=== PATIENT | male | born 1960 | race Caucasian/White ===

== ENCOUNTER 2022-02-12 12:23 | Outpatient (CLI) | payer MEDICAID, SELFPAY ==
--- OUTSIDE RECORDS SUMMARY | 2022-03-26 21:32 | XMS_ITS | Clinical Summary ---
:1960 Author Organization [facility] Address [address] [place] [id number] Care Team Providers Name Role Phone Marydebra Denise Watson PA-C Unavailable [phone] Juan Farias MD Primary Care Provider Dana Barry PA-C Unavailable [phone] Allergies Active Allergy Reactions Severity Noted [...] 1 tablet by 0 Active mouth daily [id number] Take 1 tablet by 0 Active it [...] ype Group Dates [place] [id number] 2021-Pres [phone] [address] [address] Medicaid ent 00 [place] [id number] ([address]) [place] [id number] Advance Directives For more information, please contact: [phone] Latest Code Status on File Code Status Date Activated Date Inactivated Comments Full Code 12/04/2021 3:46 PM 2021 1:02 PM All basic an d advanced life-sustaining interventions are performed as alexandru ropriate Question Answer Comments Code status determined by: Discussion with patient/ legal de cision maker Care Teams Tank 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
--- OUTSIDE RECORDS SUMMARY | 2022-03-26 21:32 | XMS_ITS | Encounter Summary ---
:1960 Author Organization [facility] Address [address] [place] [address] Care Team Providers Name Role Phone Denise Connell PA-C Unavailable [phone] Denise Connell PA-C Unavailable Juan Farias MD Primary Care Provider Reason for Visit Reason Comments Chest Pain Auth/Cert Specialty Diagnoses / Procedures Referred By Contact Refer red To Contact Med Surg Diagnoses Alcoholic ketoacidosis Alcoholic ketoacidosis 5 Medical Surgical [address] [place], [place] [address] Phone: Fax: Referral ID Status Reason Start Date Expiration Date Visits Requ ested Visits Authorized [id number] 1 1 Encounter Details Date Type Department Care Team Description 12/04/2021 - [facility] Jason Orozco MD [facility] [address] [place] [address] Alcoholic gastritis without bleeding, un specified chronicity (Primary Dx); 2021 Encounter [facility] Rodger Mantilla MD [address] [place] [address] Alcoholic ketoacidosis; Surgical Sprain of left ankle, unspec ified ligament, initial encounter [address] [place] [phone] Social History Tobacco Use Types Packs/Day Years [...] Ceballos MD - 2021 9:19 AM CDT [facility] Discharge Summary Name: Juan Pablo Brown Date of : 1960 Age: [age] year old Date of Discharge: 2021 Date of Admission: 12/04/2021 Primary Care Provider: Juan Farias Discharge Physician: Ronnie Ceballos MD Discharging Service: Hospitalist Hospital Course/Discharge Diagnoses: Juan Pablo Brown is a 60 year old male with past medical history including alcohol abuse, hypertension, hypercholesteremia who presented to [facility] on 12/04/2021 with abdominal pain associated with [...] your medicines These medications were sent to [facility] [address] [address] ?? omeprazole [address] capsule Some [...] EXAM: CT ABDOMEN PELVIS W CONTRAST LOCATION: [facility] DATE/TIME: 12/04/2021 9:52 AM INDICATION: abdominal [...] Take 81 mg by mouth 0 daily Iqlhgowjj-Typkjabrdsa-Pcs Take 1 tablet by 0 D (OSTEO [...] with mobility and cares and works making [email or web address] General Information Onset of Illness/Injury or Date of Surgery 12/04/21 Referring Physician Rodger Mantilla MD Patient/Family Therapy Goals Statement (PT) return home with parents Pertinent History of Current Problem (include personal factors and/or comorbidities that impact the POC) per chart: 60 year old male with past medical history including alcohol abuse, hypertension, hypercholesteremia who presented to [facility] on 12/04/2021 with abdominal pain associatedwith nausea [...] 11:09 AM CDT Hospitalist Medicine Progress Note [facility] Kelvin Ceballos MD 12/07/2021 Juan Pablo Brown is a 60 year old male with past medical history including alcohol abuse, hypertension, hypercholesteremia who presented to [facility] on 12/04/2021 with abdominal pain associated with [...] Patient . Kelvin Ceballos MD Hospitalist Service [facility] Interval History I assumed care today, still [...] Left ankle tender laterally with inward rotation FREIGHT CONDUCTOR: Alert, Oriented x 3, Moving all the [...] - pt will take a taxi to [place] [address] in [place] where his car is. Private pay costs [...] available as needed until discharge. ELVA Conklin, [facility] Inpatient Care Coordination [facility] [phone], LD - 12/06/2021 9:30 [...] home: regular diet - Typical food/fluid intake [employer]: pt reports being unable to consume much for the past 1 week, endorses nausea and vomiting and inability to consume even water for the past 2-3 days [employer]. - Supplements: none - Chewing/swallowing difficulty: none [...] Dosing Weight 83.2 kg Estimated Energy Needs: 7217-9465 kcals (25-30 Kcal/Kg) Justification: maintenance Estimated Protein [...] [address] RD, ELLIOTT Clinical Dietitian 3rd floor/ICU: [phone] All other floors: [phone] Weekend/holiday: [phone] Office: [phone] Rodger Mantilla MD - 12/05/2021 12:23 PM CDT Hospitalist Medicine Progress Note [facility] Juan Pablo Brown is a 60 year old gentleman with alcohol abuse, hypertension, hypercholesteremia whocame in with abdominal pain associated with nausea and vomiting and was diagnosed with acute pancreatitis with elevated lipase of 411 CT scan showing thickness of the visualized distal esophagus, stranding around the pancreatic head public health representative of acute pancreatitis. There was diffuse [...] discomfort ECG shows changes nonspecific for acute IN nevertheless there is progressive loss of R [...] Patient . Rodger Mantilla MD Hospitalist Service [facility] Interval History Symptoms Patient's abdominal pain is [...] decreased LOWER LIMBS: no Pedal Edema Bilaterally FREIGHT CONDUCTOR: Alert, Oriented x 3, Moving all the [...] Mantilla MD - 12/04/2021 10:[address] [facility] History and Physical - Hospitalist Service Date [...] discomfort ECG shows changes nonspecific for acute IN nevertheless there is progressive loss of R [...] the Patient. Rodger Mantilla MD Hospitalist Service [facility] Securely message with the [employer] Console (learn more here) Text page via [employer] Paging/Directory Chief Complaint Chest and abdominal pain [...] Prescriptions Last Dose Informant Patient Reported? Taking? Tjcrbwpwo-Aenmyymfoqz-Zip D (OSTEO BI-FLEX ONE PER DAY PO) [...] Positive LOWER LIMBS: no Pedal Edema Bilaterally FREIGHT CONDUCTOR: Alert, Oriented x 3, Moving all the [...] EXAM: CT ABDOMEN PELVIS W CONTRAST LOCATION: [facility] DATE/TIME: 12/04/2021 9:52 AM INDICATION: abdominal [...] Communication Assessment Patient's communication style: spoken language (Malay or Bilingual) Hearing Difficulty or Deaf: no [...] Status: Current Concern Values/Beliefs: Spiritual, Cultural Beliefs, Anabaptism Practices, Values that affect care: Additional Information: Met with pt to introduce self/role. Pt reports he has BCBS through his previous employer [employer]? He did not have any insurance cards with him for me to verify. But then he also mentioned he would need to contact [facility] to pay for this hospital stay, even though he is reporting he does not receive any services through the [facility]. I LVM for financial counselors to look [...] SW if other needs/cocnerns arise. Miriam STEVENSON, [facility] Inpatient Care Coordination [facility] [phone] documented in this encounter ED Notes Saira Tapia RN - 12/04/2021 10:36 AM CDT [facility] ED Nurse Handoff Report Juan Pablo Brown is a 60 year old male ED Chief complaint: Chest Pain . ED Diagnosis: Final diagnoses: Alcoholic ketoacidosis Allergies: Allergies Allergen Reactions ??? Lisinopril Kidney dysfunction and hyperkalemia Code Status: Full Code Activity level - Baseline/Home: Independent. Activity Level - Current: Stand by Assist. Lift room needed: No. Bariatric: No Director [place] [employer] Needed: No Isolation: No. Infection: Not Applicable. [...] his baseline. Emesis x2 days. Stay at [facility] 6. EKG SR. 4 mg ODT zofran [...] shortness of breath. He stays at a [facility] 6. EMS gave him Jackie. Review of Systems Respiratory: Negative for shortness of breath. Cardiovascular: Positive for chest pain. Gastrointestinal: Positive for abdominal distention and vomiting. All other systems reviewed and are negative. Allergies: Lisinopril Medications: amLODIPine (NORVASC) 10 MG tablet aspirin 81 MG tablet atorvastatin (LIPITOR) 40 MG tablet Vdffrjyti-Wfyqadctuhi-Npd D (OSTEO BI-FLEX ONE PER DAY PO) [...] Pressure Ventricular Rate 119 Atrial Rate 117 UT Interval 122 QRS Duration 94 QT 328 QTc 461 P Isle 35 R AXIS -19 T Isle 77 Interpretation ECG Sinus tachycardia with frequent [...] Outcome Evaluation: Assumed care of pt from 1723-9656. AVSS. A&Ox4. Apical pulse regular. Lungs CTA. [...] Pertinent assessments: Assumed care of pt from 7205-5395. AVSS. A&Ox4. Apical pulse regular. Lungs CTA. [...] goal(s). See goals on Care Plan in [facility] electronic health record for goal details. Goals [...] Pertinent assessments: Assumed care of pt from 6147-8881. VSS. A&O but forgettful. Apical pulse regular. [...] even water for the past 2-3 days [employer]. Plan to follow peripherally for diet advancement. Kenzie Real. CORRINE [place], [place] Clinical Dietitian 3rd floor/ICU: [phone] All other floors: [phone] Weekend/holiday: [phone] Office: [phone] Plan of Care - Kassandra Gillette RN [...] distal esophagus, stranding around the pancreatic head public health representative of acute pancreatitis. Patient requires inpatient [...] section 70.4. Sincerely, NOA CHAPARRO MD System Solar Installation ManagerBiochemistry Teacher [facility]. Plan of Care - Kassandra Gillette [...] withdrawal. Pharmacy-Admission Medication History - Debbie Alicea [facility] - 12/04/2021 5:27 PM CDT Admission medication history interview status for this patient is complete. See [facility] admission navigator for allergy information, prior to admission medications and immunization status. Medication history interview done, indicate source(s): Patient Medication history resources (including written lists, pill bottles, clinic record):None Pharmacy: [facility] pharmacy Changes made to [employer] medication list: Added: none Changed: omeprazole Reported as Not Taking: none Removed: magnesium Actions taken by pharmacist (provider contacted, etc):None Additional medication history information:None Medication reconciliation/reorder completed by provider prior to medication history? Y (Y/N) Prior to Admission medications Medication Sig Last Dose Taking? Auth Provider Fdc End Date amLODIPine (NORVASC) 10 MG tablet [...] Unknown time Yes Denise Connell PA-C Yes Cqgvczybp-Eqruxyeqhyz-Tha D (OSTEO BI-FLEX ONE PER DAY PO) [...] Address City/[facility]/[place] [phone] Care Lab [address] Lab (1st floor, no room number) [...] Organization Address City/State/[place] [address] Care Lab [address] Lab (1st floor, no room number) [...] Address City/State/ZIP Code [place] [address] Care Lab [address] Lab (1st floor, no room number) [...] Address City/[facility]/ZIP Code [place] [address] Care Lab [address] Lab (1st floor, no room number) [...] Address City/State/ZIP Code [place] [phone] Care Lab [address] Lab (1st floor, no room number) (ABNORMAL) CBC with platelets (12/07/2021 5:37 AM CDT) [facility] gist Method Time Signature WBC [...] Address City/State/ZIP Code [place] [phone] Care Lab [address] Lab (1st floor, no room number) (ABNORMAL) Comprehensive metabolic panel (12/07/2021 5:37 AM CDT) [facility] Method Time Signature Sodium 135 (L) [...] and gender (Yuli et al., NEJM, DOI: 10.1056/[id number]) Specimen Anatomical Collection Method / Collection Time Recei rehana Time (Source) Location / Volume Laterality Blood STRUCTURE OF LEFT Venipuncture / 12/07/2021 5:37 12/07 5:43 UPPER LIMB / Unknown AM CDT AM CDT Unknown Rodger Mantilla MD LAB - BLOOD ORDERABLES Performing Organization Address City/[facility]/Z[place] [address] Care Lab [address] Lab (1st floor, no room number) [...] Address City/[facility]/[place] [address] Care Lab [address] Lab (1st floor, no room number) [...] Address City/[facility]/[place] [address] Care Lab [address] Lab (1st floor, no room number) [...] Address City/State/ZIP Code [place] [address] Care Lab [address] Lab (1st floor, no room number) [...] Address City/State/ZIP Code [place] [address] [facility] [address] [facility], no room number) (ABNORMAL) [...] and gender (Yuli et al., NE, DOI: 10.1056/[id number]) Specimen Anatomical Collection Method / Collection Time Recei rehana Time (Source) Location / Volume Laterality Blood STRUCTURE OF RIGHT Venipuncture / 12/06/2021 6:26 11/22 7:05 HAND / Unknown Unknown AM CDT AM CDT Rodger Mantilla MD LAB - BLOOD ORDERABLES Performing Organization Address City/State/[place] [address] Care Lab [address] Lab (1st floor, no room number) [...] Organization Address City/State/ZIP Code Phon e Number [facility] [place] [address] Care Lab [address] Lab (1st floor, no room number) [...] Address City/[facility]/ZIP Code [place] [address] Care Lab [address] Lab (1st floor, no room number) [...] Address City/State/ZIP Code [place] [address] Care Lab [address] Lab (1st floor, no room number) [...] Address City/[facility]/[place] [address] Care Lab [address] Lab (1st floor, no room number) [...] Address City/[facility]/[place] [address] Care Lab [address] Lab (1st floor, no room number) [...] Address City/[facility]/[place] [address] Care Lab [address] Lab (1st floor, no room number) [...] BLOOD ORDERABLES Performing Organization Address City/[facility]/ZIP [facility] [place] [address] Care Lab [address] Lab (1st floor, no room number) [...] - BLOOD ORDERABLES Performing Organization Address [facility] [place] [address] Care Lab [address] Lab (1st floor, no room number) [...] Address City/[facility]/ZIP Code [place] [address] Care Lab [address] Lab (1st floor, no room number) (ABNORMAL) CBC with platelets (12/05/2021 6:51 AM CDT) [facility] Method Time Signature WBC Count 7.0 [...] Address City/State/ZIP Code [place] [address] Care Lab [address] Lab (1st floor, no room number) (ABNORMAL) Comprehensive metabolic panel (12/05/2021 6:51 AM CDT) [facility] Method Time Signature Sodium 136 136 [...] and gender (Yuli et al., NEJM, DOI: 10.1056/[id number]) Specimen Anatomical Collection Method / Collection Time Recei rehana Time (Source) Location / Volume Laterality Blood STRUCTURE OF RIGHT Venipuncture / 12/05/2021 6:51 11/22 6:55 HAND / Unknown Unknown AM CDT AM CDT Rodger Mantilla MD LAB - BLOOD ORDERABLES Performing Organization Address City/[facility]/[place] [address] Care Lab [address] Lab (1st floor, no room number) [...] Address City/[facility]/[place] [address] Care Lab [address] Lab (1st floor, no room number) [...] Address City/[facility]/[place] [address] Care Lab [address] Lab (1st floor, no room number) [...] City/State/ZIP Code [place] [address] Care Lab [address] Lab (1st floor, no room number) [...] 12/04/2021 LABORATORY mg/dL 11:34 PM CDT Specific [place] 1.023 1.003 - 12/04/2021 RH LABORATOR Y [...] Organization Address City/State/[place] [address] Care Lab [address] Lab (1st floor, no room number) [...] LAB - URINE ORDERABLES Performing Organization Address City/[facility]/[place] [address] Care Lab [address] Lab (1st floor, no room number) [...] Address City/[facility]/[place] [address] Care Lab [address] Lab (1st floor, no room number) [...] Address City/[facility]/[place] [address] Care Lab [address] Lab (1st floor, no room number) [...] es age and gender (Yuli et al., [facility], DOI: 10.[facility]6/[id number]) Calcium 8.5 (L) 8.6 - 10.0 mg/dL 12/04/2021 8:12 PM CDT [facility] LABORATORY Specimen Anatomical Collection Method / Collection Time Recei rehana Time (Source) Location / Volume Laterality Blood STRUCTURE OF RIGHT Venipuncture / 12/04/2021 7:44 08/06/2021 7:47 UPPER LIMB / Unknown PM CDT PM CDT Unknown Rodger Mantilla MD LAB - BLOOD ORDERABLES Performing Organization Address City/State/ZIP Code [place] [address] Care Lab [address] Lab (1st floor, no room number) [...] Address City/State/ZIP Code [place] [address] Care Lab [address] Lab (1st floor, no room number) [...] City/State/ZIP Code Phon e Number [place] [address] Lab [address] [facility] [address] Building, Room 3-580 (ABNORMAL) Creatinine (12/04/2021 4:13 PM CDT) athologist Signature Creatinine 1.22 (H) 0.67 - 12/04/2021 LABORATORY 1.17 mg/dL 4:48 PM CDT GFR Estimate 69 >60 12/04/2021 LABORATORY mL/min/1.7 4:48 PM CDT 3m2 Comment: Effective April 13, 2021 eGF Rcr in adults is calculated using the 2020 CKD-EPI creatinine equation which includ es age and gender (Yuli et al., [facility], DOI: 10.1056/[id number]) Specimen Anatomical Collection Method / Collection Time Recei rehana Time (Source) Location / Volume Laterality Blood STRUCTURE OF RIGHT Venipuncture / 12/04/2021 4:13 11/22 4:24 UPPER LIMB / Unknown PM CDT PM CDT Unknown Rodger Mantilla MD LAB - BLOOD ORDERABLES Performing Organization Address City/State/ZIP Code [place] [address] Care Lab [address] Lab (1st floor, no room number) [...] EXAM: CT ABDOMEN PELVIS W CONTRAST LOCATION: [facility] DATE/TIME: 12/04/2021 9:52 AM INDICATION: [...] EXAM: CT ABDOMEN PELVIS W CONTRAST LOCATION: [facility] DATE/TIME: 12/04/2021 9:52 AM INDICATION: [...] the Xpert Xpress SARS-CoV-2 Assay on the [employer]. A dditional information about this [...] COVID-19. This test was validated by the [facility]. This laboratory is certified under the Clinical Laboratory Improvement Amendments of 1988 (CLIA-88) as qualified to perform high complexity laboratory testing. Jason Orozco MD LAB - MICRO GENERAL ORDERABL ES Performing Organization Address City/State/ZIP Code [place] [address] Care Lab [address] Lab (1st floor, no room number) [...] - BLOOD ORDERABLES Performing Organization Address [facility]/Z[place] [address] Care Lab [address] Lab (1st floor, no room number) [...] Address City/State/ZIP Code [place] [address] Care Lab [address] Lab (1st floor, no room number) [...] Address City/[facility]/ZIP Code [place] [address] Care Lab [address] Lab (1st floor, no room number) [...] City/State/ZIP Code [place] [address] Care Lab [address] Lab (1st floor, no room number) [...] 8:23 Unknown Unknown AM CDT AM CDT Jaosn Orozco MD LAB - BLOOD ORDERABLES Performing Organization Address City/State/ZIP Code [place] [address] Care Lab [address] Lab (1st floor, no room number) [...] Address City/[facility]/ZIP Code [place] [address] Care Lab [address] Lab (1st floor, no room number) [...] Address City/[facility]/Z[place] [address] Care Lab [address] Lab (1st floor, no room number) [...] - BLOOD ORDERABLES Performing Organization Address [facility]/Z[place] [address] Care Lab [address] Lab (1st floor, no room number) [...] Address City/[facility]/Z[place] [address] Care Lab [address] Lab (1st floor, no room number) [...] and gender (Yuli et al., NEJM, DOI: 10.1056/[id number]) Specimen Anatomical Collection Method / Collection Time Recei rehana Time (Source) Location / Volume Laterality Blood VENOUS LINE / Venipuncture / 12/04/2021 8:14 2 8:22 Unknown Unknown AM CDT AM CDT Jason Orozco MD LAB - BLOOD ORDERABLES Performing Organization Address City/State/ZIP Code [place] [address] Care Lab [address] Lab (1st floor, no room number) EKG 12-lead, tracing only (12/04/2021 8:01 AM CDT) Component Value Ref Range Test Analysis Performed Pathologis t Method Time At Signature Systolic Blood mmHg RADIOLOGY Pressure RESULTS Diastolic Blood mmHg RADIOLOGY Pressure RESULTS Ventricular Rate 119 BPM RADIOLOGY RESULTS Atrial Rate 117 BPM RADIOLOGY RESULTS UT Interval 122 ms RADIOLOGY RESULTS QRS Duration 94 ms RADIOLOGY RESULTS QT 328 ms RADIOLOGY RESULTS QTc 461 ms RADIOLOGY RESULTS P Isle 35 degrees RADIOLOGY RESULTS R AXIS -19 degrees RADIOLOGY RESULTS T Isle 77 degrees RADIOLOGY RESULTS Interpretation Undetermined rhythm [...] by - EMERGENCY TARUN Mora, PHYSICIAN ([id number]), purchase request editor TATA ROMERO ([id number]) on 12/05/2021 9:26:19 AM Specimen Anatomical Collection [...] ER (KLOR-CON M) CR tablet 40 mEq ([facility] ED) 0828 (Given - Provider: Mable [...] after each naloxone dose. Consider transfer to [facility] if patient respiratory parameters hav e not [...] documented as of this encounter Care Teams Bicycle Racer Relationship Specialty Start Date End Date Juan Farias, PCP - General Cardiovascular Disease 12/04/21 [address] [place] [id number] Denise Connell Physician D[place] Cardiovascular Disease 08/12/21 MARIETTA Watson [address] [place] [id number] Denise Connell Assigned Heart and 08/22/21 01/14/22 MARIETTA Watson Vascular Provider [address] [place] [id number] documented as of this encounter
--- OUTSIDE RECORDS SUMMARY | 2022-03-26 21:32 | XMS_ITS | Encounter Summary ---
:1960 Author Organization [place] Address [address] [place] [address] Care Team Providers Name Role Phone Denise Connell PA-C Unavailable [phone] Denise Connell PA-C Unavailable [phone] Juan Farias MD Primary Care Provider Reason for Referral Consultation (Routine: Next available opening) - Pending Review Specialty Diagnoses / Procedures Referred By Contact Refer red To Contact Cardiovascular Disease Diagnoses Essential hypertension Dana Barry PA-C [address] [place] [address] Referral ID Status Reason Start Date Expiration Date Visits V isits Requested Authorized [id number] Pending 01/05/2022 01/05/2023 1 1 Review Consultation (Routine: Next available opening) - Pending Review Specialty Diagnoses / Procedures Referred By Contact Refer red To Contact Cardiovascular Disease Diagnoses Essential hypertension Dana Barry PA-C [address] [place] [address] Referral ID Status Reason Start Date Expiration Date Visits V isits Requested Authorized [id number] Pending 01/05/2022 01/05/2023 1 1 Review Reason for Visit Reason Comments Follow Up Follow up with EAN Huynh for work release form per scheduling noteRecent hospital [facility] for alcohol gastritis (Routine) - Closed Specialty Diagnoses / Procedures Referred By Contact Refer red To Contact Diagnoses Mixed hyperlipidemia Juan Farias MD [address] [place] [address] Referral ID Status Reason Start Date Expiration Date Visits Requ ested Visits Authorized [id number] Closed 01/30/2020 01/29/2021 1 1 Encounter Details Date Type Department Care Team Description 01/05/2022 Office Visit [facility] Juan Farias MD [address] [place] [id number] Mixed hyperlipidemia; Heart Clinic Dana Barry PA-C [address] [place] [address] Essential hypertension [address] [address] Social History Tobacco Use Types [...] 3:15 PM CDT .Thanks for coming into [facility] Heart clinic today. We discussed: our goal [...] Connell PA-C in about a month in [place] for a blood pressure check. We'll have you see Dr. Farias in 6 months. Please call my nurse Mai at Reminder: Please bring in all current medications, over the counter supplements and vitamin bottles to your next appointment. documented in this encounter Progress Notes Dana Barry PA-C - 01/05/2022 3:15 PM CDT [id number] HPI and Plan: See dictation Orders this [...] by mouth daily 90 tablet 2 ??? Gmmxnipqi-Mmhqnowsdlf-Noy D (OSTEO BI-FLEX ONE PER DAY PO) [...] Other Topics Concern ??? Parent/sibling w/ CABG, [place] or angioplasty before 65F 55M? No ??? [...] (H) 03/14/2009 CC Juan Farias MD [address] [facility] [address] [place] [address] Dana Barry PA-C - 01/05/2022 2:52 PM CDT Service Date: 01/05/2022 PRIMARY BRANCH CREDIT COUNSELOR: Juan Farias MD REASON FOR VISIT: Hypertension. [...] with last LDL 86, HDL 50, total [id number]. 3. Recent acute pancreatitis, resolved per primary care provider. Thank you for allowing me to participate in this patient's care. I completed the paperwork for his employer and I would be happy to work with him to get his blood pressure to goal. To make sure that happens, we will have him follow up in 1 month with Ms. Connell in [place] where he typically sees her and will work on getting him back in with his primary doctor, Dr. Farias, in the spring. Dana Barry PA-C MT: JOELLE Name: ELIJAH BROWN Account: [id number] : 1960 Service Date: 01/05/2022 Document: [id number] documented in this encounter Plan of Treatment [...] documented as of this encounter Care Teams Crop Or Grain Farmer Relationship Specialty Start Date End Date Juan Farias, PCP - General Cardiovascular Disease 12/04/21 [address] [place] 672[address] Denise Connell Physician Fast Brim Pouncer Cardiovascular Disease 08/12/21 MARIETTA Watson [address] [place] [address] Denise Connell Assigned Heart and 08/22/21 01/14/22 MARIETTA Watson Vascular Provider [address] [place] [address] documented as of this encounter
--- OUTSIDE RECORDS SUMMARY | 2022-03-26 21:32 | XMS_ITS | Encounter Summary ---
:1960 Author Organization [facility] Address [address] [place] [address] Care Team Providers Name Role Phone Denise Connell PA-C Unavailable [phone] Denise Connell PA-C Unavailable [phone] Juan Farias MD Primary Care Provider Reason for Visit Reason Onset Date Comments Refill Request 12/17/2021 lipitor Encounter Details Date Type Department Care Team Description 12/17/2021 Refill [facility] Denise Connell Re fill Request (lipitor) Clinic Annika Watson PA-C [address] [facility] [address] [place] [address] [address] [place] [address] [place] [address] (Wo rk) Social History [...] Weiner RN - 12/17/2021 9:10 AM CDT [facility] Cardiology Refill Guideline reviewed. Refill meets criteria. documented in this encounter Plan of Treatment Not on filedocumented as of this encounter Visit Diagnoses Diagnosis Mixed hyperlipidemia documented in this encounter Additional Health Concerns Infection Onset Date Last Indicated Resolved Time MRSA 05/13/2021 05/13/2021 documented as of this encounter Care Teams Right Of Way Agent Relationship Specialty Start Date End Date Juan Farias, PCP - General Cardiovascular Disease 12/04/21 [address] [place] 632[address] Denise Connell Physician Browning Processor Cardiovascular Disease 08/12/21 MARIETTA Watson [address] [place] [address] Denise Connell Assigned Heart and 08/22/21 01/14/22 MARIETTA Watson Vascular Provider [address] [place] [id number] documented as of this encounter
--- OUTSIDE RECORDS SUMMARY | 2022-03-26 21:32 | XMS_ITS | Encounter Summary ---
:1960 Author Organization [place] Address [address] [place] [address] Care Team Providers Name Role Phone Denise Connell PA-C Unavailable [phone] Denise Connell PA-C Unavailable [phone] Juan Farias MD Primary Care Provider Encounter [...] documented as of this encounter Care Teams Program Director/Morning Show Host Relationship Specialty Start Date End Date Juan Farias, PCP - General Cardiovascular Disease 12/04/21 [address] [place] 7195[address] Denise Connell Physician Cottage Attendant Cardiovascular Disease 08/12/21 MARIETTA Watson [address] [place] 419[address] [place], Denise Assigned Heart and 08/22/21 01/14/22 MARIETTA Watson Vascular Provider [address] [place] 824255 documented as of this encounter
--- OUTSIDE RECORDS SUMMARY | 2022-03-26 21:32 | XMS_ITS | Encounter Summary ---
:1960 Author Organization [facility] Address [address] [place] [address] Care Team Providers Name Role Phone Denise Connell PA-C Unavailable [phone] Denise Connell PA-C Unavailable [phone] Juan Farias MD Primary Care Provider Encounter [...] documented as of this encounter Care Teams Odd Bundle Worker Relationship Specialty Start Date End Date Juan Farias, PCP - General Cardiovascular Disease 12/04/21 [address] [place] [address] Denise Connell Physician Supervisor Fish Processing Cardiovascular Disease 08/12/21 MARIETTA Watson [address] [place] 7498[address] [place], Denise Assigned Heart and 08/22/21 01/14/22 MARIETTA Watson Vascular Provider [address] [place] [id number] documented as of this encounter
--- OUTSIDE RECORDS SUMMARY | 2022-03-26 21:33 | XMS_ITS | Encounter Summary ---
:1960 Author Organization [place] Address [address] [place] [address] Care Team Providers Name Role Phone No Ref-Primary, Physician Primary Care Provider [phone] Encounter Details Date Type Department Care [...] MRSA-Contact IsolationComment: 0 04/26/2021 11:03 AM ASSEMBLER FISHING FLOATS Infection erroneous documented as of this encounter Care Teams Webbing Weaver Relationship Specialty Start Date End Date No Ref-Primary, Physician PCP - General 07/03/14 12/03/21 documented as of this encounter
--- OUTSIDE RECORDS SUMMARY | 2022-03-26 21:33 | XMS_ITS | Encounter Summary ---
:1960 Author Organization [place] Address [address] [place] [address] Care Team Providers Name Role Phone No Ref-Primary, Physician Primary Care Provider [phone] Reason for Visit Reason Onset Date Comments Refill Request 04/23/2019 Amlodipine 10mg Encounter Details Date Type Department Care Team Description 04/23/2019 Refill [facility] Heart Jarrett, Juan Alegre, Refill Request Clinic Annika HERBERT (Amlodipine 10mg) 6[address] [facility] [address] [facility] [address] [place] [address] [place] 844165 ([facility]) Social History Tobacco Use Types Packs/Day Years [...] Time MRSA-Contact IsolationComment: 0 04/26/2021 11:03 AM BI MANAGER Infection erroneous documented as of this encounter Care Teams Sales Development Associate Relationship Specialty Start Date End Date No Ref-Primary, Physician PCP - General 07/03/14 12/03/21 documented as of this encounter
--- OUTSIDE RECORDS SUMMARY | 2022-03-26 21:33 | XMS_ITS | Encounter Summary ---
:1960 Author Organization [place] Address [address] [place] [address] Care Team Providers Name Role Phone No Ref-Primary, Physician Primary Care Provider [phone] Denise Connell-C Unavailable [phone] Denise Connell-C Unavailable [phone] Juan Farias MD Primary Care Provider Dana Barry PA-C Unavailable [phone] Reason for Visit Reason Onset Date Comments Patient/info Update 08/12/2021 Pt asked to come in sooner Encounter Details Date Type Department Care Team Description 08/12/2021 Telephone [facility] Juan Farias, Patient/info Update (Pt Clinic Annika HERBERT asked to come in [address] [facility] [address] [facility] soon er) [facility] [address] [place] [address] [place] [address] Social History Tobacco Use [...] is schedule for his labs Monday at [facility] and a FUw/ RAN per patient request. He stated he needs to be seen BUNNY & Dr Farias is out until Dec at [facility]; his BP is 3 points too high [...] documented as of this encounter Care Teams Display Maker Relationship Specialty Start Date End Date No Ref-Primary, PCP - General 07/03/14 12/03/21 Physician Juan Farias, PCP - General Cardiovascular Disease 12/04/21 [address] [place] 1878[address] Denise Connell Physician Dry Cell Tester Cardiovascular Disease 08/12/21 MARIETTA Watson [address] [place] [address] Denise Connell Assigned Heart and 08/22/21 01/14/22 MARIETTA Watson Vascular Provider [address] [place] [address] Dana Barry Assigned Heart and 01/15/22 MARIETTA Teague Vascular Provider [address] [place] 2599[address] documented as of this encounter
--- OUTSIDE RECORDS SUMMARY | 2022-03-26 21:33 | XMS_ITS | Encounter Summary ---
:1960 Author Organization [place] Address [address] [place] [address]. [place] [address] Care Team Providers Name Role Phone No Ref-Primary, Physician Primary Care Provider [phone] Feliz Roy MD Unavailable Reason for Visit Reason Comments Follow Up 1 month FU Cardiac testing US 02/05/2020 Results lab 02/05/2020 Encounter Details Date Type Department Care Team Description 02/24/2020 Virtual Visit [facility] Feliz Roy Essential hypertension (Primary Dx); Heart Clinic Annika Alegre MD Mixed hyperlipidemia 6[address] [facility] 6[address] [facility] [address] [place] [address] [place] [id number] Social History Tobacco Use Types Packs/Day Years [...] with No / Unsure 02/24/2020 3:19 PM GROUP DYNAMICS INSTRUCTOR someone who was confirmed or suspected to have Coronavirus / COVID-19? documented as of this encounter Last Filed Vital Signs Vital Sign Reading Time Taken Comments Blood Pressure 133/89 02/24/2020 3:21 PM patient repor jacques GROUP DYNAMICS INSTRUCTOR Pulse 79 02/24/2020 3:21 PM patient repor jacques GROUP DYNAMICS INSTRUCTOR Temperature - - Respiratory Rate - - Oxygen Saturation - - Inhaled Oxygen Concentration - - Weight 88.5 kg (195 lb) 02/24/2020 3:21 PM patient repo rted GROUP DYNAMICS INSTRUCTOR Height 172.7 cm (5' 7.99) 02/24/2020 3:21 PM GROUP DYNAMICS INSTRUCTOR Body Mass Index 29.66 02/24/2020 3:21 PM GROUP DYNAMICS INSTRUCTOR documented in this encounter Progress Notes Feliz Roy MD - 02/24/2020 4:42 PM CST Service Date: 02/24/2020 VIDEO VISIT HISTORY OF PRESENT ILLNESS: I had the opportunity to see Mr. Elijah Brown in Cardiology Clinic today at [facility] Cardiology in [place] for reevaluation of hypertension and dyslipidemia. I [...] a day if needed. FELIZ ROY MD, [facility] MT: JOELLE Name: ELIJAH BROWN Account: [id number] : 1960 Service Date: 02/24/2020 Document: [id number] P DYNAMICS INSTRUCTOR Feliz Roy MD - 02/24/2020 4:00 PM [...] be resent to: Text to cell phone: [phone] Will anyone else be joining your video [...] usual. DORA Goldsmith Telephone number of patient: [phone] Video-Visit Details Type of service: Video Visit DOX Video Start Time: 4:22 PM Video End Time: 4:43 PM Originating Location (pt. Location): Home Distant Location (provider location): [facility] Platform used for Video Visit: FELIZ [...] by mouth daily 90 tablet 0 ??? Nmfdbkgro-Xkdajgzonzt-Jrx D (OSTEO BI-FLEX ONE PER DAY PO) [...] on phone: None Gets together: None Attends shinto service: None Active member of club or [...] No referring provider defined for this encounter. P DYNAMICS INSTRUCTOR documented in this encounter Plan of Treatment Not on filedocumented as of this encounter Visit Diagnoses Diagnosis Essential hypertension - Primary Unspecified essential hypertension Mixed hyperlipidemia documented in this encounter Additional Health Concerns Infection Onset Date Last Indicated Resolved Time MRSA-Contact IsolationComment: 0 04/26/2021 11:03 AM GROUP DYNAMICS INSTRUCTOR Infection erroneous documented as of this encounter Care Teams Toggle Press Operator Relationship Specialty Start Date End Date No Ref-Primary, Physician PCP - General 07/03/14 12/03/21 Feliz Roy MD Assigned Heart and Vascular 02/14/2010/03 [address] Provider [place] [address] documented as of this encounter
--- OUTSIDE RECORDS SUMMARY | 2022-03-26 21:33 | XMS_ITS | Encounter Summary ---
:1960 Author Organization [place] Address [address] [place] [address] Care Team Providers Name Role Phone No Ref-Primary, Physician Primary Care Provider [phone] Encounter Details Date Type Department Care [...] Time MRSA-Contact IsolationComment: 0 04/26/2021 11:03 AM TRANSIT VEHICLE INSPECTOR Infection erroneous documented as of this encounter Care Teams Chief Medical Technologist Relationship Specialty Start Date End Date No Ref-Primary, Physician PCP - General 07/03/14 12/03/21 documented as of this encounter
--- OUTSIDE RECORDS SUMMARY | 2022-03-26 21:33 | XMS_ITS | Encounter Summary ---
:1960 Author Organization [place] Address [address] [place] [address] Care Team Providers Name Role Phone No Ref-Primary, Physician Primary Care Provider Encounter Details Date Type Department Care Team Description 01/27/2020 Orders Only [facility] Heart Elev ated fasting glucose; [facility] Hyperlipidemia LDL goal <100 ; [address] [facility] hypertension [address] [place] [address] Social History Tobacco Use Types [...] Signature Sodium 133 133 - 144 01/27/2020 [place] mmol/L 3:46 PM [facility] Potassium 3.7 3.4 - 5.3 01/27/2020 [place] mmol/L 3:46 PM [facility] Chloride 101 94 - 109 01/27/2020 [place] mmol/L 3:46 PM [facility] Carbon Dioxide 24 20 - 32 01/27/2020 [place] mmol/L 3:54 PM [facility] Anion Gap 8 3 - 14 01/27/2020 [place] mmol/L 3:54 PM [facility] Glucose 85 70 - 99 01/27/2020 [place] mg/dL 3:54 PM [facility] Comment: Fasting specimen Urea Nitrogen 13 7 - 30 mg/dL 01/27/2020 3:54 PM [facility] Creatinine 1.10 0.66 - 1.25 mg/dL 01/27/2020 3:54 PM [facility] GFR Estimate 74 >60 01/27/2020 3:54 PM [facility] mL/min/{1.73_m2} [facility] Comment: Non GFR Calc Starting 04/10/2018, serum creatinine ba sed estimated GFR (eGFR) will be calculated using the Chronic Kidney Dise [facility] Epidemiology Collaboration (CKD-EPI) equation. GFR Estimate If 86 >60 mL/min/{1.73_m2} 01/27/2020 3: 54 PM [facility] Comment: GFR Calc Starting 04/10/2018, serum creatinine ba sed estimated GFR (eGFR) will be calculated using the Chronic Kidney Dise [facility] Epidemiology Collaboration (CKD-EPI) equation. Calcium 8.8 8.5 - 10.1 mg/dL 01/27/2020 3:54 PM [facility] Specimen Anatomical Collection Method Collection Time Receive d Time (Source) Location / / Volume Laterality Blood specimen 01/27/2020 2:58 PM 020 3:03 (specimen) CDT PM CDT Juan Farias MD LAB - BLOOD ORDERABLES Performing Organization Address City/State/ZIP Code Phon e Number [place] [address] [place], [place] [address] [facility] [address] [place], [place] [address], [facility] [phone] (ABNORMAL) Lipid Profile (01/27/2020 2:58 PM CDT) athologist Signature Cholesterol 222 (H) <200 mg/dL 01/27/2020 [place] 3:54 PM [facility] Comment: Desirable: <200 mg/dl Triglycerides 99 <150 mg/dL 01/27/2020 3:54 PM CDT [facility] Comment: Fasting specimen HDL Cholesterol 87 >39 mg/dL 01/27/2020 3:54 PM [facility] LDL Cholesterol 115 (H) <100 mg/dL 01/27/2020 3:54 PM [facility] Comment: Above desirable: ??100-129 mg/dl Borderline High: ??130-159 mg/dL High: ? 160-189 mg/dL Very high: ? >189 mg/dl Non HDL Cholesterol 135 (H) <130 mg/dL 01/27/2020 3:54 PM CDT [facility] Comment: Above Desirable: ??130-159 mg/dl Borderline high: ??160-189 mg/dl High: ? 190-219 mg/dl Very high: ? >219 mg/dl Specimen Anatomical Collection Method Collection Time Receive d Time (Source) Location / / Volume Laterality Blood specimen 01/27/2020 2:58 PM 020 3:03 (specimen) CDT PM CDT Juan Farias MD LAB - BLOOD ORDERABLES Performing Organization Address City/State/ZIP Code Phon e Number [facility] [address] [place], [place] [address] [facility] [address] [place], [place] [address], [facility] [phone] ALT (01/27/2020 2:58 PM CDT) athologist Signature ALT 46 0 - 70 U/L 01/27/[address] [facility] 3:54 PM CDT HOSPITAL Specimen Anatomical Collection Method Collection Time Receive d Time (Source) Location / / Volume Laterality Blood specimen 01/27/2020 2:58 PM 020 3:03 (specimen) CDT PM CDT Juan Farias MD LAB - BLOOD ORDERABLES Performing Organization Address City/State/ZIP Code Phon e Number M [facility] [address] [place], [place] [address] [facility] [address] [place], [place] [address] [facility] [phone] (ABNORMAL) Hemoglobin A1c (01/27/2020 2:58 PM CDT) P athologist Signature Hemoglobin A1C 5.7 (H) 0 - 5.6 % 01/27/2020 [place] 4:00 PM CDT [facility] Comment: Normal <5.7% Prediabetes 5.7-6.4% ??Diab etes 6.5% or higher - adopted from ADA consensus guidelines. Specimen Anatomical Collection Method Collection Time Receive d Time (Source) Location / / Volume Laterality Blood specimen 01/27/2020 2:58 PM 020 3:03 (specimen) CDT PM CDT Juan Farias MD LAB - BLOOD ORDERABLES Performing Organization Address City/[facility]/ZIP Code Phon e Number M [facility] [address] [place] [address] [phone] [facility] [address] [place] [address], [facility] [phone] documented in this encounter Visit Diagnoses Diagnosis Elevated fasting glucose Impaired fasting glucose Hyperlipidemia LDL goal <100 Other and unspecified hyperlipidemia Essential hypertension Unspecified essential hypertension documented in this encounter Additional Health Concerns Infection Onset Date Last Indicated Resolved Time MRSA-Contact IsolationComment: 0 04/26/2021 11:03 AM VP DIGITAL MARKETING Infection erroneous documented as of this encounter Care Teams Tube Maker Relationship Specialty Start Date End Date No Ref-Primary, Physician PCP - General 07/03/14 12/03/21 documented as of this encounter
--- OUTSIDE RECORDS SUMMARY | 2022-03-26 21:33 | XMS_ITS | Encounter Summary ---
:1960 Author Organization [place] Address [address] [place] [address] Care Team Providers Name Role Phone No Ref-Primary, Physician Primary Care Provider [phone] Juan Farias MD Unavailable Reason for Visit Reason Onset Date Comments Refill Request 06/30/2021 Atorvastatin Encounter Details Date Type Department Care Team Description 06/30/2021 Refill [facility] Heart Juan Farias, Refill Request Clinic Annika HERBERT (Atorvastatin) [address] [place] [address] [place] [phone] (Wo rk) Social History Tobacco Use Types Packs/Day Years Used Date Smoking Tobacco: Never Smokeless Tobacco: Never Alcohol Use Standard Drinks/Week Comments No 0 (1 standard drink = 0.6 oz pure alcoho l) quit 5 years ago Sex Assigned at Date Recorded Not on file documented as of this encounter Miscellaneous Notes Telephone Encounter - Sloane Berumen LPN - 06/30/2021 9:18 AM CST [facility] Cardiology Refill Guideline reviewed. Medication does not meet criteria for refill due to JOEL 02/05/20, Last refill on 05/05/21 letter was sent. no appt is made. . Messaged to providers team for further review. L ACTIVITY ADJUDICATOR documented in this encounter Plan of Treatment Not on filedocumented as of this encounter Visit Diagnoses Diagnosis Mixed hyperlipidemia documented in this encounter Additional Health Concerns Infection Onset Date Last Indicated Resolved Time MRSA 05/13/2021 05/13/2021 documented as of this encounter Care Teams Paper Sorter And Counter Relationship Specialty Start Date End Date No Ref-Primary, Physician PCP - General 07/03/14 12/03/21 Juan Farias MD Assigned Heart and Vascular 04/04/21 [address] Provider [place] [id number] documented as of this encounter
--- OUTSIDE RECORDS SUMMARY | 2022-03-26 21:33 | XMS_ITS | Encounter Summary ---
:1960 Author Organization [facility] Address [address] [place] [address] Care Team Providers Name Role Phone No Ref-Primary, Physician Primary Care Provider [phone] Reason for Visit Reason Onset Date Comments Refill Request 07/18/2019 atorvastatin Encounter Details Date Type Department Care Team Description 07/18/2019 Refill [facility] Jarrett, Juan Alegre, Refill Request Clinic Annika HERBERT (atorvastatin) 6[address] [facility] 6[address] [facility] [address] [place] [address] [place] [id number] ( rk) Social History Tobacco Use Types [...] Time MRSA-Contact IsolationComment: 0 04/26/2021 11:03 AM SPACE BUYER Infection erroneous documented as of this encounter Care Teams Detasseler Relationship Specialty Start Date End Date No Ref-Primary, Physician PCP - General 07/03/14 12/03/21 documented as of this encounter
--- OUTSIDE RECORDS SUMMARY | 2022-03-26 21:33 | XMS_ITS | Encounter Summary ---
:1960 Author Organization [place] Address [address] [place] [address] Care Team Providers Name Role Phone No Ref-Primary, Physician Primary Care Provider [phone] Reason for Referral Diagnostic Imaging Ultrasound (Routine) - Closed Specialty Diagnoses / Procedures Referred By Contact Refer red To Contact Radiology. Diagnoses Essential hypertension Radha Trejo Rh Ultrasound [facility] Procedures US Renal Complete w Doppler Complete ROOSEVELT Chapman MOBILE HOME PARK MANAGER [address] [facility] NO INFO AVAILABLE [address] 02/10/2022 [place] [address] Phone: Fax: Referral ID Status Reason Start Date Expiration Date Visits Requ ested Visits Authorized [id number] Closed 02/05/2020 02/04/2021 1 1 Reason for Visit Reason Comments Follow Up Hypertension Encounter Details Date Type Department Care Team Description 02/05/2020 Virtual Visit [facility] Ghada Trejo [facility] Annika Chapman APRN hypertension (Primary 00[address] [facility] MOBILE HOME PARK MANAGER Dx) [address] NO INFO [place] [address] AVAILABLE [phone] 02/10/2022 Social History Tobacco Use Types Packs/Day [...] be resent to: Text to cell phone: [phone] Will anyone else be joining your video [...] used for Video Visit: Clotilde Trejo APRN MOBILE HOME PARK MANAGER documented in this encounter Plan of [...] hydronephrosis. GILMA BANG MD Radha Trejo APRN [facility] US ORDERABLES documented in this encounter Visit Diagnoses Diagnosis Essential hypertension - Primary Unspecified essential hypertension Essential hypertension Unspecified essential hypertension documented in this encounter Additional Health Concerns Infection Onset Date Last Indicated Resolved Time MRSA-Contact IsolationComment: 0 04/26/2021 11:03 AM WEAVER TIRE CORD Infection erroneous documented as of this encounter Care Teams Supervisor [employer] Relationship Specialty Start Date End Date No Ref-Primary, Physician PCP - General 07/03/14 12/03/21 documented as of this encounter
--- OUTSIDE RECORDS SUMMARY | 2022-03-26 21:33 | XMS_ITS | Encounter Summary ---
:1960 Author Organization [place] Address [facility] [place] [address] Care Team Providers Name Role Phone No Ref-Primary, Physician Primary Care Provider Reason for Referral (Routine) - Closed Specialty Diagnoses / Procedures Referred By Contact Refer red To Contact Diagnoses Mixed hyperlipidemia Feliz Roy MD [address] [place] [address] Referral ID Status Reason Start Date Expiration Date Visits Requ ested Visits Authorized [id number] Closed 01/30/2020 01/29/2021 1 1 Reason for Visit Reason Comments Annual Visit Results lab Encounter Details Date Type Department Care Team Description 01/30/2020 Office Visit [facility] Feliz Roy Essen tial hypertension (Primary Dx); Heart Clinic Idris HERBERT Mixed hyperlipidemia; [address] [facility] [address] Type 2 diabetes mellitus without complication, without long-term current use of insulin (H) [facility] [address] [place] [address] [place] [address] [phone] Social History Tobacco Use Types Packs/Day Years [...] Elijah Brown in Cardiology Clinic today at [facility] Cardiology in [place] for reevaluation of hypertension and dyslipidemia. He [...] office in a year. FELIZ ROY MD, [facility] [place]: Name: ELIJAH BROWN Account: [id number] : 1960 Service Date: 01/30/2020 Document: [id number] Feliz Roy MD - 01/30/2020 2:15 PM CDT HPI and Plan: See dictation Orders Placed This Encounter Procedures ??? Lipid Profile ??? ALT ??? Lipid Profile ??? ALT ??? Basic metabolic panel ??? Hemoglobin A1c ??? Follow-Up with Panel Flow Machine Operator Orders Placed This Encounter Medications ??? VITAMIN [...] on phone: None Gets together: None Attends denominational service: None Active member of club or organization: None Attends meetings of clubs or organizations: None Relationship status: None ??? Intimate partner violence Fear of current or ex partner: None Emotionally abused: None Physically abused: None Forced sexual activity: None Other Topics Concern ??? Parent/sibling w/ CABG, [place] or angioplasty before 65F 55M? No ??? [...] Referral Routine Mixed hyperlipidemia Expec jacques: 11/30/2021 Panel Flow Machine Operator (Approximate), Expires: 2022 documented as of this [...] Address City/State/ZIP Code Phon [place] [address] Care Lab [address] Lab (1st floor, no room number) [...] and gender (Yuli et al., NEJM, DOI: 10.1056/[id number]) Specimen Anatomical Collection Method / Collection Time Recei rehana Time (Source) Location / Volume Laterality Blood STRUCTURE OF RIGHT Venipuncture / 08/13/2021 7:57 04/05/2021 7:58 HAND / Unknown Unknown AM CDT AM CDT Feliz Roy MD LAB - BLOOD ORDERABLES Performing Organization Address City/State/ZIP Code Phon [place] [phone] Care Lab [address] Lab (1st floor, no room number) [...] City/State/ZIP Code Phon [place] [phone] Care Lab [address] Lab (1st floor, no room number) [...] Address City/State/[place] [address] Care Lab [address] [facility] Lab (1st floor, no room number) ALT (03/11/2020 2:45 PM SQE) athologist Signature ALT 41 0 - 70 U/L 03/11/2020 [facility] 3:45 PM [facility] Specimen Anatomical Collection Method Collection Time Receive d Time (Source) Location / / Volume Laterality Blood specimen 03/11/2020 2:45 PM 020 2:48 (specimen) SQE PM SQE Feliz Roy MD LAB - BLOOD ORDERABLES Performing Organization Address City/[facility]/ZIP [facility] Phon [place] Number M [facility] [address] [place], [place] [address] [facility] [address] [address] [address] [phone] (ABNORMAL) Lipid Profile (03/11/2020 2:45 PM SQE) athologist Signature Cholesterol 213 (H) <200 mg/dL 03/11/2020 [place] 3:46 PM [facility] Comment: Desirable: <200 mg/dl Triglycerides 134 <150 mg/dL 03/11/2020 3:46 PM SQE [facility] Comment: Fasting specimen HDL Cholesterol 70 >39 mg/dL 03/11/2020 3:49 PM [facility] LDL Cholesterol 116 (H) <100 mg/dL 03/11/2020 3:49 PM [facility] S[facility]E HOSPITAL Comment: Above desirable: ??100-129 mg/dl Borderline High: ??130-159 mg/dL High: ? 160-189 mg/dL Very high: ? >189 mg/dl Non HDL Cholesterol 143 (H) <130 mg/dL 03/11/2020 3:[address] [facility] Comment: Above Desirable: ??130-159 mg/dl Borderline high: ??160-189 mg/dl High: ? 190-219 mg/dl Very high: ? >219 mg/dl Specimen Anatomical Collection Method Collection Time Receive d Time (Source) Location / / Volume Laterality Blood specimen 03/11/2020 2:45 PM 020 2:48 (specimen) SQE PM SQE Feliz Roy MD LAB - BLOOD ORDERABLES Performing Organization Address City/State/ZIP Code Phon e Number M [facility] [address] [place] [address] [facility] [address] [phone] documented in this encounter Visit Diagnoses Diagnosis Essential hypertension - Primary Unspecified essential hypertension Mixed hyperlipidemia Type 2 diabetes mellitus without complic ation, without long-term current use of insulin (H) documented in this encounter Additional Health Concerns Infection Onset Date Last Indicated Resolved Time MRSA-Contact IsolationComment: 0 04/26/2021 11:03 AM SQE Infection erroneous documented as of this encounter Care Teams Market Risk Manager Relationship Specialty Start Date End Date No Ref-Primary, Physician PCP - General 07/03/14 12/03/21 documented as of this encounter
--- OUTSIDE RECORDS SUMMARY | 2022-03-26 21:33 | XMS_ITS | Encounter Summary ---
:1960 Author Organization [place] Address [address] [place] [address] Care Team Providers Name Role Phone No Ref-Primary, Physician Primary Care Provider [phone] Denise Connell PA-C Unavailable [phone] Encounter Details Date Type Department Care Team [...] documented as of this encounter Care Teams Nurse'S Companion Relationship Specialty Start Date End Date No Ref-Primary, PCP - General 07/03/14 12/03/21 Physician Denise Connell Physician Sueding And Buffing Machine Operator Cardiovascular Disease 08/12/21 MARIETTA Watson [address] [facility] [address] [place] [address] documented as of this encounter
--- OUTSIDE RECORDS SUMMARY | 2022-03-26 21:33 | XMS_ITS | Encounter Summary ---
:1960 Author Organization [place] Address [facility] [place] [address] Care Team Providers Name Role Phone No Ref-Primary, Physician Primary Care Provider [phone] Denise Connell PA-C Unavailable [phone] Reason for Referral Consultation (Routine: Next available opening) - Pending Review Specialty Diagnoses / Procedures Referred By Contact Refer red To Contact Cardiovascular Disease Diagnoses Essential hypertension Mixed hyperlipidemia Denise Connell Eric Ryan, Catherine, PA-C MD [address] [place] [address] [place] [address] Phone: Fax: Referral ID Status Reason Start Date Expiration Date Visits V isits Requested Authorized [id number] Pending 08/16/2021 08/16/2022 1 1 Review Reason for Visit Reason Comments Follow Up Follow up for HLD, and Htn r eview labs Encounter Details Date Type Department Care Team Description 08/16/2021 Office Visit [facility] Denise Connell hypertension (Primary Dx); Heart Clinic Annika Watson PA-C Mixed hyperlipidemia [address] [place] [address] [place] [address] [phone] Social History Tobacco Use Types Packs/Day Years [...] bottles to your next appointment. Important [facility] telephone numbers for your reference: Cardiology Scheduling - [phone] Cardiology Clinic RN- [phone] [facility] HEART CARE Component Latest Ref Rng & [...] in follow up of: hypertension, dyslipidemia Primary home school coordinator: Dr. Farias HPI: Juan Pablo Brown is [...] for further refills 90 tablet 3 ??? Ecqqlkjup-Nsgqlqbwrxd-Zyw D (OSTEO BI-FLEX ONE PER DAY PO) [...] Other Topics Concern ??? Parent/sibling w/ CABG, [place] or angioplasty before 65F 55M? No ??? [...] as of this encounter Care Teams Senior Windows Administrator Relationship Specialty Start Date End Date No Ref-Primary, PCP - General 07/03/14 12/03/21 Physician Denise Connell Physician Rubber Boots And Shoes Repairer Cardiovascular Disease 08/12/21 MARIETTA Watson [address] [facility] [address] [place] [address] documented as of this encounter
--- OUTSIDE RECORDS SUMMARY | 2022-03-26 21:33 | XMS_ITS | Encounter Summary ---
:1960 Author Organization [place] Address [address] [place] [address] Care Team Providers Name Role Phone No Ref-Primary, Physician Primary Care Provider [phone] Juan Farias MD Unavailable Encounter Details [...] MRSA-Contact IsolationComment: 0 04/26/2021 11:03 AM LAW ENFORCEMENT DIRECTOR Infection erroneous documented as of this encounter Care Teams Telephone Surveyor Relationship Specialty Start Date End Date No Ref-Primary, Physician PCP - General 07/03/14 12/03/21 Juan Farias MD Assigned Heart and Vascular 02/14/2010/03 [address] Provider [place] [id number] documented as of this encounter
--- OUTSIDE RECORDS SUMMARY | 2022-03-26 21:33 | XMS_ITS | Encounter Summary ---
:1960 Author Organization [place] Address [address] [place] [address] Care Team Providers Name Role Phone No Ref-Primary, Physician Primary Care Provider Juan Farias MD Unavailable Reason for Visit Reason Onset Date Comments Refill Request 03/23/2020 amlodipine Encounter Details Date Type Department Care Team Description 03/23/2020 Refill [facility] Heart Juan Farias, Refill Request Clinic Idris HERBERT (amlodipine) [address] [place] [address] [address] [place] [address] [place] [id number] (Wo rk) Social History Tobacco Use Types [...] with No / Unsure 03/11/2020 2:39 PM GIFT MANAGER someone who was confirmed or suspected to have Coronavirus / COVID-19? documented as of this encounter Plan of Treatment Not on filedocumented as of this encounter Visit Diagnoses Diagnosis Essential hypertension Unspecified essential hypertension documented in this encounter Additional Health Concerns Infection Onset Date Last Indicated Resolved Time MRSA-Contact IsolationComment: 0 04/26/2021 11:03 AM GIFT MANAGER Infection erroneous documented as of this encounter Care Teams Flexographic Printing Press Operator Relationship Specialty Start Date End Date No Ref-Primary, Physician PCP - General 07/03/14 12/03/21 Juan Farias MD Assigned Heart and Vascular 10/23/20 6/12 /21 [address] Provider [place] [phone] documented as of this encounter
--- OUTSIDE RECORDS SUMMARY | 2022-03-26 21:33 | XMS_ITS | Encounter Summary ---
:1960 Author Organization [place] Address [address] [place] [address] Care Team Providers Name Role Phone No [...] Time MRSA-Contact IsolationComment: 0 04/26/2021 11:03 AM POISON INFORMATION SPECIALIST Infection erroneous documented as of this encounter Care Teams Certified Nursing Assistant Instructor Relationship Specialty Start Date End Date No Ref-Primary, Physician PCP - General 07/03/14 12/03/21 documented as of this encounter
--- OUTSIDE RECORDS SUMMARY | 2022-03-26 21:33 | XMS_ITS | Encounter Summary ---
:1960 Author Organization [place] Address [address] [place] [address] Care Team Providers Name Role Phone No Ref-Primary, Physician Primary Care Provider [phone] Juan Farias MD Unavailable Reason for Visit Reason Comments Results 02/14/20 renal US Encounter Details Date Type Department Care Team Description 02/17/2020 Care Coordination [facility] Kenzie Kenney (02/14/20 Heart Clinic Annika Hernández RN renal US) [address] [facility] [address] [place] [address] Social History Tobacco Use Types [...] with No / Unsure 02/24/2020 3:19 PM ENVIRONMENTAL SERVICES ATTENDANT someone who was confirmed or suspected to [...] to GUILHERME Morales RN 5:18 PM 02/17/2020 RONMENTAL SERVICES ATTENDANT Edilia Trejo - 02/17/2020 5:10 PM CDT Sounds good RONMENTAL SERVICES ATTENDANT Kenzie Kenney RN - 02/17/2020 5:10 PM [...] understands instructions. OZZIE Cook 9:56 AM 02/18/2020 RONMENTAL SERVICES ATTENDANT documented in this encounter Plan of Treatment Not on filedocumented as of this encounter Results Basic metabolic panel (02/21/2020 2:52 PM CDT) P athologist Signature Sodium 134 133 - 144 02/21/2020 [facility] mmol/L 3:51 PM CDT [facility] Potassium 3.4 3.4 - 5.3 02/21/2020 [facility] mmol/L 3:51 PM [facility] Chloride 100 94 - 109 02/21/2020 [facility] mmol/L 3:51 PM [facility] Carbon Dioxide 26 20 - 32 02/21/2020 [facility] [place] mmol/L 3:57 PM [facility] Anion Gap 8 3 - 14 02/21/2020 [place] mmol/L 3:57 PM [facility] Glucose 95 70 - 99 02/21/2020 [place] mg/dL 3:57 PM [facility] Urea Nitrogen 13 7 - 30 02/21/2020 [place] mg/dL 3:57 PM [facility] Creatinine 1.04 0.66 - 02/21/2020 [facility] 1.25 mg/dL 3:57 PM [facility] GFR Estimate 79 >60 02/21/2020 [place] mL/min/{1. 3:57 PM [facility] 73_m2} HOSPITAL Comment: Non GFR Calc Starting 04/10/2018, serum creatinine ba sed estimated GFR (eGFR) will be calculated using the Chronic Kidney Dise [facility] Epidemiology Collaboration (CKD-EPI) equation. GFR Estimate If >90 >60 mL/min/{1.73_m2} 02/21/2020 3: 57 PM [facility] Comment: GFR Calc Starting 04/10/2018, serum creatinine ba sed estimated GFR (eGFR) will be calculated using the Chronic Kidney Dise [facility] Epidemiology Collaboration (CKD-EPI) equation. Calcium 8.8 8.5 - 10.1 mg/dL 02/21/2020 3:57 PM [facility] Specimen Anatomical Collection Method Collection Time Receive d Time (Source) Location / / Volume Laterality Blood specimen 02/21/2020 2:52 PM 020 2:57 (specimen) CDT PM CDT Edilia Trejo APRN LABORER AMMUNITION ASSEMBLY LAB - BLOOD ORDERA BLES Performing Organization Address City/State/ZIP Code Phon e Number M [facility] [address] [place], [place] [address] [facility] [address] [place], [place] [address] [phone] documented in this encounter Visit Diagnoses Diagnosis Essential hypertension - Primary Unspecified essential hypertension documented in this encounter Additional Health Concerns Infection Onset Date Last Indicated Resolved Time MRSA-Contact IsolationComment: 0 04/26/2021 11:03 AM ENVIRONMENTAL SERVICES ATTENDANT Infection erroneous documented as of this encounter Care Teams Activities Therapist Relationship Specialty Start Date End Date No Ref-Primary, Physician PCP - General 07/03/14 12/03/21 Juan Farias MD Assigned Heart and Vascular 02/14/2010/03 [address] Provider [place] [id number] documented as of this encounter
--- OUTSIDE RECORDS SUMMARY | 2022-03-26 21:33 | XMS_ITS | Encounter Summary ---
:1960 Author Organization [place] Address [address] [place] [address] Care Team Providers Name Role Phone No Ref-Primary, Physician Primary Care Provider [phone] Juan Farias MD Unavailable Reason for Visit Reason Onset Date Comments Refill Request 03/12/2020 Atorvastatin Encounter Details Date Type Department Care Team Description 03/12/2020 Refill M [facility] Heart Juan Farias, Refill Request Clinic Idris HERBERT (Atorvastatin) [address] [place] [address] [place] [id number] (Wo rk) Social History Tobacco Use Types [...] with No / Unsure 03/11/2020 2:39 [address] PARKING LOT ATTENDANT someone who was confirmed or suspected to have Coronavirus / COVID-19? documented as of this encounter Plan of Treatment Not on filedocumented as of this encounter Visit Diagnoses Diagnosis Mixed hyperlipidemia documented in this encounter Additional Health Concerns Infection Onset Date Last Indicated Resolved Time MRSA-Contact IsolationComment: 0 04/26/2021 11:03 [address] PARKING LOT ATTENDANT Infection erroneous documented as of this encounter Care Teams Wood Gouger Relationship Specialty Start Date End Date No Ref-Primary, Physician PCP - General 07/03/14 12/03/21 Juan Farias MD Assigned Heart and Vascular 02/14/2010/03 [address] Provider [place] [id number] documented as of this encounter
--- OUTSIDE RECORDS SUMMARY | 2022-03-26 21:33 | XMS_ITS | Encounter Summary ---
:1960 Author Organization [place] Address [address] [place] [address] Care Team Providers Name Role Phone No Ref-Primary, Physician Primary Care Provider [phone] Juan Farias MD Unavailable Encounter Details Date Type Department Care Team Description 03/11/2020 Orders Only [facility] Heart Clinic Mixed hyperlipidemia [address] [place] [address] Social History Tobacco Use [...] with No / Unsure 03/11/2020 2:39 PM RECEPTIONIST/TELEPHONE OPERATOR someone who was confirmed or suspected to have Coronavirus / COVID-19? documented as of this encounter Plan of Treatment Not on filedocumented as of this encounter Procedures Procedure Name Priority Date/Time Associated Diagnosis Comme nts LIPID PROFILE Routine 03/11/2020 2:45 PM Mixed hyperlipidemia Results for this RECEPTIONIST/TELEPHONE OPERATOR procedure are i n the results section . ALT Routine 03/11/2020 2:45 PM Mixed hyperlipidemia R esults for this RECEPTIONIST/TELEPHONE OPERATOR procedure are i n the results section . documented in this encounter Results (ABNORMAL) Lipid Profile (03/11/2020 2:45 PM RECEPTIONIST/TELEPHONE OPERATOR) P athologist Signature Cholesterol 213 (H) <200 mg/dL 03/11/2020 [place] 3:46 PM [facility] Comment: Desirable: <200 mg/dl Triglycerides 134 <150 mg/dL 03/11/2020 3:46 PM RECEPTIONIST/TELEPHONE OPERATOR [facility] Comment: Fasting specimen HDL Cholesterol 70 >39 mg/dL 03/11/2020 3:[address] [facility] LDL Cholesterol 116 (H) <100 mg/dL 03/11/2020 3:49 PM [facility] Comment: Above desirable: ??100-129 mg/dl Borderline High: ??130-159 mg/dL High: ? 160-189 mg/dL Very high: ? >189 mg/dl Non HDL Cholesterol 143 (H) <130 mg/dL 03/11/2020 3:[address] [facility] Comment: Above Desirable: ??130-159 mg/dl Borderline high: ??160-189 mg/dl High: ? 190-219 mg/dl Very high: ? >219 mg/dl Specimen Anatomical Collection Method Collection Time Receive d Time (Source) Location / / Volume Laterality Blood specimen 03/11/2020 2:45 PM 020 2:48 (specimen) RECEPTIONIST/TELEPHONE OPERATOR PM RECEPTIONIST/TELEPHONE OPERATOR Juan Farias MD LAB - BLOOD ORDERABLES Performing Organization Address City/[facility]/ZIP Code Phon e Number M [facility] [address] [address] [facility] [address] [address], [facility] [phone] ALT (03/11/2020 2:45 PM RECEPTIONIST/TELEPHONE OPERATOR) P athologist Signature ALT 41 0 - 70 U/L 03/11/2020 [facility] 3:45 PM [facility] Specimen Anatomical Collection Method Collection Time Receive d Time (Source) Location / / Volume Laterality Blood specimen 03/11/2020 2:45 PM 020 2:48 (specimen) RECEPTIONIST/TELEPHONE OPERATOR PM RECEPTIONIST/TELEPHONE OPERATOR Juan Farias MD LAB - BLOOD ORDERABLES Performing Organization Address City/[facility]/ZIP Code Phon e Number M [facility] [address] [place], [place] [address] [facility] [address] [address] [address], [facility] [phone] documented in this encounter Visit Diagnoses Diagnosis Mixed hyperlipidemia documented in this encounter Additional Health Concerns Infection Onset Date Last Indicated Resolved Time MRSA-Contact IsolationComment: 0 04/26/2021 11:03 AM RECEPTIONIST/TELEPHONE OPERATOR Infection erroneous documented as of this encounter Care Teams Oracle Fusion Middleware Architect Relationship Specialty Start Date End Date No Ref-Primary, Physician PCP - General 07/03/14 12/03/21 Juan Farias MD Assigned Heart and Vascular 02/14/2010/03 [address] Provider [place] [id number] documented as of this encounter
--- OUTSIDE RECORDS SUMMARY | 2022-03-26 21:33 | XMS_ITS | Encounter Summary ---
:1960 Author Organization [place] Address [address] [place] [address] Care Team Providers Name Role Phone No Ref-Primary, Physician Primary Care Provider [phone] Denise Connell PA-C Unavailable [phone] Encounter Details Date Type Department Care Team Description 08/13/2021 Lab [facility] Heart Mixe d hyperlipidemia; Clinic [place] Essential hypertension; [address] 2 diabetes mellitus without complication, without long-term current use of insulin (H) [address] [place] [address] Social History Tobacco Use [...] Address City/State/ZIP Code Ph[place] [address] Care Lab [address] Lab (1st floor, no room number) [...] and gender (Yuli et al., [place], DOI: [id number]) Specimen Anatomical Collection Method / Collection Time Recei rehana Time (Source) Location / Volume Laterality Blood STRUCTURE OF RIGHT Venipuncture / 08/13/2021 7:57 07/24 7:58 HAND / Unknown Unknown AM CDT AM CDT Juan Farias MD LAB - BLOOD ORDERABLES Performing Organization Address City/[facility]/[place] [address] Care Lab [address] Lab (1st floor, no room number) [...] LAB - BLOOD ORDERABLES Performing Organization Address City/[facility]/[place] [address] Care Lab [address] Lab (1st floor, no room number) [...] Address City/State/ZIP Code [place] [phone] Care Lab [address] Lab (1st floor, no room number) documented in this encounter Visit Diagnoses Diagnosis Mixed hyperlipidemia Essential hypertension Unspecified essential hypertension Type 2 diabetes mellitus without complic ation, without long-term current use of insulin (H) documented in this encounter Additional Health Concerns Infection Onset Date Last Indicated Resolved Time MRSA 05/13/2021 05/13/2021 documented as of this encounter Care Teams Maintenance Superintendent Relationship Specialty Start Date End Date No Ref-Primary, PCP - General 07/03/14 12/03/21 Physician Denise Connell Physician Geospatial Applications Developer Cardiovascular Disease 08/12/21 MARIETTA Watson [address] [place] [address] documented as of this encounter
--- OUTSIDE RECORDS SUMMARY | 2022-03-26 21:33 | XMS_ITS | Encounter Summary ---
:1960 Author Organization [place] Address [address] [place] [address] Care Team Providers Name Role Phone No Ref-Primary, Physician Primary Care Provider [phone] Reason for Visit Reason Onset Date Comments Refill Request 09/23/2019 atorvastatin Encounter Details Date Type Department Care Team Description 09/23/2019 Refill [facility] Jarrett, Juan Alegre, Refill Request Clinic Annika HERBERT (atorvastatin) [address] [facility] [address] [facility] [address] [place] [address] [place] [id number] ( rk) Social History Tobacco Use Types [...] Time MRSA-Contact IsolationComment: 0 04/26/2021 11:03 AM PUBLIC RELATIONS WRITER Infection erroneous documented as of this encounter Care Teams Chef De Cuisine Relationship Specialty Start Date End Date No Ref-Primary, Physician PCP - General 07/03/14 12/03/21 documented as of this encounter
--- OUTSIDE RECORDS SUMMARY | 2022-03-26 21:33 | XMS_ITS | Encounter Summary ---
:1960 Author Organization [place] Address [address] [place] [address] Care Team Providers Name Role Phone No Ref-Primary, Physician Primary Care Provider [phone] Denise Connell PA-C Unavailable [phone] Encounter Details Date Type Department Care Team [...] documented as of this encounter Care Teams Documentation Analyst Relationship Specialty Start Date End Date No Ref-Primary, PCP - General 07/03/14 12/03/21 Physician Denise Connell Physician Mutuel Clerk Cardiovascular Disease 08/12/21 MARIETTA Watson [address] [facility] [address] [place] [address] documented as of this encounter
--- OUTSIDE RECORDS SUMMARY | 2022-03-26 21:33 | XMS_ITS | Encounter Summary ---
:1960 Author Organization [place] Address [address] [place] [address] Care Team Providers Name Role Phone No Ref-Primary, Physician Primary Care Provider [phone] Juan Farias MD Unavailable Reason for Referral Diagnostic Imaging Ultrasound (Routine) - Closed Specialty Diagnoses / Procedures Referred By Contact Refer red To Contact Radiology. Diagnoses Essential hypertension Edilia Trejo Ultrasound Rscc Procedures US Renal Complete w Doppler Complete ROOSEVELT Chapman CNP [address] [address] NO INFO AVAIL[address] 02/10/2022 [place] [address] Phone: Fax: Referral ID Status Reason Start Date Expiration Date Visits Requ ested Visits Authorized [id number] Closed 02/05/2020 02/04/2021 1 1 Reason for Visit Diagnostic Imaging Ultrasound (Routine) - Closed Specialty Diagnoses / Procedures Referred By Contact Refer red To Contact Radiology. Diagnoses Essential hypertension Edilia Trejo Ultrasound Rscc Procedures US Renal Complete w Doppler Complete ROOSEVELT Chapman SPORTS MEDICINE SPECIALIST [address] [address] INFO AVAIL[address] 02/10/2022 [place] [address] Phone: Fax: Referral ID Status Reason Start Date Expiration Date Visits Requ ested Visits Authorized [id number] Closed 02/05/2020 02/04/2021 1 1 Encounter Details Date Type Department Care Team Description [facility]/14/2020 [facility] [facility] Specialty Edilia Chapman APRN [facility] Imaging SPORTS MEDICINE SPECIALIST [address] [place] [address] AVAILABLE [place], [place] 02/10/2022 [address] Social History Tobacco Use [...] Take 81 mg by 0 mouth daily Aztiwlyif-Cokexxhyxck-Arb D Take 1 tablet by 0 (OSTEO [...] hydronephrosis. JASON BANG MD Edilia Trejo APRN SPORTS MEDICINE SPECIALIST IMG ORDERABLES documented in this encounter Visit Diagnoses Diagnosis Essential hypertension Unspecified essential hypertension documented in this encounter Additional Health Concerns Infection Onset Date Last Indicated Resolved Time MRSA-Contact IsolationComment: 0 04/26/2021 11:03 AM AUTO INSPECTOR Infection erroneous documented as of this encounter Care Teams Facility Examiner Relationship Specialty Start Date End Date No Ref-Primary, Physician PCP - General 07/03/14 12/03/21 Juan Farias MD Assigned Heart and Vascular 02/14/2010/03 [address] Provider [place] [address] documented as of this encounter
--- OUTSIDE RECORDS SUMMARY | 2022-03-26 21:33 | XMS_ITS | Encounter Summary ---
:1960 Author Organization [place] Address [address] [place] [address] Care Team Providers Name Role Phone No Ref-Primary, Physician Primary Care Provider [phone] Juan Farias MD Unavailable Encounter Details Date Type Department Care Team Description 02/21/2020 [facility] [place] [id number] [place] [address] [address] [place] [address] Social History Tobacco Use [...] Signature Sodium 134 133 - 144 02/21/2020 [place] mmol/L 3:51 PM [facility] Potassium 3.4 3.4 - 5.3 02/21/2020 [place] mmol/L 3:51 PM [facility] Chloride 100 94 - 109 02/21/2020 [place] mmol/L 3:51 PM [facility] Carbon Dioxide 26 20 - 32 02/21/2020 [place] mmol/L 3:57 PM [facility] Anion Gap 8 3 - 14 02/21/2020 [place] mmol/L 3:57 PM [facility] Glucose 95 70 - 99 02/21/2020 [place] mg/dL 3:57 PM [facility] Urea Nitrogen 13 7 - 30 02/21/2020 [place] mg/dL 3:57 PM [facility] Creatinine 1.04 0.66 - 02/21/2020 [place] 1.25 mg/dL 3:57 PM [facility] GFR Estimate 79 >60 02/21/2020 [place] mL/min/{1. 3:57 PM [facility] 73_m2} [facility] Comment: Non GFR Calc Starting 04/10/2018, serum creatinine ba sed estimated GFR (eGFR) will be calculated using the Chronic Kidney Dise [facility] Epidemiology Collaboration (CKD-EPI) equation. GFR Estimate If >90 >60 mL/min/{1.73_m2} 02/21/2020 3: 57 PM [facility] Comment: GFR Calc Starting 04/10/2018, serum creatinine ba sed estimated GFR (eGFR) will be calculated using the Chronic Kidney Dise [facility] Epidemiology Collaboration (CKD-EPI) equation. Calcium 8.8 8.5 - 10.1 mg/dL 02/21/2020 3:57 PM [facility] Specimen Anatomical Collection Method Collection Time Receive d Time (Source) Location / / Volume Laterality Blood specimen 02/21/2020 2:52 PM 020 2:57 (specimen) CDT PM CDT Edilia Trejo APRN WINDER TENDER LAB - BLOOD ORDERA BLES Performing Organization Address City/State/ZIP Code Phon e Number M [facility] [address] [place], [place] [address] [facility] [address] [address] [phone] documented in this encounter Visit Diagnoses Diagnosis Essential hypertension Unspecified essential hypertension documented in this encounter Additional Health Concerns Infection Onset Date Last Indicated Resolved Time MRSA-Contact IsolationComment: 0 04/26/2021 11:03 AM MOTEL FRONT DESK ATTENDANT Infection erroneous documented as of this encounter Care Teams Customer Relations Specialist Relationship Specialty Start Date End Date No Ref-Primary, Physician PCP - General 07/03/14 12/03/21 Jaun Farias MD Assigned Heart and Vascular 02/14/2010/03 [address] Provider [place] [address] documented as of this encounter
--- OUTSIDE RECORDS SUMMARY | 2022-03-26 21:33 | XMS_ITS | Encounter Summary ---
:1960 Author Organization [place] Address [address] [place] [address] Care Team Providers Name Role Phone Denise Connell PA-C Unavailable [phone] Denise Connell PA-C Unavailable [phone] Juan Farias MD Primary Care Provider Encounter [...] documented as of this encounter Care Teams Diagrammer And Seamer Relationship Specialty Start Date End Date Juan Farias, PCP - General Cardiovascular Disease 12/04/21 [address] [place] [id number] Denise Connell Physician Carpet Journeyman Cardiovascular Disease 08/12/21 MARIETTA Watson [address] [place] [id number] [place], Denise Assigned Heart and 08/22/21 01/14/22 MARIETTA Watson Vascular Provider [address] [place] [id number] documented as of this encounter
--- OUTSIDE RECORDS SUMMARY | 2022-03-26 21:33 | XMS_ITS | Encounter Summary ---
:1960 Author Organization [place] Address [address] [place] [address] Care Team Providers Name Role Phone No Ref-Primary, Physician Primary Care Provider [phone] Juan Farias MD Unavailable Reason for Visit Reason Onset Date Comments Refill Request 05/12/2021 amlodipine Encounter Details Date Type Department Care Team Description 05/12/2021 Refill M [facility] Juan Farias, Refill Request Clinic Annika HERBERT (amlodipine) [address] [place] [address] [place] [id number] (Wo rk) Social History Tobacco Use Types [...] hypertension documented in this encounter Care Teams Bread Dumper Relationship Specialty Start Date End Date No Ref-Primary, Physician PCP - General 07/03/14 12/03/21 Juan Farias MD Assigned Heart and Vascular 04/04/21 [address] Provider [place] [id number] documented as of this encounter
--- OUTSIDE RECORDS SUMMARY | 2022-03-26 21:33 | XMS_ITS | Encounter Summary ---
:1960 Author Organization [place] Address [address] [place] [address] Care Team Providers Name Role Phone No Ref-Primary, Physician Primary Care Provider [phone] Juan Farias MD Unavailable Encounter Details [...] with No / Unsure 03/11/2020 2:39 PM TONNAGE COMPILATION CLERK someone who was confirmed or suspected to have Coronavirus / COVID-19? documented as of this encounter Plan of Treatment Not on filedocumented as of this encounter Visit Diagnoses Not on filedocumented in this encounter Additional Health Concerns Infection Onset Date Last Indicated Resolved Time MRSA-Contact IsolationComment: 0 04/26/2021 11:03 AM TONNAGE COMPILATION CLERK Infection erroneous documented as of this encounter Care Teams Spray Drier Operator Relationship Specialty Start Date End Date No Ref-Primary, Physician PCP - General 07/03/14 12/03/21 Juan Farias MD Assigned Heart and Vascular 02/14/2010/03 [address] Provider [place] [id number] documented as of this encounter
--- OUTSIDE RECORDS SUMMARY | 2022-03-26 21:33 | XMS_ITS | Encounter Summary ---
:1960 Author Organization [facility] Address [address] [place] [address] Care Team Providers Name Role Phone No Ref-Primary, Physician Primary Care Provider Reason for Visit Reason Onset Date Comments Refill Request 01/01/2020 Amlodipine Encounter Details Date Type Department Care Team Description 01/01/[address] [facility] Heart Jarrett, Juan Alegre, Refill Request Clinic Annika HERBERT (Amlodipine) 6[address] [facility] 6[address] [facility] [address] [place] [address] [place] [id number] ( rk) Social History Tobacco Use Types [...] Time MRSA-Contact IsolationComment: 0 04/26/2021 11:03 AM TRACTOR OPERATOR Infection erroneous documented as of this encounter Care Teams Food Technologist Relationship Specialty Start Date End Date No Ref-Primary, Physician PCP - General 07/03/14 12/03/21 documented as of this encounter
--- OUTSIDE RECORDS SUMMARY | 2022-03-26 21:33 | XMS_ITS | Encounter Summary ---
:1960 Author Organization [place] Address [address] [place] [address] Care Team Providers Name Role Phone No Ref-Primary, Physician Primary Care Provider [phone] Juan Farias MD Unavailable Encounter Details [...] Time MRSA-Contact IsolationComment: 0 04/26/2021 11:03 AM RV BODY MECHANIC Infection erroneous documented as of this encounter Care Teams Detective Chief Relationship Specialty Start Date End Date No Ref-Primary, Physician PCP - General 07/03/14 12/03/21 Juan Farias MD Assigned Heart and Vascular 02/14/2010/03 [address] Provider [place] [id number] documented as of this encounter
--- OUTSIDE RECORDS SUMMARY | 2022-03-26 21:33 | XMS_ITS | Encounter Summary ---
:1960 Author Organization [place] Address [address] [place] [address] Care Team Providers Name Role Phone No Ref-Primary, Physician Primary Care Provider [phone] Reason for Visit Reason Onset Date Comments Refill Request 12/23/2019 Atorvastatin Encounter Details Date Type Department Care Team Description 12/23/2019 Refill [facility] Jarrett, Juan Alegre, Refill Request Clinic Annika HERBERT (Atorvastatin) 6405 [facility] 6[address] [facility] [address] [place] [address] [place] [id number] ( rk) Social History Tobacco Use Types [...] Time MRSA-Contact IsolationComment: 0 04/26/2021 11:03 AM STRAIGHTENER Infection erroneous documented as of this encounter Care Teams Helper/Driver Relationship Specialty Start Date End Date No Ref-Primary, Physician PCP - General 07/03/14 12/03/21 documented as of this encounter
--- OUTSIDE RECORDS SUMMARY | 2022-03-26 21:33 | XMS_ITS | Encounter Summary ---
:1960 Author Organization [place] Address [facility] [place] [address] Care Team Providers Name Role Phone No Ref-Primary, Physician Primary Care Provider Edilia Trejo APRN PRODUCT BLENDING SUPERVISOR Unavailable Glendy vailable Reason for Visit Reason Onset Date Comments Refill Request 08/05/2021 [facility] Encounter Details Date Type Department Care Team Description 08/05/[address] [facility] Heart Jarrett, Juan Alegre, Refill Request ([facility]) Clinic Annika HERBERT 6[address] [facility] [address] [facility] [address] [place] [address] [place], [place] [phone] (Wo rk) Social History Tobacco Use Types Packs/Day Years Used Date Smoking Tobacco: Never Smokeless Tobacco: Never Alcohol Use Standard Drinks/Week Comments No 0 (1 standard drink = 0.6 oz pure alcoho l) quit 5 years ago Sex Assigned at Date Recorded Not on file documented as of this encounter Miscellaneous Notes Telephone Encounter - Kaelyn Inman RN - 08/05/2021 12:00 PM CDT [facility] Cardiology Refill Guideline reviewed. Medication meets criteria for refill. documented in this encounter Plan of Treatment Not on filedocumented as of this encounter Visit Diagnoses Diagnosis Essential hypertension Unspecified essential hypertension documented in this encounter Additional Health Concerns Infection Onset Date Last Indicated Resolved Time MRSA 05/13/2021 05/13/2021 documented as of this encounter Care Teams Harbormaster Relationship Specialty Start Date End Date No Ref-Primary, Physician PCP - General 07/03/14 12/03/21 Edilia Trejo Assigned Heart and Vascular 08/0108/07/21 ROOSEVELT Chapman PRODUCT BLENDING SUPERVISOR Provider NO INFO AVAILABLE 02/10/2022 documented as of this encounter
--- OUTSIDE RECORDS SUMMARY | 2022-03-26 21:33 | XMS_ITS | Encounter Summary ---
:1960 Author Organization [place] Address [address] [place] [address] Care Team Providers Name Role Phone No Ref-Primary, Physician Primary Care Provider [phone] Juan Farias MD Unavailable Reason for Visit Reason Comments Results Encounter Details Date Type Department Care Team Description 03/12/2020 Care Coordination [facility] Heart Sabrina Montes, Results Clinic Lillian RN [address] [facility] [address] [place] [address] Social History Tobacco Use Types [...] with No / Unsure 03/11/2020 2:39 PM K 12 SCHOOL PROFESSIONAL someone who was confirmed or suspected to [...] BP update. Ashish HORNE February, 4:26 PM K 12 SCHOOL PROFESSIONAL Larisa Montes RN - 03/12/2020 11:50 AM [...] Ashish HORNE March 17, 2020, 2:03 PM K 12 SCHOOL PROFESSIONAL documented in this encounter Miscellaneous Notes Telephone Encounter - Juan Farias MD - 03/17/2020 10:51 AM CST Hi Larisa, as usual, I agree with you. I would recommend that he increase atorvastatin to 80 mg daily and Metoprolol Succinate to 50 mg daily. Recheck FLP in 3 months. Juan Farias K 12 SCHOOL PROFESSIONAL Addendum Note - Larisa Montes RN - 03/12/2020 11:50 AM K 12 SCHOOL PROFESSIONAL Addended by: LARISA MONTES on: 03/17/2020 02:06 PM Modules accepted: Orders, SmartSet K 12 SCHOOL PROFESSIONAL documented in this encounter Plan of Treatment Not on filedocumented as of this encounter Visit Diagnoses Diagnosis Essential hypertension - Primary Unspecified essential hypertension Mixed hyperlipidemia documented in this encounter Additional Health Concerns Infection Onset Date Last Indicated Resolved Time MRSA-Contact IsolationComment: 0 04/26/2021 11:03 AM K 12 SCHOOL PROFESSIONAL Infection erroneous documented as of this encounter Care Teams Cytogenetic Technician Relationship Specialty Start Date End Date No Ref-Primary, Physician PCP - General 07/03/14 12/03/21 Juan Farias MD Assigned Heart and Vascular 02/14/2010/03 [address] Provider [place] [address] documented as of this encounter
--- OUTSIDE RECORDS SUMMARY | 2022-03-26 21:33 | XMS_ITS | Encounter Summary ---
:1960 Author Organization [place] Address [address] [place] [address]. [place] [address] Care Team Providers Name Role Phone No Ref-Primary, Physician Primary Care Provider [phone] Reason for Visit Reason Comments Hypertension Encounter Details Date Type Department Care Team Description 02/04/2020 Care Coordination [facility] Brian Madrid, Hypertension Clinic Annika HORNE [address] [facility] [address] [place] [address] Social History Tobacco Use Types [...] 12:25 PM BP Received: Today Message Contents Deysi Milton RN P [facility] Heart Team 7 ?? Dr. Max spoke [...] Time MRSA-Contact IsolationComment: 0 04/26/2021 11:03 AM FRONT END WEB DESIGNER Infection erroneous documented as of this encounter Care Teams Taker Off Relationship Specialty Start Date End Date No Ref-Primary, Physician PCP - General 07/03/14 documented as of this encounter
--- OUTSIDE RECORDS SUMMARY | 2022-03-26 21:33 | XMS_ITS | Encounter Summary ---
:1960 Author Organization [place] Address [address] [place] [address] Care Team Providers Name Role Phone No Ref-Primary, Physician Primary Care Provider [phone] Juan Farias MD Unavailable Encounter Details [...] with No / Unsure 02/24/2020 3:19 PM FILM PROCESSING UTILITY WORKER someone who was confirmed or suspected to have Coronavirus / COVID-19? documented as of this encounter Plan of Treatment Not on filedocumented as of this encounter Visit Diagnoses Not on filedocumented in this encounter Additional Health Concerns Infection Onset Date Last Indicated Resolved Time MRSA-Contact IsolationComment: 0 04/26/2021 11:03 AM FILM PROCESSING UTILITY WORKER Infection erroneous documented as of this encounter Care Teams Biomedical Engineering Technician Relationship Specialty Start Date End Date No Ref-Primary, Physician PCP - General 07/03/14 12/03/21 Juan Farias MD Assigned Heart and Vascular 02/14/2010/03 [address] Provider [place] [id number] documented as of this encounter
--- OUTSIDE RECORDS SUMMARY | 2022-03-26 21:34 | XMS_ITS | Encounter Summary ---
:1960 Author Organization [address] [address] Care Team Providers Name Role Phone Unavailable Primary Care Provider Unavailable Encounter Details Date Type Department Care Team Description 07/15/2011 Historic Results [facility] Heart Unknown, Doct or, Clinic [place] [address] [place] [address] Social History Tobacco Use Types Packs/Day Years [...] GEMMS Historical Results (07/15/2011 12:00 AM CDT) [facility] gist Method Time Signature Triglycerides 149 0 [...] MRSA-Contact IsolationComment: 0 04/26/2021 11:03 AM FIELD NURSE CASE MANAGER Infection erroneous documented as of this encounter
--- OUTSIDE RECORDS SUMMARY | 2022-03-26 21:34 | XMS_ITS | Encounter Summary ---
:1960 Author Organization [place] Address [address] [place] [address] Care Team Providers Name Role Phone No Ref-Primary, Physician Primary Care Provider Encounter Details Date Type Department Care Team Description 11/29/2018 Orders Only [facility] Heart Hype rlipidemia LDL goal <100; Clinic [facility] Elevated fasting glucose 6[address] [facility] [address] [place] [address] Social History Tobacco Use Types Packs/Day Years [...] 6.1 (H) 0 - 5.6 % 11/29/2018 AMHERST 11:22 AM CDT [facility] Comment: Normal <5.7% Prediabetes 5.7-6.4% ??Diab etes 6.5% or higher - adopted from ADA consensus guidelines. Specimen Anatomical Collection Method Collection Time Receive d Time (Source) Location / / Volume Laterality Blood specimen 11/29/2018 10:00 9 (specimen) AM CDT 10:01 AM CDT Juan Farias MD LAB - BLOOD ORDERABLES Performing Organization Address City/State/ZIP Code Phon e Number M [facility] [address] [place] [address] [facility] [address] [place] [place] [address], U SA [phone] (ABNORMAL) Basic metabolic panel (11/29/2018 9:59 AM CDT) P athologist Signature Sodium 137 136 - 145 11/29/2018 [facility] mmol/L 10:49 AM T [facility] Potassium 4.0 3.5 - 5.1 11/29/2018 [facility] mmol/L 10:49 AM T [facility] Chloride 102 98 - 107 11/29/2018 [facility] mmol/L 10:49 AM [facility] Carbon Dioxide 27 23 - 29 11/29/2018 [facility] mmol/L 10:49 AM [facility] Anion Gap 12 6 - 17 11/29/2018 [facility] mmol/L 10:49 AM [facility] Glucose 120 (H) 70 - 105 11/29/2018 [facility] mg/dL 10:49 AM [facility] Comment: Fasting specimen Urea Nitrogen 15 7 - 30 mg/dL 11/29/2018 10:49 AM [facility] T [facility] Creatinine 1.11 0.70 - 1.30 11/29/2018 10:49 AM [facility] AT mg/dL T [facility] GFR Estimate 69 >60 11/29/2018 10:49 AM [facility] AT mL/min/{1.73_m [facility] 2} GFR Estimate If 83 >60 11/29/2018 10:49 AM [facility] Black mL/min/{1.73_m [facility] 2} Calcium 9.7 8.5 - 10.5 11/29/2018 10:49 AM [facility] AT mg/dL [facility] Specimen Anatomical Collection Method Collection Time Receive d Time (Source) Location / / Volume Laterality Blood specimen 11/29/2018 9:59 AM 019 (specimen) CDT 10:00 AM CDT Juan Farias MD LAB - BLOOD ORDERABLES Performing Organization Address City/State/ZIP Code Phon e Number [facility] [address] [place] [address] [address] (ABNORMAL) Lipid Profile (11/29/2018 9:59 AM CDT) P athologist Signature Cholesterol 145 <200 mg/dL 11/29/2018 P [facility]ART AT 10:49 AM [facility] Triglycerides 152 (H) <150 mg/dL 11/29/2018 [facility] 10:49 AM [facility] Comment: Fasting specimen Borderline high: ??150-199 mg/dl High: ? 200-499 mg/dl Very high: ? >499 mg/dl HDL Cholesterol 43 >39 mg/dL 11/29/2018 10:49 AM [facility] LDL Cholesterol 72 <100 mg/dL 11/29/2018 10:49 AM [facility] Calculated [facility] Comment: Desirable: <100 mg/dl Non HDL Cholesterol 102 <130 mg/dL 11/29/2018 10:49 AM [facility] Specimen Anatomical Collection Method Collection Time Receive d Time (Source) Location / / Volume Laterality Blood specimen 11/29/2018 9:59 AM 019 (specimen) CDT 10:00 AM CDT Juan Farias MD LAB - BLOOD ORDERABLES Performing Organization Address City/[facility]/ZIP Code Phon e Number [facility] [address] [place] [address] [address] ALT (11/29/2018 9:59 AM CDT) P athologist Signature ALT 13 5 - 30 U/L 11/29/2018 [facility] AT 10:49 AM CDT [facility] Specimen Anatomical Collection Method Collection Time Receive d Time (Source) Location / / Volume Laterality Blood specimen 11/29/2018 9:59 AM 019 (specimen) CDT 10:00 AM CDT Juan Farias MD LAB - BLOOD ORDERABLES Performing Organization Address City/State/ZIP Code Phon e Number [facility] AT [facility] [address] [address] [address] documented in this encounter Visit Diagnoses Diagnosis Hyperlipidemia LDL goal <100 Other and unspecified hyperlipidemia Elevated fasting glucose Impaired fasting glucose documented in this encounter Additional Health Concerns Infection Onset Date Last Indicated Resolved Time MRSA-Contact IsolationComment: 0 04/26/2021 11:03 AM CLEANING ASSOCIATE Infection erroneous documented as of this encounter Care Teams System Programmer Relationship Specialty Start Date End Date No Ref-Primary, Physician PCP - General 07/03/14 12/03/21 documented as of this encounter
--- OUTSIDE RECORDS SUMMARY | 2022-03-26 21:34 | XMS_ITS | Encounter Summary ---
:1960 Author Organization [place] Address [address] [place] [address] Care Team Providers Name Role Phone No Ref-Primary, Physician Primary Care Provider Reason for Visit Reason Onset Date Comments Refill Request 12/06/2017 amlodipine Encounter Details Date Type Department Care Team Description 12/06/2017 Refill [facility] Jarrett, Juan Alegre, Refill Request Clinic Annika HERBERT (amlodipine) 6[address] [facility] [address] [facility] [address] [place] [address] [place] [id number] ( rk) Social History Tobacco Use Types [...] Time MRSA-Contact IsolationComment: 0 04/26/2021 11:03 AM TOMATO PASTE MAKER Infection erroneous documented as of this encounter Care Teams Liquor Grinding Mill Operator Relationship Specialty Start Date End Date No Ref-Primary, Physician PCP - General 07/03/14 12/03/21 documented as of this encounter
--- OUTSIDE RECORDS SUMMARY | 2022-03-26 21:34 | XMS_ITS | Encounter Summary ---
:1960 Author Organization [place] Address [address] [place] [address]. [place] [address] Care Team Providers Name Role Phone No Ref-Primary, Physician Primary Care Provider [phone] Reason for Visit Reason Onset Date Comments Refill Request 06/01/2015 Lipitor, Lisinopril OV 08/05/2015 Encounter Details Date Type Department Care Team Description 06/01/2015 Refill [facility] Heart JarrettJuan ceron, Refill Request (Lipitor, Clinic Annika HERBERT Lisinopril OV 08/05/2015) [address] [place] [address] [place], [place] [address] (Wo rk) Social History Tobacco Use Types [...] Time MRSA-Contact IsolationComment: 0 04/26/2021 11:03 AM JUNIOR COPYWRITER Infection erroneous documented as of this encounter Care Teams Kitchen Porter Relationship Specialty Start Date End Date No Ref-Primary, Physician PCP - General 07/03/14 12/03/21 documented as of this encounter
--- OUTSIDE RECORDS SUMMARY | 2022-03-26 21:34 | XMS_ITS | Encounter Summary ---
:1960 Author Organization [place] Address [address] [place] [address] Care Team Providers Name Role Phone No Ref-Primary, Physician Primary Care Provider [phone] Reason for Visit Reason Onset Date Comments Refill Request 11/30/2017 continues on atorvas tatin 40mg Encounter Details Date Type Department Care Team Description 11/30/2017 [facility]ill [facility] Jarrett, Juan Alegre, Refill Request (continues Clinic Annika HERBERT on atorvastatin 40mg) 6405 [facility] 6405 [facility] [address] [place] [address] [place] [address]32[address] (Wo rk) Social History Tobacco Use Types [...] Time MRSA-Contact IsolationComment: 0 04/26/2021 11:03 AM SCREEN PRINTING 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 Care Teams Machine Fancy Stitcher Relationship Specialty Start Date End Date No Ref-Primary, Physician PCP - General 07/03/14 12/03/21 documented as of this encounter
--- OUTSIDE RECORDS SUMMARY | 2022-03-26 21:34 | XMS_ITS | Encounter Summary ---
:1960 Author Organization [place] Address [address] [place] [address] Care Team Providers Name Role Phone Unavailable Primary Care Provider Unavailable Encounter Details Date Type Department Care Team Description 08/20/2010 Historic Results [facility] Heart Unknown, Doct or, Clinic [address] [place] [address] Social History Tobacco Use Types Packs/Day Years [...] GEMMS Historical Results (08/20/2010 12:00 AM CDT) [facility] gist Method Time Signature Triglycerides 146 [...] MRSA-Contact IsolationComment: 0 04/26/2021 11:03 AM TEAM FOREMAN Infection erroneous documented as of this encounter
--- OUTSIDE RECORDS SUMMARY | 2022-03-26 21:34 | XMS_ITS | Encounter Summary ---
:1960 Author Organization [place] Address [facility] [place] [address] Care Team Providers Name Role Phone No Ref-Primary, Physician Primary Care Provider [phone] Juan Farias MD Unavailable Edilia Trejo APRN CHEMICAL LIBRARIAN Unavailable Glendy vailable Juan Farias MD Unavailable Denise Connell-C Unavailable [phone] Edilia Trejo APRN CHEMICAL LIBRARIAN Unavailable Glendy vailable Denise Connell-C Unavailable [phone] Juan Farias MD Primary Care Provider Dana Barry PA-C Unavailable [phone] Encounter Details Date Type Department Care Team Description 08/20/2010 Office Visit-[facility] Heart Juan Farias MD [address] [place] [address] [place] [address] [phone] Social History Tobacco Use Types Packs/Day Years [...] Referring Physician: JEROME MORENO Referring Clinic: [facility] CURRENT DIAGNOSES 1. - Hypercholesterolemia, 272.0 2. [...] in June,, when he was hospitalized at [facility] for alcohol withdrawal issues. On examination today [...] of - [place]; Job Description - makes [employer]; Hours Worked - 60 hours per week; [...] IsolationComment: 0 04/26/2021 11:03 AM REAL ESTATE REP Infection erroneous MRSA 05/13/2021 05/13/2021 Rule Out C-difficile 12/06/2021 12/06/202112/0712/07/2021 8:46 AM CDT documented as of this encounter Care Teams Tooth Cutter Clutch Relationship Specialty Start Date End Date No Ref-Primary, PCP - General 07/03/14 12/03/21 Physician Juan Farias MD PCP - General Cardiovascular Disease 12/04/[address] [place] [address] Juan Farias MD Assigned Heart and 02/14/20 10/03/[address] Vascular Provider [address] [place] [address] Maya, Assigned Heart and 10/04/20 Edilia Chapman APRN Vascular Provider CHEMICAL LIBRARIAN NO INFO AVAILABLE 02/10/2022 Juan Farias MD Assigned Heart and 04/04/21 07/31/[address] Vascular Provider [address] [place] [address] Denise Connell Physician Braiding Machine Operator Cardiovascular Disease 08/12/21 MARIETTA Watson [address] [place] [address] Maya, Assigned Heart and 08/01/21 2 Edilia Chapman APRN Vascular Provider CHEMICAL LIBRARIAN NO INFO AVAILABLE 02/10/2022 Denise Connell Assigned Heart and 08/22/21 01/14/22 MARIETTA Watson Vascular Provider [address] [place], [place] [address] Dana Barry Assigned Heart and 01/15/22 MARIETTA Teague Vascular Provider [address] [place], [place] [address] documented as of this encounter
--- OUTSIDE RECORDS SUMMARY | 2022-03-26 21:34 | XMS_ITS | Encounter Summary ---
:1960 Author Organization [place] Address [address] [place] [address]. [place] [address] Care Team Providers Name Role Phone No Ref-Primary, Physician Primary Care Provider [phone] Reason for Visit Reason Comments Annual Visit FU Cardiac testing lab Encounter Details Date Type Department Care Team Description 11/29/2018 Office Visit [facility] Feliz Roy Hyperlipid emia LDL goal <100 (Primary Dx); Heart Clinic Annika Alegre MD Essential hypertension; [address] [facility] [address] [facility] Elev ed fasting glucose [address] [place] [address] [place] 1198[address] Social History Tobacco Use Types Packs/Day Years [...] Brown in Cardiology Clinic today at the [facility] Heart [facility] in [place] for reevaluation of hypertension and dyslipidemia. In [...] of coronary artery disease. FELIZ ROY MD, [facility] [place]: JOELLE Name: ELIJAH BROWN MRN: [id number] Account: [id number] : 1960 Service Date: 11/29/2018 Document: [id number] Feliz Roy MD - 11/29/2018 11:15 AM CDT HPI and Plan: See dictation Orders Placed This Encounter Procedures ??? Basic metabolic panel ??? Lipid Profile ??? ALT ??? Hemoglobin A1c ??? Follow-Up with Geospatial Technologist No orders of the defined types were [...] on phone: None Gets together: None Attends anglican service: None Active member of club or organization: None Attends meetings of clubs or organizations: None Relationship status: None ??? Intimate partner violence: Fear of current or ex partner: None Emotionally abused: None Physically abused: None Forced sexual activity: None Other Topics Concern ??? Parent/sibling w/ CABG, [place] or angioplasty before 65F 55M? No ??? [...] 5.7 (H) 0 - 5.6 % 01/27/2020 [facility] 4:00 PM CDT [facility] Comment: Normal <5.7% Prediabetes 5.7-6.4% ??Diab etes 6.5% or higher - adopted from ADA consensus guidelines. Specimen Anatomical Collection Method Collection Time Receive d Time (Source) Location / / Volume Laterality Blood specimen 01/27/2020 2:58 PM 020 3:03 (specimen) CDT PM CDT Feliz Roy MD LAB - BLOOD ORDERABLES Performing Organization Address City/State/ZIP Code Phon e Number M [facility] [address] [place] [address] [facility] [address] [place] [address], U [phone] ALT (01/27/2020 2:58 PM CDT) athologist Signature ALT 46 0 - 70 U/L 01/27/2020 [facility] 3:54 PM CDT HOSPITAL Specimen Anatomical Collection Method Collection Time Receive d Time (Source) Location / / Volume Laterality Blood specimen 01/27/2020 2:58 PM 020 3:03 (specimen) CDT PM CDT Feliz Roy MD LAB - BLOOD ORDERABLES Performing Organization Address City/State/ZIP Code Phon e Number M [facility] [address] [place], [place] [address] [facility] [address] [place], [place] [address], [facility] [phone] (ABNORMAL) Lipid Profile (01/27/2020 2:58 PM CDT) athologist Signature Cholesterol 222 (H) <200 mg/dL 01/27/2020 [facility] 3:54 PM [facility] Comment: Desirable: <200 mg/dl Triglycerides 99 <150 mg/dL 01/27/2020 3:54 PM CDT [facility] Comment: Fasting specimen HDL Cholesterol 87 >39 mg/dL 01/27/2020 3:54 PM [facility] LDL Cholesterol 115 (H) <100 mg/dL 01/27/2020 3:54 PM [facility] Comment: Above desirable: ??100-129 mg/dl Borderline High: ??130-159 mg/dL High: ? 160-189 mg/dL Very high: ? >189 mg/dl Non HDL Cholesterol 135 (H) <130 mg/dL 01/27/2020 3:54 PM CDT [facility] Comment: Above Desirable: ??130-159 mg/dl Borderline high: ??160-189 mg/dl High: ? 190-219 mg/dl Very high: ? >219 mg/dl Specimen Anatomical Collection Method Collection Time Receive d Time (Source) Location / / Volume Laterality Blood specimen 01/27/2020 2:58 PM 020 3:03 (specimen) CDT PM CDT Feliz Roy MD LAB - BLOOD ORDERABLES Performing Organization Address City/State/ZIP Code Phon e Number M [facility] [address] [place] [address] [facility] [address] [place] [address], [facility] [phone] Basic metabolic panel (01/27/2020 2:58 PM CDT) athologist Signature Sodium 133 133 - 144 01/27/2020 [facility] mmol/L 3:46 PM [facility] Potassium 3.7 3.4 - 5.3 01/27/2020 [facility] mmol/L 3:46 PM [facility] Chloride 101 94 - 109 01/27/2020 [facility] mmol/L 3:46 PM [facility] Carbon Dioxide 24 20 - 32 01/27/2020 [facility] mmol/L 3:54 PM [facility] Anion Gap 8 3 - 14 01/27/2020 [facility] mmol/L 3:54 PM [facility] Glucose 85 70 - 99 01/27/2020 [facility] mg/dL 3:54 PM [facility] Comment: Fasting specimen Urea Nitrogen 13 7 - 30 mg/dL 01/27/2020 3:54 PM [facility] Creatinine 1.10 0.66 - 1.25 mg/dL 01/27/2020 3:54 PM [facility] GFR Estimate 74 >60 01/27/2020 3:54 PM [facility] mL/min/{1.73_m2} HOSPITAL Comment: Non GFR Calc Starting [...] 8.5 - 10.1 mg/dL 01/27/2020 3:54 PM [facility] Specimen Anatomical Collection Method Collection Time Receive d Time (Source) Location / / Volume Laterality Blood specimen 01/27/2020 2:58 PM 020 3:03 (specimen) CDT PM CDT Feliz Roy MD LAB - BLOOD ORDERABLES Performing Organization Address City/State/ZIP Code Phon e Number M [facility] [address] [place], [place] [address] [facility] [address] [phone] documented in this encounter Visit Diagnoses Diagnosis Hyperlipidemia LDL goal <100 - Primary Other and unspecified hyperlipidemia Essential hypertension Unspecified essential hypertension Elevated fasting glucose Impaired fasting glucose documented in this encounter Additional Health Concerns Infection Onset Date Last Indicated Resolved Time MRSA-Contact IsolationComment: 0 04/26/2021 11:03 AM MUSICAL PERFORMER Infection erroneous documented as of this encounter Care Teams Technical Account Executive Relationship Specialty Start Date End Date No Ref-Primary, Physician PCP - General 07/03/14 12/03/21 documented as of this encounter
--- OUTSIDE RECORDS SUMMARY | 2022-03-26 21:34 | XMS_ITS | Encounter Summary ---
:1960 Author Organization [place] Address [facility] [place] [address] Care Team Providers Name Role Phone No Ref-Primary, Physician Primary Care Provider [phone] Juan Farias MD Unavailable Edilia Trejo APRN MIRROR INSTALLER Unavailable Glendy vailable Juan Farias MD Unavailable Denise Connell-C Unavailable [phone] Edilia Trejo APRN MIRROR INSTALLER Unavailable Glendy vailable Denise Connell-C Unavailable [phone] Juan Farias MD Primary Care Provider Dana Barry PA-C Unavailable [phone] Encounter Details Date Type Department Care Team Description 06/05/2013 Office Visit-[facility] Heart Juan Farias MD [address] [place] [address] [place] [address] [phone] Social History Tobacco Use Types Packs/Day Years [...] old Referring Physician: JEROME MORENO Referring Clinic: [facility] CURRENT DIAGNOSES 1. - Hypertension, benign, 401.1 [...] with female partner; Place of - [place]; Job Description - makes [employer]; Hours Worked - 50 hours per week; [...] Time MRSA-Contact IsolationComment: 0 04/26/2021 11:03 AM MICROBIOLOGY PROFESSOR Infection erroneous MRSA 05/13/2021 05/13/2021 Rule Out C-difficile 12/06/2021 12/06/2021 12/07/2021 8:46 AM CDT documented as of this encounter Care Teams Ground Water Technician Relationship Specialty Start Date End Date No Ref-Primary, PCP - General 07/03/14 12/03/21 Physician Juan Farias MD PCP - General Cardiovascular Disease 12/04/21 [address] [place] [address] Juan Farias MD Assigned Heart and 02/14/20 10/03/20 [address] Vascular Provider [address] [place] [address] Maya, Assigned Heart and 10/04/20 Edilia Chapman APRN Vascular Provider MIRROR INSTALLER NO INFO AVAILABLE 02/10/2022 Juan Farias MD Assigned Heart and 04/04/21 07/31/21 [address] Vascular Provider [address] [place], [place] [address] Denise Connell Physician Parts Manager Cardiovascular Disease 08/12/21 MARIETTA Watson [address] [place], [place] [address] Maya, Assigned Heart and 08/01/21 2 Edilia Chapman APRN Vascular Provider GUILHERME NO INFO AVAILABLE 02/10/2022 Denise Connell Assigned Heart and 08/22/21 01/14/22 MARIETTA Watson Vascular Provider [address] [place], [place] [address] Dana Barry Assigned Heart and 01/15/22 MARIETTA Teague Vascular Provider [address] [place], [place] [address] documented as of this encounter
--- OUTSIDE RECORDS SUMMARY | 2022-03-26 21:34 | XMS_ITS | Encounter Summary ---
:1960 Author Organization [place] Address [address] [place] [address] Care Team Providers Name Role Phone Unavailable Primary Care Provider Unavailable Encounter Details Date Type Department Care Team Description 04/25/2012 Historic Results [facility] Heart Unknown, Doct or, Clinic [place] [id number] [place] [address] Social History Tobacco Use Types Packs/Day Years [...] 12:00 AM Resu lts for this RESULTS PHOTOENGRAVING HELPER procedure are i n the results section. documented in this encounter Results (ABNORMAL) GEMMS Historical Results (04/25/2012 12:00 AM PHOTOENGRAVING HELPER) [facility] gist Method Time Signature Triglycerides 167 [...] Time MRSA-Contact IsolationComment: 0 04/26/2021 11:03 AM PHOTOENGRAVING HELPER Infection erroneous documented as of this encounter
--- OUTSIDE RECORDS SUMMARY | 2022-03-26 21:34 | XMS_ITS | Encounter Summary ---
:1960 Author Organization [place] Address [address] [place] [address] Care Team Providers Name Role Phone No Ref-Primary, Physician Primary Care Provider [phone] Encounter Details Date Type Department Care Team Description 08/29/2016 Telephone [facility] Heart Clinic Daryl Medina RN [place] [address] [facility] [address] [place] [address] Social History Tobacco Use Types [...] Time MRSA-Contact IsolationComment: 0 04/26/2021 11:03 AM DOBIE WORKER Infection erroneous documented as of this encounter Care Teams Manager Reading Relationship Specialty Start Date End Date No Ref-Primary, Physician PCP - General 07/03/14 12/03/21 documented as of this encounter
--- OUTSIDE RECORDS SUMMARY | 2022-03-26 21:34 | XMS_ITS | Encounter Summary ---
:1960 Author Organization [place] Address [facility] [place] [address] Care Team Providers Name Role Phone No Ref-Primary, Physician Primary Care Provider [phone] Juan Farias MD Unavailable Edilia Trejo APRN OIL WELL DIRECTIONAL SURVEYOR Unavailable Glendy vailable Juan Farias MD Unavailable Denise Connell-C Unavailable [phone] Edilia Trejo APRN OIL WELL DIRECTIONAL SURVEYOR Unavailable Glendy vailable Denise Connell-C Unavailable [phone] Juan Farias MD Primary Care Provider Dana Barry PA-C Unavailable [phone] Encounter Details Date Type Department Care Team Description 04/25/2012 Office Visit-[facility] Heart Juan Farias MD [address] [place] [address] [place] [address] [phone] Social History Tobacco Use Types Packs/Day Years [...] old Referring Physician: JEROME MORENO Referring Clinic: [facility] CURRENT DIAGNOSES 1. - Hypertension, benign, 401.1 [...] had the opportunity to see Mr. Marcelino Borwn in cardiology clinic today for reevaluation of [...] female partner; Place of - [place]; Job Description - makes [employer]; Hours Worked - 60 hours per week; [...] Time MRSA-Contact IsolationComment: 0 04/26/2021 11:03 AM VISUAL EDUCATOR Infection erroneous MRSA 05/13/2021 05/13/2021 Rule Out C-difficile 12/06/2021 12/06/2021 12/07/2021 8:46 AM CDT documented as of this encounter Care Teams Litigation Claim Representative Relationship Specialty Start Date End Date No Ref-Primary, PCP - General 07/03/14 12/03/21 Physician Juan Farias MD PCP - General Cardiovascular Disease 12/04/21 [address] [place] [address] Juan Farias MD Assigned Heart and 02/14/20 10/03/20 [address] Vascular Provider [address] [place], [place] [id number] Maya, Assigned Heart and 10/04/20 Edilia Chapman APRN Vascular Provider GUILHERME NO INFO AVAILABLE 02/10/2022 Juan Farias MD Assigned Heart and 04/04/21 07/31/[address] Vascular Provider [address] [place] [address] Denise Connell Physician Professor Of Religious Studies Cardiovascular Disease 08/12/21 MARIETTA Watson [address] [place], [place] [phone] Maya, Assigned Heart and 08/01/21 2 Edilia Chapman APRN Vascular Provider OIL WELL DIRECTIONAL SURVEYOR NO INFO AVAILABLE 02/10/2022 Denise Connell Assigned Heart and 08/22/21 01/14/22 MARIETTA Watson Vascular Provider [address] [place], [place] [address] Dana Baryr Assigned Heart and 01/15/22 MARIETTA Teague Vascular Provider [address] [place], [place] [id number] documented as of this encounter
--- OUTSIDE RECORDS SUMMARY | 2022-03-26 21:34 | XMS_ITS | Encounter Summary ---
:1960 Author Organization [place] Address [address] [place] [address] Care Team Providers Name Role Phone Unavailable [...] as of this encounter Progress Notes Interface, Roof Mechanic - 07/10/2010 8:22 AM CDT Discharge Summary - Reason for Discharge Discharge from facility, To home - Progress toward Goals met, see daily notes for details. pt not achieving short term seen by documenting therapist. Info per chart. goals/mcfp goals Signatures Kimberly Braden (PT)[Signed 07:36] Authored: Discharge Summary Co Signer: Discharge Summary Joan Blackburn (PT Regulatory Product Manager)[Signed 15:41] Authored: Discharge Summary documented in this encounter Plan of Treatment Not on filedocumented as of this encounter Visit Diagnoses Not on filedocumented in this encounter Additional Health Concerns Infection Onset Date Last Indicated Resolved Time MRSA-Contact IsolationComment: 0 04/26/2021 11:03 AM AUTOMATION AND CONTROLS SUPERVISOR Infection erroneous documented as of this encounter
--- OUTSIDE RECORDS SUMMARY | 2022-03-26 21:34 | XMS_ITS | Encounter Summary ---
:1960 Author Organization [place] Address [address] [place] [address] Care Team Providers Name Role Phone No Ref-Primary, Physician Primary Care Provider [phone] Encounter Details Date Type Department Care Team Description 09/15/2017 Orders Only [facility] Heart Mixe d hyperlipidemia; Clinic [place] Anna mcmullen Benign essential hypertensio n [address] [facility] [address] [place] [address] Social History Tobacco Use Types Packs/Day Years [...] AT mmol/L 9:16 AM CDT [facility] Potassium 4.1 3.5 - 5.1 09/15/2017 [facility] mmol/L 9:16 AM CDT [facility] Chloride 103 98 - 107 09/15/2017 [facility] mmol/L 9:16 AM CDT [facility] Carbon Dioxide 25 23 - 29 09/15/2017 [facility] mmol/L 9:16 AM T [facility] Anion Gap 14.1 6 - 17 09/15/2017 [facility] mmol/L 9:16 AM T [facility] Glucose 126 (H) 70 - 105 09/15/2017 [facility] mg/dL 9:16 AM T [facility] Comment: Fasting specimen Urea Nitrogen 14 7 - 30 mg/dL 09/15/2017 9:16 AM [facility] Creatinine 1.22 0.70 - 1.30 09/15/2017 9:16 AM [facility] T AT mg/dL T [facility] GFR Estimate 62 >60 09/15/2017 9:16 AM [facility] T AT mL/min/1.7m2 T [facility] GFR Estimate If 75 >60 09/15/2017 9:16 AM [facility] AT Black mL/min/1.7m2 T [facility] Calcium 9.7 8.5 - 10.5 09/15/2017 9:16 AM [facility] mg/dL T [facility] Specimen Anatomical Collection Method Collection Time Receive d Time (Source) Location / / Volume Laterality Blood specimen 09/15/2017 8:20 AM 018 8:21 (specimen) CDT AM CDT Juan Farias MD LAB - BLOOD ORDERABLES Performing Organization Address City/State/ZIP Code Phon e Number [facility] [address] [place] [address] [address] ALT (09/15/2017 8:20 AM CDT) P athologist Signature ALT 8 5 - 30 U/L 09/15/2017 [facility] AT 9:16 AM T [facility] Specimen Anatomical Collection Method Collection Time Receive d Time (Source) Location / / Volume Laterality Blood specimen 09/15/2017 8:20 AM 018 8:21 (specimen) CDT AM CDT Juan Farias MD LAB - BLOOD ORDERABLES Performing Organization Address City/State/ZIP Code Phon e Number [facility] [address] [place] [address] [address] [address] Lipid Profile (09/15/2017 8:20 AM CDT) P athologist Signature Cholesterol 163 <200 mg/dL 09/15/2017 [facility] AT 9:16 AM CDT [facility] Triglycerides 119 <150 mg/dL 09/15/2017 [facility] AT 9:16 AM T [facility] Comment: Fasting specimen HDL Cholesterol 46 >39 mg/dL 09/15/2017 9:16 AM [facility] AT [facility] LDL Cholesterol 93 <100 mg/dL 09/15/2017 9:16 AM [facility] AT Calculated [facility] Comment: Desirable: <100 mg/dl Non HDL Cholesterol 117 <130 mg/dL 09/15/2017 9:16 AM [facility] AT [facility] Specimen Anatomical Collection Method Collection Time Receive d Time (Source) Location / / Volume Laterality Blood specimen 09/15/2017 8:20 AM 018 8:21 (specimen) CDT AM CDT Juan Farias MD LAB - BLOOD ORDERABLES Performing Organization Address City/State/ZIP Code Phon e Number [facility] [address] [place] [address] [address] [address] documented in this encounter Visit Diagnoses Diagnosis Mixed hyperlipidemia Benign essential hypertension Essential hypertension, benign documented in this encounter Additional Health Concerns Infection Onset Date Last Indicated Resolved Time MRSA-Contact IsolationComment: 0 04/26/2021 11:03 AM EPITAXIAL REACTOR OPERATOR Infection erroneous documented as of this encounter Care Teams Hardwood Flooring Specialist Relationship Specialty Start Date End Date No Ref-Primary, Physician PCP - General 07/03/14 12/03/21 documented as of this encounter
--- OUTSIDE RECORDS SUMMARY | 2022-03-26 21:34 | XMS_ITS | Encounter Summary ---
:1960 Author Organization [place] Address [address] [place] [address] Care Team Providers Name Role Phone No Ref-Primary, Physician Primary Care Provider Encounter Details Date Type Department Care Team Description 08/04/2016 Orders Only [facility] Juan Farias, Mixed hyperlipidemia; Heart Clinic [place] Essential hypertension Laboratory [address] [facility] [address] [place] [phone] [facility] [address] [place] [address] [place] [address] [phone] Social History Tobacco Use Types Packs/Day Years [...] 136 - 145 [facility] mmol/L [facility] A Potassium 5.2 (H) 3.5 - 5.1 [facility] mmol/L [facility] Chloride 105 98 - 107 [facility] mmol/L [facility] A Carbon Dioxide 26 23 - 29 [facility] mmol/L [facility] Anion Gap 12.2 6 - 17 [facility] mmol/L [facility] A Glucose 118 (H) 70 - 105 [facility] mg/dL [facility] A Urea Nitrogen 22 7 - 30 [facility] mg/dL [facility] A Creatinine 1.57 (H) 0.70 - [facility] 1.30 mg/dL [facility] A GFR Estimate 46 (L) >60 [facility] mL/min/1.7 [facility] m2 A GFR Estimate If 56 (L) >60 [facility] AT Black mL/min/1.7 [facility] m2 A Calcium 9.4 8.5 - 10.5 [facility] mg/dL [facility] A Specimen Anatomical Collection Method Collection Time Receive d Time (Source) Location / / Volume Laterality Blood specimen 08/04/2016 7:15 AM 017 8:38 (specimen) CDT AM CDT Juan Farias MD LAB - BLOOD ORDERABLES Performing Organization Address City/[facility]/ZIP Code Phon e Number [facility] [address] [place] [address] [address] ALT (08/04/2016 7:15 AM CDT) P athologist Signature ALT 9 5 - 30 U/L [facility] Specimen Anatomical Collection Method Collection Time Receive d Time (Source) Location / / Volume Laterality Blood specimen 08/04/2016 7:15 AM 017 7:16 (specimen) CDT AM CDT Juan Farias MD LAB - BLOOD ORDERABLES Performing Organization Address City/[facility]/ZIP Code Phon e Number [facility] [address] [address] [address] Lipid Profile (08/04/2016 7:15 AM CDT) athologist Signature Cholesterol 146 <200 mg/dL [facility] Triglycerides 64 <150 mg/dL [facility] Comment: Fasting specimen HDL Cholesterol 43 >39 mg/dL [facility] LDL Cholesterol Calculated 90 <100 mg/dL [facility] Comment: Desirable: <100 mg/dl Non HDL Cholesterol 103 <130 mg/dL [facility] Specimen Anatomical Collection Method Collection Time Receive d Time (Source) Location / / Volume Laterality Blood specimen 08/04/2016 7:15 AM 017 7:16 (specimen) CDT AM CDT Juan Farias MD LAB - BLOOD ORDERABLES Performing Organization Address City/State/ZIP Code Phon e Number [facility] [address] [address] [address] documented in this encounter Visit Diagnoses Diagnosis Mixed hyperlipidemia Essential hypertension Unspecified essential hypertension documented in this encounter Additional Health Concerns Infection Onset Date Last Indicated Resolved Time MRSA-Contact IsolationComment: 0 04/26/2021 11:03 AM BRANCH SERVICES MANAGER Infection erroneous documented as of this encounter Care Teams Executive Talent Acquisition Consultant Relationship Specialty Start Date End Date No Ref-Primary, Physician PCP - General 07/03/14 12/03/21 documented as of this encounter
--- OUTSIDE RECORDS SUMMARY | 2022-03-26 21:34 | XMS_ITS | Encounter Summary ---
:1960 Author Organization [place] Address [address] [place] [address] Care Team Providers Name Role Phone No Ref-Primary, Physician Primary Care Provider Reason for Visit Reason Onset Date Comments Results 08/04/2016 BMP Encounter Details Date Type Department Care Team Description 08/04/2016 Telephone [facility] Heart Rahgu Pandey, Results (BMP) Clinic Annika HORNE [address] [facility] [address] [place] [phone] Social History Tobacco Use Types Packs/Day Years [...] showed a K+ of 5.2 and a Twitchell Operator of 1.57. Per Dr. Farias , he [...] Time Signature Sodium 137 133 - 144 [place] mmol/L [facility] Potassium 4.0 3.4 - 5.3 [place] mmol/L [facility] Chloride 104 94 - 109 [place] mmol/L [facility] Carbon Dioxide 26 20 - 32 [place] mmol/L [facility] Anion Gap 7 3 - 14 [place] mmol/L [facility] Glucose 88 70 - 99 [place] mg/dL [facility] Urea Nitrogen 19 7 - 30 [place] mg/dL [facility] Creatinine 1.31 (H) 0.66 - [place] 1.25 mg/dL [facility] GFR Estimate 57 (L) >60 [place] mL/min/1.[address] Comment: Non GFR Calc GFR Estimate If Black 69 >60 mL/min/1.7m2 F [facility] Comment: GFR Calc Calcium 9.0 8.5 - 10.1 mg/dL [facility] Specimen Anatomical Collection Method Collection Time Receive d Time (Source) Location / / Volume Laterality Blood specimen 08/12/2016 3:03 PM 017 3:04 (specimen) CDT PM CDT Juan Farias MD LAB - BLOOD ORDERABLES Performing Organization Address City/State/ZIP Code Phon e Number M [facility] [address] [place] [place] [address] [facility] [address] [place] [address] [phone] documented in this encounter Visit Diagnoses Diagnosis Benign essential hypertension - Primary Essential hypertension, benign documented in this encounter Additional Health Concerns Infection Onset Date Last Indicated Resolved Time MRSA-Contact IsolationComment: 0 04/26/2021 11:03 AM NURSE DISCHARGE PLANNER Infection erroneous documented as of this encounter Care Teams Bread Baker Relationship Specialty Start Date End Date No Ref-Primary, Physician PCP - General 07/03/14 12/03/21 documented as of this encounter
--- OUTSIDE RECORDS SUMMARY | 2022-03-26 21:34 | XMS_ITS | Encounter Summary ---
:1960 Author Organization [place] Address [address] [place] [address] Care Team Providers Name Role Phone No Ref-Primary, Physician Primary Care Provider Encounter Details Date Type Department Care Team Description 08/05/2015 Orders Only [facility] Heart [facility] Mixed hyperlipidemia [place] [facility] [address] [facility] [address] [place] [address] Social History Tobacco Use Types Packs/Day Years [...] 5 - 30 U/L [facility] Specimen Anatomical Collection Method Collection Time Receive d Time (Source) Location / / Volume Laterality Blood specimen 08/05/2015 3:11 PM 016 3:12 (specimen) CDT PM CDT Juan Farias MD LAB - BLOOD ORDERABLES Performing Organization Address City/State/ZIP Code Phon e Number [facility] [address] [facility] [place] [address] [address] (ABNORMAL) Lipid Profile (08/05/2015 3:11 PM CDT) P athologist Signature Cholesterol 163 <200 mg/dL [facility]ART AT [facility] Triglycerides 145 <150 mg/dL [facility] HEART AT [facility] Comment: Fasting specimen HDL Cholesterol 39 (L) >39 mg/dL [facility] LDL Cholesterol Calculated 95 <100 mg/dL [facility] Comment: Desirable: <100 mg/dl Non HDL Cholesterol 124 <130 mg/dL [facility]ART AT [facility] Specimen Anatomical Collection Method Collection Time Receive d Time (Source) Location / / Volume Laterality Blood specimen 08/05/2015 3:11 PM 016 3:12 (specimen) CDT PM CDT Juan Farias MD LAB - BLOOD ORDERABLES Performing Organization Address City/State/ZIP Code Phon e Number [facility] HEART AT [facility] [address] [address] [address] documented in this encounter Visit Diagnoses Diagnosis Mixed hyperlipidemia documented in this encounter Additional Health Concerns Infection Onset Date Last Indicated Resolved Time MRSA-Contact IsolationComment: 0 04/26/2021 11:03 AM SHAMPOOER Infection erroneous documented as of this encounter Care Teams Director Metabolism Relationship Specialty Start Date End Date No Ref-Primary, Physician PCP - General 07/03/14 12/03/21 documented as of this encounter
--- OUTSIDE RECORDS SUMMARY | 2022-03-26 21:34 | XMS_ITS | Encounter Summary ---
:1960 Author Organization [place] Address [address] [place] [address] Care Team Providers Name Role Phone Unavailable Primary Care Provider Unavailable Reason for Visit Reason Onset Date Comments Previsit 06/26/2014 07/03/[address] Farias Encounter Details Date Type Department Care Team Description 06/26/2014 PRE VISIT [facility] Heart Juan Farias, Previsit (07/03/14 OV Clinic [place] HER[place] with Dr. Farias) 6[address] [facility] 6[address] [facility] [address] [place] [phone] [place] [id number] Social History Tobacco Use Types Packs/Day Years [...] MRSA-Contact IsolationComment: 0 04/26/2021 11:03 AM SAP PORTAL CONSULTANT Infection erroneous documented as of this encounter
--- OUTSIDE RECORDS SUMMARY | 2022-03-26 21:34 | XMS_ITS | Encounter Summary ---
:1960 Author Organization [place] Address [address] [place] [address] Care Team Providers Name Role Phone Unavailable Primary Care Provider Unavailable Reason for Visit Reason Onset Date Comments Refill Request 05/16/2014 Lipitor, Lisinopril/ Refill letter Encounter Details Date Type Department Care Team Description 05/16/2014 Refill [facility] Heart Juan Farias, Refill Request (Lipitor, Clinic [place] Lisinopril/Refill [address] [facility] [address] [facility] [address] letter) [address] [place] [address] [place] [phone] (Wo rk) Social History Tobacco Use Types [...] Time MRSA-Contact IsolationComment: 0 04/26/2021 11:03 AM DRESS DESIGNER Infection erroneous documented as of this encounter
--- OUTSIDE RECORDS SUMMARY | 2022-03-26 21:34 | XMS_ITS | Encounter Summary ---
:1960 Author Organization [place] Address [address] [place] [address] Care Team Providers Name Role Phone No Ref-Primary, Physician Primary Care Provider Reason for Referral - Closed Specialty Diagnoses / Procedures Referred By Contact Refer red To Contact Diagnoses Mixed hyperlipidemia Feliz Roy MD [address] [place] [address] Referral ID Status Reason Start Date Expiration Date Visits Requ ested Visits Authorized [id number] Closed 08/04/2016 08/04/2017 1 1 Reason for Visit Reason Comments Hypertension Annual FU Hyperlipidemia - Closed Specialty Diagnoses / Procedures Referred By Contact Refer red To Contact Diagnoses Mixed hyperlipidemia Feliz Roy MD [address] [place] [address] Referral ID Status Reason Start Date Expiration Date Visits Requ ested Visits Authorized [id number] Closed 07/03/2015 12/30/2015 1 1 Encounter Details Date Type Department Care Team Description 08/05/2015 Office Visit [facility] Feliz Roy, Mixed hyperlipidemia Heart Clinic Ann[place] HERBERT [address] [place] [address] [facility] [address] [place] [address] [place] [address] [phone] Social History Tobacco Use Types Packs/Day Years [...] Lipid Profile ??? ALT ??? Follow-Up with Computing Systems Mechanic No orders of the defined types were [...] [facility] [address] [place] [address] Feliz Roy MD - 08/05/2015 4:44 PM CDT I had the opportunity to see Mr. Kayden Brown in Cardiology Clinic today at the [facility] in [place] for reevaluation of hypertension and dyslipidemia. Fortunately, [...] will contact me sooner. FELIZ ROY MD, [facility] [place]: [id number] Name: ELIJAH BROWN MRN: [id number] Account: [id number] : 1960 Service Date: 08/05/2015 Document: [id number] documented in this encounter Plan of Treatment Scheduled Referrals Name Type Priority Associated Diagnoses Order S chedule Follow-Up with Referral Routine Mixed hyperlipidemia Expec jacques: 08/04/2016 Computing Systems Mechanic (Approximate), Expires: 2016 documented as of this encounter Results ALT (08/04/2016 7:15 AM CDT) athologist Signature ALT 9 5 - 30 U/L [facility] AT [facility] Specimen Anatomical Collection Method Collection Time Receive d Time (Source) Location / / Volume Laterality Blood specimen 08/04/2016 7:15 AM 017 7:16 (specimen) CDT AM CDT Feliz Roy MD LAB - BLOOD ORDERABLES Performing Organization Address City/[facility]/ZIP Code Phon e Number [facility]ART AT [facility] [address] [address] [address] Lipid Profile (08/04/2016 7:15 AM CDT) athologist Signature Cholesterol 146 <200 mg/dL [facility] AT [facility] Triglycerides 64 <150 mg/dL [facility] AT [facility] Comment: Fasting specimen HDL Cholesterol 43 >39 mg/dL [facility]ART AT [facility] LDL Cholesterol Calculated 90 <100 mg/dL [facility] Comment: Desirable: <100 mg/dl Non HDL Cholesterol 103 <130 mg/dL [facility]ART AT [facility] Specimen Anatomical Collection Method Collection Time Receive d Time (Source) Location / / Volume Laterality Blood specimen 08/04/2016 7:15 AM 017 7:16 (specimen) CDT AM CDT Feliz Roy MD LAB - BLOOD ORDERABLES Performing Organization Address City/[facility]/ZIP Code Phon e Number [facility]ART AT [facility] [address] [place] [address] [address] documented in this encounter Visit Diagnoses Diagnosis Mixed hyperlipidemia documented in this encounter Additional Health Concerns Infection Onset Date Last Indicated Resolved Time MRSA-Contact IsolationComment: 0 04/26/2021 11:03 AM SUBASSEMBLY SUPERVISOR Infection erroneous documented as of this encounter Care Teams Head Resident Relationship Specialty Start Date End Date No Ref-Primary, Physician PCP - General 07/03/14 12/03/21 documented as of this encounter
--- OUTSIDE RECORDS SUMMARY | 2022-03-26 21:34 | XMS_ITS | Encounter Summary ---
:1960 Author Organization [place] Address [address] [place] [address] Care Team Providers Name Role Phone No Ref-Primary, Physician Primary Care Provider Reason for Visit Reason Onset Date Comments Results 08/12/2016 BMP Encounter Details Date Type Department Care Team Description 08/12/2016 Telephone [facility] Heart Raghu Shultz, Results (BMP) Clinic Annika HORNE [address] [facility] [address] [place] [address] Social History Tobacco Use Types Packs/Day [...] Time MRSA-Contact IsolationComment: 0 04/26/2021 11:03 AM SALES DEMONSTRATOR Infection erroneous documented as of this encounter Care Teams Umbrella Finisher Relationship Specialty Start Date End Date No Ref-Primary, Physician PCP - General 07/03/14 12/03/21 documented as of this encounter
--- OUTSIDE RECORDS SUMMARY | 2022-03-26 21:34 | XMS_ITS | Encounter Summary ---
:1960 Author Organization [place] Address [address] [place] [address]. [place] [address] Care Team Providers Name Role Phone No Ref-Primary, Physician Primary Care Provider Reason for Visit Reason Onset Date Comments Refill Request 09/02/2015 Lipitor, Lisinopril OV 07/2015 Encounter Details Date Type Department Care Team Description 09/02/2015 Refill [facility] Heart Juan Farias, Refill Request (Lipitor, Clinic [place] HER[place] Lisinopril OV 07/2015) [address] [place] [address] [place] [address] (Wo rk) Social History Tobacco Use Types [...] Time MRSA-Contact IsolationComment: 0 04/26/2021 11:03 AM WILDLAND FIRE OPERATIONS SPECIALIST Infection erroneous documented as of this encounter Care Teams Outsole Tacker Relationship Specialty Start Date End Date No Ref-Primary, Physician PCP - General 07/03/14 12/03/21 documented as of this encounter
--- OUTSIDE RECORDS SUMMARY | 2022-03-26 21:34 | XMS_ITS | Encounter Summary ---
:1960 Author Organization [place] Address [address] [place] [address] Care Team Providers Name Role Phone No Ref-Primary, Physician Primary Care Provider [phone] Reason for Visit Reason Onset Date Comments Refill Request 09/05/2017 amlodipine Encounter Details Date Type Department Care Team Description 09/05/2017 Refill [facility] Heart DucomLisseth yoo, Refill Request Clinic Annika HORNE (amlodipine) [address] [facility] [address] [place] [address] Social History [...] Time MRSA-Contact IsolationComment: 0 04/26/2021 11:03 AM SHIP'S ENGINEER Infection erroneous documented as of this encounter Care Teams Medical Pathology Teacher Relationship Specialty Start Date End Date No Ref-Primary, Physician PCP - General 07/03/14 12/03/21 documented as of this encounter
--- OUTSIDE RECORDS SUMMARY | 2022-03-26 21:34 | XMS_ITS | Encounter Summary ---
:1960 Author Organization [place] Address [facility] [place] [address] Care Team Providers Name Role Phone No Ref-Primary, Physician Primary Care Provider [phone] Reason for Visit Reason Comments Annual Visit hypertension and dyslipidem ia FU Cardiac testing lab - Closed Specialty Diagnoses / Procedures Referred By Contact Refer red To Contact Diagnoses Mixed hyperlipidemia Feliz Roy MD [address] [place] [address] Referral ID Status Reason Start Date Expiration Date Visits Requ ested Visits Authorized [id number] Closed 08/04/2017 08/04/2018 1 1 Encounter Details Date Type Department Care Team Description 09/15/2017 Office Visit [facility] Feliz Roy Mixed hype rlipidemia (Primary Dx); Heart Clinic Idris Alegre MD Benign essential hypertension; [address] [facility] [address] Elevat ed fasting glucose [facility] [address] [place] [address] [place] [id number] Social History Tobacco Use Types Packs/Day Years [...] Brown in Cardiology Clinic today at the [facility] in [place] for re-evaluation of hypertension and dyslipidemia. In [...] A1c level in 1 month in the [facility] and get back to him about [...] again in 1 year. FELIZ ROY MD, [facility] MT: NARESH Name: ELIJAH BROWN Account: [id number] : 1960 Service Date: 09/15/2017 Document: [id number] Feliz Roy MD - 09/15/2017 9:45 AM CDT HPI and Plan: See dictation Orders Placed This Encounter Procedures ??? Basic metabolic panel ??? Lipid Profile ??? ALT ??? Hemoglobin A1c ??? Hemoglobin A1c ??? Follow-Up with Metal Drilling Machine Operator No orders of the defined [...] Roy MD [address] [place] [address] documented in this encounter Plan of Treatment Not on filedocumented as of this encounter Results (ABNORMAL) Hemoglobin A1c (11/29/2018 10:00 AM CDT) athologist Signature Hemoglobin A1C 6.1 (H) 0 - 5.6 % 11/29/2018 BRONX 11:22 AM CDT [facility] Comment: Normal <5.7% Prediabetes 5.7-6.4% ??Diab etes 6.5% or higher - adopted from ADA consensus guidelines. Specimen Anatomical Collection Method Collection Time Receive d Time (Source) Location / / Volume Laterality Blood specimen 11/29/2018 10:00 9 (specimen) AM CDT 10:01 AM CDT Feliz Roy MD LAB - BLOOD ORDERABLES Performing Organization Address City/State/ZIP Code Phon e Number M [facility] [address] [place] [address] [phone] [facility] [address] [place] [address], [facility] [phone] (ABNORMAL) Hemoglobin A1c (09/27/2017 3:21 PM CDT) athologist Signature Hemoglobin A1C 6.1 (H) 0 - 5.6 % 09/27/2017 BRONX 3:55 PM CDT [facility] Comment: Normal <5.7% Prediabetes 5.7-6.4% ??Diab etes 6.5% or higher - adopted from ADA consensus guidelines. Specimen Anatomical Collection Method Collection Time Receive d Time (Source) Location / / Volume Laterality Blood specimen 09/27/2017 3:21 PM 018 3:26 (specimen) CDT PM CDT Feliz Roy MD LAB - BLOOD ORDERABLES Performing Organization Address City/State/ZIP Code Phon e Number M [facility] [address] [place], [place] [address] [facility] [address] [place], [place] [address] [phone] documented in this encounter Visit Diagnoses Diagnosis Mixed hyperlipidemia - Primary Benign essential hypertension Essential hypertension, benign Elevated fasting glucose Impaired fasting glucose documented in this encounter Additional Health Concerns Infection Onset Date Last Indicated Resolved Time MRSA-Contact IsolationComment: 0 04/26/2021 11:03 AM RETORT CONDENSER ATTENDANT Infection erroneous documented as of this encounter Care Teams Graphics Software Engineer Relationship Specialty Start Date End Date No Ref-Primary, Physician PCP - General 07/03/14 12/03/21 documented as of this encounter
--- OUTSIDE RECORDS SUMMARY | 2022-03-26 21:34 | XMS_ITS | Encounter Summary ---
:1960 Author Organization [place] Address [address] [place] [address] Care Team Providers Name Role Phone No Ref-Primary, Physician Primary Care Provider Encounter Details Date Type Department Care Team Description 09/27/2017 Orders Only [facility] Heart Elev ated fasting glucose Clinic [address] [place] [address] Social History Tobacco Use [...] 6.1 (H) 0 - 5.6 % 09/27/2017 [place] 3:55 PM T [facility] Comment: Normal <5.7% Prediabetes 5.7-6.4% ??Diab etes 6.5% or higher - adopted from ADA consensus guidelines. Specimen Anatomical Collection Method Collection Time Receive d Time (Source) Location / / Volume Laterality Blood specimen 09/27/2017 3:21 PM 018 3:26 (specimen) CDT PM CDT Juan Farias MD LAB - BLOOD ORDERABLES Performing Organization Address City/State/ZIP Code Phon e Number [facility] [address] [place], [place] [address] [facility] [address] [phone] documented in this encounter Visit Diagnoses Diagnosis Elevated fasting glucose Impaired fasting glucose documented in this encounter Additional Health Concerns Infection Onset Date Last Indicated Resolved Time MRSA-Contact IsolationComment: 0 04/26/2021 11:03 AM CELL TESTER Infection erroneous documented as of this encounter Care Teams Machine Guide Base Winder Relationship Specialty Start Date End Date No Ref-Primary, Physician PCP - General 07/03/14 12/03/21 documented as of this encounter
--- OUTSIDE RECORDS SUMMARY | 2022-03-26 21:34 | XMS_ITS | Encounter Summary ---
:1960 Author Organization [place] Address [address] [place] [address] Care Team Providers Name Role Phone No Ref-Primary, Physician Primary Care Provider Encounter Details Date Type Department Care Team Description 08/12/2016 Orders Only [facility] Heart Dereck gn essential [facility] [place] hypertension [address] [facility] [address] [place] [address] Social History Tobacco Use [...] Time Signature Sodium 137 133 - 144 [place] mmol/L [facility] Potassium 4.0 3.4 - 5.3 [place] mmol/L [facility] Chloride 104 94 - 109 [place] mmol/L [facility] Carbon Dioxide 26 20 - 32 [place] mmol/L [facility] Anion Gap 7 3 - 14 [place] mmol/L [facility] Glucose 88 70 - 99 [place] mg/dL [facility] Urea Nitrogen 19 7 - 30 [place] mg/dL [facility] Creatinine 1.31 (H) 0.66 - [place] 1.25 mg/dL [facility] GFR Estimate 57 (L) >60 [place] mL/min/1.7 [facility] m2 [facility] Comment: Non GFR Calc GFR Estimate If Black 69 >60 mL/min/1.7m2 F [facility] Comment: GFR Calc Calcium 9.0 8.5 - 10.1 mg/dL [facility] Specimen Anatomical Collection Method Collection Time Receive d Time (Source) Location / / Volume Laterality Blood specimen 08/12/2016 3:03 PM 017 3:04 (specimen) CDT PM CDT Juan Farias MD LAB - BLOOD ORDERABLES Performing Organization Address City/State/ZIP Code Phon e Number M [place] [address] [place] [address] [facility] [address] [phone] documented in this encounter Visit Diagnoses Diagnosis Benign essential hypertension Essential hypertension, benign documented in this encounter Additional Health Concerns Infection Onset Date Last Indicated Resolved Time MRSA-Contact IsolationComment: 0 04/26/2021 11:03 AM CASTER HELPER Infection erroneous documented as of this encounter Care Teams Senior Compensation Analyst Relationship Specialty Start Date End Date No Ref-Primary, Physician PCP - General 07/03/14 12/03/21 documented as of this encounter
--- OUTSIDE RECORDS SUMMARY | 2022-03-26 21:34 | XMS_ITS | Encounter Summary ---
:1960 Author Organization [place] Address [address] [place] [address] Care Team Providers Name Role Phone No Ref-Primary, Physician Primary Care Provider [phone] Encounter Details Date Type Department Care Team Description 07/03/2014 Orders Only [facility] Heart [facility] Mixed hyperlipidemia [facility] [address] [facility] [address] [place] [address] Social History Tobacco Use Types Packs/Day Years [...] 5 - 30 U/L [facility] Specimen Anatomical Collection Method Collection Time Receive d Time (Source) Location / / Volume Laterality Blood specimen 07/03/2014 8:59 AM 015 9:00 (specimen) CDT AM CDT Juan Farias MD LAB - BLOOD ORDERABLES Performing Organization Address City/State/ZIP Code Phon e Number [facility] [address] [facility] [place] [address] [address] (ABNORMAL) Lipid Profile (07/03/2014 8:59 AM CDT) P athologist Signature Cholesterol 157 0 - 200 [facility] mg/dL [facility] Comment: LDL Cholesterol is the primary guide to therapy. The NCEP recommends further evaluation of: patients with cholesterol greater than 200 mg/dL if additional risk facto rs are present, cholesterol greater than 240 mg/dL, triglycerides greater than 1 50 mg/dL, or HDL less than 40 mg/dL. Triglycerides 129 0 - 150 mg/dL [facility] Comment: Fasting specimen HDL Cholesterol 39 (L) 40 - 118 mg/dL [facility] LDL Cholesterol Calculated 92 70 - 160 mg/dL [facility] Comment: LDL Cholesterol is the primary guide to therapy: LDL-cholesterol goal in high risk patients is <100 mg/dL and in very high risk patients is <70 mg/dL. VLDL-Cholesterol 26 <40 mg/dL [facility] Cholesterol/HDL Ratio 4.0 <4.4 [facility] Specimen Anatomical Collection Method Collection Time Receive d Time (Source) Location / / Volume Laterality Blood specimen 07/03/2014 8:59 AM 015 9:00 (specimen) CDT AM CDT Juan Farias MD LAB - BLOOD ORDERABLES Performing Organization Address City/State/ZIP Code Phon e Number [facility] [address] [place] [address] [address] documented in this encounter Visit Diagnoses Diagnosis Mixed hyperlipidemia documented in this encounter Additional Health Concerns Infection Onset Date Last Indicated Resolved Time MRSA-Contact IsolationComment: 0 04/26/2021 11:03 AM ENVIRONMENTAL SERVICES PROJECT MANAGER Infection erroneous documented as of this encounter Care Teams Sales Assoc Relationship Specialty Start Date End Date No Ref-Primary, Physician PCP - General 07/03/14 12/03/21 documented as of this encounter
--- OUTSIDE RECORDS SUMMARY | 2022-03-26 21:34 | XMS_ITS | Encounter Summary ---
:1960 Author Organization [place] Address [facility] [place] [address] Care Team Providers Name Role Phone No Ref-Primary, Physician Primary Care Provider Reason for Referral - Closed Specialty Diagnoses / Procedures Referred By Contact Refer red To Contact Diagnoses Mixed hyperlipidemia Feliz Roy MD [address] [place] [address] Referral ID Status Reason Start Date Expiration Date Visits Requ ested Visits Authorized [id number] Closed 07/03/2015 12/30/2015 1 1 Reason for Visit Reason Comments Heart Problem annual f/u with Dr. Roy. H X of HTN, hypercholesterolemia Results labs today Encounter Details Date Type Department Care Team Description 07/03/2014 Office Visit [facility] Feliz Roy Mixed hype rlipidemia (Primary Dx); Heart Clinic Annika Alegre MD Hyperlipidemia LDL goal <100; [address] ANEMIA NOS; [address] Unspecified essential hypertension [place] [address] [place] [address] [phone] Social History Tobacco Use Types Packs/Day Years [...] Lipid Profile ??? ALT ??? Follow-Up with Pruner Orders Placed This Encounter Medications ??? aspirin [...] FACC MT: GF Name: ELIJAH BROWN Account: [id number] : 1960 Service Date: 07/03/2014 Document: [id number] documented in this encounter Plan of Treatment Scheduled Referrals Name Type Priority Associated Diagnoses Order S chedule Follow-Up with Referral Routine Mixed Hyperlipidemia Expec jacques: 08/05/2015 Pruner (Approximate), Expires: 2015 documented as of this encounter Results ALT (08/05/2015 3:11 PM CDT) athologist Signature ALT 6 5 - 30 U/L [facility] Specimen Anatomical Collection Method Collection Time Receive d Time (Source) Location / / Volume Laterality Blood specimen 08/05/2015 3:11 PM 016 3:12 (specimen) CDT PM CDT Feliz Roy MD LAB - BLOOD ORDERABLES Performing Organization Address City/[facility]/ZIP Code Phon e Number [facility] [address] [place] [address] [address] (ABNORMAL) Lipid Profile (08/05/2015 3:11 PM CDT) athologist Signature Cholesterol 163 <200 mg/dL [facility] Triglycerides 145 <150 mg/dL [facility] Comment: Fasting specimen HDL Cholesterol 39 (L) >39 mg/dL [facility] LDL Cholesterol Calculated 95 <100 mg/dL [facility] Comment: Desirable: <100 mg/dl Non HDL Cholesterol 124 <130 mg/dL [facility] Specimen Anatomical Collection Method Collection Time Receive d Time (Source) Location / / Volume Laterality Blood specimen 08/05/2015 3:11 PM 016 3:12 (specimen) CDT PM CDT Feliz Roy MD LAB - BLOOD ORDERABLES Performing Organization Address City/State/ZIP Code Phon e Number [facility] [address] [place] [address] [address] documented in this encounter Visit Diagnoses Diagnosis Mixed hyperlipidemia - Primary Hyperlipidemia LDL goal <100 Other and unspecified hyperlipidemia [place]EM[place] NOS Anemia, unspecified Unspecified essential hypertension documented in this encounter Additional Health Concerns Infection Onset Date Last Indicated Resolved Time MRSA-Contact IsolationComment: 0 04/26/2021 11:03 AM 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
--- OUTSIDE RECORDS SUMMARY | 2022-03-26 21:35 | XMS_ITS | Encounter Summary ---
:1960 Author Organization [place] Address [address] [place] [address] Care Team Providers Name Role Phone Unavailable Primary Care Provider Unavailable Encounter Details Date Type Department Care Team Description 03/21/2009 Historic Results [facility] Paulien [facility][note 2]-Gianni Church MD Hospitalists [address] [place], [place] [address] (Wo rk) Social History Tobacco Use Types [...] 03/21/2009 11:52 AM Resu lts for this CARPENTER SHIP procedure are i n the results section. PHOSPHORUS Routine 03/21/2009 6:22 AM Results f or this [employer]ENTER SHIP procedure are i n the results section. MAGNESIUM Routine 03/21/2009 6:22 AM Results f or this [employer]PENTER SHIP procedure are i n the results section. BASIC METABOLIC Routine 03/21/2009 6:22 AM Result s for this PANEL [employer]PENTER SHIP procedure are i n the results section. documented in this encounter Results (ABNORMAL) Glucose by meter (03/21/2009 11:52 AM CARPENTER SHIP) P athologist Signature Glucose 128 (H) 60 - 99 [place] mg/dL Specimen Anatomical Collection Method Collection Time Receive d Time (Source) Location / / Volume Laterality 03/21/2009 11:52 03/21/2009 AM CARPENTER SHIP 12:10 PM CARPENTER SHIP Kaiden REHMAN - BEAKER POCT Performing Organization Address City/State/[facility] Phon e Number [place] (ABNORMAL) Basic metabolic panel (03/21/2009 6:22 AM CARPENTER SHIP) P athologist Signature Sodium 139 133 - [...] / Volume Laterality 03/21/2009 6:22 AM 9 [employer]PENTER SHIP Liam Traylor MD LAB - BLOOD ORDERABLES Performing Organization Address [facility] Phon e Number [place] Phosphorus (03/21/2009 6:22 AM CARPENTER SHIP) athologist Signature Phosphorus 2.7 2.5 - 4.5 [place] mg/dL Specimen Anatomical Collection Method Collection Time Receive d Time (Source) Location / / Volume Laterality 03/21/2009 6:22 AM 9 6:30 CARPENTER SHIP AM [employer]ENTER SHIP Liam Traylor MD LAB - BLOOD ORDERABLES Performing Organization Address City/[facility] Phon e Number [place] (ABNORMAL) Magnesium (03/21/2009 6:22 AM CARPENTER SHIP) athologist Signature Magnesium 1.5 (L) 1.6 - 2.3 [place] mg/dL Comment: Reviewed, acceptable Specimen Anatomical Collection Method Collection Time Receive d Time (Source) Location / / Volume Laterality 03/21/2009 6:22 AM 9 6:42 CARPENTER SHIP AM [employer] SHIP Liam Traylor MD LAB - BLOOD ORDERABLES Performing Organization Address City/[facility]/ZIP Code Phon e Number [place] documented in this encounter Visit Diagnoses Not on filedocumented in this encounter Additional Health Concerns Infection Onset Date Last Indicated Resolved Time MRSA-Contact IsolationComment: 0 04/26/2021 11:03 AM CARPENTER SHIP Infection erroneous documented as of this encounter
--- OUTSIDE RECORDS SUMMARY | 2022-03-26 21:35 | XMS_ITS | Encounter Summary ---
:1960 Author Organization [place] Address [address] [place] [address] Care Team Providers Name Role Phone Unavailable [...] MRSA-Contact IsolationComment: 0 04/26/2021 11:03 AM COOK VEGETABLE Infection erroneous documented as of this encounter
--- OUTSIDE RECORDS SUMMARY | 2022-03-26 21:35 | XMS_ITS | Encounter Summary ---
:1960 Author Organization [place] Address [address] [place] [address] Care Team Providers Name Role Phone Unavailable [...] as of this encounter Progress Notes Interface, Assembler Chassis - 07/10/2010 8:49 AM CDT General Information - How to be Addressed navarro - Patient Belongings clothing - special effects person #1: Shalonda - Relationship to girlfriend patient #1: - Contact Location: Home Local - Phone 1: [phone] - special effects person #2: Chantal Woods - Relationship to sister patient #2: - Contact Location: Home Local - Phone 1: [phone] - Cell - special effects person #3: Perlita & elida - Relationship to mom & dad patient #3: - Phone 1: [phone] - Patient's spoken language; Moldovan or Bilingual communication style Advance Directive - [...] abuse, self neglect, lack of adequate food, mcfp, medical care, or financial exploitation)? Values/Beliefs/Spiritual Care [...] none Considerations - Developmental none Considerations - Islam none Considerations Mutuality/Individual Preferences - What information [...] Time MRSA-Contact IsolationComment: 0 04/26/2021 11:03 AM CHEFS Infection erroneous documented as of this encounter
--- OUTSIDE RECORDS SUMMARY | 2022-03-26 21:35 | XMS_ITS | Encounter Summary ---
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
--- OUTSIDE RECORDS SUMMARY | 2022-03-26 21:35 | XMS_ITS | Encounter Summary ---
:1960 Author Organization [place] Address [address] [place] [address] Care Team Providers Name Role Phone Unavailable Primary Care Provider Unavailable Encounter Details Date Type Department Care Team Description 06/30/2009 Emergency room [facility] Rina Shin MD Hospital Results EMERGENCY [facility] [address] [place], [place] [address] (Wo rk) Social History Tobacco Use Types Packs/Day Years Used Date Smoking Tobacco: Never Alcohol Use Standard Drinks/Week Comments Yes 0 (1 standard drink = 0.6 oz pure alcoho l) socially approx 5 drinks/wk Sex Assigned at Date Recorded Not on file documented as of this encounter Progress Notes Rina Shin - 07/04/2009 2:40 AM PHOTOGRAPHER PORTRAIT FINAL CHIEF COMPLAINT: Fall. HISTORY OF PRESENT [...] MD MT: [id number] Name: ELIJAH BROWN Account: [id number] : 1960 Visit Date: 06/30/2009 Document: [id number] OGRAPHER PORTRAIT documented in this encounter Plan of Treatment Not on filedocumented as of this encounter Visit Diagnoses Not on filedocumented in this encounter Additional Health Concerns Infection Onset Date Last Indicated Resolved Time MRSA-Contact IsolationComment: 0 04/26/2021 11:03 AM PHOTOGRAPHER PORTRAIT Infection erroneous documented as of this encounter
--- OUTSIDE RECORDS SUMMARY | 2022-03-26 21:35 | XMS_ITS | Encounter Summary ---
:1960 Author Organization [facility] Address [address] [place] [address] Care Team Providers Name Role Phone Unavailable Primary Care Provider Unavailable Encounter Details Date Type Department Care Team Description 03/20/2009 Historic Results [facility]-Gianni Church MD Hospitalists [address] [place], [place] [address] (Wo rk) Social History Tobacco Use Types [...] 03/20/2009 8:39 PM Resul ts for this PUBLIC TRANSIT SPECIALIST procedure are i n the results section. GLUCOSE BY METER Routine 03/20/2009 4:06 PM Resul ts for this PUBLIC TRANSIT SPECIALIST procedure are i n the results section. MAGNESIUM Timed 03/20/2009 3:33 PM Results f or this PUBLIC TRANSIT SPECIALIST procedure are i n the results section. GLUCOSE BY METER Routine 03/20/2009 11:45 AM Resu lts for this PUBLIC TRANSIT SPECIALIST procedure are i n the results section. GLUCOSE BY METER Routine 03/20/2009 7:25 AM Resul ts for this PUBLIC TRANSIT SPECIALIST procedure are i n the results section. MAGNESIUM Routine 03/20/2009 5:04 AM Results f or this PUBLIC TRANSIT SPECIALIST procedure are i n the results section. BASIC METABOLIC Routine 03/20/2009 5:04 AM Result s for this PANEL PUBLIC TRANSIT SPECIALIST procedure are i n the results section. GLUCOSE BY METER Routine 03/20/2009 4:25 AM Resul ts for this PUBLIC TRANSIT SPECIALIST procedure are i n the results section. GLUCOSE BY METER Routine 03/20/2009 12:04 AM Resu lts for this PUBLIC TRANSIT SPECIALIST procedure are i n the results section. documented in this encounter Results Glucose by meter (03/20/2009 8:39 PM PUBLIC TRANSIT SPECIALIST) athologist Signature Glucose 94 60 - 99 MISYS mg/dL Specimen Anatomical Collection Method Collection Time Receive d Time (Source) Location / / Volume Laterality 03/20/2009 8:39 PM 9 7:30 PUBLIC TRANSIT SPECIALIST AM PUBLIC TRANSIT SPECIALIST Kaiden Carpenter MD LAB - BEAKER POCT Performing Organization Address City/[facility] Phon e Number MISYS (ABNORMAL) Glucose by meter (03/20/2009 4:06 PM PUBLIC TRANSIT SPECIALIST) athologist Signature Glucose 142 (H) 60 - 99 MISYS mg/dL Specimen Anatomical Collection Method Collection Time Receive d Time (Source) Location / / Volume Laterality 03/20/2009 4:06 PM 7:30 PUBLIC TRANSIT SPECIALIST AM PUBLIC TRANSIT SPECIALIST Kaiden REHMAN - JESICA POCT Performing Organization Address [facility] Phon e Number MISYS (ABNORMAL) Magnesium (03/20/2009 3:33 PM PUBLIC TRANSIT SPECIALIST) athologist Signature Magnesium 2.7 (H) 1.6 - 2.3 MISYS mg/dL Comment: Results confirmed by repeat patricia t Specimen Anatomical Collection Method Collection Time Receive d Time (Source) Location / / Volume Laterality 03/20/2009 3:33 PM 9 4:00 PUBLIC TRANSIT SPECIALIST PM PUBLIC TRANSIT SPECIALIST Kaiden Carpenter MD LAB - BLOOD ORDERABLES Performing Organization Address City/[facility]/ZIP Code Phon e Number MISYS (ABNORMAL) Glucose by meter (03/20/2009 11:45 AM PUBLIC TRANSIT SPECIALIST) athologist Signature Glucose 154 (H) 60 - 99 MISYS mg/dL Specimen Anatomical Collection Method Collection Time Receive d Time (Source) Location / / Volume Laterality 03/20/2009 11:45 03/21/2009 7:30 AM PUBLIC TRANSIT SPECIALIST AM PUBLIC TRANSIT SPECIALIST Kaiden Carpenter MD LAB - BEJAZ POCT Performing Organization Address City/State/ZIP Code Phon e Number MISYS (ABNORMAL) Glucose by meter (03/20/2009 7:25 AM PUBLIC TRANSIT SPECIALIST) P athologist Signature Glucose 145 (H) 60 - 99 MISYS mg/dL Specimen Anatomical Collection Method Collection Time Receive d Time (Source) Location / / Volume Laterality 03/20/2009 7:25 AM 9 7:30 PUBLIC TRANSIT SPECIALIST AM PUBLIC TRANSIT SPECIALIST Kaiden Carpenter MD LAB - BEAKER POCT Performing Organization Address [facility] Code Phon e Number MISYS (ABNORMAL) Magnesium (03/20/2009 5:04 AM PUBLIC TRANSIT SPECIALIST) athologist Signature Magnesium 1.2 (L) 1.6 - 2.3 MISYS mg/dL Specimen (Source) Anatomical Collection Method Collection Time Re ceived Time Location / / Volume Laterality 03/20/2009 5:04 AM 9 PUBLIC TRANSIT SPECIALIST Brian Turner MD LAB - BLOOD ORDERABLES Performing Organization Address [facility] Phon e Number MISYS (ABNORMAL) Basic metabolic panel (03/20/2009 5:04 AM PUBLIC TRANSIT SPECIALIST) athologist Signature Sodium 142 133 - 144 [...] / Volume Laterality 03/20/2009 5:04 AM 9 PUBLIC TRANSIT SPECIALIST Liam Traylor MD LAB - BLOOD ORDERABLES Performing Organization Address City/[facility]/ZIP Code Phon e Number MISYS (ABNORMAL) Glucose by meter (03/20/2009 4:25 AM PUBLIC TRANSIT SPECIALIST) P athologist Signature Glucose 149 (H) 60 - 99 MISYS mg/dL Specimen Anatomical Collection Method Collection Time Receive d Time (Source) Location / / Volume Laterality 03/20/2009 4:25 AM 9 4:35 PUBLIC TRANSIT SPECIALIST AM PUBLIC TRANSIT SPECIALIST Kaiden REHMAN - JESICA POCT Performing Organization Address City/State/ZIP Code Phon e Number MISYS (ABNORMAL) Glucose by meter (03/20/2009 12:04 AM PUBLIC TRANSIT SPECIALIST) P athologist Signature Glucose 155 (H) 60 - 99 MISYS mg/dL Specimen Anatomical Collection Method Collection Time Receive d Time (Source) Location / / Volume Laterality 03/20/2009 12:04 03/20/2009 AM PUBLIC TRANSIT SPECIALIST 12:10 AM PUBLIC TRANSIT SPECIALIST Kaiden REHMAN - JESICA POCT Performing Organization Address City/State/ZIP Code Phon e Number MISYS documented in this encounter Visit Diagnoses Not on filedocumented in this encounter Additional Health Concerns Infection Onset Date Last Indicated Resolved Time MRSA-Contact IsolationComment: 0 04/26/2021 11:03 AM PUBLIC TRANSIT SPECIALIST Infection erroneous documented as of this encounter
--- OUTSIDE RECORDS SUMMARY | 2022-03-26 21:35 | XMS_ITS | Encounter Summary ---
:1960 Author Organization [facility] Address [address] [place] [address] Care Team Providers Name Role Phone Unavailable [...] 07/01/2009 9:22 AM Results f or this CHIP UNLOADER procedure are i n the results section . documented in this encounter Results EKG 12 LEAD (07/01/2009 9:22 AM CHIP UNLOADER) Component Value Ref Range Test Analysis Performed Pathologis t Method Time At Signature Ventricular Rate 130 BPM RADIOLOGY RESULTS Atrial Rate 130 BPM RADIOLOGY RESULTS OH Interval 124 ms RADIOLOGY RESULTS QRS Duration 86 ms RADIOLOGY RESULTS QT 296 ms RADIOLOGY RESULTS QTc 435 ms RADIOLOGY RESULTS P [place] 20 degrees RADIOLOGY RESULTS R AXIS -2 degrees RADIOLOGY RESULTS T [place] 25 degrees RADIOLOGY RESULTS Interpretation Sinus tachycardia [...] Volume Laterality 07/01/2009 9:22 AM 0 7:31 CHIP UNLOADER AM CHIP UNLOADER Transcripton Interface ECG ORDERABLES Performing Organization Address City/State/ZIP Code Phon e Number RADIOLOGY RESULTS documented in this encounter Visit Diagnoses Not on filedocumented in this encounter Additional Health Concerns Infection Onset Date Last Indicated Resolved Time MRSA-Contact IsolationComment: 0 04/26/2021 11:03 AM CHIP UNLOADER Infection erroneous documented as of this encounter
--- OUTSIDE RECORDS SUMMARY | 2022-03-26 21:35 | XMS_ITS | Encounter Summary ---
:1960 Author Organization [facility] Address [address] [place] [address] Care Team Providers Name Role Phone Unavailable Primary Care Provider Unavailable Encounter Details Date Type Department Care Team Description 07/01/2009 Historic Results [facility]-Gianni Helton MD Hospitalists [address] [facility] [place], [place] [address] (Wo rk) Social History [...] 07/01/2009 7:01 PM Resul ts for this CHORUS DANCER procedure are i n the results section. INR AND PTT PANEL Timed 07/01/2009 11:10 Result s for this AM CHORUS DANCER procedure are i n the results section. ROUTINE UA WITH Routine 07/01/2009 10:40 Results for this MICROSCOPIC AM CHORUS DANCER procedure are i n the results section. URINE CULTURE Routine 07/01/2009 10:40 Results fo r this AM CHORUS DANCER procedure are i n the results section. CBC WITH PLATELETS Timed 07/01/2009 10:40 Resul ts for this AM CHORUS DANCER procedure are i n the results section. BLOOD CULTURE STAT 07/01/2009 8:20 AM Results for this CHORUS DANCER procedure are i n the results section. BLOOD CULTURE STAT 07/01/2009 8:05 AM Results for this CHORUS DANCER procedure are i n the results section. HEPATIC FUNCTION Routine 07/01/2009 6:20 AM Resul ts for this PANEL CHORUS DANCER procedure are i n the results section. BASIC METABOLIC PANEL Routine 07/01/2009 6:20 AM Results for this CHORUS DANCER procedure are i n the results section. documented in this encounter Results (ABNORMAL) Glucose by meter (07/01/2009 7:01 PM CHORUS DANCER) athologist Signature Glucose 217 (H) 60 - 99 MISYS mg/dL Specimen Anatomical Collection Method Collection Time Receive d Time (Source) Location / / Volume Laterality 07/01/2009 7:01 PM 0 7:05 CHORUS DANCER PM CHORUS DANCER Josue Crain DO LAB - BEAKER POCT Performing Organization Address City/State/ZIP Code Phon e Number MISYS INR AND PTT PANEL (07/01/2009 11:10 AM CHORUS DANCER) athologist Signature INR 0.95 0.86 - 1.14 MISYS PTT 26 22 - 37 sec MISYS Specimen Anatomical Collection Method Collection Time Receive d Time (Source) Location / / Volume Laterality 07/01/2009 11:10 07/01/2009 AM CHORUS DANCER 10:50 AM CHORUS DANCER Harvey Dang MD LAB - BLOOD ORDERABLES Performing Organization Address City/State/ZIP Code Phon e Number MISYS (ABNORMAL) Routine UA with microscopic (07/01/2009 10:40 AM CHORUS DANCER) Component Value Ref Test Analysis Performed At [facility] gist Range Method Time Signature Source Catheterized MISYS Urine Color Urine Yellow MISYS Appearance Urine Clear MISYS Glucose Urine Negative NEG MISYS mg/dL Bilirubin Urine Negative NEG MISYS Ketones Urine 10 (A) NEG MISYS mg/dL Specific [place] 1.010 1.003 - MISYS Urine 1.035 Blood [...] Volume Laterality 07/01/2009 10:40 07/01/2009 8:01 AM CHORUS DANCER AM CHORUS DANCER Harvey Dang MD LAB - URINE ORDERABLES Performing Organization Address City/[facility]/ZIP Code Phon e Number MISYS (ABNORMAL) CBC with platelets (07/01/2009 10:40 AM CHORUS DANCER) Analysis Performed At Patho logist Time Signature [...] / Volume Laterality 07/01/2009 10:40 07/01/2009 AM CHORUS DANCER 10:30 AM CHORUS DANCER Harvey Dang MD LAB - BLOOD ORDERABLES Performing Organization Address City/[facility] Phon e Number MISYS Urine culture (07/01/2009 10:40 AM CHORUS DANCER) Component Value Ref Test Analysis Performed At [facility] [employer] Range Method Time Signature Specimen Catheterized MISYS Description Urine Culture Micro No growth MISYS Micro Report FINAL 07/02/2009 MISYS Status Specimen Anatomical Collection Method Collection Time Receive d Time (Source) Location / / Volume Laterality 07/01/2009 10:40 07/01/2009 8:01 AM CHORUS DANCER AM CHORUS DANCER Harvey Dang MD LAB - MICRO GENERAL ORDERABL ES Performing Organization Address City/[facility] Phon e Number MISYS Blood culture (07/01/2009 8:20 AM CHORUS DANCER) [facility] [employer] Method Time Signature Specimen Blood Left MISYS Description Hand Culture Micro No growth MISYS after 6 days Micro Report FINAL MISYS Status [id number] Specimen Anatomical Collection Method Collection Time Receive d Time (Source) Location / / Volume Laterality 07/01/2009 8:20 AM 0 8:02 CHORUS DANCER AM CHORUS DANCER Harvey Dang MD LAB - MICRO GENERAL ORDERABL ES Performing Organization Address City/[facility] Phon e Number MISYS Blood culture (07/01/2009 8:05 AM CHORUS DANCER) Patholo gist Method Time Signature Specimen Blood Right MISYS Description Arm Culture Micro No growth MISYS after 6 days Micro Report FINAL MISYS Status [id number] Specimen Anatomical Collection Method Collection Time Receive d Time (Source) Location / / Volume Laterality 07/01/2009 8:05 AM 0 8:02 CHORUS DANCER AM CHORUS DANCER Harvey Dang MD LAB - MICRO GENERAL ORDERABL ES Performing Organization Address City/State/ZIP Code Phon e Number MISYS (ABNORMAL) Basic metabolic panel (07/01/2009 6:20 AM CHORUS DANCER) P athologist Signature Sodium 135 133 - [...] Volume Laterality 07/01/2009 6:20 AM 0 2:28 CHORUS DANCER PM CHORUS DANCER Harvey Dang MD LAB - BLOOD ORDERABLES Performing Organization Address City/State/ZIP Code Phon e Number MISYS (ABNORMAL) Hepatic panel (07/01/2009 6:20 AM CHORUS DANCER) Analysis Performed At Patho logist Time Signature [...] / Volume Laterality 07/01/2009 6:20 AM 0 CHORUS DANCER 10:21 AM CHORUS DANCER Harvey Dang MD LAB - BLOOD ORDERABLES Performing Organization Address City/State/ZIP Code Phon e Number MISYS documented in this encounter Visit Diagnoses Not on filedocumented in this encounter Additional Health Concerns Infection Onset Date Last Indicated Resolved Time MRSA-Contact IsolationComment: 0 04/26/2021 11:03 AM CHORUS DANCER Infection erroneous documented as of this encounter
--- OUTSIDE RECORDS SUMMARY | 2022-03-26 21:35 | XMS_ITS | Encounter Summary ---
:1960 Author Organization [facility] Address [address] [place] [address] Care Team Providers Name Role Phone Unavailable Primary Care Provider Unavailable Encounter Details Date Type Department Care Team Description 07/02/2009 Historic Notes INTERFACED REPORT Cali Dang MD [address] [place], [place] [address] (Wo rk) Social History [...] Time MRSA-Contact IsolationComment: 0 04/26/2021 11:03 AM RAYON TESTER Infection erroneous documented as of this encounter
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
--- OUTSIDE RECORDS SUMMARY | 2022-03-26 21:35 | XMS_ITS | Encounter Summary ---
:1960 Author Organization [facility] Address [address] [place] [address] Care Team Providers Name Role Phone Unavailable Primary Care Provider Unavailable Encounter Details Date Type Department Care Team Description 03/19/2009 Historic Notes INTERFACED REPORT Deep Alston MD [address] [place], [place] [address] (Wo rk) Social History [...] Time MRSA-Contact IsolationComment: 0 04/26/2021 11:03 AM MOSHGIACH Infection erroneous documented as of this encounter
--- OUTSIDE RECORDS SUMMARY | 2022-03-26 21:35 | XMS_ITS | Encounter Summary ---
:1960 Author Organization [facility] Address [address] [place] [address] Care Team Providers Name Role Phone Unavailable [...] of this encounter Progress Notes Interface, Technical Training Manager - 07/10/2010 8:27 AM CDT Patient Status - Diagnosis/Procedure Alcohol Withdrawl - Physical status Stable (s/s of potential complications absent or manageable) - Psychosocial status Stable Discharge Planning - Discharge From: [facility] - Patient Care Unit: Med Surg [...] Other Education, Rule 25 for CD evaluation: [facility], and [facility] in [facility] Instructions: [phone] 1. You must apply in person at [facility] in [facility] / 3rd floor 2. First come first served - be there by 9:00am 3. THEY ARE CLOSED ON WED.'S Follow Up Care - Physician/clinician [facility] CD Evaluation name: - When to see [facility] physician/clinician: Deib Mcdonald (RN)[Signed 12:54] Authored: Patient Status, Discharge Planning, Discharge Information, Medications and Prescriptions, Support Services, Special Care Needs and Instructions, Follow Up Care Ester Berumen (EDITOR SOUND)[Signed 12:20] Authored: Other Discharge Education, Materials, and Instructions Interface, Technical Training Manager - 07/10/2010 8:27 AM CDT SARAH ESCOBAR [...] and gave pt the phone number of [facility] in [facility] ([phone]) and directions to the facility. He was informed that the [facility] does not take applications on Mon'. [...] other needs identified [Signature] Author: Ester Berumen (EDITOR SOUND) [Signed 12:32] Interface, Technical Training Manager - 07/10/2010 8:27 AM CDT Discharge Summary - Reason for Discharge Discharge from facility, home with CD resources - Progress toward Goals not met achieving short term goals/termite treater goals - Barriers to achieving Early discharge [...] Time MRSA-Contact IsolationComment: 0 04/26/2021 11:03 AM LEGAL BILLING SPECIALIST Infection erroneous documented as of this encounter
--- OUTSIDE RECORDS SUMMARY | 2022-03-26 21:35 | XMS_ITS | Encounter Summary ---
:1960 Author Organization [facility] Address [address] [place] [address] Care Team Providers Name Role Phone Unavailable Primary Care Provider Unavailable Encounter Details Date Type Department Care Team Description 07/02/2009 Historic Results [facility], Hospitalists DO [address] [place], [place] [id number] [phone] Social History Tobacco Use Types Packs/Day Years [...] AM Results f or this METHICILLIN RESISTANT QUALITATIVE RESEARCHER proced ure are in PCR (RW) the results section. REFERRAL SENSITIVITY Routine 07/02/2009 8:45 AM R esults for this QUALITATIVE RESEARCHER procedure are i n the results section. COMPREHENSIVE Routine 07/02/2009 7:05 AM Results for this METABOLIC PANEL QUALITATIVE RESEARCHER procedure ar e in the results section. CBC WITH PLATELETS Routine 07/02/2009 7:05 AM Res ults for this QUALITATIVE RESEARCHER procedure are i n the results section. documented in this encounter Results Staph aureus methicillin resistant PCR (07/02/2009 8:45 AM QUALITATIVE RESEARCHER) [facility] Method Time Signature Specimen Nares MISYS Description Methicillin Positive: MISYS Resist/Sens S. 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 Comment: FDA approved assay performed using [employer] GeneXpert(R) real-time PCR with amplification of a sequence in a casset te inserted in the S.aureus chromosome. Specimen Anatomical Collection Method Collection Time Receive d Time (Source) Location / / Volume Laterality 07/02/2009 8:45 AM 0 3:04 QUALITATIVE RESEARCHER PM QUALITATIVE RESEARCHER Harvey Dang MD LAB - MICRO GENERAL ORDERABL ES Performing Organization Address City/State/ZIP Code Phon e Number MISYS Referral sensitivity (07/02/2009 8:45 AM QUALITATIVE RESEARCHER) Component Value Ref Test Analysis Performed Pathologis t Range Method Time At Signature Specimen Nares MISYS Description Culture Micro No MRSA isolated: MISYS susceptibilities not available. PCR assay is more sensitive Comment: than culture. Micro Report Status FINAL 07/05/2009 MIS YS Specimen Anatomical Collection Method Collection Time Receive d Time (Source) Location / / Volume Laterality 07/02/2009 8:45 AM 0 4:22 QUALITATIVE RESEARCHER PM QUALITATIVE RESEARCHER Josue Crain DO LAB - MICRO GENERAL ORDERABL ES Performing Organization Address City/State/ZIP Code Phon e Number MISYS (ABNORMAL) Comprehensive metabolic panel (07/02/2009 7:05 AM QUALITATIVE RESEARCHER) P athologist Signature Sodium 137 133 - [...] / Volume Laterality 07/02/2009 7:05 AM 0 QUALITATIVE RESEARCHER 10:54 AM QUALITATIVE RESEARCHER Harvey Dang MD LAB - BLOOD ORDERABLES Performing Organization Address City/State/ZIP Code Phon e Number MISYS (ABNORMAL) CBC with platelets (07/02/2009 7:05 AM QUALITATIVE RESEARCHER) Analysis Performed At Patho logist Time Signature [...] Volume Laterality 07/02/2009 7:05 AM 0 7:52 QUALITATIVE RESEARCHER AM QUALITATIVE RESEARCHER Harvey Dang MD LAB - BLOOD ORDERABLES Performing Organization Address City/State/ZIP Code Phon e Number MISYS documented in this encounter Visit Diagnoses Not on filedocumented in this encounter Additional Health Concerns Infection Onset Date Last Indicated Resolved Time MRSA-Contact IsolationComment: 0 04/26/2021 11:03 AM QUALITATIVE RESEARCHER Infection erroneous documented as of this encounter
--- OUTSIDE RECORDS SUMMARY | 2022-03-26 21:35 | XMS_ITS | Encounter Summary ---
:1960 Author Organization [facility] Address [facility] [place] [address] Care Team Providers Name Role Phone Unavailable Primary Care Provider Unavailable Encounter Details Date Type Department Care Team Description 03/20/2009 Historic Notes INTERFACED REPORT Eloina Alford, PT MS BELLA C [facility] [facility] [address] [place], [place] [address] (Wo rk) Social History Tobacco [...] Bed Mobility: Rolling/Turning - Level of independent [place]: Bed Mobility: Scooting/Bridging - Level of independent [place]: Bed Mobility: Sit to Supine - Level of independent [place]: Bed Mobility: Supine to Sit - Level of independent [place]: Transfer: Sit to Stand - Level of stand-by assist [place]: - Weight-Bearing full weight-bearing Restrictions: - Assistive Device: pt held onto IV pole Transfer: Stand to Sit - Level of stand-by assist [place]: - Physical verbal cues; for safe hand placement Assist/Nonphysical Assist: - Weight-Bearing full weight-bearing Restrictions: - Assistive Device: no AD - pt used IV pole Sit/Stand Transfer Safety Analysis - Impairments impaired balance Contributing to Impaired Transfers: Gait Skills - Level of minimum assist (75% patients effort) [place]: - Assistive Device: no AD - held [...] LE Dynamic: activities seated at EOB - [id number] Balance: stand-by assist - Standing Balance: minimum [...] Time MRSA-Contact IsolationComment: 0 04/26/2021 11:03 AM NUCLEAR MEDICAL TECHNOLOGIST Infection erroneous documented as of this encounter
--- OUTSIDE RECORDS SUMMARY | 2022-03-26 21:35 | XMS_ITS | Encounter Summary ---
:1960 Author Organization [facility] Address [address] [place] [address] Care Team Providers Name Role Phone Unavailable [...] as of this encounter Progress Notes Interface, Cycle Consultant - 07/10/2010 8:33 AM CDT General Information [...] Mobility: Rolling/Turning - Level of stand-by assist Holmes: Bed Mobility: Scooting/Bridging - Level of stand-by assist Holmes: Bed Mobility: Sit to Supine - Level of stand-by assist Holmes: Bed Mobility: Supine to Sit - Level of stand-by assist Holmes: Transfer: Bed to Chair/Chair to Bed - Level of moderate assist (50% patients effort) Holmes: - Physical 2 persons Assist/Nonphysical Assist: - Weight-Bearing full weight-bearing Restrictions: - Assistive Device: rolling walker Bed/Chair Transfer Safety Analysis - Transfer Safety losing balance backward; decreased balance Concerns Noted: during turns - Impairments impaired balance; decreased strength Contributing to Impaired Transfers: Transfer: Sit to Stand - Level of moderate assist (50% patients effort) Holmes: - Physical 2 persons Assist/Nonphysical Assist: - Weight-Bearing full weight-bearing Restrictions: - Assistive Device: rolling walker Transfer: Stand to Sit - Level of moderate assist (50% patients effort) Holmes: - Physical 2 persons Assist/Nonphysical Assist: - Weight-Bearing full weight-bearing Restrictions: - Assistive Device: rolling walker Sit/Stand Transfer Safety Analysis - Transfer Safety decreased balance during turns; losing balance Concerns Noted: backward - Impairments impaired balance; decreased strength Contributing to Impaired Transfers: Gait Skills - Level of moderate assist (50% patients effort) Holmes: - Physical 1 person + 1 person [...] minimum assist (75% patients effort) Dynamic: - [id number] Balance: moderate assist (50% patients effort) - [...] closely Potential: - Demonstrates need for OT; LIAISON ENGINEER referral to another service: - Predicted Duration [...] Time MRSA-Contact IsolationComment: 0 04/26/2021 11:03 AM INFORMATION TECHNOLOGY ADVISOR Infection erroneous documented as of this encounter
--- OUTSIDE RECORDS SUMMARY | 2022-03-26 21:35 | XMS_ITS | Encounter Summary ---
:1960 Author Organization [facility] Address [address] [place] [address] Care Team Providers Name Role Phone Unavailable Primary Care Provider Unavailable Encounter Details Date Type Department Care Team Description 07/04/2009 Historic Results [facility] Sharifa Barr MD Hospitalists [address] [facility] [address] [place] [address] [place], [place] [phone] (Wo rk) [id number] [phone] Social History Tobacco Use Types Packs/Day Years [...] 4:15 PM Result s for this MICROSCOPIC E MARKETING SPECIALIST procedure are i n the results section. documented in this encounter Results (ABNORMAL) Routine UA with microscopic (07/04/2009 4:15 PM E MARKETING SPECIALIST) Component Value Ref Test Analysis Performed At [facility] Range Method Time Signature Source Unspecified MISYS Urine Color Urine Yellow MISYS Appearance Urine Clear MISYS Glucose Urine Negative NEG MISYS mg/dL Bilirubin Urine Negative NEG MISYS Ketones Urine Negative NEG MISYS mg/dL Specific Dearing 1.005 1.003 - MISYS Urine 1.035 Blood [...] Volume Laterality 07/04/2009 4:15 PM 0 9:33 E MARKETING SPECIALIST AM E MARKETING SPECIALIST Sharifa Barr MD LAB - URINE ORDERABLES Performing Organization Address City/State/ZIP Code Phon e Number MISYS documented in this encounter Visit Diagnoses Not on filedocumented in this encounter Additional Health Concerns Infection Onset Date Last Indicated Resolved Time MRSA-Contact IsolationComment: 0 04/26/2021 11:03 AM E MARKETING SPECIALIST Infection erroneous documented as of this encounter
--- OUTSIDE RECORDS SUMMARY | 2022-03-26 21:35 | XMS_ITS | Encounter Summary ---
:1960 Author Organization [facility] Address [address] [place] [address] Care Team Providers Name Role Phone Unavailable [...] as of this encounter Progress Notes Interface, Parts Counter Clerk - 07/10/2010 3:05 PM CDT Patient Status - Physical status Stable (s/s of potential complications absent or manageable) - Psychosocial status Stable Discharge Planning - Discharge From: [facility] - Patient Care Unit: MS3 - PCU - Discharge To: Home - Phone number after [phone] discharge: - Method of discharge: Wheel Chair [...] Primary Md call: - Phone number of [facility] [phone] patient should call: - Is patient going home No with IV Catheter?: Follow Up Care - Physician/clinician Primary MD name: - - When to see 1-2 weeks physician/clinician: Lucero Mccauley (RN)[Signed 12:31] Authored: Patient Status, Discharge Planning, Discharge Information, Medications and Prescriptions, Support Services, Special Care Needs and Instructions, Follow Up Care Interface, Parts Counter Clerk - 07/10/2010 3:05 PM CDT Discharge Summary - Reason for Discharge Discharge from facility - Progress toward Goals partially met, Did not meet goal of amb achieving short term endurance/assist/stairs goals/hand edger goals - Barriers to achieving Limited tolerance [...] Time MRSA-Contact IsolationComment: 0 04/26/2021 11:03 AM SCREEDMAN/LABORER Infection erroneous documented as of this encounter
--- OUTSIDE RECORDS SUMMARY | 2022-03-26 21:35 | XMS_ITS | Encounter Summary ---
:1960 Author Organization [facility] Address [address] [place] [address] Care Team Providers Name Role Phone Unavailable Primary Care Provider Unavailable Encounter Details Date Type Department Care Team Description 07/01/2009 Historic Notes INTERFACED REPORT Cali Dang MD [address] [place], [place] [address] (Wo rk) Social History [...] to correctly state year, president, and location ([place]) HEART: Normal S1, S2 with no edema. [...] this time. needs ICU care. d/w nursing spikemaking supervisor; ICU is full, but they will [...] Time MRSA-Contact IsolationComment: 0 04/26/2021 11:03 AM BATCH HEAT TREAT OPERATOR Infection erroneous documented as of this encounter
--- OUTSIDE RECORDS SUMMARY | 2022-03-26 21:35 | XMS_ITS | Encounter Summary ---
:1960 Author Organization [facility] Address [address] [place] [address] Care Team Providers Name Role Phone Unavailable Primary Care Provider Unavailable Encounter Details Date Type Department Care Team Description 07/06/2009 Discharge Summary [facility] Luisa Carrillo M D ([employer]) [facility] [address] [place] [address] [place] [address] (Wo rk) Social History Tobacco Use Types [...] fell while going up stairs. Per the technical healthcare consultant notes, a breathalyzer at the scene revealed [...] his use if he fails to quit. sanitation worker was involved. In addition, his sister [...] DISPOSITION: Discharge to home with his fiancee. sanitation worker was actively involved with his case this admission and did give him the CD resources for Rule 25 assessment to be done at [facility] the following morning after discharge. Electronically signed on 07/31/2009 14:20 by LUISA CARRILLO MD MT: [id number] Name: ELIJAH BROWN Account: [id number] : 1960 Admit Date: Discharge Date: 07/06/2009 Document: [id number] documented in this encounter Plan of Treatment Not on filedocumented as of this encounter Visit Diagnoses Not on filedocumented in this encounter Additional Health Concerns Infection Onset Date Last Indicated Resolved Time MRSA-Contact IsolationComment: 0 04/26/2021 11:03 AM GREEN PRIZE PACKER Infection erroneous documented as of this encounter
--- OUTSIDE RECORDS SUMMARY | 2022-03-26 21:35 | XMS_ITS | Encounter Summary ---
:1960 Author Organization [facility] Address [address] [place] [address] Care Team Providers Name Role Phone Unavailable Primary Care Provider Unavailable Encounter Details Date Type Department Care Team Description 03/20/2009 Results Only [facility] Liam Traylor MD Hospital Results [address] [place], [place] [address] (Wo rk) Social History [...] 10:43 AM Resul ts for this EVALUATION ART CRITIC procedure are i n the results section. documented in this encounter Results SPEECH EVALUATION, COMPLEX (03/20/2009 10:43 AM ART CRITIC) Anatomical Region Laterality Modality Other Specimen (Source) Anatomical Collection Method Collection Time Re ceived Time Location / / Volume Laterality 03/20/2009 10:43 AM ART CRITIC Impressions 03/20/2009 11:20 AM ART CRITIC VIDEO SPEECH EVALUATION Mar 20, 2009 10: [...] Time MRSA-Contact IsolationComment: 0 04/26/2021 11:03 AM ART CRITIC Infection erroneous documented as of this encounter
--- OUTSIDE RECORDS SUMMARY | 2022-03-26 21:35 | XMS_ITS | Encounter Summary ---
:1960 Author Organization [facility] Address [address] [place] [address] Care Team Providers Name Role Phone Unavailable [...] as of this encounter Progress Notes Interface, Air Brake Rigger - 07/10/2010 2:34 PM CDT Discharge Summary - Reason for Discharge All goals and outcomes met, no further needs identified - Progress toward Goals met achieving short term goals/rickshaw driver goals - Comments DIPPER CLOCK AND WATCH HANDS goals to be met by 03/26/09. 1. [...] Time MRSA-Contact IsolationComment: 0 04/26/2021 11:03 AM CIRCULAR DISTRIBUTOR Infection erroneous documented as of this encounter
--- OUTSIDE RECORDS SUMMARY | 2022-03-26 21:35 | XMS_ITS | Encounter Summary ---
:1960 Author Organization [facility] Address [address] [place] [address] Care Team Providers Name Role Phone Unavailable Primary Care Provider Unavailable Encounter Details Date Type Department Care Team Description 06/30/2009 Results Only [facility] Rina Shin MD Hospital Results [facility] [address] [place], [place] [address] (Wo rk) Social History [...] 06/30/2009 11:31 AM Results for this CONTRAST COOKING CHEF procedure are i n the results section. documented in this encounter Results CT SCAN HEAD/BRAIN (06/30/2009 11:31 AM COOKING CHEF) Anatomical Region Laterality Modality Other Specimen (Source) Anatomical Collection Method Collection Time Re ceived Time Location / / Volume Laterality 06/30/2009 11:31 AM COOKING CHEF Impressions 07/01/2009 12:[address] HEAD WITHOUT CONTRAST June 30, 2009 [...] Time MRSA-Contact IsolationComment: 0 04/26/2021 11:03 AM COOKING CHEF Infection erroneous documented as of this encounter
--- OUTSIDE RECORDS SUMMARY | 2022-03-26 21:35 | XMS_ITS | Encounter Summary ---
:1960 Author Organization [facility] Address [address] [place] [address] Care Team Providers Name Role Phone Unavailable [...] as of this encounter Progress Notes Interface, Teacher Of The Deaf/Hard Of Hearing - 07/10/2010 3:09 PM CDT Nutrition Diagnosis - Nutrition diagnosis: PREVIOUS (03/16): Inadequtate oral food/beverage intake related to intubation AEB pt need for TF. Anthropometrics - Admission weight: 86kg - Current weight: 84.2kg - Dosing weight: 86kg Nutrition Prescription/Intake Tolerance - Nutrition CLear Liquid Prescription: HTL - Comments:: TF d/c'd on 03/18. - Intake/tolerance: Per GOLF STUD RIVETER, pt was drinking thin liquids last night [...] toxins A and B negative ARF improved GOLF STUD RIVETER following + Temp Estimated Needs - Needs based on: Admit wt: 86kg - Energy needs: 8863-8767 kcal (25-30kcal/kg) - wt maintenance - Protein needs: 85-100 g pro (1.2-1.4g/kg) - repletion - Fluid needs: 6646-5125 mL fluid (25-30mL/kg) Evaluation - Progress toward [...] kcal/pro needs. Interventions - Interventions: Spoke with GOLF STUD RIVETER regarding diet order. Pt on CLear liquids, HTL. WIll send frosty thick/resource shake with meals TID once diet adv beyond clears. Encourage intake. - Goals: Pt to consume >50% of meals. - Follow-up: Monitor po intake, diet adv per GOLF STUD RIVETER. Monitor labs - protein labs, electrolytes. Monitor stooling. - Recommendations: Rec imodium. Rec diet adv per GOLF STUD RIVETER. Signatures NIRMALA LAND (RD, LD)[Signed 10:07] Authored: Nutrition Diagnosis, Anthropometrics, Nutrition Prescription/Intake Tolerance, Labs/Medications, Procedures, Physical Findings, Estimated Needs, Evaluation, Current Nutrition Diagnosis, Interventions Interface, Teacher Of The Deaf/Hard Of Hearing - 07/10/2010 3:09 PM CDT General Information [...] Scale: Thin Liquid Trial Results VFSS Evaluation: [place]-Thick Texture Trial - Mode of Presentation cup; spoon - Order of Presentation 4, 5, 6, - Preparatory Phase WFL - Oral Phase WFL - Rosenbek's (1) no aspiration, contrast does not enter Penetration airway Aspiration Scale: [place]-Thick Liquid Trial Results VFSS Evaluation: Honey-Thick Texture [...] Evaluation: Thin Liquid Texture Trial, VFSS Evaluation: [place]-Thick Texture Trial, VFSS Evaluation: Honey-Thick Texture Trial, VFSS Evaluation: Pudding-Thick Texture Trial, VFSS Evaluation: Semisolid Texture Trial, Swallowing Compensations, Impression Interface, Teacher Of The Deaf/Hard Of Hearing - 07/10/2010 3:08 PM CDT General Information [...] Mobility: Rolling/Turning - Level of stand-by assist Hodgeman: Bed Mobility: Scooting/Bridging - Level of stand-by assist Hodgeman: Bed Mobility: Sit to Supine - Level of stand-by assist Hodgeman: Bed Mobility: Supine to Sit - Level of stand-by assist Hodgeman: Bed Mobility Analysis - Impairments impaired balance Contributing to Impaired Bed Mobility: Transfer: Sit to Stand - Level of stand-by assist Hodgeman: Transfer: Stand to Sit - Level of stand-by assist Hodgeman: Toilet Transfer - Level of stand-by assist Hodgeman: Toilet Transfer Analysis - Impairments impaired balance Contributing to Impaired Transfers: Grooming - Level of stand-by assist, not very complete with shaving, Hodgeman: but unaware of this - Physical supervision Assist/Nonphysical Assist: Lower Body Dressing - Level of stand-by assist Hodgeman: Treatment Plan - Treatments: ADL Retraining, Functional [...] Body Dressing, Treatment Plan, Clinical Impression Interface, Teacher Of The Deaf/Hard Of Hearing - 07/10/2010 3:08 PM CDT SH--Ongoing spiritual/emotional [...] this time. Following. [Signature] Author: Luciana Rose ([employer]) [Signed 14:32] Interface, Teacher Of The Deaf/Hard Of Hearing - 07/10/2010 3:08 PM CDT Attempted to meet with pt today. He was in the bathroom during the first attempt and out of the room on the second attempt. SWS will continue to try to meet with pt regarding CD resources. [Signature] Author: GELACIO MARTIN ([facility]) [Signed 14:48] Interface, Teacher Of The Deaf/Hard Of Hearing - 07/10/2010 3:08 PM CDT [place] [facility]. A. Met with the pt to discuss the consult order. Pt reports that he has struggled with alcohol use. He has not had treatment. He was not interested in treatment at this time. He explained how this hospitalization has helped him to understand the importance of not drinking. I did discuss outpt [employer] health evals/screenings through [facility] with him and provided him wiht a handout for future use. I also discussed AA meetings and such with the pt as well. Information to connect with these programs was also in the handout. P. Pt provided with CD service information. [Signature] Author: GELACIO MARTIN ([facility]) [Signed 16:20] documented in this encounter Plan of Treatment Not on filedocumented as of this encounter Visit Diagnoses Not on filedocumented in this encounter Additional Health Concerns Infection Onset Date Last Indicated Resolved Time MRSA-Contact IsolationComment: 0 04/26/2021 11:03 AM COMPUTER CONSULTANT Infection erroneous documented as of this encounter
--- OUTSIDE RECORDS SUMMARY | 2022-03-26 21:35 | XMS_ITS | Encounter Summary ---
:1960 Author Organization [facility] Address [address] [place] [address] Care Team Providers Name Role Phone Unavailable Primary Care Provider Unavailable Encounter Details Date Type Department Care Team Description 06/30/2009 Historic Results INTERFACED REPORT Rina Shin MD [facility] [address] [place], [place] [address] (Wo rk) Social History [...] esults for this URINE (FL, RH, SH) PLANNER CHIEF procedure are in the results section. CBC WITH PLATELETS & STAT 06/30/2009 11:10 Res ults for this DIFFERENTIAL AM PLANNER CHIEF procedure are i n the results section. ETHYL ALCOHOL LEVEL STAT 06/30/2009 11:10 Resu lts for this AM PLANNER CHIEF procedure are i n the results section. BASIC METABOLIC PANEL STAT 06/30/2009 11:10 Re sults for this AM PLANNER CHIEF procedure are i n the results section. documented in this encounter Results Drug abuse screen 77 urine (FL, RH, SH) (06/30/2009 1:15 PM PLANNER CHIEF) [facility] Method Time Signature Amphetamine Qual Negative [...] / Volume Laterality 06/30/2009 1:15 PM 0 PLANNER CHIEF 10:49 AM PLANNER CHIEF Rina Shin MD LAB - URINE ORDERABLES Performing Organization Address City/State/ZIP Code Phon e Number MISYS (ABNORMAL) CBC with platelets differential (06/30/2009 11:10 AM PLANNER CHIEF) [facility] gist Method Time Signature MCV 94 78 [...] / Volume Laterality 06/30/2009 11:10 06/30/2009 AM PLANNER CHIEF 10:49 AM PLANNER CHIEF Rina Shin MD LAB - BLOOD ORDERABLES Performing Organization Address City/State/ZIP Code Phon e Number MISYS (ABNORMAL) Basic metabolic panel (06/30/2009 11:10 AM PLANNER CHIEF) P athologist Signature Sodium 135 133 - [...] / Volume Laterality 06/30/2009 11:10 06/30/2009 AM PLANNER CHIEF 10:49 AM PLANNER CHIEF Rina Shin MD LAB - BLOOD ORDERABLES Performing Organization Address City/State/ZIP Code Phon e Number MISYS (ABNORMAL) Alcohol ethyl (06/30/2009 11:10 AM PLANNER CHIEF) P athologist Signature Ethanol g/dL 0.37 (HH) 0.01 g/dL MISYS Comment: Specimen run with a dilution Critical Value called to and read back by KAPIL) ON 06.30.09 AT 1142 BY MARY Specimen Anatomical Collection Method Collection Time Receive d Time (Source) Location / / Volume Laterality 06/30/2009 11:10 06/30/2009 AM PLANNER CHIEF 10:49 AM PLANNER CHIEF Rina Shin MD LAB - BLOOD ORDERABLES Performing Organization Address City/State/ZIP Code Phon e Number MISYS documented in this encounter Visit Diagnoses Not on filedocumented in this encounter Additional Health Concerns Infection Onset Date Last Indicated Resolved Time MRSA-Contact IsolationComment: 0 04/26/2021 11:03 AM PLANNER CHIEF Infection erroneous documented as of this encounter
--- OUTSIDE RECORDS SUMMARY | 2022-03-26 21:35 | XMS_ITS | Encounter Summary ---
:1960 Author Organization [facility] Address [address] [place] [address] Care Team Providers Name Role Phone Unavailable Primary Care Provider Unavailable Encounter Details Date Type Department Care Team Description 03/19/2009 Historic Notes INTERFACED REPORT Bill Palomares, PERSONNEL SCHEDULER [facility] [address] [facility] [place], [place] [address] Social History Tobacco Use [...] Time MRSA-Contact IsolationComment: 0 04/26/2021 11:03 AM SHEARER OPERATOR Infection erroneous documented as of this encounter
--- OUTSIDE RECORDS SUMMARY | 2022-03-26 21:35 | XMS_ITS | Encounter Summary ---
:1960 Author Organization [facility] Address [address] [place] [address] Care Team Providers Name Role Phone Unavailable [...] as of this encounter Progress Notes Interface, Residential Green Building Designer - 07/10/2010 8:46 AM CDT Progress Note - :: Pt scores etoh scores 7-11. medicated with 6 iv and po 1 mg ativan. Inc of urine and stool, rondon palced. Attempts to climb out of bed. See order to transfer to ICU T max 100.1, [id number]'s. Started Metroprolol IV. Transfering to unit at 1230 Signatures SHRUTI BREWER (OZZIE)[Signed 12:09] Authored: Progress Note Interface, Residential Green Building Designer - 07/10/2010 8:45 AM CDT Call from [...] pt as able. [Signature] Author: Fina Mayfield ([facility]) [Signed 13:32] documented in this encounter Plan of Treatment Not on filedocumented as of this encounter Visit Diagnoses Not on filedocumented in this encounter Additional Health Concerns Infection Onset Date Last Indicated Resolved Time MRSA-Contact IsolationComment: 0 04/26/2021 11:03 AM PIECE PRESSER Infection erroneous documented as of this encounter
--- OUTSIDE RECORDS SUMMARY | 2022-03-26 21:36 | XMS_ITS | Encounter Summary ---
:1960 Author Organization [facility] Address [address] [place] [address] Care Team Providers Name Role Phone Unavailable Primary Care Provider Unavailable Encounter Details Date Type Department Care Team Description 03/18/2009 Historic Results [facility]ni Church MD Hospitalists [address] [place], [place] [address] (Wo rk) Social History [...] 03/18/2009 8:23 PM Resul ts for this LOGISTICS PLANNING ENGINEER procedure are i n the results section. GLUCOSE BY METER Routine 03/18/2009 4:03 PM Resul ts for this LOGISTICS PLANNING ENGINEER procedure are i n the results section. POTASSIUM Routine 03/18/2009 2:45 PM Results f or this LOGISTICS PLANNING ENGINEER procedure are i n the results section. PHOSPHORUS Routine 03/18/2009 2:45 PM Results f or this LOGISTICS PLANNING ENGINEER procedure are i n the results section. MAGNESIUM Routine 03/18/2009 2:45 PM Results f or this LOGISTICS PLANNING ENGINEER procedure are i n the results section. GLUCOSE BY METER Routine 03/18/2009 12:00 Results for this PM LOGISTICS PLANNING ENGINEER procedure are i n the results section. CBC WITH PLATELETS & Routine 03/18/2009 7:45 AM R esults for this DIFFERENTIAL LOGISTICS PLANNING ENGINEER procedure are i n the results section. PHOSPHORUS Routine 03/18/2009 7:45 AM Results f or this LOGISTICS PLANNING ENGINEER procedure are i n the results section. MAGNESIUM Routine 03/18/2009 7:45 AM Results f or this LOGISTICS PLANNING ENGINEER procedure are i n the results section. BASIC METABOLIC PANEL Routine 03/18/2009 7:45 AM Results for this LOGISTICS PLANNING ENGINEER procedure are i n the results section. GLUCOSE BY METER Routine 03/18/2009 7:36 AM Resul ts for this LOGISTICS PLANNING ENGINEER procedure are i n the results section. GLUCOSE BY METER Routine 03/18/2009 3:47 AM Resul ts for this LOGISTICS PLANNING ENGINEER procedure are i n the results section. GLUCOSE BY METER Routine 03/18/2009 12:08 Results for this AM LOGISTICS PLANNING ENGINEER procedure are i n the results section. documented in this encounter Results (ABNORMAL) Glucose by meter (03/18/2009 8:23 PM LOGISTICS PLANNING ENGINEER) P athologist Signature Glucose 139 (H) 60 - 99 MISYS mg/dL Specimen Anatomical Collection Method Collection Time Receive d Time (Source) Location / / Volume Laterality 03/18/2009 8:23 PM 9 8:35 LOGISTICS PLANNING ENGINEER PM LOGISTICS PLANNING ENGINEER Kaiden REHMAN - JESICA POCT Performing Organization Address City/[facility]/ZIP Code Phon e Number MISYS (ABNORMAL) Glucose by meter (03/18/2009 4:03 PM LOGISTICS PLANNING ENGINEER) P athologist Signature Glucose 213 (H) 60 - 99 MISYS mg/dL Specimen Anatomical Collection Method Collection Time Receive d Time (Source) Location / / Volume Laterality 03/18/2009 4:03 PM 9 4:15 LOGISTICS PLANNING ENGINEER PM LOGISTICS PLANNING ENGINEER Kaiden REHMAN - JESICA POCT Performing Organization Address City/[facility] Code Phon e Number MISYS (ABNORMAL) Phosphorus (03/18/2009 2:45 PM LOGISTICS PLANNING ENGINEER) P athologist Signature Phosphorus 2.3 (L) 2.5 - 4.5 MISYS mg/dL Specimen Anatomical Collection Method Collection Time Receive d Time (Source) Location / / Volume Laterality 03/18/2009 2:45 PM 9 2:51 LOGISTICS PLANNING ENGINEER PM LOGISTICS PLANNING ENGINEER Brian Turner MD LAB - BLOOD ORDERABLES Performing Organization Address City/[facility]/ZIP [facility] Phon e Number MISYS Magnesium (03/18/2009 2:45 PM LOGISTICS PLANNING ENGINEER) P athologist Signature Magnesium 1.9 1.6 - 2.3 MISYS mg/dL Specimen Anatomical Collection Method Collection Time Receive d Time (Source) Location / / Volume Laterality 03/18/2009 2:45 PM 9 2:52 LOGISTICS PLANNING ENGINEER PM LOGISTICS PLANNING ENGINEER Brian Turner MD LAB - BLOOD ORDERABLES Performing Organization Address [facility] Phon e Number MISYS Potassium (03/18/2009 2:45 PM LOGISTICS PLANNING ENGINEER) athologist Signature Potassium 4.4 3.4 - 5.3 MISYS mmol/L Comment: Results confirmed by repeat patricia t Specimen Anatomical Collection Method Collection Time Receive d Time (Source) Location / / Volume Laterality 03/18/2009 2:45 PM 9 2:52 LOGISTICS PLANNING ENGINEER PM LOGISTICS PLANNING ENGINEER Brian Turner MD LAB - BLOOD ORDERABLES Performing Organization Address [facility] Phon e Number MISYS (ABNORMAL) Glucose by meter (03/18/2009 12:00 PM LOGISTICS PLANNING ENGINEER) athologist Signature Glucose 172 (H) 60 - 99 MISYS mg/dL Specimen Anatomical Collection Method Collection Time Receive d Time (Source) Location / / Volume Laterality 03/18/2009 12:00 03/18/2009 PM LOGISTICS PLANNING ENGINEER 12:35 PM LOGISTICS PLANNING ENGINEER Kaiden Carpenter MD LAB - BEAKER POCT Performing Organization Address [facility] Phon e Number MISYS (ABNORMAL) Magnesium (03/18/2009 7:45 AM LOGISTICS PLANNING ENGINEER) athologist Signature Magnesium 1.5 (L) 1.6 - 2.3 MISYS mg/dL Specimen (Source) Anatomical Collection Method Collection Time Re ceived Time Location / / Volume Laterality 03/18/2009 7:45 AM 9 LOGISTICS PLANNING ENGINEER Brian Turner MD LAB - BLOOD ORDERABLES Performing Organization Address [facility] Phon e Number MISYS (ABNORMAL) Basic metabolic panel (03/18/2009 7:45 AM LOGISTICS PLANNING ENGINEER) Analysis Performed At Patho logist Time [...] / Volume Laterality 03/18/2009 7:45 AM 9 LOGISTICS PLANNING ENGINEER Brian Turner MD LAB - BLOOD ORDERABLES Performing Organization Address City/State/ZIP Code Phon e Number MISYS (ABNORMAL) Phosphorus (03/18/2009 7:45 AM LOGISTICS PLANNING ENGINEER) P athologist Signature Phosphorus 1.6 (L) 2.5 - 4.5 MISYS mg/dL Specimen (Source) Anatomical Collection Method Collection Time Re ceived Time Location / / Volume Laterality 03/18/2009 7:45 AM 9 LOGISTICS PLANNING ENGINEER Brian Turner MD LAB - BLOOD ORDERABLES Performing Organization Address City/State/ZIP Code Phon e Number MISYS (ABNORMAL) CBC with platelets differential (03/18/2009 7:45 AM LOGISTICS PLANNING ENGINEER) Component Value Ref Test Analysis Performed [...] / Volume Laterality 03/18/2009 7:45 AM 9 LOGISTICS PLANNING ENGINEER Liam Traylor MD LAB - BLOOD ORDERABLES Performing Organization Address City/[facility]/ZIP Code Phon e Number MISYS (ABNORMAL) Glucose by meter (03/18/2009 7:36 AM LOGISTICS PLANNING ENGINEER) athologist Signature Glucose 221 (H) 60 - 99 MISYS mg/dL Specimen Anatomical Collection Method Collection Time Receive d Time (Source) Location / / Volume Laterality 03/18/2009 7:36 AM 9 8:21 LOGISTICS PLANNING ENGINEER AM LOGISTICS PLANNING ENGINEER Kaiden Carpenter MD LAB - BEAKER POCT Performing Organization Address City/State/ZIP Code Phon e Number MISYS (ABNORMAL) Glucose by meter (03/18/2009 3:47 AM LOGISTICS PLANNING ENGINEER) P athologist Signature Glucose 206 (H) 60 - 99 MISYS mg/dL Specimen Anatomical Collection Method Collection Time Receive d Time (Source) Location / / Volume Laterality 03/18/2009 3:47 AM 9 4:05 LOGISTICS PLANNING ENGINEER AM LOGISTICS PLANNING ENGINEER Kaiden Carpenter MD LAB - JESICA POCT Performing Organization Address City/State/ZIP Code Phon e Number MISYS (ABNORMAL) Glucose by meter (03/18/2009 12:08 AM LOGISTICS PLANNING ENGINEER) P athologist Signature Glucose 188 (H) 60 - 99 MISYS mg/dL Specimen Anatomical Collection Method Collection Time Receive d Time (Source) Location / / Volume Laterality 03/18/2009 12:08 03/18/2009 3:15 AM LOGISTICS PLANNING ENGINEER AM LOGISTICS PLANNING ENGINEER Kaiden MOONEY POCT Performing Organization Address City/State/ZIP [facility] [place]on [place] Number MISYS documented in this encounter Visit Diagnoses Not on filedocumented in this encounter Additional Health Concerns Infection Onset Date Last Indicated Resolved Time MRSA-Contact IsolationComment: 0 04/26/2021 11:03 AM LOGISTICS PLANNING ENGINEER Infection erroneous documented as of this encounter
--- OUTSIDE RECORDS SUMMARY | 2022-03-26 21:36 | XMS_ITS | Encounter Summary ---
:1960 Author Organization [facility] Address [address] [place] [address] Care Team Providers Name Role Phone Unavailable Primary Care Provider Unavailable Encounter Details Date Type Department Care Team Description 03/15/2009 Historic Notes INTERFACED REPORT Deep Alston MD [address] [place], [place] [address] (Wo rk) Social History [...] MRSA-Contact IsolationComment: 0 04/26/2021 11:03 AM TEXTILE PIN WORKER Infection erroneous documented as of this encounter
--- OUTSIDE RECORDS SUMMARY | 2022-03-26 21:36 | XMS_ITS | Encounter Summary ---
:1960 Author Organization [facility] Address [address] [place] [address] Care Team Providers Name Role Phone Unavailable [...] as of this encounter Progress Notes Interface, [employer] Freight Car Cleaner - 07/10/2010 3:20 PM CDT NUTRITION NOTE: Pts renal fx improving. Protein needs increased to 1.0-1.2g/kg. Able to change TF formula to Fibersource HN. New TF formula order: Fibersource HN @ 75mL/hr = 2160 kcal (25kcal/kg), 96g pro (1.1g/kg), 18 g fiber, and 1458mL fluid. This meets 100% of pts nutritional needs. [Signature] Author: NIRMALA LAND (RD, LD) [Signed 10:32] Interface, [employer] System Freight Car Cleaner - 07/10/2010 3:18 PM CDT SH--Routine visit. Introduced myself to patient, who was vented but awake. No family members were present. Provided reassurance, caring touch, and emotional care and support. Also, offered prayer, which he declined. Will follow. [Signature] Author: Luciana Rose (Asic Design Engineer) [Signed 18:30] documented in this encounter Plan of Treatment Not on filedocumented as of this encounter Visit Diagnoses Not on filedocumented in this encounter Additional Health Concerns Infection Onset Date Last Indicated Resolved Time MRSA-Contact IsolationComment: 0 04/26/2021 11:03 AM BOLOGNA MAKER Infection erroneous documented as of this encounter
--- OUTSIDE RECORDS SUMMARY | 2022-03-26 21:36 | XMS_ITS | Encounter Summary ---
:1960 Author Organization [facility] Address [address] [place] [address] Care Team Providers Name Role Phone Unavailable Primary Care Provider Unavailable Encounter Details Date Type Department Care Team Description 03/14/2009 Historic Notes INTERFACED REPORT Xu Wyatt [facility] [address] [facility] [address] [place] [address] (Wo rk) Social History Tobacco [...] Respiratory failure: continue current vent support. GB [phone] [Signature] Author: BRIAN WYATT) [Signed 08:53] documented in this encounter Plan of Treatment Not on filedocumented as of this encounter Visit Diagnoses Not on filedocumented in this encounter Additional Health Concerns Infection Onset Date Last Indicated Resolved Time MRSA-Contact IsolationComment: 0 04/26/2021 11:03 AM VIDEOTAPE EDITOR Infection erroneous documented as of this encounter
--- OUTSIDE RECORDS SUMMARY | 2022-03-26 21:36 | XMS_ITS | Encounter Summary ---
:1960 Author Organization [facility] Address [address] [place] [address] Care Team Providers Name Role Phone Unavailable [...] 03/14/2009 2:09 AM Results f or this ASSISTANT TO THE CEO procedure are i n the results section . documented in this encounter Results EKG 12 LEAD (03/14/2009 2:09 AM ASSISTANT TO THE CEO) Component Value Ref Range Test Analysis Performed Pathologis t Method Time At Signature Ventricular Rate 125 BPM RADIOLOGY RESULTS Atrial Rate 125 BPM RADIOLOGY RESULTS VA Interval 148 ms RADIOLOGY RESULTS QRS Duration 104 ms RADIOLOGY RESULTS QT 300 ms RADIOLOGY RESULTS QTc 433 ms RADIOLOGY RESULTS P [place] 43 degrees RADIOLOGY RESULTS R AXIS -4 degrees RADIOLOGY RESULTS T [place] 13 degrees RADIOLOGY RESULTS Interpretation AGE AND GENDER SPECIFIC ECG ANALYSIS RADIOLOGY ECG Sinus tachycardia RESULTS Otherwise normal ECG Unconfirmed report - interpretation of this ECG is compute r generated - see medical record for final interpretation Specimen Anatomical Collection Method Collection Time Receive d Time (Source) Location / / Volume Laterality 03/14/2009 2:09 AM 9 ASSISTANT TO THE CEO 10:47 AM ASSISTANT TO THE CEO Transcripton Interface ECG ORDERABLES Performing Organization Address City/State/ZIP Code Phon e Number RADIOLOGY RESULTS documented in this encounter Visit Diagnoses Not on filedocumented in this encounter Additional Health Concerns Infection Onset Date Last Indicated Resolved Time MRSA-Contact IsolationComment: 0 04/26/2021 11:03 AM ASSISTANT TO THE CEO Infection erroneous documented as of this encounter
--- OUTSIDE RECORDS SUMMARY | 2022-03-26 21:36 | XMS_ITS | Encounter Summary ---
:1960 Author Organization [facility] Address [address] [place] [address] Care Team Providers Name Role Phone Unavailable Primary Care Provider Unavailable Encounter Details Date Type Department Care Team Description 03/15/2009 Historic Notes INTERFACED REPORT Xu Wyatt MD [facility] [address] [place] [address] (Wo rk) Social History Tobacco [...] soft Ext: no edema 7.5/28/177 K 4.3, Base Wad Operator Adjuster 8.4, Mg 1.8, CK 705 A/P: Alcohol [...] consider TFs if pt still intubated tomorrow [phone] [Signature] Author: BRIAN WYATT) [Signed 09:48] documented in this encounter Plan of Treatment Not on filedocumented as of this encounter Visit Diagnoses Not on filedocumented in this encounter Additional Health Concerns Infection Onset Date Last Indicated Resolved Time MRSA-Contact IsolationComment: 0 04/26/2021 11:03 AM BEER BREWER Infection erroneous documented as of this encounter
--- OUTSIDE RECORDS SUMMARY | 2022-03-26 21:36 | XMS_ITS | Encounter Summary ---
:1960 Author Organization [facility] Address [address] [place] [address]. [place] [address] Care Team Providers Name Role Phone Unavailable Primary Care Provider Unavailable Encounter Details Date Type Department Care Team Description 03/15/2009 Emergency room [facility] Je Mendes MD [facility] Results [facility] [address] [place] [address] [place] [id number] (Wo rk) Social History Tobacco Use Types Packs/Day Years Used Date Smoking Tobacco: Never Alcohol Use Standard Drinks/Week Comments Yes 0 (1 standard drink = 0.6 oz pure alcoho l) socially approx 5 drinks/wk Sex Assigned at Date Recorded Not on file documented as of this encounter Progress Notes Haroldo Mendes - 05/01/2009 6:26 AM WRIST CLOSER FINAL CHIEF COMPLAINT: Shortness of breath and [...] was cardioverted, Dr. Carpenter noted that the site project manager thought that the patient was likely in rhabdo and was unlikely to require emergent dialysis tonight. He recommended fluid and stabilization resuscitation and that he would be seen in the morning. This greatly concern me as I felt that Mr. Brown met multiple criteria for emergent dialysis tonight. I, therefore, called the site project manager back and explained to him my great [...] EM#[id number] Name: ELIJAH BROWN MRN: [id number] Account: [id number] : 1960 Visit Date: Document: [id number] T CLOSER documented in this encounter Plan of Treatment Not on filedocumented as of this encounter Visit Diagnoses Not on filedocumented in this encounter Additional Health Concerns Infection Onset Date Last Indicated Resolved Time MRSA-Contact IsolationComment: 0 04/26/2021 11:03 AM WRIST CLOSER Infection erroneous documented as of this encounter
--- OUTSIDE RECORDS SUMMARY | 2022-03-26 21:36 | XMS_ITS | Encounter Summary ---
:1960 Author Organization [facility] Address [address] [place] [address] Care Team Providers Name Role Phone Unavailable [...] 03/14/2009 2:10 AM Results f or this BOX FOLDING MACHINE OPERATOR procedure are i n the results section . documented in this encounter Results EKG 12 LEAD (03/14/2009 2:10 AM BOX FOLDING MACHINE OPERATOR) Component Value Ref Range Test Analysis Performed Pathologis t Method Time At Signature Ventricular Rate 124 BPM RADIOLOGY RESULTS Atrial Rate 124 BPM RADIOLOGY RESULTS [place] Interval 146 ms RADIOLOGY RESULTS QRS Duration 104 ms RADIOLOGY RESULTS QT 302 ms RADIOLOGY RESULTS QTc 433 ms RADIOLOGY RESULTS P [place] 47 degrees RADIOLOGY RESULTS R AXIS -3 degrees RADIOLOGY RESULTS T [place] 8 degrees RADIOLOGY RESULTS Interpretation AGE AND GENDER SPECIFIC ECG ANALYSIS RADIOLOGY ECG Sinus tachycardia RESULTS Otherwise normal ECG Unconfirmed report - interpretation of this ECG is compute r generated - see medical record for final interpretation Specimen Anatomical Collection Method Collection Time Receive d Time (Source) Location / / Volume Laterality 03/14/2009 2:10 AM 9 BOX FOLDING MACHINE OPERATOR 10:47 AM BOX FOLDING MACHINE OPERATOR Transcripton Interface ECG ORDERABLES Performing Organization Address City/State/ZIP Code Phon e Number RADIOLOGY RESULTS documented in this encounter Visit Diagnoses Not on filedocumented in this encounter Additional Health Concerns Infection Onset Date Last Indicated Resolved Time MRSA-Contact IsolationComment: 0 04/26/2021 11:03 AM BOX FOLDING 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
--- OUTSIDE RECORDS SUMMARY | 2022-03-26 21:36 | XMS_ITS | Encounter Summary ---
:1960 Author Organization [facility] Address [address] [place] [address] Care Team Providers Name Role Phone Unavailable [...] as of this encounter Progress Notes Interface, P D Driver - 07/10/2010 3:15 PM CDT SWS-Attempted again to assess pt and pt continues to be sleeping. Will try again. [Signature] Author: Janeen Bai (DISTRIBUTION FIELD ENGINEER) [Signed 14:05] documented in this encounter Plan of Treatment Not on filedocumented as of this encounter Visit Diagnoses Not on filedocumented in this encounter Additional Health Concerns Infection Onset Date Last Indicated Resolved Time MRSA-Contact IsolationComment: 0 04/26/2021 11:03 AM RENTAL SALES AGENT Infection erroneous documented as of this encounter
--- OUTSIDE RECORDS SUMMARY | 2022-03-26 21:36 | XMS_ITS | Encounter Summary ---
:1960 Author Organization [facility] Address [address] [place] [address] Care Team Providers Name Role Phone Unavailable [...] as of this encounter Progress Notes Interface, Sheet Taker - 07/10/2010 3:24 PM CDT SWS D: SW received order to assist pt. w/ discharge planning. A: Pt. is currently on a vent and is not arousable. P: SW will continue to follow and meet w/ pt. once he is awake and able to be interviewed. [Signature] Author: Mai Orosco (RAIL CAR UNLOADER) [Signed 10:30] Interface, Sheet Taker - 07/10/2010 3:24 PM CDT Tube Feeding Consult: Medications reviewed for drug/nutrient interaction and administration by feeding tube. No changes recommended at this time. [Signature] Author: Brian Hoyos (Pharmacist) [Signed 10:44] Interface, Sheet Taker - 07/10/2010 3:23 PM CDT Pt remains intubated on ventilator. cmv 8/650/30%/+5, wean attempted today on PS +7/+5. weaning failed due to increased RR and decreased Vt and sats. Sx thick yellow sputum. Oral sx bloody. Sats 98-100%, HR 62-74, [Signature] Author: Eloina Andrews ([facility]) [Signed 13:20] Interface, Sheet Taker - 07/10/2010 3:23 PM CDT Nutrition Assessment - Reason for assessment Tube feeding Anthropometrics - Height: 70 - Admission weight: 86kg - IBW ([place] body 75.5kg weight): - % IBW ([place] body 114% weight): - Dosing weight: 86kg [...] on: Admit wt: 86kg - Energy needs: 1340-9545 kcal (25-30kcal/kg) - Protein needs: 50-70g pro (.6-.8g/kg) - renal failure, no further dialysis planned at this time - Fluid needs: 0612-2902 mL fluid (25-30mL/kg) Nutrition Diagnosis - Nutrition [...] Time MRSA-Contact IsolationComment: 0 04/26/2021 11:03 AM FOOD WRITER Infection erroneous documented as of this encounter
--- OUTSIDE RECORDS SUMMARY | 2022-03-26 21:36 | XMS_ITS | Encounter Summary ---
:1960 Author Organization [facility] Address [address] [place] [address] Care Team Providers Name Role Phone Unavailable Primary Care Provider Unavailable Encounter Details Date Type Department Care Team Description 03/16/2009 Historic Notes INTERFACED REPORT Deep Alston MD [address] [place], [place] [address] (Wo rk) Social History [...] Time MRSA-Contact IsolationComment: 0 04/26/2021 11:03 AM SUPERVISING FILM OR VIDEOTAPE EDITOR Infection erroneous documented as of this encounter
--- OUTSIDE RECORDS SUMMARY | 2022-03-26 21:36 | XMS_ITS | Encounter Summary ---
:1960 Author Organization [place] Address [address] [place] [id number] Care Team Providers Name Role Phone Unavailable Primary Care Provider Unavailable Encounter Details Date Type Department Care Team Description 03/15/2009 Historic Results [facility]ianni Church MD Hospitalists [address] [place], [place] [address] (Wo rk) Social History [...] 03/15/2009 7:49 PM Resul ts for this HOMEOWNER ASSOCIATION MANAGER procedure are i n the results section. GLUCOSE BY METER Routine 03/15/2009 4:01 PM Resul ts for this HOMEOWNER ASSOCIATION MANAGER procedure are i n the results section. GLUCOSE BY METER Routine 03/15/2009 11:58 AM Resu lts for this HOMEOWNER ASSOCIATION MANAGER procedure are i n the results section. BLOOD GAS ARTERIAL Routine 03/15/2009 8:45 AM Res ults for this AND OXYHGB HOMEOWNER ASSOCIATION MANAGER procedure are i n the results section. PHOSPHORUS Routine 03/15/2009 5:30 AM Results f or this HOMEOWNER ASSOCIATION MANAGER procedure are i n the results section. MAGNESIUM Routine 03/15/2009 5:30 AM Results f or this HOMEOWNER ASSOCIATION MANAGER procedure are i n the results section. CK TOTAL Routine 03/15/2009 5:30 AM Results f or this HOMEOWNER ASSOCIATION MANAGER procedure are i n the results section. BASIC METABOLIC Routine 03/15/2009 5:30 AM Result s for this PANEL HOMEOWNER ASSOCIATION MANAGER procedure are i n the results section. CBC WITH PLATELETS Routine 03/15/2009 5:30 AM Res ults for this HOMEOWNER ASSOCIATION MANAGER procedure are i n the results section. BLOOD GAS ARTERIAL Routine 03/15/2009 4:20 AM Res ults for this AND OXYHGB HOMEOWNER ASSOCIATION MANAGER procedure are i n the results section. GLUCOSE BY METER Routine 03/15/2009 4:01 AM Resul ts for this HOMEOWNER ASSOCIATION MANAGER procedure are i n the results section. documented in this encounter Results (ABNORMAL) Glucose by meter (03/15/2009 7:49 PM HOMEOWNER ASSOCIATION MANAGER) athologist Signature Glucose 160 (H) 60 - 99 MISYS mg/dL Specimen Anatomical Collection Method Collection Time Receive d Time (Source) Location / / Volume Laterality 03/15/2009 7:49 PM 9 8:20 HOMEOWNER ASSOCIATION MANAGER PM HOMEOWNER ASSOCIATION MANAGER Kaiden REHMAN - JESICA POCT Performing Organization Address [facility] Phon e Number MISYS (ABNORMAL) Glucose by meter (03/15/2009 4:01 PM HOMEOWNER ASSOCIATION MANAGER) athologist Signature Glucose 159 (H) 60 - 99 MISYS mg/dL Specimen Anatomical Collection Method Collection Time Receive d Time (Source) Location / / Volume Laterality 03/15/2009 4:01 PM 9 4:25 HOMEOWNER ASSOCIATION MANAGER PM HOMEOWNER ASSOCIATION MANAGER Kaiden REHMAN - JESICA POCT Performing Organization Address [facility] Phon e Number MISYS (ABNORMAL) Glucose by meter (03/15/2009 11:58 AM HOMEOWNER ASSOCIATION MANAGER) athologist Signature Glucose 127 (H) 60 - 99 MISYS mg/dL Specimen Anatomical Collection Method Collection Time Receive d Time (Source) Location / / Volume Laterality 03/15/2009 11:58 03/15/2009 AM HOMEOWNER ASSOCIATION MANAGER 12:20 PM HOMEOWNER ASSOCIATION MANAGER Kaiden MOONEY POCT Performing Organization Address [facility] Phon e Number MISYS (ABNORMAL) Blood gas arterial and oxyhgb (03/15/2009 8:45 AM HOMEOWNER ASSOCIATION MANAGER) [facility] Method Time Signature pH Arterial 7.44 [...] Volume Laterality 03/15/2009 8:45 AM 9 5:04 HOMEOWNER ASSOCIATION MANAGER AM HOMEOWNER ASSOCIATION MANAGER Provider Unknown LAB - BLOOD ORDERABLES Performing Organization Address City/State/ZIP Code Phon e Number MISYS (ABNORMAL) Basic metabolic panel (03/15/2009 5:30 AM HOMEOWNER ASSOCIATION MANAGER) Analysis Performed At [facility] Time Signature Sodium 134 133 - 144 [...] / Volume Laterality 03/15/2009 5:30 AM 9 HOMEOWNER ASSOCIATION MANAGER Brian Turner MD LAB - BLOOD ORDERABLES Performing Organization Address City/State/ZIP Code Phon e Number MISYS (ABNORMAL) CBC with platelets (03/15/2009 5:30 AM HOMEOWNER ASSOCIATION MANAGER) Analysis Performed At [facility] Time Signature MCV 94 78 - 100 [...] / Volume Laterality 03/15/2009 5:30 AM 9 HOMEOWNER ASSOCIATION MANAGER Brian Turner MD LAB - BLOOD ORDERABLES Performing Organization Address City/State/ZIP Code Phon e Number MISYS (ABNORMAL) CK total (03/15/2009 5:30 AM HOMEOWNER ASSOCIATION MANAGER) P athologist Signature CK Total 705 (H) 45 - 300 MISYS U/L Specimen (Source) Anatomical Collection Method Collection Time Re ceived Time Location / / Volume Laterality 03/15/2009 5:30 AM 9 HOMEOWNER ASSOCIATION MANAGER Brian Turner MD LAB - BLOOD ORDERABLES Performing Organization Address City/[facility]/ZIP Code Phon e Number MISYS Magnesium (03/15/2009 5:30 AM HOMEOWNER ASSOCIATION MANAGER) athologist Signature Magnesium 1.8 1.6 - 2.3 MISYS mg/dL Specimen (Source) Anatomical Collection Method Collection Time Re ceived Time Location / / Volume Laterality 03/15/2009 5:30 AM 9 HOMEOWNER ASSOCIATION MANAGER Brian Turner MD LAB - BLOOD ORDERABLES Performing Organization Address City/State/ZIP Code Phon e Number MISYS Phosphorus (03/15/2009 5:30 AM HOMEOWNER ASSOCIATION MANAGER) P athologist Signature Phosphorus 4.4 2.5 - 4.5 MISYS mg/dL Specimen (Source) Anatomical Collection Method Collection Time Re ceived Time Location / / Volume Laterality 03/15/2009 5:30 AM 9 HOMEOWNER ASSOCIATION MANAGER Brian Turner MD LAB - BLOOD ORDERABLES Performing Organization Address City/State/ZIP Code Phon e Number MISYS (ABNORMAL) Blood gas arterial and oxyhgb (03/15/2009 4:20 AM HOMEOWNER ASSOCIATION MANAGER) Patholo gist Method Time Signature pH Arterial [...] / Volume Laterality 03/15/2009 4:20 AM 9 HOMEOWNER ASSOCIATION MANAGER Brian Turner MD LAB - BLOOD ORDERABLES Performing Organization Address City/State/ZIP Code Phon e Number MISYS (ABNORMAL) Glucose by meter (03/15/2009 4:01 AM HOMEOWNER ASSOCIATION MANAGER) P athologist Signature Glucose 173 (H) 60 - 99 MISYS mg/dL Specimen Anatomical Collection Method Collection Time Receive d Time (Source) Location / / Volume Laterality 03/15/2009 4:01 AM 9 5:15 HOMEOWNER ASSOCIATION MANAGER AM HOMEOWNER ASSOCIATION MANAGER Kaiden Carpenter MD LAB - BEAKER POCT Performing Organization Address City/State/ZIP Code Phon e Number MISYS documented in this encounter Visit Diagnoses Not on filedocumented in this encounter Additional Health Concerns Infection Onset Date Last Indicated Resolved Time MRSA-Contact IsolationComment: 0 04/26/2021 11:03 AM HOMEOWNER ASSOCIATION MANAGER Infection erroneous documented as of this encounter
--- OUTSIDE RECORDS SUMMARY | 2022-03-26 21:36 | XMS_ITS | Encounter Summary ---
:1960 Author Organization [place] Address [address] [place] [id number] Care Team Providers Name Role Phone Unavailable [...] as of this encounter Progress Notes Interface, Central Office Operator - 07/10/2010 3:30 PM CDT Pt. placed on 10/5 bipap, rate of 8, 40%. SpO2 97%. Pt. found off bipap per RN at 0015. [Signature] Author: Flora Siddiqui (ASSOCIATE DIRECTOR OF BIOSTATISTICS) [Signed 00:34] Interface, Central Office Operator - 07/10/2010 3:30 PM CDT Notification - [...] SUZANNE OBREGON (RN)[Signed 07:50] Authored: Notification Interface, Central Office Operator - 07/10/2010 3:29 PM CDT General Information - How to be Addressed navarro - Temporary Family none required Living Arrangements - Source of Information family; significant other - Arrived From emergency department - personal injury legal assistant #1: Shalonda - Relationship to girlfriend patient #1: - Contact Location: Home Local - Phone 1: [phone] - personal injury legal assistant #2: Chantal Woods - Relationship to sister patient #2: - Contact Location: Home Local - Phone 1: [phone] - Cell - personal injury legal assistant #3: Juan Pablo - Relationship to mom & dad patient #3: - Phone 1: [phone] - Patient's spoken language; Angolan or Bilingual communication style Advance Directive - [...] abuse, self neglect, lack of adequate food, group home, medical care, or financial exploitation)? Values/Beliefs/Spiritual [...] none Considerations - Developmental none Considerations - Religion none Considerations Mutuality/Individual Preferences - What information [...] Time MRSA-Contact IsolationComment: 0 04/26/2021 11:03 AM STATE PILOT Infection erroneous documented as of this encounter
--- OUTSIDE RECORDS SUMMARY | 2022-03-26 21:36 | XMS_ITS | Encounter Summary ---
:1960 Author Organization [place] Address [address] [place] [id number] Care Team Providers Name Role Phone Unavailable [...] 03/14/2009 1:21 AM Results f or this TOY ASSEMBLER procedure are i n the results section . documented in this encounter Results EKG 12 LEAD (03/14/2009 1:21 AM TOY ASSEMBLER) Component Value Ref Range Test Analysis Performed Pathologis t Method Time At Signature Ventricular Rate 178 BPM RADIOLOGY RESULTS Atrial Rate 197 BPM RADIOLOGY RESULTS QRS Duration 100 ms RADIOLOGY RESULTS QT 274 ms RADIOLOGY RESULTS QTc 471 ms RADIOLOGY RESULTS R AXIS -2 degrees RADIOLOGY RESULTS T [place] -154 degrees RADIOLOGY RESULTS Interpretation AGE AND [...] / Volume Laterality 03/14/2009 1:21 AM 9 TOY ASSEMBLER 10:47 AM TOY ASSEMBLER Transcripton Interface ECG ORDERABLES Performing Organization Address City/State/ZIP Code Phon e Number RADIOLOGY RESULTS documented in this encounter Visit Diagnoses Not on filedocumented in this encounter Additional Health Concerns Infection Onset Date Last Indicated Resolved Time MRSA-Contact IsolationComment: 0 04/26/2021 11:03 AM TOY ASSEMBLER Infection erroneous documented as of this encounter
--- OUTSIDE RECORDS SUMMARY | 2022-03-26 21:36 | XMS_ITS | Encounter Summary ---
:1960 Author Organization [place] Address [address] [place] [address] Care Team Providers Name Role Phone Unavailable Primary Care Provider Unavailable Encounter Details Date Type Department Care Team Description 03/18/2009 Results Only [facility] Liam Traylor MD Hospital Results [address] [place], [place] [address] (Wo rk) Social History [...] Procedure Name Priority Date/Time Associated Diagnosis Comme [facility] CHEST ONE VIEW Routine 03/18/2009 5:25 AM Resu lts for this LENS BLOCK GAUGER procedure are i n the results section. documented in this encounter Results CHEST X-RAY 1 VW (03/18/2009 5:25 AM LENS BLOCK GAUGER) Anatomical Region Laterality Modality Other Specimen (Source) Anatomical Collection Method Collection Time Re ceived Time Location / / Volume Laterality 03/18/2009 5:25 AM LENS BLOCK GAUGER Impressions 03/18/2009 2:37 PM LENS BLOCK GAUGER PORTAL AP SUPINE CHEST March 18, 2009 [...] MRSA-Contact IsolationComment: 0 04/26/2021 11:03 AM LENS BLOCK GAUGER Infection erroneous documented as of this encounter
--- OUTSIDE RECORDS SUMMARY | 2022-03-26 21:36 | XMS_ITS | Encounter Summary ---
:1960 Author Organization [place] Address [address] [place] [address] Care Team Providers Name Role Phone Unavailable Primary Care Provider Unavailable Encounter Details Date Type Department Care Team Description 03/17/2009 Historic Results [facility]Gianni Church MD Hospitalists [address] [place], [place] [address] (Wo rk) Social History [...] 03/17/2009 8:24 PM Resul ts for this REVENUE STAMP CUTTER procedure are i n the results section. GLUCOSE BY METER Routine 03/17/2009 4:02 PM Resul ts for this REVENUE STAMP CUTTER procedure are i n the results section. GLUCOSE BY METER Routine 03/17/2009 12:17 PM Resu lts for this REVENUE STAMP CUTTER procedure are i n the results section. GLUCOSE BY METER Routine 03/17/2009 8:10 AM Resul ts for this REVENUE STAMP CUTTER procedure are i n the results section. C DIFFICILE TOXIN A Routine 03/17/2009 5:50 AM Re sults for this AND B (QUEST) REVENUE STAMP CUTTER procedure are in the results section. C DIFFICILE CULTURE Routine 03/17/2009 5:50 AM Re sults for this REVENUE STAMP CUTTER procedure are i n the results section. PHOSPHORUS Routine 03/17/2009 5:25 AM Results f or this REVENUE STAMP CUTTER procedure are i n the results section. MAGNESIUM Routine 03/17/2009 5:25 AM Results f or this REVENUE STAMP CUTTER procedure are i n the results section. HEPATIC FUNCTION Routine 03/17/2009 5:25 AM Resul ts for this PANEL REVENUE STAMP CUTTER procedure are i n the results section. CK TOTAL Routine 03/17/2009 5:25 AM Results f or this REVENUE STAMP CUTTER procedure are i n the results section. BASIC METABOLIC Routine 03/17/2009 5:25 AM Result s for this PANEL REVENUE STAMP CUTTER procedure are i n the results section. CBC WITH PLATELETS Routine 03/17/2009 5:25 AM Res ults for this REVENUE STAMP CUTTER procedure are i n the results section. GLUCOSE BY METER Routine 03/17/2009 4:05 AM Resul ts for this REVENUE STAMP CUTTER procedure are i n the results section. documented in this encounter Results (ABNORMAL) Glucose by meter (03/17/2009 8:24 PM REVENUE STAMP CUTTER) P athologist Signature Glucose 206 (H) 60 - 99 MISYS mg/dL Specimen Anatomical Collection Method Collection Time Receive d Time (Source) Location / / Volume Laterality 03/17/2009 8:24 PM 9 8:40 REVENUE STAMP CUTTER PM REVENUE STAMP CUTTER Kaiden REHMAN - JESICA POCT Performing Organization Address [facility] Phon e Number MISYS (ABNORMAL) Glucose by meter (03/17/2009 4:02 PM REVENUE STAMP CUTTER) athologist Signature Glucose 175 (H) 60 - 99 MISYS mg/dL Specimen Anatomical Collection Method Collection Time Receive d Time (Source) Location / / Volume Laterality 03/17/2009 4:02 PM 9 4:15 REVENUE STAMP CUTTER PM REVENUE STAMP CUTTER Kaiden REHMAN - JESICA POCT Performing Organization Address [facility] Phon e Number MISYS (ABNORMAL) Glucose by meter (03/17/2009 12:17 PM REVENUE STAMP CUTTER) athologist Signature Glucose 163 (H) 60 - 99 MISYS mg/dL Comment: RN/Dr notified Specimen Anatomical Collection Method Collection Time Receive d Time (Source) Location / / Volume Laterality 03/17/2009 12:17 03/17/2009 1:15 PM REVENUE STAMP CUTTER PM REVENUE STAMP CUTTER Kaiden MOONEY POCT Performing Organization Address [facility] Phon e Number MISYS (ABNORMAL) Glucose by meter (03/17/2009 8:10 AM REVENUE STAMP CUTTER) P athologist Signature Glucose 185 (H) 60 - 99 MISYS mg/dL Specimen Anatomical Collection Method Collection Time Receive d Time (Source) Location / / Volume Laterality 03/17/2009 8:10 AM 9 8:16 REVENUE STAMP CUTTER AM REVENUE STAMP CUTTER Kaiden Carpenter MD LAB - BEAKER POCT Performing Organization Address [facility] Phon e Number MISYS C difficile culture (03/17/2009 5:50 AM REVENUE STAMP CUTTER) Patholo gist Method Time Signature Specimen Feces MISYS Descrip C Difficile Light growth MISYS Culture Clostridium difficile Specimen Anatomical Collection Method Collection Time Receive d Time (Source) Location / / Volume Laterality 03/17/2009 5:50 AM 9 5:59 REVENUE STAMP CUTTER AM REVENUE STAMP CUTTER Kaiden Carpenter MD LAB - MICRO GENERAL ORDERABL ES Performing Organization Address [facility] Phon e Number MISYS C difficile toxin A and B (03/17/2009 5:50 AM REVENUE STAMP CUTTER) Patholo gist Method Time Signature Specimen Feces [...] Volume Laterality 03/17/2009 5:50 AM 9 6:10 REVENUE STAMP CUTTER AM REVENUE STAMP CUTTER Kaiden Carpenter MD LAB - BLOOD ORDERABLES Performing Organization Address [facility] Phon e Number MISYS (ABNORMAL) CBC with platelets (03/17/2009 5:25 AM REVENUE STAMP CUTTER) Analysis Performed At Patho logist Time Signature [...] / Volume Laterality 03/17/2009 5:25 AM 9 REVENUE STAMP CUTTER Brian Turner MD LAB - BLOOD ORDERABLES Performing Organization Address City/State/ZIP Code Phon e Number MISYS (ABNORMAL) Basic metabolic panel (03/17/2009 5:25 AM REVENUE STAMP CUTTER) Analysis Performed At Patho logist Time Signature [...] / Volume Laterality 03/17/2009 5:25 AM 9 REVENUE STAMP CUTTER Brian Turner MD LAB - BLOOD ORDERABLES Performing Organization Address City/State/ZIP Code Phon e Number MISYS Magnesium (03/17/2009 5:25 AM REVENUE STAMP CUTTER) P athologist Signature Magnesium 1.6 1.6 - 2.3 MISYS mg/dL Specimen (Source) Anatomical Collection Method Collection Time Re ceived Time Location / / Volume Laterality 03/17/2009 5:25 AM 9 REVENUE STAMP CUTTER Brian Turner MD LAB - BLOOD ORDERABLES Performing Organization Address [facility] Phon e Number MISYS Phosphorus (03/17/2009 5:25 AM REVENUE STAMP CUTTER) athologist Signature Phosphorus 2.7 2.5 - 4.5 MISYS mg/dL Specimen (Source) Anatomical Collection Method Collection Time Re ceived Time Location / / Volume Laterality 03/17/2009 5:25 AM 9 REVENUE STAMP CUTTER Brian Turner MD LAB - BLOOD ORDERABLES Performing Organization Address [facility] Phon e Number MISYS (ABNORMAL) CK total (03/17/2009 5:25 AM REVENUE STAMP CUTTER) athologist Signature CK Total 475 (H) 45 - 300 MISYS U/L Specimen (Source) Anatomical Collection Method Collection Time Re ceived Time Location / / Volume Laterality 03/17/2009 5:25 AM 9 REVENUE STAMP CUTTER Brian Turner MD LAB - BLOOD ORDERABLES Performing Organization Address [facility] Phon e Number MISYS (ABNORMAL) Hepatic panel (03/17/2009 5:25 AM REVENUE STAMP CUTTER) Analysis Performed At Patho logist Time Signature [...] / Volume Laterality 03/17/2009 5:25 AM 9 REVENUE STAMP CUTTER Richard Shirley MD LAB - BLOOD ORDERABLES Performing Organization Address City/State/ZIP Code Phon e Number MISYS (ABNORMAL) Glucose by meter (03/17/2009 4:05 AM REVENUE STAMP CUTTER) P athologist Signature Glucose 203 (H) 60 - 99 MISYS mg/dL Specimen Anatomical Collection Method Collection Time Receive d Time (Source) Location / / Volume Laterality 03/17/2009 4:05 AM 9 8:16 REVENUE STAMP CUTTER AM REVENUE STAMP CUTTER Kaiden Carpenter MD LAB - BEAKER POCT Performing Organization Address City/State/[facility] Code Phon e Number MISYS documented in this encounter Visit Diagnoses Not on filedocumented in this encounter Additional Health Concerns Infection Onset Date Last Indicated Resolved Time MRSA-Contact IsolationComment: 0 04/26/2021 11:03 AM REVENUE STAMP CUTTER Infection erroneous documented as of this encounter
--- OUTSIDE RECORDS SUMMARY | 2022-03-26 21:36 | XMS_ITS | Encounter Summary ---
:1960 Author Organization [facility] Address [address] [place] [address] Care Team Providers Name Role Phone Unavailable Primary Care Provider Unavailable Encounter Details Date Type Department Care Team Description 03/16/2009 Historic Results [facility] Liam Traylor [facility] Hospitalists [address] [place], [place] [address] (Wo rk) Social History [...] Routine 03/16/2009 11:58 Results for this PM MEDICAL SOCIAL CONSULTANT procedure are i n the results section. GLUCOSE BY METER Routine 03/16/2009 8:09 PM Resul ts for this MEDICAL SOCIAL CONSULTANT procedure are i n the results section. ROUTINE UA WITH Routine 03/16/2009 5:10 PM Result s for this MICROSCOPIC MEDICAL SOCIAL CONSULTANT procedure are i n the results section. BLOOD CULTURE STAT 03/16/2009 5:10 PM Results for this MEDICAL SOCIAL CONSULTANT procedure are i n the results section. BLOOD CULTURE STAT 03/16/2009 5:10 PM Results for this MEDICAL SOCIAL CONSULTANT procedure are i n the results section. URINE CULTURE Routine 03/16/2009 5:10 PM Results for this MEDICAL SOCIAL CONSULTANT procedure are i n the results section. GLUCOSE BY METER Routine 03/16/2009 4:17 PM Resul ts for this MEDICAL SOCIAL CONSULTANT procedure are i n the results section. GLUCOSE BY METER Routine 03/16/2009 12:00 Results for this PM MEDICAL SOCIAL CONSULTANT procedure are i n the results section. GLUCOSE BY METER Routine 03/16/2009 7:56 AM Resul ts for this MEDICAL SOCIAL CONSULTANT procedure are i n the results section. CBC WITH PLATELETS & Routine 03/16/2009 6:15 AM R esults for this DIFFERENTIAL MEDICAL SOCIAL CONSULTANT procedure are i n the results section. PROTEIN TOTAL Routine 03/16/2009 6:15 AM Results for this MEDICAL SOCIAL CONSULTANT procedure are i n the results section. PREALBUMIN Routine 03/16/2009 6:15 AM Results f or this MEDICAL SOCIAL CONSULTANT procedure are i n the results section. PHOSPHORUS Routine 03/16/2009 6:15 AM Results f or this MEDICAL SOCIAL CONSULTANT procedure are i n the results section. MAGNESIUM Routine 03/16/2009 6:15 AM Results f or this MEDICAL SOCIAL CONSULTANT procedure are i n the results section. BILIRUBIN TOTAL Routine 03/16/2009 6:15 AM Result s for this MEDICAL SOCIAL CONSULTANT procedure are i n the results section. AST Routine 03/16/2009 6:15 AM Results f or this MEDICAL SOCIAL CONSULTANT procedure are i n the results section. ALT Routine 03/16/2009 6:15 AM Results f or this MEDICAL SOCIAL CONSULTANT procedure are i n the results section. ALKALINE PHOSPHATASE Routine 03/16/2009 6:15 AM R esults for this MEDICAL SOCIAL CONSULTANT procedure are i n the results section. ALBUMIN LEVEL Routine 03/16/2009 6:15 AM Results for this MEDICAL SOCIAL CONSULTANT procedure are i n the results section. BASIC METABOLIC PANEL Routine 03/16/2009 6:15 AM Results for this MEDICAL SOCIAL CONSULTANT procedure are i n the results section. GLUCOSE BY METER Routine 03/16/2009 4:18 AM Resul ts for this MEDICAL SOCIAL CONSULTANT procedure are i n the results section. GLUCOSE BY METER Routine 03/16/2009 12:05 Results for this AM MEDICAL SOCIAL CONSULTANT procedure are i n the results section. documented in this encounter Results (ABNORMAL) Glucose by meter (03/16/2009 11:58 PM MEDICAL SOCIAL CONSULTANT) P athologist Signature Glucose 185 (H) 60 - 99 MISYS mg/dL Specimen Anatomical Collection Method Collection Time Receive d Time (Source) Location / / Volume Laterality 03/16/2009 11:58 03/17/2009 8:15 PM MEDICAL SOCIAL CONSULTANT AM MEDICAL SOCIAL CONSULTANT Kaiden Carpenter MD [facility] POCT Performing Organization Address City/State/ZIP Code Phon e Number MISYS (ABNORMAL) Glucose by meter (03/16/2009 8:09 PM MEDICAL SOCIAL CONSULTANT) P athologist Signature Glucose 160 (H) 60 - 99 MISYS mg/dL Specimen Anatomical Collection Method Collection Time Receive d Time (Source) Location / / Volume Laterality 03/16/2009 8:09 PM 9 MEDICAL SOCIAL CONSULTANT 11:21 PM MEDICAL SOCIAL CONSULTANT Kaiden Carpenter MD LAB - [facility] POCT Performing Organization Address City/State/ZIP Code Phon e Number MISYS (ABNORMAL) Routine UA with microscopic (03/16/2009 5:10 PM MEDICAL SOCIAL CONSULTANT) Component Value Ref Test Analysis Performed At [facility] Range Method Time Signature Source Catheterized MISYS Urine Color Urine Straw MISYS Appearance Urine Clear MISYS Glucose Urine 150 (A) NEG MISYS mg/dL Bilirubin Urine Negative NEG MISYS Ketones Urine 5 (A) NEG MISYS mg/dL Specific [place] 1.008 1.003 - MISYS Urine 1.035 Blood [...] Volume Laterality 03/16/2009 5:10 PM 9 4:53 MEDICAL SOCIAL CONSULTANT PM MEDICAL SOCIAL CONSULTANT Liam Traylor MD LAB - URINE ORDERABLES Performing Organization Address City/[facility]/ZIP Code Phon e Number MISYS Urine culture (03/16/2009 5:10 PM MEDICAL SOCIAL CONSULTANT) Component Value Ref Test Analysis Performed At [facility] Range Method Time Signature Specimen Catheterized MISYS Description Urine Culture Micro 50 to 100,000 MISYS colonies/mL Coagulase negative Staphylococcus Comment: Sent final report to printer on 03.19.09 Micro Report Status FINAL 03/19/2009 MIS YS Specimen Anatomical Collection Method Collection Time Receive d Time (Source) Location / / Volume Laterality 03/16/2009 5:10 PM 9 4:53 MEDICAL SOCIAL CONSULTANT PM MEDICAL SOCIAL CONSULTANT Organism Antibiotic Method Susceptibility 50 to 100,000 [...] MICRO GENERAL ORDERABL ES Performing Organization Address City/[facility] Phon e Number MISYS Blood culture (03/16/2009 5:10 PM MEDICAL SOCIAL CONSULTANT) [facility] [employer] Method Time Signature Specimen PICC MISYS Description Culture Micro No growth MISYS after 6 days Micro Report FINAL MISYS Status [id number] Specimen Anatomical Collection Method Collection Time Receive d Time (Source) Location / / Volume Laterality 03/16/2009 5:10 PM 9 4:54 MEDICAL SOCIAL CONSULTANT PM MEDICAL SOCIAL CONSULTANT Liam Traylor MD LAB - MICRO GENERAL ORDERABL ES Performing Organization Address City/[facility] Phon e Number MISYS Blood culture (03/16/2009 5:10 PM MEDICAL SOCIAL CONSULTANT) [facility] [employer] Method Time Signature Specimen Right Arm MISYS Description Culture Micro No growth MISYS after 6 days Micro Report FINAL MISYS Status [id number] Specimen Anatomical Collection Method Collection Time Receive d Time (Source) Location / / Volume Laterality 03/16/2009 5:10 PM 9 4:54 MEDICAL SOCIAL CONSULTANT PM MEDICAL SOCIAL CONSULTANT Liam Traylor MD LAB - MICRO GENERAL ORDERABL ES Performing Organization Address City/[facility] Phon e Number MISYS (ABNORMAL) Glucose by meter (03/16/2009 4:17 PM MEDICAL SOCIAL CONSULTANT) athologist Signature Glucose 159 (H) 60 - 99 MISYS mg/dL Specimen Anatomical Collection Method Collection Time Receive d Time (Source) Location / / Volume Laterality 03/16/2009 4:17 PM 9 5:25 MEDICAL SOCIAL CONSULTANT PM MEDICAL SOCIAL CONSULTANT Kaiden REHMAN - [place] POCT Performing Organization Address [facility] Phon e Number MISYS (ABNORMAL) Glucose by meter (03/16/2009 12:00 PM MEDICAL SOCIAL CONSULTANT) athologist Signature Glucose 156 (H) 60 - 99 MISYS mg/dL Specimen Anatomical Collection Method Collection Time Receive d Time (Source) Location / / Volume Laterality 03/16/2009 12:00 03/16/2009 PM MEDICAL SOCIAL CONSULTANT 12:20 PM MEDICAL SOCIAL CONSULTANT Kaiden MOONEY POCT Performing Organization Address [facility] Phon e Number MISYS (ABNORMAL) Glucose by meter (03/16/2009 7:56 AM MEDICAL SOCIAL CONSULTANT) athologist Signature Glucose 157 (H) 60 - 99 MISYS mg/dL Specimen Anatomical Collection Method Collection Time Receive d Time (Source) Location / / Volume Laterality 03/16/2009 7:56 AM 9 9:20 MEDICAL SOCIAL CONSULTANT AM MEDICAL SOCIAL CONSULTANT Kaiden MOONEY POCT Performing Organization Address [facility] Phon e Number MISYS (ABNORMAL) Basic metabolic panel (03/16/2009 6:15 AM MEDICAL SOCIAL CONSULTANT) athologist Signature Sodium 136 133 - 144 [...] / Volume Laterality 03/16/2009 6:15 AM 9 MEDICAL SOCIAL CONSULTANT Liam Traylor MD LAB - BLOOD ORDERABLES Performing Organization Address City/State/ZIP Code Phon e Number MISYS (ABNORMAL) CBC with platelets differential (03/16/2009 6:15 AM MEDICAL SOCIAL CONSULTANT) [facility] gist Method Time Signature MCV 93 [...] / Volume Laterality 03/16/2009 6:15 AM 9 MEDICAL SOCIAL CONSULTANT Liam Traylor MD LAB - BLOOD ORDERABLES Performing Organization Address [facility] Phon e Number MISYS Magnesium (03/16/2009 6:15 AM MEDICAL SOCIAL CONSULTANT) athologist Signature Magnesium 1.8 1.6 - 2.3 MISYS mg/dL Comment: Specimen hemolyzed Specimen (Source) Anatomical Collection Method Collection Time Re ceived Time Location / / Volume Laterality 03/16/2009 6:15 AM 9 MEDICAL SOCIAL CONSULTANT Brian Turner MD LAB - BLOOD ORDERABLES Performing Organization Address [facility] Phon e Number MISYS Phosphorus (03/16/2009 6:15 AM MEDICAL SOCIAL CONSULTANT) athologist Signature Phosphorus 3.7 2.5 - 4.5 MISYS mg/dL Comment: Specimen hemolyzed Specimen (Source) Anatomical Collection Method Collection Time Re ceived Time Location / / Volume Laterality 03/16/2009 6:15 AM 9 MEDICAL SOCIAL CONSULTANT Brian Turner MD LAB - BLOOD ORDERABLES Performing Organization Address [facility] Phon e Number MISYS (ABNORMAL) Prealbumin (03/16/2009 6:15 AM MEDICAL SOCIAL CONSULTANT) athologist Signature Prealbumin 10 (L) 15 - 45 MISYS mg/dL Specimen Anatomical Collection Method Collection Time Receive d Time (Source) Location / / Volume Laterality 03/16/2009 6:15 AM 9 1:43 MEDICAL SOCIAL CONSULTANT PM MEDICAL SOCIAL CONSULTANT Liam Traylor MD LAB - BLOOD ORDERABLES Performing Organization Address [facility] Phon e Number MISYS (ABNORMAL) Albumin level (03/16/2009 6:15 AM MEDICAL SOCIAL CONSULTANT) P athologist Signature Albumin 2.9 (L) 3.9 - 5.1 MISYS g/dL Specimen Anatomical Collection Method Collection Time Receive d Time (Source) Location / / Volume Laterality 03/16/2009 6:15 AM 9 2:07 MEDICAL SOCIAL CONSULTANT PM MEDICAL SOCIAL CONSULTANT Liam Traylor MD LAB - BLOOD ORDERABLES Performing Organization Address City/State/ZIP Code Phon e Number MISYS Alkaline phosphatase (03/16/2009 6:15 AM MEDICAL SOCIAL CONSULTANT) P athologist Signature Alkaline 142 40 - 150 MISYS Phosphatase U/L Specimen Anatomical Collection Method Collection Time Receive d Time (Source) Location / / Volume Laterality 03/16/2009 6:15 AM 9 2:07 MEDICAL SOCIAL CONSULTANT PM MEDICAL SOCIAL CONSULTANT Liam Traylor MD LAB - BLOOD ORDERABLES Performing Organization Address City/State/ZIP Code Phon e Number MISYS ALT (03/16/2009 6:15 AM MEDICAL SOCIAL CONSULTANT) P athologist Signature ALT 42 0 - 70 U/L MISYS Specimen Anatomical Collection Method Collection Time Receive d Time (Source) Location / / Volume Laterality 03/16/2009 6:15 AM 9 2:07 MEDICAL SOCIAL CONSULTANT PM MEDICAL SOCIAL CONSULTANT Liam Traylor MD LAB - BLOOD ORDERABLES Performing Organization Address City/[facility]/ZIP Code Phon e Number MISYS (ABNORMAL) AST (03/16/2009 6:15 AM MEDICAL SOCIAL CONSULTANT) P athologist Signature AST 106 (H) 0 - 55 U/L MISYS Specimen Anatomical Collection Method Collection Time Receive d Time (Source) Location / / Volume Laterality 03/16/2009 6:15 AM 9 2:07 MEDICAL SOCIAL CONSULTANT PM MEDICAL SOCIAL CONSULTANT Liam Traylor MD LAB - BLOOD ORDERABLES Performing Organization Address City/[facility]/ZIP Code Phon e Number MISYS Bilirubin total (03/16/2009 6:15 AM MEDICAL SOCIAL CONSULTANT) P athologist Signature Bilirubin Total 1.3 0.2 - 1.3 MISYS mg/dL Specimen Anatomical Collection Method Collection Time Receive d Time (Source) Location / / Volume Laterality 03/16/2009 6:15 AM 9 2:07 MEDICAL SOCIAL CONSULTANT PM MEDICAL SOCIAL CONSULTANT Liam Traylor MD LAB - BLOOD ORDERABLES Performing Organization Address City/State/ZIP Code Phon e Number MISYS (ABNORMAL) Protein total (03/16/2009 6:15 AM MEDICAL SOCIAL CONSULTANT) athologist Signature Protein Total 6.5 (L) 6.8 - 8.8 MISYS g/dL Specimen Anatomical Collection Method Collection Time Receive d Time (Source) Location / / Volume Laterality 03/16/2009 6:15 AM 9 2:07 MEDICAL SOCIAL CONSULTANT PM MEDICAL SOCIAL CONSULTANT Liam Traylor MD LAB - BLOOD ORDERABLES Performing Organization Address City/[email or web address]] Code Phon e Number MISYS (ABNORMAL) Glucose by meter (03/16/2009 4:18 AM MEDICAL SOCIAL CONSULTANT) athologist Signature Glucose 189 (H) 60 - 99 MISYS mg/dL Specimen Anatomical Collection Method Collection Time Receive d Time (Source) Location / / Volume Laterality 03/16/2009 4:18 AM 9 9:20 MEDICAL SOCIAL CONSULTANT AM MEDICAL SOCIAL CONSULTANT Kaiden REHMAN - [place] POCT Performing Organization Address City/[facility] Phon e Number MISYS (ABNORMAL) Glucose by meter (03/16/2009 12:05 AM MEDICAL SOCIAL CONSULTANT) athologist Signature Glucose 187 (H) 60 - 99 MISYS mg/dL Specimen Anatomical Collection Method Collection Time Receive d Time (Source) Location / / Volume Laterality 03/16/2009 12:05 03/16/2009 9:20 AM MEDICAL SOCIAL CONSULTANT AM MEDICAL SOCIAL CONSULTANT Kaiden REHMAN - [place] POCT Performing Organization Address City/[facility] Phon e Number MISYS documented in this encounter Visit Diagnoses Not on filedocumented in this encounter Additional Health Concerns Infection Onset Date Last Indicated Resolved Time MRSA-Contact IsolationComment: 0 04/26/2021 11:03 AM MEDICAL SOCIAL CONSULTANT Infection erroneous documented as of this encounter
--- OUTSIDE RECORDS SUMMARY | 2022-03-26 21:36 | XMS_ITS | Encounter Summary ---
:1960 Author Organization [facility] Address [address] [place] [id number] Care Team Providers Name Role Phone Unavailable Primary Care Provider Unavailable Encounter Details Date Type Department Care Team Description 03/17/2009 Historic Notes INTERFACED REPORT Deep Alston MD [address] [place], [place] [phone] (Wo rk) Social History [...] above. Stable. On vent. Vent mgmt per manager call center. Check daily cxr while on vent. More [...] Time MRSA-Contact IsolationComment: 0 04/26/2021 11:03 AM CORE DRILLER Infection erroneous documented as of this encounter
--- OUTSIDE RECORDS SUMMARY | 2022-03-26 21:36 | XMS_ITS | Encounter Summary ---
:1960 Author Organization [facility] Address [address] [place] [id number] Care Team Providers Name Role Phone Unavailable Primary Care Provider Unavailable Encounter Details Date Type Department Care Team Description 03/17/2009 Historic Notes INTERFACED REPORT Xu Wyatt MD [address] [facility] [address] [place], [place] [phone] (Wo rk) Social History Tobacco Use Types [...] 475 K: 2.9, Na 141, Bicarb 37, Pathology Secretary 2.2, WBC 6.3 A/P: Acute renal failure: resolving. Now with alkalosis. Folloow Na closely. May need to switch to 1/2 NS if Na increases. Respitratory failure: Pt much more awake today. Hold dexmetatomidine, Pt on cpap trial now: will evaluate for extubation Malnutrition: TFs Hypokalemia, Hypomagnesemia: replace GB [phone] [Signature] Author: BRIAN WYATT) [Signed 08:48] documented in this encounter Plan of Treatment Not on filedocumented as of this encounter Visit Diagnoses Not on filedocumented in this encounter Additional Health Concerns Infection Onset Date Last Indicated Resolved Time MRSA-Contact IsolationComment: 0 04/26/2021 11:03 AM DIVISION TOLL WIRE CHIEF Infection erroneous documented as of this encounter
--- OUTSIDE RECORDS SUMMARY | 2022-03-26 21:36 | XMS_ITS | Encounter Summary ---
:1960 Author Organization [facility] Address [address] [place] [id number] Care Team Providers Name Role Phone Unavailable Primary Care Provider Unavailable Encounter Details Date Type Department Care Team Description 03/19/2009 Historic Results [facility]ianni Church MD Hospitalists [address] [place], [place] [phone] (Wo rk) Social History [...] 03/19/2009 10:05 PM Resu lts for this CIRCLE SAW OPERATOR procedure are i n the results section. GLUCOSE BY METER Routine 03/19/2009 6:26 PM Resul ts for this CIRCLE SAW OPERATOR procedure are i n the results section. GLUCOSE BY METER Routine 03/19/2009 11:57 AM Resu lts for this CIRCLE SAW OPERATOR procedure are i n the results section. GLUCOSE BY METER Routine 03/19/2009 8:21 AM Resul ts for this CIRCLE SAW OPERATOR procedure are i n the results section. PHOSPHORUS Routine 03/19/2009 6:20 AM Results f or this CIRCLE SAW OPERATOR procedure are i n the results section. MAGNESIUM Routine 03/19/2009 6:20 AM Results f or this CIRCLE SAW OPERATOR procedure are i n the results section. BASIC METABOLIC Routine 03/19/2009 6:20 AM Result s for this PANEL CIRCLE SAW OPERATOR procedure are i n the results section. CBC WITH PLATELETS Routine 03/19/2009 6:20 AM Res ults for this CIRCLE SAW OPERATOR procedure are i n the results section. C DIFFICILE TOXIN A Routine 03/19/2009 6:10 AM Re sults for this AND B (QUEST) CIRCLE SAW OPERATOR procedure are in the results section. C DIFFICILE CULTURE Routine 03/19/2009 6:10 AM Re sults for this CIRCLE SAW OPERATOR procedure are i n the results section. GLUCOSE BY METER Routine 03/19/2009 3:59 AM Resul ts for this CIRCLE SAW OPERATOR procedure are i n the results section. GLUCOSE BY METER Routine 03/19/2009 12:37 AM Resu lts for this CIRCLE SAW OPERATOR procedure are i n the results section. documented in this encounter Results (ABNORMAL) Glucose by meter (03/19/2009 10:05 PM CIRCLE SAW OPERATOR) P athologist Signature Glucose 145 (H) 60 - 99 MISYS mg/dL Specimen Anatomical Collection Method Collection Time Receive d Time (Source) Location / / Volume Laterality 03/19/2009 10:05 03/19/2009 PM CIRCLE SAW OPERATOR 10:11 PM CIRCLE SAW OPERATOR Kaiden REHMAN - [place] POCT Performing Organization Address City/[facility] Phon e Number MISYS (ABNORMAL) Glucose by meter (03/19/2009 6:26 PM CIRCLE SAW OPERATOR) P athologist Signature Glucose 157 (H) 60 - 99 MISYS mg/dL Specimen Anatomical Collection Method Collection Time Receive d Time (Source) Location / / Volume Laterality 03/19/2009 6:26 PM 9 8:55 CIRCLE SAW OPERATOR PM CIRCLE SAW OPERATOR Kaiden REHMAN - [place] POCT Performing Organization Address [facility] Phon e Number MISYS (ABNORMAL) Glucose by meter (03/19/2009 11:57 AM CIRCLE SAW OPERATOR) P athologist Signature Glucose 214 (H) 60 - 99 MISYS mg/dL Comment: RN/Dr notified Specimen Anatomical Collection Method Collection Time Receive d Time (Source) Location / / Volume Laterality 03/19/2009 11:57 03/19/2009 5:26 AM CIRCLE SAW OPERATOR PM CIRCLE SAW OPERATOR Kaiden Carpenter MD LAB - [place] POCT Performing Organization Address [facility] Phon e Number MISYS (ABNORMAL) Glucose by meter (03/19/2009 8:21 AM CIRCLE SAW OPERATOR) P athologist Signature Glucose 176 (H) 60 - 99 MISYS mg/dL Comment: RN/Dr notified Specimen Anatomical Collection Method Collection Time Receive d Time (Source) Location / / Volume Laterality 03/19/2009 8:21 AM 9 5:25 CIRCLE SAW OPERATOR PM CIRCLE SAW OPERATOR Kaiden Carpenter MD LAB - [place] POCT Performing Organization Address City/State/ZIP Code Phon e Number MISYS (ABNORMAL) Basic metabolic panel (03/19/2009 6:20 AM CIRCLE SAW OPERATOR) Analysis Performed At Patho logist Time Signature [...] / Volume Laterality 03/19/2009 6:20 AM 9 CIRCLE SAW OPERATOR Brian Turner MD LAB - BLOOD ORDERABLES Performing Organization Address City/State/ZIP Code Phon e Number MISYS (ABNORMAL) Magnesium (03/19/2009 6:20 AM CIRCLE SAW OPERATOR) athologist Signature Magnesium 1.3 (L) 1.6 - 2.3 MISYS mg/dL Specimen (Source) Anatomical Collection Method Collection Time Re ceived Time Location / / Volume Laterality 03/19/2009 6:20 AM 9 CIRCLE SAW OPERATOR Brian Turner MD LAB - BLOOD ORDERABLES Performing Organization Address City/State/ZIP Code Phon e Number MISYS Phosphorus (03/19/2009 6:20 AM CIRCLE SAW OPERATOR) P athologist Signature Phosphorus 2.5 2.5 - 4.5 MISYS mg/dL Specimen (Source) Anatomical Collection Method Collection Time Re ceived Time Location / / Volume Laterality 03/19/2009 6:20 AM 9 CIRCLE SAW OPERATOR Brian Turner MD LAB - BLOOD ORDERABLES Performing Organization Address City/State/ZIP Code Phon e Number MISYS (ABNORMAL) CBC with platelets (03/19/2009 6:20 AM CIRCLE SAW OPERATOR) Analysis Performed At Patho logist Time Signature [...] / Volume Laterality 03/19/2009 6:20 AM 9 CIRCLE SAW OPERATOR Brian Turner MD LAB - BLOOD ORDERABLES Performing Organization Address City/State/ZIP Code Phon e Number MISYS C difficile culture (03/19/2009 6:10 AM CIRCLE SAW OPERATOR) [facility] Method Time Signature Specimen Feces MISYS Descrip C Difficile No Clostridium MISYS Culture difficile isolated Specimen Anatomical Collection Method Collection Time Receive d Time (Source) Location / / Volume Laterality 03/19/2009 6:10 AM 9 6:14 CIRCLE SAW OPERATOR AM CIRCLE SAW OPERATOR Kaiden Carpenter MD LAB - MICRO GENERAL ORDERABL ES Performing Organization Address City/State/ZIP Code Phon e Number MISYS C difficile toxin A and B (03/19/2009 6:10 AM CIRCLE SAW OPERATOR) [facility] Method Time Signature Specimen Feces MISYS Description [...] / Volume Laterality 03/19/2009 6:10 AM 6:14 CIRCLE SAW OPERATOR AM CIRCLE SAW OPERATOR Kaiden Carpenter MD LAB - BLOOD ORDERABLES Performing Organization Address City/[facility] Phon e Number MISYS (ABNORMAL) Glucose by meter (03/19/2009 3:59 AM CIRCLE SAW OPERATOR) P athologist Signature Glucose 166 (H) 60 - 99 MISYS mg/dL Specimen Anatomical Collection Method Collection Time Receive d Time (Source) Location / / Volume Laterality 03/19/2009 3:59 AM 9 5:25 CIRCLE SAW OPERATOR PM CIRCLE SAW OPERATOR Kaiden REHMAN - [place]JA[place] POCT Performing Organization Address [facility] Phon e Number MISYS (ABNORMAL) Glucose by meter (03/19/2009 12:37 AM CIRCLE SAW OPERATOR) P athologist Signature Glucose 174 (H) 60 - 99 MISYS mg/dL Specimen Anatomical Collection Method Collection Time Receive d Time (Source) Location / / Volume Laterality 03/19/2009 12:37 03/19/2009 5:25 AM CIRCLE SAW OPERATOR PM CIRCLE SAW OPERATOR Kaiden MOONEY POCT Performing Organization Address [facility] Phon e Number MISYS documented in this encounter Visit Diagnoses Not on filedocumented in this encounter Additional Health Concerns Infection Onset Date Last Indicated Resolved Time MRSA-Contact IsolationComment: 0 04/26/2021 11:03 AM CIRCLE SAW OPERATOR Infection erroneous documented as of this encounter
--- OUTSIDE RECORDS SUMMARY | 2022-03-26 21:36 | XMS_ITS | Encounter Summary ---
:1960 Author Organization [place] Address [address] [place] [address] Care Team Providers Name Role Phone Unavailable Primary Care Provider Unavailable Encounter Details Date Type Department Care Team Description 03/16/[address] [facility] Liam Traylor MD Hospital Results [address] [place], [place] [address] (Wo rk) Social History [...] Procedure Name Priority Date/Time Associated Diagnosis [facility] CHEST ONE VIEW Routine 03/16/2009 4:50 AM Resu lts for this COOK HOUSE SUPERVISOR procedure are i n the results section. documented in this encounter Results CHEST X-RAY 1 VW (03/16/2009 4:50 AM COOK HOUSE SUPERVISOR) Anatomical Region Laterality Modality Other Specimen (Source) Anatomical Collection Method Collection Time Re ceived Time Location / / Volume Laterality 03/16/2009 4:50 AM COOK HOUSE SUPERVISOR Impressions 03/16/2009 9:53 AM COOK HOUSE SUPERVISOR CHEST 1VIEW PORTABLE Mar 16, 2009 4:50:0 [...] MRSA-Contact IsolationComment: 0 04/26/2021 11:03 AM COOK HOUSE SUPERVISOR Infection erroneous documented as of this encounter
--- OUTSIDE RECORDS SUMMARY | 2022-03-26 21:36 | XMS_ITS | Encounter Summary ---
:1960 Author Organization [place] Address [address] [place] [address] Care Team Providers Name Role Phone Unavailable Primary Care Provider Unavailable Encounter Details Date Type Department Care Team Description 03/16/2009 Historic Notes INTERFACED REPORT Xu Wyatt MD [address] [facility] [address] [place] [address] (Wo rk) Social History Tobacco [...] to pain, intubated A/P: Renal failure, nonoliguric, Nurse Discharge improving. Doubt that we will need dialysis today. Decrease IV rate Hypomagnesemia: replace Resp failure: not ready to extubate yet due to MS EtOH withdrawal. Continue dexmetatomidine, decrease ativan Malnutrition: Begin TFs via NG Hypokalemia: replace 45 min ICU time GB [phone] [Signature] Author: BRIAN WYATT) [Signed 09:09] documented in this encounter Plan of Treatment Not on filedocumented as of this encounter Visit Diagnoses Not on filedocumented in this encounter Additional Health Concerns Infection Onset Date Last Indicated Resolved Time MRSA-Contact IsolationComment: 0 04/26/2021 11:03 AM BMW SERVICE TECHNICIAN Infection erroneous documented as of this encounter
--- OUTSIDE RECORDS SUMMARY | 2022-03-26 21:36 | XMS_ITS | Encounter Summary ---
:1960 Author Organization [place] Address [address] [place] [address] Care Team Providers Name Role Phone Unavailable Primary Care Provider Unavailable Encounter Details Date Type Department Care Team Description 03/18/2009 Historic Notes INTERFACED REPORT Deep Alston MD [address] [place], [place] [address] (Wo rk) Social History [...] Time MRSA-Contact IsolationComment: 0 04/26/2021 11:03 AM HAND TUBE BENDER Infection erroneous documented as of this encounter
--- OUTSIDE RECORDS SUMMARY | 2022-03-26 21:37 | XMS_ITS | Encounter Summary ---
:1960 Author Organization [place] Address [address] [place] [address] Care Team Providers Name Role Phone Unavailable Primary Care Provider Unavailable Encounter Details Date Type Department Care Team Description 07/18/[address] [facility] Yrn Voss, [facility] [address] [place], [place] [address] [id number] [address] [place] [address] (Wo rk) Social History Tobacco Use Types [...] Time MRSA-Contact IsolationComment: 0 04/26/2021 11:03 AM BIOINFORMATICS PROGRAMMER Infection erroneous documented as of this encounter
--- OUTSIDE RECORDS SUMMARY | 2022-03-26 21:37 | XMS_ITS | Encounter Summary ---
:1960 Author Organization [place] Address [address] [place] [address] Care Team Providers Name Role Phone Unavailable Primary Care Provider Unavailable Encounter Details Date Type Department Care Team Description 09/08/2008 Emergency room [facility] [place], Hospital Results EMERGENCY PHYSIC CARMEN MCKOY [address] [place], [place] [address] (Wo rk) Social History [...] He was seen by a chemical dependency nut tightener, he was felt to be a vulnerable [...] ROSHNI#[id number] Name: ELIJAH BROWN MRN: [id number] Account: [id number] : 1960 Visit Date: 09/08/2008 Document: [id number] documented in this encounter Plan of Treatment Not on filedocumented as of this encounter Visit Diagnoses Not on filedocumented in this encounter Additional Health Concerns Infection Onset Date Last Indicated Resolved Time MRSA-Contact IsolationComment: 0 04/26/2021 11:03 AM TROUBLE SHOOTING MECHANIC Infection erroneous documented as of this encounter
--- OUTSIDE RECORDS SUMMARY | 2022-03-26 21:37 | XMS_ITS | Encounter Summary ---
:1960 Author Organization [place] Address [address] [place] [address] Care Team Providers Name Role Phone Unavailable Primary Care Provider Unavailable Encounter Details Date Type Department Care Team Description 09/19/2008 Historic Results [facility] Heart Unknown, Doct or, Clinic [address] [place] [address] Social History Tobacco Use Types Packs/Day Years [...] GEMMS Historical Results (09/19/2008 12:00 AM CDT) [facility] gist Method Time Signature Triglycerides 131 0 [...] Time MRSA-Contact IsolationComment: 0 04/26/2021 11:03 AM HYDRO TECHNICIAN Infection erroneous documented as of this encounter
--- OUTSIDE RECORDS SUMMARY | 2022-03-26 21:37 | XMS_ITS | Encounter Summary ---
:1960 Author Organization [place] Address [address] [place] [address] Care Team Providers Name Role Phone Unavailable Primary Care Provider Unavailable Encounter Details Date Type Department Care Team Description 07/17/2008 Historic Results [facility] Yrn Voss, [facility] [address] [place], [place] [address] [phone] [address] [place] [address] (Wo rk) Social History Tobacco Use Types [...] Component Value Ref Test Analysis Performed At [facility] Primordial Genetics Range Method Time Signature Source Unspecified MISYS Urine Color Urine Yellow MISYS Appearance Urine Clear MISYS Glucose Urine Negative NEG MISYS mg/dL Bilirubin Urine Negative NEG MISYS Ketones Urine Negative NEG MISYS mg/dL Specific Leland 1.014 1.003 - MISYS Urine 1.035 Blood [...] LAB - URINE ORDERABLES Performing Organization Address City/[facility]/ZIP Code Phon e Number MISYS Urine culture (07/17/2008 12:45 PM CDT) [facility] gist Method Time Signature Specimen Unspecified [...] LAB - BLOOD ORDERABLES Performing Organization Address City/[facility]/ZIP Code Phon e Number MISYS Alcohol ethyl (07/17/2008 7:05 AM CDT) P athologist Signature Ethanol g/dL <0.01 0.01 g/dL MISYS Specimen (Source) Anatomical Collection Method Collection Time Re ceived Time Location / / Volume Laterality 07/17/2008 7:05 AM 9 CDT Gila Voss MD LAB - BLOOD ORDERABLES Performing Organization Address [facility] Phon e Number MISYS (ABNORMAL) Magnesium (07/17/2008 7:05 AM CDT) P athologist Signature Magnesium 1.2 (L) 1.6 - 2.3 MISYS mg/dL Specimen (Source) Anatomical Collection Method Collection Time Re ceived Time Location / / Volume Laterality 07/17/2008 7:05 AM 9 CDT Gila Voss MD LAB - BLOOD ORDERABLES Performing Organization Address [facility] Phon e Number MISYS documented in this encounter Visit Diagnoses Not on filedocumented in this encounter Additional Health Concerns Infection Onset Date Last Indicated Resolved Time MRSA-Contact IsolationComment: 0 04/26/2021 11:03 AM BALANCE ENGINEER Infection erroneous documented as of this encounter
--- OUTSIDE RECORDS SUMMARY | 2022-03-26 21:37 | XMS_ITS | Encounter Summary ---
:1960 Author Organization [place] Address [address] [place] [address] Care Team Providers Name Role Phone Unavailable Primary Care Provider Unavailable Encounter Details Date Type Department Care Team Description 09/15/2008 Results Only [facility] Adriane, Andrea de luna, Hospital [place] [address] Social History Tobacco Use Types Packs/Day Years Used Date Smoking Tobacco: Never Alcohol Use Standard Drinks/Week Comments Yes 0 (1 standard drink = 0.6 oz pure alcoho l) socially approx 5 drinks/wk Sex Assigned at Date Recorded Not on file documented as of this encounter Plan of Treatment Not on filedocumented as of this encounter Procedures Procedure Name Priority Date/Time Associated Diagnosis [facility] RT X-RAY FOOT Routine 09/15/2008 4:48 [...] Time MRSA-Contact IsolationComment: 0 04/26/2021 11:03 AM TANDEM MILL ROLLER Infection erroneous documented as of this encounter
--- OUTSIDE RECORDS SUMMARY | 2022-03-26 21:37 | XMS_ITS | Encounter Summary ---
:1960 Author Organization [place] Address [address] [place] [address] Care Team Providers Name Role Phone No Ref-Primary, Physician Primary Care Provider [phone] Encounter Details Date Type Department Care Team Description 07/16/2008 Historic Results [facility] Heart Unknown, [facility] ider [address] [place] [address] Social History Tobacco Use Types [...] MRSA-Contact IsolationComment: 0 04/26/2021 11:03 AM OIL BURNER TECHNICIAN Infection erroneous documented as of this encounter Care Teams Correctional Classification Counselor Relationship Specialty Start Date End Date No Ref-Primary, Physician PCP - General 07/03/14 12/03/21 documented as of this encounter
--- OUTSIDE RECORDS SUMMARY | 2022-03-26 21:37 | XMS_ITS | Encounter Summary ---
:1960 Author Organization [place] Address [address] [place] [address] Care Team Providers Name Role Phone Unavailable Primary Care Provider Unavailable Encounter Details Date Type Department Care Team Description 07/16/2008 Historic Results [facility] Nany Austin Dry Prong MD Fina [address] [place], [place] CLINIC [address] [phone] [place], [place] [address] (Wo rk) Social History [...] (07/16/2008 6:55 AM CDT) Analysis Performed At [facility] Time Signature MCV 97 78 - [...] (07/16/2008 6:55 AM CDT) Analysis Performed At [facility] Time Signature Sodium 141 133 - [...] - BLOOD ORDERABLES Performing Organization Address City/[facility] Phon e Number MISYS Blood smear morphology (07/16/2008 6:55 AM CDT) [facility] [employer] Method Time Signature Blood See MISYS Morphology Pathologist Smear 's Report Specimen (Source) Anatomical Collection Method Collection Time Re ceived Time Location / / Volume Laterality 07/16/2008 6:55 AM 9 CDT Amna Austin MD LAB - BLOOD ORDERABLES Performing Organization Address [facility] Phon e Number MISYS (ABNORMAL) Differential (07/16/2008 6:55 AM CDT) [facility] [employer] Method Time Signature % Neutrophils 61 40 [...] BLOOD ORDERABLES Performing Organization Address [facility] Phon e Number MISYS (ABNORMAL) Reticulocyte count [...] Component Value Ref Test Analysis Performed At [facility] gist Range Method Time Signature Copath CASE: [id number] ^ COPATH Report Patient Name: ELIJAH BROWN MR#: [id number] Specimen #: [id number] Collected: 07/16/2008 Received: 07/16/2008 Reported: 07/16/2008 11:00 [...] equired. JOSE RAMONK/kalina 07-16-08 TESTING LAB LOCATION: [facility] [address] [id number] COLLECTION SITE: Client: ??[facility] Location: ??MS3 (R) Specimen (Source) Anatomical Collection [...] MRSA-Contact IsolationComment: 0 04/26/2021 11:03 AM PRODUCTION SORTER Infection erroneous documented as of this encounter
--- OUTSIDE RECORDS SUMMARY | 2022-03-26 21:37 | XMS_ITS | Encounter Summary ---
:1960 Author Organization [place] Address [address] [place] [address] Care Team Providers Name Role Phone Unavailable Primary Care Provider Unavailable Encounter Details Date Type Department Care Team Description 03/13/2009 Admission H&P M [facility] Kaiden Weaver (Bulb Inspector) [facility] MD Ranjit Results [address] [place] [address] (Wo rk) Social History Tobacco Use Types Packs/Day Years Used Date Smoking Tobacco: Never Alcohol Use Standard Drinks/Week Comments Yes 0 (1 standard drink = 0.6 oz pure alcoho l) socially approx 5 drinks/wk Sex Assigned at Date Recorded Not on file documented as of this encounter Progress Notes Kaiden Weaver - 03/14/2009 7:20 AM FINANCIAL QUANTITATIVE ANALYST FINAL CHIEF COMPLAINT: Generalized weakness. HISTORY OF [...] requested and he was evaluated by a vibrator operator. The patient was started on IV fluid [...] oxygen saturation 99% on assisted control. HEENT: [place] conjunctivae, nonicteric sclerae. Atraumatic, normocephalic. NECK: Supple. [...] ROSHNI#[id number] Name: ELIJAH BROWN MRN: [id number] Account: [id number] : 1960 Admitted: [id number] Document: [id number] NCIAL QUANTITATIVE ANALYST documented in this encounter Plan of Treatment Not on filedocumented as of this encounter Visit Diagnoses Not on filedocumented in this encounter Additional Health Concerns Infection Onset Date Last Indicated Resolved Time MRSA-Contact IsolationComment: 0 04/26/2021 11:03 AM FINANCIAL QUANTITATIVE ANALYST Infection erroneous documented as of this encounter
--- OUTSIDE RECORDS SUMMARY | 2022-03-26 21:37 | XMS_ITS | Encounter Summary ---
:1960 Author Organization [place] Address [address] [place] [address] Care Team Providers Name Role Phone Unavailable Primary Care Provider Unavailable Encounter Details Date Type Department Care Team Description 09/08/2008 Historic Results INTERFACED REPORT Marie Orozco MD EMERGENCY PHYSIC IARACHEL MCKOY [address] [place], [place] [address] (Wo rk) Social History [...] (FL, RH, SH) (09/08/2008 6:48 PM CDT) [facility] Method Time Signature Amphetamine Qual Negative [...] with platelets differential (09/08/2008 6:40 PM CDT) [facility] gist Method Time Signature MCV 99 78 [...] MRSA-Contact IsolationComment: 0 04/26/2021 11:03 AM RADIO OPERATOR GROUND Infection erroneous documented as of this encounter
--- OUTSIDE RECORDS SUMMARY | 2022-03-26 21:37 | XMS_ITS | Encounter Summary ---
:1960 Author Organization [place] Address [address] [place] [address] Care Team Providers Name Role Phone Unavailable Primary Care Provider Unavailable Encounter Details Date Type Department Care Team Description 09/15/2008 Historic Results INTERFACED REPORT Jace Forrest MD [place] [address] Social History Tobacco Use Types Packs/Day Years [...] with platelets differential (09/15/2008 4:18 PM CDT) [facility] Method Time Signature MCV 100 78 [...] - BLOOD ORDERABLES Performing Organization Address City/[facility] Phon e Number MISYS (ABNORMAL) Comprehensive [...] - BLOOD ORDERABLES Performing Organization Address City/[facility] Phon e Number MISYS documented in this encounter Visit Diagnoses Not on filedocumented in this encounter Additional Health Concerns Infection Onset Date Last Indicated Resolved Time MRSA-Contact IsolationComment: 0 04/26/2021 11:03 AM BURLAP WORKER Infection erroneous documented as of this encounter
--- OUTSIDE RECORDS SUMMARY | 2022-03-26 21:37 | XMS_ITS | Encounter Summary ---
:1960 Author Organization [place] Address [address] [place] [address] Care Team Providers Name Role Phone Unavailable Primary Care Provider Unavailable Encounter Details Date Type Department Care Team Description 09/19/2008 Orders Only [facility] Tristan Egan SIS NOT YET Clinic [place] MD Navin [address] [address] [phone] Social History Tobacco Use Types Packs/Day Years [...] . documented in this encounter Results LDL-CHOLESTEROL [55655.001] (09/19/2008) P athologist Signature LDL Cholesterol 57 mg/dL MISYS Calculated Tristan Egan MD LABORATORY Performing Organization Address City/State/ZIP Code Phon e Number MISYS HDL CHOLESTEROL [92234.000] (09/19/2008) P athologist Signature HDL Cholesterol 43 mg/dL MISYS Tristan Egan MD LABORATORY Performing Organization Address [facility] Code Phon e Number MISYS TRIGLYCERIDES [84262.000] (09/19/2008) P athologist Signature Triglycerides 131 mg/dL MISYS Tristan Egan MD LABORATORY Performing Organization Address [facility] Phon e Number MISYS CHOLESTEROL [40021.000] (09/19/2008) P athologist Signature Cholesterol 126 115 - 199 MISYS mg/dL Tristan Egan MD LABORATORY Performing Organization Address [facility] Phon e Number MISYS documented in this encounter Visit Diagnoses Diagnosis DIAGNOSIS NOT YET DEFINED documented in this encounter Additional Health Concerns Infection Onset Date Last Indicated Resolved Time MRSA-Contact IsolationComment: 0 04/26/2021 11:03 AM TRANSPORTATION LEAD Infection erroneous documented as of this encounter
--- OUTSIDE RECORDS SUMMARY | 2022-03-26 21:37 | XMS_ITS | Encounter Summary ---
:1960 Author Organization [place] Address [address] [place] [address] Care Team Providers Name Role Phone Unavailable Primary Care Provider Unavailable Reason for Visit Reason Comments Arthritis seen in er 09/15/08 for gout, improving Encounter Details Date Type Department Care Team Description 09/18/2008 Office Visit [facility] Julius Welsh MD Gout (Primary Dx); Clinic [place] [address] [address] [place] [address] [place] [phone] (Wo rk) Social History Tobacco Use Types [...] after visit to ER at [facility] for first time dx of gout. He [...] 09/18/2008 8:30 AM CDT >> SAMMI AGUILAR [facility] September 18, 2008 8:32 AM Patient presents with: Arthritis - seen in er 09/15/08 for gout, improving Initial BP 122/78 Ht 5' 8 (1.727 m) Wt 190 lb (86.183 kg) Body mass index is 28.89 kg/(m^2).. BP completed using cuff size large - [place]. Sammi Aguilar, Biomedical Equipment Technician documented in this encounter Plan of Treatment Not on filedocumented as of this encounter Visit Diagnoses Diagnosis Gout - Primary Gout, unspecified ANEMIA NOS Anemia, unspecified documented in this encounter Additional Health Concerns Infection Onset Date Last Indicated Resolved Time MRSA-Contact IsolationComment: 0 04/26/2021 11:03 AM CANDY DEPARTMENT MANAGER Infection erroneous documented as of this encounter
--- OUTSIDE RECORDS SUMMARY | 2022-03-26 21:37 | XMS_ITS | Encounter Summary ---
:1960 Author Organization [place] Address [address] [place] [address] Care Team Providers Name Role Phone Unavailable Primary Care Provider Unavailable Encounter Details Date Type Department Care Team Description 03/14/2009 Historic Results [facility]Gianni Church MD Hospitalists [address] [place], [place] [address] (Wo rk) Social History [...] 03/14/2009 8:03 PM Resul ts for this ANIMAL HERDER procedure are i n the results section. GLUCOSE BY METER Routine 03/14/2009 3:54 PM Resul ts for this ANIMAL HERDER procedure are i n the results section. BLOOD GAS ARTERIAL AND Routine 03/14/2009 11:25 R esults for this OXYHGB AM ANIMAL HERDER procedure are i n the results section. CK TOTAL Timed 03/14/2009 10:50 Results for this AM ANIMAL HERDER procedure are i n the results section. BASIC METABOLIC PANEL Timed 03/14/2009 10:50 Re sults for this AM ANIMAL HERDER procedure are i n the results section. FRACTIONAL EXCRETION OF STAT 03/14/2009 9:00 AM Results for this SODIUM ANIMAL HERDER procedure are i n the results section. GLUCOSE BY METER Routine 03/14/2009 7:51 AM Resul ts for this ANIMAL HERDER procedure are i n the results section. BLOOD GAS ARTERIAL AND STAT 03/14/2009 5:05 AM Results for this OXYHGB ANIMAL HERDER procedure are i n the results section. SEND OUTS MISC TEST Routine 03/14/2009 4:45 AM Re sults for this ANIMAL HERDER procedure are i n the results section. SEND OUTS MISC TEST Routine 03/14/2009 4:45 AM Re sults for this ANIMAL HERDER procedure are i n the results section. STAPH AUREUS Routine 03/14/2009 4:40 AM Results f or this METHICILLIN RESISTANT ANIMAL HERDER proced ure are in PCR (RW) the results section. REFERRAL SENSITIVITY Routine 03/14/2009 4:40 AM R esults for this ANIMAL HERDER procedure are i n the results section. SALICYLATE LEVEL STAT 03/14/2009 4:30 AM Resul ts for this ANIMAL HERDER procedure are i n the results section. PHOSPHORUS Routine 03/14/2009 4:30 AM Results f or this ANIMAL HERDER procedure are i n the results section. MAGNESIUM Routine 03/14/2009 4:30 AM Results f or this ANIMAL HERDER procedure are i n the results section. COMPREHENSIVE METABOLIC Routine 03/14/2009 4:30 AM Results for this PANEL ANIMAL HERDER procedure are i n the results section. ACETAMINOPHEN LEVEL STAT 03/14/2009 4:30 AM Re sults for this ANIMAL HERDER procedure are i n the results section. GLUCOSE BY METER Routine 03/14/2009 4:29 AM Resul ts for this ANIMAL HERDER procedure are i n the results section. BLOOD GAS ARTERIAL AND Routine 03/14/2009 2:50 AM Results for this OXYHGB ANIMAL HERDER procedure are i n the results section. TROPONIN I Routine 03/14/2009 1:49 AM Results f or this ANIMAL HERDER procedure are i n the results section. INR Routine 03/14/2009 1:49 AM Results f or this ANIMAL HERDER procedure are i n the results section. POTASSIUM Routine 03/14/2009 1:49 AM Results f or this ANIMAL HERDER procedure are i n the results section. PARTIAL THROMBOPLASTIN Routine 03/14/2009 1:49 AM Results for this TIME ANIMAL HERDER procedure are i n the results section. MAGNESIUM Routine 03/14/2009 1:49 AM Results f or this ANIMAL HERDER procedure are i n the results section. BASIC METABOLIC PANEL Routine 03/14/2009 1:49 AM Results for this ANIMAL HERDER procedure are i n the results section. BLOOD GAS ARTERIAL AND Routine 03/14/2009 12:32 R esults for this OXYHGB AM ANIMAL HERDER procedure are i n the results section. ROUTINE UA WITH STAT 03/14/2009 12:24 Results for this MICROSCOPIC AM ANIMAL HERDER procedure are i n the results section. documented in this encounter Results (ABNORMAL) Glucose by meter (03/14/2009 8:03 PM ANIMAL HERDER) athologist Signature Glucose 162 (H) 60 - 99 MISYS mg/dL Specimen Anatomical Collection Method Collection Time Receive d Time (Source) Location / / Volume Laterality 03/14/2009 8:03 PM 9 8:20 ANIMAL HERDER PM ANIMAL HERDER Kaiden REHMAN - BEAKER POCT Performing Organization Address City/State/[facility] Code Phon e Number MISYS (ABNORMAL) Glucose by meter (03/14/2009 3:54 PM ANIMAL HERDER) athologist Signature Glucose 152 (H) 60 - 99 MISYS mg/dL Specimen Anatomical Collection Method Collection Time Receive d Time (Source) Location / / Volume Laterality 03/14/2009 3:54 PM 9 4:00 ANIMAL HERDER PM ANIMAL HERDER Kaiden REHMAN - JESICA POCT Performing Organization Address City/[facility] Code Phon e Number MISYS (ABNORMAL) Blood gas arterial and oxyhgb (03/14/2009 11:25 AM ANIMAL HERDER) [facility] gist Method Time Signature pH Arterial [...] Volume Laterality 03/14/2009 11:25 03/14/2009 8:51 AM ANIMAL HERDER AM ANIMAL HERDER Brian Turner MD LAB - BLOOD ORDERABLES Performing Organization Address City/[facility] Phon e Number MISYS (ABNORMAL) CK total (03/14/2009 10:50 AM ANIMAL HERDER) athologist Signature CK Total 1564 (HH) 45 - 300 MISYS U/L Comment: Critical Value called to and read back jessica MEDEIROS IN ICU AT 1133 ON 03/14/09 JAB Specimen Anatomical Collection Method Collection Time Receive d Time (Source) Location / / Volume Laterality 03/14/2009 10:50 03/14/2009 AM ANIMAL HERDER 11:00 AM ANIMAL HERDER Brian Turner MD LAB - BLOOD ORDERABLES Performing Organization Address City/State/ZIP Code Phon e Number MISYS (ABNORMAL) Basic metabolic panel (03/14/2009 10:50 AM ANIMAL HERDER) athologist Signature Sodium 136 133 - 144 [...] / Volume Laterality 03/14/2009 10:50 03/14/2009 AM ANIMAL HERDER 11:00 AM ANIMAL HERDER Brian Turner MD LAB - BLOOD ORDERABLES Performing Organization Address City/State/ZIP Code Phon e Number MISYS Fractional excretion of sodium (03/14/2009 9:00 AM ANIMAL HERDER) P athologist Signature Creatinine Urine 226 mg/dL [...] Volume Laterality 03/14/2009 9:00 AM 9 2:59 ANIMAL HERDER AM ANIMAL HERDER Richard Shirley MD LAB - URINE ORDERABLES Performing Organization Address City/State/ZIP Code Phon e Number MISYS (ABNORMAL) Glucose by meter (03/14/2009 7:51 AM ANIMAL HERDER) athologist Signature Glucose 151 (H) 60 - 99 MISYS mg/dL Specimen Anatomical Collection Method Collection Time Receive d Time (Source) Location / / Volume Laterality 03/14/2009 7:51 AM 9 ANIMAL HERDER 12:50 PM ANIMAL HERDER Kaiden Carpenter MD LAB - BEAKER POCT Performing Organization Address City/State/ZIP Code Phon e Number MISYS (ABNORMAL) Blood gas arterial and oxyhgb (03/14/2009 5:05 AM ANIMAL HERDER) P athologist Signature pH Arterial 7.21 (L) [...] Volume Laterality 03/14/2009 5:05 AM 9 5:09 ANIMAL HERDER AM ANIMAL HERDER Kaiden Carpenter MD LAB - BLOOD ORDERABLES Performing Organization Address [facility] Code Phon e Number MISYS Send outs misc test (03/14/2009 4:45 AM ANIMAL HERDER) [facility] Method Time Signature Test Name VOLATILES MISYS SCREEN Send Outs Whole Blood MISYS Misc Test Specimen Result (Note) MISYS Comment: VOLATILES SCREEN: POSITIVE ACETONE: POSITIVE Volatiles screen includes: acetone, ethy l alcohol, isopropyl alcohol, and methyl alcohol. Normal Range for Send Outs Misc Test Negative MISYS Comment: Assayed at [place] ,[employer] [place] [address] Specimen Anatomical Collection Method Collection Time Receive d Time (Source) Location / / Volume Laterality 03/14/2009 4:45 AM 9 5:01 ANIMAL HERDER AM ANIMAL HERDER Kaiden Carpenter MD LAB - BLOOD ORDERABLES Performing Organization Address [facility] Phon e Number MISYS Send outs misc test (03/14/2009 4:45 AM ANIMAL HERDER) [facility] Method Time Signature Test Name ETHYLENE MISYS GLYCOL Send Outs Misc Whole Blood MISYS Test Specimen Result Negative MISYS Normal Range Negative MISYS for Send Outs Misc Test Comment: Assayed at [place] [place] [id number] Specimen Anatomical Collection Method Collection Time Receive d Time (Source) Location / / Volume Laterality 03/14/2009 4:45 AM 9 5:05 ANIMAL HERDER AM ANIMAL HERDER Kaiden Carpenter MD LAB - BLOOD ORDERABLES Performing Organization Address [facility] Phon e Number MISYS Staph aureus methicillin resistant PCR (03/14/2009 4:40 AM ANIMAL HERDER) [facility] Method Time Signature Specimen Nares MISYS [...] Volume Laterality 03/14/2009 4:40 AM 9 1:10 ANIMAL HERDER AM ANIMAL HERDER Kaiden Carpenter MD LAB - MICRO GENERAL ORDERABL ES Performing Organization Address City/State/ZIP Code Phon e Number MISYS Referral sensitivity (03/14/2009 4:40 AM ANIMAL HERDER) Component Value Ref Test Analysis Performed Pathologis t Range Method Time At Signature Specimen Nares MISYS Description Culture Micro No MRSA isolated: MISYS susceptibilities not available. PCR assay is more sensitive Comment: than culture. Micro Report Status FINAL 03/20/2009 MIS YS Specimen Anatomical Collection Method Collection Time Receive d Time (Source) Location / / Volume Laterality 03/14/2009 4:40 AM 9 3:03 ANIMAL HERDER PM ANIMAL HERDER Kaiden Carpenter MD LAB - MICRO GENERAL ORDERABL ES Performing Organization Address City/State/ZIP Code Phon e Number MISYS (ABNORMAL) Comprehensive metabolic panel (03/14/2009 4:30 AM ANIMAL HERDER) P athologist Signature Sodium 127 (L) 133 [...] Volume Laterality 03/14/2009 4:30 AM 9 2:57 ANIMAL HERDER AM ANIMAL HERDER Richard Shirley MD LAB - BLOOD ORDERABLES Performing Organization Address [facility] Phon e Number MISYS (ABNORMAL) Phosphorus (03/14/2009 4:30 AM ANIMAL HERDER) P athologist Signature Phosphorus 8.4 (H) 2.5 - 4.5 MISYS mg/dL Specimen Anatomical Collection Method Collection Time Receive d Time (Source) Location / / Volume Laterality 03/14/2009 4:30 AM 9 2:57 ANIMAL HERDER AM ANIMAL HERDER Richard Shirley MD LAB - BLOOD ORDERABLES Performing Organization Address [facility] Phon e Number MISYS Magnesium (03/14/2009 4:30 AM ANIMAL HERDER) athologist Signature Magnesium 2.1 1.6 - 2.3 MISYS mg/dL Specimen Anatomical Collection Method Collection Time Receive d Time (Source) Location / / Volume Laterality 03/14/2009 4:30 AM 9 2:57 ANIMAL HERDER AM ANIMAL HERDER Richard Shirley MD LAB - BLOOD ORDERABLES Performing Organization Address [facility] Code Phon e Number MISYS Acetaminophen level (03/14/2009 4:30 AM ANIMAL HERDER) Analysis Performed At Patho logist Time Signature Acetaminophen <10 mg/L MISYS Level Specimen Anatomical Collection Method Collection Time Receive d Time (Source) Location / / Volume Laterality 03/14/2009 4:30 AM 9 2:59 ANIMAL HERDER AM ANIMAL HERDER Richard Shirley MD LAB - BLOOD ORDERABLES Performing Organization Address [facility] Phon e Number MISYS Salicylate level (03/14/2009 4:30 AM ANIMAL HERDER) P athologist Signature Salicylate Level <1 mg/dL MISYS Comment: Therapeutic: ?<20 Anti inflammatory: ??15-30 Specimen Anatomical Collection Method Collection Time Receive d Time (Source) Location / / Volume Laterality 03/14/2009 4:30 AM 9 2:59 ANIMAL HERDER AM ANIMAL HERDER Richard Shirley MD LAB - BLOOD ORDERABLES Performing Organization Address City/[facility] Code Phon e Number MISYS (ABNORMAL) Glucose by meter (03/14/2009 4:29 AM ANIMAL HERDER) P athologist Signature Glucose 156 (H) 60 - 99 MISYS mg/dL Specimen Anatomical Collection Method Collection Time Receive d Time (Source) Location / / Volume Laterality 03/14/2009 4:29 AM 9 ANIMAL HERDER 12:50 PM ANIMAL HERDER Kaiden Carpenter MD LAB - BEAKER POCT Performing Organization Address City/[facility] Code Phon e Number MISYS (ABNORMAL) Blood gas arterial and oxyhgb (03/14/2009 2:50 AM ANIMAL HERDER) Patholo gist Method Time Signature pH Arterial [...] Volume Laterality 03/14/2009 2:50 AM 9 2:38 ANIMAL HERDER AM ANIMAL HERDER Haroldo Arnold MD LAB - BLOOD ORDERABLES Performing Organization Address City/[facility]/ZIP Code Phon e Number MISYS (ABNORMAL) INR (03/14/2009 1:49 AM ANIMAL HERDER) athologist Signature INR 1.19 (H) 0.86 - 1.14 MISYS Specimen Anatomical Collection Method Collection Time Receive d Time (Source) Location / / Volume Laterality 03/14/2009 1:49 AM 9 2:00 ANIMAL HERDER AM ANIMAL HERDER [facility] LAB - BLOOD ORDERABLES Performing Organization Address City/State/[facility] Phon e Number MISYS (ABNORMAL) Potassium (03/14/2009 1:49 AM ANIMAL HERDER) athologist Signature Potassium 6.0 (H) 3.4 - 5.3 MISYS mmol/L Specimen Anatomical Collection Method Collection Time Receive d Time (Source) Location / / Volume Laterality 03/14/2009 1:49 AM 9 2:00 ANIMAL HERDER AM ANIMAL HERDER [facility] LAB - BLOOD ORDERABLES Performing Organization Address [facility] Phon e Number MISYS Partial thromboplastin time (03/14/2009 1:49 AM ANIMAL HERDER) athologist Signature PTT 32 22 - 37 sec MISYS Specimen Anatomical Collection Method Collection Time Receive d Time (Source) Location / / Volume Laterality 03/14/2009 1:49 AM 9 2:00 ANIMAL HERDER AM ANIMAL HERDER Authorizing Provider Result [facility] LAB - BLOOD ORDERABLES Performing Organization Address [facility] Phon e Number MISYS (ABNORMAL) Troponin I (03/14/2009 1:49 AM ANIMAL HERDER) Analysis Performed At Patho logist Time Signature Troponin I ES 0.163 (HH) 0.000 - MISYS 0.034 ug/L Comment: Critical Value called to and read back jessica SLATER (ICU) ON 03.14.09 AT 0246 BY Specimen Anatomical Collection Method Collection Time Receive d Time (Source) Location / / Volume Laterality 03/14/2009 1:49 AM 9 2:19 ANIMAL HERDER AM ANIMAL HERDER Authorizing Provider Result [facility] LAB - BLOOD ORDERABLES Performing Organization Address [facility] Phon e Number MISYS (ABNORMAL) Basic metabolic panel (03/14/2009 1:49 AM ANIMAL HERDER) Patholo gist Method Time Signature Sodium 128 [...] Volume Laterality 03/14/2009 1:49 AM 9 2:20 ANIMAL HERDER AM ANIMAL HERDER [facility] LAB - BLOOD ORDERABLES Performing Organization Address City/[facility] Code Phon e Number MISYS Magnesium (03/14/2009 1:49 AM ANIMAL HERDER) athologist Signature Magnesium 2.3 1.6 - 2.3 MISYS mg/dL Specimen Anatomical Collection Method Collection Time Receive d Time (Source) Location / / Volume Laterality 03/14/2009 1:49 AM 9 2:20 ANIMAL HERDER AM ANIMAL HERDER [facility] LAB - BLOOD ORDERABLES Performing Organization Address City/[facility]/ZIP Code Phon e Number MISYS (ABNORMAL) Blood gas arterial and oxyhgb (03/14/2009 12:32 AM ANIMAL HERDER) [facility] gist Method Time Signature pH Arterial [...] / Volume Laterality 03/14/2009 12:32 03/14/2009 AM ANIMAL HERDER 12:34 AM ANIMAL HERDER Haroldo Arnold MD LAB - BLOOD ORDERABLES Performing Organization Address City/State/ZIP [facility] Phon e Number MISYS (ABNORMAL) Routine UA with microscopic (03/14/2009 12:24 AM ANIMAL HERDER) Component Value Ref Test Analysis Performed At [facility] Range Method Time Signature Source Catheterized MISYS Urine Color Urine Straw MISYS Appearance Urine Slightly Cloudy MISYS Glucose Urine Negative NEG MISYS mg/dL Bilirubin Urine Negative NEG MISYS Ketones Urine 5 (A) NEG MISYS mg/dL Specific [place] 1.017 1.003 - MISYS Urine 1.035 Blood [...] / Volume Laterality 03/14/2009 12:24 03/14/2009 AM ANIMAL HERDER 12:25 AM ANIMAL HERDER Haroldo Arnold MD LAB - URINE ORDERABLES Performing Organization Address [facility] Phon e Number MISYS documented in this encounter Visit Diagnoses Not on filedocumented in this encounter Additional Health Concerns Infection Onset Date Last Indicated Resolved Time MRSA-Contact IsolationComment: 0 04/26/2021 11:03 AM ANIMAL HERDER Infection erroneous documented as of this encounter
--- OUTSIDE RECORDS SUMMARY | 2022-03-26 21:37 | XMS_ITS | Encounter Summary ---
:1960 Author Organization [place] Address [address] [place] [address] Care Team Providers Name Role Phone Unavailable Primary Care Provider Unavailable Encounter Details Date Type Department Care Team Description 07/19/2008 Historic Results [facility] Yrn Voss, [facility] [address] [place], [place] [address] [id number] [address] [place] [address] (Wo rk) Social History Tobacco Use Types [...] MRSA-Contact IsolationComment: 0 04/26/2021 11:03 AM TOY STUFFER Infection erroneous documented as of this encounter
--- OUTSIDE RECORDS SUMMARY | 2022-03-26 21:37 | XMS_ITS | Encounter Summary ---
:1960 Author Organization [place] Address [address] [place] [address] Care Team Providers Name Role Phone Unavailable [...] as of this encounter Progress Notes Interface, Fire Safety Inspector - 07/11/2010 5:59 AM CDT Routine EEG completed on an adult in patient. [facility] has been notified to read. [Signature] Author: Kia Le (Tech) [Signed 16:01] documented in this encounter Plan of Treatment Not on filedocumented as of this encounter Visit Diagnoses Not on filedocumented in this encounter Additional Health Concerns Infection Onset Date Last Indicated Resolved Time MRSA-Contact IsolationComment: 0 04/26/2021 11:03 AM GROOVING LATHE TENDER Infection erroneous documented as of this encounter
--- OUTSIDE RECORDS SUMMARY | 2022-03-26 21:37 | XMS_ITS | Encounter Summary ---
:1960 Author Organization [place] Address [address] [facility] [place] [address] Care Team Providers Name Role Phone Unavailable Primary Care Provider Unavailable Encounter Details Date Type Department Care Team Description 03/14/2009 Operative Report [facility] Jamaal Tyler (Business Services Specialist Sales) [facility] MD Danie Results [facility] [address] [facility] [address] [place] [id number] (Wo rk) Social History Tobacco Use Types Packs/Day Years Used Date Smoking Tobacco: Never Alcohol Use Standard Drinks/Week Comments Yes 0 (1 standard drink = 0.6 oz pure alcoho l) socially approx 5 drinks/wk Sex Assigned at Date Recorded Not on file documented as of this encounter Progress Notes Jamaal Tyler - 03/30/2009 8:06 AM BONE GLUE MAKER FINAL INDICATIONS: Acute renal failure with hyperkalemia and acidosis. PROCEDURE: 1. Placement of Aram dialysis catheter. 2. Hemodialysis. DESCRIPTION OF PROCEDURE: With Elijah Amdaor in a supine position, the left groin [...] EM#[id number] Name: ELIJAH AMADOR MRN: [id number] Account: [id number] : 1960 Procedure Date: 03/14/2009 Document: [id number] GLUE MAKER documented in this encounter Plan of Treatment Not on filedocumented as of this encounter Visit Diagnoses Not on filedocumented in this encounter Additional Health Concerns Infection Onset Date Last Indicated Resolved Time MRSA-Contact IsolationComment: 0 04/26/2021 11:03 AM BONE GLUE MAKER Infection erroneous documented as of this encounter
--- OUTSIDE RECORDS SUMMARY | 2022-03-26 21:37 | XMS_ITS | Encounter Summary ---
:1960 Author Organization [place] Address [address] [place] [address] Care Team Providers Name Role Phone Unavailable Primary Care Provider Unavailable Encounter Details Date Type Department Care Team Description 07/16/2008 Orders Only [facility] Amna Austin DIAGNOS IS NOT YET Clinic [place] MD Fina DEFINED (Primary Dx) [address] [place], [place] CLINIC [address] [phone] [place], [place] [address] Social History Tobacco Use [...] REPORT (07/16/2008) Impressions MISYS - 07/16/2008 CASE: [id number] Patient Name: ELIJAH BROWN MR#: [id number] Specimen #: [id number] Collected: 07/16/2008 Received: 07/16/2008 Reported: 07/16/2008 11:00 [...] seen. There is relative monocytosis, but absol [place] numbers are within normal limits. ??There is [...] is required. KARLEE/kalina /07-16-08 TESTING LAB LOCATION: [address] ??[id number] COLLECTION SITE: Client: ??[facility] Location: ??MS3 (R) Electronically filed by Joan Jessica ??07/17/2008 ??9:06 AM Amna Austin MD LABORATORY Performing Organization Address City/State/ZIP Code Phon e Number MISYS documented in this encounter Visit Diagnoses Diagnosis DIAGNOSIS NOT YET DEFINED - Primary documented in this encounter Additional Health Concerns Infection Onset Date Last Indicated Resolved Time MRSA-Contact IsolationComment: 0 04/26/2021 11:03 AM BOOM MASTER Infection erroneous documented as of this encounter
--- OUTSIDE RECORDS SUMMARY | 2022-03-26 21:37 | XMS_ITS | Encounter Summary ---
:1960 Author Organization [place] Address [address] [place] [address] Care Team Providers Name Role Phone Unavailable [...] as of this encounter Progress Notes Interface, Patrol Mother - 07/11/2010 5:57 AM CDT Patient Status [...] Time MRSA-Contact IsolationComment: 0 04/26/2021 11:03 AM DIESEL POWERPLANT MECHANIC HELPER Infection erroneous documented as of this encounter
--- OUTSIDE RECORDS SUMMARY | 2022-03-26 21:37 | XMS_ITS | Encounter Summary ---
:1960 Author Organization [place] Address [address] [place] [address] Care Team Providers Name Role Phone Unavailable [...] RESULTS Atrial Rate 111 BPM RADIOLOGY RESULTS WI Interval 158 ms RADIOLOGY RESULTS QRS Duration 102 ms RADIOLOGY RESULTS QT 344 ms RADIOLOGY RESULTS QTc 467 ms RADIOLOGY RESULTS P [place] 55 degrees RADIOLOGY RESULTS R AXIS -7 degrees RADIOLOGY RESULTS T [place] 56 degrees RADIOLOGY RESULTS Interpretation AGE AND [...] Time MRSA-Contact IsolationComment: 0 04/26/2021 11:03 AM CHOCOLATE REFINING ROLLER Infection erroneous documented as of this encounter
--- OUTSIDE RECORDS SUMMARY | 2022-03-26 21:37 | XMS_ITS | Encounter Summary ---
:1960 Author Organization [place] Address [address] [place] [address] Care Team Providers Name Role Phone Unavailable Primary Care Provider Unavailable Encounter Details Date Type Department Care Team Description 03/13/2009 Historic Results INTERFACED REPORT [facility] Social History Tobacco Use Types Packs/Day [...] STAT 03/13/2009 11:03 PM Results for this SHOPPING INSPECTOR procedure are i n the results section. N TERMINAL PRO BNP STAT 03/13/2009 11:03 PM Re sults for this OUTPATIENT SHOPPING INSPECTOR procedure are i n the results section. MYOGLOBIN Routine 03/13/2009 11:03 PM Results for this SHOPPING INSPECTOR procedure are i n the results section. MAGNESIUM STAT 03/13/2009 11:03 PM Results for this SHOPPING INSPECTOR procedure are i n the results section. HEPATIC FUNCTION STAT 03/13/2009 11:03 PM Resu lts for this PANEL SHOPPING INSPECTOR procedure are i n the results section. CK TOTAL Routine 03/13/2009 11:03 PM Results for this SHOPPING INSPECTOR procedure are i n the results section. ETHYL ALCOHOL LEVEL STAT 03/13/2009 11:03 PM R esults for this SHOPPING INSPECTOR procedure are i n the results section. BASIC METABOLIC STAT 03/13/2009 11:03 PM Resul ts for this PANEL SHOPPING INSPECTOR procedure are i n the results section. TROPONIN I STAT 03/13/2009 8:58 PM Results f or this SHOPPING INSPECTOR procedure are i n the results section. NT PROBNP INPATIENT Routine 03/13/2009 8:58 PM Re sults for this SHOPPING INSPECTOR procedure are i n the results section. CBC WITH PLATELETS STAT 03/13/2009 8:58 PM Res ults for this SHOPPING INSPECTOR procedure are i n the results section. documented in this encounter Results (ABNORMAL) Hepatic panel (03/13/2009 11:03 PM SHOPPING INSPECTOR) Analysis Performed At Patho logist Time Signature [...] / Volume Laterality 03/13/2009 11:03 03/13/2009 PM SHOPPING INSPECTOR 11:09 PM SHOPPING INSPECTOR Clinic [facility] LAB - BLOOD ORDERABLES Performing Organization Address City/State/ZIP Code Phon e Number MISYS (ABNORMAL) Basic metabolic panel (03/13/2009 11:03 PM SHOPPING INSPECTOR) P athologist Signature Sodium 127 (L) 133 [...] to DIGNA ERB @ 2352 ON BY [facility] Creatinine 18.05 (H) 0.66 - 1.25 mg/dL MISYS Comment: New IDMS-traceable calibration ??rosalva oliver 08/23/07 Results confirmed by repeat test Specimen grossly lipemic Called to DIGNA VIVIANA @ 1152 ON [id number] BY [facility] GFR Estimate Not Calculated >60 mL/min/1.7m2 MISYS GFR Estimate If Black Not Calculated >60 mL/min/1.7m2 MISYS Calcium 8.4 (L) 8.5 - 10.4 mg/dL MISYS Anion Gap 39 (H) 6 - 17 mmol/L MISYS Specimen Anatomical Collection Method Collection Time Receive d Time (Source) Location / / Volume Laterality 03/13/2009 11:03 03/13/2009 PM SHOPPING INSPECTOR 11:09 PM SHOPPING INSPECTOR [facility] LAB - BLOOD ORDERABLES Performing Organization Address City/[facility] Phon e Number MISYS Alcohol ethyl (03/13/2009 11:03 PM SHOPPING INSPECTOR) athologist Signature Ethanol g/dL <0.01 0.01 g/dL MISYS Specimen Anatomical Collection Method Collection Time Receive d Time (Source) Location / / Volume Laterality 03/13/2009 11:03 03/13/2009 PM SHOPPING INSPECTOR 11:09 PM SHOPPING INSPECTOR [facility] LAB - BLOOD ORDERABLES Performing Organization Address [facility] Code Phon e Number MISYS (ABNORMAL) Magnesium (03/13/2009 11:03 PM SHOPPING INSPECTOR) P athologist Signature Magnesium 1.4 (L) 1.6 - 2.3 MISYS mg/dL Specimen Anatomical Collection Method Collection Time Receive d Time (Source) Location / / Volume Laterality 03/13/2009 11:03 03/13/2009 PM SHOPPING INSPECTOR 11:09 PM SHOPPING INSPECTOR [facility] LAB - BLOOD ORDERABLES Performing Organization Address City/[facility] Phon e Number MISYS (ABNORMAL) N terminal pro BNP outpatient (03/13/2009 11:03 PM SHOPPING INSPECTOR) P athologist Signature N-Terminal Pro 5480 (H) [...] / Volume Laterality 03/13/2009 11:03 03/13/2009 PM SHOPPING INSPECTOR 11:09 PM SHOPPING INSPECTOR Authorizing Provider Result [facility] LAB - BLOOD ORDERABLES Performing Organization Address City/[facility] Phon e Number MISYS (ABNORMAL) Troponin I (03/13/2009 11:03 PM SHOPPING INSPECTOR) Analysis Performed At Patho logist Time Signature Troponin I ES 0.189 (HH) 0.000 - MISYS 0.034 ug/L Comment: Called to DIGNA MICHELLE @ 0663 ON [id number] BY [facility] Specimen Anatomical Collection Method Collection Time Receive d Time (Source) Location / / Volume Laterality 03/13/2009 11:03 03/13/2009 PM SHOPPING INSPECTOR 11:09 PM SHOPPING INSPECTOR Authorizing Provider Result [facility] LAB - BLOOD ORDERABLES Performing Organization Address City/[facility] Phon e Number MISYS (ABNORMAL) CK total (03/13/2009 11:03 PM SHOPPING INSPECTOR) P athologist Signature CK Total 2596 (HH) 45 - 300 MISYS U/L Comment: Critical Value called to and read back jessica [email or web address],AR Specimen Anatomical Collection Method Collection Time Receive d Time (Source) Location / / Volume Laterality 03/13/2009 11:03 03/14/2009 1:47 PM SHOPPING INSPECTOR AM SHOPPING INSPECTOR Authorizing Provider Result [facility] LAB - BLOOD ORDERABLES Performing Organization Address City/[facility] Phon e Number MISYS (ABNORMAL) Myoglobin (03/13/2009 11:03 PM SHOPPING INSPECTOR) athologist Signature Myoglobin 8032 (H) <120 ug/L MISYS Specimen Anatomical Collection Method Collection Time Receive d Time (Source) Location / / Volume Laterality 03/13/2009 11:03 03/14/2009 1:47 PM SHOPPING INSPECTOR AM SHOPPING INSPECTOR Authorizing Provider Result [facility] LAB - BLOOD ORDERABLES Performing Organization Address City/[facility]/ZIP Code Phon e Number MISYS (ABNORMAL) CBC with platelets (03/13/2009 8:58 PM SHOPPING INSPECTOR) [facility] Time Signature MCV 95 78 - [...] Volume Laterality 03/13/2009 8:58 PM 9 9:33 SHOPPING INSPECTOR PM SHOPPING INSPECTOR Haroldo Arnold MD LAB - BLOOD ORDERABLES Performing Organization Address [facility]/ZIP Code Phon e Number MISYS Troponin I (03/13/2009 8:58 PM SHOPPING INSPECTOR) [facility] Method Time Signature Troponin I ES Results 0.000 - MISYS questioned - 0.034 new specimen ug/L has been requested Comment: Charge credited NOTIFIED TO DIGNA ON ERB AT 2220 CORRECTED ON 03/13 AT 2317: PREVIOUSLY R EPORTED 0.218 Critical Value called to and read back by DIGNA (ERB) ON 05.13.08 AT 2224 BY [facility] Specimen Anatomical Collection Method Collection Time Receive d Time (Source) Location / / Volume Laterality 03/13/2009 8:58 PM 9 9:33 SHOPPING INSPECTOR PM SHOPPING INSPECTOR Haroldo Arnold MD LAB - BLOOD ORDERABLES Performing Organization Address [facility]/ZIP Code Phon e Number MISYS Nt probnp inpatient (03/13/2009 8:58 PM SHOPPING INSPECTOR) [facility] Method Time Signature N-Terminal Results 0 - [...] / Volume Laterality 03/13/2009 8:58 PM 9 SHOPPING INSPECTOR 10:34 PM SHOPPING INSPECTOR Haroldo Arnold MD LAB - BLOOD ORDERABLES Performing Organization Address City/State/ZIP Code Phon e Number MISYS documented in this encounter Visit Diagnoses Not on filedocumented in this encounter Additional Health Concerns Infection Onset Date Last Indicated Resolved Time MRSA-Contact IsolationComment: 0 04/26/2021 11:03 AM SHOPPING INSPECTOR Infection erroneous documented as of this encounter
--- OUTSIDE RECORDS SUMMARY | 2022-03-26 21:37 | XMS_ITS | Encounter Summary ---
:1960 Author Organization [place] Address [address] [place] [address] Care Team Providers Name Role Phone Unavailable Primary Care Provider Unavailable Encounter Details Date Type Department Care Team Description 07/17/2008 [facility] [address] [place] [address] (Wo rk) Social History Tobacco Use Types [...] Diagnosis Comme [facility] CHEST TWO VIEWS, Routine 07/17/2008 1:44 PM [...] Time MRSA-Contact IsolationComment: 0 04/26/2021 11:03 AM WHISKEY REGAUGER Infection erroneous documented as of this encounter
--- OUTSIDE RECORDS SUMMARY | 2022-03-26 21:37 | XMS_ITS | Encounter Summary ---
:1960 Author Organization [facility] Address [address] [place] [address] Care Team Providers Name Role Phone Unavailable [...] 03/13/2009 9:41 PM Results f or this LOGGING SUPERVISOR procedure are i n the results section . documented in this encounter Results EKG 12 LEAD (03/13/2009 9:41 PM LOGGING SUPERVISOR) Component Value Ref Range Test Analysis Performed Pathologis t Method Time At Signature Ventricular Rate 122 BPM RADIOLOGY RESULTS Atrial Rate 122 BPM RADIOLOGY RESULTS AR Interval 134 ms RADIOLOGY RESULTS QRS Duration 96 ms RADIOLOGY RESULTS QT 290 ms RADIOLOGY RESULTS QTc 413 ms RADIOLOGY RESULTS P [place] 43 degrees RADIOLOGY RESULTS R AXIS 1 degrees RADIOLOGY RESULTS T [place] -2 degrees RADIOLOGY RESULTS Interpretation AGE AND GENDER SPECIFIC ECG ANALYSIS RADIOLOGY ECG Sinus tachycardia RESULTS Otherwise normal ECG Unconfirmed report - interpretation of this ECG is compute r generated - see medical record for final interpretation Specimen Anatomical Collection Method Collection Time Receive d Time (Source) Location / / Volume Laterality 03/13/2009 9:41 PM 9 LOGGING SUPERVISOR 10:45 AM LOGGING SUPERVISOR Transcripton Interface ECG ORDERABLES Performing Organization Address City/State/ZIP Code Phon e Number RADIOLOGY RESULTS documented in this encounter Visit Diagnoses Not on filedocumented in this encounter Additional Health Concerns Infection Onset Date Last Indicated Resolved Time MRSA-Contact IsolationComment: 0 04/26/2021 11:03 AM LOGGING SUPERVISOR Infection erroneous documented as of this encounter
--- OUTSIDE RECORDS SUMMARY | 2022-03-26 21:37 | XMS_ITS | Encounter Summary ---
:1960 Author Organization [facility] Address [address] [place] [address] Care Team Providers Name Role Phone Unavailable Primary Care Provider Unavailable Encounter Details Date Type Department Care Team Description 09/15/2008 Emergency room [facility] Results MD [place] [address] Social History Tobacco Use Types Packs/Day Years Used Date Smoking Tobacco: Never Alcohol Use Standard Drinks/Week Comments Yes 0 (1 standard drink = 0.6 oz pure alcoho l) socially approx 5 drinks/wk Sex Assigned at Date Recorded Not on file documented as of this encounter Progress Notes Interface, Combo Welder - 09/27/2008 2:16 PM CDT FINAL CHIEF [...] SOCIAL HISTORY: 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 He does have ahistory [...] ROSHNI#[id number] Name: ELIJAH AMADOR MRN: [id number] Account: [id number] : 1960 Visit Date: 09/15/2008 Document: [id number] cc: Julius Welsh MD documented in this encounter Plan of Treatment Not on filedocumented as of this encounter Visit Diagnoses Not on filedocumented in this encounter Additional Health Concerns Infection Onset Date Last Indicated Resolved Time MRSA-Contact IsolationComment: 0 04/26/2021 11:03 AM BOOKKEEPER RECEPTIONIST Infection erroneous documented as of this encounter
--- OUTSIDE RECORDS SUMMARY | 2022-03-26 21:37 | XMS_ITS | Encounter Summary ---
:1960 Author Organization [facility] Address [address] [facility] [place] [address] Care Team Providers Name Role Phone Unavailable Primary Care Provider Unavailable Encounter Details Date Type Department Care Team Description 03/13/2009 Consultation [facility] Jamaal Tyler, Hospital Results [facility] CONSULT ANTS [address] [facility] [address] [place] [address] (Wo rk) Social History Tobacco Use Types Packs/Day Years Used Date Smoking Tobacco: Never Alcohol Use Standard Drinks/Week Comments Yes 0 (1 standard drink = 0.6 oz pure alcoho l) socially approx 5 drinks/wk Sex Assigned at Date Recorded Not on file documented as of this encounter Progress Notes Jamaal Tyler - 03/30/2009 8:06 AM PROGRAMMER ANALYST FINAL RENAL CONSULTATION: Requesting physician: Hospitalist Service [...] MD MT: [id number]#[id number] Name: ELIJAH BROWN Account: [id number] : 1960 Consult Date: 03/13/2009 Document: [id number] RAMMER ANALYST documented in this encounter Plan of Treatment Not on filedocumented as of this encounter Visit Diagnoses Not on filedocumented in this encounter Additional Health Concerns Infection Onset Date Last Indicated Resolved Time MRSA-Contact IsolationComment: 0 04/26/2021 11:03 AM PROGRAMMER ANALYST Infection erroneous documented as of this encounter
--- OUTSIDE RECORDS SUMMARY | 2022-03-26 21:37 | XMS_ITS | Encounter Summary ---
:1960 Author Organization [facility] Address [address] [place] [address] Care Team Providers Name Role Phone Unavailable Primary Care Provider Unavailable Encounter Details Date Type Department Care Team Description 07/19/2008 Discharge Summary [facility] Kendall Garcia (Hog Killer) [facility] MD Raghu Results [facility] [address] [facility] [address] [place], [place] [address] Social History Tobacco Use [...] MD MT: [id number] Name: ELIJAH BROWN Account: [id number] : 1960 Admit Date: Discharge Date: 07/19/2008 Document: [id number] documented in this encounter Plan of Treatment Not on filedocumented as of this encounter Visit Diagnoses Not on filedocumented in this encounter Additional Health Concerns Infection Onset Date Last Indicated Resolved Time MRSA-Contact IsolationComment: 0 04/26/2021 11:03 AM FOOD PRODUCTS SALES REPRESENTATIVE Infection erroneous documented as of this encounter
--- OUTSIDE RECORDS SUMMARY | 2022-03-26 21:37 | XMS_ITS | Encounter Summary ---
:1960 Author Organization [facility] Address [address] [place] [address] Care Team Providers Name Role Phone Unavailable [...] as of this encounter Progress Notes Interface, Coffee Weigher - 07/11/2010 6:10 AM CDT SW: Met [...] if he chooses to do so. x [phone] [Signature] Author: Mai López (SALES PLANNING MANAGER) [Signed 09:41] Interface, Coffee Weigher - 07/11/2010 6:08 AM CDT BRIEF NUTRITION [...] Time MRSA-Contact IsolationComment: 0 04/26/2021 11:03 AM PVC LOADER Infection erroneous documented as of this encounter
--- OUTSIDE RECORDS SUMMARY | 2022-03-26 21:37 | XMS_ITS | Encounter Summary ---
:1960 Author Organization [facility] Address [address] [place] [address] Care Team Providers Name Role Phone Unavailable Primary Care Provider Unavailable Encounter Details Date Type Department Care Team Description 07/18/2008 Results Only [facility] Denys Banguar MD [facility] Results [facility] [address] [facility] [address] [place], [place] [address] (Wo rk) Social History [...] Ruben Willis #: 09 - 84 LOCATION: [address] TYPE: routine CONDITION OF PATIENT: normal/tense. [...] recording with photic stimulation, or hyperventilation. The radiation monitor is recording a regular, approximately 90 beat per minute heart rate. IMPRESSION: Normal awake EEG. Electronically signed on 08/22/2008 09:44 by DENYS SAENZ MD MT: lsd Name: ELIJAH BROWN Account: [id number] : 1960 Procedure Date: 07/18/2008 Document: [id number] cc: Ruben Austin MD documented in this [...] Ruben MondragonEG #: 09 - 84 LOCATION: [address] TYPE: routine CONDITION OF PATIENT: normal/tense. [...] recording with photic stimulation, or hyperventilation. The radiation monitor is recording a regular, appr oximately 90 beat per minute heart rate. IMPRESSION: Normal awake EEG. Electronically signed on 08/22/2008 09: 44 by DENYS SAENZ MD MT: lsd Name: ELIJAH BROWN MRN: [id number] Account: [id number] : 1960 Procedure Date: 009 Document: [id number] cc: Ruben Austin MD Denys Bangura MD PROCEDURES documented in this encounter Visit Diagnoses Not on filedocumented in this encounter Additional Health Concerns Infection Onset Date Last Indicated Resolved Time MRSA-Contact IsolationComment: 0 04/26/2021 11:03 AM LANDSCAPE MANAGEMENT TECHNICIAN Infection erroneous documented as of this encounter
--- OUTSIDE RECORDS SUMMARY | 2022-03-26 21:38 | XMS_ITS | Encounter Summary ---
:1960 Author Organization [address] [address] Care Team Providers Name Role Phone Unavailable Primary Care Provider Unavailable Encounter Details Date Type Department Care Team Description 05/11/2007 Orders Only [facility] Julius Welsh MD DIAGNOSIS NOT YET Clinic [address] DEFINED (Primary Dx) [address] [place] [address] [phone] Social History Tobacco Use Types Packs/Day Years [...] . documented in this encounter Results LDL-CHOLESTEROL [68907.001] (05/11/2007) P athologist Signature LDL Cholesterol 92 mg/dL MISYS Calculated Julius Welsh MD LABORATORY Performing Organization Address City/State/ZIP Code Phon e Number MISYS HDL CHOLESTEROL [38344.000] (05/11/2007) P athologist Signature HDL Cholesterol 43 mg/dL MISYS Julius Welsh MD LABORATORY Performing Organization Address [facility] Code Phon e Number MISYS TRIGLYCERIDES [63761.000] (05/11/2007) P athologist Signature Triglycerides 134 mg/dL MISYS Julius Welsh MD LABORATORY Performing Organization Address [facility] Phon e Number MISYS CHOLESTEROL [42893.000] (05/11/2007) P athologist Signature Cholesterol 162 115 - 199 MISYS mg/dL Julius Welsh MD LABORATORY Performing Organization Address [facility] Phon e Number MISYS documented in this encounter Visit Diagnoses Diagnosis DIAGNOSIS NOT YET DEFINED - Primary documented in this encounter Additional Health Concerns Infection Onset Date Last Indicated Resolved Time MRSA-Contact IsolationComment: 0 04/26/2021 11:03 AM FIELD TECHNICAL ASSISTANT Infection erroneous documented as of this encounter
--- OUTSIDE RECORDS SUMMARY | 2022-03-26 21:38 | XMS_ITS | Encounter Summary ---
:1960 Author Organization [facility] Address [facility] [address] Care Team Providers Name Role Phone Unavailable Primary Care Provider Unavailable Encounter Details Date Type Department Care Team Description 09/28/2006 Historic Results [facility] Ruben Anderson MD [address] [facility] [address] [place], [place] [address] [place] [address] [phone] (Wo rk) Social History Tobacco Use Types [...] to 2500 Unit: mg/d (Note) Performed by [employer], [address] [place] [id number] [email or web address], ??Martni Frazier MD - Lab. Director Lead Urine [...] LAB - BLOOD ORDERABLES Performing Organization Address [facility] Phon e Number MISYS (ABNORMAL) Hemogram differential and platelet (09/28/2006 7:03 AM CDT) [facility] Method Time Signature MCV 99 78 [...] Performing Organization Address City/[facility]/ZIP Code Phon e Number MISYS (ABNORMAL) Vitamin B1 plasma (09/28/2006 7:03 AM CDT) athologist Signature Vitamin B1 4.2 (H) MISYS Comment: Reference range: 0.2 to 2.0 Unit: ug/dL (Note) Performed by [employer], [address] [place] [id number] [email or web address], ??Martin Frazier MD - Lab. Director Specimen [...] and IgM screen (09/28/2006 7:03 AM CDT) [facility] Method Time Signature Specimen Serum MISYS [...] Time MRSA-Contact IsolationComment: 0 04/26/2021 11:03 AM PIN 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
--- OUTSIDE RECORDS SUMMARY | 2022-03-26 21:38 | XMS_ITS | Encounter Summary ---
:1960 Author Organization [facility] Address [address] [place] [address] Care Team Providers Name Role Phone Unavailable Primary Care Provider Unavailable Encounter Details Date Type Department Care Team Description 09/27/2006 Admission [facility] Amna Austin (Photography Spotter) [facility] [place] MD Fina [address] [place], [place] CLINIC [address] [phone] [place], [place] [address] (Wo rk) Social History [...] [place] was [place] fishing in the [place] area and did not have any problems [...] food intolerance that he notices is with [place] food. Over the weekend he was drinking beer as well as hard liquor. He was drinking more than he usually does. When he got back from the fishing trip, he said that he felt shaky. He says that he does normally drink 2-3 drinks of hard liquor daily. He denies requiring an e ye bobbin loose end finder. He did try to cut back after [...] withdrawal symptoms. He was discharged [facility] the [facility] in July of 2006 and was [...] MD MT: ROSHNI#[id number] Name: ELIJAH BROWN Account: [id number] : 1960 Admitted: [id number] Document: [id number] documented in this encounter Plan of Treatment Not on filedocumented as of this encounter Visit Diagnoses Not on filedocumented in this encounter Additional Health Concerns Infection Onset Date Last Indicated Resolved Time MRSA-Contact IsolationComment: 0 04/26/2021 11:03 AM SBA UNDERWRITER Infection erroneous documented as of this encounter
--- OUTSIDE RECORDS SUMMARY | 2022-03-26 21:38 | XMS_ITS | Encounter Summary ---
:1960 Author Organization [facility] Address [address] [place] [address] Care Team Providers Name Role Phone Unavailable Primary Care Provider Unavailable Encounter Details Date Type Department Care Team Description 07/15/2008 Admission [facility] Amna Austin (Strategic Planning Director) [facility] MD Fina Results [facility] [address] [place], [place] [address] (Wo rk) Social History [...] at work this evening. He works in [employer] and felt that he was working normally [...] rest. This past weekend, he was in [place] visiting with some high school buddies. He [...] in treatment. He denies needing an eye manager interventional in the morning to calm the shakes. [...] MD MT: [id number] Name: ELIJAH BROWN Account: [id number] : 1960 Admitted: [id number] Document: [id number] documented in this encounter Plan of Treatment Not on filedocumented as of this encounter Visit Diagnoses Not on filedocumented in this encounter Additional Health Concerns Infection Onset Date Last Indicated Resolved Time MRSA-Contact IsolationComment: 0 04/26/2021 11:03 AM EMERGENCY SERVICES DIRECTOR Infection erroneous documented as of this encounter
--- OUTSIDE RECORDS SUMMARY | 2022-03-26 21:38 | XMS_ITS | Encounter Summary ---
:1960 Author Organization [place] Address [address] [place] [address] Care Team Providers Name Role Phone Unavailable [...] RESULTS Atrial Rate 81 BPM RADIOLOGY RESULTS SD Interval 142 ms RADIOLOGY RESULTS QRS Duration 112 ms RADIOLOGY RESULTS QT 342 ms RADIOLOGY RESULTS QTc 397 ms RADIOLOGY RESULTS P [place] 38 degrees RADIOLOGY RESULTS R AXIS -8 degrees RADIOLOGY RESULTS T [place] 42 degrees RADIOLOGY RESULTS Interpretation AGE AND [...] Time MRSA-Contact IsolationComment: 0 04/26/2021 11:03 AM LPN HOME HEALTH Infection erroneous documented as of this encounter
--- OUTSIDE RECORDS SUMMARY | 2022-03-26 21:38 | XMS_ITS | Encounter Summary ---
:1960 Author Organization [facility] Address [address] [place] [address] Care Team Providers Name Role Phone Unavailable Primary Care Provider Unavailable Reason for Visit Reason Onset Date Comments Erroneous encounter-disregard 01/14/2008 Encounter Details Date Type Department Care Team Description 01/14/2008 Victor Hugo [facility] Chase Dodd MD Erroneous Clinic [place] XXX RESIGNED XXX encounter-disregard [address] [place] [phone] (Wo rk) Social History Tobacco Use [...] MRSA-Contact IsolationComment: 0 04/26/2021 11:03 AM SENIOR SECURITY ARCHITECT Infection erroneous documented as of this encounter
--- OUTSIDE RECORDS SUMMARY | 2022-03-26 21:38 | XMS_ITS | Encounter Summary ---
:1960 Author Organization [facility] Address [address] [place] [address] Care Team Providers Name Role Phone Unavailable Primary Care Provider Unavailable Encounter Details Date Type Department Care Team Description 09/27/2006 Emergency room [facility] [address] [place] [address] Social History Tobacco Use Types Packs/Day Years Used Date Smoking Tobacco: Never Alcohol Use Standard Drinks/Week Comments Yes 0 (1 standard drink = 0.6 oz pure alcoho l) socially approx 5 drinks/wk Sex Assigned at Date Recorded Not on file documented as of this encounter Progress Notes Interface, Woodyard Operator - 09/30/2006 8:16 AM CDT FINAL CHIEF [...] MD MT: [id number] Name: ELIJAH BROWN Account: [id number] : 1960 Visit Date: 09/27/2006 Document: [id number] cc: Tristan Ferrera MD documented in this encounter Plan of Treatment Not on filedocumented as of this encounter Visit Diagnoses Not on filedocumented in this encounter Additional Health Concerns Infection Onset Date Last Indicated Resolved Time MRSA-Contact IsolationComment: 0 04/26/2021 11:03 AM OPERATOR AND TRUCK DRIVER Infection erroneous documented as of this encounter
--- OUTSIDE RECORDS SUMMARY | 2022-03-26 21:38 | XMS_ITS | Encounter Summary ---
:1960 Author Organization [facility] Address [facility] [place] [address] Care Team Providers Name Role Phone No Ref-Primary, Physician Primary Care Provider [phone] Juan Farias MD Unavailable Edilia Trejo APRN PAINT LINE SUPERVISOR Unavailable Glendy vailable Juan Farias MD Unavailable Denise Connell-C Unavailable [phone] Edilia Trejo APRN PAINT LINE SUPERVISOR Unavailable Glendy vailable Denise Connell-C Unavailable [phone] Juan Farias MD Primary Care Provider Dana Barry PA-C Unavailable [phone] Encounter Details Date Type Department Care Team Description 05/11/2007 Office Visit-[facility] Heart Juan Farias MD [address] [place] [address] [place] [address] [phone] Social History Tobacco Use Types Packs/Day Years [...] old Referring Physician: JEROME MORENO Referring Clinic: [facility] CURRENT DIAGNOSES 1. - Hypercholesterolemia, 272.0 2. 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 <FONT COLOR=#[id number]><FONT POINT=10>EXTREMITIES & BACK no deformities, clubbing, cyanosis, [...] Mg 1 p.o. q.d. #30 Refill <FONT COLOR=#[id number]><FONT POINT=10> IMPRESSIONS: I had the opportunity to [...] fasting lipidpanel prior to my visit. <FONT COLOR=#[id number]><FONT POINT=10> TODAYS ORDERS 1. Lipid profile/ALT 1 day 2. Return Visit 1 year 3. Lipid profile/ALT 1 year Juan Farias M.D. documented in this encounter Plan of Treatment Not on filedocumented as of this encounter Visit Diagnoses Not on filedocumented in this encounter Additional Health Concerns Infection Onset Date Last Indicated Resolved Time MRSA-Contact IsolationComment: 0 04/26/2021 11:03 AM WOOD CABINETMAKER Infection erroneous MRSA 05/13/2021 05/13/2021 Rule Out C-difficile 12/06/2021 12/06/2021 12/07/2021 8:46 AM CDT documented as of this encounter Care Teams Home Security Alarm Installer Relationship Specialty Start Date End Date No Ref-Primary, PCP - General 07/03/14 12/03/21 Physician Juan Farias MD PCP - General Cardiovascular Disease 12/04/21 [address] [place] [address] Juan Farias MD Assigned Heart and 02/14/20 10/03/20 [address] Vascular Provider [address] [place] [address]365 Maya, Assigned Heart and 10/04/20 Edilia Chapman APRN Vascular Provider PAINT LINE SUPERVISOR NO INFO AVAILABLE 02/10/2022 Juan Farias MD Assigned Heart and 04/04/21 07/31/21 [address] Vascular Provider [address] [place] [id number] Denise Connell Physician Door Repairer Bus Cardiovascular Disease 08/12/21 MARIETTA Watson [address] [place] [id number] Maya Assigned Heart and 08/01/21 2 Edilia Chapman APRN Vascular Provider PAINT LINE SUPERVISOR NO INFO AVAILABLE 02/10/2022 Denise Connell Assigned Heart and 08/22/21 01/14/22 MARIETTA Watson Vascular Provider [address] [place] [id number] Dana Barry Assigned Heart and 01/15/22 MARIETTA Teague Vascular Provider [address] [place] [id number] documented as of this encounter
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
--- OUTSIDE RECORDS SUMMARY | 2022-03-26 21:38 | XMS_ITS | Encounter Summary ---
:1960 Author Organization [facility] Address [address] [place] [address]. [place] [address] Care Team Providers Name Role Phone Unavailable Primary Care Provider Unavailable Encounter Details Date Type Department Care Team Description 07/15/2008 Consultation [facility] Flakita Walls, Hospital Results [facility] [place] [address] (Wo rk) Social History Tobacco Use Types [...] DEPENDENCY ASSESSMENT EVALUATION COUNSELOR: CHRISTIE Ruiz. ADDRESS: [id number] [place] [address] 10/28/2006. PHONE: [phone] STATISTICS: Age: 47. Sex: Male. Marital Status: Single. REFERRAL: [facility] MS3. REASON FOR EVALUATION: An evaluation was [...] is a functional vulnerable adult according to [place] statute 626.5572, subdivision 21, due to his hospitalization. IMPRESSION: AXIS I: 303.9. AXIS II: Deferred. AXIS III: Deferred. AXIS IV: Most of his friends use. [place] V: 47. LEVEL OF CARE: 1. Intoxication [...] he do outpatient chemical dependency treatment in [place]. He is refusing treatment at this time. INITIAL PROBLEM LIST: He lacks understanding and coping skills. Chemical dependency issues. Electronically signed on 07/23/2008 16:09 by CHRISTIE RUIZ MT: [id number] Name: ELIJAH BROWN MRN: [id number] Account: [id number] : 1960 Consult Date: 07/15/2008 Document: [id number] documented in this encounter Plan of Treatment Not on filedocumented as of this encounter Visit Diagnoses Not on filedocumented in this encounter Additional Health Concerns Infection Onset Date Last Indicated Resolved Time MRSA-Contact IsolationComment: 0 04/26/2021 11:03 AM SERVICE LOSS CONTROL CONSULTANT Infection erroneous documented as of this encounter
--- OUTSIDE RECORDS SUMMARY | 2022-03-26 21:38 | XMS_ITS | Encounter Summary ---
:1960 Author Organization [facility] Address [address] [place] [address] Care Team Providers Name Role Phone Unavailable Primary Care Provider Unavailable Encounter Details Date Type Department Care Team Description 07/15/2008 Historic Results INTERFACED REPORT Jace Forrest MD XXX [place] [address] Social History Tobacco Use Types Packs/Day Years [...] (FL, RH, SH) (07/15/2008 7:20 PM CDT) [facility] Method Time Signature Amphetamine Qual Negative [...] with platelets differential (07/15/2008 5:25 PM CDT) [facility] Method Time Signature MCV 96 [id number] [...] ORDERABLES Performing Organization Address City/[facility] Code Phon e Number MISYS Acetaminophen [...] Time MRSA-Contact IsolationComment: 0 04/26/2021 11:03 AM ENGINE DYNAMOMETER TESTER Infection erroneous documented as of this encounter
--- OUTSIDE RECORDS SUMMARY | 2022-03-26 21:38 | XMS_ITS | Encounter Summary ---
:1960 Author Organization [facility] Address [address] [place] [address] Care Team Providers Name Role Phone Unavailable Primary Care Provider Unavailable Reason for Visit Reason Onset Date Comments Refill Request 12/06/2006 Lisinopril Encounter Details Date Type Department Care Team Description 12/06/2006 Refill [facility] Julius Welsh MD Refill Request Clinic [address] (Lisinopril) [address] [place] [address] [phone] Social History Tobacco Use Types Packs/Day Years Used Date Smoking Tobacco: Never Alcohol Use Standard Drinks/Week Comments Yes 0 (1 standard drink = 0.6 oz pure alcoho l) socially approx 5 drinks/wk Sex Assigned at Date Recorded Not on file documented as of this encounter Miscellaneous Notes Telephone Encounter - Meghan Ballrad - 12/06/2006 3:58 PM CDT Last office visit: [id number] Reason for visit: hemorrhoid Date last filled: [id number] Last 2 BP Readings: Date: BP: 08/10/2006 [...] Time MRSA-Contact IsolationComment: 0 04/26/2021 11:03 AM BUILDING SUPERINTENDENT Infection erroneous documented as of this encounter
--- OUTSIDE RECORDS SUMMARY | 2022-03-26 21:38 | XMS_ITS | Encounter Summary ---
:1960 Author Organization [facility] Address [address] [place] [address] Care Team Providers Name Role Phone Unavailable Primary Care Provider Unavailable Reason for Visit Reason Onset Date Comments Refill Request 01/14/2008 Omeprazole Slk Encounter Details Date Type Department Care Team Description 01/14/2008 Refill [facility] Julius Welsh MD Refill Request Clinic [place] [address] [place] [address] (Omeprazole Slk) [address] [place] [address] [phone] Social History Tobacco Use Types Packs/Day Years [...] Time MRSA-Contact IsolationComment: 0 04/26/2021 11:03 AM HOUSEHOLD WORKER Infection erroneous documented as of this encounter
--- OUTSIDE RECORDS SUMMARY | 2022-03-26 21:38 | XMS_ITS | Encounter Summary ---
:1960 Author Organization [facility] Address [address] [place] [address] Care Team Providers Name Role Phone Unavailable [...] as of this encounter Progress Notes Interface, Custom Garment Designer - 07/11/2010 6:11 AM CDT General Information - How to be addressed Kayden - Source of reliable Patient; Chart(s) information - Arrived from Emergency department - counter sales person #1: Perlita - Contact Location: Home Local - Phone 1: [phone] - Patient's spoken language; Nepali or Bilingual communication style Advance Directive - [...] life Values/Beliefs/Spiritual Care - F: Enedina: Does Jain culture/spirituality/ advent play an important part in your life? - Would you like Does not wish to have anyone contacted pastoral care/clergy/business performance advisor notified? Mutuality/Individual Preferences - What information [...] Cognitive Perceptual, Activity-Exercise/Self Care, Role Relationships Interface, Custom Garment Designer - 07/11/2010 6:11 AM CDT RX: Fall [...] Time MRSA-Contact IsolationComment: 0 04/26/2021 11:03 AM TAKER OUT Infection erroneous documented as of this encounter
--- OUTSIDE RECORDS SUMMARY | 2022-03-26 21:38 | XMS_ITS | Encounter Summary ---
:1960 Author Organization [facility] Address [address] [place] [address] Care Team Providers Name Role Phone Unavailable [...] as of this encounter Progress Notes Interface, Sole Ruffer - 07/12/2010 2:39 PM CDT SWS D: received MD order to see regarding discharge planning. Chart reviewed, noted hx ETOH use and CD evaluation pending. Noted MD note from today anticipating out-pt CD services. SWS to continue to follow, assist as needed with services arrangemnets a based on CD evaluation. [Signature] Author:Angela Berumen (FACING END TRIMMER) [Signed 29-Sep-2006 13:11] Interface, Sole Ruffer - 07/12/2010 2:38 PM CDT Patient Status Patient Status - Physical status Stable (s/s of potential complications absent or manageable) - Psychosocial status Stable Discharge Planning - Discharge From: [facility] - Patient Care Unit: Med-Surg 2 - [...] Egan - Phone number of who patient [phone] should call: - Other Special Care Needs: Follow up with outpatient chemical dependency treatment. Follow Up Care - Physician name: Dr. Anderson ([phone]) - When to see physician: 2-3 weeks Signatures Sis Hernandez (RN) Authored: Patient Status, Discharge Planning, Discharge Information, Medications and Prescriptions, Support Services, Special Care Needs and Instructions, Follow Up Care Interface, Sole Ruffer - 07/12/2010 2:38 PM CDT SWS D: Spoke with RN who informs that CD grizzlyman has not been here to consult with pt. Per her discussion with MD it was requested that SWS talk with pt about CD resources, out-pt services prior to his dicsharge. SWS visit with pt was brief, pt standing at the door of his room waiting to leave, I am already an hour late. SWS presented pt with the information ( [employer] CD out-pt brochure and #, community resources) and strongly encouraged his follow-up. Pt accepted information and quickly left the unit. A: With brief intervention due to pt's desire to leave, unable to fully assess additional needs, support. P: No further SWS. [Signature] Author:Angela Berumen (FLOR) [Signed 29-Sep-2006 16:11] Interface, Sole Ruffer - 07/12/2010 2:37 PM CDT Patient restless [...] eval was order 09/28/06 at 9AM. This publications writer attempted to contact the office of the security threat analyst by both phone and pager for total of 6 attempts. health services director also had the intake office try to contact the security threat analyst. Patient appeared to be about to leave AMA due to the lateness or the day and the CD eval not completed yet. Dr. Egan notified and order received to give patient outpatient CD treatment resources. health services director was informed and completed referral. [...] MRSA-Contact IsolationComment: 0 04/26/2021 11:03 AM SENIOR QUALITY CONTROL INSPECTOR Infection erroneous documented as of this encounter
--- OUTSIDE RECORDS SUMMARY | 2022-03-26 21:38 | XMS_ITS | Encounter Summary ---
:1960 Author Organization [facility] Address [facility] [place] [address] Care Team Providers Name Role Phone Unavailable Primary Care Provider Unavailable Encounter Details Date Type Department Care Team Description 07/16/2008 Results Only [facility] Ruben Anderson MD [address] [facility] [address] [place], [place] [address] [place] [address] [phone] (Wo rk) Social History Tobacco Use Types [...] procedure are i n the results section. [facility] ECHO HEART Routine 07/16/2008 1:32 PM Results [...] of the neck were obtained using 2-dimensional dapn-tu-mbiuzz before cont rast and three dimensional lthm-gi-kcigdc after the uneventful admi nistration of gadolinium [...] ??eval high gr ottoniel stenosis, TECHNIQUE: ??3D wzwj-qe-ioazjy MR angiog herve of the head without contrast. COMPARISON: None. FINDINGS: The visualized portions of the distal internal carotid and vertebral arteries, the basilar artery, chitim[place] of [place], and the proximal anterior, middle [...] XTHORACIC,COMPLETE, W/O DOPPLER (07/16/2008 1:32 PM CDT) [facility] Method Time Signature [facility] Interpretation [...] Time MRSA-Contact IsolationComment: 0 04/26/2021 11:03 AM VENEER SAWYER Infection erroneous documented as of this encounter
--- OUTSIDE RECORDS SUMMARY | 2022-03-26 21:38 | XMS_ITS | Encounter Summary ---
:1960 Author Organization [facility] Address [address] [place] [address] Care Team Providers Name Role Phone Unavailable Primary Care Provider Unavailable Encounter Details Date Type Department Care Team Description 08/04/2006 Historic Results [facility] Nany Austin Verplanck MD Fina [address] [place], [place] CLINIC [address] [phone] [place], [place] [address] (Wo rk) Social History [...] (08/04/2006 6:45 AM CDT) [facility] Time Signature Sodium 141 133 - 144 [...] Time MRSA-Contact IsolationComment: 0 04/26/2021 11:03 AM CLEAT FEEDER Infection erroneous documented as of this encounter
--- OUTSIDE RECORDS SUMMARY | 2022-03-26 21:38 | XMS_ITS | Encounter Summary ---
:1960 Author Organization [facility] Address [address] [place] [address] Care Team Providers Name Role Phone Unavailable Primary Care Provider Unavailable Reason for Visit Reason Onset Date Comments Refill Request 11/13/2006 OMEPRAZOLE Encounter Details Date Type Department Care Team Description 11/13/2006 Refill [facility] Ref ill Request (OMEPRAZOLE) [place] [address] [phone] Social History Tobacco Use Types Packs/Day [...] Time MRSA-Contact IsolationComment: 0 04/26/2021 11:03 AM EMULSIFICATION OPERATOR Infection erroneous documented as of this encounter
--- OUTSIDE RECORDS SUMMARY | 2022-03-26 21:38 | XMS_ITS | Encounter Summary ---
:1960 Author Organization [facility] Address [address] [place] [address] Care Team Providers Name Role Phone Unavailable Primary Care Provider Unavailable Reason for Referral Specialty Diagnoses / Procedures Referred By Contact Refer red To Contact Tristan [place] ph, [place] [id number] [place] [address] Referral ID Status Reason Start Date Expiration Date Visits Requ ested Visits Authorized Encounter Details Date Type Department Care Team Description 11/03/2006 Orders Only [facility] Tristan Egan SIS NOT YET Clinic [place] DEFINED (Primary Dx) [address] [facility] [address] [place] [address] [phone] Social History Tobacco Use Types Packs/Day Years [...] MRSA-Contact IsolationComment: 0 04/26/2021 11:03 AM PRESS AND BLOW MACHINE TENDER Infection erroneous documented as of this encounter
--- OUTSIDE RECORDS SUMMARY | 2022-03-26 21:38 | XMS_ITS | Encounter Summary ---
:1960 Author Organization [facility] Address [address] [place] [address] Care Team Providers Name Role Phone Unavailable Primary Care Provider Unavailable Encounter Details Date Type Department Care Team Description 09/28/2006 Results Only [facility] Ruben Anderson MD Hospital Results XXX RETIRED XXX [address] [place], [place] [address] (Wo rk) Social History [...] Time MRSA-Contact IsolationComment: 0 04/26/2021 11:03 AM DRYWALL TAPER Infection erroneous documented as of this encounter
--- OUTSIDE RECORDS SUMMARY | 2022-03-26 21:38 | XMS_ITS | Encounter Summary ---
:1960 Author Organization [facility] Address [address] [place] [address] Care Team Providers Name Role Phone Unavailable Primary Care Provider Unavailable Reason for Visit Reason Onset Date Comments Refill Request 11/08/2007 Omeprazole Encounter Details Date Type Department Care Team Description 11/08/2007 Refill [facility] Julius Welsh MD Refill Request Clinic [place] [address] [place] (Omeprazole) [address] [place], [place] [address] [address] [phone] Social History Tobacco Use Types Packs/Day Years [...] MRSA-Contact IsolationComment: 0 04/26/2021 11:03 AM SLIDE FASTENER REPAIRER Infection erroneous documented as of this encounter
--- OUTSIDE RECORDS SUMMARY | 2022-03-26 21:38 | XMS_ITS | Encounter Summary ---
:1960 Author Organization [facility] Address [address] [place] [address] Care Team Providers Name Role Phone Unavailable Primary Care Provider Unavailable Encounter Details Date Type Department Care Team Description 07/15/2008 Results Only [facility] Andrea Forrest, Hospital Results [place] [address] Social History Tobacco Use Types Packs/Day Years [...] Time MRSA-Contact IsolationComment: 0 04/26/2021 11:03 AM TUMBLER 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
--- OUTSIDE RECORDS SUMMARY | 2022-03-26 21:38 | XMS_ITS | Encounter Summary ---
:1960 Author Organization [facility] Address [address] [place] [address] Care Team Providers Name Role Phone Unavailable Primary Care Provider Unavailable Reason for Visit Reason Comments Hospital F/U Encounter Details Date Type Department Care Team Description 08/10/2006 Office Visit [facility] [place] Julius Welsh MD GASTROINTEST HEMORR NOS; Clinic [place] [address] MIXED HYPERLIPIDEMIA [address] [place] [address] [phone] Social History Tobacco Use Types Packs/Day Years [...] MRSA-Contact IsolationComment: 0 04/26/2021 11:03 AM DISPLAY MECHANIC Infection erroneous documented as of this encounter
--- OUTSIDE RECORDS SUMMARY | 2022-03-26 21:38 | XMS_ITS | Encounter Summary ---
:1960 Author Organization [facility] Address [address] [place] [address] Care Team Providers Name Role Phone Unavailable Primary Care Provider Unavailable Reason for Visit Reason Comments RECHECK Patient here for recheck and refill on omeprozole and has some questions about the valium and how its working Encounter Details Date Type Department Care Team Description 01/17/2008 Office Visit [facility] Julius Welsh, Unspecif ied, Hemorrhage of Gastrointestinal Tract; Clinic [place] Delirium Tremens, Alcohol Withdrawal Ind ed [address] [place] [address] [place] [address] [place], [place] [phone] [address] Social History Tobacco Use Types Packs/Day Years [...] 01/17/2008 1:00 PM CDT >> TC [facility] Jan 17, 2008 1:11 PM Patient [...] MRSA-Contact IsolationComment: 0 04/26/2021 11:03 AM PHARMACY DIRECTOR Infection erroneous documented as of this encounter
--- OUTSIDE RECORDS SUMMARY | 2022-03-26 21:38 | XMS_ITS | Encounter Summary ---
:1960 Author Organization [place] Address [address] [place] [address] Care Team Providers Name Role Phone Unavailable [...] as of this encounter Progress Notes Interface, Industrial Health Engineer - 07/12/2010 2:46 PM CDT General Information General Information - <R> How to be addressed Kayden - <R> Crown Perforator Operator Needed No - Source of reliable Patient information - Arrived from Home Patient Contact Information - <R> china and silverware salesperson to Selina Wells (Significant other) notify: - Contact Location: Home Local - <R> Phone 1: [phone] - Cell Advance Directive Advanced [facility] Care [...] Care Values/Beliefs/Spiritual Care - F: Enedina: Does Religious culture/spirituality/ adventist play an important part in your life? - <R> Would you like pastoral Does not wish to have anyone contacted care/clergy/telesales advisor notified? Mutuality/Individual Preferences Mutuality/Preferences - <R> [...] Kristina erance, Values/Beliefs/Spiritual Care, Mutuality/Individual Preferences Interface, Industrial Health Engineer - 07/12/2010 2:45 PM CDT Nutrition Assessment Nutrition Assessment - Reason for assessment Admission screen Anthropometrics - Height: 5'8 1/2 - Admission weight: 77.7 kg - BMI: 26 - IBW ([place] body weight): 71.4 kg - % IBW ([place] body weight): 109% - Dosing weight: 77.7 [...] Estimated Needs Estimated Needs - Energy needs: 2522-4570 kcal (25-30 kcal/kg) - Protein needs: 78-94 gms protein (1-1.2 gm/kg) - Fluid needs: 1717-0132 mL fluid (30-35 mL/kg) Nutrition Diagnosis Nutrition [...] MRSA-Contact IsolationComment: 0 04/26/2021 11:03 AM MANAGER PACKAGING Infection erroneous documented as of this encounter
--- OUTSIDE RECORDS SUMMARY | 2022-03-26 21:38 | XMS_ITS | Encounter Summary ---
:1960 Author Organization [place] Address [address] [place] [address] Care Team Providers Name Role Phone Unavailable [...] as of this encounter Progress Notes Interface, End Finder Forming Department - 07/12/2010 5:34 PM CDT Patient Status Patient Status Physical status - Stable (s/s of potential complications absent or manageable) Psychosocial status - Stable Discharge Planning Discharge From [facility] Patient Care Unit - MS3 PCU Phone Number - [phone] Discharge To - Home Phone number after discharge - [phone] Method of discharge - Wheel Chair Transportation [...] Instructions Diet Instructions - As instructed by burner hand-follow diet sheet Activity Instructions - as tolerated [...] Time MRSA-Contact IsolationComment: 0 04/26/2021 11:03 AM REFLOW OPERATOR Infection erroneous documented as of this encounter
--- OUTSIDE RECORDS SUMMARY | 2022-03-26 21:38 | XMS_ITS | Encounter Summary ---
:1960 Author Organization [place] Address [address] [place] [address] Care Team Providers Name Role Phone Unavailable Primary Care Provider Unavailable Reason for Visit Reason Onset Date Comments Refill Request 03/13/2007 lisinopril Encounter Details Date Type Department Care Team Description 03/13/2007 Refill [facility] Tristan Egan Refill Request Clinic [place] MD Navin (lisinopril) [address] [place] [phone] (Wo rk) Social History Tobacco Use Types [...] check. Ok'd PSO Korina Villasenor, RN, BSN documented in this encounter Plan of Treatment Not on filedocumented as of this encounter Visit Diagnoses Diagnosis Unspecified essential hypertension documented in this encounter Additional Health Concerns Infection Onset Date Last Indicated Resolved Time MRSA-Contact IsolationComment: 0 04/26/2021 11:03 AM CCNP Infection erroneous documented as of this encounter
--- OUTSIDE RECORDS SUMMARY | 2022-03-26 21:38 | XMS_ITS | Encounter Summary ---
:1960 Author Organization [place] Address [address] [place] [address] Care Team Providers Name Role Phone Unavailable Primary Care Provider Unavailable Reason for Visit Reason Onset Date Comments Refill Request 02/05/2007 lisinopril Encounter Details Date Type Department Care Team Description 02/05/2007 Refill [facility] Ref ill Request (lisinopril) [place] [phone] Social History Tobacco Use Types Packs/Day [...] MRSA-Contact IsolationComment: 0 04/26/2021 11:03 AM HOSPITAL ACCOUNT MANAGER Infection erroneous documented as of this encounter
--- OUTSIDE RECORDS SUMMARY | 2022-03-26 21:38 | XMS_ITS | Encounter Summary ---
:1960 Author Organization [place] Address [address] [place] [address] Care Team Providers Name Role Phone Unavailable Primary Care Provider Unavailable Encounter Details Date Type Department Care Team Description 09/27/2006 Historic Results [facility] Horace Egan [place] MD Navin [address] [place] [phone] (Wo rk) Social History Tobacco Use Types [...] LAB - URINE ORDERABLES Performing Organization Address [facility] Code Phon e Number MISYS (ABNORMAL) Routine UA with microscopic (09/27/2006 11:20 AM CDT) [facility] Method Time Signature Source Midstream MISYS Urine Color Urine Yellow MISYS Appearance Urine Clear MISYS Glucose Urine Negative NEG mg/dL MISYS Bilirubin Urine Negative NEG MISYS Ketones Urine 5 (A) NEG mg/dL MISYS Specific [place] 1.011 1.003 - MISYS Urine 1.035 Blood [...] LAB - URINE ORDERABLES Performing Organization Address [facility] Phon e Number MISYS C difficile culture (09/27/2006 11:20 AM CDT) [facility] Method Time Signature Specimen Feces MISYS Descrip C Difficile No Clostridium MISYS Culture difficile isolated Specimen Anatomical Collection Method Collection Time Receive d Time (Source) Location / / Volume Laterality 09/27/2006 11:20 09/27/2006 AM CDT 11:58 AM CDT Tristan Egan MD LAB - MICRO GENERAL ORDERABL ES Performing Organization Address [facility]/ZIP Code Phon e Number MISYS C differential toxin A (09/27/2006 11:20 AM CDT) [facility] Method Time Signature Specimen Feces MISYS Description C difficile Negative for MISYS Toxin A Clostridium Toxin A Specimen Anatomical Collection Method Collection Time Receive d Time (Source) Location / / Volume Laterality 09/27/2006 11:20 09/27/2006 AM CDT 11:58 AM CDT Tristan Egan MD LAB - STOOLS ORDERABLES Performing Organization Address [facility] Phon e Number MISYS Ova and parasites (09/27/2006 11:20 AM CDT) Component Value Ref Test Analysis Performed At [facility] gist Range Method Time Signature Specimen Feces MISYS Description Micro Report FINAL [id number] MISYS Status Parasite Routine MISYS Routine parasitology exam negative Comment: Rare PMNs seen Specimen received in preservative Specimen Anatomical Collection Method Collection Time Receive d Time (Source) Location / / Volume Laterality 09/27/2006 11:20 09/27/2006 AM CDT 11:58 AM CDT Tristan Egan MD LAB - MICRO GENERAL ORDERABL ES Performing Organization Address [facility] Phon e Number MISYS Stool culture SSCE (09/27/2006 11:20 AM CDT) Component Value Ref Test Analysis Performed At [facility] gist Range Method Time Signature Specimen Feces MISYS Description Culture Micro No Salmonella, MISYS Shigella, Campylobacter or E coli 0:157 isolated. Micro Report FINAL [id number] MISYS Status Specimen Anatomical Collection Method Collection Time Receive d Time (Source) Location / / Volume Laterality 09/27/2006 11:20 09/27/2006 AM CDT 11:58 AM CDT Tristan Egan MD LAB - MICRO GENERAL ORDERABL ES Performing Organization Address [facility] Phon e Number MISYS Vitamin B12 [...] LAB - BLOOD ORDERABLES Performing Organization Address [facility] Phon e Number MISYS IgA (09/27/2006 9:50 AM CDT) athologist Signature IGA 198 70 - 380 MISYS mg/dL Specimen Anatomical Collection Method Collection Time Receive d Time (Source) Location / / Volume Laterality 09/27/2006 9:50 AM 7 CDT 10:00 AM CDT Liudmila Austin MD LAB - BLOOD ORDERABLES Performing Organization Address City/[facility]/ZIP Code Phon e Number MISYS Gliadin antibody [...] LAB - BLOOD ORDERABLES Performing Organization Address [facility] Phon e Number MISYS Tissue transglutaminase bharat IgA and IgG (09/27/2006 9:50 AM CDT) [facility] Method Time Signature Tissue <0.5 U/mL MISYS Transglutaminase Antibody IgA Comment: Interpretation: Negative Tissue Transglutaminase Bharat IgG 0.8 U/mL MISYS Comment: Interpretation: Negative Specimen Anatomical Collection Method Collection Time Receive d Time (Source) Location / / Volume Laterality 09/27/2006 9:50 AM 7 CDT 10:00 AM CDT Liudmila Austin MD LAB - BLOOD ORDERABLES Performing Organization Address City/[facility] Code Phon e Number MISYS TSH [...] [facility]/ZIP Code Phon e Number MISYS HIV 1 [...] LAB - BEAKER POCT Performing Organization Address City/[facility]/ZIP Code Phon e Number MISYS (ABNORMAL) Hemogram differential and platelet (09/27/2006 5:12 AM CDT) [facility] gist Method Time Signature MCV 99 78 [...] LAB - BLOOD ORDERABLES Performing Organization Address [facility] Phon e Number MISYS (ABNORMAL) Basic metabolic panel (09/27/2006 5:12 AM CDT) Analysis Performed At [facility] Time Signature Sodium 142 133 - 144 [...] Performing Organization Address City/[facility] Phon e Number MISYS (ABNORMAL) Hepatic panel (09/27/2006 5:12 AM CDT) Analysis Performed At [facility] Time Signature AST 111 (H) [...] Time MRSA-Contact IsolationComment: 0 04/26/2021 11:03 AM ARCHITECT MANAGER Infection erroneous documented as of this encounter
--- OUTSIDE RECORDS SUMMARY | 2022-03-26 21:38 | XMS_ITS | Encounter Summary ---
:1960 Author Organization [place] Address [facility] [place] [address] Care Team Providers Name Role Phone Unavailable Primary Care Provider Unavailable Encounter Details Date Type Department Care Team Description 09/27/2006 Consultation [facility] [facility] Albert Hawthorne MD [address] [facility] RET[facility] XXX [address] [place], [place] [address] [place] [address] [phone] (Wo rk) Social History Tobacco Use Types [...] a 45-year-old right-handed white male admitted to [facility] for further evaluation of lower extremity symptoms [...] SOCIAL HISTORY: He is employed in a [employer]. He denies any exposure to toxic [...] sign is mildly positive. On cerebellar testing, cyacyp-kq-oxgl is done well. On evaluation of his [...] MD MT: [id number] Name: ELIJAH BROWN Account: [id number] : 1960 Consult Date: 09/27/2006 Document: [id number] documented in this encounter Plan of Treatment Not on filedocumented as of this encounter Visit Diagnoses Not on filedocumented in this encounter Additional Health Concerns Infection Onset Date Last Indicated Resolved Time MRSA-Contact IsolationComment: 0 04/26/2021 11:03 AM PRODUCTION CLERKS SUPERVISOR Infection erroneous documented as of this encounter
--- OUTSIDE RECORDS SUMMARY | 2022-03-26 21:39 | XMS_ITS | Encounter Summary ---
:1960 Author Organization [place] Address [address] [place] [address] Care Team Providers Name Role Phone No Ref-Primary, Physician Primary Care Provider [phone] Encounter Details Date Type Department Care Team Description 07/05/2001 Historic Results [facility] Heart Unknown, [facility] ider [address] [place] [address] Social History Tobacco Use Types Packs/Day Years Used Date Smoking Tobacco: Never Assessed Sex Assigned at Date Recorded Not on file documented as of this encounter Plan of Treatment Not on filedocumented as of this encounter Procedures Procedure Name Priority Date/Time Associated Diagnosis Comme nts ECHO CARDIAC - HIM SCAN 07/05/2001 12:00 AM BIOMEDICAL ENGINEERING TECHNICIAN - ARCHIVE documented in this encounter Results ECHO CARDIAC - HIM SCAN - ARCHIVE (07/05/2001 12:00 AM BIOMEDICAL ENGINEERING TECHNICIAN) Anatomical Region Laterality Modality Echocardiography Specimen [...] Time MRSA-Contact IsolationComment: 0 04/26/2021 11:03 AM BIOMEDICAL ENGINEERING TECHNICIAN Infection erroneous documented as of this encounter Care Teams Screener Operator Relationship Specialty Start Date End Date No Ref-Primary, Physician PCP - General 07/03/14 12/03/21 documented as of this encounter
--- OUTSIDE RECORDS SUMMARY | 2022-03-26 21:39 | XMS_ITS | Encounter Summary ---
:1960 Author Organization [place] Address [address] [place] [address] Care Team Providers Name Role Phone Unavailable Primary Care Provider Unavailable Encounter Details Date Type Department Care Team Description 08/03/2006 GI Procedure [facility] Julius Welsh MD None Endoscopy [address] Alejandrina [address] [place] [address] [place] [address] [phone] Social History Tobacco Use Types Packs/Day Years [...] Component Value Ref Test Analysis Performed At [facility] Method Time Signature Upper GI [...] RADIOLOGY RESULTS COLONOSCOPY (08/03/2006 1:45 PM CDT) [facility] gist Method Time Signature COLONOSCOPY Endoscopy [...] oxygen saturations were monitored ?cont inuously. The [facility] [id number] #[id number] was introduced through ?the anus and advanced [...] Time MRSA-Contact IsolationComment: 0 04/26/2021 11:03 AM BATTALION FIRE CHIEF Infection erroneous documented as of this encounter
--- OUTSIDE RECORDS SUMMARY | 2022-03-26 21:39 | XMS_ITS | Encounter Summary ---
:1960 Author Organization [place] Address [address] [place] [address] Care Team Providers Name Role Phone Unavailable Primary Care Provider Unavailable Reason for Referral Specialty Diagnoses / Procedures Referred By Contact Refer red To Contact Tristan Egan ph, [place] [id number] [place] [phone] Referral ID Status Reason Start Date Expiration Date Visits Requ ested Visits Authorized Encounter Details Date Type Department Care Team Description 08/19/2004 Orders Only [facility] Tristan Egan SIS NOT YET Clinic SelmerMau Holden MD DEFINED (Primary Dx) [address] [facility] [address] [place] [phone] [phone] Social History Tobacco Use Types Packs/Day Years Used Date Smoking Tobacco: Never Assessed Sex Assigned at Date Recorded Not on file documented as of this encounter Plan of Treatment Not on filedocumented as of this encounter Procedures Procedure Name Priority Date/Time Associated Diagnosis Comme nts [facility] [place] [facility] Routine 08/19/2004 DIAGNOSIS NOT YET DEFINED documented in this encounter Results [facility]SULT [facility] (08/19/2004) Specimen (Source) Anatomical Location Collection [...] Time MRSA-Contact IsolationComment: 0 04/26/2021 11:03 AM INTER COM SERVICER Infection erroneous documented as of this encounter
--- OUTSIDE RECORDS SUMMARY | 2022-03-26 21:39 | XMS_ITS | Encounter Summary ---
:1960 Author Organization [place] Address [address] [place] [address] Care Team Providers Name Role Phone Unavailable Primary Care Provider Unavailable Reason for Visit Reason Comments Dizziness x 1 wk, diarrhea,cough, N&V, weakness, Encounter Details Date Type Department Care Team Description 07/31/2006 Office Visit [facility] Julius Welsh MD HYPERTENSION NOS; [facility] [place] [address] MIXED HYPERLIPIDEMIA; [address] [facility] [address] Social History Tobacco Use [...] CDT) athologist Signature CRP Cardiac 10.6 mg/L Health system LABS Comment: Reference Values: Low Risk: ? <1.0 mg/L Average Risk: ? 1.0-3.0 mg/L High Risk: ?>3.0 mg/L Acute Inflammation: >8.0 mg/L Specimen Anatomical Collection Method Collection Time Receive d Time (Source) Location / / Volume Laterality 07/31/2006 4:22 PM 200 7 4:24 CDT PM CDT Julius Welsh MD LABORATORY Performing Organization Address City/State/[facility] Code Phon e Number [facility] [address] [place], [place] [id number] [place] [address] LABS (ABNORMAL) CBC WITH PLATELETS, DIFF (07/31/2006 4:22 PM CDT) athologist Signature WBC 6.8 4.0 - 11.0 [place] [facility] 10e9/L [facility] RBC Count 2.06 (L) 4.4 - 5.9 [facility] 10e12/L [facility] Comment: Results confirmed by repeat patricia t Hemoglobin 6.5 (LL) 13.3 - 17.7 g/dL [facility] Comment: Results confirmed by repeat patricia t Hematocrit 20.1 (L) 40.0 - 53.0 % [facility] MCV 98 78 - [address] [facility] LAB MCH 31.6 26.5 - 33.0 pg [facility] MCHC 32.3 31.5 - 36.5 g/dL [facility] RDW 15.3 (H) 10.0 - 15.0 % [facility] Platelet Count 352 150 - 450 10e9/L [facility] Diff Method Automated Method [facility] % Lymphocytes 30 20 - 48 % [facility] LAB % Monocytes 8 0 - 12 % [facility] % Granulocytes 62 40 - 75 % [facility] Absolute Lymphocytes 2.1 0.8 - 5.3 10e9/L [facility] Absolute Monocytes 0.5 0.0 - 1.3 10e9/L [facility] Absolute Granulocytes 4.2 1.6 - 8.3 10e9/L F [facility] Specimen Anatomical Collection Method Collection Time Receive d Time (Source) Location / / Volume Laterality 07/31/2006 4:22 PM 7 4:24 CDT PM CDT Julius Welsh MD LABORATORY Performing Organization Address City/State/ZIP Code Phon e Number [facility] [address] [place] [address] [facility] TSH W/FREE T4 REFLEX (07/31/2006 4:22 PM CDT) athologist Signature TSH 3.66 0.4 - 5.0 [facility] mU/L [facility] Specimen Anatomical Collection Method Collection Time Receive d Time (Source) Location / / Volume Laterality 07/31/2006 4:22 PM 7 4:24 CDT PM CDT Julius Welsh MD LABORATORY Performing Organization Address City/[facility]/ZIP Code Phon e Number [facility] [address] [place] [address] [facility] LAB (ABNORMAL) HEMOGLOBIN A1C (07/31/2006 4:22 PM CDT) athologist Signature Hemoglobin A1C 6.8 (H) 4.3 - 6.0 [place] % [facility] Specimen Anatomical Collection Method Collection Time Receive d Time (Source) Location / / Volume Laterality 07/31/2006 4:22 PM 7 4:24 CDT PM CDT Julius Welsh MD LABORATORY Performing Organization Address City/[facility]/ZIP Code Phon e Number [facility] [address] [place] [address] [facility] LAB (ABNORMAL) AST (07/31/2006 4:22 PM CDT) P athologist Signature AST 149 (H) 0 - 55 U/L [facility] Specimen Anatomical Collection Method Collection Time Receive d Time (Source) Location / / Volume Laterality 07/31/2006 4:22 PM 7 4:24 CDT PM CDT Julius Welsh MD LABORATORY Performing Organization Address City/[facility]/ZIP Code Phon e Number [facility] [address] [facility] [place] [address] [phone] [facility] LAB (ABNORMAL) A.M.A. LIPID PANEL (07/31/2006 4:22 PM CDT) athologist Signature Cholesterol 267 (H) 0 - 200 [facility] mg/dL CLINIC LAB Comment: LDL Cholesterol [...] Triglycerides 492 (H) 0 - 150 mg/dL [facility] LAB Comment: Results confirmed by repeat patricia t HDL Cholesterol 16 (L) 40 - 110 mg/dL [facility] LDL Cholesterol Cannot estimate LDL 0 - 129 mg/dL [facility] Calculated when triglyceride CLINIC LAB exceeds 400 mg/dL VLDL-Cholesterol Cannot estimate VLDL 0 - 30 mg/dL [facility] when triglyceride CLINIC LAB exceeds 400 mg/dL. Cholesterol/HDL Ratio 16.4 (H) 0.0 - 5.0 [facility] Specimen Anatomical Collection Method Collection Time Receive d Time (Source) Location / / Volume Laterality 07/31/2006 4:22 PM 7 4:24 CDT PM CDT Julius Welsh MD LABORATORY Performing Organization Address City/[facility] Code Phon e Number [facility] [address] [facility] [place] [address] [phone] [facility] ALANINE AMINO (ALT) (SGPT) (07/31/2006 4:22 PM CDT) athologist Signature ALT 60 0 - 70 U/L [facility] Specimen Anatomical Collection Method Collection Time Receive d Time (Source) Location / / Volume Laterality 07/31/2006 4:22 PM 7 4:24 CDT PM CDT Julius Welsh MD LABORATORY Performing Organization Address [facility]/ZIP Code Phon e Number [facility] [address] [facility] [place] [address] [phone] [facility] (ABNORMAL) A.M.A. BASIC METABOLIC PANEL (07/31/2006 4:22 PM CDT) athologist Signature Sodium 132 (L) 133 - 144 [facility] mmol/L [facility] Potassium 3.8 3.4 - 5.3 [place] [facility] mmol/L CLINIC LAB Chloride 88 (L) 94 - 109 [place] [facility] mmol/L [facility]INIC LAB Carbon Dioxide 26 20 - 32 [place] [facility] mmol/L [facility] Anion Gap 18 (H) 6 - 17 [facility] mmol/L [facility] Glucose 114 (H) 60 - 110 [facility] mg/dL [facility] Urea Nitrogen 79 (H) 5 - 24 [facility] mg/dL [facility] LAB Comment: Results confirmed by repeat patricia t Creatinine 3.20 (H) 0.80 - 1.50 mg/dL [place] [facility] GFR Estimate 23 (L) >60 mL/min/1.7m2 [place] [facility] GFR Estimate If Black 27 (L) >60 mL/min/1.7m2 F [facility] Calcium 8.2 (L) 8.5 - 10.4 mg/dL [facility] Specimen Anatomical Collection Method Collection Time Receive d Time (Source) Location / / Volume Laterality 07/31/2006 4:22 PM 7 4:24 CDT PM CDT Julius Welsh MD LABORATORY Performing Organization Address City/[facility]/ZIP Code Phon e Number [address] [place] [address] [phone] [facility] documented in this encounter Visit Diagnoses Diagnosis Unspecified essential hypertension Mixed hyperlipidemia Dizziness and giddiness documented in this encounter Additional Health Concerns Infection Onset Date Last Indicated Resolved Time MRSA-Contact IsolationComment: 0 04/26/2021 11:03 AM DOUBLE END PRODUCTION GRINDER Infection erroneous documented as of this encounter
--- OUTSIDE RECORDS SUMMARY | 2022-03-26 21:39 | XMS_ITS | Encounter Summary ---
:1960 Author Organization [place] Address [address] [place] [address] Care Team Providers Name Role Phone Unavailable Primary Care Provider Unavailable Encounter Details Date Type Department Care Team Description 08/02/2006 Consultation Isaak Bustillos MD [place] [facility] [place] [address] [place], [place] [id number] (Wo rk) Social History Tobacco Use Types [...] MT: [id number] Name: SARAH BETH BROWN Account: [id number] : 1960 Consult Date: 08/02/2006 Document: [id number] documented in this encounter Plan of Treatment Not on filedocumented as of this encounter Visit Diagnoses Not on filedocumented in this encounter Additional Health Concerns Infection Onset Date Last Indicated Resolved Time MRSA-Contact IsolationComment: 0 04/26/2021 11:03 AM DISTILLING DEPARTMENT SUPERVISOR Infection erroneous documented as of this encounter
--- OUTSIDE RECORDS SUMMARY | 2022-03-26 21:39 | XMS_ITS | Encounter Summary ---
:1960 Author Organization [facility] Address [address] [place] [address] Care Team Providers Name Role Phone No Ref-Primary, Physician Primary Care Provider [phone] Juan Farias MD Unavailable Edilia Trejo APRN METER RECORD CLERK Unavailable Glendy vailable Juan Farias MD Unavailable Denise Connell-C Unavailable [phone] Edilia Trejo APRN METER RECORD CLERK Unavailable Glendy vailable Denise Connell-C Unavailable [phone] Juan Farias MD Primary Care Provider Dana Barry PA-C Unavailable [phone] Encounter Details Date Type Department Care Team Description 08/19/2004 Office Visit-[facility] Heart Unknown, Iva lockett MD [address] [address] Social History Tobacco Use Types [...] Physician: JEROME MORENO Referring Clinic: [facility] CURRENT DIAGNOSES 1. - Hypercholesterolemia, 272.0 [...] I had the opportunity to see Mr. 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; Sexual Activity - sexually active; Residence [...] Time MRSA-Contact IsolationComment: 0 04/26/2021 11:03 AM IMPLEMENTATION PROJECT MANAGER Infection erroneous MRSA 05/13/2021 05/13/2021 Rule Out C-difficile 12/06/2021 12/06/2021 12/07/2021 8:46 AM CDT documented as of this encounter Care Teams Fur Puller Relationship Specialty Start Date End Date No Ref-Primary, PCP - General 07/03/14 12/03/21 Physician Juan Farias MD PCP - General Cardiovascular Disease 12/04/[address] [place], [place] [address] Juan Farias MD Assigned Heart and 02/14/20 10/03/[address] Vascular Provider [address] [place], [place] [address] Maya, Assigned Heart and 10/04/20 Edilia Chapman APRN Vascular Provider METER RECORD CLERK NO INFO AVAILABLE 02/10/2022 Juan Farias MD Assigned Heart and 04/04/21 07/31/[address] Vascular Provider [address] [place] [address] Denise Connell Physician Manager Materials Management Cardiovascular Disease 08/12/21 MARIETTA Watson [address] [place] [address] Maya, Assigned Heart and 08/01/21 2 Edilia Chapman APRN Vascular Provider METER RECORD CLERK NO INFO AVAILABLE 02/10/2022 Denise Connell Assigned Heart and 08/22/21 01/14/22 MARIETTA Watson Vascular Provider [address] [place] [address] Dana Barry Assigned Heart and 01/15/22 MARIETTA Teague Vascular Provider [address] [place] [address] documented as of this encounter
--- OUTSIDE RECORDS SUMMARY | 2022-03-26 21:39 | XMS_ITS | Encounter Summary ---
:1960 Author Organization [place] Address [address] [place] [address] Care Team Providers Name Role Phone No Ref-Primary, Physician Primary Care Provider [phone] Juan Farias MD Unavailable Edilia Trejo APRN PHOTOGRAPHIC EDITOR Unavailable Glendy vailable Juan Farias MD Unavailable Denise Connell-C Unavailable [phone] Edilia Trejo APRN PHOTOGRAPHIC EDITOR Unavailable Gelndy vailable Denise Connell-C Unavailable [phone] Juan Farias MD Primary Care Provider Dana Barry PA-C Unavailable [phone] Encounter Details Date Type Department Care Team Description 08/17/2001 Office Visit-[facility] Heart Unknown, Iva lockett MD [address] [address] Social History Tobacco Use Types [...] Seat Belt Use - always; 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 Referring Physician: JAX Farias M.D. Electronically signed by [facility], Emr Data Conversion at 09/06/2013 4:44 AM CDT documented in this encounter Plan of Treatment Not on filedocumented as of this encounter Visit Diagnoses Not on filedocumented in this encounter Additional Health Concerns Infection Onset Date Last Indicated Resolved Time MRSA-Contact IsolationComment: 0 04/26/2021 11:03 AM BUNDLE COLLECTOR Infection erroneous MRSA 05/13/2021 05/13/2021 Rule Out C-difficile 12/06/2021 12/06/2021 12/07/2021 8:46 AM CDT documented as of this encounter Care Teams Auto Hauler Relationship Specialty Start Date End Date No Ref-Primary, PCP - General 07/03/14 12/03/21 Physician Juan Farias MD PCP - General Cardiovascular Disease 12/04/21 [address] [place] [address] Juan Farias MD Assigned Heart and 02/14/20 10/03/[address] Vascular Provider [address] [place] [address] Maya, Assigned Heart and 10/04/20 Edilia Chapman APRN Vascular Provider GUILHERME NO INFO AVAILABLE 02/10/2022 Juan Farias MD Assigned Heart and 04/04/21 07/31/21 [address] Vascular Provider [address] [place], [place] [address] Denise Connell Physician Glass Tinter Cardiovascular Disease 08/12/21 MARIETTA Watson [address] [place], [place] [address] Maya, Assigned Heart and 08/01/21 2 Edilia Chapman APRN Vascular Provider PHOTOGRAPHIC EDITOR NO INFO AVAILABLE 02/10/2022 Denise Connell Assigned Heart and 08/22/21 01/14/22 MARIETTA Watson Vascular Provider [address] [place], [place] [address] Dana Barry Assigned Heart and 01/15/22 MARIETTA Teague Vascular Provider [address] [place], [place] [address] documented as of this encounter
--- OUTSIDE RECORDS SUMMARY | 2022-03-26 21:39 | XMS_ITS | Encounter Summary ---
:1960 Author Organization [facility] Address [address] [place] [address] Care Team Providers Name Role Phone Unavailable Primary Care Provider Unavailable Encounter Details Date Type Department Care Team Description 08/03/2006 Orders Only [facility] Julius Welsh MD DIAGNOSIS NOT YET Clinic [place] [address] [place] [address] DEFINED (Primary Dx) [address] [place] [address] [phone] Social History Tobacco Use Types Packs/Day Years [...] PATHOLOGY (08/03/2006) Impressions MISYS - 08/03/2006 CASE: [id number] Patient Name: SARAH BETH BROWN MR#: [id number] Specimen #: [id number] Collected: 08/03/2006 Received: 08/03/2006 Reported: 08/04/2006 15:09 [...] is present. KARLEE/kalina 08-04-06 TESTING LAB LOCATION: [facility] [address], [place] ??[id number] COLLECTION SITE: Client: [facility] Location: MS3 (R) Electronically filed by Joan Jessica ??08/07/2006 ??8:41 AM Julius Welsh MD LABORATORY Performing Organization Address City/State/ZIP Code Phon e Number MISYS documented in this encounter Visit Diagnoses Diagnosis DIAGNOSIS NOT YET DEFINED - Primary documented in this encounter Additional Health Concerns Infection Onset Date Last Indicated Resolved Time MRSA-Contact IsolationComment: 0 04/26/2021 11:03 AM ADMINISTRATIVE OFFICER Infection erroneous documented as of this encounter
--- OUTSIDE RECORDS SUMMARY | 2022-03-26 21:39 | XMS_ITS | Encounter Summary ---
:1960 Author Organization [facility] Address [address] [place] [address] Care Team Providers Name Role Phone No Ref-Primary, Physician Primary Care Provider [phone] Juan Farias MD Unavailable Edilia Trejo APRN DECATIZER Unavailable Glendy vailable Juan Farias MD Unavailable Denise Connell-C Unavailable [phone] Edilia Trejo APRN DECATIZER Unavailable Glendy vailable Denise Connell-C Unavailable [phone] Juan Farias MD Primary Care Provider Dana Barry PA-C Unavailable [phone] Encounter Details Date Type Department Care Team Description 07/29/2005 Office Visit-[facility] Heart Unknown, Iva lockett MD [address] [address] Social History Tobacco Use [...] old Referring Physician: JEROME MORENO Referring Clinic: [facility] CURRENT DIAGNOSES 1. - Hypercholesterolemia, 272.0 [...] is regular. He has no cardiac murmurs. [facility]/[id number] PAST HISTORY Past Medical Illnesses: hypertension Infectious [...] Time MRSA-Contact IsolationComment: 0 04/26/2021 11:03 AM PHYSICAL THERAPY AID Infection erroneous MRSA 05/13/2021 05/13/2021 Rule Out C-difficile 12/06/2021 12/06/2021 12/07/2021 8:46 AM CDT documented as of this encounter Care Teams Grocery Carrier Relationship Specialty Start Date End Date No Ref-Primary, PCP - General 07/03/14 12/03/21 Physician Juan Farias MD PCP - General Cardiovascular Disease 12/04/[address] [place] [address] Juan Farias MD Assigned Heart and 02/14/20 10/03/[address] Vascular Provider [address] [place] [address] Maya, Assigned Heart and 10/04/20 Edilia Chapman APRN Vascular Provider DECATIZER NO INFO AVAILABLE 02/10/2022 Juan Farias MD Assigned Heart and 04/04/21 07/31/[address] Vascular Provider [address] [place] [address] Denise Connell Physician Medical Records Administrator Cardiovascular Disease 08/12/21 MARIETTA Watson [address] [place] [address] Maya Assigned Heart and 08/01/21 2 Edilia Chapman APRN Vascular Provider DECATIZER NO INFO AVAILABLE 02/10/2022 Denise Connell Assigned Heart and 08/22/21 01/14/22 MARIETTA Watson Vascular Provider [address] [place] [address] Dana Barry Assigned Heart and 01/15/22 MARIETTA Teague Vascular Provider [address] [place] [id number] documented as of this encounter
--- OUTSIDE RECORDS SUMMARY | 2022-03-26 21:39 | XMS_ITS | Encounter Summary ---
:1960 Author Organization [place] Address [address] [place] [address] Care Team Providers Name Role Phone Unavailable Primary Care Provider Unavailable Encounter Details Date Type Department Care Team Description 07/25/2005 Orders Only [facility] Tristan Egan SIS NOT YET Clinic Corea MD Navin DEFINED (Primary Dx) [address] [place] [address] [phone] Social History Tobacco Use Types Packs/Day Years [...] . documented in this encounter Results TRIGLYCERIDES [52943.000] (07/25/2005) athologist Signature Triglycerides 95 mg/dL [facility] Tristan Egan MD LABORATORY Performing Organization Address City/State/ZIP Code Phon e Number [facility] LDL-CHOLESTEROL [19259.001] (07/25/2005) athologist Signature LDL Cholesterol 111 mg/dL [facility] Calculated Tristan Egan MD LABORATORY Performing Organization Address [facility] Phon e Number [facility] HDL CHOLESTEROL [95871.000] (07/25/2005) P athologist Signature HDL Cholesterol 93 mg/dL [facility] Tristan Egan MD LABORATORY Performing Organization Address [facility] Phon e Number MISYS (ABNORMAL) CHOLESTEROL [85241.000] (07/25/2005) athologist Signature Cholesterol 223 (A) 115 - 199 [place] mg/dL Tristan Egan MD LABORATORY Performing Organization Address [facility] Phon e Number MISYS documented in this encounter Visit Diagnoses Diagnosis DIAGNOSIS NOT YET DEFINED - Primary documented in this encounter Additional Health Concerns Infection Onset Date Last Indicated Resolved Time MRSA-Contact IsolationComment: 0 04/26/2021 11:03 AM COUNTERSINKER Infection erroneous documented as of this encounter
--- OUTSIDE RECORDS SUMMARY | 2022-03-26 21:39 | XMS_ITS | Encounter Summary ---
:1960 Author Organization [facility] Address [address] [place] [address] Care Team Providers Name Role Phone No Ref-Primary, Physician Primary Care Provider [phone] Juan Farias MD Unavailable Edilia Trejo APRN CONSULTING SERVICES PROJECT MANAGER Unavailable Glendy vailable Juan Farias MD Unavailable Denise Connell-C Unavailable [phone] Edilia Trejo APRN CONSULTING SERVICES PROJECT MANAGER Unavailable Glendy vailable Denise Connell-C Unavailable [phone] Juan Farias MD Primary Care Provider Dana Barry PA-C Unavailable [phone] Encounter Details Date Type Department Care Team Description 08/19/2003 Office Visit-[facility] Heart Unknown, Iva lockett MD [address] [address] Social History Tobacco Use Types Packs/Day Years Used Date Smoking Tobacco: Never Assessed Sex Assigned at Date Recorded Not on file documented as of this encounter Progress Notes Unknown, DoctorMD - 08/21/2003 2:20 PM CDT Progress Note Created by: Juan Farias M.D. DATE: 08/19/2003 SARAH BETH BROWN DATE OF : 1960 AGE: [age] years old Referring Physician: JEROME MORENO Referring Clinic: [facility] CURRENT DIAGNOSES 1. 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; Sexual Activity - sexually active; Residence - lives with female partner; Place of - [place]; Hours Worked - 40 hours per week [...] MRSA-Contact IsolationComment: 0 04/26/2021 11:03 AM SERVICE STATION OPERATOR Infection erroneous MRSA 05/13/2021 05/13/2021 Rule Out C-difficile 12/06/2021 12/06/2021 12/07/2021 8:46 AM CDT documented as of this encounter Care Teams Pail Bailer Relationship Specialty Start Date End Date No Ref-Primary, PCP - General 07/03/14 12/03/21 Physician Juan Farias MD PCP - General Cardiovascular Disease 12/04/[address] [place] [address] Juan Farias MD Assigned Heart and 02/14/20 10/03/[address] Vascular Provider [address] [place] [address] Maya, Assigned Heart and 10/04/20 Edilia Chapman APRN Vascular Provider CONSULTING SERVICES PROJECT MANAGER NO INFO AVAILABLE 02/10/2022 Juan Farias MD Assigned Heart and 04/04/21 07/31/[address] Vascular Provider [address] [place] [address] Denise Connell Physician Roto Rooter Operator Cardiovascular Disease 08/12/21 MARIETTA Watson [address] [place] [address] Maya, Assigned Heart and 08/01/21 2 Edilia Chapman APRN Vascular Provider CONSULTING SERVICES PROJECT MANAGER NO INFO AVAILABLE 02/10/2022 Denise Connell Assigned Heart and 08/22/21 01/14/22 MARIETTA Watson Vascular Provider [address] [place] [address] Dana Barry Assigned Heart and 01/15/22 MARIETTA Teague Vascular Provider [address] [place] [address] documented as of this encounter
--- OUTSIDE RECORDS SUMMARY | 2022-03-26 21:39 | XMS_ITS | Encounter Summary ---
:1960 Author Organization [facility] Address [address] [place] [address] Care Team Providers Name Role Phone Unavailable [...] as of this encounter Progress Notes Interface, Assembly Machine Tool Setter - 07/12/2010 5:40 PM CDT General Information General Information <R> How to be addressed - Kayden <R> Hand Leather Trimmer Needed - No Source of reliable information - Patient Patient Contact Information <R> pharmacy salesperson to notify: - Selina Wells Sig other <R> Phone 1: - [phone] Cell Phone: - [phone] Advance Directive Advanced Health Care Directive Information <R> Do you have a Advance Health Care Directive? - No Can patient name a Surrogate Decision Maker? (Not legally binding) - Yes Surrogate Name: - Selina Wells Surrogate Home Phone Number: - [phone] <R> Would you like to receive information [...] Care Values/Beliefs/Spiritual Care F: Enedina: Does culture/spirituality/ pentecostal play an important part in your life? - Anglican <R> Would you like pastoral care/clergy/enlisted advisor notified? - Does not wish to [...] Time MRSA-Contact IsolationComment: 0 04/26/2021 11:03 AM HEALTHCARE ADMINISTRATION INTERN Infection erroneous documented as of this encounter
--- OUTSIDE RECORDS SUMMARY | 2022-03-26 21:39 | XMS_ITS | Encounter Summary ---
:1960 Author Organization [place] Address [address] [place] [address] Care Team Providers Name Role Phone Unavailable Primary Care Provider Unavailable Reason for Referral (Routine) - Closed Specialty Diagnoses / Procedures Referred By Contact Refer red To Contact Diagnoses Anemia, unspecified Parminder Wiseman MD [facility] [address] [place] [address] Referral ID Status Reason Start Date Expiration Date Visits V isits Requested Authorized [id number] Closed Consult Only 08/01/2006 01/31/2007 1 1 (Routine) - Closed Specialty Diagnoses / Procedures Referred By Contact Refer red To Contact Diagnoses Anemia, unspecified Parminder Wiseman MD [facility] [address] [place] [address] Referral ID Status Reason Start Date Expiration Date Visits V isits Requested Authorized [id number] Closed Consult Only 08/01/2006 05/03/2007 1 1 Reason for Visit Reason Comments RECHECK f/u abnormal lab results on 07/31/2006 Encounter Details Date Type Department Care Team Description 08/01/2006 Office Visit [facility] Parminder Wiseman (Primary Dx); [facility] [place] Kavon Rabago MD DIZZINESS AND GIDDINESS; [address] [facility] GRACE ALVAREZ MELENA, BLOOD IN STOOL [place], [place] [address] [address] [phone] YAMINI Garcia [place], [place] [address] (Wo rk) Social History [...] 325 MG OR, IMMUNOS OCCULT BLOOD, CONSULT [facility], BLOOD SMEAR, PERIPHERAL, INTERPRETATION, PHYSICIAN W/ [...] which will need evaluation. Parminder Wiseman MD [facility] documented in this encounter Nursing Notes [...] REPORT documented in this encounter Results CONSULT [facility] (08/30/2006) Narrative This result has an attachment that is no t available. Parminder Wiseman MD REFERRAL (ABNORMAL) CBC WITH PLATELETS, DIFF (08/01/2006 12:16 PM CDT) P athologist Signature WBC 9.2 4.0 - 11.0 [place] 10e9/L [facility] RBC Count 2.07 (L) 4.4 - 5.9 [place] 10e12/L [facility] Hemoglobin 6.4 (LL) 13.3 - 17.7 [place] g/dL [facility] Comment: Results confirmed by repeat patricia t Hematocrit 19.9 (L) 40.0 - 53.0 % [facility] MCV 96 78 - 100 fl [facility] MCH 30.9 26.5 - 33.0 pg [facility] MCHC 32.2 31.5 - 36.5 [facility] g/dL [facility] RDW 14.4 10.0 - 15.0 % [facility] Platelet Count 337 150 - [address] LAB % Neutrophils 62 40 - 75 % [facility] % Lymphocytes 24 20 - 48 % [facility] % Monocytes 11 0 - 12 % [facility] % Eosinophils 3 0 - 6 % [facility] Absolute Neutrophil 5.7 1.6 - 8.3 [facility] 10e9[facility] Absolute Lymphocytes 2.2 0.8 - 5.3 [facility] 10e9[facility] Absolute Monocytes 1.0 0.0 - 1.3 [place] [facility] 10e9/[facility] Absolute Eosinophils 0.3 0.0 - 0.7 [facility] 10e9[facility] Anisocytosis Slight [facility] Basophilic Stipling Present [facility] RBC Morphology Slide to be reviewed by F [facility] Pathologist [facility] Platelet Estimate Normal [facility] Diff Method Manual Differential [facility] CORRECTED ON 08/01 AT 1945: PREVIOUSLY REPORTED Manual Method [facility]OSPITAL LAB Specimen Anatomical Collection Method Collection Time Receive d Time (Source) Location / / Volume Laterality 08/01/2006 12:16 08/01/2006 PM CDT 12:18 PM CDT Parminder Wiseman MD LABORATORY Performing Organization Address City/[facility]/ZIP Code Phon e Number M [facility] [address] [place], [place] [address] [facility] (ABNORMAL) IMMUNOS OCCULT BLOOD (08/01/2006 12:15 PM CDT) [facility] Signature Occult Blood Positive (A) NEG [place] Slide 1 [facility] Slide 1 Date 08/01/06 [facility] Occult Blood NOT DONE NEG [place] Slide 2 [facility] Slide 2 Date NOT DONE [facility] Occult Blood NOT DONE NEG [place] Slide 3 [facility] Slide 3 Date NOT DONE [facility] Specimen Anatomical Collection Method Collection Time Receive d Time (Source) Location / / Volume Laterality 08/01/2006 12:15 08/01/2006 PM CDT 12:17 PM CDT Parminder Wiseman MD LABORATORY Performing Organization Address City/[facility]/ZIP Code Phon e Number [facility] [address] [place] [address] [facility] BLOOD SMEAR, PERIPHERAL, INTERPRETATION, PHYSICIAN W/ WRITTEN REPORT (08/01/2006 12:15 PM CDT) [facility] Signature Blood Slide to be [place] Morphology reviewed by [facility] Smear Pathologist [facility] Specimen Anatomical Collection Method Collection Time Receive d Time (Source) Location / / Volume Laterality 08/01/2006 12:15 08/01/2006 PM CDT 12:17 PM CDT Parminder Wiseman MD LABORATORY Performing Organization Address City/State/ZIP Code Phon e Number M [facility] [address] [place], [place] [address] [facility] (ABNORMAL) RETICULOCYTE COUNT (08/01/2006 12:15 PM CDT) [facility] Time Signature % Retic 2.6 (H) 0.5 - 2.0 [place] % [facility] Absolute 50.4 25 - 95 [place] Retic 10e9/L [facility] Method Automated [facility] Specimen Anatomical Collection Method Collection Time Receive d Time (Source) Location / / Volume Laterality 08/01/2006 12:15 08/01/2006 PM CDT 12:17 PM CDT Parminder Wiseman MD LABORATORY Performing Organization Address City/State/ZIP Code Phon e Number [facility] [address] [place], [place] [address] [facility] (ABNORMAL) IRON & TIBC (08/01/2006 12:15 PM CDT) athologist Signature Iron 119 35 - 180 [facility] ug/dL [facility] Iron Binding 242 240 - 430 [place] Cap ug/dL [facility] Iron Saturation 49 (H) 15 - 46 % [facility] Specimen Anatomical Collection Method Collection Time Receive d Time (Source) Location / / Volume Laterality 08/01/2006 12:15 08/01/2006 PM CDT 12:17 PM CDT Parminder Wiseman MD LABORATORY Performing Organization Address City/State/ZIP Code Phon e Number [facility] [address] [address] [facility] LAB (ABNORMAL) FERRITIN (08/01/2006 12:15 PM CDT) athologist Signature Ferritin 1671 (H) 20 - 300 [facility] ng/mL [facility] Specimen Anatomical Collection Method Collection Time Receive d Time (Source) Location / / Volume Laterality 08/01/2006 12:15 08/01/2006 PM CDT 12:17 PM CDT Parminder Wiseman MD LABORATORY Performing Organization Address City/State/ZIP Code Phon e Number [facility] [address] [place] [address] [facility] BLOOD SMEAR, PERIPHERAL, INTERPRETATION, PHYSICIAN W/ WRITTEN REPORT (08/01/2006 12:00 AM CDT) Component Value Ref Test Analysis Performed At [facility] gist Range Method Time Signature Copath Report Patient Name: SARAH BETH BROWN MR#: [id number] Specimen #: [id number] Collected: 08/01/2006 Received: 08/02/2006 Reported: 08/02/2006 16:00 Ordering Phy(s): PARMINDER WISEMAN TEST(S): Morphology Exam ([facility]) FINAL DIAGNOSIS: Peripheral blood - Normochromic, [...] seen; occasional fine basophilic sti ppling; no Boyle-Beacon bodies seen; rouleaux appears increased. PLATELETS: ??The [...] ?? (0-2) JKW/kalina 08-02-06 TESTING LAB LOCATION: [address] ??[address] COLLECTION SITE: Client: ??[facility] Location: ??CRFP (R) Specimen (Source) Anatomical Collection [...] MRSA-Contact IsolationComment: 0 04/26/2021 11:03 AM CLAIMS DIRECTOR Infection erroneous documented as of this encounter
--- OUTSIDE RECORDS SUMMARY | 2022-03-26 21:39 | XMS_ITS | Encounter Summary ---
:1960 Author Organization [place] Address [address] [place] [address] Care Team Providers Name Role Phone Unavailable Primary Care Provider Unavailable Encounter Details Date Type Department Care Team Description 08/03/2006 Results Only [facility] Results MD Fina [facility] [address] [place], [place] [address] (Wo rk) Social History [...] Procedure Name Priority Date/Time Associated Diagnosis Comme [facility] CT ABDOMEN W/O Routine 08/03/2006 11:22 PM [...] Time MRSA-Contact IsolationComment: 0 04/26/2021 11:03 AM PROMOTIONS FIRM ACCOUNTS MANAGER Infection erroneous documented as of this encounter
--- OUTSIDE RECORDS SUMMARY | 2022-03-26 21:39 | XMS_ITS | Encounter Summary ---
:1960 Author Organization [place] Address [address] [place] [address] Care Team Providers Name Role Phone Unavailable Primary Care Provider Unavailable Encounter Details Date Type Department Care Team Description 08/03/[address] [facility] Nany Austin [place] [address] [place], [place] CLINIC [address] [phone] [place], [place] [address] (Wo rk) Social History [...] LAB - BLOOD ORDERABLES Performing Organization Address City/[facility] Phon e Number [facility] (ABNORMAL) Calcium ionized (08/03/2006 7:55 PM CDT) athologist Signature Calcium 3.5 (L) 4.4 - 5.2 [facility] Ionized mg/dL Specimen Anatomical Collection Method Collection Time Receive d Time (Source) Location / / Volume Laterality 08/03/2006 7:55 PM 7 8:00 CDT PM CDT Liudmila Austin MD LAB - BLOOD ORDERABLES Performing Organization Address [facility] Phon e Number [facility] Transfuse RBC (08/03/2006 11:18 AM CDT) [facility] Method Time Signature RED BLOOD CELL Order M[facility] ORDER received Comment: Check for Allocated/OK to Umanzor sfuse units Specimen Anatomical Collection Method Collection Time Receive d Time (Source) Location / / Volume Laterality 08/03/2006 11:18 08/03/2006 AM CDT 11:22 AM CDT Liudmila Austin MD LAB - BLOOD BANK PRODUCT O RDER Performing Organization Address [facility] Phon e Number [facility] INR (08/03/2006 10:45 AM CDT) athologist Signature INR 1.01 0.86 - 1.14 [facility] Specimen Anatomical Collection Method Collection Time Receive d Time (Source) Location / / Volume Laterality 08/03/2006 10:45 08/03/2006 AM CDT 10:25 AM CDT Parminder Cade PA-C LAB - BLOOD ORDERABLES Performing Organization Address [facility] Phon e Number [facility] Transfuse RBC (08/03/2006 10:41 AM CDT) [facility] gist Method Time Signature RED BLOOD CELL Order MISYS ORDER received Comment: Check for Allocated/OK to Umanzor sfuse units Specimen Anatomical Collection Method Collection Time Receive d Time (Source) Location / / Volume Laterality 08/03/2006 10:41 08/03/2006 6:37 AM CDT AM CDT Julius Welsh MD LAB - BLOOD BANK PRODUCT ORD ER Performing Organization Address [facility] Phon e Number [facility] (ABNORMAL) Lipase (08/03/2006 [...] Organization Address [facility] Phon e Number [facility] (ABNORMAL) Amylase (08/03/2006 9:55 AM CDT) P athologist Signature Amylase 166 (H) 30 - 110 [facility] U/L Specimen Anatomical Collection Method Collection Time Receive d Time (Source) Location / / Volume Laterality 08/03/2006 9:55 AM 7 CDT 10:00 AM CDT Liudmila Austin MD LAB - BLOOD ORDERABLES Performing Organization Address [facility] Phon e Number [facility] (ABNORMAL) Hemogram differential [...] Absolute Lymphocytes 1.4 0.8 - 5.3 10e9/L CT SYS Absolute Monocytes 0.8 0.0 - 1.3 10e9/L M[facility]Y S Absolute Eosinophils 0.3 0.0 - 0.7 10e9/L CT SYS Absolute Basophils 0.0 0.0 - 0.2 [...] read back jessica COMBS(RN) ON MS3 @ 0798 ON 08.03.06 KA Anion Gap 13 6 - 17 mmol/L [facility] Specimen (Source) Anatomical Collection Method Collection Time Re ceived Time Location / / Volume Laterality 08/03/2006 5:55 AM 7 CDT Julius Welsh MD LAB - BLOOD ORDERABLES Performing Organization Address City/State/ZIP Code Phon e Number [facility] Histopathology (08/03/2006 12:00 AM CDT) Component Value Ref Test Analysis Performed At [facility] gist Range Method Time Signature Copath CASE: [id number] ^ COPATH Report Patient Name: SARAH BETH BROWN MR#: [id number] Specimen #: [id number] Collected: 08/03/2006 Received: 08/03/2006 Reported: 08/04/2006 15:09 [...] TESTING LAB LOCATION: [facility] [address] [place], [place] ??[address] COLLECTION SITE: Client: [facility] Location: MS3 (R) Specimen (Source) Anatomical Collection [...] Time MRSA-Contact IsolationComment: 0 04/26/2021 11:03 AM FLUORESCENT SOLUTION MIXER Infection erroneous documented as of this encounter
--- OUTSIDE RECORDS SUMMARY | 2022-03-26 21:39 | XMS_ITS | Encounter Summary ---
:1960 Author Organization [place] Address [address] [place] [address] Care Team Providers Name Role Phone Unavailable Primary Care Provider Unavailable Encounter Details Date Type Department Care Team Description 08/02/2006 Historic Results [facility] Tabitha Welsh MD [address] [phone] (W ork) [address] [phone] Social History Tobacco Use Types Packs/Day Years [...] Results Transfuse RBC (08/02/2006 6:00 PM CDT) [facility] Method Time Signature RED BLOOD CELL Order MISYS ORDER received Comment: Check for Allocated/OK to Umanzor sfuse units Specimen Anatomical Collection Method Collection Time Receive d Time (Source) Location / / Volume Laterality 08/02/2006 6:00 PM 7 5:44 CDT PM CDT Julius Welsh MD LAB - BLOOD BANK PRODUCT ORD ER Performing Organization Address [facility] Phon e Number M[facility] Troponin I (08/02/2006 5:58 PM CDT) P athologist Signature Troponin I <0.04 0.00 - 0.40 [facility] ug/L Specimen Anatomical Collection Method Collection Time Receive d Time (Source) Location / / Volume Laterality 08/02/2006 5:58 PM 7 5:44 CDT PM CDT Julius Welsh MD LAB - BLOOD ORDERABLES Performing Organization Address [facility] Phon e Number MISYS ABO/Rh type and screen (08/02/2006 5:58 PM CDT) [facility] gist Method Time Signature ABO AB MISYS RH(D) Pos MISYS Antibody Neg MISYS Screen Units Ordered 6 MISYS Crossmatch Red Blood MISYS Cells Specimen 08/05/2006 MIS[facility] Expires Unit Number [id number] MISYS Blood Red Blood MISYS Component Type Cells Leukocyte Reduced Status of Unit ISSUED,FINAL MISYS Unit Number [id number] MISYS Blood Red Blood MISYS Component Type Cells Leukocyte Reduced Status of Unit ISSUED,FINAL MISYS Unit Number [id number] MISYS Blood Red Blood MISYS Component Type Cells Leukocyte Reduced Status of Unit ISSUED,FINAL MISYS Unit Number [id number] MISYS Blood Red Blood MISYS Component Type Cells Leukocyte Reduced Status of Unit ISSUED,FINAL MISYS Unit Number [id number] MISYS Blood Red Blood MISYS Component Type Cells Leukocyte Reduced Status of Unit REL FROM MISYS ALLOC Unit Number [id number] MISYS Blood Red Blood MISYS Component Type Cells Leukocyte Reduced Status of Unit REL FROM MISYS ALLOC Specimen Anatomical Collection Method Collection Time Receive d Time (Source) Location / / Volume Laterality 08/02/2006 5:58 PM 7 5:44 CDT PM CDT Julius Welsh MD LAB - BLOOD BANK TEST ORDER Performing Organization Address City/[facility] Phon e Number MISYS documented in this encounter Visit Diagnoses Not on filedocumented in this encounter Additional Health Concerns Infection Onset Date Last Indicated Resolved Time MRSA-Contact IsolationComment: 0 04/26/2021 11:03 AM DRYERMAN/WOMAN Infection erroneous documented as of this encounter
--- OUTSIDE RECORDS SUMMARY | 2022-03-26 21:39 | XMS_ITS | Encounter Summary ---
:1960 Author Organization [place] Address [address] [place] [address] Care Team Providers Name Role Phone Unavailable Primary Care Provider Unavailable Encounter Details Date Type Department Care Team Description 08/02/2006 Historic Results [facility] Tabitha Welsh MD [address] [phone] (W ork) [address] [phone] Social History Tobacco Use Types Packs/Day Years [...] RESULTS Atrial Rate 82 BPM RADIOLOGY RESULTS ID Interval 132 ms RADIOLOGY RESULTS QRS Duration 94 ms RADIOLOGY RESULTS QT 382 ms RADIOLOGY RESULTS QTc 446 ms RADIOLOGY RESULTS P [place] 33 degrees RADIOLOGY RESULTS R AXIS 1 degrees RADIOLOGY RESULTS T [place] 30 degrees RADIOLOGY RESULTS Interpretation Sinus rhythm [...] Time MRSA-Contact IsolationComment: 0 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
--- OUTSIDE RECORDS SUMMARY | 2022-03-26 21:39 | XMS_ITS | Encounter Summary ---
:1960 Author Organization [place] Address [address] [place] [address] Care Team Providers Name Role Phone Unavailable Primary Care Provider Unavailable Reason for Visit Reason Comments Trauma eye injury Encounter Details Date Type Department Care Team Description 04/22/2003 Office Visit [facility] Tristan EganUS ION FACE/SCALP/NCK; Clinic [place] MD Navin [facility] [address] [address] [phone] Social History Tobacco Use Types Packs/Day Years Used Date Smoking Tobacco: Never Assessed Sex Assigned at Date Recorded Not on file documented as of this encounter Last Filed Vital Signs Vital Sign Reading Time Taken Comments Blood Pressure 120/78 04/22/2003 11:00 AM CIRCULATION MAN Pulse - - Temperature - - Respiratory Rate - - Oxygen Saturation - - Inhaled Oxygen Concentration - - Weight - - Height - - Body Mass Index - - documented in this encounter Progress Notes 04/22/2003 11:00 AM CIRCULATION MAN Puncture wound near eye with echymosis of [...] Time MRSA-Contact IsolationComment: 0 04/26/2021 11:03 AM CIRCULATION MAN Infection erroneous documented as of this encounter
--- OUTSIDE RECORDS SUMMARY | 2022-03-26 21:39 | XMS_ITS | Encounter Summary ---
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
--- OUTSIDE RECORDS SUMMARY | 2022-03-26 21:39 | XMS_ITS | Encounter Summary ---
:1960 Author Organization [place] Address [address] [place] [address] Care Team Providers Name Role Phone No Ref-Primary, Physician Primary Care Provider [phone] Juan Farias MD Unavailable Edilia Trejo APRN COMMISSIONING AGENT Unavailable Glendy vailable Juan Farias MD Unavailable Denise Connell-C Unavailable [phone] Edilia Trejo APRN COMMISSIONING AGENT Unavailable Glendy vailable Denise Connell-C Unavailable [phone] Juan Farias MD Primary Care Provider Dana Barry PA-C Unavailable [phone] Encounter Details Date Type Department Care Team Description 08/21/2002 Office Visit-[facility] Heart Unknown, Iva lockett MD [address] [address] Social History Tobacco Use Types [...] Seat Belt Use - always; 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; Sexual Activity - sexually active; Residence [...] Time MRSA-Contact IsolationComment: 0 04/26/2021 11:03 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 MRSA 05/13/2021 05/13/2021 Rule Out C-difficile 12/06/2021 12/06/2021 12/07/2021 8:46 AM CDT documented as of this encounter Care Teams Blender Snuff Relationship Specialty Start Date End Date No Ref-Primary, PCP - General 07/03/14 12/03/21 Physician Juan Farias MD PCP - General Cardiovascular Disease 12/04/[address] [place], [place] [address] Juan Farias MD Assigned Heart and 02/14/20 10/03/[address] Vascular Provider [address] [place], [place] [address] Maya, Assigned Heart and 10/04/20 Edilia Chapman APRN Vascular Provider COMMISSIONING AGENT NO INFO AVAILABLE 02/10/2022 Juan Farias MD Assigned Heart and 04/04/21 07/31/[address] Vascular Provider [address] [place] [address] Denise Connell Physician Geophysical Laboratory Supervisor Cardiovascular Disease 08/12/21 MARIETTA Watson [address] [place] [address] Maya, Assigned Heart and 08/01/21 2 Edilia Chapman APRN Vascular Provider COMMISSIONING AGENT NO INFO AVAILABLE 02/10/2022 Denise Connell Assigned Heart and 08/22/21 01/14/22 MARIETTA Watson Vascular Provider [address] [place] [address] Dana Barry Assigned Heart and 01/15/22 MARIETTA Teague Vascular Provider [address] [place] [id number] documented as of this encounter
--- OUTSIDE RECORDS SUMMARY | 2022-03-26 21:39 | XMS_ITS | Encounter Summary ---
:1960 Author Organization [place] Address [address] [place] [address] Care Team Providers Name Role Phone Unavailable Primary Care Provider Unavailable Encounter Details Date Type Department Care Team Description 08/02/2006 Discharge Summary [facility] Amna Austin (Credit Advisor) Clinic [place] MD Fina [address] [facility] [address] [phone] [place] [address] (Wo rk) Social History Tobacco Use Types [...] MT: [id number] Name: SARAH BETH BROWN Account: [id number] : 1960 Admit Date: [id number] Discharge Date: 08/04/2006 Document: [id number] documented in this encounter Plan of Treatment Not on filedocumented as of this encounter Visit Diagnoses Not on filedocumented in this encounter Additional Health Concerns Infection Onset Date Last Indicated Resolved Time MRSA-Contact IsolationComment: 0 04/26/2021 11:03 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
--- OUTSIDE RECORDS SUMMARY | 2022-03-26 21:39 | XMS_ITS | Clinical Summary ---
:1960 Author Organization [employer] Address [address] [address] Phone Care Team Providers Name Role Phone [...] Phone Address Typ e / Group Dates [place] [id number] 2021-Prese [phone] [place]PT [place] NISHA NISHA nt 11 HUMAN SERV/[employer] CLAIMS PROCESSING [address] [address] [place] [address] (Home) [place] [address] Advance Directives For more information, please contact: [phone] Latest Code Status on File Code Status Date Activated Date Inactivated Comments Full Code 09/22/2021 11:21 AM 09/26/2021 5:16 PM
--- OUTSIDE RECORDS SUMMARY | 2022-03-26 21:39 | XMS_ITS | Encounter Summary ---
:1960 Author Organization [facility] Address [address] [place] [id number] Care Team Providers Name Role Phone Unavailable Primary Care Provider Unavailable Reason for Visit Reason Comments RECHECK PT feels very weak, his feet feel like they're asleep- he's had diarrhea all day and little or nothing to eat- he did take his iron pill with orange juice and some ensure Encounter Details Date Type Department Care Team Description 08/02/2006 Office Visit [facility] Julius Welsh MD ANEMIA NOS; [facility] [address] [place] [address] MIXED HYPERLIPIDEMIA; [address] [place] [address] [place] [facility] [place], [place] [phone] Social History Tobacco Use Types Packs/Day Years [...] wishes to accept offer of admission into [facility]. Histories Updated through 08.02.2006: Past Medical [...] A/P: 1- Subacute GI bleed. Admmit to [facility] Med/Surg. T&C x 2 units and [...] kg/(m^2).. BP completed using cuff size regular aN Allred CMA documented in this encounter Plan of Treatment Not on filedocumented as of this encounter Visit Diagnoses Diagnosis Anemia, unspecified Mixed hyperlipidemia Unspecified essential hypertension documented in this encounter Additional Health Concerns Infection Onset Date Last Indicated Resolved Time MRSA-Contact IsolationComment: 0 04/26/2021 11:03 AM [facility] Infection erroneous documented as of this encounter
--- OUTSIDE RECORDS SUMMARY | 2022-03-26 21:40 | XMS_ITS | Encounter Summary ---
:1960 Author Organization [facility] [facility] Address [address] [address] Phone Care Team Providers Name Role Phone [...]
--- OUTSIDE RECORDS SUMMARY | 2022-03-26 21:40 | XMS_ITS | Encounter Summary ---
:1960 Author Organization [employer] Address [address] [place] [address] Phone Care Team Providers Name Role Phone Unavailable Primary Care Provider Unavailable Reason for Referral Office Visit (Routine) - Pending Review Specialty Diagnoses / Procedures Referred By Contact Refer red To Contact Diagnoses Hospital discharge follow-up Miquel Mckeon MD [address] [place] [address] Referral ID Status Reason Start Date Expiration Date Visits V isits Requested Authorized [id number] Pending 09/26/2021 03/28/2022 1 1 Review Question Answer Follow-up With: Primary Care Referral Type: Hospital Follow-up Follow-up Time Frame: 3 Days Diagnosis supporting this Referral: Hospital discharge follow-up [[id number]] Reason for Visit Reason Comments Seizures Withdrawal- Alcohol Auth/Cert Specialty Diagnoses / Procedures Referred By Contact Refer red To Contact Diagnoses Hypokalemia Hypomagnesemia Hypophosphatemia Tachycardia Alcohol withdrawal seizure with complication (HCC) Alcohol withdrawal seizure without complication (HCC) [facility] [address] [place] [address] [place] [address] Referral ID Status Reason Start Date Expiration Date Visits Requ ested Visits Authorized [id number] 1 1 Encounter Details Date Type Department Care Team Description 09/21/2021 - Hospital Encounter [facility] Dago Henriquez DO [address] [facility] [place] [id number] Alcohol withdrawal seizure with complica tion (HCC) (Primary Dx); 09/26/2021 [facility] Miquel Mckeon MD [address] [place] [address] [id number] Tachycardia; [address] [place] [address] N Liam Rodriguez MD [address] [place] [address] [id number] Hypomagnesemia; [place] [address] Hypokalemia; [phone] Hypophosphatemi a; Alcohol withdra wal seizure without [...] CD consult He will be discharged from [facility] to home Discharge Medications: Current Discharge [...] your medicine. Do not use any medicines, uxko-tbo-powyppa drugs, vitamins, herbs, or food supplements without [...] smoke. Smoking cessation support is available at [employer] (1-861-702-YNAO(5254) or [employer]). Juan Pablo Brown does not smoke. We are concerned about your emotional health after discharge. 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 YT Chandu Gifford RN - 09/23/2021 12:35 PM CDT Patient's friend, Curry, updated as he was the only contact for the patient and patient remains confused at this time. Curry reported to contract technical writer that the patient did not want [...] Mckeon MD - 09/23/2021 10:10 AM CDT [facility] Juan Pablo Brown is a [...] Mckeon MD - 09/22/2021 9:23 AM CDT [facility] Course Juan Pablo Brown [...] ADMISSION NOTE Liam Rodriguez MD Juan Pablo [facility] 60 year old male Admission Date [...] cranial nerves 2-12 intact, strength 5/5 with rim roller setter strength and dorsi and plantar flexion of [...] QT 352 ms QTc 489 ms P Paradise 10 degrees R Paradise -13 degrees T Paradise 33 degrees Narrative Confirming Doc Sinus tachycardia [...] real-time polymerase chain reaction (PCR) on the Floq GeneXpert System. Results should be used in [...] for this test can be found at: https://www.fda.gov/medical-devices/ptuicvyuu-ifxdgzghzu-oiacjkq-devices/emergen kk-rrn-huolaamplfutua Assessment AND Plan: Active Hospital Problems Alcohol [...] bit of time to remember, then stated [place]. Patient states the program offers 3 days per week of outpatient. Hegoes on to say that he has experienced 10 years of sobriety in the past, so I know how to stay sober. Patient is recommended to let his program in [place] know about his recent alcohol use and severealcohol withdrawal complications. Patient is also recommended to attend 12 step support group meetings. Patient verbally complied regarding reporting his status to the outpatient program but states he is not interested in AA. Patient also accepted my [facility] contact information. I also did a program search in [place], finding one outpatient program called [facility] that does provide outpatient chemical dependency services, so hopefully patient is enrolled in the program, given the fact he is currently in [place]. Kenzie Kohli PharmD - 09/22/2021 3:10 AM CDT PERSONAL FIN[employer]CIAL [employer]ANNER Medication History obtained by: Kenzie Kohli PharmD [...] put pt on the waitlist Ernst Black [facility] - 09/22/2021 1:15 AM CDT Called Stat Doc Ernst Black [facility] - 09/22/2021 1:14 AM CDT [facility] is on a case by case, and they have no ICU beds Ernst Black [facility] - 09/22/2021 1:04 AM CDT Called MAURICIO [...] 60 year old male who presents to [facility] for Patient presents with: Seizures Withdrawal- Alcohol [...] a 60 year old male presenting to [facility] with: Patient presents with: Seizures Withdrawal- Alcohol [...] will be placed on a hold at [facility] as we are presently out of [...] for help at home ??? Collaboration with Illustrator Set/Case Management Problem: Skin Goal: Skin integrity within [...] Jackson RN - 09/26/2021 12:44 PM CDT 44399-268 Phenobarbital Oral Tablet Uses This medicine is [...] medicines you take. Include both prescription and vpbo-xgp-ouhujtw medicines. Also tell them about any vitamins, [...] medicine, contactyour doctor immediately. Do not take Troutman's wort while on this medicine. Ask your [...] you have any questions about this medicine. [email or web address] IMPORTANT NOTE: This document tells you briefly how to take your medicine, but it does not tell you all there is to know about it. Your doctor or pharmacist may give you other documents about your medicine. Please talk to them if you have any questions. Always follow their advice. There is a more complete description of this medicine available in Kosovan. Scan this code on your smartphone or tablet or use the web address below. You can also ask your pharmacist for a printout. If you have any questions, please ask your pharmacist. ?? 2020 [employer]. ?? [phone] The [employer]. All rights reserved. This information is not intended as a substitute for professional medical care. Always follow your healthcare professional's instructions. Patient Education - Ana M Jackson RN - 09/26/2021 12:44 PM CDT 76472-992 Vitamin B1 (thiamine) Oral Tablet Uses For vitamin replacement. Instructions This medicine may be taken with or without food. Store at room temperature in a dry place. Do not keep in the bathroom. Keep the medicine away from heat and light. Please tell your doctor and pharmacist about all the medicines you take. Include both prescription and etxb-ovp-ytyzmcu medicines. Also tell them about any vitamins, [...] you have any questions about this medicine. [email or web address] IMPORTANT NOTE: This document tells you briefly how to take your medicine, but it does not tell you all there is to know about it. Your doctor or pharmacist may give you other documents about your medicine. Please talk to them if you have any questions. Always follow their advice. There is a more complete description of this medicine available in Kosovan. Scan this code on your smartphone or tablet or use the web address below. You can also ask your pharmacist for a printout. If you have any questions, please ask your pharmacist. ?? 2020 [employer]. ?? [phone] The [employer]. All rights reserved. This information is not intended as a substitute for professional medical care. Always follow your healthcare professional's instructions. Patient Education - Ana M Jackson RN - 09/26/2021 12:43 PM CDT [address] Pantoprazole Delayed Release Oral Tablet Protonix Uses [...] medicines you take. Include both prescription and dfol-vfy-agdqowf medicines. Also tell them about any vitamins, [...] this medicine. Do not treatthe diarrhea with vnxy-egw-ecotbhd diarrhea medicine. Tell the doctor or pharmacist [...] you have any questions about this medicine. [email or web address] IMPORTANT NOTE: This document tells you briefly how to take your medicine, but it does not tell you all there is to know about it. Your doctor or pharmacist may give you other documents about your medicine. Please talk to them if you have any questions. Always follow their advice. There is a more complete description of this medicine available in Kosovan. Scan this code on your smartphone or tablet or use the web address below. You can also ask your pharmacist for a printout. If you have any questions, please ask your pharmacist. ?? 2020 [employer]. ?? [phone] The [employer]. All rights reserved. This information is not intended as a substitute for professional medical care. Always follow your healthcare professional's instructions. Patient Education - Ana M Jackson Chi RN - 09/26/2021 12:43 PM CDT 55706-918 Folic Acid Oral Tablet Folacin Uses This [...] medicines you take. Include both prescription and jwdj-yuc-vuyhuzl medicines. Also tell them about any vitamins, [...] complete description of this medicine available in Kosovan. Scan this code on your smartphone or tablet or use the web address below. You can also ask your pharmacist for a printout. If you have any questions, please ask your pharmacist. ?? 2020 [employer]. ?? [phone] The [employer]. All rights reserved. This information is not intended as a substitute for professional medical care. Always follow your healthcare professional's instructions. Patient Education - Ana M Jackson RN - 09/26/2021 12:42 PM CDT 6183-6673 Amlodipine Oral Tablet Norvas Uses This medicine [...] medicines you take. Include both prescription and hrra-ywa-plabfup medicines. Also tell them about any vitamins, [...] you have any questions about this medicine. [email or web address] IMPORTANT NOTE: This document tells you briefly how to take your medicine, but it does not tell you all there is to know about it. Your doctor or pharmacist may give you other documents about your medicine. Please talk to them if you have any questions. Always follow their advice. There is a more complete description of this medicine available in Kosovan. Scan this code on your smartphone or tablet or use the web address below. You can also ask your pharmacist for a printout. If you have any questions, please ask your pharmacist. ?? 2020 [employer] ?? [phone] The [employer]. All rights reserved. This information is not intended as a substitute for professional medical care. Always follow your healthcare professional's instructions. Patient Education - Ana M Jackson RN - 09/26/2021 12:42 PM CDT 95918 Understanding Tachycardia The heart has an electrical [...] New symptoms Last Reviewed Date: 2021 ?? 2402-1025 The [employer]. All rights reserved. This information is not intended as a substitute for professional medical care. Always follow your healthcare professional's instructions. Patient Education - Ana M Jackson RN - 09/26/2021 12:41 PM CDT 83669 Addiction: Getting Help Admitting that you have [...] provider can help you. So can a tandem mill roller, academic services professional, or rabbi who is trained in substance abuse counseling. Friends and family may also help once you are working with experts. Together you can make changes needed for success. This can help you to have a positive and rewarding life. To learn more ?? [facility] [employer], ?? National [place] on Alcoholism and Drug Dependence (NCADD), Last Reviewed Date: 2019 ?? [phone] The [employer]. All rights reserved. This information is not intended as a substitute for professional medical care. Always follow your healthcare professional's instructions. Patient Education - Ana M Jackson RN - 09/26/2021 12:41 PM CDT [id number] Alcohol Withdrawal Alcohol withdrawal often starts after [...] Repeated vomiting Last Reviewed Date: 2021 ?? 2422-6036 The [employer]. All rights reserved. This information is not [...] centered goal for this shift:: rest (09/25/21 4139). Evaluation of patient goal progress *Met. Care [...] for help at home ??? Collaboration with Illustrator Set/Case Management Problem: Musculoskeletal Goal: Musculoskeletal system functioning [...] discharge barriers Patient/family/caregiver participation promotion Collaboration with Illustrator Set/Case Management Problem: Musculoskeletal Goal: Musculoskeletal system functioning [...] for high fall risk Utilize bed/chair alarm [place] socks/Within arm's reach Mobilize patient Utilize assistive [...] discharge barriers Patient/family/caregiver participation promotion Collaboration with Illustrator Set/Case Management Problem: Musculoskeletal Goal: Musculoskeletal system functioning [...] Lucero Demarco, OZZIE) Fall Risk Care Plan/Interventions: [place] socks/Within arm's reach Utilize bed/chair alarm 1:1 [...] ??? Patient/family/caregiver participation promotion ??? Collaboration with Illustrator Set/Case Management Problem: Musculoskeletal Goal: Musculoskeletal system functioning [...] (Taken 09/22/20212056) Fall Risk Care Plan/Interventions: ??? [place] socks/Within arm's reach ??? Utilize bed/chair alarm Patient Goals: The patient centered goal for this shift:: sleep (09/22/212057). Evaluation of patient goal progress met. Care Plan - Juan Alcala RN - 09/22/2021 8:01 PM CDT Problem: Discharge Planning Goal: No barriers to discharge Outcome: Progressing Flowsheets (Taken 09/22/20212000) Discharge Planning Care Plan: ??? Identify discharge barriers ??? Patient/family/caregiver participation promotion ??? Collaboration with Illustrator Set/Case Management IVF running. CIWA assessments. IVPB phenobarbital [...] [facility] mEq/L 9:[address] [facility] Specimen Anatomical Collection Method / Collection Time Recei rehana Time (Source) Location / Volume Laterality Blood BLOOD SPECIMEN / Venipuncture / 09/24/2021 9:39 2021 9:44 Unknown Unknown PM CDT PM CDT Miquel Mckeon MD EC CHEMISTRY ORDERABLES Performing Organization Address City/[facility] Phon e Number [address] [address] LABORATORY MAGNESIUM (09/24/2021 6:17 AM CDT) athologist Signature Magnesium 1.8 1.8 - 2.7 09/24/2021 [facility] mg/dL 8:[address] [facility] Specimen Anatomical Collection Method / Collection Time Recei rehana Time (Source) Location / Volume Laterality Blood BLOOD SPECIMEN / Venipuncture / 09/24/2021 6:17 2021 6:24 Unknown Unknown AM CDT AM CDT Miquel Mckeon MD EC CHEMISTRY ORDERABLES Performing Organization Address City/State/[facility] Phon e Number [address] [address] LABORATORY (ABNORMAL) MAGNESIUM (09/23/2021 8:20 AM CDT) athologist Signature Magnesium 1.4 (L) 1.8 - 2.7 09/23/[address] [facility] mg/dL 8:[address] [facility] Specimen Anatomical Collection Method / Collection Time Recei rehana Time (Source) Location / Volume Laterality Blood BLOOD SPECIMEN / Venipuncture / 09/23/2021 8:20 2021 8:24 Unknown Unknown AM CDT AM T Miquel Mckeon MD EC CHEMISTRY ORDERABLES Performing Organization Address City/State/ZIP Code Phon e Number [facility] [address] [place] [address] LABORATORY (ABNORMAL) RENAL FUNCTION PANEL (09/23/2021 8:20 AM CDT) Analysis Performed At Patho logist Time Signature Sodium 138 134 - 143 09/23/2021 ST. mEq/L 8:49 AM [facility] Potassium 3.2 (L) 3.4 - 5.1 09/23/2021 ST. mEq/L 8:49 AM [facility] Chloride 101 99 - 110 09/23/2021 ST. mEq/L 8:49 AM [facility] Carbon Dioxide 26 19 - 29 09/23/2021 ST. mEq/L 8:49 AM [facility] Anion Gap 11.0 3.0 - 15.0 09/23/2021 ST. mEq/L 8:49 AM [facility] Glucose 107 (H) 70 - 99 09/23/2021 ST. mg/dL 8:49 AM [facility] Creatinine 0.77 0.70 - 09/23/2021 ST. 1.20 mg/dL 8:49 AM [facility] Glomerular >60 >60 09/23/2021 ST. Filtration Rate mL/min/1.7 8:49 AM [facility] 3 *2 [facility] Comment: Complications of CKD and risk o f cardiovascular disease increase when GFR is below 60ml.min/1.73m2. A persistently re duced GFR is a specific indication of Chronic Kidney Disease. The eGFR calculation has not been validated in patients >70yrs. Blood Urea Nitrogen 4 (L) 5 - 24 mg/dL 09/23/2021 8:49 A M [facility] Albumin 3.0 (L) 3.5 - 5.0 g/dL 09/23/2021 8:[address] [facility] Phosphorus 1.8 (L) 2.5 - 4.6 mg/dL 09/23/2021 8:49 AM [facility] Calcium 7.6 (L) 8.4 - 10.5 09/23/2021 8:[address] [facility] mg/dL [facility] Specimen Anatomical Collection Method / Collection [...] Organization Address City/State/ZIP Code Phon e Number [place] [phone] [place] [address] LABORATORY (ABNORMAL) HEMOGRAM (09/23/2021 8:19 AM CDT) P athologist Signature WBC 5.4 3.2 - 11.0 09/23/2021 [facility] 10*9/L 8:30 AM [facility] RBC 3.98 (L) 4.14 - 5.76 09/23/2021 [facility] 10*12/L 8:30 AM [facility] HGB 12.8 (L) 12.9 - 16.9 09/23/2021 [facility] g/dL 8:30 AM [facility] HCT 36.3 (L) 38.4 - 49.7 09/23/2021 [facility] % 8:30 AM [facility] MCV 91.2 81.4 - 99.0 09/23/[address] fL 8:30 AM [facility] MCH 32.2 26.7 - 33.1 09/23/2021 [facility] pg 8:30 AM [facility] MCHC 35.3 31.6 - 35.5 09/23/2021 [facility] g/dL 8:30 AM [facility] RDW 13.0 11.3 - 14.6 09/23/2021 [facility] % 8:30 AM [facility] PLT 161 130 - 375 09/23/2021 [facility] 10*9/L 8:30 AM [facility] Specimen Anatomical Collection Method / Collection Time Recei rehana Time (Source) Location / Volume Laterality Blood BLOOD SPECIMEN / Venipuncture / 09/23/2021 8:19 2021 8:24 Unknown Unknown AM CDT AM CDT Miquel Mckeon MD EC HEMATOLOGY ORDERABLES Performing Organization Address City/State/ZIP Code Phon e Number [facility] [address] [place] [address] LABORATORY (ABNORMAL) COMPREHENSIVE METABOLIC PANEL (09/22/2021 5:59 AM CDT) P athologist Signature Sodium 136 134 - 143 09/22/2021 ST. mEq/L 6:30 AM [facility] Potassium 3.5 3.4 - 5.1 09/22/2021 ST. mEq/L 6:30 AM [facility] Chloride 96 (L) 99 - 110 09/22/2021 ST. mEq/L 6:30 AM [facility] Carbon Dioxide 25 19 - 29 09/22/2021 ST. mEq/L 6:30 AM [facility] Anion Gap 15.0 3.0 - 15.0 09/22/2021 ST. mEq/L 6:30 AM [facility] Blood Urea 8 5 - 24 09/22/2021 ST. Nitrogen mg/dL 6:30 AM [facility] Creatinine 0.89 0.70 - 09/22/2021 ST. 1.20 mg/dL 6:30 AM [facility] Glomerular >60 >60 09/22/2021 [facility]. Filtration Rate mL/min/1.7 6:30 AM [facility] 3 m*2 [facility] Comment: Complications of CKD and risk o f cardiovascular disease increase when GFR is below 60ml.min/1.73m2. A persistently re duced GFR is a specific indication of Chronic Kidney Disease. The eGFR calculation has not been validated in patients >70yrs. Calcium 8.2 (L) 8.4 - 10.5 09/22/2021 6:[address] [facility] [facility] mg/dL [facility] Glucose 141 (H) 70 - 99 mg/dL 09/22/2021 6:30 AM [facility] Protein, Total 7.0 6.0 - 8.0 09/22/2021 6:[address] [facility] g/dL [facility] Albumin 3.7 3.5 - 5.0 09/22/2021 6:30 AM STDianna JANG [facility] g/dL [facility] Alkaline Phosphatase 63 40 - 150 IU/L 09/22/2021 6:30 AM [facility] Aspartate 159 (H) 10 - 40 IU/L 09/22/2021 6:30 AM STDianna RAM[facility] Aminotransferase [facility] Alanine Aminotransferase 66 (H) 6 - 40 IU/L 09/22/2021 6: 30 AM [facility] Bilirubin, Total 2.3 (H) 0.2 - 1.2 09/22/2021 6:30 AM S [facility] mg/dL [facility] Specimen Anatomical Collection Method / Collection [...] MD EC CHEMISTRY ORDERABLES Performing Organization Address City/[facility]/ZIP Code Phon e Number [facility] [address] [place] [address] LABORATORY MAGNESIUM (09/22/2021 5:59 AM CDT) athologist Signature Magnesium 2.7 1.8 - 2.7 09/22/2021 [facility] mg/dL 6:48 AM CDT [facility] Specimen Anatomical Collection Method / Collection Time Recei rehana Time (Source) Location / Volume Laterality Blood BLOOD SPECIMEN / Venipuncture / 09/22/2021 5:59 2021 6:02 Unknown Unknown AM CDT AM CDT Liam Rodriguez MD EC CHEMISTRY ORDERABLES Performing Organization Address City/[facility] Code Phon e Number [facility] [address] [place] [address] LABORATORY RAPID SARS-COV-2 RNA (COVID-19), MOLECULAR DETECTION (09/22/2021 12:45 AM CDT) [facility] gist Method Time Signature SARS-CoV-2 Negative Negative/Not 09/22/2021 ST. RNA Detected 1:29 AM CDT [facility] (COVID-19) [facility] Comment: SARS-CoV-2 (COVID-19) target nu cleic [...] real-time polymerase chain reaction (PCR) on the Floq GeneXpert System. Results should be used in [...] for this test can be found at: https://www.fda.gov/medical-devices/ekocmcwfv-uswhlwlvtl-tbnaclt-devices/emergen fs-wzl-ewovofjrwogmgp Abdirahman Henriquez DO EC MICROBIOLOGY - GENERAL OR DERABLES Performing Organization Address City/[facility]/ZIP Code Phon e Number [place] [address] LABORATORY EKG 12-LEAD (09/21/2021 11:23 PM CDT) P athologist Signature Ventricular Rate 116 BPM MUSE Atrial Rate 116 BPM MUSE P-R Interval 130 ms MUSE QRS Duration 90 ms MUSE QT 352 ms MUSE QTc 489 ms MUSE P Paradise 10 degrees MUSE R Paradise -13 degrees MUSE T Paradise 33 degrees MUSE Specimen (Source) Anatomical Collection [...] DO IP ECG ORDERABLES Performing Organization Address City/[facility]/ZIP Code Phon e Number MUSE (ABNORMAL) ALCOHOL (09/21/2021 11:22 PM CDT) P athologist Signature Alcohol 29.0 (H) <=10.0 09/21/[address] [facility] mg/dL 11:[address] [facility] Specimen Anatomical Collection Method / Collection Time Recei rehana Time (Source) Location / Volume Laterality Blood BLOOD SPECIMEN / Venipuncture / 09/21/2021 11:22 09/21 Unknown Unknown PM CDT 11:25 PM CDT Abdirahman Henriquez DO EC CHEMISTRY ORDERABLES Performing Organization Address [facility] [place] Phon e Number [facility] [address] [address] LABORATORY (ABNORMAL) MAGNESIUM (09/21/2021 11:22 PM CDT) P athologist Signature Magnesium 0.8 (LL) 1.8 - 2.7 09/22/[address] [facility] mg/dL 12:[address] [facility] LABORATORY Specimen Anatomical Collection Method / Collection Time Recei rehana Time (Source) Location / Volume Laterality Blood BLOOD SPECIMEN / Venipuncture / 09/21/2021 11:22 09/21 Unknown Unknown PM CDT 11:25 PM CDT Abdirahman Rigginsas DO EC CHEMISTRY ORDERABLES Performing Organization Address [facility] [place] Phon e Number [facility] [address] [address] LABORATORY (ABNORMAL) PHOSPHORUS (09/21/2021 11:22 PM CDT) P athologist Signature Phosphorus 2.2 (L) 2.5 - 4.6 09/21/[address] [facility] mg/dL 11:[address] [facility] LABORATORY Specimen Anatomical Collection Method / Collection Time Recei rehana Time (Source) Location / Volume Laterality Blood BLOOD SPECIMEN / Venipuncture / 09/21/2021 11:22 09/21 Unknown Unknown PM CDT 11:25 PM CDT Abdirahmna T Henriquez DO EC CHEMISTRY ORDERABLES Performing Organization Address City/[facility] Phon e Number [facility] [address] [address] LABORATORY (ABNORMAL) HEMOGRAM/DIFFERENTIAL (09/21/2021 11:22 PM CDT) Patholo gist Method Time Signature WBC 7.6 3.2 - 09/21/2021 ST. 11.0 11:28 PM [facility] 10*9/L [facility] LABORATORY RBC 3.85 (L) 4.14 - 09/21/[address] 5.76 11:28 PM [facility] 10*12/L [facility] LABORATORY HGB 12.3 (L) 12.9 - 09/21/[address] 16.9 g/dL 11:28 PM [facility] LABORATORY HCT 34.9 (L) 38.4 - 09/21/[address] 49.7 % 11:28 PM [facility] MCV 90.6 81.4 - 09/21/2021 ST. 99.0 fL 11:28 PM [facility] MCH 31.9 26.7 - 09/21/[address]21 ST[address] 33.1 pg 11:28 PM [facility] MCHC 35.2 31.6 - 09/21/2021 ST. 35.5 g/dL 11:28 PM [facility] RDW 13.0 11.3 - 09/21/[address] 14.6 % 11:28 PM [facility] PLT 163 130 - 375 09/21/2021 ST. 10*9/L 11:28 PM [facility] Neutrophils % 75.8 % 09/21/2021 ST. 11:28 PM [facility] Lymphocytes % 8.7 % 09/21/2021 ST. 11:28 PM [facility] Monocytes % 11.5 % 09/21/2021 ST. 11:28 PM [facility] Eosinophils % 2.8 % 09/21/2021 ST. 11:28 PM [facility] Basophils % 0.7 % 09/21/2021 ST. 11:28 PM [facility] Immature 0.5 % 09/21/2021 ST. Granulocytes % 11:28 PM [facility] Neutrophils 5.7 1.5 - 7.6 09/21/2021 ST. Absolute 10*9/L 11:28 PM [facility] Lymphocytes 0.7 (L) 0.8 - 3.3 09/21/2021 ST. Absolute 10*9/L 11:28 PM [facility] Monocytes 0.9 0.2 - 0.9 09/21/2021 ST. Absolute 10*9/L 11:28 PM [facility] Eosinophils 0.2 0.0 - 0.4 09/21/2021 ST. Absolute 10*9/L 11:28 PM [facility] Basophils 0.1 0.0 - 0.1 09/21/2021 ST. Absolute 10*9/L 11:28 PM [facility] Immature 0.04 0.00 - 09/21/[address]21 ST[address] Granulocytes 0.06 11:28 PM [facility] Absolute 10*9/L [facility] LAB[facility]ATORY Specimen Anatomical Collection Method / Collection Time Recei rehana Time (Source) Location / Volume Laterality Blood BLOOD SPECIMEN / Venipuncture / 09/21/2021 11:22 09/21 Unknown Unknown PM CDT 11:25 PM CDT Abdirahman SCHULTZ HEMATOLOGY ORDERABLES Performing Organization Address City/State/ZIP Code Phon e Number [facility] [address] [place] [address] LABORATORY (ABNORMAL) BASIC METABOLIC PANEL (09/21/2021 11:22 PM CDT) [facility] Method Time Signature Sodium 135 134 - 143 09/21/2021 ST. mEq/L 11:46 PM [facility] Potassium 3.2 (L) 3.4 - 5.1 09/21/2021 ST. mEq/L 11:46 PM [facility] Chloride 93 (L) 99 - 110 09/21/2021 ST. mEq/L 11:46 PM [facility] Carbon Dioxide 16 (L) 19 - 29 09/21/2021 ST. mEq/L 11:46 PM [facility] Anion Gap 26.0 (H) 3.0 - 15.0 09/21/2021 ST. mEq/L 11:46 PM [facility] Blood Urea 10 5 - 24 09/21/2021 ST. Nitrogen mg/dL 11:46 PM [facility] Creatinine 0.98 0.70 - 09/21/2021 ST. 1.20 mg/dL 11:46 PM [facility] Glomerular >60 >60 09/21/2021 ST. Filtration Rate mL/min/1.7 11:46 PM [facility] 3 m*2 [facility] Comment: Complications of CKD and risk o f cardiovascular disease increase when GFR is below 60ml.min/1.73m2. A persistently re duced GFR is a specific indication of Chronic Kidney Disease. The eGFR calculation has not been validated in patients >70yrs. Calcium 8.4 8.4 - 10.5 mg/dL 09/21/2021 11:46 PM [facility] Glucose 120 (H) 70 - 99 mg/dL 09/21/2021 11:46 PM [facility] Specimen Anatomical Collection Method / [...] Number [facility] [address] [place] [address] LABORATORY documented in this encounter Visit Diagnoses [...] mg = 4 mg/kg ? 70.7 kg [place] weight), Intravenous, at 208.8 mL/hr, ONCE, 1 dose, On Mon09/22/21 at 2100 PHENobarbital Sodium (LUMINAL) New Bag 09/23/2021 1:03 AM CDT 286 mg 208.8 mL/hr 286 mg in sodium chloride 0.9% (NS) IVPB 286 mg (rounded from 282.8 mg = 4 mg/kg ? 70.7 kg [place] weight), Intravenous, at 208.8 mL/hr, ONCE, 1 dose, On Na 09/23/21 at 0000 PHENobarbital Sodium (LUMINAL) New Bag 09/22/2021 6:20 PM CDT 494 mg 215.2 mL/hr 494 mg in sodium chloride 0.9% (NS) IVPB 494 mg (rounded from 494.9 mg = 7 mg/kg ? 70.7 kg [place] weight), Intravenous, at 215.2 mL/hr, ONCE, 1 [...]
== END 2022-02-12 12:24 | disposition home or self-care (01) ==
LOC: AMB 03-26 21:29
PROVIDERS: Visit Provider Family Medicine
DX: S09.90XA Unspecified injury of head, initial encounter (principal); W01.198A Fall on same level from slipping, tripping and stumbling with subsequent striking against other object, initial encounter; Y92.481 Parking lot as the place of occurrence of the external cause
CPT/HCPCS: A0425; A0427

== ENCOUNTER 2022-02-12 12:50 | Emergency (ER) | payer MEDICAID, SELFPAY ==
[2022-02-12 12:52] VITALS: BP 131/101; PULSE 94; RESP 16; TEMP 37; O2SAT 92; BMI 28.0
--- NOTE | 2022-02-12 13:03 | CRLHL7_ITS ---
For Patients: As a result of the Cures Act, medical imaging exams and procedure reports are released immediately into your electronic medical record. You may view this report before your referring provider. If you have questions, please contact your health care provider. HISTORY: Trauma. TECHNIQUE: Noncontrast CT facial bones. COMPARISON: 07/20/2021. FINDINGS: No acute frontal bone fracture. Nasal bones are intact. No acute orbital fracture. No retrobulbar hematoma/post septal orbital soft tissue swelling. There is left periorbital and left cheek soft tissue swelling and hemorrhage. The zygomatic arches are intact. No acute maxillary fracture. The mandible is not fully included in the field of view. Mild mucosal thickening involving several ethmoid air cells. Small amount of fluid within the right maxillary sinus posterior inferiorly, unchanged. IMPRESSION: 1. Soft tissue swelling and soft tissue hemorrhage involving the left cheek and lateral periorbital region. 2. No acute fracture. 3. No retrobulbar hematoma or postseptal orbital soft tissue swelling. Dictated by Justino Velasquez MD @ 02/12/2022 2:22:14 PM Please note that all CT scans at this facility use dose modulation, iterative reconstruction, and/or weight-based dosing when appropriate to reduce radiation dose to as low as reasonably achievable. Dictated by: Justino Velasquez MD @ 02/12/2022 14:22:21 (Electronically Signed)
--- NOTE | 2022-02-12 13:03 | CRLHL7_ITS ---
For Patients: As a result of the Cures Act, medical imaging exams and procedure reports are released immediately into your electronic medical record. You may view this report before your referring provider. If you have questions, please contact your health care provider. HISTORY: Trauma. TECHNIQUE: Three views of the left elbow. COMPARISON: No prior. FINDINGS: There is prominent soft tissue swelling about the lateral aspect of the elbow. There is no acute fracture or dislocation. No definite posterior fat pad sign. Tiny olecranon spur. No radiopaque foreign body or soft tissue gas. IMPRESSION: 1. Prominent lateral soft tissue swelling. 2. No acute fracture or malalignment. Dictated by Justino Velasquez MD @ 02/12/2022 1:50:42 PM Dictated by: Justino Velasquez MD @ 02/12/2022 13:50:48 (Electronically Signed)
--- NOTE | 2022-02-12 13:15 | ED.GENADULT ---
HPI - General Adult General Chief complaint: Fall/Minor Trauma Stated complaint: Fall Time Seen by Provider: 02/12/22 12:52 Source: patient Mode of arrival: EMS Limitations: no limitations History of Present Illness HPI narrative: 61 year male coming in today after falling at work. Patient states that he slipped on some rocks that were on the pavement and he fell forward hitting his face on the pavement as well as his left elbow. He is complaining of left elbow pain but states that the face is not bothering him. He denies any headache, blurry vision. He denies any nausea or vomiting. She denies any ringing in his ears or muffled hearing. He denies any pain to the inside of the mouth. He denies any neck or back pain. He is not on any blood thinners. Patient has a history of alcohol use disorder, hypertension. Related Data Home Medications Medication Instructions Recorded Confirmed amlodipine 10 mg tablet mg 02/12/22 metoprolol succinate 50 mg mg PO 02/12/22 tablet,extended release 24 hr Allergies Allergy/AdvReac Type Severity Reaction Status Date / Time lisinopril Allergy Verified 02/12/22 12:55 Review of Systems Status of ROS: Reports: 10 or more systems reviewed and unremarkable except as noted in History and below [facility] Social History Non-prescribed substance use: denies use Exam Narrative: Exam Narrative: Well-nourished well-developed patient in no acute distress. Alert and oriented. Answers questions appropriately. Patient speaks very loudly. GCS is 15. He is not having any difficulty breathing or speaking. HEENT: Normocephalic. Pupils are equally round reactive to light. Extraocular muscles are intact. Conjunctivae are moist without any icterus noted. Moist mucous membranes. Posterior pharynx is normal. Neck is soft without any lymphadenopathy or thyromegaly. No masses are appreciated. No tenderness to palpation of the cervical spine. Full range of motion of the neck without any tenderness. He does have a ecchymosis and swelling around the left lateral orbit and over the left cheekbone. Small areas of her superficial abrasions noted. He has no crepitus around the orbit, nose or zygomatic arch. He can open and close mouth out difficulty. There is no hemotympanum noted. No trauma to the inside of the mouth. Teeth are intact. Cardiovascular: Heart is regular rate and rhythm S1 and S2 are present without any murmurs. Lungs: Clear to auscultation bilaterally no wheezes rhonchi or rales are appreciated. Patient takes deep breaths without any discomfort. Abdomen: Soft and nontender nondistended with normal bowel sounds. No guarding or rebound. No masses or organomegaly appreciated. Extremities: Bilateral lower extremities are without edema. Normal DP and PT pulses. Patient has a significant swelling over the lateral elbow on the left with ecchymosis. The area is tender. He however has full range of motion with flexion extension at the elbow. He has swelling and ecchymosis over the wrist as well however this is nontender any falls full range of motion at the wrist. Superficial abrasions noted of the hand and wrist. He has no tenderness at the hand he moves all fingers without difficulty. Hand behavioral health worker is normal and symmetric. Skin: Well perfused without any obvious rashes. Back has normal appearance without any tenderness or step-offs noted over the thoracic and lumbar spine. Const: Vital Signs, click to edit/add: Vital Signs - 24 hr 02/12/22 12:52 Temperature 98.6 F Pulse Rate [Left P ulse Oximeter] 94 Respiratory Rate 16 Blood Pressure [Ri ght Upper Arm] 131/101 H Pulse Oximetry 92 Oxygen Delivery Me thod Room Air Course Course Hospital Course: Labs were drawn. Patient went to imaging wary facial CT and elbow x-ray were both done, both unremarkable aside from soft tissue swelling. His blood alcohol level was elevated at 0.4, LFTs elevated as expected with alcohol use. Patient was very cooperative in, he was here. We discussed his elevated blood alcohol level, he states that he drinks daily. He states that he does have a ride home today and would like to go home. He was awake and functioning without any difficulty while he was here. At 1 point he did fall asleep while waiting for his scan results to come back, he was easily arousable and continue to be cooperative and pleasant. We discussed having him be monitored here versus going home and he requested to go home, stating that this amount of alcohol usage for him is not abnormal. Patient does have a ride home from a co-worker and lives at home with his parents. Vital Signs Vital signs: Initial Vital Signs Temperature 98.6 F 02/12/22 12:52 Temperature Source Temporal Artery Scan 02/12/22 12:52 Pulse Rate 94 02/12/22 12:52 Pulse Rhythm 02/12/22 12:52 Pulse Strength 3+ Normal 02/12/22 12:52 Respiratory Rate 16 02/12/22 12:52 Blood Pressure 131/101 H 02/12/22 12:52 Blood Pressure Mean 111 02/12/22 12:52 Blood Pressure Position Sitting 02/12/22 12:52 Pulse Oximetry 92 02/12/22 12:52 Oxygen Delivery Method 02/12/22 12:52 Vital Signs Temperature 98.6 F 02/12/22 12:52 Pulse Rate 94 02/12/22 12:52 Respiratory Rate 16 02/12/22 12:52 Blood Pressure 131/101 H 02/12/22 12:52 Pulse Oximetry 92 02/12/22 12:52 Oxygen Delivery Method 02/12/22 12:52 Temperature 98.6 F 02/12/22 12:52 Pulse Rate 94 02/12/22 12:52 Respiratory Rate 16 02/12/22 12:52 Blood Pressure 131/101 H 02/12/22 12:52 Pulse Oximetry 92 02/12/22 12:52 Oxygen Delivery Method 02/12/22 12:52 Medical Decision Making MDM Narrative Medical decision making narrative: 61-year-old male with acute alcohol intoxication status post fall. No evidence of pathology requiring intervention. We discussed symptomatic treatment, treatment for alcohol use disorder which she is not interested in at this time. Patient had no other questions Medical Records Medical records reviewed: Yes I reviewed the patient's medical records Lab Data Lab results reviewed: Yes I reviewed the patient's lab results Labs: Lab Results 02/12/22 02/12/22 Range/Units 13:23 13:28 WBC 5.51 (4.50-11.00) K/uL RBC 3.90 L (4.30-5.90) m/uL Hgb 11.9 L (13.5-17.5) gm/dL Hct 36.5 L (37.0-53.0) % MCV 94 (80-100) fL MCH 31 (26-34) pg MCHC 33 (32-36) gm/dL RDW Coeff of Chantel 15.4 (11.5-15.5) % Plt Count 214 (140-440) K/uL Neut % (Auto) 70.7 (42.0-72.0) % Lymph % (Auto) 18.9 L (20-44) % Adams % (Auto) 9.1 (0.0-11.0) % Eos % (Auto) 0.2 (0.0-7.0) % Baso % (Auto) 1.1 (0.0-3.0) % Neut # (Auto) 3.90 (1.7-7.0) K/uL Lymph # (Auto) 1.00 (0.90-2.90) K/uL Adams # (Auto) 0.50 (0.00-0.90) K/UL Eos # (Auto) 0.01 (0.00-0.50) K/uL Baso # (Auto) 0.06 (0.00-0.30) K/uL Abs Immat Gran (auto) 0.00 (0.00-0.30) K/uL Sodium 143 (135-149) mmol/L Potassium 3.7 (3.6-5.1) mmol/L Chloride 102 (96-114) mmol/L Carbon Dioxide 21 (20-32) mmol/L BUN 13 (7-30) mg/dL Creatinine 1.4 (0.5-1.5) mg/dL Estimated Creat Clear 58.66 Estimated GFR 58 ml/min Glucose 101 (60-115) mg/dL Calcium 9.1 (8.4-10.6) mg/dL Total Bilirubin 0.9 (0.1-1.5) mg/dL Direct Bilirubin 0.2 (0.0-0.5) mg/dL AST 137 H (12-35) U/L ALT 49 (4-50) U/L Alkaline Phosphatase 87 (40-150) U/L Total Protein 8.2 (6.0-8.3) g/dL Albumin 4.9 (3.3-5.0) g/dL Ethyl Alcohol 0.40 H* (0.01-0.03) % Imaging Data CT facial bones: Attestation: I have reviewed the pertinent imaging results. Radiologist's impression: Noncontrast CT facial bones. COMPARISON: 07/20/2021. FINDINGS: No acute frontal bone fracture. Nasal bones are intact. No acute orbital fracture. No retrobulbar hematoma/post septal orbital soft tissue swelling. There is left periorbital and left cheek soft tissue swelling and hemorrhage. The zygomatic arches are intact. No acute maxillary fracture. The mandible is not fully included in the field of view. Mild mucosal thickening involving several ethmoid air cells. Small amount of fluid within the right maxillary sinus posterior inferiorly, unchanged. IMPRESSION: 1. Soft tissue swelling and soft tissue hemorrhage involving the left cheek and lateral periorbital region. 2. No acute fracture. 3. No retrobulbar hematoma or postseptal orbital soft tissue swelling. Elbow x-ray: Attestation: I have reviewed the pertinent imaging results. Radiologist's impression: Three views of the left elbow. COMPARISON: No prior. FINDINGS: There is prominent soft tissue swelling about the lateral aspect of the elbow. There is no acute fracture or dislocation. No definite posterior fat pad sign. Tiny olecranon spur. No radiopaque foreign body or soft tissue gas. IMPRESSION: 1. Prominent lateral soft tissue swelling. 2. No acute fracture or malalignment. Discharge Plan Discharge Clinical Impression: Contusion of elbow, Contusion of wrist, Alcohol intoxication, Contusion of face, Fall Patient Disposition: Home w/ Parent or Adult Condition: Stable Additional Instructions: Please consider getting help for alcohol use disorder. We have many resources that you can use, feel free to call to the ER for these resources at any time. Okay to use ibuprofen as needed/as directed for aches and pains. Okay to ice painful areas including face and elbow, do not apply ice directly to skin. Follow-up with your primary care provider in the next coming weeks to make sure things are improving. Return to the ER if things are worsening. Prescriptions: No Action metoprolol succinate 50 mg tablet extended release 24 hr PO Label Comments: TAKE 1 TABLET BY MOUTH EVERY DAY amlodipine 10 mg tablet Label Comments: TAKE 1 TABLET (10 MG) BY MOUTH DAILY. Follow Up/Referrals: Provider,Not a Local [Primary Care Provider] - Stand Alone Forms: Fashion To [employer] Info Instructions
[2022-02-12 13:32] LABS: Basophils Absolute Auto 0.06 K/uL (0.00-0.30); Basophils Percent Auto 1.1 % (0.0-3.0); Eosinophils Absolute Auto 0.01 K/uL (0.00-0.50); Eosinophils Percent Auto 0.2 % (0.0-7.0); Hematocrit 36.5 % (37.0-53.0); Hemoglobin* 11.9 gm/dL (13.5-17.5); Lymphocytes Percent Auto 18.9 % (20-44); Mean Corpuscular HGB Conc 33 gm/dL (32-36); Mean Corpuscular Hemoglobin 31 pg (26-34); Mean Corpuscular Volume 94 fL (80-100); Monocytes Percent Auto 9.1 % (0.0-11.0); Neutrophils Percent Auto 70.7 % (42.0-72.0); Platelet Count* 214 K/uL (140-440); RDW Coefficient of Variation % 15.4 % (11.5-15.5); White Blood Count* 5.51 K/uL (4.50-11.00)
[2022-02-12 13:34] LABS: Slide Review Reflex No
[2022-02-12 13:45] LABS: Albumin* 4.9 g/dL (3.3-5.0); Chloride* 102 mmol/L (96-114); Potassium* 3.7 mmol/L (3.6-5.1); Sodium* 143 mmol/L (135-149)
--- OUTSIDE RECORDS SUMMARY | 2022-02-12 13:46 | XMS_ITS | Encounter Summary ---
:1960 Author Organization [place] Address [facility] [address] Care Team Providers Name Role Phone No Ref-Primary, Physician Primary Care Provider [phone] Denise Connell PA-C Unavailable [phone] Reason for Referral Consultation (Routine: Next available opening) - Pending Review Specialty Diagnoses / Procedures Referred By Contact Refer red To Contact Cardiovascular Disease Diagnoses Essential hypertension Mixed hyperlipidemia Denise Connell Eric Ryan, Catherine, PA-C MD [address] [place] [address] [place] [address] Phone: Fax: Referral ID Status Reason Start Date Expiration Date Visits V isits Requested Authorized [id number] Pending 08/16/2021 08/16/2022 1 1 Review Reason for Visit Reason Comments Follow Up Follow up for HLD, and Htn r eview labs Encounter Details Date Type Department Care Team Description 08/16/2021 Office Visit [facility] Denise Connell hypertension (Primary Dx); Heart Clinic Annika Watson PA-C Mixed hyperlipidemia [address] [place] [address] [place] [address] [phone] Social History Tobacco Use Types Packs/Day Years Used Date Smoking Tobacco: Never Smokeless Tobacco: Never Alcohol Use Standard Drinks/Week Comments No 0 (1 standard drink = 0.6 oz pure alcoho l) quit 5 years ago Sex Assigned at Date Recorded Not on file COVID-19 Exposure Response Date Recorded In the last 10 days, have you been in contact with No / Unsu re 08/16/2021 12:03 PM CDT someone who was confirmed or suspected to have Coronavirus/COVID-19? documented as of this encounter Last Filed Vital Signs Vital Sign Reading Time Taken Comments Blood Pressure 135/85 08/16/2021 1:00 PM CDT Pulse 97 08/16/2021 12:45 PM CDT Temperature - - Respiratory Rate - - Oxygen Saturation 98% 08/16/2021 12:45 PM CDT Inhaled Oxygen Concentration - - Weight 88.5 kg (195 lb) 08/16/2021 12:45 PM CDT Height 172.7 cm (5' 8) 08/16/2021 12:45 PM CDT Body Mass Index 29.65 08/16/2021 12:45 PM CDT documented in this encounter Patient Instructions Patient InstructionsDenise Connell PA-C - 08/16/2021 12:57 PM CDT Thank you for your [facility] visit today. Your provider has recommended the following: Medication Changes: - Continue Lipitor at 40 mg daily. I sent in a new prescription. - RESTART Metoprolol XL at 25 mg daily. If your blood pressures are still greater than 140 in 1 - 2 weeks call my nurse Mai so we can increase to 50 mg daily. Recommendations: Keep an eye on your blood pressures at home. If they are still elevated, we'll adjust metoprolol. Follow-up: See Dr. Farias next year - we'll keep an eye your lipid panel Reminder: Please bring in all current medications, over the counter supplements and vitamin bottles to your next appointment. Important [facility] telephone numbers for your reference: Cardiology Scheduling - [phone] Cardiology Clinic RN- [phone] [facility] HEART CARE Component Latest Ref Rng & Units 08/13/2021 Sodium 133 - 144 mmol/L 136 Potassium 3.4 - 5.3 mmol/L 4.1 Chloride 94 - 109 mmol/L 104 Carbon Dioxide 20 - 32 mmol/L 26 Anion Gap 3 - 14 mmol/L 6 Urea Nitrogen 7 - 30 mg/dL 12 Creatinine 0.66 - 1.25 mg/dL 0.81 Calcium 8.5 - 10.1 mg/dL 9.2 Glucose 70 - 99 mg/dL 123 (H) GFR Estimate >60 mL/min/1.73m2 >90 Cholesterol <200 mg/dL 164 Triglycerides <150 mg/dL 139 HDL Cholesterol >=40 mg/dL 50 LDL Cholesterol Calculated <=100 mg/dL 86 Non HDL Cholesterol <130 mg/dL 114 Patient Fasting > 8hrs? Yes ALT 0 - 70 U/L 53 Hemoglobin A1C 0.0 - 5.6 % 5.6 documented in this encounter Progress Notes Denise Connell PA-C - 08/16/2021 12:30 PM CDT Cardiology Progress Note Patient seen today in follow up of: hypertension, dyslipidemia Primary pomologist: Dr. Farias HPI: Juan Pablo Brown is a very pleasant 60 year old male with a history of hypertension and hyperlipidemia for which she has followed with Dr. Farias. He had a visit with Dr. Farias in the fall 2019. His blood pressure was elevated at that time and lipid panel was worse. In the past, he has had issues with h yperkalemia and acute renal dysfunction on lisinopril. This was stopped and he was changed to amlodipine. It was felt he may have some level of renal artery stenosis however a follow-up ultrasound in January of 2020 showed no evidence of ALEX by US. He remained hypertensive despite 10 mg of amlodipine and was started on metoprolol XL 25 mg daily byDr. Farias February 2020. Additionally, he had a follow-up lipid panel. His LDL remained persistentlyelevated at 116. Total cholesterol was 213. Lipitor was increased to 80 mg daily. Blood pressure numb ers also remained elevated and metoprolol XL was increased to 50 mg daily. He is back today for routine follow up. He recently took a leave of absence from work for a few months. Prior to going back, he had health screening. Apparently, his blood pressure needed to be under 155/95 for him to be eligible to go back to work. His systolic was in the 140s however his diastolic was 98 thus he requested an appointment to be seen today. His blood pressure was initially mildly elevated today however on recheck was 135/85. On review of his medications, he is not taking metoprolol anymore. It also appears he did not increase his Lipitor to 80 mg as directed. He has continued on 10 mg of amlodipine. He does check his blood pressures daily at home. Typically gets readings in the 140s over 90s. He otherwise continues to do well. He has no concerning cardiovascular complaints today and has no other concerns. He had labs prior to today's visit on 08/13. Renal function is normal. Hemoglobin A1c was normal at 5.6. His lipid panel is improved with an LDL of 86, total cholesterol of 164 and HDL of 50. ASSESSMENT/PLAN: Juan Pablo Brown is a pleasant 60-year-old male with a history of hypertension and hyperlipidemia for which he has followed with Dr. Farias. Today, Juan Pablo is here to review his blood pressure regimen. As noted, his blood pressures have been persistently mildly elevated on his home readings in the 140s over 90s. He also failed a screening togo back to work as his diastolic blood pressure was a few points too high. It is unclear how long ramonhas been off of the metoprolol XL. I suggested he restart this. He never increased his Lipitor and thus I think it is unlikely he ever increased his metoprolol to 50 mg daily. I have written a prescription for 25 mg daily. He will continue on amlodipine. I asked him to continue to watch his blood pressures at home. If they are consistently still elevated, then we can increase metoprolol to 50 mg daily. We reviewed his recent lipid panel on 08/13. This showed improvement on the 80 mg of Lipitor with hisLDL down to 86 from 116 despite continuing on lipitor 40 mg daily. For now, will continue that dose.He also had a basic metabolic panel today which showed normal renal function. Additionally, his hemoglobin A1c was in the normal range at 5.6. We reviewed those as well. I will have Juan Pablo return to see Dr. Farias in 1 year. If he continues to have high blood pressures, I asked him to let us know. It was a pleasure meeting him in clinic today. Orders this Visit: Orders Placed This Encounter Procedures ??? Lipid Profile ??? ALT ??? Follow-Up with Cardiology Orders Placed This Encounter Medications ??? atorvastatin (LIPITOR) 40 MG tablet Sig: Take 1 tablet (40 mg) by mouth daily Appointment required for further refills Dispense: 90 tablet Refill: 3 ??? amLODIPine (NORVASC) 10 MG tablet Sig: Take 1 tablet (10 mg) by mouth daily Appointment required for further refills Dispense: 90 tablet Refill: 3 ??? DISCONTD: metoprolol succinate ER (TOPROL-XL) 25 MG 24 hr tablet Sig: Take 2 tablets (50 mg) by mouth daily Dispense: 90 tablet Refill: 3 ??? metoprolol succinate ER (TOPROL-XL) 25 MG 24 hr tablet Sig: Take 1 tablet (25 mg) by mouth daily Dispense: 90 tablet Refill: 3 Medications Discontinued During This Encounter Medication Reason ??? atorvastatin (LIPITOR) 80 MG tablet Reorder ??? amLODIPine (NORVASC) 10 MG tablet Reorder ??? metoprolol succinate ER (TOPROL-XL) 50 MG 24 hr tablet Reorder ??? metoprolol succinate ER (TOPROL-XL) 25 MG 24 hr tablet CURRENT MEDICATIONS: Current Outpatient Medications Medication Sig Dispense Refill ??? amLODIPine (NORVASC) 10 MG tablet Take 1 tablet (10 mg) by mouth daily Appointment required for further refills 90 tablet 3 ??? aspirin 81 MG tablet Take 81 mg by mouth daily ??? atorvastatin (LIPITOR) 40 MG tablet Take 1 tablet (40 mg) by mouth daily Appointment required for further refills 90 tablet 3 ??? Xhctyguvg-Wrozqqpnfcm-Gof D (OSTEO BI-FLEX ONE PER DAY PO) ??? MAGNESIUM CR OR None Entered ??? metoprolol succinate ER (TOPROL-XL) 25 MG 24 hr tablet Take 1 tablet (25 mg) by mouth daily 90 tablet 3 ??? MULTI-VITAMIN OR TABS 1 tablet daily ??? omeprazole (PRILOSEC) 40 MG capsule Take 40 mg by mouth daily ??? VITAMIN E PO Take by mouth daily ALLERGIES Allergies Allergen Reactions ??? Lisinopril Kidney dysfunction and hyperkalemia PAST MEDICAL HISTORY: Past Medical History: Diagnosis Date ??? Anemia, unspecified ??? Gout left first MTP ??? HTN (hypertension) 08/12/2021 ??? Other and unspecified hyperlipidemia ??? Unspecified essential hypertension PAST SURGICAL HISTORY: Past Surgical History: Procedure Laterality Date ??? NO HISTORY OF SURGERY FAMILY HISTORY: Family History Problem Relation Age of Onset ??? Diabetes Father ??? Hypertension Father ??? Family History Negative Other SOCIAL HISTORY: Social History Socioeconomic History ??? Marital status: Single Spouse name: None ??? Number of children: None ??? Years of education: None ??? Highest education level: None Tobacco Use ??? Smoking status: Never Smoker ??? Smokeless tobacco: Never Used Substance and Sexual Activity ??? Alcohol use: No Comment: quit 5 years ago ??? Drug use: No Other Topics Concern ??? Parent/sibling w/ CABG, [place] or angioplasty before 65F 55M? No ??? Caffeine Concern Yes Comment: 2 cups daily ??? Weight Concern Yes Comment: need to lose weight ??? Special Diet No ??? Exercise Yes Comment: work ??? Seat Belt Yes Review of Systems: Skin: Negative Eyes: Positive for glasses ENT: Negative Respiratory: Negative Cardiovascular: Negative Gastroenterology: Positive for heartburn;reflux Genitourinary: Negative nocturia Musculoskeletal: Positive for arthritis Neurologic: Negative Psychiatric: Negative Heme/Lymph/Imm: Negative allergies Endocrine: Negative Physical Exam: Vitals: BP 135/85 Pulse 97 Ht 1.727 m (5' 8) Wt 88.5 kg (195 lb) SpO2 98% BMI 29.65 kg/m?? Wt Readings from Last 4 Encounters: 08/16/21 88.5 kg (195 lb) 02/24/20 88.5 kg (195 lb) 01/30/20 89.5 kg (197 lb 4.8 oz) 11/29/18 89.2 kg (196 lb 9.6 oz) GEN: well nourished, in no acute distress. HEENT: Pupils equal, round. Sclerae nonicteric. NEURO: Alert and oriented, cooperative. SKIN: Warm and dry. Recent Lab Results: LIPID RESULTS: Lab Results Component Value Date CHOL 164 08/13/2021 CHOL 213 (H) 03/11/2020 HDL 50 08/13/2021 HDL 70 03/11/2020 LDL 86 08/13/2021 LDL 116 (H) 03/11/2020 TRIG 139 08/13/2021 TRIG 134 03/11/2020 CHOLHDLRATIO 4.0 07/03/2014 LIVER ENZYME RESULTS: Lab Results Component Value Date AST 524 (H) 07/03/2009 ALT 53 08/13/2021 ALT 41 03/11/2020 CBC RESULTS: Lab Results Component Value Date WBC 6.9 07/03/2009 RBC 3.35 (L) 07/03/2009 HGB 10.6 (L) 07/03/2009 HCT 32.4 (L) 07/03/2009 MCV 97 07/03/2009 MCH 31.6 07/03/2009 MCHC 32.7 07/03/2009 RDW 15.2 (H) 07/03/2009 PLT 287 07/05/2009 BMP RESULTS: Lab Results Component Value Date NA 136 08/13/2021 NA 134 02/21/2020 POTASSIUM 4.1 08/13/2021 POTASSIUM 3.4 02/21/2020 CHLORIDE 104 08/13/2021 CHLORIDE 100 02/21/2020 CO2 26 08/13/2021 CO2 26 02/21/2020 ANIONGAP 6 08/13/2021 ANIONGAP 8 02/21/2020 GLC 123 (H) 08/13/2021 GLC 95 02/21/2020 BUN 12 08/13/2021 BUN 13 02/21/2020 CR 0.81 08/13/2021 CR 1.04 02/21/2020 GFRESTIMATED >90 08/13/2021 GFRESTIMATED 79 02/21/2020 GFRESTBLACK >90 02/21/2020 BRIAN 9.2 08/13/2021 BRIAN 8.8 02/21/2020 A1C RESULTS: Lab Results Component Value Date A1C 5.6 08/13/2021 A1C 5.7 (H) 01/27/2020 INR RESULTS: Lab Results Component Value Date INR 0.95 07/01/2009 INR 1.19 (H) 03/14/2009 Denise Connell PA-C [facility] documented in this encounter Plan of Treatment Scheduled Orders Name Type Priority Associated Diagnoses Order S chedule Lipid Profile Lab Routine Essential hypert ension Expected: 08/16/2022 Mixed hyperlipidemia (Approx imate), Expires: 08/17/2022 ALT Lab Routine Essential hypert ension Expected: 08/16/2022 Mixed hyperlipidemia (Approx imate), Expires: 08/16/2022 Scheduled Referrals Name Type Priority Associated Diagnoses Order S chedule Follow-Up with Referral Routine: Next Essential hypert ension Expected: Cardiology available opening Mixed hyperlipidemia (Approximate), Expires: 08/17/2022 documented as of this encounter Visit Diagnoses Diagnosis Essential hypertension - Primary Unspecified essential hypertension Mixed hyperlipidemia documented in this encounter Additional Health Concerns Infection Onset Date Last Indicated Resolved Time 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
--- OUTSIDE RECORDS SUMMARY | 2022-02-12 13:46 | XMS_ITS | Encounter Summary ---
:1960 Author Organization [place] Address [address] [place] [address] Care Team Providers Name Role Phone Densie Connell PA-C Unavailable [phone] Denise Connell PA-C Unavailable [phone] Juan Farias MD Primary Care Provider Encounter Details Date Type Department Care Team Description 01/05/2022 Travel Social History Tobacco Use Types Packs/Day Years Used Date Smoking Tobacco: Never Smokeless Tobacco: Never Alcohol Use Standard Drinks/Week Comments No 0 (1 standard drink = 0.6 oz pure alcoho l) quit 5 years ago Sex Assigned at Date Recorded Not on file COVID-19 Exposure Response Date Recorded In the last 10 days, have you been in contact with No / Unsu re 01/05/2022 1:27 PM CDT someone who was confirmed or suspected to have Coronavirus/COVID-19? documented as of this encounter Plan of Treatment Not on filedocumented as of this encounter Visit Diagnoses Not on filedocumented in this encounter Additional Health Concerns Infection Onset Date Last Indicated Resolved Time MRSA 05/13/2021 05/13/2021 documented as of this encounter Care Teams Boat Oar Maker Relationship Specialty Start Date End Date Juan Farias, PCP - General Cardiovascular Disease 12/04/21 [address] [place] [id number] Denise Connell Physician Hazard Waste Handler Cardiovascular Disease 08/12/21 MARIETTA Watson [address] [place] [id number] [place], Denise Assigned Heart and 08/22/21 01/14/22 MARIETTA Watson Vascular Provider [address] [place] [id number] documented as of this encounter
--- OUTSIDE RECORDS SUMMARY | 2022-02-12 13:46 | XMS_ITS | Encounter Summary ---
:1960 Author Organization [place] Address [address] [place] [address] Care Team Providers Name Role Phone Denise Connell PA-C Unavailable [phone] Denise Connell PA-C Unavailable [phone] Juan Farias MD Primary Care Provider Encounter Details Date Type Department Care Team Description 01/03/2022 Travel Social History Tobacco Use Types Packs/Day [...] in contact with No / Unsu re 01/03/2022 10:30 AM CDT someone who was confirmed or suspected to have Coronavirus/COVID-19? documented as of this encounter Plan of Treatment Not on filedocumented as of this encounter Visit Diagnoses Not on filedocumented in this encounter Additional Health Concerns Infection Onset Date Last Indicated Resolved Time MRSA 05/13/2021 05/13/2021 documented as of this encounter Care Teams Marketing Content Specialist Relationship Specialty Start Date End Date Juan Farias, PCP - General Cardiovascular Disease 12/04/21 [address] [place] [id number] Denise Connell Physician Transitional Nurse Cardiovascular Disease 08/12/21 MARIETTA Watson [address] [place] [id number] [place], Denise Assigned Heart and 08/22/21 01/14/22 MARIETTA Watson Vascular Provider [address] [place] [id number] documented as of this encounter
--- OUTSIDE RECORDS SUMMARY | 2022-02-12 13:46 | XMS_ITS | Encounter Summary ---
:1960 Author Organization [place] Address [address] [place] [address] Care Team Providers Name Role Phone No Ref-Primary, Physician Primary Care Provider [phone] Denise Connell PA-C Unavailable [phone] Denise Connell PA-C Unavailable [phone] Encounter Details Date Type Department Care Team Description 10/26/2021 [facility] Only [facility] Belia Bearden hypertension Heart Clinic Annika Bennett RN [address] [facility] [address] [place], [place] [address] Social History Tobacco Use Types Packs/Day Years Used Date Smoking Tobacco: Never Smokeless Tobacco: Never Alcohol Use Standard Drinks/Week Comments No 0 (1 standard drink = 0.6 oz pure alcoho l) quit 5 years ago Sex Assigned at Date Recorded Not on file documented as of this encounter Plan of Treatment Not on filedocumented as of this encounter Visit Diagnoses Diagnosis Essential hypertension Unspecified essential hypertension documented in this encounter Additional Health Concerns Infection Onset Date Last Indicated Resolved Time MRSA 05/13/2021 05/13/2021 documented as of this encounter Care Teams Tier Over Relationship Specialty Start Date End Date No Ref-Primary, PCP - General 07/03/14 12/03/21 Physician Denies Connell Physician Foundry Helper Cardiovascular Disease 08/12/21 MARIETTA Watson [address] [facility] [address] [place] [id number] Denise Connell Assigned Heart and 08/22/21 01/14/22 MARIETTA Watson Vascular Provider [address] [place] [address] documented as of this encounter
--- OUTSIDE RECORDS SUMMARY | 2022-02-12 13:46 | XMS_ITS | Encounter Summary ---
:1960 Author Organization [place] Address [address] [place] [address] Care Team Providers Name Role Phone Denise Connell PA-C Unavailable [phone] Denise Connell PA-C Unavailable [phone] Juan Farias MD Primary Care Provider Encounter Details Date Type Department Care Team Description 12/04/2021 Travel Social History Tobacco Use Types Packs/Day [...] in contact with No / Unsu re 12/04/2021 7:57 AM CDT someone who was confirmed or suspected to have Coronavirus/COVID-19? documented as of this encounter Plan of Treatment Not on filedocumented as of this encounter Visit Diagnoses Not on filedocumented in this encounter Additional Health Concerns Infection Onset Date Last Indicated Resolved Time MRSA 05/13/2021 05/13/2021 documented as of this encounter Care Teams Weight Recorder Relationship Specialty Start Date End Date Juan Farias, PCP - General Cardiovascular Disease 12/04/21 [address] [place] [id number] Denise Connell Physician Solar Sales Consultant Cardiovascular Disease 08/12/21 MARIETTA Watson [address] [place] [id number] [place], Denise Assigned Heart and 08/22/21 01/14/22 MARIETTA Watson Vascular Provider [address] [place] [id number] documented as of this encounter
--- OUTSIDE RECORDS SUMMARY | 2022-02-12 13:46 | XMS_ITS | Encounter Summary ---
:1960 Author Organization [place] Address [address] [place] [address] Care Team Providers Name Role Phone No Ref-Primary, Physician Primary Care Provider [phone] Denise Connell PA-C Unavailable [phone] Encounter Details Date Type Department Care Team Description 08/16/2021 Travel Social History Tobacco Use Types Packs/Day [...] documented as of this encounter Care Teams Petroleum Products Sales Representative Relationship Specialty Start Date End Date No Ref-Primary, PCP - General 07/03/14 12/03/21 Physician Denise Connell Physician Biofuels Technology Development Manager Cardiovascular Disease 08/12/21 MARIETTA Watson [address] [facility] [address] [place] [address] documented as of this encounter
--- OUTSIDE RECORDS SUMMARY | 2022-02-12 13:46 | XMS_ITS | Clinical Summary ---
:1960 Author Organization [facility] Address [address] [place] [id number] Care Team Providers Name Role Phone Marydebra Denise Watson PA-C Unavailable [phone] Juan Farias MD Primary Care Provider Dana Barry PA-C Unavailable [phone] Allergies Active Allergy Reactions Severity Noted Date Comments Lisinopril 09/15/2017 Kidney dysfunct ion and hyperkalemia Medications Medication Sig Dispensed Refills Start Date End Date Status MULTI-VITAMIN OR Take 1 tablet by 0 Active TABSIndications: mouth daily Hemorrhage of gastrointestinal tract, unspecified aspirin 81 MG tablet Take 81 mg by 0 Active mouth daily VITAMIN E PO Take 1 tablet by 0 Active mouth daily Ihrxpwmaw-Wedlkcesqex-Q Take 1 tablet by 0 Active it D (OSTEO BI-FLEX ONE mouth daily PER DAY PO) acetaminophen (TYLENOL) Take 2 tablets 0 2021 Active 325 MG (650 mg) by tabletIndications: mouth every 4 Sprain of left ankle, hours as needed unspecified ligament, for mild pain, initial encounter fever or headaches omeprazole (PRILOSEC) Take 1 capsule 30 capsule [address] (40 mg) by mouth capsuleIndications: daily Alcoholic gastritis without bleeding, unspecified chronicity atorvastatin (LIPITOR) Take 1 tablet 90 tablet 2 12/17/2021 Active 40 MG (40 mg) by mouth tabletIndications: daily Mixed hyperlipidemia magnesium oxide Take 400 mg by 0 07/28/2021 Active (MAG-OX) 400 MG tablet mouth 2 times daily metoprolol succinate ER Take 1 tablet 90 tablet 3 01/05/2022 Active (TOPROL XL) 50 MG 24 hr (50 mg) by mouth tabletIndications: daily Essential hypertension amLODIPine (NORVASC) 10 Take 1 tablet 90 tablet 3 01/05/2022 Active MG tabletIndications: (10 mg) by mouth Essential hypertension daily Active Problems Problem Noted Date Alcoholic ketoacidosis 12/04/2021 HTN (hypertension) 08/12/2021 HYPERLIPIDEMIA LDL GOAL <100 02/21/2010 Alcohol withdrawal delirium 01/17/2008 Overview: (Problem list name updated by automated process. Provider to review and confirm.) Mixed hyperlipidemia 07/31/2006 Anemia Overview: Problem list name updated by automated p rocess. Provider to review Resolved Problems Problem Noted Date Resolved Date Essential hypertension 07/31/2006 08/10/2006 Overview: Problem list name updated by automated p rocess. Provider to review Encounters Date Type Specialty Care Team Description 01/05/2022 Office Visit Cardiology Juan Farias, Mixed hype rlipidemia; Essential hypertension More, Dana Teague PA-C 01/05/2022 Travel 01/03/2022 Travel 12/17/2021 Refill Cardiology Liedebra, Denise Refill Clarence Watson PA-C (lipitor) 12/04/2021 - Hospital Encounter Med Surg Jason Orozco Alcohol ic gastritis without bleeding, unspecified chronicity (Primary Dx); 2021 MD Bony Alcoholic ketoacidosis; Rodger Mantilla MD Sprain of l eft ankle, unspecified ligament, initial encounter 12/04/2021 Travel from Last 3 Months Immunizations Name Administration Dates Next Due COVID-19,PF,Pfizer (12+ Yrs) 12/11/2020, 11/20/2020 TD (ADULT, 7+) 04/22/2003 Family History Medical History Relation Comments Diabetes Father Hypertension Father Family History Negative Other Relation Status Comments Brother 1 Alive Brother 2 Alive Father Alive Mother Alive Other Sister Alive Social History Tobacco Use Types Packs/Day Years Used Date Smoking Tobacco: Never Smokeless Tobacco: Never Tobacco Cessation: Counseling Given: Yes Alcohol Use Standard Drinks/Week Comments No 0 (1 standard drink = 0.6 oz pure alcoho l) quit 5 years ago Sex Assigned at Date Recorded Not on file Last Filed Vital Signs Vital Sign Reading Time Taken Comments Blood Pressure 150/60 01/05/2022 2:33 PM CDT Pulse 67 01/05/2022 1:36 PM CDT Temperature 36.8 ??C (98.3 ??F) 2021 7:49 AM CDT Respiratory Rate 20 2021 7:49 AM CDT Oxygen Saturation 99% 01/05/2022 1:36 PM CDT Inhaled Oxygen Concentration - - Weight 91.2 kg (201 lb) 01/05/2022 1:36 PM CDT Height 172.7 cm (5' 8) 01/05/2022 1:36 PM CDT Body Mass Index 30.56 01/05/2022 1:36 PM CDT Plan of Treatment Health Maintenance Due Date Last Done Comments ADVANCE CARE PLANNING 1960 ANNUAL REVIEW OF HM ORDERS 1962 CT COLONOGRAPHY 1960 DIABETIC FOOT EXAM 1960 EYE EXAM 1960 FIT-DNA (Cologuard) 1960 FIT 1962 FLEX SIG 1960 HEPATITIS B IMMUNIZATION (1 1962 of 3 - 3-dose series) MICROALBUMIN 1960 YEARLY PREVENTIVE VISIT 1960 Pneumococcal Vaccine: 1968 Pediatrics (0 to 5 Years) and At-Risk Patients (6 to 64 Years) (1 - PCV) HEPATITIS C SCREENING 1980 ZOSTER IMMUNIZATION (1 of 2012 2) DTAP/TDAP/TD IMMUNIZATION 04/22/2013 04/22/2003 (2 - Td or Tdap) COLONOSCOPY 08/03/2016 08/03/2006 COLORECTAL CANCER SCREENING 08/03/2016 COVID-19 Vaccine (3 - 02/05/2021 12/11/2020, 11/20/2020 Booster for Pfizer series) PHQ-2 (once per calendar 04/24/2021 year) A1C 11/12/2021 08/13/2021, 01/27/2020, 11/29/2018, Additional history exists INFLUENZA VACCINE (#1) 2021 LIPID 08/13/2022 08/13/2021, 03/11/2020, 01/27/2020, Additional history exists BMP 12/07/2022 12/07/2021, 12/06/2021, 12/05/2021, Additional history exists HIV SCREENING Completed 09/27/2006 IPV IMMUNIZATION Aged Out No longer eligi ble based on patient 's age to complete this topic MENINGITIS IMMUNIZATION Aged Out No longe r eligible based on patient 's age to complete this topic Procedures Procedure Name Priority Date/Time Associated Comments Diagnosis POTASSIUM Routine 2021 8:05 AM Results f or this CDT procedure are i n the results section. PHOSPHORUS Routine 2021 8:05 AM Results f or this CDT procedure are i n the results section. MAGNESIUM Routine 2021 8:05 AM Results f or this CDT procedure are i n the results section. POTASSIUM Timed 12/07/2021 4:03 PM Results f or this CDT procedure are i n the results section. CBC WITH PLATELETS Routine 12/07/2021 5:37 AM Res ults for this CDT procedure are i n the results section. COMPREHENSIVE Routine 12/07/2021 5:37 AM Results for this METABOLIC PANEL CDT procedure ar e in the results section. PHOSPHORUS Routine 12/07/2021 5:37 AM Results f or this CDT procedure are i n the results section. MAGNESIUM Timed 12/07/2021 5:37 AM Results f or this CDT procedure are i n the results section. MAGNESIUM Add-On 12/06/2021 6:37 PM Results f or this CDT procedure are i n the results section. PHOSPHORUS Timed 12/06/2021 6:37 PM Results f or this CDT procedure are i n the results section. XR ANKLE LEFT G/E 3 Routine 12/06/2021 2:48 PM Re sults for this VIEWS CDT procedure are i n the results section. PHOSPHORUS Timed 12/06/2021 11:32 Results for this AM CDT procedure are i n the results section. COMPREHENSIVE Add-On 12/06/2021 6:26 AM Results for this METABOLIC PANEL CDT procedure ar e in the results section. PHOSPHORUS Add-On 12/06/2021 6:26 AM Results f or this CDT procedure are i n the results section. POTASSIUM Timed 12/06/2021 6:26 AM Results f or this CDT procedure are i n the results section. PLATELET COUNT Routine 12/06/2021 6:25 AM Results for this CDT procedure are i n the results section. MAGNESIUM Routine 12/06/2021 6:25 AM Results f or this CDT procedure are i n the results section. PHOSPHORUS Timed 12/06/2021 2:00 AM Results f or this CDT procedure are i n the results section. POTASSIUM Timed 12/05/2021 11:23 Results for this PM CDT procedure are i n the results section. PHOSPHORUS Timed 12/05/2021 2:02 PM Results f or this CDT procedure are i n the results section. POTASSIUM Timed 12/05/2021 11:46 Results for this AM CDT procedure are i n the results section. MAGNESIUM Add-On 12/05/2021 6:51 AM Results f or this CDT procedure are i n the results section. CBC WITH PLATELETS Routine 12/05/2021 6:51 AM Res ults for this CDT procedure are i n the results section. COMPREHENSIVE Routine 12/05/2021 6:51 AM Results for this METABOLIC PANEL CDT procedure ar e in the results section. PHOSPHORUS Timed 12/05/2021 4:25 AM Results f or this CDT procedure are i n the results section. TROPONIN T, HIGH Add-On 12/04/2021 11:54 Results for this SENSITIVITY PM CDT procedure are i n the results section. POTASSIUM Timed 12/04/2021 11:54 Results for this PM CDT procedure are i n the results section. UA MACROSCOPIC WITH Routine 12/04/2021 11:14 Resu lts for this REFLEX TO MICRO AND PM CDT procedur e are in CULTURE the results section. SODIUM RANDOM URINE Routine 12/04/2021 11:14 Resu lts for this PM CDT procedure are i n the results section. PHOSPHORUS Routine 12/04/2021 7:44 PM Results f or this CDT procedure are i n the results section. MAGNESIUM Routine 12/04/2021 7:44 PM Results f or this CDT procedure are i n the results section. BASIC METABOLIC PANEL Timed 12/04/2021 7:44 PM Results for this CDT procedure are i n the results section. TROPONIN T, HIGH Add-On 12/04/2021 6:07 PM Resul ts for this SENSITIVITY CDT procedure are i n the results section. AFP TUMOR MARKER Routine 12/04/2021 4:13 PM Resul ts for this CDT procedure are i n the results section. CREATININE Routine 12/04/2021 4:13 PM Results f or this CDT procedure are i n the results section. CT ABDOMEN PELVIS W STAT 12/04/2021 10:04 Resu lts for this CONTRAST AM CDT procedure are i n the results section. COVID-19 VIRUS STAT 12/04/2021 9:44 AM Results for this (CORONAVIRUS) BY PCR CDT procedu re are in the results section. PHOSPHORUS STAT 12/04/2021 9:18 AM Results f or this CDT procedure are i n the results section. MAGNESIUM STAT 12/04/2021 9:18 AM Results f or this CDT procedure are i n the results section. BLOOD GAS VENOUS STAT 12/04/2021 8:26 AM Resul ts for this CDT procedure are i n the results section. LACTIC ACID WHOLE STAT 12/04/2021 8:26 AM Resu lts for this BLOOD CDT procedure are i n the results section. CBC WITH PLATELETS & STAT 12/04/2021 8:14 AM R esults for this DIFFERENTIAL CDT procedure are i n the results section. CBC WITH PLATELETS AND STAT 12/04/2021 8:14 AM Results for this DIFFERENTIAL CDT procedure are i n the results section. ETHYL ALCOHOL LEVEL STAT 12/04/2021 8:14 AM Re sults for this CDT procedure are i n the results section. KETONE STAT 12/04/2021 8:14 AM Results f or this BETA-HYDROXYBUTYRATE CDT procedu re are in QUANTITATIVE, RAPID the resu lts section. TROPONIN T, HIGH STAT 12/04/2021 8:14 AM Resul ts for this SENSITIVITY CDT procedure are i n the results section. LIPASE STAT 12/04/2021 8:14 AM Results f or this CDT procedure are i n the results section. COMPREHENSIVE STAT 12/04/2021 8:14 AM Results for this METABOLIC PANEL CDT procedure ar e in the results section. EKG 12-LEAD, TRACING STAT 12/04/2021 8:01 AM R esults for this ONLY CDT procedure are i n the results section. from Last 3 Months Results Potassium (2021 8:05 AM CDT)Only the most recent of6 resultswithin the time period is included. P athologist Signature Potassium 3.8 3.4 - 5.3 2021 [facility] mmol/L 8:40 AM CDT Specimen Anatomical Collection Method / Collection Time Recei rehana Time (Source) Location / Volume Laterality Blood STRUCTURE OF LEFT Venipuncture / 2021 8:05 12/08 8:18 HAND / Unknown Unknown AM CDT AM CDT Kelvin Ceballos MD LAB - BLOOD ORDERABLES Performing Organization Address City/[facility] [place] [address] Care Lab [address] Lab (1st floor, no room number) (ABNORMAL) Phosphorus (2021 8:05 AM CDT)Only the most recent of10 results within the time period is included. athologist Signature Phosphorus 2.0 (L) 2.5 - 4.5 2021 [facility] mg/dL 8:40 AM CDT Specimen Anatomical Collection Method / Collection Time Recei rehana Time (Source) Location / Volume Laterality Blood STRUCTURE OF LEFT Venipuncture / 2021 8:05 12/08 8:18 HAND / Unknown Unknown AM CDT AM CDT Rodger Mantilla MD LAB - BLOOD ORDERABLES Performing Organization Address [facility] [place] [address] Care Lab [address] Lab (1st floor, no room number) (ABNORMAL) Magnesium (2021 8:05 AM CDT)Only the most recent of7 results within the time period is included. athologist Signature Magnesium 1.5 (L) 1.7 - 2.3 2021 [facility] mg/dL 8:40 AM CDT Specimen Anatomical Collection Method / Collection Time Recei rehana Time (Source) Location / Volume Laterality Blood STRUCTURE OF LEFT Venipuncture / 2021 8:05 12/08 8:18 HAND / Unknown Unknown AM CDT AM CDT Rodger Mantilla MD LAB - BLOOD ORDERABLES Performing Organization Address City/State/ZIP Code Phon e Number [place] [address] Care Lab [address] Lab (1st floor, no room number) (ABNORMAL) Comprehensive metabolic panel (12/07/2021 5:37 AM CDT)Only the most recent of4 resultswithin the time period is included. [facility] Method Time Signature Sodium 135 (L) 136 - 145 12/07/2021 LABORATORY mmol/L 6:07 AM CDT Potassium 3.0 (L) 3.4 - 5.3 12/07/2021 LABORATORY mmol/L 6:07 AM CDT Creatinine 0.76 0.67 - 12/07/2021 LABORATORY 1.17 mg/dL 6:07 AM CDT Urea Nitrogen 3.7 (L) 6.0 - 20.0 12/07/2021 LABORATORY mg/dL 6:07 AM CDT Chloride 93 (L) 98 - 107 12/07/2021 LAB[facility]ATORY mmol/L 6:07 AM CDT Carbon Dioxide 33 (H) 22 - 29 12/07/2021 LABORATORY (CO2) mmol/L 6:07 AM CDT Anion Gap 9 7 - 15 12/07/2021 [facility]ATORY mmol/L 6:07 AM CDT Glucose 132 (H) 70 - 99 12/07/2021 LABORATORY mg/dL 6:07 AM CDT Calcium 8.2 (L) 8.6 - 10.0 12/07/2021 LAB[facility]ATORY mg/dL 6:07 AM CDT Protein Total 6.5 6.4 - 8.3 12/07/2021 LAB[facility]ATORY g/dL 6:07 AM CDT Albumin 3.3 (L) 3.5 - 5.2 12/07/2021 [facility]ORY g/dL 6:07 AM CDT Bilirubin Total 1.4 (H) <=1.2 12/07/2021 LAB[facility]ATORY mg/dL 6:07 AM CDT Alkaline 72 40 - 129 12/07/2021 LABORATORY Phosphatase U/L 6:07 AM CDT AST 75 (H) 10 - 50 12/07/2021 [facility] U/L 6:07 AM CDT ALT 41 10 - 50 12/07/2021 [facility] U/L 6:07 AM CDT GFR Estimate >90 >60 12/07/2021 [facility] mL/min/1.7 6:07 AM CDT 3m2 Comment: Effective April 13, 2021 eGF Rcr in adults is calculated using the 2020 CKD-EPI creatinine equation which includ es age and gender (Yuli et al., [place], DOI: 10.1056/ENJSyc5543408) Specimen Anatomical Collection Method / Collection Time Recei rehana Time (Source) Location / Volume Laterality Blood STRUCTURE OF LEFT Venipuncture / 12/07/2021 5:37 12/07 5:43 UPPER LIMB / Unknown AM CDT AM CDT Unknown Rodger Mantilla MD LAB - BLOOD ORDERABLES Performing Organization Address City/State/ZIP Code Phon [place] Number [place] [address] Care Lab [address] Lab (1st floor, no room number) (ABNORMAL) CBC with platelets (12/07/2021 5:37 AM CDT)Only the most recent of2 resultswithin the time period is included. [facility] gist Method Time Signature WBC Count 6.1 4.0 - 11.0 12/07/2021 [facility] 10e3/uL 5:48 AM CDT RBC Count 3.79 (L) 4.40 - 12/07/2021 [facility] 5.90 5:48 AM CDT 10e6/uL Hemoglobin 11.4 (L) 13.3 - 12/07/2021 [facility] 17.7 g/dL 5:48 AM CDT Hematocrit 34.7 (L) 40.0 - 12/07/2021 [facility] 53.0 % 5:48 AM CDT MCV 92 78 - 100 12/07/2021 [facility] fL 5:48 AM CDT MCH 30.1 26.5 - 12/07/2021 [facility] 33.0 pg 5:48 AM CDT MCHC 32.9 31.5 - 12/07/2021 [facility] 36.5 g/dL 5:48 AM CDT RDW 13.4 10.0 - 12/07/2021 [facility] 15.0 % 5:48 AM CDT Platelet Count 141 (L) 150 - 450 12/07/2021 LAB[facility]ATORY 10e3/uL 5:48 AM CDT Specimen Anatomical Collection Method / Collection Time Recei rehana Time (Source) Location / Volume Laterality Blood STRUCTURE OF LEFT Venipuncture / 12/07/2021 5:37 12/07 5:43 UPPER LIMB / Unknown AM CDT AM CDT Unknown Rodger Mantilla MD LAB - BLOOD ORDERABLES Performing Organization Address City/State/ZIP Code Phon [place] [address] Care Lab [address] Lab (1st floor, no room number) XR Ankle Left G/E 3 Views (12/06/2021 2:48 PM CDT) Anatomical Region Laterality Modality Leg, Ankle, Foot Left Digital Radiography Specimen (Source) Anatomical Location Collection Method / Collectio n Time Received Time / Laterality Volume Impressions 12/06/2021 2:51 PM CDT IMPRESSION: No acute fracture. Small chronic avulsion fracture fragments involving the tip of the media l malleolus. Ankle mortise is intact. Mild soft tissue swelling around the ankle. Tiny plantar and Achilles heel spurs. CLARKE CHURCHILL MD Narrative 12/06/2021 2:51 PM CDT XR ANKLE LEFT G/E 3 VIEWS 12/06/2021 2:48 PM HISTORY: Left ankle pain. Recent injury. COMPARISON: None. Procedure Note Clarke Churchill MD - 12/06/2021Form atting of this note might be different from the original. XR ANKLE LEFT G/E 3 VIEWS 12/06/2021 2:48 PM HISTORY: Left ankle pain. Recent injury. COMPARISON: None. IMPRESSION: No acute fracture. Small chr onic avulsion fracture fragments involving the tip of the media l malleolus. Ankle mortise is intact. Mild soft tissue swelling around the ankle. Tiny plantar and Achilles heel spurs. CLARKE CHURCHILL MD Rodger Mantilla MD IMG DIAGNOSTIC IMAGING ORDER DAILY (ABNORMAL) Platelet count (12/06/2021 6:25 AM CDT) P athologist Signature Platelet Count 101 (L) 150 - 450 12/06/2021 LABORATORY 10e3/uL 7:17 AM CDT Specimen Anatomical Collection Method / Collection Time Recei rehana Time (Source) Location / Volume Laterality Blood STRUCTURE OF RIGHT Venipuncture / 12/06/2021 6:25 0808/2021 7:05 HAND / Unknown Unknown AM CDT AM CDT Rodger Mantilla MD LAB - BLOOD ORDERABLES Performing Organization Address City/[facility]/ZIP Code Phon [place] [address] Care Lab [address] Lab (1st floor, no room number) (ABNORMAL) Troponin T, High Sensitivity (12/04/2021 11:54 PM CDT)Only the most recent of3 resultswithin the time period is included. Analysis Performed At Patho logist Time Signature Troponin T, High 35 (H) <=22 ng/L 12/05/2021 LABORATOR Y Sensitivity 12:22 AM CDT Specimen Anatomical Collection Method / Collection Time Recei rehana Time (Source) Location / Volume Laterality Blood STRUCTURE OF RIGHT Venipuncture / 12/04/2021 11:54 HAND / Unknown Unknown PM CDT 11:57 PM CDT Rodger Mantilla MD LAB - BLOOD ORDERABLES Performing Organization Address [facility]/[place] [facility] [place] [address] Care Lab [address] Lab (1st floor, no room number) (ABNORMAL) UA reflex to Microscopic and Culture (12/04/2021 11:14 PM CDT) Patholo gist Method Time Signature Color Urine Light Colorless, 12/04/2021 LABORATORY Yellow Straw, 11:34 PM Light CDT Yellow, Yellow Appearance Urine Clear Clear 12/04/2021 [facility] Y 11:34 PM CDT Glucose Urine Negative Negative 12/04/2021 LAB[facility]ATORY mg/dL 11:34 PM CDT Bilirubin Urine Small (A) Negative 12/04/2021 LABORATORY 11:34 PM CDT Ketones Urine 100 (A) Negative 12/04/2021 LAB[facility]ATORY mg/dL 11:34 PM CDT Specific [place] 1.023 1.003 - 12/04/2021 [facility] Y Urine 1.035 11:34 PM CDT Blood Urine Negative Negative 12/04/2021 LABORATORY 11:34 PM CDT pH Urine 6.0 5.0 - 7.0 12/04/2021 LAB[facility]ATORY 11:34 PM CDT Protein Albumin 50 (A) Negative 12/04/2021 LAB[facility]ATORY Urine mg/dL 11:34 PM CDT Urobilinogen Normal Normal, 2.0 12/04/2021 LAB[facility]ORY Urine mg/dL 11:34 PM CDT Nitrite Urine Negative Negative 12/04/2021 LAB[facility] 11:34 PM CDT Leukocyte Negative Negative 12/04/2021 LAB[facility]ATORY Esterase Urine 11:34 PM CDT Mucus Urine Present (A) None Seen 12/04/2021 LAB[facility]ORY /LPF 11:34 PM CDT RBC Urine <1 <=2 /HPF 12/04/2021 LAB[facility] 11:34 PM CDT WBC Urine <1 <=5 /HPF 12/04/2021 LAB[facility]ATORY 11:34 PM CDT Specimen Anatomical Collection Method Collection Time Receive d Time (Source) Location / / Volume Laterality Urine URINE SPECIMEN Non-blood 12/04/2021 11:14 2 OBTAINED BY CLEAN Collection / PM CDT 11:15 PM C DT CATCH PROCEDURE / Unknown Unknown Narrative LABORATORY - 12/04/2021 11:34 PM CDT Urine Culture not indicated Rodger Mantilla MD LAB - URINE ORDERABLES Performing Organization Address City/State/ZIP Code [place] [phone] Care Lab [address] Lab (1st floor, no room number) Sodium random urine (12/04/2021 11:14 PM CDT) P athologist Signature Sodium Urine 57 mmol/L 12/04/2021 LAB[facility]ATORY mmol/L 11:45 PM CDT Comment: The reference ranges have not b een established in urine sodium. The results should be integrated into the clinical c ontext for interpretation. Specimen Anatomical Collection Method Collection Time Receive d Time (Source) Location / / Volume Laterality Urine URINE SPECIMEN Non-blood 12/04/2021 11:14 2 OBTAINED BY CLEAN Collection / PM CDT 11:14 PM C DT CATCH PROCEDURE / Unknown Unknown Rodger Mantilla MD LAB - URINE ORDERABLES Performing Organization Address City/State/ZIP Code Phon [place] [address] Care Lab [address] Lab (1st floor, no room number) (ABNORMAL) Basic metabolic panel (12/04/2021 7:44 PM CDT) Analysis Performed At Patho logist Time Signature Creatinine 1.16 0.67 - 12/04/2021 LABORATORY 1.17 mg/dL 8:12 PM CDT Sodium 134 (L) 136 - 145 12/04/2021 LAB[facility]ORY mmol/L 8:12 PM CDT Potassium 3.2 (L) 3.4 - 5.3 12/04/2021 [facility] mmol/L 8:12 PM CDT Urea Nitrogen 15.4 6.0 - 20.0 12/04/2021 LAB[facility]ORY mg/dL 8:12 PM CDT Chloride 91 (L) 98 - 107 12/04/2021 [facility] mmol/L 8:12 PM CDT Carbon Dioxide 17 (L) 22 - 29 12/04/2021 LAB[facility] (CO2) mmol/L 8:12 PM CDT Anion Gap 26 (H) 7 - 15 12/04/2021 [facility] mmol/L 8:12 PM CDT Glucose 118 (H) 70 - 99 12/04/2021 LAB[facility]ORY mg/dL 8:12 PM CDT GFR Estimate 73 >60 12/04/2021 LAB[facility]ORY mL/min/1.7 8:12 PM CDT 3m2 Comment: Effective April 13, 2021 eGF Rcr in adults is calculated using the 2020 CKD-EPI creatinine equation which includ es age and gender (Yuli et al., NEJM, DOI: 10.1056/BHYGlb6532412) Calcium 8.5 (L) 8.6 - 10.0 mg/dL 12/04/2021 8:12 PM CDT LABORATORY Specimen Anatomical Collection Method / Collection Time Recei rehana Time (Source) Location / Volume Laterality Blood STRUCTURE OF RIGHT Venipuncture / 12/04/2021 7:44 11/22 7:47 UPPER LIMB / Unknown PM CDT PM CDT Unknown Rodger Mantilla MD LAB - BLOOD ORDERABLES Performing Organization Address City/[facility]/ZIP Code Phon [place] [address] Care Lab [address] Lab (1st floor, no room number) (ABNORMAL) Creatinine (12/04/2021 4:13 PM CDT) athologist Signature Creatinine 1.22 (H) 0.67 - 12/04/2021 LABORATORY 1.17 mg/dL 4:48 PM CDT GFR Estimate 69 >60 12/04/2021 LAB[facility]ORY mL/min/1.7 4:48 PM CDT 3m2 Comment: Effective April 13, 2021 eGF Rcr in adults is calculated using the 2020 CKD-EPI creatinine equation which includ es age and gender (Yuli et al., NEJ, DOI: 10.1056/GDDBdm6133576) Specimen Anatomical Collection Method / Collection Time Recei rehana Time (Source) Location / Volume Laterality Blood STRUCTURE OF RIGHT Venipuncture / 12/04/2021 4:13 11/22 4:24 UPPER LIMB / Unknown PM CDT PM CDT Unknown Rodger Mantilla MD LAB - BLOOD ORDERABLES Performing Organization Address City/[facility]/ZIP Code Phon [place] [address] Care Lab [address] Lab (1st floor, no room number) AFP tumor marker (12/04/2021 4:13 PM CDT) athologist Signature AFP tumor 2.3 <=8.3 12/05/2021 [facility] marker ng/mL 3:04 AM CDT Specimen Anatomical Collection Method / Collection Time Recei rehana Time (Source) Location / Volume Laterality Blood STRUCTURE OF RIGHT Venipuncture / 12/04/2021 4:13 11/22 4:24 UPPER LIMB / Unknown PM CDT PM CDT Unknown Narrative [facility] - 12/05/2021 3:04 AM CDT This result is obtained using the [employer] AFP method on ??the eric e801 immunoassay analyzer. Results obtained with different assay methods or kits cannot be used interchangeably. Reference ranges apply to non- f emales only. Rodger Mantilla MD LAB - BLOOD ORDERABLES Performing Organization Address City/State/ZIP Code [place] [address] [phone] Lab [address] [facility] [address] Building, Room 3-580 CT Abdomen Pelvis w Contrast (12/04/2021 10:04 AM CDT) Anatomical Region Laterality Modality Abdomen/Pelvis, SUBRAD CT BODY, UMP CT ABDOMEN PELVIS, Computed Tomography RAD CT Specimen (Source) Anatomical Collection Method Collection Time Re ceived Time Location / / Volume Laterality 12/04/2021 9:52 AM CDT Impressions 12/04/2021 10:17 AM CDT IMPRESSION: 1. ??Circumferential wall thickening of the visualized distal esophagus. Correlate clinically for esophagitis. 2. ??Mild stranding around the pancreati c head, exaggerated by motion artifact. Findings could represent mild acute pancreatitis. 3. ??Diffuse hepatic steatosis. Indeterm inate 1.6 x 0.7 cm hypodense lesion in the right hepatic lobe. Nonemergent liver MRI should be considered for further characterization. 4. ??Hyperdense material in the gallblad perry lumen, likely sludge. No calcified gallstones. 5. ??Multiple bilateral renal cysts, req uiring no specific follow-up. Narrative 12/04/2021 10:17 AM CDT EXAM: CT ABDOMEN PELVIS W CONTRAST LOCATION: [facility] [place] DATE/TIME: 12/04/2021 9:52 AM INDICATION: abdominal pain vomiting, yamileth l for obstruction COMPARISON: Renal ultrasound 02/14/2020 TECHNIQUE: CT scan of the abdomen and pe lvis was performed following injection of IV contrast. Multiplanar reformats were obtained. Dose reduction techniques were used. CONTRAST: 90mL Isovue 370 FINDINGS: LOWER CHEST: The visualized lung bases a re clear. Circumferential wall thickening of the visualized distal esophagus. HEPATOBILIARY: Marked diffuse hepatic st eatosis. A 1.6 x 0.7 cm hypodense lesion in the posterior right hepatic lobe (series 3, image 40) is not well characterized in phase of contrast. Hyperdense mater ial in the gallbladder, likely sludge. N o biliary ductal dilatation. PANCREAS: Evaluation is slightly limited by motion in the upper abdomen. Mild stranding around the pancreatic head, exaggerated by motion. No pancreatic duct dilatation or peripancreatic fluid collections. Normal enhancement of the pancreatic parenchyma.. SPLEEN: Normal. ADRENAL GLANDS: Normal. KIDNEYS/BLADDER: Multiple bilateral mariya l cysts requiring no specific follow-up. No calculi or hydronephrosis in either kidney. Partly decompressed urinary bladder. BOWEL: No small bowel or colonic obstruc tion or inflammatory changes. Normal appendix. LYMPH NODES: No lymphadenopathy. VASCULATURE: No abdominal aortic aneurys m. PELVIC ORGANS: No pelvic masses. No free fluid or fluid collections. No extraluminal air. MUSCULOSKELETAL: Mild degenerative acosta es in the spine. Old healed left-sided rib fractures. No suspicious lesions in the bones. Procedure Note Ami Camp MD - 12/04/2021 EXAM: CT ABDOMEN PELVIS W CONTRAST LOCATION: [facility] [place] DATE/TIME: 12/04/2021 9:52 AM INDICATION: abdominal pain vomiting, yamileth l for obstruction COMPARISON: Renal ultrasound 02/14/2020 TECHNIQUE: CT scan of the abdomen and pe lvis was performed following injection of IV contrast. Multiplanar reformats were obtained. Dose reduction techniques were used. CONTRAST: 90mL Isovue 370 FINDINGS: LOWER CHEST: The visualized lung bases a re clear. Circumferential wall thickening of the visualized distal esophagus. HEPATOBILIARY: Marked diffuse hepatic st eatosis. A 1.6 x 0.7 cm hypodense lesion in the posterior right hepatic lobe (series 3, image 40) is not well characterized in phase of contrast. Hyperdense material in the gallbladder, likely sludge. No biliary ductal dilatation. PANCREAS: Evaluation is slightly limited by motion in the upper abdomen. Mild stranding around the pancreatic head, exaggerated by motion. No pancreatic duct dilatation or peripancreatic fluid collections. Normal enhancement of the pancreatic parenchyma.. SPLEEN: Normal. ADRENAL GLANDS: Normal. KIDNEYS/BLADDER: Multiple bilateral mariya l cysts requiring no specific follow-up. No calculi or hydronephrosis in either kidney. Partly decompressed urinary bladder. BOWEL: No small bowel or colonic obstruc tion or inflammatory changes. Normal appendix. LYMPH NODES: No lymphadenopathy. VASCULATURE: No abdominal aortic aneurys m. PELVIC ORGANS: No pelvic masses. No free fluid or fluid collections. No extraluminal air. MUSCULOSKELETAL: Mild degenerative acosta es in the spine. Old healed left-sided rib fractures. No suspicious lesions in the bones. IMPRESSION: 1. Circumferential wall thickening of th e visualized distal esophagus. Correlate clinically for esophagitis. 2. Mild stranding around the pancreatic head, exaggerated by motion artifact. Findings could represent mild acute pancreatitis. 3. Diffuse hepatic steatosis. Indetermin ate 1.6 x 0.7 cm hypodense lesion in the right hepatic lobe. Nonemergent liver MRI should be considered for further characterization. 4. Hyperdense material in the gallbladde r lumen, likely sludge. No calcified gallstones. 5. Multiple bilateral renal cysts, requi ring no specific follow-up. Jason Orozco MD IMG CT ORDERABLES Asymptomatic COVID-19 Virus (Coronavirus) by PCR Nasopharyngeal (12/04/2021 9:44 AM CDT) Analysis Performed At Patho logist Time Signature SARS CoV2 PCR Negative Negative 12/04/2021 LABORATORY 11:07 AM CDT Comment: NEGATIVE: SARS-CoV-2 (COVID-19) RNA not detected, presumed negative. Specimen Anatomical Location / Collection Method Collection Ben e Received Time (Source) Laterality / Volume Swab NASOPHARYNGEAL Non-blood 12/04/2021 9:44 12/04/2021 STRUCTURE / Unknown Collection / AM CDT 10:21 AM CDT Unknown Narrative LABORATORY - 12/04/2021 11:07 AM CDT Testing was performed using the Xpert Xpress SARS-CoV-2 Assay on the [employer]. A dditional information about this Emergency Use Authorization (EUA) a ssay can be found via the Lab Guide. This test should be ordered for t he detection of SARS-CoV-2 in individuals who meet SARS-CoV-2 clinical and/or epidemiological criteria. Test performance is unknown in asymptomatic patients. This test is for in vitro diagnostic use unde r the FDA EUA for laboratories certified under CLIA to per form high complexity testing. This test has not been FDA cleared or ap proved. A negative result does not rule out the presence of PCR in hibitors in the specimen or target RNA in concentration below the li anderson of detection for the assay. The possibility of a false negati ve should be considered if the patient's recent exposure or clinica l presentation suggests COVID-19. This test was validated by the [facility]. This laboratory is certified under the Clinical Laboratory Improvement Amendments of 1988 (CLIA-88) as qualified to perform high complexity laboratory testing. Jason Orozco MD LAB - MICRO GENERAL ORDERABL ES Performing Organization Address City/[facility]/ZIP Code Phon [place] [address] Care Lab [address] Lab (1st floor, no room number) (ABNORMAL) Lactic acid whole blood (12/04/2021 8:26 AM CDT) P athologist Signature Lactic Acid 2.5 (H) 0.7 - 2.0 12/04/2021 [facility] mmol/L 8:37 AM CDT Specimen Anatomical Collection Method / Collection Time Recei rehana Time (Source) Location / Volume Laterality Blood, venous STRUCTURE OF RIGHT Venipuncture / 12/04/2021 8:26 8:34 UPPER LIMB / Unknown AM CDT AM CDT Unknown Jason Orozco MD LAB - BLOOD ORDERABLES Performing Organization Address [facility]/ZIP [facility] [place] [address] Care Lab [address] Lab (1st floor, no room number) (ABNORMAL) Blood gas venous (12/04/2021 8:26 AM CDT) Patholo gist Method Time Signature pH Venous 7.38 7.32 - 12/04/2021 [facility] 7.43 8:37 AM CDT pCO2 Venous 24 (L) 40 - 50 12/04/2021 [facility] mm Hg 8:37 AM CDT pO2 Venous 38 25 - 47 12/04/2021 [facility] mm Hg 8:37 AM CDT Bicarbonate 14 (L) 21 - 28 12/04/2021 [facility] Venous mmol/L 8:37 AM CDT Base -9.5 (L) -7.7 - 12/04/2021 [facility] Excess/Deficit 1.9 8:37 AM CDT (+/-) mmol/L FIO2 0 CLAUDIO 12/04/2021 [facility] 8:37 AM CDT Comment: RMA Specimen Anatomical Collection Method / Collection Time Recei rehana Time (Source) Location / Volume Laterality Blood, venous STRUCTURE OF RIGHT Venipuncture / 12/04/2021 8:26 8:34 UPPER LIMB / Unknown AM CDT AM CDT Unknown Jason Orozco MD LAB - BLOOD ORDERABLES Performing Organization Address City/State/ZIP Code Phon e Number [place] [address] Care Lab [address] Lab (1st floor, no room number) (ABNORMAL) CBC with platelets and differential (12/04/2021 8:14 AM CDT) [facility] gist Method Time Signature WBC Count 8.5 4.0 - 12/04/2021 [facility] 11.0 9:01 AM CDT 10e3/uL RBC Count 4.08 (L) 4.40 - 12/04/2021 [facility] 5.90 9:01 AM CDT 10e6/uL Hemoglobin 12.4 (L) 13.3 - 12/04/2021 [facility] 17.7 g/dL 9:01 AM CDT Hematocrit 37.4 (L) 40.0 - 12/04/2021 [facility] 53.0 % 9:01 AM CDT MCV 92 78 - 100 12/04/2021 [facility] fL 9:01 AM CDT MCH 30.4 26.5 - 12/04/2021 [facility] 33.0 pg 9:01 AM CDT MCHC 33.2 31.5 - 12/04/2021 [facility] 36.5 g/dL 9:01 AM CDT RDW 13.2 10.0 - 12/04/2021 [facility] 15.0 % 9:01 AM CDT Platelet Count 115 (L) 150 - 450 12/04/2021 [facility] 10e3/uL 9:01 AM CDT % Neutrophils 78 % 12/04/2021 [facility] 9:01 AM CDT % Lymphocytes 11 % 12/04/2021 [facility] 9:01 AM CDT % Monocytes 10 % 12/04/2021 [facility] 9:01 AM CDT % Eosinophils 0 % 12/04/2021 [facility] 9:01 AM CDT % Basophils 0 % 12/04/2021 [facility] 9:01 AM CDT % Immature 1 % 12/04/2021 [facility] Granulocytes 9:01 AM CDT NRBCs per 100 0 <1 /100 12/04/2021 [facility] WBC 9:01 AM CDT Absolute 6.6 1.6 - 8.3 12/04/2021 [facility] Neutrophils 10e3/uL 9:01 AM CDT Absolute 0.9 0.8 - 5.3 12/04/2021 [facility] Lymphocytes 10e3/uL 9:01 AM CDT Absolute 0.9 0.0 - 1.3 12/04/2021 [facility] Monocytes 10e3/uL 9:01 AM CDT Absolute 0.0 0.0 - 0.7 12/04/2021 [facility] Eosinophils 10e3/uL 9:01 AM CDT Absolute 0.0 0.0 - 0.2 12/04/2021 [facility] Basophils 10e3/uL 9:01 AM CDT Absolute 0.1 <=0.4 12/04/2021 [facility] Immature 10e3/uL 9:01 AM CDT Granulocytes Absolute NRBCs 0.0 10e3/uL 12/04/2021 [facility] 9:01 AM CDT Specimen Anatomical Collection Method / Collection Time Recei rehana Time (Source) Location / Volume Laterality Blood VENOUS LINE / Venipuncture / 12/04/2021 8:14 8:23 Unknown Unknown AM CDT AM CDT Jason Orozco MD LAB - BLOOD ORDERABLES Performing Organization Address City/State/ZIP Code [place] [address] Care Lab [address] Lab (1st floor, no room number) (ABNORMAL) Lipase (12/04/2021 8:14 AM CDT) P athologist Signature Lipase 411 (H) 13 - 60 U/L 12/04/2021 [facility] 9:09 AM CDT Specimen Anatomical Collection Method / Collection Time Recei rehana Time (Source) Location / Volume Laterality Blood VENOUS LINE / Venipuncture / 12/04/2021 8:14 2 8:22 Unknown Unknown AM CDT AM CDT Jsaon Orozco MD LAB - BLOOD ORDERABLES Performing Organization Address City/State/[place] [address] Care Lab [address] Lab (1st floor, no room number) (ABNORMAL) Ketone Beta-Hydroxybutyrate Quantitative (12/04/2021 8:14 AM CDT) Patholo gist Method Time Signature Ketone 7.9 (HH) 0.0 - 0.6 12/04/2021 [facility] (Beta-Hydroxybut mmol/L 8:42 AM CDT yrate) Quantitative Specimen Anatomical Collection Method / Collection Time Recei rehana Time (Source) Location / Volume Laterality Blood VENOUS LINE / Venipuncture / 12/04/2021 8:14 2 8:22 Unknown Unknown AM CDT AM CDT Jason Orozco MD LAB - BLOOD ORDERABLES Performing Organization Address City/[facility]/[place] [address] Care Lab [address] Lab (1st floor, no room number) (ABNORMAL) Alcohol level blood (12/04/2021 8:14 AM CDT) Analysis Performed At Patho logist Time Signature Alcohol ethyl 0.03 (H) <=0.00 12/04/2021 [facility] g/dL 9:00 AM CDT Specimen Anatomical Collection Method / Collection Time Recei rehana Time (Source) Location / Volume Laterality Blood VENOUS LINE / Venipuncture / 12/04/2021 8:14 2 8:22 Unknown Unknown AM CDT AM CDT Jason Orozco MD LAB - BLOOD ORDERABLES Performing Organization Address City/[facility]/[place] [address] Care Lab [address] Lab (1st floor, no room number) EKG 12-lead, tracing only (12/04/2021 8:01 AM CDT) Component Value Ref Range Test Analysis Performed Pathologis t Method Time At Signature Systolic Blood mmHg RADIOLOGY Pressure RESULTS Diastolic Blood mmHg RADIOLOGY Pressure RESULTS Ventricular Rate 119 BPM RADIOLOGY RESULTS Atrial Rate 117 BPM RADIOLOGY RESULTS TN Interval 122 ms RADIOLOGY RESULTS QRS Duration 94 ms RADIOLOGY RESULTS QT 328 ms RADIOLOGY RESULTS QTc 461 ms RADIOLOGY RESULTS P [place] 35 degrees RADIOLOGY RESULTS R AXIS -19 degrees RADIOLOGY RESULTS T [place] 77 degrees RADIOLOGY RESULTS Interpretation Undetermined rhythm RADIO LOGY ECG Left ventricular hypertrophy with repolarization abnormality RESULTS 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) Abnormal ECG When compared with ECG of 01-JUL-2009 09:22, Current undetermined rhythm precludes rhythm comparison, lacy chappell review Nonspecific T wave abnormality has repla korut[place] inverted T waves in Inferior leads Nonspecific T wave abnormality now evident in Anterior leads Confirmed by - EMERGENCY TARUN Mora, PHYSICIAN ([id number]), publishing editor TATA ROMERO ([id number]) on 12/05/2021 9:26:19 AM Specimen Anatomical Collection Method Collection Time Receive d Time (Source) Location / / Volume Laterality 12/04/2021 8:01 AM 9:26 CDT AM CDT Jason Orozco MD ECG ORDERABLES Performing Organization Address City/State/ZIP Code Phon e Number RADIOLOGY RESULTS from Last 3 Months Additional Health Concerns Infection Onset Date Last 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 05/13/2021 Insurance Payer Benefit Plan / Subscriber ID Effective Phone Address T ype Group Dates [place] [id number] 2021-Pres [phone] [address] Medicaid ent [address] [place] [address] (Home) [place] [id number] Advance Directives For more information, please contact: [phone] Latest Code Status on File Code Status Date Activated Date Inactivated Comments Full Code 12/04/2021 3:46 PM 2021 1:02 PM All basic an d advanced life-sustaining interventions are performed as alexandru ropriate Question Answer Comments Code status determined by: Discussion with patient/ legal de cision maker Care Teams Health Nurse Relationship Specialty Start Date End Date Juan Farias, PCP - General Cardiovascular Disease 12/04/21 [address] [place] [id number] Denise Connell Physician [employer] Associate Cardiovascular Disease 08/12/21 MARIETTA Watson [address] [place] [id number] Dana Barry Assigned Heart and 01/15/22 MARIETTA Teague Vascular Provider [address] [place] [phone]
--- OUTSIDE RECORDS SUMMARY | 2022-02-12 13:46 | XMS_ITS | Encounter Summary ---
:1960 Author Organization [place] Address [address] [place] [address] Care Team Providers Name Role Phone Denise Connell PA-C Unavailable [phone] Denise Connell PA-C Unavailable [phone] Juan Farias MD Primary Care Provider Reason for Visit Reason Onset Date Comments Refill Request 12/17/2021 lipitor Encounter Details Date Type Department Care Team Description 12/17/2021 Refill [facility] Heart Denise Connell Re fill Request (lipitor) Clinic Annika Watson PA-C [address] [facility] [address] [place] [address] [address] [place] [phone] [place] [id number] (Wo rk) Social History Tobacco Use Types Packs/Day Years [...] have Coronavirus/COVID-19? documented as of this encounter Miscellaneous Notes Telephone Encounter - Mack Weiner RN - 12/17/2021 9:10 AM CDT [facility] Cardiology Refill Guideline reviewed. Refill meets criteria. documented in this encounter Plan of Treatment Not on filedocumented as of this encounter Visit Diagnoses Diagnosis Mixed hyperlipidemia documented in this encounter Additional Health Concerns Infection Onset Date Last Indicated Resolved Time MRSA 05/13/2021 05/13/2021 documented as of this encounter Care Teams Preparation Operator Relationship Specialty Start Date End Date Juan Farias, PCP - General Cardiovascular Disease 12/04/21 [address] [place] [id number] Denise Connell Physician Traffic Officer Cardiovascular Disease 08/12/21 MARIETTA Watson [address] [place] [id number] Denise Connell Assigned Heart and 08/22/21 01/14/22 MARIETTA Watson Vascular Provider [address] [place] [id number] documented as of this encounter
--- OUTSIDE RECORDS SUMMARY | 2022-02-12 13:46 | XMS_ITS | Encounter Summary ---
:1960 Author Organization [facility] Address [address] [place] [id number] Care Team Providers Name Role Phone Denise Connell PA-C Unavailable [phone] Denise Connell PA-C Unavailable [phone] Juan Farias MD Primary Care Provider Reason for Visit Reason Comments Chest Pain Auth/Cert Specialty Diagnoses / Procedures Referred By Contact Refer red To Contact Med Surg Diagnoses Alcoholic ketoacidosis Alcoholic ketoacidosis 5 [facility] [address] [place], [place] [address] Phone: Fax: Referral ID Status Reason Start Date Expiration Date Visits Requ ested Visits Authorized [id number] 1 1 Encounter Details Date Type Department Care Team Description 12/04/2021 - [facility] Jason Orozco MD [facility] [address] [place] [address] Alcoholic gastritis without bleeding, un specified chronicity (Primary Dx); 2021 Encounter [facility] Rodger Mantilla MD [address] [place] [address] Alcoholic ketoacidosis; Surgical Sprain of left ankle, unspec ified ligament, initial encounter [address] [place] [id number] Social History Tobacco Use Types Packs/Day Years [...] Sign Reading Time Taken Comments Blood Pressure 138/100 2021 7:49 AM CDT Pulse 92 2021 7:49 AM CDT Temperature 36.8 ??C (98.3 ??F) 2021 7:49 AM CDT Respiratory Rate 20 2021 7:49 AM CDT Oxygen Saturation 96% 2021 7:49 AM CDT Inhaled Oxygen Concentration - - Weight 85.1 kg (187 lb 11.2 oz) 2021 5:45 AM CDT Height 172.7 cm (5' 8) 12/04/2021 7:56 AM CDT Body Mass Index 28.54 12/04/2021 7:56 AM CDT documented in this encounter Discharge Summaries Kelvin Ceballos MD - 2021 9:[address] [facility] Discharge Summary Name: Juan Pablo Brown Date of : 1960 Age: [age] year old Date of Discharge: 2021 Date of Admission: 12/04/2021 Primary Care Provider: Juan Farias Discharge Physician: Ronnie Ceballos MD Discharging Service: Hospitalist Hospital Course/Discharge Diagnoses: Juan Pablo Brown is a 60 year old male with past medical history including alcohol abuse, hypertension, hypercholesteremia who presented to [facility] on 12/04/2021 with abdominal pain associated with nausea and vomiting. Work-up here was suggestive of acute pancreatitis with mildly elevated lipase of [address] scan showing thickness of the visualized distal esophagus and stranding around the pancreatic head. There was diffuse hepatic steatosis seen with the indeterminate 1.6 x 0.7 cm hypodense lesion in the right hepatic lobe with AFP tumor marker of 2.3 which is within normallimits. He was also diagnosed with alcoholic ketoacidosis with anion gap of 40 and normal sugar and k etoacidosis. He was admitted for pain control, dextrose containing IV fluids and electrolyte repletion. He now reports that his abdominal pain is resolved and we have been radually advancing his diet. ?? He does complain of left ankle pain which clinically appears to be a lateral sprain. We are treatingthis conservatively with ice/rest/elevation and compression. X-ray was negative for acute appearing fracture but he does have some heel spurs and a chronic appearing avulsion fracture. PT is following and he is mobile. At this point he has been advanced to a low fat diet and is tolerating that well. Plan to discharge home w/ instructions to abstain from alcohol, have 5-6 small feedings per day and avoid high fat foods while he is recovering. Outpatient follow up advised as below. Date of Admission: 12/04/2021 ?? Assessment & Plan ?? Acute pancreatitis, evidence of Illeus: Improving. SPECT alcohol was the inciting etiology. --tolerating low fat diet. -6 small meals per day, avoid etoh ?? Alcoholic ketoacidosis: Significantly high anion gap of 40 with relatively low sugars and ketones inthe blood --Resolving. ?? Chest discomfort: Suspect GI etiology. Did have esophagitis present on CT scan. --Follow-up in clinic, consider outpatient stress testing though would prefer to treat for esophagitis first w/ increased prilosec dosing (ordered) x 1 month to see if that is necessary. ?? Acute kidney injury: Prerenal etiology in the setting of alcohol abuse, pancreatitis with nausea andvomiting. --Creatinine is much improved and has normalized ?? Acute hypokalemia Acute hypophosphatemia Both will be replaced as per potassium and phosphorus replacement protocols ?? Hyponatremia: Resolved. ?? Probable esophagitis with history of GERD As seen in the CT scan Increased prilosec to 40 mg. ?? Liver mass AFP - normal This needs to be followed non-emergently in the outpatient setting ?? Alcohol abuse --Counseled, currently no evidence of alcohol withdrawal. ?? Essential hypertension Amlodipine 10 mg daily as well as metoprolol succinate 25 mg daily will be continued ?? Hypercholesteremia Atorvastatin 40 mg daily will be continued ?? Discharge Disposition: Discharged to home Allergies: Allergies Allergen Reactions ??? Lisinopril Kidney dysfunction and hyperkalemia Discharge Medications: Review of your medicines START taking Dose / Directions acetaminophen 325 MG tablet Commonly known as: TYLENOL Used for: Sprain of left ankle, unspecified ligament, initial encounter Dose: 650 mg Take 2 tablets (650 mg) by mouth every 4 hours as needed for mild pain, fever or headaches Refills: 0 CONTINUE these medicines which may have CHANGED, or have new prescriptions. If we are uncertain of the size of tablets/capsules you have at home, strength may be listed as something that might have changed. Dose / Directions omeprazole [address] capsule Commonly known as: priLOSEC This may have changed: ?? medication strength ?? how much to take Used for: Alcoholic gastritis without bleeding, unspecified chronicity Dose: 40 mg Take 1 capsule (40 mg) by mouth daily Quantity: 30 capsule Refills: 0 CONTINUE these medicines which have NOT CHANGED Dose / Directions amLODIPine 10 MG tablet Commonly known as: Norvasc Used for: Essential hypertension Dose: 10 mg Take 1 tablet (10 mg) by mouth daily Quantity: 90 tablet Refills: 3 aspirin 81 MG tablet Commonly known as: ASA Dose: 81 mg Take 81 mg by mouth daily Refills: 0 atorvastatin 40 MG tablet Commonly known as: LIPITOR Used for: Mixed hyperlipidemia Dose: 40 mg Take 1 tablet (40 mg) by mouth daily Appointment required for further refills Quantity: 90 tablet Refills: 3 metoprolol succinate ER 25 MG 24 hr tablet Commonly known as: TOPROL XL Used for: Essential hypertension Dose: 25 mg Take 1 tablet (25 mg) by mouth daily Quantity: 90 tablet Refills: 3 Multi-vitamin tablet Used for: Hemorrhage of gastrointestinal tract, unspecified Generic drug: multivitamin w/minerals Dose: 1 tablet Take 1 tablet by mouth daily Refills: 0 OSTEO BI-FLEX ONE PER DAY PO Dose: 1 tablet Take 1 tablet by mouth daily Refills: 0 VITAMIN E PO Dose: 1 tablet Take 1 tablet by mouth daily Refills: 0 Where to get your medicines These medications were sent to [facility] [id number] [id number] ?? omeprazole [address] capsule Some of these will need a paper prescription and others can be bought over the counter. Ask your nurse if you have questions. You don't need a prescription for these medications ?? acetaminophen 325 MG tablet Condition on Discharge: Discharge condition: Stable Code status on discharge: Full Code History of Illness: See detailed admission note for full details. Physical Exam: Vital signs: Temp: 98.3 ??F (36.8 ??C) Temp src: Oral BP: (!) 138/100 Pulse: 92 Resp: 20 SpO2: 96 % O2 Device: None (Room air) Height: 172.7 cm (5' 8) Weight: 85.1 kg (187 lb 11.2 oz) Estimated body mass index is 28.54 kg/m?? as calculated from the following: Height as of this encounter: 1.727 m (5' 8). Weight as of this encounter: 85.1 kg (187 lb 11.2 oz). Wt Readings from Last 1 Encounters: 12/08/21 85.1 kg (187 lb 11.2 oz) General: Alert, awake, no acute distress. HEENT: NC/AT, eyes anicteric, external occular movements intact, face symmetric. Cardiac: RRR, S1, S2. No murmurs appreciated. Pulmonary: Normal chest rise, normal work of breathing. Lungs CTA BL Abdomen: soft, non-tender, non-distended. Bowel Sounds Present. No guarding. Extremities: no deformities. Warm, well perfused. Mild left ankle swelling. Skin: no rashes or lesions noted. Warm and Dry. Neuro: No focal deficits noted. Speech clear. Coordination and strength grossly normal. Psych: Appropriate affect. Procedures other than Imaging: none Imaging: Results for orders placed or performed during the hospital encounter of 12/04/21 CT Abdomen Pelvis w Contrast Narrative EXAM: CT ABDOMEN PELVIS W CONTRAST LOCATION: [facility] DATE/TIME: 12/04/2021 9:52 AM INDICATION: abdominal pain vomiting, eval for obstruction COMPARISON: Renal ultrasound 02/14/2020 TECHNIQUE: CT scan of the abdomen and pelvis was performed following injection of IV contrast. Multiplanar reformats were obtained. Dose reduction techniques were used. CONTRAST: 90mL Isovue 370 FINDINGS: LOWER CHEST: The visualized lung bases are clear. Circumferential wall thickening of the visualized distal esophagus. HEPATOBILIARY: Marked diffuse hepatic steatosis. A 1.6 x 0.7 cm hypodense lesion [...] Normal. ADRENAL GLANDS: Normal. KIDNEYS/BLADDER: Multiple bilateral renal cysts requiring no specific follow-up. No calculi or hydronephrosis in either kidney. Partly decompressed urinary bladder. BOWEL: No small bowel or colonic obstruction or inflammatory changes. Normal appendix. LYMPH NODES: No lymphadenopathy. VASCULATURE: No abdominal aortic aneurysm. PELVIC ORGANS: No pelvic masses. No free fluid or fluid collections. No extraluminal air. MUSCULOSKELETAL: Mild degenerative changes in the spine. Old healed left-sided rib fractures. No suspicious lesions in the bones. Impression IMPRESSION: 1. Circumferential wall thickening of the visualized distal esophagus. Correlate clinically for esophagitis. 2. Mild stranding around the pancreatic head, exaggerated by motion artifact. Findings could represent mild acute pancreatitis. 3. Diffuse hepatic steatosis. Indeterminate 1.6 x 0.7 cm hypodense lesion in the right hepatic lobe.Nonemergent liver MRI should be considered for further characterization. 4. Hyperdense material in the gallbladder lumen, likely sludge. No calcified gallstones. 5. Multiple bilateral renal cysts, requiring no specific follow-up. XR Ankle Left G/E 3 Views Narrative XR ANKLE LEFT G/E 3 VIEWS 12/06/2021 2:48 PM HISTORY: Left ankle pain. Recent injury. COMPARISON: None. Impression IMPRESSION: No acute fracture. Small chronic avulsion fracture fragments involving the tip of the medial malleolus. Ankle mortise is intact. Mild soft tissue swelling around the ankle. Tiny plantar and Achilles heel spurs. CLARKE CHURCHILL MD Consultations: No consultations were requested during this admission. Recent Lab Results: Recent Labs Lab 12/07/21 0537 12/06/21 0625 12/05/21 0651 12/04/21 0814 WBC 6.1 -- 7.0 8.5 HGB 11.4* -- 10.7* 12.4* HCT 34.7* -- 32.6* 37.4* MCV 92 -- 91 92 PLT 141* 101* 78* 115* Lab Results Component Value Date NA 135 12/07/2021 NA 134 12/06/2021 NA 136 12/05/2021 NA 134 02/21/2020 NA 133 01/27/2020 NA 137 11/29/2018 Lab Results Component Value Date CHLORIDE 93 12/07/2021 CHLORIDE 94 12/06/2021 CHLORIDE 95 12/05/2021 CHLORIDE 104 08/13/2021 CHLORIDE 100 02/21/2020 CHLORIDE 101 01/27/2020 CHLORIDE 102 11/29/2018 Lab Results Component Value Date BUN 3.7 12/07/2021 BUN 3.3 12/06/2021 BUN 9.2 12/05/2021 BUN 12 08/13/2021 BUN 13 02/21/2020 BUN 13 01/27/2020 BUN 15 11/29/2018 Lab Results Component Value Date POTASSIUM 3.8 2021 POTASSIUM 3.8 12/07/2021 POTASSIUM 3.0 12/07/2021 POTASSIUM 4.1 08/13/2021 POTASSIUM 3.4 02/21/2020 POTASSIUM 3.7 01/27/2020 POTASSIUM 4.0 11/29/2018 Lab Results Component Value Date CO2 33 12/07/2021 CO2 24 12/06/2021 CO2 21 12/05/2021 CO2 26 08/13/2021 CO2 26 02/21/2020 CO2 24 01/27/2020 CO2 27 11/29/2018 Lab Results Component Value Date CR 0.76 12/07/2021 CR 0.72 12/06/2021 CR 0.93 12/05/2021 CR 1.04 02/21/2020 CR 1.10 01/27/2020 CR 1.11 11/29/2018 Recent Labs Lab 12/07/21 0537 12/06/21 0626 12/05/21 0651 AST 75* 44 46 ALT 41 28 33 ALKPHOS 72 74 66 BILITOTAL 1.4* 1.0 1.2 No results for input(s): INR in the last 168 hours. Pending Results: Unresulted Labs Ordered in the Past 30 Days of this Admission No orders found from 11/04/2021 to 12/05/2021. Discharge Instructions and Follow-Up: Discharge Procedure Orders Reason for your hospital stay Order Comments: You were admitted for pancreatitis Activity Order Comments: Your activity upon discharge: activity as tolerated Order Specific Question Answer Comments Is discharge order? Yes Follow-up and recommended labs and tests Order Comments: Follow up with primary care provider within 2 weeks for hospital follow-up. If your ankle pain has not resolved at that point please discuss further work-up with your primary care doctor. Also, you were incidentally found to have a mass on your liver. It is unclear what this is so you should have further imaging, likely an MRI dedicated to evaluating liver lesions. Please discuss that with your primary care doctor as well. Diet Order Comments: Follow this diet upon discharge: Orders Placed This Encounter Low Fat Diet Order Specific Question Answer Comments Is discharge order? Yes Total time spent in face to face contact with the patient and coordinating discharge was: 40 Minutes. documented in this encounter Medications at Time of Discharge Medication Sig Dispensed Refills Start Date End Date acetaminophen (TYLENOL) Take 2 tablets (650 0 325 MG tabletIndications: mg) by mouth every Sprain of left ankle, 4 hours as needed unspecified ligament, for mild pain, initial encounter fever or headaches aspirin 81 MG tablet Take 81 mg by mouth 0 daily Kjewxigng-Pamaxgdxkov-Ari Take 1 tablet by 0 D (OSTEO BI-FLEX ONE PER mouth daily DAY PO) magnesium oxide (MAG-OX) Take 400 mg by 0 022 400 MG tablet mouth 2 times daily MULTI-VITAMIN OR Take 1 tablet by 0 TABSIndications: mouth daily Hemorrhage of gastrointestinal tract, unspecified omeprazole (PRILOSEC) 40 Take 1 capsule ([address] capsuleIndications: mg) by mouth daily Alcoholic gastritis without bleeding, unspecified chronicity VITAMIN E PO Take 1 tablet by 0 mouth daily amLODIPine (NORVASC) 10 Take 1 tablet (10 90 tablet 3 10/2601/05/2022 MG tabletIndications: mg) by mouth daily Essential hypertension amLODIPine (NORVASC) 5 MG Take 5 mg by mouth 0 01/05/2022 tablet daily atorvastatin (LIPITOR) 40 Take 1 tablet (40 90 tablet 3 12/17/2021 MG tabletIndications: mg) by mouth daily Mixed hyperlipidemia Appointment required for further refills metoprolol succinate ER Take 1 tablet (25 90 tablet 3 08/1601/05/2022 (TOPROL-XL) 25 MG 24 hr mg) by mouth daily tabletIndications: Essential hypertension documented as of this encounter Progress Notes Restricted notes were excluded Viktoriya Staples Rosa, PT - 12/07/2021 2:09 PM CDT 12/07/21 1009 Quick Adds Type of Visit Initial PT Evaluation Living Environment People in Home parent(s) Current Living Arrangements house Home Accessibility stairs to enter home;stairs within home Number of Stairs, Main Entrance 1 Stair Railings, Main Entrance none Number of Stairs, Within Home, Primary greater than 10 stairs;other (see comments) (15) Stair Railings, Within Home, Primary railing on left side (ascending) Transportation Anticipated family or friend will provide;car, drives self Self-Care Usual Activity Tolerance good Current Activity Tolerance moderate Equipment Currently Used at Home none Fall history within last six months yes Number of times patient has fallen within last six months 1 Activity/Exercise/Self-Care Comment reports being independent with mobility and cares and works making [employer] EXTENDED STAYS General Information Onset of Illness/Injury or Date of Surgery 12/04/21 Referring Physician Rodger [facility] MD Patient/Family Therapy Goals Statement (PT) return home with parents Pertinent History of Current Problem (include personal factors and/or comorbidities that impact the POC) per chart: 60 year old male with past medical history including alcohol abuse, hypertension, hypercholesteremia who presented to [facility] on 12/04/2021 with abdominal pain associatedwith nausea and vomiting. Work-up here was suggestive of acute pancreatitis with mildly elevated lipase of [address] scan showing thickness of the visualized distal esophagus and stranding around the pancreatic head. There was diffuse hepatic steatosis seen with the indeterminate 1.6 x 0.7 cm hypodense lesion in the right hepatic lobe with AFP tumor marker of 2.3 which is within normal limits. He was also diagnosed with alcoholic ketoacidosis with anion gap of 40 and normal sugar and ketoacidosis. He was admitted for pain control, dextrose containing IV fluids and electrolyte repletion; seemedical record for further information Weight-Bearing Status - LLE weight-bearing as tolerated General Observations patient up independently in room per nurse Cognition Orientation Status (Cognition) oriented x 3 Pain Assessment Patient Currently in Pain Yes, see Vital Sign flowsheet (L ankle with weightbearing) Integumentary/Edema Integumentary/Edema Comments L ankle with some increased edema compared to R Range of Motion (ROM) ROM Comment decreased AROM of L ankle secondary to edema Strength (Manual Muscle Testing) Strength Comments mild functional weakness noted with mobility; further limited by some L ankle pain Bed Mobility Comment, (Bed Mobility) independent Transfers Comment, (Transfers) mod I in room Gait/Stairs (Locomotion) Comment, (Gait/Stairs) able to ambulate in room with use of IV pole Balance Balance Comments no gross LOB Clinical Impression Criteria for Skilled Therapeutic Intervention Yes, treatment indicated PT Diagnosis (PT) impaired functional mobility Influenced by the following impairments L ankle pain; decreased L ankle ROM/strength; gait instability Functional limitations due to impairments impaired independence with functional mobility secondary to above deficits Clinical Presentation (PT Evaluation Complexity) Stable/Uncomplicated Clinical Presentation Rationale clinical judgement; level of assist Clinical Decision Making (Complexity) low complexity Planned Therapy Interventions (PT) gait training Anticipated Equipment Needs at Discharge (PT) cane, straight Risk & Benefits of therapy have been explained evaluation/treatment results reviewed;care plan/treatment goals reviewed;risks/benefits reviewed;current/potential barriers reviewed;participants voiced agreement with care plan;participants included;patient Clinical Impression Comments slightly below baseline level of function; does best with cane currently PT Discharge Planning PT Discharge Recommendation (DC Rec) home;home with assist PT Rationale for DC Rec Anticipate patient will be safe to discharge to home with parents and use ofa cane secondary to L ankle discomfort; encouraged to use cane, ice; keep distances shorter and elevated L LE; encouraged to do ROM ex's Plan of Care Review Plan of Care Reviewed With patient;other (see comments) (Nurse) Total Evaluation Time Total Evaluation Time (Minutes) 15 Physical Therapy Goals PT Frequency One time eval and treatment only PT Predicted Duration/Target Date for Goal Attainment 12/07/21 PT Goals Gait;Stairs PT: Gait Modified independent PT: Stairs Modified independent Kelvin Ceballos MD - 12/07/2021 11:09 AM CDT Hospitalist Medicine Progress Note [facility] Kelvin Ceballos MD 12/07/2021 Juan Pablo Brown is a 60 year old male with past medical history including alcohol abuse, hypertension, hypercholesteremia who presented to [facility] on 12/04/2021 with abdominal pain associated with nausea and vomiting. Work-up here was suggestive of acute pancreatitis with mildly elevated lipase of [address] scan showing thickness of the visualized distal esophagus and stranding around the pancreatic head. There was diffuse hepatic steatosis seen with the indeterminate 1.6 x 0.7 cm hypodense lesion in the right hepatic lobe with AFP tumor marker of 2.3 which is within normallimits. He was also diagnosed with alcoholic ketoacidosis with anion gap of 40 and normal sugar and k etoacidosis. He was admitted for pain control, dextrose containing IV fluids and electrolyte repletion. He now reports that his abdominal pain is resolved and we are gradually advancing his diet. He does complain of left ankle pain which clinically appears to be a lateral sprain. We are treatingthis conservatively with ice/rest/elevation and compression. X-ray was negative for acute appearing fracture but he does have some heel spurs and a chronic appearing avulsion fracture. PT is following. Date of Admission: 12/04/2021 Assessment & Plan Acute pancreatitis, evidence of Illeus: Improving. SPECT alcohol was the inciting etiology. --Advance to full liquids --Reducing rate of IV fluids today --If tolerating full liquids today might be able to advance to low-fat later today. Alcoholic ketoacidosis: Significantly high anion gap of 40 with relatively low sugars and ketones inthe blood --Resolving. ?? Chest discomfort: Suspect GI etiology. Did have esophagitis present on CT scan. --Follow-up in clinic, consider outpatient stress testing. ?? Acute kidney injury: Prerenal etiology in the setting of alcohol abuse, pancreatitis with nausea andvomiting. --Creatinine is much improved and has normalized ?? Acute hypokalemia Acute hypophosphatemia Both will be replaced as per potassium and phosphorus replacement protocols ?? Hyponatremia: Resolved. ?? Probable esophagitis with history of GERD As seen in the CT scan Patient will be given Protonix twice daily, transition to oral. ?? Liver mass AFP - normal This needs to be followed non-emergently in the outpatient setting ?? Alcohol abuse --Counseled, currently no evidence of alcohol withdrawal. ?? Essential hypertension Amlodipine 10 mg daily as well as metoprolol succinate 25 mg daily will be continued ?? Hypercholesteremia Atorvastatin 40 mg daily will be continued Diet: Full Liquid Diet DVT Prophylaxis: Enoxaparin (Lovenox) SQ Tillman Catheter: Not present Code Status: Full Code Disposition: Hopefully home tomorrow if he can continue to advance his diet and mobilize on his left ankle. The patient's care was discussed with the Patient . Kelvin Ceballos MD Hospitalist Service [facility] Interval History I assumed care today, still has left ankle pain. Based on exam this appears to be a sprain. X-ray negative for acute fracture Denies abdominal pain now, advancing to full liquids. Denies other issues, no evidence of withdrawal currently DC rate of IV fluids, changing some IV medications to oral Data reviewed today: I reviewed all medications, new labs and imaging results over the last 24 hours. Physical Exam Vital Signs: Temp: 98.3 ??F (36.8 ??C) Temp src: Oral BP: 129/79 Pulse: 91 Resp: 20 SpO2: 97 % O2 Device: None (Room air) Weight: 186 lbs 11.2 oz GENERAL: Patient is not in acute distress HEENT: EOM+,Conjunctiva is clear NECK: no Jugular Venous distention HEART: S1 S2 regular Rate and Rhythm, there is no murmur, LUNGS: Respirations are not laboured, Lungs are clear to auscultation without Crepitations or Wheezing ABDOMEN: Soft, nontender. LOWER LIMBS: no Pedal Edema Bilaterally. Left ankle tender laterally with inward rotation MANUAL PLATE FILLER: Alert, Oriented x 3, Moving all the Four Limbs Data Recent Labs Lab 12/07/21 0537 12/06/21 0626 12/06/21 0625 12/05/21 2323 12/05/21 1146 12/05/21 0651 12/04/21 1613 12/04/21 0814 WBC 6.1 -- -- -- -- 7.0 -- 8.5 HGB 11.4* -- -- -- -- 10.7* -- 12.4* MCV 92 -- -- -- -- 91 -- 92 PLT 141* -- 101* -- -- 78* -- 115* NA 135* 134* -- -- -- 136 < > 133* POTASSIUM 3.0* 3.4 3.3* -- 3.2* < > 3.3* < > 3.0* CHLORIDE 93* 94* -- -- -- 95* < > 82* CO2 33* 24 -- -- -- 21* < > 11* BUN 3.7* 3.3* -- -- -- 9.2 < > 17.7 CR 0.76 0.72 -- -- -- 0.93 < > 1.23* ANIONGAP 9 16* -- -- -- 20* < > 40* BRIAN 8.2* 8.0* -- -- -- 7.9* < > 8.8 GLC 132* 154* -- -- -- 115* < > 79 ALBUMIN 3.3* 3.5 -- -- -- 3.6 -- 4.6 PROTTOTAL 6.5 6.2* -- -- -- 6.4 -- 7.9 BILITOTAL 1.4* 1.0 -- -- -- 1.2 -- 1.3* ALKPHOS 72 74 -- -- -- 66 -- 83 ALT 41 28 -- -- -- 33 -- 50 AST 75* 44 -- -- -- 46 -- 75* LIPASE -- -- -- -- -- -- -- 411* < > = values in this interval not displayed. Recent Results (from the past 24 hour(s)) XR Ankle Left G/E 3 Views Narrative XR ANKLE LEFT G/E 3 VIEWS 12/06/2021 2:48 PM HISTORY: Left ankle pain. Recent injury. COMPARISON: None. Impression IMPRESSION: No acute fracture. Small chronic avulsion fracture fragments involving the tip of the medial malleolus. Ankle mortise is intact. Mild soft tissue swelling around the ankle. Tiny plantar and Achilles heel spurs. CLARKE CHURCHILL MD Amirah Bob LSW - 12/07/2021 10:04 AM CDT Care Management Discharge Note Discharge Date: 12/07/2021 Discharge Disposition: Home - going to stay with his parents. Discharge Services: None Discharge DME: None Discharge Transportation: car, drives self - pt will take a taxi to [place] [address] in [place] where his car is. Private pay costs discussed: Not applicable PAS Confirmation Code: (N/A) Patient/family educated on Medicare website which has current facility and service quality ratings: (N/A) Education Provided on the Discharge Plan: yes Persons Notified of Discharge Plans: Pt, pt's bedside nurse Patient/Family in Agreement with the Plan: yes Handoff Referral Completed: No Additional Information: The pt will discharge today to his parent's home and stay with them. He talked with his parents again this morning and they are agreeable to this plan. The pt said that he has money with him to pay fora taxi, so Sw provided him with the phone number for [employer]. Sw will continue to be available as needed until discharge. ELVA Conklin, [facility] Inpatient Care Coordination [facility] [phone], LD - 12/06/2021 9:30 AM CDT CLINICAL NUTRITION SERVICES - ASSESSMENT NOTE Recommendations Ordered by Registered Dietitian (RD): Diet advancement per MD Malnutrition: % Weight Loss: Weight loss does not meet criteria for malnutrition % Intake: </= 50% for >/= 5 days (severe malnutrition) Subcutaneous Fat Loss: Orbital region mild depletion and Upper arm region mild- moderate depletion Muscle Loss: Clavicle bone region mild-moderate depletion and Scapular bone region mild-moderate depletion Fluid Retention: none noted Malnutrition Diagnosis: Moderate malnutrition In Context of: Acute illness or injury Environmental or social circumstances REASON FOR ASSESSMENT Juan Pablo Brown is a 60 year old male seen by Registered Dietitian for Admission Nutrition Risk Screen for positive Past medical history: hypertension, hypercholesteremia, alcohol withdrawal Admitted for: acute pancreatitis and alcoholic ketoacidosis NUTRITION HISTORY - Information obtained from patient and chart - Typical diet at home: regular diet - Typical food/fluid intake NATURAL SCIENCES 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 - Supplements: none - Chewing/swallowing difficulty: none - Food allergies: NKFA CURRENT NUTRITION ORDERS Diet Order: NPO Current Intake/Tolerance: NPO Obtained from Chart/Interdisciplinary Team: - Reviewed stooling patterns - No documented PI ANTHROPOMETRICS Height: 5' 8 Weight: 83.2 kg ( 183 lbs 6.4 oz) Body mass index is 27.89 kg/m??. Weight Status: Overweight BMI 25-29.9 Weight History: weight loss of 5.3 kg (6%) over the past ~ 4 months. Pt reports a weight loss of 10 lbs since being hospitalized. Wt Readings from Last 10 Encounters: 12/06/21 83.2 kg (183 lb 6.4 oz) 08/16/21 88.5 kg (195 lb) 02/24/20 88.5 kg (195 lb) 01/30/20 89.5 kg (197 lb 4.8 oz) 11/29/18 89.2 kg (196 lb 9.6 oz) 09/15/17 94.9 kg (209 lb 3.2 oz) 08/04/16 93.4 kg (205 lb 14.4 oz) 08/05/15 99.7 kg (219 lb 12.8 oz) 07/03/14 98.4 kg (217 lb) 09/18/08 86.2 kg (190 lb) LABS Labs reviewed Labs: Electrolytes Potassium (mmol/L) Date Value 12/06/2021 3.3 (L) 12/05/2021 3.2 (L) 12/05/2021 2.9 (L) 08/13/2021 4.1 02/21/2020 3.4 01/27/2020 3.7 11/29/2018 4.0 Phosphorus (mg/dL) Date Value 12/06/2021 1.7 (L) 12/06/2021 1.6 (L) 12/05/2021 1.7 (L) 12/05/2021 1.6 (L) 12/04/2021 1.2 (L) 03/21/2009 2.7 03/19/2009 2.5 03/18/2009 2.3 (L) 03/18/2009 1.6 (L) 03/17/2009 2.7 Blood Glucose Glucose (mg/dL) Date Value 12/05/2021 115 (H) 12/04/2021 118 (H) 12/04/2021 79 08/13/2021 123 (H) 02/21/2020 95 01/27/2020 85 11/29/2018 120 (H) 09/15/2017 126 (H) 08/12/2016 88 Hemoglobin A1C (%) Date Value 08/13/2021 5.6 01/27/2020 5.7 (H) 11/29/2018 6.1 (H) 09/27/2017 6.1 (H) 07/31/2006 6.8 (H) Inflammatory Markers CRP Cardiac Risk (mg/L) Date Value 07/31/2006 10.6 WBC (10e9/L) Date Value 07/03/2009 6.9 07/02/2009 4.2 07/01/2009 3.9 (L) WBC Count (10e3/uL) Date Value 12/05/2021 7.0 12/04/2021 8.5 Albumin (g/dL) Date Value 12/05/2021 3.6 12/04/2021 4.6 07/03/2009 3.4 (L) 07/02/2009 3.3 (L) 07/01/2009 3.7 (L) Magnesium (mg/dL) Date Value 12/06/2021 1.4 (L) 12/05/2021 1.8 12/04/2021 2.5 (H) 03/21/2009 1.5 (L) 03/20/2009 2.7 (H) 03/20/2009 1.2 (L) Sodium (mmol/L) Date Value 12/05/2021 136 12/04/2021 134 (L) 12/04/2021 133 (L) 02/21/2020 134 01/27/2020 133 11/29/2018 137 Renal Urea Nitrogen (mg/dL) Date Value 12/05/2021 9.2 12/04/2021 15.4 12/04/2021 17.7 08/13/2021 12 02/21/2020 13 01/27/2020 13 11/29/2018 15 Creatinine (mg/dL) Date Value 12/05/2021 0.93 12/04/2021 1.16 12/04/2021 1.22 (H) 02/21/2020 1.04 01/27/2020 1.10 11/29/2018 1.11 Additional Triglycerides (mg/dL) Date Value 08/13/2021 139 03/11/2020 134 01/27/2020 99 11/29/2018 152 (H) Ketones Urine (mg/dL) Date Value 12/04/2021 100 (A) 07/04/2009 Negative MEDICATIONS Medications reviewed ??? amLODIPine 10 mg Oral Daily ??? atorvastatin 40 mg Oral Daily ??? enoxaparin ANTICOAGULANT 40 mg Subcutaneous Q24H ??? metoprolol succinate ER 25 mg Oral Daily ??? pantoprazole (PROTONIX) IV 40 mg Intravenous BID ??? sodium chloride (PF) 3 mL Intracatheter Q8H ??? sodium phosphate 9 mmol Intravenous Q2H ??? lactated ringers 150 mL/hr at 12/06/21 0502 acetaminophen, HYDROmorphone, lidocaine 4%, lidocaine (buffered or not buffered), melatonin, menthol(Topical Analgesic) 2.5%, naloxone OR naloxone OR naloxone OR naloxone, ondansetron OR ondansetron, prochlorperazine OR prochlorperazine OR prochlorperazine, sodium chloride (PF) ASSESSED NUTRITION NEEDS PER APPROVED PRACTICE GUIDELINES: Dosing Weight 83.2 kg Estimated Energy Needs: 7115-1500 kcals (25-30 Kcal/Kg) Justification: maintenance Estimated Protein Needs: 83-100 grams protein (1-1.2 g pro/Kg) Justification: maintenance Estimated Fluid Needs: per MD NUTRITION DIAGNOSIS: Inadequate oral intake related to increased nausea and vomiting with food/fluids as evidenced by pt consuming <50% of nutritional needs for the past >5 days NUTRITION INTERVENTIONS Recommendations / Nutrition Prescription Diet advancement per MD Implementation Nutrition education: Provided education on role of RD Collaboration and Referral of Nutrition care: discussed patient during interdisciplinary rounds thismorning Nutrition Goals Diet to advance >/=fulls in the next 48-72 hours MONITORING AND EVALUATION: Progress towards goals will be monitored and evaluated per protocol and Practice Guidelines Kenzie Dover RD, [place] Clinical Dietitian 3rd floor/ICU: [phone] All other floors: [phone] Weekend/holiday: [phone] Office: [phone] Rodger Mantilla MD - 12/05/2021 12:23 PM CDT Hospitalist Medicine Progress Note [facility] Juan Pablo Brown is a 60 year old gentleman with alcohol abuse, hypertension, hypercholesteremia whocame in with abdominal pain associated with nausea and vomiting and was diagnosed with acute pancreatitis with elevated lipase of 411 CT scan showing thickness of the visualized distal esophagus, stranding around the pancreatic head sales representative wire rope of acute pancreatitis. There was diffuse hepatic steatosis seen with the indeterminate 1.6 x 0.7 cm hypodense lesion in the right hepatic lobe with AFP tumor marker of 2.3 which is within normal limits. He was also diagnosed with alcoholic ketoacidosis with anion gap of 40 and normal sugar and ketoacidosis. With dextrose containing IV fluid the anion gap has decreased to 20 the following day. Patient's potassium was low and so was the phosphorus for which patient is on replacement. Date of Admission: 12/04/2021 Assessment & Plan Acute pancreatitis Illeus Clinically patient has upper abdominal and chest pain associated with nausea and vomiting on eating Patient's lipase is about [address] scan showing signs of pancreatic stranding We will keep patient NPO with IV fluid support as eating on 12/04/2021 resulted in nausea and Vomiting and the bowel sounds are still decreased Pain medications will be given Antinausea medications will be given CBC and CMP will be checked in the morning There is gallbladder sludge therefore liver functions need to be followed ?? Alcoholic ketoacidosis Significantly high anion gap of 40 with relatively low sugars and ketones in the blood On dextrose containing IV fluids Anion gap is much improved from 40 to 20 Monitor BMP later in the morning ?? Chest discomfort ECG shows changes nonspecific for acute OK nevertheless there is progressive loss of R wave progression and inferior leads Troponin is mildly elevated We will do a stress test as outpatient I doubt if this is acute coronary syndrome Chest pain could also be from esophagitis that the patient has ?? Acute kidney injury Probably on the basis of hypovolemia and dehydration IV fluids will be given Creatinine is much improved and has normalized ?? Acute hypokalemia Acute hypophosphatemia Both will be replaced as per potassium and phosphorus replacement protocols I will give to grams of magnesium sulfate with relatively lower side magnesium of 1.8 in a alcoholicpatient who is potassium is not improving ?? Hyponatremia Probably on the basis of dehydration/hypovolemia With IV fluids this is improved to normal 136 ?? Probable esophagitis with history of GERD As seen in the CT scan Patient will be given Protonix twice daily ?? Liver mass AFP - normal This needs to be followed non-emergently at this time ?? Alcohol abuse Monitor closely for alcohol withdrawal Patient needs to quit drinking ?? Essential hypertension Amlodipine 10 mg daily as well as metoprolol succinate 25 mg daily will be continued ?? Hypercholesteremia Atorvastatin 40 mg daily will be continued Plan: Will still hold on giving food at this time given the ileus and the nausea vomiting on eating May start oral clear liquid diet in a.m. CMP, magnesium, phosphorus in a.m. CBC in am Diet: NPO for Medical/Clinical Reasons Except for: Ice Chips, Meds DVT Prophylaxis: Enoxaparin (Lovenox) SQ Tillman Catheter: Not present Code Status: Full Code The patient's care was discussed with the Patient . Rodger Mantilla MD Hospitalist Service [facility] Interval History Symptoms Patient's abdominal pain is better his nausea is still present though better than before Yesterday on drinking liquids he threw up and had abdominal pain Review of Systems: Patient states that he talked to his mother and father at night return to their from upon discharge Data reviewed today: I reviewed all medications, new labs and imaging results over the last 24 hours. Physical Exam Vital Signs: Temp: 98.4 ??F (36.9 ??C) Temp src: Oral BP: 132/76 Pulse: 91 Resp: 20 SpO2: 98 % O2 Device: None (Room air) Weight: 183 lbs 1.6 oz GENERAL: Patient is not in acute distress HEENT: EOM+,Conjunctiva is clear NECK: no Jugular Venous distention HEART: S1 S2 regular Rate and Rhythm, there is no murmur, LUNGS: Respirations are not laboured, Lungs are clear to auscultation without Crepitations or Wheezing ABDOMEN: Soft, there is minimal epigastric tenderness ,Bowel Sounds are decreased LOWER LIMBS: no Pedal Edema Bilaterally MANUAL PLATE FILLER: Alert, Oriented x 3, Moving all the Four Limbs Data Recent Labs Lab 12/05/21 1146 12/05/21 0651 12/04/21 2354 12/04/21 1944 12/04/21 1613 12/04/21 0814 WBC -- 7.0 -- -- -- 8.5 HGB -- 10.7* -- -- -- 12.4* MCV -- 91 -- -- -- 92 PLT -- 78* -- -- -- 115* NA -- 136 -- 134* -- 133* POTASSIUM 2.9* 3.3* 2.9* 3.2* -- 3.0* CHLORIDE -- 95* -- 91* -- 82* CO2 -- 21* -- 17* -- 11* BUN -- 9.2 -- 15.4 -- 17.7 CR -- 0.93 -- 1.16 1.22* 1.23* ANIONGAP -- 20* -- 26* -- 40* BRIAN -- 7.9* -- 8.5* -- 8.8 GLC -- 115* -- 118* -- 79 ALBUMIN -- 3.6 -- -- -- 4.6 PROTTOTAL -- 6.4 -- -- -- 7.9 BILITOTAL -- 1.2 -- -- -- 1.3* ALKPHOS -- 66 -- -- -- 83 ALT -- 33 -- -- -- 50 AST -- 46 -- -- -- 75* LIPASE -- -- -- -- -- 411* No results found for this or any previous visit (from the past 24 hour(s)). documented in this encounter H&P Notes Rodger Mantilla MD - 12/04/2021 10:44 AM CDT [facility] History and Physical - Hospitalist Service Date of Admission: 12/04/2021 Assessment & Plan Juan Pablo Brown is a 60 year old male admitted on 12/04/2021. Acute pancreatitis Clinically patient has upper abdominal and chest pain associated with nausea and vomiting on eating Patient's lipase is about [address] scan showing signs of pancreatic stranding We will keep patient NPO with IV fluid support But he is asking me multiple times the same question if he can drink water after having been told that his pain might get worse on eating Pain medications will be given Antinausea medications will be given CBC and CMP will be checked in the morning There is gallbladder sludge therefore liver functions need to be followed Alcoholic ketoacidosis Significantly high anion gap of 40 with relatively low sugars and ketones in the blood Will give dextrose containing IV fluids Monitor BMP later in the evening Chest discomfort ECG shows changes nonspecific for acute OK nevertheless there is progressive loss of R wave progression and inferior leads Troponin is mildly elevated at 34 with 22 being the cutoff for positivity Will serially follow troponins I doubt if this is acute coronary syndrome as she does not have any chest pain at present time Chest pain could also be from esophagitis that the patient has Acute kidney injury Probably on the basis of hypovolemia and dehydration IV fluids will be given Creatinine will be followed Urine will be checked Ultrasound of the kidneys will be done if creatinine is not improving Acute hypokalemia Acute hypophosphatemia Both will be replaced as per potassium and phosphorus replacement protocols With relatively lower phosphorus giving dextrose is going to make hypophosphatemia even worse therefore will check again in the evening and follow-up Hyponatremia Probably on the basis of dehydration/hypovolemia With IV fluids will follow sodium closely Probable esophagitis with history of GERD As seen in the CT scan Patient will be given Protonix twice daily Liver mass Alpha-fetoprotein's will be checked This needs to be followed none emergently at this time Alcohol abuse Monitor closely for alcohol withdrawal Patient needs to quit drinking Essential hypertension Amlodipine 10 mg daily as well as metoprolol succinate 25 mg daily will be continued Hypercholesteremia Atorvastatin 40 mg daily will be continued Diet: NPO with Acute Pancreatitis DVT Prophylaxis: Enoxaparin (Lovenox) SQ Tillman Catheter: Not present Central Lines: None Cardiac Monitoring: None Code Status: Full code Clinically Significant Risk Factors Present on Admission # Anion Gap Metabolic Acidosis: AG = 40 mmol/L (Ref range: 7 - 15 mmol/L) on admission, will monitorand treat as appropriate # Thrombocytopenia: Plts = 115 10e3/uL (Ref range: 150 - 450 10e3/uL) on admission, will monitor forbleeding # Obesity: Estimated body mass index is 30.41 kg/m?? as calculated from the following: Height as of this encounter: 1.727 m (5' 8). Weight as of this encounter: 90.7 kg (200 lb). Disposition Plan At least 3 to 5 days of hospitalization The patient's care was discussed with the Patient. Rodger Mantilla MD Hospitalist Service [facility] Securely message with the [employer] Console (learn more here) Text page via [employer] Paging/Directory Chief Complaint Chest and abdominal pain History is obtained from the patient, medical records and my discussion with emergency department physician I do not know if I could rely 100% of the patient's history. History of Present Illness Juan Pablo Brown is a 60 year old gentleman with hypertension, hypercholesteremia, alcohol withdrawal who usually lives in his parents house but lately has lived in a hotel [address]. Patient states that he usually drinks between 5 and 6 drinks of noreen or whiskey every day. He was unable to do so with his last drink being on 12/01/2021. He says that he has had lower chest and upperabdominal discomfort. He describes it as a 6/10 pain. This is associated with significant nausea and vomiting. He says that he is unable to keep even liquids down. He did not have urine output for previous 2 days according to him but did pass urine after getting IV fluids in the emergency department. He states that the color of vomitus is brown. He also complains of black-colored stools. He also has s hortness of breath on exertion. He says that his chest pain began on the day of admission. Unfortunately as per triage report he had a drink last night. He subsequently sought help on the day of admission for his chest pain nausea and vomiting. Was found to have WBC 8.5 hemoglobin 12.4 platelet count 115,000. Sodium was 133 potassium 3 chloride 82 bicarb 19 BUN 17.7 creatinine 1.23 phosphorus 1.8 magnesium 1.7 anion gap was high at 40 total bilirubin 1.3 glucose was 79 ketones were high at 7.9 lactic acid was 2.5 Review of Systems Denies any headache at this time, blurring of vision or double vision, neck pain jaw pain or shoulder pain cough or increased sputum production, he has nausea or vomiting, abdominal pain, no diarrhea or constipation. Denies any urinary symptoms of burning or increased frequency. Denies any weakness ofupper or lower extremities or any seizure activity. Fever or chills. Bleeding from anywhere else. Norashes or cellulitis. Past Medical History I have reviewed this patient's medical history and updated it with pertinent information if needed. Past Medical History: Diagnosis Date ??? Anemia, unspecified ??? Gout left first MTP ??? HTN (hypertension) 08/12/2021 ??? Other and unspecified hyperlipidemia ??? Unspecified essential hypertension Past Surgical History I have reviewed this patient's surgical history and updated it with pertinent information if needed. Past Surgical History: Procedure Laterality Date ??? NO HISTORY OF SURGERY Social History Previously lived in parents house but lately living in a motel. Patient denies smoking says he drinks between 5 and 6 drinks of hard liquor noreen or whiskey every day. Denies any drug use Family History I have reviewed this patient's family history and updated it with pertinent information if needed. Family History Problem Relation Age of Onset ??? Diabetes Father ??? Hypertension Father ??? Family History Negative Other Prior to Admission Medications Prior to Admission Medications Prescriptions Last Dose Informant Patient Reported? Taking? Epymmvcoo-Wjstzvfihpn-Ype D (OSTEO BI-FLEX ONE PER DAY PO) Yes No MAGNESIUM CR OR Yes No Sig: None Entered MULTI-VITAMIN OR TABS Yes No Si tablet daily VITAMIN E PO Yes No Sig: Take by mouth daily amLODIPine (NORVASC) 10 MG tablet No No Sig: Take 1 tablet (10 mg) by mouth daily aspirin 81 MG tablet Yes No Sig: Take 81 mg by mouth daily atorvastatin (LIPITOR) 40 MG tablet No No Sig: Take 1 tablet (40 mg) by mouth daily Appointment required for further refills metoprolol succinate ER (TOPROL-XL) 25 MG 24 hr tablet No No Sig: Take 1 tablet (25 mg) by mouth daily omeprazole (PRILOSEC) 40 MG capsule Yes No Sig: Take 40 mg by mouth daily Facility-Administered Medications: None Allergies Allergies Allergen Reactions ??? Lisinopril Kidney dysfunction and hyperkalemia Physical Exam Vital Signs: Temp: 97.8 ??F (36.6 ??C) Temp src: Temporal BP: (!) 118/90 Pulse: 108 Resp: 22 SpO2: 97 % O2 Device: None (Room air) Weight: 200 lbs 0 oz GENERAL: Patient does not look in any acute distress HEENT: EOM+, Conjunctiva is clear NECK: No Jugular Venous distention HEART: S1 S2 tachycardia is present, LUNGS: Respirations are not laboured, Lungs are clear to auscultation Crepitations or Wheezing ABDOMEN: Full, there is no tenderness , Bowel Sounds are Positive LOWER LIMBS: no Pedal Edema Bilaterally MANUAL PLATE FILLER: Alert, Oriented x 3, Moving all the Four Limbs I did not elicit any asterixis or tremors Data Data reviewed today: I reviewed all medications, new labs and imaging results over the last 24 hours. I personally reviewed the EKG tracing showing Sinus rhythm with multiple PVCs poor progression of Rwaves in lead III aVF with T wave version seen in 1 and V6. Most Recent 3 CBC's:Recent Labs Lab Test 12/04/21 0814 WBC 8.5 HGB 12.4* MCV 92 PLT 115* Most Recent 3 BMP's:Recent Labs Lab Test 12/04/21 0814 08/13/21 0757 02/21/20 1452 NA 133* 136 134 POTASSIUM 3.0* 4.1 3.4 CHLORIDE 82* 104 100 CO2 11* 26 26 BUN 17.7 12 13 CR 1.23* 0.81 1.04 ANIONGAP 40* 6 8 BRIAN 8.8 9.2 8.8 GLC 79 123* 95 Most Recent 2 LFT's:Recent Labs Lab Test 12/04/21 0814 08/13/21 0757 AST 75* -- ALT 50 53 ALKPHOS 83 -- BILITOTAL 1.3* -- Most Recent 3 INR's:No lab results found. Most Recent 3 Troponin's:No lab results found. Most Recent Urinalysis:No lab results found. Recent Results (from the past 24 hour(s)) CT Abdomen Pelvis w Contrast Narrative EXAM: CT ABDOMEN PELVIS W CONTRAST LOCATION: [facility] DATE/TIME: 12/04/2021 9:52 AM INDICATION: abdominal pain vomiting, eval for obstruction COMPARISON: Renal ultrasound 02/14/2020 TECHNIQUE: CT scan of the abdomen and pelvis was performed following injection of IV contrast. Multiplanar reformats were obtained. Dose reduction techniques were used. CONTRAST: 90mL Isovue 370 FINDINGS: LOWER CHEST: The visualized lung bases are clear. Circumferential wall thickening of the visualized distal esophagus. HEPATOBILIARY: Marked diffuse hepatic steatosis. A 1.6 x 0.7 cm hypodense lesion [...] Normal. ADRENAL GLANDS: Normal. KIDNEYS/BLADDER: Multiple bilateral renal cysts requiring no specific follow-up. No calculi or hydronephrosis in either kidney. Partly decompressed urinary bladder. BOWEL: No small bowel or colonic obstruction or inflammatory changes. Normal appendix. LYMPH NODES: No lymphadenopathy. VASCULATURE: No abdominal aortic aneurysm. PELVIC ORGANS: No pelvic masses. No free fluid or fluid collections. No extraluminal air. MUSCULOSKELETAL: Mild degenerative changes in the spine. Old healed left-sided rib fractures. No suspicious lesions in the bones. Impression IMPRESSION: 1. Circumferential wall thickening of the visualized distal esophagus. Correlate clinically for esophagitis. 2. Mild stranding around the pancreatic head, exaggerated by motion artifact. Findings could represent mild acute pancreatitis. 3. Diffuse hepatic steatosis. Indeterminate 1.6 x 0.7 cm hypodense lesion in the right hepatic lobe.Nonemergent liver MRI should be considered for further characterization. 4. Hyperdense material in the gallbladder lumen, likely sludge. No calcified gallstones. 5. Multiple bilateral renal cysts, requiring no specific follow-up. documented in this encounter Consult Notes Miriam Vital - 12/05/2021 9:31 AM CDTAssociated Order(s): CARE MANAGEMENT / SOCIAL WORK IP CONSULT; CARE MANAGEMENT / SOCIAL WORK IP CONSULT Care Management Initial Consult General Information Assessment completed with: Patient, Type of CM/SW Visit: Initial Assessment Primary Care Provider verified and updated as needed: Readmission within the last 30 days: Reason for Consult: discharge planning, insurance concerns, substance use concerns Advance Care Planning: Communication Assessment Patient's communication style: spoken language (Telugu or Bilingual) Hearing Difficulty or Deaf: no Wear Glasses or Blind: no Cognitive Cognitive/Neuro/Behavioral: WDL Living Environment: People in home: alone Current living Arrangements: hotel/motel Able to return to prior arrangements: yes Family/Social Support: Care provided by: self Provides care for: no one Parent(s) Description of Support System: Involved, Supportive Current Resources: Patient receiving home care services: No Community Resources: None Equipment currently used at home: none Supplies currently used at home: Employment/Financial: Employment Status: unemployed Financial Concerns: no Lifestyle & Psychosocial Needs: Social Determinants of Health Tobacco Use: Low Risk ??? Smoking Tobacco Use: Never Smoker ??? Smokeless Tobacco Use: Never Used Alcohol Use: Not on file Financial Resource Strain: Not on file Food Insecurity: Not on file Transportation Needs: Not on file Physical Activity: Not on file Stress: Not on file Social Connections: Not on file Intimate Partner Violence: Not on file Depression: Not on file Housing Stability: Not on file Functional Status: Prior to admission patient needed assistance: Dependent ADLs:: Independent Dependent IADLs:: Independent Mental Health Status: Mental Health Status: No Current Concerns Chemical Dependency Status: Chemical Dependency Status: Current Concern Values/Beliefs: Spiritual, Cultural Beliefs, Restoration Practices, Values that affect care: Additional Information: Met with pt to introduce self/role. Pt reports he has BCBS through his previous employer [employer]? He did not have any insurance cards with him for me to verify. But then he also mentioned he would need to contact [facility] to pay for this hospital stay, even though he is reporting he does not receive any services through the [facility]. I LVM for financial counselors to look into He reports he works on and off and reports in two days he can apply for SS benefits. I was informed that he had $2000 in farias when he arrived to the hospital and when I asked where he gets his money ifhe isn't working he then says he works, but also can not tell me where he works or the last time he was employed. He reports he has been staying at a [employer] but plans on discharge to the farm which is his parents home. He reports he drinks 5 duong drinks/daily, NIKO 3 days ago. He reports 1 previous OP tx, which he didnot complete. He is not interested in [facility] services. He denies any needs and reports that he plans on taking a cab at discharge to his car. No needs identified at this time. Please page SW if other needs/cocnerns arise. Miriam STEVENSON, [facility] Inpatient Care Coordination [facility] [phone] documented in this encounter ED Notes Saira Tapia RN - 12/04/2021 10:[address] [facility] ED Nurse Handoff Report Juan Pablo Brown is a 60 year old male ED Chief complaint: Chest Pain . ED Diagnosis: Final diagnoses: Alcoholic ketoacidosis Allergies: Allergies Allergen Reactions ??? Lisinopril Kidney dysfunction and hyperkalemia Code Status: Full Code Activity level - Baseline/Home: Independent. Activity Level - Current: Stand by Assist. Lift room needed: No. Bariatric: No Rat Culturist Needed: No Isolation: No. Infection: Not Applicable. Vital Signs: Vitals: 12/04/21 0900 12/04/21 0915 12/04/21 1015 12/04/21 1030 BP: Pulse: 105 108 108 106 Resp: 23 Temp: TempSrc: SpO2: Weight: Height: Cardiac Rhythm: , Pain level: Patient confused: No. Patient Falls Risk: Yes. Elimination Status: Has voided Patient Report - Initial Complaint: Juan Pablo Brown is a 60 year old male with history of hypertension, hyperlipidemia, and alcohol withdrawl who presents via EMS with vomiting and chest pain. For thepast 2 days, he has had vomiting and unable to keep water down. He developed a new chest pain this morning, which prompted him to be evaluated here. He drank last night, approximately 6 drinks which isat his baseline. No past abdominal surgeries. He feels bloated and distended, and he has not been urinating or having a bowel movement. He last had a bowel movement last night. He has a history of hypertension and high cholesterol. No history of diabetes. He denies shortness of breath. He stays at a [employer]. EMS gave him Zofran. ?? Review of Systems Respiratory: Negative for shortness of breath. Cardiovascular: Positive for chest pain. Gastrointestinal: Positive for abdominal distention and vomiting. All other systems reviewed and are negative. ?? . Focused Assessment: see above Tests Performed: labs, CT. Abnormal Results: Labs Ordered and Resulted from Time of ED Arrival to Time of ED Departure COMPREHENSIVE METABOLIC PANEL - Abnormal Result Value Sodium 133 (*) Potassium 3.0 (*) Creatinine 1.23 (*) Urea Nitrogen 17.7 Chloride 82 (*) Carbon Dioxide (CO2) 11 (*) Anion Gap 40 (*) Glucose 79 Calcium 8.8 Protein Total 7.9 Albumin 4.6 Bilirubin Total 1.3 (*) Alkaline Phosphatase 83 AST 75 (*) ALT 50 GFR Estimate 68 LIPASE - Abnormal Lipase 411 (*) LACTIC ACID WHOLE BLOOD - Abnormal Lactic Acid 2.5 (*) TROPONIN T, HIGH SENSITIVITY - Abnormal Troponin T, High Sensitivity 34 (*) BLOOD GAS VENOUS - Abnormal pH Venous 7.38 pCO2 Venous 24 (*) pO2 Venous 38 Bicarbonate Venous 14 (*) Base Excess/Deficit (+/-) -9.5 (*) FIO2 0 KETONE BETA-HYDROXYBUTYRATE QUANTITATIVE, RAPID - Abnormal Ketone (Beta-Hydroxybutyrate) Quantitative 7.9 (*) ETHYL ALCOHOL LEVEL - Abnormal Alcohol ethyl 0.03 (*) CBC WITH PLATELETS AND DIFFERENTIAL - Abnormal WBC Count 8.5 RBC Count 4.08 (*) Hemoglobin 12.4 (*) Hematocrit 37.4 (*) MCV 92 MCH 30.4 MCHC 33.2 RDW 13.2 Platelet Count 115 (*) % Neutrophils 78 % Lymphocytes 11 % Monocytes 10 % Eosinophils 0 % Basophils 0 % Immature Granulocytes 1 NRBCs per 100 WBC 0 Absolute Neutrophils 6.6 Absolute Lymphocytes 0.9 Absolute Monocytes 0.9 Absolute Eosinophils 0.0 Absolute Basophils 0.0 Absolute Immature Granulocytes 0.1 Absolute NRBCs 0.0 PHOSPHORUS - Abnormal Phosphorus 1.8 (*) MAGNESIUM - Normal Magnesium 1.7 COVID-19 VIRUS (CORONAVIRUS) BY PCR CT Abdomen Pelvis w Contrast Final Result IMPRESSION: 1. Circumferential wall thickening of the visualized distal esophagus. Correlate clinically for esophagitis. 2. Mild stranding around the pancreatic head, exaggerated by motion artifact. Findings could represent mild acute pancreatitis. 3. Diffuse hepatic steatosis. Indeterminate 1.6 x 0.7 cm hypodense lesion in the right hepatic lobe.Nonemergent liver MRI should be considered for further characterization. 4. Hyperdense material in the gallbladder lumen, likely sludge. No calcified gallstones. 5. Multiple bilateral renal cysts, requiring no specific follow-up. . Treatments provided: see MAR Family Comments: n/a OBS brochure/video discussed/provided to patient: N/A ED Medications: Medications ondansetron (ZOFRAN) injection 4 mg (4 mg Intravenous Given 12/04/21826) ketorolac (TORADOL) injection 15 mg (15 mg Intravenous Given 12/04/21826) 0.9% sodium chloride BOLUS (0 mLs Intravenous Stopped 12/04/21900) LORazepam (ATIVAN) injection 0.5 mg (0.5 mg Intravenous Given 12/04/21900) dextrose 5% and 0.45% NaCl 1,000 mL with Infuvite Adult 10 mL, thiamine 100 mg, folic acid 1 mg, potassium chloride 20 mEq, magnesium sulfate 2 g infusion ( Intravenous New Bag 12/04/21 1010) iopamidol (ISOVUE-370) solution 90 mL (90 mLs Intravenous Given 12/04/21952) sodium chloride (PF) 0.9% PF flush 65 mL (65 mLs Intravenous Given 12/04/21 0956) ondansetron (ZOFRAN) injection 4 mg (4 mg Intravenous Given 12/04/21 1010) Drips infusing: Yes For the majority of the shift, the patient's behavior Green. Interventions performed were n/a. Sepsis treatment initiated: No Patient tested for COVID 19 prior to admission: YES ED Nurse Name/Phone Number: Wilmer Mei RN, 10:36 AM RECEIVING UNIT ED HANDOFF REVIEW Above ED Nurse Handoff Report was reviewed: Yes Reviewed by: Saira Tapia, OZZIE on December 04, 2021 at 11:38 AM Vane Dudley RN - 12/04/2021 8:28 AM CDT Ketone 7.9. MD updated Vane Dudley RN - 12/04/2021 7:55 AM CDT Pt here with non-radiating CP since this morning. No SOB. Pt drinking last night, approx 6 drinks which is his baseline. Emesis x2 days. Stay at [facility]. EKG SR. 4 mg ODT zofran by EMS. No BG checked. ABC intact. Vaishali Bejarano RN - 12/04/2021 7:52 AM CDT Bed: ED33 Expected date: Expected time: Means of arrival: Comments: [id number] CP Jason Orozco MD - 12/04/2021 7:52 AM CDT History Chief Complaint: Chest Pain HPI Juan Pablo Brown is a 60 year old male with history of hypertension, hyperlipidemia, and alcohol withdrawl who presents via EMS with vomiting and chest pain. For the past 2 days, he has had vomiting and unable to keep water down. He developed a new chest pain this morning, which prompted him to be eval uated here. He admitted to drinking last night, approximately 6 drinks which is at his baseline. No past abdominal surgeries. He feels bloated and distended, and he has not been urinating or having a bowel movement. He last had a bowel movement last night. He has a history of hypertension and high cholesterol. No history of diabetes. He denies shortness of breath. He stays at a [facility]. EMS gave him Jackie. Review of Systems Respiratory: Negative for shortness of breath. Cardiovascular: Positive for chest pain. Gastrointestinal: Positive for abdominal distention and vomiting. All other systems reviewed and are negative. Allergies: Lisinopril Medications: amLODIPine (NORVASC) 10 MG tablet aspirin 81 MG tablet atorvastatin (LIPITOR) 40 MG tablet Kywferjkv-Aoofcuwtgan-Qhg D (OSTEO BI-FLEX ONE PER DAY PO) MAGNESIUM CR OR metoprolol succinate ER (TOPROL-XL) 25 MG 24 hr tablet omeprazole (PRILOSEC) 40 MG capsule Past Medical History: Hyperlipidemia Anemia Alcohol withdrawal delirium Hypertension Hypomagnesemia Hypophosphatemia Hypokalemia Past Surgical History: Denies Family History: Father: diabetes, hypertension Social History: Presents alone via EMS. PCP: No Ref-Primary, Physician Physical Exam Patient Vitals for the past 24 hrs: BP Temp Temp src Pulse Resp SpO2 Height Weight 12/04/21 1115 (!) 143/79 -- -- 112 24 98 % -- -- 12/04/21 1100 -- -- -- 109 19 -- -- -- 12/04/21 1045 -- -- -- 112 25 -- -- -- 12/04/21 1030 -- -- -- 106 23 -- -- -- 12/04/21 1015 -- -- -- 108 24 -- -- -- 12/04/21 0915 -- -- -- 108 22 -- -- -- 12/04/21 0900 -- -- -- 105 23 -- -- -- 12/04/21 0845 (!) 118/90 -- -- 108 19 -- -- -- 12/04/21 0830 (!) 144/92 -- -- 120 21 -- -- -- 12/04/21 0815 (!) 153/96 -- -- 116 23 -- -- -- 12/04/21 0800 (!) 147/100 -- -- 119 -- 97 % -- -- 12/04/21 0757 (!) 147/100 97.8 ??F (36.6 ??C) Temporal 120 22 97 % -- -- 12/04/21 0756 -- -- -- -- -- -- 1.727 m (5' 8) 90.7 kg (200 lb) Physical Exam Vitals reviewed. HENT: Head: Normocephalic. Eyes: Pupils: Pupils are equal, round, and reactive to light. Cardiovascular: Rate and Rhythm: Tachycardia present. Rhythm irregular. Heart sounds: Normal heart sounds. Pulmonary: Effort: Pulmonary effort is normal. Breath sounds: Normal breath sounds. Abdominal: General: Bowel sounds are normal. Palpations: Abdomen is soft. Musculoskeletal: General: Normal range of motion. Cervical back: Normal range of motion. Skin: General: Skin is warm. Capillary Refill: Capillary refill takes 2 to 3 seconds. Neurological: General: No focal deficit present. Mental Status: He is alert and oriented to person, place, and time. Psychiatric: Mood and Affect: Mood normal. Emergency Department Course ECG ECG results from 12/04/21 EKG 12-lead, tracing only Value Systolic Blood Pressure Diastolic Blood Pressure Ventricular Rate 119 Atrial Rate 117 [place] Interval 122 QRS Duration 94 QT 328 QTc 461 P [place] 35 R AXIS -19 T [place] 77 Interpretation ECG Sinus tachycardia with frequent PVCs Left ventricular hypertrophy with repolarization abnormality 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) Abnormal ECG Imaging: CT Abdomen Pelvis w Contrast Final Result IMPRESSION: 1. Circumferential wall thickening of the visualized distal esophagus. Correlate clinically for esophagitis. 2. Mild stranding around the pancreatic head, exaggerated by motion artifact. Findings could represent mild acute pancreatitis. 3. Diffuse hepatic steatosis. Indeterminate 1.6 x 0.7 cm hypodense lesion in the right hepatic lobe.Nonemergent liver MRI should be considered for further characterization. 4. Hyperdense material in the gallbladder lumen, likely sludge. No calcified gallstones. 5. Multiple bilateral renal cysts, requiring no specific follow-up. Report per radiology Laboratory: Labs Ordered and Resulted from Time of ED Arrival to Time of ED Departure COMPREHENSIVE METABOLIC PANEL - Abnormal Result Value Sodium 133 (*) Potassium 3.0 (*) Creatinine 1.23 (*) Urea Nitrogen 17.7 Chloride 82 (*) Carbon Dioxide (CO2) 11 (*) Anion Gap 40 (*) Glucose 79 Calcium 8.8 Protein Total 7.9 Albumin 4.6 Bilirubin Total 1.3 (*) Alkaline Phosphatase 83 AST 75 (*) ALT 50 GFR Estimate 68 LIPASE - Abnormal Lipase 411 (*) LACTIC ACID WHOLE BLOOD - Abnormal Lactic Acid 2.5 (*) TROPONIN T, HIGH SENSITIVITY - Abnormal Troponin T, High Sensitivity 34 (*) BLOOD GAS VENOUS - Abnormal pH Venous 7.38 pCO2 Venous 24 (*) pO2 Venous 38 Bicarbonate Venous 14 (*) Base Excess/Deficit (+/-) -9.5 (*) FIO2 0 KETONE BETA-HYDROXYBUTYRATE QUANTITATIVE, RAPID - Abnormal Ketone (Beta-Hydroxybutyrate) Quantitative 7.9 (*) ETHYL ALCOHOL LEVEL - Abnormal Alcohol ethyl 0.03 (*) CBC WITH PLATELETS AND DIFFERENTIAL - Abnormal WBC Count 8.5 RBC Count 4.08 (*) Hemoglobin 12.4 (*) Hematocrit 37.4 (*) MCV 92 MCH 30.4 MCHC 33.2 RDW 13.2 Platelet Count 115 (*) % Neutrophils 78 % Lymphocytes 11 % Monocytes 10 % Eosinophils 0 % Basophils 0 % Immature Granulocytes 1 NRBCs per 100 WBC 0 Absolute Neutrophils 6.6 Absolute Lymphocytes 0.9 Absolute Monocytes 0.9 Absolute Eosinophils 0.0 Absolute Basophils 0.0 Absolute Immature Granulocytes 0.1 Absolute NRBCs 0.0 PHOSPHORUS - Abnormal Phosphorus 1.8 (*) MAGNESIUM - Normal Magnesium 1.7 COVID-19 VIRUS (CORONAVIRUS) BY PCR - Normal SARS CoV2 PCR Negative Emergency Department Course: Reviewed: I reviewed nursing notes, vitals, past medical history and Care Everywhere Assessments: 803 I obtained history and examined the patient as noted above. I rechecked the patient and explained findings. Consults: [address] Rodger Mantilla of the hospitalist service regarding patient's presentation, findings, and plan of care. Interventions: 0815 Bolus 1L IV 08 Zofran 4 mg IV 0827 Toradol 15 mg IV 0901 Ativan 0.5 mg IV 1010 Zofran 4 mg IV 1010 Banana bag IV Disposition: The patient was admitted to the hospital under the care of Dr. Rodger Mantilla. Impression & Plan Medical Decision Making: She presents with abdominal pain and vomiting. Clinical exam shows a tachycardic 60-year-old male seems somewhat tremulous. Lab test suggest moderately severe alcoholic ketoacidosis with bicarb of only10. No significant anion gap and ketonemia. Suspect starvation ketosis and alcoholism. Recommend ongoing IV fluids and aggressive hydration and symptom management in the hospital. Admitted as an inpatient due to likely management of alcohol withdrawal required. Care was discussed with the hospitalist and was admitted in stable condition. Diagnosis: ICD-10-CM 1. Alcoholic ketoacidosis E87.2 Scribe Disclosure: Ai Lund, am serving as a scribe at 8:04 AM on 12/04/2021 to document services personally performed by Jason Orozco MD based on my observations and the provider's statements to me. Jason Orozco MD 12/05/211903 documented in this encounter Miscellaneous Notes Plan of Care - Mable Valdez RN - 2021 10:36 AM CDT Goal Outcome Evaluation: Assumed care of pt from 7820-4833. AVSS. A&Ox4. Apical pulse regular. Lungs CTA. Bowel sounds active in all quadrants. Tolerating low fat diet. Voiding spontaneously with adequate output. PIV x2 removed. AVS signed and all questions/concerns addressed. Medications given to patient. Pt discharge home with all belongings. Provider Notification - Mable Valdez RN - 2021 9:19 AM CDT Pt expected to discharge home today. Dr. Ceballos notified and okay to hold off on replacementsof electrolytes. Plan of Care - Sharifa Sunshine RN - 2021 6:56 AM CDT Goal Outcome Evaluation: To Do: End of Shift Summary For vital signs and complete assessments, please see documentation flowsheets. Pertinent assessments: Pt A/Ox4. VSS. Denies SOB and Nausea. Percocet and Tylenol for left foot pain. Lt foot wrapped with cece bandage, refused ice and elevation. Up ind. Major Shift Events: uneventful Treatment Plan: Electrolyte replacement, symptom management advance diet as tolerated. Bedside Nurse: Sharifa Sunshine RN Plan of Care - Mable Valdez RN - 12/07/2021 6:36 PM CDT Goal Outcome Evaluation: Pertinent assessments: Assumed care of pt from 4990-7920. AVSS. A&Ox4. Apical pulse regular. Lungs CTA. Bowel sounds active in all quadrants. Tolerating low fat diet. Voiding spontaneously with adequate output. MIVF running at 75cc/hr. Pain controlled with Percocet and Tylenol. PT consult completed, pt to purchase a cane on own. Foot wrapped with cece bandage. Major Shift Events: tolerated diet, foot wrapped Treatment Plan: discharge to home 12/08, electrolyte replacement, pain management Plan of Care - Viktoriya Staples PT - 12/07/2021 2:13 PM CDT Physical Therapy Discharge Summary Reason for therapy discharge: All goals and outcomes met, no further needs identified. Progress towards therapy goal(s). See goals on Care Plan in [facility] electronic health record for goal details. Goals met Therapy recommendation(s): No further therapy is recommended. Continue home exercise program. Plan of Care - Sharifa Sunshine RN - 12/07/2021 6:53 AM CDT Goal Outcome Evaluation: To Do: End of Shift Summary For vital signs and complete assessments, please see documentation flowsheets. Pertinent assessments: Pt A/Ox4, forgetful at times. VSS. Denies nausea and SOB. Percocet and Tylenol given for LLE paiin. No stool this shift. Voiding well. Up SBA with walker Major Shift Events: Mg+ 1.1- replaced, recheck in am Treatment Plan: Electrolyte replacement, symptom management, IVF Bedside Nurse: Sharifa Sunshine RN Plan of Care - Mable Valdez RN - 12/06/2021 6:50 PM CDT Goal Outcome Evaluation: Pertinent assessments: Assumed care of pt from 4524-7760. VSS. A&O but forgettful. Apical pulse regular. Lungs CTA. Bowel sounds active in all quadrants. Multiple loose stools.Tolerating clear liquid diet. Voiding spontaneously with adequate output. Multiple electrolyte replacements running/given today. Pain controlled with Percocet for left ankle pain. Major Shift Events: ankle x-ray completed and unremarkable Treatment Plan: ADAT, pain management, electrolyte replacement, PT consult order placed Provider Notification - Mable Valdez RN - 12/06/2021 11:20 AM CDT notified that pt has had 6 loose stool in 24 hours. Pt has not had any laxatives since admission on 12/04 nor has he had antibiotics that could contribute to loose stools. Pt placed on enteric precautions and MD notified. 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 Plan to follow peripherally for diet advancement. Kenzie Real. CORRINE Dover, LD Clinical Dietitian 3rd floor/ICU: [phone] All other floors: [phone] Weekend/holiday: [phone] Office: [phone] Plan of Care - Kassandra Gillette RN - 12/06/2021 6:48 AM CDT End of Shift Summary For vital signs and complete assessments, please see documentation flowsheets. Pertinent assessments: A&Ox4, forgetful at times. VSS on room air, afebrile. No nausea this shift, no PO intake except with meds. C/o L ankle pain, slight edema and bruise noted. MD notified and Beng[place] applied/tylenol given with relief. No s/s of withdrawal. Up SBA with walker. Major Shift Events: Potassium (3.2) and phosphorus (1.6) replaced via IV with little improvement. Potassium recheck at 0715, phos recheck at 1115. Treatment Plan: IV fluids. Monitor for s/s of withdrawal. Electrolyte replacement Bedside Nurse: Kassandra Gillette RN Plan of Care - Saira Tapia RN - 12/05/2021 6:44 PM CDT Goal Outcome Evaluation: End of Shift Summary For vital signs and complete assessments, please see documentation flowsheets. Pertinent assessments: A&Ox4. Unable to tolerate PO intake. Intermittent nausea, PRN zofran given w/ relief. Denies pain. SBA w/ RW. PIV fluids infusing per order. No s/s of withdrawal noted. Major Shift Events: Potassium (2.9) and phosphorus (1.7) replaced via IV with little improvement. Potassium recheck at 2130, phos recheck at 0030. Treatment Plan: IV fluids. Monitor for s/s of withdrawal. Utilization Review - Noa Chaparro MD - 12/05/2021 12:35 PM CDT Admission Status; Secondary Review Determination Under the authority of the Utilization Management Committee, the utilization review process indicated a secondary review on the above patient. The review outcome is based on review of the medical records, discussions with staff, and applying clinical experience noted on the date of the review. (x) Inpatient Status Appropriate - This patient's medical care is consistent with medical managementfor inpatient care and reasonable inpatient medical practice. 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 Patient requires inpatient admission versus short stay observation or outpatient treatment for the following reasons: Complex patient with acute pancreatitis, alcoholic ketoacidosis, at risk of alcoholwithdrawal, significant metabolic abnormality and high anion gap, acute kidney injury hypokalemia hypophosphatemia on admission The expected length of stay at the time of admission was more than 2 nights because of the severity of illness, intensity of service provided, and risk for adverse outcome. Inpatient admission is appropriate. This document was produced using voice recognition software The information on this document is developed by the utilization review team in order for the business office to ensure compliance. This only denotes the appropriateness of proper admission status and does not reflect the quality of care rendered. The definitions of Inpatient Status and Observation Status used in making the determination above are those provided in the CMS Coverage Manual, Chapter 1 and Chapter 6, section 70.4. Sincerely, NOA CHAPARRO MD System Pipe Out WorkerDisassembler Product [facility]. Plan of Care - Kassandra Gillette RN - 12/05/2021 7:02 AM CDT End of Shift Summary For vital signs and complete assessments, please see documentation flowsheets. Pertinent assessments: A&Ox4, forgetful at times. Unable to tolerate PO intake, nauseous intermittently but no emesis this shift. Denies pain. Up SBA with walker. Major Shift Events: Potassium (2.9) and phosphorus (1.6) replaced x2 via IV with little improvement.Recheck K @ 1100, recheck phosph @ 1300. Treatment Plan: IV fluids. Monitor for s/s of withdrawal. Bedside Nurse: Kassandra Gillette RN Plan of Care - Saira Tapia RN - 12/04/2021 5:45 PM CDT Goal Outcome Evaluation: End of Shift Summary For vital signs and complete assessments, please see documentation flowsheets. Pertinent assessments: A&Ox4. Unable to tolerate PO intake. One episode of nausea, small emesis. Denies pain. SBA w/ RW. D5 1/2 NS with infuvite completed approx 1745. K, Mg and Phos lab draws scheduled for 1900. Major Shift Events: Uneventful. Treatment Plan: IV fluids. Monitor for s/s of withdrawal. Pharmacy-Admission Medication History - Debbie Alicea [facility] - 12/04/2021 5:27 PM CDT Admission medication history interview status for this patient is complete. See [facility] admission navigator for allergy information, prior to admission medications and immunization status. Medication history interview done, indicate source(s): Patient Medication history resources (including written lists, pill bottles, clinic record):None Pharmacy: [facility] pharmacy Changes made to [employer] [facility] medication list: Added: none Changed: omeprazole Reported as Not Taking: none Removed: magnesium Actions taken by pharmacist (provider contacted, etc):None Additional medication history information:None Medication reconciliation/reorder completed by provider prior to medication history? Y (Y/N) Prior to Admission medications Medication Sig Last Dose Taking? Auth Provider Nursing Home End Date amLODIPine (NORVASC) 10 MG tablet Take 1 tablet (10 mg) by mouth daily Past Week at Unknown time YesErnst, Juan Alegre MD Yes aspirin 81 MG tablet Take 81 mg by mouth daily Past Week at Unknown time Yes Reported, Patient atorvastatin (LIPITOR) 40 MG tablet Take 1 tablet (40 mg) by mouth daily Appointment required for further refills Past Week at Unknown time Yes Denise Connell PA-C Yes Nxnuzxtxb-Wsvndtcukpz-Ogz D (OSTEO BI-FLEX ONE PER DAY PO) Take 1 tablet by mouth daily Past Week atUnknown time Yes Reported, Patient metoprolol succinate ER (TOPROL-XL) 25 MG 24 hr tablet Take 1 tablet (25 mg) by mouth daily Past Week at Unknown time Yes Denise Connell PA-C Yes MULTI-VITAMIN OR TABS Take 1 tablet by mouth daily Past Week at Unknown time Yes Reported, Patient omeprazole (PRILOSEC) [address] capsule Take 20 mg by mouth daily Past Week at Unknown time Yes Reported, Patient VITAMIN E PO Take 1 tablet by mouth daily Past Week at Unknown time Yes Reported, Patient documented in this encounter Plan of Treatment Not on filedocumented as of this encounter Procedures Procedure Name Priority Date/Time Associated Comments [...] i n the results section. PHOSPHORUS Routine 12/07/2021 5:37 AM Results f or this CDT procedure are i n the results section. MAGNESIUM Timed 12/07/2021 5:37 AM Results f or this CDT procedure are i n the results section. COMPREHENSIVE Routine 12/07/2021 5:37 AM Results for this METABOLIC PANEL CDT procedure ar e in the results section. CBC WITH PLATELETS Routine [...] are i n the results section. PHOSPHORUS Add-On 12/06/2021 6:26 AM Results f or this CDT procedure are i n the results section. COMPREHENSIVE Add-On 12/06/2021 6:26 AM Results for this METABOLIC PANEL CDT procedure ar e in the results section. PLATELET COUNT Routine 12/06/2021 [...] procedure ar e in the results section. CBC WITH PLATELETS Routine 12/05/2021 6:51 AM Res ults for this CDT procedure are i n the results section. PHOSPHORUS Timed 12/05/2021 4:25 [...] n the results section. TROPONIN T, HIGH STAT 12/04/2021 8:14 [...] in QUANTITATIVE, RAPID the resu lts section. COMPREHENSIVE STAT 12/04/2021 8:14 AM Results for this METABOLIC PANEL CDT procedure ar e in the results section. ETHYL ALCOHOL LEVEL STAT 12/04/2021 8:14 AM Re sults for this CDT procedure are i n the results section. EKG 12-LEAD, TRACING STAT 12/04/2021 8:01 AM R esults for this ONLY CDT procedure are i n the results section. documented in this encounter Results Potassium (2021 8:05 AM CDT) athologist Signature Potassium 3.8 3.4 - 5.3 2021 [facility] mmol/L 8:40 AM CDT Specimen Anatomical Collection Method / Collection Time Recei rehana Time (Source) Location / Volume Laterality Blood STRUCTURE OF LEFT Venipuncture / 2021 8:05 12/08 8:18 HAND / Unknown Unknown AM CDT AM CDT Kelvin Ceballos MD LAB - BLOOD ORDERABLES Performing Organization Address City/[facility]/ZIP [place] [phone] Care Lab [address] Lab (1st floor, no room number) (ABNORMAL) Phosphorus (2021 8:05 AM CDT) athologist Signature Phosphorus 2.0 (L) 2.5 - 4.5 2021 [facility] mg/dL 8:40 AM CDT Specimen Anatomical Collection Method / Collection Time Recei rehana Time (Source) Location / Volume Laterality Blood STRUCTURE OF LEFT Venipuncture / 2021 8:05 12/08 8:18 HAND / Unknown Unknown AM CDT AM CDT Rodger Mantilla MD LAB - BLOOD ORDERABLES Performing Organization Address City/State/ZIP [place] [address] Care Lab [address] Lab (1st floor, no room number) (ABNORMAL) Magnesium (2021 8:05 AM CDT) athologist Signature Magnesium 1.5 (L) 1.7 - [...] Address City/State/ZIP Code [place] [address] Care Lab [address] Lab (1st floor, no room number) Potassium (12/07/2021 4:03 PM CDT) athologist Signature Potassium 3.8 3.4 - 5.3 12/07/2021 [facility] mmol/L 5:33 PM CDT Comment: Specimen slightly hemolyzed, po tassium may be falsely elevated. Specimen Anatomical Collection Method / Collection Time Recei rehana Time (Source) Location / Volume Laterality Blood STRUCTURE OF LEFT Venipuncture / 12/07/2021 4:03 12/07 4:23 HAND / Unknown Unknown PM CDT PM CDT Rodger Mantilla MD LAB - BLOOD ORDERABLES Performing Organization Address City/[facility]/ZIP Code [place] [address] Care Lab [address] Lab (1st floor, no room number) Magnesium (12/07/2021 5:37 AM CDT) athologist Signature Magnesium 2.2 1.7 - 2.3 12/07/2021 [facility] mg/dL 6:07 AM CDT Specimen Anatomical Collection Method / Collection Time Recei rehana Time (Source) Location / Volume Laterality Blood STRUCTURE OF LEFT Venipuncture / 12/07/2021 5:37 12/07 5:43 UPPER LIMB / Unknown AM CDT AM CDT Unknown Rodger Mantilla MD LAB - BLOOD ORDERABLES Performing Organization Address City/State/ZIP Code [place] [phone] Care Lab [address] Lab (1st floor, no room number) (ABNORMAL) CBC with platelets (12/07/2021 5:37 AM CDT) [facility] gist Method Time Signature WBC Count 6.1 [...] Count 141 (L) 150 - 450 12/07/2021 [facility] 10e3/uL 5:48 AM CDT Specimen Anatomical Collection Method / Collection Time Recei rehana Time (Source) Location / Volume Laterality Blood STRUCTURE OF LEFT Venipuncture / 12/07/2021 5:37 12/07 5:43 UPPER LIMB / Unknown AM CDT AM CDT Unknown Rodger Mantilla MD LAB - BLOOD ORDERABLES Performing Organization Address City/State/ZIP Code [place] [phone] Care Lab [address] Lab (1st floor, no room number) (ABNORMAL) Comprehensive metabolic panel (12/07/2021 5:37 AM CDT) [facility] Method Time Signature Sodium 135 (L) 136 [...] AST 75 (H) 10 - 50 12/07/2021 LAB[facility]ATORY U/L 6:07 AM CDT ALT 41 10 - 50 12/07/2021 [facility]ORY U/L 6:07 AM CDT GFR Estimate >90 >60 12/07/2021 LAB[facility]ATORY mL/min/1.7 6:07 AM CDT 3m2 Comment: Effective April 13, 2021 eGF Rcr in adults is calculated using the 2020 CKD-EPI creatinine equation which includ es age and gender (Yuli et al., NEJM, DOI: 10.1056/OWXPcx6071663) Specimen Anatomical Collection Method / Collection Time Recei rehana Time (Source) Location / Volume Laterality Blood STRUCTURE OF LEFT Venipuncture / 12/07/2021 5:37 12/07 5:43 UPPER LIMB / Unknown AM CDT AM CDT Unknown Rodger Mantilla MD LAB - BLOOD ORDERABLES Performing Organization Address City/[facility]/ZIP [place] [address] Care Lab [address] Lab (1st floor, no room number) (ABNORMAL) Phosphorus (12/07/2021 5:37 AM CDT) P athologist Signature Phosphorus 2.1 (L) 2.5 - 4.5 12/07/2021 [facility] mg/dL 6:07 AM CDT Specimen Anatomical Collection Method / Collection Time Recei rehana Time (Source) Location / Volume Laterality Blood STRUCTURE OF LEFT Venipuncture / 12/07/2021 5:37 12/07 5:43 UPPER LIMB / Unknown AM CDT AM CDT Unknown Rodger Mantilla MD LAB - BLOOD ORDERABLES Performing Organization Address City/[facility]/ZIP [place] [address] Care Lab [address] Lab (1st floor, no room number) (ABNORMAL) Magnesium (12/06/2021 6:37 PM CDT) P athologist Signature Magnesium 1.1 (L) 1.7 - 2.3 12/06/2021 [facility] mg/dL 10:50 PM CDT Specimen Anatomical Collection Method / Collection Time Recei rehana Time (Source) Location / Volume Laterality Blood STRUCTURE OF LEFT Venipuncture / 12/06/2021 6:37 12/06 6:42 UPPER LIMB / Unknown PM CDT PM CDT Unknown Rodger Mantilla MD LAB - BLOOD ORDERABLES Performing Organization Address City/[facility]/ZIP [place] [address] Care Lab [address] Lab (1st floor, no room number) Phosphorus (12/06/2021 6:37 PM CDT) P athologist Signature Phosphorus 2.8 2.5 - 4.5 12/06/2021 LAB[facility]ORY mg/dL 7:10 PM CDT Specimen Anatomical Collection Method / Collection Time Recei rehana Time (Source) Location / Volume Laterality Blood STRUCTURE OF LEFT Venipuncture / 12/06/2021 6:37 12/06 6:42 UPPER LIMB / Unknown PM CDT PM CDT Unknown Rodger Mantilla MD LAB - BLOOD ORDERABLES Performing Organization Address City/State/ZIP Code [place] [address] Care Lab [address] Lab (1st floor, no room number) [...] MD IMG DIAGNOSTIC IMAGING ORDER DAILY (ABNORMAL) Phosphorus (12/06/2021 11:32 AM CDT) P athologist Signature Phosphorus 1.7 (L) 2.5 - 4.5 12/06/2021 [facility] mg/dL 12:10 PM CDT Specimen Anatomical Collection Method / Collection Time Recei rehana Time (Source) Location / Volume Laterality Blood STRUCTURE OF RIGHT Venipuncture / 12/06/2021 11:32 HAND / Unknown Unknown AM CDT 11:38 AM CDT Rodger Mantilla MD LAB - BLOOD ORDERABLES Performing Organization Address City/State/ZIP Code [place] [address] [facility] [address], no room number) (ABNORMAL) Comprehensive metabolic panel (12/06/2021 6:26 AM CDT) Patholo gist Method Time Signature Sodium 134 (L) 136 - 145 12/06/2021 [facility] mmol/L 9:34 AM CDT Potassium 3.4 3.4 - 5.3 12/06/2021 [facility] mmol/L 9:34 AM CDT Creatinine 0.72 0.67 - 12/06/2021 [facility] 1.17 mg/dL 9:34 AM CDT Urea Nitrogen 3.3 (L) 6.0 - 20.0 12/06/2021 [facility] mg/dL 9:34 AM CDT Chloride 94 (L) 98 - 107 12/06/2021 [facility] mmol/L 9:34 AM CDT Carbon Dioxide 24 22 - 29 12/06/2021 [facility]ORY (CO2) mmol/L 9:34 AM CDT Anion Gap 16 (H) 7 - 15 12/06/2021 [facility] mmol/L 9:34 AM CDT Glucose 154 (H) 70 - 99 12/06/2021 [facility] mg/dL 9:34 AM CDT Calcium 8.0 (L) 8.6 - 10.0 12/06/2021 [facility] mg/dL 9:34 AM CDT Protein Total 6.2 (L) 6.4 - 8.3 12/06/2021 [facility] g/dL 9:34 AM CDT Albumin 3.5 3.5 - 5.2 12/06/2021 [facility] g/dL 9:34 AM CDT Bilirubin Total 1.0 <=1.2 12/06/2021 [facility] mg/dL 9:34 AM CDT Alkaline 74 40 - 129 12/06/2021 [facility] Phosphatase U/L 9:34 AM CDT AST 44 10 - 50 12/06/2021 [facility] U/L 9:34 AM CDT ALT 28 10 - 50 12/06/2021 [facility] U/L 9:34 AM CDT GFR Estimate >90 >60 12/06/2021 [facility] mL/min/1.7 9:34 AM CDT 3m2 Comment: Effective April 13, 2021 eGF Rcr in adults is calculated using the 2020 CKD-EPI creatinine equation which includ es age and gender (Yuli et al., NE, DOI: 10.1056/[id number]) Specimen Anatomical Collection Method / Collection Time Recei rehana Time (Source) Location / Volume Laterality Blood STRUCTURE OF RIGHT Venipuncture / 12/06/2021 6:26 11/22 7:05 HAND / Unknown Unknown AM CDT AM CDT Rodger Mantilla MD LAB - BLOOD ORDERABLES Performing Organization Address City/State/ZIP [place] [phone] Care Lab [address] Lab (1st floor, no room number) (ABNORMAL) Phosphorus (12/06/2021 6:26 AM CDT) P athologist Signature Phosphorus 1.7 (L) 2.5 - 4.5 12/06/2021 [facility] mg/dL 9:04 AM CDT Specimen Anatomical Collection Method / Collection Time Recei rehana Time (Source) Location / Volume Laterality Blood STRUCTURE OF RIGHT Venipuncture / 12/06/2021 6:26 0808/2021 7:05 HAND / Unknown Unknown AM CDT AM CDT Rodger Mantilla MD LAB - BLOOD ORDERABLES Performing Organization Address City/State/ZIP Code Phon e [place] [facility] [address] Care Lab [address] Lab (1st floor, no room number) (ABNORMAL) Potassium (12/06/2021 6:26 AM CDT) athologist Signature Potassium 3.3 (L) 3.4 - 5.3 12/06/2021 [facility] mmol/L 7:34 AM CDT Specimen Anatomical Collection Method / Collection Time Recei rehana Time (Source) Location / Volume Laterality Blood STRUCTURE OF RIGHT Venipuncture / 12/06/2021 6:26 0808/2021 7:05 HAND / Unknown Unknown AM CDT AM CDT Rodger Mantilla MD LAB - BLOOD ORDERABLES Performing Organization Address City/[facility]/ZIP Code [place] [address] Care Lab [address] Lab (1st floor, no room number) (ABNORMAL) Platelet count (12/06/2021 6:25 AM CDT) athologist Signature Platelet Count 101 (L) 150 - 450 12/06/2021 [facility] 10e3/uL 7:17 AM CDT Specimen Anatomical Collection Method / Collection Time Recei rehana Time (Source) Location / Volume Laterality Blood STRUCTURE OF RIGHT Venipuncture / 12/06/2021 6:25 11/22 7:05 HAND / Unknown Unknown AM CDT AM CDT Rodger Mantilla MD LAB - BLOOD ORDERABLES Performing Organization Address City/State/ZIP Code [place] [address] Care Lab [address] Lab (1st floor, no room number) (ABNORMAL) Magnesium (12/06/2021 6:25 AM CDT) athologist Signature Magnesium 1.4 (L) 1.7 - 2.3 12/06/2021 [facility] mg/dL 7:32 AM CDT Specimen Anatomical Collection Method / Collection Time Recei rehana Time (Source) Location / Volume Laterality Blood STRUCTURE OF RIGHT Venipuncture / 12/06/2021 6:25 11/22 7:05 HAND / Unknown Unknown AM CDT AM CDT Rodger Mantilla MD LAB - BLOOD ORDERABLES Performing Organization Address City/[facility]/ZIP [place] [address] Care Lab [address] Lab (1st floor, no room number) (ABNORMAL) Phosphorus (12/06/2021 2:00 AM CDT) athologist Signature Phosphorus 1.6 (L) 2.5 - 4.5 12/06/2021 [facility] mg/dL 2:20 AM CDT Specimen Anatomical Collection Method / Collection Time Recei rehnaa Time (Source) Location / Volume Laterality Blood STRUCTURE OF LEFT Venipuncture / 12/06/2021 2:00 12/06 2:02 HAND / Unknown Unknown AM CDT AM CDT Rodger Mantilla MD LAB - BLOOD ORDERABLES Performing Organization Address City/[facility]/ZIP [place] [address] Care Lab [address] Lab (1st floor, no room number) (ABNORMAL) Potassium (12/05/2021 11:23 PM CDT) athologist Signature Potassium 3.2 (L) 3.4 - 5.3 12/05/2021 [facility] mmol/L 11:58 PM CDT Specimen Anatomical Collection Method / Collection Time Recei rehana Time (Source) Location / Volume Laterality Blood STRUCTURE OF LEFT Venipuncture / 12/05/2021 11:23 11/22 UPPER LIMB / Unknown PM CDT 11:39 PM CDT Unknown Rodger Mantilla MD LAB - BLOOD ORDERABLES Performing Organization Address City/[facility]/ZIP [place] [address] Care Lab [address] Lab (1st floor, no room number) (ABNORMAL) Phosphorus (12/05/2021 2:02 PM CDT) P athologist Signature Phosphorus 1.7 (L) 2.5 - 4.5 12/05/2021 [facility] mg/dL 2:24 PM CDT Specimen Anatomical Collection Method / Collection Time Recei rehana Time (Source) Location / Volume Laterality Blood STRUCTURE OF LEFT Venipuncture / 12/05/2021 2:02 12/05 2:05 HAND / Unknown Unknown PM CDT PM CDT Rodger Mantilla MD LAB - BLOOD ORDERABLES Performing Organization Address City/[facility]/ZIP [facility] [place] [address] Care Lab [address] Lab (1st floor, no room number) (ABNORMAL) Potassium (12/05/2021 11:46 AM CDT) athologist Signature Potassium 2.9 (L) 3.4 - 5.3 12/05/2021 [facility] mmol/L 12:17 PM CDT Specimen Anatomical Collection Method / Collection Time Recei rehana Time (Source) Location / Volume Laterality Blood STRUCTURE OF LEFT Venipuncture / 12/05/2021 11:46 08/07/2021 HAND / Unknown Unknown AM CDT 11:49 AM CDT Rodger Mantilla MD LAB - BLOOD ORDERABLES Performing Organization Address [facility] [place] [address] Care Lab [address] Lab (1st floor, no room number) Magnesium (12/05/2021 6:51 AM CDT) athologist Signature Magnesium 1.8 1.7 - 2.3 12/05/2021 [facility] mg/dL 8:23 AM CDT Specimen Anatomical Collection Method / Collection Time Recei rehana Time (Source) Location / Volume Laterality Blood STRUCTURE OF RIGHT Venipuncture / 12/05/2021 6:51 08/07/2021 6:55 HAND / Unknown Unknown AM CDT AM CDT Rodger Mantilla MD LAB - BLOOD ORDERABLES Performing Organization Address City/[facility]/ZIP Code [place] [address] Care Lab [address] Lab (1st floor, no room number) (ABNORMAL) CBC with platelets (12/05/2021 6:51 AM CDT) [facility] Method Time Signature WBC Count 7.0 4.0 - 11.0 12/05/2021 [facility] 10e3/uL 7:01 AM CDT RBC Count 3.57 (L) 4.40 - 12/05/2021 [facility] 5.90 7:01 AM CDT 10e6/uL Hemoglobin 10.7 (L) 13.3 - 12/05/2021 [facility] 17.7 g/dL 7:01 AM CDT Hematocrit 32.6 (L) 40.0 - 12/05/2021 [facility] 53.0 % 7:01 AM CDT MCV 91 78 - 100 12/05/2021 [facility] fL 7:01 AM CDT MCH 30.0 26.5 - 12/05/2021 [facility] 33.0 pg 7:01 AM CDT MCHC 32.8 31.5 - 12/05/2021 [facility] 36.5 g/dL 7:01 AM CDT RDW 13.2 10.0 - 12/05/2021 [facility] 15.0 % 7:01 AM CDT Platelet Count 78 (L) 150 - 450 12/05/2021 [facility] 10e3/uL 7:01 AM CDT Specimen Anatomical Collection Method / Collection Time Recei rehana Time (Source) Location / Volume Laterality Blood STRUCTURE OF RIGHT Venipuncture / 12/05/2021 6:51 11/22 6:55 HAND / Unknown Unknown AM CDT AM CDT Rodger Mantilla MD LAB - BLOOD ORDERABLES Performing Organization Address City/State/ZIP Code [place] [address] Care Lab [address] Lab (1st floor, no room number) (ABNORMAL) Comprehensive metabolic panel (12/05/2021 6:51 AM CDT) [facility] Method Time Signature Sodium 136 136 - 145 12/05/2021 [facility] mmol/L 7:27 AM CDT Potassium 3.3 (L) 3.4 - 5.3 12/05/2021 [facility] mmol/L 7:27 AM CDT Creatinine 0.93 0.67 - 12/05/2021 [facility] 1.17 mg/dL 7:27 AM CDT Urea Nitrogen 9.2 6.0 - 20.0 12/05/2021 [facility] mg/dL 7:27 AM CDT Chloride 95 (L) 98 - 107 12/05/2021 [facility] mmol/L 7:27 AM CDT Carbon Dioxide 21 (L) 22 - 29 12/05/2021 [facility] (CO2) mmol/L 7:27 AM CDT Anion Gap 20 (H) 7 - 15 12/05/2021 [facility] mmol/L 7:27 AM CDT Glucose 115 (H) 70 - 99 12/05/2021 [facility] mg/dL 7:27 AM CDT Calcium 7.9 (L) 8.6 - 10.0 12/05/2021 [facility] mg/dL 7:27 AM CDT Protein Total 6.4 6.4 - 8.3 12/05/2021 [facility] g/dL 7:27 AM CDT Albumin 3.6 3.5 - 5.2 12/05/2021 [facility] g/dL 7:27 AM CDT Bilirubin Total 1.2 <=1.2 12/05/2021 [facility] mg/dL 7:27 AM CDT Alkaline 66 40 - 129 12/05/2021 [facility] Phosphatase U/L 7:27 AM CDT AST 46 10 - 50 12/05/2021 [facility] U/L 7:27 AM CDT ALT 33 10 - 50 12/05/2021 [facility] U/L 7:27 AM CDT GFR Estimate >90 >60 12/05/2021 [facility] mL/min/1.7 7:27 AM CDT 3m2 Comment: Effective April 13, 2021 eGF Rcr in adults is calculated using the 2020 CKD-EPI creatinine equation which includ es age and gender (Yuli et al., NEJM, DOI: 10.1056/[id number]) Specimen Anatomical Collection Method / Collection Time Recei rehana Time (Source) Location / Volume Laterality Blood STRUCTURE OF RIGHT Venipuncture / 12/05/2021 6:51 11/22 6:55 HAND / Unknown Unknown AM CDT AM CDT Rodger Mantilla MD LAB - BLOOD ORDERABLES Performing Organization Address City/[facility]/ZIP [place] [address] Care Lab [address] Lab (1st floor, no room number) (ABNORMAL) Phosphorus (12/05/2021 4:25 AM CDT) P athologist Signature Phosphorus 1.6 (L) 2.5 - 4.5 12/05/2021 [facility] mg/dL 4:49 AM CDT Specimen Anatomical Collection Method / Collection Time Recei rehana Time (Source) Location / Volume Laterality Blood STRUCTURE OF LEFT Venipuncture / 12/05/2021 4:25 12/05 4:28 HAND / Unknown Unknown AM CDT AM CDT Rodger Mantilla MD LAB - BLOOD ORDERABLES Performing Organization Address City/[facility]/ZIP [place] [address] Care Lab [address] Lab (1st floor, no room number) (ABNORMAL) Troponin T, High Sensitivity (12/04/2021 11:54 PM CDT) Analysis Performed At Patho logist Time Signature Troponin T, High 35 (H) <=22 ng/L 12/05/2021 [facility] Y Sensitivity 12:22 AM CDT Specimen Anatomical Collection Method / Collection Time Recei rehana Time (Source) Location / Volume Laterality Blood STRUCTURE OF RIGHT Venipuncture / 12/04/2021 11:54 HAND / Unknown Unknown PM CDT 11:57 PM CDT Rodger Mantilla MD LAB - BLOOD ORDERABLES Performing Organization Address City/[facility]/ZIP [place] [address] Care Lab [address] Lab (1st floor, no room number) (ABNORMAL) Potassium (12/04/2021 11:54 PM CDT) P athologist Signature Potassium 2.9 (L) 3.4 - 5.3 12/05/2021 [facility] mmol/L 12:25 AM CDT Specimen Anatomical Collection Method / Collection Time Recei rehana Time (Source) Location / Volume Laterality Blood STRUCTURE OF RIGHT Venipuncture / 12/04/2021 11:54 HAND / Unknown Unknown PM CDT 11:57 PM CDT Rodger Mantilla MD LAB - BLOOD ORDERABLES Performing Organization Address City/State/ZIP Code [place] [address] Care Lab [address] Lab (1st floor, no room number) [...] 12/04/2021 LAB[facility]ATORY mg/dL 11:34 PM CDT Specific Malcom 1.023 1.003 - 12/04/2021 [facility] Y Urine 1.035 11:34 PM CDT Blood Urine Negative Negative 12/04/2021 LABORATORY 11:34 PM CDT pH Urine 6.0 5.0 - 7.0 12/04/2021 [facility] 11:34 PM CDT Protein Albumin 50 (A) Negative 12/04/2021 LAB[facility] Urine mg/dL 11:34 PM CDT Urobilinogen Normal Normal, 2.0 12/04/2021 LAB[facility] Urine mg/dL 11:34 PM CDT Nitrite Urine Negative Negative 12/04/2021 [facility] 11:34 PM CDT Leukocyte Negative Negative 12/04/2021 LAB[facility]ORY Esterase Urine 11:34 PM CDT Mucus Urine Present (A) None Seen 12/04/2021 LAB[facility] /LPF 11:34 PM CDT RBC Urine <1 <=2 /HPF 12/04/2021 [facility] 11:34 PM CDT WBC Urine <1 <=5 /HPF 12/04/2021 [facility] 11:34 PM CDT Specimen Anatomical Collection Method Collection Time Receive d Time (Source) Location / / Volume Laterality Urine URINE SPECIMEN Non-blood 12/04/2021 11:14 2 OBTAINED BY CLEAN Collection / PM CDT 11:15 PM C DT CATCH PROCEDURE / Unknown Unknown Narrative [facility] - 12/04/2021 11:34 PM CDT Urine Culture not indicated Rodger Mantilla MD LAB - URINE ORDERABLES Performing Organization Address City/State/Z[place] [address] Care Lab [address] Lab (1st floor, no room number) [...] LAB - URINE ORDERABLES Performing Organization Address City/[facility]/ZIP [place] [address] Care Lab [address] Lab (1st floor, no room number) (ABNORMAL) Phosphorus (12/04/2021 7:44 PM CDT) P athologist Signature Phosphorus 1.2 (L) 2.5 - 4.5 12/04/2021 [facility] mg/dL 8:12 PM CDT Specimen Anatomical Collection Method / Collection Time Recei rehana Time (Source) Location / Volume Laterality Blood STRUCTURE OF RIGHT Venipuncture / 12/04/2021 7:44 11/22 7:47 UPPER LIMB / Unknown PM CDT PM CDT Unknown Rodger Mantilla MD LAB - BLOOD ORDERABLES Performing Organization Address City/[facility]/ZIP [place] [address] Care Lab [address] Lab (1st floor, no room number) (ABNORMAL) Magnesium (12/04/2021 7:44 PM CDT) P athologist Signature Magnesium 2.5 (H) 1.7 - 2.3 12/04/2021 [facility] LABORATORY mg/dL 8:12 PM CDT Specimen Anatomical Collection Method / Collection Time Recei rehana Time (Source) Location / Volume Laterality Blood STRUCTURE OF RIGHT Venipuncture / 12/04/2021 7:44 11/22 7:47 UPPER LIMB / Unknown PM CDT PM CDT Unknown Rodger Mantilla MD LAB - BLOOD ORDERABLES Performing Organization Address City/[facility]/ZIP [place] [address] Care Lab [address] Lab (1st floor, no room number) (ABNORMAL) Basic metabolic panel (12/04/2021 7:44 PM CDT) Analysis Performed At Patho logist Time Signature Creatinine 1.16 0.67 - 12/04/2021 [facility] 1.17 mg/dL 8:12 PM CDT Sodium 134 (L) 136 - 145 12/04/2021 [facility] mmol/L 8:12 PM CDT Potassium 3.2 (L) 3.4 - 5.3 12/04/2021 [facility] mmol/L 8:12 PM CDT Urea Nitrogen 15.4 6.0 - 20.0 12/04/2021 [facility] mg/dL 8:12 PM CDT Chloride 91 (L) 98 - 107 12/04/2021 [facility] mmol/L 8:12 PM CDT Carbon Dioxide 17 (L) 22 - 29 12/04/2021 [facility] (CO2) mmol/L 8:12 PM CDT Anion Gap 26 (H) 7 - 15 12/04/2021 [facility] mmol/L 8:12 PM CDT Glucose 118 (H) 70 - 99 12/04/2021 [facility] mg/dL 8:12 PM CDT GFR Estimate 73 >60 12/04/2021 [facility] mL/min/1.7 8:12 PM CDT 3m2 Comment: Effective April 13, 2021 eGF Rcr in adults is calculated using the 2020 CKD-EPI creatinine equation which includ es age and gender (Yuli et al., [facility], DOI: 10.[facility]6/[id number]) Calcium 8.5 (L) 8.6 - 10.0 mg/dL 12/04/2021 8:12 PM CDT [facility] Specimen Anatomical Collection Method / Collection Time Recei rehana Time (Source) Location / Volume Laterality Blood STRUCTURE OF RIGHT Venipuncture / 12/04/2021 7:44 08/06/2021 7:47 UPPER LIMB / Unknown PM CDT PM CDT Unknown Rodger Mantilla MD LAB - BLOOD ORDERABLES Performing Organization Address City/State/ZIP Code Ph[place] [phone] Care Lab [address] Lab (1st floor, no room number) (ABNORMAL) Troponin T, High Sensitivity (12/04/2021 6:07 PM CDT) Analysis Performed At Patho logist Time Signature Troponin T, High 31 (H) <=22 ng/L 12/04/2021 [facility] LABORATOR Y Sensitivity 7:45 PM CDT Specimen Anatomical Collection Method / Collection Time Recei rehana Time (Source) Location / Volume Laterality Blood STRUCTURE OF RIGHT Venipuncture / 12/04/2021 6:07 08/06/2021 6:22 UPPER LIMB / Unknown PM CDT PM CDT Unknown Rodger Mantilla MD LAB - BLOOD ORDERABLES Performing Organization Address City/State/ZIP Code [place] [address] Care Lab [address] Lab (1st floor, no room number) AFP tumor marker (12/04/2021 4:13 PM CDT) P athologist Signature AFP tumor 2.3 <=8.3 12/05/2021 [...] Organization Address City/State/ZIP Code Phon e Number [place] [phone] Lab [address] [facility] [address], Room 3-580 (ABNORMAL) Creatinine (12/04/2021 4:13 PM CDT) athologist Signature Creatinine 1.22 (H) 0.67 - 12/04/2021 LABORATORY 1.17 mg/dL 4:48 PM CDT GFR Estimate 69 >60 12/04/2021 LABORATORY mL/min/1.7 4:48 PM CDT 3m2 Comment: Effective April 13, 2021 eGF Rcr in adults is calculated using the 2020 CKD-EPI creatinine equation which includ es age and gender (Yuli et al., [facility], DOI: 10.1056/PULXvp2594612) Specimen Anatomical Collection Method / Collection Time Recei rehana Time (Source) Location / Volume Laterality Blood STRUCTURE OF RIGHT Venipuncture / 12/04/2021 4:13 11/22 4:24 UPPER LIMB / Unknown PM CDT PM CDT Unknown Rodger Mantilla MD LAB - BLOOD ORDERABLES Performing Organization Address City/State/ZIP Code [place] [address] Care Lab [address] Lab (1st floor, no room number) CT Abdomen Pelvis w Contrast (12/04/2021 10:04 [...] EXAM: CT ABDOMEN PELVIS W CONTRAST LOCATION: [facility] DATE/TIME: 12/04/2021 9:52 AM INDICATION: abdominal pain [...] EXAM: CT ABDOMEN PELVIS W CONTRAST LOCATION: [facility] DATE/TIME: 12/04/2021 9:52 AM INDICATION: abdominal pain [...] the Xpert Xpress SARS-CoV-2 Assay on the [employer]. A dditional information about this [...] COVID-19. This test was validated by the [facility]. This laboratory is certified under the Clinical Laboratory Improvement Amendments of 1988 (CLIA-88) as qualified to perform high complexity laboratory testing. Jason Orozco MD LAB - MICRO GENERAL ORDERABL ES Performing Organization Address City/State/ZIP Code [place] [address] Care Lab [address] Lab (1st floor, no room number) (ABNORMAL) Phosphorus (12/04/2021 9:18 AM CDT) P athologist Signature Phosphorus 1.8 (L) 2.5 - 4.5 12/04/2021 [facility] mg/dL 10:01 AM CDT Specimen Anatomical Collection Method / Collection Time Recei rehana Time (Source) Location / Volume Laterality Blood STRUCTURE OF RIGHT Venipuncture / 12/04/2021 9:18 0806/2021 9:24 UPPER LIMB / Unknown AM CDT AM CDT Unknown Jason Orozco MD LAB - BLOOD ORDERABLES Performing Organization Address [facility]/ZIP [place] [phone] Care Lab [address] Lab (1st floor, no room number) Magnesium (12/04/2021 9:18 AM CDT) P athologist Signature Magnesium 1.7 1.7 - 2.3 12/04/2021 [facility] mg/dL 9:41 AM CDT Specimen Anatomical Collection Method / Collection Time Recei rehana Time (Source) Location / Volume Laterality Blood STRUCTURE OF RIGHT Venipuncture / 12/04/2021 9:18 11/22 9:24 UPPER LIMB / Unknown AM CDT AM CDT Unknown Jason Orozco MD LAB - BLOOD ORDERABLES Performing Organization Address City/State/ZIP Code [place] [address] Care Lab [address] Lab (1st floor, no room number) [...] LAB - BLOOD ORDERABLES Performing Organization Address City/[facility]/ZIP Code [place] [phone] Care Lab [address] Lab (1st floor, no room number) [...] City/State/ZIP Code Phon [place] [address] Care Lab [address] Lab (1st floor, no room number) (ABNORMAL) CBC with platelets and differential (12/04/2021 8:14 AM CDT) Patholo gist Method Time Signature WBC Count 8.5 [...] LINE / Venipuncture / 12/04/2021 8:14 2 8:23 Unknown Unknown AM CDT AM CDT Jason Orozco MD LAB - BLOOD ORDERABLES Performing Organization Address City/State/ZIP Code Ph[place] [address] Care Lab [address] Lab (1st floor, no room number) [...] LAB - BLOOD ORDERABLES Performing Organization Address City/[facility]/ZIP Code Ph[place] [address] Care Lab [address] Lab (1st floor, no room number) (ABNORMAL) Ketone Beta-Hydroxybutyrate Quantitative (12/04/2021 8:14 AM CDT) Patholo gist Method Time Signature Ketone 7.9 (HH) 0.0 - 0.6 12/04/2021 [facility] (Beta-Hydroxybut mmol/L 8:42 AM CDT yrate) Quantitative Specimen Anatomical Collection Method / Collection Time Recei rehnaa Time (Source) Location / Volume Laterality Blood VENOUS LINE / Venipuncture / 12/04/2021 8:14 2 8:22 Unknown Unknown AM CDT AM CDT Jason Orozco MD LAB - BLOOD ORDERABLES Performing Organization Address City/[facility]/ZIP [place] [address] Care Lab [address] Lab (1st floor, no room number) (ABNORMAL) Troponin T, High Sensitivity (12/04/2021 8:14 AM CDT) Analysis Performed At Patho logist Time Signature Troponin T, High 34 (H) <=22 ng/L 12/04/2021 [facility] LABORATOR Y Sensitivity 9:03 AM CDT Specimen Anatomical Collection Method / Collection Time Recei rehana Time (Source) Location / Volume Laterality Blood VENOUS LINE / Venipuncture / 12/04/2021 8:14 2 8:22 Unknown Unknown AM CDT AM CDT Jason Orozco MD LAB - BLOOD ORDERABLES Performing Organization Address [facility]/ZIP [place] [phone] Care Lab [address] Lab (1st floor, no room number) [...] LAB - BLOOD ORDERABLES Performing Organization Address City/[facility]/ZIP [place] [address] Care Lab [address] Lab (1st floor, no room number) (ABNORMAL) Comprehensive metabolic panel (12/04/2021 8:14 AM CDT) Patholo gist Method Time Signature Sodium 133 (L) 136 - 145 12/04/2021 LABORATORY mmol/L 9:00 AM CDT Potassium 3.0 (L) 3.4 - 5.3 12/04/2021 LABORATORY mmol/L 9:00 AM CDT Creatinine 1.23 (H) 0.67 - 12/04/2021 LABORATORY 1.17 9:00 AM CDT mg/dL Urea Nitrogen 17.7 6.0 - 12/04/2021 LABORATORY 20.0 9:00 AM CDT mg/dL Chloride 82 (L) 98 - 107 12/04/2021 LABORATORY mmol/L 9:00 AM CDT Carbon Dioxide 11 (L) 22 - 29 12/04/2021 LABORATORY (CO2) mmol/L 9:00 AM CDT Anion Gap 40 (H) 7 - 15 12/04/2021 LABORATORY mmol/L 9:00 AM CDT Glucose 79 70 - 99 12/04/2021 LABORATORY mg/dL 9:00 AM CDT Calcium 8.8 8.6 - 12/04/2021 LABORATORY 10.0 9:00 AM CDT mg/dL Protein Total 7.9 6.4 - 8.3 12/04/2021 LABORATORY g/dL 9:00 AM CDT Albumin 4.6 3.5 - 5.2 12/04/2021 LABORATORY g/dL 9:00 AM CDT Bilirubin Total 1.3 (H) <=1.2 12/04/2021 LABORATORY mg/dL 9:00 AM CDT Alkaline 83 40 - 129 12/04/2021 LABORATORY Phosphatase U/L 9:00 AM CDT AST 75 (H) 10 - 50 12/04/2021 LABORATORY U/L 9:00 AM CDT ALT 50 10 - 50 12/04/2021 LABORATORY U/L 9:00 AM CDT GFR Estimate 68 >60 12/04/2021 LABORATORY mL/min/1. 9:00 AM CDT 73m2 Comment: Effective April 13, 2021 eGF Rcr in adults is calculated using the 2020 CKD-EPI creatinine equation which includ es age and gender (Yuli et al., [facility], DOI: 10.1056/UUWQdn8497420) Specimen Anatomical Collection Method / Collection Time Recei rehana Time (Source) Location / Volume Laterality Blood VENOUS LINE / Venipuncture / 12/04/2021 8:14 2 8:22 Unknown Unknown AM CDT AM CDT Jason Orozco MD LAB - BLOOD ORDERABLES Performing Organization Address City/State/ZIP Code [place] [address] Care Lab [address] Lab (1st floor, no room number) EKG 12-lead, tracing only (12/04/2021 8:01 AM CDT) Component Value Ref Range Test Analysis Performed Pathologis t Method Time At Signature Systolic Blood mmHg RADIOLOGY Pressure RESULTS Diastolic Blood mmHg RADIOLOGY Pressure RESULTS Ventricular Rate 119 BPM RADIOLOGY RESULTS Atrial Rate 117 BPM RADIOLOGY RESULTS [place] Interval 122 ms RADIOLOGY RESULTS QRS Duration 94 ms RADIOLOGY RESULTS QT 328 ms RADIOLOGY RESULTS QTc 461 ms RADIOLOGY RESULTS P [place] 35 degrees RADIOLOGY RESULTS R AXIS -19 degrees RADIOLOGY RESULTS T [place] 77 degrees RADIOLOGY RESULTS Interpretation Undetermined rhythm RADIO LOGY ECG Left ventricular hypertrophy with repolarization abnormality RESULTS 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) Abnormal ECG When compared with ECG of 01-JUL-2009 09:22, Current undetermined rhythm precludes rhythm comparison, lacy chappell review Nonspecific T wave abnormality has repla kourtney inverted T waves in Inferior leads Nonspecific T wave abnormality now evident in Anterior leads Confirmed by - EMERGENCY TARUN Mora, PHYSICIAN ([id number]), editor department TATA ROMERO ([id number]) on 12/05/2021 9:26:19 AM Specimen Anatomical Collection Method Collection Time Receive d Time (Source) Location / / Volume Laterality 12/04/2021 8:01 AM 2 9:26 CDT AM CDT Jason Orozco MD ECG ORDERABLES Performing Organization Address City/State/ZIP Code Phon e Number RADIOLOGY RESULTS documented in this encounter Visit Diagnoses Diagnosis Alcoholic gastritis without bleeding, un specified chronicity - Primary Alcoholic ketoacidosis Acidosis Sprain of left ankle, unspecified ligame nt, initial encounter Alcoholic ketoacidosis Acidosis documented in this encounter Admitting Diagnoses Diagnosis Alcoholic ketoacidosis Acidosis documented in this encounter Administered Medications Inactive Administered Medications - up to 3 most recent administrations Medication Order MAR Action Action Date Dose Rate Site 0.9% sodium chloride BOLUS New Bag 12/04/2021 8:15 AM CDT 1,000 mLs 1000 mL/hr Intravenous, 1,000 mL, ONCE, at 1,000 mL/hr, Administer over 1 Hours, On 12/04/21 at 0815, For 1 dose acetaminophen (TYLENOL) tablet 650 mg Given 2021 2:22 AM CDT 650 mg 650 mg, Oral, EVERY 4 HOURS PRN, mild pain, fever, headaches, Starting on 12/06/21 at 0001, Maximum acetaminophen dose from all sources = 75 mg/kg/day not to exceed 4 grams/day. Given 12/07/2021 6:20 PM CDT 650 mg Given 12/07/2021 8:28 AM CDT 650 mg amLODIPine (NORVASC) tablet 10 mg Given 2021 8:03 AM CDT 10 mg 10 mg, Oral, DAILY, First dose (after last reorder) on 12/04/21 at 1800 Given 12/07/2021 8:28 AM CDT 10 mg Given 12/06/2021 8:15 AM CDT 10 mg atorvastatin (LIPITOR) tablet 40 mg Given 12/07/2021 9:11 PM CDT 40 mg 40 mg, Oral, DAILY, First dose (after last reorder) on 12/04/21 at 2000 Given 12/06/2021 7:57 PM CDT 40 mg Given 12/04/2021 8:42 PM CDT 40 mg dextrose 5% and 0.45% NaCl 1,000 mL New Bag 12/04/2021 10:10 AM CD T 150 mL/hr with Infuvite Adult 10 mL, thiamine 100 mg, folic acid 1 mg, potassium chloride 20 mEq, magnesium sulfate 2 g infusion 1,000 mL, at 150 mL/hr, Intravenous, ONCE, 1 dose, On 12/04/21 at 0915 enoxaparin ANTICOAGULANT (LOVENOX) injection Given 4:53 PM CDT 40 mg 40 mg 40 mg, Subcutaneous, EVERY 24 HOURS, First dose on 12/04/21 at 1600, HOLD if platelet count falls below 50% of baseline or less than 100,000/??L and notify provider. Given 12/06/2021 4:29 PM CDT 40 mg Given 12/04/2021 4:26 PM CDT 40 mg iopamidol (ISOVUE-370) solution 90 mL Given 12/04/2021 9:53 AM CDT 90 mLs 90 mL, Intravenous, ONCE, On 12/04/21 at 0940, For 1 dose ketorolac (TORADOL) injection 15 mg Given 12/04/2021 8:27 AM CDT 15 mg 15 mg, Intravenous, ONCE, On 12/04/21 at 0815, For 1 dose, Can cause pain on injection. If ordered intravenously (IV) : administer through a running maintenance fluid over 1 minute followed by a flush. If patient complains of pain on injection, may dilute 15-30 mg in 5 mL and push over 1 to 2 minutes. lactated ringers infusion New Bag 12/07/2021 9:12 PM CDT 75 mL/hr at 75 mL/hr, Intravenous, CONTINUOUS, Starting on 12/04/21 at 1600, Until Mon12/08/21 at 0744 Rate/Dose Change 12/07/2021 8:45 AM CDT 75 mL/hr New Bag 12/07/2021 2:36 AM CDT 150 mL/hr LORazepam (ATIVAN) injection 0.5 mg Given 12/04/2021 9:01 AM CDT 0.5 mg 0.5 mg, Intravenous, ONCE, On 12/04/21 at 0900, For 1 dose, This drug may cause significant respiratory depression. Monitor respiratory status and vital signs carefully for 1 hour after each dose. magnesium sulfate 2 g in water intermittent New Bag 12/05/2021 3:0 7 PM CDT 2 g infusion 2 g, Intravenous, Administer over 60 Minutes, ONCE, On 12/05/21 at 1330, For 1 dose, Magnesium level 1.6-2 mg/dL Administer 2 gm magnesium IV x 1 doses and recheck magnesium level the next AM. Ordered from the Magnesium replacement order set. magnesium sulfate 4 g in 100 mL sterile water New Bag 12:04 AM CDT 4 g (premade) 4 g, Intravenous, Administer over 120 Minutes, ONCE, On 12/06/21 at 2330, For 1 dose, Magnesium level 1.1-1.5 mg/dL. Administer 4 gm magnesium IV x 1 dose and recheck magnesium level 2-4 hours AFTER the last dose is infused. Ordered from the Magnesium replacement order set. menthol (Topical Analgesic) 2.5% (BENGAY Given 12/06/2021 10:04 PM CDT VANISHING SCENT) 2.5 % topical gel Topical, EVERY 6 HOURS PRN, moderate pain, Starting on 12/05/21 at 2145, Apply to affected area Given 12/06/2021 6:22 AM CDT Given 12/05/2021 10:10 PM CDT metoprolol succinate ER (TOPROL XL) 24 hr Given 2021 8:03 AM CDT 25 mg tablet 25 mg 25 mg, Oral, DAILY, First dose (after last reorder) on 12/04/21 at 1800, DO NOT CRUSH. Tablet may be split in half along score line. Given 12/07/2021 8:28 AM CDT 25 mg Given 12/06/2021 8:15 AM CDT 25 mg naloxone (NARCAN) injection 0.2 mg 0.2 mg, Intravenous, EVERY 2 MIN PRN, op ioid reversal, Starting on 12/04/21 at 1548, Administer intravenous route when available and notify provider when administered. For unintended sedation or respiratory depression if all of the below criteria are met: ~ respiratory rate LES S than or EQUAL to 8. ~SaO2 less than 92% and or/end-tidal CO2 is greater than 50. ~ the patient is receiving an opioid, has unintended sedations assessed as RASS (-3), and is cur rently not on mechanical ventilation. RASS scale moderate (-3) is movement or eye opening to voice but no eye contact. Patient Monitoring Once the patient has demonstrated a response to the naloxone, continue to monitor respiratory rate, depth, oxygen saturation and end-tidal CO2 (if available) every 15 mi nutes x 2, then every 30 minutes x 2, then every 1 hour x 1 after each naloxone dose. Consider tr ansfer to ICU if patient respiratory parameters have not improved after 4 nalox one doses. naloxone (NARCAN) injection 0.2 mg 0.2 mg, Intramuscular, EVERY 2 MIN PRN, opioid reversal, Starting on 12/04/21 at 1548, Administer intramuscular if an int ravenous route is not available and notify provider when administered. For unintend ed sedation or respiratory depression if all of the below criteria are met: ~ respiratory rate LESS than or EQUAL to 8. ~SaO2 less than 92% and or/end-tidal CO2 is greater th an 50. ~ the patient is receiving an opioid, has unintended sedations assessed as RASS (-3), and is currently not on mechanical ventilation. RASS scale moderate (-3) is movement or eye opening to voice but no eye contact. Patient Monitoring Once the patient has demonstrated a response to the naloxone, continue to m onitor respiratory rate, depth, oxygen saturation and end-tidal CO2 (if availab le) every 15 minutes x 2, then every 30 minutes x 2, then every 1 hour x 1 after each naloxone dose. Consider transfer to ICU if patient respiratory parameters have not improved after 4 naloxone doses. naloxone (NARCAN) injection 0.4 mg 0.4 mg, Intravenous, EVERY 2 MIN PRN, op ioid reversal, Starting on 12/04/21 at 1548, Administer intravenous route when available and notify provider when administered. For unintended sedation or respiratory depression if all of the below criteria are met: ~ respiratory rate LES S than or EQUAL to 8. ~ SaO2 less than 92% and or/end-tidal CO2 is greater than 50. ~ the patient is receiving an opioid, has unintended sedation assessed as RASS (-4 ) or (-5) and patient is currently not on mechanical ventilation. RASS scale (-4) is deep sedation with no response to voice but movement or eye opening to physical stimulation. R ASS scale (-5) is unarousable. Patient Monitoring Once the patient has demonstrated a response to the naloxone, continue to monitor respiratory rate, depth, oxygen saturation and end-tidal CO2 (if available) every 15 mi nutes x 2, then every 30 minutes x 2, then every 1 hour x 1 after each naloxone dose. Consider tr ansfer to ICU if patient respiratory parameters have not improved after 4 nalox one doses. naloxone (NARCAN) injection 0.4 mg 0.4 mg, Intramuscular, EVERY 2 MIN PRN, opioid reversal, Starting on 12/04/21 at 1548, Administer intramuscular if an int ravenous route is not available and notify provider when administered. For unintend ed sedation or respiratory depression if all of the below criteria are met: ~ res piratory rate LESS than or EQUAL to 8. ~ SaO2 less than 92% and or/end-tidal CO2 is greater jamal n 50. ~ the patient is receiving an opioid, has unintended sedation assessed as RASS (-4) or (-5) and patient is currently not on mechanical ventilation. RA SS scale (-4) is deep sedation with no response to voice but movement or eye opening to physical stimulation. RASS scale (-5) is unarousa ble. Patient Monitoring Once the patient has demonstrated a response to the nalox one, continue to monitor respiratory rate, depth, oxygen saturation and end-tidal CO2 (if availab le) every 15 minutes x 2, then every 30 minutes x 2, then every 1 hour x 1 after each naloxone dose. Consider transfer to ICU if patient respiratory parameters have not improved after 4 naloxone doses. ondansetron (ZOFRAN ODT) ODT tab 4 mg 4 mg, Oral, EVERY 6 HOURS PRN, nausea, v omiting, Starting on 12/04/21 at 1545, This is Step 1 of nausea and vomiting management. If n ausea not resolved in 15 minutes, go to Step 2 prochlorperazine ( COMPAZINE). With dry hands, peel back foil backing and gently remove tablet. Do not push oral disintegrating tablet through foil backing. Administer immediately on tongue and ora l disintegrating tablet dissolves in seconds, then swallow with saliva. Liquid not required. ondansetron (ZOFRAN) injection 4 mg Given 12/04/2021 8:27 AM CDT 4 mg 4 mg, Intravenous, ONCE, Administer over 2-5 Minutes, On 12/04/21 at 0815, For 1 dose, Irritant. ondansetron (ZOFRAN) injection 4 mg Given 12/04/2021 10:10 AM CDT 4 mg 4 mg, Intravenous, ONCE, Administer over 2-5 Minutes, On 12/04/21 at 0945, For 1 dose, Irritant. ondansetron (ZOFRAN) injection 4 mg Given 12/05/2021 8:38 AM CDT 4 mg 4 mg, Intravenous, EVERY 6 HOURS PRN, nausea, vomiting, Administer over 2-5 Minutes, Starting on 12/04/21 at 1545, Give IF patient unable to tolerate oral medication. This is Step 1 of nausea and vomiting management. If nausea not resolved in 15 minutes, go to Step 2 prochlorperazine (COMPAZINE). Irritant. oxyCODONE-acetaminophen (PERCOCET) 5-325 MG Given 11/22 8:03 AM CDT 1 tablet per tablet 1 tablet 1 tablet, Oral, EVERY 4 HOURS PRN, moderate to severe pain, Starting on 12/06/21 at 1304, Maximum acetaminophen dose from all sources= 75 mg/kg/day not to exceed 4 grams Given 12/07/2021 9:11 PM CDT 1 tablet Given 12/07/2021 2:07 PM CDT 1 tablet pantoprazole (PROTONIX) EC tablet 40 mg Given 2021 8:03 AM CDT 40 mg 40 mg, Oral, 2 TIMES DAILY BEFORE MEALS, First dose on Mon12/07/21 at 1630, DO NOT CRUSH. Given 12/07/2021 4:53 PM CDT 40 mg pantoprazole (PROTONIX) IV push injection 40 Given 8:28 AM CDT 40 mg mg 40 mg, Intravenous, 2 TIMES DAILY, First dose on Mon12/04/21 at 2100, Irritant. Given 12/06/2021 8:00 PM CDT 40 mg Given 12/06/2021 8:15 AM CDT 40 mg potassium chloride 10 mEq in 100 mL New Bag 12/05/2021 8:13 AM CDT 10 mEq 100 mL/hr sterile water intermittent infusion (premix) 10 mEq, Intravenous, Administer over 60 Minutes, at 100 mL/hr, EVERY HOUR, First dose on Mon12/05/21 at 0200, For 6 doses, Infuse via PERIPHERAL or CENTRAL LINE. Potassium level 2.7 - 3 mmol/L. Administer 10 mEq potassium chloride IV x 6 doses and recheck potassium level 1-2 hours AFTER last IV dose. Ordered from the Potassium replacement order set. New Bag 12/05/2021 6:19 AM CDT 10 mEq 100 mL/hr New Bag 12/05/2021 5:23 AM CDT 10 mEq 100 mL/hr potassium chloride 10 mEq in 100 mL New Bag 12/05/2021 8:47 PM CDT 10 mEq 100 mL/hr sterile water intermittent infusion (premix) 10 mEq, Intravenous, Administer over 60 Minutes, at 100 mL/hr, EVERY HOUR, First dose on Mon12/05/21 at 1300, For 6 doses, Infuse via PERIPHERAL or CENTRAL LINE. Potassium level 2.7 - 3 mmol/L. Administer 10 mEq potassium chloride IV x 6 doses and recheck potassium level 1-2 hours AFTER last IV dose. Ordered from the Potassium replacement order set. New Bag 12/05/2021 6:32 PM CDT 10 mEq 100 mL/hr New Bag 12/05/2021 5:31 PM CDT 10 mEq 100 mL/hr potassium chloride 10 mEq in 100 mL New Bag 12/06/2021 4:13 AM CDT 10 mEq 100 mL/hr sterile water intermittent infusion (premix) 10 mEq, Intravenous, Administer over 60 Minutes, at 100 mL/hr, EVERY HOUR, First dose on Mon12/06/21 at 0100, For 4 doses, Infuse via PERIPHERAL or CENTRAL LINE. Potassium level 3.1 - 3.4 mmol/L Administer 10 mEq potassium chloride IV x 4 doses and recheck potassium level 1-2 hours after last IV dose. Ordered from the Potassium replacement order set. New Bag 12/06/2021 3:17 AM CDT 10 mEq 100 mL/hr New Bag 12/06/2021 2:01 AM CDT 10 mEq 100 mL/hr potassium chloride ER (KLOR-CON M) CR tablet Given 11:00 AM CDT 20 mEq 20 mEq 20 mEq, Oral, ONCE, On Mon12/07/21 at 1100, For 1 dose, Potassium level 2.7 - 3 mmol/L Ordered from the Potassium replacement order set. DO NOT CRUSH, Potassium Replacement: Potassium level 2.7-3 mmol/L, Recheck: Potassium level 4 hours AFTER last oral dose potassium chloride ER (KLOR-CON M) CR tablet Given 6:20 PM CDT 20 mEq 20 mEq 20 mEq, Oral, ONCE, On Mon12/07/21 at 1800, For 1 dose, Potassium level 3.5-3.8 mmol/L Ordered from the Potassium replacement order set. DO NOT CRUSH, Potassium Replacement: Potassium level 3.5-3.8 mmol/L, Recheck: Potassium level next AM potassium chloride ER (KLOR-CON M) CR tablet Given 8:42 PM CDT 40 mEq 40 mEq 40 mEq, Oral, ONCE, On Mon12/04/21 at 2030, For 1 dose, Potassium level 3.1 - 3.4 mmol/L Ordered from the Potassium replacement order set. DO NOT CRUSH, Potassium Replacement: Potassium level 3.1-3.4 mmol/L, Recheck: Potassium level 4 hours AFTER last oral dose potassium chloride ER (KLOR-CON M) CR tablet Given 8:28 AM CDT 40 mEq 40 mEq 40 mEq, Oral, ONCE, On Mon12/07/21 at 0900, For 1 dose, Potassium level 2.7 - 3 mmol/L Ordered from the Potassium replacement order set. DO NOT CRUSH, Potassium Replacement: Potassium level 2.7-3 mmol/L, Recheck: Potassium level 4 hours AFTER last oral dose prochlorperazine (COMPAZINE) injection 1 0 mg 10 mg, Intravenous, EVERY 6 HOURS PRN, nausea, vomitin g, Administer over 1-2 Minutes, Starting on 12/04/21 at 1545, IF patient u nable to tolerate oral medication. This is Step 2 of nausea and vomiting management. Give if nausea not resolved 15 minutes after giving ondansetron (ZOFRAN). prochlorperazine (COMPAZINE) suppository 25 mg 25 mg, Rectal, EVERY 12 HOURS PRN, nausea, vomiting, S tarting on 12/04/21 at 1545, This is Step 2 of nausea and vomit ing management. Give if nausea not resolved 15 minutes after giving ondansetron (ZOFRAN). prochlorperazine (COMPAZINE) tablet 10 m g 10 mg, Oral, EVERY 6 HOURS PRN, vomiting , Starting on 12/04/21 at 1545, This is Step 2 of nausea and vomiting management . Give if nausea not resolved 15 minutes after giving ondansetron (ZOFRAN). sodium chloride (PF) 0.9% PF flush 3 mL Given 12/07/2021 8:27 AM CDT 3 mLs 3 mL, Intracatheter, EVERY 8 HOURS, First dose on 12/04/21 at 1600, to lock peripheral IV dormant line Given 12/07/2021 12:04 AM CDT 3 mLs sodium chloride (PF) 0.9% PF flush 65 mL Given 12/04/2021 9:56 AM CDT 65 mLs 65 mL, Intravenous, ONCE, On 12/04/21 at 0940, For 1 dose sodium phosphate (NaPHOS) 15 mMol in 250 New Bag 022 11:16 PM CDT 15 mmol mL D5W PREMADE infusion 15 mmol, Intravenous, EVERY 2 HOURS, Administer over 2 Hours, First dose on Mon12/04/21 at 2030, For 2 doses, Phosphorus level 1.1-1.9 mg/dL Recheck phosphorus level 2-4 hours following the end of the infusion. Ordered from the Phosphorus replacement order set. Each mmol of phosphate provides 1.33 mEq of Sodium. Multiply the patient's phosphate dose by 1.33 to determine the amount of sodium in this dose., Phosphorus Replacement: Phosphorus level 1.1-1.9 mg/dL and Creatinine Clearance GREATER than or EQUAL to 30 mL/min, Recheck: Phosphorus level 2-4 hours after end of infusion New Bag 12/04/2021 8:53 PM CDT 15 mmol sodium phosphate (NaPHOS) 15 mMol in 250 New Bag 12/05/2021 8: 38 AM CDT 15 mmol mL D5W PREMADE infusion 15 mmol, Intravenous, EVERY 2 HOURS, Administer over 2 Hours, First dose on Mon12/05/21 at 0600, For 2 doses, Phosphorus level 1.1-1.9 mg/dL Recheck phosphorus level 2-4 hours following the end of the infusion. Ordered from the Phosphorus replacement order set. Each mmol of phosphate provides 1.33 mEq of Sodium. Multiply the patient's phosphate dose by 1.33 to determine the amount of sodium in this dose., Phosphorus Replacement: Phosphorus level 1.1-1.9 mg/dL and Creatinine Clearance GREATER than or EQUAL to 30 mL/min, Recheck: Phosphorus level 2-4 hours after end of infusion New Bag 12/05/2021 6:19 AM CDT 15 mmol sodium phosphate (NaPHOS) 15 mMol in 250 New Bag 12/07/2021 8: 31 AM CDT 15 mmol mL D5W PREMADE infusion 15 mmol, Intravenous, ONCE, Administer over 4 Hours, On Mon12/07/21 at 0730, For 1 dose, Phosphorus level 2-2.4 mg/dL Recheck phosphorus level next AM. Ordered from the Phosphorus replacement order set. Each mmol of phosphate provides 1.33 mEq of Sodium. Multiply the patient's phosphate dose by 1.33 to determine the amount of sodium in this dose., Phosphorus Replacement: Phosphorus level 2-2.4 mg/dL and Creatinine Clearance GREATER than or EQUAL to 30 mL/min, Recheck: Phosphorus level next AM sodium phosphate (NaPHOS) 9 mMol in 250 mL New Bag 12/05 8:46 PM CDT 9 mmol D5W (pre-mix) infusion 9 mmol, Intravenous, EVERY 2 HOURS, Administer over 2 Hours, First dose on Mon12/05/21 at 1700, For 2 doses, Phosphorus level 1.1-1.9 mg/dL Recheck phosphorus level 2-4 hours following the end of the infusion. Ordered from the Phosphorus replacement order set. Each mmol of phosphate provides 1.33 mEq of Sodium. Multiply the patient's phosphate dose by 1.33 to determine the amount of sodium in this dose., Phosphorus Replacement: Phosphorus level 1.1-1.9 mg/dL and Creatinine Clearance GREATER than or EQUAL to 30 mL/min, Recheck: Phosphorus level 2-4 hours after end of infusion New Bag 12/05/2021 6:33 PM CDT 9 mmol sodium phosphate (NaPHOS) 9 mMol in 250 mL New Bag 12/06 6:21 AM CDT 9 mmol D5W (pre-mix) infusion 9 mmol, Intravenous, EVERY 2 HOURS, Administer over 2 Hours, First dose on Mon12/06/21 at 0400, For 2 doses, Phosphorus level 1.1-1.9 mg/dL Recheck phosphorus level 2-4 hours following the end of the infusion. Ordered from the Phosphorus replacement order set. Each mmol of phosphate provides 1.33 mEq of Sodium. Multiply the patient's phosphate dose by 1.33 to determine the amount of sodium in this dose., Phosphorus Replacement: Phosphorus level 1.1-1.9 mg/dL and Creatinine Clearance GREATER than or EQUAL to 30 mL/min, Recheck: Phosphorus level 2-4 hours after end of infusion New Bag 12/06/2021 4:13 AM CDT 9 mmol sodium phosphate (NaPHOS) 9 mMol in 250 mL New Bag 12/06 1:13 PM CDT 9 mmol D5W (pre-mix) infusion 9 mmol, Intravenous, EVERY 2 HOURS, Administer over 2 Hours, First dose on Mon12/06/21 at 1000, For 2 doses, Phosphorus level 1.1-1.9 mg/dL Recheck phosphorus level 2-4 hours following the end of the infusion. Ordered from the Phosphorus replacement order set. Each mmol of phosphate provides 1.33 mEq of Sodium. Multiply the patient's phosphate dose by 1.33 to determine the amount of sodium in this dose., Phosphorus Replacement: Phosphorus level 1.1-1.9 mg/dL and Creatinine Clearance GREATER than or EQUAL to 30 mL/min, Recheck: Phosphorus level 2-4 hours after end of infusion New Bag 12/06/2021 10:22 AM CDT 9 mmol documented in this encounter Active and Recently Administered Medications Times are shown in CDT. Scheduled Medication Order 12/06/2021 12/07/2021 2021 amLODIPine (NORVASC) tablet 10 mg 0815 (Given - Provider: Shanon Valdez RN) 08 (Given - Provider: Mable Valdez, OZZIE) 08 (Given - Provider: Mable Valdez RN) 10 mg, Oral, DAILY, First dose (after last reorder) on Sat at 1800 atorvastatin (LIPITOR) tablet 40 mg 1956 (Given - Provider: Sharifa Sunshine RN) 2110 (Given - Provider: Sharifa Sunshine RN) 40 mg, Oral, DAILY, First dose (after last reorder) on Sat at 2000 enoxaparin ANTICOAGULANT (LOVENOX) injection 40 mg 162 9 (Given - Provider: Mable Valdez RN) 1653 (Given - Provider: Mable Valdez RN) 40 mg, Subcutaneous, EVERY 24 HOURS, Fir st dose on 12/04/21 at 1600, HOLD if platelet count falls below 50% of baseline or less than 100,000/??L and notify provider. magnesium sulfate 4 g in 100 mL sterile water (premade) (COM PLETED) 0004 (New Bag - Provider: Sharifa Sunshine RN) 4 g, Intravenous, Administer over 120 Mi nutes, ONCE, On 12/06/21 at 2330, For 1 dose, Magnesium level 1.1-1.5 mg/dL. Administer 4 gm magnesium IV x 1 dose and recheck magnesium level 2-4 hours AFTER the last dose is infused. Ordered from the Magnesium replacement order set. metoprolol succinate ER (TOPROL XL) 24 hr tablet 25 mg 0815 (Given - Provider: Mable Valdez RN) 08 (Given - Provider: Mable Valdez RN) 0803 (Give n - Provider: Mable Valdez, OZZIE) 25 mg, Oral, DAILY, First dose (after la st reorder) on Mon12/04/21 at 1800, DO NOT CRUSH. Tablet may be split in half along score line. pantoprazole (PROTONIX) EC tablet 40 mg 1653 (Given - Provider: Mable Valdez, RN) 0803 (Given - Provider: Mable Valdez, RN) 40 mg, Oral, 2 TIMES DAILY BEFORE MEALS, First dose on Mon12/07/21 at 1630, DO NOT CRUSH. pantoprazole (PROTONIX) IV push injection 40 mg (CANCE LED) 08 (Given - Provider: Mable Valdez, RN)1999 (Given - Provider: Sharifa Sunshine RN) 08 (Given - Provider: Mable Valdez, OZZIE) 40 mg, Intravenous, 2 TIMES DAILY, First dose on Mon at 2100, Irritant. potassium chloride 10 mEq in 100 mL ster ile water intermittent infusion (premix) (COMPLETED) 0047 (New Bag - Provider: Kassandra nova RN)020 (New Bag - Provider: Kassandra Gillette, OZZIE)0317 (New Bag - Provider: Kassandra Gillette, OZZIE)0413 (New Bag - Provider: Kassandra Gillette RN) 10 mEq, Intravenous, Administer over 60 Minutes, at 100 mL/hr, EVERY HOUR, First dose on Mon12/06/21 at 0100, For 4 doses, Infuse via PERIPHERAL or CENTRAL LINE. Potassium level 3.1 - 3.4 mmol/L Adminis ter 10 mEq potassium chloride IV x 4 dos es and recheck potassium level 1-2 hours after last IV dose. Ordered from the Potassium replacement order set. potassium chloride ER (KLOR-CON M) CR tablet 20 mEq (COMPLET ED) 1100 (Given - Provider: Mable Valdez, OZZIE) 20 mEq, Oral, ONCE, On Mon12/07/21 at 11 00, For 1 dose, Potassium level 2.7 - 3 mmol/L Ordered from the Potassium replacement order set. DO NOT CRUSH, Potassium Replacement: Potassium level 2.7-3 mmol/L , Recheck: Potassium level 4 hours AFTER last oral dose potassium chloride ER (KLOR-CON M) CR tablet 20 mEq (COMPLET ED) 1820 (Given - Provider: Mable Valdez RN) 20 mEq, Oral, ONCE, On Mon12/07/21 at 18 00, For 1 dose, Potassium level 3.5-3.8 mmol/L Ordered from the Potassium replacement order set. DO NOT CRUSH, Potassium Replacement: Potassium level 3.5-3.8 mmol/L, Recheck: Potassium level next AM potassium chloride ER (KLOR-CON M) CR tablet 40 mEq ([facility] ED) 0828 (Given - Provider: Mable Valdez RN) 40 mEq, Oral, ONCE, On Mon12/07/21 at 09 00, For 1 dose, Potassium level 2.7 - 3 mmol/L Ordered from the Potassium replacement order set. DO NOT CRUSH, Potassium Replacement: Potassium level 2.7-3 mmol/L , Recheck: Potassium level 4 hours AFTER last oral dose sodium chloride (PF) 0.9% PF flush 3 mL 0715 (Not Give n - Provider: Mable Valdez RN - Reason: IV Infusing)1531 (Not Given - Provider: Mable Valdez RN - Reason: IV Infusing) 0004 (Given - Provider: Gianni Mills)0720 (Not Given - Provider: Mable Valdez RN - Reason: IV Infusing)0827 (Given - Provider: Mable Valdez RN)1507 (Not Given - Provider: Mable Valdez RN - Reason: IV Infusing) 0718 (Not Given - Provider: Mable brenner RN - Reason: IV Infusing) 3 mL, Intracatheter, EVERY 8 HOURS, Firs t dose on Mon12/04/21 at 1600, to lock peripheral IV dormant line 2315 (Not Given - Provider: Sharifa Sunshine RN - Reason: IV Infusing) sodium phosphate (NaPHOS) 15 mMol in 250 mL D5W PREMADE infu nichole (COMPLETED) 0831 (New Bag - Provider: Mable Valdez RN) 15 mmol, Intravenous, ONCE, Administer o domenico 4 Hours, On Mon12/07/21 at 0730, For 1 dose, Phosphorus level 2-2.4 mg/dL Recheck phosphorus level next AM. Ordered from the Phosphorus replacement order set. Each mmol of phosphate provides 1.33 mE q of Sodium. Multiply the patient's phosphate dose by 1.33 to determine the amount of sodium in this dose., Phosphorus Replacement: Phosphorus level 2-2.4 mg/dL a nd Creatinine Clearance GREATER than or EQUAL to 30 mL/min, Recheck: Phosphorus level next AM sodium phosphate (NaPHOS) 9 mMol in 250 mL D5W (pre-mi x) infusion (COMPLETED) 0413 (New Bag - Provider: Kassandra Gillette RN)0621 (New Bag - Provider: Kassandra Gillette RN) 9 mmol, Intravenous, EVERY 2 HOURS, Admi nister over 2 Hours, First dose on Mon12/06/21 at 0400, For 2 doses, Phosphorus level 1.1-1.9 mg/dL Recheck phosphorus level 2-4 hours following the end of the in fusion. Ordered from the Phosphorus repl acement order set. Each mmol of phosphate provides 1.33 mEq of Sodium. Multiply the patient's phosphate dose by 1.33 to determine the amount of sodium in this dos e., Phosphorus Replacement: Phosphorus l evel 1.1-1.9 mg/dL and Creatinine Clearance GREATER than or EQUAL to 30 mL/min, Recheck: Phosphorus level 2-4 hours after end of infusion sodium phosphate (NaPHOS) 9 mMol in 250 mL D5W (pre-mi x) infusion (COMPLETED) 1022 (New Bag - Provider: Mable Valdez RN)1313 (New Bag - Provider: Mable Valdez, OZZIE) 9 mmol, Intravenous, EVERY 2 HOURS, Admi nister over 2 Hours, First dose on Mon12/06/21 at 1000, For 2 doses, Phosphorus level 1.1-1.9 mg/dL Recheck phosphorus level 2-4 hours following the end of the in fusion. Ordered from the Phosphorus repl acement order set. Each mmol of phosphate provides 1.33 mEq of Sodium. Multiply the patient's phosphate dose by 1.33 to determine the amount of sodium in this dos e., Phosphorus Replacement: Phosphorus l evel 1.1-1.9 mg/dL and Creatinine Clearance GREATER than or EQUAL to 30 mL/min, Recheck: Phosphorus level 2-4 hours after end of infusion Continuous Medication Order 12/06/2021 12/07/2021 2021 lactated ringers infusion (CANCELED) 0502 (New Bag - P rovider: Kassandra Gillette RN)1956 (New Bag - Provider: Sharifa Sunshine, OZZIE)2003 (Rate/Dose Verify - Provider: Sharifa Sunshine RN) 0236 (New Bag - Provider: Sharifa Sunshine RN)0845 (Rate/Dose Change - Provider: Mable Valdez, RN)211 (New Bag - Provider: Sharifa Sunshine RN) 0753 (Stopped - Provider: Mable Valdez RN) at 75 mL/hr, Intravenous, CONTINUOUS, St arting on 12/04/21 at 1600, Until Mon12/08/21 at 0744 PRN Medication Order 12/06/2021 12/07/2021 2021 acetaminophen (TYLENOL) tablet 650 mg 0005 (Given - Pr ovider: Kassandra Gillette RN)0621 (Given - Provider: Kassandra Gillette RN)1629 (Given - Provider: Mable Valdez RN)202 (Given - Provider: Sharifa Sunshine RN) 0828 (Given - Provider: Mable Valdez, OZZIE)1820 (Given - Provider: Mable Valdez, OZZIE) 0222 (Given - Provider: Sharifa Sunshine RN) 650 mg, Oral, EVERY 4 HOURS PRN, mild pa in, fever, headaches, Starting on 12/06/21 at 0001, Maximum acetaminophen dose from all sources = 75 mg/kg/day not to exceed 4 grams/day. lidocaine (LMX4) cream Topical, EVERY 1 HOUR PRN, pain, with VA D insertion, Starting on 12/04/21 at 1545, Apply at least 30 minutes prior to VAD insertion in divided doses as needed for size of site for insertion. MAX Dose : 2.5 g (?? of 5 g tube) Do NOT give if patient has a history of allergy to any local anesthetic or any erin product. Do NOT use both lidocaine intradermal/subcutaneous injection and the lidocaine cream on the same site. lidocaine 1 % 0.1-1 mL 0.1-1 mL, Other, EVERY 1 HOUR PRN, mild pain with VAD insertion, Starting on 12/04/21 at 1545, MAX dose 1 mL subcutaneous OR intradermal along the side of the vein in divided doses as needed for VAD insertion. Do NOT give if patient has a history of allergy to any local anesthetic or any erin product. Do NOT use both lidocaine intradermal/subcutaneous injection and the lidocaine cream on the same site. melatonin tablet 1 mg 1 mg, Oral, AT BEDTIME PRN, sleep, Start ing on 12/04/21 at 1545, Do not give unless at least 6 hours of uninterrupted sleep is expected. menthol (Topical Analgesic) 2.5% (BENGAY VANISHING SCE NT) 2.5 % topical gel 0622 (Given - Provider: Kassandra Gillette, RN)2204 (Given - Provider: Sharifa Sunshine, OZZIE) Topical, EVERY 6 HOURS PRN, moderate chey n, Starting on 12/05/21 at 2145, Apply to affected area naloxone (NARCAN) injection 0.2 mg(Linked Group 1) 0.2 mg, Intravenous, EVERY 2 MIN PRN, op ioid reversal, Starting on 12/04/21 at 1548, Administer intravenous route when available and notify provider when administered. For unintended sedation or resp iratory depression if all of the below c riteria are met: ~ respiratory rate LESS than or EQUAL to 8. ~SaO2 less than 92% and or/end-tidal CO2 is greater than 50. ~ the patient is receiving an opioid, larson s unintended sedations assessed as RASS (-3), and is currently not on mechanical ventilation. RASS scale moderate (-3) is movement or eye opening to voice but no eye contact. Patient Monitoring Once the patient has demonstrated a response to the naloxone, continue to monitor respiratory rate, depth, oxygen saturation and end-tidal CO2 (if available) every 15 minutes x 2, then every 30 minutes x 2, the n every 1 hour x 1 after each naloxone d ose. Consider transfer to ICU if patient respiratory parameters have not improved after 4 naloxone doses. naloxone (NARCAN) injection 0.2 mg(Linked Group 1) 0.2 mg, Intramuscular, EVERY 2 MIN PRN, opioid reversal, Starting on 12/04/21 at 1548, Administer intramuscular if an intravenous route is not available and notify provider when administered. For uni ntended sedation or respiratory depressi on if all of the below criteria are met: ~ respiratory rate LESS than or EQUAL to 8. ~SaO2 less than 92% and or/end-tidal CO2 is greater than 50. ~ the patient is receiving an opioid, has unintended sed ations assessed as RASS (-3), and is currently not on mechanical ventilation. RASS scale moderate (-3) is movement or eye opening to voice but no eye contact. Pat ient Monitoring Once the patient has dem onstrated a response to the naloxone, continue to monitor respiratory rate, depth, oxygen saturation and end-tidal CO2 (if available) every 15 minutes x 2, then e very 30 minutes x 2, then every 1 hour x 1 after each naloxone dose. Consider transfer to ICU if patient respiratory parameters have not improved after 4 naloxone doses. naloxone (NARCAN) injection 0.4 mg(Linked Group 1) 0.4 mg, Intravenous, EVERY 2 MIN PRN, op ioid reversal, Starting on 12/04/21 at 1548, Administer intravenous route when available and notify provider when administered. For unintended sedation or resp iratory depression if all of the below c riteria are met: ~ respiratory rate LESS than or EQUAL to 8. ~ SaO2 less than 92% and or/end-tidal CO2 is greater than 50. ~ the patient is receiving an opioid, h as unintended sedation assessed as RASS (-4) or (-5) and patient is currently not on mechanical ventilation. RASS scale (-4) is deep sedation with no response to voice but movement or eye opening to phy sical stimulation. RASS scale (-5) is un arousable. Patient Monitoring Once the patient has demonstrated a response to the naloxone, continue to monitor respiratory rate, depth, oxygen saturation and end -tidal CO2 (if available) every 15 minut es x 2, then every 30 minutes x 2, then every 1 hour x 1 after each naloxone dose. Consider transfer to ICU if patient respiratory parameters have not improved after 4 naloxone doses. naloxone (NARCAN) injection 0.4 mg(Linked Group 1) 0.4 mg, Intramuscular, EVERY 2 MIN PRN, opioid reversal, Starting on 12/04/21 at 1548, Administer intramuscular if an intravenous route is not available and notify provider when administered. For uni ntended sedation or respiratory depressi on if all of the below criteria are met: ~ respiratory rate LESS than or EQUAL to 8. ~ SaO2 less than 92% and or/end- tidal CO2 is greater than 50. ~ the patient i s receiving an opioid, has unintended se dation assessed as RASS (-4) or (-5) and patient is currently not on mechanical ventilation. RASS scale (-4) is deep sedation with no response to voice but moveme nt or eye opening to physical stimulatio n. RASS scale (-5) is unarousable. Patient Monitoring Once the patient has demonstrated a response to the naloxone, continue to monitor respiratory rate, depth, o xygen saturation and end-tidal CO2 (if a vailable) every 15 minutes x 2, then every 30 minutes x 2, then every 1 hour x 1 after each naloxone dose. Consider transfer to ICU if patient respiratory parameters have not improved after 4 naloxone doses. ondansetron (ZOFRAN ODT) ODT tab 4 mg(Linked Group 2) 4 mg, Oral, EVERY 6 HOURS PRN, nausea, v omiting, Starting on 12/04/21 at 1545, This is Step 1 of nausea and vomiting management. If nausea not resolved in 15 minutes, go to Step 2 prochlorperazine (C OMPAZINE). With dry hands, peel back foi l backing and gently remove tablet. Do not push oral disintegrating tablet through foil backing. Administer immediately on tongue and oral disintegrating tablet d issolves in seconds, then swallow with saliva. Liquid not requir ed. ondansetron (ZOFRAN) injection 4 mg(Linked Group 2) 4 mg, Intravenous, EVERY 6 HOURS PRN, na usea, vomiting, Administer over 2-5 Minutes, Starting on 12/04/21 at 1545, Give IF patient unable to tolerate oral medication. This is Step 1 of nausea and vom iting management. If nausea not resolved in 15 minutes, go to Step 2 prochlorperazine (COMPAZINE). Irritant. oxyCODONE-acetaminophen (PERCOCET) 5-325 MG per tablet 1 tablet 1313 (Given - Provider: Mable Valdez RN)1717 (Given - Provider: Angelique Garcia RN)2204 (Given - Provider: Sharifa Sunshine, OZZIE) 0458 (Given - Provider: Sharifa Sunshine, OZZIE)1407 (Given - Provider: Mable Valdez RN)2111 (Given - Provider: Sharifa Sunshine RN) 0803 (Given - Provider: Mable Valdez RN) 1 tablet, Oral, EVERY 4 HOURS PRN, moder ate to severe pain, Starting on 12/06/21 at 1304, Maximum acetaminophen dose from all sources= 75 mg/kg/day not to exceed 4 grams prochlorperazine (COMPAZINE) injection 10 mg(Linked Group 3) 10 mg, Intravenous, EVERY 6 HOURS PRN, n ausea, vomiting, Administer over 1-2 Minutes, Starting on 12/04/21 at 1545, IF patient unable to tolerate oral medication. This is Step 2 of nausea and vomitin g management. Give if nausea not resolve d 15 minutes after giving ondansetron (ZOFRAN). prochlorperazine (COMPAZINE) suppository 25 mg(Linked Group 3) 25 mg, Rectal, EVERY 12 HOURS PRN, nause a, vomiting, Starting on 12/04/21 at 1545, This is Step 2 of nausea and vomiting management. Give if nausea not resolved 15 minutes after giving ondansetron (ZOFRAN). prochlorperazine (COMPAZINE) tablet 10 mg(Linked Group 3) 10 mg, Oral, EVERY 6 HOURS PRN, vomiting , Starting on 12/04/21 at 1545, This is Step 2 of nausea and vomiting management. Give if nausea not resolved 15 minutes after giving ondansetron (ZOFRAN). sodium chloride (PF) 0.9% PF flush 3 mL 3 mL, Intracatheter, EVERY 1 MIN PRN, li ne flush, other, to ensure patency or to lock dormant line, Starting on 12/04/21 at 1545 Linked Groups Order Group 1: naloxone (NARCAN) injection 0.2 mgJump to med 0.2 mg, Intravenous, EVERY 2 MIN PRN, op ioid reversal, Starting on 12/04/21 at 1548
Administer intravenous route when available and notify provider when administered. For unintended sedation or respiratory depression if a ll of the below criteria are met: ~ respiratory rate LESS than or EQUAL to 8. ~SaO2 less than 92% and or/end- tidal CO2 is greater than 50.& nbsp;~ the patient is receiving an opioi d, has unintended sedations assessed as RASS (-3), and is currently not on mechanical ventilation. RASS scale moderate (-3) is movement or eye opening to voice but no eye contact.&nbs p; Patient Monitoring Once the patient has demonstrated a response to the naloxone, continue to monitor respiratory rate, depth, oxygen satu ration and end-tidal CO2 (if available) every 15 minutes x 2, then every 30 minutes x 2, then every 1 hour x 1 after each naloxone dose. Consider transfer to ICU if patient respirator y parameters have not improved after 4 n aloxone doses.
Or naloxone (NARCAN) injection 0.4 mgJump to med 0.4 mg, Intravenous, EVERY 2 MIN PRN, op ioid reversal, Starting on 12/04/21 at 1548
Administer intravenous route when available and notify provider when administered. For unintended sedation or respiratory depression if a ll of the below criteria are met: ~ respiratory rate LESS than or EQUAL to 8. ~ SaO2 less than 92% and or/end- tidal CO2 is greater than 50.& nbsp;~ the patient is receiving an opioi d, has unintended sedation assessed as RASS (-4) or (-5) and patient is currently not on mechanical ventilation. RASS scale (-4) is deep sedati on with no response to voice but movemen t or eye opening to physical stimulation. RASS scale (-5) is unarousable. Patient Monitoring On ce the patient has demonstrated a respon se to the naloxone, continue to monitor respiratory rate, depth, oxygen saturation and end-tidal CO2 (if available) every 15 minutes x 2, then every 30 minutes x 2, then every 1 hour x 1 after each nalo xone dose. Consider transfer to ICU if patient respiratory parameters have not improved after 4 naloxone doses.
Or naloxone (NARCAN) injection 0.2 mgJump to med 0.2 mg, Intramuscular, EVERY 2 MIN PRN, opioid reversal, Starting on 12/04/21 at 1548
Administer intramuscular if an intravenous route is not available and notify provider when administered. For unintended sedation or respira tory depression if all of the below criteria are met: ~ respiratory rate LESS than or EQUAL to 8. ~SaO2 less than 92% and or/end-tidal CO2 is greater than 50. ~ the patient i s receiving an opioid, has unintended sedations assessed as RASS (-3), and is currently not on mechanical ventilation. RASS scale moderate (-3) is movement or eye opening to voice but no eye contact. Patient Monitoring Once the patient has demonstrated a response to the naloxone, continue to monitor respiratory rate, depth, oxygen saturation and end-t idal CO2 (if available) every 15 minutes x 2, then every 30 minutes x 2, then every 1 hour x 1 after each naloxone dose. Consider transfer to [facility] if patient respiratory parameters hav e not improved after 4 naloxone doses.
Or naloxone (NARCAN) injection 0.4 mgJump to med 0.4 mg, Intramuscular, EVERY 2 MIN PRN, opioid reversal, Starting on 12/04/21 at 1548
Administer intramuscular if an intravenous route is not available and notify provider when administered. For unintended sedation or respira tory depression if all of the below criteria are met: ~ respiratory rate LESS than or EQUAL to 8. ~ SaO2 less than 92% and or/end-tidal CO2 is greater than 50. ~ the patient i s receiving an opioid, has unintended sedation assessed as RASS (-4) or (-5) and patient is currently not on mechanical ventilation. RASS s chidi (-4) is deep sedation with no respo nse to voice but movement or eye opening to physical stimulation. RASS scale (-5) is unarousable. Patien t Monitoring Once the patient has d emonstrated a response to the naloxone, continue to monitor respiratory rate, depth, oxygen saturation and end-tidal CO2 (if available) every 15 minutes x 2, then every 30 minutes x 2, then every 1 hour x 1 after each naloxone dose. Consider transfer to ICU if patient respiratory parameters have not improved after 4 naloxone doses.
Group 2: ondansetron (ZOFRAN ODT) ODT tab 4 mgJump to med 4 mg, Oral, EVERY 6 HOURS PRN, nausea, v omiting, Starting on 12/04/21 at 1545
This is Step 1 of nausea and vomiting management. If nausea not resolved in 15 minutes, go to Step 2 prochlorperazine (COMPAZINE).&nb sp;With dry hands, peel back foil backing and gently remove tablet. Do not push oral disintegrating tablet through foil backing. Administer immediately on ton jose e and oral disintegrating tablet disso lves in seconds, then swallow with saliva. Liquid not required.
Or ondansetron (ZOFRAN) injection 4 mgJump to med 4 mg, Intravenous, EVERY 6 HOURS PRN, na usea, vomiting, Administer over 2-5 Minutes, Starting on 12/04/21 at 1545
Give IF patient unable to tolerate oral medication. This is Step 1 of nausea and vomiting management. If na usea not resolved in 15 minutes, go to Step 2 prochlorperazine (COMPAZINE). Irritant.
Group 3: prochlorperazine (COMPAZINE) injection 10 mgJump to med 10 mg, Intravenous, EVERY 6 HOURS PRN, n ausea, vomiting, Administer over 1-2 Minutes, Starting on 12/04/21 at 1545
IF patient unable to tolerate oral medication. This is Step 2 of nausea and vomiting management. Give if nausea not resolved 15 minutes after giving ondansetron (ZOFRAN).
Or prochlorperazine (COMPAZINE) tablet 10 mgJump to med 10 mg, Oral, EVERY 6 HOURS PRN, vomiting , Starting on 12/04/21 at 1545
This is Step 2 of nausea and vomiting management. Give if nausea not resolved 15 minutes after giving ondansetron (ZOFRAN).
Or prochlorperazine (COMPAZINE) suppository 25 mgJump to med 25 mg, Rectal, EVERY 12 HOURS PRN, nause a, vomiting, Starting on 12/04/21 at 1545
This is Step 2 of nausea and vomiting management. Give if nausea not resolved 15 minutes after giving ondansetron (ZOFRAN).
documented in this encounter Additional Health Concerns Infection Onset Date Last Indicated Resolved Time MRSA 05/13/2021 05/13/2021 Rule Out C-difficile 12/06/2021 12/06/2021 12/07/2021 8:46 AM CDT documented as of this encounter Care Teams Porcelain Turner Relationship Specialty Start Date End Date Juan Farias, PCP - General Cardiovascular Disease 12/04/21 [address] [place] [id number] Denise Connell Physician Tree Planter Cardiovascular Disease 08/12/21 MARIETTA Watson [address] [place] [id number] Denise Connell Assigned Heart and 08/22/21 01/14/22 MARIETTA Watson Vascular Provider [address] [place] [address]25 documented as of this encounter
--- OUTSIDE RECORDS SUMMARY | 2022-02-12 13:46 | XMS_ITS | Encounter Summary ---
:1960 Author Organization [facility] Address [address] [place] [address] Care Team Providers Name Role Phone Denise Connell PA-C Unavailable [phone] Denise Connell PA-C Unavailable [phone] Juan Farias MD Primary Care Provider Reason for Referral Consultation (Routine: Next available opening) - Pending Review Specialty Diagnoses / Procedures Referred By Contact Refer red To Contact Cardiovascular Disease Diagnoses Essential hypertension Dana Barry PA-C [address] [place] [address] Referral ID Status Reason Start Date Expiration Date Visits V isits Requested Authorized [id number] Pending 01/05/2022 01/05/2023 1 1 Review Consultation (Routine: Next available opening) - Pending Review Specialty Diagnoses / Procedures Referred By Contact Refer red To Contact Cardiovascular Disease Diagnoses Essential hypertension Dana Barry PA-C [address] [place] [address] Referral ID Status Reason Start Date Expiration Date Visits V isits Requested Authorized [id number] Pending 01/05/2022 01/05/2023 1 1 Review Reason for Visit Reason Comments Follow Up Follow up with EAN Huynh for work release form per scheduling [facility] for alcohol gastritis (Routine) - Closed Specialty Diagnoses / Procedures Referred By Contact Refer red To Contact Diagnoses Mixed hyperlipidemia Juan Farias MD [address] [place] [address] Referral ID Status Reason Start Date Expiration Date Visits Requ ested Visits Authorized [id number] Closed 01/30/2020 01/29/2021 1 1 Encounter Details Date Type Department Care Team Description 01/05/2022 Office Visit [facility] Juan Farias MD [address] [place] [id number] Mixed hyperlipidemia; Heart Clinic Dana Barry PA-C [address] [place] [address] Essential hypertension [address] [address] Social History Tobacco Use Types Packs/Day Years [...] Pulse 67 01/05/2022 1:36 PM CDT Temperature - - Respiratory Rate - - Oxygen Saturation 99% 01/05/2022 1:36 PM CDT Inhaled Oxygen Concentration - - Weight 91.2 kg (201 lb) 01/05/2022 1:36 PM CDT Height 172.7 cm (5' 8) 01/05/2022 1:36 PM CDT Body Mass Index 30.56 01/05/2022 1:36 PM CDT documented in this encounter Patient Instructions Patient InstructionsDana Barry PA-C - 01/05/2022 3:15 PM CDT .Thanks for coming into [facility] Heart clinic today. We discussed: our goal blood pressure is less than 130/80. Check your blood pressure about once a day. If you're consistently higher than 130/80 please call and we'll adjust over the phone. Medication changes: increase Toprol XL/ metoprolol succinate to 50 mg once a day. Make sure you're taking 10 mg of amlodipine and if you're not then increase to 10 mg a day. The new pills are 10 mg a day. If you have any issues with the clearance with your company please let me know and we'll figure it out. Follow up: with Krystle Connell PA-C in about a month in [place] for a blood pressure check. We'll have you see Dr. Farias in 6 months. Please call my nurse Mai at Reminder: Please bring in all current medications, over the counter supplements and vitamin bottles to your next appointment. documented in this encounter Progress Notes Dana Barry PA-C - 01/05/2022 3:15 PM CDT [id number] HPI and Plan: See dictation Orders this Visit: Orders Placed This Encounter Procedures ??? Lipid Profile ??? ALT ??? Follow-Up with Cardiology RAN ??? Follow-Up with Cardiology Orders Placed This Encounter Medications ??? magnesium oxide (MAG-OX) 400 MG tablet Sig: Take 400 mg by mouth 2 times daily ??? DISCONTD: amLODIPine (NORVASC) 5 MG tablet Sig: Take 5 mg by mouth daily ??? metoprolol succinate ER (TOPROL XL) 50 MG 24 hr tablet Sig: Take 1 tablet (50 mg) by mouth daily Dispense: 90 tablet Refill: 3 ??? amLODIPine (NORVASC) 10 MG tablet Sig: Take 1 tablet (10 mg) by mouth daily Dispense: 90 tablet Refill: 3 Medications Discontinued During This Encounter Medication Reason ??? metoprolol succinate ER (TOPROL-XL) 25 MG 24 hr tablet ??? amLODIPine (NORVASC) 5 MG tablet ??? amLODIPine (NORVASC) 10 MG tablet Encounter Diagnoses Name Primary? Mixed hyperlipidemia ??? Essential hypertension CURRENT MEDICATIONS: Current Outpatient Medications Medication Sig Dispense Refill ??? acetaminophen (TYLENOL) 325 MG tablet Take 2 tablets (650 mg) by mouth every 4 hours as needed for mild pain, fever or headaches ??? amLODIPine (NORVASC) 10 MG tablet Take 1 tablet (10 mg) by mouth daily 90 tablet 3 ??? aspirin 81 MG tablet Take 81 mg by mouth daily ??? atorvastatin (LIPITOR) 40 MG tablet Take 1 tablet (40 mg) by mouth daily 90 tablet 2 ??? Odpiwfrft-Cirbsvtfqce-Kvb D (OSTEO BI-FLEX ONE PER DAY PO) Take 1 tablet by mouth daily ??? magnesium oxide (MAG-OX) 400 MG tablet Take 400 mg by mouth 2 times daily ??? metoprolol succinate ER (TOPROL XL) 50 MG 24 hr tablet Take 1 tablet (50 mg) by mouth daily 90 tablet 3 ??? MULTI-VITAMIN OR TABS Take 1 tablet by mouth daily ??? omeprazole (PRILOSEC) [address] capsule Take 1 capsule (40 mg) by mouth daily 30 capsule 0 ??? VITAMIN E PO Take 1 tablet by mouth daily ALLERGIES Allergies Allergen Reactions [...] Other Topics Concern ??? Parent/sibling w/ CABG, PR or angioplasty before 65F 55M? No ??? Caffeine Concern Yes Comment: 2 cups daily ??? Weight Concern Yes Comment: need to lose weight ??? Special Diet No ??? Exercise Yes Comment: work ??? Seat Belt Yes Review of Systems: Skin: Negative Eyes: Negative glasses ENT: Negative Respiratory: Negative Cardiovascular: Negative Gastroenterology: Negative Genitourinary: Negative Musculoskeletal: Positive for arthritis Neurologic: Negative Psychiatric: Negative Heme/Lymph/Imm: Negative Endocrine: Negative Physical Exam: Vitals: BP (!) 150/60 Pulse 67 Ht 1.727 m (5' 8) Wt 91.2 kg (201 lb) SpO2 99% BMI 30.56 kg/m?? Please refer to dictation for physical exam Recent Lab Results: all reviewed today CBC RESULTS: Lab Results Component Value Date WBC 6.1 12/07/2021 WBC 6.9 07/03/2009 RBC 3.79 (L) 12/07/2021 RBC 3.35 (L) 07/03/2009 HGB 11.4 (L) 12/07/2021 HGB 10.6 (L) 07/03/2009 HCT 34.7 (L) 12/07/2021 HCT 32.4 (L) 07/03/2009 MCV 92 12/07/2021 MCV 97 07/03/2009 MCH 30.1 12/07/2021 MCH 31.6 07/03/2009 MCHC 32.9 12/07/2021 MCHC 32.7 07/03/2009 RDW 13.4 12/07/2021 RDW 15.2 (H) 07/03/2009 PLT 141 (L) 12/07/2021 PLT 287 07/05/2009 BMP RESULTS: Lab Results Component Value Date NA 135 (L) 12/07/2021 NA 134 02/21/2020 POTASSIUM 3.8 2021 POTASSIUM 4.1 08/13/2021 POTASSIUM 3.4 02/21/2020 CHLORIDE 93 (L) 12/07/2021 CHLORIDE 104 08/13/2021 CHLORIDE 100 02/21/2020 CO2 33 (H) 12/07/2021 CO2 26 08/13/2021 CO2 26 02/21/2020 ANIONGAP 9 12/07/2021 ANIONGAP 6 08/13/2021 ANIONGAP 8 02/21/2020 GLC 132 (H) 12/07/2021 GLC 123 (H) 08/13/2021 GLC 95 02/21/2020 BUN 3.7 (L) 12/07/2021 BUN 12 08/13/2021 BUN 13 02/21/2020 CR 0.76 12/07/2021 CR 1.04 02/21/2020 GFRESTIMATED >90 12/07/2021 GFRESTIMATED 79 02/21/2020 GFRESTBLACK >90 02/21/2020 BRIAN 8.2 (L) 12/07/2021 BRIAN 8.8 02/21/2020 INR RESULTS: Lab Results Component Value Date INR 0.95 07/01/2009 INR 1.19 (H) 03/14/2009 CC Juan Farias MD [address] [facility] [address] [address] [place] [address] Dana Barry PA-C - 01/05/2022 2:52 PM CDT Service Date: 01/05/2022 PRIMARY INSTRUCTIONAL TECHNOLOGY COORDINATOR: Juan Farias MD REASON FOR VISIT: Hypertension. HISTORY OF PRESENT ILLNESS: Mr. Brown is a delightful 61-year-old gentleman we follow for hyperlipidemia as well as hypertension. He also has a past medical history significant for alcoholism with recent admission for acute pancreatitis. 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 Unfortunately, there he tested at 170/100 with second reading 162/93. For him to retest, this requires paperwork from us. He tells me that at home his best blood pressures are 135/90 and he is often in the 120s or 150s. Today, he states he feels great and has recovered well from his pancreatitis. He has been able to quit drinking. He denies chest pain, shortness of breath, orthopnea or PND. Of note, he had esophagitiswhile he was hospitalized and did have some chest discomfort. This is now resolved. SOCIAL HISTORY: He has done AA and other treatment paths in the past. At this time, he just wants toquit on his own. They helped him through withdrawal symptoms while he was in the hospital. He is a lifelong nonsmoker. Planning on working in a factory for [employer]. PHYSICAL EXAMINATION: GENERAL: Well-developed, well-nourished gentleman in no acute distress. HEENT: Normocephalic, atraumatic. HEART: Regular rate and rhythm. I do not appreciate murmur, rub or gallop. LUNGS: Clear, without wheezes, rales, or rhonchi. EXTREMITIES: Without peripheral edema. SKIN: Warm and dry. ASSESSMENT AND PLAN: 1. Hypertension, uncontrolled. Hopefully, will improve with the patient off ETOH. That being said, he needs to achieve a goal of 130/80 for his health and less than 155/95 for him to pass his work testing. He is unclear if he is on 5 mg or 10 mg of amlodipine at home. I am going to have him take 10 mga day. If he is not on that, the new prescription will be for [address], we will go up on his Toprol to 50 mg a day. As he is still hypertensive, we may need to go up to 100 mg. I would expect these changes did show results in the next 4 or 5 days. He is not under 130/80 on Monday, I would like him to give us a call and the plan will be to increase to 100 mg of Toprol daily. He has a history of renal failure and hyperkalemia with lisinopril, so we will avoid that. Could consider ARB down theroad, but I would like to avoid that as well. Ideally, we will keep him on once a day medications for compliance. 2. Hyperlipidemia, reasonable control given risk factors with last LDL 86, HDL 50, total [id number]. 3. Recent acute pancreatitis, resolved per primary care provider. Thank you for allowing me to participate in this patient's care. I completed the paperwork for his employer and I would be happy to work with him to get his blood pressure to goal. To make sure that happens, we will have him follow up in 1 month with Ms. Connell in [place] where he typically sees her and will work on getting him back in with his primary doctor, Dr. Farias, in the spring. Dana Barry PA-C MT: JOELLE Name: ELIJAH BROWN Account: [id number] : 1960 Service Date: 01/05/2022 Document: [id number] documented in this encounter Plan of Treatment Scheduled Orders Name Type Priority Associated Diagnoses Order S chedule Lipid Profile Lab Routine Mixed hyperlipidemia Expect ed: 07/04/2022 (Approximate), Expires: 2022 ALT Lab Routine Mixed hyperlipidemia Expecte d: 07/04/2022 (Approximate), Expires: 2022 Scheduled Referrals Name Type Priority Associated Diagnoses Order S chedule Follow-Up with Referral Routine: Next Essential Expected: Cardiology RAN available opening hypertension 02/05/20 (Approximate), Expires: 01/05/2023 Follow-Up with Referral Routine: Next Essential Expected: Cardiology available opening hypertension 07/05/2022 (Approximate), Expires: 01/05/2023 documented as of this encounter Visit Diagnoses Diagnosis Mixed hyperlipidemia Essential hypertension Unspecified essential hypertension documented in this encounter Additional Health Concerns Infection Onset Date Last Indicated Resolved Time MRSA 05/13/2021 05/13/2021 documented as of this encounter Care Teams Manager General Relationship Specialty Start Date End Date Juan Farias, PCP - General Cardiovascular Disease 12/04/21 [address] [place] [id number] Denise Connell Physician Manager Safe Cardiovascular Disease 08/12/21 MARIETTA Watson [address] [place] [address] Denise Connell Assigned Heart and 08/22/21 01/14/22 MARIETTA Watson Vascular Provider [address] [place] [address] documented as of this encounter
[2022-02-12 13:47] LABS: Bilirubin Direct* 0.2 mg/dL (0.0-0.5); Bilirubin Total* 0.9 mg/dL (0.1-1.5); Carbon Dioxide* 21 mmol/L (20-32); Creatinine* 1.4 mg/dL (0.5-1.5); Est. Creatinine Clearance* 58.66; Estimated Glomerular Filt Rate 58 ml/min; Total Protein* 8.2 g/dL (6.0-8.3)
--- OUTSIDE RECORDS SUMMARY | 2022-02-12 13:47 | XMS_ITS | Encounter Summary ---
:1960 Author Organization [facility] Address [address] [place] [address] Care Team Providers Name Role Phone No Ref-Primary, Physician Primary Care Provider [phone] Juan Farias MD Unavailable Reason for Visit Reason Onset Date Comments Refill Request 03/23/2020 amlodipine Encounter Details Date Type Department Care Team Description 03/23/2020 Refill M [facility] Heart Juan Farias, Refill Request Clinic Idris HERBERT (amlodipine) [address] [place] [address] [address] [place] [address] [place] [address]405 (Wo rk) Social History Tobacco Use Types Packs/Day Years Used Date Smoking Tobacco: Never Smokeless Tobacco: Never Alcohol Use Standard Drinks/Week Comments No 0 (1 standard drink = 0.6 oz pure alcoho l) quit 5 years ago Sex Assigned at Date Recorded Not on file COVID-19 Exposure Response Date Recorded In the last month, have you been in contact with No / Unsure 03/11/2020 2:39 PM SENIOR MILITARY ANALYST someone who was confirmed or suspected to have Coronavirus / COVID-19? documented as of this encounter Plan of Treatment Not on filedocumented as of this encounter Visit Diagnoses Diagnosis Essential hypertension Unspecified essential hypertension documented in this encounter Additional Health Concerns Infection Onset Date Last Indicated Resolved Time MRSA-Contact IsolationComment: 0 04/26/2021 11:03 AM SENIOR MILITARY ANALYST Infection 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 Care Teams Sand Worker Relationship Specialty Start Date End Date No Ref-Primary, Physician PCP - General 07/03/14 12/03/21 Juan Farias MD Assigned Heart and Vascular 10/23/20 6/12 /21 [address] Provider [place] [id number] documented as of this encounter
--- OUTSIDE RECORDS SUMMARY | 2022-02-12 13:47 | XMS_ITS | Encounter Summary ---
:1960 Author Organization [facility] Address [address] [place] [address] Care Team Providers Name Role Phone No Ref-Primary, Physician Primary Care Provider [phone] Juan Farias MD Unavailable Reason for Visit Reason Onset Date Comments Refill Request 05/12/2021 amlodipine Encounter Details Date Type Department Care Team Description 05/12/2021 Refill M [facility] Heart Juan Farias, Refill Request Clinic Annika HERBERT (amlodipine) [address] [address] [place] [address] [place] [id number] (Wo rk) Social History Tobacco Use Types [...] Unspecified essential hypertension documented in this encounter Care Teams Solder Making Laborer Relationship Specialty Start Date End Date No Ref-Primary, Physician PCP - General 07/03/14 12/03/21 Juan Farias MD Assigned Heart and Vascular 04/04/21 [address] Provider [place] [id number] documented as of this encounter
--- OUTSIDE RECORDS SUMMARY | 2022-02-12 13:47 | XMS_ITS | Encounter Summary ---
:1960 Author Organization [facility] Address [address] [place] [address] Care Team Providers Name Role Phone No Ref-Primary, Physician Primary Care Provider [phone] Juan Farias MD Unavailable Reason for Visit Reason Onset Date Comments Clinic Care Coordination - Follow-up 06/30/2021 Encounter Details Date Type Department Care Team Description 06/30/2021 Telephone [facility] [place] Care Coordination Clinic Annika Bell RN - Follow-up [address] [facility] [address] [place] [address] Social History Tobacco Use Types Packs/Day Years Used Date Smoking Tobacco: Never Smokeless Tobacco: Never Alcohol Use Standard Drinks/Week Comments No 0 (1 standard drink = 0.6 oz pure alcoho l) quit 5 years ago Sex Assigned at Date Recorded Not on file documented as of this encounter Miscellaneous Notes Telephone Encounter - Arabella Madrid RN - 06/30/2021 10:33 AM CST Call out to pt re: refill request for atorvastatin refill does not meed refill guidelines d/t pt hasnot been seen in the past year by Dr. Farias. Juan Pablo said he has no symptoms or concerns to address today. States he's been feeling fine. I let him know that Dr. Farias's schedule is currently full, but asked him to call around 07/23 when his October schedule opens so that he can get an appt setup to see him. Pt agrees. Provided scheduling phone number. Informed pt that a final 90 day supply with 1 refill will be sent to get him through October. Pt verbalized understanding. Arabella Madrid RN on 06/30/2021 at 10:50 AM SSION LIAISON documented in this encounter Plan of Treatment Not on filedocumented as of this encounter Visit Diagnoses Not on filedocumented in this encounter Additional Health Concerns Infection Onset Date Last Indicated Resolved Time MRSA 05/13/2021 05/13/2021 documented as of this encounter Care Teams Residential Pest Control Technician Relationship Specialty Start Date End Date No Ref-Primary, Physician PCP - General 07/03/14 12/03/21 Juan Farias MD Assigned Heart and Vascular 04/04/21 [address] Provider [place] [id number] documented as of this encounter
--- OUTSIDE RECORDS SUMMARY | 2022-02-12 13:47 | XMS_ITS | Encounter Summary ---
:1960 Author Organization [facility] Address [address] [place] [address] Care Team Providers Name Role Phone No Ref-Primary, Physician Primary Care Provider [phone] Reason for Visit Reason Onset Date Comments Refill Request 04/23/2019 Amlodipine 10mg Encounter Details Date Type Department Care Team Description 04/23/2019 Refill M [facility] Heart [place], Juan Alegre, Refill Request Clinic Annika HERBERT (Amlodipine 10mg) [address] [facility] [address] [facility] [address] [place] [address] [place] [id number] ([facility]) Social History Tobacco Use Types Packs/Day Years [...] Time MRSA-Contact IsolationComment: 0 04/26/2021 11:03 AM GUEST RELATIONS COORDINATOR Infection 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 Care Teams Sports Cartoonist Relationship Specialty Start Date End Date No Ref-Primary, Physician PCP - General 07/03/14 12/03/21 documented as of this encounter
--- OUTSIDE RECORDS SUMMARY | 2022-02-12 13:47 | XMS_ITS | Encounter Summary ---
:1960 Author Organization [place] Address [address] [place] [address] Care Team Providers Name Role Phone No Ref-Primary, Physician Primary Care Provider [phone] Denise Connell PA-C Unavailable [phone] Encounter Details Date Type Department Care Team Description 08/13/2021 Lab [facility] Mix[facility] d hyperlipidemia; [facility] [place] Essential hypertension; [address] diabetes mellitus without complication, without long-term current use of insulin (H) [address] [place] [address] Social History Tobacco Use Types Packs/Day Years Used Date Smoking Tobacco: Never Smokeless Tobacco: Never Alcohol Use Standard Drinks/Week Comments No 0 (1 standard drink = 0.6 oz pure alcoho l) quit 5 years ago Sex Assigned at Date Recorded Not on file COVID-19 Exposure Response Date Recorded In the last 10 days, have you been in contact with No / Unsu re 08/13/2021 7:45 AM CDT someone who was confirmed or suspected to have Coronavirus/COVID-19? documented as of this encounter Plan of Treatment Not on filedocumented as of this encounter Procedures Procedure Name Priority Date/Time Associated Diagnosis Comme nts LIPID PROFILE Routine 08/13/2021 7:57 AM Mixed hyperlipidemia Results for this CDT procedure are i n the results section. HEMOGLOBIN A1C Routine 08/13/2021 7:57 AM Type 2 diabetes Resu lts for this CDT mellitus without procedure a re in complication, without the re sults long-term current use sectio n. of insulin (H) ALT Routine 08/13/2021 7:57 AM Mixed hyperlipidemia R esults for this CDT procedure are i n the results section. BASIC METABOLIC Routine 08/13/2021 7:57 AM Essential hypertens ion Results for this PANEL CDT procedure are i n the results section. documented in this encounter Results Hemoglobin A1c (08/13/2021 7:57 AM CDT) P athologist Signature Hemoglobin A1C 5.6 0.0 - 5.6 08/13/2021 [facility] % 9:12 AM CDT Comment: Normal <5.7% Prediabetes 5.7-6.4% ?? Diabetes 6.5% or higher Note: Adopted from ADA consensus guideli grace. Specimen Anatomical Collection Method / Collection Time Recei rehana Time (Source) Location / Volume Laterality Blood STRUCTURE OF RIGHT Venipuncture / 08/13/2021 7:57 07/24 7:58 HAND / Unknown Unknown AM CDT AM CDT Juan Farias MD LAB - BLOOD ORDERABLES Performing Organization Address City/State/ZIP Code [place] [address] Care Lab [address] Lab (1st floor, no room number) (ABNORMAL) Basic metabolic panel (08/13/2021 7:57 AM CDT) Analysis Performed At Patho logist Time Signature Sodium 136 133 - 144 08/13/2021 [facility] mmol/L 9:08 AM CDT Potassium 4.1 3.4 - 5.3 08/13/2021 LABORATORY mmol/L 9:08 AM CDT Chloride 104 94 - 109 08/13/2021 [facility] mmol/L 9:08 AM CDT Carbon Dioxide 26 20 - 32 08/13/2021 LAB[facility]ORY (CO2) mmol/L 9:08 AM CDT Anion Gap 6 3 - 14 08/13/2021 [facility] mmol/L 9:08 AM CDT Urea Nitrogen 12 7 - 30 08/13/2021 LAB[facility]ORY mg/dL 9:08 AM CDT Creatinine 0.81 0.66 - 08/13/2021 [facility] 1.25 mg/dL 9:08 AM CDT Calcium 9.2 8.5 - 10.1 08/13/2021 [facility] mg/dL 9:08 AM CDT Glucose 123 (H) 70 - 99 08/13/2021 [facility] mg/dL 9:08 AM CDT GFR Estimate >90 >60 08/13/2021 [facility] mL/min/1.7 9:08 AM CDT 3m2 Comment: Effective April 13, 2021 eGF Rcr in adults is calculated using the 2020 CKD-EPI creatinine equation which includ es age and gender (Yuli et al., [place], DOI: 10.1056/SUBJbr6083268) Specimen Anatomical Collection Method / Collection Time Recei rehana Time (Source) Location / Volume Laterality Blood STRUCTURE OF RIGHT Venipuncture / 08/13/2021 7:57 07/24 7:58 HAND / Unknown Unknown AM CDT AM CDT Juan Farias MD LAB - BLOOD ORDERABLES Performing Organization Address City/[facility]/[place] [address] Care Lab [address] Lab (1st floor, no room number) ALT (08/13/2021 7:57 AM CDT) P athologist Signature ALT 53 0 - 70 U/L 08/13/2021 9:08 [facility] AM CDT Specimen Anatomical Collection Method / Collection Time Recei rehana Time (Source) Location / Volume Laterality Blood STRUCTURE OF RIGHT Venipuncture / 08/13/2021 7:57 07/24 7:58 HAND / Unknown Unknown AM CDT AM CDT Juan Farias MD LAB - BLOOD ORDERABLES Performing Organization Address City/[facility]/[place] [address] Care Lab [address] Lab (1st floor, no room number) Lipid Profile (08/13/2021 7:57 AM CDT) Patholo gist Method Time Signature Cholesterol 164 <200 mg/dL 08/13/2021 [facility] 9:09 AM CDT Triglycerides 139 <150 mg/dL 08/13/2021 [facility] 9:09 AM CDT Direct Measure HDL 50 >=40 mg/dL 08/13/2021 [facility] 9:09 AM CDT LDL Cholesterol 86 <=100 08/13/2021 [facility] Calculated mg/dL 9:09 AM CDT Non HDL 114 <130 mg/dL 08/13/2021 [facility] Cholesterol 9:09 AM CDT Patient Fasting > Yes 08/13/2021 [facility] RY 8hrs? 9:09 AM CDT Specimen Anatomical Collection Method / Collection Time Recei rehana Time (Source) Location / Volume Laterality Blood STRUCTURE OF RIGHT Venipuncture / 08/13/2021 7:57 07/24 7:58 HAND / Unknown Unknown AM CDT AM CDT Narrative [facility] - 08/13/2021 9:09 AM CDT Cholesterol Desirable: ??<200 mg/dL Triglycerides Normal: ??Less than 150 mg/dL Borderline High: ??150-199 mg/dL High: ??200-499 mg/dL Very High: ??Greater than or equal to 50 0 mg/dL Direct Measure HDL Female: ??Greater than or equal to 50 mg /dL Male: ??Greater than or equal to 40 mg/d L LDL Cholesterol Desirable: ??<100mg/dL Above Desirable: ??100-129 mg/dL Borderline High: ??130-159 mg/dL High: ??160-189 mg/dL Very High: ??>= 190 mg/dL Non HDL Cholesterol Desirable: ??130 mg/dL Above Desirable: ??130-159 mg/dL Borderline High: ??160-189 mg/dL High: ??190-219 mg/dL Very High: ??Greater than or equal to 22 0 mg/dL Juan Farias MD LAB - BLOOD ORDERABLES Performing Organization Address City/State/ZIP Code [place] [phone] Care Lab [address] Lab (1st floor, no room number) documented in this encounter Visit Diagnoses Diagnosis Mixed hyperlipidemia Essential hypertension Unspecified essential hypertension Type 2 diabetes mellitus without complic ation, without long-term current use of insulin (H) documented in this encounter Additional Health Concerns Infection Onset Date Last Indicated Resolved Time 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
--- OUTSIDE RECORDS SUMMARY | 2022-02-12 13:47 | XMS_ITS | Encounter Summary ---
:1960 Author Organization [place] Address [address] [place] [address]. [place] [address] Care Team Providers Name Role Phone No Ref-Primary, Physician Primary Care Provider [phone] Reason for Visit Reason Comments Annual Visit FU Cardiac testing lab Encounter Details Date Type Department Care Team Description 11/29/2018 Office Visit [facility] Feliz Roy Hyperlipid emia LDL goal <100 (Primary Dx); Heart Clinic Annika Alegre MD Essential hypertension; [address] [facility] Elev ed fasting glucose [address] [place] [id number] [place] [id number] Social History Tobacco Use Types Packs/Day Years Used Date Smoking Tobacco: Never Smokeless Tobacco: Never Alcohol Use Standard Drinks/Week Comments No 0 (1 standard drink = 0.6 oz pure alcoho l) quit 5 years ago Sex Assigned at Date Recorded Not on file documented as of this encounter Last Filed Vital Signs Vital Sign Reading Time Taken Comments Blood Pressure 128/80 11/29/2018 11:27 AM CDT Pulse 60 11/29/2018 11:27 AM CDT Temperature - - Respiratory Rate - - Oxygen Saturation - - Inhaled Oxygen Concentration - - Weight 89.2 kg (196 lb 9.6 oz) 11/29/2018 11:27 AM CDT Height 172.7 cm (5' 7.99) 11/29/2018 11:27 AM CDT Body Mass Index 29.9 11/29/2018 11:27 AM CDT documented in this encounter Progress Notes Feliz Roy MD - 11/29/2018 11:57 AM CDT Service Date: 11/29/2018 HISTORY OF PRESENT ILLNESS: I had the opportunity to see Mr. Marcelino Brown in Cardiology Clinic today at the [facility] in [place] for reevaluation of hypertension and dyslipidemia. In the past, he had an elevated hemoglobin A1c in 2006, but was drinking alcohol excessively at that time and was overweight. Since then, he stopped alcohol use and has had significant weight loss with a better diet and more activity. He had a hemoglobin A1c of 6.1 last year and it is the same this year. He does have a family history of type 2 diabetes which puts him at risk. We have also been managing his cholesterol. His cholesterol numbers this year are excellent with an LDL down to 72, HDL 43 and triglycerides 152. His blood pressure has also been well controlled. In 2017, he developed hyperkalemia with a potassium of 5.2 and elevated creatinine to 1.57 due to lisinopril. After stopping that medication and using amlodipine instead, his blood pressures have remained under good control and his creatinine and potassium levels have normalized. He is not having any side effects from his medications. He continues on atorvastatin 40 mg daily for his cholesterol. However, I think the most important changes are his diet and weight loss. He is down almost 25 pounds in the last 3 years. PHYSICAL EXAMINATION: His blood pressure is 128/80, heart rate 60 and weight 196 pounds. His lungs are clear. His heart rhythm is regular. I hear no cardiac murmurs or carotid bruits. IMPRESSIONS: Mr. Marcelino Brown is a 57-year-old gentleman with borderline type 2 diabetes which iswell controlled with diet alone. He has hypertension and dyslipidemia, which are well controlled on medical therapy. He is feeling well and has no concerning cardiac symptoms. I will plan on having himfollow up with me again next year for reevaluation of his cardiac risk factors for primary prevention of coronary artery disease. FELIZ ROY MD, [facility] MT: JOELLE Name: ELIJAH BROWN MRN: [id number] Account: [id number] : 1960 Service Date: 11/29/2018 Document: [id number] Feliz Roy MD - 11/29/2018 11:15 AM CDT HPI and Plan: See dictation Orders Placed This Encounter Procedures ??? Basic metabolic panel ??? Lipid Profile ??? ALT ??? Hemoglobin A1c ??? Follow-Up with District Recruiter No orders of the defined types were placed in this encounter. There are no discontinued medications. Encounter Diagnoses Name Primary? ? ? Hyperlipidemia LDL goal <100 Yes ??? Essential hypertension ??? Elevated fasting glucose CURRENT MEDICATIONS: Current Outpatient Medications Medication Sig Dispense Refill ??? amLODIPine (NORVASC) 10 MG tablet Take 1 tablet (10 mg) by mouth daily 90 tablet 3 ??? aspirin 81 MG tablet Take 81 mg by mouth daily ??? atorvastatin (LIPITOR) 40 MG tablet Take 1 tablet (40 mg) by mouth daily 90 tablet 3 ??? MAGNESIUM CR OR None Entered ??? MULTI-VITAMIN OR TABS 1 tablet daily ??? omeprazole (PRILOSEC) 40 MG capsule Take 40 mg by mouth daily ALLERGIES Allergies Allergen Reactions ??? Lisinopril Kidney dysfunction and hyperkalemia PAST MEDICAL HISTORY: Past Medical History: Diagnosis Date ??? Anemia, unspecified ??? Gout 5-2009 left first MTP ??? Other and unspecified hyperlipidemia ??? Unspecified [...] education: None ??? Highest education level: None Occupational History ??? None Social Needs ??? Financial resource strain: None ??? Food insecurity: Worry: None Inability: None ??? Transportation needs: Medical: None Non-medical: None Tobacco Use ??? Smoking status: Never Smoker ??? Smokeless tobacco: Never Used Substance and Sexual Activity ??? Alcohol use: No Comment: quit 5 years ago ??? Drug use: No ??? Sexual activity: None Lifestyle ??? Physical activity: Days per week: None Minutes per session: None ??? Stress: None Relationships ??? Social connections: Talks on phone: None Gets together: None Attends confucianist service: None Active member of club or organization: None Attends meetings of clubs or organizations: None Relationship status: None ??? Intimate partner violence: Fear of current or ex partner: None Emotionally abused: None Physically abused: None Forced sexual activity: None Other Topics Concern ??? Parent/sibling w/ CABG, MA or angioplasty before 65F 55M? No ??? Service Not Asked ??? Blood Transfusions Not Asked ??? Caffeine Concern Yes Comment: 2 cups daily ??? Occupational Exposure Not Asked ??? Hobby Hazards Not Asked ??? Sleep Concern Not Asked ??? Stress Concern Not Asked ??? Weight Concern Yes Comment: need to lose weight ??? Special Diet No ??? Back Care Not Asked ??? Exercise Yes Comment: work ??? Bike Helmet Not Asked ??? Seat Belt Yes ??? Self-Exams Not Asked Social History Narrative ??? None Review of Systems: Skin: Negative Eyes: Positive for glasses ENT: Negative Respiratory: Negative Cardiovascular: Negative Gastroenterology: Negative Genitourinary: Negative Musculoskeletal: Positive for arthritis Neurologic: Negative Psychiatric: Negative Heme/Lymph/Imm: Positive for allergies ragweed Endocrine: Negative Physical Exam: Vitals: BP 128/80 Pulse 60 Ht 1.727 m (5' 7.99) Wt 89.2 kg (196 lb 9.6 oz) BMI 29.90 kg/m?? Constitutional: cooperative, alert and oriented, well developed, well nourished, in no acute distress Skin: warm and dry to the touch, no apparent skin lesions or masses noted Head: normocephalic, no masses or lesions Eyes: pupils equal and round, conjunctivae and lids unremarkable, sclera white, no xanthalasma, EOMSintact, no nystagmus Lymph: ENT: no pallor or cyanosis, dentition good Neck: carotid pulses are full and equal bilaterally, JVP normal, no carotid bruit Respiratory: normal breath sounds, clear to auscultation, normal A-P diameter, normal symmetry, normal respiratory excursion, no use of accessory muscles Cardiac: regular rhythm, normal S1/S2, no S3 or S4, apical impulse not displaced, no murmurs, gallops or rubs pulses full and equal, no bruits auscultated GI: abdomen soft;BS normoactive Extremities and Muscular Skeletal: no deformities, clubbing, cyanosis, erythema observed;no edema Neurological: no gross motor deficits;affect appropriate Psych: Alert and Oriented x 3 CC No referring provider defined for this encounter. documented in this encounter Plan of Treatment Not on filedocumented as of this encounter Results (ABNORMAL) Hemoglobin A1c (01/27/2020 2:58 PM CDT) athologist Signature Hemoglobin A1C 5.7 (H) 0 - 5.6 % 01/27/2020 [place] 4:00 PM CDT [facility] Comment: Normal <5.7% Prediabetes 5.7-6.4% ??Diab etes 6.5% or higher - adopted from ADA consensus guidelines. Specimen Anatomical Collection Method Collection Time Receive d Time (Source) Location / / Volume Laterality Blood specimen 01/27/2020 2:58 PM 020 3:03 (specimen) CDT PM CDT Feliz Roy MD LAB - BLOOD ORDERABLES Performing Organization Address City/State/ZIP Code Phon e Number M [facility] [address] [place] [address] [facility] [address] [place] [address], [place] [phone] ALT (01/27/2020 2:58 PM CDT) athologist Signature ALT 46 0 - 70 U/L 01/27/2020 [facility] 3:54 PM CDT HOSPITAL Specimen Anatomical Collection Method Collection Time Receive d Time (Source) Location / / Volume Laterality Blood specimen 01/27/2020 2:58 PM 020 3:03 (specimen) CDT PM CDT Feliz Roy MD LAB - BLOOD ORDERABLES Performing Organization Address City/State/ZIP Code Phon e Number M [facility] [address], [place] [address] [facility] [address] [place], [place] [address], [facility] [phone] (ABNORMAL) Lipid Profile (01/27/2020 2:58 PM CDT) athologist Signature Cholesterol 222 (H) <200 mg/dL 01/27/2020 [place] 3:54 PM [facility] Comment: Desirable: <200 mg/dl Triglycerides 99 <150 mg/dL 01/27/2020 3:54 PM CDT [facility] Comment: Fasting specimen HDL Cholesterol 87 >39 mg/dL 01/27/2020 3:54 PM [facility] LDL Cholesterol 115 (H) <100 mg/dL 01/27/2020 3:54 PM [facility] Comment: Above desirable: ??100-129 mg/dl Borderline High: ??130-159 mg/dL High: ? 160-189 mg/dL Very high: ? >189 mg/dl Non HDL Cholesterol 135 (H) <130 mg/dL 01/27/2020 3:54 PM CDT [facility] Comment: Above Desirable: ??130-159 mg/dl Borderline high: ??160-189 mg/dl High: ? 190-219 mg/dl Very high: ? >219 mg/dl Specimen Anatomical Collection Method Collection Time Receive d Time (Source) Location / / Volume Laterality Blood specimen 01/27/2020 2:58 PM 020 3:03 (specimen) CDT PM CDT Feliz Roy MD LAB - BLOOD ORDERABLES Performing Organization Address City/State/ZIP Code Phon e Number M [facility] [address] [place] [address] [facility] [address] [place] [address], [facility] [phone] Basic metabolic panel (01/27/2020 2:58 PM CDT) athologist Signature Sodium 133 133 - 144 01/27/2020 [place] mmol/L 3:46 PM [facility] Potassium 3.7 3.4 - 5.3 01/27/2020 [place] mmol/L 3:46 PM [facility] Chloride 101 94 - 109 01/27/2020 [place] mmol/L 3:46 PM [facility] Carbon Dioxide 24 20 - 32 01/27/2020 [place] mmol/L 3:54 PM [facility] Anion Gap 8 3 - 14 01/27/2020 [place] mmol/L 3:54 PM [facility] Glucose 85 70 - 99 01/27/2020 [place] mg/dL 3:54 PM [facility] Comment: Fasting specimen Urea Nitrogen 13 7 - 30 mg/dL 01/27/2020 3:54 PM [facility] Creatinine 1.10 0.66 - 1.25 mg/dL 01/27/2020 3:54 PM [facility] GFR Estimate 74 >60 01/27/2020 3:54 PM [facility] mL/min/{1.73_m2} HOSPITAL Comment: Non GFR Calc Starting 04/10/2018, serum creatinine ba sed estimated GFR (eGFR) will be calculated using the Chronic Kidney Dise page hospital Epidemiology Collaboration (CKD-EPI) equation. GFR Estimate If 86 >60 mL/min/{1.73_m2} 01/27/2020 3: 54 PM [facility] Comment: GFR Calc Starting 04/10/2018, serum creatinine ba sed estimated GFR (eGFR) will be calculated using the Chronic Kidney Dise page hospital Epidemiology Collaboration (CKD-EPI) equation. Calcium 8.8 8.5 - 10.1 mg/dL 01/27/2020 3:54 PM [facility] Specimen Anatomical Collection Method Collection Time Receive d Time (Source) Location / / Volume Laterality Blood specimen 01/27/2020 2:58 PM 020 3:03 (specimen) CDT PM CDT Feliz Roy MD LAB - BLOOD ORDERABLES Performing Organization Address City/State/ZIP Code Phon e Number M [facility] [address], [place] [address] [facility] [address] [phone] documented in this encounter Visit Diagnoses Diagnosis Hyperlipidemia LDL goal <100 - Primary Other and unspecified hyperlipidemia Essential hypertension Unspecified essential hypertension Elevated fasting glucose Impaired fasting glucose documented in this encounter Additional Health Concerns Infection Onset Date Last Indicated Resolved Time MRSA-Contact IsolationComment: 0 04/26/2021 11:03 AM PUMP INSTALLATION AND SERVICER Infection 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 Care Teams Jr. Systems Administrator Relationship Specialty Start Date End Date No Ref-Primary, Physician PCP - General 07/03/14 12/03/21 documented as of this encounter
--- OUTSIDE RECORDS SUMMARY | 2022-02-12 13:47 | XMS_ITS | Encounter Summary ---
:1960 Author Organization [place] Address [address] [place] [address] Care Team Providers Name Role Phone No Ref-Primary, Physician Primary Care Provider [phone] Denise Connell PA-C Unavailable [phone] Encounter Details Date Type Department Care Team Description 08/12/2021 Travel Social History Tobacco Use Types Packs/Day [...] in contact with No / Unsu re 08/12/2021 9:24 AM CDT someone who was confirmed or suspected to have Coronavirus/COVID-19? documented as of this encounter Plan of Treatment Not on filedocumented as of this encounter Visit Diagnoses Not on filedocumented in this encounter Additional Health Concerns Infection Onset Date Last Indicated Resolved Time MRSA 05/13/2021 05/13/2021 documented as of this encounter Care Teams Black Pickler Relationship Specialty Start Date End Date No Ref-Primary, PCP - General 07/03/14 12/03/21 Physician Denise Connell Physician Butcher Helper Cardiovascular Disease 08/12/21 MARIETTA Watson [address] [facility] [address] [place] [address] documented as of this encounter
--- OUTSIDE RECORDS SUMMARY | 2022-02-12 13:47 | XMS_ITS | Encounter Summary ---
:1960 Author Organization [facility] Address [address] [place] [address] Care Team Providers Name Role Phone No Ref-Primary, Physician Primary Care Provider [phone] Juan Farias MD Unavailable Reason for Referral Diagnostic Imaging Ultrasound (Routine) - Closed Specialty Diagnoses / Procedures Referred By Contact Refer red To Contact Radiology. Diagnoses Essential hypertension Edilia Trejo Ultrasound [facility] Procedures US Renal Complete w Doppler Complete ROOSEVELT Chapman CNP [address] NO INFO AVAILABLE [address] 02/10/2022 [place] [address] Phone: Fax: Referral ID Status Reason Start Date Expiration Date Visits Requ ested Visits Authorized [id number] Closed 02/05/2020 02/04/2021 1 1 Reason for Visit Diagnostic Imaging Ultrasound (Routine) - Closed Specialty Diagnoses / Procedures Referred By Contact Refer red To Contact Radiology. Diagnoses Essential hypertension Edilia Trejo Ultrasound Rs[facility] Procedures US Renal Complete w Doppler Complete ROOSEVELT Chapman WELDING MACHINE OPERATOR ULTRASONIC [address] NO INFO AVAILABLE [address] 02/10/2022 [place] [address] Phone: Fax: Referral ID Status Reason Start Date Expiration Date Visits Requ ested Visits Authorized [id number] Closed 02/05/2020 02/04/2021 1 1 Encounter Details Date Type Department Care Team Description 02/14[facility]2020 [facility] Edilia Chapman APRN [facility] Imaging WELDING MACHINE OPERATOR ULTRASONIC [address] AVAILABLE [place], [place] 02/10/2022 [address] Social History Tobacco Use Types Packs/Day Years Used Date Smoking Tobacco: Never Smokeless Tobacco: Never Alcohol Use Standard Drinks/Week Comments No 0 (1 standard drink = 0.6 oz pure alcoho l) quit 5 years ago Sex Assigned at Date Recorded Not on file COVID-19 Exposure Response Date Recorded In the last month, have you been in contact with No / Unsure 02/14/2020 2:48 PM CDT someone who was confirmed or suspected to have Coronavirus / COVID-19? documented as of this encounter Medications at Time of Discharge Medication Sig Dispensed Refills Start Date End Date aspirin 81 MG tablet Take 81 mg by 0 mouth daily Uspsnyetb-Fllkxdeiqdx-Qdt D Take 1 tablet by 0 (OSTEO BI-FLEX ONE PER DAY mouth daily PO) MULTI-VITAMIN OR Take 1 tablet by 0 TABSIndications: Hemorrhage mouth daily of gastrointestinal tract, unspecified VITAMIN E PO Take 1 tablet by 0 mouth daily amLODIPine (NORVASC) 10 MG Take 1 tablet (10 90 tablet 0 03/23/2020 tabletIndications: mg) by mouth daily Essential hypertension atorvastatin (LIPITOR) 40 Take 1 tablet (40 90 tablet 0 03/12/2020 MG tabletIndications: Mixed mg) by mouth daily hyperlipidemia indapamide (LOZOL) 1.25 MG Take 1 tablet 30 tablet 3 201902/24/2020 tabletIndications: (1.25 mg) by mouth Essential hypertension every morning MAGNESIUM CR ORIndications: None Entered 0 12/04/2021 Anemia, unspecified omeprazole (PRILOSEC) 20 MG Take 20 mg by [address] capsule mouth daily documented as of this encounter Plan of Treatment Not on filedocumented as of this encounter Procedures Procedure Name Priority Date/Time Associated Diagnosis Comme nts US RENAL COMPLETE Routine 02/14/2020 3:42 PM Essential Resu lts for this WITH DOPPLER CDT hypertension procedure are i n COMPLETE the results section. documented in this encounter Results US Renal Complete w Doppler Complete (02/14/2020 3:42 PM CDT) Anatomical Region Laterality Modality Abdomen/Pelvis Ultrasound Specimen (Source) Anatomical Location Collection Method / Collectio n Time Received Time / Laterality Volume Impressions 02/14/2020 4:11 PM CDT IMPRESSION: 1. No ultrasound evidence of renal arter ial stenosis. 2. Numerous cysts throughout both kidney s, greater in number on the right than the left. 3. No hydronephrosis. JASON BANG MD Narrative 02/14/2020 4:11 PM CDT US RENAL COMPLETE WITH DOPPLER COMPLETE 02/14/2020 3:42 PM HISTORY: 59-year-old patient with histor y of hypertension, request made for evaluation of renal arterial st enosis. COMPARISON: None TECHNIQUE: Rodarte scale images obtained of both kidneys as well as color Doppler and spectral waveform analysis o btained throughout both renal arterial systems. FINDINGS: The right kidney is 12.7 x 6.3 x 8.4 cm with AP cortical thickness of 2.4 cm. The left kidney is 12.4 x 6.2 x 6.1 cm with AP cortical thickness of 1.9 cm. No hydrone phrosis bilaterally. Numerous cysts noted throughout both kidneys, the largest on the right is 4.3 x 3.6 x 4.2 cm and the largest on the left is 2.7 x 2.8 x 2.4 cm. Cysts appear simple, though focus of exam is o n arterial system. Both renal arteries are patent. No veloc ity elevation to suggest stenosis. Waveform analysis demonstrates sharp systolic upstroke with a parvus tardus pattern. Resistive indic es are normal bilaterally. Bladder is decompressed. Procedure Note Jason Bang MD - 02/14/2020 US RENAL COMPLETE WITH DOPPLER COMPLETE 02/14/2020 3:42 PM HISTORY: 59-year-old patient with histor y of hypertension, request made for evaluation of renal arterial st enosis. COMPARISON: None TECHNIQUE: Rodarte scale images obtained of both kidneys as well as color Doppler and spectral waveform analysis o btained throughout both renal arterial systems. FINDINGS: The right kidney is 12.7 x 6.3 x 8.4 cm with AP cortical thickness of 2.4 cm. The left kidney is 12.4 x 6.2 x 6.1 cm with AP cortical thickness of 1.9 cm. No hydrone phrosis bilaterally. Numerous cysts noted throughout both kidneys, the largest on the right is 4.3 x 3.6 x 4.2 cm and the largest on the left is 2.7 x 2.8 x 2.4 cm. Cysts appear simple, though focus of exam is o n arterial system. Both renal arteries are patent. No veloc ity elevation to suggest stenosis. Waveform analysis demonstrates sharp systolic upstroke with a parvus tardus pattern. Resistive indic es are normal bilaterally. Bladder is decompressed. IMPRESSION: 1. No ultrasound evidence of renal arter ial stenosis. 2. Numerous cysts throughout both kidney s, greater in number on the right than the left. 3. No hydronephrosis. JASON BANG MD Edilia Trejo APRN WELDING MACHINE OPERATOR ULTRASONIC IMG US ORDERABLES documented in this encounter Visit Diagnoses Diagnosis Essential hypertension Unspecified essential hypertension documented in this encounter Additional Health Concerns Infection Onset Date Last Indicated Resolved Time MRSA-Contact IsolationComment: 0 04/26/2021 11:03 AM VISION CARE ASSOCIATE Infection 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 Care Teams Sales Office Assistant Relationship Specialty Start Date End Date No Ref-Primary, Physician PCP - General 07/03/14 12/03/21 Juan Farias MD Assigned Heart and Vascular 02/14/2010/03 [address] Provider [place] [address] documented as of this encounter
--- OUTSIDE RECORDS SUMMARY | 2022-02-12 13:47 | XMS_ITS | Encounter Summary ---
:1960 Author Organization [facility] Address [address] [place] [address] Care Team Providers Name Role Phone No Ref-Primary, Physician Primary Care Provider [phone] Juan Farias MD Unavailable Reason for Visit Reason Onset Date Comments Refill Request 05/05/2021 atorvastatin Encounter Details Date Type Department Care Team Description 05/05/2021 Refill [facility] Juan Farias, Refill Request Clinic Annika HERBERT (atorvastatin) [address] [place] [address] [place] [id number] (Wo rk) Social History Tobacco Use Types [...] Diagnosis Mixed hyperlipidemia documented in this encounter Care Teams Weaving Teacher Relationship Specialty Start Date End Date No Ref-Primary, Physician PCP - General 07/03/14 12/03/21 Juan Farias MD Assigned Heart and Vascular 04/04/[address] Provider [place] [id number] documented as of this encounter
--- OUTSIDE RECORDS SUMMARY | 2022-02-12 13:47 | XMS_ITS | Encounter Summary ---
:1960 Author Organization [facility] Address [address] [place] [address] Care Team Providers Name Role Phone No Ref-Primary, Physician Primary Care Provider [phone] Reason for Visit Reason Onset Date Comments Refill Request 04/29/2019 Amlodipine Encounter Details Date Type Department Care Team Description 04/29/2019 Refill [facility] Heart Jarrett, Juan Alegre, Refill Request Clinic Annika HERBERT (Amlodipine) [address] [facility] [address] [facility] [address] [place] [address] [place] [id number] ( rk) Social History Tobacco Use Types Packs/Day [...] Time MRSA-Contact IsolationComment: 0 04/26/2021 11:03 AM TOMBSTONE POLISHER Infection 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 Care Teams Campus Chaplain Relationship Specialty Start Date End Date No Ref-Primary, Physician PCP - General 07/03/14 12/03/21 documented as of this encounter
--- OUTSIDE RECORDS SUMMARY | 2022-02-12 13:47 | XMS_ITS | Encounter Summary ---
:1960 Author Organization [facility] Address [address] [place] [address] Care Team Providers Name Role Phone No Ref-Primary, Physician Primary Care Provider [phone] Reason for Visit Reason Onset Date Comments Refill Request 01/01/2020 Amlodipine Encounter Details Date Type Department Care Team Description 01/01/2020 Refill [facility] Heart Jarrett, Juan Alegre, Refill Request Clinic Annika HERBERT (Amlodipine) 6[address] [facility] [address] [facility] [address] [place] [address] [place] [id number] ( rk) Social History Tobacco Use Types [...] Time MRSA-Contact IsolationComment: 0 04/26/2021 11:03 AM PERSONNEL QUALITY ASSURANCE AUDITOR Infection 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 Care Teams Debeaker Relationship Specialty Start Date End Date No Ref-Primary, Physician PCP - General 07/03/14 12/03/21 documented as of this encounter
--- OUTSIDE RECORDS SUMMARY | 2022-02-12 13:47 | XMS_ITS | Encounter Summary ---
:1960 Author Organization [facility] Address [address] [place] [address] Care Team Providers Name Role Phone No Ref-Primary, Physician Primary Care Provider [phone] Encounter Details Date Type Department Care Team Description 01/30/2020 Travel Social History Tobacco Use Types Packs/Day Years Used Date Smoking Tobacco: Never Smokeless Tobacco: Never Alcohol Use Standard Drinks/Week Comments No 0 (1 standard drink = 0.6 oz pure alcoho l) quit 5 years ago Sex Assigned at Date Recorded Not on file COVID-19 Exposure Response Date Recorded In the last month, have you been in contact with No / Unsure 01/30/2020 1:32 PM CDT someone who was confirmed or suspected to have Coronavirus / COVID-19? documented as of this encounter Plan of Treatment Not on filedocumented as of this encounter Visit Diagnoses Not on filedocumented in this encounter Additional Health Concerns Infection Onset Date Last Indicated Resolved Time MRSA-Contact IsolationComment: 0 04/26/2021 11:03 AM POSTAL DELIVERY OFFICER Infection 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 Care Teams Parish Nurse Relationship Specialty Start Date End Date No Ref-Primary, Physician PCP - General 07/03/14 12/03/21 documented as of this encounter
--- OUTSIDE RECORDS SUMMARY | 2022-02-12 13:47 | XMS_ITS | Encounter Summary ---
:1960 Author Organization [facility] Address [address] [place] [address] Care Team Providers Name Role Phone No Ref-Primary, Physician Primary Care Provider Reason for Visit Reason Onset Date Comments Refill Request 07/18/2019 atorvastatin Encounter Details Date Type Department Care Team Description 07/18/2019 [facility]ill [facility] Jarrett, Juan Alegre, Refill Request Clinic Annika HERBERT (atorvastatin) 6[address] [facility] 6405 [facility] [address] [place] [address] [place] [id number] ( rk) Social History Tobacco Use Types [...] Time MRSA-Contact IsolationComment: 0 04/26/2021 11:03 AM OIL RECOVERY UNIT OPERATOR Infection 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 Care Teams Boxing Promoter Relationship Specialty Start Date End Date No Ref-Primary, Physician PCP - General 07/03/14 12/03/21 documented as of this encounter
--- OUTSIDE RECORDS SUMMARY | 2022-02-12 13:47 | XMS_ITS | Encounter Summary ---
:1960 Author Organization [facility] Address [address] [place] [address] Care Team Providers Name Role Phone No Ref-Primary, Physician Primary Care Provider [phone] Reason for Visit Reason Onset Date Comments Refill Request 09/23/2019 atorvastatin Encounter Details Date Type Department Care Team Description 09/23/2019 [facility]ill [facility] Jarrett, Juan Alegre, Refill Request Clinic Annika HERBERT (atorvastatin) [facility] [facility] [address] [facility] [address] [place] [address] [place] [phone] ( rk) Social History Tobacco Use Types [...] Time MRSA-Contact IsolationComment: 0 04/26/2021 11:03 AM EMS INSTRUCTOR Infection 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 Care Teams Director Check Relationship Specialty Start Date End Date No Ref-Primary, Physician PCP - General 07/03/14 12/03/21 documented as of this encounter
--- OUTSIDE RECORDS SUMMARY | 2022-02-12 13:47 | XMS_ITS | Encounter Summary ---
:1960 Author Organization [facility] Address [address] [place] [address] Care Team Providers Name Role Phone No Ref-Primary, Physician Primary Care Provider [phone] Juan Farias MD Unavailable Reason for Visit Reason Comments Results Encounter Details Date Type Department Care Team Description 03/12/2020 Care Coordination [facility] Heart Sabrina Montes, Results Clinic [place] RN [address] [facility] [address] [place] [address] Social History Tobacco Use Types [...] with No / Unsure 03/11/2020 2:39 PM EXHAUST EMISSIONS INSPECTOR someone who was confirmed or suspected to have Coronavirus / COVID-19? documented as of this encounter Progress Notes Larisa Montes RN - 03/12/2020 11:50 AM CST FLP results from 03/12/20 noted. 6 week FLP lab ordered at last visit with due to LDL trending up. said atorvastatin may need to be increased to 80 mg daily if LDL remains high. made some BP medication adjustments at last visit. He stopped the indapamide, continued amlodipine 10 mg a day, and added metoprolol XL 25 mg daily. I left message for pt to call back with an updateon his BPs. Will forward results to once pt calls me back. Ashish HORNE March 12, 2020,11:51 AM Component Latest Ref Rng & Units 01/27/2020 03/11/2020 Cholesterol <200 mg/dL 222 (H) 213 (H) Triglycerides <150 mg/dL 99 134 HDL Cholesterol >39 mg/dL 87 70 LDL Cholesterol Calculated <100 mg/dL 115 (H) 116 (H) Non HDL Cholesterol <130 mg/dL 135 (H) 143 (H) Larisa Reeves RN - 03/12/2020 11:50 AM CST Pt left message returning my call from yesterday. I left message for pt to call back with an update on his Bps. Ashish HORNE March 13, 2020, 12:06 PM Larisa Reeves RN - 03/12/2020 11:50 AM CST I left message for pt to call back. I told him I will try calling again on 03/16/20. Ashish HORNE March 13, 2020, 4:42 PM Larisa Reeves RN - 03/12/2020 11:50 AM CST Message left for pt to call back to review labs and update on BPs. Ashish HORNE March 16, 2020, 3:50 PM Larisa Reeves RN - 03/12/2020 11:50 AM CST Pt called me back. I reviewed lab results with him. Pt told me his BP has been averaging 140s-160s/90s, HR 70s since metoprolol XL 25 mg daily was added at last visit with . Pt also takes amlodipine 10 mg daily. I will message with lab results and BP update. Ashish HORNE February, 4:26 PM UST EMISSIONS INSPECTOR Larisa Montes RN - 03/12/2020 11:50 AM CST I called and left message for pt with instructions to increase metoprolol XL to 50 mg daily, and atorvastatin to 80 mg daily. Pt previously said it's ok to leave messages with medication instructions. I told pt that new scripts have been sent to his pharmacy for atorvastatin 80 mg tablets and metoprolol XL 50 mg tablets. FLP lab in 3 months. Pt instructed to call with an update on his BP, HR in 2 weeks. Ashish HORNE March 17, 2020, 2:03 PM UST EMISSIONS INSPECTOR documented in this encounter Miscellaneous Notes Telephone Encounter - Juan Farias MD - 03/17/2020 10:51 AM CST Hi Larisa, as usual, I agree with you. I would recommend that he increase atorvastatin to 80 mg daily and Metoprolol Succinate to 50 mg daily. Recheck FLP in 3 months. Juan Farias UST EMISSIONS INSPECTOR Addendum Note - Larisa Montes RN - 03/12/2020 11:50 AM EXHAUST EMISSIONS INSPECTOR Addended by: LARISA MONTES on: 03/17/2020 02:06 PM Modules accepted: Orders, SmartSet UST EMISSIONS INSPECTOR documented in this encounter Plan of Treatment Not on filedocumented as of this encounter Visit Diagnoses Diagnosis Essential hypertension - Primary Unspecified essential hypertension Mixed hyperlipidemia documented in this encounter Additional Health Concerns Infection Onset Date Last Indicated Resolved Time MRSA-Contact IsolationComment: 0 04/26/2021 11:03 AM EXHAUST EMISSIONS INSPECTOR Infection 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 Care Teams Plastic Cutter Relationship Specialty Start Date End Date No Ref-Primary, Physician PCP - General 07/03/14 12/03/21 Juan Farias MD Assigned Heart and Vascular 02/14/2010/03 [address] Provider [place] [address] documented as of this encounter
--- OUTSIDE RECORDS SUMMARY | 2022-02-12 13:47 | XMS_ITS | Encounter Summary ---
:1960 Author Organization [facility] Address [address] [place] [address] Care Team Providers Name Role Phone No Ref-Primary, Physician Primary Care Provider [phone] Juan Farias MD Unavailable Reason for Visit Reason Onset Date Comments Refill Request 03/12/2020 Atorvastatin Encounter Details Date Type Department Care Team Description 03/12/2020 Refill M [facility] Heart Juan Farias, Refill Request Clinic Idris HERBERT (Atorvastatin) [address] [place] [address] [place] [phone] (Wo rk) Social History Tobacco Use Types [...] with No / Unsure 03/11/2020 2:39 PM CASHIER CHECKER someone who was confirmed or suspected to have Coronavirus / COVID-19? documented as of this encounter Plan of Treatment Not on filedocumented as of this encounter Visit Diagnoses Diagnosis Mixed hyperlipidemia documented in this encounter Additional Health Concerns Infection Onset Date Last Indicated Resolved Time MRSA-Contact IsolationComment: 0 04/26/2021 11:03 AM CASHIER CHECKER Infection 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 Care Teams End Matcher Relationship Specialty Start Date End Date No Ref-Primary, Physician PCP - General 07/03/14 12/03/21 Juan Farias MD Assigned Heart and Vascular 02/14/2010/03 [address] Provider [place] [id number] documented as of this encounter
--- OUTSIDE RECORDS SUMMARY | 2022-02-12 13:47 | XMS_ITS | Encounter Summary ---
:1960 Author Organization [facility] Address [address] [place] [address] Care Team Providers Name Role Phone No Ref-Primary, Physician Primary Care Provider [phone] Juan Farias MD Unavailable Encounter Details Date Type Department Care Team Description 03/11/2020 Orders Only [facility] Mixed hyperlipidemia [address] [place] [address] Social History Tobacco Use [...] with No / Unsure 03/11/2020 2:39 PM OFFSHORE WIND TURBINE TECHNICIAN someone who was confirmed or suspected to have Coronavirus / COVID-19? documented as of this encounter Plan of Treatment Not on filedocumented as of this encounter Procedures Procedure Name Priority Date/Time Associated Diagnosis Comme nts LIPID PROFILE Routine 03/11/2020 2:45 PM Mixed hyperlipidemia Results for this OFFSHORE WIND TURBINE TECHNICIAN procedure are i n the results section . ALT Routine 03/11/2020 2:45 PM Mixed hyperlipidemia R esults for this OFFSHORE WIND TURBINE TECHNICIAN procedure are i n the results section . documented in this encounter Results (ABNORMAL) Lipid Profile (03/11/2020 2:45 PM OFFSHORE WIND TURBINE TECHNICIAN) P athologist Signature Cholesterol 213 (H) <200 mg/dL 03/11/2020 [place] 3:46 PM [facility] Comment: Desirable: <200 mg/dl Triglycerides 134 <150 mg/dL 03/11/2020 3:46 PM OFFSHORE WIND TURBINE TECHNICIAN [facility] Comment: Fasting specimen HDL Cholesterol 70 >39 mg/dL 03/11/2020 3:[address] [facility] LDL Cholesterol 116 (H) <100 mg/dL 03/11/2020 3:49 PM [facility] Comment: Above desirable: ??100-129 mg/dl Borderline High: ??130-159 mg/dL High: ? 160-189 mg/dL Very high: ? >189 mg/dl Non HDL Cholesterol 143 (H) <130 mg/dL 03/11/2020 3:49 PM [facility] Comment: Above Desirable: ??130-159 mg/dl Borderline high: ??160-189 mg/dl High: ? 190-219 mg/dl Very high: ? >219 mg/dl Specimen Anatomical Collection Method Collection Time Receive d Time (Source) Location / / Volume Laterality Blood specimen 03/11/2020 2:45 PM 020 2:48 (specimen) OFFSHORE WIND TURBINE TECHNICIAN PM OFFSHORE WIND TURBINE TECHNICIAN Juan Farias MD LAB - BLOOD ORDERABLES Performing Organization Address City/[facility]/ZIP Code Phon e Number M [facility] [address] [address] [facility] [address] [address], [facility] [phone] ALT (03/11/2020 2:45 PM OFFSHORE WIND TURBINE TECHNICIAN) P athologist Signature ALT 41 0 - 70 U/L 03/11/2020 [facility] 3:45 PM [facility] Specimen Anatomical Collection Method Collection Time Receive d Time (Source) Location / / Volume Laterality Blood specimen 03/11/2020 2:45 PM 020 2:48 (specimen) OFFSHORE WIND TURBINE TECHNICIAN PM OFFSHORE WIND TURBINE TECHNICIAN Juan Farias MD LAB - BLOOD ORDERABLES Performing Organization Address City/[facility]/ZIP Code Phon e Number [facility] [address] [place], [place] [address] [facility] [address] [address], [facility] [phone] documented in this encounter Visit Diagnoses Diagnosis Mixed hyperlipidemia documented in this encounter Additional Health Concerns Infection Onset Date Last Indicated Resolved Time MRSA-Contact IsolationComment: 0 04/26/2021 11:03 AM OFFSHORE WIND TURBINE TECHNICIAN Infection 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 Care Teams Burn Crew Member Relationship Specialty Start Date End Date No Ref-Primary, Physician PCP - General 07/03/14 12/03/21 Juan Farias MD Assigned Heart and Vascular 02/14/2010/03 [address] Provider [place] [address] documented as of this encounter
--- OUTSIDE RECORDS SUMMARY | 2022-02-12 13:47 | XMS_ITS | Encounter Summary ---
:1960 Author Organization [facility] Address [address] [place] [address] Care Team Providers Name Role Phone No Ref-Primary, Physician Primary Care Provider [phone] Juan Farias MD Unavailable Encounter Details Date Type Department Care Team Description 02/21/2020 Travel Social History Tobacco Use Types Packs/Day Years Used Date Smoking Tobacco: Never Smokeless Tobacco: Never Alcohol Use Standard Drinks/Week Comments No 0 (1 standard drink = 0.6 oz pure alcoho l) quit 5 years ago Sex Assigned at Date Recorded Not on file COVID-19 Exposure Response Date Recorded In the last month, have you been in contact with No / Unsure 02/21/2020 2:48 PM CDT someone who was confirmed or suspected to have Coronavirus / COVID-19? documented as of this encounter Plan of Treatment Not on filedocumented as of this encounter Visit Diagnoses Not on filedocumented in this encounter Additional Health Concerns Infection Onset Date Last Indicated Resolved Time MRSA-Contact IsolationComment: 0 04/26/2021 11:03 AM BALANCE CLERK Infection 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 Care Teams Acute Dialysis Registered Nurse Relationship Specialty Start Date End Date No Ref-Primary, Physician PCP - General 07/03/14 12/03/21 Juan Farias MD Assigned Heart and Vascular 02/14/2010/03 [address] Provider [place] [id number] documented as of this encounter
--- OUTSIDE RECORDS SUMMARY | 2022-02-12 13:47 | XMS_ITS | Encounter Summary ---
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
--- OUTSIDE RECORDS SUMMARY | 2022-02-12 13:47 | XMS_ITS | Encounter Summary ---
:1960 Author Organization [facility] Address [address] [place] [address] Care Team Providers Name Role Phone No Ref-Primary, Physician Primary Care Provider Encounter Details Date Type Department Care Team Description 01/27/2020 Travel Social History Tobacco Use Types Packs/Day Years Used Date Smoking Tobacco: Never Smokeless Tobacco: Never Alcohol Use Standard Drinks/Week Comments No 0 (1 standard drink = 0.6 oz pure alcoho l) quit 5 years ago Sex Assigned at Date Recorded Not on file COVID-19 Exposure Response Date Recorded In the last month, have you been in contact with No / Unsure 01/27/2020 2:53 PM CDT someone who was confirmed or suspected to have Coronavirus / COVID-19? 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
--- OUTSIDE RECORDS SUMMARY | 2022-02-12 13:47 | XMS_ITS | Encounter Summary ---
:1960 Author Organization [facility] Address [address] [place] [address] Care Team Providers Name Role Phone No Ref-Primary, Physician Primary Care Provider Encounter Details Date Type Department Care Team Description 01/27/2020 Orders Only [facility] Heart Elev ated fasting glucose; [facility] Hyperlipidemia LDL goal <100 ; [address] [facility] hypertension [address] [place] [address] Social History Tobacco Use Types Packs/Day [...] Associated Diagnosis Comme nts LIPID PROFILE Routine 01/27/2020 2:58 PM Hyperlipidemia LDL Re sults for this CDT goal <100 procedure are i n the results section. HEMOGLOBIN A1C Routine 01/27/2020 2:58 PM Elevated fasting Res ults for this CDT glucose procedure are i n the results section. ALT Routine 01/27/2020 2:58 PM Hyperlipidemia LDL Res ults for this CDT goal <100 procedure are i n the results section. BASIC METABOLIC Routine 01/27/2020 2:58 PM Essential hypertens ion Results for this PANEL CDT procedure are i n the results section. documented in this encounter Results Basic metabolic panel (01/27/2020 2:58 PM CDT) P athologist Signature Sodium 133 133 - 144 01/27/2020 [place] mmol/L 3:46 PM [facility] Potassium 3.7 3.4 - 5.3 01/27/2020 [place] mmol/L 3:46 PM [facility] Chloride 101 94 - 109 01/27/2020 [place] mmol/L 3:46 PM [facility] Carbon Dioxide 24 20 - 32 01/27/2020 [place] mmol/L 3:54 PM [facility] Anion Gap 8 3 - 14 01/27/2020 [place] mmol/L 3:54 PM [facility] Glucose 85 70 - 99 01/27/2020 [place] mg/dL 3:54 PM [facility] Comment: Fasting specimen Urea Nitrogen 13 7 - 30 mg/dL 01/27/2020 3:54 PM [facility] Creatinine 1.10 0.66 - 1.25 mg/dL 01/27/2020 3:54 PM [facility] GFR Estimate 74 >60 01/27/2020 3:54 PM [facility] mL/min/{1.73_m2} [facility] Comment: Non GFR Calc Starting 04/10/2018, serum creatinine ba sed estimated GFR (eGFR) will be calculated using the Chronic Kidney Dise [facility] Epidemiology Collaboration (CKD-EPI) equation. GFR Estimate If 86 >60 mL/min/{1.73_m2} 01/27/2020 3: 54 PM [facility] Comment: GFR Calc Starting 04/10/2018, serum creatinine ba sed estimated GFR (eGFR) will be calculated using the Chronic Kidney Dise [facility] Epidemiology Collaboration (CKD-EPI) equation. Calcium 8.8 8.5 - 10.1 mg/dL 01/27/2020 3:54 PM [facility] Specimen Anatomical Collection Method Collection Time Receive d Time (Source) Location / / Volume Laterality Blood specimen 01/27/2020 2:58 PM 020 3:03 (specimen) CDT PM CDT Juan Farias MD LAB - BLOOD ORDERABLES Performing Organization Address City/State/ZIP Code Phon e Number M [place] [address] [place], [place] [address] [facility] [address] [place], [place] [address], [facility] [phone] (ABNORMAL) Lipid Profile (01/27/2020 2:58 PM CDT) athologist Signature Cholesterol 222 (H) <200 mg/dL 01/27/2020 [place] 3:54 PM T [facility] Comment: Desirable: <200 mg/dl Triglycerides 99 <150 mg/dL 01/27/2020 3:54 PM CDT [facility] Comment: Fasting specimen HDL Cholesterol 87 >39 mg/dL 01/27/2020 3:[address] [facility] LDL Cholesterol 115 (H) <100 mg/dL 01/27/2020 3:54 PM [facility] Comment: Above desirable: ??100-129 mg/dl Borderline High: ??130-159 mg/dL High: ? 160-189 mg/dL Very high: ? >189 mg/dl Non HDL Cholesterol 135 (H) <130 mg/dL 01/27/2020 3:54 PM CDT [facility] Comment: Above Desirable: ??130-159 mg/dl Borderline high: ??160-189 mg/dl High: ? 190-219 mg/dl Very high: ? >219 mg/dl Specimen Anatomical Collection Method Collection Time Receive d Time (Source) Location / / Volume Laterality Blood specimen 01/27/2020 2:58 PM 020 3:03 (specimen) CDT PM CDT Juan Farias MD LAB - BLOOD ORDERABLES Performing Organization Address City/State/ZIP Code Phon e Number M [facility] [address] [place], [place] [address] [facility] [address] [place], [place] [address], [facility] [phone] ALT (01/27/2020 2:58 PM CDT) athologist Signature ALT 46 0 - 70 U/L 01/27/2020 [facility] 3:54 PM CDT HOSPITAL Specimen Anatomical Collection Method Collection Time Receive d Time (Source) Location / / Volume Laterality Blood specimen 01/27/2020 2:58 PM 020 3:03 (specimen) CDT PM CDT Juan Farias MD LAB - BLOOD ORDERABLES Performing Organization Address City/State/ZIP Code Phon e Number M [facility] [address] [place], [place] [address] [facility] [address] [place], [place] [address] [facility] [phone] (ABNORMAL) Hemoglobin A1c (01/27/2020 2:58 PM CDT) P athologist Signature Hemoglobin A1C 5.7 (H) 0 - 5.6 % 01/27/2020 [place] 4:00 PM CDT [facility] Comment: Normal <5.7% Prediabetes 5.7-6.4% ??Diab etes 6.5% or higher - adopted from ADA consensus guidelines. Specimen Anatomical Collection Method Collection Time Receive d Time (Source) Location / / Volume Laterality Blood specimen 01/27/2020 2:58 PM 020 3:03 (specimen) CDT PM CDT Juan Farias MD LAB - BLOOD ORDERABLES Performing Organization Address City/[facility]/ZIP Code Phon e Number M [facility] [address] [address] [phone] [facility] [address] [address], [facility] [phone] documented in this encounter Visit Diagnoses Diagnosis Elevated fasting glucose Impaired fasting glucose Hyperlipidemia LDL goal <100 Other and unspecified hyperlipidemia Essential hypertension Unspecified essential hypertension documented in this encounter Additional Health Concerns Infection Onset Date Last Indicated Resolved Time MRSA-Contact IsolationComment: 0 04/26/2021 11:03 AM 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
--- OUTSIDE RECORDS SUMMARY | 2022-02-12 13:47 | XMS_ITS | Encounter Summary ---
:1960 Author Organization [facility] Address [address] [place] [address] Care Team Providers Name Role Phone No Ref-Primary, Physician Primary Care Provider [phone] Juan Farias MD Unavailable Reason for Visit Reason Onset Date Comments Refill Request 06/30/2021 Atorvastatin Encounter Details Date Type Department Care Team Description 06/30/2021 Refill [facility] Heart Juan Farias, Refill Request Clinic Annika HERBERT (Atorvastatin) [address] [place] [address] [place] [id number] (Wo rk) Social History Tobacco Use Types Packs/Day Years Used Date Smoking Tobacco: Never Smokeless Tobacco: Never Alcohol Use Standard Drinks/Week Comments No 0 (1 standard drink = 0.6 oz pure alcoho l) quit 5 years ago Sex Assigned at Date Recorded Not on file documented as of this encounter Miscellaneous Notes Telephone Encounter - Sloane Berumen LPN - 06/30/2021 9:18 AM CST [facility] Cardiology Refill Guideline reviewed. Medication does not meet criteria for refill due to JOEL 02/05/20, Last refill on 05/05/21 letter was sent. no appt is made. . Messaged to providers team for further review. E NAILER documented in this encounter Plan of Treatment Not on filedocumented as of this encounter Visit Diagnoses Diagnosis Mixed hyperlipidemia documented in this encounter Additional Health Concerns Infection Onset Date Last Indicated Resolved Time MRSA 05/13/2021 05/13/2021 documented as of this encounter Care Teams Doffer Relationship Specialty Start Date End Date No Ref-Primary, Physician PCP - General 07/03/14 12/03/21 Juan Farias MD Assigned Heart and Vascular 04/04/21 [address] Provider [place] [id number] documented as of this encounter
--- OUTSIDE RECORDS SUMMARY | 2022-02-12 13:47 | XMS_ITS | Encounter Summary ---
:1960 Author Organization [facility] Address [address] [place] [address]. [place] [address] Care Team Providers Name Role Phone No Ref-Primary, Physician Primary Care Provider [phone] Reason for Visit Reason Comments Hypertension Encounter Details Date Type Department Care Team Description 02/04/2020 Care Coordination [facility] Brian Madrid, Hypertension Clinic Annika HORNE [address] [facility] [address] [place] [address] Social History Tobacco Use Types [...] documented as of this encounter Progress Notes Arabella Madrid RN - 02/04/2020 12:17 PM CDT Images from the original note were not included. Call out to patient to patient to discuss further. Patient states he is feeling fine, he denies chest pain, shortness of breath, headache etc. Patient states he felt fine last night, and today, but wasmostly nervous when he saw the numbers. He said he's at work now, but will check his blood pressure this afternoon when he is able to use his cuff. He will rest for 10 minutes before checking his bloodpressure and then call us with an update. I reviewed that he may need a renal artery ultrasound and/or an appointment, and that I will update Dr. Farias after we get his blood pressure reading from today. Arabella Madrid RN on 02/04/2020 at 12:25 PM BP Received: Today Message Contents Desyi Milton RN P [facility] Heart Team [address] ?? [address]. Max spoke with pt last night BP 170/[address] Farias wanted a renal U/S No order Dr. Max thinks an RAN OV needed. Could you follow up? Thanks Deysi Patient called back with an update on his blood pressure today. Patient reports BP 161/101 this afternoon after work. Patient denies chest pain, shortness of breath, headache or other symptoms. Patientstates he feels fine other than he is making himself anxious because of the numbers. Dr. Farias is rounding this week. Offered patient an RAN appointment tomorrow, patient states he does not have much time for a visit tomorrow as he has work, but he thinks he could step away for a virtual visit. Advised patient if any symptoms develop he needs to be seen urgently in the ER, or even if he has no symptoms but BP elevates further he needs to go to the ER urgently as well. Patient verbalized understanding. Arranged video visit for tomorrow at 11:30. 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
--- OUTSIDE RECORDS SUMMARY | 2022-02-12 13:47 | XMS_ITS | Encounter Summary ---
:1960 Author Organization [facility] Address [address] [place] [address] Care Team Providers Name Role Phone No Ref-Primary, Physician Primary Care Provider [phone] Reason for Referral Diagnostic Imaging Ultrasound (Routine) - Closed Specialty Diagnoses / Procedures Referred By Contact Refer red To Contact Radiology. Diagnoses Essential hypertension Radha Trejo Rh Ultrasound [facility] Procedures US Renal Complete w Doppler Complete ROOSEVELT Chapman CHEMICALS DISTILLER [address] [facility] NO INFO AVAILABLE [address] 02/10/2022 [place] [address] Phone: Fax: Referral ID Status Reason Start Date Expiration Date Visits Requ ested Visits Authorized [id number] Closed 02/05/2020 02/04/2021 1 1 Reason for Visit Reason Comments Follow Up Hypertension Encounter Details Date Type Department Care Team Description 02/05/2020 Virtual Visit [facility] Ghada Trejo [facility] Annika Chapman APRN hypertension (Primary [address] [facility] CHEMICALS DISTILLER Dx) [address] NO INFO [place] [address] AVAILABLE [phone] 02/10/2022 Social History Tobacco Use Types Packs/Day Years [...] documented as of this encounter Progress Notes RashawnAliriovirginieRadha M - 02/05/2020 11:30 AM CDT Juan Pablo Brown is a 59 year old male who is being evaluated via a billable video visit. The patient has been notified of following: This video visit will be conducted via a call between you and your physician/provider. We have found that certain health care needs can be provided without the need for an in-person physical exam. This service lets us provide the care you need with a video conversation. If a prescription is necessarywe can send it directly to your pharmacy. If lab work is needed we can place an order for that and you can then stop by our lab to have the test done at a later time. Video visits are billed at different rates depending on your insurance coverage. Please reach out toyour insurance provider with any questions. If during the course of the call the physician/provider feels a video visit is not appropriate, you will not be charged for this service. Patient has given verbal consent for Video visit? Yes How would you like to obtain your AVS? Mail a copy If you are dropped from the video visit, the video invite should be resent to: Text to cell phone: [phone] Will anyone else be joining your video visit? No Vitals reported by patient: B/P: 143/91 HR: 78 Weight: 195 lbs Height: 5 ft 9 in. Review Of Systems Skin: negative Eyes: negative Ears/Nose/Throat: negative Respiratory: No shortness of breath, dyspnea on exertion, cough, or hemoptysis Cardiovascular: negative Gastrointestinal: negative Genitourinary: negative Musculoskeletal: negative Neurologic: negative Psychiatric: negative Hematologic/Lymphatic/Immunologic: negative Endocrine: negative Reviewed by: Yanira Price MA Video-Visit Details History of Present Illness: Juan Pablo Brown is a 59-year-old gentleman followed here by Dr. Farias. He was recently seen for his annual visit less than a week ago. He was added to my schedule today due to concerns of hypertension since his last visit. He has a known history of hypertension with dyslipidemia. Due to hyperkalemia and acute renal dysfunction on lisinopril, this medication was stopped and he was changed to amlodipine. Dr. Farias feels eliza have some at level of renal artery stenosis. He reports no concerning cardiac symptoms. His blood pressure at the dentist recently was 170/110 prompting a call to our oncdian MD. Since then his BP has been 165/90 just after his meds; today he tookit a few hours after his meds and obtained 143/91. He has no symptoms with his high numbers At the last visit his total cholesterol had gone up from 1 45-2 22. His LDL had elevated from 72-1 15 and his HDL was up from 43-87. He had been on a 5-day fishing trip prior to this where he was eating deep fried foods. His basic metabolic panel showed a creatinine of 1.1 potassium 3.7 and his hemoglobin A1c is 5.7%. There is a plan in place to recheck his lipids in 6 weeks time and if they are not improved his Lipitor should be increased. His blood pressure was elevated at the last office visit and Dr. Farias asked him to check his numbers. Last echocardiogram in 2008 showed normal left ventricular wall thickness. Aorta was not enlarged and there was mild mitral annular calcification beginning. General Appearance: no distress, normal body habitus, upright. ENT/Mouth: membranes moist, no nasal discharge or bleeding gums. Normal head shape, no evidence of injury or laceration. EYES: no scleral icterus, normal conjunctivae Neck: no evidence of thyromegaly. Chest/Lungs: No audible wheezing equal chest wall expansion. Non labored breathing. No cough. Cardiovascular: No evidence of elevated jugular venous pressure. No evidence of pitting edema bilaterally Abdomen: no evidence of abdominal distention. No observed jaundice. Extremities: no cyanosis or clubbing noted. Skin: no xanthelasma, normal skin collar. No evidence of facial lacerations. Neurologic: Normal arm motion bilateral, no tremors. No evidence of focal defect. Psychiatric: alert and oriented x3, calm Impression/Plan: 1. Hypertension-uncontrolled -History of elevated potassium and regression of renal function on MARK inhibitors in the past -Currently on amlodipine 10 mg/day -Add Lozol 1.2mg daily -Basic metabolic panel in 2 weeks with a renal artery ultrasound to assess for renal artery stenosis -I will have him follow-up with Dr. Farias's team as I have no availability in this timeframe -Reminded the patient to limit sodium intake and to call in if numbers are not improving. 2. Dyslipidemia-uncontrolled. He has lipids scheduled March 11. Type of service: Video Visit Video Start Time: 1110am Video End Time: 1130am Originating Location (pt. Location): Home Distant Location (provider location): home office Platform used for Video Visit: Clotilde Trejo APRN CHEMICALS DISTILLER documented in this encounter Plan of Treatment Not on filedocumented as of this encounter Results US Renal Complete w [...] right than the left. 3. No hydronephrosis. GILMA BANG MD Narrative 02/14/2020 4:11 PM CDT [...] normal bilaterally. Bladder is decompressed. Procedure Note Gilma Bang MD - 02/14/2020 US RENAL COMPLETE [...] right than the left. 3. No hydronephrosis. 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
--- OUTSIDE RECORDS SUMMARY | 2022-02-12 13:47 | XMS_ITS | Encounter Summary ---
:1960 Author Organization [facility] Address [address] [place] [address]. [place] [address] Care Team Providers Name Role Phone No Ref-Primary, Physician Primary Care Provider [phone] Feliz Roy MD Unavailable Reason for Visit Reason Comments Follow Up 1 month FU Cardiac testing US 02/05/2020 Results lab 02/05/2020 Encounter Details Date Type Department Care Team Description 02/24/2020 Virtual Visit [facility] Feliz Roy Essential hypertension (Primary Dx); Heart Clinic Annika Alegre MD Mixed hyperlipidemia [address] [facility] [address] [facility] [address] [place] [address] [place] [id number] Social History Tobacco Use Types Packs/Day Years Used Date Smoking Tobacco: Never Smokeless Tobacco: Never Alcohol Use Standard Drinks/Week Comments No 0 (1 standard drink = 0.6 oz pure alcoho l) quit 5 years ago Sex Assigned at Date Recorded Not on file COVID-19 Exposure Response Date Recorded In the last month, have you been in contact with No / Unsure 02/24/2020 3:19 PM COPY COORDINATOR someone who was confirmed or suspected to have Coronavirus / COVID-19? documented as of this encounter Last Filed Vital Signs Vital Sign Reading Time Taken Comments Blood Pressure 133/89 02/24/2020 3:21 PM patient repor jacques COPY COORDINATOR Pulse 79 02/24/2020 3:21 PM patient repor jacques COPY COORDINATOR Temperature - - Respiratory Rate - - Oxygen Saturation - - Inhaled Oxygen Concentration - - Weight 88.5 kg (195 lb) 02/24/2020 3:21 PM patient repo rted COPY COORDINATOR Height 172.7 cm (5' 7.99) 02/24/2020 3:21 PM COPY COORDINATOR Body Mass Index 29.66 02/24/2020 3:21 PM COPY COORDINATOR documented in this encounter Progress Notes Feliz Roy MD - 02/24/2020 4:42 PM CST Service Date: 02/24/2020 VIDEO VISIT HISTORY OF PRESENT ILLNESS: I had the opportunity to see Mr. Elijah Brown in Cardiology Clinic today at [facility] in [place] for reevaluation of hypertension and dyslipidemia. I saw him recently and his cholesterol and blood pressure numbers were high. I suggested that we should recheck his cholesterol numbers and those numbers will be rechecked in a couple of weeks. I suspect thathe was eating in a way that raised his cholesterol numbers prior to the last set of results. He has a history of hyperkalemia and acute renal failure with lisinopril. I suspected that that may be due to renal artery stenosis. He completed a renal artery ultrasound, which was negative for stenosis. He met with Edilia Ghosh NP, who added indapamide 1.25 mg daily to his program. He was already taking amlodipine 10 mg a day. Unfortunately, his blood pressures are still running high. Hisblood pressure this morning is 155/95. His potassium is also lower now and he will probably need a potassium supplement if he continues indapamide. He is feeling well with no specific cardiac complaints such as chest pain or shortness of breath. Hedoes not have any edema currently. PHYSICAL EXAMINATION: His blood pressure is 133/89, heart rate 79, weight 195 pounds. IMPRESSIONS: Mr. Elijah Brown is a 59-year-old gentleman with hypertension and dyslipidemia. I conducted a video visit with him today to reassess those issues. His blood pressures are still running high after the addition of indapamide 1.25 mg p.o. b.i.d. and his potassium is down. Instead of addinga potassium supplement and a third antihypertensive drugs, I suggested that we should stop the indapamide, continue amlodipine 10 mg a day and add metoprolol XL 25 mg daily. He will check his blood pressures periodically between now and 03/11/2020, at which time he will have his cholesterol rechecked.We will talk to him about his cholesterol numbers and his blood pressure readings at that time and consider increasing his metoprolol XL to 50 mg a day if needed. FELIZ ROY MD, [facility] MT: JOELLE Name: ELIJAH BROWN Account: [id number] : 1960 Service Date: 02/24/2020 Document: [id number] COORDINATOR Feliz Roy MD - 02/24/2020 4:00 PM CST Elijah Brown is a 59 year old male [...] be resent to: Text to cell phone: [phone] Will anyone else be joining your video visit? No Review Of Systems Skin: NEGATIVE Eyes:Ears/Nose/Throat: wears glasses Respiratory: NEGATIVE Cardiovascular:NEGATIVE Gastrointestinal: NEGATIVE Genitourinary:frequency due to meds. Musculoskeletal: NEGATIVE Neurologic: NEGATIVE Psychiatric: sister recently passed Hematologic/Lymphatic/Immunologic: NEGATIVE Endocrine: NEGATIVE Vitals - Patient Reported Systolic (Patient Reported): 133 Diastolic (Patient Reported): 89 Weight (Patient Reported): 88.5 kg (195 lb) Pulse (Patient Reported): 79 Patient concerned about BP being higher than usual. DORA Goldsmith Telephone number of patient: [phone] Video-Visit Details Type of service: Video Visit DOX Video Start Time: 4:22 PM Video End Time: 4:43 PM Originating Location (pt. Location): Home Distant Location (provider location): [facility] Platform used for Video Visit: FELIZ Waldron MD HPI and Plan: See dictation No orders of the defined types were placed in this encounter. Orders Placed This Encounter Medications ??? metoprolol succinate ER (TOPROL XL) 25 MG 24 hr tablet Sig: Take 1 tablet (25 mg) by mouth daily Dispense: 90 tablet Refill: 3 Medications Discontinued During This Encounter Medication Reason ??? indapamide (LOZOL) 1.25 MG tablet Encounter Diagnoses Name Primary? Essential hypertension Yes ??? Mixed hyperlipidemia CURRENT MEDICATIONS: Current Outpatient Medications Medication Sig Dispense Refill ??? amLODIPine (NORVASC) 10 MG tablet Take 1 tablet (10 mg) by mouth daily 90 tablet 0 ??? aspirin 81 MG tablet Take 81 mg by mouth daily ??? atorvastatin (LIPITOR) 40 MG tablet Take 1 tablet (40 mg) by mouth daily 90 tablet 0 ??? Xwpaohdkz-Yteopurojjx-Rni D (OSTEO BI-FLEX ONE PER DAY PO) ??? MAGNESIUM CR OR None Entered ??? metoprolol succinate ER (TOPROL XL) 25 MG 24 hr tablet Take 1 [...] Diagnosis Date ??? Anemia, unspecified ??? Gout -2008 left first MTP ??? Other and unspecified [...] ??? Financial resource strain: None ??? Food insecurity Worry: None Inability: None ??? Transportation needs Medical: None Non-medical: None Tobacco Use ??? Smoking status: Never Smoker ??? Smokeless tobacco: Never Used Substance and Sexual Activity ??? Alcohol use: No Comment: quit 5 years ago ??? Drug use: No ??? Sexual activity: None Lifestyle ??? Physical activity Days per week: None Minutes per session: None ??? Stress: None Relationships ??? Social connections Talks on phone: None Gets together: None Attends uatsdin service: None Active member of club or organization: None Attends meetings of clubs or organizations: None Relationship status: None ??? Intimate partner violence Fear of current or ex partner: None Emotionally abused: None Physically abused: None Forced sexual activity: None Other Topics Concern ??? Parent/sibling w/ CABG, [place] or angioplasty before 65F 55M? No ??? [...] Not Asked Social History Narrative ??? None Physical Exam: Vitals: BP 133/89 Pulse 79 Ht 1.727 m (5' 7.99) Wt 88.5 kg (195 lb) BMI 29.66 kg/m?? General: no apparent distress, normal body habitus, sitting upright. ENT/Mouth: membranes moist, no nasal discharge. Normal head shape, no apparent injury or laceration. Eyes: no scleral icterus, normal conjunctivae. No observed jaundice. Neck: no apparent neck swelling. Chest/Lungs: No breathing difficulty while speaking. No audible wheezing. No cough during conversation. Cardiovascular: No obviously elevated jugular venous pressure. No apparent edema bilaterally in LE. Abdomen: no obvious abdominal distention. Extremities: no apparent cyanosis. Skin: no xanthelasma. No facial lacerations. Neurologic: Normal arm motion bilateral, no tremors. Psychiatric: Alert and oriented x3, calm demeanor The rest of the comprehensive physical examination is deferred due to public health emergency video visit restrictions. Recent Lab Results: LIPID RESULTS: Lab Results Component Value Date CHOL 222 (H) 01/27/2020 HDL 87 01/27/2020 LDL 115 (H) 01/27/2020 TRIG 99 01/27/2020 CHOLHDLRATIO 4.0 07/03/2014 LIVER ENZYME RESULTS: Lab Results Component Value Date AST 524 (H) 07/03/2009 ALT 46 01/27/2020 CBC RESULTS: Lab Results Component Value Date WBC 6.9 07/03/2009 RBC 3.35 (L) 07/03/2009 HGB 10.6 (L) 07/03/2009 HCT 32.4 (L) 07/03/2009 MCV 97 07/03/2009 MCH 31.6 07/03/2009 MCHC 32.7 07/03/2009 RDW 15.2 (H) 07/03/2009 PLT 287 07/05/2009 BMP RESULTS: Lab Results Component Value Date NA 134 02/21/2020 POTASSIUM 3.4 02/21/2020 CHLORIDE 100 02/21/2020 CO2 26 02/21/2020 ANIONGAP 8 02/21/2020 GLC 95 02/21/2020 BUN 13 02/21/2020 CR 1.04 02/21/2020 GFRESTIMATED 79 02/21/2020 GFRESTBLACK >90 02/21/2020 BRIAN 8.8 02/21/2020 A1C RESULTS: Lab Results Component Value Date A1C 5.7 (H) 01/27/2020 INR RESULTS: Lab Results Component Value Date INR 0.95 07/01/2009 INR 1.19 (H) 03/14/2009 CC No referring provider defined for this encounter. COORDINATOR documented in this encounter Plan of Treatment Not on filedocumented as of this encounter Visit Diagnoses Diagnosis Essential hypertension - Primary Unspecified essential hypertension Mixed hyperlipidemia documented in this encounter Additional Health Concerns Infection Onset Date Last Indicated Resolved Time MRSA-Contact IsolationComment: 0 04/26/2021 11:03 AM COPY COORDINATOR Infection 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 Care Teams Capacity Manager Relationship Specialty Start Date End Date No Ref-Primary, Physician PCP - General 07/03/14 12/03/21 Feliz Roy MD Assigned Heart and Vascular 02/14/2010/03 [address] Provider [place] [id number] documented as of this encounter
--- OUTSIDE RECORDS SUMMARY | 2022-02-12 13:47 | XMS_ITS | Encounter Summary ---
:1960 Author Organization [facility] Address [address] [place] [address] Care Team Providers Name Role Phone No Ref-Primary, Physician Primary Care Provider [phone] Reason for Visit Reason Onset Date Comments Refill Request 12/23/2019 Atorvastatin Encounter Details Date Type Department Care Team Description 12/23/2019 Refill [facility] [place], Juan Alegre, Refill Request Clinic Annika HERBERT (Atorvastatin) [address] [facility] [address] [facility] [address] [place] [address] [place] [id number] ( rk) Social History Tobacco Use Types [...] Time MRSA-Contact IsolationComment: 0 04/26/2021 11:03 AM HEALTH CARE SOCIAL WORKER Infection 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 Care Teams Quality Control Engineering Technician Relationship Specialty Start Date End Date No Ref-Primary, Physician PCP - General 07/03/14 12/03/21 documented as of this encounter
--- OUTSIDE RECORDS SUMMARY | 2022-02-12 13:47 | XMS_ITS | Encounter Summary ---
:1960 Author Organization [facility] Address [address] [place] [address] Care Team Providers Name Role Phone No Ref-Primary, Physician Primary Care Provider [phone] Juan Farias MD Unavailable Encounter Details Date Type Department Care Team Description 02/21/2020 Orders Only [facility] [place] [address] [place] [address] [address] [place] [address] Social History Tobacco Use [...] Name Priority Date/Time Associated Diagnosis Comme nts BASIC METABOLIC Routine 02/21/2020 2:52 PM Essential Result s for this PANEL CDT hypertension procedure are i n the results section. documented in this encounter Results Basic metabolic panel (02/21/2020 2:52 PM CDT) athologist Signature Sodium 134 133 - 144 02/21/2020 [place] mmol/L 3:51 PM [facility] Potassium 3.4 3.4 - 5.3 02/21/2020 [place] mmol/L 3:51 PM [facility] Chloride 100 94 - 109 02/21/2020 [place] mmol/L 3:51 PM [facility] Carbon Dioxide 26 20 - 32 02/21/2020 [place] mmol/L 3:57 PM [facility] Anion Gap 8 3 - 14 02/21/2020 [place] mmol/L 3:57 PM [facility] Glucose 95 70 - 99 02/21/2020 [place] mg/dL 3:57 PM [facility] Urea Nitrogen 13 7 - 30 02/21/2020 [place] mg/dL 3:57 PM [facility] Creatinine 1.04 0.66 - 02/21/2020 [place] 1.25 mg/dL 3:57 PM [facility] GFR Estimate 79 >60 02/21/2020 [place] mL/min/{1. 3:57 PM [facility] 73_m2} [facility] Comment: Non GFR Calc Starting 04/10/2018, serum creatinine ba sed estimated GFR (eGFR) will be calculated using the Chronic Kidney Dise banner Epidemiology Collaboration (CKD-EPI) equation. GFR Estimate If >90 >60 mL/min/{1.73_m2} 02/21/2020 3: [address] [facility] Comment: GFR Calc Starting 04/10/2018, serum creatinine ba sed estimated GFR (eGFR) will be calculated using the Chronic Kidney Dise banner Epidemiology Collaboration (CKD-EPI) equation. Calcium 8.8 8.5 - 10.1 mg/dL 02/21/2020 3:57 PM [facility] Specimen Anatomical Collection Method Collection Time Receive d Time (Source) Location / / Volume Laterality Blood specimen 02/21/2020 2:52 PM 020 2:57 (specimen) CDT PM CDT Edilia Trejo APRN WRAPPER SELECTOR LAB - BLOOD ORDERA BLES Performing Organization Address City/State/ZIP Code Phon e Number M [facility] [address] [place], [place] [address] [facility] [address] [place] [address] [facility] [phone] documented in this encounter Visit Diagnoses Diagnosis Essential hypertension Unspecified essential hypertension documented in this encounter Additional Health Concerns Infection Onset Date Last Indicated Resolved Time MRSA-Contact IsolationComment: 0 04/26/2021 11:03 AM GRINDER SET UP OPERATOR CENTERLESS Infection 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 Care Teams Copy Clerk Relationship Specialty Start Date End Date No Ref-Primary, Physician PCP - General 07/03/14 12/03/21 Juan Farias MD Assigned Heart and Vascular 02/14/2010/03 [address] Provider [place] [id number] documented as of this encounter
--- OUTSIDE RECORDS SUMMARY | 2022-02-12 13:47 | XMS_ITS | Encounter Summary ---
:1960 Author Organization [place] Address [address] [place] [address] Care Team Providers Name Role Phone No Ref-Primary, Physician Primary Care Provider [phone] Encounter Details Date Type Department Care Team Description 11/29/2018 Travel Social History Tobacco Use Types Packs/Day [...] documented as of this encounter Care Teams Refractory Specialist Relationship Specialty Start Date End Date No Ref-Primary, Physician PCP - General 07/03/14 12/03/21 documented as of this encounter
--- OUTSIDE RECORDS SUMMARY | 2022-02-12 13:47 | XMS_ITS | Encounter Summary ---
:1960 Author Organization [facility] Address [address] [place] [address] Care Team Providers Name Role Phone No Ref-Primary, Physician Primary Care Provider Juan Farias MD Unavailable Encounter Details Date Type Department Care Team Description 02/24/2020 Travel Social History Tobacco Use Types Packs/Day [...] with No / Unsure 02/24/2020 3:19 PM SUSTAINABILITY EXECUTIVE DIRECTOR someone who was confirmed or suspected to have Coronavirus / COVID-19? documented as of this encounter Plan of Treatment Not on filedocumented as of this encounter Visit Diagnoses Not on filedocumented in this encounter Additional Health Concerns Infection Onset Date Last Indicated Resolved Time MRSA-Contact IsolationComment: 0 04/26/2021 11:03 AM SUSTAINABILITY EXECUTIVE DIRECTOR Infection 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 Care Teams Chronometer Assembler And Adjuster Relationship Specialty Start Date End Date No Ref-Primary, Physician PCP - General 07/03/14 12/03/21 Juan Farias MD Assigned Heart and Vascular 02/14/2010/03 [address] Provider [place] [id number] documented as of this encounter
--- OUTSIDE RECORDS SUMMARY | 2022-02-12 13:47 | XMS_ITS | Encounter Summary ---
:1960 Author Organization [place] Address [facility] [place] [address] Care Team Providers Name Role Phone No Ref-Primary, Physician Primary Care Provider [phone] Reason for Referral (Routine) - Closed Specialty Diagnoses / Procedures Referred By Contact Refer red To Contact Diagnoses Mixed hyperlipidemia Feliz Roy MD [address] [place] [address] Referral ID Status Reason Start Date Expiration Date Visits Requ ested Visits Authorized [id number] Closed 01/30/2020 01/29/2021 1 1 Reason for Visit Reason Comments Annual Visit Results lab Encounter Details Date Type Department Care Team Description 01/30/2020 Office Visit [facility] Feliz Roy Essen tial hypertension (Primary Dx); [facility] Idris HERBERT Mixed hyperlipidemia; [address] [facility] [address] Type 2 diabetes mellitus without complication, without long-term current use of insulin (H) [facility] [address] [place] [address] [place] [address] [phone] Social History Tobacco Use Types Packs/Day Years [...] Sign Reading Time Taken Comments Blood Pressure 154/90 01/30/2020 2:18 PM CDT Pulse 74 01/30/2020 2:18 PM CDT Temperature - - Respiratory Rate - - Oxygen Saturation 98% 01/30/2020 2:18 PM CDT Inhaled Oxygen Concentration - - Weight 89.5 kg (197 lb 4.8 oz) 01/30/2020 2:18 PM CDT Height 172.7 cm (5' 7.99) 01/30/2020 2:18 PM CDT Body Mass Index 30.01 01/30/2020 2:18 PM CDT documented in this encounter Progress Notes Feliz Roy MD - 01/30/2020 3:09 PM CDT Service Date: 01/30/2020 HISTORY OF PRESENT ILLNESS: I had the opportunity to see Mr. Elijah Brown in Cardiology Clinic today at [facility] in [place] for reevaluation of hypertension and dyslipidemia. He hashad a borderline hemoglobin A1c in the past as well, indicating diet-controlled type 2 diabetes. While taking lisinopril, he developed hyperkalemia and acute kidney dysfunction in 2017. This resolved after stopping lisinopril. He is now on amlodipine for blood pressure control. He takes atorvastatin 40 mg daily for his cholesterol and it has been effective in the past. He is not experiencing any concerning cardiac symptoms, such as chest discomfort, shortness of breath, palpitations, lightheadedness or syncope. This year, his cholesterol numbers are surprisingly high. For some reason, his total cholesterol hasgone up from 145 to 222 and his LDL has gone up from 72 to 115. His HDL also went up from 43 to 87, which is also hard to explain. He tells me that he was on a 5-day fishing trip recently and did not eat well on the fishing trip, with a lot of deep fried foods. Maybe that is enough to explain this result. Fortunately, his basic metabolic panel has now been normal since discontinuing lisinopril with acreatinine of 1.1 and potassium 3.7. His hemoglobin A1c was 5.7. His blood pressure is elevated today at 154/90, heart rate 74 and weight 197 pounds. His blood pressure has been under excellent control in the past in the 120s/70s or 80s. His lungs are clear. Heart rhythm is regular. He has no cardiac murmurs or carotid bruits. IMPRESSIONS: Mr. Elijah Brown is a 59-year-old gentleman with hypertension and dyslipidemia, both of which are poorly controlled today despite continuing his usual medications. He may have had some dietary indiscretions recently that led to higher cholesterol numbers, but I do not have a good explanation for his higher blood pressure reading. I am concerned that his elevated blood pressure may be due to renal artery stenosis. He has had hyperkalemia and elevated creatinine levels with lisinopril in the past which can occur with renal arterystenosis. He will check his blood pressures over the next several weeks and notify me if he is running higher than 140/90. In that case, we may add some additional medication for blood pressure controland check an ultrasound of his renal arteries for possible stenosis. I will recheck his cholesterol numbers in 6 weeks. If his numbers stay high, we may wish to increase his atorvastatin to 80 mg daily. I will plan to see him back in the office in a year. FELIZ ROY MD, [facility] [place]: Name: ELIJAH BROWN Account: [id number] : 1960 Service Date: 01/30/2020 Document: [id number] Feliz Roy MD - 01/30/2020 2:15 PM CDT HPI and Plan: See dictation Orders Placed This Encounter Procedures ??? Lipid Profile ??? ALT ??? Lipid Profile ??? ALT ??? Basic metabolic panel ??? Hemoglobin A1c ??? Follow-Up with Marinator Orders Placed This Encounter Medications ??? VITAMIN E PO Sig: Take by mouth daily There are no discontinued medications. Encounter Diagnoses Name Primary? Essential hypertension Yes ??? Mixed hyperlipidemia ??? Type 2 diabetes mellitus without complication, without long-term current use of insulin (H) CURRENT MEDICATIONS: Current Outpatient Medications Medication Sig Dispense Refill ??? amLODIPine (NORVASC) 10 MG tablet Take 1 tablet (10 mg) by mouth daily 90 tablet 0 ??? aspirin 81 MG tablet Take 81 mg by mouth daily ??? atorvastatin (LIPITOR) 40 MG tablet Take 1 tablet (40 mg) by mouth daily 90 tablet 0 ??? MAGNESIUM CR OR None Entered ??? [...] on phone: None Gets together: None Attends spiritism service: None Active member of club or organization: None Attends meetings of clubs or organizations: None Relationship status: None ??? Intimate partner violence Fear of current or ex partner: None Emotionally abused: None Physically abused: None Forced sexual activity: None Other Topics Concern ??? Parent/sibling w/ CABG, MS or angioplasty before 65F 55M? No ??? [...] Negative Genitourinary: Negative Musculoskeletal: Positive for arthritis a little Neurologic: Negative Psychiatric: Negative Heme/Lymph/Imm: Negative Endocrine: Negative Physical Exam: Vitals: BP (!) 154/90 Pulse 74 Ht 1.727 m (5' 7.99) Wt 89.5 kg (197 lb 4.8 oz) SpO2 98% BMI 30.01 kg/m?? Constitutional: Skin: Head: Eyes: Lymph: ENT: Neck: Respiratory: Cardiac: GI: Extremities and Muscular Skeletal: Neurological: Psych: CC No referring provider defined for this encounter. documented in this encounter Plan of Treatment Scheduled Referrals Name Type Priority Associated Diagnoses Order S chedule Follow-Up with Referral Routine Mixed hyperlipidemia Expec jacques: 11/30/2021 Marinator (Approximate), Expires: 2022 documented as of this encounter Results Hemoglobin A1c (08/13/2021 7:57 AM CDT) P athologist Signature Hemoglobin A1C 5.6 0.0 - 5.6 08/13/2021 LABORATORY % 9:12 AM CDT Comment: Normal <5.7% Prediabetes 5.7-6.4% ?? Diabetes 6.5% or higher Note: Adopted from ADA consensus guideli grace. Specimen Anatomical Collection Method / Collection Time Recei rehana Time (Source) Location / Volume Laterality Blood STRUCTURE OF RIGHT Venipuncture / 08/13/2021 7:57 07/24 7:58 HAND / Unknown Unknown AM CDT AM CDT Feliz Roy MD LAB - BLOOD ORDERABLES Performing Organization Address City/State/ZIP Code [place] [address] Care Lab [address] Lab (1st floor, no room number) (ABNORMAL) Basic metabolic panel (08/13/2021 7:57 AM CDT) Analysis Performed At Patho logist Time Signature Sodium 136 133 - 144 08/13/2021 LABORATORY mmol/L 9:08 AM CDT Potassium 4.1 3.4 - 5.3 08/13/2021 [facility] LABORATORY mmol/L 9:08 AM CDT Chloride 104 94 - 109 08/13/2021 [facility] LABORATORY mmol/L 9:08 AM CDT Carbon Dioxide [...] Glucose 123 (H) 70 - 99 08/13/2021 LABORATORY mg/dL 9:08 AM CDT GFR Estimate >90 >60 08/13/2021 LABORATORY mL/min/1.7 9:08 AM CDT 3m2 Comment: Effective April 13, 2021 eGF Rcr in adults is calculated using the 2020 CKD-EPI creatinine equation which includ es age and gender (Yuli et al., NEJM, DOI: 10.1056/JYFZpx0058231) Specimen Anatomical Collection Method / Collection Time Recei rehana Time (Source) Location / Volume Laterality Blood STRUCTURE OF RIGHT Venipuncture / 08/13/2021 7:57 04/05/2021 7:58 HAND / Unknown Unknown AM CDT AM CDT Feliz Roy MD LAB - BLOOD ORDERABLES Performing Organization Address City/State/ZIP Code Phon [place] [phone] Care Lab [address] Lab (1st floor, no room number) ALT (08/13/2021 7:57 AM CDT) P athologist Signature ALT 53 0 - 70 U/L 08/13/2021 9:08 [facility] LABORATORY AM CDT Specimen Anatomical Collection Method / Collection Time Recei rehana Time (Source) Location / Volume Laterality Blood STRUCTURE OF RIGHT Venipuncture / 08/13/2021 7:57 07/24 7:58 HAND / Unknown Unknown AM CDT AM CDT Feliz Roy MD LAB - BLOOD ORDERABLES Performing Organization Address City/State/ZIP Code Ph[place] [phone] Care Lab [address] Lab (1st floor, no room number) [...] than or equal to 22 0 mg/dL Feliz Roy MD LAB - BLOOD ORDERABLES Performing Organization Address City/State/ZIP Code [place] [address] Care Lab [address] [facility] Lab (1st floor, no room number) ALT (03/11/2020 2:45 PM MACHINE DESIGNER) athologist Signature ALT 41 0 - 70 U/L 03/11/2020 [facility] NAMED [facility] 3:45 PM [facility] Specimen Anatomical Collection Method Collection Time Receive d Time (Source) Location / / Volume Laterality Blood specimen 03/11/2020 2:45 PM 020 2:48 (specimen) MACHINE DESIGNER PM MACHINE DESIGNER Feliz Roy MD LAB - BLOOD ORDERABLES Performing Organization Address City/[facility]/ZIP [facility] Phon e Number [facility] [address] [place], [place] [address] [facility] [address] [place] [address] [facility] [phone] (ABNORMAL) Lipid Profile (03/11/2020 2:45 PM MACHINE DESIGNER) athologist Signature Cholesterol 213 (H) <200 mg/dL 03/11/2020 [place] 3:46 PM [facility] Comment: Desirable: <200 mg/dl Triglycerides 134 <150 mg/dL 03/11/2020 3:46 PM MACHINE DESIGNER [facility] Comment: Fasting specimen HDL Cholesterol 70 >39 mg/dL 03/11/2020 3:49 PM [facility] LDL Cholesterol 116 (H) <100 mg/dL 03/11/2020 3:[address] [facility] M[facility]INE DESIGNER [facility] Comment: Above desirable: ??100-129 mg/dl Borderline High: ??130-159 mg/dL High: ? 160-189 mg/dL Very high: ? >189 mg/dl Non HDL Cholesterol 143 (H) <130 mg/dL 03/11/2020 3:49 PM MACHINE DESIGNER [facility] Comment: Above Desirable: ??130-159 mg/dl Borderline high: ??160-189 mg/dl High: ? 190-219 mg/dl Very high: ? >219 mg/dl Specimen Anatomical Collection Method Collection Time Receive d Time (Source) Location / / Volume Laterality Blood specimen 03/11/2020 2:45 PM 020 2:48 (specimen) MACHINE DESIGNER PM MACHINE DESIGNER Feliz Roy MD LAB - BLOOD ORDERABLES Performing Organization Address City/State/ZIP Code Phon e Number [facility] [address] [place] [address] [facility] [address] [phone] documented in this encounter Visit Diagnoses Diagnosis Essential hypertension - Primary Unspecified essential hypertension Mixed hyperlipidemia Type 2 diabetes mellitus without complic ation, without long-term current use of insulin (H) documented in this encounter Additional Health Concerns Infection Onset Date Last Indicated Resolved Time MRSA-Contact IsolationComment: 0 04/26/2021 11:03 AM MACHINE DESIGNER Infection 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 Care Teams Building Architectural Designer Relationship Specialty Start Date End Date No Ref-Primary, Physician PCP - General 07/03/14 12/03/21 documented as of this encounter
--- OUTSIDE RECORDS SUMMARY | 2022-02-12 13:47 | XMS_ITS | Encounter Summary ---
:1960 Author Organization [place] Address [facility] [place] [address] Care Team Providers Name Role Phone No Ref-Primary, Physician Primary Care Provider Edilia Trejo APRN DIGGING MACHINE OPERATOR Unavailable Glendy vailable Reason for Visit Reason Onset Date Comments Refill Request 08/05/2021 [facility] Encounter Details Date Type Department Care Team Description 08/05/2021 Refill [facility] Heart Jarrett, Juan Alegre, Refill Request ([facility]) Clinic Annika HERBERT [address] [facility] [address] [facility] [address] [place] [address] [place], [place] [address] (Wo rk) Social History Tobacco Use Types Packs/Day Years Used Date Smoking Tobacco: Never Smokeless Tobacco: Never Alcohol Use Standard Drinks/Week Comments No 0 (1 standard drink = 0.6 oz pure alcoho l) quit 5 years ago Sex Assigned at Date Recorded Not on file documented as of this encounter Miscellaneous Notes Telephone Encounter - Kaelyn Inman RN - 08/05/2021 12:00 PM CDT [facility] Refill Guideline reviewed. Medication meets criteria for refill. documented in this encounter Plan of Treatment Not on filedocumented as of this encounter Visit Diagnoses Diagnosis Essential hypertension Unspecified essential hypertension documented in this encounter Additional Health Concerns Infection Onset Date Last Indicated Resolved Time MRSA 05/13/2021 05/13/2021 documented as of this encounter Care Teams Automobile Rental Clerk Relationship Specialty Start Date End Date No Ref-Primary, Physician PCP - General 07/03/14 12/03/21 Edilia Trejo Assigned Heart and Vascular 08/0108/07/21 ROOSEVELT Chapman DIGGING MACHINE OPERATOR Provider NO INFO AVAILABLE 02/10/2022 documented as of this encounter
--- OUTSIDE RECORDS SUMMARY | 2022-02-12 13:47 | XMS_ITS | Encounter Summary ---
:1960 Author Organization [place] Address [address] [place] [address] Care Team Providers Name Role Phone No Ref-Primary, Physician Primary Care Provider [phone] Denise Connell-C Unavailable [phone] Denise Connell-C Unavailable [phone] Juan Farias MD Primary Care Provider Dana Barry PA-C Unavailable [phone] Reason for Visit Reason Onset Date Comments Patient/info Update 08/12/2021 Pt asked to come in sooner Encounter Details Date Type Department Care Team Description 08/12/2021 Telephone [facility] Juan Farias, Patient/info Update (Pt Clinic Annika HERBERT asked to come in [address] [facility] [address] [facility] soon er) [facility] [address] [place] [address] [place] [address] Social History Tobacco Use Types Packs/Day Years [...] this encounter Miscellaneous Notes Telephone Encounter - Lindsey Esparza 08/12/2021 9:21 AM CDT [facility] Phone Message May a detailed message be left on voicemail: yes Reason for Call: Other: Just an update Marcelino is schedule for his labs Monday at [facility] and a FUw/ RAN per patient request. He stated he needs to be seen BUNNY & Dr Farias is out until Dec at [place]; his BP is 3 points too high for his job. 140/98. Thank you Action Taken: Other: Cardio Travel Screening: Negative documented in this encounter Plan of Treatment Not on filedocumented as of this encounter Visit Diagnoses Not on filedocumented in this encounter Additional Health Concerns Infection Onset Date Last Indicated Resolved Time MRSA 05/13/2021 05/13/2021 Rule Out C-difficile 12/06/2021 12/06/2021 12/07/2021 8:46 AM CDT documented as of this encounter Care Teams Wellness Coach Relationship Specialty Start Date End Date No Ref-Primary, PCP - General 07/03/14 12/03/21 Physician Juan Farias, PCP - General Cardiovascular Disease 12/04/21 [address] [place] [id number] Denise Connell Physician Barrel Raiser Helper Cardiovascular Disease 08/12/21 MARIETTA Watson [address] [place] [address] Denise Connell Assigned Heart and 08/22/21 01/14/22 MARIETTA Watson Vascular Provider [address] [place] [address] Dana Barry Assigned Heart and 01/15/22 MARIETTA Teague Vascular Provider [address] [place] [id number] documented as of this encounter
--- OUTSIDE RECORDS SUMMARY | 2022-02-12 13:47 | XMS_ITS | Encounter Summary ---
:1960 Author Organization [place] Address [address] [place] [address] Care Team Providers Name Role Phone No Ref-Primary, Physician Primary Care Provider [phone] Juan Farias MD Unavailable Reason for Visit Reason Comments Results 02/14/20 renal US Encounter Details Date Type Department Care Team Description 02/17/2020 Care Coordination [facility] Kenzie Kenney (02/14/20 Heart Clinic Annika Hernández RN renal US) [address] [facility] [address] [place] [address] Social History Tobacco Use Types [...] with No / Unsure 02/24/2020 3:19 PM AEROSPACE MECHANIC someone who was confirmed or suspected to have Coronavirus / COVID-19? documented as of this encounter Progress Notes Kenzie Kenney RN - 02/17/2020 5:10 PM CDT Images from the original note were not included. Called and spoke with pt. Discussed that GUILHERME Morales reviewed renal artery US from 02/14/20and it does not show any evidence of renal artery stenosis. Did review there are cysts in the kidneys which GUILHERME Morales recommends he discuss further with his PCP. Pt verbalized understanding and agrees with this plan. Also discussed that GUILHERME Morales recommends he get a BMP done prior to his visit with Dr. Farias on 02/24/20. Pt agrees to fasting lab appt on 02/21/20 at 3:00pm (he was scheduled for FLP/ALT on 03/11/20 so cancelled that appt and will have BMP, FLP and ALT all done on 02/21/20). Pt reports his BP is improving since starting the lozol. He reports his SBP is usually 135 to 140 now. Routed to GUILHERME Morales RN 5:18 PM 02/17/2020 SPACE MECHANIC Edilia Trejo - 02/17/2020 5:10 PM CDT Sounds good SPACE MECHANIC Kenzie Kenney RN - 02/17/2020 5:10 PM CDT Per review of Dr. Farias's note from 01/30/20 visit, plan was to recheck pt's fasting cholesterol labsin 6 weeks from 01/27/20. Therefore, it pt gets cholesterol rechecked on 02/21/20 it will only be a little over 3 weeks since last check. Called pt, no answer, left voicemail explaining above information and reviewed that lab on 02/21/20 will be a non-fasting lab for BMP only and rescheduled lab on 03/11/20 at 3:00pm for fasting cholesterol labs, per Dr. Farias's recommendation. Requested return call to confirm he received voicemail and understands instructions. OZZIE Cook 9:56 AM 02/18/2020 SPACE MECHANIC documented in this encounter Plan of Treatment Not on filedocumented as of this encounter Results Basic metabolic panel (02/21/2020 2:52 PM CDT) P athologist Signature Sodium 134 133 - 144 02/21/2020 [facility] mmol/L 3:51 PM CDT [facility] Potassium 3.4 3.4 - 5.3 02/21/2020 [facility] mmol/L 3:51 PM [facility] Chloride 100 94 - 109 02/21/2020 [facility] mmol/L 3:51 PM [facility] Carbon Dioxide 26 20 - 32 02/21/2020 [facility] mmol/L 3:57 PM [facility] Anion Gap 8 3 - 14 02/21/2020 [facility] mmol/L 3:57 PM [facility] Glucose 95 70 - 99 02/21/2020 [facility] mg/dL 3:57 PM [facility] Urea Nitrogen 13 7 - 30 02/21/2020 [facility] mg/dL 3:57 PM [facility] Creatinine 1.04 0.66 - 02/21/2020 [facility] 1.25 mg/dL 3:57 PM [facility] GFR Estimate 79 >60 02/21/2020 [facility] mL/min/{1. 3:57 PM [facility] 73_m2} HOSPITAL Comment: Non GFR Calc Starting 04/10/2018, serum creatinine ba sed estimated GFR (eGFR) will be calculated using the Chronic Kidney Dise [facility] Epidemiology Collaboration (CKD-EPI) equation. GFR Estimate If >90 >60 mL/min/{1.73_m2} 02/21/2020 3: 57 PM [facility] Comment: GFR Calc Starting 04/10/2018, serum creatinine ba sed estimated GFR (eGFR) will be calculated using the Chronic Kidney Dise [facility] Epidemiology Collaboration (CKD-EPI) equation. Calcium 8.8 8.5 - 10.1 mg/dL 02/21/2020 3:57 PM [facility] Specimen Anatomical Collection Method Collection Time Receive d Time (Source) Location / / Volume Laterality Blood specimen 02/21/2020 2:52 PM 020 2:57 (specimen) CDT PM CDT Edilia Trejo APRN TRACK REPAIR WORKER LAB - BLOOD ORDERA BLES Performing Organization Address City/State/ZIP Code Phon e Number M [facility] [address] [place], [place] [address] [facility] [address] [place], [place] [address] [facility] [phone] documented in this encounter Visit Diagnoses Diagnosis Essential hypertension - Primary Unspecified essential hypertension documented in this encounter Additional Health Concerns Infection Onset Date Last Indicated Resolved Time MRSA-Contact IsolationComment: 0 04/26/2021 11:03 AM AEROSPACE MECHANIC Infection 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 Care Teams Remelt Operator Relationship Specialty Start Date End Date No Ref-Primary, Physician PCP - General 07/03/14 12/03/21 Juan Farias MD Assigned Heart and Vascular 02/14/2010/03 [address] Provider [place] [id number] documented as of this encounter
--- OUTSIDE RECORDS SUMMARY | 2022-02-12 13:47 | XMS_ITS | Encounter Summary ---
:1960 Author Organization [place] Address [address] [place] [address] Care Team Providers Name Role Phone No Ref-Primary, Physician Primary Care Provider [phone] Denise Connell PA-C Unavailable [phone] Encounter Details Date Type Department Care Team Description 08/13/2021 Travel Social History Tobacco Use Types Packs/Day [...] documented as of this encounter Care Teams Plug Maker Relationship Specialty Start Date End Date No Ref-Primary, PCP - General 07/03/14 12/03/21 Physician Denise Connell Physician Brimming Machine Operator Cardiovascular Disease 08/12/21 [facility]TA Watson [address] [facility] [address] [place] [address] documented as of this encounter
--- OUTSIDE RECORDS SUMMARY | 2022-02-12 13:47 | XMS_ITS | Encounter Summary ---
:1960 Author Organization [place] Address [address] [place] [address] Care Team Providers Name Role Phone No Ref-Primary, Physician Primary Care Provider [phone] Juan Farias MD Unavailable Encounter Details Date Type Department Care Team Description 02/14/2020 Travel Social History Tobacco Use Types Packs/Day [...] Time MRSA-Contact IsolationComment: 0 04/26/2021 11:03 AM DELICATE FABRICS PRESSER Infection 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 Care Teams Service Advocate Contact Relationship Specialty Start Date End Date No Ref-Primary, Physician PCP - General 07/03/14 12/03/21 Juan Farias MD Assigned Heart and Vascular 02/14/2010/03 [address] Provider [place] [id number] documented as of this encounter
--- OUTSIDE RECORDS SUMMARY | 2022-02-12 13:47 | XMS_ITS | Encounter Summary ---
:1960 Author Organization [place] Address [address] [place] [address] Care Team Providers Name Role Phone No Ref-Primary, Physician Primary Care Provider Encounter Details Date Type Department Care Team Description 11/29/2018 Orders Only [facility] Heart Hype rlipidemia LDL goal <100; Clinic [facility] Elevated fasting glucose [address] [facility] [address] [place] [address] Social History Tobacco Use Types Packs/Day Years [...] Name Priority Date/Time Associated Diagnosis Comme nts HEMOGLOBIN A1C Routine 11/29/2018 10:00 Elevated fasting Resul ts for this AM CDT glucose procedure are i n the results section. LIPID PROFILE Routine 11/29/2018 9:59 AM Hyperlipidemia LDL Re sults for this CDT goal <100 procedure are i n the results section. ALT Routine 11/29/2018 9:59 AM Hyperlipidemia LDL Res ults for this CDT goal <100 procedure are i n the results section. BASIC METABOLIC Routine 11/29/2018 9:59 AM Hyperlipidemia LDL Results for this PANEL CDT goal <100 procedure are i n the results section. documented in this encounter Results (ABNORMAL) Hemoglobin A1c (11/29/2018 10:00 AM CDT) P athologist Signature Hemoglobin A1C 6.1 (H) 0 - 5.6 % 11/29/2018 [place] 11:22 AM CDT [facility] Comment: Normal <5.7% Prediabetes 5.7-6.4% ??Diab etes 6.5% or higher - adopted from ADA consensus guidelines. Specimen Anatomical Collection Method Collection Time Receive d Time (Source) Location / / Volume Laterality Blood specimen 11/29/2018 10:00 9 (specimen) AM CDT 10:01 AM CDT Juan Farias MD LAB - BLOOD ORDERABLES Performing Organization Address City/State/ZIP Code Phon e Number M [facility] [address] [place] [address] [phone] [facility] [address] [place] [address], U SA [phone] (ABNORMAL) Basic metabolic panel (11/29/2018 9:59 AM CDT) P athologist Signature Sodium 137 136 - 145 11/29/2018 [facility] mmol/L 10:49 AM [facility] Potassium 4.0 3.5 - 5.1 11/29/2018 [facility] mmol/L 10:49 AM T [facility] Chloride 102 98 - 107 11/29/2018 [facility] mmol/L 10:49 AM [facility] Carbon Dioxide 27 23 - 29 11/29/2018 [facility] mmol/L 10:49 AM [facility] Anion Gap 12 6 - 17 11/29/2018 [facility] mmol/L 10:49 AM [facility] Glucose 120 (H) 70 - 105 11/29/2018 [facility] mg/dL 10:49 AM [facility] Comment: Fasting specimen Urea Nitrogen 15 7 - 30 mg/dL 11/29/2018 10:49 AM [facility] Creatinine 1.11 0.70 - 1.30 11/29/2018 10:49 AM [facility] mg/dL [facility] GFR Estimate 69 >60 11/29/2018 10:49 AM [facility] AT mL/min/{1.73_m [facility] 2} GFR Estimate If 83 >60 11/29/2018 10:49 AM [facility] Black mL/min/{1.73_m [facility] 2} Calcium 9.7 8.5 - 10.5 11/29/2018 10:49 AM [facility] AT mg/dL [facility] Specimen Anatomical Collection Method Collection Time Receive d Time (Source) Location / / Volume Laterality Blood specimen 11/29/2018 9:59 AM 019 (specimen) CDT 10:00 AM CDT Juan Farias MD LAB - BLOOD ORDERABLES Performing Organization Address City/State/ZIP Code Phon e Number [facility] [address] [place] [address] [address] (ABNORMAL) Lipid Profile (11/29/2018 9:59 AM CDT) P athologist Signature Cholesterol 145 <200 mg/dL 11/29/2018 [facility] 10:49 AM [facility] Triglycerides 152 (H) <150 mg/dL 11/29/2018 [facility] 10:49 AM [facility] Comment: Fasting specimen Borderline high: ??150-199 mg/dl High: ? 200-499 mg/dl Very high: ? >499 mg/dl HDL Cholesterol 43 >39 mg/dL 11/29/2018 10:49 AM [facility] LDL Cholesterol 72 <100 mg/dL 11/29/2018 10:49 AM [facility] Calculated [facility] Comment: Desirable: <100 mg/dl Non HDL Cholesterol 102 <130 mg/dL 11/29/2018 10:49 AM [facility] Specimen Anatomical Collection Method Collection Time Receive d Time (Source) Location / / Volume Laterality Blood specimen 11/29/2018 9:59 AM 019 (specimen) CDT 10:00 AM CDT Juan Farias MD LAB - BLOOD ORDERABLES Performing Organization Address City/[facility]/ZIP Code Phon e Number [facility] [address] [place] [address] [address] ALT (11/29/2018 9:59 AM CDT) P athologist Signature ALT 13 5 - 30 U/L 11/29/2018 [facility] HEART AT 10:49 AM CDT [facility] Specimen Anatomical Collection Method Collection Time Receive d Time (Source) Location / / Volume Laterality Blood specimen 11/29/2018 9:59 AM 019 (specimen) CDT 10:00 AM CDT Juan Farias MD LAB - BLOOD ORDERABLES Performing Organization Address City/State/ZIP Code Phon e Number [facility] AT [facility] [address] [address] [address] documented in this encounter Visit Diagnoses Diagnosis Hyperlipidemia LDL goal <100 Other and unspecified hyperlipidemia Elevated fasting glucose Impaired fasting glucose documented in this encounter Additional Health Concerns Infection Onset Date Last Indicated Resolved Time MRSA-Contact IsolationComment: 0 04/26/2021 11:03 AM 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
[2022-02-12 13:48] LABS: Alanine Aminotransferase* 49 U/L (4-50); Alkaline Phosphatase* 87 U/L (40-150); Aspartate Amino Transferase* 137 U/L (12-35); Blood Urea Nitrogen* 13 mg/dL (7-30); Calcium* 9.1 mg/dL (8.4-10.6); Glucose* 101 mg/dL (60-115)
--- OUTSIDE RECORDS SUMMARY | 2022-02-12 13:48 | XMS_ITS | Encounter Summary ---
:1960 Author Organization [place] Address [address] [place] [address] Care Team Providers Name Role Phone No Ref-Primary, Physician Primary Care Provider [phone] Reason for Referral - Closed Specialty Diagnoses / Procedures Referred By Contact Refer red To Contact Diagnoses Mixed hyperlipidemia Feliz Roy MD [address] [place] [address] Referral ID Status Reason Start Date Expiration Date Visits Requ ested Visits Authorized [id number] Closed 08/04/2016 08/04/2017 1 1 Reason for Visit Reason Comments Hypertension Annual FU Hyperlipidemia - Closed Specialty Diagnoses / Procedures Referred By Contact Refer red To Contact Diagnoses Mixed hyperlipidemia Feliz Roy MD [address] [place] [address] Referral ID Status Reason Start Date Expiration Date Visits Requ ested Visits Authorized [id number] Closed 07/03/2015 12/30/2015 1 1 Encounter Details Date Type Department Care Team Description 08/05/2015 Office Visit [facility] Feliz Roy, Mixed hyperlipidemia [facility] Annika HERBERT [address] [place] [address] [facility] [address] [place] [address] [place] [address] [phone] Social History Tobacco Use Types Packs/Day Years Used Date Smoking Tobacco: Never Alcohol Use Standard Drinks/Week Comments No 0 (1 standard drink = 0.6 oz pure alcoho l) quit 5 years ago Sex Assigned at Date Recorded Not on file documented as of this encounter Last Filed Vital Signs Vital Sign Reading Time Taken Comments Blood Pressure 102/68 08/05/2015 4:05 PM CDT Pulse 64 08/05/2015 4:05 PM CDT Temperature - - Respiratory Rate - - Oxygen Saturation - - Inhaled Oxygen Concentration - - Weight 99.7 kg (219 lb 12.8 oz) 08/05/2015 4:05 PM CDT Height 172.7 cm (5' 7.99) 08/05/2015 4:05 PM CDT Body Mass Index 33.43 08/05/2015 4:05 PM CDT documented in this encounter Progress Notes Feliz Roy MD - 08/05/2015 4:44 PM CDT HPI and Plan: See dictation Orders Placed This Encounter Procedures ??? Lipid Profile ??? ALT ??? Follow-Up with Oakes Machine Operator No orders of the defined types were placed in this encounter. There are no discontinued medications. Encounter Diagnosis Name Primary? Mixed hyperlipidemia CURRENT MEDICATIONS: Current Outpatient Prescriptions Medication Sig Dispense Refill ??? lisinopril (PRINIVIL,ZESTRIL) 20 MG tablet Take 1 tablet (20 mg) by mouth daily 90 tablet 0 ??? atorvastatin (LIPITOR) 40 MG tablet Take 1 tablet (40 mg) by mouth daily 90 tablet 0 ??? aspirin 81 MG tablet Take 81 mg by mouth daily ??? MAGNESIUM CR OR None Entered ??? OMEPRAZOLE 40 MG OR CPDR 2 tabs PO qday 60 11 ??? MULTI-VITAMIN OR TABS 1 tablet daily ALLERGIES Allergies Allergen Reactions ??? No Known Drug Allergies PAST MEDICAL HISTORY: Past Medical History Diagnosis Date ??? Unspecified essential hypertension ??? Other and unspecified hyperlipidemia ??? Anemia, unspecified ??? Gout 5-2008 left first MTP PAST SURGICAL HISTORY: Past Surgical History Procedure Laterality Date ??? No history of surgery FAMILY HISTORY: Family History Problem Relation Age of Onset ??? Family History Negative ??? Diabetes Father ??? Hypertension Father SOCIAL HISTORY: History Social History ??? Marital Status: Single Spouse Name: N/A Number of Children: N/A ??? Years of Education: N/A Social History Main Topics ??? Smoking status: Never Smoker ??? Smokeless tobacco: None ??? Alcohol Use: No Comment: quit 5 years ago ??? Drug Use: No ??? Sexual Activity: None Other Topics Concern ??? Parent/Sibling W/ Cabg, Mi Or Angioplasty Before 65f 55m? No ??? Caffeine Concern Yes 2 cups daily ??? Weight Concern Yes need to lose weight ??? Special Diet No ??? Exercise Yes work ??? Seat Belt Yes Social History Narrative Review of Systems: Skin: Negative Eyes: Positive for glasses ENT: Negative Respiratory: Negative Cardiovascular: Negative Gastroenterology: Negative Genitourinary: Positive for nocturia Musculoskeletal: Negative Neurologic: Negative Psychiatric: Negative Heme/Lymph/Imm: Negative Endocrine: Negative Physical Exam: Vitals: BP 102/68 mmHg Pulse 64 Ht 1.727 m (5' 7.99) Wt 99.701 kg (219 lb 12.8 oz) BMI 33.43 kg/m2 Constitutional: cooperative, alert and oriented, well developed, well nourished, in no acute distress Skin: warm and dry to the touch, no apparent skin lesions or masses noted Head: normocephalic, no masses or lesions Eyes: pupils equal and round, conjunctivae and lids unremarkable, sclera white, no xanthalasma, EOMSintact, no nystagmus ENT: no pallor or cyanosis, dentition good Neck: carotid pulses are full and equal bilaterally, JVP normal, no carotid bruit, no thyromegaly Chest: normal breath sounds, clear to auscultation, normal A-P diameter, normal symmetry, normal respiratory excursion, no use of accessory muscles Cardiac: regular rhythm, normal S1/S2, no S3 or S4, apical impulse not displaced, no murmurs, gallops or rubs Abdomen: Vascular: pulses full and equal, no bruits auscultated Extremities and Back: no deformities, clubbing, cyanosis, erythema observed;no edema Neurological: affect appropriate, oriented to time, person and place;no gross motor deficits CC Feliz Roy MD [facility] [address] [place] [address] Feliz Roy MD - 08/05/2015 4:44 PM CDT I had the opportunity to see Mr. Kayden Brown in Cardiology Clinic today at the [facility] in [place] for reevaluation of hypertension and dyslipidemia. Fortunately, he has been doing very well with no concerning cardiac symptoms. He denies chest pain, shortness of breath, lightheadedness and syncope issues. 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 He is exercising and trying to stay somewhat fit. PHYSICAL EXAMINATION: His blood pressure is 102/68, heart rate is 64, and weight is 219 pounds. His lungs are clear. His heart rhythm is regular. He has no cardiac murmurs or carotid bruits. IMPRESSIONS: Mr. Kayden Brown is a 54-year-old gentleman with hypertension and hypercholesterolemia. These are both well controlled with medical therapy. His blood pressure is a little bit lower todaythan it usually runs. Typically, it is in the 120s/60s. I will not change his medications. I will have him follow up with me again next year. If he has any concerning symptoms, he will contact me sooner. FELIZ ROY MD, [facility] [place]: keke Name: ELIJAH BROWN MRN: [id number] Account: [id number] : 1960 Service Date: 08/05/2015 Document: [id number] documented in this encounter Plan of Treatment Scheduled Referrals Name Type Priority Associated Diagnoses Order S chedule Follow-Up with Referral Routine Mixed hyperlipidemia Expec jacques: 08/04/2016 Oakes Machine Operator (Approximate), Expires: 2016 documented as of this encounter Results ALT (08/04/2016 7:15 AM CDT) athologist Signature ALT 9 5 - 30 U/L [facility] Specimen Anatomical Collection Method Collection Time Receive d Time (Source) Location / / Volume Laterality Blood specimen 08/04/2016 7:15 AM 017 7:16 (specimen) CDT AM CDT Feliz Roy MD LAB - BLOOD ORDERABLES Performing Organization Address City/[facility]/ZIP Code Phon e Number [facility] [address] [address] [address] Lipid Profile (08/04/2016 7:15 AM CDT) athologist Signature Cholesterol 146 <200 mg/dL [facility] Triglycerides 64 <150 mg/dL [facility] Comment: Fasting specimen HDL Cholesterol 43 >39 mg/dL [facility] LDL Cholesterol Calculated 90 <100 mg/dL [facility] Comment: Desirable: <100 mg/dl Non HDL Cholesterol 103 <130 mg/dL [facility] Specimen Anatomical Collection Method Collection Time Receive d Time (Source) Location / / Volume Laterality Blood specimen 08/04/2016 7:15 AM 017 7:16 (specimen) CDT AM CDT Feliz Roy MD LAB - BLOOD ORDERABLES Performing Organization Address City/[facility]/ZIP Code Phon e Number [facility] [address] [address] [address] documented in this encounter Visit Diagnoses Diagnosis Mixed hyperlipidemia documented in this encounter Additional Health Concerns Infection Onset Date Last Indicated Resolved Time MRSA-Contact IsolationComment: 0 04/26/2021 11:[address] JUDGE Infection 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 Care Teams Utility Tractor Operator Relationship Specialty Start Date End Date No Ref-Primary, Physician PCP - General 07/03/14 12/03/21 documented as of this encounter
--- OUTSIDE RECORDS SUMMARY | 2022-02-12 13:48 | XMS_ITS | Encounter Summary ---
:1960 Author Organization [place] Address [address] [place] [address] Care Team Providers Name Role Phone No Ref-Primary, Physician Primary Care Provider [phone] Reason for Referral - Closed Specialty Diagnoses / Procedures Referred By Contact Refer red To Contact Diagnoses Mixed hyperlipidemia Feliz Roy MD [address] [place] [address] Referral ID Status Reason Start Date Expiration Date Visits Requ ested Visits Authorized [id number] Closed 08/04/2017 08/04/2018 1 1 Reason for Visit Reason Comments Hyperlipidemia - Closed Specialty Diagnoses / Procedures Referred By Contact Refer red To Contact Diagnoses Mixed hyperlipidemia Feliz Roy MD [address] [facility] [address] [place] [address] Referral ID Status Reason Start Date Expiration Date Visits Requ ested Visits Authorized [id number] Closed 08/04/2016 08/04/2017 1 1 Encounter Details Date Type Department Care Team Description 08/04/2016 Office Visit [facility] Feliz Roy Essential hypertension (Primary Dx); Heart Clinic Annika Alegre MD Mixed hyperlipidemia [address] [facility] [address] [facility] [address] [place] [address] [place] [address] [phone] Social History Tobacco Use Types Packs/Day Years Used Date Smoking Tobacco: Never Alcohol Use Standard Drinks/Week Comments No 0 (1 standard drink = 0.6 oz pure alcoho l) quit 5 years ago Sex Assigned at Date Recorded Not on file documented as of this encounter Last Filed Vital Signs Vital Sign Reading Time Taken Comments Blood Pressure 120/70 08/04/2016 8:13 AM CDT Pulse 60 08/04/2016 8:13 AM CDT Temperature - - Respiratory Rate - - Oxygen Saturation - - Inhaled Oxygen Concentration - - Weight 93.4 kg (205 lb 14.4 oz) 08/04/2016 8:13 AM CDT Height 172.7 cm (5' 7.99) 08/04/2016 8:13 AM CDT Body Mass Index 31.32 08/04/2016 8:13 AM CDT documented in this encounter Progress Notes Feliz Roy MD - 08/04/2016 8:44 AM CDT HISTORY OF PRESENT ILLNESS: I had the opportunity to see Mr. Elijah Brown back in Cardiology Clinic today at the [facility] in [place] for reevaluation of hypertension and dyslipidemia. Mr. Brown is a 55-year-old gentleman with no established diagnosis of coronary artery disease in the past who has been on excellent program of medical therapy for his cardiac risk factors forquite a few years. He had some issues with alcohol use a few years ago but now has been sober for 7 years and doing very well with that. He works a lot, about 65 hours a week, which he says keeps him busy and helps him avoid snacking. He has lost 14 pounds since last year, mostly through improvements in his diet. He stopped drinking sugared pop and is now drinking water instead. He has not been experiencing any chest pain, shortness of breath, palpitations, lightheadedness or other concerning cardiac symptoms. We did some laboratory studies today including a cholesterol panel which looks great. His LDL is 90,HDL is 43, total cholesterol 146 with a triglyceride level 64. Liver function tests are now normal. He is taking some Excedrin PM to help him sleep at night which is fine. That has Tylenol and diphenhydramine in it. He will continue to take an 81 mg aspirin daily in the morning. He is also taking some magnesium and potassium supplements to help avoid leg cramps. I suggested we should check a basic metabolic panel today since he is on lisinopril and the potassium levels can be elevated in that situation. PHYSICAL EXAMINATION: Today, his blood pressure is 120/70, heart rate 60 and weight 205 pounds. His lungs are clear. His heart rhythm is regular. He has no cardiac murmurs or carotid bruits. IMPRESSIONS: Mr. Kayden Brown is a 55-year-old gentleman with hypertension and dyslipidemia well managed with medical therapy for quite a few years. He is doing well without any concerning cardiac symptoms. I will have him get a basic metabolic panel done today because of some additional use the potassium and magnesium for prevention of muscle cramping. I just want to make sure his potassium is not high while he is on lisinopril. We will send him a lab letter with all the results. If everything looks normal, will plan on seeing him back again in 1 year for reevaluation. I have refilled his medications. FELIZ ROY MD, [facility] MT: Name: ELIJAH BROWN Account: [id number] : 1960 Service Date: 08/04/2016 Document: [id number] Feliz Roy MD - 08/04/2016 8:15 AM CDT HPI and Plan: See dictation Orders Placed This Encounter Procedures ??? Basic metabolic panel ??? Lipid Profile ??? ALT ??? Follow-Up with Jewel Inserter Orders Placed This Encounter Medications ??? omeprazole (PRILOSEC) 40 MG capsule Sig: Take 40 mg by mouth daily ??? potassium 99 MG TABS Sig: Take 1 tablet by mouth daily ??? atorvastatin (LIPITOR) 40 MG tablet Sig: Take 1 tablet (40 mg) by mouth daily Dispense: 90 tablet Refill: 3 ??? lisinopril (PRINIVIL/ZESTRIL) 20 MG tablet Sig: Take 1 tablet (20 mg) by mouth daily Dispense: 90 tablet Refill: 3 Medications Discontinued During This Encounter Medication Reason ??? OMEPRAZOLE 40 MG OR CPDR Medication Reconciliation Clean Up ??? atorvastatin (LIPITOR) 40 MG tablet Reorder ??? lisinopril (PRINIVIL,ZESTRIL) 20 MG tablet Reorder Encounter Diagnoses Name Primary? Mixed hyperlipidemia ??? Essential hypertension Yes CURRENT MEDICATIONS: Current Outpatient Prescriptions Medication Sig Dispense Refill ??? omeprazole (PRILOSEC) 40 MG capsule Take 40 mg by mouth daily ??? potassium 99 MG TABS Take 1 tablet by mouth daily ??? atorvastatin (LIPITOR) 40 MG tablet Take 1 tablet (40 mg) by mouth daily 90 tablet 3 ??? lisinopril (PRINIVIL/ZESTRIL) 20 MG tablet Take 1 tablet (20 mg) by mouth daily 90 tablet 3 ??? aspirin 81 MG tablet Take 81 mg by mouth daily ??? MAGNESIUM CR OR None Entered ??? MULTI-VITAMIN OR TABS 1 tablet daily ??? [DISCONTINUED] lisinopril (PRINIVIL,ZESTRIL) 20 MG tablet Take 1 tablet (20 mg) by mouth daily 90 tablet 3 ??? [DISCONTINUED] atorvastatin (LIPITOR) 40 MG tablet Take 1 tablet (40 mg) by mouth daily 90 tablet 3 ALLERGIES Allergies Allergen Reactions ??? No Known Drug Allergies PAST MEDICAL HISTORY: Past Medical History: Diagnosis Date ??? Anemia, unspecified ??? Gout -2008 left first MTP ??? Other and unspecified hyperlipidemia ??? Unspecified essential hypertension PAST SURGICAL HISTORY: Past Surgical History: Procedure Laterality Date ??? NO HISTORY OF SURGERY FAMILY HISTORY: Family History Problem Relation Age of Onset ??? DIABETES Father ??? Hypertension Father ??? Family History Negative Other SOCIAL HISTORY: Social History Social History ??? Marital status: Single Spouse name: N/A ??? Number of children: N/A ??? Years of education: N/A Social History Main Topics ??? Smoking status: Never Smoker ??? Smokeless tobacco: None ??? Alcohol use No Comment: quit 5 years ago ??? Drug use: No ??? Sexual activity: Not Asked Other Topics Concern ??? Parent/Sibling W/ Cabg, [...] Negative Endocrine: Negative Physical Exam: Vitals: BP 120/70 Pulse 60 Ht 1.727 m (5' 7.99) Wt 93.4 kg (205 lb 14.4 oz) BMI 31.32 kg/m2 Constitutional: cooperative, alert and oriented, well [...] CC Feliz Roy MD [facility] [address] [place] [address] documented in this encounter Plan of Treatment Scheduled Referrals Name Type Priority Associated Diagnoses Order S chedule Follow-Up with Referral Routine Mixed hyperlipidemia Expec jacques: 08/04/2017 Jewel Inserter (Approximate), Expires: 2017 documented as of this encounter Results (ABNORMAL) Basic metabolic panel (08/04/2016 7:15 AM CDT) [facility] Signature Sodium 138 136 - 145 [facility] mmol/L [facility] A Potassium 5.2 (H) 3.5 - 5.1 [facility] mmol/L [facility] A Chloride 105 98 - 107 [facility] mmol/L [facility] A Carbon Dioxide 26 23 - 29 [facility] mmol/L [facility] A Anion Gap 12.2 6 - 17 [facility] mmol/L [facility] A Glucose 118 (H) 70 - 105 [facility] mg/dL [facility] A Urea Nitrogen 22 7 - 30 [facility] mg/dL [facility] A Creatinine 1.57 (H) 0.70 - [facility] 1.30 mg/dL [facility] A GFR Estimate 46 (L) >60 [facility] mL/min/1.7 [facility] m2 A GFR Estimate If 56 (L) >60 [facility] Black mL/min/1.7 [facility] m2 A Calcium 9.4 8.5 - 10.5 [facility] mg/dL [facility] A Specimen Anatomical Collection Method Collection Time Receive d Time (Source) Location / / Volume Laterality Blood specimen 08/04/2016 7:15 AM 017 8:38 (specimen) CDT AM CDT Feliz Roy MD LAB - BLOOD ORDERABLES Performing Organization Address City/State/ZIP Code Phon e Number [facility] [address] [address] [address] documented in this encounter Visit Diagnoses Diagnosis Essential hypertension - Primary Unspecified essential hypertension Mixed hyperlipidemia documented in this encounter Additional Health Concerns Infection Onset Date Last Indicated Resolved Time MRSA-Contact IsolationComment: 0 04/26/2021 11:03 AM FACTORY HAND Infection 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 Care Teams Pets Salesperson Relationship Specialty Start Date End Date No Ref-Primary, Physician PCP - General 07/03/14 12/03/21 documented as of this encounter
--- OUTSIDE RECORDS SUMMARY | 2022-02-12 13:48 | XMS_ITS | Encounter Summary ---
:1960 Author Organization [facility] Address [address] [place] [address] Care Team Providers Name Role Phone Unavailable Primary Care Provider Unavailable Encounter Details Date Type Department Care Team Description 07/05/2009 Historic Results INTERFACED REPORT Unknown, Provider Social History Tobacco Use Types Packs/Day Years Used Date Smoking Tobacco: Never Alcohol Use Standard Drinks/Week Comments Yes 0 (1 standard drink = 0.6 oz pure alcoho l) socially approx 5 drinks/wk Sex Assigned at Date Recorded Not on file documented as of this encounter Plan of Treatment Not on filedocumented as of this encounter Procedures Procedure Name Priority Date/Time Associated Diagnosis Comme nts PLATELET COUNT Routine 07/05/2009 6:00 AM Results for this CDT procedure are i n the results section . documented in this encounter Results Platelet count (07/05/2009 6:00 AM CDT) P athologist Signature Platelet Count 287 150 - 450 MISYS 10e9/L Specimen (Source) Anatomical Collection Method Collection Time Re ceived Time Location / / Volume Laterality 07/05/2009 6:00 AM 0 CDT Provider Unknown LAB - BLOOD ORDERABLES Performing Organization Address City/State/ZIP Code Phon e Number MISYS documented in this encounter Visit Diagnoses Not on filedocumented in this encounter Additional Health Concerns Infection Onset Date Last Indicated Resolved Time MRSA-Contact IsolationComment: 0 04/26/2021 11:03 AM CLERK STENOGRAPHER Infection 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
--- OUTSIDE RECORDS SUMMARY | 2022-02-12 13:48 | XMS_ITS | Encounter Summary ---
:1960 Author Organization [facility] Address [address] [place] [address] Care Team Providers Name Role Phone Unavailable Primary Care Provider Unavailable Encounter Details Date Type Department Care Team Description 07/04/2009 Historic Notes INTERFACED REPORT Junior Amaya MD [address] [place], [place] [address] (Wo rk) Social History Tobacco Use Types Packs/Day Years Used Date Smoking Tobacco: Never Alcohol Use Standard Drinks/Week Comments Yes 0 (1 standard drink = 0.6 oz pure alcoho l) socially approx 5 drinks/wk Sex Assigned at Date Recorded Not on file documented as of this encounter Progress Notes Junior Amaya - 07/10/2010 8:33 AM CDT Interval History - Interval History: feeling stronger today, denies CP/SOB, reports good appetite. priot to this hospitalization had been able to walk on own, not falling, but since admit can't seems to stand up. denies weakness and pain in back or anyplace. reports sensation intact, c/o Right great toe pain Physical Exam - General: pleasant, nad, looks stated age. A and O x 3, knows Deanna is the president, knows Lisa played for the [employer] last year, had previously been with the [employer] [place] - Head: nc/at - Eyes: sclera clear - Lungs: cta sally nl effort - Cardiovascular: less tachy today - Abdominal/Rectal: soft nt nd - Musculoskeletal: red hot tender R great toe joint - Skin: w/d no c/c - Neuro: bradykinetic facial features, strenght and sensation intact in b UE and LE Vital Signs/Labs/Imaging/Culture Review - Vital Signs: Vital Signs reviewed past 24 hours. - Vital Signs Comments: tachycardia improving, febrile overnight - Lab Results: All lab results reviewed past 24 hours. - Imaging Results: All imaging results reviewed past 24 hours. - Culture Results: All culture results reviewed past 24 hours. Assessment and Plan - Assessment/Plan: 48 yo m admitted secondary to falls while acutely intoxicated 1. Alcohol intoxication: resolved, needs treatment of some kind. sister already discussing it with [facility] 2. alcohol withdrawal: mostly resolved 3. cognitive deficits: ? 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 cognitive eval by OT 4. Neurologically: likely with etoh cerebellar dysfxn ? permanent, ? underlying acquired parkinsonian syndrome. PT eval. 5. diarrhea: likely just w/d related but will ck C diff given hx 6. tachycardia: better on higher dose BB, likely chronic ? inappropriate tachycardia and also influenced by etoh w/d recent stress, no evidence of hyperthyroidism, not dehydrated anymore 7. alcoholic hepatitis: persistant 8. thrombocytopenia resolved, also likely related to etoh 9. PPX: enox 10. Dispo: to floor today Signatures JUNIOR AMAYA)[Signed 17:16] Authored: Interval History, Physical Exam, Vital Signs/Labs/Imaging/Culture Review, Assessment and Plan documented in this encounter Plan of Treatment Not on filedocumented as of this encounter Visit Diagnoses Not on filedocumented in this encounter Additional Health Concerns Infection Onset Date Last Indicated Resolved Time MRSA-Contact IsolationComment: 0 04/26/2021 11:03 AM ACCOUNTING SUPPORT SPECIALIST Infection 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
--- OUTSIDE RECORDS SUMMARY | 2022-02-12 13:48 | XMS_ITS | Encounter Summary ---
:1960 Author Organization [facility] Address [address] [place] [address]. [place] [address] Care Team Providers Name Role Phone No Ref-Primary, Physician Primary Care Provider Reason for Visit Reason Onset Date Comments Refill Request 09/02/2015 Lipitor, Lisinopril OV 07/2015 Encounter Details Date Type Department Care Team Description 09/02/[address] [facility] Heart Juan Farias, Refill Request (Lipitor, Clinic [place] HERBERT Lisinopril OV 07/2015) [address] [place] [address] [place] [id number] (Wo rk) Social History Tobacco Use Types Packs/Day Years Used Date Smoking Tobacco: Never Alcohol Use Standard Drinks/Week Comments No 0 (1 standard drink = 0.6 oz pure alcoho l) quit 5 years ago Sex Assigned at Date Recorded Not on file documented as of this encounter Plan of Treatment Not on filedocumented as of this encounter Visit Diagnoses Diagnosis HTN (hypertension) - Primary Unspecified essential hypertension Mixed hyperlipidemia documented in this encounter Additional Health Concerns Infection Onset Date Last Indicated Resolved Time MRSA-Contact IsolationComment: 0 04/26/2021 11:03 AM SENIOR ADVISORY Infection 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 Care Teams Director Of Assessing Relationship Specialty Start Date End Date No Ref-Primary, Physician PCP - General 07/03/14 12/03/21 documented as of this encounter
--- OUTSIDE RECORDS SUMMARY | 2022-02-12 13:48 | XMS_ITS | Encounter Summary ---
:1960 Author Organization [facility] Address [facility] [place] [address] Care Team Providers Name Role Phone No Ref-Primary, Physician Primary Care Provider Reason for Visit Reason Comments Annual Visit hypertension and dyslipidem ia FU Cardiac testing lab - Closed Specialty Diagnoses / Procedures Referred By Contact Refer red To Contact Diagnoses Mixed hyperlipidemia Feliz Roy MD [address] [place] [address] Referral ID Status Reason Start Date Expiration Date Visits Requ ested Visits Authorized [id number] Closed 08/04/2017 08/04/2018 1 1 Encounter Details Date Type Department Care Team Description 09/15/2017 Office Visit [facility] Feliz Roy Mixed hype rlipidemia (Primary Dx); Heart Clinic [place] Alegre MD Benign essential hypertension; [address] [facility] [address] Elevat ed fasting glucose [facility] [address] [place] [phone] [place] [id number] Social History Tobacco Use Types Packs/Day Years Used Date Smoking Tobacco: Never Smokeless Tobacco: Never Alcohol Use Standard Drinks/Week Comments No 0 (1 standard drink = 0.6 oz pure alcoho l) quit 5 years ago Sex Assigned at Date Recorded Not on file documented as of this encounter Last Filed Vital Signs Vital Sign Reading Time Taken Comments Blood Pressure 122/82 09/15/2017 8:35 AM CDT Pulse 72 09/15/2017 8:35 AM CDT Temperature - - Respiratory Rate - - Oxygen Saturation - - Inhaled Oxygen Concentration - - Weight 94.9 kg (209 lb 3.2 oz) 09/15/2017 8:35 AM CDT Height 172.7 cm (5' 7.99) 09/15/2017 8:35 AM CDT Body Mass Index 31.82 09/15/2017 8:35 AM CDT documented in this encounter Progress Notes Feliz Roy MD - 09/15/2017 10:18 AM CDT Service Date: 09/15/2017 HISTORY OF PRESENT ILLNESS: I had the opportunity to see Mr. Elijah Brown in Cardiology Clinic today at the [facility] in [place] for re-evaluation of hypertension and dyslipidemia. In the past, he had an elevated hemoglobin A1c in 2006, but was drinking alcohol excessively at the time. Since then, he has abstained from alcohol use entirely and been much more healthy, with significant weight loss. He does have a family history of type 2 diabetes, but we have not seen any significant issues related to diabetes recently. However, today's blood tests do suggest an elevated glucose level of 126 on a semi-fasting sample. He admits that he has been eating some tic tacs before gett ing his blood drawn which may elevate his blood sugar level. Otherwise, his cholesterol panel continues to look great for primary prevention and his blood pressures are good. He is keeping his weight down. He is still working 65 hours a week, but finally taking some time off this week to go fishing. He has had elevated kidney function tests in the past with a creatinine up to 1.57 and potassium of 5.2 while on lisinopril. We stopped lisinopril and started amlodipine 10 mg a day for his blood pressure. That seems to be working well for his blood pressure and is not causing any edema problems. He remains on atorvastatin 40 mg daily for his cholesterol. On examination here today, his blood pressure is 122/82, heart rate 72 and weight 209 pounds. His lungs are clear. His heart rhythm is regular. There is no cardiac murmurs or carotid bruits. IMPRESSIONS: Mr. Elijah Brown is a 56-year-old gentleman with hypertension, dyslipidemia and a mildly elevated fasting glucose level. His hypertension and dyslipidemia are well controlled with medical therapy, although we had to discontinue lisinopril due to problems with developing renal failure and hyperkalemia. Fortunately, his renal function normalized on amlodipine and his blood pressure is well controlled on that dose of medication. I will have him follow up with a hemoglobin A1c level in 1 month in the [facility] and get back to him about that result. If his hemoglobin A1c is greater than 7, I will refer him on to a diabetic specialist. If not, we will encourage him to continue proper dietary treatment of prediabetes or diabetes and monitor that issue periodically. Fortunately, he does not seem to have any concerning cardiac symptoms at this point such as chest discomfort, shortness of breath, palpitations, lightheadedness or edema. I will plan to see him back again in 1 year. FELIZ ROY MD, [facility] MT: NARESH Name: ELIJAH BROWN Account: [id number] : 1960 Service Date: 09/15/2017 Document: [id number] Feliz Roy MD - 09/15/2017 9:45 AM CDT HPI and Plan: See dictation Orders Placed This Encounter Procedures ??? Basic metabolic panel ??? Lipid Profile ??? ALT ??? Hemoglobin A1c ??? Hemoglobin A1c ??? Follow-Up with Aerial Photogrammetrist No orders of the defined types were placed in this encounter. There are no discontinued medications. Encounter Diagnoses Name Primary? Mixed hyperlipidemia Yes ??? Benign essential hypertension ??? Elevated fasting glucose CURRENT MEDICATIONS: Current Outpatient Prescriptions Medication Sig Dispense Refill ??? amLODIPine (NORVASC) [...] Never Smoker ??? Smokeless tobacco: Never Used ??? Alcohol use No Comment: quit 5 [...] Systems: Skin: Negative Eyes: Positive for glasses driving ENT: Negative Respiratory: Negative Cardiovascular: Negative Gastroenterology: Negative Genitourinary: Negative Musculoskeletal: Positive for arthritis;joint pain Neurologic: Negative Psychiatric: Negative Heme/Lymph/Imm: Positive for allergies seasonal Endocrine: Negative Physical Exam: Vitals: BP 122/82 Pulse 72 Ht 1.727 m (5' 7.99) Wt 94.9 kg (209 lb 3.2 oz) BMI 31.82 kg/m2 Constitutional: cooperative, alert and oriented, well [...] Psych: Alert and Oriented x 3 CC Feliz Roy MD [address] [place] [address] documented in this encounter Plan of Treatment Not on filedocumented as of this encounter Results (ABNORMAL) Hemoglobin A1c (11/29/2018 10:00 AM CDT) athologist Signature Hemoglobin A1C 6.1 (H) 0 - 5.6 % 11/29/2018 CAMANCHE 11:22 AM CDT [facility] Comment: Normal <5.7% Prediabetes 5.7-6.4% ??Diab etes 6.5% or higher - adopted from ADA consensus guidelines. Specimen Anatomical Collection Method Collection Time Receive d Time (Source) Location / / Volume Laterality Blood specimen 11/29/2018 10:00 9 (specimen) AM CDT 10:01 AM CDT Feliz Roy MD LAB - BLOOD ORDERABLES Performing Organization Address City/State/ZIP Code Phon e Number M [facility] [address] [place] [address] [phone] [facility] [address] [place] [address], [facility] [phone] (ABNORMAL) Hemoglobin A1c (09/27/2017 3:21 PM CDT) athologist Signature Hemoglobin A1C 6.1 (H) 0 - 5.6 % 09/27/2017 CAMANCHE 3:55 PM CDT [facility] Comment: Normal <5.7% Prediabetes 5.7-6.4% ??Diab etes 6.5% or higher - adopted from ADA consensus guidelines. Specimen Anatomical Collection Method Collection Time Receive d Time (Source) Location / / Volume Laterality Blood specimen 09/27/2017 3:21 PM 018 3:26 (specimen) CDT PM CDT Feliz Roy MD LAB - BLOOD ORDERABLES Performing Organization Address City/State/ZIP Code Phon e Number M [facility] [address] [place], [place] [address] [facility] [address] [place], [place] [address] [phone] documented in this encounter Visit Diagnoses Diagnosis Mixed hyperlipidemia - Primary Benign essential hypertension Essential hypertension, benign Elevated fasting glucose Impaired fasting glucose documented in this encounter Additional Health Concerns Infection Onset Date Last Indicated Resolved Time MRSA-Contact IsolationComment: 0 04/26/2021 11:03 AM GRANT OFFICER Infection 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 Care Teams Cow Tester Relationship Specialty Start Date End Date No Ref-Primary, Physician PCP - General 07/03/14 12/03/21 documented as of this encounter
--- OUTSIDE RECORDS SUMMARY | 2022-02-12 13:48 | XMS_ITS | Encounter Summary ---
:1960 Author Organization [facility] Address [facility] [place] [address] Care Team Providers Name Role Phone No Ref-Primary, Physician Primary Care Provider [phone] Reason for Referral - Closed Specialty Diagnoses / Procedures Referred By Contact Refer red To Contact Diagnoses Mixed hyperlipidemia Feliz Roy MD [address] [place] [address] Referral ID Status Reason Start Date Expiration Date Visits Requ ested Visits Authorized [id number] Closed 07/03/2015 12/30/2015 1 1 Reason for Visit Reason Comments Heart Problem annual f/u with Dr. Roy. H X of HTN, hypercholesterolemia Results labs today Encounter Details Date Type Department Care Team Description 07/03/2014 Office Visit [facility] Feliz Roy Mixed hype rlipidemia (Primary Dx); Heart Clinic Annika Alegre MD Hyperlipidemia LDL goal <100; [address] [place]; [address] Unspecified essential hypertension [place] [address] [place] [address] [phone] Social History Tobacco Use Types Packs/Day Years Used Date Smoking Tobacco: Never Alcohol Use Standard Drinks/Week Comments No 0 (1 standard drink = 0.6 oz pure alcoho l) quit 5 years ago Sex Assigned at Date Recorded Not on file documented as of this encounter Last Filed Vital Signs Vital Sign Reading Time Taken Comments Blood Pressure 118/66 07/03/2014 10:18 AM CDT Pulse 72 07/03/2014 10:18 AM CDT Temperature - - Respiratory Rate - - Oxygen Saturation - - Inhaled Oxygen Concentration - - Weight 98.4 kg (217 lb) 07/03/2014 10:18 AM CDT Height 172.7 cm (5' 8) 07/03/2014 10:18 AM CDT Body Mass Index 32.99 07/03/2014 10:18 AM CDT documented in this encounter Progress Feliz Hough MD - 07/03/2014 11:02 AM CDT HPI and Plan: See dictation Orders Placed This Encounter Procedures ??? Lipid Profile ??? ALT ??? Follow-Up with Shirt Presser Orders Placed This Encounter Medications ??? aspirin 81 MG tablet Sig: Take 81 mg by mouth daily ??? lisinopril (PRINIVIL,ZESTRIL) 20 MG tablet Sig: Take 1 tablet (20 mg) by mouth daily Dispense: 90 tablet Refill: 3 ??? atorvastatin (LIPITOR) 40 MG tablet Sig: Take 1 tablet (40 mg) by mouth daily Dispense: 90 tablet Refill: 3 Medications Discontinued During This Encounter Medication Reason ??? lisinopril (PRINIVIL,ZESTRIL) 20 MG tablet Reorder ??? atorvastatin (LIPITOR) 40 MG tablet Reorder Encounter Diagnoses Name Primary? Mixed hyperlipidemia Yes ? ? Hyperlipidemia LDL goal <100 ??? ANEMIA NOS ??? Unspecified essential hypertension CURRENT MEDICATIONS: Current Outpatient Prescriptions Medication Sig Dispense Refill ??? aspirin 81 MG tablet Take 81 mg by mouth daily ??? lisinopril (PRINIVIL,ZESTRIL) 20 MG tablet Take 1 tablet (20 mg) by mouth daily 90 tablet 3 ??? atorvastatin (LIPITOR) 40 MG tablet Take [...] unspecified hyperlipidemia ??? Anemia, unspecified ??? Gout -2008 left first MTP PAST SURGICAL HISTORY: Past [...] Sexual Activity: None Other Topics Concern ??? Caffeine Concern Yes 2 cups daily ??? Special Diet No ??? Exercise Yes work ??? Seat Belt Yes Social History Narrative Review of Systems: Skin: Negative Eyes: Negative ENT: Negative Respiratory: Negative Cardiovascular: Negative;palpitations;chest pain;edema;lightheadedness;dizziness;fatigue Gastroenterology: Positive for heartburn;reflux Genitourinary: Positive for nocturia Musculoskeletal: Negative Neurologic: Negative Psychiatric: Negative Heme/Lymph/Imm: Negative Endocrine: Negative Physical Exam: Vitals: BP 118/66 Pulse 72 Ht 1.727 m (5' 8) Wt 98.431 kg (217 lb) BMI 33.00 kg/m2 Constitutional: cooperative, alert and oriented, well [...] person and place;no gross motor deficits CC No referring provider defined for this encounter. Feliz Roy MD - 07/03/2014 11:01 AM CDT HISTORY OF PRESENT ILLNESS: I had the opportunity to see Mr. Kayden Brown in Cardiology Clinic today for re-evaluation of hypertension and dyslipidemia. I have been seeing him for a number of years for management of his cardiac risk factors. Since he quit drinking alcohol about 5 years ago, he has gained a fair amount of weight. His weight was typically in the 170 range and has climbed up to about 217. He is not too concerned about that, but I urged him to keep an eye on that and make sure that he is eating well and getting his exercise. Otherwise, he is not having any specific problems. He has noshortness of breath or chest discomfort. He feels very good. He is tolerating his medications well. His cholesterol numbers today are excellent and his blood pressure is under good control. PHYSICAL EXAMINATION: VITAL SIGNS: His blood pressure is 118/66, heart rate 72 and weight 217 pounds. His examination is normal. IMPRESSION: Mr. Kayden Brown is a 53-year-old gentleman with hypertension and dyslipidemia, which are both under good control on medical therapy. I am pleased that everything is going well for him today with his current medication program and I will not make any changes. I urged him to contact me if he has any concerning cardiac symptoms. He will be more active now with the warm weather starting back up again and hopefully get his weight under good control. I will see him again next year for reevaluation of these issues. Feliz Roy MD, FACC FELIZ ROY MD, FACC MT: GF Name: ELIJAH BROWN Account: [id number] : 1960 Service Date: 07/03/2014 Document: [id number] documented in this encounter Plan of Treatment Scheduled Referrals Name Type Priority Associated Diagnoses Order S chedule Follow-Up with Referral Routine Mixed Hyperlipidemia Expec jacques: 08/05/2015 Shirt Presser (Approximate), Expires: 2015 documented as of this encounter Results ALT (08/05/2015 3:11 PM CDT) athologist Signature ALT 6 5 - 30 U/L [facility] Specimen Anatomical Collection Method Collection Time Receive d Time (Source) Location / / Volume Laterality Blood specimen 08/05/2015 3:11 PM 016 3:12 (specimen) CDT PM CDT Feliz Roy MD LAB - BLOOD ORDERABLES Performing Organization Address City/[facility]/ZIP Code Phon e Number [facility] [address] [place] [address] [address] (ABNORMAL) Lipid Profile (08/05/2015 3:11 PM CDT) athologist Signature Cholesterol 163 <200 mg/dL [facility] Triglycerides 145 <150 mg/dL [facility] Comment: Fasting specimen HDL Cholesterol 39 (L) >39 mg/dL [facility] LDL Cholesterol Calculated 95 <100 mg/dL [facility] Comment: Desirable: <100 mg/dl Non HDL Cholesterol 124 <130 mg/dL [facility] Specimen Anatomical Collection Method Collection Time Receive d Time (Source) Location / / Volume Laterality Blood specimen 08/05/2015 3:11 PM 016 3:12 (specimen) CDT PM CDT Feliz Roy MD LAB - BLOOD ORDERABLES Performing Organization Address City/State/ZIP Code Phon e Number [facility] [address] [place] [address] [address] documented in this encounter Visit Diagnoses Diagnosis Mixed hyperlipidemia - Primary Hyperlipidemia LDL goal <100 Other and unspecified hyperlipidemia [place]EM[place] NOS Anemia, unspecified Unspecified essential hypertension documented in this encounter Additional Health Concerns Infection Onset Date Last Indicated Resolved Time MRSA-Contact IsolationComment: 0 04/26/2021 11:03 AM DIRECTOR OF ASSESSMENT Infection 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 Care Teams Trans Router Relationship Specialty Start Date End Date No Ref-Primary, Physician PCP - General 07/03/14 12/03/21 documented as of this encounter
--- OUTSIDE RECORDS SUMMARY | 2022-02-12 13:48 | XMS_ITS | Encounter Summary ---
:1960 Author Organization [facility] Address [address] [place] [address] Care Team Providers Name Role Phone Unavailable Primary Care Provider Unavailable Encounter Details Date Type Department Care Team Description 07/07/2009 Historic Notes INTERFACED REPORT Interface, Transcript onMD Social History Tobacco Use Types Packs/Day Years Used Date Smoking Tobacco: Never Alcohol Use Standard Drinks/Week Comments Yes 0 (1 standard drink = 0.6 oz pure alcoho l) socially approx 5 drinks/wk Sex Assigned at Date Recorded Not on file documented as of this encounter Progress Notes Interface, Still Operator Gin - 07/10/2010 8:22 AM CDT Discharge Summary - Reason for Discharge Discharge from facility, To home - Progress toward Goals met, see daily notes for details. pt not achieving short term seen by documenting therapist. Info per chart. goals/half-way goals Signatures Kimberly Braden (PT)[Signed 07:36] Authored: Discharge Summary Co Signer: Discharge Summary Joan Blackburn (PT Surgical Clinical Reviewer)[Signed 15:41] Authored: Discharge Summary documented in this encounter Plan of Treatment Not on filedocumented as of this encounter Visit Diagnoses Not on filedocumented in this encounter Additional Health Concerns Infection Onset Date Last Indicated Resolved Time MRSA-Contact IsolationComment: 0 04/26/2021 11:03 AM TEAM GUIDE Infection 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
--- OUTSIDE RECORDS SUMMARY | 2022-02-12 13:48 | XMS_ITS | Encounter Summary ---
:1960 Author Organization [place] Address [address] [place] [address] Care Team Providers Name Role Phone No Ref-Primary, Physician Primary Care Provider Encounter Details Date Type Department Care Team Description 08/12/2016 Orders Only [facility] Heart De[facility] gn essential [facility] [place] hypertension [address] [facility] [address] [place] [address] Social History Tobacco Use [...] Associated Diagnosis Comme nts BASIC METABOLIC Routine 08/12/2016 3:03 PM Benign essential Re sults for this PANEL CDT hypertension procedure are i n the results section. documented in this encounter Results (ABNORMAL) Basic metabolic panel (08/12/2016 3:03 PM CDT) Analysis Performed At Patho logist Time Signature Sodium 137 133 - 144 [place] mmol/L [facility] Potassium 4.0 3.4 - 5.3 [place] mmol/L [facility] Chloride 104 94 - 109 [place] mmol/L [facility] Carbon Dioxide 26 20 - 32 [place] mmol/L [facility] Anion Gap 7 3 - 14 [place] mmol/L [facility] Glucose 88 70 - 99 [place] mg/dL [facility] Urea Nitrogen 19 7 - 30 [place] mg/dL [facility] Creatinine 1.31 (H) 0.66 - [facility] 1.25 mg/dL [facility] GFR Estimate 57 (L) >60 [place] mL/min/1.7 [facility] m2 [facility] Comment: Non GFR Calc GFR Estimate If Black 69 >60 mL/min/1.7m2 F [facility] Comment: GFR Calc Calcium 9.0 8.5 - 10.1 mg/dL [facility] Specimen Anatomical Collection Method Collection Time Receive d Time (Source) Location / / Volume Laterality Blood specimen 08/12/2016 3:03 PM 017 3:04 (specimen) CDT PM CDT Juan Farias MD LAB - BLOOD ORDERABLES Performing Organization Address City/State/ZIP Code Phon e Number [place] [address] [address] [place] [address] [facility] [address] [phone] documented in this encounter Visit Diagnoses Diagnosis Benign essential hypertension Essential hypertension, benign documented in this encounter Additional Health Concerns Infection Onset Date Last Indicated Resolved Time MRSA-Contact IsolationComment: 0 04/26/2021 11:03 AM SAS ETL DEVELOPER Infection 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 Care Teams Environmental Auditor Relationship Specialty Start Date End Date No Ref-Primary, Physician PCP - General 07/03/14 12/03/21 documented as of this encounter
--- OUTSIDE RECORDS SUMMARY | 2022-02-12 13:48 | XMS_ITS | Encounter Summary ---
:1960 Author Organization [place] Address [address] [place] [address]. [place] [address] Care Team Providers Name Role Phone No Ref-Primary, Physician Primary Care Provider Encounter Details Date Type Department Care Team Description 11/27/2018 Orders Only [facility] Rafaela Florentino Hyperl ipidemia LDL goal Heart [facility] Idris Mora RN <100 (Primary Dx) [address] [facility] [address] [place] [address] Social History Tobacco Use Types Packs/Day Years Used Date Smoking Tobacco: Never Smokeless Tobacco: Never Alcohol Use Standard Drinks/Week Comments No 0 (1 standard drink = 0.6 oz pure alcoho l) quit 5 years ago Sex Assigned at Date Recorded Not on file documented as of this encounter Plan of Treatment Not on filedocumented as of this encounter Results ALT (11/29/2018 9:59 AM CDT) athologist Signature ALT 13 5 - 30 U/L 11/29/2018 [facility] HEART AT 10:49 AM CDT [facility] Specimen Anatomical Collection Method Collection Time Receive d Time (Source) Location / / Volume Laterality Blood specimen 11/29/2018 9:59 AM 019 (specimen) CDT 10:00 AM CDT Juan Farias MD LAB - BLOOD ORDERABLES Performing Organization Address City/State/ZIP Code Phon e Number [facility] HEART AT [facility] [address] [facility] [place] [address] [address] (ABNORMAL) Lipid Profile (11/29/2018 9:59 AM CDT) athologist Signature Cholesterol 145 <200 mg/dL 11/29/2018 [facility] HEART AT 10:49 AM CDT [facility] Triglycerides 152 (H) <150 mg/dL 11/29/2018 [facility] AT 10:49 AM [facility] Comment: Fasting specimen Borderline high: ??150-199 mg/dl High: ? 200-499 mg/dl Very high: ? >499 mg/dl HDL Cholesterol 43 >39 mg/dL 11/29/2018 10:49 AM [facility] LDL Cholesterol 72 <100 mg/dL 11/29/2018 10:49 AM [facility] AT Calculated [facility] Comment: Desirable: <100 mg/dl Non HDL Cholesterol 102 <130 mg/dL 11/29/2018 10:49 AM P HEART AT [facility] Specimen Anatomical Collection Method Collection Time Receive d Time (Source) Location / / Volume Laterality Blood specimen 11/29/2018 9:59 AM 019 (specimen) CDT 10:00 AM CDT Juan Farias MD LAB - BLOOD ORDERABLES Performing Organization Address City/State/ZIP Code Phon e Number [facility] [address] [place] [address] [address] (ABNORMAL) Basic metabolic panel (11/29/2018 9:59 AM CDT) P athologist Signature Sodium 137 136 - 145 11/29/2018 [facility] AT mmol/L 10:49 AM [facility] Potassium 4.0 3.5 - 5.1 11/29/2018 [facility] AT mmol/L 10:49 AM T [facility] Chloride 102 98 - 107 11/29/2018 [facility] AT mmol/L 10:49 AM T [facility] Carbon Dioxide 27 23 - 29 11/29/2018 [facility] AT mmol/L 10:49 AM T [facility] Anion Gap 12 6 - 17 11/29/2018 [facility] AT mmol/L 10:49 AM [facility] Glucose 120 (H) 70 - 105 11/29/2018 [facility] AT mg/dL 10:49 AM [facility] Comment: Fasting specimen Urea Nitrogen 15 7 - 30 mg/dL 11/29/2018 10:49 AM [facility] Creatinine 1.11 0.70 - 1.30 11/29/2018 10:49 AM [facility]A RT AT mg/dL T [facility] GFR Estimate 69 >60 11/29/2018 10:49 AM [facility] RT AT mL/min/{1.73_m T [facility] 2} GFR Estimate If 83 >60 11/29/2018 10:49 AM [facility] AT Black mL/min/{1.73_m CDT [facility]} Calcium 9.7 8.5 - 10.5 11/29/2018 10:49 AM [facility] AT mg/dL [facility] Specimen Anatomical Collection Method Collection Time Receive d Time (Source) Location / / Volume Laterality Blood specimen 11/29/2018 9:59 AM 019 (specimen) CDT 10:00 AM CDT Juan Farias MD LAB - BLOOD ORDERABLES Performing Organization Address City/State/ZIP Code Phon e Number [facility] [address] [place] [address] [address] documented in this encounter Visit Diagnoses Diagnosis Hyperlipidemia LDL goal <100 - Primary Other and unspecified hyperlipidemia documented in this encounter Additional Health Concerns Infection Onset Date Last Indicated Resolved Time MRSA-Contact IsolationComment: 0 04/26/2021 11:03 AM 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
--- OUTSIDE RECORDS SUMMARY | 2022-02-12 13:48 | XMS_ITS | Encounter Summary ---
:1960 Author Organization [place] Address [address] [place] [address] Care Team Providers Name Role Phone No Ref-Primary, Physician Primary Care Provider Encounter Details Date Type Department Care Team Description 08/29/2016 Telephone [facility] Daryl Medina RN [place] [address] [facility] [address] [place] [address] Social History Tobacco Use Types Packs/Day Years Used Date Smoking Tobacco: Never Alcohol Use Standard Drinks/Week Comments No 0 (1 standard drink = 0.6 oz pure alcoho l) quit 5 years ago Sex Assigned at Date Recorded Not on file documented as of this encounter Miscellaneous Notes Telephone Encounter - Raghu Shultz, RN - 09/01/2016 3:52 PM CDT Phone call to patient to inform him that Dr. Farias just responded to his BP concerns and does recommend he increase the amlodipine to 10 MG daily. He said that he did this about 3-4 days ago and his BPhas come down to the 130 range. He will keep monitoring and will let us know if it starts to trend >140 consistently. I will send in a new Rx for amlodipine 10 MG. [place] Telephone Encounter - Juan Farias MD - 09/01/2016 3:30 PM CDT Yes. Increase amlodipine to 10 mg daily. Thanks. EE Telephone Encounter - Angelica Medina RN - 08/29/2016 4:51 PM CDT Patient states since he has stopped lisinopril and started Amlodipine 5mg his BP readings have been higher than normal. He takes his medication in AM and BP in the afternoon evening. BP range Systolic 137-147 and diastolic 84-85 and pulse 75. Will send message to Dr. Farias to review and advise. Telephone Encounter - Angelica Medina RN - 08/29/2016 10:12 AM CDT Left message to return call documented in this encounter Plan of Treatment Not on filedocumented as of this encounter Visit Diagnoses Diagnosis HTN (hypertension) - Primary Unspecified essential hypertension documented in this encounter Additional Health Concerns Infection Onset Date Last Indicated Resolved Time MRSA-Contact IsolationComment: 0 04/26/2021 11:03 AM CENTRAL STERILE 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 Care Teams Tenter Relationship Specialty Start Date End Date No Ref-Primary, Physician PCP - General 07/03/14 12/03/21 documented as of this encounter
--- OUTSIDE RECORDS SUMMARY | 2022-02-12 13:48 | XMS_ITS | Encounter Summary ---
:1960 Author Organization [place] Address [facility] [place] [address] Care Team Providers Name Role Phone No Ref-Primary, Physician Primary Care Provider [phone] Juan Farias MD Unavailable Edilia Trejo APRN DRILLING MACHINE OPERATOR Unavailable Glendy vailable Juan Fairas MD Unavailable Denise Connell-C Unavailable [phone] Edilia Trejo APRN DRILLING MACHINE OPERATOR Unavailable Glendy vailable Denise Connell-C Unavailable [phone] Juan Farias MD Primary Care Provider Dana Barry PA-C Unavailable [phone] Encounter Details Date Type Department Care Team Description 06/05/2013 Office Visit-[facility] Juan Farias MD [address] [place] [address] [place] [address] [phone] Social History Tobacco Use Types Packs/Day Years Used Date Smoking Tobacco: Never Alcohol Use Standard Drinks/Week Comments Yes 0 (1 standard drink = 0.6 oz pure alcoho l) socially approx 5 drinks/wk Sex Assigned at Date Recorded Not on file documented as of this encounter Progress Notes Juan Farias MD - 06/06/2013 3:04 PM CST Progress Note Created by: Juan Farias M.D. DATE: 06/05/2013 ELIJAH BROWN DATE OF : 1960 AGE: [age] years old Referring Physician: JEROME MORENO Referring Clinic: [facility] CURRENT DIAGNOSES 1. - Hypertension, benign, 401.1 2. - Hypercholesterolemia, 272.0 ALLERGIES NKA MEDICATIONS (prior to changes made today) 1. Aspirin Low Dose 81 mg tablet,delayed release (DR/EC), 1 p.o. daily 2. atorvastatin 40 mg tablet, 1 p.o. daily 3. Calcium 600 Mg, 1 p.o. daily 4. Fish Oil 1,000 mg capsule, 2 p.o. daily 5. lisinopril 20 mg tablet, 1 p.o. daily 6. Magnesium -, 1 p.o. daily 7. Multi-vitamin W/minerals Capsule, 1 p.o. daily 8. Omeprazole 20 Mg Capsule, Delayed Release(e.c.), 1 p.o. daily 9. Vitamin E 200 Unit Capsule, 1 p.o. daily CHIEF COMPLAINTS Followup of - Hypercholesterolemia, Followup of - Hypertension, benign and review lab results HISTORY OF PRESENT ILLNESS I had the opportunity to see Mr. Elijah Brown in Cardiology Clinic today for reevaluation of hypertension and dyslipidemia. He seems to be doing very well. He is not concerned about any chest discomfort or shortness of breath symptoms. He has been able to successfully quit alcohol use for the last four years. His cholesterol numbers this year look reasonably good. His total cholesterol is 159, HDL 44, LDL 102, and triglycerides 63. Compared to last year, his HDL is down a little bit and his LDL is up, but his numbers are still reasonable for primary prevention goals. On examination today his blood pressure is 124/76, heart rate 72, and weight 209 pounds. His lungs are clear. His heart rhythm is regular. I do not hear any cardiac murmurs or carotid bruits. PAST HISTORY Past Medical Illnesses: hypertension, hypercholesterolemia, Alcohol abuse/ dependency/ 07-06-09 acute Withdrawal- delirium Tremers and acute renal failure, anemia, Alcholic hepatitis Infectious History: usual childhood illnesses of mumps, measles and chickenpox Surgeries/Procedures - General: hernia repair Cardiology Procedures-NonInvasive: stress echocardiogram Dec 1999, echocardiogram Jun 2008 PMHx Echo Results: 06/30 Probably normal LV without obvious regional wall motion abnormality PMHx Stress Echo Results: 06/1999 Left Ventricular Ejection Fraction: EF<GT>55% by Echo -Jun 2008 EF<GT>55% by Echo -Jun 2008 FAMILY HISTORY: Father - hypertension; Mother - alive and well; Brother 1 - alive and well; Brother 2 - alive and well; Sister 1 - alive and well; SOCIAL HISTORY Alcohol Use - history of alcohol abuse, currently not drinking; Smoking - denies tobacco use; Diet -caffeine use-rare and regular diet without modifications; Lifestyle - single; Exercise - no regular exercise and walking at work; Seat Belt Use - always; 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 EYES denies diplopia, history of glaucoma or visual field defects. EARS, NOSE, THROAT, MOUTH denies any hearing loss, epistaxis, hoarseness or difficulty speaking. RESPIRATORY denies dyspnea, snoring, cough, wheezing or hemoptysis. CARDIOVASCULAR denies chest pain, denies palpitations, denies dizziness, denies edema ABDOMINAL denies ulcer disease, hematochezia or melena. MUSCULOSKELETAL denies any history of arthritic symptoms or back problems. NEUROLOGICAL denies any history of recurrent headaches, strokes, TIA, or seizure disorder. PSYCHIATRIC history of alcohol abuse ENDOCRINE denies any history of thyroid disease or diabetes mellitus. HEMATOLOGICAL/IMMUNOLOGIC seasonal allergies PHYSICAL EXAMINATION VITAL SIGNS: Blood Pressure: 124/76Sitting, Left arm, large cuff Pulse- 72.00/min. Weight- 209.40 lbs. Height- 69 BMI Measurement: 31 CONSTITUTIONAL cooperative, alert and oriented,well developed, well nourished, in no acute distress. SKIN warm and dry to touch, no apparent skin lesions, or masses noted. HEAD normocephalic, atraumatic NECK carotid pulses are full and equal bilaterally, JVP normal, no carotid bruit, no thyromegaly CHEST normal symmetry, no tenderness to palpation, normal respiratory excursion, no intercostal retraction, no use of accessory muscles, clear to auscultation and percussion. CARDIAC regular rhythm, S1 normal, S2 normal, No S3 or S4, Apical impulse not displaced, no murmurs, gallopsor rubs detected. ABDOMEN abdomen soft, bowel sounds normoactive, no masses, no hepatosplenomegaly, non- tender, no bruits PERIPHERAL PULSES pulses full and equal in all extremities, no bruits auscultated. EXTREMITIES & BACK no deformities, clubbing, cyanosis, erythema or edema observed. There are no spinal abnormalities noted. Normal muscle strength and tone. NEUROLOGICAL no gross motor deficits noted, affect appropriate, oriented to time, person and place. MEDICATIONS UPDATED/STARTED TODAY: Aspirin Low Dose 81 mg tablet,delayed release (DR/EC), 1 p.o. daily, #90 (Ninety) atorvastatin 40 mg tablet, 1 p.o. daily, #90 (Ninety) lisinopril 20 mg tablet, 1 p.o. daily, #90 (Ninety) MEDICATIONS REFILLED/STOPPED TODAY: atorvastatin 40 mg tablet 1 p.o. daily #0 (Zero) Refill, Lipitor 40 mg tablet 1 p.o. daily #90 (Ninety) Substitution and lisinopril 20 mg tablet 1 p.o. daily #90 (Ninety) Refill IMPRESSIONS/PLAN Mr. Elijah Brown is a 52-year-old gentleman with hypertension and dyslipidemia which we are treating as primary prevention. He has no other cardiac risk factors. His blood pressure continues to be appropriately controlled and his cholesterol numbers are a little higher this year but still reasonable. I will have him continue his current medications. I will plan to see him back again next year with repeat cholesterol numbers at that time. TODAYS ORDERS 1. F/U with Juan Farias MD 1 year 2. Lipid profile/ALT 1 year 3. Lipid profile/ALT 1 day Juan Farias M.D. 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 REPRESENTATIVE Infection erroneous MRSA 05/13/2021 05/13/2021 Rule Out C-difficile 12/06/2021 12/06/2021 12/07/2021 8:46 AM CDT documented as of this encounter Care Teams Oil Lease Broker Relationship Specialty Start Date End Date No Ref-Primary, PCP - General 07/03/14 12/03/21 Physician Juan Farias MD PCP - General Cardiovascular Disease 12/04/21 [address] [place] [address] Juan Farias MD Assigned Heart and 02/14/20 10/03/20 [address] Vascular Provider [address] [place] [address] Maya, Assigned Heart and 10/04/20 Edilia Chapman APRN Vascular Provider DRILLING MACHINE OPERATOR NO INFO AVAILABLE 02/10/2022 Juan Farias MD Assigned Heart and 04/04/21 07/31/21 [address] Vascular Provider [address] [place], [place] [id number] Denise Connell Physician Cigar Inspector Cardiovascular Disease 08/12/21 MARIETTA Watson [address] [place], [place] [phone] Maya, Assigned Heart and 08/01/21 2 Edilia Chapman APRN Vascular Provider GUILHERME NO INFO AVAILABLE 02/10/2022 Denise Connell Assigned Heart and 08/22/21 01/14/22 MARIETTA Watson Vascular Provider [address] [place], [place] [address] Dana Barry Assigned Heart and 01/15/22 MARIETTA Teague Vascular Provider [address] [place], [place] [address] documented as of this encounter
--- OUTSIDE RECORDS SUMMARY | 2022-02-12 13:48 | XMS_ITS | Encounter Summary ---
:1960 Author Organization [address] [address] Care Team Providers Name Role Phone Unavailable Primary Care Provider Unavailable Encounter Details Date Type Department Care Team Description 07/15/2011 Historic Results [facility] Heart Unknown, Doct or, Clinic [place] [id number] [place] [address] Social History Tobacco Use Types Packs/Day Years Used Date Smoking Tobacco: Never Alcohol Use Standard Drinks/Week Comments Yes 0 (1 standard drink = 0.6 oz pure alcoho l) socially approx 5 drinks/wk Sex Assigned at Date Recorded Not on file documented as of this encounter Plan of Treatment Not on filedocumented as of this encounter Procedures Procedure Name Priority Date/Time Associated Comments Diagnosis [facility] HISTORICAL Routine 07/15/2011 12:00 AM Resu lts for this RESULTS CDT procedure are i n the results section. documented in this encounter Results (ABNORMAL) [facility] Historical Results (07/15/2011 12:00 AM CDT) [facility] gist Method Time Signature Triglycerides 149 0 - 150 [facility] mg/dL HISTORICAL RESULTS Cholesterol, Total 134 0 - 199 [facility] mg/dL HISTORICAL RESULTS HDL Cholesterol 44 >40 mg/dL [facility] HISTORICAL RESULTS LDL Cholesterol 60 (L) 70 - 160 [facility] Calculated CALC HISTORICAL RESULTS VLDL - Calc 30 <40 CALC [facility] HISTORICAL RESULTS Cholesterol/HDL 3.0 <4.4 CALC [facility] Ratio HISTORICAL RESULTS ALT 31 3 - 60 [facility] U/L HISTORICAL RESULTS Specimen (Source) Anatomical Location Collection Method / Collectio n Time Received Time / Laterality Volume 07/15/2011 07/15/2011 Doctor Unknown MD LABORATORY Performing Organization Address City/State/ZIP Code Phon e Number [facility] HISTORICAL RESULTS documented in this encounter Visit Diagnoses Not on filedocumented in this encounter Additional Health Concerns Infection Onset Date Last Indicated Resolved Time MRSA-Contact IsolationComment: 0 04/26/2021 11:03 AM CLINICAL LABORATORY DIRECTOR Infection 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
--- OUTSIDE RECORDS SUMMARY | 2022-02-12 13:48 | XMS_ITS | Encounter Summary ---
:1960 Author Organization [place] Address [address] [place] [address] Care Team Providers Name Role Phone No Ref-Primary, Physician Primary Care Provider [phone] Reason for Visit Reason Onset Date Comments Refill Request 12/06/2017 amlodipine Encounter Details Date Type Department Care Team Description 12/06/2017 Refill [facility] Heart [place], Juan Alegre, Refill Request Clinic Annika HERBERT (amlodipine) [address] [facility] [address] [facility] [address] [place] [address] [place] [id number] ( rk) Social History Tobacco Use Types [...] Time MRSA-Contact IsolationComment: 0 04/26/2021 11:03 AM UTILITY SALES AND SERVICE MANAGER Infection 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 Care Teams Boom Truck Driver Relationship Specialty Start Date End Date No Ref-Primary, Physician PCP - General 07/03/14 12/03/21 documented as of this encounter
--- OUTSIDE RECORDS SUMMARY | 2022-02-12 13:48 | XMS_ITS | Encounter Summary ---
:1960 Author Organization [place] Address [address] [place] [address] Care Team Providers Name Role Phone Unavailable Primary Care Provider Unavailable Encounter Details Date Type Department Care Team Description 07/06/2009 Historic Notes INTERFACED REPORT Interface, Transcript onMD Social History Tobacco Use Types Packs/Day Years Used Date Smoking Tobacco: Never Alcohol Use Standard Drinks/Week Comments Yes 0 (1 standard drink = 0.6 oz pure alcoho l) socially approx 5 drinks/wk Sex Assigned at Date Recorded Not on file documented as of this encounter Progress Notes Interface, Special Education Director - 07/10/2010 8:27 AM CDT Patient Status - Diagnosis/Procedure Alcohol Withdrawl - Physical status Stable (s/s of potential complications absent or manageable) - Psychosocial status Stable Discharge Planning - Discharge From: [facility] - Patient Care Unit: Med Surg 5 - PCU - Discharge To: Home/Alternative home - Method of discharge: Wheel Chair - Transportation: Private Discharge Information - Valuables returned Valuables returned - Discharge information Discharge instructions reviewed with pt/family/so; Prescriptions given - Accompanied by sister - Mode of Travel Wheelchair Medications and Prescriptions - Medications and Prescriptions given to patient Prescriptions Support Services - Is home care No recommended? - Supplies sent/ordered No - Equipment No sent/ordered - Other Services No arranged Special Care Needs and Instructions - Diet Instructions: As tolerated Drink plenty of fluids - Activity Up as tolerated Instructions: - Report temp if 101 degrees F greater than: - Symptoms/Problems to Increased confusion look for at home- Lightheadedness/Dizzieness call the physician Uncontrollable nausea/vomiting about: - Who patient should Primary Docter call: - Is patient going home No with IV Catheter?: - Other Special Care No drinking Needs: Other Discharge Education, Materials, and Instructions - Other Education, Rule 25 for CD evaluation: [facility], and [facility] in [facility] [place] Instructions: [phone] 1. You must apply in person at [facility] in [facility] [place] / 3rd floor 2. First come first served - be there by 9:00am 3. THEY ARE CLOSED ON WED.'S Follow Up Care - Physician/clinician [facility] CD Evaluation name: - When to see [facility]NY physician/clinician: Debi Mcdonald (RN)[Signed 12:54] Authored: Patient Status, Discharge Planning, Discharge Information, Medications and Prescriptions, Support Services, Special Care Needs and Instructions, Follow Up Care Ester Berumen (MEAL COOKER)[Signed 12:20] Authored: Other Discharge Education, Materials, and Instructions Interface, Special Education Director - 07/10/2010 8:27 AM CDT SARAH ESCOBAR and Dr Carrillo met with pt to review Chemical Dependency concerns. Pt states, I need treatment, what ever is free. Pt has declined treatment during past admissions. When asked what has made the difference this admission he stated, This time I hit my head and have been in the hospital for 6 days. When questioned further he acknowledged that his motivation stems from his fiance stating he gets treatment or he can no longer live with her. Pt states, I do want to get help this time too. SHAWN explained Rule 25 and gave pt the phone number of [facility] in [facility] [place] ([phone]) and directions to the facility. He was informed that the [facility] does not take applications on Mon'. It was explained that he needs to apply in person and needs to arrive on site by 9:00am. It will be a first come first serve basis. SHAWN also provided a community resource sheet with multiple numbers for Chemical Dependency help. A. Pt indicating he wants help for CD issues P. No other needs identified [Signature] Author: Ester Berumen (MEAL COOKER) [Signed 12:32] Interface, Special Education Director - 07/10/2010 8:27 AM CDT Discharge Summary - Reason for Discharge Discharge from facility, home with CD resources - Progress toward Goals not met achieving short term goals/termite helper goals - Barriers to achieving Early discharge from facility no treatment goals beyond eval - Continued Therapy Yes Recommended - Rationale/ Moderate cognitive deficits notes. Discharge Recommendations before completed CPT. Recommned CPT/further cognitive testing. Signatures DIGNA LEROY (Student)[Signed 13:46] Authored: Discharge Summary MARVEL GUTIERREZ (OTR/L)[Signed 15:38] Authored: Discharge Summary Co Signer: Discharge Summary documented in this encounter Plan of Treatment Not on filedocumented as of this encounter Visit Diagnoses Not on filedocumented in this encounter Additional Health Concerns Infection Onset Date Last Indicated Resolved Time MRSA-Contact IsolationComment: 0 04/26/2021 11:03 AM AMPOULE INSPECTOR Infection 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
--- OUTSIDE RECORDS SUMMARY | 2022-02-12 13:48 | XMS_ITS | Encounter Summary ---
:1960 Author Organization [place] Address [address] [place] [address] Care Team Providers Name Role Phone Unavailable Primary Care Provider Unavailable Encounter Details Date Type Department Care Team Description 06/05/2013 Historic Results [facility] Heart Unknown, Doct or, Clinic [address] [place] [address] Social History Tobacco Use Types Packs/Day Years [...] Date/Time Associated Comments Diagnosis GEMMS HISTORICAL Routine 06/05/2013 12:00 AM Resu lts for this RESULTS DERMATOLOGIST procedure are i n the results section. documented in this encounter Results GEMMS Historical Results (06/05/2013 12:00 AM DERMATOLOGIST) [facility] gist Method Time Signature Triglycerides 63 0 - 150 GEMMS mg/dL HISTORICAL RESULTS Cholesterol, Total 159 0 - 199 GEMMS mg/dL HISTORICAL RESULTS HDL Cholesterol 44 >40 mg/dL G[facility] HISTORICAL RESULTS LDL Cholesterol 102 70 - 160 GEMMS Calculated CALC HISTORICAL RESULTS VLDL - Calc 13 <40 CALC GEMMS HISTORICAL RESULTS Cholesterol/HDL 3.6 <4.4 CALC GEMMS Ratio HISTORICAL RESULTS ALT 15 5 - 30 U/L GEM[facility] HISTORICAL RESULTS Specimen (Source) Anatomical Location Collection Method / Collectio n Time Received Time / Laterality Volume 06/05/2013 06/05/2013 Doctor Unknown MD LABORATORY Performing Organization Address City/State/ZIP Code Phon e Number GEMMS HISTORICAL RESULTS documented in this encounter Visit Diagnoses Not on filedocumented in this encounter Additional Health Concerns Infection Onset Date Last Indicated Resolved Time MRSA-Contact IsolationComment: 0 04/26/2021 11:03 AM DERMATOLOGIST Infection 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
--- OUTSIDE RECORDS SUMMARY | 2022-02-12 13:48 | XMS_ITS | Encounter Summary ---
:1960 Author Organization [place] Address [address] [place] [address]. [place] [address] Care Team Providers Name Role Phone Unavailable Primary Care Provider Unavailable Encounter Details Date Type Department Care Team Description 07/02/2014 Orders Only [facility] Juan Farias, Mixed hyperlipidemia Heart Clinic Annika HERBERT (Primary Dx) Laboratory [address] [facility] [address] [facility] [address] [place] [address] [place] [phone] Social History Tobacco Use Types Packs/Day Years Used Date Smoking Tobacco: Never Alcohol Use Standard Drinks/Week Comments Yes 0 (1 standard drink = 0.6 oz pure alcoho l) socially approx 5 drinks/wk Sex Assigned at Date Recorded Not on file documented as of this encounter Plan of Treatment Not on filedocumented as of this encounter Results ALT (07/03/2014 8:59 AM CDT) athologist Signature ALT 18 5 - 30 U/L [facility] Specimen Anatomical Collection Method Collection Time Receive d Time (Source) Location / / Volume Laterality Blood specimen 07/03/2014 8:59 AM 015 9:00 (specimen) CDT AM CDT Juan Farias MD LAB - BLOOD ORDERABLES Performing Organization Address City/State/ZIP Code Phon e Number [facility] [address] [facility] [place] [address] [address] (ABNORMAL) Lipid Profile (07/03/2014 8:59 AM CDT) athologist Signature Cholesterol 157 0 - 200 [facility] mg/dL [facility] Comment: LDL Cholesterol is the primary guide to therapy. The NCEP recommends further evaluation of: patients with cholesterol greater than 200 mg/dL if additional risk facto rs are present, cholesterol greater than 240 mg/dL, triglycerides greater than 1 50 mg/dL, or HDL less than 40 mg/dL. Triglycerides 129 0 - 150 mg/dL [facility] Comment: Fasting specimen HDL Cholesterol 39 (L) 40 - 118 mg/dL [facility] LDL Cholesterol Calculated 92 70 - 160 mg/dL [facility] Comment: LDL Cholesterol is the primary guide to therapy: LDL-cholesterol goal in high risk patients is <100 mg/dL and in very high risk patients is <70 mg/dL. VLDL-Cholesterol 26 <40 mg/dL [facility] Cholesterol/HDL Ratio 4.0 <4.4 [facility] Specimen Anatomical Collection Method Collection Time Receive d Time (Source) Location / / Volume Laterality Blood specimen 07/03/2014 8:59 AM 015 9:00 (specimen) CDT AM CDT Juan Farias MD LAB - BLOOD ORDERABLES Performing Organization Address City/State/ZIP Code Phon e Number [facility] [address] [place] [address] [address] documented in this encounter Visit Diagnoses Diagnosis Mixed hyperlipidemia - Primary documented in this encounter Additional Health Concerns Infection Onset Date Last Indicated Resolved Time MRSA-Contact IsolationComment: 0 04/26/2021 11:03 AM SPRIGGER Infection 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
--- OUTSIDE RECORDS SUMMARY | 2022-02-12 13:48 | XMS_ITS | Encounter Summary ---
:1960 Author Organization [place] Address [address] [place] [address] Care Team Providers Name Role Phone Unavailable Primary Care Provider Unavailable Reason for Visit Reason Onset Date Comments Refill Request 05/16/2014 Lipitor, Lisinopril/ Refill letter Encounter Details Date Type Department Care Team Description 05/16/2014 Refill [facility] Juan Farias, Refill Request (Lipitor, Clinic Annika HERBERT Lisinopril/Refill [address] [facility] [address] [facility] [address] letter) [address] [place] [address] [place] [id number] (Wo rk) Social History Tobacco Use Types Packs/Day Years Used Date Smoking Tobacco: Never Alcohol Use Standard Drinks/Week Comments Yes 0 (1 standard drink = 0.6 oz pure alcoho l) socially approx 5 drinks/wk Sex Assigned at Date Recorded Not on file documented as of this encounter Plan of Treatment Not on filedocumented as of this encounter Visit Diagnoses Diagnosis Unspecified essential hypertension - Una matilda Mixed hyperlipidemia documented in this encounter Additional Health Concerns Infection Onset Date Last Indicated Resolved Time MRSA-Contact IsolationComment: 0 04/26/2021 11:03 AM INSOLE BUFFER Infection 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
--- OUTSIDE RECORDS SUMMARY | 2022-02-12 13:48 | XMS_ITS | Encounter Summary ---
:1960 Author Organization [place] Address [address] [place] [address] Care Team Providers Name Role Phone No Ref-Primary, Physician Primary Care Provider [phone] Encounter Details Date Type Department Care Team Description 09/14/2017 Orders Only [facility] Kenzie Kenney h yperlipidemia (Primary Dx); Heart Clinic Annika Hernández RN Benign essential hypertensio n [address] [facility] [address] [place] [address] Social History Tobacco Use Types Packs/Day Years Used Date Smoking Tobacco: Never Alcohol Use Standard Drinks/Week Comments No 0 (1 standard drink = 0.6 oz pure alcoho l) quit 5 years ago Sex Assigned at Date Recorded Not on file documented as of this encounter Plan of Treatment Not on filedocumented as of this encounter Results (ABNORMAL) Basic metabolic panel (09/15/2017 8:20 AM CDT) P athologist Signature Sodium 138 136 - 145 09/15/2017 [facility] mmol/L 9:16 AM CDT [place] Potassium 4.1 3.5 - 5.1 09/15/2017 [facility] mmol/L 9:16 AM CDT [place] Chloride 103 98 - 107 09/15/2017 [facility] mmol/L 9:16 AM CDT [facility] Carbon Dioxide 25 23 - 29 09/15/2017 [facility] mmol/L 9:16 AM CDT [place] Anion Gap 14.1 6 - 17 09/15/2017 [facility] mmol/L 9:16 AM CDT [place] Glucose 126 (H) 70 - 105 09/15/2017 [facility] mg/dL 9:16 AM CDT [facility] Comment: Fasting specimen Urea Nitrogen 14 7 - 30 mg/dL 09/15/2017 9:16 AM [facility] Creatinine 1.22 0.70 - 1.30 09/15/2017 9:16 AM [facility] mg/dL [facility] GFR Estimate 62 >60 09/15/2017 9:16 AM [facility] AT mL/min/1.7m2 [facility] GFR Estimate If 75 >60 09/15/2017 9:16 AM [facility] AT [place] mL/min/1.7m2 [facility] Calcium 9.7 8.5 - 10.5 09/15/2017 9:16 AM [facility] mg/dL [facility] Specimen Anatomical Collection Method Collection Time Receive d Time (Source) Location / / Volume Laterality Blood specimen 09/15/2017 8:20 AM 018 8:21 (specimen) CDT AM CDT Juan Farias MD LAB - BLOOD ORDERABLES Performing Organization Address City/State/ZIP Code Phon e Number [facility] [address] [place] [address] [address] ALT (09/15/2017 8:20 AM CDT) P athologist Signature ALT 8 5 - 30 U/L 09/15/2017 [facility] 9:16 AM [facility] Specimen Anatomical Collection Method Collection Time Receive d Time (Source) Location / / Volume Laterality Blood specimen 09/15/2017 8:20 AM 018 8:21 (specimen) CDT AM CDT Juan Farias MD LAB - BLOOD ORDERABLES Performing Organization Address City/State/ZIP Code Phon e Number [facility] [address] [place] [address] [address] Lipid Profile (09/15/2017 8:20 AM CDT) P athologist Signature Cholesterol 163 <200 mg/dL 09/15/2017 [facility] 9:16 AM [facility] Triglycerides 119 <150 mg/dL 09/15/2017 [facility] 9:16 AM [facility] Comment: Fasting specimen HDL Cholesterol 46 >39 mg/dL 09/15/2017 9:16 AM P H [facility]ART AT [facility] LDL Cholesterol 93 <100 mg/dL 09/15/2017 9:16 AM [facility] Calculated [facility] Comment: Desirable: <100 mg/dl Non HDL Cholesterol 117 <130 mg/dL 09/15/2017 9:16 AM P HEART AT [facility] Specimen Anatomical Collection Method Collection Time Receive d Time (Source) Location / / Volume Laterality Blood specimen 09/15/2017 8:20 AM 018 8:21 (specimen) [facility] MD LAB - BLOOD ORDERABLES Performing Organization Address City/State/ZIP Code Phon e Number [facility] [address] [place] [address] [address] documented in this encounter Visit Diagnoses Diagnosis Mixed hyperlipidemia - Primary Benign essential hypertension Essential hypertension, benign documented in this encounter Additional Health Concerns Infection Onset Date Last Indicated Resolved Time MRSA-Contact IsolationComment: 0 04/26/2021 11:03 AM ENROLLMENT COORDINATOR Infection 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 Care Teams Customer Complaint Service Supervisor Relationship Specialty Start Date End Date No Ref-Primary, Physician PCP - General 07/03/14 12/03/21 documented as of this encounter
--- OUTSIDE RECORDS SUMMARY | 2022-02-12 13:48 | XMS_ITS | Encounter Summary ---
:1960 Author Organization [place] Address [address] [place] [address] Care Team Providers Name Role Phone No Ref-Primary, Physician Primary Care Provider [phone] Reason for Visit Reason Onset Date Comments Refill Request 11/30/2017 continues on atorvas tatin 40mg Encounter Details Date Type Department Care Team Description 11/30/2017 Refill [facility] Jarrett, Juan Alegre, Refill Request (continues Clinic Annika HERBERT on atorvastatin 40mg) 6[address] [facility] 6[address] [facility] [address] [place] [address] [place] [id number] (Wo rk) Social History Tobacco Use Types [...] Time MRSA-Contact IsolationComment: 0 04/26/2021 11:03 AM RADIO MECHANIC HELPER Infection 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 Care Teams Internet Media Planner Relationship Specialty Start Date End Date No Ref-Primary, Physician PCP - General 07/03/14 12/03/21 documented as of this encounter
--- OUTSIDE RECORDS SUMMARY | 2022-02-12 13:48 | XMS_ITS | Encounter Summary ---
:1960 Author Organization [place] Address [address] [place] [address] Care Team Providers Name Role Phone Unavailable Primary Care Provider Unavailable Encounter Details Date Type Department Care Team Description 04/25/2012 Historic Results [facility] Heart Unknown, Doct or, Clinic [place] [id number] [place] [address] Social History Tobacco Use Types Packs/Day Years [...] Date/Time Associated Comments Diagnosis GEMMS HISTORICAL Routine 04/25/2012 12:00 AM Resu lts for this RESULTS BUS COMPANY MANAGER procedure are i n the results section. documented in this encounter Results (ABNORMAL) GEMMS Historical Results (04/25/2012 12:00 AM BUS COMPANY MANAGER) [facility] gist Method Time Signature Triglycerides 167 (H) 0 - 150 GEMMS mg/dL HISTORICAL RESULTS Cholesterol, 166 0 - 199 GEM[facility] Total mg/dL HISTORICAL RESULTS HDL Cholesterol 51 >40 mg/dL [facility] HISTORICAL RESULTS LDL Cholesterol 82 70 - 160 GEMMS Calculated CALC HISTORICAL RESULTS VLDL - Calc 33 <40 CALC GEM[facility] HISTORICAL RESULTS Cholesterol/HDL 3.3 <4.4 CALC GEM[facility] Ratio HISTORICAL RESULTS ALT 35 3 - 60 GEM[facility] U/L HISTORICAL RESULTS Specimen (Source) Anatomical Location Collection Method / Collectio n Time Received Time / Laterality Volume 04/25/2012 04/25/2012 Doctor Unknown MD LABORATORY Performing Organization Address City/State/ZIP Code Phon e Number GEMMS HISTORICAL RESULTS documented in this encounter Visit Diagnoses Not on filedocumented in this encounter Additional Health Concerns Infection Onset Date Last Indicated Resolved Time MRSA-Contact IsolationComment: 0 04/26/2021 11:03 AM BUS COMPANY MANAGER Infection 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
--- OUTSIDE RECORDS SUMMARY | 2022-02-12 13:48 | XMS_ITS | Encounter Summary ---
:1960 Author Organization [place] Address [address] [place] [address] Care Team Providers Name Role Phone No Ref-Primary, Physician Primary Care Provider Encounter Details Date Type Department Care Team Description 07/03/2014 Orders Only [facility] Mixed hyperlipidemia [place] [facility] [address] [facility] [address] [place] [address] Social History Tobacco Use Types Packs/Day Years [...] Associated Diagnosis Comme nts LIPID PROFILE Routine 07/03/2014 8:59 AM Mixed Hyperlipidemia Results for this CDT procedure are i n the results section . ALT Routine 07/03/2014 8:59 AM Mixed Hyperlipidemia R esults for this CDT procedure are i n the results section . documented in this encounter Results ALT (07/03/2014 8:59 AM CDT) P athologist Signature ALT 18 5 - 30 U/L [facility] Specimen Anatomical Collection Method Collection Time Receive d Time (Source) Location / / Volume Laterality Blood specimen 07/03/2014 8:59 AM 015 9:00 (specimen) CDT AM CDT Juan Farias MD LAB - BLOOD ORDERABLES Performing Organization Address City/State/ZIP Code Phon e Number [facility] [address] [facility] [place] [address] [address] (ABNORMAL) Lipid Profile (07/03/2014 8:59 AM CDT) P athologist Signature Cholesterol 157 0 - 200 [facility] mg/dL [facility] Comment: LDL Cholesterol is the primary guide to therapy. The NCEP recommends further evaluation of: patients with cholesterol greater than 200 mg/dL if additional risk facto rs are present, cholesterol greater than 240 mg/dL, triglycerides greater than 1 50 mg/dL, or HDL less than 40 mg/dL. Triglycerides 129 0 - 150 mg/dL [facility] Comment: Fasting specimen HDL Cholesterol 39 (L) 40 - 118 mg/dL [facility] LDL Cholesterol Calculated 92 70 - 160 mg/dL [facility] Comment: LDL Cholesterol is the primary guide to therapy: LDL-cholesterol goal in high risk patients is <100 mg/dL and in very high risk patients is <70 mg/dL. VLDL-Cholesterol 26 <40 mg/dL [facility] Cholesterol/HDL Ratio 4.0 <4.4 [facility] Specimen Anatomical Collection Method Collection Time Receive d Time (Source) Location / / Volume Laterality Blood specimen 07/03/2014 8:59 AM 015 9:00 (specimen) CDT AM CDT Juan Farias MD LAB - BLOOD ORDERABLES Performing Organization Address City/State/ZIP Code Phon e Number [facility] [address] [place] [address] [address] documented in this encounter Visit Diagnoses Diagnosis Mixed hyperlipidemia documented in this encounter Additional Health Concerns Infection Onset Date Last Indicated Resolved Time MRSA-Contact IsolationComment: 0 04/26/2021 11:03 AM DIRECTOR OF FOOD AND NUTRITION SERVICES Infection 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 Care Teams Deep Fat Fry Cook Relationship Specialty Start Date End Date No Ref-Primary, Physician PCP - General 07/03/14 12/03/21 documented as of this encounter
--- OUTSIDE RECORDS SUMMARY | 2022-02-12 13:48 | XMS_ITS | Encounter Summary ---
:1960 Author Organization [place] Address [address] [place] [address] Care Team Providers Name Role Phone Unavailable Primary Care Provider Unavailable Reason for Visit Reason Onset Date Comments Previsit 06/26/2014 07/03/[address] Farias Encounter Details Date Type Department Care Team Description 06/26/2014 PRE VISIT [facility] Juan Farias, Previsit (07/03/14 OV Clinic Idris HERBERT with Dr. Farias) 6[address] [facility] [address] [facility] [address] [place] [address] [place] [id number] Social History Tobacco Use Types Packs/Day Years [...] Time MRSA-Contact IsolationComment: 0 04/26/2021 11:03 AM SUPERVISOR SPECIAL EDUCATION Infection 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
--- OUTSIDE RECORDS SUMMARY | 2022-02-12 13:48 | XMS_ITS | Encounter Summary ---
:1960 Author Organization [facility] Address [address] [place] [address] Care Team Providers Name Role Phone No Ref-Primary, Physician Primary Care Provider Encounter Details Date Type Department Care Team Description 08/04/2016 Orders Only [facility] Juan Fairas, Mixed hyperlipidemia; [facility] [place] [facility] Essential hypertension Laboratory [address] [facility] [address] [id number] [facility] [address] [place] [address] [place] [address] [phone] Social History Tobacco Use Types Packs/Day Years Used Date Smoking Tobacco: Never Alcohol Use Standard Drinks/Week Comments No 0 (1 standard drink = 0.6 oz pure alcoho l) quit 5 years ago Sex Assigned at Date Recorded Not on file documented as of this encounter Miscellaneous Notes Addendum Note - Mo Mcghee - 08/04/2016 8:37 AM CDT Addended by: MO MCGHEE B on: 08/04/2016 08:37 AM Modules accepted: Orders documented in this encounter Plan of Treatment Not on filedocumented as of this encounter Procedures Procedure Name Priority Date/Time Associated Diagnosis Comme nts LIPID PROFILE Routine 08/04/2016 7:15 AM Mixed hyperlipidemia Results for this CDT procedure are i n the results section. ALT Routine 08/04/2016 7:15 AM Mixed hyperlipidemia R esults for this CDT procedure are i n the results section. BASIC METABOLIC Routine 08/04/2016 7:15 AM Essential hypertens ion Results for this PANEL CDT procedure are i n the results section. documented in this encounter Results (ABNORMAL) Basic metabolic panel (08/04/2016 7:15 AM CDT) Analysis Performed At Patho logist Time Signature Sodium 138 136 - 145 [facility] mmol/L [facility] A Potassium 5.2 (H) 3.5 - 5.1 [facility] mmol/L [facility] A Chloride 105 98 - 107 [facility] mmol/L [facility] A Carbon Dioxide 26 23 - 29 [facility] mmol/L [facility] A Anion Gap 12.2 6 - 17 [facility] mmol/L [facility] A Glucose 118 (H) 70 - 105 [facility] mg/dL [facility] A Urea Nitrogen 22 7 - 30 [facility] mg/dL [facility] A Creatinine 1.57 (H) 0.70 - [facility] 1.30 mg/dL [facility] A GFR Estimate 46 (L) >60 [facility] mL/min/1.[address] [facility] m2 A GFR Estimate If 56 (L) >60 [facility] Black mL/min/1.[address] [facility] m2 A Calcium 9.4 8.5 - 10.5 [facility] mg/dL [facility] A Specimen Anatomical Collection Method Collection Time Receive d Time (Source) Location / / Volume Laterality Blood specimen 08/04/2016 7:15 AM 017 8:38 (specimen) CDT AM CDT Juan Farias MD LAB - BLOOD ORDERABLES Performing Organization Address City/[facility]/ZIP Code Phon e Number [facility] [address] [place] [address] [address] ALT (08/04/2016 7:15 AM CDT) P athologist Signature ALT 9 5 - 30 U/L [facility] Specimen Anatomical Collection Method Collection Time Receive d Time (Source) Location / / Volume Laterality Blood specimen 08/04/2016 7:15 AM 017 7:16 (specimen) CDT AM CDT Juan Farias MD LAB - BLOOD ORDERABLES Performing Organization Address City/[facility]/ZIP Code Phon e Number [facility] [address] [address] [address] Lipid Profile (08/04/2016 7:15 AM CDT) athologist Signature Cholesterol 146 <200 mg/dL [facility] AT [facility] Triglycerides 64 <150 mg/dL [facility] Comment: Fasting specimen HDL Cholesterol 43 >39 mg/dL [facility] AT [facility] LDL Cholesterol Calculated 90 <100 mg/dL [facility] Comment: Desirable: <100 mg/dl Non HDL Cholesterol 103 <130 mg/dL [facility] AT [facility] Specimen Anatomical Collection Method Collection Time Receive d Time (Source) Location / / Volume Laterality Blood specimen 08/04/2016 7:15 AM 017 7:16 (specimen) CDT AM CDT Juan Farias MD LAB - BLOOD ORDERABLES Performing Organization Address City/State/ZIP Code Phon e Number [facility] AT [facility] [address] [address] [address] documented in this encounter Visit Diagnoses Diagnosis Mixed hyperlipidemia Essential hypertension Unspecified essential hypertension documented in this encounter Additional Health Concerns Infection Onset Date Last Indicated Resolved Time MRSA-Contact IsolationComment: 0 04/26/2021 11:03 AM ELECTRICAL 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
--- OUTSIDE RECORDS SUMMARY | 2022-02-12 13:48 | XMS_ITS | Encounter Summary ---
:1960 Author Organization [facility] Address [address] [place] [address] Care Team Providers Name Role Phone Unavailable Primary Care Provider Unavailable Encounter Details Date Type Department Care Team Description 07/06/2009 Discharge Summary [facility] Luisa Carrillo M D (Readers' Advisory Service Librarian) [facility] [address] [place] [address] (Wo rk) Social History Tobacco Use Types Packs/Day Years Used Date Smoking Tobacco: Never Alcohol Use Standard Drinks/Week Comments Yes 0 (1 standard drink = 0.6 oz pure alcoho l) socially approx 5 drinks/wk Sex Assigned at Date Recorded Not on file documented as of this encounter Progress Notes Her, Luisa - 07/31/2009 2:20 PM CDT FINAL DISCHARGE DIAGNOSES: 1. Alcohol abuse/dependence/acute withdrawal. 2. Hypertension. 3. Sinus tachycardia, likely alcohol-related. 4. Alcoholic hepatitis. 5. Acute renal failure. BRIEF HISTORY AND HOSPITAL COURSE: Mr. Elijah Brown is a 48-year-old gentleman with history of alcohol abuse who presents here to the ER for falling. He lives with his fiancee in an apartment and had been falling at home. She apparently called the paramedics when the patient fell while going up stairs. Per the electrical engineering drafting officer notes, a breathalyzer at the scene revealed an alcohol level 0.14. On arrival here, his alcohol level was actually 0.37. Please see the initial H&P by Dr. Dang for details and the rest of his history and physical exam. HOSPITAL COURSE: 1. Alcohol dependence/abuse with acute withdrawal: He presented here actually quite intoxicated. Hewas started on routine alcohol withdrawal protocol with daily banana bags. He actually went into some pretty significant withdrawal the following day and was given p.r.n. Ativan as well as Haldol. He slowly improved over the course of his hospitalization day and 2 days prior to discharge, he was actually alert, oriented x3 and quite knowledgeable about his presentation. He was educated and counseled on the necessity of alcohol cessation as well as the risks and ramifications of his use if he fails to quit. food counter worker was involved. In addition, his sister is a strong advocate as well as his fiancee. He initially had no residence to return back home to given his alcohol issue, but he had actuallycompromised with his fiancee that he would go ahead and proceed with Rule 25 assessment and continueto seek treatment for his drinking. According to the sister, who I spoke with, he does tend to have 6 weeks of sobriety. Once he is discharged from the hospital, he tends to have a relapse thereafter. 2. Sinus tachycardia: On presentation here, he was quite tachycardic in the 100s to 120s. This was sinus-related and likely secondary to his alcohol withdrawal. He may also have some chronic inappropriate sinus tachycardia that is likely related to his alcohol consumption. He was started on metoprolol with good improvement of his heart rate. His heart rates were in the 70s to 80s on the last 2 days before discharge. We did hold his lisinopril in lieu of addition of metoprolol. He had been on 50 mg p.o. q.6 h. while he was here, but I felt that this might be a bit too much for him once he gets home, so this was reduced to twice a day instead. 3. Positive C. difficile culture: During his hospitalization here he had been having some diarrhea. His initial C. difficile tox was negative but he did have some light growth of C. difficile in the culture. I elected to treat him with some Flagyl 500 mg p.o.t.i.d. for at least a 1-week course in the event that this may be a culprit of his diarrhea. 4. Acute renal failure: This is likely prerenal in etiology. With IV fluid and volume resuscitation, his creatinine actually returned back down to 0.79 which is baseline. DISCHARGE MEDICATIONS: 1. Lipitor 20 mg p.o. daily. 2. Metoprolol 20 mg p.o. b.i.d. 3. Multivitamin with minerals. 4. Prilosec 40 mg p.o. daily. 5. Flagyl 500 mg p.o. t.i.d. for 1 week. 6. Magnesium oxide 400 mg p.o. daily. DISPOSITION: Discharge to home with his fiancee. food counter worker was actively involved with his case this admission and did give him the CD resources for Rule 25 assessment to be done at [facility] the following morning after discharge. Electronically signed on 07/31/2009 14:20 by LUISA CARRILLO MD MT: [id number] Name: ELIJAH BROWN Account: [id number] : 1960 Admit Date: Discharge Date: 07/06/2009 Document: [id number] documented in this encounter Plan of Treatment Not on filedocumented as of this encounter Visit Diagnoses Not on filedocumented in this encounter Additional Health Concerns Infection Onset Date Last Indicated Resolved Time MRSA-Contact IsolationComment: 0 04/26/2021 11:03 AM DETECTIVE HOMICIDE SQUAD Infection 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
--- OUTSIDE RECORDS SUMMARY | 2022-02-12 13:48 | XMS_ITS | Encounter Summary ---
:1960 Author Organization [facility] Address [address] [place] [address] Care Team Providers Name Role Phone No Ref-Primary, Physician Primary Care Provider [phone] Encounter Details Date Type Department Care Team Description 09/27/2017 Orders Only [facility] Heart Elev ated fasting glucose Clinic [address] [place] [address] Social History Tobacco Use [...] Associated Diagnosis Comme nts HEMOGLOBIN A1C Routine 09/27/2017 3:21 PM Elevated fasting Res ults for this CDT glucose procedure are i n the results section . documented in this encounter Results (ABNORMAL) Hemoglobin A1c (09/27/2017 3:21 PM CDT) P athologist Signature Hemoglobin A1C 6.1 (H) 0 - 5.6 % 09/27/2017 [place] 3:55 PM T [facility] Comment: Normal <5.7% Prediabetes 5.7-6.4% ??Diab etes 6.5% or higher - adopted from ADA consensus guidelines. Specimen Anatomical Collection Method Collection Time Receive d Time (Source) Location / / Volume Laterality Blood specimen 09/27/2017 3:21 PM 018 3:26 (specimen) CDT PM CDT Juan Farias MD LAB - BLOOD ORDERABLES Performing Organization Address City/State/ZIP Code Phon e Number [facility] [address] [place], [place] [address] [facility] [address] [phone] documented in this encounter Visit Diagnoses Diagnosis Elevated fasting glucose Impaired fasting glucose documented in this encounter Additional Health Concerns Infection Onset Date Last Indicated Resolved Time MRSA-Contact IsolationComment: 0 04/26/2021 11:03 AM CIVIL LAWYER Infection 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 Care Teams Primer Charging Tool Setter Relationship Specialty Start Date End Date No Ref-Primary, Physician PCP - General 07/03/14 12/03/21 documented as of this encounter
--- OUTSIDE RECORDS SUMMARY | 2022-02-12 13:48 | XMS_ITS | Encounter Summary ---
:1960 Author Organization [facility] Address [address] [place] [address] Care Team Providers Name Role Phone No Ref-Primary, Physician Primary Care Provider Reason for Visit Reason Onset Date Comments Results 08/04/2016 BMP Encounter Details Date Type Department Care Team Description 08/04/2016 Telephone [facility] Heart Raghu Pandey, Results (BMP) Clinic Annika HORNE [address] [facility] [address] [place] [phone] Social History Tobacco Use Types Packs/Day Years Used Date Smoking Tobacco: Never Alcohol Use Standard Drinks/Week Comments No 0 (1 standard drink = 0.6 oz pure alcoho l) quit 5 years ago Sex Assigned at Date Recorded Not on file documented as of this encounter Miscellaneous Notes Addendum Note - Raghu Pandey RN - 08/04/2016 4:46 PM CDT Addended by: RAGHU PANDEY on: 08/04/2016 04:46 PM Modules accepted: Orders Telephone Encounter - Raghu Pandey RN - 08/04/2016 4:36 PM CDT Patient was called again and he answered. I reviewed the BMP results and told him to stop his OTC K+supplement and his lisinopril. We will start amlodipine 5 MG. He will come back to clinic in 2 weeksfor an BPM. Patient was very agreeable to plan and stated understanding. [place] Telephone Encounter - Raghu Pandey RN - 08/04/2016 3:25 PM CDT Attempted to reach patient but no answer, to tell him that Dr. Farias reviewed the BMP that was drawnthis morning. It showed a K+ of 5.2 and a Vacuum Technician of 1.57. Per Dr. Farias , he is to stop lisinopril 20 MG and to use amlodipine 5 MG and to stop all OTC K+ supplements. He should return in 2 weeks for a repeat BMP and I will place this order. I will try to reach him again later today. [place] documented in this encounter Plan of Treatment Not on filedocumented as of this encounter Results (ABNORMAL) Basic metabolic panel (08/12/2016 3:03 PM CDT) Analysis Performed At Path logist Time Signature Sodium 137 133 - 144 [facility] mmol/L [facility] Potassium 4.0 3.4 - 5.3 [facility] mmol/L [facility] Chloride 104 94 - 109 [facility] mmol/L [facility] Carbon Dioxide 26 20 - 32 [facility] mmol/L [facility] Anion Gap 7 3 - 14 [facility] mmol/L [facility] Glucose 88 70 - 99 [facility] mg/dL [facility] Urea Nitrogen 19 7 - 30 [facility] mg/dL [facility] Creatinine 1.31 (H) 0.66 - [facility] 1.25 mg/dL [facility] GFR Estimate 57 (L) >60 [facility] mL/min/1.[address] Comment: Non GFR Calc GFR Estimate If Black 69 >60 mL/min/1.7m2 F [facility] Comment: GFR Calc Calcium 9.0 8.5 - 10.1 mg/dL [facility] Specimen Anatomical Collection Method Collection Time Receive d Time (Source) Location / / Volume Laterality Blood specimen 08/12/2016 3:03 PM 017 3:04 (specimen) CDT PM CDT Juan Farias MD LAB - BLOOD ORDERABLES Performing Organization Address City/State/ZIP Code Phon e Number M [facility] [address] [place] [address] [facility] [address] [phone] documented in this encounter Visit Diagnoses Diagnosis Benign essential hypertension - Primary Essential hypertension, benign documented in this encounter Additional Health Concerns Infection Onset Date Last Indicated Resolved Time MRSA-Contact IsolationComment: 0 04/26/2021 11:03 AM MANAGER HUMAN CAPITAL Infection 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 Care Teams Supervisor Cook Room Relationship Specialty Start Date End Date No Ref-Primary, Physician PCP - General 07/03/14 12/03/21 documented as of this encounter
--- OUTSIDE RECORDS SUMMARY | 2022-02-12 13:48 | XMS_ITS | Encounter Summary ---
:1960 Author Organization [place] Address [address] [place] [address] Care Team Providers Name Role Phone No Ref-Primary, Physician Primary Care Provider Encounter Details Date Type Department Care Team Description 08/05/2015 Orders Only [facility] Heart [facility] Mixed hyperlipidemia [facility] [address] [facility] [address] [place] [phone] Social History Tobacco Use Types Packs/Day Years [...] Associated Diagnosis Comme nts LIPID PROFILE Routine 08/05/2015 3:11 PM Mixed hyperlipidemia Results for this CDT procedure are i n the results section . ALT Routine 08/05/2015 3:11 PM Mixed hyperlipidemia R esults for this CDT procedure are i n the results section . documented in this encounter Results ALT (08/05/2015 3:11 PM CDT) athologist Signature ALT 6 5 - 30 U/L [facility] Specimen Anatomical Collection Method Collection Time Receive d Time (Source) Location / / Volume Laterality Blood specimen 08/05/2015 3:11 PM 016 3:12 (specimen) CDT PM CDT Juan Farias MD LAB - BLOOD ORDERABLES Performing Organization Address City/State/ZIP Code Phon e Number [facility] [address] [facility] [place] [address] [address] (ABNORMAL) Lipid Profile (08/05/2015 3:11 PM CDT) P athologist Signature Cholesterol 163 <200 mg/dL [facility] AT [facility] Triglycerides 145 <150 mg/dL [facility] Comment: Fasting specimen HDL Cholesterol 39 (L) >39 mg/dL [facility] LDL Cholesterol Calculated 95 <100 mg/dL [facility] Comment: Desirable: <100 mg/dl Non HDL Cholesterol 124 <130 mg/dL [facility] AT [facility] Specimen Anatomical Collection Method Collection Time Receive d Time (Source) Location / / Volume Laterality Blood specimen 08/05/2015 3:11 PM 016 3:12 (specimen) CDT PM CDT Juan Farias MD LAB - BLOOD ORDERABLES Performing Organization Address City/State/ZIP Code Phon e Number [facility] AT [facility] [address] [address] [address] documented in this encounter Visit Diagnoses Diagnosis Mixed hyperlipidemia documented in this encounter Additional Health Concerns Infection Onset Date Last Indicated Resolved Time MRSA-Contact IsolationComment: 0 04/26/2021 11:03 AM DUST BOX WORKER Infection 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 Care Teams Customer Agent Relationship Specialty Start Date End Date No Ref-Primary, Physician PCP - General 07/03/14 12/03/21 documented as of this encounter
--- OUTSIDE RECORDS SUMMARY | 2022-02-12 13:48 | XMS_ITS | Encounter Summary ---
:1960 Author Organization [facility] Address [address] [place] [id number] Care Team Providers Name Role Phone Unavailable Primary Care Provider Unavailable Encounter Details Date Type Department Care Team Description 07/05/2009 Historic Notes INTERFACED REPORT Scarlett Adams , OTR [address] [place], [place] [address] (Wo rk) Social History Tobacco Use Types Packs/Day Years Used Date Smoking Tobacco: Never Alcohol Use Standard Drinks/Week Comments Yes 0 (1 standard drink = 0.6 oz pure alcoho l) socially approx 5 drinks/wk Sex Assigned at Date Recorded Not on file documented as of this encounter Progress Notes Scarlett Adams - 07/10/2010 8:31 AM CDT General Information - Patient Profile See Profile for full history and prior level of Review: function - Referring Physician: Dr. Crain - Patient/Family Goals: to return home soon. - History of Present Admitted through ER due to ETOH intoxication, Problem: had fall on stairs, dehydration - Treatment Diagnosis: Decreased independence with ADL's/IADl's. - Precautions/Limitati_ Fall precautions; personal and bed alarm in ons: place. ETOH withdrawal. - Weight Bearing No weight bearing restrictions Status: - Observations: Patient supine in bed, requesting to use bathroom and willing to work with OT. Cognitive Status - Orientation: person; month and year, not to date, time, hospital and reason for hospitalization. - Level of alert; cooperative Consciousness: - Follows Commands and able to follow single-step instructions; 75% of Answers Questions: the time - Personal Safety and impaired; at risk behaviors demonstrated; Fall Judgment: risk. Verbalizes and demonstrated impaired insight into deficits and fall risk. - Memory: impaired, Immediate recall 4/5 itesm after 2 trials, after 4 minutes 3/5 items. See below. - Comment: Blessed Qkpnnqxahxe-Jqpwsv-Vtzrwuemmazgq Test (Short Blessed Test). Total Weighted Error Score:_12__ Interpretation: 08 = normal to mild impairment, 919 = moderate impairment, 2028 = severe impairment Visual Perception Tracking: Normal Scanning: Within functional limits (WFL) Convergence: Normal Comments: Reports does not wear corrective lenses, no blurred vision noted. Pain - Pain: No Sensation - Sensation: Sensation was appropriate in all areas Muscle Tone - Muscle Tone: Muscle tone was appropriate in all areas Range of Motion - Range of Motion: ROM was appropriate in all areas Strength - Comments: MMT 4+/5 throughout UE's, however had difficulty consistantly following directions. Fine Motor Coordination - Comments: mild tremors noted B hands. Balance Skills Assessment - Sitting Balance: stand-by assist Static: - Sitting Balance: minimum assist (75% patients effort) Dynamic: - Xun-zy-Hjhqj Balance: minimum assist (75% patients effort), mod A stand to sit with toilet transfer - Standing Balance: minimum assist (75% patients effort) Static: - Standing Balance: minimum assist (75% patients effort), with FWW Dynamic: for UE support - Systems Impairment musculoskeletal; cognitive Contributing to Balance Disturbance: - Identified decreased strength; cognition Impairments Contributing to Balance Disturbance: Bed Mobility: Rolling/Turning - Level of stand-by assist [place]: - Physical 1 person assist Assist/Nonphysical Assist: Bed Mobility: Sit to Supine - Level of minimum assist (75% patients effort) [place]: - Physical 1 person assist Assist/Nonphysical Assist: - Assistive Device: bed rails Bed Mobility: Supine to Sit - Level of minimum assist (75% patients effort) [place]: - Physical 1 person assist Assist/Nonphysical Assist: Bed Mobility Analysis - Impairments impaired balance; cognition impaired; decreased Contributing to strength Impaired Bed Mobility: Transfer: Sit to Stand - Level of minimum assist (75% patients effort) [place]: - Physical 1 person assist Assist/Nonphysical Assist: - Assistive Device: rolling walker Transfer: Stand to Sit - Level of moderate assist (50% patients effort) [place]: - Physical 1 person assist Assist/Nonphysical Assist: - Assistive Device: rolling walker Transfer: Sit/Stand Safety Analysis - Transfer Safety decreased balance during turns; losing balance Concerns Noted: backward; with transfers leans posteriorly - Impairments impaired balance; cognition impaired; decreased Contributing to strength Impaired Transfers: Transfer: Bed to Chair/Chair to Bed - Level of minimum assist (75% patients effort) [place]: - Physical 1 person assist Assist/Nonphysical Assist: - Assistive Device: rolling walker Transfer: Bed to Chair Analysis - Transfer Safety losing balance backward Concerns Noted: - Impairments impaired balance; cognition impaired; decreased Contributing to strength Impaired Transfers: Toilet Transfer - Level of moderate assist (50% patients effort) [place]: - Physical 1 person assist Assist/Nonphysical Assist: - Assistive Device: rolling walker; grab bars; with comfort height toilet. Toilet Transfer Analysis - Transfer Safety decreased balance during turns; losing balance Concerns Noted: backward - Impairments cognition impaired; impaired balance; decreased Contributing to strength Impaired Transfers: Toilet Hygiene - Level of moderate assist (50% patients effort), to manage [place]: depends after toileting, losing balance backwards, leaning posteriorly - Physical 1 person assist Assist/Nonphysical Assist: Tub/Shower Transfer Safety Analysis - Comments: To be assessed. Has walk in shower and tub/shower. Upper Body Dressing - Level of minimum assist (75% patients effort) [place]: - Physical 1 person assist Assist/Nonphysical Assist: Lower Body Dressing - Level of moderate assist (50% patients effort) [place]: - Physical 1 person assist Assist/Nonphysical Assist: Self Care Analysis - Impairments impaired balance; cognition impaired; decreased Contributing to strength Impaired Activities of Daily Living: Treatment Plan - Treatments: ADL Retraining, Functional Transfer Training, Strengthening, Cognition Clinical Impression - Skilled Criteria for Yes Therapy Intervention Met: - Assessment: Patient admitted with ETOH and had fall, dehydration. Currently needs assist to manage functional mobility, ADL's due to impaired balance, weakness, impaired cognition and is appropriate for continued OT to reach maximal level of independence and safety with ADL's. Unclear per chart of what plan is regarding CD, at present patient is a fall risk due to deficits and would benefit from rehab stay at discharge, and is not safe to return home at current status. Will continue to update discharge recommendations as patient progresses. - Rehabilitation Good, to achieve stated therapy goals Potential: - Demonstrates need for PT; COLD STORAGE SUPERINTENDENT referral to another service: - Predicted Duration of 5-7 days Therapy: - Predicted Frequency 1x/daily of Therapy: - Discharge Rehabilitation facility; TCU vs. unclear of plan Destination: for discharging re: CD, currently unsafe to return directly home. - Anticipated Equipment Shower chair; Stool riser at Discharge: - Risks and Benefits of Yes Treatment have been explained.: - Patient, family Yes and/or staff in agreement with Plan of Care: Scarlett Davis (OT)[Signed 11:08] Authored: General Information, Cognitive Status, Visual Perception, Pain, Sensation, Muscle Tone, Range of Motion, Strength, Fine Motor Coordination, Balance Skills Assessment, Bed Mobility: Rolling/Turning, Bed Mobility: Sit to Supine, Bed Mobility: Supine to Sit, Bed Mobility Analysis, Transfer: Sitto Stand, Transfer: Stand to Sit, Transfer: Sit/Stand Safety Analysis, Transfer: Bed to Chair/Chair to Bed, Transfer: Bed to Chair Analysis, Toilet Transfer, Toilet Transfer Analysis, Toilet Hygiene, Tub/Shower Transfer Safety Analysis, Upper Body Dressing, Lower Body Dressing, Self Care Analysis, Treatment Plan, Clinical Impression documented in this encounter Plan of Treatment Not on filedocumented as of this encounter Visit Diagnoses Not on filedocumented in this encounter Additional Health Concerns Infection Onset Date Last Indicated Resolved Time MRSA-Contact IsolationComment: 0 04/26/2021 11:03 AM REPRESENTATIVE PERSONAL SERVICE Infection 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
--- OUTSIDE RECORDS SUMMARY | 2022-02-12 13:48 | XMS_ITS | Encounter Summary ---
:1960 Author Organization [facility] Address [facility] [place] [address] Care Team Providers Name Role Phone No Ref-Primary, Physician Primary Care Provider [phone] Juan Farias MD Unavailable Edilia Trejo APRN JEWELRY MANAGER Unavailable Glendy vailable Juan Farias MD Unavailable Denise Connell-C Unavailable [phone] Edilia Trejo APRN JEWELRY MANAGER Unavailable Glendy vailable Denise Connell-C Unavailable [phone] Juan Farias MD Primary Care Provider Dana Barry PA-C Unavailable [phone] Encounter Details Date Type Department Care Team Description 04/25/2012 Office Visit-[facility] Heart Juan Farias MD [address] [place] [address] [place] [address] [phone] Social History Tobacco Use Types Packs/Day Years Used Date Smoking Tobacco: Never Alcohol Use Standard Drinks/Week Comments Yes 0 (1 standard drink = 0.6 oz pure alcoho l) socially approx 5 drinks/wk Sex Assigned at Date Recorded Not on file documented as of this encounter Progress Notes Juan Farias MD - 04/26/2012 9:23 AM CST Progress Note Created by: Juan Farias M.D. DATE: 04/25/2012 ELIJAH BROWN DATE OF : 1960 AGE: [age] years old Referring Physician: JEROME MORENO Referring Clinic: [facility] CURRENT DIAGNOSES 1. - Hypertension, benign, 401.1 2. - Hypercholesterolemia, 272.0 ALLERGIES NKA MEDICATIONS (prior to changes made today) 1. Calcium 600 Mg, 1 p.o. daily 2. Fish Oil 1,000 mg capsule, 2 p.o. daily 3. Lipitor 40 mg tablet, 1 p.o. daily 4. lisinopril 20 mg tablet, 1 p.o. daily 5. Magnesium -, 1 p.o. daily 6. Multi-vitamin W/minerals Capsule, 1 p.o. daily 7. Omeprazole 20 Mg Capsule, Delayed Release(e.c.), 1 p.o. daily 8. Vitamin E 200 Unit Capsule, 1 p.o. daily CHIEF COMPLAINTS Hyperlipidemia follow up HISTORY OF PRESENT ILLNESS I had the opportunity to see Mr. Marcelino Brown in cardiology clinic today for reevaluation of hypertension and dyslipidemia. I last saw Mr. Brown in July of 2010. At that time he had been through a period of alcoholic hepatitis requiring hospitalization and alcohol withdrawal. Fortunately he had been staying away from alcohol for about a year at that time and has still not gone back to using anyalcohol. He seems to be doing very well and is much healthier. He has been taking his medications and is generally feeling good. He has no specific cardiac complaints at this time. He denies chest pain, pressure, and tightness. He has no shortness of breath or other complaints. His last cholesterol numbers were done in June of 2010 and they were excellent. His LDL was 60, HDL44 and triglycerides 149. He missed a few appointments since then but fortunately was able to stay on his medications. He is requesting reevaluation of his cholesterol numbers today. On examination today, his blood pressure is 128/82mmHg, heart rate 68 and weight 217 pounds. His lungs are clear. His heart rhythm is regular. He has no cardiac murmurs or carotid bruits. 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 EYES denies diplopia, history of glaucoma or visual field defects. EARS, NOSE, THROAT, MOUTH denies any hearing loss, epistaxis, hoarseness or difficulty speaking. RESPIRATORY denies dyspnea, cough, wheezing or hemoptysis. CARDIOVASCULAR negative for palpitations, chest pain, orthopnea, PND, peripheral edema, syncope or claudication. ABDOMINAL denies ulcer disease, hematochezia or melena. MUSCULOSKELETAL denies any history of arthritic symptoms or back problems. NEUROLOGICAL denies any history of recurrent strokes, headaches, TIA, or seizure disorder. PSYCHIATRIC denies any history of depression, substance abuse or change in cognitive functions. ENDOCRINE denies any history of thyroid disease or diabetes mellitus. HEMATOLOGICAL/IMMUNOLOGIC denies any food allergies, seasonal allergies, bleeding disorders. PHYSICAL EXAMINATION VITAL SIGNS: Blood Pressure: 128/82Sitting, Left arm, large cuff Pulse- 68.00/min. Weight- 217.00 lbs. Height- 69.00 BMI Measurement: 32 CONSTITUTIONAL cooperative, alert and oriented,well developed, well [...] time, person and place. MEDICATIONS UPDATED/STARTED TODAY: Fish Oil 1,000 mg capsule, 2 p.o. daily, #0 (Zero) Lipitor 40 mg tablet, 1 p.o. daily, #90 (Ninety) lisinopril 20 mg tablet, 1 p.o. daily, #90 (Ninety) MEDICATIONS REFILLED/STOPPED TODAY: Lipitor 40 mg tablet 1 p.o. daily #90 (Ninety) Refill and lisinopril 20 mg tablet 1 p.o. daily #90 (Ninety) Refill IMPRESSIONS: Mr. Marcelino Brown is a 51-year-old gentleman with mild hypertension and dyslipidemia.Those are both under excellent control with medical therapy. I will refill his medications and repeat his cholesterol numbers again today. We will get back to him with those results. We will make any adjustments necessary although I doubt that any will be necessary at this point. I will plan to see him back again in one year and repeat his blood tests at that point. TODAYS ORDERS 1. Lipid profile/ALT Today 2. F/U with Juan Farias MD 1 year 3. Lipid profile/ALT 1 year Juan Farias M.D. documented in this encounter Plan of Treatment Not on filedocumented as of this encounter Visit Diagnoses Not on filedocumented in this encounter Additional Health Concerns Infection Onset Date Last Indicated Resolved Time MRSA-Contact IsolationComment: 0 04/26/2021 11:03 AM ANTENNA INSTALLER Infection erroneous MRSA 05/13/2021 05/13/2021 Rule Out C-difficile 12/06/2021 12/06/2021 12/07/2021 8:46 AM CDT documented as of this encounter Care Teams Curb Hop Relationship Specialty Start Date End Date No Ref-Primary, PCP - General 07/03/14 12/03/21 Physician Juan Farias MD PCP - General Cardiovascular Disease 12/04/21 [address] [place] [address] Juan Farias MD Assigned Heart and 02/14/20 10/03/20 [address] Vascular Provider [address] [place], [place] [id number] Maya, Assigned Heart and 10/04/20 Edilia Chapman APRN Vascular Provider GUILHERME NO INFO AVAILABLE 02/10/2022 Juan Farias MD Assigned Heart and 04/04/21 07/31/[address] Vascular Provider [address] [place] [address] Denise Connell Physician Power Distributor Cardiovascular Disease 08/12/21 MARIETTA Watson [address] [place], [place] [id number] Maya, Assigned Heart and 08/01/21 2 Edilia Chapman APRN Vascular Provider JEWELRY MANAGER NO INFO AVAILABLE 02/10/2022 Denise Connell Assigned Heart and 08/22/21 01/14/22 MARIETTA Watson Vascular Provider [address] [place], [place] [id number] Dana Barry Assigned Heart and 01/15/22 MARIETTA Teague Vascular Provider [address] [place], [place] [id number] documented as of this encounter
--- OUTSIDE RECORDS SUMMARY | 2022-02-12 13:48 | XMS_ITS | Encounter Summary ---
:1960 Author Organization [facility] Address [facility] [place] [address] Care Team Providers Name Role Phone No Ref-Primary, Physician Primary Care Provider [phone] Juan Farias MD Unavailable Edilia Trejo APRN TEST CLERK Unavailable Glendy vailable Juan Farias MD Unavailable Denise Connell-C Unavailable [phone] Edilia Trejo APRN TEST CLERK Unavailable Glendy vailable Denise Connell-C Unavailable [phone] Juan Farias MD Primary Care Provider Dana Barry PA-C Unavailable [phone] Encounter Details Date Type Department Care Team Description 08/20/2010 Office Visit-[facility] Heart Juan Farias MD [address] [place] [address] [place] [address] [phone] Social History Tobacco Use Types Packs/Day Years Used Date Smoking Tobacco: Never Alcohol Use Standard Drinks/Week Comments Yes 0 (1 standard drink = 0.6 oz pure alcoho l) socially approx 5 drinks/wk Sex Assigned at Date Recorded Not on file documented as of this encounter Progress Notes Juan Farias MD - 09/01/2010 10:14 AM CDT Progress Note Created by: Juan Jarrett, M.D. DATE: 08/20/2010 SARAH BETH BROWN DATE OF : 1960 AGE: [age] years old Referring Physician: JEROME MORENO Referring Clinic: [facility] CURRENT DIAGNOSES 1. - Hypercholesterolemia, 272.0 2. - Hypertension, benign, 401.1 ALLERGIES NKA MEDICATIONS (prior to changes made today) 1. Magnesium -, 1 p.o. daily 2. Calcium 600 Mg, 1 p.o. daily 3. Vitamin E 200 Unit Capsule, 1 p.o. daily 4. Multi-vitamin W/minerals Capsule, 1 p.o. daily 5. Omeprazole 20 Mg Capsule, Delayed Release(e.c.), 1 p.o. daily 6. Lipitor 40 Mg Tablet, 1 p.o. daily 7. Lisinopril 20 Mg Tablet, 1 p.o. daily CHIEF COMPLAINTS Hyperlipidemia follow up HISTORY OF PRESENT ILLNESS I had the opportunity to see Mr. Sarah Beth Brown in Cardiology Clinic today for reevaluation of hypertension and dyslipidemia. It has been two years since I have seen him due to a lapse in his insurance.During that time he went through a period of alcohol abuse and withdrawal and now has refrained fromalcohol for about a year. He is back working again and decided it was time to come and get his medications refilled. He seems to be doing well. 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 He tells me he refrains from indulging in the cheesecakes. He is not experiencing any chest pain, shortness of breath, or other concerning cardiac symptoms. He has been off his Lipitor for cost reasons for about a year. His cholesterol numbers today reflect that. His total cholesterol is 254, HDL 37, LDL 188, and triglycerides 146. His total cholesterol to HDL ratio is 6.9. Fortunately, his liver function test is normal at 23. He does have a history of acute alcoholic hepatitis in June,, when he was hospitalized at [facility] for alcohol withdrawal issues. On examination today his blood pressure is 130/80, heart rate 68, and weight 212 pounds. He has continued to take the lisinopril which has been less expensive. His lungs are clear. His heart rhythm is regular. He has no cardiac murmurs or carotid bruits. PAST HISTORY Past Medical Illnesses: hypertension, hypercholesterolemia, Alcohol abuse/ dependency/ 07-06-09 acute Withdrawal- delirium Tremers and acute renal failure, anemia, Alcholic hepatitis Infectious History: usual childhood illnesses of mumps, measles and chickenpox Surgeries/Procedures - General: hernia repair Cardiology Procedures-NonInvasive: stress echocardiogram December 1999, echocardiogram Jun 2008 PMx Echo Results: 06/30 Probably normal LV without obvious regional wall motion abnormality PMx Stress Echo Results: 06/1999 Left Ventricular Ejection Fraction: EF<GT>55% by Echo -Jun 2008 FAMILY HISTORY: Father - hypertension; Mother - alive and well; Brother 1 - alive and well; Brother 2 - alive and well; Sister 1 - alive and well; SOCIAL HISTORY Alcohol Use - history of alcohol abuse; Smoking - denies tobacco use; Diet - caffeine use-rare and regular diet without modifications; Lifestyle - single; Exercise - some exercise and walking; Seat Belt Use - always; 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 PHYSICAL EXAMINATION VITAL SIGNS: Blood Pressure: 130/80Sitting, Left arm, large cuff Pulse- 68.00/min. Weight- 212.00 lbs. Height- 69.00 Temperature- .00 CONSTITUTIONAL cooperative, alert and oriented,well developed, well [...] time, person and place. MEDICATIONS UPDATED/STARTED TODAY: Lipitor 40 Mg Tablet, 1 p.o. daily, #90 (Ninety) Lisinopril 20 Mg Tablet, 1 p.o. daily, #90 (Ninety) Omeprazole 20 Mg Capsule, Delayed Release(e.c.), 1 p.o. daily, #0 MEDICATIONS REFILLED/STOPPED TODAY: Lisinopril 20 Mg Tablet 1 p.o. daily #30 Refill, Lipitor 40 Mg Tablet 1 p.o. daily #-1 Substitution,Omeprazole 20 Mg Capsule and Delayed Release(e.c.) 2 p.o. daily DIRECTED Directions Changed-No Abbrvs IMPRESSIONS/PLAN Mr. Sarah Beth Brown is a 49-year-old gentleman with hypertension and severe dyslipidemia. He has been off of his Lipitor for cost reasons but has continued his lisinopril. His blood pressure looks okay, but his cholesterol numbers are obviously not well controlled. I will restart his Lipitor at 40 mg q.d. and I have given him a coupon card to help with that cost. I will plan on rechecking his cholesterol numbers in about six weeks, and will plan on seeing him back again here in the office in one year.He understands to contact me if he has any issues in the meantime. I have also suggested he start using aspirin 81 mg q.d. TODAYS ORDERS 1. Lipid profile/ALT 1 day 2. Lipid profile/ALT 6 weeks 3. Lipid profile/ALT 1 year 4. F/U with Juan Farias MD 1 year Juan Farias M.D. documented in this encounter Plan of Treatment Not on filedocumented as of this encounter Visit Diagnoses Not on filedocumented in this encounter Additional Health Concerns Infection Onset Date Last Indicated Resolved Time MRSA-Contact IsolationComment: 0 04/26/2021 11:03 AM PACKAGE CHECKER Infection erroneous MRSA 05/13/2021 05/13/2021 Rule Out C-difficile 12/06/2021 12/06/202112/0712/07/2021 8:46 AM CDT documented as of this encounter Care Teams Tool Distributor Relationship Specialty Start Date End Date No Ref-Primary, PCP - General 07/03/14 12/03/21 Physician Juan Farias MD PCP - General Cardiovascular Disease 12/04/[address] [place] [address] Juan Farias MD Assigned Heart and 02/14/20 10/03/[address] Vascular Provider [address] [place] [address] Maya, Assigned Heart and 10/04/20 Edilia Chapman APRN Vascular Provider TEST CLERK NO INFO AVAILABLE 02/10/2022 Juan Farias MD Assigned Heart and 04/04/21 07/31/[address] Vascular Provider [address] [place] [address] Denise Connell Physician Greenskeeper Head Cardiovascular Disease 08/12/21 MARIETTA Watson [address] [place] [address] Maya, Assigned Heart and 08/01/21 2 Edilia Chapman APRN Vascular Provider TEST CLERK NO INFO AVAILABLE 02/10/2022 Denise Connell Assigned Heart and 08/22/21 01/14/22 MARIETTA Watson Vascular Provider [address] [place], [place] [address] Dana Barry Assigned Heart and 01/15/22 MARIETTA Teague Vascular Provider [address] [place], [place] [id number] documented as of this encounter
--- OUTSIDE RECORDS SUMMARY | 2022-02-12 13:48 | XMS_ITS | Encounter Summary ---
:1960 Author Organization [place] Address [address] [place] [address] Care Team Providers Name Role Phone Unavailable Primary Care Provider Unavailable Encounter Details Date Type Department Care Team Description 08/20/2010 Historic Results [facility] Heart Unknown, Doct or, Clinic [address] [place] [address] Social History Tobacco Use Types Packs/Day Years [...] Date/Time Associated Comments Diagnosis GEMMS HISTORICAL Routine 08/20/2010 12:00 AM Resu lts for this RESULTS CDT procedure are i n the results section. documented in this encounter Results (ABNORMAL) GEMMS Historical Results (08/20/2010 12:00 AM CDT) [facility] gist Method Time Signature Triglycerides 146 0 - 150 GEMMS mg/dL HISTORICAL RESULTS Cholesterol, 254 (H) 0 - 199 GEMMS Total mg/dL HISTORICAL RESULTS HDL Cholesterol 37 (L) >40 mg/dL GEMMS HISTORICAL RESULTS LDL Cholesterol 188 (H) 70 - 160 GEMMS Calculated CALC HISTORICAL RESULTS VLDL - Calc 29 <40 CALC GEMMS HISTORICAL RESULTS Cholesterol/HDL 6.9 (H) <4.4 CALC GEMMS Ratio HISTORICAL RESULTS ALT 23 3 - 60 GEMMS U/L HISTORICAL RESULTS Specimen (Source) Anatomical Location Collection Method / Collectio n Time Received Time / Laterality Volume 08/20/2010 08/20/2010 Doctor Unknown MD LABORATORY Performing Organization Address City/State/ZIP Code Phon e Number GEMMS HISTORICAL RESULTS documented in this encounter Visit Diagnoses Not on filedocumented in this encounter Additional Health Concerns Infection Onset Date Last Indicated Resolved Time MRSA-Contact IsolationComment: 0 04/26/2021 11:03 AM DIVISIONAL MERCHANDISING MANAGER Infection 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
--- OUTSIDE RECORDS SUMMARY | 2022-02-12 13:48 | XMS_ITS | Encounter Summary ---
:1960 Author Organization [place] Address [address] [place] [address] Care Team Providers Name Role Phone No Ref-Primary, Physician Primary Care Provider [phone] Reason for Visit Reason Onset Date Comments Refill Request 09/05/2017 amlodipine Encounter Details Date Type Department Care Team Description 09/05/2017 Refill [facility] Heart DucomLisseth yoo, Refill Request Clinic Annika HORNE (amlodipine) [address] [facility] [address] [place] [address] Social History Tobacco [...] Time MRSA-Contact IsolationComment: 0 04/26/2021 11:03 AM ROLLER BEARING INSPECTOR Infection 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 Care Teams Color Grinder Relationship Specialty Start Date End Date No Ref-Primary, Physician PCP - General 07/03/14 12/03/21 documented as of this encounter
--- OUTSIDE RECORDS SUMMARY | 2022-02-12 13:48 | XMS_ITS | Encounter Summary ---
:1960 Author Organization [place] Address [address] [place] [address] Care Team Providers Name Role Phone No Ref-Primary, Physician Primary Care Provider [phone] Encounter Details Date Type Department Care Team Description 09/15/2017 Orders Only [facility] Heart Mixe d hyperlipidemia; Clinic [place] Anna mcmullen Benign essential hypertensio n [address] [facility] [address] [place] [address] Social History Tobacco Use Types Packs/Day Years [...] Associated Diagnosis Comme nts LIPID PROFILE Routine 09/15/2017 8:20 AM Mixed hyperlipidemia Results for this CDT procedure are i n the results section. ALT Routine 09/15/2017 8:20 AM Mixed hyperlipidemia R esults for this CDT procedure are i n the results section. BASIC METABOLIC Routine 09/15/2017 8:20 AM Benign essential Re sults for this PANEL CDT hypertension procedure are i n the results section. documented in this encounter Results (ABNORMAL) Basic metabolic panel (09/15/2017 8:20 AM CDT) P athologist Signature Sodium 138 136 - 145 09/15/2017 [facility] mmol/L 9:16 AM CDT [facility] Potassium 4.1 3.5 - 5.1 09/15/2017 [facility] mmol/L 9:16 AM CDT [facility] Chloride 103 98 - 107 09/15/2017 [facility] mmol/L 9:16 AM CDT [facility] Carbon Dioxide 25 23 - 29 09/15/2017 [facility] mmol/L 9:16 AM T [facility] Anion Gap 14.1 6 - 17 09/15/2017 [facility] mmol/L 9:16 AM T [facility] Glucose 126 (H) 70 - 105 09/15/2017 [facility] mg/dL 9:16 AM T [facility] Comment: Fasting specimen Urea Nitrogen 14 7 - 30 mg/dL 09/15/2017 9:16 AM [facility] Creatinine 1.22 0.70 - 1.30 09/15/2017 9:16 AM [facility] AT mg/dL T [facility] GFR Estimate 62 >60 09/15/2017 9:16 AM [facility] AT mL/min/1.7m2 T [facility] GFR Estimate If 75 >60 09/15/2017 9:16 AM [facility] AT Black mL/min/1.7m2 T [facility] Calcium 9.7 8.5 - 10.5 09/15/2017 9:16 AM [facility] mg/dL T [facility] Specimen Anatomical Collection Method Collection Time Receive d Time (Source) Location / / Volume Laterality Blood specimen 09/15/2017 8:20 AM 018 8:21 (specimen) CDT AM CDT Juan Farias MD LAB - BLOOD ORDERABLES Performing Organization Address City/State/ZIP Code Phon e Number [facility] [address] [place] [address] [address] ALT (09/15/2017 8:20 AM CDT) P athologist Signature ALT 8 5 - 30 U/L 09/15/2017 [facility] 9:16 AM T [facility] Specimen Anatomical Collection Method Collection Time Receive d Time (Source) Location / / Volume Laterality Blood specimen 09/15/2017 8:20 AM 018 8:21 (specimen) CDT AM CDT Juan Farias MD LAB - BLOOD ORDERABLES Performing Organization Address City/State/ZIP Code Phon e Number [facility] [address] [address] [address] Lipid Profile (09/15/2017 8:20 AM CDT) P athologist Signature Cholesterol 163 <200 mg/dL 09/15/2017 [facility] 9:16 AM CDT [facility] Triglycerides 119 <150 mg/dL 09/15/2017 [facility] 9:16 AM T [facility] Comment: Fasting specimen HDL Cholesterol 46 >39 mg/dL 09/15/2017 9:16 AM [facility] AT [facility] LDL Cholesterol 93 <100 mg/dL 09/15/2017 9:16 AM [facility] Calculated [facility] Comment: Desirable: <100 mg/dl Non HDL Cholesterol 117 <130 mg/dL 09/15/2017 9:16 AM [facility] AT [facility] Specimen Anatomical Collection Method Collection Time Receive d Time (Source) Location / / Volume Laterality Blood specimen 09/15/2017 8:20 AM 018 8:21 (specimen) CDT AM CDT Juan Farias MD LAB - BLOOD ORDERABLES Performing Organization Address City/State/ZIP Code Phon e Number [facility] [address] [address] [address] documented in this encounter Visit Diagnoses Diagnosis Mixed hyperlipidemia Benign essential hypertension Essential hypertension, benign documented in this encounter Additional Health Concerns Infection Onset Date Last Indicated Resolved Time MRSA-Contact IsolationComment: 0 04/26/2021 11:03 AM ANTISQUEAK FILLER Infection 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 Care Teams Physics Instructor Relationship Specialty Start Date End Date No Ref-Primary, Physician PCP - General 07/03/14 12/03/21 documented as of this encounter
--- OUTSIDE RECORDS SUMMARY | 2022-02-12 13:48 | XMS_ITS | Encounter Summary ---
:1960 Author Organization [place] Address [address] [place] [address]. [place] [address] Care Team Providers Name Role Phone No Ref-Primary, Physician Primary Care Provider Reason for Visit Reason Onset Date Comments Refill Request 06/01/2015 Lipitor, Lisinopril OV 08/05/2015 Encounter Details Date Type Department Care Team Description 06/01/2015 Refill [facility] Heart JarrettJuan ceron, Refill Request (Lipitor, Clinic Annika HERBERT Lisinopril OV 08/05/2015) [address] [place] [address] [place], [place] [address] (Wo rk) Social History Tobacco Use Types [...] Visit Diagnoses Diagnosis Mixed hyperlipidemia - Primary HTN (hypertension) Unspecified essential hypertension documented in this encounter Additional Health Concerns Infection Onset Date Last Indicated Resolved Time MRSA-Contact IsolationComment: 0 04/26/2021 11:03 AM WALLPAPER CONSULTANT Infection 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 Care Teams Dry Room Attendant Relationship Specialty Start Date End Date No Ref-Primary, Physician PCP - General 07/03/14 12/03/21 documented as of this encounter
--- OUTSIDE RECORDS SUMMARY | 2022-02-12 13:48 | XMS_ITS | Encounter Summary ---
:1960 Author Organization [place] Address [address] [place] [address] Care Team Providers Name Role Phone Unavailable Primary Care Provider Unavailable Encounter Details Date Type Department Care Team Description 08/20/2010 Orders Only [facility] Tristan Egan, [facility] [id number] [place] [phone] [place] [address] (Wo rk) Social History Tobacco Use Types [...] Associated Diagnosis Comme nts LIPID PROFILE Routine 08/20/2010 Results for th is procedure are in the resu lts section. documented in this encounter Results (ABNORMAL) Lipid Profile (08/20/2010) [facility] Method Time Signature Cholesterol 254 (A) 115 - 199 [facility] mg/dL Triglycerides 146 mg/dL [facility] HDL Cholesterol 37 mg/dL [facility] LDL Cholesterol 188 mg/dL [facility] Calculated Cholesterol/HDL 6.9 [facility] Ratio Specimen (Source) Anatomical Location Collection Method / Collectio n Time Received Time / Laterality Volume Blood specimen (specimen) Provider Abstract LAB - BLOOD ORDERABLES Performing Organization Address City/State/ZIP Code Phon e Number [facility] documented in this encounter Visit Diagnoses Not on filedocumented in this encounter Additional Health Concerns Infection Onset Date Last Indicated Resolved Time MRSA-Contact IsolationComment: 0 04/26/2021 11:03 AM LEAD CARE MANAGER Infection 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
--- OUTSIDE RECORDS SUMMARY | 2022-02-12 13:48 | XMS_ITS | Encounter Summary ---
:1960 Author Organization [place] Address [address] [place] [address] Care Team Providers Name Role Phone No Ref-Primary, Physician Primary Care Provider Reason for Visit Reason Onset Date Comments Results 08/12/2016 BMP Encounter Details Date Type Department Care Team Description 08/12/2016 Telephone [facility] Heart Raghu Shultz, Results (BMP) Clinic Annika HORNE [address] [facility] [address] [place] [address] Social History Tobacco Use Types Packs/Day Years Used Date Smoking Tobacco: Never Alcohol Use Standard Drinks/Week Comments No 0 (1 standard drink = 0.6 oz pure alcoho l) quit 5 years ago Sex Assigned at Date Recorded Not on file documented as of this encounter Miscellaneous Notes Telephone Encounter - Angelica Medina RN - 08/12/2016 4:48 PM CDT Patient returned call from Caller ID and was notified of K+ within normal limits. Patient verbalizedunderstanding. Telephone Encounter - Raghu Shultz, RN - 08/12/2016 4:35 PM CDT Images from the original note were not included. Attempted to reach patient at 4:30 to inform him of BMP results but no answer and no voicemail. BC[place]ford Ref Range & Units 3:03 PM 8d ago ?? Sodium 133 - 144 mmol/L 137 138R ?? Potassium 3.4 - 5.3 mmol/L 4.0 5.2 (H)R ?? Chloride 94 - 109 mmol/L 104 105R ?? Carbon Dioxide 20 - 32 mmol/L 26 26R ?? Anion Gap 3 - 14 mmol/L 7 12.2R ?? Glucose 70 - 99 mg/dL 88 118 (H)R ?? Urea Nitrogen 7 - 30 mg/dL 19 22 ?? Creatinine 0.66 - 1.25 mg/dL 1.31 (H) 1.57 (H)R ?? GFR Estimate >60 mL/min/1.7m2 57 (L) 46 (L) ?? Comments: Non GFR Calc ?? GFR Estimate If Black >60 mL/min/1.7m2 69 56 (L) ?? Comments: GFR Calc ?? Calcium 8.5 - 10.1 mg/dL 9.0 9.4R Telephone Encounter Encounter Date: 08/04/2016 Raghu Shultz RN []Hide copied text []Elroyver for attribution information Patient was called again and he answered. I reviewed the BMP results and told him to stop his OTC K+supplement and his lisinopril. We will start amlodipine 5 MG. He will come back to clinic in 2 weeksfor an BPM. Patient was very agreeable to plan and stated understanding. 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
--- OUTSIDE RECORDS SUMMARY | 2022-02-12 13:49 | XMS_ITS | Encounter Summary ---
:1960 Author Organization [place] Address Count includes the [facility] [place] [address] Care Team Providers Name Role Phone Unavailable Primary Care Provider Unavailable Encounter Details Date Type Department Care Team Description 03/20/2009 Historic Notes INTERFACED REPORT Eloina Alford, PT [facility] C [facility] [address] [facility] [address] [place], [place] [address] (Wo rk) Social History Tobacco Use Types Packs/Day Years Used Date Smoking Tobacco: Never Alcohol Use Standard Drinks/Week Comments Yes 0 (1 standard drink = 0.6 oz pure alcoho l) socially approx 5 drinks/wk Sex Assigned at Date Recorded Not on file documented as of this encounter Progress Notes Eloina Alford - 07/10/2010 3:08 PM CDT General Information - Patient Profile See Profile for full history and prior level of Review: function - Onset Date: - Referring Physician: Dr. Traylor - Patient/Family Goals: To get home as soon as I can - History of Present Pt admitted 03/13/09 with 4 day-long progressive Problem: weakness, syncope and SOB - confusion and respiratory distress in ER - cardioverted; then mechanical ventilation; acute renal failure. Pt was admitted to ICU - transferred to medical floor yesterday. PMH signif for: alcohol abuse, alcoholic hepatitis, HTN. Pt lives with significant other in house - has stairs. - Treatment Diagnosis: impaired balance and functional mobility; generalized weakness - Precautions/Limitati_ Fall precautions; MRSA contact precautions ons: - Weight Bearing No weight bearing restrictions Status: - Observations: Pt awake and alert; agreeable to PT Eval Cognitive Status - Orientation: orientation to person, place and time - Level of alert Consciousness: - Follows Commands and 100% of the time Answers Questions: - Personal Safety and impaired Judgment: Pain - Pain: No Range of Motion - Range of Motion: ROM was appropriate in all areas - Comment: LE ROM grossly WFL bilat Strength - Strength: Strength was appropriate in all areas - Comments: MMT 5/5 all major mm groups LE Generalized strength appears below baseline Bed Mobility: Rolling/Turning - Level of independent [place]: Bed Mobility: Scooting/Bridging - Level of independent [place]: Bed Mobility: Sit to Supine - Level of independent [place]: Bed Mobility: Supine to Sit - Level of independent [place]: Transfer: Sit to Stand - Level of stand-by assist [place]: - Weight-Bearing full weight-bearing Restrictions: - Assistive Device: pt held onto IV pole Transfer: Stand to Sit - Level of stand-by assist [place]: - Physical verbal cues; for safe hand placement Assist/Nonphysical Assist: - Weight-Bearing full weight-bearing Restrictions: - Assistive Device: no AD - pt used IV pole Sit/Stand Transfer Safety Analysis - Impairments impaired balance Contributing to Impaired Transfers: Gait Skills - Level of minimum assist (75% patients effort) [place]: - Assistive Device: no AD - held onto IV pole initially with 1 hand; then both - Gait Distance: 75 feet Gait Analysis - Gait Pattern Used: swing-through gait - Gait Deviations decreased heath; increased time in double Noted: stance; decreased step length - Impairments impaired balance; decreased strength Contributing to Gait Deviations: - Comments: Pt mildly unsteady with 1 episode of near LOB with initiation of gait - required assist to retain balance Stairs/Curb - Stairs: pt has stairs at home Balance Skills Assessment - Sitting Balance: independent Static: - Sitting Balance: stand-by assist, backward trunk lean with LE Dynamic: activities seated at EOB - Ccl-wt-Ijffi Balance: stand-by assist - Standing Balance: minimum assist (75% patients effort) Static: - Standing Balance: minimum assist (75% patients effort) Dynamic: - Identified decreased strength; impaired coordination Impairments Contributing to Balance Disturbance: - Comments: pt unsteady with slightly impaired judgement; so requires alert CGA during all mobility Muscle Tone - Muscle Tone: Muscle tone was appropriate in all areas Treatment Plan - Treatments: Gait Training, Transfer Training, Balance/Coordinating Training Techniques Clinical Impression - Skilled Criteria for Yes Therapy Intervention Met: - PT Practice Pattern: Cardiopulmonary - Assessment: 48 y.o. male alcoholic admitted 7 days ago in acute renal failure and respiratory distress, requiring intubation, cardioversion in the ER, then admitted to ICU until transfer to medical floor yesterday. Pt lives in house with girlfriend and was previously independent for all mobility without AD. Pt presents with generalized weakness and decreased activity tolerance, impaired balance and transfers/ambulation below his baseline. Pt is appropriate for skilled PT to address these deficits and maximize his functional mobility safely. - Rehabilitation Good, to achieve stated therapy goals Potential: - Predicted Duration of 3-4 days Therapy: - Predicted Frequency once per day of Therapy: - Discharge Home; Home with assist Destination: - Risks and Benefits of Yes Treatment have been explained.: - Patient, family Yes and/or staff in agreement with Plan of Care: ELOINA Gayle (PT)[Signed 13:49] Authored: General Information, Cognitive Status, Pain, Range of Motion, Strength, Bed Mobility: Rolling/Turning, Bed Mobility: Scooting/Bridging, Bed Mobility: Sit to Supine, Bed Mobility: Supine to Sit, Transfer: Sit to Stand, Transfer: Stand to Sit, Sit/Stand Transfer Safety Analysis, Gait Skills, Gait Analysis, Stairs/Curb, Balance Skills Assessment, Muscle Tone, Treatment Plan, Clinical Impression documented in this encounter Plan of Treatment Not on filedocumented as of this encounter Visit Diagnoses Not on filedocumented in this encounter Additional Health Concerns Infection Onset Date Last Indicated Resolved Time MRSA-Contact IsolationComment: 0 04/26/2021 11:03 AM 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
--- OUTSIDE RECORDS SUMMARY | 2022-02-12 13:49 | XMS_ITS | Encounter Summary ---
:1960 Author Organization [place] Address [address] [place] [address] Care Team Providers Name Role Phone Unavailable Primary Care Provider Unavailable Encounter Details Date Type Department Care Team Description 03/20/2009 Results Only [facility] Liam Traylor MD Hospital Results [address] [place], [place] [address] (Wo rk) Social History [...] Procedure Name Priority Date/Time Associated Comments Diagnosis HC VIDEO SPEECH Routine 03/20/2009 10:43 AM Resul ts for this EVALUATION KEYSMITH procedure are i n the results section. documented in this encounter Results SPEECH EVALUATION, COMPLEX (03/20/2009 10:43 AM KEYSMITH) Anatomical Region Laterality Modality Other Specimen (Source) Anatomical Collection Method Collection Time Re ceived Time Location / / Volume Laterality 03/20/2009 10:43 AM KEYSMITH Impressions 03/20/2009 11:20 AM KEYSMITH VIDEO SPEECH EVALUATION Mar 20, 2009 10: 43:00 AM COMPARISON: None. HISTORY: Aspiration FLUOROSCOPY TIME: 1 minute 32 seconds. TECHNIQUE: A modified barium swallow is performed with speech pathology. Note that only the cervical e sophagus was evaluated in lateral view. FINDINGS: No penetration or aspiration w ith any tested consistency of barium. IMPRESSION: No penetration or aspiration with any tested consistency of barium. Please see the speech pathology report f or further details. Liam Traylor MD GENERAL IMAGING documented in this encounter Visit Diagnoses Not on filedocumented in this encounter Additional Health Concerns Infection Onset Date Last Indicated Resolved Time MRSA-Contact IsolationComment: 0 04/26/2021 11:03 AM KEYSMITH Infection 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
--- OUTSIDE RECORDS SUMMARY | 2022-02-12 13:49 | XMS_ITS | Encounter Summary ---
:1960 Author Organization [place] Address [address] [place] [address] Care Team Providers Name Role Phone Unavailable Primary Care Provider Unavailable Encounter Details Date Type Department Care Team Description 03/21/2009 Historic Notes INTERFACED REPORT Interface, Transcript on, Social History Tobacco Use Types Packs/Day Years Used Date Smoking Tobacco: Never Alcohol Use Standard Drinks/Week Comments Yes 0 (1 standard drink = 0.6 oz pure alcoho l) socially approx 5 drinks/wk Sex Assigned at Date Recorded Not on file documented as of this encounter Progress Notes Interface, Hospice Volunteer - 07/10/2010 3:05 PM CDT Patient Status - Physical status Stable (s/s of potential complications absent or manageable) - Psychosocial status Stable Discharge Planning - Discharge From: [facility] - Patient Care Unit: MS3 - PCU - Discharge To: Home - Phone number after [phone] discharge: - Method of discharge: Wheel Chair - Transportation: Private Discharge Information - Valuables returned Valuables returned - Discharge information Discharge instructions reviewed with pt/family/so - Accompanied by friend - Mode of Travel Wheelchair Medications and Prescriptions - Medications and Medications returned to patient Prescriptions Prescriptions given to patient Support Services - Is home care No recommended? - Supplies sent/ordered No - Equipment No sent/ordered - Other Services No arranged Special Care Needs and Instructions - Diet Instructions: regular - Activity as tolerated Instructions: - Report temp if 101.5 degrees F greater than: - Symptoms/Problems to decreased activity tolerance, pain, nausea, look for at home- vomiting, shortness of breath call the physician about: - Who patient should Primary Md call: - Phone number of [facility] [phone] patient should call: - Is patient going home No with IV Catheter?: Follow Up Care - Physician/clinician Primary MD name: - - When to see 1-2 weeks physician/clinician: Lucero Mccauley (RN)[Signed 12:31] Authored: Patient Status, Discharge Planning, Discharge Information, Medications and Prescriptions, Support Services, Special Care Needs and Instructions, Follow Up Care Interface, Hospice Volunteer - 07/10/2010 3:05 PM CDT Discharge Summary - Reason for Discharge Discharge from facility - Progress toward Goals partially met, Did not meet goal of amb achieving short term endurance/assist/stairs goals/termite helper goals - Barriers to achieving Limited tolerance for therapy goals - Continued Therapy Yes Recommended - Rationale/ Per chart review needing further PT to achieve Recommendations goals Perlita Espinoza (PT)[Signed 15:31] Authored: Discharge Summary documented in this encounter Plan of Treatment Not on filedocumented as of this encounter Visit Diagnoses Not on filedocumented in this encounter Additional Health Concerns Infection Onset Date Last Indicated Resolved Time MRSA-Contact IsolationComment: 0 04/26/2021 11:03 AM 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
--- OUTSIDE RECORDS SUMMARY | 2022-02-12 13:49 | XMS_ITS | Encounter Summary ---
:1960 Author Organization [facility] Address [address] [place] [address] Care Team Providers Name Role Phone Unavailable Primary Care Provider Unavailable Encounter Details Date Type Department Care Team Description 03/20/2009 Historic Notes INTERFACED REPORT Interface, Transcript onMD Social History Tobacco Use Types Packs/Day Years Used Date Smoking Tobacco: Never Alcohol Use Standard Drinks/Week Comments Yes 0 (1 standard drink = 0.6 oz pure alcoho l) socially approx 5 drinks/wk Sex Assigned at Date Recorded Not on file documented as of this encounter Progress Notes Interface, Apigee Developer - 07/10/2010 3:09 PM CDT Nutrition Diagnosis - Nutrition diagnosis: PREVIOUS (03/16): Inadequtate oral food/beverage intake related to intubation AEB pt need for TF. Anthropometrics - Admission weight: 86kg - Current weight: 84.2kg - Dosing weight: 86kg Nutrition Prescription/Intake Tolerance - Nutrition CLear Liquid Prescription: HTL - Comments:: TF d/c'd on 03/18. - Intake/tolerance: Per CLASP MACHINE OPERATOR, pt was drinking thin liquids last night and needs to be on HTL. Pt with good intake on clears with assist. I.O: 3650/1900. BM X 7 yest, x 2 today. Labs/Medications - Labs: Reviewed - Lab comments: BUN/Cr WNL now. Mg++ 1.2 - low - Medications: Reviewed - Medication comments: M-SSI Electrolyte replacement Procedures - Procedures with s/p shashank catheter placement for dailysis nutritional Extubated 03/18 implications: Physical Findings - Comments: C-diff toxins A and B negative ARF improved CLASP MACHINE OPERATOR following + Temp Estimated Needs - Needs based on: Admit wt: 86kg - Energy needs: 5182-3397 kcal (25-30kcal/kg) - wt maintenance - Protein needs: 85-100 g pro (1.2-1.4g/kg) - repletion - Fluid needs: 0442-9770 mL fluid (25-30mL/kg) Evaluation - Progress toward Pt to receive 100% nutrition from TF. (Goal was previous goals: met - but pts TF pulled on 03/18 d/t extubation) BUN/Cr to continue to improve. (Goal met). Current Nutrition Diagnosis - Current nutrition Inadequate oral food/beverage intake relate to diagnosis detail: diet order AEB pt only on clear liquids, HTL - not meeting kcal/pro needs. Interventions - Interventions: Spoke with CLASP MACHINE OPERATOR regarding diet order. Pt on CLear liquids, HTL. WIll send frosty thick/resource shake with meals TID once diet adv beyond clears. Encourage intake. - Goals: Pt to consume >50% of meals. - Follow-up: Monitor po intake, diet adv per CLASP MACHINE OPERATOR. Monitor labs - protein labs, electrolytes. Monitor stooling. - Recommendations: Rec imodium. Rec diet adv per CLASP MACHINE OPERATOR. Signatures NIRMALA LAND (RD, LD)[Signed 10:07] Authored: Nutrition Diagnosis, Anthropometrics, Nutrition Prescription/Intake Tolerance, Labs/Medications, Procedures, Physical Findings, Estimated Needs, Evaluation, Current Nutrition Diagnosis, Interventions Interface, Apigee Developer - 07/10/2010 3:09 PM CDT General Information - Patient Profile See Profile for full history and prior level of Review: function, DX: ARF - Patient/Family Goals: Did not state - Swallowing Videofluoroscopic evaluation; Functional Evaluation: Assessment Score (FAS): 7 = No Impairment 6 = Minimal Impairment 5 = Mild Impairment 4 = Mild - Moderate Impairment 3 = Moderate Impairment 2 = Moderate - Severe Impairment 1 = Severe Impairment 0 = Not Tested (See Comment) - Comments: PMH:extubated 03/18/09 in the AM, ETOH, Contact precautions VFSS Evaluation: Thin Liquid Texture Trial - Mode of Presentation cup; spoon; straw - Order of Presentation 7, 10, 11, 12, 13 - Preparatory Phase WFL - Oral Phase WFL - Pharyngeal Phase delayed swallow reflex - Chesterk's (1) no aspiration, contrast does not enter Penetration airway Aspiration Scale: Thin Liquid Trial Results VFSS Evaluation: [place]-Thick Texture Trial - Mode of Presentation cup; spoon - Order of Presentation 4, 5, 6, - Preparatory Phase WFL - Oral Phase WFL - Rosenbek's (1) no aspiration, contrast does not enter Penetration airway Aspiration Scale: [place]-Thick Liquid Trial Results VFSS Evaluation: Honey-Thick Texture Trial - Order of Presentation 1, 2, 3, - Preparatory Phase WFL - Oral Phase WFL - Pharyngeal Phase residue in pyriform sinus VFSS Evaluation: Pudding-Thick Texture Trial - Order of Presentation 8 - Preparatory Phase WFL - Oral Phase WFL - Pharyngeal Phase residue in pyriform sinus - Rosenbek's (1) no aspiration, contrast does not enter Penetration airway Aspiration Scale: Pudding-Thick Liquid Trial Results VFSS Evaluation: Semisolid Texture Trial - Mode of Presentation spoon - Order of Presentation 9 - Preparatory Phase WFL - Oral Phase WFL - Pharyngeal Phase WFL - Rosenbek's (1) no aspiration, contrast does not enter Penetration airway Aspiration Scale: Semisolid Food Trial Results Swallowing Compensations - Swallowing Pacing; Reduce amounts Compensations - Results no difficulties noted Impression - Skilled Criteria for Yes Therapy Intervention Met - Assessment Oropharyngeal swallow WFL for softer foods and thin liquids. Mild delay resolved over time. Mild residue with thicker consistencies cleared with alternating textures. Question PO intake timliness to maintain nutritional status - RD monitoring. Slow intake, therefore Dysphagia Diet Level 3 (Advanced) to help increase speed of mastication and it's impact on O2 sats and RR. - Swallowing DIET RECOMMENDATION. Dysphagia Diet Level 3 Precautions/Recommen_ (Advanced) with thin liquids. dations - Predicted Duration of 2-3x Therapy - Predicted Frequency daily of Therapy - Risks and Benefits of Yes Treatment have been explained. - Patient, family Yes and/or staff in agreement with Plan of Care - Diagnostic Statement Dysphagia Outcome and Severity Score (KRISTA) rating: Level 6 - Within functional limits/modified independence Signatures Nidia Headley (Speech Pathologist)[Signed 10:28] Authored: General Information, VFSS Evaluation: Thin Liquid Texture Trial, VFSS Evaluation: [place]-Thick Texture Trial, VFSS Evaluation: Honey-Thick Texture Trial, VFSS Evaluation: Pudding-Thick Texture Trial, VFSS Evaluation: Semisolid Texture Trial, Swallowing Compensations, Impression Interface, Apigee Developer - 07/10/2010 3:08 PM CDT General Information [...] - has stairs. - Treatment Diagnosis: impaired I with ADL's, balance and functional mobility; generalized weakness - Precautions/Limitati_ Fall precautions; MRSA contact precautions ons: - Weight Bearing No weight bearing restrictions Status: - Observations: Pt awake and alert; agreeable to OT Eval Cognitive Status - Orientation: orientation to person, place and time - Level of alert Consciousness: - Follows Commands and 100% of the time Answers Questions: - Personal Safety and at risk behaviors demonstrated; impaired; Judgment: wanting to get up out of bed while Th went to get him a razor, but not thinking about cathetor. - Memory: impaired, patient states he thought he had been here for 20 days and that he came in on the 2nd, did not seem convinced - Comment: recommend further assessment because patient seems to be slightly confused still Visual Perception Visual Perception: Normal Pain - Pain: No Sensation - Sensation: Sensation was appropriate in all areas Muscle Tone - Muscle Tone: Muscle tone was appropriate in all areas Range of Motion - Range of Motion: ROM was appropriate in all areas Strength - Strength: Strength was appropriate in all areas Fine Motor Coordination - Fine Motor Coordination was appropriate in all areas Coordination: Bed Mobility: Rolling/Turning - Level of stand-by assist Manatee: Bed Mobility: Scooting/Bridging - Level of stand-by assist Manatee: Bed Mobility: Sit to Supine - Level of stand-by assist Man[place]e: Bed Mobility: Supine to Sit - Level of stand-by assist Manatee: Bed Mobility Analysis - Impairments impaired balance Contributing to Impaired Bed Mobility: Transfer: Sit to Stand - Level of stand-by assist Manatee: Transfer: Stand to Sit - Level of stand-by assist Man[place]e: Toilet Transfer - Level of stand-by assist [place]: Toilet Transfer Analysis - Impairments impaired balance Contributing to Impaired Transfers: Grooming - Level of stand-by assist, not very complete with shaving, Man[place]e: but unaware of this - Physical supervision Assist/Nonphysical Assist: Lower Body Dressing - Level of stand-by assist Manatee: Treatment Plan - Treatments: ADL Retraining, Functional Transfer Training, Functional Endurance, Cognition Clinical Impression - Skilled Criteria for Yes Therapy Intervention Met: - Assessment: Patient demo's decreased I with ADL's and functional mobility after being admitted and in ICU for 5 days. patient may benefit from skilled OT to work on I with ADL's, functional transfers, cognition and activity tolerence in order to return to PLOF. rec further cognitive testing for safety, at this point rec 24 hour supervision till this can be completed - Rehabilitation Good, to achieve stated therapy goals Potential: - Predicted Duration of 5 days Therapy: - Predicted Frequency daily of Therapy: - Discharge Home with assist; 24 hour sup vs CD Destination: - Anticipated Equipment TBD at Discharge: - Risks and Benefits of Yes Treatment have been explained.: - Patient, family Yes and/or staff in agreement with Plan of Care: Mara Pichardo (OT)[Signed 14:23] Authored: General Information, Cognitive Status, Visual Perception, Pain, Sensation, Muscle Tone, Range of Motion, Strength, Fine Motor Coordination, Bed Mobility: Rolling/Turning, Bed Mobility: Scooting/Bridging, Bed Mobility: Sit to Supine, Bed Mobility: Supine to Sit, Bed Mobility Analysis, Transfer: Sit to Stand, Transfer: Stand to Sit, Toilet Transfer, Toilet Transfer Analysis, Grooming, Lower Body Dressing, Treatment Plan, Clinical Impression Interface, Apigee Developer - 07/10/2010 3:08 PM CDT SH--Ongoing spiritual/emotional care and support. Checked in with patient, whom I visited in the ICU. He said that he was feeling much better and was waiting for his girlfriend to bring in his three dogs. He emphasized how much this meant to him. Encouraged and supported his expression of thoughts and feelings. Reiterated my offer of support. No needs expressed at this time. Following. [Signature] Author: Luciana Rose (Content Development Specialist) [Signed 14:32] Interface, Apigee Developer - 07/10/2010 3:08 PM CDT Attempted to meet with pt today. He was in the bathroom during the first attempt and out of the room on the second attempt. SWS will continue to try to meet with pt regarding CD resources. [Signature] Author: GELACIO MARTIN ([facility]) [Signed 14:48] Interface, Apigee Developer - 07/10/2010 3:08 PM CDT [facility]. A. Met with the pt to discuss the consult order. Pt reports that he has struggled with alcohol use. He has not had treatment. He was not interested in treatment at this time. He explained how this hospitalization has helped him to understand the importance of not drinking. I did discuss outpt Ntractive health evals/screenings through [facility] with him and provided him wiht a handout for future use. I also discussed AA meetings and such with the pt as well. Information to connect with these programs was also in the handout. P. Pt provided with CD service information. [Signature] Author: GELACIO MARTIN ([facility]) [Signed 16:20] documented in this encounter Plan of Treatment Not on filedocumented as of this encounter Visit Diagnoses Not on filedocumented in this encounter Additional Health Concerns Infection Onset Date Last Indicated Resolved Time MRSA-Contact IsolationComment: 0 04/26/2021 11:03 AM SILK SCREEN PROCESSOR Infection 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
--- OUTSIDE RECORDS SUMMARY | 2022-02-12 13:49 | XMS_ITS | Encounter Summary ---
:1960 Author Organization [facility] Address [address] [place] [id number] Care Team Providers Name Role Phone Unavailable Primary Care Provider Unavailable Encounter Details Date Type Department Care Team Description 07/03/2009 Historic Results [facility] Josue Crain, Hospitalists DO [address] [place], [place] [id number] [phone] Social History Tobacco Use Types Packs/Day Years Used Date Smoking Tobacco: Never Alcohol Use Standard Drinks/Week Comments Yes 0 (1 standard drink = 0.6 oz pure alcoho l) socially approx 5 drinks/wk Sex Assigned at Date Recorded Not on file documented as of this encounter Plan of Treatment Not on filedocumented as of this encounter Procedures Procedure Name Priority Date/Time Associated Comments Diagnosis C DIFFICILE TOXIN A Routine 07/03/2009 11:20 Resu lts for this AND B ([facility]) AM CHILD WELFARE ASSISTANT procedure are in the results section. C DIFFICILE CULTURE Routine 07/03/2009 11:20 Resu lts for this AM CHILD WELFARE ASSISTANT procedure are i n the results section. TSH Timed 07/03/2009 9:54 AM Results f or this CHILD WELFARE ASSISTANT procedure are i n the results section. T4 FREE Timed 07/03/2009 9:54 AM Results f or this CHILD WELFARE ASSISTANT procedure are i n the results section. COMPREHENSIVE Routine 07/03/2009 5:45 AM Results for this METABOLIC PANEL CHILD WELFARE ASSISTANT procedure ar e in the results section. CBC WITH PLATELETS Routine 07/03/2009 5:45 AM Res ults for this CHILD WELFARE ASSISTANT procedure are i n the results section. documented in this encounter Results C difficile culture (07/03/2009 11:20 AM CHILD WELFARE ASSISTANT) [facility] Method Time Signature Specimen Feces MISYS Descrip C Difficile Light growth MISYS Culture Clostridium difficile Specimen Anatomical Collection Method Collection Time Receive d Time (Source) Location / / Volume Laterality 07/03/2009 11:20 07/03/2009 AM CHILD WELFARE ASSISTANT 12:24 PM CHILD WELFARE ASSISTANT Josue Crain DO LAB - MICRO GENERAL ORDERABL ES Performing Organization Address [facility] Phon e Number MISYS C difficile toxin A and B (07/03/2009 11:20 AM CHILD WELFARE ASSISTANT) [facility] Method Time Signature Specimen Feces MISYS Description C. Difficile Negative for MISYS Toxin A & B Clostridium difficile toxins A and B Comment: This FDA approved qualitative enzyme im munoassay will detect toxin A at levels of greater than or equal to 7.7 ng (nan ograms)/mL stooland toxin B at levels of greater than or equal to 4.5 ng (nanogr ams)/mL stool. A negative result does not exclude actu al disease due to C.difficile and may be due to improper collection, handling an d storage of the specimen or toxin concentrations in stool below the detec tion limit of the assay. Specimen Anatomical Collection Method Collection Time Receive d Time (Source) Location / / Volume Laterality 07/03/2009 11:20 07/03/2009 AM CHILD WELFARE ASSISTANT 12:25 PM CHILD WELFARE ASSISTANT Josue Crain DO LAB - BLOOD ORDERABLES Performing Organization Address [facility] Phon e Number MISYS T4 free (07/03/2009 9:54 AM CHILD WELFARE ASSISTANT) athologist Signature T4 Free 1.75 0.70 - 1.85 MISYS ng/dL Specimen Anatomical Collection Method Collection Time Receive d Time (Source) Location / / Volume Laterality 07/03/2009 9:54 AM 0 CHILD WELFARE ASSISTANT 10:00 AM CHILD WELFARE ASSISTANT Sharifa Barr MD LAB - BLOOD ORDERABLES Performing Organization Address [facility] Phon e Number MISYS TSH (07/03/2009 9:54 AM CHILD WELFARE ASSISTANT) athologist Signature TSH 2.71 0.4 - 5.0 MISYS mU/L Specimen Anatomical Collection Method Collection Time Receive d Time (Source) Location / / Volume Laterality 07/03/2009 9:54 AM 03/12/201 0 CHILD WELFARE ASSISTANT 10:00 AM CHILD WELFARE ASSISTANT Sharifa Barr MD LAB - BLOOD ORDERABLES Performing Organization Address City/State/ZIP Code Phon e Number MISYS (ABNORMAL) Comprehensive metabolic panel (07/03/2009 5:45 AM CHILD WELFARE ASSISTANT) P athologist Signature Sodium 136 133 - 144 MISYS mmol/L Potassium 4.0 3.4 - 5.3 MISYS mmol/L Chloride 101 94 - 109 MISYS mmol/L Carbon Dioxide 25 20 - 32 MISYS mmol/L Glucose 106 (H) 60 - 99 MISYS mg/dL Urea Nitrogen 7 5 - 24 MISYS mg/dL Creatinine 0.79 0.66 - MISYS 1.25 mg/dL Comment: New IDMS-traceable calibration beginning 08/23/07 GFR Estimate >90 >60 mL/min/1.7m2 MISYS GFR Estimate If Black >90 >60 mL/min/1.7m2 M ISYS Calcium 8.8 8.5 - 10.4 mg/dL MISYS AST 524 (H) 0 - 55 U/L MISYS Protein Total 7.1 6.8 - 8.8 g/dL MISYS Anion Gap 10 6 - 17 mmol/L MISYS Albumin 3.4 (L) 3.9 - 5.1 g/dL MISYS ALT 143 (H) 0 - 70 U/L MISYS Alkaline Phosphatase 178 (H) 40 - 150 U/L MISYS Bilirubin Total 3.0 (H) 0.2 - 1.3 mg/dL MISYS Specimen Anatomical Collection Method Collection Time Receive d Time (Source) Location / / Volume Laterality 07/03/2009 5:45 AM 0 7:53 CHILD WELFARE ASSISTANT AM CHILD WELFARE ASSISTANT Harvey Dang MD LAB - BLOOD ORDERABLES Performing Organization Address City/State/ZIP Code Phon e Number MISYS (ABNORMAL) CBC with platelets (07/03/2009 5:45 AM CHILD WELFARE ASSISTANT) Analysis Performed At Patho logist Time Signature MCV 97 78 - 100 MISYS fl MCH 31.6 26.5 - MISYS 33.0 pg MCHC 32.7 31.5 - MISYS 36.5 g/dL RDW 15.2 (H) 10.0 - MISYS 15.0 % WBC 6.9 4.0 - 11.0 MISYS 10e9/L RBC Count 3.35 (L) 4.4 - 5.9 MISYS 10e12/L Hemoglobin 10.6 (L) 13.3 - MISYS 17.7 g/dL Hematocrit 32.4 (L) 40.0 - MISYS 53.0 % Platelet Count 150 150 - 450 MISYS 10e9/L Specimen Anatomical Collection Method Collection Time Receive d Time (Source) Location / / Volume Laterality 07/03/2009 5:45 AM 0 7:53 CHILD WELFARE ASSISTANT AM CHILD WELFARE ASSISTANT Harvey Dang MD LAB - BLOOD ORDERABLES Performing Organization Address City/State/ZIP Code Phon e Number MISYS documented in this encounter Visit Diagnoses Not on filedocumented in this encounter Additional Health Concerns Infection Onset Date Last Indicated Resolved Time MRSA-Contact IsolationComment: 0 04/26/2021 11:03 AM CHILD WELFARE ASSISTANT Infection 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
--- OUTSIDE RECORDS SUMMARY | 2022-02-12 13:49 | XMS_ITS | Encounter Summary ---
:1960 Author Organization [facility] Address [address] [place] [address] Care Team Providers Name Role Phone Unavailable Primary Care Provider Unavailable Encounter Details Date Type Department Care Team Description 03/19/2009 Historic Results [facility]Gianni Church MD Hospitalists [address] [place], [place] [address] (Wo rk) Social History [...] Procedure Name Priority Date/Time Associated Comments Diagnosis GLUCOSE BY METER Routine 03/19/2009 10:05 PM Resu lts for this ENVIRONMENTAL HEALTH SANITARIAN procedure are i n the results section. GLUCOSE BY METER Routine 03/19/2009 6:26 PM Resul ts for this ENVIRONMENTAL HEALTH SANITARIAN procedure are i n the results section. GLUCOSE BY METER Routine 03/19/2009 11:57 AM Resu lts for this ENVIRONMENTAL HEALTH SANITARIAN procedure are i n the results section. GLUCOSE BY METER Routine 03/19/2009 8:21 AM Resul ts for this ENVIRONMENTAL HEALTH SANITARIAN procedure are i n the results section. PHOSPHORUS Routine 03/19/2009 6:20 AM Results f or this ENVIRONMENTAL HEALTH SANITARIAN procedure are i n the results section. MAGNESIUM Routine 03/19/2009 6:20 AM Results f or this ENVIRONMENTAL HEALTH SANITARIAN procedure are i n the results section. BASIC METABOLIC Routine 03/19/2009 6:20 AM Result s for this PANEL ENVIRONMENTAL HEALTH SANITARIAN procedure are i n the results section. CBC WITH PLATELETS Routine 03/19/2009 6:20 AM Res ults for this ENVIRONMENTAL HEALTH SANITARIAN procedure are i n the results section. C DIFFICILE TOXIN A Routine 03/19/2009 6:10 AM Re sults for this AND B ([facility]) ENVIRONMENTAL HEALTH SANITARIAN procedure are in the results section. C DIFFICILE CULTURE Routine 03/19/2009 6:10 AM Re sults for this ENVIRONMENTAL HEALTH SANITARIAN procedure are i n the results section. GLUCOSE BY METER Routine 03/19/2009 3:59 AM Resul ts for this ENVIRONMENTAL HEALTH SANITARIAN procedure are i n the results section. GLUCOSE BY METER Routine 03/19/2009 12:37 AM Resu lts for this ENVIRONMENTAL HEALTH SANITARIAN procedure are i n the results section. documented in this encounter Results (ABNORMAL) Glucose by meter (03/19/2009 10:05 PM ENVIRONMENTAL HEALTH SANITARIAN) P athologist Signature Glucose 145 (H) 60 - 99 MISYS mg/dL Specimen Anatomical Collection Method Collection Time Receive d Time (Source) Location / / Volume Laterality 03/19/2009 10:05 03/19/2009 PM ENVIRONMENTAL HEALTH SANITARIAN 10:11 PM ENVIRONMENTAL HEALTH SANITARIAN Kaiden REHMAN - JESICA POCT Performing Organization Address City/[facility] Phon e Number MISYS (ABNORMAL) Glucose by meter (03/19/2009 6:26 PM ENVIRONMENTAL HEALTH SANITARIAN) P athologist Signature Glucose 157 (H) 60 - 99 MISYS mg/dL Specimen Anatomical Collection Method Collection Time Receive d Time (Source) Location / / Volume Laterality 03/19/2009 6:26 PM 9 8:55 ENVIRONMENTAL HEALTH SANITARIAN PM ENVIRONMENTAL HEALTH SANITARIAN Kaiden REHMAN - JESICA POCT Performing Organization Address [facility] Phon e Number MISYS (ABNORMAL) Glucose by meter (03/19/2009 11:57 AM ENVIRONMENTAL HEALTH SANITARIAN) P athologist Signature Glucose 214 (H) 60 - 99 MISYS mg/dL Comment: RN/Dr notified Specimen Anatomical Collection Method Collection Time Receive d Time (Source) Location / / Volume Laterality 03/19/2009 11:57 03/19/2009 5:26 AM ENVIRONMENTAL HEALTH SANITARIAN PM ENVIRONMENTAL HEALTH SANITARIAN Kaiden Carpenter MD LAB - BEJAZ POCT Performing Organization Address [facility] Phon e Number MISYS (ABNORMAL) Glucose by meter (03/19/2009 8:21 AM ENVIRONMENTAL HEALTH SANITARIAN) P athologist Signature Glucose 176 (H) 60 - 99 MISYS mg/dL Comment: RN/Dr notified Specimen Anatomical Collection Method Collection Time Receive d Time (Source) Location / / Volume Laterality 03/19/2009 8:21 AM 9 5:25 ENVIRONMENTAL HEALTH SANITARIAN PM ENVIRONMENTAL HEALTH SANITARIAN Kaiden Carpenter MD LAB - BEAKER POCT Performing Organization Address City/State/ZIP Code Phon e Number MISYS (ABNORMAL) Basic metabolic panel (03/19/2009 6:20 AM ENVIRONMENTAL HEALTH SANITARIAN) Analysis Performed At Patho logist Time Signature Sodium 147 (H) 133 - 144 MISYS mmol/L Potassium 3.7 3.4 - 5.3 MISYS mmol/L Chloride 104 94 - 109 MISYS mmol/L Carbon Dioxide 34 (H) 20 - 32 MISYS mmol/L Glucose 135 (H) 60 - 99 MISYS mg/dL Urea Nitrogen 25 (H) 5 - 24 MISYS mg/dL Creatinine 1.52 (H) 0.66 - MISYS 1.25 mg/dL Comment: New IDMS-traceable calibration beginning 08/23/07 GFR Estimate 50 (L) >60 mL/min/1.7m2 MISYS GFR Estimate If Black 60 (L) >60 mL/min/1.7m2 M ISYS Calcium 8.0 (L) 8.5 - 10.4 mg/dL MISYS Anion Gap 8 6 - 17 mmol/L MISYS Specimen (Source) Anatomical Collection Method Collection Time Re ceived Time Location / / Volume Laterality 03/19/2009 6:20 AM 9 ENVIRONMENTAL HEALTH SANITARIAN Brian Turner MD LAB - BLOOD ORDERABLES Performing Organization Address City/State/ZIP Code Phon e Number MISYS (ABNORMAL) Magnesium (03/19/2009 6:20 AM ENVIRONMENTAL HEALTH SANITARIAN) athologist Signature Magnesium 1.3 (L) 1.6 - 2.3 MISYS mg/dL Specimen (Source) Anatomical Collection Method Collection Time Re ceived Time Location / / Volume Laterality 03/19/2009 6:20 AM 9 ENVIRONMENTAL HEALTH SANITARIAN Brian Turner MD LAB - BLOOD ORDERABLES Performing Organization Address City/State/ZIP Code Phon e Number MISYS Phosphorus (03/19/2009 6:20 AM ENVIRONMENTAL HEALTH SANITARIAN) P athologist Signature Phosphorus 2.5 2.5 - 4.5 MISYS mg/dL Specimen (Source) Anatomical Collection Method Collection Time Re ceived Time Location / / Volume Laterality 03/19/2009 6:20 AM 9 ENVIRONMENTAL HEALTH SANITARIAN Brian Turner MD LAB - BLOOD ORDERABLES Performing Organization Address City/State/ZIP Code Phon e Number MISYS (ABNORMAL) CBC with platelets (03/19/2009 6:20 AM ENVIRONMENTAL HEALTH SANITARIAN) Analysis Performed At Patho logist Time Signature MCV 97 78 - 100 MISYS fl MCH 30.7 26.5 - MISYS 33.0 pg MCHC 31.7 31.5 - MISYS 36.5 g/dL RDW 16.2 (H) 10.0 - MISYS 15.0 % WBC 9.6 4.0 - 11.0 MISYS 10e9/L RBC Count 3.13 (L) 4.4 - 5.9 MISYS 10e12/L Hemoglobin 9.6 (L) 13.3 - MISYS 17.7 g/dL Hematocrit 30.3 (L) 40.0 - MISYS 53.0 % Platelet Count 175 150 - 450 MISYS 10e9/L Specimen (Source) Anatomical Collection Method Collection Time Re ceived Time Location / / Volume Laterality 03/19/2009 6:20 AM 9 ENVIRONMENTAL HEALTH SANITARIAN Brian Turner MD LAB - BLOOD ORDERABLES Performing Organization Address City/State/ZIP Code Phon e Number MISYS C difficile culture (03/19/2009 6:10 AM ENVIRONMENTAL HEALTH SANITARIAN) [facility] GROU.PS Method Time Signature Specimen Feces MISYS Descrip C Difficile No Clostridium MISYS Culture difficile isolated Specimen Anatomical Collection Method Collection Time Receive d Time (Source) Location / / Volume Laterality 03/19/2009 6:10 AM 9 6:14 ENVIRONMENTAL HEALTH SANITARIAN AM ENVIRONMENTAL HEALTH SANITARIAN Kaiden Carpenter MD LAB - MICRO GENERAL ORDERABL ES Performing Organization Address City/State/ZIP Code Phon e Number MISYS C difficile toxin A and B (03/19/2009 6:10 AM ENVIRONMENTAL HEALTH SANITARIAN) [facility] Method Time Signature Specimen Feces MISYS Description [...] Time (Source) Location / / Volume Laterality 03/19/2009 6:10 AM 6:14 ENVIRONMENTAL HEALTH SANITARIAN AM ENVIRONMENTAL HEALTH SANITARIAN Kaiden Carpenter MD LAB - BLOOD ORDERABLES Performing Organization Address City/[facility] Phon e Number MISYS (ABNORMAL) Glucose by meter (03/19/2009 3:59 AM ENVIRONMENTAL HEALTH SANITARIAN) P athologist Signature Glucose 166 (H) 60 - 99 MISYS mg/dL Specimen Anatomical Collection Method Collection Time Receive d Time (Source) Location / / Volume Laterality 03/19/2009 3:59 AM 9 5:25 ENVIRONMENTAL HEALTH SANITARIAN PM ENVIRONMENTAL HEALTH SANITARIAN Kaiden REHMAN - BEJAZ POCT Performing Organization Address [facility] Phon e Number MISYS (ABNORMAL) Glucose by meter (03/19/2009 12:37 AM ENVIRONMENTAL HEALTH SANITARIAN) P athologist Signature Glucose 174 (H) 60 - 99 MISYS mg/dL Specimen Anatomical Collection Method Collection Time Receive d Time (Source) Location / / Volume Laterality 03/19/2009 12:37 03/19/2009 5:25 AM ENVIRONMENTAL HEALTH SANITARIAN PM ENVIRONMENTAL HEALTH SANITARIAN Kaiden MOONEY POCT Performing Organization Address [facility] Phon e Number MISYS documented in this encounter Visit Diagnoses Not on filedocumented in this encounter Additional Health Concerns Infection Onset Date Last Indicated Resolved Time MRSA-Contact IsolationComment: 0 04/26/2021 11:03 AM ENVIRONMENTAL HEALTH SANITARIAN Infection 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
--- OUTSIDE RECORDS SUMMARY | 2022-02-12 13:49 | XMS_ITS | Encounter Summary ---
:1960 Author Organization [place] Address [address] [place] [address] Care Team Providers Name Role Phone Unavailable Primary Care Provider Unavailable Encounter Details Date Type Department Care Team Description 07/04/2009 Historic Notes INTERFACED REPORT Interface, Transcript MD valarie Social History Tobacco Use Types Packs/Day Years Used Date Smoking Tobacco: Never Alcohol Use Standard Drinks/Week Comments Yes 0 (1 standard drink = 0.6 oz pure alcoho l) socially approx 5 drinks/wk Sex Assigned at Date Recorded Not on file documented as of this encounter Progress Notes Interface, Motel Maid - 07/10/2010 8:33 AM CDT General Information - Patient Profile See Profile for full history and prior level of Review: function - Referring Physician: Dr. Crain - Patient/Family Goals: to get home - History of Present to ER due to ETOH use--fall on stairs, Problem: dehydration - Treatment Diagnosis: weakness, gait difficulites including ataxia with bilateral LEs, balance deficits - Precautions/Limitati_ Fall precautions ons: - Weight Bearing No weight bearing restrictions Status: Cognitive Status - Orientation: person - Level of alert Consciousness: - Follows Commands and 50% of the time Answers Questions: - Personal Safety and impaired Judgment: - Memory: impaired Pain - Pain: No Posture - Posture: Posture was appropriate Range of Motion - Range of Motion: ROM was appropriate in all areas Strength - Comments: Grossly 3+/5 bilateral hip, knee, ankle--unable to understand MMT commands, fatigues with very minimal activity Bed Mobility: Rolling/Turning - Level of stand-by assist Clyde: Bed Mobility: Scooting/Bridging - Level of stand-by assist Clyde: Bed Mobility: Sit to Supine - Level of stand-by assist Clyde: Bed Mobility: Supine to Sit - Level of stand-by assist Clyde: Transfer: Bed to Chair/Chair to Bed - Level of moderate assist (50% patients effort) Clyde: - Physical 2 persons Assist/Nonphysical Assist: - Weight-Bearing full weight-bearing Restrictions: - Assistive Device: rolling walker Bed/Chair Transfer Safety Analysis - Transfer Safety losing balance backward; decreased balance Concerns Noted: during turns - Impairments impaired balance; decreased strength Contributing to Impaired Transfers: Transfer: Sit to Stand - Level of moderate assist (50% patients effort) Clyde: - Physical 2 persons Assist/Nonphysical Assist: - Weight-Bearing full weight-bearing Restrictions: - Assistive Device: rolling walker Transfer: Stand to Sit - Level of moderate assist (50% patients effort) Clyde: - Physical 2 persons Assist/Nonphysical Assist: - Weight-Bearing full weight-bearing Restrictions: - Assistive Device: rolling walker Sit/Stand Transfer Safety Analysis - Transfer Safety decreased balance during turns; losing balance Concerns Noted: backward - Impairments impaired balance; decreased strength Contributing to Impaired Transfers: Gait Skills - Level of moderate assist (50% patients effort) Clyde: - Physical 1 person + 1 person to manage equipment; very Assist/Nonphysical close following with chair Assist: - Weight-Bearing full weight-bearing Restrictions: - Assistive Device: rolling walker - Gait Distance: around bed approx 14 feet Gait Analysis - Gait Deviations decreased heath; increased time in double Noted: stance; decreased step length; ataxic movement of LEs - Impairments impaired balance; decreased strength Contributing to Gait Deviations: Balance Skills Assessment - Sitting Balance: minimum assist (75% patients effort) Static: - Sitting Balance: minimum assist (75% patients effort) Dynamic: - [id number] Balance: moderate assist (50% patients effort) - Standing Balance: moderate assist (50% patients effort) Static: - Standing Balance: moderate assist (50% patients effort) Dynamic: - Systems Impairment musculoskeletal Contributing to Balance Disturbance: - Identified impaired motor control; decreased strength Impairments Contributing to Balance Disturbance: Treatment Plan - Treatments: Gait Training, Transfer Training, Bed Mobility Training, Balance/Coordinating Training Techniques Clinical Impression - Skilled Criteria for Yes Therapy Intervention Met: - PT Practice Pattern: Neuromuscular - Assessment: The patient presents with significant weakness, gait difficulties including poor motor control/planning/ataxic movements, balance deficits losing balance backwards and sideways, and decreased activity tolerance sweating and becoming anxious and fatigued with very minimal activity. Patient is impulsive and states that he wants to just go for a short 5-10 min walk. The pt will benefit from skilled Physical Therapy to address these concerns through gait/balance training, and therapeutic activities (transfer training) and therapeutic exercise to include strengthening and improving activity tolerance. - Rehabilitation Fair, will monitor progress closely Potential: - Demonstrates need for OT; [facility] referral to another service: - Predicted Duration of 3-5 days Therapy: - Predicted Frequency 1x per day of Therapy: - Discharge Home with assist; Extended care facility Destination: - Risks and Benefits of Yes Treatment have been explained.: - Patient, family Yes and/or staff in agreement with Plan of Care: Marco Wilkins V (Therapist)[Signed 14:11] Authored: General Information, Cognitive Status, Pain, Posture, Range of Motion, Strength, Bed Mobility: Rolling/Turning, Bed Mobility: Scooting/Bridging, Bed Mobility: Sit to Supine, Bed Mobility: Supine to Sit, Transfer: Bed to Chair/Chair to Bed, Bed/Chair Transfer Safety Analysis, Transfer: Sit toStand, Transfer: Stand to Sit, Sit/Stand Transfer Safety Analysis, Gait Skills, Gait Analysis, Balance Skills Assessment, Treatment Plan, Clinical Impression documented in this encounter Plan of Treatment Not on filedocumented as of this encounter Visit Diagnoses Not on filedocumented in this encounter Additional Health Concerns Infection Onset Date Last Indicated Resolved Time MRSA-Contact IsolationComment: 0 04/26/2021 11:03 AM DAIRY MANAGEMENT SPECIALIST Infection 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
--- OUTSIDE RECORDS SUMMARY | 2022-02-12 13:49 | XMS_ITS | Encounter Summary ---
:1960 Author Organization [facility] Address [address] [place] [address] Care Team Providers Name Role Phone Unavailable Primary Care Provider Unavailable Encounter Details Date Type Department Care Team Description 03/20/2009 Historic Results [facility]-Gianni Church MD Hospitalists [address] [place], [place] [address] (Wo rk) Social History Tobacco Use Types [...] Name Priority Date/Time Associated Diagnosis Comme nts GLUCOSE BY METER Routine 03/20/2009 8:39 PM Resul ts for this FLEET SERVICE MANAGER procedure are i n the results section. GLUCOSE BY METER Routine 03/20/2009 4:06 PM Resul ts for this FLEET SERVICE MANAGER procedure are i n the results section. MAGNESIUM Timed 03/20/2009 3:33 PM Results f or this FLEET SERVICE MANAGER procedure are i n the results section. GLUCOSE BY METER Routine 03/20/2009 11:45 AM Resu lts for this FLEET SERVICE MANAGER procedure are i n the results section. GLUCOSE BY METER Routine 03/20/2009 7:25 AM Resul ts for this FLEET SERVICE MANAGER procedure are i n the results section. MAGNESIUM Routine 03/20/2009 5:04 AM Results f or this FLEET SERVICE MANAGER procedure are i n the results section. BASIC METABOLIC Routine 03/20/2009 5:04 AM Result s for this PANEL FLEET SERVICE MANAGER procedure are i n the results section. GLUCOSE BY METER Routine 03/20/2009 4:25 AM Resul ts for this FLEET SERVICE MANAGER procedure are i n the results section. GLUCOSE BY METER Routine 03/20/2009 12:04 AM Resu lts for this FLEET SERVICE MANAGER procedure are i n the results section. documented in this encounter Results Glucose by meter (03/20/2009 8:39 PM FLEET SERVICE MANAGER) athologist Signature Glucose 94 60 - 99 MISYS mg/dL Specimen Anatomical Collection Method Collection Time Receive d Time (Source) Location / / Volume Laterality 03/20/2009 8:39 PM 9 7:30 FLEET SERVICE MANAGER AM FLEET SERVICE MANAGER Kaiden Carpenter MD LAB - BEAKER POCT Performing Organization Address City/[facility] Phon e Number MISYS (ABNORMAL) Glucose by meter (03/20/2009 4:06 PM FLEET SERVICE MANAGER) athologist Signature Glucose 142 (H) 60 - 99 MISYS mg/dL Specimen Anatomical Collection Method Collection Time Receive d Time (Source) Location / / Volume Laterality 03/20/2009 4:06 PM 7:30 FLEET SERVICE MANAGER AM FLEET SERVICE MANAGER Kaiden REHMAN - JESICA POCT Performing Organization Address [facility] Phon e Number MISYS (ABNORMAL) Magnesium (03/20/2009 3:33 PM FLEET SERVICE MANAGER) athologist Signature Magnesium 2.7 (H) 1.6 - 2.3 MISYS mg/dL Comment: Results confirmed by repeat patricia t Specimen Anatomical Collection Method Collection Time Receive d Time (Source) Location / / Volume Laterality 03/20/2009 3:33 PM 9 4:00 FLEET SERVICE MANAGER PM FLEET SERVICE MANAGER Kaiden Carpenter MD LAB - BLOOD ORDERABLES Performing Organization Address City/[facility]/ZIP Code Phon e Number MISYS (ABNORMAL) Glucose by meter (03/20/2009 11:45 AM FLEET SERVICE MANAGER) athologist Signature Glucose 154 (H) 60 - 99 MISYS mg/dL Specimen Anatomical Collection Method Collection Time Receive d Time (Source) Location / / Volume Laterality 03/20/2009 11:45 03/21/2009 7:30 AM FLEET SERVICE MANAGER AM FLEET SERVICE MANAGER Kaiden Carpenter MD LAB - BEJAZ POCT Performing Organization Address City/State/ZIP Code Phon e Number MISYS (ABNORMAL) Glucose by meter (03/20/2009 7:25 AM FLEET SERVICE MANAGER) P athologist Signature Glucose 145 (H) 60 - 99 MISYS mg/dL Specimen Anatomical Collection Method Collection Time Receive d Time (Source) Location / / Volume Laterality 03/20/2009 7:25 AM 9 7:30 FLEET SERVICE MANAGER AM FLEET SERVICE MANAGER Kaiden Carpenter MD LAB - BEAKER POCT Performing Organization Address [facility] Code Phon e Number MISYS (ABNORMAL) Magnesium (03/20/2009 5:04 AM FLEET SERVICE MANAGER) athologist Signature Magnesium 1.2 (L) 1.6 - 2.3 MISYS mg/dL Specimen (Source) Anatomical Collection Method Collection Time Re ceived Time Location / / Volume Laterality 03/20/2009 5:04 AM 9 FLEET SERVICE MANAGER Brian Turner MD LAB - BLOOD ORDERABLES Performing Organization Address [facility] Phon e Number MISYS (ABNORMAL) Basic metabolic panel (03/20/2009 5:04 AM FLEET SERVICE MANAGER) athologist Signature Sodium 142 133 - 144 MISYS mmol/L Potassium 4.2 3.4 - 5.3 MISYS mmol/L Chloride 108 94 - 109 MISYS mmol/L Carbon Dioxide 29 20 - 32 MISYS mmol/L Glucose 108 (H) 60 - 99 MISYS mg/dL Urea Nitrogen 17 5 - 24 MISYS mg/dL Creatinine 1.25 0.66 - MISYS 1.25 mg/dL Comment: New IDMS-traceable calibration beginning 08/23/07 GFR Estimate 62 >60 mL/min/1.7m2 MISYS GFR Estimate If Black 75 >60 mL/min/1.7m2 M ISYS Calcium 8.4 (L) 8.5 - 10.4 mg/dL MISYS Anion Gap 6 6 - 17 mmol/L MISYS Specimen (Source) Anatomical Collection Method Collection Time Re ceived Time Location / / Volume Laterality 03/20/2009 5:04 AM 9 FLEET SERVICE MANAGER Liam Traylor MD LAB - BLOOD ORDERABLES Performing Organization Address City/[facility]/ZIP Code Phon e Number MISYS (ABNORMAL) Glucose by meter (03/20/2009 4:25 AM FLEET SERVICE MANAGER) P athologist Signature Glucose 149 (H) 60 - 99 MISYS mg/dL Specimen Anatomical Collection Method Collection Time Receive d Time (Source) Location / / Volume Laterality 03/20/2009 4:25 AM 9 4:35 FLEET SERVICE MANAGER AM FLEET SERVICE MANAGER Kaiden REHMAN - JESICA POCT Performing Organization Address City/State/ZIP Code Phon e Number MISYS (ABNORMAL) Glucose by meter (03/20/2009 12:04 AM FLEET SERVICE MANAGER) P athologist Signature Glucose 155 (H) 60 - 99 MISYS mg/dL Specimen Anatomical Collection Method Collection Time Receive d Time (Source) Location / / Volume Laterality 03/20/2009 12:04 03/20/2009 AM FLEET SERVICE MANAGER 12:10 AM FLEET SERVICE MANAGER Kaiden REHMAN - JESICA POCT Performing Organization Address City/State/ZIP Code Phon e Number MISYS documented in this encounter Visit Diagnoses Not on filedocumented in this encounter Additional Health Concerns Infection Onset Date Last Indicated Resolved Time MRSA-Contact IsolationComment: 0 04/26/2021 11:03 AM FLEET SERVICE MANAGER Infection 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
--- OUTSIDE RECORDS SUMMARY | 2022-02-12 13:49 | XMS_ITS | Encounter Summary ---
:1960 Author Organization [facility] Address [address] [place] [address] Care Team Providers Name Role Phone Unavailable Primary Care Provider Unavailable Encounter Details Date Type Department Care Team Description 03/21/2009 Historic Notes INTERFACED REPORT Scarlett Adams , OTR [address] [place], [place] [phone] (Wo rk) Social History Tobacco Use Types Packs/Day Years Used Date Smoking Tobacco: Never Alcohol Use Standard Drinks/Week Comments Yes 0 (1 standard drink = 0.6 oz pure alcoho l) socially approx 5 drinks/wk Sex Assigned at Date Recorded Not on file documented as of this encounter Progress Notes Scarlett Adams - 07/10/2010 3:05 PM CDT Discharge Summary - Reason for Discharge Discharge from facility, To home with friend - Progress toward Goals not met 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 Patient was unavailable with other disciplines this am x2, returned in pm and had discharged. - Continued Therapy Yes Recommended Signatures Scarlett Adams (OT)[Signed 14:46] Authored: Discharge Summary documented in this encounter Plan of Treatment Not on filedocumented as of this encounter Visit Diagnoses Not on filedocumented in this encounter Additional Health Concerns Infection Onset Date Last Indicated Resolved Time MRSA-Contact IsolationComment: 0 04/26/2021 11:03 AM CHIEF OPTOMETRY SERVICE Infection 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
--- OUTSIDE RECORDS SUMMARY | 2022-02-12 13:49 | XMS_ITS | Encounter Summary ---
:1960 Author Organization [facility] Address [address] [place] [id number] Care Team Providers Name Role Phone Unavailable Primary Care Provider Unavailable Encounter Details Date Type Department Care Team Description 03/18/2009 Historic Notes INTERFACED REPORT Interface, Transcript onMD Social History Tobacco Use Types Packs/Day Years Used Date Smoking Tobacco: Never Alcohol Use Standard Drinks/Week Comments Yes 0 (1 standard drink = 0.6 oz pure alcoho l) socially approx 5 drinks/wk Sex Assigned at Date Recorded Not on file documented as of this encounter Progress Notes Interface, Channel Installer - 07/10/2010 3:15 PM CDT SWS-Attempted again to assess pt and pt continues to be sleeping. Will try again. [Signature] Author: Janeen Bai (RIG HAND) [Signed 14:05] documented in this encounter Plan of Treatment Not on filedocumented as of this encounter Visit Diagnoses Not on filedocumented in this encounter Additional Health Concerns Infection Onset Date Last Indicated Resolved Time MRSA-Contact IsolationComment: 0 04/26/2021 11:03 AM RELIGIOUS HEALER Infection 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
--- OUTSIDE RECORDS SUMMARY | 2022-02-12 13:49 | XMS_ITS | Encounter Summary ---
:1960 Author Organization [place] Address [address] [place] [address] Care Team Providers Name Role Phone Unavailable Primary Care Provider Unavailable Encounter Details Date Type Department Care Team Description 03/21/2009 Historic Results [facility] Hospitalists [address] [place], [place] [address] (Wo rk) Social History Tobacco Use Types [...] Associated Comments Diagnosis GLUCOSE BY METER Routine 03/21/2009 11:52 AM Resu lts for this DIRECTOR MEDICAL SAFETY procedure are i n the results section. PHOSPHORUS Routine 03/21/2009 6:22 AM Results f or this DIRECTOR MEDICAL SAFETY procedure are i n the results section. MAGNESIUM Routine 03/21/2009 6:22 AM Results f or this DIRECTOR MEDICAL SAFETY procedure are i n the results section. BASIC METABOLIC Routine 03/21/2009 6:22 AM Result s for this PANEL DIRECTOR MEDICAL SAFETY procedure are i n the results section. documented in this encounter Results (ABNORMAL) Glucose by meter (03/21/2009 11:52 AM DIRECTOR MEDICAL SAFETY) P athologist Signature Glucose 128 (H) 60 - 99 MISYS mg/dL Specimen Anatomical Collection Method Collection Time Receive d Time (Source) Location / / Volume Laterality 03/21/2009 11:52 03/21/2009 AM DIRECTOR MEDICAL SAFETY 12:10 PM DIRECTOR MEDICAL SAFETY Kaiden REHMAN - BEAKER POCT Performing Organization Address City/State/[facility] Phon e Number MISYS (ABNORMAL) Basic metabolic panel (03/21/2009 6:22 AM DIRECTOR MEDICAL SAFETY) P athologist Signature Sodium 139 133 - 144 MISYS mmol/L Potassium 4.7 3.4 - 5.3 MISYS mmol/L Chloride 106 94 - 109 MISYS mmol/L Carbon Dioxide 20 20 - 32 MISYS mmol/L Glucose 106 (H) 60 - 99 MISYS mg/dL Urea Nitrogen 14 5 - 24 MISYS mg/dL Creatinine 1.19 0.66 - MISYS 1.25 mg/dL Comment: New IDMS-traceable calibration beginning 08/23/07 GFR Estimate 66 >60 mL/min/1.7m2 MISYS GFR Estimate If Black 80 >60 mL/min/1.7m2 M ISYS Calcium 9.6 8.5 - 10.4 mg/dL MISYS Anion Gap 14 6 - 17 mmol/L MISYS Specimen (Source) Anatomical Collection Method Collection Time Re ceived Time Location / / Volume Laterality 03/21/2009 6:22 AM 9 DIRECTOR MEDICAL SAFETY Liam Traylor MD LAB - BLOOD ORDERABLES Performing Organization Address [facility] Phon e Number MISYS Phosphorus (03/21/2009 6:22 AM DIRECTOR MEDICAL SAFETY) athologist Signature Phosphorus 2.7 2.5 - 4.5 MISYS mg/dL Specimen Anatomical Collection Method Collection Time Receive d Time (Source) Location / / Volume Laterality 03/21/2009 6:22 AM 9 6:30 DIRECTOR MEDICAL SAFETY AM DIRECTOR MEDICAL SAFETY Liam Traylor MD LAB - BLOOD ORDERABLES Performing Organization Address City/[facility] Phon e Number MISYS (ABNORMAL) Magnesium (03/21/2009 6:22 AM DIRECTOR MEDICAL SAFETY) athologist Signature Magnesium 1.5 (L) 1.6 - 2.3 MISYS mg/dL Comment: Reviewed, acceptable Specimen Anatomical Collection Method Collection Time Receive d Time (Source) Location / / Volume Laterality 03/21/2009 6:22 AM 9 6:42 DIRECTOR MEDICAL SAFETY AM DIRECTOR MEDICAL SAFETY Liam Traylor MD LAB - BLOOD ORDERABLES Performing Organization Address City/[facility]/ZIP Code Phon e Number MISYS documented in this encounter Visit Diagnoses Not on filedocumented in this encounter Additional Health Concerns Infection Onset Date Last Indicated Resolved Time MRSA-Contact IsolationComment: 0 04/26/2021 11:03 AM DIRECTOR MEDICAL SAFETY Infection 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
--- OUTSIDE RECORDS SUMMARY | 2022-02-12 13:49 | XMS_ITS | Encounter Summary ---
:1960 Author Organization [place] [facility] Address [address] [place] [address] Care Team Providers Name Role Phone Unavailable Primary Care Provider Unavailable Encounter Details Date Type Department Care Team Description 03/18/2009 Historic Notes INTERFACED REPORT Xu Wyatt MD [address] [facility] [address] [place] [address] (Wo rk) Social History Tobacco Use Types Packs/Day Years Used Date Smoking Tobacco: Never Alcohol Use Standard Drinks/Week Comments Yes 0 (1 standard drink = 0.6 oz pure alcoho l) socially approx 5 drinks/wk Sex Assigned at Date Recorded Not on file documented as of this encounter Progress Notes Brian Wyatt - 07/10/2010 3:16 PM CDT ICU Staff S: Pt awake, following commands O: VSS, Tmax 38.8 I/O: 2400/3900. 1000 cc urine since [place] Chest: few coarse BS Abd: soft Ext: no edema Vault Maker 1.6, Na 145, WBC 8.8, Hgb 9.9, K: 3.1, PO4 1.6, Mg 1.5 Pt passed CPAP trial A/P: Respiratory failure: exubated, agressive pulm toilet, mobilize. DC narcs and ativan Recovering ATN with Na 145: change to 1/2 NS Severe hypokalemia, hypomagnesemia, hypophosphatemia: replace D/C NG, swallow study tomorrow [phone] [Signature] Author: BRIAN WYATT) [Signed 08:45] documented in this encounter Plan of Treatment Not on filedocumented as of this encounter Visit Diagnoses Not on filedocumented in this encounter Additional Health Concerns Infection Onset Date Last Indicated Resolved Time MRSA-Contact IsolationComment: 0 04/26/2021 11:03 AM PATIENT SCHEDULER Infection 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
--- OUTSIDE RECORDS SUMMARY | 2022-02-12 13:49 | XMS_ITS | Encounter Summary ---
:1960 Author Organization [facility] Address [address] [place] [address] Care Team Providers Name Role Phone Unavailable Primary Care Provider Unavailable Encounter Details Date Type Department Care Team Description 07/02/2009 [facility] DO [address] [place], [place] [id number] [phone] Social History Tobacco Use Types Packs/Day Years Used Date Smoking Tobacco: Never Alcohol Use Standard Drinks/Week Comments Yes 0 (1 standard drink = 0.6 oz pure alcoho l) socially approx 5 drinks/wk Sex Assigned at Date Recorded Not on file documented as of this encounter Plan of Treatment Not on filedocumented as of this encounter Procedures Procedure Name Priority Date/Time Associated Comments Diagnosis STAPH AUREUS Routine 07/02/2009 8:45 AM Results f or this METHICILLIN RESISTANT TECHNICIAN TRAINEE proced ure are in PCR (RW) the results section. REFERRAL SENSITIVITY Routine 07/02/2009 8:45 AM R esults for this TECHNICIAN TRAINEE procedure are i n the results section. COMPREHENSIVE Routine 07/02/2009 7:05 AM Results for this METABOLIC PANEL TECHNICIAN TRAINEE procedure ar e in the results section. CBC WITH PLATELETS Routine 07/02/2009 7:05 AM Res ults for this TECHNICIAN TRAINEE procedure are i n the results section. documented in this encounter Results Staph aureus methicillin resistant PCR (07/02/2009 8:45 AM TECHNICIAN TRAINEE) [facility] Method Time Signature Specimen Nares MISYS Description Methicillin Positive: MISYS Resist/Sens S. 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 Comment: FDA approved assay performed using General Assembly GeneXpert(R) real-time PCR with amplification of a sequence in a casset te inserted in the S.aureus chromosome. Specimen Anatomical Collection Method Collection Time Receive d Time (Source) Location / / Volume Laterality 07/02/2009 8:45 AM 0 3:04 TECHNICIAN TRAINEE PM TECHNICIAN TRAINEE Harvey Dang MD LAB - MICRO GENERAL ORDERABL ES Performing Organization Address City/State/ZIP Code Phon e Number MISYS Referral sensitivity (07/02/2009 8:45 AM TECHNICIAN TRAINEE) Component Value Ref Test Analysis Performed Pathologis t Range Method Time At Signature Specimen Nares MISYS Description Culture Micro No MRSA isolated: MISYS susceptibilities not available. PCR assay is more sensitive Comment: than culture. Micro Report Status FINAL 07/05/2009 MIS YS Specimen Anatomical Collection Method Collection Time Receive d Time (Source) Location / / Volume Laterality 07/02/2009 8:45 AM 0 4:22 TECHNICIAN TRAINEE PM TECHNICIAN TRAINEE Josue Crain DO LAB - MICRO GENERAL ORDERABL ES Performing Organization Address City/State/ZIP Code Phon e Number MISYS (ABNORMAL) Comprehensive metabolic panel (07/02/2009 7:05 AM TECHNICIAN TRAINEE) P athologist Signature Sodium 137 133 - 144 MISYS mmol/L Potassium 3.9 3.4 - 5.3 MISYS mmol/L Chloride 104 94 - 109 MISYS mmol/L Carbon Dioxide 24 20 - 32 MISYS mmol/L Glucose 103 (H) 60 - 99 MISYS mg/dL Urea Nitrogen 9 5 - 24 MISYS mg/dL Creatinine 0.79 0.66 - MISYS 1.25 mg/dL Comment: New IDMS-traceable calibration beginning 08/23/07 GFR Estimate >90 >60 mL/min/1.7m2 MISYS GFR Estimate If Black >90 >60 mL/min/1.7m2 M ISYS Calcium 8.4 (L) 8.5 - 10.4 mg/dL MISYS AST 665 (H) 0 - 55 U/L MISYS Protein Total 6.7 (L) 6.8 - 8.8 g/dL MISYS Anion Gap 9 6 - 17 mmol/L MISYS Albumin 3.3 (L) 3.9 - 5.1 g/dL MISYS ALT 143 (H) 0 - 70 U/L MISYS Alkaline Phosphatase 180 (H) 40 - 150 U/L MISYS Bilirubin Total 2.9 (H) 0.2 - 1.3 mg/dL MISYS Specimen Anatomical Collection Method Collection Time Receive d Time (Source) Location / / Volume Laterality 07/02/2009 7:05 AM 0 TECHNICIAN TRAINEE 10:54 AM TECHNICIAN TRAINEE Harvey Dang MD LAB - BLOOD ORDERABLES Performing Organization Address City/State/ZIP Code Phon e Number MISYS (ABNORMAL) CBC with platelets (07/02/2009 7:05 AM TECHNICIAN TRAINEE) Analysis Performed At Patho logist Time Signature MCV 97 78 - 100 MISYS fl MCH 31.0 26.5 - MISYS 33.0 pg MCHC 32.0 31.5 - MISYS 36.5 g/dL RDW 15.0 10.0 - MISYS 15.0 % WBC 4.2 4.0 - 11.0 MISYS 10e9/L RBC Count 3.39 (L) 4.4 - 5.9 MISYS 10e12/L Hemoglobin 10.5 (L) 13.3 - MISYS 17.7 g/dL Hematocrit 32.8 (L) 40.0 - MISYS 53.0 % Platelet Count 98 (L) 150 - 450 MISYS 10e9/L Specimen Anatomical Collection Method Collection Time Receive d Time (Source) Location / / Volume Laterality 07/02/2009 7:05 AM 0 7:52 TECHNICIAN TRAINEE AM TECHNICIAN TRAINEE Harvey Dang MD LAB - BLOOD ORDERABLES Performing Organization Address City/State/ZIP Code Phon e Number MISYS documented in this encounter Visit Diagnoses Not on filedocumented in this encounter Additional Health Concerns Infection Onset Date Last Indicated Resolved Time MRSA-Contact IsolationComment: 0 04/26/2021 11:03 AM TECHNICIAN TRAINEE Infection 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
--- OUTSIDE RECORDS SUMMARY | 2022-02-12 13:49 | XMS_ITS | Encounter Summary ---
:1960 Author Organization [facility] Address [address] [place] [address] Care Team Providers Name Role Phone Unavailable Primary Care Provider Unavailable Encounter Details Date Type Department Care Team Description 06/30/2009 Emergency room [facility] Rina Shin MD Hospital Results EMERGENCY PHYSI CECILIO MCKOY [address] [place], [place] [address] (Wo rk) Social History Tobacco Use Types Packs/Day Years Used Date Smoking Tobacco: Never Alcohol Use Standard Drinks/Week Comments Yes 0 (1 standard drink = 0.6 oz pure alcoho l) socially approx 5 drinks/wk Sex Assigned at Date Recorded Not on file documented as of this encounter Progress Notes Rina Shin - 07/04/2009 2:40 AM DIRECTOR OF COMPENSATION FINAL CHIEF COMPLAINT: Fall. HISTORY OF PRESENT ILLNESS: Elijah Brown is a 48-year-old white male who was brought in by EMS after a fall at home. Apparently he was intoxicated and his roommate noticed that he was drunk and felland called EMS. He is obviously intoxicated and tells me that he did not drink anything at all but later changed his story when I told him his alcohol level was 0.14. He states he only had a few drinkslast night, said only 4-5 glasses of whiskey mixed with Coke. He said he was walking down steps and thinks maybe he fell 6-7 steps. He said he did not pass out. He said he only hit the back of his head. He denies any neck pain, any pain right now. He says it was his girlfriend that called. REVIEW OF SYSTEMS: Please see HPI, all other systems negative. ALLERGIES: None. MEDICATIONS: Lipitor, lisinopril, vitamins. PAST MEDICAL HISTORY: Hypertension, alcohol abuse and high cholesterol. SOCIAL HISTORY: He denies smoking or drug use. He says he drinks 2 shots of whiskey every day. PHYSICAL EXAMINATION: VITAL SIGNS: Blood pressure 121/74, pulse 108, respiration 22, temperature 97.6, O2 sat 97% on roomair. GENERAL: The patient is alert but he smells of alcohol, is slurring his words a little bit, is intoxicated. He complains of no pain. SKIN: No rashes or evidence of trauma anywhere but does have some dried blood around his nose. HEENT: Normal except for dried blood in his nose. NECK: Soft and supple, nontender to palpation. No midline tenderness in the posterior spine. LUNGS:Clear to auscultation bilaterally. HEART: Tachycardic, no murmurs, rubs or gallops. ABDOMEN: Soft, nontender, nondistended. Good bowel sounds. BACK: Showed no thoracic or cervical tenderness in the midline. EXTREMITIES: Show warm and well perfused, good distal pulses. NEUROLOGIC: Nonfocal, but he does not cooperate to the best that he can. LABORATORY AND DIAGNOSTIC EVALUATION: Alcohol level of 0.07. CBC is normal except for hemoglobin 12.1, hematocrit 36.7. Electrolytes normal except for chloride 92, bicarbonate 17, glucose 122, BUN 42,creatinine 2.28. CT head is negative for any acute injury. EMERGENCY DEPARTMENT EVALUATION: The patient did have an IV started, was given a liter of fluid, normal saline and then a banana bag. He was monitored here. He does have evidence of dehydration as well as a creatinine. He had a history of elevated creatinine in the past, but it looks like the last time he was admitted, it did normalize. Again, in the past it looked like it was due to dehydration. The patient is denying decreasing p.o., although I suspect that maybe he is actually drinking alcohol instead of just regular fluids. This patient will need to be admitted to the Med/Surg bed. I talked toDr. Dang, who came down and who accepted the patient and did see the patient in the ER. EMERGENCY DEPARTMENT DIAGNOSES: 1. Alcohol intoxication. 2. Dehydration. 3. Acute renal insufficiency. Electronically signed on 07/04/2009 02:40 by RINA SHIN MD MT: [id number] Name: ELIJAH BROWN Account: [id number] : 1960 Visit Date: 06/30/2009 Document: [id number] CTOR OF COMPENSATION documented in this encounter Plan of Treatment Not on filedocumented as of this encounter Visit Diagnoses Not on filedocumented in this encounter Additional Health Concerns Infection Onset Date Last Indicated Resolved Time MRSA-Contact IsolationComment: 0 04/26/2021 11:03 AM DIRECTOR OF COMPENSATION Infection 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
--- OUTSIDE RECORDS SUMMARY | 2022-02-12 13:49 | XMS_ITS | Encounter Summary ---
:1960 Author Organization [facility] Address [address] [place] [address] Care Team Providers Name Role Phone Unavailable Primary Care Provider Unavailable Encounter Details Date Type Department Care Team Description 03/21/2009 Discharge Summary [facility] Kristen, (Saddle And Side Wire Stitcher) [facility] Kevin Lee DO Results [address] [place] [address] (Wo rk) Social History Tobacco Use Types Packs/Day Years Used Date Smoking Tobacco: Never Alcohol Use Standard Drinks/Week Comments Yes 0 (1 standard drink = 0.6 oz pure alcoho l) socially approx 5 drinks/wk Sex Assigned at Date Recorded Not on file documented as of this encounter Progress Notes Kevin Peterson - 03/24/2009 10:04 PM ETL LEAD FINAL DISCHARGE DIAGNOSES: 1. Acute rhabdomyolysis, resolved. 2. Renal secondary to #1, resolved. 3. Severe metabolic acidosis with elevated anion gap secondary to rhabdomyolysis, resolved. 4. Respiratory failure related to above and acute alcohol intoxication, requiring mechanical ventilation from 03/14/2009 to 03/17/2009. 5. Alcohol abuse with acute alcohol intoxication. 6. Encephalopathy, resolved, multifactorial. 7. Clostridium difficile positive diarrhea on culture 03/17/2009, light growth. 8. Possible aspiration pneumonia, finishing a 7 day antibiotic course. 9. Fevers, resolved, possibly secondary to the above Clostridium difficile and possible pneumonia. 10. Hypertension. 11. Hyperlipidemia. 12. Gastroesophageal reflux disease. 13. Hypomagnesemia, chronic. MEDICATIONS AT TIME OF DISCHARGE: NEW MEDICINES: 1. Augmentin 875/125 one p.o. b.i.d. for 3 more days. 2. Flagyl 500 mg t.i.d., discontinue on 04/01/2009. UNCHANGED MEDICATIONS: 1. Prilosec 40 mg daily. 2. Lisinopril 20 mg daily. 3. Lipitor daily (dose unknown). 4. Magnesium oxide 400 mg daily. 5. Fish oil supplements daily. FOLLOWUP CARE: 1. The patient to follow up with his primary care provider at [facility] within 2 weeks for hospital followup and removal and completion of antibiotic regimen as above. 2. The patientrefused any CD evaluation or treatment during this admission. STUDIES PENDING AT TIME OF DISCHARGE: None. DIET: The patient is on a cardiac diet without other restrictions. CONDITION ON DISCHARGE: Stable. HISTORY OF PRESENT ILLNESS: Please see history and physical for complete details. In brief, Elijah Brown is a 48-year-old male patient who came in with decreased mental status and acute rhabdomyolysis after several weeks of heavy alcohol use. PHYSICAL EXAMINATION AT DISCHARGE: GENERAL: Alert, oriented, no acute distress, awake at time of discharge: VITAL SIGNS: Blood pressure 143/90, pulse 105, respirations 18, temperature 99.0 degrees, 97% on room air. HEENT: Head is normocephalic, atraumatic. Pupils equal, round, reactive to light. Mucous membranes moist to examination. No oral ulcers noted. NECK: No thyromegaly, no JVD. LYMPHATICS: None palpable in the cervical or clavicular area. HEART: Regular rate and rhythm, without loud murmurs auscultated. S1 plus S2 were auscultated. LUNGS: Clear to auscultation bilaterally. No costal extractions noted. No wheezes, no rales auscultated. The patient able to take full respiration without difficulty. ABDOMEN: Active bowel sounds noted. Soft, nontender, nondistended on examination. No rebound, guarding or rigidity appreciated. No obvious hepatosplenomegaly noted to examination. EXTREMITIES: No pretibial edema noted bilaterally. No calf tenderness. No calf asymmetry bilaterally. SKIN: No rashes or jaundice noted. PSYCHIATRIC: Mood is appropriate. Making direct eye contact. Not overall depressed or anxious. NEUROLOGIC: Alert, oriented. Speech clear and appropriate. Moving all extremities without significant difficulty or deficits. IMAGIN. Chest x-ray on admission showed questionable atelectasis, bilateral bases. This is actually imaging-resolved on serial chest x-rays daily, off the vent from 03/18. No obvious pneumonia. Atelectasis, minimal on 03/18/2009. 2. Video swallow was normal on 03/20/2009. LABORATORY: 1. C. diff light growth on 03/17/2009 on culture, negative C. diff toxin from 03/19/2009. 2. Urine culture from 03/16/2009 showed coagulase-negative staph 50- 100,000, pansusceptible. 3. Blood culture from 03/16/2009 negative. 4. MRSA positive from nares on 03/14/2009, 1 out of 2. Other labs: Magnesium on discharge 175, hemoglobin 11.9, AST measured 134, ALT 40, total bilirubin 1.4. Examination on 05/20 included potassium 6.1, creatinine 18.0, BUN 123. Troponin 0.189. CK 2,596.Creatinine slowly resolved serially, at discharge 1.18. Acetaminophen level normal. Salicylate level normal. Ethylene glycol level normal. CONSULTATIONS OBTAINED: 1. Nephrology. 2. Intensive care medicine. 3. For acute renal failure, rhabdomyolysis and hemodialysis treatment. HOSPITAL COURSE AND TREATMENT RENDERED: 1. Acute rhabdomyolysis, acute renal failure, hyperkalemia and mental status changes thought secondary to acute alcohol intoxication. He was intubated on admission and presented with the above, intubated, admitted to the intensive care unit and started on aggressive IV fluids, did undergo hemodialysis treatment serially after nephrology consultation. Toxicology screen is all negative. With aggressive IV fluid treatment, he needed minimal hemodialysis treatment. Labs were all normal at time of discharge. Initially, his lisinopril was held, obviously for the above, but could be reinitiated with close followup and BMP within 2 weeks with his primary care provider. 2. Alcohol intoxication. He has a history of significant alcohol use and came in with severe dehydration secondary to heavy alcohol use for the last 2 weeks. No obvious acute toxicology screen positive for other ingestions causing rhabdomyolysis and renal failure. He was evaluated by CD, refused any further intervention or treatment, was strongly stated not to use alcohol at the time of discharge. 3. Fevers. Initially thought to possibly be at risk for aspiration. He has been on Zosyn since 03/17/2009. He has a positive C. diff light growth on 03/17/2009. We will continue 2 weeks of Flagyl. Complete 7 total days of Augmentin. 4. Hyperlipidemia. He can resume his home Lipitor and fish oil supplements at time of discharge. 5. Gastroesophageal reflux disease. Continue the PPI as prior to admission. 6. Respiratory failure. Again, no obvious pneumonia clearly. Will Complete a 7 day course for possible aspiration. Respiratory status secondary to acute injury was stable without oxygen for 48 hours prior to discharge. He will need close followup in 2 weeks with a BMP. 7. Hypomagnesemia. Continue his home supplements, most likely secondary to alcohol related. He doeshave daily magnesium, will have a magnesium drawn in 2 weeks at discharge as well. Greater than 30 minutes was spent in total coordination of discharge time and direct patient care and counseling today. Electronically signed on 03/24/2009 22:03 by KEVIN PETERSON DO MT: [id number] Name: ELIJAH BROWN Account: [id number] : 1960 Admit Date: Discharge Date: 03/21/2009 Document: [id number] cc: [facility] LEAD documented in this encounter Plan of Treatment Not on filedocumented as of this encounter Visit Diagnoses Not on filedocumented in this encounter Additional Health Concerns Infection Onset Date Last Indicated Resolved Time MRSA-Contact IsolationComment: 0 04/26/2021 11:03 AM ETL LEAD Infection 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
--- OUTSIDE RECORDS SUMMARY | 2022-02-12 13:49 | XMS_ITS | Encounter Summary ---
:1960 Author Organization [facility] Address [address] [place] [address] Care Team Providers Name Role Phone Unavailable Primary Care Provider Unavailable Encounter Details Date Type Department Care Team Description 07/01/2009 Historic Results [facility]Gianni Helton MD Hospitalists [address] [facility] [place] [place] [address] (Wo rk) Social History [...] Associated Comments Diagnosis GLUCOSE BY METER Routine 07/01/2009 7:01 PM Resul ts for this DISPLAY FABRICATION SUPERVISOR procedure are i n the results section. INR AND PTT PANEL Timed 07/01/2009 11:10 Result s for this AM DISPLAY FABRICATION SUPERVISOR procedure are i n the results section. ROUTINE UA WITH Routine 07/01/2009 10:40 Results for this MICROSCOPIC AM DISPLAY FABRICATION SUPERVISOR procedure are i n the results section. URINE CULTURE Routine 07/01/2009 10:40 Results fo r this AM DISPLAY FABRICATION SUPERVISOR procedure are i n the results section. CBC WITH PLATELETS Timed 07/01/2009 10:40 Resul ts for this AM DISPLAY FABRICATION SUPERVISOR procedure are i n the results section. BLOOD CULTURE STAT 07/01/2009 8:20 AM Results for this DISPLAY FABRICATION SUPERVISOR procedure are i n the results section. BLOOD CULTURE STAT 07/01/2009 8:05 AM Results for this DISPLAY FABRICATION SUPERVISOR procedure are i n the results section. HEPATIC FUNCTION Routine 07/01/2009 6:20 AM Resul ts for this PANEL DISPLAY FABRICATION SUPERVISOR procedure are i n the results section. BASIC METABOLIC PANEL Routine 07/01/2009 6:20 AM Results for this DISPLAY FABRICATION SUPERVISOR procedure are i n the results section. documented in this encounter Results (ABNORMAL) Glucose by meter (07/01/2009 7:01 PM DISPLAY FABRICATION SUPERVISOR) athologist Signature Glucose 217 (H) 60 - 99 MISYS mg/dL Specimen Anatomical Collection Method Collection Time Receive d Time (Source) Location / / Volume Laterality 07/01/2009 7:01 PM 0 7:05 DISPLAY FABRICATION SUPERVISOR PM DISPLAY FABRICATION SUPERVISOR Josue Crain DO LAB - BEAKER POCT Performing Organization Address City/State/ZIP Code Phon e Number MISYS INR AND PTT PANEL (07/01/2009 11:10 AM DISPLAY FABRICATION SUPERVISOR) athologist Signature INR 0.95 0.86 - 1.14 MISYS PTT 26 22 - 37 sec MISYS Specimen Anatomical Collection Method Collection Time Receive d Time (Source) Location / / Volume Laterality 07/01/2009 11:10 07/01/2009 AM DISPLAY FABRICATION SUPERVISOR 10:50 AM DISPLAY FABRICATION SUPERVISOR Harvey Dang MD LAB - BLOOD ORDERABLES Performing Organization Address City/State/ZIP Code Phon e Number MISYS (ABNORMAL) Routine UA with microscopic (07/01/2009 10:40 AM DISPLAY FABRICATION SUPERVISOR) Component Value Ref Test Analysis Performed At [facility] gist Range Method Time Signature Source Catheterized MISYS Urine Color Urine Yellow MISYS Appearance Urine Clear MISYS Glucose Urine Negative NEG MISYS mg/dL Bilirubin Urine Negative NEG MISYS Ketones Urine 10 (A) NEG MISYS mg/dL Specific [place] 1.010 1.003 - MISYS Urine 1.035 Blood Urine Small (A) NEG MISYS pH Urine 6.0 5.0 - MISYS 7.0 pH Protein Albumin Negative NEG MISYS Urine mg/dL Urobilinogen Normal 0.0 - MISYS mg/dL 2.0 mg/dL Nitrite Urine Negative NEG MISYS Leukocyte Negative NEG MISYS Esterase Urine WBC Urine 1 0 - 2 MISYS /HPF RBC Urine 2 0 - 2 MISYS /HPF Specimen Anatomical Collection Method Collection Time Receive d Time (Source) Location / / Volume Laterality 07/01/2009 10:40 07/01/2009 8:01 AM DISPLAY FABRICATION SUPERVISOR AM DISPLAY FABRICATION SUPERVISOR Harvey Dang MD LAB - URINE ORDERABLES Performing Organization Address City/[facility]/ZIP Code Phon e Number MISYS (ABNORMAL) CBC with platelets (07/01/2009 10:40 AM DISPLAY FABRICATION SUPERVISOR) Analysis Performed At Patho logist Time Signature MCV 96 78 - 100 MISYS fl MCH 31.2 26.5 - MISYS 33.0 pg MCHC 32.6 31.5 - MISYS 36.5 g/dL RDW 15.2 (H) 10.0 - MISYS 15.0 % WBC 3.9 (L) 4.0 - 11.0 MISYS 10e9/L RBC Count 3.21 (L) 4.4 - 5.9 MISYS 10e12/L Hemoglobin 10.0 (L) 13.3 - MISYS 17.7 g/dL Hematocrit 30.7 (L) 40.0 - MISYS 53.0 % Platelet Count 72 (L) 150 - 450 MISYS 10e9/L Specimen Anatomical Collection Method Collection Time Receive d Time (Source) Location / / Volume Laterality 07/01/2009 10:40 07/01/2009 AM DISPLAY FABRICATION SUPERVISOR 10:30 AM DISPLAY FABRICATION SUPERVISOR Harvey Dang MD LAB - BLOOD ORDERABLES Performing Organization Address City/[facility] Phon e Number MISYS Urine culture (07/01/2009 10:40 AM DISPLAY FABRICATION SUPERVISOR) Component Value Ref Test Analysis Performed At [facility] [employer] Range Method Time Signature Specimen Catheterized MISYS Description Urine Culture Micro No growth MISYS Micro Report FINAL 07/02/2009 MISYS Status Specimen Anatomical Collection Method Collection Time Receive d Time (Source) Location / / Volume Laterality 07/01/2009 10:40 07/01/2009 8:01 AM DISPLAY FABRICATION SUPERVISOR AM DISPLAY FABRICATION SUPERVISOR Harvey Dang MD LAB - MICRO GENERAL ORDERABL ES Performing Organization Address City/[facility] Phon e Number MISYS Blood culture (07/01/2009 8:20 AM DISPLAY FABRICATION SUPERVISOR) [facility] [employer] Method Time Signature Specimen Blood Left MISYS Description Hand Culture Micro No growth MISYS after 6 days Micro Report FINAL MISYS Status [id number] Specimen Anatomical Collection Method Collection Time Receive d Time (Source) Location / / Volume Laterality 07/01/2009 8:20 AM 0 8:02 DISPLAY FABRICATION SUPERVISOR AM DISPLAY FABRICATION SUPERVISOR Harvey Dang MD LAB - MICRO GENERAL ORDERABL ES Performing Organization Address City/[facility] Phon e Number MISYS Blood culture (07/01/2009 8:05 AM DISPLAY FABRICATION SUPERVISOR) Patholo gist Method Time Signature Specimen Blood Right MISYS Description Arm Culture Micro No growth MISYS after 6 days Micro Report FINAL MISYS Status [id number] Specimen Anatomical Collection Method Collection Time Receive d Time (Source) Location / / Volume Laterality 07/01/2009 8:05 AM 0 8:02 DISPLAY FABRICATION SUPERVISOR AM DISPLAY FABRICATION SUPERVISOR Harvey Dang MD LAB - MICRO GENERAL ORDERABL ES Performing Organization Address City/State/ZIP Code Phon e Number MISYS (ABNORMAL) Basic metabolic panel (07/01/2009 6:20 AM DISPLAY FABRICATION SUPERVISOR) P athologist Signature Sodium 135 133 - 144 MISYS mmol/L Potassium 4.6 3.4 - 5.3 MISYS mmol/L Chloride 99 94 - 109 MISYS mmol/L Carbon Dioxide 19 (L) 20 - 32 MISYS mmol/L Glucose 88 60 - 99 MISYS mg/dL Urea Nitrogen 27 (H) 5 - 24 MISYS mg/dL Creatinine 1.20 0.66 - MISYS 1.25 mg/dL Comment: New IDMS-traceable calibration beginning 08/23/07 GFR Estimate 65 >60 mL/min/1.7m2 MISYS GFR Estimate If Black 79 >60 mL/min/1.7m2 M ISYS Calcium 8.4 (L) 8.5 - 10.4 mg/dL MISYS Anion Gap 17 6 - 17 mmol/L MISYS Specimen Anatomical Collection Method Collection Time Receive d Time (Source) Location / / Volume Laterality 07/01/2009 6:20 AM 0 2:28 DISPLAY FABRICATION SUPERVISOR PM DISPLAY FABRICATION SUPERVISOR Harvey Dang MD LAB - BLOOD ORDERABLES Performing Organization Address City/State/ZIP Code Phon e Number MISYS (ABNORMAL) Hepatic panel (07/01/2009 6:20 AM DISPLAY FABRICATION SUPERVISOR) Analysis Performed At Patho logist Time Signature AST 650 (H) 0 - 55 U/L MISYS Protein Total 6.8 6.8 - 8.8 MISYS g/dL Albumin 3.7 (L) 3.9 - 5.1 MISYS g/dL ALT 134 (H) 0 - 70 U/L MISYS Alkaline 211 (H) 40 - 150 MISYS Phosphatase U/L Bilirubin 0.8 (H) 0.0 - 0.3 MISYS Conjugated mg/dL Bilirubin Delta 0.7 (H) 0.0 - 0.4 MISYS mg/dL Bilirubin Total 2.3 (H) 0.2 - 1.3 MISYS mg/dL Specimen Anatomical Collection Method Collection Time Receive d Time (Source) Location / / Volume Laterality 07/01/2009 6:20 AM 0 DISPLAY FABRICATION SUPERVISOR 10:21 AM DISPLAY FABRICATION SUPERVISOR Harvey Dang MD LAB - BLOOD ORDERABLES Performing Organization Address City/State/ZIP Code Phon e Number MISYS documented in this encounter Visit Diagnoses Not on filedocumented in this encounter Additional Health Concerns Infection Onset Date Last Indicated Resolved Time MRSA-Contact IsolationComment: 0 04/26/2021 11:03 AM DISPLAY FABRICATION SUPERVISOR Infection 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
--- OUTSIDE RECORDS SUMMARY | 2022-02-12 13:49 | XMS_ITS | Encounter Summary ---
:1960 Author Organization [facility] Address [address] [place] [address] Care Team Providers Name Role Phone Unavailable Primary Care Provider Unavailable Encounter Details Date Type Department Care Team Description 07/02/2009 Historic Notes INTERFACED REPORT Cali Dang MD [address] [place], [place] [address] (Wo rk) Social History Tobacco Use Types Packs/Day Years Used Date Smoking Tobacco: Never Alcohol Use Standard Drinks/Week Comments Yes 0 (1 standard drink = 0.6 oz pure alcoho l) socially approx 5 drinks/wk Sex Assigned at Date Recorded Not on file documented as of this encounter Progress Notes Cali Dang - 07/10/2010 8:43 AM CDT - transferred to ICU yesterday for agitation related to etoh withdrawal - per nurse, hallucinating last night and given haldol which seemed to help - scoring 9-10 on CIWA overnight Last 24 hours Vitals signs,imaging,microbiology;laboratory results were reviewed by me in [facility] fever curve much improved intermittent tachycardia GENERAL: Comfortable. PSYCH: confused, awake. is able to answer questions. correctly states month/year HEART: Normal S1, S2 with no edema. LUNGS: Clear to auscultation, normal Respiratory effort. ABDOMEN: Soft, no hepatosplenomegaly, normal bowel sounds. SKIN: Dry to touch, No rash. CMP reviewed CBC not done IMPRESSION AND PLAN: Mr. Juan Pablo Brown is a 48-year-old male with a history of alcohol abuse, admitted through the emergency room for dehydration, acute renal failure, alcohol intoxication. 1. Alcohol intoxication with a history of alcohol abuse. - daily banana bag - SW consult to assist with etoh issues 2. Acute renal failure. - improved with IVF. secondary to dehydration 3. Dehydration 4. Thrombocytopenia. I suspect related to his alcohol use. He does have a history of thrombocytopenia on previous labs as well. 5. HTN hx - lisinopril on hold given ARF 5. ppx: pneumoboots. consider lovenox if no improvement in next 1-2 days, if plt count remains stable 6. fever - resolved. ? withdrawal related. ? atelectasis. CXR, UA neg. bld cx pending. monitoring off antibiotics. 7. tachycardia - sinus tach secondary to withdrawal. on IV metoprolol 8. Transaminitis secondary to ETOH hepatitis +/- fatty liver - abd u/s shows fatty liver; GB and CBD nml 9. nutrition - begin PO when safe to do from withdrawal perspective - if unable to eat in next several days, start supplemental nutrition 10. alcohol withdrawal - continue withdrawal protocol - prn ativan/haldol Addendum Section 09:36 Entered By: CALI DANG - platelet count improved at 100. will start Lovenox for prophylaxis [Signature] Author: CALI DANG) [Signed 09:36] documented in this encounter Plan of Treatment Not on filedocumented as of this encounter Visit Diagnoses Not on filedocumented in this encounter Additional Health Concerns Infection Onset Date Last Indicated Resolved Time MRSA-Contact IsolationComment: 0 04/26/2021 11:03 AM SERVICES REP Infection 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
--- OUTSIDE RECORDS SUMMARY | 2022-02-12 13:49 | XMS_ITS | Encounter Summary ---
:1960 Author Organization [facility] Address [address] [place] [address] Care Team Providers Name Role Phone Unavailable Primary Care Provider Unavailable Encounter Details Date Type Department Care Team Description 07/01/2009 Results Only [facility] Harvey Dang, Hospital Results [address] [place], [place] [address] (Wo rk) Social History [...] Priority Date/Time Associated Diagnosis Comme nts US ABDOMEN Routine 07/01/2009 2:18 PM Results for this COMPLETE TRAPEZE ARTIST procedure are i n the results section. HC CHEST ONE VIEW Routine 07/01/2009 8:34 AM Resu lts for this TRAPEZE ARTIST procedure are i n the results section. documented in this encounter Results SONO ABDOMEN COMPLETE (07/01/2009 2:18 PM TRAPEZE ARTIST) Anatomical Region Laterality Modality Other Specimen (Source) Anatomical Collection Method Collection Time Re ceived Time Location / / Volume Laterality 07/01/2009 2:18 PM TRAPEZE ARTIST Impressions 07/01/2009 3:45 PM TRAPEZE ARTIST ULTRASOUND ABDOMEN COMPLETE PORTABLE ?? arch 2009 2:18 PM HISTORY: Elevated liver function tests. FINDINGS: Liver is increased in [facility] without focal lesions. Gallbladder is normal without stones or sludge. ??Common bile duct is normal in diameter. ??Pancreas is obscur ed by bowel gas. Spleen is normal. ??Kidneys are normal in size wit h a tiny cyst in the midleft kidney measuring 1.0 cm. There is no ??h ydronephrosis. Proximal abdominal aorta is unremarkable. The IVC is not well visualized due to overlying bowel gas. IMPRESSION: ?? 1. Diffuse fatty infiltration of the fernando er. 2. Small cyst midleft kidney measuring 1 .0 cm. Harvey Dang MD SPECIAL IMAGING STUDIES CHEST X-RAY 1 VW (07/01/2009 8:34 AM TRAPEZE ARTIST) Anatomical Region Laterality Modality Other Specimen (Source) Anatomical Collection Method Collection Time Re ceived Time Location / / Volume Laterality 07/01/2009 8:34 AM TRAPEZE ARTIST Impressions 07/01/2009 9:20 AM TRAPEZE ARTIST CHEST 1VIEW PORTABLE Jul 01, 2009 8:34:0 0 AM HISTORY: Fever. FINDINGS: Negative. Harvey Dang MD GENERAL IMAGING documented in this encounter Visit Diagnoses Not on filedocumented in this encounter Additional Health Concerns Infection Onset Date Last Indicated Resolved Time MRSA-Contact IsolationComment: 0 04/26/2021 11:03 AM TRAPEZE ARTIST Infection 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
--- OUTSIDE RECORDS SUMMARY | 2022-02-12 13:49 | XMS_ITS | Encounter Summary ---
:1960 Author Organization [facility] Address [address] [place] [address] Care Team Providers Name Role Phone Unavailable Primary Care Provider Unavailable Encounter Details Date Type Department Care Team Description 03/18/2009 Historic Notes INTERFACED REPORT Deep Alston MD [address] [place], [place] [address] (Wo rk) Social History Tobacco Use Types Packs/Day Years Used Date Smoking Tobacco: Never Alcohol Use Standard Drinks/Week Comments Yes 0 (1 standard drink = 0.6 oz pure alcoho l) socially approx 5 drinks/wk Sex Assigned at Date Recorded Not on file documented as of this encounter Progress Notes Liam Alston - 07/10/2010 3:14 PM CDT VSubjective: Patient extubated, a bit confused but answered simple yes/no questions. Ongoing fevers, but no new problems overnight. Last 24 hours Vitals signs, imaging done, laboratory results were reviewed by me in [facility]. Fevers overnight 102 max, 100.7 currently. Oxygenating well, BP OK GENERAL: No distress, seems comfortable PSYCH: alert but confused. Oriented to person, maybe place. HEENT: PERRLA. Normal conjunctiva, nasal mucosa. ET tube in place NECK: Supple, no neck vein distention, adenopathy or bruits, normal thyroid. HEART: Normal S1, S2 with no murmur, no pericardial rub, S3 or S4. LUNGS: Few right lung field coarse breath sounds, normal Respiratory effort. Decreased BS left base. ABDOMEN: Soft, no hepatosplenomegaly, normal bowel sounds. EXTREMITIES: No pedal edema, +2 pulses bilateral and equal. SKIN: Dry to touch, No rash, wound or ulceration Assessement and Plan: 1. Fevers. Unclear cause. Maybe a small right base infiltrate- pneumonia vs atelectasis. Certainly at risk for aspiration. Continue zosyn. Repeat CXR if fevers persist. Consider c diff- diarrhea persists, but c diff toxin test was equivocal. Culture pending. Continue empiric flagyl- but will need to give iv until able to take PO. Cosider line infection, but line insertion site looks good. If persists without obvious cause consider discontinuing line tomorrow. 2. Acute renal failure. Likely secondary to dehydration and rhabdomyolysis. Improved with dialysis initially, improvement continues. Renal following. Doubt he will need additional dialysis. 3. Severe metabolic acidosis with elevated anion gap. Resolved. 4. Respiratory failure due to above. Was on vent, now extubated. Speech/swallow eval tomorrow. 5. Afib with cardioversion in ED. No recurrence to this point. 6. Troponin elevation. Likely demand ischemia/non-q wave mi related to all of the above. No further w/u at this time. Consider eventual stress test at some point- likely as outpatient once closer to baseline. 7. ETOH dependence with acute withdrawal. Stable. 8. FEN. NPO pending swallow eval. 9. MRSA colonization (nare swab positive). Precautions per protocol. 10. H/o gout. 11. H/o hypercholesterolemia. 11. H/o hypertension. 12. H/o previous GI bleed. On PPI [Signature] Author: LIAM ALSTON) [Signed 14:34] documented in this encounter Plan of Treatment Not on filedocumented as of this encounter Visit Diagnoses Not on filedocumented in this encounter Additional Health Concerns Infection Onset Date Last Indicated Resolved Time MRSA-Contact IsolationComment: 0 04/26/2021 11:03 AM TAX SENIOR ASSOCIATE Infection 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
--- OUTSIDE RECORDS SUMMARY | 2022-02-12 13:49 | XMS_ITS | Encounter Summary ---
:1960 Author Organization [facility] Address [address] [place] [address] Care Team Providers Name Role Phone Unavailable Primary Care Provider Unavailable Encounter Details Date Type Department Care Team Description 03/19/2009 Historic Notes INTERFACED REPORT Xu Wyatt MD [address] [facility] [address] [place], [place] [address] (Wo rk) Social History Tobacco Use Types Packs/Day Years Used Date Smoking Tobacco: Never Alcohol Use Standard Drinks/Week Comments Yes 0 (1 standard drink = 0.6 oz pure alcoho l) socially approx 5 drinks/wk Sex Assigned at Date Recorded Not on file documented as of this encounter Progress Notes Brian Wyatt - 07/10/2010 3:11 PM CDT ICU Staff Pt feeling well today O: VSS, Afeb Chest: CTA Abd: soft Ext: no edema Tuft Machine Operator 1.5 I/Os balanced A/P: Renal failure; recovering S/P intubation: swallow eval: Advance diet if tolerated Alcoholism: discussed with pt. Chem dep consult D/C central line Stable for transfer to floor GB [Signature] Author: BRIAN WYATT) [Signed 11:07] documented in this encounter Plan of Treatment Not on filedocumented as of this encounter Visit Diagnoses Not on filedocumented in this encounter Additional Health Concerns Infection Onset Date Last Indicated Resolved Time MRSA-Contact IsolationComment: 0 04/26/2021 11:03 AM HOSPICE CARE CONSULTANT Infection 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
--- OUTSIDE RECORDS SUMMARY | 2022-02-12 13:49 | XMS_ITS | Encounter Summary ---
:1960 Author Organization [facility] Address [address] [place] [address] Care Team Providers Name Role Phone Unavailable Primary Care Provider Unavailable Encounter Details Date Type Department Care Team Description 06/30/2009 Admission H&P [facility] Cali Dang (Java Software Engineer) [facility] MD Danie Results [address] [place] [address] (Wo rk) Social History Tobacco Use Types Packs/Day Years Used Date Smoking Tobacco: Never Alcohol Use Standard Drinks/Week Comments Yes 0 (1 standard drink = 0.6 oz pure alcoho l) socially approx 5 drinks/wk Sex Assigned at Date Recorded Not on file documented as of this encounter Progress Notes Cali Dang - 07/03/2009 8:19 PM HEADING AND PRIMING TOOL SETTER FINAL CHIEF COMPLAINT: Fall. HISTORY OF PRESENT ILLNESS: Mr. Elijah Amador is a 48-year-old male with a history of alcohol abuse admitted through the ER for concerns about alcohol abuse and falling at home. The patient lives with a female significant other. Apparently she called paramedics when the patient fell going up the stairs. He denies any current pain or other symptoms related to the fall. Per our welder operator notes, breathalyzer at the scene revealed an alcohol level 0.14. Per EMS notes, vitals at the scene include a blood pressure 118/palp, heart rate 120, and saturating 97% on room air. The patient was brought into the ER for evaluation. ER workup included basic labs notable for creatinine of 2.28 and BUN of 42. White cell count was normal. Alcohol level 0.37. Head CT scan was unremarkable. The patient is being admitted to the hospitalist service for further care, given concerns about acute renal failure and dehydration. In regards to the patient's alcohol abuse history, he is currently attending Alcoholics Anonymous. He reports that he quit drinking for about 3 months but recently resumed drinking. He states he drinks 2 shots of alcohol a day, but I am not convinced of the validity of this comment. He states he drank much more in the past but has cut down significantly. He reports that stopping drinking is difficult for him, but is determined to try and do so. He does have several previous admissions to the hospital regarding alcohol abuse and acute renal failure. Most recently he was admitted 02/2009 when he wasquite ill and acidotic related to rhabdomyolysis from alcohol use issues. PAST MEDICAL HISTORY: 1. Hypertension. 2. Hyperlipidemia. 3. Alcohol abuse. 4. Previous stool culture positive for Clostridium difficile in 02/2009. 5. Aspiration pneumonia during admission 02/2009. 6. Admission 02/2009 for severe dehydration, acute renal failure, metabolic acidosis, rhabdomyolysis. The patient required several days of hemodialysis. It was felt that his symptoms were related to alcohol use issues and severe rhabdomyolysis with dehydration. 7. Previous GI bleed. 8. Previous hernia surgery, distant. CURRENT MEDICATIONS: 1. Lisinopril 20 mg daily. 2. Prilosec 40 mg daily. 3. Lipitor 20 mg daily. 4. Multivitamin. 5. Qeuk-vka-mxfyxig magnesium supplement. DRUG ALLERGIES: No known drug allergies. FAMILY HISTORY: Noncontributory. SOCIAL HISTORY: The patient lives with a female significant other for the past 16 years. He is currently unemployed. He denies smoking. Admits to alcohol use as mentioned above; he states he attends Alcoholics Anonymous. He has a history of a DWI twice in the past, but this is distant. REVIEW OF SYSTEMS: Please see HPI for details. Review of systems was negative for cardiovascular, respiratory, GI, renal, urinary, hematologic, integument, endocrine, musculoskeletal, neurologic and cognitive complaints besides that mentioned above. PHYSICAL EXAMINATION: VITAL SIGNS: Blood pressure currently 90/54, pulse 93, respirations 18, saturation 91% on room air.GENERAL: The patient appears nontoxic. He smells of alcohol. He was sleeping when I initially walkedin the room, but is easily awakened. He seems a bit cantankerous and gives very abrupt short answersto questions. HEENT: Head is atraumatic. Sclerae are white. Eyelids are normal. Conjunctivae are normal. Extraocular movements are intact. Neck is supple. No cervical or supraclavicular lymphadenopathy. Oral mucosa is dry. No oral lesions. HEART: Regular rate and rhythm. No murmurs. No lower extremityedema. LUNGS: Clear to auscultation bilaterally. No intercostal retractions. No conversational dyspnea. ABDOMEN: Nontender, nondistended, soft. No masses. No hepatosplenomegaly. EXTREMITIES: No edema. SKIN: Reveals no rashes. No jaundice. Skin is dry to touch. NEUROLOGIC: Cranial nerves II-XII are intact. Moves all extremities without problem, sensation is intact to light touch in upper and lower extremities bilaterally. Strength including chemist organic, biceps, triceps, dorsi and plantar flexion are all 5/5 bilaterally and symmetric. Sensation intact to light touch in the bilaterally. PSYCHIATRIC: The patient is awake and alert. He is able to answer questions fairly well, especially in light of his alcohol level currently. Affect seems a bit flat. LABORATORY DATA AND DIAGNOSTIC STUDIES: Creatinine 2.28. BUN 42. Potassium 5.1. Hemoglobin 12.4. White count is 5.1. Alcohol level 0.37. Head CT scan is unremarkable. Urine drug of abuse screen is pending. IMPRESSION AND PLAN: Mr. Elijah Amador is a 48-year-old male with a history of alcohol abuse, admitted through the emergency room for dehydration, acute renal failure, alcohol intoxication. 1. Alcohol intoxication with a history of alcohol abuse. Will administer daily banana bag, will order alcohol withdrawal protocol. Obviously the patient does not need withdrawal medications yet as he is still intoxicated, but there may be a need develop for this. We will have social work see the patient to assist with his alcohol use issues. I encouraged him to continue AA, which he is currently involved with.2. Acute renal failure. I suspect related to dehydration in the setting of alcohol abuse. Will administer normal saline 200 mL per hour for the next 5 hours, then 150 cc per hour thereafter to rehydrate. Recheck BMP in the morning. 3. Dehydration. Rehydrate as above. 4. Thrombocytopenia. I suspect related to his alcohol use. He does have a history of thrombocytopenia on previous labs as well. The patient is being admitted to observation status. I am hoping for discharge within the next day after rehydration. Electronically signed on 07/03/2009 20:18 by CALI DANG MD MT: [id number] Name: ELIJAH AMADOR Account: [id number] : 1960 Admitted: [id number] Document: [id number] ING AND PRIMING TOOL SETTER documented in this encounter Plan of Treatment Not on filedocumented as of this encounter Visit Diagnoses Not on filedocumented in this encounter Additional Health Concerns Infection Onset Date Last Indicated Resolved Time MRSA-Contact IsolationComment: 0 04/26/2021 11:03 AM HEADING AND PRIMING TOOL SETTER Infection 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
--- OUTSIDE RECORDS SUMMARY | 2022-02-12 13:49 | XMS_ITS | Encounter Summary ---
:1960 Author Organization [facility] Address [address] [place] [address] Care Team Providers Name Role Phone Unavailable Primary Care Provider Unavailable Encounter Details Date Type Department Care Team Description 03/29/2009 Historic Notes INTERFACED REPORT Interface, Transcript MD valarie Social History Tobacco Use Types Packs/Day Years Used Date Smoking Tobacco: Never Alcohol Use Standard Drinks/Week Comments Yes 0 (1 standard drink = 0.6 oz pure alcoho l) socially approx 5 drinks/wk Sex Assigned at Date Recorded Not on file documented as of this encounter Progress Notes Interface, Chicken Hanger - 07/10/2010 2:34 PM CDT Discharge Summary - Reason for Discharge All goals and outcomes met, no further needs identified - Progress toward Goals met achieving short term goals/termite technician goals - Comments INSTRUCTOR DANCING goals to be met by 03/26/09. 1. MET 03-20-09: Patient will tolerate a Dysphagia Diet Level 3 (Advanced) with thin liquids without overt s/sx of aspiration. 2. Patient will tolerate trials of upgraded solids and/or trial tray of Regular diet. MET 03/21/09 3. Patient will follow safe swallow strategies, given mod cues, with 90% accuracy to increase safety with po. MET 03/21/09 - Continued Therapy No Recommended Signatures NAHUN KAUR (Speech Pathologist)[Signed 11:08] Authored: Discharge Summary documented in this encounter Plan of Treatment Not on filedocumented as of this encounter Visit Diagnoses Not on filedocumented in this encounter Additional Health Concerns Infection Onset Date Last Indicated Resolved Time MRSA-Contact IsolationComment: 0 04/26/2021 11:03 AM PASTER OPERATOR Infection 

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
--- OUTSIDE RECORDS SUMMARY | 2022-02-12 13:49 | XMS_ITS | Encounter Summary ---
:1960 Author Organization [facility] Address [address] [place] [address] Care Team Providers Name Role Phone Unavailable Primary Care Provider Unavailable Encounter Details Date Type Department Care Team Description 03/19/2009 Historic Notes INTERFACED REPORT Deep Alston MD [address] [place], [place] [address] (Wo rk) Social History Tobacco Use Types Packs/Day Years Used Date Smoking Tobacco: Never Alcohol Use Standard Drinks/Week Comments Yes 0 (1 standard drink = 0.6 oz pure alcoho l) socially approx 5 drinks/wk Sex Assigned at Date Recorded Not on file documented as of this encounter Progress Notes Liam Alston - 07/10/2010 3:11 PM CDT Subjective: Tolerating extubation. Thirsty and hungry. Still a bit confused. Fevers down/resolved. No new problems. Last 24 hours Vitals signs, imaging done, laboratory results were reviewed by me in [facility]. AFebrile! GENERAL: No distress, seems comfortable PSYCH: alert but confused. Oriented to person, hospital, year. HEENT: PERRLA. Normal conjunctiva, nasal mucosa. ET tube in place NECK: Supple, no neck vein distention, adenopathy or bruits, normal thyroid. HEART: Normal S1, S2 with no murmur, no pericardial rub, S3 or S4. LUNGS: Few right lung field coarse breath sounds but better, normal Respiratory effort. ABDOMEN: Soft, no hepatosplenomegaly, normal bowel sounds. EXTREMITIES: No pedal edema, +2 pulses bilateral and equal. SKIN: Dry to touch, No rash, wound or ulceration Assessement and Plan: 1. Fevers. Resolved. Unclear cause. Consider due to C. diff, pneumonia (although never clearly identified by CXR), or line infection. Change flagyl to PO once able and continue until c diff culture is back (toxin assay was equivical, diarrhea has stoopped) or consider just completing a 10 day course. Continue zosyn. Once able, would change to Augmentin and probably complete a 7 day course. Will have line removed once able to take meds orally. 2. Acute renal failure. Likely secondary to dehydration and rhabdomyolysis. Improved with dialysis initially, improvement continues. 3. Severe metabolic acidosis with elevated anion gap. Resolved. 4. Respiratory failure due to above. Was on vent, now extubated. Speech/swallow eval today. 5. Afib with cardioversion in ED. No [...] (nare swab positive). Precautions per protocol. 10. Encephalopathy. LIkely metabolic due to ARF and etoh withdrawal which has resolved. Monitor mental status- still a bit fuzzy today. 11. Diarrhea. Improved, resolved. On flagyl. Possibly due to c.diff (toxin assay was equivocal, culture pending). Consider completing 10 day course of flagyl. 12. H/o gout. 13. H/o hypercholesterolemia. 14. H/o hypertension. 15. H/o previous GI bleed. On PPI 16. Deconditioning. PT/OT 17. Disposition. Can likely transfer to floor later in day. [Signature] Author: LIAM ALSTON) [Signed 11:10] documented in this encounter Plan of Treatment Not on filedocumented as of this encounter Visit Diagnoses Not on filedocumented in this encounter Additional Health Concerns Infection Onset Date Last Indicated Resolved Time MRSA-Contact IsolationComment: 0 04/26/2021 11:03 AM HOSPITAL WARD CLERK Infection 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
--- OUTSIDE RECORDS SUMMARY | 2022-02-12 13:49 | XMS_ITS | Encounter Summary ---
:1960 Author Organization [facility] Address [address] [place] [address] Care Team Providers Name Role Phone Unavailable Primary Care Provider Unavailable Encounter Details Date Type Department Care Team Description 07/01/2009 Historic Notes INTERFACED REPORT Cali Dang MD [address] [place], [place] [address] (Wo rk) Social History Tobacco Use Types Packs/Day Years Used Date Smoking Tobacco: Never Alcohol Use Standard Drinks/Week Comments Yes 0 (1 standard drink = 0.6 oz pure alcoho l) socially approx 5 drinks/wk Sex Assigned at Date Recorded Not on file documented as of this encounter Progress Notes Cali Dang - 07/10/2010 8:47 AM CDT - developed withdrawal sx overnight, requiring intermittent ativan dosing prn per withdrawal protocol. confused this AM. nursing reports pt very confused overnight, requiring multiple doses of ativan. Last 24 hours Vitals signs,imaging,microbiology;laboratory results were reviewed by me in [facility] Tm 100.8, persistent LGF. tachycardic 120s GENERAL: Comfortable. PSYCH: obviously confused, but is able to correctly state year, president, and location ([place]) HEART: Normal S1, S2 with no edema. LUNGS: Clear to auscultation, normal Respiratory effort. ABDOMEN: Soft, no hepatosplenomegaly, normal bowel sounds. SKIN: Dry to touch, No rash. IMPRESSION AND PLAN: Mr. Juan Pablo Brown [...] if no improvement in next 1-2 days, and if plt count remains stable 6. fever - ? withdrawal related. check bld cx, cxr, ua/uc 7. tachycardia - likely sinus tach secondary to withdrawal. check ECG - may need to go to ICU for nursing issues or if sx worsen - will switch to inpatient status Addendum Section 10:53 Entered By: CALI DANG - nursing reports pt become difficult to manage on floor given amount of care he is requiring. they are administering ativan q15 min at this time. needs ICU care. d/w nursing supervisor gear repair; ICU is full, but they will transfer out a patient to tele to accomodate. when bed available, tx to ICU. - checked LFTs - marked abnormalities noted. likely etoh hepatitis/possible component of cirrhosis. check abd us. check INR [Signature] Author: CALI DANG) [Signed 10:55] documented in this encounter Plan of Treatment Not on filedocumented as of this encounter Visit Diagnoses Not on filedocumented in this encounter Additional Health Concerns Infection Onset Date Last Indicated Resolved Time MRSA-Contact IsolationComment: 0 04/26/2021 11:03 AM COMMUNICATIONS ASSOCIATE Infection 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
--- OUTSIDE RECORDS SUMMARY | 2022-02-12 13:49 | XMS_ITS | Encounter Summary ---
:1960 Author Organization [facility] Address [address] [place] [address] Care Team Providers Name Role Phone Unavailable Primary Care Provider Unavailable Encounter Details Date Type Department Care Team Description 06/30/2009 Results Only [facility] Rina Shin MD Hospital Results EMERGENCY PHYSI [facility] [address] [place], [place] [address] (Wo rk) Social History [...] Name Priority Date/Time Associated Diagnosis Comme nts HC CT HEAD WO Routine 06/30/2009 11:31 AM Results for this CONTRAST PUTTY TINTER MAKER procedure are i n the results section. documented in this encounter Results CT SCAN HEAD/BRAIN (06/30/2009 11:31 AM PUTTY TINTER MAKER) Anatomical Region Laterality Modality Other Specimen (Source) Anatomical Collection Method Collection Time Re ceived Time Location / / Volume Laterality 06/30/2009 11:31 AM PUTTY TINTER MAKER Impressions 07/01/2009 12:[address] HEAD WITHOUT CONTRAST June 30, 2009 a t 1131 hours HISTORY: Fall. Trauma. TECHNIQUE: Axial images were obtained th rough the brain without contrast. COMPARISON: 07/15/2008. FINDINGS: There is some mild cerebral at rophy. The brain parenchyma is otherwise normal. There is no evidence f or intracranial hemorrhage, mass effect, acute infarct, or skull fra cture. IMPRESSION: Cerebral atrophy. No evidenc e for intracranial hemorrhage or any acute process. Rina Shin MD SPECIAL IMAGING STUDIES documented in this encounter Visit Diagnoses Not on filedocumented in this encounter Additional Health Concerns Infection Onset Date Last Indicated Resolved Time MRSA-Contact IsolationComment: 0 04/26/2021 11:03 AM PUTTY TINTER MAKER Infection 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
--- OUTSIDE RECORDS SUMMARY | 2022-02-12 13:49 | XMS_ITS | Encounter Summary ---
:1960 Author Organization [facility] Address [address] [place] [address] Care Team Providers Name Role Phone Unavailable Primary Care Provider Unavailable Encounter Details Date Type Department Care Team Description 07/04/2009 Historic Results [facility] Sharifa Barr MD Hospitalists [address] [facility] [address] [place] [address] [place], [place] [phone] (Wo rk) [address] [phone] Social History Tobacco Use Types Packs/Day Years Used Date Smoking Tobacco: Never Alcohol Use Standard Drinks/Week Comments Yes 0 (1 standard drink = 0.6 oz pure alcoho l) socially approx 5 drinks/wk Sex Assigned at Date Recorded Not on file documented as of this encounter Plan of Treatment Not on filedocumented as of this encounter Procedures Procedure Name Priority Date/Time Associated Comments Diagnosis ROUTINE UA WITH Routine 07/04/2009 4:15 PM Result s for this MICROSCOPIC LENS FINISHER procedure are i n the results section. documented in this encounter Results (ABNORMAL) Routine UA with microscopic (07/04/2009 4:15 PM LENS FINISHER) Component Value Ref Test Analysis Performed At [facility] Range Method Time Signature Source Unspecified MISYS Urine Color Urine Yellow MISYS Appearance Urine Clear MISYS Glucose Urine Negative NEG MISYS mg/dL Bilirubin Urine Negative NEG MISYS Ketones Urine Negative NEG MISYS mg/dL Specific [place] 1.005 1.003 - MISYS Urine 1.035 Blood Urine Small (A) NEG MISYS pH Urine 6.0 5.0 - MISYS 7.0 pH Protein Albumin Negative NEG MISYS Urine mg/dL Urobilinogen Normal 0.0 - MISYS mg/dL 2.0 mg/dL Nitrite Urine Negative NEG MISYS Leukocyte Negative NEG MISYS Esterase Urine WBC Urine 1 0 - 2 MISYS /HPF RBC Urine 0 0 - 2 MISYS /HPF Bacteria Urine Few (A) NEG /HPF MISYS Specimen Anatomical Collection Method Collection Time Receive d Time (Source) Location / / Volume Laterality 07/04/2009 4:15 PM 0 9:33 LENS FINISHER AM LENS FINISHER Sharifa Barr MD LAB - URINE ORDERABLES Performing Organization Address City/State/ZIP Code Phon e Number MISYS documented in this encounter Visit Diagnoses Not on filedocumented in this encounter Additional Health Concerns Infection Onset Date Last Indicated Resolved Time MRSA-Contact IsolationComment: 0 04/26/2021 11:03 AM LENS FINISHER Infection 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
--- OUTSIDE RECORDS SUMMARY | 2022-02-12 13:49 | XMS_ITS | Encounter Summary ---
:1960 Author Organization [place] [facility] Address [address] [place] [id number] Care Team Providers Name Role Phone Unavailable Primary Care Provider Unavailable Encounter Details Date Type Department Care Team Description 03/19/2009 Historic Notes INTERFACED REPORT Bill Palomares, MACHINIST [facility] [address] [place], [place] [address] Social History Tobacco Use Types Packs/Day Years Used Date Smoking Tobacco: Never Alcohol Use Standard Drinks/Week Comments Yes 0 (1 standard drink = 0.6 oz pure alcoho l) socially approx 5 drinks/wk Sex Assigned at Date Recorded Not on file documented as of this encounter Progress Notes Bill Palomares, DEVYN - 07/10/2010 3:11 PM CDT General Information - Patient Profile See Profile for full history and prior level of Review: function, Functional Assessment Score (FAS): 7 = No Impairment 6 = Minimal Impairment 5 = Mild Impairment 4 = Mild - Moderate Impairment 3 = Moderate Impairment 2 = Moderate - Severe Impairment 1 = Severe Impairment 0 = Not Tested (See Comment) - Patient/Family Goals: Unable to state - Swallowing Bedside swallow evaluation Evaluation: - Comments: extubated 03/18/09 in the AM Oral Musculature Evaluation - Oral Musculature generally intact - Structural none present Abnormalities - Dentition present and adequate - Mucosal Quality dry - Mandibular Strength intact and Mobility - Labial Strength and WFL Mobility - Lingual Strength and impaired protrusion; impaired anterior Mobility elevation; impaired left lateral movement; impaired right lateral movement; generalized weakness - Buccal Strength and intact Mobility - Volitional Abilities cough; throat clear; swallow Clinical Swallow Evaluation - Feeding Assistance frequent cues/help required, assist to raise cup to lips Clinical Swallow Evaluation: Thin Liquid Texture Trial - Mode of Presentation cup; spoon; self fed; fed by clinician - Volume of Liquid or 1 teaspoon; small sips Food Presented - Oral Phase WFL - Pharyngeal Phase of impaired; reduction in laryngeal movement; mild Swallow delay - Diagnostic Statement FAS 5 Clinical Swallow Evaluation: Puree-Thick Texture Trial - Mode of Presentation spoon; fed by clinician - Volume of Liquid or 1 teaspoon Food Presented - Oral Phase WFL - Pharyngeal Phase of impaired; reduction in laryngeal movement Swallow - Diagnostic Statement FAS 5 Clinical Swallow Evaluation: Semisolid Texture Trial - Mode of Presentation fed by clinician - Volume of Liquid or 1 teaspoon Food Presented - Oral Phase WFL - Pharyngeal Phase of reduction in laryngeal movement; impaired Swallow - Diagnostic Statement FAS 5 Clinical Swallow Evaluation: Solid Food - Mode of Presentation self fed - Volume of Liquid or small bite Food Presented - Oral Phase slow mastication - Pharyngeal Phase of impaired; reduction in laryngeal movement Swallow - Diagnostic Statement FAS 5 Swallowing Compensations - Swallowing Pacing; Reduce amounts Compensations - Results no difficulties noted Impression - Skilled Criteria for Yes Therapy Intervention Met - Assessment Overall mild oral-pharyngeal dysphagia characterized by generalized weakness. Recommend Dysphagia Diet Level 3 (Advanced) with thin liquids. Assist with meals PRN. General swallow precautions. No straw. - Functional Assessment 5= mild impairment Scale (FAS) - Swallowing no straw; small bites/sips; sit upright when Precautions/Recommen_ eating,remain upright for 30 min after meal dations - Rehabilitation Good, to achieve stated therapy goals Potential - Demonstrates need for OT; PT referral to another service - Predicted Duration of One week (by 03/26/09) Therapy - Predicted Frequency QD of Therapy - Discharge Destination uncertain at this time ?rehab - Risks and Benefits of Yes Treatment have been explained. - Patient, family Yes and/or staff in agreement with Plan of Care - Diagnostic Statement Dysphagia Outcome and Severity Score (KRISTA) rating: Level 5 - Mild dysphagia (Distant supervision, may need one diet consistency restricted) BILL Slater (Therapist)[Signed 11:16] Authored: General Information, Oral Musculature Evaluation, Clinical Swallow Evaluation, Clinical Swallow Evaluation: Thin Liquid Texture Trial, Clinical Swallow Evaluation: Puree-Thick Texture Trial, Clinical Swallow Evaluation: Semisolid Texture Trial, Clinical Swallow Evaluation: Solid Food, Swallowing Compensations, Impression documented in this encounter Plan of Treatment Not on filedocumented as of this encounter Visit Diagnoses Not on filedocumented in this encounter Additional Health Concerns Infection Onset Date Last Indicated Resolved Time MRSA-Contact IsolationComment: 0 04/26/2021 11:03 AM TERRA COTTA ROOFER Infection 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
--- OUTSIDE RECORDS SUMMARY | 2022-02-12 13:49 | XMS_ITS | Encounter Summary ---
:1960 Author Organization [facility] Address [address] [place] [address] Care Team Providers Name Role Phone Unavailable Primary Care Provider Unavailable Encounter Details Date Type Department Care Team Description 06/30/2009 Historic Results INTERFACED REPORT Rina Shin MD [facility] [address] [place], [place] [address] (Wo rk) Social History [...] Procedure Name Priority Date/Time Associated Comments Diagnosis DRUG ABUSE SCREEN 77 STAT 06/30/2009 1:15 PM R esults for this URINE (FL, RH, SH) PERFORMANCE MANAGER procedure are in the results section. CBC WITH PLATELETS & STAT 06/30/2009 11:10 Res ults for this DIFFERENTIAL AM PERFORMANCE MANAGER procedure are i n the results section. ETHYL ALCOHOL LEVEL STAT 06/30/2009 11:10 Resu lts for this AM PERFORMANCE MANAGER procedure are i n the results section. BASIC METABOLIC PANEL STAT 06/30/2009 11:10 Re sults for this AM PERFORMANCE MANAGER procedure are i n the results section. documented in this encounter Results Drug abuse screen 77 urine (FL, RH, SH) (06/30/2009 1:15 PM PERFORMANCE MANAGER) [facility] Method Time Signature Amphetamine Qual Negative NEG MISYS Urine Comment: Cutoff for a negative amphetam ine is 500 ng/mL or less. Opiates Qualitative Urine Negative NEG MISY S Comment: Cutoff for a negative opiate i s 300 ng/mL or less. PCP Qual Urine Negative NEG MISYS Comment: Cutoff for a negative PCP is 2 5 ng/mL or less. Benzodiazepine Qual Urine Negative NEG MISY S Comment: Cutoff for a negative benzodia zepine is 200 ng/mL or less. Barbiturates Qual Urine Negative NEG MISYS Comment: Cutoff for a negative barbitur ate is 200 ng/mL or less. Cocaine Qual Urine Negative NEG MISYS Comment: Cutoff for a negative cocaine is 300 ng/mL or less. Cannabinoids Qual Urine Negative NEG MISYS Comment: Cutoff for a negative cannabin oid is 50 ng/mL or less. Specimen Anatomical Collection Method Collection Time Receive d Time (Source) Location / / Volume Laterality 06/30/2009 1:15 PM 0 PERFORMANCE MANAGER 10:49 AM PERFORMANCE MANAGER Rina Shin MD LAB - URINE ORDERABLES Performing Organization Address City/State/ZIP Code Phon e Number MISYS (ABNORMAL) CBC with platelets differential (06/30/2009 11:10 AM PERFORMANCE MANAGER) [facility] gist Method Time Signature MCV 94 78 - 100 MISYS fl MCH 31.6 26.5 - MISYS 33.0 pg MCHC 33.8 31.5 - MISYS 36.5 g/dL RDW 15.0 10.0 - MISYS 15.0 % WBC 5.1 4.0 - MISYS 11.0 10e9/L RBC Count 3.92 (L) 4.4 - 5.9 MISYS 10e12/L Hemoglobin 12.4 (L) 13.3 - MISYS 17.7 g/dL Hematocrit 36.7 (L) 40.0 - MISYS 53.0 % % Neutrophils 67 40 - 75 % MISYS % Lymphocytes 19 (L) 20 - 48 % MISYS % Monocytes 13 (H) 0 - 12 % MISYS % Eosinophils 0 0 - 6 % MISYS % Basophils 1 0 - 2 % MISYS Platelet Count 89 (L) 150 - 450 MISYS 10e9/L Absolute 3.4 1.6 - 8.3 MISYS Neutrophil 10e9/L Absolute 1.0 0.8 - 5.3 MISYS Lymphocytes 10e9/L Absolute 0.7 0.0 - 1.3 MISYS Monocytes 10e9/L Absolute 0.0 0.0 - 0.7 MISYS Eosinophils 10e9/L Absolute 0.0 0.0 - 0.2 MISYS Basophils 10e9/L Diff Method Automated MISYS Method Specimen Anatomical Collection Method Collection Time Receive d Time (Source) Location / / Volume Laterality 06/30/2009 11:10 06/30/2009 AM PERFORMANCE MANAGER 10:49 AM PERFORMANCE MANAGER Rina Shin MD LAB - BLOOD ORDERABLES Performing Organization Address City/State/ZIP Code Phon e Number MISYS (ABNORMAL) Basic metabolic panel (06/30/2009 11:10 AM PERFORMANCE MANAGER) P athologist Signature Sodium 135 133 - 144 MISYS mmol/L Potassium 5.1 3.4 - 5.3 MISYS mmol/L Chloride 92 (L) 94 - 109 MISYS mmol/L Comment: Reviewed, acceptable Carbon Dioxide 17 (L) 20 - 32 mmol/L MISYS Glucose 122 (H) 60 - 99 mg/dL MISYS Urea Nitrogen 42 (H) 5 - 24 mg/dL MISYS Creatinine 2.28 (H) 0.66 - 1.25 mg/dL MISYS Comment: New IDMS-traceable calibration beginning 08/23/07 GFR Estimate 31 (L) >60 mL/min/1.7m2 MISYS GFR Estimate If Black 38 (L) >60 mL/min/1.7m2 M ISYS Calcium 8.9 8.5 - 10.4 mg/dL MISYS Anion Gap 27 (H) 6 - 17 mmol/L MISYS Specimen Anatomical Collection Method Collection Time Receive d Time (Source) Location / / Volume Laterality 06/30/2009 11:10 06/30/2009 AM PERFORMANCE MANAGER 10:49 AM PERFORMANCE MANAGER Rina Shin MD LAB - BLOOD ORDERABLES Performing Organization Address City/State/ZIP Code Phon e Number MISYS (ABNORMAL) Alcohol ethyl (06/30/2009 11:10 AM PERFORMANCE MANAGER) P athologist Signature Ethanol g/dL 0.37 (HH) 0.01 g/dL MISYS Comment: Specimen run with a dilution Critical Value called to and read back by KAPIL) ON 06.30.09 AT 1142 BY MARY Specimen Anatomical Collection Method Collection Time Receive d Time (Source) Location / / Volume Laterality 06/30/2009 11:10 06/30/2009 AM PERFORMANCE MANAGER 10:49 AM PERFORMANCE MANAGER Rina Shin MD LAB - BLOOD ORDERABLES Performing Organization Address City/State/ZIP Code Phon e Number MISYS documented in this encounter Visit Diagnoses Not on filedocumented in this encounter Additional Health Concerns Infection Onset Date Last Indicated Resolved Time MRSA-Contact IsolationComment: 0 04/26/2021 11:03 AM PERFORMANCE MANAGER Infection 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
--- OUTSIDE RECORDS SUMMARY | 2022-02-12 13:49 | XMS_ITS | Encounter Summary ---
:1960 Author Organization [facility] Address [address] [place] [address] Care Team Providers Name Role Phone Unavailable Primary Care Provider Unavailable Encounter Details Date Type Department Care Team Description 06/30/2009 Historic Notes INTERFACED REPORT Interface, Transcript MD valarie Social History Tobacco Use Types Packs/Day Years Used Date Smoking Tobacco: Never Alcohol Use Standard Drinks/Week Comments Yes 0 (1 standard drink = 0.6 oz pure alcoho l) socially approx 5 drinks/wk Sex Assigned at Date Recorded Not on file documented as of this encounter Progress Notes Interface, J2Ee Engineer - 07/10/2010 8:49 AM CDT General Information - How to be Addressed navarro - Patient Belongings clothing - electronic parts salesperson #1: Shalonda - Relationship to girlfriend patient #1: - Contact Location: Home Local - Phone 1: [phone] - electronic parts salesperson #2: Chantal Woods - Relationship to sister patient #2: - Contact Location: Home Local - Phone 1: [phone] - Cell - electronic parts salesperson #3: Perlita & elida - Relationship to mom & dad patient #3: - Phone 1: [phone] - Patient's spoken language; Eritrean or Bilingual communication style Advance Directive - Do you have an No Advanced Health Care Directive? - Can patient name a No. The Patient is unable/chooses not to. Surrogate Decision Maker? (Not legally binding) - Would you like more No information about Advanced Health Care Directives? Health and Illness - Reason for Admission fell at home and gf called 911 as Stated by Patient Medication Information - Medications Brought no to Hospital - Medication none - Medication Pumps none Role Relationships/Living Environment - Significant significant other Relationships - Limitations on none Visitors/Phone Calls/TV - Lives With significant other - Living Environment Lives with s.o. in 2 level home. Has walk in Comment shower on main level and tub/shower on 2nd level. Substance Use - Tobacco Use None. - Caffeine Use No - Alcohol Use current alcohol use - Alcohol Type whiskey - Duration of Alcohol quit drinking for 2 months after last admit in Use (mo/yr) Mar 02 now in AA - Alcohol Frequency daily - Alcohol Amount 1-2 drinks, 2 shots per day - History of street No drug/inhalant/ medication abuse Review of Systems - Neurological none Conditions/Symptoms - Pain: 0 Comfort/Acceptable Pain Level (0-10) - Chronic Pain no - Head none Conditions/Symptoms - Eye none Conditions/Symptoms - Ear none Conditions/Symptoms - Cardiac high cholesterol; hypertension Conditions/Symptoms - Peripheral/Neurovasc_ none ular Conditions/Symptoms - Respiratory none Conditions/Symptoms - Nutrition Risk Screen No risk indicators present - GI none Conditions/Symptoms - Last Bowel Movement (MMM-dd-yy) - renal insufficiency per chart Conditions/Symptoms - Musculoskeletal none Conditions/Symptoms - Activity/Exercise/Se_ Reports self as independent with all ADL's and lf-Care Comment IADL's including driving, shopping, managing medications, finances. Reports he does not work and s.o. does not work. - Ambulation 0 - Independent with ambulation - Transferring 0 - Independent with transfers - Toileting 0- Independent with toileting - Bathing 0- Independent with bathing - Dressing 0- Independent with dressing - Eating 0- Independent with eating - Swallowing no swallowing issues reported - Cognition no cognition issues reported - Communication/speech no speech or language problems - Fall history within No history of falls last six months - Which of the above none functional risks had a recent onset or change? - Skin none reported Conditions/Symptoms - Endocrine none Conditions/Symptoms - Hematological none Conditions/Symptoms - Immune /Infections none - Influenza vaccine has not received for this flu season - Influenza vaccine patient has long-term health problems indications (check all that apply) - Influenza Vaccine patient/guardian refuses Contraindications (check all that apply) - Pneumococcal Vaccine never immunized - Pneumococcal Vaccine patient has long-term health problems Indications - offer year round (Check all that apply) - Pneumococcal Vaccine patient refuses Contraindications (check all that apply) - Oncology none Conditions/Symptoms - Mental Health none Conditions/Symptoms Skin Inspection - Skin Inspection: WDL: color consistent w/ ethnicity; no abnormality in temperature, moisture, turgor, integrity Coping Stress/Abuse - Major none Change/Loss/Stressor - QUESTION TO PATIENT: No Has a member of your family or a partner(now or in the past) intimidated, hurt, manipulated, or controlled you in any way? - NURSE OBSERVATION: Is No there reason to believe there has been maltreatment of a vulnerable adult (ie. Physical/Sexual/Emot_ ioanl abuse, self neglect, lack of adequate food, senior care, medical care, or financial exploitation)? Values/Beliefs/Spiritual Care - C: Community: In no thank you support of your spiritual health, is there someone we may contact for you? (identify all that apply) Learning Assessment - Factors Influencing acuteness of illness Readiness to Learn - Factors that Impact none Ability to Learn - Learning Preferences individual instruction - Cultural none Considerations - Developmental none Considerations - Yazidi none Considerations Mutuality/Individual Preferences - What information nothing would help us give you more personalized care? Signatures Scarlett Adams (OT)[Signed 13:20] Authored: Role Relationships/Living Environment, Review of Systems GELACIO MARTINEZ (RN)[Signed 14:53] Authored: General Information, Advance Directive, Health and Illness, Medication Information, Role Relationships/Living Environment, Substance Use, Review of Systems, Skin Inspection, Coping Stress/Abuse, Values/Beliefs/Spiritual Care, Learning Assessment, Mutuality/Individual Preferences documented in this encounter Plan of Treatment Not on filedocumented as of this encounter Visit Diagnoses Not on filedocumented in this encounter Additional Health Concerns Infection Onset Date Last Indicated Resolved Time MRSA-Contact IsolationComment: 0 04/26/2021 11:03 AM ANNUAL GREENHOUSE MANAGER Infection 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
--- OUTSIDE RECORDS SUMMARY | 2022-02-12 13:49 | XMS_ITS | Encounter Summary ---
:1960 Author Organization [facility] Address [address] [place] [address] Care Team Providers Name Role Phone Unavailable Primary Care Provider Unavailable Encounter Details Date Type Department Care Team Description 07/01/2009 Historic Notes INTERFACED REPORT Interface, Transcript onMD Social History Tobacco Use Types Packs/Day Years Used Date Smoking Tobacco: Never Alcohol Use Standard Drinks/Week Comments Yes 0 (1 standard drink = 0.6 oz pure alcoho l) socially approx 5 drinks/wk Sex Assigned at Date Recorded Not on file documented as of this encounter Progress Notes Interface, Branch Employment Coordinator - 07/10/2010 8:46 AM CDT Progress Note - :: Pt scores etoh scores 7-11. medicated with 6 iv and po 1 mg ativan. Inc of urine and stool, rondon palced. Attempts to climb out of bed. See order to transfer to ICU T max 100.1, [id number]'s. Started Metroprolol IV. Transfering to unit at 1230 Signatures SHRUTI BREWER (OZZIE)[Signed 12:09] Authored: Progress Note Interface, Branch Employment Coordinator - 07/10/2010 8:45 AM CDT Call from pt's sister this a.m. Went into pt's room to ask permission to speak with her and he answered yes. Sister relayed multiple concerns about pt's ETOH. She said he lives with a significant other, but can't return home with her until he is sober. She said pt has 4 years of heavy drinking and she doubts he will go willingly into [facility]. She said that he drinks 24/7 and is already passed out on the couch in the morning after getting up during the night to drink. She said he was terminated from his job due to ETOH a year ago. Noted falls at home. Noted .37 BAL. Aware that pt refused to f/u with treatment recommendations from [facility] counselor 06/30 and that he has refused to f/u with a Rule 25 subsequently. Spoke with sister about Rule 25 procedures and gave her the number for prepetition screening. Aware pt has since transferred to ICU with withdrawal so have not interviewed him. A: Unable to ascertain willingness for treatment due to withdrawal. Pt will be unable to go directly from the hospital to treatment without a Rule 25 due to lack of insurance. Multiple health, financial and social consequences from his addiction. P: Will interview pt as able. [Signature] Author: Fina Mayfield ([facility]) [Signed 13:32] documented in this encounter Plan of Treatment Not on filedocumented as of this encounter Visit Diagnoses Not on filedocumented in this encounter Additional Health Concerns Infection Onset Date Last Indicated Resolved Time MRSA-Contact IsolationComment: 0 04/26/2021 11:03 AM ASP NET DEVELOPER Infection 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
--- OUTSIDE RECORDS SUMMARY | 2022-02-12 13:49 | XMS_ITS | Encounter Summary ---
:1960 Author Organization [facility] Address [address] [place] [address] Care Team Providers Name Role Phone Unavailable Primary Care Provider Unavailable Encounter Details Date Type Department Care Team Description 03/20/2009 Historic Notes INTERFACED REPORT Deep Alston MD [address] [place], [place] [address] (Wo rk) Social History Tobacco Use Types Packs/Day Years Used Date Smoking Tobacco: Never Alcohol Use Standard Drinks/Week Comments Yes 0 (1 standard drink = 0.6 oz pure alcoho l) socially approx 5 drinks/wk Sex Assigned at Date Recorded Not on file documented as of this encounter Progress Notes Liam Alston - 07/10/2010 3:08 PM CDT Subjective: More alert and interactive today. Hungry. Diet advanced. Wants rondon and central line out. Still some diarrhea. Last 24 hours Vitals signs, imaging done, laboratory results were reviewed by me in [facility]. low grade temp 100 GENERAL: No distress, seems comfortable PSYCH: alert confusion resolving. Oriented to person, place, time HEENT: PERRLA. Normal conjunctiva, nasal mucosa. ET [...] clearly identified by CXR), or line infection. On oral flagyl pending c diff culture. Likely complete 10 day course in total (day 4 or 5 now). On Augmentin for possible aspiration pneumonia- although none seen on CXR. Would complete a 7 day course of augmentin. Remove central line today. Monitor. 2. Acute renal failure. Likely secondary to dehydration and rhabdomyolysis. Improvement continues. D/c IVF . AM BMP. 3. Severe metabolic acidosis with elevated anion gap. Resolved. 4. Respiratory failure due to above. Was on vent, now extubated. Doing pretty well. 5. Afib with cardioversion in ED. No recurrence to this point. 6. Troponin elevation. Likely demand ischemia/non-q wave mi related to all of the above. No further w/u at this time. Consider eventual stress test at some point- likely as outpatient once closer to baseline. 7. ETOH dependence with acute withdrawal. Stable. Chem dep consult pending. 8. FEN. Diet advanced to dysphageia level 3 with thin liquids today. 9. MRSA colonization (nare swab positive). Precautions per protocol. 10. Encephalopathy. LIkely metabolic due to ARF and etoh withdrawal which has resolved. Monitor mental status- better today. 11. Diarrhea. A little today. On flagyl. Possibly due to c.diff (toxin assay was equivocal, culture pending). Consider completing 10 day course of flagyl. 12. H/o gout. 13. H/o hypercholesterolemia. 14. H/o hypertension. 15. H/o previous GI bleed. On PPI 16. Deconditioning. PT/OT 17. Disposition. Getting close to discharge. Diet/dysphagia is one issue. Chem dep eval and plan is another. Deconditioning resolving. 2 days? [Signature] Author: LIAM ALSTON) [Signed 14:48] documented in this encounter Plan of Treatment Not on filedocumented as of this encounter Visit Diagnoses Not on filedocumented in this encounter Additional Health Concerns Infection Onset Date Last Indicated Resolved Time MRSA-Contact IsolationComment: 0 04/26/2021 11:03 AM PROPOSITION PLAYER Infection 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
--- OUTSIDE RECORDS SUMMARY | 2022-02-12 13:49 | XMS_ITS | Encounter Summary ---
:1960 Author Organization [facility] Address [address] [place] [address] Care Team Providers Name Role Phone Unavailable Primary Care Provider Unavailable Encounter Details Date Type Department Care Team Description 07/01/2009 Historic Results INTERFACED REPORT Interface, Italo tai MD Social History Tobacco Use Types Packs/Day Years [...] Name Priority Date/Time Associated Diagnosis Comme nts EKG 12 LEAD Routine 07/01/2009 9:22 AM Results f or this MARBLE WORKER procedure are i n the results section . documented in this encounter Results EKG 12 LEAD (07/01/2009 9:22 AM MARBLE WORKER) Component Value Ref Range Test Analysis Performed Pathologis t Method Time At Signature Ventricular Rate 130 BPM RADIOLOGY RESULTS Atrial Rate 130 BPM RADIOLOGY RESULTS NC Interval 124 ms RADIOLOGY RESULTS QRS Duration 86 ms RADIOLOGY RESULTS QT 296 ms RADIOLOGY RESULTS QTc 435 ms RADIOLOGY RESULTS P [place] 20 degrees RADIOLOGY RESULTS R AXIS -2 degrees RADIOLOGY RESULTS T [place] 25 degrees RADIOLOGY RESULTS Interpretation Sinus tachycardia RADIOLO GY ECG Possible Inferior infarct , age undetermined RESULTS Abnormal ECG When compared with ECG of 14-MAR-2009 02:10, No significant change was found Unconfirmed report - interpretation of this ECG is compute r generated - see medical record fo r final interpretation Specimen Anatomical Collection Method Collection Time Receive d Time (Source) Location / / Volume Laterality 07/01/2009 9:22 AM 0 7:31 MARBLE WORKER AM MARBLE WORKER Transcripton Interface ECG ORDERABLES Performing Organization Address City/State/ZIP Code Phon e Number RADIOLOGY RESULTS documented in this encounter Visit Diagnoses Not on filedocumented in this encounter Additional Health Concerns Infection Onset Date Last Indicated Resolved Time MRSA-Contact IsolationComment: 0 04/26/2021 11:03 AM MARBLE WORKER Infection 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
--- OUTSIDE RECORDS SUMMARY | 2022-02-12 13:50 | XMS_ITS | Encounter Summary ---
:1960 Author Organization [facility] Address [address] [facility] [place] [address] Care Team Providers Name Role Phone Unavailable Primary Care Provider Unavailable Encounter Details Date Type Department Care Team Description 03/14/2009 Operative Report [facility] Jamaal Tyler (Superintendent Radio Communications) [facility] MD Danie Results [facility] [address] [facility] [address] [place] [phone] (Wo rk) Social History Tobacco Use Types Packs/Day Years Used Date Smoking Tobacco: Never Alcohol Use Standard Drinks/Week Comments Yes 0 (1 standard drink = 0.6 oz pure alcoho l) socially approx 5 drinks/wk Sex Assigned at Date Recorded Not on file documented as of this encounter Progress Notes Jamaal Tyler - 03/30/2009 8:06 AM WATER SYSTEMS DESIGNER FINAL INDICATIONS: Acute renal failure with hyperkalemia and acidosis. PROCEDURE: 1. Placement of Aram dialysis catheter. 2. Hemodialysis. DESCRIPTION OF PROCEDURE: With Elijah Amador in a supine position, the left groin was prepped and draped. The right groin was already occupied by an arterial line so it would be less than optimal to use. The vein was located by ultrasound guidance and an 18 gauge needle passed into the vein. On the initial attempt the wire passed with some difficulty and subsequently a dilator could not be advanced. Therefore the wire and dilator were removed. Pressure was held and a second attempt was made. Againthe vein was cannulated under ultrasound guidance and this time the wire passed easily. A dilator was advanced and withdrawn and subsequently a 19 cm Aram dialysis type catheter was advanced over the wire and the wire removed. Blood was easily aspirated from both ports and both ports were irrigatedwith heparinized saline. The catheter was sutured into place and dressed. HEMODIALYSIS: The patient was seen during the hemodialysis run. We will run him for 3 hours for clearance. We will take off 1 to 2 kg if tolerated. Will use a 1 K bath. Our main goal will be clearanceof potassium and acid. Electronically signed on 03/30/2009 08:06 by JAMAAL TYLER MD MT: [id number] Name: ELIJAH AMADOR MRN: [id number] Account: [id number] : 1960 Procedure Date: 03/14/2009 Document: [id number] R SYSTEMS DESIGNER documented in this encounter Plan of Treatment Not on filedocumented as of this encounter Visit Diagnoses Not on filedocumented in this encounter Additional Health Concerns Infection Onset Date Last Indicated Resolved Time MRSA-Contact IsolationComment: 0 04/26/2021 11:03 AM WATER SYSTEMS DESIGNER Infection 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
--- OUTSIDE RECORDS SUMMARY | 2022-02-12 13:50 | XMS_ITS | Encounter Summary ---
:1960 Author Organization [facility] Address [address] [place] [address] Care Team Providers Name Role Phone Unavailable Primary Care Provider Unavailable Encounter Details Date Type Department Care Team Description 03/17/2009 Historic Notes INTERFACED REPORT Interface, Transcript onMD Social History Tobacco Use Types Packs/Day Years Used Date Smoking Tobacco: Never Alcohol Use Standard Drinks/Week Comments Yes 0 (1 standard drink = 0.6 oz pure alcoho l) socially approx 5 drinks/wk Sex Assigned at Date Recorded Not on file documented as of this encounter Progress Notes Interface, Communications Field Technician - 07/10/2010 3:20 PM CDT NUTRITION NOTE: Pts renal fx improving. Protein needs increased to 1.0-1.2g/kg. Able to change TF formula to Fibersource HN. New TF formula order: Fibersource HN @ 75mL/hr = 2160 kcal (25kcal/kg), 96g pro (1.1g/kg), 18 g fiber, and 1458mL fluid. This meets 100% of pts nutritional needs. [Signature] Author: NIRMALA LAND (RD, LD) [Signed 10:32] Interface, Communications Field Technician - 07/10/2010 3:18 PM CDT SH--Routine visit. Introduced myself to patient, who was vented but awake. No family members were present. Provided reassurance, caring touch, and emotional care and support. Also, offered prayer, which he declined. Will follow. [Signature] Author: Luciana Rose (Set Up Mechanic) [Signed 18:30] documented in this encounter Plan of Treatment Not on filedocumented as of this encounter Visit Diagnoses Not on filedocumented in this encounter Additional Health Concerns Infection Onset Date Last Indicated Resolved Time MRSA-Contact IsolationComment: 0 04/26/2021 11:03 AM RECORD PRESSMAN Infection 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
--- OUTSIDE RECORDS SUMMARY | 2022-02-12 13:50 | XMS_ITS | Encounter Summary ---
:1960 Author Organization [facility] Address [address] [place] [address] Care Team Providers Name Role Phone Unavailable Primary Care Provider Unavailable Encounter Details Date Type Department Care Team Description 03/14/2009 Historic Results INTERFACED REPORT InterfaceItalo MD Social History Tobacco Use Types Packs/Day [...] Diagnosis Comme nts EKG 12 LEAD Routine 03/14/2009 12:11 AM Results for this PROJECT SUPERINTENDENT procedure are i n the results section . documented in this encounter Results EKG 12 LEAD (03/14/2009 12:11 AM PROJECT SUPERINTENDENT) Component Value Ref Range Test Analysis Performed Pathologis t Method Time At Signature Ventricular Rate 131 BPM RADIOLOGY RESULTS Atrial Rate [address] Interval 142 ms RADIOLOGY RESULTS QRS Duration 90 ms RADIOLOGY RESULTS QT 278 ms RADIOLOGY RESULTS QTc 410 ms RADIOLOGY RESULTS P [place] 36 degrees RADIOLOGY RESULTS R AXIS -6 degrees RADIOLOGY RESULTS T [place] 28 degrees RADIOLOGY RESULTS Interpretation AGE AND GENDER SPECIFIC ECG ANALYSIS RADIOLOGY ECG Sinus tachycardia with Fusion complexes RESULTS Septal infarct , age undetermined Inferior infarct , age undetermined Abnormal ECG Unconfirmed report - interpretation of t his ECG is computer generated - see me dical record for final interpretation Specimen Anatomical Collection Method Collection Time Receive d Time (Source) Location / / Volume Laterality 03/14/2009 12:11 03/16/2009 AM PROJECT SUPERINTENDENT 10:46 AM PROJECT SUPERINTENDENT Transcripton Interface ECG ORDERABLES Performing Organization Address City/State/ZIP Code Phon e Number RADIOLOGY RESULTS documented in this encounter Visit Diagnoses Not on filedocumented in this encounter Additional Health Concerns Infection Onset Date Last Indicated Resolved Time MRSA-Contact IsolationComment: 0 04/26/2021 11:03 AM PROJECT SUPERINTENDENT Infection 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
--- OUTSIDE RECORDS SUMMARY | 2022-02-12 13:50 | XMS_ITS | Encounter Summary ---
:1960 Author Organization [facility] Address [address] [place] [address] Care Team Providers Name Role Phone Unavailable Primary Care Provider Unavailable Encounter Details Date Type Department Care Team Description 03/17/2009 Historic Notes INTERFACED REPORT Deep Alston MD [address] [place], [place] [address] (Wo rk) Social History Tobacco Use Types Packs/Day Years Used Date Smoking Tobacco: Never Alcohol Use Standard Drinks/Week Comments Yes 0 (1 standard drink = 0.6 oz pure alcoho l) socially approx 5 drinks/wk Sex Assigned at Date Recorded Not on file documented as of this encounter Progress Notes Liam Alston - 07/10/2010 3:19 PM CDT Subjective: Patient on vent, more alert than yesterday. Intermittent agitation. No new problems overnight. Last 24 hours Vitals signs, imaging done, laboratory results were reviewed by me in [facility]. Fevers overnight 102.4 max, oxygenating well, BP OK GENERAL: Intubated, on vent, somewhat diaphoretic PSYCH: On vent. Seems disoriented but unable to really interview HEENT: PERRLA. Normal conjunctiva, nasal mucosa. ET tube in place NECK: Supple, no neck vein distention, adenopathy or bruits, normal thyroid. HEART: Normal S1, S2 with no murmur, no pericardial rub, S3 or S4. LUNGS: Few ight lung field coarse breath sounds, normal Respiratory effort. Decreased BS left base. ABDOMEN: Soft, no hepatosplenomegaly, normal bowel sounds. EXTREMITIES: No pedal edema, +2 pulses bilateral and equal. SKIN: Dry to touch, No rash, wound or ulceration Assessement and Plan: 1. Fevers overnight. No clear cause. CXR yesterday negative. UA neg, UCx neg so far, Bld Cx pending but neg so far. Some diarrhea with soft abdomen. Consider c. diff. Pt at risk for aspiration with initial events leading to admission. Consider line infection. Check CXR. Empiric Zosyn. Empiric flagyl down NG pending c diff testing. If fevers persist without explanation may need to pull central line. 2. Acute renal failure. Likely secondary to dehydration and rhabdomyolysis. Improved with dialysis initially, improvement continues. Renal following. Doubt he will need additional dialysis. 3. Severe metabolic acidosis with elevated anion gap. Resolved. 4. Respiratory failure due to above. Stable. On vent. Vent mgmt per bag printer. Check daily cxr while on vent. More suspicous of pneumonia today with fever overnight, diaphoresis. Not ready to wean. Check cxr, empiric zosyn. Follow clinically 5. Afib with cardioversion in ED. No recurrence to this point. 6. Troponin elevation. Likely demand ischemia/non-q wave mi related to all of the above. No further w/u at this time. Consider eventual stress test at some point- likely as outpatient once closer to baseline. 7. ETOH dependence with acute withdrawal. Stable. 8. FEN. NPO on vent. Tube feeds per nutrition and renal. 9. MRSA colonization (nare swab positive). Precautions per protocol. 10. H/o gout. 11. H/o hypercholesterolemia. 11. H/o hypertension. 12. H/o previous GI bleed. On PPI [Signature] Author: LIAM ALSTON) [Signed 12:58] documented in this encounter Plan of Treatment Not on filedocumented as of this encounter Visit Diagnoses Not on filedocumented in this encounter Additional Health Concerns Infection Onset Date Last Indicated Resolved Time MRSA-Contact IsolationComment: 0 04/26/2021 11:03 AM ARMED SECURITY PROFESSIONAL Infection 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
--- OUTSIDE RECORDS SUMMARY | 2022-02-12 13:50 | XMS_ITS | Encounter Summary ---
:1960 Author Organization [facility] Address [address] [place] [address] Care Team Providers Name Role Phone Unavailable Primary Care Provider Unavailable Encounter Details Date Type Department Care Team Description 03/16/2009 Historic Notes INTERFACED REPORT Interface, Transcript onMD Social History Tobacco Use Types Packs/Day Years Used Date Smoking Tobacco: Never Alcohol Use Standard Drinks/Week Comments Yes 0 (1 standard drink = 0.6 oz pure alcoho l) socially approx 5 drinks/wk Sex Assigned at Date Recorded Not on file documented as of this encounter Progress Notes Interface, Software Asset Manager - 07/10/2010 3:24 PM CDT SWS D: SW received order to assist pt. w/ discharge planning. A: Pt. is currently on a vent and is not arousable. P: SW will continue to follow and meet w/ pt. once he is awake and able to be interviewed. [Signature] Author: Mai Orosco (ACUPUNCTURIST) [Signed 10:30] Interface, Software Asset Manager - 07/10/2010 3:24 PM CDT Tube Feeding Consult: Medications reviewed for drug/nutrient interaction and administration by feeding tube. No changes recommended at this time. [Signature] Author: Brian Hoyos (Pharmacist) [Signed 10:44] Interface, Software Asset Manager - 07/10/2010 3:23 PM CDT Pt remains intubated on ventilator. cmv 8/650/30%/+5, wean attempted today on PS +7/+5. weaning failed due to increased RR and decreased Vt and sats. Sx thick yellow sputum. Oral sx bloody. Sats 98-100%, HR 62-74, [Signature] Author: Eloina Andrews ([facility]) [Signed 13:20] Interface, Software Asset Manager - 07/10/2010 3:23 PM CDT Nutrition Assessment - Reason for assessment Tube feeding Anthropometrics - Height: 70 - Admission weight: 86kg - IBW (Croghan body 75.5kg weight): - % IBW (Croghan body 114% weight): - Dosing weight: 86kg Nutrition Prescription - Nutrition NPO Prescription: - Comments:: TF consult per MD. Nutrition History - Nutrition history: Unable to gather history as pt is intubated. Labs/Medications - Labs: Reviewed - Lab comments: BUN/Cr 71/5.05 - remains elevated d/t renal failure GFR 12 - low - Medications: Reviewed - Medication comments: M-SSI Procedures - Procedures with s/p shashank catheter placement for dailysis nutritional implications: Physical Findings - Comments: Last Dialysis on 03/14. No dialysis planned today - per MD, likely no more dialysis Intubated ETOH withdrawl Metabolic acidosis I/O: 2825/1225 350mL out NG Estimated Needs - Needs based on: Admit wt: 86kg - Energy needs: 3134-1387 kcal (25-30kcal/kg) - Protein needs: 50-70g pro (.6-.8g/kg) - renal failure, no further dialysis planned at this time - Fluid needs: 4926-2870 mL fluid (25-30mL/kg) Nutrition Diagnosis - Nutrition diagnosis: Inadequtate oral food/beverage intake related to intubation AEB pt need for TF. Interventions - Interventions: Received consult for TF recs. TF to be given via NG tube. MD entered Nepro at 55mL/hr - however, no further dialysis planned at this time. GFR remains low and BUN/Cr elevated - need to restrict protein. RD entered order for appropriate formula when no dialysis is going - Suplena @ 55mL/hr = 2376 kcal (28kcal/kg), 59g pro (.7g/kg), 20g fiber, and 964mL fluid + 60q4 hrs. Per MD, start TF at 20mL/hr and keep at 20mL/hr until further instruction from MD. - Goals: Pt to receive 100% nutrition from TF. BUN/Cr to continue to improve. - Follow-up: Monitor TF start/tolerance Monitor labs - BUN/Cr, protein labs, electrolytes. Monitor wt changes. Monitor po abilitly. - Recommendations: Rec switch to Nepro if further dialysis is planned. Signatures NIRMALA LAND (RD, LD)[Signed 13:39] Authored: Nutrition Assessment, Anthropometrics, Nutrition Prescription, Nutrition History, Labs/Medications, Procedures, Physical Findings, Estimated Needs, Nutrition Diagnosis, Interventions documented in this encounter Plan of Treatment Not on filedocumented as of this encounter Visit Diagnoses Not on filedocumented in this encounter Additional Health Concerns Infection Onset Date Last Indicated Resolved Time MRSA-Contact IsolationComment: 0 04/26/2021 11:03 AM WIREWORKER SUPERVISOR Infection 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
--- OUTSIDE RECORDS SUMMARY | 2022-02-12 13:50 | XMS_ITS | Encounter Summary ---
:1960 Author Organization [facility] Address [address] [place] [address] Care Team Providers Name Role Phone Unavailable Primary Care Provider Unavailable Encounter Details Date Type Department Care Team Description 03/16/2009 Results Only [facility] Liam Traylor MD Hospital Results [address] [place], [place] [address] (Wo rk) Social History [...] Procedure Name Priority Date/Time Associated Diagnosis Comme [facility] CHEST ONE VIEW Routine 03/16/2009 4:50 AM Resu lts for this SOUND EFFECTS MANAGER procedure are i n the results section. documented in this encounter Results CHEST X-RAY 1 VW (03/16/2009 4:50 AM SOUND EFFECTS MANAGER) Anatomical Region Laterality Modality Other Specimen (Source) Anatomical Collection Method Collection Time Re ceived Time Location / / Volume Laterality 03/16/2009 4:50 AM SOUND EFFECTS MANAGER Impressions 03/16/2009 9:53 AM SOUND EFFECTS MANAGER CHEST 1VIEW PORTABLE Mar 16, 2009 4:50:0 0 AM HISTORY: ??Check ETT. COMPARISON: ??03/15/2009 IMPRESSION: ??Rotated positioning. Endot vy tube tip in the trachea. Feeding tube tip not seen. Righ t IJ line tip in the distal SVC or right atrium. Shallow inspiration . There may be some atelectasis at the lung bases. Liam Traylor MD GENERAL IMAGING documented in this encounter Visit Diagnoses Not on filedocumented in this encounter Additional Health Concerns Infection Onset Date Last Indicated Resolved Time MRSA-Contact IsolationComment: 0 04/26/2021 11:03 AM SOUND EFFECTS MANAGER Infection 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
--- OUTSIDE RECORDS SUMMARY | 2022-02-12 13:50 | XMS_ITS | Encounter Summary ---
:1960 Author Organization [facility] Address [address] [place] [address] Care Team Providers Name Role Phone Unavailable Primary Care Provider Unavailable Encounter Details Date Type Department Care Team Description 03/14/2009 Historic Notes INTERFACED REPORT Interface, Transcript on, Social History Tobacco Use Types Packs/Day Years Used Date Smoking Tobacco: Never Alcohol Use Standard Drinks/Week Comments Yes 0 (1 standard drink = 0.6 oz pure alcoho l) socially approx 5 drinks/wk Sex Assigned at Date Recorded Not on file documented as of this encounter Progress Notes Interface, Oracle Hyperion Consultant - 07/10/2010 3:30 PM CDT Pt. placed on 10/5 bipap, rate of 8, 40%. SpO2 97%. Pt. found off bipap per RN at 0015. [Signature] Author: Flora Siddiqui (STRUCTURAL ANALYST) [Signed 00:34] Interface, Oracle Hyperion Consultant - 07/10/2010 3:30 PM CDT Notification - Notified Person:: MD - Notified Persons Dr. Carnes Name: - Notification Time:: 05:15 - Notification Paged, web based Interaction:: - Was a message left?: Yes - Purpose of Lab results, Critical results read back notification:: - Orders received?: No - Comments:: Web based Dr. Carnes critical lab results. Asked for orders, no reply from physician. Suzanne Obregon RN Signatures SUZANNE OBREGON (RN)[Signed 07:50] Authored: Notification Interface, Oracle Hyperion Consultant - 07/10/2010 3:29 PM CDT General Information - How to be Addressed navarro - Temporary Family none required Living Arrangements - Source of Information family; significant other - Arrived From emergency department - personal banker #1: Shalonda - Relationship to girlfriend patient #1: - Contact Location: Home Local - Phone 1: [phone] - personal banker #2: Chantal Woods - Relationship to sister patient #2: - Contact Location: Home Local - Phone 1: [phone] - Cell - personal banker #3: Juan Pablo - Relationship to mom & dad patient #3: - Phone 1: [phone] - Patient's spoken language; [place]ican or Bilingual communication style Advance Directive - Do you have an No Advanced Health Care Directive? - Can patient name a No. The Patient is unable/chooses not to. Surrogate Decision Maker? (Not legally binding) Health and Illness - Reason for Admission unable-unresponsive as Stated by Patient Role Relationships/Living Environment - Significant significant other Relationships - Limitations on none Visitors/Phone Calls/TV - Lives With significant other Substance Use - Alcohol Use current alcohol use - Alcohol Type liquor whisky - Alcohol Frequency daily - Alcohol Amount 10 or more drinks, whole bottle - Problems Related to yes Alcohol Use - Alcohol Withdrawal aggression agitation diaphoresis Pattern Review of Systems - Neurological none Conditions/Symptoms - Pain: 0 Comfort/Acceptable Pain Level (0-10) - Chronic Pain no - Head none Conditions/Symptoms - Eye none Conditions/Symptoms - Ear none Conditions/Symptoms - Cardiac hypertension Conditions/Symptoms - Peripheral/Neurovasc_ none ular Conditions/Symptoms - Respiratory none Conditions/Symptoms - Diet Regular - GI none Conditions/Symptoms - Musculoskeletal none Conditions/Symptoms - Ambulation 0 - Independent with ambulation [...] none Conditions/Symptoms - Immune /Infections none - Pneumococcal Vaccine unknown - Oncology none Conditions/Symptoms - Mental Health none Conditions/Symptoms Skin Inspection - Skin Inspection: WDL: color consistent w/ ethnicity; no abnormality in temperature, moisture, turgor, integrity Coping Stress/Abuse - Major none Change/Loss/Stressor - QUESTION TO PATIENT: No Has a member of your family or a partner(now or in the past) intimidated, hurt, manipulated, or controlled you in any way? - QUESTION TO Patient declined to answer or is unable to PATIENT/CAREGIVER: Do answer you feel safe going back to the place where you are living? - NURSE OBSERVATION: Is No there reason to believe there has been maltreatment of a vulnerable adult (ie. Physical/Sexual/Emot_ ioanl abuse, self neglect, lack of adequate food, alf, medical care, or financial exploitation)? Values/Beliefs/Spiritual Care - C: Community: In pt/family will contact support of your spiritual health, is there someone we may contact for you? (identify all that apply) Learning Assessment - Factors Influencing acuteness of illness Readiness to Learn - Factors that Impact unresponsive Ability to Learn - Learning Preferences unable - Cultural none Considerations - Developmental none Considerations - Presybeterian none Considerations Mutuality/Individual Preferences - What information unable to answer would help us give you more personalized care? Signatures NIRMALA LAND (RD, LD)[Signed 13:13] Authored: Review of Systems WAGNER CORONADO (RN)[Signed 11:23] Authored: General Information, Advance Directive, Health and Illness, Role Relationships/Living Environment, Substance Use, Review of Systems, Skin Inspection, Coping Stress/Abuse, Values/Beliefs/Spiritual Care, Learning Assessment, Mutuality/Individual Preferences documented in this encounter Plan of Treatment Not on filedocumented as of this encounter Visit Diagnoses Not on filedocumented in this encounter Additional Health Concerns Infection Onset Date Last Indicated Resolved Time MRSA-Contact IsolationComment: 0 04/26/2021 11:03 AM ELECTRICAL INSTRUMENT REPAIRER Infection 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
--- OUTSIDE RECORDS SUMMARY | 2022-02-12 13:50 | XMS_ITS | Encounter Summary ---
:1960 Author Organization [facility] Address [address] [place] [address] Care Team Providers Name Role Phone Unavailable Primary Care Provider Unavailable Encounter Details Date Type Department Care Team Description 03/16/2009 Historic Notes INTERFACED REPORT Xu Wyatt MD [address] [facility] [address] [place] [address] (Wo rk) Social History Tobacco Use Types Packs/Day Years Used Date Smoking Tobacco: Never Alcohol Use Standard Drinks/Week Comments Yes 0 (1 standard drink = 0.6 oz pure alcoho l) socially approx 5 drinks/wk Sex Assigned at Date Recorded Not on file documented as of this encounter Progress Notes Brian Wyatt - 07/10/2010 3:24 PM CDT ICU Staff S: Pt not responding to voice. Localizes to pain O: VSS, Afeb I/O 2824/1225, UO since [place] 325 RR: 9-16, Sats 100% on 30% FiO2 Chest: CTA Abd: soft Ext: no edema Neuro: opens eyes, localizes to pain, intubated A/P: Renal failure, nonoliguric, Enlisted Advisor improving. Doubt that we will need dialysis today. Decrease IV rate Hypomagnesemia: replace Resp failure: not ready to extubate yet due to MS EtOH withdrawal. Continue dexmetatomidine, decrease ativan Malnutrition: Begin TFs via NG Hypokalemia: replace 45 min ICU time GB [phone] [Signature] Author: BRIAN WYATT) [Signed 09:09] documented in this encounter Plan of Treatment Not on filedocumented as of this encounter Visit Diagnoses Not on filedocumented in this encounter Additional Health Concerns Infection Onset Date Last Indicated Resolved Time MRSA-Contact IsolationComment: 0 04/26/2021 11:03 AM WALLPAPER INSPECTOR Infection 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
--- OUTSIDE RECORDS SUMMARY | 2022-02-12 13:50 | XMS_ITS | Encounter Summary ---
:1960 Author Organization [facility] Address [address] [place] [id number] Care Team Providers Name Role Phone Unavailable Primary Care Provider Unavailable Encounter Details Date Type Department Care Team Description 03/18/2009 Results Only [facility] Liam Traylor MD Hospital Results [address] [place], [place] [address] (Wo rk) Social History [...] Procedure Name Priority Date/Time Associated Diagnosis Comme [facility] CHEST ONE VIEW Routine 03/18/2009 5:25 AM Resu lts for this POT WASHER procedure are i n the results section. documented in this encounter Results CHEST X-RAY 1 VW (03/18/2009 5:25 AM POT WASHER) Anatomical Region Laterality Modality Other Specimen (Source) Anatomical Collection Method Collection Time Re ceived Time Location / / Volume Laterality 03/18/2009 5:25 AM POT WASHER Impressions 03/18/2009 2:37 PM POT WASHER PORTAL AP SUPINE CHEST March 18, 2009 5:25:00 AM HISTORY: Acute renal failure, fever, on ventilator. COMPARISON: 03/17/2009. FINDINGS: Endotracheal tube remains in p lace in satisfactory position. NG tube traverses the esophagus. Central venous catheter remains with tip in mid right atrium. Small amount of subsegmental atelectasis at lung bases. No definite change from 02/23. No definable pulmonary vascular congestion. Heart size is stabl e. Liam Traylor MD GENERAL IMAGING documented in this encounter Visit Diagnoses Not on filedocumented in this encounter Additional Health Concerns Infection Onset Date Last Indicated Resolved Time MRSA-Contact IsolationComment: 0 04/26/2021 11:03 AM POT WASHER Infection 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
--- OUTSIDE RECORDS SUMMARY | 2022-02-12 13:50 | XMS_ITS | Encounter Summary ---
:1960 Author Organization [facility] Address [address] [place] [address] Care Team Providers Name Role Phone Unavailable Primary Care Provider Unavailable Encounter Details Date Type Department Care Team Description 03/13/2009 Historic Results INTERFACED REPORT InterfaceItalo MD Social [...] Diagnosis Comme nts EKG 12 LEAD Routine 03/13/2009 9:41 PM Results f or this LEAD MINER BLASTING procedure are i n the results section . documented in this encounter Results EKG 12 LEAD (03/13/2009 9:41 PM LEAD MINER BLASTING) Component Value Ref Range Test Analysis Performed Pathologis t Method Time At Signature Ventricular Rate 122 BPM RADIOLOGY RESULTS Atrial Rate 122 BPM RADIOLOGY RESULTS [place] Interval 134 ms RADIOLOGY RESULTS QRS Duration 96 ms RADIOLOGY RESULTS QT 290 ms RADIOLOGY RESULTS QTc 413 ms RADIOLOGY RESULTS P [place] 43 degrees RADIOLOGY RESULTS R AXIS 1 degrees RADIOLOGY RESULTS T [place] -2 degrees RADIOLOGY RESULTS Interpretation AGE AND GENDER SPECIFIC ECG ANALYSIS RADIOLOGY ECG Sinus tachycardia RESULTS Otherwise normal ECG Unconfirmed report - interpretation of this ECG is compute r generated - see medical record for final interpretation Specimen Anatomical Collection Method Collection Time Receive d Time (Source) Location / / Volume Laterality 03/13/2009 9:41 PM 9 LEAD MINER BLASTING 10:45 AM LEAD MINER BLASTING Transcripton Interface ECG ORDERABLES Performing Organization Address City/State/ZIP Code Phon e Number RADIOLOGY RESULTS documented in this encounter Visit Diagnoses Not on filedocumented in this encounter Additional Health Concerns Infection Onset Date Last Indicated Resolved Time MRSA-Contact IsolationComment: 0 04/26/2021 11:03 AM LEAD MINER BLASTING Infection 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
--- OUTSIDE RECORDS SUMMARY | 2022-02-12 13:50 | XMS_ITS | Encounter Summary ---
:1960 Author Organization [employer] Address [address] [place] [id number] Care Team Providers Name Role Phone Unavailable Primary Care Provider Unavailable Encounter Details Date Type Department Care Team Description 03/14/2009 Historic Results [facility]Gianni Church MD Hospitalists [address] [place], [place] [phone] (Wo rk) Social History [...] Associated Comments Diagnosis GLUCOSE BY METER Routine 03/14/2009 8:03 PM Resul ts for this SUEDING MACHINE TENDER procedure are i n the results section. GLUCOSE BY METER Routine 03/14/2009 3:54 PM Resul ts for this SUEDING MACHINE TENDER procedure are i n the results section. BLOOD GAS ARTERIAL AND Routine 03/14/2009 11:25 R esults for this OXYHGB AM SUEDING MACHINE TENDER procedure are i n the results section. CK TOTAL Timed 03/14/2009 10:50 Results for this AM SUEDING MACHINE TENDER procedure are i n the results section. BASIC METABOLIC PANEL Timed 03/14/2009 10:50 Re sults for this AM SUEDING MACHINE TENDER procedure are i n the results section. FRACTIONAL EXCRETION OF STAT 03/14/2009 9:00 AM Results for this SODIUM SUEDING MACHINE TENDER procedure are i n the results section. GLUCOSE BY METER Routine 03/14/2009 7:51 AM Resul ts for this SUEDING MACHINE TENDER procedure are i n the results section. BLOOD GAS ARTERIAL AND STAT 03/14/2009 5:05 AM Results for this OXYHGB SUEDING MACHINE TENDER procedure are i n the results section. SEND OUTS MISC TEST Routine 03/14/2009 4:45 AM Re sults for this SUEDING MACHINE TENDER procedure are i n the results section. SEND OUTS MISC TEST Routine 03/14/2009 4:45 AM Re sults for this SUEDING MACHINE TENDER procedure are i n the results section. STAPH AUREUS Routine 03/14/2009 4:40 AM Results f or this METHICILLIN RESISTANT SUEDING MACHINE TENDER proced ure are in PCR (RW) the results section. REFERRAL SENSITIVITY Routine 03/14/2009 4:40 AM R esults for this SUEDING MACHINE TENDER procedure are i n the results section. SALICYLATE LEVEL STAT 03/14/2009 4:30 AM Resul ts for this SUEDING MACHINE TENDER procedure are i n the results section. PHOSPHORUS Routine 03/14/2009 4:30 AM Results f or this SUEDING MACHINE TENDER procedure are i n the results section. MAGNESIUM Routine 03/14/2009 4:30 AM Results f or this SUEDING MACHINE TENDER procedure are i n the results section. COMPREHENSIVE METABOLIC Routine 03/14/2009 4:30 AM Results for this PANEL SUEDING MACHINE TENDER procedure are i n the results section. ACETAMINOPHEN LEVEL STAT 03/14/2009 4:30 AM Re sults for this SUEDING MACHINE TENDER procedure are i n the results section. GLUCOSE BY METER Routine 03/14/2009 4:29 AM Resul ts for this SUEDING MACHINE TENDER procedure are i n the results section. BLOOD GAS ARTERIAL AND Routine 03/14/2009 2:50 AM Results for this OXYHGB SUEDING MACHINE TENDER procedure are i n the results section. TROPONIN I Routine 03/14/2009 1:49 AM Results f or this SUEDING MACHINE TENDER procedure are i n the results section. INR Routine 03/14/2009 1:49 AM Results f or this SUEDING MACHINE TENDER procedure are i n the results section. POTASSIUM Routine 03/14/2009 1:49 AM Results f or this SUEDING MACHINE TENDER procedure are i n the results section. PARTIAL THROMBOPLASTIN Routine 03/14/2009 1:49 AM Results for this TIME SUEDING MACHINE TENDER procedure are i n the results section. MAGNESIUM Routine 03/14/2009 1:49 AM Results f or this SUEDING MACHINE TENDER procedure are i n the results section. BASIC METABOLIC PANEL Routine 03/14/2009 1:49 AM Results for this SUEDING MACHINE TENDER procedure are i n the results section. BLOOD GAS ARTERIAL AND Routine 03/14/2009 12:32 R esults for this OXYHGB AM SUEDING MACHINE TENDER procedure are i n the results section. ROUTINE UA WITH STAT 03/14/2009 12:24 Results for this MICROSCOPIC AM SUEDING MACHINE TENDER procedure are i n the results section. documented in this encounter Results (ABNORMAL) Glucose by meter (03/14/2009 8:03 PM SUEDING MACHINE TENDER) athologist Signature Glucose 162 (H) 60 - 99 MISYS mg/dL Specimen Anatomical Collection Method Collection Time Receive d Time (Source) Location / / Volume Laterality 03/14/2009 8:03 PM 9 8:20 SUEDING MACHINE TENDER PM SUEDING MACHINE TENDER Kaiden REHMAN - BEAKER POCT Performing Organization Address City/State/RUST Code Phon e Number MISYS (ABNORMAL) Glucose by meter (03/14/2009 3:54 PM SUEDING MACHINE TENDER) athologist Signature Glucose 152 (H) 60 - 99 MISYS mg/dL Specimen Anatomical Collection Method Collection Time Receive d Time (Source) Location / / Volume Laterality 03/14/2009 3:54 PM 9 4:00 SUEDING MACHINE TENDER PM SUEDING MACHINE TENDER Kaiden REHMAN - JESICA POCT Performing Organization Address City/[facility]/RUST Code Phon e Number MISYS (ABNORMAL) Blood gas arterial and oxyhgb (03/14/2009 11:25 AM SUEDING MACHINE TENDER) [facility] gist Method Time Signature pH Arterial 7.37 7.35 - MISYS 7.45 pH pCO2 Arterial 27 (L) 35 - 45 MISYS mm Hg pO2 Arterial 193 (H) 80 - 105 MISYS mm Hg Oxyhemoglobin 97 92 - 100 MISYS Arterial % Base Deficit Art 8.2 mmol/L MISYS Comment: Reference range: -9.0 to 1.8 FIO2 Ventilator MISYS Comment: 40% CORRECTED ON 03/14 AT 1150: PREVIOUSLY R EPORTED Ventricle 40% Bicarbonate Arterial 15 (L) 21 - 28 mmol/L MISY S Specimen Anatomical Collection Method Collection Time Receive d Time (Source) Location / / Volume Laterality 03/14/2009 11:25 03/14/2009 8:51 AM SUEDING MACHINE TENDER AM SUEDING MACHINE TENDER Brian Turner MD LAB - BLOOD ORDERABLES Performing Organization Address City/[facility] Phon e Number MISYS (ABNORMAL) CK total (03/14/2009 10:50 AM SUEDING MACHINE TENDER) athologist Signature CK Total 1564 (HH) 45 - 300 MISYS U/L Comment: Critical Value called to and read back jessica MEDEIROS IN ICU AT 1133 ON 03/14/09 JAB Specimen Anatomical Collection Method Collection Time Receive d Time (Source) Location / / Volume Laterality 03/14/2009 10:50 03/14/2009 AM SUEDING MACHINE TENDER 11:00 AM SUEDING MACHINE TENDER Brian Turner MD LAB - BLOOD ORDERABLES Performing Organization Address City/State/ZIP Code Phon e Number MISYS (ABNORMAL) Basic metabolic panel (03/14/2009 10:50 AM SUEDING MACHINE TENDER) athologist Signature Sodium 136 133 - 144 MISYS mmol/L Comment: Reviewed, acceptable Potassium 4.6 3.4 - 5.3 mmol/L MISYS Chloride 91 (L) 94 - 109 mmol/L MISYS Carbon Dioxide 12 (L) 20 - 32 mmol/L MISYS Glucose 84 60 - 99 mg/dL MISYS Urea Nitrogen 59 (H) 5 - 24 mg/dL MISYS Comment: Reviewed, acceptable Creatinine 9.56 (H) 0.66 - 1.25 mg/dL MISYS Comment: New IDMS-traceable calibration ??beginni ng 08/23/07 Reviewed, acceptable GFR Estimate 6 (L) >60 mL/min/1.7m2 MISYS GFR Estimate If Black 7 (L) >60 mL/min/1.7m2 M ISYS Calcium 7.9 (L) 8.5 - 10.4 mg/dL MISYS Anion Gap 33 (H) 6 - 17 mmol/L MISYS Specimen Anatomical Collection Method Collection Time Receive d Time (Source) Location / / Volume Laterality 03/14/2009 10:50 03/14/2009 AM SUEDING MACHINE TENDER 11:00 AM SUEDING MACHINE TENDER Brian Turner MD LAB - BLOOD ORDERABLES Performing Organization Address City/State/ZIP Code Phon e Number MISYS Fractional excretion of sodium (03/14/2009 9:00 AM SUEDING MACHINE TENDER) P athologist Signature Creatinine Urine 226 mg/dL MISYS Sodium Urine 35 mmol/L MISYS mmol/L %FENA 2.0 % MISYS Comment: Adult: ?<1 percent ? Indicates prerenal azote shemar ? >3 percent ? Suggests acute tubular ? necrosis Neonates: <2.5 percent ? Suggest prerenal azotemi a ? >2.5 percent ? Suggest acute tubular ne crosis Specimen Anatomical Collection Method Collection Time Receive d Time (Source) Location / / Volume Laterality 03/14/2009 9:00 AM 9 2:59 SUEDING MACHINE TENDER AM SUEDING MACHINE TENDER Richard Shirley MD LAB - URINE ORDERABLES Performing Organization Address City/State/ZIP Code Phon e Number MISYS (ABNORMAL) Glucose by meter (03/14/2009 7:51 AM SUEDING MACHINE TENDER) athologist Signature Glucose 151 (H) 60 - 99 MISYS mg/dL Specimen Anatomical Collection Method Collection Time Receive d Time (Source) Location / / Volume Laterality 03/14/2009 7:51 AM 9 SUEDING MACHINE TENDER 12:50 PM SUEDING MACHINE TENDER Kaiden Carpenter MD LAB - BEAKER POCT Performing Organization Address City/State/ZIP Code Phon e Number MISYS (ABNORMAL) Blood gas arterial and oxyhgb (03/14/2009 5:05 AM SUEDING MACHINE TENDER) P athologist Signature pH Arterial 7.21 (L) 7.35 - MISYS 7.45 pH pCO2 Arterial 17 (LL) 35 - 45 mm MISYS Hg Comment: Critical Value called to and read back MAIN [email or web address] pO2 Arterial 158 (H) 80 - 105 mm Hg MISYS Oxyhemoglobin Arterial 94 92 - 100 % MISYS Base Deficit Art 19.9 mmol/L MISYS Comment: Abnormal Result, Ref range: -9. 0 to 1.8 FIO2 40% MISYS Comment: Ventilator CMV,R16,VT700,PEEP5 Bicarbonate Arterial 7 (LL) 21 - 28 mmol/L MISY S Comment: Critical Value called to and read back MAIN [email or web address] Specimen Anatomical Collection Method Collection Time Receive d Time (Source) Location / / Volume Laterality 03/14/2009 5:05 AM 9 5:09 SUEDING MACHINE TENDER AM SUEDING MACHINE TENDER Kaiden Carpenter MD LAB - BLOOD ORDERABLES Performing Organization Address [facility]/[place] Code Phon e Number MISYS Send outs misc test (03/14/2009 4:45 AM SUEDING MACHINE TENDER) [facility] Method Time Signature Test Name VOLATILES MISYS SCREEN Send Outs Whole Blood MISYS Misc Test Specimen Result (Note) MISYS Comment: VOLATILES SCREEN: POSITIVE ACETONE: POSITIVE Volatiles screen includes: acetone, ethy l alcohol, isopropyl alcohol, and methyl alcohol. Normal Range for Send Outs Misc Test Negative MISYS Comment: Assayed at [facility] [place] [address] Specimen Anatomical Collection Method Collection Time Receive d Time (Source) Location / / Volume Laterality 03/14/2009 4:45 AM 9 5:01 SUEDING MACHINE TENDER AM SUEDING MACHINE TENDER Kaiden Carpenter MD LAB - BLOOD ORDERABLES Performing Organization Address [facility] Phon e Number MISYS Send outs misc test (03/14/2009 4:45 AM SUEDING MACHINE TENDER) [facility] Method Time Signature Test Name ETHYLENE MISYS GLYCOL Send Outs Misc Whole Blood MISYS Test Specimen Result Negative MISYS Normal Range Negative MISYS for Send Outs Misc Test Comment: Assayed at [facility] [place] [id number] Specimen Anatomical Collection Method Collection Time Receive d Time (Source) Location / / Volume Laterality 03/14/2009 4:45 AM 9 5:05 SUEDING MACHINE TENDER AM SUEDING MACHINE TENDER Kaiden Carpenter MD LAB - BLOOD ORDERABLES Performing Organization Address [facility] Phon e Number MISYS Staph aureus methicillin resistant PCR (03/14/2009 4:40 AM SUEDING MACHINE TENDER) [facility] Method Time Signature Specimen Nares MISYS Description Methicillin Positive: MISYS Resist/Sens S. 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 Comment: FDA approved assay performed using [employer]ep [employer] GeneXpert(R) real-time PCR with amplification of a sequence in a casset te inserted in the S.aureus chromosome. Specimen Anatomical Collection Method Collection Time Receive d Time (Source) Location / / Volume Laterality 03/14/2009 4:40 AM 9 1:10 SUEDING MACHINE TENDER AM SUEDING MACHINE TENDER Kaiden Carpenter MD LAB - MICRO GENERAL ORDERABL ES Performing Organization Address City/State/ZIP Code Phon e Number MISYS Referral sensitivity (03/14/2009 4:40 AM SUEDING MACHINE TENDER) Component Value Ref Test Analysis Performed Pathologis t Range Method Time At Signature Specimen Nares MISYS Description Culture Micro No MRSA isolated: MISYS susceptibilities not available. PCR assay is more sensitive Comment: than culture. Micro Report Status FINAL 03/20/2009 MIS YS Specimen Anatomical Collection Method Collection Time Receive d Time (Source) Location / / Volume Laterality 03/14/2009 4:40 AM 9 3:03 SUEDING MACHINE TENDER PM SUEDING MACHINE TENDER Kaiden Carpenter MD LAB - MICRO GENERAL ORDERABL ES Performing Organization Address City/State/ZIP Code Phon e Number MISYS (ABNORMAL) Comprehensive metabolic panel (03/14/2009 4:30 AM SUEDING MACHINE TENDER) P athologist Signature Sodium 127 (L) 133 - 144 MISYS mmol/L Potassium 5.7 (H) 3.4 - 5.3 MISYS mmol/L Chloride 87 (L) 94 - 109 MISYS mmol/L Carbon Dioxide <5 (LL) 20 - 32 MISYS mmol/L Glucose 109 (H) 60 - 99 MISYS mg/dL Urea Nitrogen 124 (H) 5 - 24 MISYS mg/dL Comment: Results confirmed by repeat patricia t Creatinine 16.32 (H) 0.66 - 1.25 mg/dL MISYS Comment: New IDMS-traceable calibration ??beginni ng 08/23/07 Results confirmed by repeat test GFR Estimate Not Calculated >60 mL/min/1.7m2 MISYS GFR Estimate If Black Not Calculated >60 mL/min/1.7m2 MISYS Calcium 8.5 8.5 - 10.4 mg/dL MISYS AST 117 (H) 0 - 55 U/L MISYS Protein Total 7.4 6.8 - 8.8 g/dL MISYS Anion Gap Not Calculated 6 - 17 mmol/L MISYS Albumin 3.5 (L) 3.9 - 5.1 g/dL MISYS ALT 39 0 - 70 U/L MISYS Alkaline Phosphatase 109 40 - 150 U/L MISYS Bilirubin Total 1.5 (H) 0.2 - 1.3 mg/dL MISYS Specimen Anatomical Collection Method Collection Time Receive d Time (Source) Location / / Volume Laterality 03/14/2009 4:30 AM 9 2:57 SUEDING MACHINE TENDER AM SUEDING MACHINE TENDER Richard Shirley MD LAB - BLOOD ORDERABLES Performing Organization Address [facility] Phon e Number MISYS (ABNORMAL) Phosphorus (03/14/2009 4:30 AM SUEDING MACHINE TENDER) P athologist Signature Phosphorus 8.4 (H) 2.5 - 4.5 MISYS mg/dL Specimen Anatomical Collection Method Collection Time Receive d Time (Source) Location / / Volume Laterality 03/14/2009 4:30 AM 9 2:57 SUEDING MACHINE TENDER AM SUEDING MACHINE TENDER Richard Shirley MD LAB - BLOOD ORDERABLES Performing Organization Address [facility] Phon e Number MISYS Magnesium (03/14/2009 4:30 AM SUEDING MACHINE TENDER) athologist Signature Magnesium 2.1 1.6 - 2.3 MISYS mg/dL Specimen Anatomical Collection Method Collection Time Receive d Time (Source) Location / / Volume Laterality 03/14/2009 4:30 AM 9 2:57 SUEDING MACHINE TENDER AM SUEDING MACHINE TENDER Richard Shirley MD LAB - BLOOD ORDERABLES Performing Organization Address [facility]/[place] Code Phon e Number MISYS Acetaminophen level (03/14/2009 4:30 AM SUEDING MACHINE TENDER) Analysis Performed At Patho logist Time Signature Acetaminophen <10 mg/L MISYS Level Specimen Anatomical Collection Method Collection Time Receive d Time (Source) Location / / Volume Laterality 03/14/2009 4:30 AM 9 2:59 SUEDING MACHINE TENDER AM SUEDING MACHINE TENDER Richard Shirley MD LAB - BLOOD ORDERABLES Performing Organization Address [facility] Phon e Number MISYS Salicylate level (03/14/2009 4:30 AM SUEDING MACHINE TENDER) P athologist Signature Salicylate Level <1 mg/dL MISYS Comment: Therapeutic: ?<20 Anti inflammatory: ??15-30 Specimen Anatomical Collection Method Collection Time Receive d Time (Source) Location / / Volume Laterality 03/14/2009 4:30 AM 9 2:59 SUEDING MACHINE TENDER AM SUEDING MACHINE TENDER Richard Shirley MD LAB - BLOOD ORDERABLES Performing Organization Address City/[facility]/[place] Code Phon e Number MISYS (ABNORMAL) Glucose by meter (03/14/2009 4:29 AM SUEDING MACHINE TENDER) P athologist Signature Glucose 156 (H) 60 - 99 MISYS mg/dL Specimen Anatomical Collection Method Collection Time Receive d Time (Source) Location / / Volume Laterality 03/14/2009 4:29 AM 9 SUEDING MACHINE TENDER 12:50 PM SUEDING MACHINE TENDER Kaiden Carpenter MD LAB - BEAKER POCT Performing Organization Address City/[facility]/[place] Code Phon e Number MISYS (ABNORMAL) Blood gas arterial and oxyhgb (03/14/2009 2:50 AM SUEDING MACHINE TENDER) Patholo gist Method Time Signature pH Arterial 7.15 (L) 7.35 - MISYS 7.45 pH pCO2 Arterial 30 (L) 35 - 45 MISYS mm Hg pO2 Arterial 391 (H) 80 - 105 MISYS mm Hg Oxyhemoglobin 95 92 - 100 MISYS Arterial % Base Deficit Art 17.7 mmol/L MISYS Comment: Abnormal Result, Ref range: -9. 0 to 1.8 FIO2 100% MISYS Comment: Ventilator CMV,R16,VT700,PEEP,+5 Bicarbonate Arterial 10 (LL) 21 - 28 mmol/L MISY S Comment: Critical Value called to and read back jessica VALVERDE,[email or web address],AR Specimen Anatomical Collection Method Collection Time Receive d Time (Source) Location / / Volume Laterality 03/14/2009 2:50 AM 9 2:38 SUEDING MACHINE TENDER AM SUEDING MACHINE TENDER Haroldo Arnold MD LAB - BLOOD ORDERABLES Performing Organization Address City/[facility]/ZIP Code Phon e Number MISYS (ABNORMAL) INR (03/14/2009 1:49 AM SUEDING MACHINE TENDER) athologist Signature INR 1.19 (H) 0.86 - 1.14 MISYS Specimen Anatomical Collection Method Collection Time Receive d Time (Source) Location / / Volume Laterality 03/14/2009 1:49 AM 9 2:00 SUEDING MACHINE TENDER AM SUEDING MACHINE TENDER [facility] LAB - BLOOD ORDERABLES Performing Organization Address City/State/[facility] Phon e Number MISYS (ABNORMAL) Potassium (03/14/2009 1:49 AM SUEDING MACHINE TENDER) athologist Signature Potassium 6.0 (H) 3.4 - 5.3 MISYS mmol/L Specimen Anatomical Collection Method Collection Time Receive d Time (Source) Location / / Volume Laterality 03/14/2009 1:49 AM 9 2:00 SUEDING MACHINE TENDER AM SUEDING MACHINE TENDER [facility] LAB - BLOOD ORDERABLES Performing Organization Address [facility] Phon e Number MISYS Partial thromboplastin time (03/14/2009 1:49 AM SUEDING MACHINE TENDER) athologist Signature PTT 32 22 - 37 sec MISYS Specimen Anatomical Collection Method Collection Time Receive d Time (Source) Location / / Volume Laterality 03/14/2009 1:49 AM 9 2:00 SUEDING MACHINE TENDER AM SUEDING MACHINE TENDER Authorizing Provider Result [facility] LAB - BLOOD ORDERABLES Performing Organization Address [facility] Phon e Number MISYS (ABNORMAL) Troponin I (03/14/2009 1:49 AM SUEDING MACHINE TENDER) Analysis Performed At Patho logist Time Signature Troponin I ES 0.163 (HH) 0.000 - MISYS 0.034 ug/L Comment: Critical Value called to and read back jessica SLATER (ICU) ON 03.14.09 AT 0246 BY Specimen Anatomical Collection Method Collection Time Receive d Time (Source) Location / / Volume Laterality 03/14/2009 1:49 AM 9 2:19 SUEDING MACHINE TENDER AM SUEDING MACHINE TENDER Authorizing Provider Result [facility] LAB - BLOOD ORDERABLES Performing Organization Address [facility] Phon e Number MISYS (ABNORMAL) Basic metabolic panel (03/14/2009 1:49 AM SUEDING MACHINE TENDER) Patholo gist Method Time Signature Sodium 128 (L) 133 - 144 MISYS mmol/L Potassium 5.9 (H) 3.4 - 5.3 MISYS mmol/L Chloride 85 (L) 94 - 109 MISYS mmol/L Carbon Dioxide 6 (LL) 20 - 32 MISYS mmol/L Glucose 117 (H) 60 - 99 MISYS mg/dL Urea Nitrogen 124 (H) 5 - 24 MISYS mg/dL Creatinine 17.69 (H) 0.66 - MISYS 1.25 mg/dL Comment: New IDMS-traceable calibration beginning 08/23/07 GFR Estimate Not Calculated >60 mL/min/1.7m2 MISYS GFR Estimate If Black Not Calculated >60 mL/min/1.7m2 MISYS Calcium 9.0 8.5 - 10.4 mg/dL MISYS Anion Gap 37 (H) 6 - 17 mmol/L MISYS Specimen Anatomical Collection Method Collection Time Receive d Time (Source) Location / / Volume Laterality 03/14/2009 1:49 AM 9 2:20 SUEDING MACHINE TENDER AM SUEDING MACHINE TENDER [facility] LAB - BLOOD ORDERABLES Performing Organization Address City/[facility]/[place] Code Phon e Number MISYS Magnesium (03/14/2009 1:49 AM SUEDING MACHINE TENDER) athologist Signature Magnesium 2.3 1.6 - 2.3 MISYS mg/dL Specimen Anatomical Collection Method Collection Time Receive d Time (Source) Location / / Volume Laterality 03/14/2009 1:49 AM 9 2:20 SUEDING MACHINE TENDER AM SUEDING MACHINE TENDER [facility] LAB - BLOOD ORDERABLES Performing Organization Address City/[facility]/ZIP Code Phon e Number MISYS (ABNORMAL) Blood gas arterial and oxyhgb (03/14/2009 12:32 AM SUEDING MACHINE TENDER) [facility] gist Method Time Signature pH Arterial 7.20 (L) 7.35 - MISYS 7.45 pH pCO2 Arterial 22 (L) 35 - 45 MISYS mm Hg pO2 Arterial 227 (H) 80 - 105 MISYS mm Hg Oxyhemoglobin 95 92 - 100 MISYS Arterial % Base Deficit Art 18.1 mmol/L MISYS Comment: Abnormal Result, Ref range: -9. 0 to 1.8 FIO2 10 MISYS Comment: Liters/minute Bicarbonate Arterial 9 (LL) 21 - 28 mmol/L MISY S Comment: Critical Value called to and read back jessica SAWYER (VIVIANA) ON 03.14.09 AT 0045 SL Specimen Anatomical Collection Method Collection Time Receive d Time (Source) Location / / Volume Laterality 03/14/2009 12:32 03/14/2009 AM SUEDING MACHINE TENDER 12:34 AM SUEDING MACHINE TENDER Haroldo Arnold MD LAB - BLOOD ORDERABLES Performing Organization Address City/State/ZIP [facility] Phon e Number MISYS (ABNORMAL) Routine UA with microscopic (03/14/2009 12:24 AM SUEDING MACHINE TENDER) Component Value Ref Test Analysis Performed At [facility] Range Method Time Signature Source Catheterized MISYS Urine Color Urine Straw MISYS Appearance Urine Slightly Cloudy MISYS Glucose Urine Negative NEG MISYS mg/dL Bilirubin Urine Negative NEG MISYS Ketones Urine 5 (A) NEG MISYS mg/dL Specific [place] 1.017 1.003 - MISYS Urine 1.035 Blood Urine Moderate (A) NEG MISYS pH Urine 5.5 5.0 - MISYS 7.0 pH Protein Albumin 100 (A) NEG MISYS Urine mg/dL Urobilinogen 2.0 0.0 - MISYS mg/dL 2.0 mg/dL Nitrite Urine Negative NEG MISYS Leukocyte Negative NEG MISYS Esterase Urine WBC Urine 7 (H) 0 - 2 MISYS /HPF RBC Urine 4 (H) 0 - 2 MISYS /HPF Hyaline Casts 4 (H) 0 - 2 MISYS /LPF Squamous <1 0 - 1 MISYS Epithelial /HPF /HPF Urine Calcium Oxalate Few (A) NEG /HPF MISYS Amorphous Few (A) NEG /HPF MISYS Crystals Mucous Urine Present (A) NEG /LPF MISYS Specimen Anatomical Collection Method Collection Time Receive d Time (Source) Location / / Volume Laterality 03/14/2009 12:24 03/14/2009 AM SUEDING MACHINE TENDER 12:25 AM SUEDING MACHINE TENDER Haroldo Arnold MD LAB - URINE ORDERABLES Performing Organization Address [facility] Phon e Number MISYS documented in this encounter Visit Diagnoses Not on filedocumented in this encounter Additional Health Concerns Infection Onset Date Last Indicated Resolved Time MRSA-Contact IsolationComment: 0 04/26/2021 11:03 AM SUEDING MACHINE TENDER Infection 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
--- OUTSIDE RECORDS SUMMARY | 2022-02-12 13:50 | XMS_ITS | Encounter Summary ---
:1960 Author Organization [facility] Address [address] [place] [id number] Care Team Providers Name Role Phone Unavailable Primary Care Provider Unavailable Encounter Details Date Type Department Care Team Description 03/14/2009 Historic Results INTERFACED REPORT Interface, Italo tai [...] Comme nts EKG 12 LEAD Routine 03/14/2009 2:10 AM Results f or this SERVICE ELECTRICIAN procedure are i n the results section . documented in this encounter Results EKG 12 LEAD (03/14/2009 2:10 AM SERVICE ELECTRICIAN) Component Value Ref Range Test Analysis Performed Pathologis t Method Time At Signature Ventricular Rate 124 BPM RADIOLOGY RESULTS Atrial Rate 124 BPM RADIOLOGY RESULTS NM Interval 146 ms RADIOLOGY RESULTS QRS Duration 104 ms RADIOLOGY RESULTS QT 302 ms RADIOLOGY RESULTS QTc 433 ms RADIOLOGY RESULTS P [place] 47 degrees RADIOLOGY RESULTS R AXIS -3 degrees RADIOLOGY RESULTS T [place] 8 degrees RADIOLOGY RESULTS Interpretation AGE AND GENDER SPECIFIC ECG ANALYSIS RADIOLOGY ECG Sinus tachycardia RESULTS Otherwise normal ECG Unconfirmed report - interpretation of this ECG is compute r generated - see medical record for final interpretation Specimen Anatomical Collection Method Collection Time Receive d Time (Source) Location / / Volume Laterality 03/14/2009 2:10 AM 9 SERVICE ELECTRICIAN 10:47 AM SERVICE ELECTRICIAN Transcripton Interface ECG ORDERABLES Performing Organization Address City/State/ZIP Code Phon e Number RADIOLOGY RESULTS documented in this encounter Visit Diagnoses Not on filedocumented in this encounter Additional Health Concerns Infection Onset Date Last Indicated Resolved Time MRSA-Contact IsolationComment: 0 04/26/2021 11:03 AM SERVICE ELECTRICIAN Infection 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
--- OUTSIDE RECORDS SUMMARY | 2022-02-12 13:50 | XMS_ITS | Encounter Summary ---
:1960 Author Organization [facility] Address [address] [place] [id number] Care Team Providers Name Role Phone Unavailable Primary Care Provider Unavailable Encounter Details Date Type Department Care Team Description 03/16/2009 Historic Notes INTERFACED REPORT Deep Alston MD [address] [place], [place] [address] (Wo rk) Social History Tobacco Use Types Packs/Day Years Used Date Smoking Tobacco: Never Alcohol Use Standard Drinks/Week Comments Yes 0 (1 standard drink = 0.6 oz pure alcoho l) socially approx 5 drinks/wk Sex Assigned at Date Recorded Not on file documented as of this encounter Progress Notes Liam Alston - 07/10/2010 3:24 PM CDT Subjective: Patient somnolent on vent. Intermittent agitation. No new problems overnight. Last 24 hours Vitals signs, imaging done, laboratory results were reviewed by me in [facility]. temp 97, HR high 40's to 50's, bp 126/77, oxygenating well GENERAL: Intubated, comfortable on vent PSYCH: sedated on vent. HEENT: PERRLA. Normal conjunctiva, nasal mucosa. ET tube in place NECK: Supple, no neck vein distention, adenopathy or bruits, normal thyroid. HEART: Normal S1, S2 with no murmur, no pericardial rub, S3 or S4. LUNGS: Clear to auscultation, normal Respiratory effort. Decreased BS left base. ABDOMEN: Soft, no hepatosplenomegaly, normal bowel sounds. EXTREMITIES: No pedal edema, +2 pulses bilateral and equal. SKIN: Dry to touch, No rash, wound or ulceration Assessement and Plan: 1. Acute renal failure. Likely secondary to dehydration and rhabdomyolysis. Improved with dialysis initially, now improving on own. BUN/creat 71/5.05 today. Renal following. Doubt he will need additional dialysis. 2. Severe metabolic acidosis with elevated anion gap. Resolved. 3. Respiratory failure due to above. Stable. On vent. Sedated. Check daily cxr while on vent. No evidence for pneumonia at this time. To somnolent and not cooperative enough to extubate today. 4. Afib with cardioversion in ED. No recurrence to this point. 5. Troponin elevation. Likely demand ischemia/non-q wave mi related to all of the above. No further w/u at this time. Consider eventual stress test at some point- likely as outpatient once closer to baseline. 6. ETOH dependence with acute withdrawal. Stable. 7. FEN. NPO on vent. Tube feeds through NG today. 8. MRSA colonization (nare swab positive). Precautions per protocol. 9. H/o gout. 10. H/o hypercholesterolemia. 11. H/o hypertension. 12. H/o previous GI bleed. On PPI Addendum Section 16:55 Entered By: LIAM ALSTON Developed fever to 101.3. CXR neg this am. Check UA, UC, and BCx X 2. Treat any abnml. If persists may warrant empiric abx pending blood cultures. [Signature] Author: LIAM ALSTON) [Signed 16:55] documented in this encounter Plan of Treatment Not on filedocumented as of this encounter Visit Diagnoses Not on filedocumented in this encounter Additional Health Concerns Infection Onset Date Last Indicated Resolved Time MRSA-Contact IsolationComment: 0 04/26/2021 11:03 AM ADMISSIONS SPECIALIST Infection 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
--- OUTSIDE RECORDS SUMMARY | 2022-02-12 13:50 | XMS_ITS | Encounter Summary ---
:1960 Author Organization [facility] Address [address] [place] [id number] Care Team Providers Name Role Phone Unavailable Primary Care Provider Unavailable Encounter Details Date Type Department Care Team Description 03/15/2009 Results Only [facility] Liam Traylor MD Hospital Results [address], [place] [address] (Wo rk) Social History [...] Procedure Name Priority Date/Time Associated Diagnosis Comme [facility] CHEST ONE VIEW Routine 03/15/2009 8:38 AM Resu lts for this STRATEGIC PLANNING SPECIALIST procedure are i n the results section. documented in this encounter Results CHEST X-RAY 1 VW (03/15/2009 8:38 AM STRATEGIC PLANNING SPECIALIST) Anatomical Region Laterality Modality Other Specimen (Source) Anatomical Collection Method Collection Time Re ceived Time Location / / Volume Laterality 03/15/2009 8:38 AM STRATEGIC PLANNING SPECIALIST Impressions 03/15/2009 12:28 PM STRATEGIC PLANNING SPECIALIST CHEST, ONE VIEW PORTABLE ?? Mar 15, 2009 , 8:38 AM HISTORY: Intubated patient. CHF. COMPARISON: Chest x-ray 03/14/2009. IMPRESSION: Cardiomegaly is unchanged. L ungs are grossly clear. Right IJ line is unchanged in position, as are the nasogastric tube and endotracheal tube. There is no pneumotho rax. Liam Traylor MD GENERAL IMAGING documented in this encounter Visit Diagnoses Not on filedocumented in this encounter Additional Health Concerns Infection Onset Date Last Indicated Resolved Time MRSA-Contact IsolationComment: 0 04/26/2021 11:03 AM STRATEGIC PLANNING SPECIALIST Infection 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
--- OUTSIDE RECORDS SUMMARY | 2022-02-12 13:50 | XMS_ITS | Encounter Summary ---
:1960 Author Organization [place] Address [address] [place] [address]. [place] [address] Care Team Providers Name Role Phone Unavailable Primary Care Provider Unavailable Encounter Details Date Type Department Care Team Description 03/15/2009 Emergency room [facility] Je Mendes MD [facility] Results [facility] [address] [place] [address] [place] [address] [phone] (Wo rk) Social History Tobacco Use Types Packs/Day Years Used Date Smoking Tobacco: Never Alcohol Use Standard Drinks/Week Comments Yes 0 (1 standard drink = 0.6 oz pure alcoho l) socially approx 5 drinks/wk Sex Assigned at Date Recorded Not on file documented as of this encounter Progress Notes Haroldo Mendes - 05/01/2009 6:26 AM [employer]KLIFT WHEEL [employer] FINAL CHIEF COMPLAINT: Shortness of breath and diarrhea. HISTORY OF PRESENT ILLNESS: Mr. Marcelino Brown is a very pleasant 48-year-old gentleman who notes that he has been feeling very poorly for the last week or so. He notes that he has absolutely no energy and what got him most concerned is that he had a syncopal episode at home last night and so his family compelled him to come into the Emergency Department. The patient notes that he was in his usual state of health until somewhere around a week ago he noted that he started to have some lower abdominal cramping and ended up having some looser stools. The patient notes that these loose stools have persisted throughout the week and that they become much more copious. The patient notes that he is ableto tolerate oral liquids without any difficulty but he notes that as soon as he eats or drinks anything that he immediately has diarrhea. The patient notes that it is yellowish/watery feces that is notnecessarily malodorous. He denies having any blood in it. The patient notes, however, that this has taken great toll on his overall state. He notes that 2 to 3 days ago he started to find that he was very weak and feeling very short of breath. He noted that even with minimal exertion that he had to stop and rest. He never had any chest pain to go along with this. The patient noted that last night he felt that he needed to have diarrhea in the middle of the night and when trying to get to the bathroom, he noted that he got very light-headed and slowly fell to the ground where he was unconscious for an unknown period of time. The patient notes though that he was able to crawl back into bed and did not think he laid on the floor for longer than 10 minutes. Today, the patient noted that he was barelyable to get out of bed secondary to his lethargy and tiredness. He then was compelled to come in by his family. The patient notes that other than his tiredness and diarrhea, that he has no other real complaints. He has not had any chest pain. He has not had any fevers or chills. He has not had any vomiting. He does note, however, that his urine output has been very poor, especially over the last 24 to 48 hours. The patient otherwise denies any other complaints at this time. PAST MEDICAL HISTORY: Pertinent for hypertension, hypercholesterolemia and severe alcoholism. He notes that he drinks about a fifth of booze a day. MEDICATIONS: He takes Lipitor, lisinopril and an unknown stomach medicine. ALLERGIES: No known drug allergies. SOCIAL HISTORY: The patient does not smoke or use street drugs. As mentioned above, he does drink daily. He notes that he has been too ill to drink as much as he normally does. He notes that he has only had 1 drink in the last 2 days. He denies though having any history of alcohol withdrawal seizures, though he will note that he does get tremulous if he does not drink every day. REVIEW OF SYSTEMS: GENERAL: No fevers or chills. EYES: No blurred vision or double vision. ENT: No earache, sore throat or runny nose RESPIRATORY: The patient has felt very short of breath, but he has had no cough or any sputum production. He denies any proximal nocturnal dyspnea. CARDIOVASCULAR: Positive for syncope but no chest pain. Positive dyspnea on exertion. GASTROINTESTINAL: Positive diarrhea. See HPI. GENITOURINARY: Decreased urine output but no pain with urination. MUSCULOSKELETAL: No focal joint pain, neck pain or back pain. SKIN: No rashes or pruritus. NEUROLOGIC: No focal weakness or numbness. Rest of the 12-point review systems was negative. PHYSICAL EXAMINATION: VITAL SIGNS: Blood pressure 103/51, heart rate per triage was markedly elevated at 141, respiratoryrate was also markedly elevated at 38, temperature 95.6 orally and he was satting per triage at 88% on room air, though the entire time that I was speaking to him on room air, he was satting in the 90s, though rather tachypneic. GENERAL: Mr. Brown is a 50-year-old gentleman who looks clinically moderately ill. He looks a little diaphoretic and a little wild-eyed. He also seems to be a little tremulous consistent with alcohol withdrawal. However, he is alert and oriented x3 and cooperative with me in my questioning. Eyes: Pupils are equal, round and react to light. Extraocular movements were intact. HEENT: The patient had no signs of rhinorrhea. He had very dry cracked mucous membranes. LYMPHATIC: The patient had no cervical lymphadenopathy in the anterior or posterior chains. CARDIOVASCULAR: Tachycardic but regular with no murmurs, gallops or rubs. RESPIRATORY: The patient had very wet-sounding lungs bilaterally with some wheezing throughout. He was tachypneic in the 30s and was speaking with 4 to 5 word dyspnea. GASTROINTESTINAL: Positive bowelsounds, soft, nontender, nondistended. GENITOURINARY: Normal external genitalia. MUSCULOSKELETAL: Full range of motion of all extremities without any real difficulty. SKIN: Dry butwarm. NEUROLOGIC: Cranial nerves II-XII were are all intact. He had normal sensation in all extremities and normal strength throughout. I did not assess his gait as he seemed to be rather tired in bed. He had 2+ patellar reflexes. The patient did have positive tongue fasciculations and appeared to be mildly tremulous throughout. He did not have any asterixis. PSYCHIATRIC: The patient had a wild- eyed appearance. He looked to be anxious and tremulous but as mentioned above he was able to converse with me. He was alert and oriented x3. He seemed to have decent judgment, though he had very poor insight intohis disease. He notes that he is the ER because my family thinks I may have had a heart attack because I passed out last night. LABORATORY AND DIAGNOSTICS: The patient had a very protracted ED course. He had multiple sets of labs. I ordered labs on him initially and they were drawn by nursing and sent to the laboratory, but the laboratory was not convinced that they were drawn appropriately. Therefore, they did not provide mewith any of his labs immediately except for an elevated troponin of 0.2 and a CBC that just showed ahematocrit a little low at 35 and platelet count was mildly low at 134,000, but was otherwise unremarkable. I also saw an initial BNP that was 5000, but then this was removed and thought to be laboratory error. He had a chest x-ray performed early on in his course which did show signs of increased pulmonary vasculature but it did not show any focal infiltrate or effusion. This was my preliminary readand the formal radiology read is still pending. After laboratory came down and redrew his labs. I then started to receive some of his worrisome lab tests. He had a hepatic panel that showed a mild bumpin his total bilirubin of 1.4 and AST elevated at 134. His chemistries were most worrisome; his initial Chem-7 showed a sodium 127, potassium of 6.1, chloride of 82, bicarbonate of less than 5, an anion gap of 39. He had a BUN of 123 and creatinine of 18.05. The patient had an ethanol level that was undetectable and his magnesium was low at 1.4. His BNP was elevated at 5480. Repeat troponin was elevated at 0.189. I was able to obtain a little urine from him once the catheter was placed and this shows 7 whites, 4 reds, moderate blood and a few casts. I also obtained an ABG fairly early in his courseshowing him to be acidotic at 7.2 with a pCO2 of 22 and bicarbonate of 9. His INR was mildly elevated at 1.19, PTT was normal at 32. The patient also had 2 further chest x- rays, one after an internal jugular central line was placed and one after an ET tube was placed. The ET tube was in appropriate position, the central line appeared to be a little deep and so this was pulled back. EKG #1: The patient had multiple EKGs while in the Emergency Department. His first EKG was obtainedwhen he initially arrived in the Emergency Department, which showed a sinus tachycardia with a rate of 124. It showed a normal axis and normal intervals other than the obvious tachycardia. He had no STelevation, depression or T-wave inversions concerning for ischemia. He also had no signs of peaked Twaves. He had no QRS widening. This was an unremarkable EKG other than his sinus tachycardia. EKG #2: I then obtained another EKG once I saw his potassium being markedly elevated. This just showed again a sinus tachycardia with a rate of 131. Again, there were no ST elevations, depressions or T-wave inversions concerning for ischemia. Again, there were no elevated T waves or wide QRS. EKG #3: The patient went into atrial fibrillation with rapid ventricular response. This showed a rate of 178. Again, though there was normal axis with this and he had normal intervals other than the obvious P-R interval, which I was unable to detect. He had no obvious ST elevations. There were some signs of possible ST depression, though again the rate is awfully fast throughout the precordial leads. There are also some T-wave inversions now in the lateral leads, but again with his rate being so fast, it is difficult to say for sure exactly if this was worrisome for any ischemia. This is an abnormal EKG especially due to the atrial fibrillation with rapid ventricular response. EKG #4: The patient did have a repeat EKG performed after he had been cardioverted and showed againreturn to sinus tachycardia with a rate of 124. It showed normal axis, normal intervals, no ST elevation or depression. There was no T-wave inversion or peaked T waves. There was no widening of his QRS. This was an unremarkable EKG other than sinus tachycardia. EMERGENCY DEPARTMENT COURSE/MEDICAL DECISION MAKING: His nursing notes were all reviewed and agreedwith. The patient received a large number of meds while in the department including initially 2 mg of Ativan, thiamine 100 mg p.o., folic acid 1 mg p.o. and a multivitamin p.o. He then received 2 more boluses of Ativan 2 mg IV. He then received an aspirin 162 mg p.o. He received Lasix 20 mg IV push and had an inch of nitropatch placed on his chest. He received magnesium sulfate 2 grams IV. The patient then received 2 grams of calcium gluconate, received 20 mg of etomidate and 100 mg of rocuronium, all of those IV. EMERGENCY DEPARTMENT COURSE: The patient received a total of approximately 2- 1/2 liters of fluid while in the ED. Mr. Brown had a very interesting course while in the Emergency Department. It was very difficult to exactly determine what was going on with him initially. After my initial history and physical withhim, he looked to simply be in alcohol withdrawal. He was tremulous and had not had a drink in a fewdays. He looked dry with his mucous membranes cracked. He was tachycardic and his blood pressure was mildly up. With this, I felt that we should be able to treat him simply with fluids and Ativan. The patient received a p.o. banana bag and a liter of normal saline wide open and had received now at this point 4 mg of Ativan. He did not, however, seem to be making any real significant inroads. At this point, he went to chest x-ray and when he came back, I looked at his film and was surprised to see that he had signs of pulmonary edema. He did sound a little wet to me on exam initially, but he definitely had engorged pulmonary vessels with no effusions. I was now concerned as to whether he was in newonset congestive heart failure. As mentioned above, his initial labs that were drawn were not conside red adequate and so laboratory had to come down and redraw all of his labs and resend them. They didhowever, post his initial CBC which was mostly unremarkable and a troponin and BNP which they then later retracted. However, his troponin was elevated at 0.2 and his BUN was markedly elevated now at greater than 5000. With these values, I switched my management to focus more on congestive heart failure. With this new concern, I gave him an aspirin and placed some nitropatch on his chest and gave him 20 mg of Lasix IV. I also asked nursing to place a Tillman. With this Tillman being placed though he had very little urine out, less than 100 cc. He furthermore made no further urine his entire time in the Emergency Department. He also seemed to be becoming more tachypneic, though his oxygen levels continued to do fairly well in the mid to high 90s on room air. Now with his elevated troponin greatly elevated BNP, chest x-ray and increased respiratory rate, I asked respiratory to come down and put him on some BiPAP to try to improve his breathing. Also now he had received 6 of Ativan and was seeming to prachi little more confused. I noted that we should not give him further Ativan at this point as I did not want to drop his respiratory drive. With this congestive heart failure type management though, he did not again have any significant improvement. Finally, though at this point his labs started to retur n to give us a better picture of exactly what was going on. The patient is in severe renal failure. His potassium was markedly elevated at 6.1, creatinine of 18 and he is very acidotic. I did not have a good explanation for why he would be so acidotic with this. AKA or rhabdo came to mind. Nonetheless, it became very apparent that he needed to be treated for these things. He immediately got 2 grams of calcium to help stabilize his cardiac membranes. I also got a repeat EKG at that point that again did not show any peaked T waves or wide QRS. At this point, I needed more information as well as to his fluid status, though likely was markedly elevated. I was also concerned about with this bicarbonate of less than 5 as to exactly what his acid base status was. I performed an ABG in the left arm to look at this and found him as mentioned above to be acidotic at 7.2 with low pCO2. The patient seemed to at this point continue to become more combative and more confused. Restraints had to be placed as he kept trying to pull out his Tillman and pull off his EKG leads. He was certainly heading down hill from a mental status standpoint compared to where he was initially. The patient needs further intervention at this point and so I chose to put in a central line for better access and for further information about his fluid status level. Central line was placed without any difficulty. However, now at this point, the patient again was very agitated, wild and writhing about in bed. I asked that he receive a couple more mg of Ativan as I still felt that alcohol withdrawal was a part of his constellation of symptoms. However, after receiving this next 2 mg of Ativan, the patient now had a significant change in his respiratory status. It is unclear whether this last bit of Ativan pushed him over the edge to drop his respiratory drive, but he now was no longer bleeding at 30, but dropped his respiratory rate now down into the teens. His oxygen levels started to fall from the high 90s, now down into the high 80s. It became very apparent he was going to require intubation at this point. I asked that we transfer him into a front room and I provided jaw thrust whilerespiratory therapy assisted with ventilation. Upon moving him into a front room, I rapid sequence intubated him using rocuronium because of his high potassium along with a touch of etomidate. This went off without a hitch. His tube and lines were all confirmed by x-ray and his line was pulled back faby e. The patient developed a new problem at this point. Instead of simply being tachycardic in the 120s to 130s, he now became very tachycardic with atrial fibrillation with rapid ventricular response. Notonly did his heart rate spike into the 180s, but now his blood pressure tanked. At its lowest it wasa 162/40. Even though he was fluid overloaded and having anuric renal failure, I had no choice but to give him some fluid with a total of 500 cc bolus given and his pressure responded somewhat to this into the 80/40. His rapid ventricular response would go between the 150s to 190s. An arterial line was placed into his right groin which confirmed these pressures. It was apparent though again that he was unstable likely secondary to his tachycardia. I felt compelled to electro-cardiovert him at this point that when he was in sinus he had a decent pressure and now that he is in atrial fibrillation that he just simply is not getting the coordinated squeeze that he needs. He was cardioverted finally into sinus tachycardia after 200 joules and with this his pressure responded immediately and came up into the low 100s systolic over 60s diastolic. I discussed this gentleman's case with Dr. Carpenter, right around midnight. I explained to Dr. Beltre I felt he was likely going to need emergent dialysis and I asked him to talk to the Nephrology team to get them in and get everything fired up that needed to be to get him emergent dialysis tonight. This was during the time that I was placing his central line and of course the patient significantly decompensated from there. After the patient was a little more stabilized, but before he was cardioverted, Dr. Carpenter noted that the train driver thought that the patient was likely in rhabdo and was unlikely to require emergent dialysis tonight. He recommended fluid and stabilization resuscitation and that he would be seen in the morning. This greatly concern me as I felt that Mr. Brown met multiple criteria for emergent dialysis tonight. I, therefore, called the train driver back and explained to him my great concerns for Mr. Brown. I requested that he come in and evaluate the patient tonight immediately and he agreed to do so and was fairly quickly at the bedside within a period of 30 minutes of me talking to him and was making preparations the last that I spoke to him. The patient was transferred to ICU in fairly stable condition. He was now in sinus tachycardia with a decent blood pressure and not requiring pressors. He was not receiving any further fluids at this point. His ventilator was set at a fairly high rate to help him continue to blow off the 02 in his state of metabolic acidosis. His repeat arterial blood gas is still pending at the time of this dictation as to how much improvement we were making in his status. I did not feel that the patient required insulin and glucose or other hyperkalemia treatment considering that his potassium went from 6.1 down to 5.9 and he had no overt EKG findings concerning for high potassium. He did, however, receive the calcium gluconate immediately upon me finding his elevated potassium. He did receive an aspirin before he eventually ended up losing his airway for his elevated troponin. I think this is likely demand ischemia. I do not think that he is actually in congestive heart failure secondary to his heart not working, it seems morelikely that this is all secondary to his anuric renal failure. A very broad differential was kept and had to be worked through during his stay in the department, but by the time of his admission, most of these issues had been investigated and were addressed to the point that they needed to be in the Emergency Department. Again, the final concerning question was why Mr. Brown became so acidotic. It is unclear if this is all from rhabdomyolysis or whether he possibly ingested some toxic alcohol. Thescreening for that test is still pending as well. PROCEDURES: 1. Central line placement: Emergent consent was implied. The right side of the neck was prepped anddraped in a sterile fashion. Using ultrasound-guidance in a sterile fashion, I initially injected some lidocaine to numb up the area and then using ultrasound-guidance, I was able to obtain access to the right IJ. Using Seldinger technique, I placed a triple lumen catheter and sewed it into place. This was then covered sterilely with a dressing. The patient tolerated the procedure well. Central line placement was verified with a chest x-ray. It was in a little deep and so this was pulled back by approximately 4 cm. 2. Endotracheal intubation: The patient was initially hyperventilated up to an oxygen saturation of 100% with appropriate nitrogen washout. He was given 100 mg of rocuronium and 20 mg of etomidate for RSI. Using direct laryngoscopy, I was able to visualize the cords and passed an 8-0 tube through the cords without any difficulty. This was verified with a CO2 detector, fog in the tube,bilateral chest rise with normal sounds by auscultation in no auscultation of sounds over the stomach. The tube was then secured in place and verified with a chest x-ray. 3. Arterial line placement: Emergent consent was implied. The right groin was prepped and draped in sterile fashion. Using sterile technique, I was able to obtain access to the right artery the right femoral artery. Using the Seldinger technique I cannulated the vessel. This was then hooked up to an arterial line and showed excellent wave form. This line was then sutured into place. The patient tolerated this well. 4. Electrocardioversion: An EKG was obtained showing atrial fibrillation with a rapid ventricular response and a very poor blood pressure. Pacer pads were put in place and the patient was already sedated from his recent intubation. He was shocked a total of 4 times. He was shocked initially at 50, then at 75, 100 andfinally at 200 joules. Finally, with shocking at 200 joules, he cardioverted into sinus tachycardia and his blood pressure came up appropriately. A repeat EKG was taken showing sinus tachycardia with no significant abnormalities. DIAGNOSES: 1. Severe metabolic acidosis. 2. Acute anuric renal failure. 3. Alcohol withdrawal. 4. Troponin leak. 5. Respiratory failure. 6. Rhabdomyolysis. CRITICAL CARE TIME: Was 90 minutes exclusive of all procedures. Electronically signed on 05/01/2009 06:25 by HAROLDO MENDES MD MT: [id number] Name: ELIJAH BROWN MRN: [id number] Account: [id number] : 1960 Visit Date: Document: [id number] [employer] WHEEL [employer]ER documented in this encounter Plan of Treatment Not on filedocumented as of this encounter Visit Diagnoses Not on filedocumented in this encounter Additional Health Concerns Infection Onset Date Last Indicated Resolved Time MRSA-Contact IsolationComment: 0 04/26/2021 11:03 AM [employer] WHEEL LO[employer] Infection 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
--- OUTSIDE RECORDS SUMMARY | 2022-02-12 13:50 | XMS_ITS | Encounter Summary ---
:1960 Author Organization [facility] Address [address] [place] [id number] Care Team Providers Name Role Phone Unavailable Primary Care Provider Unavailable Encounter Details Date Type Department Care Team Description 03/15/2009 Historic Results [facility]Gianni Church MD Hospitalists [address] [place], [place] [address] (Wo rk) Social History [...] Associated Comments Diagnosis GLUCOSE BY METER Routine 03/15/2009 7:49 PM Resul ts for this HOME HEALTH TRAVEL OT procedure are i n the results section. GLUCOSE BY METER Routine 03/15/2009 4:01 PM Resul ts for this HOME HEALTH TRAVEL OT procedure are i n the results section. GLUCOSE BY METER Routine 03/15/2009 11:58 AM Resu lts for this HOME HEALTH TRAVEL OT procedure are i n the results section. BLOOD GAS ARTERIAL Routine 03/15/2009 8:45 AM Res ults for this AND OXYHGB HOME HEALTH TRAVEL OT procedure are i n the results section. PHOSPHORUS Routine 03/15/2009 5:30 AM Results f or this HOME HEALTH TRAVEL OT procedure are i n the results section. MAGNESIUM Routine 03/15/2009 5:30 AM Results f or this HOME HEALTH TRAVEL OT procedure are i n the results section. CK TOTAL Routine 03/15/2009 5:30 AM Results f or this HOME HEALTH TRAVEL OT procedure are i n the results section. BASIC METABOLIC Routine 03/15/2009 5:30 AM Result s for this PANEL HOME HEALTH TRAVEL OT procedure are i n the results section. CBC WITH PLATELETS Routine 03/15/2009 5:30 AM Res ults for this HOME HEALTH TRAVEL OT procedure are i n the results section. BLOOD GAS ARTERIAL Routine 03/15/2009 4:20 AM Res ults for this AND OXYHGB HOME HEALTH TRAVEL OT procedure are i n the results section. GLUCOSE BY METER Routine 03/15/2009 4:01 AM Resul ts for this HOME HEALTH TRAVEL OT procedure are i n the results section. documented in this encounter Results (ABNORMAL) Glucose by meter (03/15/2009 7:49 PM HOME HEALTH TRAVEL OT) athologist Signature Glucose 160 (H) 60 - 99 MISYS mg/dL Specimen Anatomical Collection Method Collection Time Receive d Time (Source) Location / / Volume Laterality 03/15/2009 7:49 PM 9 8:20 HOME HEALTH TRAVEL OT PM HOME HEALTH TRAVEL OT Kaiden REHMAN - JESICA POCT Performing Organization Address [facility] Phon e Number MISYS (ABNORMAL) Glucose by meter (03/15/2009 4:01 PM HOME HEALTH TRAVEL OT) athologist Signature Glucose 159 (H) 60 - 99 MISYS mg/dL Specimen Anatomical Collection Method Collection Time Receive d Time (Source) Location / / Volume Laterality 03/15/2009 4:01 PM 9 4:25 HOME HEALTH TRAVEL OT PM HOME HEALTH TRAVEL OT Kaiden REHMAN - JESICA POCT Performing Organization Address [facility] Phon e Number MISYS (ABNORMAL) Glucose by meter (03/15/2009 11:58 AM HOME HEALTH TRAVEL OT) athologist Signature Glucose 127 (H) 60 - 99 MISYS mg/dL Specimen Anatomical Collection Method Collection Time Receive d Time (Source) Location / / Volume Laterality 03/15/2009 11:58 03/15/2009 AM HOME HEALTH TRAVEL OT 12:20 PM HOME HEALTH TRAVEL OT Kaiden MOONEY POCT Performing Organization Address [facility] Phon e Number MISYS (ABNORMAL) Blood gas arterial and oxyhgb (03/15/2009 8:45 AM HOME HEALTH TRAVEL OT) [facility] Method Time Signature pH Arterial 7.44 7.35 - MISYS 7.45 pH pCO2 Arterial 36 35 - 45 MISYS mm Hg pO2 Arterial 154 (H) 80 - 105 MISYS mm Hg Oxyhemoglobin 95 92 - 100 MISYS Arterial % Base Excess Art 0.9 mmol/L MISYS Comment: Reference range: -9.0 to 1.8 FIO2 40% MISYS Comment: Ventilator CMV/R 13/VT 650/P 5 Bicarbonate Arterial 24 21 - 28 mmol/L MISY S Specimen Anatomical Collection Method Collection Time Receive d Time (Source) Location / / Volume Laterality 03/15/2009 8:45 AM 9 5:04 HOME HEALTH TRAVEL OT AM HOME HEALTH TRAVEL OT Provider Unknown LAB - BLOOD ORDERABLES Performing Organization Address City/State/ZIP Code Phon e Number MISYS (ABNORMAL) Basic metabolic panel (03/15/2009 5:30 AM HOME HEALTH TRAVEL OT) Analysis Performed At [facility] Time Signature Sodium 134 133 - 144 MISYS mmol/L Potassium 4.3 3.4 - 5.3 MISYS mmol/L Chloride 90 (L) 94 - 109 MISYS mmol/L Carbon Dioxide 21 20 - 32 MISYS mmol/L Glucose 126 (H) 60 - 99 MISYS mg/dL Urea Nitrogen 71 (H) 5 - 24 MISYS mg/dL Creatinine 8.42 (H) 0.66 - MISYS 1.25 mg/dL Comment: New IDMS-traceable calibration beginning 08/23/07 GFR Estimate 7 (L) >60 mL/min/1.7m2 MISYS GFR Estimate If Black 8 (L) >60 mL/min/1.7m2 M ISYS Calcium 7.7 (L) 8.5 - 10.4 mg/dL MISYS Anion Gap 23 (H) 6 - 17 mmol/L MISYS Specimen (Source) Anatomical Collection Method Collection Time Re ceived Time Location / / Volume Laterality 03/15/2009 5:30 AM 9 HOME HEALTH TRAVEL OT Brian Turner MD LAB - BLOOD ORDERABLES Performing Organization Address City/State/ZIP Code Phon e Number MISYS (ABNORMAL) CBC with platelets (03/15/2009 5:30 AM HOME HEALTH TRAVEL OT) Analysis Performed At [facility] Time Signature MCV 94 78 - 100 MISYS fl MCH 33.9 (H) 26.5 - MISYS 33.0 pg MCHC 36.2 31.5 - MISYS 36.5 g/dL RDW 15.7 (H) 10.0 - MISYS 15.0 % WBC 5.7 4.0 - 11.0 MISYS 10e9/L RBC Count 2.86 (L) 4.4 - 5.9 MISYS 10e12/L Hemoglobin 9.7 (L) 13.3 - MISYS 17.7 g/dL Hematocrit 26.8 (L) 40.0 - MISYS 53.0 % Platelet Count 130 (L) 150 - 450 MISYS 10e9/L Specimen (Source) Anatomical Collection Method Collection Time Re ceived Time Location / / Volume Laterality 03/15/2009 5:30 AM 9 HOME HEALTH TRAVEL OT Brian Turner MD LAB - BLOOD ORDERABLES Performing Organization Address City/State/ZIP Code Phon e Number MISYS (ABNORMAL) CK total (03/15/2009 5:30 AM HOME HEALTH TRAVEL OT) P athologist Signature CK Total 705 (H) 45 - 300 MISYS U/L Specimen (Source) Anatomical Collection Method Collection Time Re ceived Time Location / / Volume Laterality 03/15/2009 5:30 AM 9 HOME HEALTH TRAVEL OT Brian Turner MD LAB - BLOOD ORDERABLES Performing Organization Address City/[facility]/ZIP Code Phon e Number MISYS Magnesium (03/15/2009 5:30 AM HOME HEALTH TRAVEL OT) athologist Signature Magnesium 1.8 1.6 - 2.3 MISYS mg/dL Specimen (Source) Anatomical Collection Method Collection Time Re ceived Time Location / / Volume Laterality 03/15/2009 5:30 AM 9 HOME HEALTH TRAVEL OT Brian Turner MD LAB - BLOOD ORDERABLES Performing Organization Address City/State/ZIP Code Phon e Number MISYS Phosphorus (03/15/2009 5:30 AM HOME HEALTH TRAVEL OT) P athologist Signature Phosphorus 4.4 2.5 - 4.5 MISYS mg/dL Specimen (Source) Anatomical Collection Method Collection Time Re ceived Time Location / / Volume Laterality 03/15/2009 5:30 AM 9 HOME HEALTH TRAVEL OT Brian Turner MD LAB - BLOOD ORDERABLES Performing Organization Address City/State/ZIP Code Phon e Number MISYS (ABNORMAL) Blood gas arterial and oxyhgb (03/15/2009 4:20 AM HOME HEALTH TRAVEL OT) Patholo gist Method Time Signature pH Arterial 7.51 (H) 7.35 - MISYS 7.45 pH pCO2 Arterial 28 (L) 35 - 45 MISYS mm Hg pO2 Arterial 177 (H) 80 - 105 MISYS mm Hg Oxyhemoglobin 94 92 - 100 MISYS Arterial % Base Excess Art 0.0 mmol/L MISYS Comment: Reference range: -9.0 to 1.8 FIO2 40% MISYS Comment: Ventilator CMV /R 16/VT 650/P 5 Bicarbonate Arterial 22 21 - 28 mmol/L MISY S Specimen (Source) Anatomical Collection Method Collection Time Re ceived Time Location / / Volume Laterality 03/15/2009 4:20 AM 9 HOME HEALTH TRAVEL OT Brian Turner MD LAB - BLOOD ORDERABLES Performing Organization Address City/State/ZIP Code Phon e Number MISYS (ABNORMAL) Glucose by meter (03/15/2009 4:01 AM HOME HEALTH TRAVEL OT) P athologist Signature Glucose 173 (H) 60 - 99 MISYS mg/dL Specimen Anatomical Collection Method Collection Time Receive d Time (Source) Location / / Volume Laterality 03/15/2009 4:01 AM 9 5:15 HOME HEALTH TRAVEL OT AM HOME HEALTH TRAVEL OT Kaiden Carpenter MD LAB - BEAKER POCT Performing Organization Address City/State/ZIP Code Phon e Number MISYS documented in this encounter Visit Diagnoses Not on filedocumented in this encounter Additional Health Concerns Infection Onset Date Last Indicated Resolved Time MRSA-Contact IsolationComment: 0 04/26/2021 11:03 AM HOME HEALTH TRAVEL OT Infection 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
--- OUTSIDE RECORDS SUMMARY | 2022-02-12 13:50 | XMS_ITS | Encounter Summary ---
:1960 Author Organization [facility] Address [address] [place] [id number] Care Team Providers Name Role Phone Unavailable Primary Care Provider Unavailable Encounter Details Date Type Department Care Team Description 03/17/2009 Results Only [facility] Liam Traylor MD Hospital Results [address], [place] [phone] (Wo rk) Social History [...] Procedure Name Priority Date/Time Associated Diagnosis Comme [facility] CHEST ONE VIEW Routine 03/17/2009 1:26 PM Resu lts for this STABLE HELPER procedure are i n the results section. documented in this encounter Results CHEST X-RAY 1 VW (03/17/2009 1:26 PM STABLE HELPER) Anatomical Region Laterality Modality Other Specimen (Source) Anatomical Collection Method Collection Time Re ceived Time Location / / Volume Laterality 03/17/2009 1:26 PM STABLE HELPER Impressions 03/18/2009 5:29 PM STABLE HELPER CHEST ONE VIEW PORTABLE ??March 17 009 at 1:26 PM HISTORY: Acute renal failure. Fever. On ventilator. FINDINGS: Comparison is made with prior film from yesterday. Endotracheal tube is seen with the tip a t the level of the clavicle. Right-sided venous line is seen with the tip projecting just above the right atrium. Feeding tube tip is not cl early identified. Lung lazo are clear. There is shallow inspiration. Liam Traylor MD GENERAL IMAGING documented in this encounter Visit Diagnoses Not on filedocumented in this encounter Additional Health Concerns Infection Onset Date Last Indicated Resolved Time MRSA-Contact IsolationComment: 0 04/26/2021 11:03 AM STABLE HELPER Infection 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
--- OUTSIDE RECORDS SUMMARY | 2022-02-12 13:50 | XMS_ITS | Encounter Summary ---
:1960 Author Organization [facility] Address [address] [place] [address] Care Team Providers Name Role Phone Unavailable [...] Comme nts EKG 12 LEAD Routine 03/14/2009 2:09 AM Results f or this RECEIVING ASSOCIATE procedure are i n the results section . documented in this encounter Results EKG 12 LEAD (03/14/2009 2:09 AM RECEIVING ASSOCIATE) Component Value Ref Range Test Analysis Performed Pathologis t Method Time At Signature Ventricular Rate 126 BPM RADIOLOGY RESULTS Atrial Rate 126 BPM RADIOLOGY RESULTS SD Interval 148 ms RADIOLOGY RESULTS QRS Duration 104 ms RADIOLOGY RESULTS QT 282 ms RADIOLOGY RESULTS QTc 408 ms RADIOLOGY RESULTS P [place] 44 degrees RADIOLOGY RESULTS R AXIS -3 degrees RADIOLOGY RESULTS T [place] 3 degrees RADIOLOGY RESULTS Interpretation AGE AND GENDER SPECIFIC ECG ANALYSIS RADIOLOGY ECG Sinus tachycardia RESULTS Otherwise normal ECG Unconfirmed report - interpretation of this ECG is compute r generated - see medical record for final interpretation Specimen Anatomical Collection Method Collection Time Receive d Time (Source) Location / / Volume Laterality 03/14/2009 2:09 AM 9 RECEIVING ASSOCIATE 10:47 AM RECEIVING ASSOCIATE Transcripton Interface ECG ORDERABLES Performing Organization Address City/State/ZIP Code Phon e Number RADIOLOGY RESULTS documented in this encounter Visit Diagnoses Not on filedocumented in this encounter Additional Health Concerns Infection Onset Date Last Indicated Resolved Time MRSA-Contact IsolationComment: 0 04/26/2021 11:03 AM RECEIVING ASSOCIATE Infection 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
--- OUTSIDE RECORDS SUMMARY | 2022-02-12 13:50 | XMS_ITS | Encounter Summary ---
:1960 Author Organization [facility] Address [address] [place] [address] Care Team Providers Name Role Phone Unavailable Primary Care Provider Unavailable Encounter Details Date Type Department Care Team Description 03/17/2009 Historic Results [facility]-Gianni Church MD Hospitalists [address] [place], [place] [phone] (Wo rk) Social History [...] Associated Comments Diagnosis GLUCOSE BY METER Routine 03/17/2009 8:24 PM Resul ts for this PHARMACY TECHNOLOGIST procedure are i n the results section. GLUCOSE BY METER Routine 03/17/2009 4:02 PM Resul ts for this PHARMACY TECHNOLOGIST procedure are i n the results section. GLUCOSE BY METER Routine 03/17/2009 12:17 PM Resu lts for this PHARMACY TECHNOLOGIST procedure are i n the results section. GLUCOSE BY METER Routine 03/17/2009 8:10 AM Resul ts for this PHARMACY TECHNOLOGIST procedure are i n the results section. C DIFFICILE TOXIN A Routine 03/17/2009 5:50 AM Re sults for this AND B ([facility]) PHARMACY TECHNOLOGIST procedure are in the results section. C DIFFICILE CULTURE Routine 03/17/2009 5:50 AM Re sults for this PHARMACY TECHNOLOGIST procedure are i n the results section. PHOSPHORUS Routine 03/17/2009 5:25 AM Results f or this PHARMACY TECHNOLOGIST procedure are i n the results section. MAGNESIUM Routine 03/17/2009 5:25 AM Results f or this PHARMACY TECHNOLOGIST procedure are i n the results section. HEPATIC FUNCTION Routine 03/17/2009 5:25 AM Resul ts for this PANEL PHARMACY TECHNOLOGIST procedure are i n the results section. CK TOTAL Routine 03/17/2009 5:25 AM Results f or this PHARMACY TECHNOLOGIST procedure are i n the results section. BASIC METABOLIC Routine 03/17/2009 5:25 AM Result s for this PANEL PHARMACY TECHNOLOGIST procedure are i n the results section. CBC WITH PLATELETS Routine 03/17/2009 5:25 AM Res ults for this PHARMACY TECHNOLOGIST procedure are i n the results section. GLUCOSE BY METER Routine 03/17/2009 4:05 AM Resul ts for this PHARMACY TECHNOLOGIST procedure are i n the results section. documented in this encounter Results (ABNORMAL) Glucose by meter (03/17/2009 8:24 PM PHARMACY TECHNOLOGIST) P athologist Signature Glucose 206 (H) 60 - 99 MISYS mg/dL Specimen Anatomical Collection Method Collection Time Receive d Time (Source) Location / / Volume Laterality 03/17/2009 8:24 PM 9 8:40 PHARMACY TECHNOLOGIST PM PHARMACY TECHNOLOGIST Kaiden REHMAN - JESICA POCT Performing Organization Address [facility] Phon e Number MISYS (ABNORMAL) Glucose by meter (03/17/2009 4:02 PM PHARMACY TECHNOLOGIST) athologist Signature Glucose 175 (H) 60 - 99 MISYS mg/dL Specimen Anatomical Collection Method Collection Time Receive d Time (Source) Location / / Volume Laterality 03/17/2009 4:02 PM 9 4:15 PHARMACY TECHNOLOGIST PM PHARMACY TECHNOLOGIST Kaiden REHMAN - JESICA POCT Performing Organization Address [facility] Phon e Number MISYS (ABNORMAL) Glucose by meter (03/17/2009 12:17 PM PHARMACY TECHNOLOGIST) athologist Signature Glucose 163 (H) 60 - 99 MISYS mg/dL Comment: RN/Dr notified Specimen Anatomical Collection Method Collection Time Receive d Time (Source) Location / / Volume Laterality 03/17/2009 12:17 03/17/2009 1:15 PM PHARMACY TECHNOLOGIST PM PHARMACY TECHNOLOGIST Kaiden MOONEY POCT Performing Organization Address [facility] Phon e Number MISYS (ABNORMAL) Glucose by meter (03/17/2009 8:10 AM PHARMACY TECHNOLOGIST) P athologist Signature Glucose 185 (H) 60 - 99 MISYS mg/dL Specimen Anatomical Collection Method Collection Time Receive d Time (Source) Location / / Volume Laterality 03/17/2009 8:10 AM 9 8:16 PHARMACY TECHNOLOGIST AM PHARMACY TECHNOLOGIST Kaiden Carpenter MD LAB - BEAKER POCT Performing Organization Address [facility] Phon e Number MISYS C difficile culture (03/17/2009 5:50 AM PHARMACY TECHNOLOGIST) Patholo gist Method Time Signature Specimen Feces MISYS Descrip C Difficile Light growth MISYS Culture Clostridium difficile Specimen Anatomical Collection Method Collection Time Receive d Time (Source) Location / / Volume Laterality 03/17/2009 5:50 AM 9 5:59 PHARMACY TECHNOLOGIST AM PHARMACY TECHNOLOGIST Kaiden Carpenter MD LAB - MICRO GENERAL ORDERABL ES Performing Organization Address [facility] Phon e Number MISYS C difficile toxin A and B (03/17/2009 5:50 AM PHARMACY TECHNOLOGIST) Patholo gist Method Time Signature Specimen Feces MISYS Description C. Difficile Equivocal for MISYS Toxin A & B Clostridium difficile toxin A and/or B. Consider submitting a new Comment: specimen if clinically suspect Clostrid ium difficile asociated diarrhea/colitis. This FDA approved qualitative enzyme im munoassay will detect toxin A at levels ofgreater than or equal to 7.7 ng (fior grams)/mL stooland toxin B at levels of greater than or equal to 4.5 ng (nanogr ams)/mL stool. Specimen Anatomical Collection Method Collection Time Receive d Time (Source) Location / / Volume Laterality 03/17/2009 5:50 AM 9 6:10 PHARMACY TECHNOLOGIST AM PHARMACY TECHNOLOGIST Kaiden Carpenter MD LAB - BLOOD ORDERABLES Performing Organization Address [facility] Phon e Number MISYS (ABNORMAL) CBC with platelets (03/17/2009 5:25 AM PHARMACY TECHNOLOGIST) Analysis Performed At Patho logist Time Signature MCV 93 78 - 100 MISYS fl MCH 31.1 26.5 - MISYS 33.0 pg MCHC 33.5 31.5 - MISYS 36.5 g/dL RDW 15.5 (H) 10.0 - MISYS 15.0 % WBC 6.3 4.0 - 11.0 MISYS 10e9/L RBC Count 3.02 (L) 4.4 - 5.9 MISYS 10e12/L Hemoglobin 9.4 (L) 13.3 - MISYS 17.7 g/dL Hematocrit 28.1 (L) 40.0 - MISYS 53.0 % Platelet Count 106 (L) 150 - 450 MISYS 10e9/L Specimen (Source) Anatomical Collection Method Collection Time Re ceived Time Location / / Volume Laterality 03/17/2009 5:25 AM 9 PHARMACY TECHNOLOGIST Brian Turner MD LAB - BLOOD ORDERABLES Performing Organization Address City/State/ZIP Code Phon e Number MISYS (ABNORMAL) Basic metabolic panel (03/17/2009 5:25 AM PHARMACY TECHNOLOGIST) Analysis Performed At Patho logist Time Signature Sodium 141 133 - 144 MISYS mmol/L Potassium 2.9 (L) 3.4 - 5.3 MISYS mmol/L Chloride 92 (L) 94 - 109 MISYS mmol/L Carbon Dioxide 37 (H) 20 - 32 MISYS mmol/L Glucose 120 (H) 60 - 99 MISYS mg/dL Urea Nitrogen 60 (H) 5 - 24 MISYS mg/dL Creatinine 2.17 (H) 0.66 - MISYS 1.25 mg/dL Comment: New IDMS-traceable calibration ??beginni ng 08/23/07 Reviewed, acceptable GFR Estimate 33 (L) >60 mL/min/1.7m2 MISYS GFR Estimate If Black 40 (L) >60 mL/min/1.7m2 M ISYS Calcium 8.2 (L) 8.5 - 10.4 mg/dL MISYS Anion Gap 12 6 - 17 mmol/L MISYS Specimen (Source) Anatomical Collection Method Collection Time Re ceived Time Location / / Volume Laterality 03/17/2009 5:25 AM 9 PHARMACY TECHNOLOGIST Brian Turner MD LAB - BLOOD ORDERABLES Performing Organization Address City/State/ZIP Code Phon e Number MISYS Magnesium (03/17/2009 5:25 AM PHARMACY TECHNOLOGIST) P athologist Signature Magnesium 1.6 1.6 - 2.3 MISYS mg/dL Specimen (Source) Anatomical Collection Method Collection Time Re ceived Time Location / / Volume Laterality 03/17/2009 5:25 AM 9 PHARMACY TECHNOLOGIST Brian Turner MD LAB - BLOOD ORDERABLES Performing Organization Address [facility] Phon e Number MISYS Phosphorus (03/17/2009 5:25 AM PHARMACY TECHNOLOGIST) athologist Signature Phosphorus 2.7 2.5 - 4.5 MISYS mg/dL Specimen (Source) Anatomical Collection Method Collection Time Re ceived Time Location / / Volume Laterality 03/17/2009 5:25 AM 9 PHARMACY TECHNOLOGIST Brian Turner MD LAB - BLOOD ORDERABLES Performing Organization Address [facility] Phon e Number MISYS (ABNORMAL) CK total (03/17/2009 5:25 AM PHARMACY TECHNOLOGIST) athologist Signature CK Total 475 (H) 45 - 300 MISYS U/L Specimen (Source) Anatomical Collection Method Collection Time Re ceived Time Location / / Volume Laterality 03/17/2009 5:25 AM 9 PHARMACY TECHNOLOGIST Brian Turner MD LAB - BLOOD ORDERABLES Performing Organization Address [facility] Phon e Number MISYS (ABNORMAL) Hepatic panel (03/17/2009 5:25 AM PHARMACY TECHNOLOGIST) Analysis Performed At Patho logist Time Signature AST 165 (H) 0 - 55 U/L MISYS Protein Total 6.4 (L) 6.8 - 8.8 MISYS g/dL Albumin 3.0 (L) 3.9 - 5.1 MISYS g/dL ALT 60 0 - 70 U/L MISYS Alkaline 185 (H) 40 - 150 MISYS Phosphatase U/L Bilirubin 0.2 0.0 - 0.3 MISYS Conjugated mg/dL Bilirubin Delta 0.7 (H) 0.0 - 0.4 MISYS mg/dL Bilirubin Total 1.2 0.2 - 1.3 MISYS mg/dL Specimen (Source) Anatomical Collection Method Collection Time Re ceived Time Location / / Volume Laterality 03/17/2009 5:25 AM 9 PHARMACY TECHNOLOGIST Richard Shirley MD LAB - BLOOD ORDERABLES Performing Organization Address City/State/ZIP Code Phon e Number MISYS (ABNORMAL) Glucose by meter (03/17/2009 4:05 AM PHARMACY TECHNOLOGIST) P athologist Signature Glucose 203 (H) 60 - 99 MISYS mg/dL Specimen Anatomical Collection Method Collection Time Receive d Time (Source) Location / / Volume Laterality 03/17/2009 4:05 AM 9 8:16 PHARMACY TECHNOLOGIST AM PHARMACY TECHNOLOGIST Kaiden Carpenter MD LAB - BEAKER POCT Performing Organization Address City/State/[facility] Code Phon e Number MISYS documented in this encounter Visit Diagnoses Not on filedocumented in this encounter Additional Health Concerns Infection Onset Date Last Indicated Resolved Time MRSA-Contact IsolationComment: 0 04/26/2021 11:03 AM PHARMACY TECHNOLOGIST Infection 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
--- OUTSIDE RECORDS SUMMARY | 2022-02-12 13:50 | XMS_ITS | Encounter Summary ---
:1960 Author Organization [facility] Address [address] [place] [id number] Care Team Providers Name Role Phone Unavailable Primary Care Provider Unavailable Encounter Details Date Type Department Care Team Description 03/14/2009 Results Only [facility] Haroldo Sandoval MD Hospital Results EMERGENCY [facility] [address] [place], [place] [id number] (Wo rk) Social History Tobacco Use Types [...] Priority Date/Time Associated Diagnosis Comme nts HC CHEST ONE VIEW Routine 03/14/2009 1:37 AM Resu lts for this PORTABLE PINCH RIVETER procedure are i n the results section. HC CHEST ONE VIEW Routine 03/14/2009 1:00 AM Resu lts for this PORTABLE PINCH RIVETER procedure are i n the results section. documented in this encounter Results CHEST X-RAY 1 VW (03/14/2009 1:37 AM PORTABLE PINCH RIVETER) Anatomical Region Laterality Modality Other Specimen (Source) Anatomical Collection Method Collection Time Re ceived Time Location / / Volume Laterality 03/14/2009 1:37 AM PORTABLE PINCH RIVETER Impressions 03/14/2009 9:51 PM PORTABLE PINCH RIVETER CHEST, ONE VIEW PORTABLE ??Mar 14, 2009, 1:37 AM HISTORY: Post intubation. COMPARISON: 03/14/2009 at 12:56 AM. FINDINGS: ET tube with tip well above th e belem. This has been placed since earlier today. Central venous line with tip in the SVC. NG tube with tip directed into the stomach also is new. IMPRESSION: NG tube and ET tube have bee n placed since earlier today. Haroldo Arnold MD GENERAL IMAGING CHEST X-RAY 1 VW (03/14/2009 1:00 AM PORTABLE PINCH RIVETER) Anatomical Region Laterality Modality Other Specimen (Source) Anatomical Collection Method Collection Time Re ceived Time Location / / Volume Laterality 03/14/2009 1:00 AM PORTABLE PINCH RIVETER Impressions 03/14/2009 9:51 PM PORTABLE PINCH RIVETER CHEST, ONE VIEW PORTABLE ??Mar 14, 2009, 1:00 AM HISTORY: Central line placement. COMPARISON: 03/13/2009 FINDINGS: Central line has been placed s chago yesterday from a right internal jugular approach, and the tip l ies in the mid SVC. No pneumothorax. Slight haziness over the l eft lung likely is due to shallow inspiration from the AP supine p ortable technique. Haroldo Arnold MD GENERAL IMAGING documented in this encounter Visit Diagnoses Not on filedocumented in this encounter Additional Health Concerns Infection Onset Date Last Indicated Resolved Time MRSA-Contact IsolationComment: 0 04/26/2021 11:03 AM PORTABLE PINCH RIVETER Infection 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
--- OUTSIDE RECORDS SUMMARY | 2022-02-12 13:50 | XMS_ITS | Encounter Summary ---
:1960 Author Organization [facility] Address [address] [place] [id number] Care Team Providers Name Role Phone Unavailable Primary Care Provider Unavailable Encounter Details Date Type Department Care Team Description 03/14/2009 Historic Notes INTERFACED REPORT Xu Wyatt MD [address] [facility] [address] [place] [address] (Wo rk) Social History Tobacco Use Types Packs/Day Years Used Date Smoking Tobacco: Never Alcohol Use Standard Drinks/Week Comments Yes 0 (1 standard drink = 0.6 oz pure alcoho l) socially approx 5 drinks/wk Sex Assigned at Date Recorded Not on file documented as of this encounter Progress Notes Brian Wyatt - 07/10/2010 3:30 PM CDT ICU Staff Pt is agitated this am despite propofol and fentanyl. PE: T max 99.6 HR 112, RR 40 (on vent), BP 106/60 (on 10 mcg norepi) UO: minimal, on dialysis this am HEENT: NC AT, pupils 2 mm, reactive ET tube in place Chest: CTA CV: sinus tachy Abd: soft Ext: good perfusion, no edema A/P: Likely acute renal failure: etiology unknown. Dialysis today EtOHism with withdrawal: Will add benzos on routine basis Delerium: propofol, will add dexmetatomidine Distributive shock: continue close titration of norepi Severe metabolic acidosis. Pt dialysed. Will also give 2 amps bicarb. Etiology a bit confusing. His myoglobin levels do not appear high enough to explain renal failure, although this may be delayed effect. recheck CK today, tomorrow. Is this a toxic cause? Nothing so far in tox screen. Respiratory failure: continue current vent support. 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
--- OUTSIDE RECORDS SUMMARY | 2022-02-12 13:50 | XMS_ITS | Encounter Summary ---
:1960 Author Organization [facility] Address [address] [place] [id number] Care Team Providers Name Role Phone Unavailable Primary Care Provider Unavailable Encounter Details Date Type Department Care Team Description 03/15/2009 Historic Notes INTERFACED REPORT Deep Alston MD [address] [place], [place] [address] (Wo rk) Social History Tobacco Use Types Packs/Day Years Used Date Smoking Tobacco: Never Alcohol Use Standard Drinks/Week Comments Yes 0 (1 standard drink = 0.6 oz pure alcoho l) socially approx 5 drinks/wk Sex Assigned at Date Recorded Not on file documented as of this encounter Progress Notes Liam Alston - 07/10/2010 3:27 PM CDT Subjective: Chart reviewed. 48 yo male. H/o HTN and ETOH abuse. Presented after 4 days of diarrhea and weakness. Developed shortness of breath. Had syncopal spell the day bevore admission. Pt was confused on initial presentation. He developed respiratory failure and was intubated in the ED. Pt went into A-fib in ED and was cardioverted. ED w/u showed: severe elevated anion gap metabolic acidosis, acute renal failure, hyperkalemia, troponin elevatioin, elevated CK and myoglobin, and low magnesium. Pt admitted to ICU on ventilator, sedated, on Norepinephrine. Renal has been consulted and patient has had hemodialysis. Last 24 hours Vitals signs, imaging done, [...] secondary to dehydration and rhabdomyolysis. Improved with dialysis. BUN/creat 71/8.42 today. CK down to 705. Continue IVF. Renal following. HD today? vs tomorrow per Renal. 2. Severe metabolic acidosis with elevated anion gap. Most likely due to etoh/starvation ketosis. Improving. Anion gap 23 and bicarb is 21 today. Monitor, 3. Respiratory failure due to above. Stable. On vent. Sedated. Check daily cxr while on vent. No evidence for pneumonia at this time. 4. Afib with cardioversion in ED. No recurrence to this point. 5. Troponin elevation. Likely demand ischemia/non-q wave mi related to all of the above. No further w/u at this time. Consider eventual stress test at some point- likely as outpatient once closer to baseline. 6. ETOH dependence with acute withdrawal. On propofol. 7. FEN. NPO on vent. Potassium corrected with HD. Magnesium replaced (1.8 today). Sodium normalized. 8. MRSA colonization (nare swab positive). Precautions per protocol. 9. H/o gout. 10. H/o hypercholesterolemia. 11. H/o hypertension. 12. H/o previous GI bleed. 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
--- OUTSIDE RECORDS SUMMARY | 2022-02-12 13:50 | XMS_ITS | Encounter Summary ---
:1960 Author Organization [facility] Address [address] [place] [address] Care Team Providers Name Role Phone Unavailable Primary Care Provider Unavailable Encounter Details Date Type Department Care Team Description 03/17/2009 Historic Notes INTERFACED REPORT Xu Wyatt MD [address] [facility] [address] [place], [place] [phone] (Wo rk) Social History Tobacco Use Types Packs/Day Years Used Date Smoking Tobacco: Never Alcohol Use Standard Drinks/Week Comments Yes 0 (1 standard drink = 0.6 oz pure alcoho l) socially approx 5 drinks/wk Sex Assigned at Date Recorded Not on file documented as of this encounter Progress Notes Brian Wyatt - 07/10/2010 3:21 PM CDT ICU Staff S: Pt awake, following commands O: VSS, Tmax 39.1 cultures pending I/O: 2500/2400, UO 1400 since [place] Chest: CTA Abd: soft Ext: no edema Clear yellow urine from rondon CK: 475 K: 2.9, Na 141, Bicarb 37, Specialty Therapist 2.2, WBC 6.3 A/P: Acute renal failure: resolving. Now with alkalosis. Folloow Na closely. May need to switch to 1/2 NS if Na increases. Respitratory failure: Pt much more awake today. 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
--- OUTSIDE RECORDS SUMMARY | 2022-02-12 13:50 | XMS_ITS | Encounter Summary ---
:1960 Author Organization [place] Address [address] [place] [address] Care Team Providers Name Role Phone Unavailable Primary Care Provider Unavailable Encounter Details Date Type Department Care Team Description 03/16/2009 Historic Results [facility] Liam Traylor [facility] [address] [place], [place] [address] (Wo rk) Social History [...] Associated Comments Diagnosis GLUCOSE BY METER Routine 03/16/2009 11:58 Results for this PM CHILD PROTECTIVE INVESTIGATOR procedure are i n the results section. GLUCOSE BY METER Routine 03/16/2009 8:09 PM Resul ts for this CHILD PROTECTIVE INVESTIGATOR procedure are i n the results section. ROUTINE UA WITH Routine 03/16/2009 5:10 PM Result s for this MICROSCOPIC CHILD PROTECTIVE INVESTIGATOR procedure are i n the results section. BLOOD CULTURE STAT 03/16/2009 5:10 PM Results for this CHILD PROTECTIVE INVESTIGATOR procedure are i n the results section. BLOOD CULTURE STAT 03/16/2009 5:10 PM Results for this CHILD PROTECTIVE INVESTIGATOR procedure are i n the results section. URINE CULTURE Routine 03/16/2009 5:10 PM Results for this CHILD PROTECTIVE INVESTIGATOR procedure are i n the results section. GLUCOSE BY METER Routine 03/16/2009 4:17 PM Resul ts for this CHILD PROTECTIVE INVESTIGATOR procedure are i n the results section. GLUCOSE BY METER Routine 03/16/2009 12:00 Results for this PM CHILD PROTECTIVE INVESTIGATOR procedure are i n the results section. GLUCOSE BY METER Routine 03/16/2009 7:56 AM Resul ts for this CHILD PROTECTIVE INVESTIGATOR procedure are i n the results section. CBC WITH PLATELETS & Routine 03/16/2009 6:15 AM R esults for this DIFFERENTIAL CHILD PROTECTIVE INVESTIGATOR procedure are i n the results section. PROTEIN TOTAL Routine 03/16/2009 6:15 AM Results for this CHILD PROTECTIVE INVESTIGATOR procedure are i n the results section. PREALBUMIN Routine 03/16/2009 6:15 AM Results f or this CHILD PROTECTIVE INVESTIGATOR procedure are i n the results section. PHOSPHORUS Routine 03/16/2009 6:15 AM Results f or this CHILD PROTECTIVE INVESTIGATOR procedure are i n the results section. MAGNESIUM Routine 03/16/2009 6:15 AM Results f or this CHILD PROTECTIVE INVESTIGATOR procedure are i n the results section. BILIRUBIN TOTAL Routine 03/16/2009 6:15 AM Result s for this CHILD PROTECTIVE INVESTIGATOR procedure are i n the results section. AST Routine 03/16/2009 6:15 AM Results f or this CHILD PROTECTIVE INVESTIGATOR procedure are i n the results section. ALT Routine 03/16/2009 6:15 AM Results f or this CHILD PROTECTIVE INVESTIGATOR procedure are i n the results section. ALKALINE PHOSPHATASE Routine 03/16/2009 6:15 AM R esults for this CHILD PROTECTIVE INVESTIGATOR procedure are i n the results section. ALBUMIN LEVEL Routine 03/16/2009 6:15 AM Results for this CHILD PROTECTIVE INVESTIGATOR procedure are i n the results section. BASIC METABOLIC PANEL Routine 03/16/2009 6:15 AM Results for this CHILD PROTECTIVE INVESTIGATOR procedure are i n the results section. GLUCOSE BY METER Routine 03/16/2009 4:18 AM Resul ts for this CHILD PROTECTIVE INVESTIGATOR procedure are i n the results section. GLUCOSE BY METER Routine 03/16/2009 12:05 Results for this AM CHILD PROTECTIVE INVESTIGATOR procedure are i n the results section. documented in this encounter Results (ABNORMAL) Glucose by meter (03/16/2009 11:58 PM CHILD PROTECTIVE INVESTIGATOR) P athologist Signature Glucose 185 (H) 60 - 99 MISYS mg/dL Specimen Anatomical Collection Method Collection Time Receive d Time (Source) Location / / Volume Laterality 03/16/2009 11:58 03/17/2009 8:15 PM CHILD PROTECTIVE INVESTIGATOR AM CHILD PROTECTIVE INVESTIGATOR Kaiden Carpenter MD [facility] POCT Performing Organization Address City/State/ZIP Code Phon e Number MISYS (ABNORMAL) Glucose by meter (03/16/2009 8:09 PM CHILD PROTECTIVE INVESTIGATOR) P athologist Signature Glucose 160 (H) 60 - 99 MISYS mg/dL Specimen Anatomical Collection Method Collection Time Receive d Time (Source) Location / / Volume Laterality 03/16/2009 8:09 PM 9 CHILD PROTECTIVE INVESTIGATOR 11:21 PM CHILD PROTECTIVE INVESTIGATOR Kaiden Carpenter MD LAB - [facility] POCT Performing Organization Address City/State/ZIP Code Phon e Number MISYS (ABNORMAL) Routine UA with microscopic (03/16/2009 5:10 PM CHILD PROTECTIVE INVESTIGATOR) Component Value Ref Test Analysis Performed At [facility] Range Method Time Signature Source Catheterized MISYS Urine Color Urine Straw MISYS Appearance Urine Clear MISYS Glucose Urine 150 (A) NEG MISYS mg/dL Bilirubin Urine Negative NEG MISYS Ketones Urine 5 (A) NEG MISYS mg/dL Specific [place] 1.008 1.003 - MISYS Urine 1.035 Blood Urine Moderate (A) NEG MISYS pH Urine 6.0 5.0 - MISYS 7.0 pH Protein Albumin 30 (A) NEG MISYS Urine mg/dL Urobilinogen Normal 0.0 - MISYS mg/dL 2.0 mg/dL Nitrite Urine Negative NEG MISYS Leukocyte Negative NEG MISYS Esterase Urine WBC Urine 4 (H) 0 - 2 MISYS /HPF RBC Urine 2 0 - 2 MISYS /HPF Bacteria Urine Few (A) NEG /HPF MISYS Specimen Anatomical Collection Method Collection Time Receive d Time (Source) Location / / Volume Laterality 03/16/2009 5:10 PM 9 4:53 CHILD PROTECTIVE INVESTIGATOR PM CHILD PROTECTIVE INVESTIGATOR Liam Traylor MD LAB - URINE ORDERABLES Performing Organization Address City/[facility]/ZIP Code Phon e Number MISYS Urine culture (03/16/2009 5:10 PM CHILD PROTECTIVE INVESTIGATOR) Component Value Ref Test Analysis Performed At [facility] Range Method Time Signature Specimen Catheterized MISYS Description Urine Culture Micro 50 to 100,000 MISYS colonies/mL Coagulase negative Staphylococcus Comment: Sent final report to printer on 03.19.09 Micro Report Status FINAL 03/19/2009 MIS YS Specimen Anatomical Collection Method Collection Time Receive d Time (Source) Location / / Volume Laterality 03/16/2009 5:10 PM 9 4:53 CHILD PROTECTIVE INVESTIGATOR PM CHILD PROTECTIVE INVESTIGATOR Organism Antibiotic Method Susceptibility 50 to 100,000 colonies/ml coagulase negative Clindamycin <=0.25 Susceptible staphylococcus (toy) 50 to 100,000 colonies/ml coagulase negative Ciprofloxacin <=0.5 Susceptible staphylococcus (toy) 50 to 100,000 colonies/ml coagulase negative Erythromycin <=0.25 Susceptible staphylococcus (toy) 50 to 100,000 colonies/ml coagulase negative Nitrofurantoin <=16 Susceptible staphylococcus (toy) 50 to 100,000 colonies/ml coagulase negative Gentamicin <=0.5 Susceptible staphylococcus (toy) 50 to 100,000 colonies/ml coagulase negative Levofloxacin <=0.12 Susceptible staphylococcus (toy) 50 to 100,000 colonies/ml coagulase negative Oxacillin <=0.25 Susceptible staphylococcus (toy) 50 to 100,000 colonies/ml coagulase negative Penicillin <=0.03 Susceptible staphylococcus (toy) 50 to 100,000 colonies/ml coagulase negative Tetracycline <=1 Susceptible staphylococcus (toy) 50 to 100,000 colonies/ml coagulase negative Comment: See comment below staphylococcus (toy) Comment: Clindamycin and Erythromycin are not routinely prescribed for isolates from the urinary tract. 50 to 100,000 colonies/ml coagulase negative Vancomycin 2 Susceptible staphylococcus (toy) Lima Traylor MD LAB - MICRO GENERAL ORDERABL ES Performing Organization Address City/[facility] Phon e Number MISYS Blood culture (03/16/2009 5:10 PM CHILD PROTECTIVE INVESTIGATOR) [facility] [employer] Method Time Signature Specimen PICC MISYS Description Culture Micro No growth MISYS after 6 days Micro Report FINAL MISYS Status [id number] Specimen Anatomical Collection Method Collection Time Receive d Time (Source) Location / / Volume Laterality 03/16/2009 5:10 PM 9 4:54 CHILD PROTECTIVE INVESTIGATOR PM CHILD PROTECTIVE INVESTIGATOR Liam Traylor MD LAB - MICRO GENERAL ORDERABL ES Performing Organization Address City/[facility] Phon e Number MISYS Blood culture (03/16/2009 5:10 PM CHILD PROTECTIVE INVESTIGATOR) [facility] [employer] Method Time Signature Specimen Right Arm MISYS Description Culture Micro No growth MISYS after 6 days Micro Report FINAL MISYS Status [id number] Specimen Anatomical Collection Method Collection Time Receive d Time (Source) Location / / Volume Laterality 03/16/2009 5:10 PM 9 4:54 CHILD PROTECTIVE INVESTIGATOR PM CHILD PROTECTIVE INVESTIGATOR Liam Traylor MD LAB - MICRO GENERAL ORDERABL ES Performing Organization Address City/[facility] Phon e Number MISYS (ABNORMAL) Glucose by meter (03/16/2009 4:17 PM CHILD PROTECTIVE INVESTIGATOR) athologist Signature Glucose 159 (H) 60 - 99 MISYS mg/dL Specimen Anatomical Collection Method Collection Time Receive d Time (Source) Location / / Volume Laterality 03/16/2009 4:17 PM 9 5:25 CHILD PROTECTIVE INVESTIGATOR PM CHILD PROTECTIVE INVESTIGATOR Kaiden REHMAN - [place] POCT Performing Organization Address [facility] Phon e Number MISYS (ABNORMAL) Glucose by meter (03/16/2009 12:00 PM CHILD PROTECTIVE INVESTIGATOR) athologist Signature Glucose 156 (H) 60 - 99 MISYS mg/dL Specimen Anatomical Collection Method Collection Time Receive d Time (Source) Location / / Volume Laterality 03/16/2009 12:00 03/16/2009 PM CHILD PROTECTIVE INVESTIGATOR 12:20 PM CHILD PROTECTIVE INVESTIGATOR Kaiden MOONEY POCT Performing Organization Address [facility] Phon e Number MISYS (ABNORMAL) Glucose by meter (03/16/2009 7:56 AM CHILD PROTECTIVE INVESTIGATOR) athologist Signature Glucose 157 (H) 60 - 99 MISYS mg/dL Specimen Anatomical Collection Method Collection Time Receive d Time (Source) Location / / Volume Laterality 03/16/2009 7:56 AM 9 9:20 CHILD PROTECTIVE INVESTIGATOR AM CHILD PROTECTIVE INVESTIGATOR Kaiden MOONEY POCT Performing Organization Address [facility] Phon e Number MISYS (ABNORMAL) Basic metabolic panel (03/16/2009 6:15 AM CHILD PROTECTIVE INVESTIGATOR) athologist Signature Sodium 136 133 - 144 MISYS mmol/L Potassium 3.5 3.4 - 5.3 MISYS mmol/L Comment: Specimen slightly hemolyzed, po tassium may be falsely elevated Chloride 89 (L) 94 - 109 mmol/L MISYS Carbon Dioxide 33 (H) 20 - 32 mmol/L MISYS Comment: Reviewed, acceptable Glucose 131 (H) 60 - 99 mg/dL MISYS Urea Nitrogen 71 (H) 5 - 24 mg/dL MISYS Comment: Specimen hemolyzed Creatinine 5.05 (H) 0.66 - 1.25 mg/dL MISYS Comment: New IDMS-traceable calibration beginning 08/23/07 GFR Estimate 12 (L) >60 mL/min/1.7m2 MISYS GFR Estimate If Black 15 (L) >60 mL/min/1.7m2 M ISYS Calcium 8.1 (L) 8.5 - 10.4 mg/dL MISYS Anion Gap 14 6 - 17 mmol/L MISYS Comment: CORRECTED ON 03/16 AT 0659: PRE VIOUSLY REPORTED 15 Specimen (Source) Anatomical Collection Method Collection Time Re ceived Time Location / / Volume Laterality 03/16/2009 6:15 AM 9 CHILD PROTECTIVE INVESTIGATOR Liam Traylor MD LAB - BLOOD ORDERABLES Performing Organization Address City/State/ZIP Code Phon e Number MISYS (ABNORMAL) CBC with platelets differential (03/16/2009 6:15 AM CHILD PROTECTIVE INVESTIGATOR) [facility] gist Method Time Signature MCV 93 78 - 100 MISYS fl MCH 32.5 26.5 - MISYS 33.0 pg MCHC 35.1 31.5 - MISYS 36.5 g/dL RDW 15.8 (H) 10.0 - MISYS 15.0 % WBC 5.2 4.0 - MISYS 11.0 10e9/L RBC Count 3.05 (L) 4.4 - 5.9 MISYS 10e12/L Hemoglobin 9.9 (L) 13.3 - MISYS 17.7 g/dL Hematocrit 28.2 (L) 40.0 - MISYS 53.0 % % Neutrophils 77 (H) 40 - 75 % MISYS % Lymphocytes 7 (L) 20 - 48 % MISYS % Monocytes 11 0 - 12 % MISYS % Eosinophils 5 0 - 6 % MISYS % Basophils 0 0 - 2 % MISYS Platelet Count 103 (L) 150 - 450 MISYS 10e9/L Absolute 4.0 1.6 - 8.3 MISYS Neutrophil 10e9/L Absolute 0.4 (L) 0.8 - 5.3 MISYS Lymphocytes 10e9/L Absolute 0.6 0.0 - 1.3 MISYS Monocytes 10e9/L Absolute 0.3 0.0 - 0.7 MISYS Eosinophils 10e9/L Absolute 0.0 0.0 - 0.2 MISYS Basophils 10e9/L Platelet Normal MISYS Estimate Diff Method Manual Method MISYS RBC Morphology Consistent MISYS with reported results Specimen (Source) Anatomical Collection Method Collection Time Re ceived Time Location / / Volume Laterality 03/16/2009 6:15 AM 9 CHILD PROTECTIVE INVESTIGATOR Liam Traylor MD LAB - BLOOD ORDERABLES Performing Organization Address [facility] Phon e Number MISYS Magnesium (03/16/2009 6:15 AM CHILD PROTECTIVE INVESTIGATOR) athologist Signature Magnesium 1.8 1.6 - 2.3 MISYS mg/dL Comment: Specimen hemolyzed Specimen (Source) Anatomical Collection Method Collection Time Re ceived Time Location / / Volume Laterality 03/16/2009 6:15 AM 9 CHILD PROTECTIVE INVESTIGATOR Brian Turner MD LAB - BLOOD ORDERABLES Performing Organization Address [facility] Phon e Number MISYS Phosphorus (03/16/2009 6:15 AM CHILD PROTECTIVE INVESTIGATOR) athologist Signature Phosphorus 3.7 2.5 - 4.5 MISYS mg/dL Comment: Specimen hemolyzed Specimen (Source) Anatomical Collection Method Collection Time Re ceived Time Location / / Volume Laterality 03/16/2009 6:15 AM 9 CHILD PROTECTIVE INVESTIGATOR Brian Turner MD LAB - BLOOD ORDERABLES Performing Organization Address [facility] Phon e Number MISYS (ABNORMAL) Prealbumin (03/16/2009 6:15 AM CHILD PROTECTIVE INVESTIGATOR) athologist Signature Prealbumin 10 (L) 15 - 45 MISYS mg/dL Specimen Anatomical Collection Method Collection Time Receive d Time (Source) Location / / Volume Laterality 03/16/2009 6:15 AM 9 1:43 CHILD PROTECTIVE INVESTIGATOR PM CHILD PROTECTIVE INVESTIGATOR Liam Traylor MD LAB - BLOOD ORDERABLES Performing Organization Address [facility] Phon e Number MISYS (ABNORMAL) Albumin level (03/16/2009 6:15 AM CHILD PROTECTIVE INVESTIGATOR) P athologist Signature Albumin 2.9 (L) 3.9 - 5.1 MISYS g/dL Specimen Anatomical Collection Method Collection Time Receive d Time (Source) Location / / Volume Laterality 03/16/2009 6:15 AM 9 2:07 CHILD PROTECTIVE INVESTIGATOR PM CHILD PROTECTIVE INVESTIGATOR Liam Traylor MD LAB - BLOOD ORDERABLES Performing Organization Address City/State/ZIP Code Phon e Number MISYS Alkaline phosphatase (03/16/2009 6:15 AM CHILD PROTECTIVE INVESTIGATOR) P athologist Signature Alkaline 142 40 - 150 MISYS Phosphatase U/L Specimen Anatomical Collection Method Collection Time Receive d Time (Source) Location / / Volume Laterality 03/16/2009 6:15 AM 9 2:07 CHILD PROTECTIVE INVESTIGATOR PM CHILD PROTECTIVE INVESTIGATOR Liam Traylor MD LAB - BLOOD ORDERABLES Performing Organization Address City/State/ZIP Code Phon e Number MISYS ALT (03/16/2009 6:15 AM CHILD PROTECTIVE INVESTIGATOR) P athologist Signature ALT 42 0 - 70 U/L MISYS Specimen Anatomical Collection Method Collection Time Receive d Time (Source) Location / / Volume Laterality 03/16/2009 6:15 AM 9 2:07 CHILD PROTECTIVE INVESTIGATOR PM CHILD PROTECTIVE INVESTIGATOR Liam Traylor MD LAB - BLOOD ORDERABLES Performing Organization Address City/[facility]/ZIP Code Phon e Number MISYS (ABNORMAL) AST (03/16/2009 6:15 AM CHILD PROTECTIVE INVESTIGATOR) P athologist Signature AST 106 (H) 0 - 55 U/L MISYS Specimen Anatomical Collection Method Collection Time Receive d Time (Source) Location / / Volume Laterality 03/16/2009 6:15 AM 9 2:07 CHILD PROTECTIVE INVESTIGATOR PM CHILD PROTECTIVE INVESTIGATOR Liam Traylor MD LAB - BLOOD ORDERABLES Performing Organization Address City/[facility]/ZIP Code Phon e Number MISYS Bilirubin total (03/16/2009 6:15 AM CHILD PROTECTIVE INVESTIGATOR) P athologist Signature Bilirubin Total 1.3 0.2 - 1.3 MISYS mg/dL Specimen Anatomical Collection Method Collection Time Receive d Time (Source) Location / / Volume Laterality 03/16/2009 6:15 AM 9 2:07 CHILD PROTECTIVE INVESTIGATOR PM CHILD PROTECTIVE INVESTIGATOR Liam Traylor MD LAB - BLOOD ORDERABLES Performing Organization Address City/State/ZIP Code Phon e Number MISYS (ABNORMAL) Protein total (03/16/2009 6:15 AM CHILD PROTECTIVE INVESTIGATOR) athologist Signature Protein Total 6.5 (L) 6.8 - 8.8 MISYS g/dL Specimen Anatomical Collection Method Collection Time Receive d Time (Source) Location / / Volume Laterality 03/16/2009 6:15 AM 9 2:07 CHILD PROTECTIVE INVESTIGATOR PM CHILD PROTECTIVE INVESTIGATOR Liam Traylor MD LAB - BLOOD ORDERABLES Performing Organization Address City/[facility] Code Phon e Number MISYS (ABNORMAL) Glucose by meter (03/16/2009 4:18 AM CHILD PROTECTIVE INVESTIGATOR) athologist Signature Glucose 189 (H) 60 - 99 MISYS mg/dL Specimen Anatomical Collection Method Collection Time Receive d Time (Source) Location / / Volume Laterality 03/16/2009 4:18 AM 9 9:20 CHILD PROTECTIVE INVESTIGATOR AM CHILD PROTECTIVE INVESTIGATOR Kaiden REHMAN - [place] POCT Performing Organization Address City/[facility] Phon e Number MISYS (ABNORMAL) Glucose by meter (03/16/2009 12:05 AM CHILD PROTECTIVE INVESTIGATOR) athologist Signature Glucose 187 (H) 60 - 99 MISYS mg/dL Specimen Anatomical Collection Method Collection Time Receive d Time (Source) Location / / Volume Laterality 03/16/2009 12:05 03/16/2009 9:20 AM CHILD PROTECTIVE INVESTIGATOR AM CHILD PROTECTIVE INVESTIGATOR Kaiden REHMAN - [place] POCT Performing Organization Address City/[facility] Phon e Number MISYS documented in this encounter Visit Diagnoses Not on filedocumented in this encounter Additional Health Concerns Infection Onset Date Last Indicated Resolved Time MRSA-Contact IsolationComment: 0 04/26/2021 11:03 AM CHILD PROTECTIVE INVESTIGATOR Infection 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
--- OUTSIDE RECORDS SUMMARY | 2022-02-12 13:50 | XMS_ITS | Encounter Summary ---
:1960 Author Organization [place] Address [address] [place] [address] Care Team Providers Name Role Phone Unavailable Primary Care Provider Unavailable Encounter Details Date Type Department Care Team Description 03/15/2009 Historic Notes INTERFACED REPORT Xu Wyatt MD [address] [facility] [address] [facility] [address] [place] [address] (Wo rk) Social History Tobacco Use Types Packs/Day Years Used Date Smoking Tobacco: Never Alcohol Use Standard Drinks/Week Comments Yes 0 (1 standard drink = 0.6 oz pure alcoho l) socially approx 5 drinks/wk Sex Assigned at Date Recorded Not on file documented as of this encounter Progress Notes Brian Wyatt - 07/10/2010 3:27 PM CDT ICU Staff S; Pt much calmer today O: VSS T max 38.3, Sats 100% on current vent settings, UO 575 since [place] Chest: CTA CV: sinus susan Abd: soft Ext: no edema 7.5/28/177 K 4.3, Respiratory Care Specialist 8.4, Mg 1.8, CK 705 A/P: Alcohol withdrawal. Seems much better today. Pt now bradycardic on propofol. Will stop and use prn Ativan plus dexmetatomidine. Renal failure of uncertain etiology: UO improving. Observe closely: I would guess that we could hold on dialysis today Respiratory failure. Pt is not currently overbreathing the vent. This is worsened due to hyperventilation. Decrease vent rate to 8, weaning trial when patient wakes up. Extubate today or tomorrow? Nutrition: consider TFs if pt still intubated tomorrow [phone] [Signature] Author: BRIAN WYATT) [Signed 09:48] documented in this encounter Plan of Treatment Not on filedocumented as of this encounter Visit Diagnoses Not on filedocumented in this encounter Additional Health Concerns Infection Onset Date Last Indicated Resolved Time MRSA-Contact IsolationComment: 0 04/26/2021 11:03 AM SITE ACQUISITION MANAGER Infection 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
--- OUTSIDE RECORDS SUMMARY | 2022-02-12 13:50 | XMS_ITS | Encounter Summary ---
:1960 Author Organization [place] Address [address] [place] [id number] Care Team Providers Name Role Phone Unavailable [...] Comme nts EKG 12 LEAD Routine 03/14/2009 1:21 AM Results f or this BOOKING CLERK procedure are i n the results section . documented in this encounter Results EKG 12 LEAD (03/14/2009 1:21 AM BOOKING CLERK) Component Value Ref Range Test Analysis Performed Pathologis t Method Time At Signature Ventricular Rate 178 BPM RADIOLOGY RESULTS Atrial Rate 197 BPM RADIOLOGY RESULTS QRS Duration 100 ms RADIOLOGY RESULTS QT 274 ms RADIOLOGY RESULTS QTc 471 ms RADIOLOGY RESULTS R AXIS -2 degrees RADIOLOGY RESULTS T [place] -154 degrees RADIOLOGY RESULTS Interpretation AGE AND GENDER SPECIFIC ECG ANALYSIS RADIOLOGY ECG Atrial fibrillation with rapid ventricular response RESULTS with premature ventricular or aberrantly conducted complexes Cannot rule out Inferior infarct , age undetermined ST & T wave abnormality, consider lat eral ischemia or digitalis effect Abnormal ECG Unconfirmed report - interpretation of this ECG is compute r generated - see medical record for final interpretation Specimen Anatomical Collection Method Collection Time Receive d Time (Source) Location / / Volume Laterality 03/14/2009 1:21 AM 9 BOOKING CLERK 10:47 AM BOOKING CLERK Transcripton Interface ECG ORDERABLES Performing Organization Address City/State/ZIP Code Phon e Number RADIOLOGY RESULTS documented in this encounter Visit Diagnoses Not on filedocumented in this encounter Additional Health Concerns Infection Onset Date Last Indicated Resolved Time MRSA-Contact IsolationComment: 0 04/26/2021 11:03 AM BOOKING CLERK Infection 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
--- OUTSIDE RECORDS SUMMARY | 2022-02-12 13:50 | XMS_ITS | Encounter Summary ---
:1960 Author Organization [place] Address [address] [place] [id number] Care Team Providers Name Role Phone Unavailable [...] 03/14/2009 2:09 AM Results f or this COMMISSIONS MANAGER procedure are i n the results section . documented in this encounter Results EKG 12 LEAD (03/14/2009 2:09 AM COMMISSIONS MANAGER) Component Value Ref Range Test Analysis Performed Pathologis t Method Time At Signature Ventricular Rate 125 BPM RADIOLOGY RESULTS Atrial Rate 125 BPM RADIOLOGY RESULTS [place] Interval 148 ms RADIOLOGY RESULTS QRS Duration 104 ms RADIOLOGY RESULTS QT 300 ms RADIOLOGY RESULTS QTc 433 ms RADIOLOGY RESULTS P [place] 43 degrees RADIOLOGY RESULTS R AXIS -4 degrees RADIOLOGY RESULTS T [place] 13 degrees RADIOLOGY RESULTS Interpretation AGE AND GENDER SPECIFIC ECG ANALYSIS RADIOLOGY ECG Sinus tachycardia RESULTS Otherwise normal ECG Unconfirmed report - interpretation of this ECG is compute r generated - see medical record for final interpretation Specimen Anatomical Collection Method Collection Time Receive d Time (Source) Location / / Volume Laterality 03/14/2009 2:09 AM 9 COMMISSIONS MANAGER 10:47 AM COMMISSIONS MANAGER Transcripton Interface ECG ORDERABLES Performing Organization Address City/State/ZIP Code Phon e Number RADIOLOGY RESULTS documented in this encounter Visit Diagnoses Not on filedocumented in this encounter Additional Health Concerns Infection Onset Date Last Indicated Resolved Time MRSA-Contact IsolationComment: 0 04/26/2021 11:03 AM COMMISSIONS MANAGER Infection 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
--- OUTSIDE RECORDS SUMMARY | 2022-02-12 13:50 | XMS_ITS | Encounter Summary ---
:1960 Author Organization [place] Address [address] [place] [address] Care Team Providers Name Role Phone Unavailable Primary Care Provider Unavailable Encounter Details Date Type Department Care Team Description 03/18/2009 Historic Results [facility]ni Church MD Hospitalists [address] [place], [place] [address] (Wo rk) Social History [...] Associated Comments Diagnosis GLUCOSE BY METER Routine 03/18/2009 8:23 PM Resul ts for this HEAT WELDER PLASTICS procedure are i n the results section. GLUCOSE BY METER Routine 03/18/2009 4:03 PM Resul ts for this HEAT WELDER PLASTICS procedure are i n the results section. POTASSIUM Routine 03/18/2009 2:45 PM Results f or this HEAT WELDER PLASTICS procedure are i n the results section. PHOSPHORUS Routine 03/18/2009 2:45 PM Results f or this HEAT WELDER PLASTICS procedure are i n the results section. MAGNESIUM Routine 03/18/2009 2:45 PM Results f or this HEAT WELDER PLASTICS procedure are i n the results section. GLUCOSE BY METER Routine 03/18/2009 12:00 Results for this PM HEAT WELDER PLASTICS procedure are i n the results section. CBC WITH PLATELETS & Routine 03/18/2009 7:45 AM R esults for this DIFFERENTIAL HEAT WELDER PLASTICS procedure are i n the results section. PHOSPHORUS Routine 03/18/2009 7:45 AM Results f or this HEAT WELDER PLASTICS procedure are i n the results section. MAGNESIUM Routine 03/18/2009 7:45 AM Results f or this HEAT WELDER PLASTICS procedure are i n the results section. BASIC METABOLIC PANEL Routine 03/18/2009 7:45 AM Results for this HEAT WELDER PLAST[employer] procedure are i n the results section. GLUCOSE BY METER Routine 03/18/2009 7:36 AM Resul ts for this HEAT WELDER PLASTICS procedure are i n the results section. GLUCOSE BY METER Routine 03/18/2009 3:47 AM Resul ts for this HEAT WELDER PLASTICS procedure are i n the results section. GLUCOSE BY METER Routine 03/18/2009 12:08 Results for this AM HEAT WELDER PLASTICS procedure are i n the results section. documented in this encounter Results (ABNORMAL) Glucose by meter (03/18/2009 8:23 PM HEAT WELDER PLASTICS) P athologist Signature Glucose 139 (H) 60 - 99 MISYS mg/dL Specimen Anatomical Collection Method Collection Time Receive d Time (Source) Location / / Volume Laterality 03/18/2009 8:23 PM 9 8:35 HEAT WELDER PLASTICS PM HEAT WELDER PLASTICS Kaiden REHMAN - JESICA POCT Performing Organization Address City/[facility]/ZIP Code Phon e Number MISYS (ABNORMAL) Glucose by meter (03/18/2009 4:03 PM HEAT WELDER PLAST[employer]) P athologist Signature Glucose 213 (H) 60 - 99 MISYS mg/dL Specimen Anatomical Collection Method Collection Time Receive d Time (Source) Location / / Volume Laterality 03/18/2009 4:03 PM 9 4:15 HEAT WELDER PLASTICS PM HEAT WELDER PLASTICS Kaiden REHMAN - JESICA POCT Performing Organization Address City/[facility] Code Phon e Number MISYS (ABNORMAL) Phosphorus (03/18/2009 2:45 PM HEAT WELDER PLASTICS) P athologist Signature Phosphorus 2.3 (L) 2.5 - 4.5 MISYS mg/dL Specimen Anatomical Collection Method Collection Time Receive d Time (Source) Location / / Volume Laterality 03/18/2009 2:45 PM 9 2:51 HEAT WELDER PLASTICS PM HEAT WELDER PLASTICS Brian Turner MD LAB - BLOOD ORDERABLES Performing Organization Address City/[facility]/[place]IP [facility] [place] Number MISYS Magnesium (03/18/2009 2:45 PM HEAT WELDER PLASTICS) P athologist Signature Magnesium 1.9 1.6 - 2.3 MISYS mg/dL Specimen Anatomical Collection Method Collection Time Receive d Time (Source) Location / / Volume Laterality 03/18/2009 2:45 PM 9 2:52 HEAT WELDER PLASTICS PM HEAT WELDER PLASTICS Brian Turner MD LAB - BLOOD ORDERABLES Performing Organization Address [facility] Phon e Number MISYS Potassium (03/18/2009 2:45 PM HEAT WELDER PLASTICS) athologist Signature Potassium 4.4 3.4 - 5.3 MISYS mmol/L Comment: Results confirmed by repeat patricia t Specimen Anatomical Collection Method Collection Time Receive d Time (Source) Location / / Volume Laterality 03/18/2009 2:45 PM 9 2:52 HEAT WELDER PLASTICS PM HEAT WELDER PLASTICS Brian Turner MD LAB - BLOOD ORDERABLES Performing Organization Address [facility] Phon e Number MISYS (ABNORMAL) Glucose by meter (03/18/2009 12:00 PM HEAT WELDER PLAST[employer]) athologist Signature Glucose 172 (H) 60 - 99 MISYS mg/dL Specimen Anatomical Collection Method Collection Time Receive d Time (Source) Location / / Volume Laterality 03/18/2009 12:00 03/18/2009 PM HEAT [employer]ELDER PLASTICS 12:35 PM HEAT WELDER PLASTICS Kaiden Carpenter MD LAB - BEAKER POCT Performing Organization Address [facility] Phon e Number MISYS (ABNORMAL) Magnesium (03/18/2009 7:45 AM HEAT WELDER PLASTICS) athologist Signature Magnesium 1.5 (L) 1.6 - 2.3 MISYS mg/dL Specimen (Source) Anatomical Collection Method Collection Time Re ceived Time Location / / Volume Laterality 03/18/2009 7:45 AM 9 HEAT WELDER PLASTICS Brian Turner MD LAB - BLOOD ORDERABLES Performing Organization Address [facility] Phon e Number MISYS (ABNORMAL) Basic metabolic panel (03/18/2009 7:45 AM HEAT WELDER PLASTICS) Analysis Performed At Patho logist Time Signature Sodium 145 (H) 133 - 144 MISYS mmol/L Potassium 3.1 (L) 3.4 - 5.3 MISYS mmol/L Chloride 97 94 - 109 MISYS mmol/L Carbon Dioxide 39 (H) 20 - 32 MISYS mmol/L Glucose 183 (H) 60 - 99 MISYS mg/dL Urea Nitrogen 35 (H) 5 - 24 MISYS mg/dL Creatinine 1.64 (H) 0.66 - MISYS 1.25 mg/dL Comment: New IDMS-traceable calibration beginning 08/23/07 GFR Estimate 45 (L) >60 mL/min/1.7m2 MISYS GFR Estimate If Black 55 (L) >60 mL/min/1.7m2 M ISYS Calcium 7.9 (L) 8.5 - 10.4 mg/dL MISYS Anion Gap 9 6 - 17 mmol/L MISYS Specimen (Source) Anatomical Collection Method Collection Time Re ceived Time Location / / Volume Laterality 03/18/2009 7:45 AM 9 HEAT WELDER PLASTICS Brian Turner MD LAB - BLOOD ORDERABLES Performing Organization Address City/State/ZIP Code Phon e Number MISYS (ABNORMAL) Phosphorus (03/18/2009 7:45 AM HEAT WELDER PLASTICS) P athologist Signature Phosphorus 1.6 (L) 2.5 - 4.5 MISYS mg/dL Specimen (Source) Anatomical Collection Method Collection Time Re ceived Time Location / / Volume Laterality 03/18/2009 7:45 AM 9 HEAT WELDER PLASTICS Brian Turner MD LAB - BLOOD ORDERABLES Performing Organization Address City/State/ZIP Code Phon e Number MISYS (ABNORMAL) CBC with platelets differential (03/18/2009 7:45 AM HEAT WELDER [employer]LAST[employer]) Component Value Ref Test Analysis Performed At Patholo gist Range Method Time Signature MCV 94 78 - 100 MISYS fl MCH 30.7 26.5 - MISYS 33.0 pg MCHC 32.6 31.5 - MISYS 36.5 g/dL RDW 15.7 (H) 10.0 - MISYS 15.0 % WBC 8.8 4.0 - MISYS 11.0 10e9/L RBC Count 3.23 (L) 4.4 - MISYS 5.9 10e12/L Hemoglobin 9.9 (L) 13.3 - MISYS 17.7 g/dL Hematocrit 30.4 (L) 40.0 - MISYS 53.0 % % Neutrophils 59 40 - 75 MISYS % % Lymphocytes 14 (L) 20 - 48 MISYS % % Monocytes 15 (H) 0 - 12 % MISYS % Eosinophils 7 (H) 0 - 6 % MISYS % Basophils 1 0 - 2 % MISYS % Metamyelocytes 2 (H) 0 % MISYS % Myelocytes 2 (H) 0 % MISYS Platelet Count 149 (L) 150 - MISYS 450 10e9/L Absolute 5.2 1.6 - MISYS Neutrophil 8.3 10e9/L Absolute 1.2 0.8 - MISYS Lymphocytes 5.3 10e9/L Absolute Monocytes 1.3 0.0 - MISYS 1.3 10e9/L Absolute 0.6 0.0 - MISYS Eosinophils 0.7 10e9/L Absolute Basophils 0.1 0.0 - MISYS 0.2 10e9/L Absolute 0.2 10e9/L MISYS Metamyelocytes Absolute 0.2 10e9/L MISYS Myelocytes Platelet Estimate Decreased MISYS Diff Method Manual Method MISYS Anisocytosis Slight MISYS Stomatocytes Moderate MISYS Target Cells Marked MISYS Dohle Bodies Present MISYS Toxic Granulation Present MISYS Specimen (Source) Anatomical Collection Method Collection Time Re ceived Time Location / / Volume Laterality 03/18/2009 7:45 AM 9 HEAT WELDER PLASTICS Liam Traylor MD LAB - BLOOD ORDERABLES Performing Organization Address City/[facility]/ZIP Code Phon e Number MISYS (ABNORMAL) Glucose by meter (03/18/2009 7:36 AM HEAT WELDER PLASTICS) athologist Signature Glucose 221 (H) 60 - 99 MISYS mg/dL Specimen Anatomical Collection Method Collection Time Receive d Time (Source) Location / / Volume Laterality 03/18/2009 7:36 AM 9 8:21 HEAT WELDER PLASTICS AM HEAT WELDER PLASTICS Kaiden Carpenter MD LAB - BEAKER POCT Performing Organization Address City/State/ZIP Code Phon e Number MISYS (ABNORMAL) Glucose by meter (03/18/2009 3:47 AM HEAT WELDER PLASTICS) P athologist Signature Glucose 206 (H) 60 - 99 MISYS mg/dL Specimen Anatomical Collection Method Collection Time Receive d Time (Source) Location / / Volume Laterality 03/18/2009 3:47 AM 9 4:05 HEAT WELDER PLASTICS AM HEAT WELDER PLASTICS Kaiden Carpenter MD LAB - JESICA POCT Performing Organization Address City/State/ZIP Code Phon e Number MISYS (ABNORMAL) Glucose by meter (03/18/2009 12:08 AM HEAT WELDER PLASTICS) P athologist Signature Glucose 188 (H) 60 - 99 MISYS mg/dL Specimen Anatomical Collection Method Collection Time Receive d Time (Source) Location / / Volume Laterality 03/18/2009 12:08 03/18/2009 3:15 AM HEAT WELDER PLASTICS AM HEAT WELDER PLASTICS Kaiden MOONEY POCT Performing Organization Address City/State/ZIP [facility] [place] Number MISYS documented in this encounter Visit Diagnoses Not on filedocumented in this encounter Additional Health Concerns Infection Onset Date Last Indicated Resolved Time MRSA-Contact IsolationComment: 0 04/26/2021 11:03 AM HEAT WELDER PLASTICS Infection 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
--- OUTSIDE RECORDS SUMMARY | 2022-02-12 13:51 | XMS_ITS | Encounter Summary ---
:1960 Author Organization [place] Address [facility] [place] [address] Care Team Providers Name Role Phone No Ref-Primary, Physician Primary Care Provider [phone] Juan Farias MD Unavailable Edilia Trejo APRN COMPUTER DRAFTER Unavailable Glendy vailable Juan Farias MD Unavailable Denise Connell-C Unavailable [phone] Edilia Trejo APRN COMPUTER DRAFTER Unavailable Glendy vailable Denise Connell-C Unavailable [phone] Juan Farias MD Primary Care Provider Dana Barry PA-C Unavailable [phone] Encounter Details Date Type Department Care Team Description 09/19/2008 Office Visit-[facility] Heart Juan Farias MD [address] [place] [address] [place] [address] [phone] Social History Tobacco Use Types Packs/Day Years Used Date Smoking Tobacco: Never Alcohol Use Standard Drinks/Week Comments Yes 0 (1 standard drink = 0.6 oz pure alcoho l) socially approx 5 drinks/wk Sex Assigned at Date Recorded Not on file documented as of this encounter Progress Notes Juan Farias MD - 06/04/2010 8:51 AM CST Progress Note Created by: Juan Jarrett, M.D. DATE: 09/19/2008 SARAH BETH BROWN DATE OF : 1960 AGE: [age] years old Referring Physician: JEROME MORENO Referring Clinic: [facility] CURRENT DIAGNOSES 1. - Hypercholesterolemia, 272.0 2. - Hypertension, benign, 401.1 ALLERGIES NKA MEDICATIONS (prior to changes made today) 1. Magnesium -, 1 p.o. daily 2. Lipitor 40 Mg, 1 p.o. q.d. 3. Lisinopril 20 Mg, 1 p.o. q.d. 4. Calcium 600 mg, 1 p.o. q.d. 5. Omeprazole 20mg, 2 p.o. q.d. 6. Vitamin E 200 iu, 1 p.o. q.d. 7. Vitamin and Mineral Supplement Multiple Vitamins with Minerals, 1 p.o. q.d. CHIEF COMPLAINTS HISTORY OF PRESENT ILLNESS I had the opportunity to see Mr. Sarah Beth Brown in the Cardiology Clinic today for reevaluation of hypertension and dyslipidemia. I have been seeing him for many years, and he likes to come back and seeme once a year to review these issues. Fortunately, he has no history of cardiac disease and no concerning cardiac symptoms. He has done well with lisinopril and Lipitor in the past without any adverseaffects. Recently, he developed an episode of gout but I do not think that that was related to his cardiac medications. Today, his cholesterol numbers indicate a total cholesterol of 126. Triglycerides were 131. HDL was 43. LDL was 57. Total cholesterol:HDL ratio was 2.9. His ALT was normal. On examination today, his blood pressure was 140/90. Heart rate was 72. Weight was 195 pounds. He tells me that his blood pressures have been consistently in the range of 120s/70s or 80s in the recent past, and he is surprised by this elevated reading. His lungs were clear. His heart rhythm was regular. He has no cardiac murmurs. He has no carotid bruits. PAST HISTORY Past Medical Illnesses: hypertension, hypercholesterolemia Infectious History: usual childhood illnesses of mumps, measles and chickenpox Surgeries/Procedures - General: hernia repair Cardiology Procedures-Noninvasive: stress echocardiogram December 1999, echocardiogram Jun 2008 PMHx Echo Results: 06/30 Probably normal LV without obvious regional wall motion abnormality Left Ventricular Ejection Fraction: EF55% by Echo -Jun 2008 FAMILY HISTORY: Father - hypertension; Mother - alive and well; Brother 1 - alive and well; Brother 2 - alive and well; Sister 1 - alive and well; SOCIAL HISTORY Alcohol Use - drinks occasionally 1-2 per day; Smoking - denies tobacco use; Diet - caffeine use-rare and regular diet without modifications; Lifestyle - single; Exercise - no regular exercise; Seat Belt Use - always; 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 INTEGUMENTARY denies any change in hair or [...] disorders. PHYSICAL EXAMINATION VITAL SIGNS: Blood Pressure: 140/90 Sitting, Left arm, large cuff Pulse- 72.00/min. Weight- 195.00 lbs. Height- 69.00 Temperature- .00 CONSTITUTIONAL cooperative, [...] time, person and place. MEDICATIONS UPDATED/STARTED TODAY: Magnesium -, 1 p.o. daily, 0 IMPRESSION/PLAN: Mr. Sarah Beth Brown is a 47-year-old gentleman with hypertension and dyslipidemia whoI am seeing for primary prevention of cardiac disease. Fortunately, he seems to be doing well with his medications (although his blood pressure is a little bit elevated today). I have suggested that wedouble his lisinopril, but he would rather continue his current dose and monitor his blood pressure.He will contact me if his blood pressure continues to be at or above 140 systolic in which case he would be agreeable to increasing the medication. I will plan on seeing him back again next year and will repeat a fasting cholesterol panel at that time. TODAYS ORDERS 1. Lipid profile/ALT 1 day 2. Return Visit 1 year 3. Lipid profile/ALT 1 year Juan Farias M.D. documented in this encounter Plan of Treatment Not on filedocumented as of this encounter Visit Diagnoses Not on filedocumented in this encounter Additional Health Concerns Infection Onset Date Last Indicated Resolved Time MRSA-Contact IsolationComment: 0 04/26/2021 11:03 AM CUSTOMER SERVICES MANAGER Infection erroneous MRSA 05/13/2021 05/13/2021 Rule Out C-difficile 12/06/2021 12/06/2021 12/07/2021 8:46 AM CDT documented as of this encounter Care Teams Barrel Lathe Operator Outside Relationship Specialty Start Date End Date No Ref-Primary, PCP - General 07/03/14 12/03/21 Physician Juan Farias MD PCP - General Cardiovascular Disease 12/04/21 [address] [place] [id number] Juan Farias MD Assigned Heart and 02/14/20 10/03/20 [address] Vascular Provider [address] [place] [address] Maya, Assigned Heart and 10/04/20 Edilia Chapman APRN Vascular Provider COMPUTER DRAFTER NO INFO AVAILABLE 02/10/2022 Juan Farias MD Assigned Heart and 04/04/21 07/31/21 [address] Vascular Provider [address] [place] [id number] Denise Connell Physician Supervisor Fireworks Assembly Cardiovascular Disease 08/12/21 MARIETTA Watson [address] [place] [id number] Maya, Assigned Heart and 08/01/21 2 Edilia Chapman APRN Vascular Provider COMPUTER DRAFTER NO INFO AVAILABLE 02/10/2022 Denise Connell Assigned Heart and 08/22/21 01/14/22 MARIETTA Watson Vascular Provider [address] [place] [id number] Dana Barry Assigned Heart and 01/15/22 MARIETTA Teague Vascular Provider [address] [place] [id number] documented as of this encounter
--- OUTSIDE RECORDS SUMMARY | 2022-02-12 13:51 | XMS_ITS | Encounter Summary ---
:1960 Author Organization [place] Address [address] [place] [address] Care Team Providers Name Role Phone Unavailable Primary Care Provider Unavailable Encounter Details Date Type Department Care Team Description 09/19/2008 Historic Results [facility] Unknown, Doct or, Clinic [address] [place] [address] Social History Tobacco Use Types Packs/Day Years [...] Date/Time Associated Comments Diagnosis GEMMS HISTORICAL Routine 09/19/2008 12:00 AM Resu lts for this RESULTS CDT procedure are i n the results section. documented in this encounter Results GEMMS Historical Results (09/19/2008 12:00 AM CDT) [facility] gist Method Time Signature Triglycerides 131 0 - 150 GEMMS mg/dL HISTORICAL RESULTS Cholesterol, Total 126 0 - 199 GEMMS mg/dL HISTORICAL RESULTS HDL Cholesterol 43 >40 mg/dL G[facility] HISTORICAL RESULTS LDL Cholesterol 57 <130 CALC GEMMS Calculated HISTORICAL RESULTS VLDL - Calc 26 <40 CALC GEM[facility] HISTORICAL RESULTS Cholesterol/HDL 2.9 <4.4 CALC GEMMS Ratio HISTORICAL RESULTS ALT 30 3 - 60 U/L GEM[facility] HISTORICAL RESULTS Specimen (Source) Anatomical Location Collection Method / Collectio n Time Received Time / Laterality Volume 09/19/2008 09/19/2008 Doctor Unknown MD LABORATORY Performing Organization Address City/State/ZIP Code Phon e Number GEMMS HISTORICAL RESULTS documented in this encounter Visit Diagnoses Not on filedocumented in this encounter Additional Health Concerns Infection Onset Date Last Indicated Resolved Time MRSA-Contact IsolationComment: 0 04/26/2021 11:03 AM CHISEL WORKER Infection 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
--- OUTSIDE RECORDS SUMMARY | 2022-02-12 13:51 | XMS_ITS | Encounter Summary ---
:1960 Author Organization [place] Address [address] [place] [address] Care Team Providers Name Role Phone Unavailable Primary Care Provider Unavailable Encounter Details Date Type Department Care Team Description 07/17/2008 [facility] [address] [place] [address] (Wo rk) Social History Tobacco Use Types [...] Procedure Name Priority Date/Time Associated Diagnosis Comme [facility] CHEST TWO VIEWS, Routine 07/17/2008 1:44 PM Re sults for this FRONT/LAT CDT procedure are i n the results section. documented in this encounter Results CHEST X-RAY 2 VW (07/17/2008 1:44 PM CDT) Anatomical Region Laterality Modality Other Specimen (Source) Anatomical Collection Method Collection Time Re ceived Time Location / / Volume Laterality 07/17/2008 1:44 PM CDT Impressions 07/17/2008 2:58 PM CDT EXAM: ??CHEST TWO VIEW* ??Jul 17, 2008 1 :44:00 PM HISTORY: ?? Fever. Chills. Alcohol withd arlin. COMPARISON: ??09/27/2006. FINDINGS: Negative. 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
--- OUTSIDE RECORDS SUMMARY | 2022-02-12 13:51 | XMS_ITS | Encounter Summary ---
:1960 Author Organization [place] Address [address] [place] [address] Care Team Providers Name Role Phone Unavailable Primary Care Provider Unavailable Encounter Details Date Type Department Care Team Description 09/19/[address] [facility] Tristan Egan SIS NOT YET Clinic Randolph MD Navin [address] [address] [phone] Social History Tobacco Use Types Packs/Day Years [...] Name Priority Date/Time Associated Diagnosis Comme nts HCL LDL-CHOLESTEROL Routine 09/19/2008 DIAGNOSIS NOT YET Res ults for this DEFINED procedure are i n the results section . HCL TRIGLYCERIDES Routine 09/19/2008 DIAGNOSIS NOT YET Resul ts for this DEFINED procedure are i n the results section . HCL HDL CHOLESTEROL Routine 09/19/2008 DIAGNOSIS NOT YET Res ults for this DEFINED procedure are i n the results section . HCL CHOLESTEROL Routine 09/19/2008 DIAGNOSIS NOT YET Results for this DEFINED procedure are i n the results section . documented in this encounter Results LDL-CHOLESTEROL [[id number]] (09/19/2008) P athologist Signature LDL Cholesterol 57 mg/dL MISYS Calculated Tristan Egan MD LABORATORY Performing Organization Address City/State/ZIP Code Phon e Number MISYS HDL CHOLESTEROL [[id number]] (09/19/2008) P athologist Signature HDL Cholesterol 43 mg/dL MISYS Tristan Egan MD LABORATORY Performing Organization Address [facility] Code Phon e Number MISYS TRIGLYCERIDES [30105.000] (09/19/2008) P athologist Signature Triglycerides 131 mg/dL MISYS Tristan Egan MD LABORATORY Performing Organization Address [facility] Phon e Number MISYS CHOLESTEROL [[id number]] (09/19/2008) P athologist Signature Cholesterol 126 115 - 199 MISYS mg/dL Tristan Egan MD LABORATORY Performing Organization Address [facility] Phon e Number MISYS documented in this encounter Visit Diagnoses Diagnosis DIAGNOSIS NOT YET DEFINED documented in this encounter Additional Health Concerns Infection Onset Date Last Indicated Resolved Time MRSA-Contact IsolationComment: 0 04/26/2021 11:03 AM 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
--- OUTSIDE RECORDS SUMMARY | 2022-02-12 13:51 | XMS_ITS | Encounter Summary ---
:1960 Author Organization [place] Address [address] [place] [address] Care Team Providers Name Role Phone Unavailable Primary Care Provider Unavailable Encounter Details Date Type Department Care Team Description 09/15/2008 Results Only [facility] Adriane, Andrea de luna, Hospital Results [place] [address] Social History Tobacco Use Types Packs/Day Years Used Date Smoking Tobacco: Never Alcohol Use Standard Drinks/Week Comments Yes 0 (1 standard drink = 0.6 oz pure alcoho l) socially approx 5 drinks/wk Sex Assigned at Date Recorded Not on file documented as of this encounter Plan of Treatment Not on filedocumented as of this encounter Procedures Procedure Name Priority Date/Time Associated Diagnosis Comme [facility] RT X-RAY FOOT Routine 09/15/2008 4:48 PM Resu lts for this 3+ VW CDT procedure are i n the results section. documented in this encounter Results RT X-RAY FOOT 3+ VW (09/15/2008 4:48 PM CDT) Anatomical Region Laterality Modality Other Specimen (Source) Anatomical Collection Method Collection Time Re ceived Time Location / / Volume Laterality 09/15/2008 4:48 PM CDT Impressions 09/16/2008 10:05 AM CDT FOOT THREE OR MORE VIEWS RIGHT September 15, 2 009 4:48:00 PM ?? HISTORY: Pain. Evaluate for gout versus cellulitis. COMPARISON: None. IMPRESSION: There is deformity at the ba se of the proximal phalanx of the small toe consistent with a fracture which may be acute. Correlate clinically for site of pain. No other ken ny abnormalities. 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
--- OUTSIDE RECORDS SUMMARY | 2022-02-12 13:51 | XMS_ITS | Encounter Summary ---
:1960 Author Organization [place] Address [address] [place] [id number] Care Team Providers Name Role Phone Unavailable Primary Care Provider Unavailable Encounter Details Date Type Department Care Team Description 03/13/2009 Historic Results INTERFACED REPORT [facility] Social History Tobacco Use Types Packs/Day Years Used Date Smoking Tobacco: Never Alcohol Use Standard Drinks/Week Comments Yes 0 (1 standard drink = 0.6 oz pure alcoho l) socially approx 5 drinks/wk Sex Assigned at Date Recorded Not on file documented as of this encounter Plan of Treatment Not on filedocumented as of this encounter Procedures Procedure Name Priority Date/Time Associated Comments Diagnosis TROPONIN I STAT 03/13/2009 11:03 PM Results for this PARTS ROOM CLERK procedure are i n the results section. N TERMINAL PRO BNP STAT 03/13/2009 11:03 PM Re sults for this OUTPATIENT PARTS ROOM CLERK procedure are i n the results section. MYOGLOBIN Routine 03/13/2009 11:03 PM Results for this PARTS ROOM CLERK procedure are i n the results section. MAGNESIUM STAT 03/13/2009 11:03 PM Results for this PARTS ROOM CLERK procedure are i n the results section. HEPATIC FUNCTION STAT 03/13/2009 11:03 PM Resu lts for this PANEL PARTS ROOM CLERK procedure are i n the results section. CK TOTAL Routine 03/13/2009 11:03 PM Results for this PARTS ROOM CLERK procedure are i n the results section. ETHYL ALCOHOL LEVEL STAT 03/13/2009 11:03 PM R esults for this PARTS ROOM CLERK procedure are i n the results section. BASIC METABOLIC STAT 03/13/2009 11:03 PM Resul ts for this PANEL PARTS ROOM CLERK procedure are i n the results section. TROPONIN I STAT 03/13/2009 8:58 PM Results f or this PARTS ROOM CLERK procedure are i n the results section. NT PROBNP INPATIENT Routine 03/13/2009 8:58 PM Re sults for this PARTS ROOM CLERK procedure are i n the results section. CBC WITH PLATELETS STAT 03/13/2009 8:58 PM Res ults for this PARTS ROOM CLERK procedure are i n the results section. documented in this encounter Results (ABNORMAL) Hepatic panel (03/13/2009 11:03 PM PARTS ROOM CLERK) Analysis Performed At Patho logist Time Signature AST 134 (H) 0 - 55 U/L MISYS Protein Total 8.0 6.8 - 8.8 MISYS g/dL Albumin 3.7 (L) 3.9 - 5.1 MISYS g/dL ALT 40 0 - 70 U/L MISYS Alkaline 130 40 - 150 M[facility] Phosphatase U/L Bilirubin 0.2 0.0 - 0.3 MISYS Conjugated mg/dL Bilirubin Delta 1.0 (H) 0.0 - 0.4 MISYS mg/dL Bilirubin Total 1.4 (H) 0.2 - 1.3 MISYS mg/dL Specimen Anatomical Collection Method Collection Time Receive d Time (Source) Location / / Volume Laterality 03/13/2009 11:03 03/13/2009 PM PARTS ROOM CLERK 11:09 PM PARTS ROOM CLERK [facility] LAB - BLOOD ORDERABLES Performing Organization Address City/State/ZIP Code Phon e Number MISYS (ABNORMAL) Basic metabolic panel (03/13/2009 11:03 PM PARTS ROOM CLERK) P athologist Signature Sodium 127 (L) 133 - 144 [facility] mmol/L Potassium 6.1 (HH) 3.4 - 5.3 M[facility] mmol/L Comment: Results confirmed by repeat test Specimen grossly lipemic Called to DIGNA ERB @ 1155 ON BY [facility] Chloride 82 (L) 94 - 109 mmol/L MISYS Comment: Results confirmed by repeat test Specimen grossly lipemic Called to DIGNA ERB @ 1155 ON BY [facility] Carbon Dioxide <5 (LL) 20 - 32 mmol/L MISYS Comment: Results confirmed by repeat test Specimen grossly lipemic Called to DIGNA ERB @ 1155 ON BY [facility] Glucose 102 (H) 60 - 99 mg/dL MISYS Urea Nitrogen 123 (H) 5 - 24 mg/dL MISYS Comment: Results confirmed by repeat test Specimen grossly lipemic Called to DIGNA ERB @ 2352 ON BY [facility] Creatinine 18.05 (H) 0.66 - 1.25 mg/dL MISYS Comment: New IDMS-traceable calibration ??rosalva oliver 08/23/07 Results confirmed by repeat test Specimen grossly lipemic Called to DIGNA VIVIANA @ 1152 ON [id number] BY [facility] GFR Estimate Not Calculated >60 mL/min/1.7m2 [facility] GFR Estimate If Black Not Calculated >60 mL/min/1.7m2 [facility] Calcium 8.4 (L) 8.5 - 10.4 mg/dL M[facility] Anion Gap 39 (H) 6 - 17 mmol/L M[facility] Specimen Anatomical Collection Method Collection Time Receive d Time (Source) Location / / Volume Laterality 03/13/2009 11:03 03/13/2009 PM PARTS ROOM CLERK 11:09 PM PARTS ROOM CLERK [facility] LAB - BLOOD ORDERABLES Performing Organization Address City/[facility] Phon e Number MISYS Alcohol ethyl (03/13/2009 11:03 PM PARTS ROOM CLERK) athologist Signature Ethanol g/dL <0.01 0.01 g/dL MISYS Specimen Anatomical Collection Method Collection Time Receive d Time (Source) Location / / Volume Laterality 03/13/2009 11:03 03/13/2009 PM PARTS ROOM CLERK 11:09 PM PARTS ROOM CLERK [facility] LAB - BLOOD ORDERABLES Performing Organization Address [facility] Code Phon e Number MISYS (ABNORMAL) Magnesium (03/13/2009 11:03 PM PARTS ROOM CLERK) P athologist Signature Magnesium 1.4 (L) 1.6 - 2.3 MISYS mg/dL Specimen Anatomical Collection Method Collection Time Receive d Time (Source) Location / / Volume Laterality 03/13/2009 11:03 03/13/2009 PM PARTS ROOM CLERK 11:09 PM PARTS ROOM CLERK [facility] LAB - BLOOD ORDERABLES Performing Organization Address City/[facility] Phon e Number MISYS (ABNORMAL) N terminal pro BNP outpatient (03/13/2009 11:03 PM PARTS ROOM CLERK) P athologist Signature N-Terminal Pro 5480 (H) 0 - 125 MISYS Bnp pg/mL Comment: Reference range shown and results flagge d as abnormal are for the outpatient, non acute settings. Establishing a base line value for each individual patient is useful for follow-up. Suggested inpatient cut points for confi rming diagnosis of CHFin an acute setting are: >450 pg/mL (age 18 to less than 50) >900 pg/mL (age 50 to less than 75) >1800 pg/mL (75 yrs and older) An inpatient or emergency department NT- proPBNP <300 pg/mL effectively rules out acute CHF, with 99% negative predictive value. Specimen Anatomical Collection Method Collection Time Receive d Time (Source) Location / / Volume Laterality 03/13/2009 11:03 03/13/2009 PM PARTS ROOM CLERK 11:09 PM PARTS ROOM CLERK Authorizing Provider Result [facility] LAB - BLOOD ORDERABLES Performing Organization Address City/[facility] Phon e Number MISYS (ABNORMAL) Troponin I (03/13/2009 11:03 PM PARTS ROOM CLERK) Analysis Performed At Patho logist Time Signature Troponin I ES 0.189 (HH) 0.000 - MISYS 0.034 ug/L Comment: Called to DIGNA MICHELLE @ 0773 ON [id number] BY [facility] Specimen Anatomical Collection Method Collection Time Receive d Time (Source) Location / / Volume Laterality 03/13/2009 11:03 03/13/2009 PM PARTS ROOM CLERK 11:09 PM PARTS ROOM CLERK Authorizing Provider Result [facility] LAB - BLOOD ORDERABLES Performing Organization Address City/[facility] Phon e Number MISYS (ABNORMAL) CK total (03/13/2009 11:03 PM PARTS ROOM CLERK) P athologist Signature CK Total 2596 (HH) 45 - 300 MISYS U/L Comment: Critical Value called to and read back [email or web address] [email or web address],AR Specimen Anatomical Collection Method Collection Time Receive d Time (Source) Location / / Volume Laterality 03/13/2009 11:03 03/14/2009 1:47 PM PARTS ROOM CLERK AM PARTS ROOM CLERK Authorizing Provider Result [facility] LAB - BLOOD ORDERABLES Performing Organization Address City/[facility] Phon e Number MISYS (ABNORMAL) Myoglobin (03/13/2009 11:03 PM PARTS ROOM CLERK) athologist Signature Myoglobin 8032 (H) <120 ug/L MISYS Specimen Anatomical Collection Method Collection Time Receive d Time (Source) Location / / Volume Laterality 03/13/2009 11:03 03/14/2009 1:47 PM PARTS ROOM CLERK AM PARTS ROOM CLERK Authorizing Provider Result [facility] LAB - BLOOD ORDERABLES Performing Organization Address City/[facility]/ZIP Code Phon e Number MISYS (ABNORMAL) CBC with platelets (03/13/2009 8:58 PM PARTS ROOM CLERK) [facility] MCV 95 78 - 100 MISYS fl MCH 32.7 26.5 - MISYS 33.0 pg MCHC 34.6 31.5 - MISYS 36.5 g/dL RDW 15.6 (H) 10.0 - MISYS 15.0 % WBC 9.1 4.0 - 11.0 MISYS 10e9/L RBC Count 3.64 (L) 4.4 - 5.9 MISYS 10e12/L Hemoglobin 11.9 (L) 13.3 - MISYS 17.7 g/dL Hematocrit 34.4 (L) 40.0 - MISYS 53.0 % Platelet Count 134 (L) 150 - 450 MISYS 10e9/L Specimen Anatomical Collection Method Collection Time Receive d Time (Source) Location / / Volume Laterality 03/13/2009 8:58 PM 9 9:33 PARTS ROOM CLERK PM PARTS ROOM CLERK Haroldo Arnold MD LAB - BLOOD ORDERABLES Performing Organization Address [facility]/ZIP Code Phon e Number MISYS Troponin I (03/13/2009 8:58 PM PARTS ROOM CLERK) [facility] Method Time Signature Troponin I ES Results 0.000 - MISYS questioned - 0.034 new specimen ug/L has been requested Comment: Charge credited NOTIFIED TO DIGNA ON ERB AT 2220 CORRECTED ON 03/13 AT 2317: PREVIOUSLY R EPORTED 0.218 Critical Value called to and read back by DIGNA (ERB) ON 05.13.08 AT 2224 BY [place] Specimen Anatomical Collection Method Collection Time Receive d Time (Source) Location / / Volume Laterality 03/13/2009 8:58 PM 9 9:33 PARTS ROOM CLERK PM PARTS ROOM CLERK Haroldo Arnold MD LAB - BLOOD ORDERABLES Performing Organization Address [facility]/ZIP Code Phon e Number MISYS Nt probnp inpatient (03/13/2009 8:58 PM PARTS ROOM CLERK) [facility] Method Time Signature N-Terminal Results 0 - 450 MISYS Pro BNP questioned - pg/mL Inpatient new specimen has been requested Comment: Charge credited NOTIFIED TO DIGNA ON ERB AT 2220 11.2 0.09 CORRECTED ON 03/13 AT 2317: PREVIOUSLY R EPORTED 5390 ?? Reference range shown and results flagged as abnormal are sug gested inpatient cut points for confirming diagnosis if CHF in an acute setting. Establishing a baseline value for each individual patient is useful f or follow up. An inpatient or emergency department NT proPBNP <300 pg/mL effect ively rules out acute CHF, with 99% negative predictive value. The outpatie nt non acute reference range for ruling out CHF is: ??0 125 pg/mL (age 18 to le ss than 75) ??0 450 pg/mL (age 75 yrs and older) Specimen Anatomical Collection Method Collection Time Receive d Time (Source) Location / / Volume Laterality 03/13/2009 8:58 PM 9 PARTS ROOM CLERK 10:34 PM PARTS ROOM CLERK Haroldo Arnold MD LAB - BLOOD ORDERABLES Performing Organization Address City/State/ZIP Code Phon e Number MISYS documented in this encounter Visit Diagnoses Not on filedocumented in this encounter Additional Health Concerns Infection Onset Date Last Indicated Resolved Time MRSA-Contact IsolationComment: 0 04/26/2021 11:03 AM PARTS ROOM CLERK Infection 

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
--- OUTSIDE RECORDS SUMMARY | 2022-02-12 13:51 | XMS_ITS | Encounter Summary ---
:1960 Author Organization [place] Address [address] [place] [address] Care Team Providers Name Role Phone No Ref-Primary, Physician Primary Care Provider [phone] Encounter Details Date Type Department Care Team Description 07/16/2008 Historic Results [facility] Heart Unknown, [facility] ider [address] [place] [address] Social History Tobacco Use Types [...] Name Priority Date/Time Associated Diagnosis Comme nts ECHO CARDIAC - HIM SCAN 07/16/2008 12:00 AM CDT - ARCHIVE documented in this encounter Results ECHO CARDIAC - HIM SCAN - ARCHIVE (07/16/2008 12:00 AM CDT) Anatomical Region Laterality Modality Echocardiography Specimen (Source) Anatomical Location Collection Method / Collectio n Time Received Time / Laterality Volume 07/16/2008 Narrative This result has an attachment that is no t available. 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
--- OUTSIDE RECORDS SUMMARY | 2022-02-12 13:51 | XMS_ITS | Encounter Summary ---
:1960 Author Organization [facility] Address [address] [place] [id number] Care Team Providers Name Role Phone Unavailable Primary Care Provider Unavailable Encounter Details Date Type Department Care Team Description 07/19/2008 Historic Notes INTERFACED REPORT Interface, Transcript on, Social History Tobacco Use Types Packs/Day Years Used Date Smoking Tobacco: Never Alcohol Use Standard Drinks/Week Comments Yes 0 (1 standard drink = 0.6 oz pure alcoho l) socially approx 5 drinks/wk Sex Assigned at Date Recorded Not on file documented as of this encounter Progress Notes Interface, Slurry Tank Tender - 07/11/2010 5:57 AM CDT Patient Status - Physical status Stable (s/s of potential complications absent or manageable) - Psychosocial status Stable Discharge Planning - Discharge From: [facility] - Patient Care Unit: [place] 3 - PCU - Discharge To: Home/Alternative home - Method of discharge: Ambulatory - Transportation: Private Discharge Information - Valuables returned Valuables returned - Discharge information Discharge instructions reviewed with pt/family/so; Prescriptions given - Mode of Travel Ambulatory Medications and Prescriptions - Medications and Prescriptions given to patient Prescriptions Support Services - Is home care No recommended? - Supplies sent/ordered No - Equipment No sent/ordered - Other Services No arranged Special Care Needs and Instructions - Diet Instructions: Regular diet - Activity As tolerated Instructions: - Report temp if 101 degrees F greater than: - Who patient should Primary MD call: - Is patient going home No with IV Catheter?: Follow Up Care - Instructions: Follow up with chem dep , Recheck Liver function test in 2-3 weeks , NO ALCOHOL Signatures Edwina Gray (RN)[Signed 12:19] Authored: Patient Status, Discharge Planning, Discharge Information, Medications and Prescriptions, Support Services, Special Care Needs and Instructions, Follow Up Care documented in this encounter Plan of Treatment Not on filedocumented as of this encounter Visit Diagnoses Not on filedocumented in this encounter Additional Health Concerns Infection Onset Date Last Indicated Resolved Time MRSA-Contact IsolationComment: 0 04/26/2021 11:03 AM 

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
--- OUTSIDE RECORDS SUMMARY | 2022-02-12 13:51 | XMS_ITS | Encounter Summary ---
:1960 Author Organization [facility] Address [address] [place] [address] Care Team Providers Name Role Phone Unavailable Primary Care Provider Unavailable Encounter Details Date Type Department Care Team Description 03/13/2009 Results Only [facility] Haroldo Sandoval MD Hospital Results EMERGENCY PHYSI [facility] [address] [place], [place] [id number] (Wo rk) Social History Tobacco Use Types [...] Name Priority Date/Time Associated Diagnosis Comme nts CHEST TWO VIEWS, Routine 03/13/2009 10:27 PM R esults for this FRONT/LAT FIRE PATROLLER procedure are i n the results section. documented in this encounter Results CHEST X-RAY 2 VW (03/13/2009 10:27 PM FIRE PATROLLER) Anatomical Region Laterality Modality Other Specimen (Source) Anatomical Collection Method Collection Time Re ceived Time Location / / Volume Laterality 03/13/2009 10:27 PM FIRE PATROLLER Impressions 03/14/2009 2:27 PM FIRE PATROLLER CHEST, TWO VIEWS ??03/13/2009, 10:27 PM INDICATION: A 48-year-old male with shor tness of breath. FINDINGS: Since 07/17/2008, there is a co nsiderably shallow inspiration. No pleural effusion or pneu mothorax. Bibasilar opacities are noted; unable to distinguish between atelectasis or possible pneumonia. Haroldo Arnold MD GENERAL IMAGING documented in this encounter Visit Diagnoses Not on filedocumented in this encounter Additional Health Concerns Infection Onset Date Last Indicated Resolved Time MRSA-Contact IsolationComment: 0 04/26/2021 11:03 AM FIRE PATROLLER Infection 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
--- OUTSIDE RECORDS SUMMARY | 2022-02-12 13:51 | XMS_ITS | Encounter Summary ---
:1960 Author Organization [facility] Address [address] [place] [address] Care Team Providers Name Role Phone Unavailable Primary Care Provider Unavailable Encounter Details Date Type Department Care Team Description 09/15/2008 Historic Results INTERFACED REPORT Jace Forrest [place] [address] Social History Tobacco Use Types Packs/Day Years Used Date Smoking Tobacco: Never Alcohol Use Standard Drinks/Week Comments Yes 0 (1 standard drink = 0.6 oz pure alcoho l) socially approx 5 drinks/wk Sex Assigned at Date Recorded Not on file documented as of this encounter Plan of Treatment Not on filedocumented as of this encounter Procedures Procedure Name Priority Date/Time Associated Comments Diagnosis CBC WITH PLATELETS & STAT 09/15/2008 4:18 PM R esults for this DIFFERENTIAL CDT procedure are i n the results section. URIC ACID STAT 09/15/2008 4:18 PM Results f or this CDT procedure are i n the results section. ERYTHROCYTE STAT 09/15/2008 4:18 PM Results f or this SEDIMENTATION RATE CDT procedure are in AUTO the results section. COMPREHENSIVE STAT 09/15/2008 4:18 PM Results for this METABOLIC PANEL CDT procedure ar e in the results section. documented in this encounter Results (ABNORMAL) CBC with platelets differential (09/15/2008 4:18 PM CDT) [facility] Method Time Signature MCV 100 78 - 100 MISYS fl MCH 32.9 26.5 - MISYS 33.0 pg MCHC 32.8 31.5 - MISYS 36.5 g/dL RDW 13.7 10.0 - MISYS 15.0 % WBC 7.8 4.0 - MISYS 11.0 10e9/L RBC Count 3.31 (L) 4.4 - 5.9 MISYS 10e12/L Hemoglobin 10.9 (L) 13.3 - MISYS 17.7 g/dL Hematocrit 33.2 (L) 40.0 - MISYS 53.0 % % Neutrophils 62 40 - 75 % MISYS % Lymphocytes 18 (L) 20 - 48 % MISYS % Monocytes 18 (H) 0 - 12 % MISYS % Eosinophils 2 0 - 6 % MISYS % Basophils 0 0 - 2 % MISYS Platelet Count 231 150 - 450 MISYS 10e9/L Absolute 4.8 1.6 - 8.3 MISYS Neutrophil 10e9/L Absolute 1.4 0.8 - 5.3 MISYS Lymphocytes 10e9/L Absolute 1.4 (H) 0.0 - 1.3 MISYS Monocytes 10e9/L Absolute 0.2 0.0 - 0.7 MISYS Eosinophils 10e9/L Absolute 0.0 0.0 - 0.2 MISYS Basophils 10e9/L Diff Method Automated MISYS Method Specimen Anatomical Collection Method Collection Time Receive d Time (Source) Location / / Volume Laterality 09/15/2008 4:18 PM 9 4:09 CDT PM CDT Andrea Forrest MD LAB - BLOOD ORDERABLES Performing Organization Address City/State/ZIP Code Phon e Number MISYS (ABNORMAL) Erythrocyte sedimentation rate auto (09/15/2008 4:18 PM CDT) P athologist Signature Sed Rate 34 (H) 0 - 15 mm/h MISYS Specimen Anatomical Collection Method Collection Time Receive d Time (Source) Location / / Volume Laterality 09/15/2008 4:18 PM 9 4:09 CDT PM CDT Andrea Forrest MD LAB - BLOOD ORDERABLES Performing Organization Address City/State/ZIP Code Phon e Number MISYS (ABNORMAL) Uric acid (09/15/2008 4:18 PM CDT) P athologist Signature Uric Acid 9.3 (H) 3.5 - 8.5 MISYS mg/dL Specimen Anatomical Collection Method Collection Time Receive d Time (Source) Location / / Volume Laterality 09/15/2008 4:18 PM 9 4:09 CDT PM CDT Andrea Forrest MD LAB - BLOOD ORDERABLES Performing Organization Address City/[facility] Phon e Number MISYS (ABNORMAL) Comprehensive metabolic panel (09/15/2008 4:18 PM CDT) P athologist Signature Sodium 136 133 - 144 MISYS mmol/L Potassium 4.1 3.4 - 5.3 MISYS mmol/L Chloride 103 94 - 109 MISYS mmol/L Carbon Dioxide 22 20 - 32 MISYS mmol/L Glucose 105 (H) 60 - 99 MISYS mg/dL Urea Nitrogen 16 5 - 24 MISYS mg/dL Creatinine 1.21 0.66 - MISYS 1.25 mg/dL Comment: New IDMS-traceable calibration beginning 08/23/07 GFR Estimate 65 >60 mL/min/1.7m2 MISYS GFR Estimate If Black 78 >60 mL/min/1.7m2 M ISYS Calcium 9.5 8.5 - 10.4 mg/dL MISYS AST 67 (H) 0 - 55 U/L MISYS Protein Total 7.9 6.8 - 8.8 g/dL MISYS Anion Gap 11 6 - 17 mmol/L MISYS Albumin 4.6 3.9 - 5.1 g/dL MISYS ALT 36 0 - 70 U/L MISYS Alkaline Phosphatase 67 40 - 150 U/L MISYS Bilirubin Total 0.7 0.2 - 1.3 mg/dL MISYS Specimen Anatomical Collection Method Collection Time Receive d Time (Source) Location / / Volume Laterality 09/15/2008 4:18 PM 9 4:09 CDT PM CDT Andrea Forrest MD LAB - BLOOD ORDERABLES Performing Organization Address City/[facility] Phon e Number MISYS documented in this encounter Visit Diagnoses Not on filedocumented in this encounter Additional Health Concerns Infection Onset Date Last Indicated Resolved Time MRSA-Contact IsolationComment: 0 04/26/2021 11:03 AM 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
--- OUTSIDE RECORDS SUMMARY | 2022-02-12 13:51 | XMS_ITS | Encounter Summary ---
:1960 Author Organization [place] [facility] Address [address] [place] [address] Care Team Providers Name Role Phone Unavailable Primary Care Provider Unavailable Encounter Details Date Type Department Care Team Description 07/16/2008 Historic Results [facility] Nany Austin Cle Elum MD [place] [address] [place], [place] CLINIC [id number] [phone] [place], [place] [address] (Wo rk) Social History Tobacco Use Types [...] Procedure Name Priority Date/Time Associated Comments Diagnosis BLOOD SMEAR MORPHOLOGY Routine 07/16/2008 6:55 Re sults for this AM CDT procedure are i n the results section. RETICULOCYTE COUNT Routine 07/16/2008 6:55 Result s for this AM CDT procedure are i n the results section. DIFFERENTIAL Routine 07/16/2008 6:55 Results for this AM CDT procedure are i n the results section. COMPREHENSIVE METABOLIC Routine 07/16/2008 6:55 R esults for this PANEL AM CDT procedure are i n the results section. CBC WITH PLATELETS Routine 07/16/2008 6:55 Result s for this AM CDT procedure are i n the results section. HEMATOPATHOLOGY Routine 07/16/2008 12:00 Results for this AM CDT procedure are i n the results section. documented in this encounter Results (ABNORMAL) CBC with platelets (07/16/2008 6:55 AM CDT) Analysis Performed At [facility] Time Signature MCV 97 78 - 100 MISYS fl MCH 32.1 26.5 - MISYS 33.0 pg MCHC 33.2 31.5 - MISYS 36.5 g/dL RDW 14.9 10.0 - MISYS 15.0 % WBC 6.4 4.0 - 11.0 MISYS 10e9/L RBC Count 3.08 (L) 4.4 - 5.9 MISYS 10e12/L Hemoglobin 9.9 (L) 13.3 - MISYS 17.7 g/dL Hematocrit 29.8 (L) 40.0 - MISYS 53.0 % Platelet Count 149 (L) 150 - 450 MISYS 10e9/L Specimen Anatomical Collection Method Collection Time Receive d Time (Source) Location / / Volume Laterality 07/16/2008 6:55 AM 9 8:17 CDT PM CDT Amna Austin MD LAB - BLOOD ORDERABLES Performing Organization Address City/State/ZIP Code Phon e Number MISYS (ABNORMAL) Comprehensive metabolic panel (07/16/2008 6:55 AM CDT) Analysis Performed At [facility] Time Signature Sodium 141 133 - 144 MISYS mmol/L Potassium 4.5 3.4 - 5.3 MISYS mmol/L Chloride 105 94 - 109 MISYS mmol/L Carbon Dioxide 21 20 - 32 MISYS mmol/L Glucose 83 60 - 99 MISYS mg/dL Urea Nitrogen 24 5 - 24 MISYS mg/dL Creatinine 2.09 (H) 0.66 - MISYS 1.25 mg/dL Comment: New IDMS-traceable calibration ??beginni ng 08/23/07 Reviewed, acceptable GFR Estimate 35 (L) >60 mL/min/1.7m2 MISYS GFR Estimate If Black 42 (L) >60 mL/min/1.7m2 M ISYS Calcium 8.6 8.5 - 10.4 mg/dL MISYS AST 241 (H) 0 - 55 U/L MISYS Protein Total 7.9 6.8 - 8.8 g/dL MISYS Comment: As of 07, reference range reflects plasma specimen type. Anion Gap 15 6 - 17 mmol/L MISYS Albumin 4.4 3.9 - 5.1 g/dL MISYS ALT 37 0 - 70 U/L MISYS Alkaline Phosphatase 88 40 - 150 U/L MISYS Bilirubin Total 1.1 0.2 - 1.3 mg/dL MISYS Specimen (Source) Anatomical Collection Method Collection Time Re ceived Time Location / / Volume Laterality 07/16/2008 6:55 AM 9 CDT Amna Austin MD LAB - BLOOD ORDERABLES Performing Organization Address City/[facility] Phon e Number MISYS Blood smear morphology (07/16/2008 6:55 AM CDT) [facility] [employer]ivatives Trader Method Time Signature Blood See MISYS Morphology Pathologist Smear 's Report Specimen (Source) Anatomical Collection Method Collection Time Re ceived Time Location / / Volume Laterality 07/16/2008 6:55 AM 9 CDT Amna Austin MD LAB - BLOOD ORDERABLES Performing Organization Address [facility] Phon e Number MISYS (ABNORMAL) Differential (07/16/2008 6:55 AM CDT) [facility] [employer]iv[employer] Tr[employer] Method Time Signature % Neutrophils 61 40 - 75 % MISYS % Lymphocytes 24 20 - 48 % MISYS % Monocytes 13 (H) 0 - 12 % MISYS % Eosinophils 1 0 - 6 % MISYS % Basophils 1 0 - 2 % MISYS Absolute 3.7 1.6 - 8.3 MISYS Neutrophil 10e9/L Absolute 1.4 0.8 - 5.3 MISYS Lymphocytes 10e9/L Absolute 0.8 0.0 - 1.3 MISYS Monocytes 10e9/L Absolute 0.1 0.0 - 0.7 MISYS Eosinophils 10e9/L Absolute 0.0 0.0 - 0.2 MISYS Basophils 10e9/L Platelet Decreased MISYS Estimate Diff Method Automated MISYS Method RBC Morphology Consistent MISYS with reported results Specimen Anatomical Collection Method Collection Time Receive d Time (Source) Location / / Volume Laterality 07/16/2008 6:55 AM 9 7:12 CDT AM CDT Amna Austin MD LAB - BLOOD ORDERABLES Performing Organization Address [facility] Phon e Number MISYS (ABNORMAL) Reticulocyte count (07/16/2008 6:55 AM CDT) Patholo gist Method Time Signature % Retic 0.7 0.5 - 2.0 MISYS % Absolute 22.6 (L) 25 - 95 MISYS Retic 10e9/L Retic Method Automated MISYS Method Specimen Anatomical Collection Method Collection Time Receive d Time (Source) Location / / Volume Laterality 07/16/2008 6:55 AM 9 7:14 CDT AM CDT Amna Austin MD LAB - BLOOD ORDERABLES Performing Organization Address City/State/ZIP Code Phon e Number MISYS Hematopathology (07/16/2008 12:00 AM CDT) Component Value Ref Test Analysis Performed At [facility] gist Range Method Time Signature Copath CASE: [id number] ^ COPATH Report Patient Name: ELIJAH BROWN MR#: [id number] Specimen #: [id number] Collected: 07/16/2008 Received: 07/16/2008 Reported: 07/16/2008 11:00 Ordering Phy(s): [facility]NA [place] TEST(S): Peripheral Smear Morphology FINAL DIAGNOSIS: Peripheral blood for morphology - Normochromic normocytic an emia. Borderline thrombocytopenia. ??Non-specific. ??See descripti on. Electronically signed out by: Augustin Morris M.D. CLINICAL HISTORY: Anemia. PERIPHERAL BLOOD DATA: Patient Value ? (Reference Ra nge >18y M) WBC ? 6.40 ? x10*9/L ? (4.0-11 .0 x 10*9/L) RBC ?3.08 ?x10*12/L ? (4.4-5.9 x10*12/L) Hemoglobin ?9.9 ?g/dL ?(13.3-17.7 g/dL) Hematocrit ?29.8 ?% ?(40.0-53.0 %) MCV ? 96.8 ? fL ?(78-100 fL) MCH ? 32.1 ? pg ?(26.5-33.0 pg) MCHC ?33. 2 ? g/dL ?(31.5-36.5 g/dL) RDW ? 14. 9 ?% ? (10.0- 15.0 %) Platelets ?149 ? x10*9/L ? (150-450 x10*9/L) Retic ? 0 .74 ?% ? (0.5-2.0 %) Differential ?? (100 cells) : ? Reference Range ?(Adult) Neutrophils ? 61% ?(40-75) Lymphocytes ?24% ?(20-48) Monocytes ?13% ?(0-12) Eosinophils ? 1% ?(0-6) Basophils ?1% (0-2) PERIPHERAL BLOOD MORPHOLOGY: The platelets showno significant artifactual clumping. ??The red cells appear normochromic normocytic and do not show significant anisopoikilocytosis. ??No fragmentation is present. ??The le ukocytes appear normal in number. ??The neutrophils are mature and gr anulated. The lymphocytes are small and mature appearing. ??No blasts are identified. ??No diagnostic dysplastic changes are seen. There is relative monocytosis, but absolute numbers are with in normal limits. ??There is no evidence of microangiopathic hemolysis . ??No specific morphologic cause for the anemia and borderline thrombocytopenia is seen on the peripheral smear. ??Splenic sequestration, blood loss, autoimmune causes, multifactorial etiologies, chronic diseases, medication or toxin reaction including eth anol with marrow suppression, nutritional disorders, early marrow diso rders, etc. should be clinically considered. ??Clinical correlation is r equired. JOSE RAMONK/kalina 07-16-08 TESTING LAB LOCATION: [facility] [address] [place], [place] ??[id number] COLLECTION SITE: Client: ??[facility] Location: ??MS3 (R) Specimen (Source) Anatomical Collection Method Collection Time Re ceived Time Location / / Volume Laterality 07/16/2008 07/16/2008 11:0 0 AM CDT Amna Austin MD LAB - COPATH SPECIAL DIAG ORDERABLES Performing Organization Address City/State/ZIP Code Phon e Number COPATH documented in this encounter Visit Diagnoses Not on filedocumented in this encounter Additional Health Concerns Infection Onset Date Last Indicated Resolved Time MRSA-Contact IsolationComment: 0 04/26/2021 11:03 AM STUDENT ADMISSIONS CLERK Infection 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
--- OUTSIDE RECORDS SUMMARY | 2022-02-12 13:51 | XMS_ITS | Encounter Summary ---
:1960 Author Organization [place] Address [address] [place] [address] Care Team Providers Name Role Phone Unavailable Primary Care Provider Unavailable Encounter Details Date Type Department Care Team Description 07/18/2008 Historic Results [facility] Yrn Voss, [facility] [address] [place], [place] [address] [id number] [address] [place] [address] (Wo rk) Social History Tobacco Use Types [...] Name Priority Date/Time Associated Diagnosis Comme nts HEPATIC FUNCTION Routine 07/18/2008 1:35 PM Resul ts for this PANEL CDT procedure are i n the results section. MAGNESIUM Routine 07/18/2008 7:10 AM Results f or this CDT procedure are i n the results section. BASIC METABOLIC Routine 07/18/2008 7:10 AM Result s for this PANEL CDT procedure are i n the results section. CBC WITH PLATELETS Routine 07/18/2008 7:10 AM Res ults for this CDT procedure are i n the results section. documented in this encounter Results (ABNORMAL) Hepatic panel (07/18/2008 1:35 PM CDT) P athologist Signature AST 563 (H) 0 - 55 U/L MISYS Protein Total 7.7 6.8 - 8.8 MISYS g/dL Comment: As of 07, reference range reflects plasma specimen type. Albumin 4.1 3.9 - 5.1 g/dL MISYS ALT 114 (H) 0 - 70 U/L MISYS Alkaline Phosphatase 97 40 - 150 U/L MISYS Bilirubin Conjugated 0.0 0.0 - 0.3 mg/dL MIS YS Bilirubin Delta 0.0 0.0 - 0.4 mg/dL MISYS Bilirubin Total 1.1 0.2 - 1.3 mg/dL MISYS Specimen Anatomical Collection Method Collection Time Receive d Time (Source) Location / / Volume Laterality 07/18/2008 1:35 PM 9 CDT 12:19 PM CDT Gila Voss MD LAB - BLOOD ORDERABLES Performing Organization Address City/State/ZIP Code Phon e Number MISYS (ABNORMAL) CBC with platelets (07/18/2008 7:10 AM CDT) Analysis Performed At Patho logist Time Signature MCV 97 78 - 100 MISYS fl MCH 32.4 26.5 - MISYS 33.0 pg MCHC 33.3 31.5 - MISYS 36.5 g/dL RDW 14.1 10.0 - MISYS 15.0 % WBC 6.3 4.0 - 11.0 MISYS 10e9/L RBC Count 3.06 (L) 4.4 - 5.9 MISYS 10e12/L Hemoglobin 9.9 (L) 13.3 - MISYS 17.7 g/dL Hematocrit 29.7 (L) 40.0 - MISYS 53.0 % Platelet Count 136 (L) 150 - 450 MISYS 10e9/L Specimen (Source) Anatomical Collection Method Collection Time Re ceived Time Location / / Volume Laterality 07/18/2008 7:10 AM 9 CDT Gila Voss MD LAB - BLOOD ORDERABLES Performing Organization Address City/State/ZIP Code Phon e Number MISYS (ABNORMAL) Basic metabolic panel (07/18/2008 7:10 AM CDT) P athologist Signature Sodium 135 133 - 144 MISYS mmol/L Potassium 4.5 3.4 - 5.3 MISYS mmol/L Chloride 101 94 - 109 MISYS mmol/L Carbon Dioxide 25 20 - 32 MISYS mmol/L Glucose 107 (H) 60 - 99 MISYS mg/dL Urea Nitrogen 10 5 - 24 MISYS mg/dL Creatinine 1.03 0.66 - MISYS 1.25 mg/dL Comment: New IDMS-traceable calibration beginning 08/23/07 GFR Estimate 78 >60 mL/min/1.7m2 MISYS GFR Estimate If Black >90 >60 mL/min/1.7m2 M ISYS Calcium 9.5 8.5 - 10.4 mg/dL MISYS Anion Gap 9 6 - 17 mmol/L MISYS Specimen (Source) Anatomical Collection Method Collection Time Re ceived Time Location / / Volume Laterality 07/18/2008 7:10 AM 9 CDT Gila Voss MD LAB - BLOOD ORDERABLES Performing Organization Address City/State/ZIP Code Phon e Number MISYS Magnesium (07/18/2008 7:10 AM CDT) P athologist Signature Magnesium 2.0 1.6 - 2.3 MISYS mg/dL Specimen (Source) Anatomical Collection Method Collection Time Re ceived Time Location / / Volume Laterality 07/18/2008 7:10 AM 9 CDT Gila Voss MD LAB - BLOOD ORDERABLES Performing Organization Address City/State/ZIP Code Phon e Number MISYS documented in this encounter Visit Diagnoses Not on filedocumented in this encounter Additional Health Concerns Infection Onset Date Last Indicated Resolved Time MRSA-Contact IsolationComment: 0 04/26/2021 11:03 AM PROCEDURE 

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
--- OUTSIDE RECORDS SUMMARY | 2022-02-12 13:51 | XMS_ITS | Encounter Summary ---
:1960 Author Organization [place] Address [address] [place] [address] Care Team Providers Name Role Phone Unavailable Primary Care Provider Unavailable Encounter Details Date Type Department Care Team Description 07/19/2008 Historic Results [facility] Yrn Voss, [facility] [address] [place], [place] [address] [id number] [address] [place] [address] (Wo rk) Social History Tobacco Use Types [...] Name Priority Date/Time Associated Diagnosis Comme nts MAGNESIUM Routine 07/19/2008 7:15 AM Results f or this CDT procedure are i n the results section. BASIC METABOLIC Routine 07/19/2008 7:15 AM Result s for this PANEL CDT procedure are i n the results section. CBC WITH PLATELETS Routine 07/19/2008 7:15 AM Res ults for this CDT procedure are i n the results section. documented in this encounter Results (ABNORMAL) CBC with platelets (07/19/2008 7:15 AM CDT) Analysis Performed At Patho logist Time Signature MCV 100 78 - 100 MISYS fl MCH 31.8 26.5 - MISYS 33.0 pg MCHC 31.9 31.5 - MISYS 36.5 g/dL RDW 13.8 10.0 - MISYS 15.0 % WBC 5.9 4.0 - 11.0 MISYS 10e9/L RBC Count 3.33 (L) 4.4 - 5.9 MISYS 10e12/L Hemoglobin 10.6 (L) 13.3 - MISYS 17.7 g/dL Hematocrit 33.2 (L) 40.0 - MISYS 53.0 % Platelet Count 176 150 - 450 MISYS 10e9/L Specimen (Source) Anatomical Collection Method Collection Time Re ceived Time Location / / Volume Laterality 07/19/2008 7:15 AM 9 CDT Gila Voss MD LAB - BLOOD ORDERABLES Performing Organization Address City/State/ZIP Code Phon e Number MISYS (ABNORMAL) Basic metabolic panel (07/19/2008 7:15 AM CDT) P athologist Signature Sodium 130 (L) 133 - 144 MISYS mmol/L Potassium 4.8 3.4 - 5.3 MISYS mmol/L Chloride 98 94 - 109 MISYS mmol/L Carbon Dioxide 24 20 - 32 MISYS mmol/L Glucose 108 (H) 60 - 99 MISYS mg/dL Urea Nitrogen 7 5 - 24 MISYS mg/dL Creatinine 1.00 0.66 - MISYS 1.25 mg/dL Comment: New IDMS-traceable calibration beginning 08/23/07 GFR Estimate 81 >60 mL/min/1.7m2 MISYS GFR Estimate If Black >90 >60 mL/min/1.7m2 M ISYS Calcium 9.6 8.5 - 10.4 mg/dL MISYS Anion Gap 8 6 - 17 mmol/L MISYS Specimen (Source) Anatomical Collection Method Collection Time Re ceived Time Location / / Volume Laterality 07/19/2008 7:15 AM 9 CDT Gila Voss MD LAB - BLOOD ORDERABLES Performing Organization Address City/State/ZIP Code Phon e Number MISYS (ABNORMAL) Magnesium (07/19/2008 7:15 AM CDT) P athologist Signature Magnesium 1.5 (L) 1.6 - 2.3 MISYS mg/dL Specimen (Source) Anatomical Collection Method Collection Time Re ceived Time Location / / Volume Laterality 07/19/2008 7:15 AM 03/28/200 9 CDT Gila Voss MD LAB - BLOOD ORDERABLES Performing Organization Address City/State/ZIP Code Phon e Number MISYS documented in this encounter Visit Diagnoses Not on filedocumented in this encounter Additional Health Concerns Infection Onset Date Last Indicated Resolved Time MRSA-Contact IsolationComment: 0 04/26/2021 11:03 AM ROTARY DRUM TANNER Infection 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
--- OUTSIDE RECORDS SUMMARY | 2022-02-12 13:51 | XMS_ITS | Encounter Summary ---
:1960 Author Organization [place] Address [address] [place] [address] Care Team Providers Name Role Phone Unavailable Primary Care Provider Unavailable Encounter Details Date Type Department Care Team Description 09/08/2008 Emergency room [facility] Jason Shore, Hospital Results [facility] CARMEN MCKOY [address] [place], [place] [address] (Wo rk) Social History Tobacco Use Types Packs/Day Years Used Date Smoking Tobacco: Never Alcohol Use Standard Drinks/Week Comments Yes 0 (1 standard drink = 0.6 oz pure alcoho l) socially approx 5 drinks/wk Sex Assigned at Date Recorded Not on file documented as of this encounter Progress Notes Jason Shore MD - 10/31/2008 6:49 AM CDT FINAL CHIEF COMPLAINT: Elijah Brown is a 47-year-old male with a chief complaint of falling over. HISTORY OF PRESENT ILLNESS: The patient is a 47-year-old male who was brought in by EMS. He apparently was at work and was falling down. The patient was noted to be drinking and was brought here by EMS for arrival. On arrival the patient smells of alcohol. He is intoxicated. He does admit two drinks. The patient denies head injury or loss of consciousness. He feels otherwise well. PAST MEDICAL HISTORY: High blood pressure and high cholesterol. CURRENT MEDICATIONS: Lipitor and lisinopril. ALLERGIES: The patient has no known drug allergies. FAMILY HISTORY: Negative. SOCIAL HISTORY: Here alone. He lives with a friend. REVIEW OF SYSTEMS: Negative except as above. PHYSICAL EXAMINATION: GENERAL: This is a well-appearing 47-year-old male. VITAL SIGNS: Blood pressure 134/80, pulse 119, respirations 16, oral temperature 97.8. HEENT: Thereis no evidence of head trauma. Pupils are equally round and reactive to light. Breath smells of alcohol. NECK: Supple. CHEST: Regular. PULMONARY: Clear to auscultation. ABDOMEN: Soft and nontender. EXTREMITIES: No edema, no rash. SKIN: Intact. NEUROLOGIC: The patient is awake and alert. He moves extremities to command and he is intoxicated. EMERGENCY DEPARTMENT COURSE: Due to presentation, the patient had IV established. A liter of fluid was given. The patient had lab tests sent including CBC which was normal. Hemoglobin was somewhat lowat 9.7. The previous hemoglobins were in this range and the patient's platelet count was normal. Elec trolytes demonstrated slightly low bicarbonate at 18, creatinine of 1.3, magnesium level slightly low at 1.4, alcohol level came back quite elevated at 0.47. I did discuss results with the patient. Ultimately, the patient visited the hospital here in June. He was seen by a chemical dependency sales support specialist, he was felt to be a vulnerable adult. Ultimately, I gave the patient 2 options. I did offer him Detox which he did not want to as he simply wanted to go home. I told him somebody who was not drinkinghad to come and represent him to pick him up to take him home. His friend did show up who apparentlyI spoke with separately from the patient. I did emphasize to her my concerns with the patient's significant alcoholism and alcoholic behavior. I did offer the patient IV magnesium and a banana bag. Thepatient pulled his IV and wanted to go home. The patient will be discharged home with recommendations and followup. I did explain to his friend that ultimately my recommendations are not to come pick hi m up in the future as the patient should go to detox, each time he reports to Medicine for evaluation of intoxication. The patient is intoxicated here but seems to be tolerating alcohol level 0.47 without difficulty and seems to function relatively normally. Ultimately this is a sign of high toleranceand most likely related to significant daily drinking. His friend did mention that his entire familyhas problems with drinking, but the patient's friend did agree to take him home today. The patient'sfriend will transport the patient home. The patient stated that he had magnesium supplementation at home. I will recommend followup with his primary doctor for a magnesium recheck. DIAGNOSES: 1. Alcoholism. 2. Alcohol intoxication. 3. Poor insight. Electronically signed on 10/31/2008 06:48 by JASON SHORE MD MT: [id number] Name: ELIJAH BROWN MRN: [id number] Account: [id number] : 1960 Visit Date: 09/08/2008 Document: [id number] documented in this encounter Plan of Treatment Not on filedocumented as of this encounter Visit Diagnoses Not on filedocumented in this encounter Additional Health Concerns Infection Onset Date Last Indicated Resolved Time MRSA-Contact IsolationComment: 0 04/26/2021 11:03 AM CHROMOSOMAL DISORDERS COUNSELOR Infection 

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
--- OUTSIDE RECORDS SUMMARY | 2022-02-12 13:51 | XMS_ITS | Encounter Summary ---
:1960 Author Organization [place] Address [address] [place] [address] Care Team Providers Name Role Phone Unavailable Primary Care Provider Unavailable Encounter Details Date Type Department Care Team Description 07/17/2008 Historic Results [facility] Yrn Voss, [facility] [address] [place], [place] [address] [id number] [address] [place] [address] (Wo rk) Social History Tobacco Use Types [...] Procedure Name Priority Date/Time Associated Comments Diagnosis MAGNESIUM Timed 07/17/2008 6:15 PM Results f or this CDT procedure are i n the results section. ROUTINE UA WITH Routine 07/17/2008 12:45 Results for this MICROSCOPIC PM CDT procedure are i n the results section. URINE CULTURE Routine 07/17/2008 12:45 Results fo r this PM CDT procedure are i n the results section. MAGNESIUM Routine 07/17/2008 7:05 AM Results f or this CDT procedure are i n the results section. ETHYL ALCOHOL LEVEL Routine 07/17/2008 7:05 AM Re sults for this CDT procedure are i n the results section. BASIC METABOLIC PANEL Routine 07/17/2008 7:05 AM Results for this CDT procedure are i n the results section. CBC WITH PLATELETS Routine 07/17/2008 7:05 AM Res ults for this CDT procedure are i n the results section. documented in this encounter Results (ABNORMAL) Magnesium (07/17/2008 6:15 PM CDT) athologist Signature Magnesium 2.8 (H) 1.6 - 2.3 MISYS mg/dL Specimen Anatomical Collection Method Collection Time Receive d Time (Source) Location / / Volume Laterality 07/17/2008 6:15 PM 9 6:00 CDT PM CDT Liudmila Austin MD LAB - BLOOD ORDERABLES Performing Organization Address City/State/ZIP Code Phon e Number MISYS (ABNORMAL) Routine UA with microscopic (07/17/2008 12:45 PM CDT) Component Value Ref Test Analysis Performed At [facility] [employer] Range Method Time Signature Source Unspecified MISYS Urine Color Urine Yellow MISYS Appearance Urine Clear MISYS Glucose Urine Negative NEG MISYS mg/dL Bilirubin Urine Negative NEG MISYS Ketones Urine Negative NEG MISYS mg/dL Specific [place] 1.014 1.003 - MISYS Urine 1.035 Blood Urine Negative NEG MISYS pH Urine 6.0 5.0 - MISYS 7.0 pH Protein Albumin Negative NEG MISYS Urine mg/dL Urobilinogen Normal 0.0 - MISYS mg/dL 2.0 mg/dL Nitrite Urine Negative NEG MISYS Leukocyte Negative NEG MISYS Esterase Urine WBC Urine 3 (H) 0 - 2 MISYS /HPF RBC Urine <1 0 - 2 MISYS /HPF Squamous <1 0 - 1 MISYS Epithelial /HPF /HPF Urine Specimen Anatomical Collection Method Collection Time Receive d Time (Source) Location / / Volume Laterality 07/17/2008 12:45 07/17/2008 PM CDT 10:39 AM CDT Gila Voss MD LAB - URINE ORDERABLES Performing Organization Address City/[facility]/ZIP Code Phon e Number MISYS Urine culture (07/17/2008 12:45 PM CDT) [facility] gist Method Time Signature Specimen Unspecified MISYS Description Urine Culture Micro No growth MISYS Micro Report FINAL MISYS Status 07/19/2008 Specimen Anatomical Collection Method Collection Time Receive d Time (Source) Location / / Volume Laterality 07/17/2008 12:45 07/17/2008 PM CDT 10:39 AM CDT Gila Voss MD LAB - MICRO GENERAL ORDERABL ES Performing Organization Address City/State/ZIP Code Phon e Number MISYS (ABNORMAL) Basic metabolic panel (07/17/2008 7:05 AM CDT) P athologist Signature Sodium 135 133 - 144 MISYS mmol/L Potassium 4.7 3.4 - 5.3 MISYS mmol/L Chloride 102 94 - 109 MISYS mmol/L Carbon Dioxide 25 20 - 32 MISYS mmol/L Glucose 105 (H) 60 - 99 MISYS mg/dL Urea Nitrogen 18 5 - 24 MISYS mg/dL Creatinine 1.14 0.66 - MISYS 1.25 mg/dL Comment: New IDMS-traceable calibration beginning 08/23/07 GFR Estimate 69 >60 mL/min/1.7m2 MISYS GFR Estimate If Black 84 >60 mL/min/1.7m2 M ISYS Calcium 9.2 8.5 - 10.4 mg/dL MISYS Anion Gap 9 6 - 17 mmol/L MISYS Specimen (Source) Anatomical Collection Method Collection Time Re ceived Time Location / / Volume Laterality 07/17/2008 7:05 AM 9 CDT Gila Voss MD LAB - BLOOD ORDERABLES Performing Organization Address City/State/ZIP Code Phon e Number MISYS (ABNORMAL) CBC with platelets (07/17/2008 7:05 AM CDT) Analysis Performed At Patho logist Time Signature MCV 98 78 - 100 MISYS fl MCH 32.2 26.5 - MISYS 33.0 pg MCHC 33.0 31.5 - MISYS 36.5 g/dL RDW 14.5 10.0 - MISYS 15.0 % WBC 6.5 4.0 - 11.0 MISYS 10e9/L RBC Count 2.95 (L) 4.4 - 5.9 MISYS 10e12/L Hemoglobin 9.5 (L) 13.3 - MISYS 17.7 g/dL Hematocrit 28.8 (L) 40.0 - MISYS 53.0 % Platelet Count 129 (L) 150 - 450 MISYS 10e9/L Specimen (Source) Anatomical Collection Method Collection Time Re ceived Time Location / / Volume Laterality 07/17/2008 7:05 AM 03/26/200 9 CDT Gila Voss MD LAB - BLOOD ORDERABLES Performing Organization Address City/[facility]/ZIP Code Phon e Number MISYS Alcohol ethyl (07/17/2008 7:05 AM CDT) P athologist Signature Ethanol g/dL <0.01 0.01 g/dL MISYS Specimen (Source) Anatomical Collection Method Collection Time Re ceived Time Location / / Volume Laterality 07/17/2008 7:05 AM 9 CDT Gila Voss MD LAB - BLOOD ORDERABLES Performing Organization Address [facility] Phon e Number MISYS (ABNORMAL) Magnesium (07/17/2008 7:05 AM CDT) P athologist Signature Magnesium 1.2 (L) 1.6 - 2.3 MISYS mg/dL Specimen (Source) Anatomical Collection Method Collection Time Re ceived Time Location / / Volume Laterality 07/17/2008 7:05 AM 9 CDT Gila Voss MD LAB - BLOOD ORDERABLES Performing Organization Address 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
--- OUTSIDE RECORDS SUMMARY | 2022-02-12 13:51 | XMS_ITS | Encounter Summary ---
:1960 Author Organization [place] Address [address] [place] [address] Care Team Providers Name Role Phone Unavailable Primary Care Provider Unavailable Encounter Details Date Type Department Care Team Description 09/08/2008 Historic Results INTERFACED REPORT Marie Orozco MD EMERGENCY PHYSIC IARACHEL MCKOY [address] [place], [place] [address] (Wo rk) Social History [...] Comments Diagnosis DRUG ABUSE SCREEN 77 STAT 09/08/2008 6:48 PM R esults for this URINE (FL, RH, SH) CDT procedure are in the results section. CBC WITH PLATELETS & STAT 09/08/2008 6:40 PM R esults for this DIFFERENTIAL CDT procedure are i n the results section. MAGNESIUM STAT 09/08/2008 6:40 PM Results f or this CDT procedure are i n the results section. ETHYL ALCOHOL LEVEL STAT 09/08/2008 6:40 PM Re sults for this CDT procedure are i n the results section. BASIC METABOLIC PANEL STAT 09/08/2008 6:40 PM Results for this CDT procedure are i n the results section. documented in this encounter Results Drug abuse screen 77 urine (FL, RH, SH) (09/08/2008 6:48 PM CDT) [facility] Method Time Signature Amphetamine Qual Negative NEG [...] Time (Source) Location / / Volume Laterality 09/08/2008 6:48 PM 9 6:23 CDT PM CDT Jason Orozco MD LAB - URINE ORDERABLES Performing Organization Address City/State/ZIP Code Phon e Number MISYS (ABNORMAL) CBC with platelets differential (09/08/2008 6:40 PM CDT) [facility] gist Method Time Signature MCV 99 78 - 100 MISYS fl MCH 31.9 26.5 - MISYS 33.0 pg MCHC 32.2 31.5 - MISYS 36.5 g/dL RDW 14.4 10.0 - MISYS 15.0 % WBC 4.5 4.0 - MISYS 11.0 10e9/L RBC Count 3.04 (L) 4.4 - 5.9 MISYS 10e12/L Hemoglobin 9.7 (L) 13.3 - MISYS 17.7 g/dL Hematocrit 30.1 (L) 40.0 - MISYS 53.0 % % Neutrophils 48 40 - 75 % MISYS % Lymphocytes 41 20 - 48 % MISYS % Monocytes 9 0 - 12 % MISYS % Eosinophils 1 0 - 6 % MISYS % Basophils 1 0 - 2 % MISYS Platelet Count 150 150 - 450 MISYS 10e9/L Absolute 2.1 1.6 - 8.3 MISYS Neutrophil 10e9/L Absolute 1.8 0.8 - 5.3 MISYS Lymphocytes 10e9/L Absolute 0.4 0.0 - 1.3 MISYS Monocytes 10e9/L Absolute 0.1 0.0 - 0.7 MISYS Eosinophils 10e9/L Absolute 0.1 0.0 - 0.2 MISYS Basophils 10e9/L Diff Method Automated MISYS Method Specimen Anatomical Collection Method Collection Time Receive d Time (Source) Location / / Volume Laterality 09/08/2008 6:40 PM 9 6:23 CDT PM CDT Jason Orozco MD LAB - BLOOD ORDERABLES Performing Organization Address City/State/ZIP Code Phon e Number MISYS (ABNORMAL) Basic metabolic panel (09/08/2008 6:40 PM CDT) P athologist Signature Sodium 142 133 - 144 MISYS mmol/L Comment: Reviewed, acceptable Potassium 4.6 3.4 - 5.3 mmol/L MISYS Chloride 107 94 - 109 mmol/L MISYS Carbon Dioxide 18 (L) 20 - 32 mmol/L MISYS Glucose 94 60 - 99 mg/dL MISYS Urea Nitrogen 18 5 - 24 mg/dL MISYS Creatinine 1.33 (H) 0.66 - 1.25 mg/dL MISYS Comment: New IDMS-traceable calibration beginning 08/23/07 GFR Estimate 58 (L) >60 mL/min/1.7m2 MISYS GFR Estimate If Black 70 >60 mL/min/1.7m2 M ISYS Calcium 8.0 (L) 8.5 - 10.4 mg/dL MISYS Anion Gap 17 6 - 17 mmol/L MISYS Specimen Anatomical Collection Method Collection Time Receive d Time (Source) Location / / Volume Laterality 09/08/2008 6:40 PM 9 6:23 CDT PM CDT Jason Orozco MD LAB - BLOOD ORDERABLES Performing Organization Address City/State/ZIP Code Phon e Number MISYS (ABNORMAL) Alcohol ethyl (09/08/2008 6:40 PM CDT) P athologist Signature Ethanol g/dL 0.47 (HH) 0.01 g/dL MISYS Comment: Specimen run with a dilution Critical Value called to and read back by SHADY) ON 09.08.08 @ 1908 BY AN Specimen Anatomical Collection Method Collection Time Receive d Time (Source) Location / / Volume Laterality 09/08/2008 6:40 PM 9 6:23 CDT PM CDT Jason Orozco MD LAB - BLOOD ORDERABLES Performing Organization Address City/State/ZIP Code Phon e Number MISYS (ABNORMAL) Magnesium (09/08/2008 6:40 PM CDT) P athologist Signature Magnesium 1.4 (L) 1.6 - 2.3 MISYS mg/dL Specimen Anatomical Collection Method Collection Time Receive d Time (Source) Location / / Volume Laterality 09/08/2008 6:40 PM 9 6:23 CDT PM CDT Jason Orozco MD LAB - BLOOD ORDERABLES Performing Organization Address City/State/ZIP Code Phon e Number MISYS documented in this encounter Visit Diagnoses Not on filedocumented in this encounter Additional Health Concerns Infection Onset Date Last Indicated Resolved Time MRSA-Contact IsolationComment: 0 04/26/2021 11:03 AM 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
--- OUTSIDE RECORDS SUMMARY | 2022-02-12 13:51 | XMS_ITS | Encounter Summary ---
:1960 Author Organization [place] Address [address] [place] [address] Care Team Providers Name Role Phone Unavailable Primary Care Provider Unavailable Encounter Details Date Type Department Care Team Description 07/15/2008 Historic Results INTERFACED REPORT Interface, Italo tai [...] Diagnosis Comme nts EKG 12 LEAD Routine 07/15/2008 4:52 PM Results f or this CDT procedure are i n the results section . documented in this encounter Results EKG 12 LEAD (07/15/2008 4:52 PM CDT) Component Value Ref Range Test Analysis Performed Pathologis t Method Time At Signature Ventricular Rate 81 BPM RADIOLOGY RESULTS Atrial Rate 81 BPM RADIOLOGY RESULTS MS Interval 142 ms RADIOLOGY RESULTS QRS Duration 112 ms RADIOLOGY RESULTS QT 342 ms RADIOLOGY RESULTS QTc 397 ms RADIOLOGY RESULTS P [place] 38 degrees RADIOLOGY RESULTS R AXIS -8 degrees RADIOLOGY RESULTS T [place] 42 degrees RADIOLOGY RESULTS Interpretation AGE AND GENDER SPECIFIC ECG ANALYSIS RADIOLOGY ECG Sinus rhythm RESULTS Nonspecific T wave abnormality Abnormal ECG Unconfirmed report - interpretation of this ECG is compute r generated - see medical record for final interpretation Specimen Anatomical Collection Method Collection Time Receive d Time (Source) Location / / Volume Laterality 07/15/2008 4:52 PM 9 9:33 CDT AM CDT Transcripton Interface ECG ORDERABLES Performing Organization Address City/State/ZIP Code Phon e Number RADIOLOGY RESULTS documented in this encounter Visit Diagnoses Not on filedocumented in this encounter Additional Health Concerns Infection Onset Date Last Indicated Resolved Time MRSA-Contact IsolationComment: 0 04/26/2021 11:03 AM 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
--- OUTSIDE RECORDS SUMMARY | 2022-02-12 13:51 | XMS_ITS | Encounter Summary ---
:1960 Author Organization [place] Address [address] [place] [address] Care Team Providers Name Role Phone Unavailable Primary Care Provider Unavailable Reason for Visit Reason Comments RECHECK Patient here for recheck and refill on omeprozole and has some questions about the valium and how its working Encounter Details Date Type Department Care Team Description 01/17/2008 Office Visit [facility] Julius Welsh, Unspecif ied, Hemorrhage of Gastrointestinal Tract; [facility] Delirium Tremens, Alcohol Withdrawal Ind ed [address] [place] [address] [place] [id number] [place], [place] [phone] [address] Social History Tobacco Use Types Packs/Day Years Used Date Smoking Tobacco: Never Alcohol Use Standard Drinks/Week Comments Yes 0 (1 standard drink = 0.6 oz pure alcoho l) socially approx 5 drinks/wk Sex Assigned at Date Recorded Not on file documented as of this encounter Last Filed Vital Signs Vital Sign Reading Time Taken Comments Blood Pressure 94/60 01/17/2008 1:00 PM CDT Pulse 80 01/17/2008 1:00 PM CDT Temperature 36.8 ??C (98.3 ??F) 01/17/2008 1:00 PM CDT Respiratory Rate - - Oxygen Saturation - - Inhaled Oxygen Concentration - - Weight 77.1 kg (170 lb) 01/17/2008 1:00 PM CDT Height 172.7 cm (5' 8) 01/17/2008 1:00 PM CDT Body Mass Index 25.85 01/17/2008 1:00 PM CDT documented in this encounter Progress Notes Julius Welsh - 01/17/2008 1:38 PM CDT Pt here for med check. Heb has hx of bleeding ulcer and GI has advised him to take double-dose PPI indefinitely. He tried to stop for two months on his own and then resumed when stomach began to botherhim. He is asympomatic upon resumption, though he requires refill now. His last use of alcohol was 4days ago. He uses valium for DTs. Histories Updated through 01-17-2008: Past Medical History Diagnosis Date ??? Unspecified Essential Hypertension ??? Other and Unspecified Hyperlipidemia ??? Unspecified Anemia Past Surgical History Procedure Date ??? No history of surgery Allergies Allergen Reactions ??? No Known Drug Allergies ROS: C: NEGATIVE for fever, chills, change in weight,I: NEGATIVE for worrisome rashes, moles or lesions,E/M: NEGATIVE for ear, mouth and throat problems,R: NEGATIVE for significant cough or SOB,CV: NEGATIVEfor chest pain, palpitations or peripheral edema,GI: NEGATIVE for nausea, abdominal pain, heartburn,or change in bowel habits,: NEGATIVE for frequency, dysuria, or hematuria EXAM: LUNGS: CTA CV: NSR ABD: S/NT/ND NEURO: mild axterixis noted. Mild tremulousness. Grossly nonfocal PSYCH: affect neutral, slightly anxious but appropos. No hallucniations or delusions. NO violent ideation. A/P: 1- Hx of bleeding ulcer. After d/w pt regarding risks and benefits as well as possible side effects,drug interactions and adverse reactions, pt accepts prescription renewal for omeprazole per hs orders. 2- Hx of alcohol abuse.. Valium will be renewed as needed if used reasonably. documented in this encounter Nursing Notes 01/17/2008 1:00 PM CDT >> TC [facility]ER [facility] Jan 17, 2008 1:11 PM Patient presents with: RECHECK - Patient here for recheck and possibly refill on omeprozole Initial BP 94/60 Pulse 80 Temp (Src) 98.3 ??F (36.8 ??C) (Oral) Ht 5' 8 (1.727 m) Wt 170 lb(77.111 kg) Body mass index is 25.85 kg/(m^2). 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
--- OUTSIDE RECORDS SUMMARY | 2022-02-12 13:51 | XMS_ITS | Encounter Summary ---
:1960 Author Organization [place] Address [address] [place] [address] Care Team Providers Name Role Phone Unavailable Primary Care Provider Unavailable Encounter Details Date Type Department Care Team Description 07/15/2008 Historic Results INTERFACED REPORT Jace Forrest MD [place] [address] Social History Tobacco Use Types Packs/Day Years [...] Comments Diagnosis DRUG ABUSE SCREEN 77 STAT 07/15/2008 7:20 PM R esults for this URINE (FL, RH, SH) CDT procedure are in the results section. CBC WITH PLATELETS & STAT 07/15/2008 5:25 PM R esults for this DIFFERENTIAL CDT procedure are i n the results section. SALICYLATE LEVEL STAT 07/15/2008 5:25 PM Resul ts for this CDT procedure are i n the results section. MAGNESIUM STAT 07/15/2008 5:25 PM Results f or this CDT procedure are i n the results section. COMPREHENSIVE STAT 07/15/2008 5:25 PM Results for this METABOLIC PANEL CDT procedure ar e in the results section. ETHYL ALCOHOL LEVEL STAT 07/15/2008 5:25 PM Re sults for this CDT procedure are i n the results section. ACETAMINOPHEN LEVEL STAT 07/15/2008 5:25 PM Re sults for this CDT procedure are i n the results section. documented in this encounter Results Drug abuse screen 77 urine (FL, RH, SH) (07/15/2008 7:20 PM CDT) [facility] Method Time Signature Amphetamine Qual Negative [...] (Source) Location / / Volume Laterality 07/15/2008 7:20 PM 9 5:11 CDT PM CDT Andrae Forrest MD LAB - URINE ORDERABLES Performing Organization Address City/State/ZIP Code Phon e Number MISYS (ABNORMAL) CBC with platelets differential (07/15/2008 5:25 PM CDT) [facility] Method Time Signature MCV 96 78 - 100 MISYS fl MCH 32.1 26.5 - MISYS 33.0 pg MCHC 33.4 31.5 - MISYS 36.5 g/dL RDW 14.7 10.0 - MISYS 15.0 % WBC 7.5 4.0 - MISYS 11.0 10e9/L RBC Count 3.36 (L) 4.4 - 5.9 MISYS 10e12/L Hemoglobin 10.8 (L) 13.3 - MISYS 17.7 g/dL Hematocrit 32.3 (L) 40.0 - MISYS 53.0 % % Neutrophils 78 (H) 40 - 75 % MISYS % Lymphocytes 13 (L) 20 - 48 % MISYS % Monocytes 9 0 - 12 % MISYS % Eosinophils 0 0 - 6 % MISYS % Basophils 0 0 - 2 % MISYS Platelet Count 176 150 - 450 MISYS 10e9/L Absolute 5.9 1.6 - 8.3 MISYS Neutrophil 10e9/L Absolute 0.9 0.8 - 5.3 MISYS Lymphocytes 10e9/L Absolute 0.7 0.0 - 1.3 MISYS Monocytes 10e9/L Absolute 0.0 0.0 - 0.7 MISYS Eosinophils 10e9/L Absolute 0.0 0.0 - 0.2 MISYS Basophils 10e9/L Diff Method Automated MISYS Method Specimen Anatomical Collection Method Collection Time Receive d Time (Source) Location / / Volume Laterality 07/15/2008 5:25 PM 9 5:11 CDT PM CDT Andrea Forrest MD LAB - BLOOD ORDERABLES Performing Organization Address City/State/ZIP Code Phon e Number MISYS Salicylate level (07/15/2008 5:25 PM CDT) athologist Signature Salicylate Level <1 mg/dL MISYS Comment: Therapeutic: ?<20 Anti inflammatory: ??15-30 Reviewed, acceptable Specimen Anatomical Collection Method Collection Time Receive d Time (Source) Location / / Volume Laterality 07/15/2008 5:25 PM 9 5:11 CDT PM CDT Andrea Forrest MD LAB - BLOOD ORDERABLES Performing Organization Address City/[facility] Code Phon e Number MISYS Acetaminophen level (07/15/2008 5:25 PM CDT) Analysis Performed At Patho logist Time Signature Acetaminophen <10 mg/L MISYS Level Specimen Anatomical Collection Method Collection Time Receive d Time (Source) Location / / Volume Laterality 07/15/2008 5:25 PM 9 5:11 CDT PM CDT Andrea Forrest MD LAB - BLOOD ORDERABLES Performing Organization Address City/State/ZIP Code Phon e Number MISYS (ABNORMAL) Alcohol ethyl (07/15/2008 5:25 PM CDT) athologist Signature Ethanol g/dL 0.45 (HH) 0.01 g/dL MISYS Comment: Specimen run with a dilution Critical Value called to and read back by FELIBERTO ON ERB AT 1800 03.09, TD Specimen Anatomical Collection Method Collection Time Receive d Time (Source) Location / / Volume Laterality 07/15/2008 5:25 PM 9 5:11 CDT PM CDT Andrea Forrest MD LAB - BLOOD ORDERABLES Performing Organization Address City/State/ZIP Code Phon e Number MISYS (ABNORMAL) Comprehensive metabolic panel (07/15/2008 5:25 PM CDT) Analysis Performed At Patho logist Time Signature Sodium 139 133 - 144 MISYS mmol/L Potassium 4.3 3.4 - 5.3 MISYS mmol/L Chloride 97 94 - 109 MISYS mmol/L Carbon Dioxide 19 (L) 20 - 32 MISYS mmol/L Glucose 168 (H) 60 - 99 MISYS mg/dL Urea Nitrogen 30 (H) 5 - 24 MISYS mg/dL Creatinine 3.73 (H) 0.66 - MISYS 1.25 mg/dL Comment: New IDMS-traceable calibration beginning 08/23/07 GFR Estimate 18 (L) >60 mL/min/1.7m2 MISYS GFR Estimate If Black 21 (L) >60 mL/min/1.7m2 M ISYS Calcium 9.4 8.5 - 10.4 mg/dL MISYS AST 278 (H) 0 - 55 U/L MISYS Protein Total 9.1 (H) 6.8 - 8.8 g/dL MISYS Comment: As of 07, reference range reflects plasma specimen type. Anion Gap 24 (H) 6 - 17 mmol/L MISYS Albumin 5.0 3.9 - 5.1 g/dL MISYS ALT 43 0 - 70 U/L MISYS Alkaline Phosphatase 102 40 - 150 U/L MISYS Bilirubin Total 1.0 0.2 - 1.3 mg/dL MISYS Specimen Anatomical Collection Method Collection Time Receive d Time (Source) Location / / Volume Laterality 07/15/2008 5:25 PM 9 5:11 CDT PM CDT Andrea Forrest MD LAB - BLOOD ORDERABLES Performing Organization Address City/State/ZIP Code Phon e Number MISYS Magnesium (07/15/2008 5:25 PM CDT) P athologist Signature Magnesium 1.7 1.6 - 2.3 MISYS mg/dL Specimen Anatomical Collection Method Collection Time Receive d Time (Source) Location / / Volume Laterality 07/15/2008 5:25 PM 9 5:11 CDT PM CDT Andrea Forrest MD LAB - BLOOD ORDERABLES Performing Organization Address City/State/ZIP Code Phon e Number MISYS documented in this encounter Visit Diagnoses Not on filedocumented in this encounter Additional Health Concerns Infection Onset Date Last Indicated Resolved Time MRSA-Contact IsolationComment: 0 04/26/2021 11:03 AM SEISMOGRAPH RECORDER Infection 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
--- OUTSIDE RECORDS SUMMARY | 2022-02-12 13:51 | XMS_ITS | Encounter Summary ---
:1960 Author Organization [facility] Address [address] [place] [address] Care Team Providers Name Role Phone Unavailable Primary Care Provider Unavailable Encounter Details Date Type Department Care Team Description 09/15/2008 Emergency room [facility] Results MD Augutsin [place] [address] Social History Tobacco Use Types Packs/Day Years Used Date Smoking Tobacco: Never Alcohol Use Standard Drinks/Week Comments Yes 0 (1 standard drink = 0.6 oz pure alcoho l) socially approx 5 drinks/wk Sex Assigned at Date Recorded Not on file documented as of this encounter Progress Notes Interface, Marine Insulator - 09/27/2008 2:16 PM CDT FINAL CHIEF COMPLAINT: Painful redness and swelling of the right foot and great toe. HISTORY OF PRESENT ILLNESS: Elijah Amador is a 47-year-old male who presents with a 3-day history of nontraumatic pain, swelling and redness involving his right great toe and forefoot. He has no prior history of podagra or gout. He has had no fever, chills or other constitutional complaints. PAST MEDICAL HISTORY: Remarkable for hypertension, hyperlipidemia, reflux disease. MEDICATIONS: Lisinopril, omeprazole, and Lipitor. ALLERGIES: He has no known allergies. 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 He does have ahistory of alcohol use, and is scheduled to begin outpatient treatment this Monday, with his lastdrink last Monday. He has never experienced delirium tremens or alcohol-related seizures. FAMILY HISTORY: Negative for gout. REVIEW OF SYSTEMS: Please see history of present illness. Completed system review is negative. PHYSICAL EXAMINATION: VITAL SIGNS: Temperature is not recorded. Pulse 109, respirations 18, blood pressure 130/80, O2 satis 99% on room air. GENERAL APPEARANCE: That of a pleasant, cooperative male of stated age. HEENT: Negative. NECK: Trachea is midline. RESPIRATORY: There is no chest wall tenderness. Lungs are symmetrically clear. CARDIOVASCULAR: Heart without murmur, rub or extra sound. ABDOMEN: Nondistended. Bowel sounds are active. No tenderness, mass or megaly. NEUROLOGIC: Cranial nerve, motor, sensory and cerebellar testing is symmetric, physiologic and normal. MUSCULOSKELETAL: Spine examination is negative. Extremity examination reveals tender erythema and swelling of the rightgreat toe MTP joint extending to the forefoot with no fluctuance or crepitus palpable. SKIN: Examination is otherwise negative. LABORATORY AND DIAGNOSTIC IMAGING: White blood count is 7800 with a normal differential, hemoglobinis 10.9 grams percent. Sed rate is elevated at 34 mm per hour. Uric acid is elevated at 9.3 mg per deciliter. Comprehensive metabolic panel is normal except for minimal elevation of AST at 67. Digital imaging of the right foot revealed no foreign body or gas formation in the soft tissues. There are no osseous destructive changes either. DISCUSSION, PLAN AND DISPOSITION: I discussed with the patient that he most likely has podagra or acute gout of the right great toe and forefoot. I have recommended a burst of indomethacin 50 mg three times daily for 3 days, decreasing to 25 mg three times daily for an additional [address] Welsh should take place later this week, with the need to consider a 24-hour urine creatinine clearance and uric acid excretion to screen for his secretor status, and began therapy with allopurinol as well. DISCHARGE DIAGNOSES: 1.Acute podagra and gout to the right great toe and forefoot. 2.Hypertension. 3.Hyperlipidemia. 4.Gastroesophageal reflux disease. Electronically signed on 09/27/2008 14:15 by EDDI LORENZ MD MT: [id number] Name: ELIJAH AMADOR MRN: [id number] Account: [id number] : 1960 Visit Date: 09/15/2008 Document: [id number] cc: Julius Welsh MD documented in this encounter Plan of Treatment Not on filedocumented as of this encounter Visit Diagnoses Not on filedocumented in this encounter Additional Health Concerns Infection Onset Date Last Indicated Resolved Time MRSA-Contact IsolationComment: 0 04/26/2021 11:03 AM MANAGER ADOBE Infection 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
--- OUTSIDE RECORDS SUMMARY | 2022-02-12 13:51 | XMS_ITS | Encounter Summary ---
:1960 Author Organization [facility] Address [address] [place] [address] Care Team Providers Name Role Phone Unavailable Primary Care Provider Unavailable Encounter Details Date Type Department Care Team Description 07/15/2008 Results Only [facility] Andrea Forrest, Hospital Results [place] [address] Social History Tobacco Use Types Packs/Day Years [...] Name Priority Date/Time Associated Diagnosis Comme nts CT Routine 07/15/2008 6:07 PM Results f or this ORBIT/SELLA/POST CDT procedure a re in FOSSA/EAR W/O the results CONTRAST section. CT HEAD WO Routine 07/15/2008 6:02 PM Results for this CONTRAST CDT procedure are i n the results section. documented in this encounter Results CT SCAN SKULL (07/15/2008 6:07 PM CDT) Anatomical Region Laterality Modality Other Specimen (Source) Anatomical Collection Method Collection Time Re ceived Time Location / / Volume Laterality 07/15/2008 6:07 PM CDT Impressions 07/15/2008 6:[address] ORB/TEMP/DARLYN W/O CONTRAST HISTORY: Left periorbital trauma. ?? TECHNIQUE: Noncontrast ??Axial images wi th coronal reconstructions. COMPARISON: None. FINDINGS: No fractures identified. The o rbital contents appear intact. There is mucosal thickening in both maxi llary sinuses, possibly with air-fluid level in the right maxillary s inus. Mild deviation of the nasal septum to the right. ? IMPRESSION: 1. No fractures identified. 2. Bilateral maxillary sinus disease. Andrea Forrest MD SPECIAL IMAGING STUDIES CT SCAN HEAD/BRAIN (07/15/2008 6:02 PM CDT) Anatomical Region Laterality Modality Other Specimen (Source) Anatomical Collection Method Collection Time Re ceived Time Location / / Volume Laterality 07/15/2008 6:02 PM CDT Impressions 07/15/2008 6:[address] HEAD W/O CONTRAST* ??Jul 15, 2008 6:0 2:00 PM CLINICAL INFORMATION: Trauma. ?? CONTRAST: Noncontrast. COMPARISON: None. FINDINGS: Brain parenchyma and ventricle s are within normal limits. No acute hemorrhage, mass lesion or frac ture. No CT evidence for acute infarction. Visualized sinuses are clear. ? IMPRESSION: ??Negative. Andrea Forrest MD SPECIAL IMAGING STUDIES documented in this encounter Visit Diagnoses Not on filedocumented in this encounter Additional Health Concerns Infection Onset Date Last Indicated Resolved Time MRSA-Contact IsolationComment: 0 04/26/2021 11:03 AM FORMULA MIXER Infection 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
--- OUTSIDE RECORDS SUMMARY | 2022-02-12 13:51 | XMS_ITS | Encounter Summary ---
:1960 Author Organization [facility] Address [address] [place] [address] Care Team Providers Name Role Phone Unavailable Primary Care Provider Unavailable Encounter Details Date Type Department Care Team Description 07/16/2008 Orders Only [facility] Amna Austin DIAGNOS IS NOT YET Clinic [place] MD Fina DEFINED (Primary Dx) [address] [place], [place] CLINIC [address] [phone] [place], [place] [address] Social History Tobacco Use Types Packs/Day Years [...] Name Priority Date/Time Associated Diagnosis Comme nts ZZCL AFF BLOOD SMEAR, Routine 07/16/2008 DIAGNOSIS NOT YET R esults for this PERIPHERAL, DEFINED procedure are i n the INTERPRETATION, results sect ion. PHYSICIAN W/ WRITTEN REPORT documented in this encounter Results BLOOD SMEAR, PERIPHERAL, INTERPRETATION, PHYSICIAN W/ WRITTEN REPORT (07/16/2008) Impressions MISYS - 07/16/2008 CASE: [id number] Patient Name: ELIJAH BROWN MR#: [id number] Specimen #: [id number] Collected: 07/16/2008 Received: 07/16/2008 Reported: 07/16/2008 11:00 Ordering Phy(s): AMNA Archer TEST(S): Peripheral Smear Morphology FINAL DIAGNOSIS: Peripheral blood for morphology - Normoc hromic normocytic anemia. Borderline thrombocytopenia. ??Non-speci fic. ??See description. Electronically signed out by: Augustin Morris M.D. CLINICAL HISTORY: Anemia. PERIPHERAL BLOOD DATA: Patient Value ? (Reference Range >18y M) WBC ? 6.40 ? x 10*9/L ? (4.0-11.0 x 10*9/L) RBC ?3.08 ?x10*12/L ? (4.4-5.9 x10*12/L) Hemoglobin ?9.9 ?g/dL ?(13.3-17.7 g/dL) Hematocrit ?29.8 ?% ?(40.0-53.0 %) MCV ? 96.8 ? fL ?(78-100 fL) MCH ? 32.1 ? pg ?(26.5-33.0 pg) MCHC ?33.2 ? g /dL ?(31.5-36.5 g/dL) RDW ? 14.9 ?% ? (10.0- 15.0 %) Platelets ?149 ? x10 *9/L ? (150-450 x10*9/L) Retic ? 0.74 ?% ? (0.5-2.0 %) Differential ?? (100 cells): ? Reference Range ?(Adult) Neutrophils ? 61% ? (40-75) Lymphocytes ?24% ?(20-48) Monocytes ?13% ? (0-12) Eosinophils ? 1% ? (0-6) Basophils ?1% (0-2) PERIPHERAL BLOOD MORPHOLOGY: The platelets show no significant artifa ctual clumping. ??The red cells appear normochromic normocytic and do no t show significant anisopoikilocytosis. ??No fragmentation is present. ??The leukocytes appear normal in number. ??The neutrophi ls are mature and granulated. The lymphocytes are small and mature alexandru earing. ??No blasts are identified. ??No diagnostic dysplastic c hanges are seen. There is relative monocytosis, but absol [place] numbers are within normal limits. ??There is no evidence of microa ngiopathic hemolysis. ??No specific morphologic cause for the anemi a and borderline thrombocytopenia is seen on the peripher al smear. ??Splenic sequestration, blood loss, autoimmune ca uses, multifactorial etiologies, chronic diseases, medication or toxin re action including ethanol with marrow suppression, nutritional disorder s, early marrow disorders, etc. should be clinically considered. ??Clini rachele correlation is required. KARLEE/kalina /07-16-08 TESTING LAB LOCATION: [address] ??[id number] COLLECTION SITE: Client: ??[facility] Location: ??MS3 (R) Electronically filed by Joan Jessica ??07/17/2008 ??9:06 AM Amna Austin MD LABORATORY Performing Organization Address City/State/ZIP Code Phon e Number MISYS documented in this encounter Visit Diagnoses Diagnosis DIAGNOSIS NOT YET DEFINED - Primary documented in this encounter Additional Health Concerns Infection Onset Date Last Indicated Resolved Time MRSA-Contact IsolationComment: 0 04/26/2021 11:03 AM GUEST SERVICES AMBASSADOR Infection 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
--- OUTSIDE RECORDS SUMMARY | 2022-02-12 13:51 | XMS_ITS | Encounter Summary ---
:1960 Author Organization [facility] Address [address] [facility] [address] Care Team Providers Name Role Phone Unavailable Primary Care Provider Unavailable Encounter Details Date Type Department Care Team Description 03/13/2009 Consultation [facility] Jamaal Tyler, Hospital Results [facility] [address] [facility] [address] [place] [address] (Wo rk) Social History Tobacco Use Types Packs/Day Years Used Date Smoking Tobacco: Never Alcohol Use Standard Drinks/Week Comments Yes 0 (1 standard drink = 0.6 oz pure alcoho l) socially approx 5 drinks/wk Sex Assigned at Date Recorded Not on file documented as of this encounter Progress Notes Jamaal Tyler - 03/30/2009 8:06 AM FABRICATING 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 HISTORY OF PRESENT ILLNESS: Elijah Brown is a 48-year-old alcoholic who presents with several days of weakness and diarrhea. Today he developed progressive weakness and had a syncopal episode on theway to the bathroom, then he developed progressive shortness of breath and came to the emergency room. He noted diarrhea, decreased urine output, anorexia but no nausea or vomiting. He denies fevers, chills, sweats, chest or abdominal pain. In the emergency room, he was initially lethargic but responsive and became progressively combative and developed respiratory distress and was sedated and intubated. He developed atrial fibrillation with rapid ventricular response and hypotension and after intubation was cardioverted. In the emergency room, he was treated with normal saline, a total of 2 liters,Ativan and also thiamine, folate and multivitamins. He had no urine output. PAST MEDICAL HISTORY: Hypertension, alcohol abuse, GI bleed, past history of acute renal failure with a similar presentation to today's hypercholesterolemia and gout. MEDICATIONS: Per the chart, lisinopril, Lipitor, omeprazole. PAST SURGICAL HISTORY: Hernia repair. SOCIAL HISTORY: He drinks a bottle of liquor per day. 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 He does not smoke. This is obtained from the chart. FAMILY HISTORY/REVIEW OF SYSTEMS: The patient is unable to give a family history or review of systems. PHYSICAL EXAMINATION: GENERAL: He is sedated and on the ventilator. VITAL SIGNS: Blood pressure was 103/51, respiratory rate 38 initially, temperature is 95.6, O2 saturation 95%. Pulse 141. SKIN: He is anicteric and does not have any rash. HEENT: Head shows no trauma. The eyes show pupils round and reactive to light. Mouth shows he is intubated. NECK: Supple. LUNGS: Show clear bilateral breath sounds. There are some wheezes scattered, but I do not hear any rales. CARDIAC: Tachycardia. Normal S1, S2, no murmur, rub or gallop. ABDOMEN: Enlarged liver with soft edge 4 fingerbreadths down, no spleen, nontender and soft. GENITOURINARY: Tillman catheter in place. EXTREMITIES: Normal nails and joints, full pulses, no edema. NEUROLOGIC: He moves all 4 extremities. Cranial nerves appear symmetric. LABORATORY DATA: EKG shows sinus tachycardia at 124 with Q-waves in II, III and F. The chest x-ray shows an enlarged heart and bilateral infiltrates consistent with pulmonary congestion. The INR is 1.19, sodium 128, potassium 5.9, bicarbonate 6, BUN 124, creatinine 18, troponin I is elevated at 0.168. CK is elevated at 2596 and myoglobin elevated at 8023, white count 9.1, hemoglobin 11.6, platelet count 134. The blood gas shows pH 7.20, pCO2 22, pO2 227, bicarbonate 9 and anion gap is 37. Urinalysis shows moderate blood with only 4 red cells. IMPRESSION: 1. Acute renal failure by history and presentation. He should be prerenal. He may also have rhabdomyolysis. There is the possibility of toxic exposure. His CK, myoglobin and troponin are elevated. We will check a urine sodium and fractional excretion of sodium. We will give him IV fluids with bicarbonate and we will initiate hemodialysis. 2. Ethanol abuse. He has abnormal liver function tests and a past history of gastrointestinal bleeding. His management will be per Internal Medicine. 3. Respiratory failure is manageable will be per Internal Medicine and the Intensive Care Unit team. 4. Acidosis with elevated anion gap. We will check Tylenol, salicylate level as well as alcohol levels. This could be an alcoholic ketoacidosis or simply renal failure, we will be dialyzing him at any rate, probably for several days in a row. Electronically signed on 03/30/2009 08:06 by JAMAAL TYLER MD MT: [id number] Name: ELIJAH BROWN Account: [id number] : 1960 Consult Date: 03/13/2009 Document: [id number] ICATING MACHINE OPERATOR documented in this encounter Plan of Treatment Not on filedocumented as of this encounter Visit Diagnoses Not on filedocumented in this encounter Additional Health Concerns Infection Onset Date Last Indicated Resolved Time MRSA-Contact IsolationComment: 0 04/26/2021 11:03 AM FABRICATING 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
--- OUTSIDE RECORDS SUMMARY | 2022-02-12 13:51 | XMS_ITS | Encounter Summary ---
:1960 Author Organization [facility] Address [address] [place] [address] Care Team Providers Name Role Phone Unavailable Primary Care Provider Unavailable Encounter Details Date Type Department Care Team Description 09/08/2008 Historic Results INTERFACED REPORT Interface, Italo tai [...] Diagnosis Comme nts EKG 12 LEAD Routine 09/08/2008 6:35 PM Results f or this CDT procedure are i n the results section . documented in this encounter Results EKG 12 LEAD (09/08/2008 6:35 PM CDT) Component Value Ref Range Test Analysis Performed Pathologis t Method Time At Signature Ventricular Rate 111 BPM RADIOLOGY RESULTS Atrial Rate 111 BPM RADIOLOGY RESULTS IA Interval 158 ms RADIOLOGY RESULTS QRS Duration 102 ms RADIOLOGY RESULTS QT 344 ms RADIOLOGY RESULTS QTc 467 ms RADIOLOGY RESULTS P [place] 55 degrees RADIOLOGY RESULTS R AXIS -7 degrees RADIOLOGY RESULTS T [place] 56 degrees RADIOLOGY RESULTS Interpretation AGE AND GENDER SPECIFIC ECG ANALYSIS RADIOLOGY ECG Sinus tachycardia RESULTS Otherwise normal ECG Unconfirmed report - interpretation of this ECG is compute r generated - see medical record for final interpretation Specimen Anatomical Collection Method Collection Time Receive d Time (Source) Location / / Volume Laterality 09/08/2008 6:35 PM 9 8:28 CDT AM CDT Transcripton Interface ECG ORDERABLES Performing Organization Address City/State/ZIP Code Phon e Number RADIOLOGY RESULTS documented in this encounter Visit Diagnoses Not on filedocumented in this encounter Additional Health Concerns Infection Onset Date Last Indicated Resolved Time MRSA-Contact IsolationComment: 0 04/26/2021 11:03 AM CAPSULE 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
--- OUTSIDE RECORDS SUMMARY | 2022-02-12 13:51 | XMS_ITS | Encounter Summary ---
:1960 Author Organization [facility] Address [address] [place] [address] Care Team Providers Name Role Phone Unavailable Primary Care Provider Unavailable Encounter Details Date Type Department Care Team Description 07/18/[address] [facility] Denys Bangura MD [facility] Results [facility] [address] [facility] [address] [place], [place] [address] (Wo rk) Social History Tobacco Use Types Packs/Day Years Used Date Smoking Tobacco: Never Alcohol Use Standard Drinks/Week Comments Yes 0 (1 standard drink = 0.6 oz pure alcoho l) socially approx 5 drinks/wk Sex Assigned at Date Recorded Not on file documented as of this encounter Procedure Notes Denys Bangrua - 07/21/2008 10:59 AM CDTAssociated Order(s): EEG AWAKE,SLEEP W STIMULATN FINAL ELECTROENCEPHALOGRAM ORDERING PHYSICIAN: Dr. Ruben Willis #: [id number] [phone] [id number] LOCATION: [address] TYPE: routine CONDITION OF PATIENT: normal/tense. REASON FOR TEST: At work patient had syncopal spell without epileptiform activity. MEDICATIONS: Ativan at 1300, amoxicillin, sodium chloride, magnesium sulfate, thiamine, Protonix, multi-vitamin, folic acid. CLINICAL FINDINGS: This is an 18-channel EEG. The patient is described as awake. During the awake phase of this recording the dominant posterior rhythm is of 8 to 10 hertz distributed bilaterally and symmetrically and attenuates with eye opening. More anteriorly the usual admixture of low amplitude fast activity and slower frequencies are seen. Significant muscle artifact is obscuring the left frontal temporal regions. There is no significant change in the recording with photic stimulation, or hyperventilation. The residential monitor is recording a regular, approximately 90 beat per minute heart rate. IMPRESSION: Normal awake EEG. Electronically signed on 08/22/2008 09:44 by DENYS SAENZ MD MT: lsd Name: ELIJAH BROWN Account: [id number] : 1960 Procedure Date: 07/18/2008 Document: [id number] cc: Ruben Austin MD documented in this encounter Plan of Treatment Not on filedocumented as of this encounter Procedures Procedure Name Priority Date/Time Associated Diagnosis Comme nts HC EEG AWAKE AND 07/18/2008 4:14 PM Resul ts for this SLEEP CDT procedure are i n the results section. documented in this encounter Results EEG AWAKE,SLEEP W STIMULATN (07/18/2008 4:14 PM CDT) Transcriptions Denys Bangura - 07/21/2008 10:59 AM CDT FINAL ELECTROENCEPHALOGRAM ORDERING PHYSICIAN: Dr. Ruben MondragonEG #: [phone] LOCATION: [address] TYPE: routine CONDITION OF PATIENT: normal/tense. REASON FOR TEST: At work patient had sy ncopal spell without epileptiform activity. MEDICATIONS: Ativan at 1300, amoxicilli n, sodium chloride, magnesium sulfate, thiamine, Protonix, multi-vitamin, folic acid. CLINICAL FINDINGS: This is an 18-channe l EEG. The patient is described as awake. During the awake phase of this recordin g the dominant posterior rhythm is of 8 to 10 hertz distributed bilaterally and symmetrically and attenuates with eye opening. More anteriorly the usual admixture of low amplitude fast activity and slower frequencies are seen. Significant muscle artifact is obscuring the left frontal temporal regions. There is no significant change in the recording with photic stimulation, or hyperventilation. The residential monitor is recording a regular, appr oximately 90 beat per minute heart rate. IMPRESSION: Normal awake EEG. 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
--- OUTSIDE RECORDS SUMMARY | 2022-02-12 13:51 | XMS_ITS | Encounter Summary ---
:1960 Author Organization [facility] Address [address] [place] [address] Care Team Providers Name Role Phone Unavailable Primary Care Provider Unavailable Reason for Visit Reason Comments Arthritis seen in er 09/15/08 for gout, improving Encounter Details Date Type Department Care Team Description 09/18/2008 Office Visit [facility] Julius Welsh MD Gout (Primary Dx); Clinic [place] [address] [address] [address] [place] [address] [id number] (Wo rk) Social History Tobacco Use Types Packs/Day Years Used Date Smoking Tobacco: Never Alcohol Use Standard Drinks/Week Comments Yes 0 (1 standard drink = 0.6 oz pure alcoho l) socially approx 5 drinks/wk Sex Assigned at Date Recorded Not on file documented as of this encounter Last Filed Vital Signs Vital Sign Reading Time Taken Comments Blood Pressure 122/78 09/18/2008 8:30 AM CDT Pulse - - Temperature - - Respiratory Rate - - Oxygen Saturation - - Inhaled Oxygen Concentration - - Weight 86.2 kg (190 lb) 09/18/2008 8:30 AM CDT Height 172.7 cm (5' 8) 09/18/2008 8:30 AM CDT Body Mass Index 28.89 09/18/2008 8:30 AM CDT documented in this encounter Progress Notes Julius Welsh - 09/18/2008 8:48 AM CDT Pt tae for f/u 3 days after visit to ER at [facility] for first time dx of gout. He received tapering indomethacin and has been significantly improved. Histories Updated through 09-18-2008: Past Medical History Diagnosis Date ??? 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 F/U prn documented in this encounter Nursing Notes 09/18/2008 8:30 AM CDT >> SAMMI AGUILAR [facility] September 18, 2008 8:32 AM Patient presents with: Arthritis - seen in er 09/15/08 for gout, improving Initial BP 122/78 Ht 5' 8 (1.727 m) Wt 190 lb (86.183 kg) Body mass index is 28.89 kg/(m^2).. BP completed using cuff size large - [place]. 

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
--- OUTSIDE RECORDS SUMMARY | 2022-02-12 13:51 | XMS_ITS | Encounter Summary ---
:1960 Author Organization [employer] Address [address] [place] [place] [address] Care Team Providers Name Role Phone Unavailable Primary Care Provider Unavailable Encounter Details Date Type Department Care Team Description 07/18/2008 Historic Notes INTERFACED REPORT Interface, Transcript on, Social History Tobacco Use Types Packs/Day Years Used Date Smoking Tobacco: Never Alcohol Use Standard Drinks/Week Comments Yes 0 (1 standard drink = 0.6 oz pure alcoho l) socially approx 5 drinks/wk Sex Assigned at Date Recorded Not on file documented as of this encounter Progress Notes Interface, Player Development Manager - 07/11/2010 5:59 AM CDT Routine EEG completed on an adult in patient. [facility] has been notified to read. 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
--- OUTSIDE RECORDS SUMMARY | 2022-02-12 13:51 | XMS_ITS | Encounter Summary ---
:1960 Author Organization [place] Address [address] [place] [address] Care Team Providers Name Role Phone Unavailable Primary Care Provider Unavailable Encounter Details Date Type Department Care Team Description 03/13/2009 Admission [facility] Kaiden Weaver (Air Boatswain) [facility] MD Ranjit Results [address] [place] [address] (Wo rk) Social History Tobacco Use Types Packs/Day Years Used Date Smoking Tobacco: Never Alcohol Use Standard Drinks/Week Comments Yes 0 (1 standard drink = 0.6 oz pure alcoho l) socially approx 5 drinks/wk Sex Assigned at Date Recorded Not on file documented as of this encounter Progress Notes Kaiden Weaver - 03/14/2009 7:20 AM STRATEGIC SOURCING CONSULTANT FINAL CHIEF COMPLAINT: Generalized weakness. HISTORY OF PRESENT ILLNESS: This 48-year-old patient came to the emergency room after having generalized weakness for the last 4 days.He had syncope last night and he had shortness of breath which started today. The patient decided to come to the emergency room because of worsening of his symptoms. He had no chest pain. He has been drinking alcohol on a daily basis until 4 days ago when he started to have the generalized weakness. When he came to the emergency room the patient was already having some change in mental status and he had a decreased urine output.Most of the information was obtained from the ER physician. Laboratory examination showed anion gap metabolic acidosis and high potassium and creatinine. By the time I arrived the patient was confused and had respiratory distress. A decision was made by the emergency room physician to intubate him and he was put on mechanical ventilation. In the emergency room, patient went into atrial fibrillation and he was cardioverted. The patient was also given calcium gluconate. Nephrology consult was requested and he was evaluated by a route sales person. The patient was started on IV fluid for possible acute renal failure secondary to rhabdomyolysis. Dialysis was also planned in case there is no improvement in his renal status. PAST MEDICAL HISTORY: Hypertension. ALLERGIES: No known allergies. MEDICATIONS: Lipitor, lisinopril and stomach medications. SOCIAL HISTORY: The patient is intubated and unable to provide information. FAMILY HISTORY: The patient is on mechanical ventilation and we are unable to obtain information about his family history. REVIEW OF SYSTEMS: Unobtainable at this time. PHYSICAL EXAMINATION: GENERAL: The patient is unresponsive on mechanical ventilation at this time. The patient is not on sedation. VITAL SIGNS: Blood pressure 103/51, heart rate 115, respiratory rate 12, oxygen saturation 99% on assisted control. HEENT: [place] conjunctivae, nonicteric sclerae. Atraumatic, normocephalic. NECK: Supple. No jugular venous distention, no lymphadenopathy, no thyromegaly. CHEST: Intercostal retractions and bilateral rhonchi. CARDIOVASCULAR: Tachycardic, S1 and S2 were heard. No murmur. ABDOMEN: Bowel sounds active, soft and nondistended. No hepatosplenomegaly. EXTREMITIES: No edema or cyanosis. SKIN: No rash or ulceration. NEUROLOGIC: The patient is unresponsive, not following command and not moving his extremities. LABORATORY EXAMINATION: White cell count 9.1, hemoglobin 11.9, hematocrit 34.4, platelets 134, troponin 0.218. BNP 5390, hepatitic panel, AST 134, ALT is 40. Basic metabolic profile: Sodium 127, potassium 6.1, chloride 8.2, CO2 is 5, anion gap 39, glucose 102, BUN 123, creatinine 18.05, calcium 8.4. Tylenol level less than 0.01. Magnesium 1.4. BNP 5,480. Troponin 0.189. CK is 2,596. Myoglobin 8,032.Urinalysis: White cell count 7, red blood cells 4. Arterial blood gases: pH 7.20, pCO2 22, pO2 227, bicarbonate 9, FIO2 10, oxyhemoglobin 95%. ASSESSMENT AND PLAN: This 48-year-old patient is being admitted to Intensive Care Unit: 1. Unresponsiveness Patient intubated for airway protection 2. Severe anion gap metabolic acidosis. 3. Acute renal failure. 4. Hyperkalemia. 5. Hypomagnesemia. 6. Elevated troponin, most likely secondary to acute renal failure. 7. History of hypertension. 8. History of alcohol abuse. 9. Alcohol hepatitis. PLAN: 1. A Nephrology consult obtained. At this moment the patient is started on IV fluids with half normal saline +75 mEq per liter of sodium bicarbonate at the rate of 150 per hour.Patient to be dialysed emergently. 2. Magnesium sulfate given for hypomagnesemia. 3. Calcium gluconate given in the emergency room for hyperkalemia. 4. The patient on mechanical ventilation with assisted control mode. 5. We will monitor the arterial blood gases, BNP and troponin level. 6 patient is full code Electronically signed on 03/14/2009 07:19 by KAIDEN WEAVER MD MT: [id number] Name: ELIJAH BROWN MRN: [id number] Account: [id number] : 1960 Admitted: [id number] Document: [id number] TEGIC SOURCING CONSULTANT documented in this encounter Plan of Treatment Not on filedocumented as of this encounter Visit Diagnoses Not on filedocumented in this encounter Additional Health Concerns Infection Onset Date Last Indicated Resolved Time MRSA-Contact IsolationComment: 0 04/26/2021 11:03 AM STRATEGIC SOURCING CONSULTANT Infection 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
--- OUTSIDE RECORDS SUMMARY | 2022-02-12 13:51 | XMS_ITS | Encounter Summary ---
:1960 Author Organization [place] Address [facility] [place] [address] Care Team Providers Name Role Phone Unavailable Primary Care Provider Unavailable Encounter Details Date Type Department Care Team Description 07/16/2008 Results Only [facility] Ruben Anderson MD [address] [facility] [address] [place], [place] [address] [address] [place] [address] [phone] (Wo rk) Social History Tobacco Use Types [...] Priority Date/Time Associated Diagnosis Comme nts HC MRA NECK WO&W Routine 07/16/2008 3:44 PM Resul ts for this CONTRAST CDT procedure are i n the results section. HC MRA HEAD W/O Routine 07/16/2008 3:41 PM Result s for this CONTRAST CDT procedure are i n the results section. HC MRI BRAIN W/O Routine 07/16/2008 3:41 PM Resul ts for this CONTRAST CDT procedure are i n the results section. [facility] ECHO HEART Routine 07/16/2008 1:32 PM Results for this XTHORACIC,COMPLETE, CDT procedur e are in W/O DOPPLER the results section. documented in this encounter Results MRA, NECK; W/O CONTRAST MATL(S), FOLLOWED BY CONTRAST MATL(S) & FURTHER SEQUENCES (07/16/2008 3:44 PM CDT) Anatomical Region Laterality Modality Other Specimen (Source) Anatomical Collection Method Collection Time Re ceived Time Location / / Volume Laterality 07/16/2008 3:44 PM CDT Impressions 07/16/2008 3:55 PM CDT MRA NECK WW/O CONTRAST* ?? Jul 16, 2008 3:44:00 PM HISTORY: ?? syncope/etoh, ??eval high gr ottoniel stenosis, 30 mL Gadolinium injected. TECHNIQUE: ??Sequential axial images of the neck were obtained using 2-dimensional vrdi-he-znabri before cont rast and three dimensional gfzu-yg-veasku after the uneventful admi nistration of gadolinium contrast. COMPARISON: ??None. FINDINGS: Right Carotid: ??No significant stenosis is seen at the bifurcation relative to the distal internal carotid diameter. Left Carotid: ??No significant stenosis is seen at the bifurcation relative to the distal internal carotid diameter. Vertebrals: Antegrade flow is seen in ken th vertebral arteries. No arterial dissection is identified. IMPRESSION: 1. ??No significant stenosis is seen at either carotid bifurcation relative to the distal internal carotid diameter. 2. No arterial dissection is identified. Ruben Anderson MD [facility] IM[facility] STUDIES MR ANGIO, HEAD (07/16/2008 3:41 PM CDT) Anatomical Region Laterality Modality Other Specimen (Source) Anatomical Collection Method Collection Time Re ceived Time Location / / Volume Laterality 07/16/2008 3:41 PM CDT Impressions 07/16/2008 3:55 PM CDT MRA HEAD W/O CONTRAST* ?Jul 16 3:41:00 PM HISTORY: ?? syncope/etoh, ??eval high gr ottoniel stenosis, TECHNIQUE: ??3D lpmb-ul-[id number] MR angiog herve of the head without contrast. COMPARISON: None. FINDINGS: The visualized portions of the distal internal carotid and vertebral arteries, the basilar artery, [place] of [place], and the proximal anterior, middle and posterior cerebral arteries all appear normal. There is no evidence of aneurysm or vascular stenosis or occlusion. IMPRESSION: ??Normal MR angiogram of the head. Ruben Anderson MD [facility]ING STUDIES MRI BRAIN (07/16/2008 3:41 PM CDT) Anatomical Region Laterality Modality Other Specimen (Source) Anatomical Collection Method Collection Time Re ceived Time Location / / Volume Laterality 07/16/2008 3:41 PM CDT Impressions 07/16/2008 3:55 PM CDT MRI BRAIN WW/O CONTRAST* ?? Jul 16 9 3:41:00 PM HISTORY: ?? syncope/etoh, ??r/o post ??? lesion, 30 ml bolivar injected. TECHNIQUE: Multiplanar, multisequence MR I of the brain without and with 30 mL gadolinium IV contrast mildred walter. COMPARISON: None. FINDINGS: ??The brain parenchyma, ventri cles and subarachnoid spaces appear normal for age. ??There is no amanda dence of hemorrhage, mass, acute infarct, or anomaly. There are no gadolinium enhancing lesions. The facial structures appear normal. ??T he arteries at the base of the brain and the dural venous sinuses appea r patent. ?? IMPRESSION: Normal MRI of the brain. Ruben Anderson MD [facility]UDIES ECHO HEART XTHORACIC,COMPLETE, W/O DOPPLER (07/16/2008 1:32 PM CDT) [facility] Method Time Signature [facility] Interpretation Summary RESULTS Probably normal LV without obvious regional wall motion abno rmality but endocardial definition of the apex is suboptimal No signific ant valvular stenosis/insuff. LV size upper limits of normal to borderlin e dilated. PatientHeight: 69 in PatientWeight: 180 lbs BSA 2.0 m^2 Left Ventricle LV size upper limits of normal to borderline dilated. There is normal left ventricular wall thickness. Probably normal LV without obvious regional wall motion abno rmality but endocardial definition of the apex is suboptimal. The transmitral spectral Doppler flow pattern is abnormal fo r age. Atria The left atrium is borderline dilated. Right atrial size is normal. Mitral Valve There is mild mitral annular calcification. There is trace mitral regurgitation. There is no mitral valve stenosis. Tricuspid Valve The tricuspid valve is not well visualized, but is grossly n ormal. There is mild (1+) tricuspid regurgitation. Aortic Valve The aortic valve is trileaflet. No aortic regurgitation is present. No aortic stenosis is present. Pulmonic Valve The pulmonic valve is not well seen, but is grossly normal. Vessels Normal size aorta. Pericardium There is no pericardial effusion. Rhythm The rhythm was normal sinus. Procedure Complete Portable Echo Adult. MMode 2D Measurements & Calculations IVSd: 1.1 cm IVSs: 1.6 cm LVIDd: 6.2 cm LVIDs: 4.1 cm LVPWd: 1.0 cm LVPWs: 1.5 cm FS: 33 % LV mass(C)d: 276 grams Ao root diam: 3.2 cm LA dimension: 4.5 cm asc Aorta: 3.5 cm LA/Ao: 1.4 Doppler Measurements & Calculations MV E point: 75 cm/sec MV A point: 84 cm/sec MV E/A: 0.90 MV dec time: 0.18 sec TR Max P mmHg Interpreting Physician: ??Jason Monge MD electronically sig jad on 07-16-2008 15:04:58 Anatomical Region Laterality Modality Other Specimen (Source) Anatomical Collection Method Collection Time Re ceived Time Location / / Volume Laterality 07/16/2008 1:32 PM CDT Ruben Anderson MD SPECIAL IMAGING STUDIES documented in this encounter Visit Diagnoses Not on filedocumented in this encounter Additional Health Concerns Infection Onset Date Last Indicated Resolved Time MRSA-Contact IsolationComment: 0 04/26/2021 11:03 

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
--- OUTSIDE RECORDS SUMMARY | 2022-02-12 13:52 | XMS_ITS | Encounter Summary ---
:1960 Author Organization [facility] Address [address] [place] [address] Care Team Providers Name Role Phone Unavailable Primary Care Provider Unavailable Reason for Visit Reason Onset Date Comments Medication Question 11/09/2007 omeprazole dosing Encounter Details Date Type Department Care Team Description 11/09/2007 Telephone [facility] Julius Welsh MD Medication Question Clinic [address] (omeprazole dosing) [address] [place] [phone] (Wo rk) Social History Tobacco Use Types Packs/Day Years Used Date Smoking Tobacco: Never Alcohol Use Standard Drinks/Week Comments Yes 0 (1 standard drink = 0.6 oz pure alcoho l) socially approx 5 drinks/wk Sex Assigned at Date Recorded Not on file documented as of this encounter Miscellaneous Notes Telephone Encounter - Meghan Ballard - 11/12/2007 9:35 AM CDT LMOM to inform pt. Meghan Ballard RN Telephone Encounter - Julius Welsh - 11/12/2007 9:[address] martin wrote qday on the refill Telephone Encounter - Meghan Ballard - 11/09/2007 4:19 PM CDT Fax from pharmacy wondering if you want Omeprazole 40 mg QD or BID? 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
--- OUTSIDE RECORDS SUMMARY | 2022-02-12 13:52 | XMS_ITS | Encounter Summary ---
:1960 Author Organization [address] [address] Care Team Providers Name Role Phone Unavailable Primary Care Provider Unavailable Reason for Visit Reason Onset Date Comments Erroneous encounter-disregard 01/14/2008 Encounter Details Date Type Department Care Team Description 01/14/2008 [facility] Chase Dodd MD Erroneous Clinic [place] XXX RESIGNED XXX encounter-disregard [address] [place], [place] [id number] [place], [place] [phone] (Wo rk) Social History Tobacco Use Types [...] Time MRSA-Contact IsolationComment: 0 04/26/2021 11:03 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
--- OUTSIDE RECORDS SUMMARY | 2022-02-12 13:52 | XMS_ITS | Encounter Summary ---
:1960 Author Organization [place] Address [facility] [place] [address] Care Team Providers Name Role Phone Unavailable Primary Care Provider Unavailable Encounter Details Date Type Department Care Team Description 09/28/2006 Historic Results [facility] Ruben Anderson MD [address] [facility] XXX RETIRED XXX [address] [place], [place] [address] [place] [address] [phone] (Wo rk) Social History Tobacco Use Types [...] Procedure Name Priority Date/Time Associated Comments Diagnosis HEAVY METALS URINE Routine 09/28/2006 7:00 PM Res ults for this CDT procedure are i n the results section. HEMOGRAM DIFFERENTIAL Routine 09/28/2006 7:03 AM Results for this AND PLATELET CDT procedure are i n the results section. VITAMIN B1 PLASMA Routine 09/28/2006 7:03 AM Resu lts for this CDT procedure are i n the results section. MAGNESIUM Routine 09/28/2006 7:03 AM Results f or this CDT procedure are i n the results section. LYME IGG AND IGM Routine 09/28/2006 7:03 AM Resul ts for this SCREEN CDT procedure are i n the results section. LIPID PROFILE Routine 09/28/2006 7:03 AM Results for this CDT procedure are i n the results section. LIPASE Routine 09/28/2006 7:03 AM Results f or this CDT procedure are i n the results section. COMPREHENSIVE Routine 09/28/2006 7:03 AM Results for this METABOLIC PANEL CDT procedure ar e in the results section. documented in this encounter Results Heavy metals urine (09/28/2006 7:00 PM CDT) athologist Signature Heavy Metals 24 MISYS Duration Urine Volume 3770 MISYS Arsenic 24 8.1 MISYS Hr/Random Urine Comment: Reference range: 0.0 to 35.0 Unit: ug/L (Note) TEST INFORMATION: Arsenic, Urine This test measures total arsenic, wherea s the reference interval relates to inorganic and methyl ated arsenic species. Dietary and non-occupational ex posure to relatively non-toxic organic arsenic spe cies may contribute to an elevated total arsenic result. For example, urine arsenic levels four hours following seafood ingestion may reach 1700 ug/L. T o differentiate between organic and inorganic forms, an arsenic speciation test is recommended and can be performed with the existing specimen at the client's request, if the request occurs within 2 weeks of original specimen rece ipt and that adequate specimen volume is available. Arsenic 24 Hr Urine 30.5 MISYS Comment: Reference range: 0.0 to 50.0 Unit: ug/d Arsenic Random Urine 26.1 MISYS Comment: Unit: ug/gCR Heavy Metals Lead 24 Hr Urine 0 MISYS Comment: Reference range: 0 to 31 Unit: ug/d Heavy Metals Lead Random Urine 0.0 MISYS Comment: Unit: ug/gCR Mercury 24 Hr Urine 0 MISYS Comment: Reference range: 0 to 15 Unit: ug/d Mercury Random Urine 0.0 MISYS Comment: Reference range: < ?? 35.0 Unit: ug/gCR Drug Screen Creatinine Ur 31 MISY S Comment: Unit: mg/dL Heavy Metals Creatinine Quant Urine 1169 MISYS Comment: Reference range: 1000 to 2500 Unit: mg/d (Note) Performed by [facility], [address] [place] [id number] www.[email or web address], ??Martin Frazier MD - Lab. Director Lead Urine 0 MISYS Comment: Reference range: 0 to 23 Unit: ug/L Mercury 24 Hr/Random Urine 0 MIS YS Comment: Reference range: 0 to 10 Unit: ug/L (Note) TEST INFORMATION: ??Mercury, Urine - ug/ L Urine mercury concentration may correlat e better with inorganic mercury exposure than blood co ncentrations since organic mercury is eliminated primarily in the feces. Urine mercury levels may also be used to monitor chelation therapy. Specimen Anatomical Collection Method Collection Time Receive d Time (Source) Location / / Volume Laterality 09/28/2006 7:00 PM 7 6:05 CDT PM CDT Ruben Anderson MD LAB - URINE ORDERABLES Performing Organization Address City/State/ZIP Code Phon e Number MISYS (ABNORMAL) Lipase (09/28/2006 7:03 AM CDT) P athologist Signature Lipase 614 (H) 20 - 250 MISYS U/L Specimen Anatomical Collection Method Collection Time Receive d Time (Source) Location / / Volume Laterality 09/28/2006 7:03 AM 7 8:24 CDT AM CDT Liudmila Austin MD LAB - BLOOD ORDERABLES Performing Organization Address City/State/ZIP Code Phon e Number MISYS (ABNORMAL) Comprehensive metabolic panel (09/28/2006 7:03 AM CDT) Analysis Performed At Patho logist Time Signature Sodium 139 133 - 144 MISYS mmol/L Potassium 3.6 3.4 - 5.3 MISYS mmol/L Chloride 106 94 - 109 MISYS mmol/L Carbon Dioxide 22 20 - 32 MISYS mmol/L Glucose 86 60 - 99 MISYS mg/dL Urea Nitrogen 13 5 - 24 MISYS mg/dL Creatinine 1.11 0.80 - MISYS 1.50 mg/dL GFR Estimate 77 >60 MISYS mL/min/1.7 m2 GFR Estimate If >90 >60 MISYS Black mL/min/1.7 m2 Calcium 8.2 (L) 8.5 - 10.4 MISYS mg/dL AST 90 (H) 0 - 55 U/L MISYS Protein Total 7.1 6.0 - 8.2 MISYS g/dL Anion Gap 11 6 - 17 MISYS mmol/L Albumin 3.5 3.3 - 4.6 MISYS g/dL ALT 41 0 - 70 U/L MISYS Alkaline 70 40 - 150 MISYS Phosphatase U/L Bilirubin Total 1.5 (H) 0.2 - 1.3 MISYS mg/dL Specimen (Source) Anatomical Collection Method Collection Time Re ceived Time Location / / Volume Laterality 09/28/2006 7:03 AM 7 CDT Liudmila Austin MD LAB - BLOOD ORDERABLES Performing Organization Address City/State/ZIP Code Phon e Number MISYS (ABNORMAL) Lipid panel (09/28/2006 7:03 AM CDT) P athologist Signature Cholesterol 229 (H) 0 - 200 MISYS mg/dL Comment: LDL Cholesterol is the primary guide to therapy: LDL-cholesterol goal in high risk patients is <100 mg/dL and in very high risk patients is <70 mg/dL. The NCEP recommends further evaluation of: patients with cholesterol <200 mg/dL if additionalrisk factors are present, cholesterol >240 mg/dL, triglycerides >150 mg/dL, or HDL <40 mg/dL. Triglycerides 75 0 - 150 mg/dL MISYS HDL Cholesterol 71 40 - 110 mg/dL MISYS LDL Cholesterol Calculated 143 (H) 0 - 129 mg/dL MISYS VLDL-Cholesterol 15 0 - 30 mg/dL MISYS Cholesterol/HDL Ratio 3.2 0.0 - 5.0 MISYS Specimen (Source) Anatomical Collection Method Collection Time Re ceived Time Location / / Volume Laterality 09/28/2006 7:03 AM 7 CDT Liudmila Austin MD LAB - BLOOD ORDERABLES Performing Organization Address [facility] Phon e Number MISYS (ABNORMAL) Hemogram differential and platelet (09/28/2006 7:03 AM CDT) [facility] gist Method Time Signature MCV 99 78 - 100 MISYS fl MCH 32.8 26.5 - MISYS 33.0 pg MCHC 33.1 31.5 - MISYS 36.5 g/dL RDW 15.3 (H) 10.0 - MISYS 15.0 % WBC 5.1 4.0 - MISYS 11.0 10e9/L RBC Count 3.69 (L) 4.4 - 5.9 MISYS 10e12/L Hemoglobin 12.1 (L) 13.3 - MISYS 17.7 g/dL Hematocrit 36.6 (L) 40.0 - MISYS 53.0 % % Neutrophils 61 40 - 75 % MISYS % Lymphocytes 19 (L) 20 - 48 % MISYS % Monocytes 11 0 - 12 % MISYS % Eosinophils 8 (H) 0 - 6 % MISYS % Basophils 1 0 - 2 % MISYS Platelet Count 112 (L) 150 - 450 MISYS 10e9/L Absolute 3.1 1.6 - 8.3 MISYS Neutrophil 10e9/L Absolute 1.0 0.8 - 5.3 MISYS Lymphocytes 10e9/L Absolute 0.5 0.0 - 1.3 MISYS Monocytes 10e9/L Absolute 0.4 0.0 - 0.7 MISYS Eosinophils 10e9/L Absolute 0.0 0.0 - 0.2 MISYS Basophils 10e9/L Diff Method Automated MISYS Method Specimen (Source) Anatomical Collection Method Collection Time Re ceived Time Location / / Volume Laterality 09/28/2006 7:03 AM 7 CDT Liudmila Austin MD LAB - BLOOD ORDERABLES Performing Organization Address City/[facility]/ZIP Code Phon e Number MISYS (ABNORMAL) Vitamin B1 plasma (09/28/2006 7:03 AM CDT) athologist Signature Vitamin B1 4.2 (H) MISYS Comment: Reference range: 0.2 to 2.0 Unit: ug/dL (Note) Performed by [facility], [address] [place] [id number] [email or web address], ??Martin Frazier MD - Lab. Director Specimen Anatomical Collection Method Collection Time Receive d Time (Source) Location / / Volume Laterality 09/28/2006 7:03 AM 7 6:01 CDT PM CDT Ruben Anderson MD LAB - BLOOD ORDERABLES Performing Organization Address City/State/ZIP Code Phon e Number MISYS Magnesium (09/28/2006 7:03 AM CDT) athologist Signature Magnesium 2.0 1.6 - 2.3 MISYS mg/dL Specimen Anatomical Collection Method Collection Time Receive d Time (Source) Location / / Volume Laterality 09/28/2006 7:03 AM 7 7:56 CDT PM CDT Na Mackey MD LAB - BLOOD ORDERABLES Performing Organization Address City/State/ZIP Code Phon e Number MISYS Lyme IgG and IgM screen (09/28/2006 7:03 AM CDT) [facility] Method Time Signature Specimen Serum MISYS Description Lyme Screen IgG Test value: MISYS and IgM <0.75....In terpretatio n: Negative... .If you highly suspect Lyme Comment: disease, consider submitting a repeat specimen in 4 to 6 weeks. 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
--- OUTSIDE RECORDS SUMMARY | 2022-02-12 13:52 | XMS_ITS | Encounter Summary ---
:1960 Author Organization [place] Address [address] [place] [address] Care Team Providers Name Role Phone Unavailable Primary Care Provider Unavailable Encounter Details Date Type Department Care Team Description 09/27/2006 Historic Notes INTERFACED REPORT Interface, Transcript MD valarie Social History Tobacco Use Types Packs/Day Years Used Date Smoking Tobacco: Never Alcohol Use Standard Drinks/Week Comments Yes 0 (1 standard drink = 0.6 oz pure alcoho l) socially approx 5 drinks/wk Sex Assigned at Date Recorded Not on file documented as of this encounter Progress Notes Interface, Spot Worker - 07/12/2010 2:46 PM CDT General Information General Information - <R> How to be addressed Kayden - <R> Grounds Manager Needed No - Source of reliable Patient information - Arrived from Home Patient Contact Information - <R> 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 - Can patient name a Yes Surrogate Decision Maker? (Not legally binding) - Surrogate Name: Selina Wells - Surrogate Number: - <R> Would you like to No receive information about Advanced Directives? Health and Illness History Health and Illness History - <R> Reason for Dehydrated, nausea and vomiting and admission/chief complaint numbness in legs as stated by patient - Expected length of Day(s), 1-2 hospitalization Allergies Environment ?? Other Environment Allergy (See Description);Unknown, Active General Medication Information General Medication Information - Medications brought to None hospital - Medication patch No medication patch(es) used Substance Use Tobacco Use - <R> Tobacco Use None Caffeine Use - <R> Caffeine Use No Alcohol Use - <R> History of Alcohol Use Yes - Alcohol Type Beer Liquor - Alcohol Frequency Four or more times a week - Alcohol Amount 2-[address]/Recreational Drug Use - <R> History of No Street/Recreational Drug Use Transfusion History Transfusion History - Blood No Avoidance/Restrictions - Previous blood transfusion No Review of Systems Cardiac - Cardiac Problems Yes - Cardiac Conditions/Symptoms Hypertension Pulmonary - Pulmonary Problems No Peripheral Vascular - Peripheral Vascular No Problems Neuro-Muscular - Neuro Muscular Problems No ENT - ENT Problems No GI - GI Problems No Bowel Pattern - Date of last bowel movement Date of last BM, 09/27/06 - Usual bowel pattern recently diarrhea - Problems No Skin - Skin Problems No Immune - <R> Immune Problems No - <R> Immunizations Current Immunizations current Endocrine - <R> Endocrine Problems No Mental Health - <R> Mental Health Problems No Cognitive Perceptual General Pain Information - Preferred Pain Scale Numerical 0-10 - Acceptable Comfort Level 0 is acceptable comfort level rating Chronic Pain - History of Chronic Pain No Sensory Deficits/Cognition - <R> Alterations in No Sensation - <R> Vision Problems No - <R> Hearing Problems No - <R> Use of Sensory No Assistive Devices - <R> Reading Problems No - <R> Communication Problems No - <R> Changes in thought No Process/Behavior Activity-Exercise/Self Care Functional Screen - <R> Ambulation 0 - Independent with ambulation - <R> Transferring 0 - Independent with transfers - <R> Toileting 0- Independent with toileting - <R> Bathing 0- Independent with bathing - <R> Dressing 0- Independent with dressing - <R> Eating 0- Independent with eating - <R> Swallowing none - <R> Fall history within No history of falls last six months - <R> Which of the above None functional risks had a recent onset or change? - Comment Patient has generalized shakiness and numbness in bilateral legs. Nutrition/Metabolic Diet Information - Diet Regular - Regular Meal Pattern Breakfast; Lunch; Dinner - Use of meal supplements No - Describe appetite Good, Poor x 1 week - Food No identified problem restrictions/intolerances - Who prepares meals Patient prepares meals; Significant other prepares meals - Who does grocery shopping Patient does grocery shopping; Significant other does grocery shopping Nutrition Risk Screen - <R> Nutrition Risk Screen Persistent vomiting/nausea/diarrhea greater than 5 days prior to admission Sleep/Relaxation Sleep Pattern - <R> Problems Sleeping No Role Relationships Abuse Risk Screen - <R> QUESTION TO PATIENT: No Are you now or have you ever been in a relationship where you have been abused physically, emotionally or sexually? - <R> NURSE OBSERVATION: Is No there reasonable cause to believe the patient has been abused, assaulted, is self abusive, neglected or exploited? Coping-Stress Tolerance Coping-Stress - <R> Have you had a recent No major change/significant loss/stressor in your life Values/Beliefs/Spiritual Care Values/Beliefs/Spiritual Care - F: Enedina: Does Episcopalian culture/spirituality/ adventism play an important part in your life? - <R> Would you like pastoral Does not wish to have anyone contacted care/clergy/health and wellness advisor notified? Mutuality/Individual Preferences Mutuality/Preferences - <R> What information would none help us give you more personalized care? - <R> What if any limitations None on visitors, TV or phone calls would you like Sadia Beltrán (RD, LD) Authored: General Information, Nutrition/Metabolic Sis Hernandez (RN) Authored: General Information, Advance Directive, Health and Illness History, Allergies, General Medication Information, Substance Use, Transfusion History, Review of Systems, Cognitive Perceptual, Activity-Exercise/Self Care, Nutrition/Metabolic, Sleep/Relaxation, Role Relationships, Coping-Stress Kristina erance, Values/Beliefs/Spiritual Care, Mutuality/Individual Preferences Interface, Spot Worker - 07/12/2010 2:45 PM CDT Nutrition Assessment Nutrition Assessment - Reason for assessment Admission screen Anthropometrics - Height: 5'8 1/2 - Admission weight: 77.7 kg - BMI: 26 - IBW ([place] body weight): 71.4 kg - % IBW ([place] body weight): 109% - Dosing weight: 77.7 kg - Comments:: Wt has been stable. Nutrition Prescription Nutrition Prescription - Nutrition Prescription: Regular diet with fair intake noted. - Comments:: The pt stated he ate smaller amounts of food for lunch to make sure he is tolerating it. Nutrition History Nutrition History - Nutrition history: Usually on a regular diet with good intake until a week ago. Labs/Medications Labs/Medications - Labs: Reviewed - Lab comments: Albumin 4.6 (WNL) Lipase 663 - Medications: Reviewed Physical Findings Physical Findings - Physical findings Nausea/vomiting, Diarrhea, Other <free text>, Decreased intake - Comments: Improving Estimated Needs Estimated Needs - Energy needs: 4658-7223 kcal (25-30 kcal/kg) - Protein needs: 78-94 gms protein (1-1.2 gm/kg) - Fluid needs: 0089-8675 mL fluid (30-35 mL/kg) Nutrition Diagnosis Nutrition Diagnosis - Nutrition diagnosis: Altered GI fxn R/t gastritis symptions AEB N/V/D and decreased intake. Interventions Interventions - Interventions: Enc po intake - Goals: PO to be greater than 75% of meals. 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
--- OUTSIDE RECORDS SUMMARY | 2022-02-12 13:52 | XMS_ITS | Encounter Summary ---
:1960 Author Organization [facility] Address [address] [place] [address] Care Team Providers Name Role Phone Unavailable Primary Care Provider Unavailable Reason for Visit Reason Onset Date Comments Refill Request 12/06/2006 Lisinopril Encounter Details Date Type Department Care Team Description 12/06/2006 Refill [facility] Julius Welsh MD Refill Request Clinic [address] (Lisinopril) [address] [place] [address] [phone] Social History Tobacco Use Types Packs/Day Years Used Date Smoking Tobacco: Never Alcohol Use Standard Drinks/Week Comments Yes 0 (1 standard drink = 0.6 oz pure alcoho l) socially approx 5 drinks/wk Sex Assigned at Date Recorded Not on file documented as of this encounter Miscellaneous Notes Telephone Encounter - Meghan Ballard - 12/06/2006 3:58 PM CDT Last office visit: [id number] Reason for visit: hemorrhoid Date last filled: 455450 Last 2 BP Readings: Date: BP: 08/10/2006 110/76 08/02/2006 84/48 CR 3.20 07/31/2006 POTASSIUM 3.8 07/31/2006 Medication APPROVED per standing deyanira. 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
--- OUTSIDE RECORDS SUMMARY | 2022-02-12 13:52 | XMS_ITS | Encounter Summary ---
:1960 Author Organization [facility] Address [address] [place] [address] Care Team Providers Name Role Phone Unavailable Primary Care Provider Unavailable Reason for Visit Reason Onset Date Comments Refill Request 11/08/2007 Omeprazole Encounter Details Date Type Department Care Team Description 11/08/2007 Refill [facility] Julius Welsh MD Refill Request Clinic [place] [address] (Omeprazole) [address] [place], [place] [address] [phone] Social History Tobacco Use Types Packs/Day Years Used Date Smoking Tobacco: Never Alcohol Use Standard Drinks/Week Comments Yes 0 (1 standard drink = 0.6 oz pure alcoho l) socially approx 5 drinks/wk Sex Assigned at Date Recorded Not on file documented as of this encounter Miscellaneous Notes Telephone Encounter - Belia Talbert - 11/08/2007 2:50 PM CDT Date of Last OV: 08/10/06 Reason for visit: Hospital follow up for GI bleed Provider seen: Dr. 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
--- OUTSIDE RECORDS SUMMARY | 2022-02-12 13:52 | XMS_ITS | Encounter Summary ---
:1960 Author Organization [place] Address [facility] [place] [address] Care Team Providers Name Role Phone No Ref-Primary, Physician Primary Care Provider [phone] Juan Farias MD Unavailable Edilia Trejo APRN DIETARY SERVICES MANAGER Unavailable Glendy vailable Juan Farias MD Unavailable Denise Connell-C Unavailable [phone] Edilia Trejo APRN DIETARY SERVICES MANAGER Unavailable Glendy vailable Denise Connell-C Unavailable [phone] uJan Farias MD Primary Care Provider Dana Barry PA-C Unavailable [phone] Encounter Details Date Type Department Care Team Description 05/11/2007 Office Visit-[facility] Heart Juan Farias MD [address] [place] [address] [place] [address] [phone] Social History Tobacco Use Types Packs/Day Years Used Date Smoking Tobacco: Never Alcohol Use Standard Drinks/Week Comments Yes 0 (1 standard drink = 0.6 oz pure alcoho l) socially approx 5 drinks/wk Sex Assigned at Date Recorded Not on file documented as of this encounter Progress Notes Juan Farias MD - 05/15/2007 12:01 PM CST Progress Note Created by: Juan Farias M.D. DATE: 05/11/2007 SARAH BETH BROWN DATE OF : 1960 AGE: [age] years old Referring Physician: JEROME MORENO Referring Clinic: [facility] CURRENT DIAGNOSES 1. - Hypercholesterolemia, 272.0 2. - Hypertension, benign, 401.1 ALLERGIES NKA MEDICATIONS (prior to changes made today) 1. Omeprazole 20mg, 2 p.o. q.d. 2. Vitamin E 200 iu, 1 p.o. q.d. 3. Calcium 600 mg, 1 p.o. q.d. 4. Lisinopril 20 Mg, 1 p.o. q.d. 5. Lipitor 40 Mg, 1 p.o. q.d. 6. Vitamin and Mineral Supplement Multiple Vitamins with Minerals, 1 p.o. q.d. CHIEF COMPLAINTS Followup of - Hypertension, benign HISTORY OF PRESENT ILLNESS I had the opportunity to see Mr. Sarah Beth Brown in cardiology clinic today for reevaluation of hypertension and dyslipidemia. I have been following Mr. Brown since 2001 for these complaints and have had him on a stable regimen of lisinopril and Lipitor. Last year he went through a period of alcohol excess and end up with some personal and health related problems as a result. Fortunately, he has now gotten his life back on track and is no longer using alcohol. He is back on his usual medications as well. He has no concerning cardiac symptoms at this time such as shortness of breath, chest pain, light-headedness, palpitations or syncope. On examination, his blood pressure is 116/74mmHg, heart rate 78, and weight 182 pounds. His lungs are clear. Heart rhythm is regular. There are no cardiac murmurs, no lower extremity edema and no carotid bruits. His laboratory studies are excellent with a total cholesterol of 162, triglycerides 134, HDL 43 and LDL 92. 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 EYES wears eye glasses/contact lenses EARS, NOSE, THROAT, MOUTH seasonal sinusitis, sinusitis RESPIRATORY denies dyspnea, snoring, cough, wheezing or hemoptysis. CARDIOVASCULAR negative for palpitations, chest pain, orthopnea, PND, peripheral edema, syncope or claudication. ABDOMINAL history of GERD GENITOURINARY-MALE denies dysuria, denies impotence MUSCULOSKELETAL denies any history of arthritic symptoms or back problems. NEUROLOGICAL denies any history of recurrent headaches, strokes, TIA, or seizure disorder. PSYCHIATRIC anxiety, sleep disturbance ENDOCRINE hyperlipidemia, weight gain HEMATOLOGICAL/IMMUNOLOGIC hayfever PHYSICAL EXAMINATION VITAL SIGNS: Blood Pressure: 116/74 Sitting, Right arm, regular cuff Pulse- 78.00/min. Weight- 182.00 lbs. Height- 69.00 Temperature- .00 CONSTITUTIONAL cooperative, [...] equal in all extremities, no bruits auscultated. <FONT COLOR=#[id number]><FONT POINT=10>EXTREMITIES & BACK no deformities, clubbing, cyanosis, erythema or edema observed. There are no spinal abnormalities noted. Normal muscle strength and tone. NEUROLOGICAL no gross motor deficits noted, affect appropriate, oriented to time, person and place. MEDICATIONS UPDATED/STARTED TODAY: Omeprazole 20mg, 2 p.o. q.d., DIRECTED Vitamin E 200 iu, 1 p.o. q.d., DIRECTED Lisinopril 20 Mg, 1 p.o. q.d., #30 Lipitor 40 Mg, 1 p.o. q.d., #30 MEDICATIONS REFILLED/STOPPED TODAY: Lisinopril 20 Mg 1 p.o. q.d. #30 Refill and Lipitor 40 Mg 1 p.o. q.d. #30 Refill <FONT COLOR=#[id number]><FONT POINT=10> IMPRESSIONS: I had the opportunity to see Mr. Sarah Beth Brown in cardiology clinic today for evaluation and treatment of hypertension and dyslipidemia. Both of these issues are under excellent control onhis current medical therapy and I will continue those medications and give him refills of both his lisinopril and Lipitor and plan on seeing him back again in one years time with a repeat fasting lipidpanel prior to my visit. <FONT COLOR=#[id number]><FONT POINT=10> TODAYS ORDERS 1. Lipid profile/ALT 1 day 2. Return Visit 1 year 3. Lipid profile/ALT 1 year Juan Farias M.D. 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 Infection erroneous MRSA 05/13/2021 05/13/2021 Rule Out C-difficile 12/06/2021 12/06/2021 12/07/2021 8:46 AM CDT documented as of this encounter Care Teams Nuclear Technician Relationship Specialty Start Date End Date No Ref-Primary, PCP - General 07/03/14 12/03/21 Physician Juan Farias MD PCP - General Cardiovascular Disease 12/04/21 [address] [place] [address] Juan Farias MD Assigned Heart and 02/14/20 10/03/20 [address] Vascular Provider [address] [place] [id number] Maya, Assigned Heart and 10/04/20 Edilia Chapman APRN Vascular Provider DIETARY SERVICES MANAGER NO INFO AVAILABLE 02/10/2022 Juan Farias MD Assigned Heart and 04/04/21 07/31/21 [address] Vascular Provider [address] [place] [id number] Denise Connell Physician Insolvency Practitioner Cardiovascular Disease 08/12/21 MARIETTA Watson [address] [place] [id number] Maya Assigned Heart and 08/01/21 2 Edilia Chapman APRN Vascular Provider DIETARY SERVICES MANAGER NO INFO AVAILABLE 02/10/2022 Denise Connell Assigned Heart and 08/22/21 01/14/22 MARIETTA Watson Vascular Provider [address] [place] [id number] Dana Barry Assigned Heart and 01/15/22 MARIETTA Teague Vascular Provider [address] [place] [id number] documented as of this encounter
--- OUTSIDE RECORDS SUMMARY | 2022-02-12 13:52 | XMS_ITS | Encounter Summary ---
:1960 Author Organization [facility] Address [address] [place] [address] Care Team Providers Name Role Phone Unavailable Primary Care Provider Unavailable Reason for Referral Specialty Diagnoses / Procedures Referred By Contact Refer red To Contact Tristan Egan ph, [place] [address] [place] [phone] Referral ID Status Reason Start Date Expiration Date Visits Requ ested Visits Authorized Encounter Details Date Type Department Care Team Description 11/03/2006 Orders Only [facility] Tristan Egan SIS NOT YET Clinic AustinMau Holden MD DEFINED (Primary Dx) [address] [facility] [address] [place] [phone] Social History Tobacco Use Types Packs/Day Years [...] Name Priority Date/Time Associated Diagnosis Comme nts ZZ CONSULT NEUROLOGY Routine 11/03/2006 DIAGNOSIS NOT YET DEFINED documented in this encounter Results CONSULT NEUROLOGY (11/03/2006) Narrative This result has an attachment that is no t available. 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
--- OUTSIDE RECORDS SUMMARY | 2022-02-12 13:52 | XMS_ITS | Encounter Summary ---
:1960 Author Organization [facility] Address [address] [place] [address] Care Team Providers Name Role Phone Unavailable Primary Care Provider Unavailable Encounter Details Date Type Department Care Team Description 09/28/2006 Results Only [facility] Ruben Anderson MD Hospital Results XXX RETIRED XXX [address] [place], [place] [address] (Wo rk) Social History [...] Name Priority Date/Time Associated Diagnosis Comme nts H MRI BRAIN WO&W Routine 09/28/2006 11:39 AM Resu lts for this CONTRAST CDT procedure are i n the results section. documented in this encounter Results MRI BRAIN COMBO (09/28/2006 11:39 AM CDT) Anatomical Region Laterality Modality Other Specimen (Source) Anatomical Collection Method Collection Time Re ceived Time Location / / Volume Laterality 09/28/2006 11:39 AM CDT Impressions 09/28/2006 11:46 AM CDT EXAM: ??MRI BRAIN WW/O CONTRAST* ?? Sep 28, 2006 11:39:00 AM HISTORY: ?Deyhradtion, ??ataxia eval cerebral lesion,numbness lower extremities. 20cc Gadolinium injected. TECHNIQUE: ?Multiplanar, multisequen ce MRI of the brain without and with Gadolinium IV contrast material. ?? COMPARISON: None FINDINGS: ?? Diffusion-weighted images are unremarkab le, no acute infarcts are seen. Sagittal T1-weighted images are no rmal except for mild diffuse atrophy. No abnormal white matter high d ensities are seen. No cerebellar lesions are identified. No he morrhagic lesions are seen. No abnormal parenchymal, meningeal, or vasc ular enhancement is identified. The blood vessels at the bas e of the brain appear normal. There is mild mucosal thickening in both maxillary sinuses. IMPRESSION: 1. ??No acute pathology, no bleed, mass or acute infact is seen. ??The posterior fossa appears normal. 2. Mild enlargement of the lateral ventr icles and cortical sulci 3. Mild mucosal thickening in the maxill isaiah sinuses Ruben Anderson MD [employer]AG[employer] STUDIES documented in this encounter Visit Diagnoses Not on filedocumented in this encounter Additional Health Concerns Infection Onset Date Last Indicated Resolved Time MRSA-Contact IsolationComment: 0 04/26/2021 11:03 AM TRIAL MANAGER Infection 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
--- OUTSIDE RECORDS SUMMARY | 2022-02-12 13:52 | XMS_ITS | Encounter Summary ---
:1960 Author Organization [facility] Address [address] [place] [address] Care Team Providers Name Role Phone Unavailable Primary Care Provider Unavailable Reason for Visit Reason Onset Date Comments Refill Request 03/13/2007 lisinopril Encounter Details Date Type Department Care Team Description 03/13/2007 Refill [facility] Tristan Egan Refill Request Clinic [place] MD Navin (lisinopril) [id number] [place] [phone] [id number] (Wo rk) Social History Tobacco Use Types Packs/Day Years Used Date Smoking Tobacco: Never Alcohol Use Standard Drinks/Week Comments Yes 0 (1 standard drink = 0.6 oz pure alcoho l) socially approx 5 drinks/wk Sex Assigned at Date Recorded Not on file documented as of this encounter Miscellaneous Notes Telephone Encounter - Korina Ko - 03/13/2007 8:01 AM CST Last OV:08-10-06 Reason:hosp f/u Provider:CL Last Refill:02-05-07 Last 2 BP Readings: Date: BP: 08/10/2006 110/76 08/02/2006 84/48 CR 3.20 07/31/2006 POTASSIUM 3.8 07/31/2006 Pt has an appt 05-11-06 with CHRISTIAN for BP check. Ok'd PSO Korina Villasenor, RN, BSN TY AND HEALTH MANAGER documented in this encounter Plan of Treatment Not on filedocumented as of this encounter Visit Diagnoses Diagnosis Unspecified essential hypertension documented in this encounter Additional Health Concerns Infection Onset Date Last Indicated Resolved Time MRSA-Contact IsolationComment: 0 04/26/2021 11:03 AM SAFETY AND HEALTH MANAGER Infection 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
--- OUTSIDE RECORDS SUMMARY | 2022-02-12 13:52 | XMS_ITS | Encounter Summary ---
:1960 Author Organization [facility] Address [address] [place] [address] Care Team Providers Name Role Phone Unavailable Primary Care Provider Unavailable Encounter Details Date Type Department Care Team Description 09/29/2006 Historic Notes INTERFACED REPORT Interface, Transcript on, Social History Tobacco Use Types Packs/Day Years Used Date Smoking Tobacco: Never Alcohol Use Standard Drinks/Week Comments Yes 0 (1 standard drink = 0.6 oz pure alcoho l) socially approx 5 drinks/wk Sex Assigned at Date Recorded Not on file documented as of this encounter Progress Notes Interface, Warehouse Shipping Supervisor - 07/12/2010 2:39 PM CDT SWS D: received MD order to see regarding discharge planning. Chart reviewed, noted hx ETOH use and CD evaluation pending. Noted MD note from today anticipating out-pt CD services. SWS to continue to follow, assist as needed with services arrangemnets a based on CD evaluation. [Signature] Author:Angela Berumen (COMPUTER ANIMATOR) [Signed 29-Sep-2006 13:11] Interface, Warehouse Shipping Supervisor - 07/12/2010 2:38 PM CDT Patient Status Patient Status - Physical status Stable (s/s of potential complications absent or manageable) - Psychosocial status Stable Discharge Planning - Discharge From: [facility] - Patient Care Unit: Med-Surg 2 - PCU - Discharge To: Home/Alternative home - Method of discharge: Ambulatory - Transportation: Private Discharge Information Discharge Information - Discharge information Discharge instructions reviewed with pt/family/so; Prescriptions given - Accompanied by Self - Mode of Travel Ambulatory Medications and Prescriptions Medications and Prescriptions - Medications and Prescriptions given to patient Prescriptions Support Services Support Services - Is home care recommended? No Special Care Needs and Instructions - Diet Instructions: Regular as you tolerate. Drink plenty of fluids. - Activity Instructions: As you tolerate. - Report temp if greater 101 degrees F than: - Signs or symptoms to call Worsening signs of withdrawal. the physician: Worsening numbness, tingling or weakness in legs. - Who patient should call: Dr. Egan - Phone number of who patient [phone] should call: - Other Special Care Needs: Follow up with outpatient chemical dependency treatment. Follow Up Care - Physician name: Dr. Anderson ([phone]) - When to see physician: 2-3 weeks Signatures Sis Hernandez (RN) Authored: Patient Status, Discharge Planning, Discharge Information, Medications and Prescriptions, Support Services, Special Care Needs and Instructions, Follow Up Care Interface, Warehouse Shipping Supervisor - 07/12/2010 2:38 PM CDT SWS D: Spoke with RN who informs that CD general distillery worker has not been here to consult with pt. Per her discussion with MD it was requested that SWS talk with pt about CD resources, out-pt services prior to his dicsharge. SWS visit with pt was brief, pt standing at the door of his room waiting to leave, I am already an hour late. SWS presented pt with the information ( [facility] CD out-pt brochure and #, community resources) and strongly encouraged his follow-up. Pt accepted information and quickly left the unit. A: With brief intervention due to pt's desire to leave, unable to fully assess additional needs, support. P: No further SWS. [Signature] Author:Angela Berumen (FLOR) [Signed 29-Sep-2006 16:11] Interface, Warehouse Shipping Supervisor - 07/12/2010 2:37 PM CDT Patient restless and anxious to be discharged today. He stated that he has a social engagement tonight and must leave hospital by 3pm. He appeared to be experiencing minor to moderate withdrawal but declined a sedative. He verbalized being open to treatment and knew that he needs to stop drinking. Neurology approved discharge after EMG which was done this afternoon. Dr. Egan (primary) approved discharge after CD eval completed. CD eval was order 09/28/06 at 9AM. This grant writer attempted to contact the office of the business services specialist sales by both phone and pager for total of 6 attempts. pupil personnel services director also had the intake office try to contact the business services specialist sales. Patient appeared to be about to leave AMA due to the lateness or the day and the CD eval not completed yet. Dr. Egan notified and order received to give patient outpatient CD treatment resources. pupil personnel services director was informed and completed referral. Patient abruptly left after SW gave him papers. Patient did drive himself home. He appeared to be agitated and anxious to leave but able to coordinate his movements. [Signature] Author:Sis Hernandez (OZZIE) [Signed 29-Sep-2006 16:36] documented in this encounter Plan of Treatment Not on filedocumented as of this encounter Visit Diagnoses Not on filedocumented in this encounter Additional Health Concerns Infection Onset Date Last Indicated Resolved Time MRSA-Contact IsolationComment: 0 04/26/2021 11:03 AM SNELLER HAND Infection 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
--- OUTSIDE RECORDS SUMMARY | 2022-02-12 13:52 | XMS_ITS | Encounter Summary ---
:1960 Author Organization [facility] Address [address] [place] [address] Care Team Providers Name Role Phone Unavailable Primary Care Provider Unavailable Reason for Visit Reason Onset Date Comments Refill Request 05/08/2007 omeprazole Encounter Details Date Type Department Care Team Description 05/08/2007 Refill [facility] Julius Welsh MD Refill Request Clinic [address] (omeprazole) [address] [place] [phone] Social History Tobacco Use Types Packs/Day Years Used Date Smoking Tobacco: Never Alcohol Use Standard Drinks/Week Comments Yes 0 (1 standard drink = 0.6 oz pure alcoho l) socially approx 5 drinks/wk Sex Assigned at Date Recorded Not on file documented as of this encounter Miscellaneous Notes Telephone Encounter - Leatha Lua - 05/08/2007 1:40 PM CST Last ov 08/10/06 Last filled 04/06/07 Medication approved per standing orders/Leatha Lua RN ICAL RESEARCH ASSISTANT documented in this encounter Plan of Treatment Not on filedocumented as of this encounter Visit Diagnoses Diagnosis Hemorrhage of gastrointestinal tract, un specified documented in this encounter Additional Health Concerns Infection Onset Date Last Indicated Resolved Time MRSA-Contact IsolationComment: 0 04/26/2021 11:03 AM CLINICAL RESEARCH ASSISTANT Infection 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
--- OUTSIDE RECORDS SUMMARY | 2022-02-12 13:52 | XMS_ITS | Encounter Summary ---
:1960 Author Organization [address] [address] Care Team Providers Name Role Phone Unavailable Primary Care Provider Unavailable Encounter Details Date Type Department Care Team Description 05/11/2007 Orders Only [facility] Julius Welsh MD DIAGNOSIS NOT YET Clinic [address] DEFINED (Primary Dx) [address] [place] [address] [phone] Social History Tobacco Use Types Packs/Day Years [...] Associated Diagnosis Comme nts HCL LDL-CHOLESTEROL Routine 05/11/2007 DIAGNOSIS NOT YET Res ults for this DEFINED procedure are i n the results section . HCL TRIGLYCERIDES Routine 05/11/2007 DIAGNOSIS NOT YET Resul ts for this DEFINED procedure are i n the results section . HCL HDL CHOLESTEROL Routine 05/11/2007 DIAGNOSIS NOT YET Res ults for this DEFINED procedure are i n the results section . HCL CHOLESTEROL Routine 05/11/2007 DIAGNOSIS NOT YET Results for this DEFINED procedure are i n the results section . documented in this encounter Results LDL-CHOLESTEROL [[id number]] (05/11/2007) P athologist Signature LDL Cholesterol 92 mg/dL MISYS Calculated Julius Welsh MD LABORATORY Performing Organization Address City/State/ZIP Code Phon e Number MIS[facility] HDL CHOLESTEROL [03536.000] (05/11/2007) P athologist Signature HDL Cholesterol 43 mg/dL [facility] Julius Welsh MD LABORATORY Performing Organization Address [facility] Code Phon e Number [facility] TRIGLYCERIDES [29128.000] (05/11/2007) P athologist Signature Triglycerides 134 mg/dL [facility] Julius Welsh MD LABORATORY Performing Organization Address [facility] Phon e Number MISYS CHOLESTEROL [07044.000] (05/11/2007) P athologist Signature Cholesterol 162 115 - 199 MISYS mg/dL Julius Welsh MD LABORATORY Performing Organization Address [facility] Phon e Number MISYS documented in this encounter Visit Diagnoses Diagnosis DIAGNOSIS NOT YET DEFINED - Primary documented in this encounter Additional Health Concerns Infection Onset Date Last Indicated Resolved Time MRSA-Contact IsolationComment: 0 04/26/2021 11:03 AM 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
--- OUTSIDE RECORDS SUMMARY | 2022-02-12 13:52 | XMS_ITS | Encounter Summary ---
:1960 Author Organization [facility] Address [address] [place] [address] Care Team Providers Name Role Phone Unavailable Primary Care Provider Unavailable Reason for Visit Reason Onset Date Comments Nurse Advice Line 01/15/2008 ETOH Encounter Details Date Type Department Care Team Description 01/15/[address] [facility] se Advice Line (ETOH) [place] [phone] Social History Tobacco Use Types Packs/Day Years Used Date Smoking Tobacco: Never Alcohol Use Standard Drinks/Week Comments Yes 0 (1 standard drink = 0.6 oz pure alcoho l) socially approx 5 drinks/wk Sex Assigned at Date Recorded Not on file documented as of this encounter Miscellaneous Notes Telephone Encounter - Mai Khoury - 01/15/2008 1:25 PM CDT Pt notified Mai Khoury RN Telephone Encounter - Julius Welsh - 01/15/2008 12:10 PM CDT Cold turkey ok Telephone Encounter - Mai Khoury - 01/15/2008 11:49 AM CDT Pt calls, admits to drinking 20 oz of whiskey qd, trying to quit cold turkey, has gone 24 hours without, c/o DT's, has appt 01/16 to discuss, wonders if Li can rx something over the phone and if okay toDC cold turkey, aware Li only in til noon today, will route high priority, routed for call back @ [phone] (home) Mai Khoury RN documented in this encounter Plan of Treatment Not on filedocumented as of this encounter Visit Diagnoses Diagnosis Alcohol abuse - Primary Alcohol abuse, unspecified documented in this encounter Additional Health Concerns Infection Onset Date Last Indicated Resolved Time MRSA-Contact IsolationComment: 0 04/26/2021 11:03 AM REEL OPERATOR Infection 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
--- OUTSIDE RECORDS SUMMARY | 2022-02-12 13:52 | XMS_ITS | Encounter Summary ---
:1960 Author Organization [place] Address [address] [place] [address] Care Team Providers Name Role Phone Unavailable Primary Care Provider Unavailable Encounter Details Date Type Department Care Team Description 09/27/2006 Historic Results [facility] Horace Egan Magnolia MD Nav[place] [address] [place] [phone] (Wo rk) Social History Tobacco Use Types [...] Name Priority Date/Time Associated Comments Diagnosis C DIFFERENTIAL TOXIN A Routine 09/27/2006 11:20 R esults for this AM CDT procedure are i n the results section. STOOL CULTURE Routine 09/27/2006 11:20 Results fo r this AM CDT procedure are i n the results section. SODIUM RANDOM URINE Routine 09/27/2006 11:20 Resu lts for this AM CDT procedure are i n the results section. ROUTINE UA WITH Routine 09/27/2006 11:20 Results for this MICROSCOPIC AM CDT procedure are i n the results section. OVA AND PARASITES Routine 09/27/2006 11:20 Result s for this ([facility]) AM CDT procedure are i n the results section. CREATININE RANDOM URINE Routine 09/27/2006 11:20 Results for this AM CDT procedure are i n the results section. C DIFFICILE CULTURE Routine 09/27/2006 11:20 Resu lts for this AM CDT procedure are i n the results section. VITAMIN B12 AND FOLATE Timed 09/27/2006 9:50 Re sults for this AM CDT procedure are i n the results section. TSH WITH FREE T4 REFLEX Routine 09/27/2006 9:50 R esults for this AM CDT procedure are i n the results section. TISSUE TRANSGLUTAMINASE Timed 09/27/2006 9:50 R esults for this BHARAT IGA AND IGG AM CDT procedure ar e in the results section. IGA Timed 09/27/2006 9:50 Results for this AM CDT procedure are i n the results section. HIV 1 AND 2 ANTIBODY Timed 09/27/2006 9:50 Resu lts for this ([facility]) AM CDT procedure are i n the results section. GLIADIN ANTIBODY IGA IGG Timed 09/27/2006 9:50 Results for this AM CDT procedure are i n the results section. GLUCOSE BY METER Routine 09/27/2006 5:19 Results for this AM CDT procedure are i n the results section. HEMOGRAM DIFFERENTIAL STAT 09/27/2006 5:12 Res ults for this AND PLATELET AM CDT procedure are i n the results section. LIPASE Routine 09/27/2006 5:12 Results for this AM CDT procedure are i n the results section. HEPATIC FUNCTION PANEL Routine 09/27/2006 5:12 Re sults for this AM CDT procedure are i n the results section. BASIC METABOLIC PANEL STAT 09/27/2006 5:12 Res ults for this AM CDT procedure are i n the results section. documented in this encounter Results Sodium random urine (09/27/2006 11:20 AM CDT) athologist Signature Sodium Urine 84 mmol/L MISYS mmol/L Specimen Anatomical Collection Method Collection Time Receive d Time (Source) Location / / Volume Laterality 09/27/2006 11:20 09/27/2006 8:25 AM CDT AM CDT Liudmila Austin MD LAB - URINE ORDERABLES Performing Organization Address City/State/ZIP Code Phon e Number MISYS Creatinine random urine (09/27/2006 11:20 AM CDT) athologist Signature Creatinine Urine 191 mg/dL MISYS Random Specimen Anatomical Collection Method Collection Time Receive d Time (Source) Location / / Volume Laterality 09/27/2006 11:20 09/27/2006 8:25 AM CDT AM CDT Liudmila Austin MD LAB - URINE ORDERABLES Performing Organization Address [facility] Code Phon e Number MISYS (ABNORMAL) Routine UA with microscopic (09/27/2006 11:20 AM CDT) [facility] Method Time Signature Source Midstream MISYS Urine Color Urine Yellow MISYS Appearance Urine Clear MISYS Glucose Urine Negative NEG mg/dL MISYS Bilirubin Urine Negative NEG MISYS Ketones Urine 5 (A) NEG mg/dL MISYS Specific [place] 1.011 1.003 - MISYS Urine 1.035 Blood Urine Large (A) NEG MISYS pH Urine 6.0 5.0 - 7.0 MISYS pH Protein Albumin Negative NEG mg/dL MISYS Urine Urobilinogen Normal 0.0 - 2.0 MISYS mg/dL mg/dL Nitrite Urine Negative NEG MISYS Leukocyte Negative NEG MISYS Esterase Urine WBC Urine 2 0 - 2 MISYS /HPF RBC Urine 3 (H) 0 - 2 MISYS /HPF Specimen Anatomical Collection Method Collection Time Receive d Time (Source) Location / / Volume Laterality 09/27/2006 11:20 09/27/2006 AM CDT 11:43 AM CDT Liudmila Austin MD LAB - URINE ORDERABLES Performing Organization Address [facility] Phon e Number MISYS C difficile culture (09/27/2006 11:20 AM CDT) [facility] Method Time Signature Specimen Feces MISYS Descrip C Difficile No Clostridium MISYS Culture difficile isolated Specimen Anatomical Collection Method Collection Time Receive d Time (Source) Location / / Volume Laterality 09/27/2006 11:20 09/27/2006 AM CDT 11:58 AM CDT Tristan Egan MD LAB - MICRO GENERAL ORDERABL ES Performing Organization Address [facility]/ZIP Code Phon e Number MISYS C differential toxin A (09/27/2006 11:20 AM CDT) [facility] Method Time Signature Specimen Feces MISYS Description C difficile Negative for MISYS Toxin A Clostridium Toxin A Specimen Anatomical Collection Method Collection Time Receive d Time (Source) Location / / Volume Laterality 09/27/2006 11:20 09/27/2006 AM CDT 11:58 AM CDT Tristan Egan MD LAB - STOOLS ORDERABLES Performing Organization Address [facility] Phon e Number MISYS Ova and parasites (09/27/2006 11:20 AM CDT) Component Value Ref Test Analysis Performed At [facility] gist Range Method Time Signature Specimen Feces MISYS Description Micro Report FINAL [id number] MISYS Status Parasite Routine MISYS Routine parasitology exam negative Comment: Rare PMNs seen Specimen received in preservative Specimen Anatomical Collection Method Collection Time Receive d Time (Source) Location / / Volume Laterality 09/27/2006 11:20 09/27/2006 AM CDT 11:58 AM CDT Tristan Egan MD LAB - MICRO GENERAL ORDERABL ES Performing Organization Address [facility] Phon e Number MISYS Stool culture SSCE (09/27/2006 11:20 AM CDT) Component Value Ref Test Analysis Performed At [facility] gist Range Method Time Signature Specimen Feces MISYS Description Culture Micro No Salmonella, MISYS Shigella, Campylobacter or E coli 0:157 isolated. Micro Report FINAL [id number] MISYS Status Specimen Anatomical Collection Method Collection Time Receive d Time (Source) Location / / Volume Laterality 09/27/2006 11:20 09/27/2006 AM CDT 11:58 AM CDT Tristan Egan MD LAB - MICRO GENERAL ORDERABL ES Performing Organization Address [facility] Phon e Number MISYS Vitamin B12 and folate (09/27/2006 9:50 AM CDT) athologist Signature Folate >24.0 >3.3 ng/mL MISYS Comment: Interp: >5.4 ng/mL = Normal Vitamin B12 319 >210 pg/mL MISYS Comment: Interp: [phone] = Normal Specimen Anatomical Collection Method Collection Time Receive d Time (Source) Location / / Volume Laterality 09/27/2006 9:50 AM 7 CDT 10:00 AM CDT Liudmila Austin MD LAB - BLOOD ORDERABLES Performing Organization Address [facility] Phon e Number MISYS IgA (09/27/2006 9:50 AM CDT) athologist Signature IGA 198 70 - 380 MISYS mg/dL Specimen Anatomical Collection Method Collection Time Receive d Time (Source) Location / / Volume Laterality 09/27/2006 9:50 AM 7 CDT 10:00 AM CDT Liudmila Austin MD LAB - BLOOD ORDERABLES Performing Organization Address City/[facility]/ZIP Code Phon e Number MISYS Gliadin antibody IgA IgG (09/27/2006 9:50 AM CDT) P athologist Signature Gliadin 0.8 U/mL MISYS Antibody IgA Comment: Interpretation: Negative Gliadin Antibody IgG 5.4 U/mL MISYS Comment: Interpretation: Negative Specimen Anatomical Collection Method Collection Time Receive d Time (Source) Location / / Volume Laterality 09/27/2006 9:50 AM 7 CDT 10:00 AM CDT Liudmila Austin MD LAB - BLOOD ORDERABLES Performing Organization Address [facility] Phon e Number MISYS Tissue transglutaminase bharat IgA and IgG (09/27/2006 9:50 AM CDT) [facility] Method Time Signature Tissue <0.5 U/mL MISYS Transglutaminase Antibody IgA Comment: Interpretation: Negative Tissue Transglutaminase Bharat IgG 0.8 U/mL MISYS Comment: Interpretation: Negative Specimen Anatomical Collection Method Collection Time Receive d Time (Source) Location / / Volume Laterality 09/27/2006 9:50 AM 7 CDT 10:00 AM CDT Liudmila Austin MD LAB - BLOOD ORDERABLES Performing Organization Address City/[facility] Code Phon e Number MISYS TSH with free T4 reflex (09/27/2006 9:50 AM CDT) P athologist Signature TSH 1.88 0.4 - 5.0 MISYS mU/L Specimen Anatomical Collection Method Collection Time Receive d Time (Source) Location / / Volume Laterality 09/27/2006 9:50 AM 7 CDT 10:30 AM CDT Liudmila Austin MD LAB - BLOOD ORDERABLES Performing Organization Address City/[facility]/ZIP Code Phon e Number MISYS HIV 1 and 2 Antibody (09/27/2006 9:50 AM CDT) athologist Signature HIV 1&2 Negative NEG MISYS Antibody Specimen Anatomical Collection Method Collection Time Receive d Time (Source) Location / / Volume Laterality 09/27/2006 9:50 AM 7 CDT 10:00 AM CDT Liudmila Austin MD LAB - BLOOD ORDERABLES Performing Organization Address City/State/ZIP Code Phon e Number MISYS Glucose by meter (09/27/2006 5:19 AM CDT) athologist Signature Glucose 86 60 - 99 MISYS mg/dL Specimen Anatomical Collection Method Collection Time Receive d Time (Source) Location / / Volume Laterality 09/27/2006 5:19 AM 7 5:26 CDT AM CDT Tristan Egan MD LAB - BEAKER POCT Performing Organization Address City/[facility]/ZIP Code Phon e Number MISYS (ABNORMAL) Hemogram differential and platelet (09/27/2006 5:12 AM CDT) [facility] gist Method Time Signature MCV 99 78 - 100 MISYS fl MCH 32.7 26.5 - MISYS 33.0 pg MCHC 33.0 31.5 - MISYS 36.5 g/dL RDW 16.0 (H) 10.0 - MISYS 15.0 % WBC 5.9 4.0 - MISYS 11.0 10e9/L RBC Count 4.07 (L) 4.4 - 5.9 MISYS 10e12/L Hemoglobin 13.3 13.3 - MISYS 17.7 g/dL Hematocrit 40.3 40.0 - MISYS 53.0 % % Neutrophils 63 40 - 75 % MISYS % Lymphocytes 17 (L) 20 - 48 % MISYS % Monocytes 16 (H) 0 - 12 % MISYS % Eosinophils 3 0 - 6 % MISYS % Basophils 1 0 - 2 % MISYS Platelet Count 156 150 - 450 MISYS 10e9/L Absolute 3.7 1.6 - 8.3 MISYS Neutrophil 10e9/L Absolute 1.0 0.8 - 5.3 MISYS Lymphocytes 10e9/L Absolute 0.9 0.0 - 1.3 MISYS Monocytes 10e9/L Absolute 0.2 0.0 - 0.7 MISYS Eosinophils 10e9/L Absolute 0.0 0.0 - 0.2 MISYS Basophils 10e9/L Diff Method Automated MISYS Method Specimen Anatomical Collection Method Collection Time Receive d Time (Source) Location / / Volume Laterality 09/27/2006 5:12 AM 7 4:49 CDT AM CDT Froylan Reich LAB - BLOOD ORDERABLES Performing Organization Address [facility] Phon e Number MISYS (ABNORMAL) Basic metabolic panel (09/27/2006 5:12 AM CDT) [facility] Time Signature Sodium 142 133 - 144 MISYS mmol/L Potassium 3.9 3.4 - 5.3 MISYS mmol/L Chloride 100 94 - 109 MISYS mmol/L Carbon Dioxide 26 20 - 32 MISYS mmol/L Glucose 87 60 - 99 MISYS mg/dL Urea Nitrogen 16 5 - 24 MISYS mg/dL Creatinine 2.28 (H) 0.80 - MISYS 1.50 mg/dL GFR Estimate 33 (L) >60 MISYS mL/min/1.7 m2 GFR Estimate If 41 (L) >60 MISYS Black mL/min/1.7 m2 Calcium 9.4 8.5 - 10.4 MISYS mg/dL Comment: Reviewed, acceptable Anion Gap 16 6 - 17 mmol/L MISYS Specimen Anatomical Collection Method Collection Time Receive d Time (Source) Location / / Volume Laterality 09/27/2006 5:12 AM 7 4:49 CDT AM CDT Froylan Reich LAB - BLOOD ORDERABLES Performing Organization Address City/[facility] Phon e Number MISYS (ABNORMAL) Hepatic panel (09/27/2006 5:12 AM CDT) Analysis Performed At [facility] Time Signature AST 111 (H) 0 - 55 U/L MISYS Protein Total 8.5 (H) 6.0 - 8.2 MISYS g/dL Albumin 4.6 3.3 - 4.6 MISYS g/dL ALT 49 0 - 70 U/L MISYS Alkaline 94 40 - 150 MISYS Phosphatase U/L Bilirubin 0.0 0.0 - 0.3 MISYS Conjugated mg/dL Bilirubin Delta 0.1 0.0 - 0.4 MISYS mg/dL Bilirubin Total 1.9 (H) 0.2 - 1.3 MISYS mg/dL Specimen Anatomical Collection Method Collection Time Receive d Time (Source) Location / / Volume Laterality 09/27/2006 5:12 AM 7 7:03 CDT AM CDT Froylan Reich LAB - BLOOD ORDERABLES Performing Organization Address City/State/ZIP Code Phon e Number MISYS (ABNORMAL) Lipase (09/27/2006 5:12 AM CDT) P athologist Signature Lipase 663 (H) 20 - 250 MISYS U/L Comment: Reviewed, acceptable Specimen Anatomical Collection Method Collection Time Receive d Time (Source) Location / / Volume Laterality 09/27/2006 5:12 AM 7 7:03 CDT AM CDT Froylan Reich LAB - BLOOD ORDERABLES Performing Organization Address City/State/ZIP Code Phon e Number MISYS documented in this encounter Visit Diagnoses Not on filedocumented in this encounter Additional Health Concerns Infection Onset Date Last Indicated Resolved Time MRSA-Contact IsolationComment: 0 04/26/2021 11:03 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
--- OUTSIDE RECORDS SUMMARY | 2022-02-12 13:52 | XMS_ITS | Encounter Summary ---
:1960 Author Organization [place] Address [address] [place] [address] Care Team Providers Name Role Phone Unavailable Primary Care Provider Unavailable Reason for Visit Reason Onset Date Comments Refill Request 01/14/2008 Omeprazole Slk Encounter Details Date Type Department Care Team Description 01/14/2008 Refill [facility] Julius Welsh MD Refill Request [facility] [place] [address] [place] [address] (Omeprazole Slk) [id number] [place] [phone] Social History Tobacco Use Types Packs/Day Years Used Date Smoking Tobacco: Never Alcohol Use Standard Drinks/Week Comments Yes 0 (1 standard drink = 0.6 oz pure alcoho l) socially approx 5 drinks/wk Sex Assigned at Date Recorded Not on file documented as of this encounter Miscellaneous Notes Telephone Encounter - Janelle Olmedo - 01/14/2008 10:21 AM CDT Denied, Pso pt hasn't been seen since 08/10/06 and was already given one refill and sent a reminder letter to make an appt Last Seen: 08/10/06 with [facility] Rtc instructions: see above Last Filled: 11/08/07 Janelle Olmedo RN. 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
--- OUTSIDE RECORDS SUMMARY | 2022-02-12 13:52 | XMS_ITS | Encounter Summary ---
:1960 Author Organization [place] Address [address] [place] [address] Care Team Providers Name Role Phone Unavailable Primary Care Provider Unavailable Reason for Visit Reason Onset Date Comments Refill Request 02/05/2007 lisinopril Encounter Details Date Type Department Care Team Description 02/05/2007 Refill [facility] Ref ill Request (lisinopril) [place] [phone] Social History Tobacco Use Types Packs/Day Years Used Date Smoking Tobacco: Never Alcohol Use Standard Drinks/Week Comments Yes 0 (1 standard drink = 0.6 oz pure alcoho l) socially approx 5 drinks/wk Sex Assigned at Date Recorded Not on file documented as of this encounter Miscellaneous Notes Telephone Encounter - Mai Khoury - 02/05/2007 12:21 PM CDT Last OV: 08/10/06 Reason for visit: GI hem, lipids, told to f/u one month Date last filled: 01/05/07 Last 2 BP Readings: Date: BP: 08/10/2006 110/76 08/02/2006 84/48 CR 3.20 07/31/2006 POTASSIUM 3.8 07/31/2006 WILL OK X 1, RX LETTER SENT Medication approved per standing orders Mai Khoury RN documented in this encounter Plan of Treatment Not on filedocumented as of this encounter Visit Diagnoses Diagnosis Unspecified essential hypertension - Una grey documented in this encounter Additional Health Concerns Infection Onset Date Last Indicated Resolved Time MRSA-Contact IsolationComment: 0 04/26/2021 11:03 AM 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
--- OUTSIDE RECORDS SUMMARY | 2022-02-12 13:52 | XMS_ITS | Encounter Summary ---
:1960 Author Organization [place] Address [address] [place] [address] Care Team Providers Name Role Phone Unavailable Primary Care Provider Unavailable Reason for Visit Reason Onset Date Comments Refill Request 11/13/2006 OMEPRAZOLE Encounter Details Date Type Department Care Team Description 11/13/2006 Refill [facility] Ref ill Request (OMEPRAZOLE) [place] [phone] Social History Tobacco Use Types Packs/Day Years Used Date Smoking Tobacco: Never Alcohol Use Standard Drinks/Week Comments Yes 0 (1 standard drink = 0.6 oz pure alcoho l) socially approx 5 drinks/wk Sex Assigned at Date Recorded Not on file documented as of this encounter Miscellaneous Notes Telephone Encounter - Liudmila Austin - 11/13/2006 5:21 PM CDT Rx refilled again. Patient should come in within the year for some labs and follow up. Liudmila Austin MD Telephone Encounter - Mai Khoury - 11/13/2006 4:56 PM CDT Last OV: 08/10/06 Reason for visit: GI hemm, lipids Date last filled: 10/06/06 Med from hosp (), unable to PSO, will route to Mai Khoury RN documented in this encounter Plan of Treatment Not on filedocumented as of this encounter Visit Diagnoses Diagnosis Hemorrhage of gastrointestinal tract, un specified - Primary documented in this encounter Additional Health Concerns Infection Onset Date Last Indicated Resolved Time MRSA-Contact IsolationComment: 0 04/26/2021 11:03 AM STAFF RADIOLOGIST Infection 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
--- OUTSIDE RECORDS SUMMARY | 2022-02-12 13:53 | XMS_ITS | Encounter Summary ---
:1960 Author Organization [facility] Address [facility] [place] [address] Care Team Providers Name Role Phone Unavailable Primary Care Provider Unavailable Encounter Details Date Type Department Care Team Description 09/27/2006 Consultation [facility] [address] [facility] [address], [place] [address] [address] [place] [address] [phone] (Wo rk) Social History Tobacco Use Types Packs/Day Years Used Date Smoking Tobacco: Never Alcohol Use Standard Drinks/Week Comments Yes 0 (1 standard drink = 0.6 oz pure alcoho l) socially approx 5 drinks/wk Sex Assigned at Date Recorded Not on file documented as of this encounter Progress Notes Albert Hawthorne - 10/12/2006 1:07 PM CDT FINAL NEUROLOGY CONSULTATION Elijah Brown is a 45-year-old right-handed white male admitted to [facility] for further evaluation of lower extremity symptoms as well as nausea and vomiting. I was asked to see the patient for neurologic assessment because of lower extremity paresthesias. The patient states that, starting approximately a month ago, he began experiencing some tingling sensation into his feet. Over the subsequent month the tingling has spread proximally to about the mid-calf level. He denies any pain with this, although he does describe a certain amount of hypersensitivity with light touch. He states that the symptoms are equally affected in both lower extremities. He denies any upper extremity symptoms. He denies any difficulties with his gait as a consequence. He had denies any weakness to his lower extremities or his upper extremities. His admission was prompted when he was seen in the emergency room because of these symptoms. He has also been experiencing problems with nausea and vomiting over the past few days. He does admit to very heavy alcohol consumption over the weekend, drinking with some friends on a fishing trip. He does admit to 2-3 drinks of hard liquor per day. PAST MEDICAL HISTORY INCLUDES: Anemia which was felt to be due to a GI bleed. He was noted to have elevated lipase, but no evidence of pancreatitis. CT scan showed fatty liver infiltration. He had also a diagnosis of Flores's esophagus after GI consultation was obtained, as well as gastritis and duodenitis. Past medical history also includes hypertension. MEDICATIONS: At the time of admission to the hospital include: iron sulfate, multivitamins, omeprazole, and a tapering schedule of Lipitor. His past medical history is otherwise unremarkable. He denies any allergies to medications. FAMILY HISTORY: Noncontributory. SOCIAL HISTORY: He is employed in a [employer] room. He denies any exposure to toxic chemicals or fumes. He denies any heavy metal exposure. As noted above, he does admit to 2 or 3 drinks perday and has recently gone through heavy alcohol use on a fishing trip. He is single. He denies any tobacco use. PHYSICAL EXAMINATION: GENERAL: The patient is a well-developed, well-nourished, very pleasant white male in no acute distress. His neck is supple. Carotid pulses are symmetric without bruits. VITAL SIGNS: He is afebrile. Pulse rate is 67 beats per minute. His blood pressure is 121/84. EXTREMITIES: Inspection of his lower extremities does not reveal any cutaneous changes. NEUROLOGIC: He is hyper-alert. He is quite tremulous. Otherwise, he is appropriate in his responses. General fund of knowledge is adequate. Short andlong-term memory are intact. On cranial nerve examination, nerves II-XII are intact. Funduscopic examination reveals sharp disks bilaterally. On sensory examination, he has intact sensation in both upper extremities. In lower extremities, has stocking hypesthesia to mid-calf level to pinprick. He has some mild decrease of vibratory sensation at the ankles. He has no allodynia during his examination today and does not display any evidence of hyperesthesias. Deep tendon reflexes are symmetric and goodquality in both upper and lower extremities, with diminished Achilles reflexes bilaterally. Gissel sign and toe signs are both negative. Romberg sign is mildly positive. On cerebellar testing, [id number] is done well. On evaluation of his station and gait, has does have a mild wide-based component to his gait. He is unable to tandem walk forwards or backwards. SUMMARY: Elijah Brown is a 45-year-old right-handed white male with a 1-month history of progressive paresthesias to his lower extremities. He has admitted to a heavy weekend of alcohol use. He admits to 2-3 drinks per day. He has had a number of prior difficulties including gastritis, fatty liver infiltration, Flores's esophagitis. His general examination reveals a very hyper-alert individual who is tremulous. His neurologic examination is significant for a stocking hypesthesia with decreased vibratory sensation and diminished deep tendon reflexes. He also has some midline cerebellar findings as well. His workup since admission to the hospital has included CBC, which is unremarkable. His MCV is borderline at 99. Electrolytes are normal, as is his glucose and BUN. Creatinine is elevated at 2.28. ALTis normal but the AST is elevated to 111. His lipase is significantly elevated at 663. TSH is normal. 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 The cause is unclear at this time. My main concern would be that of alcohol-related difficulty. 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 He is at risk, given his alcohol history. His station and gait also suggest alcoholic cerebellar difficulties as well. Other possibilities include Lyme's disease, heavy metal exposure, vitamin B12 deficiency. Possibility of thiamine deficiency needs to be considered as well. The other concern is that of impending alcohol withdrawal with DTs. I feel that he needs to be monitored closely for this particular problem. RECOMMENDATIONS AT THIS TIME: Would be to start him on thiamine 100 mg IV q. for 3 days. I will check Lyme's titer and 24-hour urine for heavy metals. Vitamin B12 level will be checked. To provide himsome symptomatic relief, will start him on Neurontin 300 mg p.o. t.i.d. Thank you very much for allowing me to participate in the care and evaluation of this very interesting and pleasant gentleman. 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
--- OUTSIDE RECORDS SUMMARY | 2022-02-12 13:53 | XMS_ITS | Encounter Summary ---
:1960 Author Organization [facility] Address [address] [place] [id number] Care Team Providers Name Role Phone Unavailable Primary Care Provider Unavailable Encounter Details Date Type Department Care Team Description 08/02/2006 Admission [facility] Julius Welsh MD (Senior Sourcing Manager) [address] [id number] [phone] (Wo rk) Social History Tobacco Use Types Packs/Day Years Used Date Smoking Tobacco: Never Alcohol Use Standard Drinks/Week Comments Yes 0 (1 standard drink = 0.6 oz pure alcoho l) socially approx 5 drinks/wk Sex Assigned at Date Recorded Not on file documented as of this encounter Progress Notes Julius Welsh - 08/03/2006 2:22 PM CDT FINAL HISTORY OF PRESENT ILLNESS: Sarah Beth Brown is a 45-year-old male, primary patient of Dr. Julius Welsh of [facility], who presented to Dr. Welsh on 07/31/2006 with a complaint of dizziness over the prior 2 weeks. When questioned further, he admitted he had some diarrhea over a week prior to that. He denied black, tarry stool or any accompanying fever or chills with that diarrhea. His physical examination in clinic at that time was otherwise unremarkable with the exception of blood pressure, which was relatively low for a patient, especially in light of a fact that he takes medication for a history of hypertension, and it was noted on that visit on 07/31 to be 84/50. His heart rate was in the mid 80s. He was told to discontinue his lisinopril, which he uses for hypertension andsubmitted himself for lab evaluation. The patient was noted later that evening by virtue of having some labs return to be profoundly anemic with a hemoglobin of 6.5 gm/dl and an MCV of 98, a white count of 6,800 with normal differential and normal platelet count. The patient was contacted and advised that he should seek evaluation and admission through the emergency room at [facility]. The patient deferred this, preferring to return the next day for follow up, which he did on 08/01/2006. The patient was seen by Dr. Parminder Wiseman, who evaluated the patient further by repeating his lab work including CBC, showing a hemoglobin value study at6.4 gm/dl. A peripheral smear was obtained for this patient, who had an elevated reticulocyte count of 2.6%, indicating consistency of a relatively acute process. On the basis of these findings, Dr. Wiseman strongly recommended the patient's admission to [facility] for a blood transfusion and subsequent evaluation by Gastroenterology for source of gastrointestinal bleed. The patient refused this offer against medical advice at that time but stated that he would follow up with Dr. Welsh on 08/02/2006. In the early afternoon of 08/02/2006, the remainder of the patient's labs from 07/31/2006 returned showing mild hyponatremia with a sodium value of 132 millimoles per liter, a depressed chloride value of88 millimoles per liter, a blood urea nitrogen of 79 and a creatinine of 3.2, all findings consistent with acute renal failure. Incidentally noted was the patient's profound hypercholesterolemia and hypertriglyceridemia. Also noted was a mildly elevated glucose value consistent with a returned glycosylated hemoglobin from 07/31 at 6.8%. The patient had a normal thyroid stimulating hormone value. It also should be noted that the patient's liver enzymes were slightly disordered with ALT of 60 and an ASTof 149 units per liter. Also incidentally noted was an elevated cardiac risk CRP of 10.6 mg per liter. However, in light of acute bleed, the value of this was possibly unreliable. PAST MEDICAL HISTORY: 1. Hypertension. 2. Hyperlipidemia. PAST SURGICAL HISTORY: None. FAMILY HISTORY: Noncontributory. SOCIAL HISTORY/HEALTH HABITS: The patient has never smoked cigarettes. He admits to having 5-6 drinks per week. This is hard alcohol. REVIEW OF SYSTEMS: Otherwise negative. ALLERGIES: The patient has no known drug allergies. MEDICATIONS: 1. Iron sulfate 325 mg p.o. b.i.d. This was initiated by Dr. Wiseman on 08/01/2006. 2. Lipitor 20 mg p.o. q. day. 3. Lisinopril 20 mg p.o. q.a.m. This was suspended on 07/31/2006. PHYSICAL EXAMINATION: GENERAL: male, quite male, in no imminent distress. VITAL SIGNS: He stands at 5'8, weighing 168 pounds. This equals a body mass index of 25.5 kg/m2. The patient is afebrile with a temperature of 98.2 degrees orally. Blood pressure is 84/40. Heart ratewhile sitting was 90 beats per minute. HEENT: Normocephalic, atraumatic. Pupils are equal and reactive to light and accommodation. Oropharynx is clear and not obstructed. NECK: Supple. Thyroid is not palpable. LUNGS: Clear to exam. HEART: Normal sinus rhythm without any murmur rub. Normal S1 and S2 are noted without any S3 or S4.ABDOMEN: Soft, nontender, nondistended. Pelvic tilt does not elicit any pain. There is no CVA tenderness. NEUROLOGIC: The patient is alert and oriented x3 and grossly nonfocal. He does not show any asterixis. EXTREMITIES: No clubbing, cyanosis or edema. ASSESSMENT AND PLAN: A 45-year-old male with subacute bleed leading to profound anemia, likely from a gastrointestinal source. Stool for occult blood was performed on 08/01/[address] Wiseman. It was noted to be positive. The patient will now accept admission to [facility] directly from clinic. As he is hemodynamically stable, will sent him to the Medical/Surgical floor. He will be typed and crossed and transfused for 2 units of packed red blood cells. We will obtain Gastroenterology consultation. The patient will be kept n.p.o. and be given a bowel prep. After the patient's acute issues with his anemia and the source of anemia are identified and resolved, we will undergo cardiac risk stratification and determination for this patient. 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
--- OUTSIDE RECORDS SUMMARY | 2022-02-12 13:53 | XMS_ITS | Encounter Summary ---
:1960 Author Organization [place] Address [address] [place] [address] Care Team Providers Name Role Phone Unavailable Primary Care Provider Unavailable Reason for Referral (Routine) - Closed Specialty Diagnoses / Procedures Referred By Contact Refer red To Contact Diagnoses Anemia, unspecified Parminder Wiseman MD [facility] [address] [place] [address] Referral ID Status Reason Start Date Expiration Date Visits V isits Requested Authorized [id number] Closed Consult Only 08/01/2006 01/31/2007 1 1 (Routine) - Closed Specialty Diagnoses / Procedures Referred By Contact Refer red To Contact Diagnoses Anemia, unspecified Parminder Wiseman MD [facility] [address] [place] [address] Referral ID Status Reason Start Date Expiration Date Visits V isits Requested Authorized [id number] Closed Consult Only 08/01/2006 05/03/2007 1 1 Reason for Visit Reason Comments RECHECK f/u abnormal lab results on 07/31/2006 Encounter Details Date Type Department Care Team Description 08/01/2006 Office Visit [facility] Parminder Wiseman (Primary Dx); [facility] Kavon Rabago MD DIZZINESS AND GIDDINESS; [address] [facility] GRACE ALVAREZ MELENA, BLOOD IN STOOL [place], [place] [address] [address] [phone] YAMINI Garcia [place], [place] [address] (Wo rk) Social History Tobacco Use Types Packs/Day Years Used Date Smoking Tobacco: Never Alcohol Use Standard Drinks/Week Comments Yes 0 (1 standard drink = 0.6 oz pure alcoho l) socially approx 5 drinks/wk Sex Assigned at Date Recorded Not on file documented as of this encounter Last Filed Vital Signs Vital Sign Reading Time Taken Comments Blood Pressure 88/50 08/01/2006 11:45 AM CDT Pulse 80 08/01/2006 11:45 AM CDT Temperature 36.7 ??C (98 ??F) 08/01/2006 11:45 AM CDT Respiratory Rate 16 08/01/2006 11:45 AM CDT Oxygen Saturation - - Inhaled Oxygen Concentration - - Weight 76.2 kg (168 lb) 08/01/2006 11:45 AM CDT Height - - Body Mass Index 25.54 07/31/2006 3:45 PM CDT documented in this encounter Progress Notes Parminder Wiseman - 08/01/2006 12:04 PM CDT Sarah Beth Brown is a 45 year old male who presents for follow-up of lab tests yesterday. He was seendue to dizziness x 2 weeks and fatigue. No fevers, chills, nausea, or vomiting. He denies melena or hematochezia. He denies heavy aspirin or ibuprofen use. He has had some diarrhea for 1 day but now has returned to normal. He has not been eating well for last 2 weeks- eating only 1 meal per day. Patient states he feels better today than he did yesterday. He claims he has an interview tomorrow for a job and would like to be better. Patient denies any exertional chest pain, dyspnea, palpitations, syncope, orthopnea, edema or paroxysmal nocturnal dyspnea. The patient denies abdominal or flank pain, ano rexia, dysphagia, or black or bloody stools. Past Medical History Diagnosis Date ??? HYPERTENSION NOS ??? HYPERLIPIDEMIA NEC/NOS ??? ANEMIA NOS Current outpatient prescriptions Medication Sig ??? LIPITOR 20 MG OR TABS 1 TABLET DAILY ??? LISINOPRIL 20 MG OR TABS 1 TABLET DAILY Allergies: No known drug allergies OBJECTIVE: BP 88/50 Pulse 80 Temp (Src) 98 (Oral) Resp 16 Wt 168 lbs (76.2kg) GENERAL APPEARANCE: alert, cooperative and pale EYES: EOMI, PERRL, pale conjunctiva HENT: ear canals and TM's normal and nose and mouth without ulcers or lesions NECK: no adenopathy, no asymmetry, masses, or scars and thyroid normal to palpation RESP: lungs clear to auscultation - no rales, rhonchi or wheezes CV: regular rates and rhythm, normal S1 S2, no S3 or S4 and no murmur, click or rub ABDOMEN: soft, nontender, no HSM or masses and bowel sounds normal RECTAL: guaiac-positive stool without rectal mass MS: extremities normal- no gross deformities noted, no evidence of inflammation in joints, FROM in all extremities. SKIN: Warm but pale NEURO: Normal strength and tone, sensory exam grossly normal, mentation intact. Seems slightly off-balance when ambulating PSYCH: mentation appears normal. LABS: pending hemoglobin 6.5 guaiac-positive stool ASSESSMENT/PLAN: 285.9 ANEMIA NOS (primary encounter diagnosis) Note: Severe anemia seems to be from GI bleed Plan: FERRITIN, IRON & TIBC, CONSULT ONCOLOGY/HEMATOLOGY, CBC WITH PLATELETS, DIFF, RETICULOCYTE COUNT, BLOOD SMEAR, PERIPHERAL, INTERPRETATION, PHYSICIAN W/ WRITTEN REPORT, IRON (FERROUS SULFATE) TABS 325 MG OR, IMMUNOS OCCULT BLOOD, CONSULT [facility], BLOOD SMEAR, PERIPHERAL, INTERPRETATION, PHYSICIAN W/ WRITTEN REPORT I offered the patient admission to the hospital due to severe anemia and his orthostasis. Patient refused admission despite my encouraging. I explained to him that this is a serious condition and can result in . Patient states he wanted to go home and think about this before being admitted. He claims he's following up with Dr. Welsh tomorrow and will decide at that time. Patient decided not to be admitted against medical advice. 780.4 DIZZINESS AND GIDDINESS Note: Secondary to severe anemia Plan: Recommended admission to hospital but patient refused 578.1 MELENA, BLOOD IN STOOL Note: guaiac positive stool Plan: Patient seems to have a small GI bleed which will need evaluation. Parminder Wiseman MD [facility] documented in this encounter Nursing Notes 08/01/2006 11:45 AM CDT >> MELISSA HENSON 08/01/2006 11:45 am Patient presents with: RECHECK - f/u abnormal lab results on 07/31/2006 Initial BP 88/50 Pulse 80 Temp (Src) 98 (Oral) Resp 16 Wt 168 lbs (76.2kg) Estimated Body mass index is 25.55 kg/(m^2) as calculated from: Height of 5' 8 (1.727 m) as of 07/31/06 Weight of 168 lbs (76.204 kg) as of this encounter. BP completed using cuff size regular Melissa Henson/SHERI documented in this encounter Plan of Treatment Not on filedocumented as of this encounter Procedures Procedure Name Priority Date/Time Associated Comments Diagnosis ZZ CONSULT Routine 08/30/2006 Anemia Nos Results for th is [facility] procedure a re in the results section. CL AFF CBC WITH Routine 08/01/2006 12:16 Anemia Nos Results for this PLATELETS, DIFF PM CDT procedure ar e in the results section. CL AFF IMMUNO OCCULT Routine 08/01/2006 12:15 Anemia Nos Res ults for this BLOOD PM CDT procedure are i n the results section. IRON & TIBC Routine 08/01/2006 12:15 Anemia Nos Results for this PM CDT procedure are i n the results section. ZZCL AFF BLOOD SMEAR, Routine 08/01/2006 12:15 Anemia Nos Re sults for this PERIPHERAL, PM CDT procedure are i n INTERPRETATION, the results PHYSICIAN W/ WRITTEN section . REPORT ZZCL AFF RETICULOCYTE Routine 08/01/2006 12:15 Anemia Nos Re sults for this COUNT PM CDT procedure are i n the results section. HCL FERRITIN Routine 08/01/2006 12:15 Anemia Nos Results for this PM CDT procedure are i n the results section. ZZCL AFF BLOOD SMEAR, Routine 08/01/2006 12:00 Anemia Nos Re sults for this PERIPHERAL, AM CDT procedure are i n INTERPRETATION, the results PHYSICIAN W/ WRITTEN section . REPORT documented in this encounter Results CONSULT [facility] (08/30/2006) Narrative This result has an attachment that is no t available. Parminder Wiseman MD REFERRAL (ABNORMAL) CBC WITH PLATELETS, DIFF (08/01/2006 12:16 PM CDT) P athologist Signature WBC 9.2 4.0 - 11.0 [place] 10e9/L [facility] RBC Count 2.07 (L) 4.4 - 5.9 [place] 10e12/L [facility] Hemoglobin 6.4 (LL) 13.3 - 17.7 [place] g/dL [facility] Comment: Results confirmed by repeat patricia t Hematocrit 19.9 (L) 40.0 - 53.0 % [facility] MCV 96 78 - 100 fl [facility] MCH 30.9 26.5 - 33.0 pg [facility] MCHC 32.2 31.5 - 36.5 [facility] g/dL [facility] RDW 14.4 10.0 - 15.0 % [facility] Platelet Count 337 150 - [address] LAB % Neutrophils 62 40 - 75 % [facility] % Lymphocytes 24 20 - 48 % [facility] % Monocytes 11 0 - 12 % [facility] % Eosinophils 3 0 - 6 % [facility] Absolute Neutrophil 5.7 1.6 - 8.3 [facility] 10e9[facility] Absolute Lymphocytes 2.2 0.8 - 5.3 [facility] 10e9[facility] Absolute Monocytes 1.0 0.0 - 1.3 [place] [facility] 10e9/[facility] Absolute Eosinophils 0.3 0.0 - 0.7 [facility] 10e9[facility] Anisocytosis Slight [facility] Basophilic Stipling Present [facility] RBC Morphology Slide to be reviewed by F [facility] Pathologist [facility] Platelet Estimate Normal [facility] Diff Method Manual Differential [facility] CORRECTED ON 08/01 AT 1945: PREVIOUSLY REPORTED Manual Method HOSPITAL LAB Specimen Anatomical Collection Method Collection Time Receive d Time (Source) Location / / Volume Laterality 08/01/2006 12:16 08/01/2006 PM CDT 12:18 PM CDT Parminder Wiseman MD LABORATORY Performing Organization Address City/[facility]/ZIP Code Phon e Number M [facility] [address] [place], [place] [address] [facility] (ABNORMAL) IMMUNOS OCCULT BLOOD (08/01/2006 12:15 PM CDT) [facility] Signature Occult Blood Positive (A) NEG [place] Slide 1 [facility] Slide 1 Date 08/01/06 [facility] Occult Blood NOT DONE NEG [place] Slide 2 [facility] Slide 2 Date NOT DONE [facility] Occult Blood NOT DONE NEG [place] Slide 3 [facility] Slide 3 Date NOT DONE [facility] Specimen Anatomical Collection Method Collection Time Receive d Time (Source) Location / / Volume Laterality 08/01/2006 12:15 08/01/2006 PM CDT 12:17 PM CDT Parminder Wiseman MD LABORATORY Performing Organization Address City/[facility]/ZIP Code Phon e Number [facility] [address] [place] [address] [facility] BLOOD SMEAR, PERIPHERAL, INTERPRETATION, PHYSICIAN W/ WRITTEN REPORT (08/01/2006 12:15 PM CDT) [facility] Signature Blood Slide to be [place] Morphology reviewed by [facility] Smear Pathologist [facility] Specimen Anatomical Collection Method Collection Time Receive d Time (Source) Location / / Volume Laterality 08/01/2006 12:15 08/01/2006 PM CDT 12:17 PM CDT Parminder Wiseman MD LABORATORY Performing Organization Address City/State/ZIP Code Phon e Number M [facility] [address] [place], [place] [address] [facility] (ABNORMAL) RETICULOCYTE COUNT (08/01/2006 12:15 PM CDT) [facility] Time Signature % Retic 2.6 (H) 0.5 - 2.0 [place] % [facility] Absolute 50.4 25 - 95 [place] Retic 10e9/L [facility] Method Automated [employer] LAB Specimen Anatomical Collection Method Collection Time Receive d Time (Source) Location / / Volume Laterality 08/01/2006 12:15 08/01/2006 PM CDT 12:17 PM CDT Parminder Wiseman MD LABORATORY Performing Organization Address City/State/ZIP Code Phon e Number [facility] [address] [place], [place] [address] [facility] (ABNORMAL) IRON & TIBC (08/01/2006 12:15 PM CDT) athologist Signature Iron 119 35 - 180 [facility] ug/dL [facility] Iron Binding 242 240 - 430 [place] Cap ug/dL [facility] Iron Saturation 49 (H) 15 - 46 % [facility] LAB Specimen Anatomical Collection Method Collection Time Receive d Time (Source) Location / / Volume Laterality 08/01/2006 12:15 08/01/2006 PM CDT 12:17 PM CDT Parminder Wiseman MD LABORATORY Performing Organization Address City/State/ZIP Code Phon e Number [facility] [address], [place] [address] [facility] LAB (ABNORMAL) FERRITIN (08/01/2006 12:15 PM CDT) athologist Signature Ferritin 1671 (H) 20 - 300 [facility] ng/mL [place] [facility] Specimen Anatomical Collection Method Collection Time Receive d Time (Source) Location / / Volume Laterality 08/01/2006 12:15 08/01/2006 PM CDT 12:17 PM CDT Parminder Wiseman MD LABORATORY Performing Organization Address City/State/ZIP Code Phon e Number [facility] [address] [place] [address] [facility] BLOOD SMEAR, PERIPHERAL, INTERPRETATION, PHYSICIAN W/ WRITTEN REPORT (08/01/2006 12:00 AM CDT) Component Value Ref Test Analysis Performed At [facility] gist Range Method Time Signature Copath Report Patient Name: SARAH BETH BROWN MR#: [id number] Specimen #: [id number] Collected: 08/01/2006 Received: 08/02/2006 Reported: 08/02/2006 16:00 Ordering Phy(s): PARMINDER WISEMAN TEST(S): Morphology Exam ([facility]) FINAL DIAGNOSIS: Peripheral blood - Normochromic, normocytic severe anemia. COMMENT: Rule out chronic and/or acute blood loss; rule out iron defi ciency; rule out inflammatory process. Electronically signed out by: Raphael Shipley M.D. CLINICAL HISTORY: Anemia. PERIPHERAL BLOOD DATA: Patient Value ? (Reference Range >18y M) WBC ? 9.21 ? x10*9/L ? (4.0-11 .0 x 10*9/L) RBC ?1.97 ?x10*12/L ? (4.4-5.9 x10*12/L) Hemoglobin ?6.3 ?g/dL ?(13.3-17.7 g/dL) Hematocrit ?19.3 ?% ?(40.0-53.0 %) MCV ? 98.0 ? fL ?(78-100 fL) MCH ? 32.0 ? pg ?(26.5-35.0 pg) MCHC ?32. 6 ? g/dL ?(32.0-36.0 g/dL) RDW ? 15. 4 ?% ? (10.0- 15.0 %) Platelets ?413 ? x10*9/L ? (150-450 x10*9/L) Retic ? 2 .6 ?% ? (0.5-2.0 %) PERIPHERAL BLOOD MORPHOLOGY: ERYTHROCYTES: ??Normochromic, normocytic, severe anemia; the re is mild anisochromia and slight to mild anisocytosis; poikilocytosis is slight with rare elliptocytes and target cells; polychromasia appea rs to be in normal range (low for hemoglobin - suggest retic. count as b aseline); no circulating normoblasts seen; occasional fine basophilic sti ppling; no [place] bodies seen; rouleaux appears increased. PLATELETS: ??The platelets appear to be in high normal numbe rs and generally these are small to intermediate size with normal g ranulation. There are occasional hypogranular platelets. LEUKOCYTES: ??There are normal total numbers (high normal) w ith normal differential, but relative increase in monocytes. ??Rare juv enile neutrophils with slight left shift. ??The differential count is as follows: Differential ?? (100 cells): ? Reference Range ?(Adult) Neutrophils ? 62% ?(40-75) Lymphocytes ?24% ?(20-48) Monocytes ?11% ?(0-12) Eosinophils ? 3% ?(0-6) Basophils ? --% ?? (0-2) JKW/kalina 08-02-06 TESTING LAB LOCATION: [address] ??[id number] COLLECTION SITE: Client: ??[facility] Location: ??CRFP (R) Specimen (Source) Anatomical Collection Method Collection Time Re ceived Time Location / / Volume Laterality 08/01/2006 08/02/2006 8:56 AM CDT Parminder Wiseman MD LABORATORY Performing Organization Address City/State/ZIP Code Phon e Number [facility] documented in this encounter Visit Diagnoses Diagnosis Anemia, unspecified - Primary Dizziness and giddiness Blood in stool documented in this encounter Additional Health Concerns Infection Onset Date Last Indicated Resolved Time MRSA-Contact IsolationComment: 0 04/26/2021 11:03 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
--- OUTSIDE RECORDS SUMMARY | 2022-02-12 13:53 | XMS_ITS | Encounter Summary ---
:1960 Author Organization [facility] Address [address] [place] [address] Care Team Providers Name Role Phone Unavailable Primary Care Provider Unavailable Encounter Details Date Type Department Care Team Description 08/02/2006 Historic Notes INTERFACED REPORT Interface, Transcript MD valarie Social History Tobacco Use Types Packs/Day Years Used Date Smoking Tobacco: Never Alcohol Use Standard Drinks/Week Comments Yes 0 (1 standard drink = 0.6 oz pure alcoho l) socially approx 5 drinks/wk Sex Assigned at Date Recorded Not on file documented as of this encounter Progress Notes Interface, Cable Wirer - 07/12/2010 5:40 PM CDT General Information General Information <R> How to be addressed - Kayden <R> Spinning Mule Operator Needed - No Source of reliable information - Patient Patient Contact Information <R> tool design draftsperson to notify: - Selina Wells Sig other <R> Phone 1: - [phone] Cell Phone: - [phone] Advance Directive Advanced Health Care Directive Information <R> Do you have a Advance Health Care Directive? - No Can patient name a Surrogate Decision Maker? (Not legally binding) - Yes Surrogate Name: - Selina Wells Surrogate Home Phone Number: - [phone] <R> Would you like to receive information about Advanced Directives? - No Valuables Valuables Valuables - Yes Disposition of Valuables - [place] 283.00 Health and Illness History Health and Illness History <R> Reason for admission/chief complaint as stated by patient - GI Bleed Previous reaction to anesthesia Previous reaction to anesthesia - No Prosthetic Implants Prosthetic Implants - None Vascular Access Device Does the patient have a VAD (Vascular Access Device)? - No Allergies Allergy - Environment; Other Environment Allergy (See Description); Unknown; Active General Medication Information General Medication Information Medications brought to hospital - None Medication patch - No medication patch(es) used Substance Use Tobacco Use <R> Tobacco Use - None Caffeine Use <R> Caffeine Use - Yes Caffeine Type - Coffee Caffeine Amount - < 3 cups/day Alcohol Use <R> History of Alcohol Use - Yes Alcohol Frequency - Four or more times a week Alcohol Amount - 1 - 2 drinks Length of Alcohol Use - 07-31-06 Street/Recreational Drug Use <R> History of Street/Recreational Drug Use - No Transfusion History Transfusion History Blood Avoidance/Restrictions - No Previous blood transfusion - No Review of Systems Cardiac Cardiac Problems - Yes Cardiac Conditions/Symptoms - Hypertension Pulmonary Pulmonary Problems - No Peripheral Vascular Peripheral Vascular Problems - No Neuro-Muscular Neuro Muscular Problems - No ENT ENT Problems - No GI GI Problems - No Bowel Pattern Date of last bowel movement - Date of last BM, 08-02-06 Problems - No Skin Skin Problems - No Immune <R> Immune Problems - No <R> Immunizations Current - Immunizations current Endocrine <R> Endocrine Problems - No Mental Health <R> Mental Health Problems - Yes Cognitive Perceptual General Pain Information Preferred Pain Scale - Numerical 0-10 Acceptable Comfort Level - 0 is acceptable comfort level rating Chronic Pain History of Chronic Pain - No Sensory Deficits/Cognition <R> Alterations in Sensation - No <R> Vision Problems - No <R> Hearing Problems - No <R> Use of Sensory Assistive Devices - No <R> Reading Problems - No <R> Communication Problems - No <R> Changes in thought Process/Behavior - No Activity-Exercise/Self Care Functional Screen <R> Ambulation - 0 - Independent with ambulation <R> Transferring - 0 - Independent with transfers <R> Toileting - 0- Independent with toileting <R> Bathing - 0- Independent with bathing <R> Dressing - 0- Independent with dressing <R> Eating - 0- Independent with eating <R> Swallowing - none <R> Fall history within last six months - No history of falls <R> Which of the above functional risks had a recent onset or change? - None Nutrition/Metabolic Diet Information Diet - Regular Nutrition Risk Screen <R> Nutrition Risk Screen - No risk indicators present Perception of nutritional health - Good Sleep/Relaxation Sleep Pattern <R> Problems Sleeping - No Role Relationships Abuse Risk Screen <R> QUESTION TO PATIENT: Are you now or have you ever been in a relationship where you have been abused physically, emotionally or sexually? - No <R> NURSE OBSERVATION: Is there reasonable cause to believe the patient has been abused, assaulted, is self abusive, neglected or exploited? - No Coping-Stress Tolerance Coping-Stress <R> Have you had a recent major change/significant loss/stressor in your life - No Values/Beliefs/Spiritual Care Values/Beliefs/Spiritual Care F: Enedina: Does culture/spirituality/ christian play an important part in your life? - Yazdanism <R> Would you like pastoral care/clergy/sales support advisor notified? - Does not wish to have anyone contacted Mutuality/Individual Preferences Mutuality/Preferences <R> What information would help us give you more personalized care? - none <R> What if any limitations on visitors, TV or phone calls would you like - None Hannah Altamirano (RN) Author: - General Information, Advance Directive, Valuables, Health and Illness History, Allergies,General Medication Information, Substance Use, Transfusion History, Review of Systems, Cognitive Perceptual, Activity-Exercise/Self Care, Nutrition/Metabolic, Sleep/Relaxation, Role Relationships, Coping-Stress Tolerance, Values/Beliefs/Spiritual Care, Mutuality/Individual Preferences Entered: - General Information, Advance Directive, Valuables, Health and Illness History, Allergies, General Medication Information, Substance Use, Transfusion History, Review of Systems, Cognitive Perceptual, Activity- Exercise/Self Care, Nutrition/Metabolic, Sleep/Relaxation, Role Relationships, Coping-Stress Tolerance, Values/Beliefs/Spiritual Care, Mutuality/Individual Preferences documented in this encounter Plan of Treatment Not on filedocumented as of this encounter Visit Diagnoses Not on filedocumented in this encounter Additional Health Concerns Infection Onset Date Last Indicated Resolved Time MRSA-Contact IsolationComment: 0 04/26/2021 11:03 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
--- OUTSIDE RECORDS SUMMARY | 2022-02-12 13:53 | XMS_ITS | Encounter Summary ---
:1960 Author Organization [place] Address [address] [place] [address] Care Team Providers Name Role Phone Unavailable Primary Care Provider Unavailable Encounter Details Date Type Department Care Team Description 08/04/2006 Historic Notes INTERFACED REPORT Interface, Transcript MD valarie Social History Tobacco Use Types Packs/Day Years Used Date Smoking Tobacco: Never Alcohol Use Standard Drinks/Week Comments Yes 0 (1 standard drink = 0.6 oz pure alcoho l) socially approx 5 drinks/wk Sex Assigned at Date Recorded Not on file documented as of this encounter Progress Notes Interface, Ledger Poster - 07/12/2010 5:34 PM CDT Patient Status Patient Status Physical status - Stable (s/s of potential complications absent or manageable) Psychosocial status - Stable Discharge Planning Discharge From [facility] Patient Care Unit - MS3 PCU Phone Number - [phone] Discharge To - Home Phone number after discharge - [phone] Method of discharge - Wheel Chair Transportation - Private Discharge Information Discharge Information Valuables returned - Valuables returned, money in safe in business office Discharge information - Discharge instructions reviewed with pt/family/so; Prescriptions given Accompanied by - self Mode of Travel - Wheelchair Medications and Prescriptions Medications and Prescriptions Medications and Prescriptions - Prescriptions are needed Support Services Support Services Is home care recommended? - No Supplies sent/ordered - No Equipment sent/ordered - No Other Services arranged - No Special Care Needs and Instructions Diet Instructions - As instructed by customer service cashier-follow diet sheet Activity Instructions - as tolerated make sure to rest Report temp if greater than degrees F - 101 degrees F Signs or symptoms to call the physician - bloody stools, black stools, increased abdominal pain, emesis Follow Up Care Physician name - Dr. Welsh or Dr. Austin When to see physician - next week Signatures PAULO LOERA (RN) Author: - Patient Status, Discharge Planning, Discharge Information, Medications and Prescriptions,Support Services, Special Care Needs and Instructions, Follow Up Care Entered: - Patient Status, Discharge Planning, Discharge Information, Medications and Prescriptions, Support Services, Special Care Needs and Instructions, Follow Up Care documented in this encounter Plan of Treatment Not on filedocumented as of this encounter Visit Diagnoses Not on filedocumented in this encounter Additional Health Concerns Infection Onset Date Last Indicated Resolved Time MRSA-Contact IsolationComment: 0 04/26/2021 11:[address] DEPARTMENT DISPATCHER Infection 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
--- OUTSIDE RECORDS SUMMARY | 2022-02-12 13:53 | XMS_ITS | Encounter Summary ---
:1960 Author Organization [facility] Address [address] [place] [address] Care Team Providers Name Role Phone Unavailable Primary Care Provider Unavailable Reason for Visit Reason Comments Hospital F/U Encounter Details Date Type Department Care Team Description 08/10/2006 Office Visit [facility] Julius Welsh MD GASTROINTEST HEMORR NOS; Clinic [place] [facility] [address] MIXED HYPERLIPIDEMIA [address] [place] [id number] [phone] Social History Tobacco Use Types Packs/Day Years Used Date Smoking Tobacco: Never Alcohol Use Standard Drinks/Week Comments Yes 0 (1 standard drink = 0.6 oz pure alcoho l) socially approx 5 drinks/wk Sex Assigned at Date Recorded Not on file documented as of this encounter Last Filed Vital Signs Vital Sign Reading Time Taken Comments Blood Pressure 110/76 08/10/2006 1:15 PM CDT Pulse 72 08/10/2006 1:15 PM CDT Temperature 37.1 ??C (98.8 ??F) 08/10/2006 1:15 PM CDT Respiratory Rate 12 08/10/2006 1:15 PM CDT Oxygen Saturation - - Inhaled Oxygen Concentration - - Weight 77.1 kg (170 lb) 08/10/2006 1:15 PM CDT Height - - Body Mass Index 25.85 08/02/2006 4:15 PM CDT documented in this encounter Progress Notes Julius Welsh - 08/10/2006 1:52 PM CDT SUBJECTIVE: Kayden Brown 45 year old male presents for f/u after hospitalization for acute reanl failure and anemia from subacute GI bleed last week. He is much better. He is on the verge of gettinga new job. Histories Updated through 08.10.2006: Past Medical History Diagnosis Date ??? HYPERTENSION NOS ??? HYPERLIPIDEMIA NEC/NOS ??? ANEMIA NOS Past Surgical History Procedure Date ??? No history of surgery Family History Problem Relation ??? Family History Negative History Social History ??? Marital Status: N/A Spouse Name: N/A Number of Children: N/A ??? Years of Education: N/A Occupational History ??? Not on file. Social History Main Topics ??? Tobacco Use: Never ??? Alcohol Use: Yes socially approx 5 drinks/wk ??? Drug Use: No ??? Sexually Active: Not on file Other Topics Concern ??? Not on file Social History Narrative ??? No narrative on file Current outpatient prescriptions Medication Sig ??? MULTI-VITAMIN OR TABS 1 tablet daily ??? OMEPRAZOLE 40 MG OR CPDR 1 CAPSULE EVERY MORNING ??? IRON (FERROUS SULFATE) TABS 325 MG OR 1 TABLET PO BID ??? LIPITOR 20 MG OR TABS 1 TABLET DAILY Allergies as of 08/10/2006 - reviewed 08/10/2006 Allergen Reaction Noted ??? No known drug allergies 04/22/2003 ROS: C: NEGATIVE for fever, chills, change in weight,I: NEGATIVE for worrisome rashes, moles or lesions,E/M: NEGATIVE for ear, mouth and throat problems,R: NEGATIVE for significant cough or SOB,CV: NEGATIVEfor chest pain, palpitations or peripheral edema,GI: NEGATIVE for nausea, abdominal pain, heartburn,or change in bowel habits,: NEGATIVE for frequency, dysuria, or hematuria OBJECTIVE/EXAM: GENERAL APPEARANCE: healthy, alert and no distress HENT: ear canals and TM's normal and nose and mouth without ulcers or lesions NECK: no adenopathy, no asymmetry, masses, or scars and thyroid normal to palpation RESP: lungs clear to auscultation - no rales, rhonchi or wheezes CV: regular rates and rhythm, normal S1 S2, no S3 or S4 and no murmur, click or rub ABDOMEN: soft, nontender, without hepatosplenomegaly or masses and bowel sounds normal ASSESSMENT/PLAN: 1- GI bleed, nonacute s/p endocopy. Continue PPI forever. 2- ARF, resolved. 3- Hyperlipidemia. Continue lipitor. F/u in 1 month. documented in this encounter Nursing Notes 08/10/2006 1:15 PM CDT >> CAM ROSALES 08/10/2006 1:15 pm Patient presents with: Hospital F/U Initial BP 110/76 Pulse 72 Temp (Src) 98.8 (Oral) Resp 12 Wt 170 lbs (77.1kg) Estimated Bodymass index is 25.85 kg/(m^2) as calculated from: Height of 5' 8 (1.727 m) as of 08/02/06 Weight of 170 lbs (77.111 kg) as of this encounter BP completed using cuff size regular, right arm Cam Rosales LPN documented in this encounter Plan of Treatment Not on filedocumented as of this encounter Visit Diagnoses Diagnosis Hemorrhage of gastrointestinal tract, un specified Mixed hyperlipidemia documented in this encounter Additional Health Concerns Infection Onset Date Last Indicated Resolved Time MRSA-Contact IsolationComment: 0 04/26/2021 11:03 AM 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
--- OUTSIDE RECORDS SUMMARY | 2022-02-12 13:53 | XMS_ITS | Encounter Summary ---
:1960 Author Organization [facility] Address [address] [place] [address] Care Team Providers Name Role Phone Unavailable Primary Care Provider Unavailable Encounter Details Date Type Department Care Team Description 09/27/2006 Results Only [facility] Liudmila Austin [facility] Results MD Fina [facility] [address] [place], [place] [address] (Wo rk) Social History [...] Diagnosis Comme nts CHEST TWO VIEWS, Routine 09/27/2006 10:38 AM R esults for this FRONT/LAT CDT procedure are i n the results section. HC US Routine 09/27/2006 10:29 AM Results for this RETROPERITONEAL, CDT procedure a re in COMPLETE the results section. documented in this encounter Results CHEST X-RAY 2 VW (09/27/2006 10:38 AM CDT) Anatomical Region Laterality Modality Other Specimen (Source) Anatomical Collection Method Collection Time Re ceived Time Location / / Volume Laterality 09/27/2006 10:38 AM CDT Impressions 09/27/2006 10:46 AM CDT EXAM: ??CHEST TWO VIEW* HISTORY: Fever FINDINGS: Negative. Liudmila Austin MD GENERAL IMAGING SONO RETROPERITONEAL (09/27/2006 10:29 AM CDT) Anatomical Region Laterality Modality Other Specimen (Source) Anatomical Collection Method Collection Time Re ceived Time Location / / Volume Laterality 09/27/2006 10:29 AM CDT Impressions 09/27/2006 10:38 AM CDT EXAM: ??US RETROPERITONEAL COMP HISTORY: ??acute renal insufficiency, ?? Renal, Evaluate kidneys for possible cause of renal insufficiency. FINDINGS: Right kidney: Negative. No stones, jam s or hydronephrosis. Left Kidney: Negative. No stones, masses or hydronephrosis. Urinary bladder: Negative. Liudmila Austin MD SPECIAL IMAGING STUDIES documented in this encounter Visit Diagnoses Not on filedocumented in this encounter Additional Health Concerns Infection Onset Date Last Indicated Resolved Time MRSA-Contact IsolationComment: 0 04/26/2021 11:03 AM EVENTS INTERN Infection 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
--- OUTSIDE RECORDS SUMMARY | 2022-02-12 13:53 | XMS_ITS | Encounter Summary ---
:1960 Author Organization [place] Address [address] [place] [address] Care Team Providers Name Role Phone Unavailable Primary Care Provider Unavailable Reason for Visit Reason Comments Trauma eye injury Encounter Details Date Type Department Care Team Description 04/22/2003 Office Visit [facility] Tristan EganUS ION FACE/SCALP/NCK; Clinic [place] MD Navin [facility] [address] [phone] Social History Tobacco Use Types Packs/Day Years Used Date Smoking Tobacco: Never Assessed Sex Assigned at Date Recorded Not on file documented as of this encounter Last Filed Vital Signs Vital Sign Reading Time Taken Comments Blood Pressure 120/78 04/22/2003 11:00 AM CERTIFIED PHARMACY TECH Pulse - - Temperature - - Respiratory Rate - - Oxygen Saturation - - Inhaled Oxygen Concentration - - Weight - - Height - - Body Mass Index - - documented in this encounter Progress Notes 04/22/2003 11:00 AM CERTIFIED PHARMACY TECH Puncture wound near eye with echymosis of lower lid but no discharge, fever or redness.Td given.Viki l cornea exam and vision. Recheck prn. documented in this encounter Nursing Notes 04/22/2003 11:00 AM CST >> CHELSEY SWARTZ 04/22/2003 11:35 am rt eye injury on Apr 20, 2003. Poked eye with a nail. Unsure of last Td. Chelsey Swartz LPN documented in this encounter Plan of Treatment Not on filedocumented as of this encounter Visit Diagnoses Diagnosis Contusion of face, scalp, and neck excep t eye(s) Abrasion or friction burn of other, mult iple, and unspecified sites, without mention of infection documented in this encounter Additional Health Concerns Infection Onset Date Last Indicated Resolved Time MRSA-Contact IsolationComment: 0 04/26/2021 11:03 AM CERTIFIED PHARMACY 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
--- OUTSIDE RECORDS SUMMARY | 2022-02-12 13:53 | XMS_ITS | Encounter Summary ---
:1960 Author Organization [facility] Address [address] [place] [address] Care Team Providers Name Role Phone Unavailable Primary Care Provider Unavailable Reason for Visit Reason Comments Dizziness x 1 wk, diarrhea,cough, N&V, weakness, Encounter Details Date Type Department Care Team Description 07/31/2006 Office Visit [facility] Julius Welsh MD HYPERTENSION NOS; Clinic [place] [address] MIXED HYPERLIPIDEMIA; [address] [facility] [place] DIZZINESS [place] [id number] Social History Tobacco Use Types Packs/Day Years Used Date Smoking Tobacco: Never Alcohol Use Standard Drinks/Week Comments Yes 0 (1 standard drink = 0.6 oz pure alcoho l) socially approx 5 drinks/wk Sex Assigned at Date Recorded Not on file documented as of this encounter Last Filed Vital Signs Vital Sign Reading Time Taken Comments Blood Pressure 84/50 07/31/2006 3:45 PM CDT Pulse - - Temperature 36.9 ??C (98.4 ??F) 07/31/2006 3:45 PM CDT Respiratory Rate - - Oxygen Saturation - - Inhaled Oxygen Concentration - - Weight 74.4 kg (164 lb) 07/31/2006 3:45 PM CDT Height 172.7 cm (5' 8) 07/31/2006 3:45 PM CDT Body Mass Index 24.94 07/31/2006 3:45 PM CDT documented in this encounter Progress Notes Julius Welsh - 07/31/2006 4:31 PM CDT SUBJECTIVE: Kayden Brown 45 year old male presents for c/o dizziness x 2 weeks. H eh ahs had somediarrhea over a week ago. He denies balck, tarry stool. Histories Updated through 07.31.2006: Past Medical History Diagnosis Date ??? HYPERTENSION NOS ??? HYPERLIPIDEMIA NEC/NOS No past surgical history on file. No family history on file History Social History ??? Marital Status: N/A [...] file Current outpatient prescriptions Medication Sig ??? LISINOPRIL 20 MG OR TABS 1 TABLET DAILY ??? LIPITOR 20 MG OR TABS 1 TABLET DAILY ??? ZESTRIL 20 MG OR TABS 1 TAB PO QD (Once per day) Allergies as of 07/31/2006 - reviewed 07/31/2006 Allergen Reaction Noted ??? No known drug [...] S4 and no murmur, click or rub NEURO: Normal strength and tone, mentation intact and speech normal ASSESSMENT/PLAN: 1- Dizziness. Labs per HS orders. Pt told to halt the lisinopril. F/U in 3 days for reevaluation. documented in this encounter Nursing Notes 07/31/2006 3:45 PM CDT >> NA ALLRED 07/31/2006 4:06 pm Patient presents with: Dizziness - x 1 wk, diarrhea,cough, N&V, weakness, Initial BP 84/50 Temp (Src) 98.4 (Oral) Ht 5' 8 (1.73m) Wt 164 lbs (74.4kg) Body mass index is 24.94 kg/(m^2).. BP completed using cuff size regular Na Allred CMA documented in this encounter Plan of Treatment Not on filedocumented as of this encounter Procedures Procedure Name Priority Date/Time Associated Diagnosis Comme nts HCL CRP, CARDIAC Routine 07/31/2006 4:22 PM Hypertension Nos Results for this RISK CDT Mixed Hyperlipid emia procedure are in Dizziness And the results Giddiness section. CL AFF CBC WITH Routine 07/31/2006 4:22 PM Hypertension Nos Results for this PLATELETS, DIFF CDT Mixed Hyperlipid emia procedure are in Dizziness And the results Giddiness section. HCL BASIC METABOLIC Routine 07/31/2006 4:22 PM Hypertens ion Nos Results for this PANEL CDT Mixed Hyperlipid emia procedure are in Dizziness And the results Giddiness section. HCL TSH W/FREE T4 Routine 07/31/2006 4:22 PM Hypertensio n Nos Results for this REFLEX CDT Mixed Hyperlipid emia procedure are in Dizziness And the results Giddiness section. HCL GLYCATED Routine 07/31/2006 4:22 PM Hypertension Nos Results for this HEMOGLOBIN CDT Mixed Hyperlipid emia procedure are in Dizziness And the results Giddiness section. HCL ALT Routine 07/31/2006 4:22 PM Hypertension Nos Results for this CDT Mixed Hyperlipid emia procedure are in Dizziness And the results Giddiness section. HCL AST Routine 07/31/2006 4:22 PM Hypertension Nos Results for this CDT Mixed Hyperlipid emia procedure are in Dizziness And the results Giddiness section. CL AFF A.M.A. LIPID Routine 07/31/2006 4:22 PM Hypertens ion Nos Results for this PANEL CDT Mixed Hyperlipid emia procedure are in Dizziness And the results Giddiness section. documented in this encounter Results CRP, CARDIAC RISK (07/31/2006 4:22 PM CDT) athologist Signature CRP Cardiac 10.6 mg/L [facility] LABS Comment: Reference Values: Low Risk: ? <1.0 mg/L Average Risk: ? 1.0-3.0 mg/L High Risk: ?>3.0 mg/L Acute Inflammation: >8.0 mg/L Specimen Anatomical Collection Method Collection Time Receive d Time (Source) Location / / Volume Laterality 07/31/2006 4:22 PM 200 7 4:24 CDT PM CDT Julius Welsh MD LABORATORY Performing Organization Address City/State/[facility] Code Phon e Number [facility] [address] [place], [place] [id number] [place] [address] LABS (ABNORMAL) CBC WITH PLATELETS, DIFF (07/31/2006 4:22 PM CDT) athologist Signature WBC 6.8 4.0 - 11.0 [place] 10e9/L [facility] RBC Count 2.06 (L) 4.4 - 5.9 [facility] 10e12/L [facility] Comment: Results confirmed by repeat patricia t Hemoglobin 6.5 (LL) 13.3 - 17.7 g/dL [facility] LAB Comment: Results confirmed by repeat patricia t Hematocrit 20.1 (L) 40.0 - 53.0 % [facility] LAB MCV 98 78 - [address] [facility] LAB MCH 31.6 26.5 - 33.0 pg [facility] LAB MCHC 32.3 31.5 - 36.5 g/dL [facility] LAB RDW 15.3 (H) 10.0 - 15.0 % [facility] Platelet Count 352 150 - 450 10e9/L [facility] LAB Diff Method Automated Method [facility] LAB % Lymphocytes 30 20 - 48 % [facility] LAB % Monocytes 8 0 - 12 % [facility] LAB % Granulocytes 62 40 - 75 % [facility] LAB Absolute Lymphocytes 2.1 0.8 - 5.3 10e9/L [facility] Absolute Monocytes 0.5 0.0 - 1.3 10e9/L [facility] Absolute Granulocytes 4.2 1.6 - 8.3 10e9/L F [facility] LAB Specimen Anatomical Collection Method Collection Time Receive d Time (Source) Location / / Volume Laterality 07/31/2006 4:22 PM 7 4:24 CDT PM CDT Julius Welsh MD LABORATORY Performing Organization Address City/State/ZIP Code Phon e Number [facility] [address] [place] [address] [facility] LAB TSH W/FREE T4 REFLEX (07/31/2006 4:22 PM CDT) athologist Signature TSH 3.66 0.4 - 5.0 [facility] mU/L [facility] Specimen Anatomical Collection Method Collection Time Receive d Time (Source) Location / / Volume Laterality 07/31/2006 4:22 PM 7 4:24 CDT PM CDT Julius Welsh MD LABORATORY Performing Organization Address City/[facility]/ZIP Code Phon e Number [facility] [address] [place] [phone] [facility] LAB (ABNORMAL) HEMOGLOBIN A1C (07/31/2006 4:22 PM CDT) athologist Signature Hemoglobin A1C 6.8 (H) 4.3 - 6.0 [place] % [facility] LAB Specimen Anatomical Collection Method Collection Time Receive d Time (Source) Location / / Volume Laterality 07/31/2006 4:22 PM 7 4:24 CDT PM CDT Julius Welsh MD LABORATORY Performing Organization Address City/[facility]/ZIP Code Phon e Number [facility] [address] [place] [phone] [facility] LAB (ABNORMAL) AST (07/31/2006 4:22 PM CDT) P athologist Signature AST 149 (H) 0 - 55 U/L [facility] LAB Specimen Anatomical Collection Method Collection Time Receive d Time (Source) Location / / Volume Laterality 07/31/2006 4:22 PM 7 4:24 CDT PM CDT Julius Welsh MD LABORATORY Performing Organization Address City/[facility]/ZIP Code Phon e Number [facility] [address] [facility] [place] [address] [phone] [facility] LAB (ABNORMAL) A.M.A. LIPID PANEL (07/31/2006 4:22 PM CDT) athologist Signature Cholesterol 267 (H) 0 - 200 [facility] mg/dL CLINIC LAB Comment: LDL Cholesterol is the primary guide to therapy: LDL-cholesterol goal in high risk patients is <100 mg/dL and in very high risk patients is <70 mg/dL. The NCEP recommends further evaluation of: patients with cholesterol <200 mg/dL if additional risk factors are present, cholesterol >240 mg/dL, triglycerides >150 mg/dL, or HDL <40 mg/dL. Triglycerides 492 (H) 0 - 150 mg/dL [facility] LAB Comment: Results confirmed by repeat patricia t HDL Cholesterol 16 (L) 40 - 110 mg/dL [facility] LDL Cholesterol Cannot estimate LDL 0 - 129 mg/dL [facility] Calculated when triglyceride CLINIC LAB exceeds 400 mg/dL VLDL-Cholesterol Cannot estimate VLDL 0 - 30 mg/dL [facility] when triglyceride CLINIC LAB exceeds 400 mg/dL. Cholesterol/HDL Ratio 16.4 (H) 0.0 - 5.0 [facility] LAB Specimen Anatomical Collection Method Collection Time Receive d Time (Source) Location / / Volume Laterality 07/31/2006 4:22 PM 7 4:24 CDT PM CDT Julius Welsh MD LABORATORY Performing Organization Address City/[facility] Code Phon e Number [facility] [address] [facility] [place] [address] [phone] [facility] ALANINE AMINO (ALT) (SGPT) (07/31/2006 4:22 PM CDT) athologist Signature ALT 60 0 - 70 U/L [facility] Specimen Anatomical Collection Method Collection Time Receive d Time (Source) Location / / Volume Laterality 07/31/2006 4:22 PM 7 4:24 CDT PM CDT Julius Welsh MD LABORATORY Performing Organization Address [facility]/ZIP Code Phon e Number [facility] [address] [facility] [place] [address] [phone] [facility] (ABNORMAL) A.M.A. BASIC METABOLIC PANEL (07/31/2006 4:22 PM CDT) athologist Signature Sodium 132 (L) 133 - 144 [facility] mmol/L [facility] Potassium 3.8 3.4 - 5.3 [place] mmol/L CLINIC LAB Chloride 88 (L) 94 - 109 [place] mmol/L [facility]IC LAB Carbon Dioxide 26 20 - 32 [place] mmol/L [facility] Anion Gap 18 (H) 6 - 17 [facility] mmol/L [facility] Glucose 114 (H) 60 - 110 [facility] mg/dL [facility] Urea Nitrogen 79 (H) 5 - 24 [facility] mg/dL [facility] LAB Comment: Results confirmed by repeat patricia t Creatinine 3.20 (H) 0.80 - 1.50 mg/dL [facility] [place] [facility] GFR Estimate 23 (L) >60 mL/min/1.7m2 [place] [facility] GFR Estimate If Black 27 (L) >60 mL/min/1.7m2 F [facility] Calcium 8.2 (L) 8.5 - 10.4 mg/dL [facility] Specimen Anatomical Collection Method Collection Time Receive d Time (Source) Location / / Volume Laterality 07/31/2006 4:22 PM 7 4:24 CDT PM CDT Julius Welsh MD LABORATORY Performing Organization Address City/[facility]/ZIP Code Phon e Number [address] [place] [address] [phone] [facility] documented in this encounter Visit Diagnoses Diagnosis Unspecified essential hypertension Mixed hyperlipidemia Dizziness and giddiness documented in this encounter Additional Health Concerns Infection Onset Date Last Indicated Resolved Time MRSA-Contact IsolationComment: 0 04/26/2021 11:03 AM 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
--- OUTSIDE RECORDS SUMMARY | 2022-02-12 13:53 | XMS_ITS | Encounter Summary ---
:1960 Author Organization [place] Address [address] [place] [address] Care Team Providers Name Role Phone Unavailable Primary Care Provider Unavailable Encounter Details Date Type Department Care Team Description 08/03/2006 GI Procedure [facility] Julius Welsh MD None Endoscopy [address] Alejandrina [address] [place] [address] [place] [address] [phone] Social History Tobacco Use Types Packs/Day Years [...] Name Priority Date/Time Associated Diagnosis Comme nts UPPER GI ENDOSCOPY Routine 08/03/2006 2:35 PM Res ults for this CDT procedure are i n the results section. COLONOSCOPY Routine 08/03/2006 1:45 PM Results f or this CDT procedure are i n the results section. documented in this encounter Results UPPER GI ENDOSCOPY (08/03/2006 2:35 PM CDT) Component Value Ref Test Analysis Performed At [facility] Method Time Signature Upper GI Endoscopy RADIOLOGY Endoscopy RESULTS Patient Name: Kayden Brown ? Gender: M ? Procedure Date: 08/03/2006 2: 35 PM ? Date of : 1960 ?Age: 45 ? Admit Type: Inpatient ? Attending MD: Isaak Bustillos ? Procedure: ?Upper GI endoscopy Indications: ?Iron deficiency anemia Providers: ?Isaak Bustillos MD Referring MD: ?? Julius Welsh MD Medicines: ?Midazolam 2 mg IV Complications: ??No immediate complications Procedure: ?- A History and Physical has been perfo rmed, and patient ?medi cation allergies have been reviewed. The patient The ?risk s and benefits of the procedure and the sedation options ?and risks were discussed with the patient. All questions were ?answered and informed consent was obtained. Patient ?iden tification and proposed procedure were verified prior to ?the procedure by the physician in the endoscopy suite. Mental ?Stat us Examination: normal. Respiratory Examination: clear to ?ausc ultation. CV Examination: normal. ASA Grade Assessment: ?P2 A patient with mild systemic disease. After reviewing the ?risk s and benefits, the patient was deemed in satisfactory ?cond ition to undergo the procedure. The anesthesia plan was ?to u se moderate sedation / analgesia (conscious sedation). ?Imme diately prior to administration of medications, the ?alma ent was re-assessed for adequacy to receive sedatives. ?The heart rate, respiratory rate, oxygen saturations, blood ?pres sure, adequacy of pulmonary ventilation, and response to ?care were monitored throughout the procedure. The physical ?stat us of the patient was re-assessed after the procedure. ?Afte r obtaining informed consent, the endoscope was passed ?unde r direct vision. Throughout the procedure, the patient's ?bloo d pressure, pulse, and oxygen saturations were monitored ?cont inuously. The GIF-Q-180 was introduced through the mouth, ?and advanced to the third part of the duodenum. Small bowel ?ente roscopy was deemed necessary. The upper GI endoscopy was ?acco mplished without difficulty. The patient tolerated the ?procedure well. ? Findings: ? A less than one cm benign-appearing, intr insic mild stenosis was found ? thirty-six cm from the incisors and was t raversed. Flores's esophagus ? extended from the upper extent of the gastric folds which were at 40 cm ? from the incisors to the Z-line which was at 36 cm from the incisors. No ? visible abnormalities. Biopsies were taken with a col d forceps for ? histology. A few localized, small non bleeding erosions were found in ? the gastric antrum. There were no stigmata of recent bleeding. Biopsies ? were taken with a col d forceps for histology. A single localized erosion ? with no bleeding was found in the duodenal bulb. Bi opsies were taken ? with a cold forceps for histology. ? Impression: ? - Benign-appearing esophageal stricture. 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 ?Biopsied. ?- Non-bleeding erosive gastropathy. ?- Erosive duodenopathy. Recommendation: - Use a proton pump inhibitor indefinitely. ? Vicki Bustillos M.D. Isaak Bustillos MD Signed Date: 08/03/2006 3:03 PM Number of Addenda: 0 I was physically present for the entire viewing portion of t he exam. Note generated on 08/03/2006 2:33 PM Upper GI RADIOLOGY Endoscopy RESULTS Specimen (Source) Anatomical Collection Method Collection Time Re ceived Time Location / / Volume Laterality 08/03/2006 2:35 PM CDT Julius Welsh MD PROCEDURES Performing Organization Address City/State/ZIP Code Phon e Number RADIOLOGY RESULTS COLONOSCOPY (08/03/2006 1:45 PM CDT) [facility] gist Method Time Signature COLONOSCOPY Endoscopy RADIOLOGY RESULTS Patient Name: Kayden Manzojatinder ? Gender: M ? Procedure Date: 08/03/2006 1: 45 PM ? Date of : 1960 ?Age: 45 ? Admit Type: Inpatient ? Attending MD: Isaak Bustillos ? Procedure: ?Colonoscopy Indications: ?Iron deficiency anemia Providers: ?Isaak Bustillos MD Referring MD: ?? Julius Welsh MD Medicines: ?Midazolam 2 mg IV, Fentanyl 1 00 mcg IV, Atropine 0.6 mg IV Complications: ??No immediate complications Procedure: ?- A History and Physical has been perfo rmed, and patient ?medi cation allergies have been reviewed. The patient The ?risk s and benefits of the procedure and the sedation options ?and risks were discussed with the patient. All questions were ?answered and informed consent was obtained. Patient ?iden tification and proposed procedure were verified prior to ?the procedure by the physician in the endoscopy suite. Mental ?Stat us Examination: normal. Respiratory Examination: clear to ?ausc ultation. CV Examination: normal. ASA Grade Assessment: ?P2 A patient with mild systemic disease. After reviewing the ?risk s and benefits, the patient was deemed in satisfactory ?cond ition to undergo the procedure. The anesthesia plan was ?to u se moderate sedation / analgesia (conscious sedation). ?Imme diately prior to administration of medications, the ?alma ent was re-assessed for adequacy to receive sedatives. ?The heart rate, respiratory rate, oxygen saturations, blood ?pres sure, adequacy of pulmonary ventilation, and response to ?care were monitored throughout the procedure. The physical ?stat us of the patient was re-assessed after the procedure. ?Afte r obtaining informed consent, the colonoscope was passed ?unde r direct vision. Throughout the procedure, the patient's ?bloo d pressure, pulse, and oxygen saturations were monitored ?cont inuously. The [id number] was introduced through ?the anus and advanced to the cecum, identified by appendiceal ?orif ice & IC valve. The colonoscopy was accomplished without ?diff iculty. The patient tolerated the procedure well. The ?quality of the prep was good. ? Findings: ? A Localized area of hemmorhagic erythematous mucosa was found in the ? cecum. This is not associated with any lesionThe exam was otherwise ? without abnormality. ? Impression: ? - Erythematous mucosa in the cecum. ?- The examination was otherwise norm al. Recommendation: - Repeat colonoscopy in 10 years for surveil rebeca. ?- Perform upper GI endoscopy today. ? Vicki Bustillos M.D. Isaak Bustillos MD Signed Date: 08/03/2006 2:57 PM Number of Addenda: 0 I was physically present for the entire viewing portion of t he exam. 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
--- OUTSIDE RECORDS SUMMARY | 2022-02-12 13:53 | XMS_ITS | Encounter Summary ---
:1960 Author Organization [place] Address [address] [place] [address] Care Team Providers Name Role Phone No Ref-Primary, Physician Primary Care Provider [phone] Juan Farias MD Unavailable Edilia Trejo APRN RECORDS ANALYSIS MANAGER Unavailable Glendy vailable Juan Farias MD Unavailable Denise Connell-C Unavailable [phone] Edilia Trejo APRN RECORDS ANALYSIS MANAGER Unavailable Glendy vailable Denise Connell-C Unavailable [phone] Juan Farias MD Primary Care Provider Dana Barry PA-C Unavailable [phone] Encounter Details Date Type Department Care Team Description 08/19/2003 Office Visit-[facility] Heart Unknown, Iva lockett MD [address] [address] Social History Tobacco Use Types Packs/Day Years Used Date Smoking Tobacco: Never Assessed Sex Assigned at Date Recorded Not on file documented as of this encounter Progress Notes Unknown, DoctorMD - 08/21/2003 2:20 PM CDT Progress Note Created by: Juan Farias M.D. DATE: 08/19/2003 SARAH BETH BROWN DATE OF : 1960 AGE: [age] years old Referring Physician: JEROME MORENO Referring Clinic: [facility] CLIN CURRENT DIAGNOSES 1. - Hypertension, benign, 401.1 ALLERGIES NKA MEDICATIONS 1. Lisinopril 20 Mg, 1 p.o. q.d. 2. Vitamin and Mineral Supplement Multiple Vitamins with Minerals, 1 p.o. q.d. CHIEF COMPLAINTS F/u hp HISTORY OF PRESENT ILLNESS I had the opportunity to see Mr. Sarah Beth Brown in cardiology clinic today for reevaluation of cardiac risk factors including hypertension and dyslipidemia. As you may recall, Mr. Brown is a 42-year-old gentleman who has had well controlled hypertension on lisinopril 20 mg per day. Last year, he completed a fasting cholesterol panel for screening purposes and was found to have significant elevation in his LDL. His total cholesterol was 297 with LDL of 183, HDL of 92, and triglycerides of 108. We unfortunately were not able to communicate with him about those results at that time and he was not started on any statin therapy. He fortunately is not having any concerning cardiac symptoms at this time. He regularly checks his blood pressure and finds it to be well controlled in the range of 120/70 att grocery store. His examination is normal today. His blood pressure is 126/72, his heart rate is 80 beats per minute, and his weight is 181 pounds. His lungs are clear. His heart rhythm is regular. PAST HISTORY Past Medical Illnesses: hypertension Infectious Diseases: usual childhood illnesses of mumps, measles and chickenpox Surgical Procedures: hernia repair Cardiology Procedures-Noninvasive: =mild LVH at rest, stress echocardiogram December 1999 FAMILY HISTORY: Father - hypertension; Mother - alive and well; Brother 1 - alive and well; Brother 2 - alive and well; Sister 1 - alive and well; CARDIAC RISK FACTORS Tobacco Abuse: negative; Family History of Heart Disease: negative; Hyperlipidemia: negative; Hypertension: controlled by lifestyle, controlled by medication, positive; Diabetes Mellitus: negative; Prior History of Heart Disease: negative; Obesity:BMI25 (Over weight); Sedentary Life Style:negative; Age:negative SOCIAL HISTORY Alcohol Use - drinks occasionally 1-2 per day; Smoking - denies tobacco use; Diet - caffeine use-rare and regular diet without modifications; Lifestyle - single; Exercise - no regular exercise; Seat Belt Use - always; 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 EYES denies diplopia, history of glaucoma or visual field defects. EARS, NOSE, THROAT, MOUTH denies any hearing loss, epistaxis, hoarseness or difficulty speaking. RESPIRATORY cough CARDIOVASCULAR negative for palpitations, chest pain, orthopnea, PND, peripheral edema, syncope or claudication. ABDOMINAL denies change in bowel habits, dyspepsia, ulcer disease, hematochezia or melena. GENITOURINARY-MALE denies dysuria, denies impotence MUSCULOSKELETAL denies any history of arthritic symptoms or back problems. NEUROLOGICAL denies any history of recurrent headaches, strokes, TIA, or seizure disorder. PSYCHIATRIC denies any history of depression, substance abuse or change in cognitive functions. ENDOCRINE denies any history of hyperlipidemia, thyroid disease or diabetes mellitus. HEMATOLOGICAL/IMMUNOLOGIC hayfever PHYSICAL EXAMINATION VITAL SIGNS: Blood Pressure: 130/90 Sitting, Right arm, regular cuff 126/72 Retaken by Pulse- 80.00/min. Weight- 181.00 lbs. Height- 66.00 Temperature- .00 CONSTITUTIONAL cooperative, alert and oriented,well [...] oriented to time, person and place. MEDICATIONS UPDATED TODAY: Zestril 20 mg, 1 p.o. q.d. MEDICATION STOPPED TODAY: Zocor 40 mg IMPRESSIONS/PLAN Mr. Sarah Beth Brown is a 42-year-old gentleman with hypertension and dyslipidemia. He is fasting todayso we will recheck his cholesterol panel. I have given him information on a cholesterol-lowering diet and he will try to do his best to follow this. I expect that his LDL will still be significantly elevated and he will probably be a good candidate for statin therapy. I will anticipate starting him onZocor 40 mg per day should his LDL be above the 140 or 150 range. Certainly, his goal is 130, and I would hope that if it is less than 140 to 150, we can give him some guidance on diet therapy and see if he can control it that way. I will see him again next year. TODAYS ORDERS 1. Lipid profile/ALT Today 2. Return Visit 1 year Juan Farias M.D. documented in this encounter Plan of Treatment Not on filedocumented as of this encounter Visit Diagnoses Not on filedocumented in this encounter Additional Health Concerns Infection Onset Date Last Indicated Resolved Time MRSA-Contact IsolationComment: 0 04/26/2021 11:03 AM DIRECTOR OF MATERNITY SERVICES Infection erroneous MRSA 05/13/2021 05/13/2021 Rule Out C-difficile 12/06/2021 12/06/2021 12/07/2021 8:46 AM CDT documented as of this encounter Care Teams Field Services Director Relationship Specialty Start Date End Date No Ref-Primary, PCP - General 07/03/14 12/03/21 Physician Juan Farias MD PCP - General Cardiovascular Disease 12/04/[address] [place] [id number] Juan Farias MD Assigned Heart and 02/14/20 10/03/[address] Vascular Provider [address] [place] [id number] Maya, Assigned Heart and 10/04/20 Edilia Chapman APRN Vascular Provider RECORDS ANALYSIS MANAGER NO INFO AVAILABLE 02/10/2022 Juan Farias MD Assigned Heart and 04/04/21 07/31/[address] Vascular Provider [address] [place] [address] Denise Connell Physician Psychotherapist Cardiovascular Disease 08/12/21 MARIETTA Watson [address] [place] [place] [address] Maya, Assigned Heart and 08/01/21 2 Edilia Chapman APRN Vascular Provider RECORDS ANALYSIS MANAGER NO INFO AVAILABLE 02/10/2022 Denise Connell Assigned Heart and 08/22/21 01/14/22 MARIETTA Watson Vascular Provider [address] [place] [id number] Dana Barry Assigned Heart and 01/15/22 MARIETTA Teague Vascular Provider [address] [place] [id number] documented as of this encounter
--- OUTSIDE RECORDS SUMMARY | 2022-02-12 13:53 | XMS_ITS | Encounter Summary ---
:1960 Author Organization [place] Address [address] [place] [address] Care Team Providers Name Role Phone Unavailable Primary Care Provider Unavailable Encounter Details Date Type Department Care Team Description 09/27/2006 Emergency room [facility] [address] [place] [address] Social History Tobacco Use Types Packs/Day Years Used Date Smoking Tobacco: Never Alcohol Use Standard Drinks/Week Comments Yes 0 (1 standard drink = 0.6 oz pure alcoho l) socially approx 5 drinks/wk Sex Assigned at Date Recorded Not on file documented as of this encounter Progress Notes Interface, Quality Analyst - 09/30/2006 8:16 AM CDT FINAL CHIEF COMPLAINT: My feet feel like they are asleep. HISTORY OF PRESENT ILLNESS: This is a 45-year-old male who presents with a cold feeling in his lower extremities and feeling like his feet are asleep. He states that it has become more prominent up tohis knee area. This has been going on for approximately a month. He feels like it is slowly been worse. He denies weakness, fever, sore throat or headache. He has a bit of a cough, no shortness of breath, no chest or back pain, no abdominal pain. He has had some nausea and vomiting, he has thrown upmaybe once per day over the last 4-5 days. He has also had diarrhea over that period of time, no black or bloody stools, no rash or itching. He last vomited last night. He does drink two glasses of whiskey a day. He was recently hospitalized for a gastrointestinal bleed from gastric and duodenal erosive pathology. REVIEW OF SYSTEMS: Ten-point review of systems is negative except as noted in HPI. PAST MEDICAL HISTORY: Significant for hypertension, GI bleed requiring transfusion and hospitalization, GI bleed secondary to duodenal and gastric pathology. MEDICATIONS: Omeprazole. ALLERGIES: None. SOCIAL HISTORY: He lives with his significant other and drinks 2 glasses of whiskey a night. PHYSICAL EXAMINATION: VITAL SIGNS: Blood pressure 136/85, pulse 122, respirations 20, temperature 97.4 and O2 sat 99%. Recheck on his heart rate was 82 with an O2 sat of 99%. GENERAL: He is awake, alert, nontoxic male sitting upright. HEENT: Sclerae nonicteric. He has fair eye contact. Mucous membranes are dry. His oropharynx is dry. NECK: Supple. LUNGS: Clear. HEART: Regular rate and rhythm. ABDOMEN: Soft and nondistended. EXTREMITIES: Without cyanosis or edema. SKIN: Without petechiae or rash. NEUROLOGIC: He is awake and alert. No focal deficits. He has no slurred speech. LABORATORY AND RADIOGRAPHIC EXAMINATION: His creatinine is 2.28, BUN is 16, bicarbonate is 26, glucose 86. CBC is normal. Most recent creatinine is 1.6. EMERGENCY DEPARTMENT COURSE: The patient was given 2 liters normal saline IV fluid bolus over 60 minutes. He tells me that he stopped drinking for about 2 weeks after his most recent hospitalization and did not have any problems with withdrawal symptoms. It sounds like he has had some type of vomiting, diarrhea that has led to dehydration and possibly this acute renal failure. I think that he could benefit from further IV rehydration in the hospital and correction of his fluid losses and further kidney workup if his creatinine does not improve. We will have him admitted to a general medical bed. PROVISIONAL DIAGNOSES: 1. Acute renal failure. 2. Dehydration, status post I IV rehydration. Electronically signed on 09/30/2006 08:15 by THOMAS REICH MD MT: [id number] Name: ELIJAH BROWN Account: [id number] : 1960 Visit Date: 09/27/2006 Document: [id number] cc: Tristan Ferrera MD documented in this encounter Plan of Treatment Not on filedocumented as of this encounter Visit Diagnoses Not on filedocumented in this encounter Additional Health Concerns Infection Onset Date Last Indicated Resolved Time MRSA-Contact IsolationComment: 0 04/26/2021 11:03 AM LENS ASSORTER Infection 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
--- OUTSIDE RECORDS SUMMARY | 2022-02-12 13:53 | XMS_ITS | Encounter Summary ---
:1960 Author Organization [facility] Address [address] [place] [address] Care Team Providers Name Role Phone No Ref-Primary, Physician Primary Care Provider [phone] Juan Farias MD Unavailable Edilia Trejo APRN PROVIDER RELATIONS MANAGER Unavailable Glendy vailable Juan Farias MD Unavailable Denise Connell-C Unavailable [phone] Edilia Trejo APRN PROVIDER RELATIONS MANAGER Unavailable Glendy vailable Denise Connell-C Unavailable [phone] Juan Farias MD Primary Care Provider Dana Barry PA-C Unavailable [phone] Encounter Details Date Type Department Care Team Description 08/19/2004 Office Visit-[facility] Heart Unknown, Iva lockett MD [address] [address] Social History Tobacco Use Types Packs/Day Years Used Date Smoking Tobacco: Never Assessed Sex Assigned at Date Recorded Not on file documented as of this encounter Progress Notes Unknown, MD Estella - 08/26/2004 5:34 PM CDT Progress Note Created by: Juan Farias M.D. DATE: 08/19/2004 SARAH BETH BROWN DATE OF : 1960 AGE: [age] years old Referring Physician: JEROME MORENO Referring Clinic: [facility] CURRENT DIAGNOSES 1. - Hypercholesterolemia, 272.0 2. - Hypertension, benign, 401.1 ALLERGIES NKA MEDICATIONS (including any changes made today) 1. Calcium 600 mg, 1 p.o. b.i.d. 2. Lisinopril 20 Mg, 1 p.o. q.d. 3. Vitamin and Mineral Supplement Multiple Vitamins with Minerals, 1 p.o. q.d. CHIEF COMPLAINTS Followup of - Hypertension, benign HISTORY OF PRESENT ILLNESS I had the opportunity to see Mr. Sarah Beth Brown in Cardiology Clinic today for re-evaluation of hypertension and dyslipidemia. Mr. Brown has been on lisinopril for mild hypertension for several years and seems to be tolerating that well. His blood pressures have been consistently controlled. Last year, we rechecked his cholesterol numbers and found that his LDL was significantly elevated. His LDL was 207 at that time in July of 2003 with a total cholesterol of 336 and triglycerides 348. His HDL was 60. For reasons that are unclear to me at this time, despite recommendations to start him on a statin, he is not on that medication. I believe that we may have been unable to reach him with those results. Fortunately, he has continued to do well without any concerning cardiac symptoms. He has no chest pain, shortness of breath, palpitations, lightheadedness or other problems. He is trying to eat a better diet, lower in cholesterol and fat, and is remaining active. His blood pressure is 126/82, heart rate 86 and weight 181 pounds. His lungs are clear. His heart rhythm is regular. He has no cardiac murmurs. 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 EYES denies diplopia, history of glaucoma or visual field defects. EARS, NOSE, THROAT, MOUTH seasonal sinusitis RESPIRATORY denies dyspnea, snoring, cough, wheezing [...] abuse or change in cognitive functions. ENDOCRINE hyperlipidemia HEMATOLOGICAL/IMMUNOLOGIC hayfever PHYSICAL EXAMINATION VITAL SIGNS: Blood Pressure: 126/82 Sitting, Left arm, regular cuff Pulse- 86.00/min. Weight- 181.00 lbs. Height- 69.00 Temperature- .00 CONSTITUTIONAL cooperative, [...] time, person and place. MEDICATIONS UPDATED TODAY: Calcium 600 mg, 1 p.o. b.i.d., DIRECTED IMPRESSION: Mr. Sarah Beth Brown is a 43-year-old gentleman with hypertension and dyslipidemia. He doesnot have diabetes, family history or history of smoking. He has no concerning cardiac symptoms at this time His blood pressure is under excellent control, but his cholesterol numbers are extremely high. I have recommended to him that he start Lipitor today 40 mg daily and return in six weeks for a fasting cholesterol panel. I have warned him about the possible side effects of muscle aching and joint pains and liver test abnormalities. He is really very much in agreement with treating this situation. TODAYS ORDERS 1. Lipid profile/ALT 6 weeks 2. Lipid profile/ALT 6 months 3. Lipid profile/ALT 1 year 4. Return Visit 1 year Electronically signed by [facility], [facility] Data Conversion at 09/06/2013 4:44 AM CDT documented in this encounter Plan of Treatment Not on filedocumented as of this encounter Visit Diagnoses Not on filedocumented in this encounter Additional Health Concerns Infection Onset Date Last Indicated Resolved Time MRSA-Contact IsolationComment: 0 04/26/2021 11:03 AM TELEPHONE QUOTATION CLERK Infection erroneous MRSA 05/13/2021 05/13/2021 Rule Out C-difficile 12/06/2021 12/06/2021 12/07/2021 8:46 AM CDT documented as of this encounter Care Teams Business Services Officer Relationship Specialty Start Date End Date No Ref-Primary, PCP - General 07/03/14 12/03/21 Physician Juan Farias MD PCP - General Cardiovascular Disease 12/04/[address] [place], [place] [id number] Juan Farias MD Assigned Heart and 02/14/20 10/03/[address] Vascular Provider [address] [place], [place] [id number] Maya, Assigned Heart and 10/04/20 Edilia Chapman APRN Vascular Provider PROVIDER RELATIONS MANAGER NO INFO AVAILABLE 02/10/2022 Juan Farias MD Assigned Heart and 04/04/21 07/31/[address] Vascular Provider [address] [place] [address] Denise Connell Physician Vp Scientific Cardiovascular Disease 08/12/21 MARIETTA Watson [address] [place] [address] Maya, Assigned Heart and 08/01/21 2 Edilia Chapman APRN Vascular Provider PROVIDER RELATIONS MANAGER NO INFO AVAILABLE 02/10/2022 Denise Connell Assigned Heart and 08/22/21 01/14/22 MARIETTA Watson Vascular Provider [address] [place] [address] Dana Barry Assigned Heart and 01/15/22 MARIETTA Teague Vascular Provider [address] [place] [address] documented as of this encounter
--- OUTSIDE RECORDS SUMMARY | 2022-02-12 13:53 | XMS_ITS | Encounter Summary ---
:1960 Author Organization [facility] Address [address] [place] [address] Care Team Providers Name Role Phone Unavailable Primary Care Provider Unavailable Encounter Details Date Type Department Care Team Description 08/04/2006 Historic Results [facility] Nany Austin [place] [address] [place], [place] CLINIC [address] [phone] [place], [place] [address] (Wo rk) Social History Tobacco Use [...] Procedure Name Priority Date/Time Associated Comments Diagnosis HEMOGLOBIN Routine 08/04/2006 6:45 AM Results f or this CDT procedure are i n the results section. BASIC METABOLIC Routine 08/04/2006 6:45 AM Result s for this PANEL CDT procedure are i n the results section. documented in this encounter Results (ABNORMAL) Hemoglobin (08/04/2006 6:45 AM CDT) P athologist Signature Hemoglobin 9.9 (L) 13.3 - 17.7 [facility] g/dL Specimen (Source) Anatomical Collection Method Collection Time Re ceived Time Location / / Volume Laterality 08/04/2006 6:45 AM 7 CDT Liudmila Austin MD LAB - BLOOD ORDERABLES Performing Organization Address City/State/ZIP Code Phon e Number [facility] (ABNORMAL) Basic metabolic panel (08/04/2006 6:45 AM CDT) [facility] Time Signature Sodium 141 133 - 144 [place] mmol/L Potassium 4.0 3.4 - 5.3 [facility] mmol/L Chloride 105 94 - 109 [place] mmol/L Carbon Dioxide 24 20 - 32 [facility] mmol/L Glucose 89 60 - 110 [place] mg/dL Urea Nitrogen 25 (H) 5 - 24 [facility] mg/dL Creatinine 1.68 (H) 0.80 - [facility] 1.50 mg/dL GFR Estimate 48 (L) >60 [facility] mL/min/1.7 m2 GFR Estimate If 58 (L) >60 [facility] Black mL/min/1.7 m2 Calcium 7.0 (L) 8.5 - 10.4 [facility] mg/dL Anion Gap 12 6 - 17 [facility] mmol/L Specimen (Source) Anatomical Collection Method Collection Time Re ceived Time Location / / Volume Laterality 08/04/2006 6:45 AM 7 CDT Liudmila Austin MD LAB - BLOOD ORDERABLES Performing Organization Address City/State/ZIP Code Phon e Number [facility] documented in this encounter Visit Diagnoses Not on filedocumented in this encounter Additional Health Concerns Infection Onset Date Last Indicated Resolved Time MRSA-Contact IsolationComment: 0 04/26/2021 11:03 AM ASSEMBLER ERECTOR Infection 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
--- OUTSIDE RECORDS SUMMARY | 2022-02-12 13:53 | XMS_ITS | Encounter Summary ---
:1960 Author Organization [facility] Address [address] [place] [address] Care Team Providers Name Role Phone Unavailable Primary Care Provider Unavailable Encounter Details Date Type Department Care Team Description 08/03/2006 Orders Only [facility] Julius Welsh MD DIAGNOSIS NOT YET Clinic [place] [address] [place] [address] DEFINED (Primary Dx) [address] [place] [address] [phone] Social History Tobacco Use Types Packs/Day Years [...] Name Priority Date/Time Associated Diagnosis Comme nts CL AFF SURGICAL Routine 08/03/2006 DIAGNOSIS NOT YET Results for this PATHOLOGY DEFINED procedure are i n the results section . documented in this encounter Results SURGICAL PATHOLOGY (08/03/2006) Impressions [facility] - 08/03/2006 CASE: [id number] Patient Name: SARAH BETH BROWN MR#: [id number] Specimen #: [id number] Collected: 08/03/2006 Received: 08/03/2006 Reported: 08/04/2006 15:09 Ordering Phy(s): CLAUDIA ARECHIGA Additional Phy(s): JULIUS WELSH SPECIMEN(S): A: Duodenal biopsy B: Gastric antrum biopsy for helicobacte r C: Gastroesophageal junction biopsy, 38c m FINAL DIAGNOSIS: A. ??Duodenum, biopsies - No histologic evidence of sprue. ??No specific findings. ??No evidence of malignancy. ? ?See microscopic description. B. ??Gastric biopsies - Focal minimal co ngestion and reactive changes suggesting minimal reactive gastropathy. ??No evidence of malignancy. Helicobacter not identified. C. ??Gastroesophageal junction, biopsy - Glandular gastric appearing mucosa with mild chronic and focal minim al acute inflammation. No intestinal goblet cell metaplasia presen t. ??No evidence of dysplasia or malignancy. Electronically signed out by: Augustin Morris M.D. CLINICAL HISTORY: Anemia. ??Rule out sprue. ??Rule out Hel icobacter. ??Rule out Flores' s. GROSS: A. ??The specimen, labeled duodenum, ru le out duodenitis, consists of four friable pink-woodruff fragments aggregat ing to 0.3 x 0.3 x 0.1 cm. Entirely submitted. B. ??The specimen, labeled gastric biop sies, consists of approximately five friable pink-woodruff fragments aggregat ing to 0.4 x 0.3 x less than 0.1 cm. ??Entirely submitted. C. ??The specimen, labeled gastroesopha geal biopsy at 38 cm, consists of a 0.2 x 0.2 x 0.1 cm pink-woodruff fragmen t of tissue. ??Entirely submitted. ??TJK/sg MICROSCOPIC: A. ??Where the villi are well oriented, there is no histologic blunting. No significant inflammation is seen with in the villous tips. There is no histologic evidence of untreated spru e. ??According to the endoscopy report, biopsies were taken from the duo denal bulb for an erosion although the requisition sheet request i s to rule out sprue. This biopsy location may explain the various villous height and changes histologically seen in the sample. ??Gen erally, biopsies taken distal to the duodenal bulb are recommended to yamileth luate for sprue as the bulb can show various non specific histologic sukhdeep nges. ??Clinical and serologic correlation for sprue is suggested. ??No evidence of erosion or ulceration is seen in the biopsy sample. ??No specific changes are present. B. ??There is patchy minimal congestion. ??No significant inflammation is present. ??No ulceration is seen. ??Some of the foveolar and surface areas show slight reactive change. ??The findi ngs are histologically non-specific, but suggest minimal reacti ve gastropathy which can be associated with chemical and/or reflux t ype gastritis in the proper clinical and endoscopic setting. ??Helic obacter is not identified on Warthin-Starry stained section. C. ??There is a single fragment of gland ular - gastric appearing epithelium present with mild chronic and focal acute inflammation. ??Some of the foveolar cells are plump and reac tive. ??No intestinal goblet cell metaplasia is identified to diagnose Bar rett's esophagus. ??No squamous epithelium is present. KARLEE/kalina 08-04-06 TESTING LAB LOCATION: [facility] [address], [place] ??[id number] COLLECTION SITE: Client: [facility] Location: MS3 (R) Electronically filed by Joan Jessica ??08/07/2006 ??8:41 AM Julius Welsh MD LABORATORY Performing Organization Address City/State/ZIP Code Phon e Number MISYS documented in this encounter Visit Diagnoses Diagnosis DIAGNOSIS NOT YET DEFINED - Primary documented in this encounter Additional Health Concerns Infection Onset Date Last Indicated Resolved Time MRSA-Contact IsolationComment: 0 04/26/2021 11:03 AM BUCKET 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
--- OUTSIDE RECORDS SUMMARY | 2022-02-12 13:53 | XMS_ITS | Encounter Summary ---
:1960 Author Organization [facility] Address [address] [place] [address] Care Team Providers Name Role Phone Unavailable Primary Care Provider Unavailable Reason for Visit Reason Comments RECHECK PT feels very weak, his feet feel like they're asleep- he's had diarrhea all day and little or nothing to eat- he did take his iron pill with orange juice and some ensure Encounter Details Date Type Department Care Team Description 08/02/2006 Office Visit [facility] Julius Welsh MD ANEMIA NOS; [facility] [place] [address] [place] [address] MIXED HYPERLIPIDEMIA; [address] [place] [address] [place] [employer] [place], [place] [address] [phone] Social History Tobacco Use Types Packs/Day Years Used Date Smoking Tobacco: Never Alcohol Use Standard Drinks/Week Comments Yes 0 (1 standard drink = 0.6 oz pure alcoho l) socially approx 5 drinks/wk Sex Assigned at Date Recorded Not on file documented as of this encounter Last Filed Vital Signs Vital Sign Reading Time Taken Comments Blood Pressure 84/48 08/02/2006 4:15 PM CDT Pulse - - Temperature 36.8 ??C (98.2 ??F) 08/02/2006 4:15 PM CDT Respiratory Rate - - Oxygen Saturation - - Inhaled Oxygen Concentration - - Weight 76.2 kg (168 lb) 08/02/2006 4:15 PM CDT Height 172.7 cm (5' 8) 08/02/2006 4:15 PM CDT Body Mass Index 25.54 08/02/2006 4:15 PM CDT documented in this encounter Progress Notes Julius Welsh - 08/02/2006 5:22 PM CDT Pt here for f/u. He feels worse, and wishes to accept offer of admission into [facility]. Histories Updated through 08.02.2006: Past Medical History Diagnosis Date ??? HYPERTENSION NOS ??? HYPERLIPIDEMIA NEC/NOS ??? ANEMIA NOS No past surgical history on file. Allergies Allergen Reactions ??? No Known Drug Allergies Current Outpatient Rx Name Route Sig Dispense Refill ??? IRON (FERROUS SULFATE) TABS 325 MG OR Oral 1 TABLET PO BID 60 2 ??? LIPITOR 20 MG OR TABS Oral 1 TABLET DAILY ??? LISINOPRIL 20 MG OR TABS Oral 1 TABLET DAILY Allergies Allergen Reactions ??? No Known Drug Allergies EXAM: See dictated H&P A/P: 1- Subacute GI bleed. Admmit to [facility] Med/Surg. T&C x 2 units and transfuse. 2- NPO, GI Consult, and prepr for possible colonoscopy. 3- Cardiac risk stratification. Will check one troponin while in hospital after admission. documented in this encounter Nursing Notes 08/02/2006 4:15 PM CDT >> NA ALLRED 08/02/2006 4:23 pm Patient presents with: RECHECK - PT feels very weak, his feet feel like they're asleep- he's had diarrhea all day and little or nothing to eat- he did take his iron pill with orange juice and some ensure Initial BP 84/48 Temp (Src) 98.2 (Oral) Ht 5' 8 (1.73m) Wt 168 lbs (76.2kg) Body mass index is 25.55 kg/(m^2).. 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
--- OUTSIDE RECORDS SUMMARY | 2022-02-12 13:53 | XMS_ITS | Encounter Summary ---
:1960 Author Organization [facility] Address [address] [place] [address] Care Team Providers Name Role Phone Unavailable Primary Care Provider Unavailable Encounter Details Date Type Department Care Team Description 09/27/2006 Admission [facility] Amna Austin (Beveler) [facility] [place] MD [place] [address] [place], [place] CLINIC [id number] [phone] [place], [place] [address] (Wo rk) Social History Tobacco Use Types Packs/Day Years Used Date Smoking Tobacco: Never Alcohol Use Standard Drinks/Week Comments Yes 0 (1 standard drink = 0.6 oz pure alcoho l) socially approx 5 drinks/wk Sex Assigned at Date Recorded Not on file documented as of this encounter Progress Notes Amna Austin - 10/02/2006 4:53 PM CDT FINAL CHIEF COMPLAINT: Numb legs and increased sensitivity to his legs. HISTORY OF PRESENT ILLNESS: This is a 45-year-old male who presented to the Emergency Department with a one month history of some paresthesias in both of his legs. He feels that it is worse in the feet and his sensation does get better as you move up his legs to his thighs. He feels that they are constantly asleep and they are incredibly sensitive. When anything brushes up against them, especially the dog, it is very discomforting and annoying. He does not have a lot of pain but just feels that they are constantly asleep. This has been going on for about a month and continues to get worse. 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 He is always in protective clothing and is not allowed to eat or drink on the job when he is in the clean room. The patient denies having any problems with walking and feels that his strength is okay but he feels that sometimes he is unsteady and has to use a wall to steady himself. He denies having any back pain. He denies having any radiating pain. He denies any headaches. He denies any bowel or bladder incontinence, but has been experiencing some diarrhea. He has also noticed that his feet no longer sweat and his feet are actually cold all the time. The patient has had some nausea and vomiting over the last few days. He is hungry and does not haveany early satiety but cannot keep his food down. He also says that he has been having a hard time keeping liquids down. He does try to keep himself hydrated during the day with Powerade, but is not able to keep this down. [place] in [place] area and did not have any problems with diarrhea at that time. Since he has come back, he has had three to four episodes of diarrhea per day. He did win some meat in a raffle and had some Bratwurst that he thought was maybe bad. He denies any dark tarry stools. He does not have any problems swallowing but just cannot keep anything down. He is able to get it down; it just comes back up after he coughs. The only food intolerance that he notices is with [place] food. Over the weekend he was drinking beer as well as hard liquor. He was drinking more than he usually does. When he got back from the fishing trip, he said that he felt shaky. He says that he does normally drink 2-3 drinks of hard liquor daily. 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 He did try to cut back after his last hospitalization in July 2006 and denied going through any withdrawal symptoms such as shaking, sweating or delirium. Patient's creatinine was elevated to 2.28 with a BUN of 16 and it was felt that he was dehydrated and needed to be admitted for evaluation of his renal failure. PAST MEDICAL HISTORY: 1. Hospitalized in 07/2006 for an anemia that was thought to be related to a GI bleed. A) The patient was found to have an elevated lipase at that time but did not have any symptoms of pancreatitis. A CT scan was performed which showed some fatty liver infiltration and a few nephrolithiasis but nothing significant with the pancreas. B) Gastroenterology did see the patient and performed an EGD showingsome Flores's esophagus as well as gastritis and duodenitis. Biopsies did not show any cancer and did not show any celiac sprue at that time. C) Patient also did have a colonoscopy performed and he had an area in the cecum that was erythematous and irritated. There was no active bleeding going on in t he colon and no masses or anything suspicious for cancer was seen at that time. 2. Hyperlipidemia, patient has been going off of the Lipitor for unknown reasons. 3. Hypertension. The patient has not been on any medications since his last hospitalization because his creatinine was still elevated and hewas actually hypotensive at that time. 4. The patient's last tetanus shot was 5 years ago and he believes this was his most recent immunization. He did not get any immunizations at his last hospitalization. PAST SURGICAL HISTORY: Status post hernia repair in 1980. MEDICATIONS: 1. Iron sulfate 325 mg daily. 2. Multivitamin daily. 3. Omeprazole 40 mg daily. 4. Backing off the Lipitor. ALLERGIES: Only seasonal with ragweed. Denies any drug allergies. FAMILY HISTORY: Significant for some hypertension in grandparents. Parents are both still alive. Francois describes a brother having a nervous tension disorder with his stomach. It is supposedly a neurologic condition but affects his stomach. SOCIAL HISTORY: The patient lives with his significant other for 13 years as well as her grandchildwho is 16 years old. 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 He has been there for about a month and a half. He says that he drinks about 2-3 drinks of hard liquor daily. Denies smoking. He has occasional soda and coffee. The patient denies any illicit drug use. REVIEW OF SYSTEMS: The patient denies any fevers, chills or recent illness. He does have seasonal allergies and occasionally will get puffiness of his mouth. RESPIRATORY: The patient denies any dyspnea or cough. CARDIOVASCULAR: The patient denies any chest pains or palpitations. GASTROINTESTINAL: As above. The patient does describe some nausea whenever he eats but denies the early satiety. He denies having significant heartburn or reflux on starting the omeprazole. GENITOURINARY: The patient does have some nocturia at night, but denies any hematuria or decrease in urinary stream. He has not noticed any problems with urination. HEMATOLOGIC/ONCOLOGIC: Patient denies any bleeding tendencies or easy bruising. SKIN: The patient denies any new rashes or skin lesions. MUSCULOSKELETAL: The patient denies any weakness but does have some problems with balance. NEUROLOGIC: As above. PHYSICAL EXAMINATION: VITAL SIGNS: Temperatures 99.6, pulse is 84, respiratory rate 16, blood pressure is 143/75, O2 satsare 98% on room air. GENERAL: The patient is awake, alert, oriented appropriately, in no acute distress. He is a good historian and is able to describe his symptoms well. He appears his stated age. HEENT: Normocephalic, atraumatic. Pupils equal, round, react to light, no scleral icterus or erythema noted. Mucus membranes moist and intact. No pharyngeal erythema or exudate. NECK: Supple, full range ofmotion, no lymphadenopathy or thyromegaly appreciated. LUNGS: Clear to auscultation bilaterally, no rhonchi, rales or wheezes appreciated. No increase in respiratory effort or use of accessory muscles.HEART: Regular rate and rhythm without any murmurs, rubs or gallops appreciated. ABDOMEN: Bowel sounds are hyperactive, soft, nontender, no distention. No guarding. The patient does have a firm liver edge that is palpable 2 cm below the costal margin. EXTREMITIES: Strength is 5/5 bilaterally in the lower extremities. No edema noted. Distal pulses are slightly decreased in the dorsalis pedis as well as the posterior tibialis area. The patient does not have any nonhealing sores or ulcers on his feet. Capillary refill is about 3 seconds. NEUROLOGIC: Cranial nerves II-XII are grossly intact. DTRs are 2+ bilaterally in the upper and lower extremities. Sensation is decreased in the distal part of the legs. He is incredibly sensitive and jumpy with any touching of his legs. He feels that it is very ticklish. He is moving his legs a lot. SKIN: Examination is warm and moist to touch. There is a decrease in temperature of his feet when compared to his upper legs but it is not significant. He does not have a lot of hair distribution on his legs. He is also noticed to have some raised circular lesions on his forehead and around his jaw line. They are very round and looked like they have umbilicated centers that are suspicious for molluscum. LABORATORY DATA: White blood cell count is 5.9, hemoglobin of 13.3, hematocrit of 40.3, platelets are 156, RDW slightly increased at 16. Sodium is 142, potassium is 3.9, chloride of 100, bicarbonate of 26, glucose of 87, BUN is 16, creatinine is 2.28, calcium level is normal at 9.4. LFTs show a slightly elevated bilirubin at 1.9, total protein is elevated at 8.5 and an AST is elevated at 111. His ALT is normal. Lipase level is elevated at 663. An Accu- Chek was performed and was found to be 86. ASSESSMENT AND PLAN: 1. Acute renal insufficiency. This is likely from some dehydration secondary to his binge drinking over the weekend as well as the diarrhea. There is some concern that he may have some intrinsic kidney function given the fact that he always has these problems. Will perform aggressive IV hydration andrecheck his kidney panel in the morning. If it does not normalize, then possible renal consultation will be performed. We will check a renal ultrasound as well as check a urinalysis and sodium and creatinine to get a FENA specimen. We will also be checking some stool studies to see if he has any E. coli or possible Giardia given his recent trip. 2. Paresthesias in the lower extremities. Etiology at this point is unknown. Likely it could be a vitamin deficiency given his alcohol use. Will check a vitamin B12 and folate. I will also have neurology see as this is a very interesting case. Will also check an HIV as well as a TSH. The symptoms started right around the time of his job and so there is some concern that he has some exposure to some heavy metals or something. Will get neurology's input. 3.Nausea and vomiting and difficulty eating. This is very vague and I am not sure if it is related to his alcohol use or his gastritis. He had a biopsy that was negative for celiac sprue but will still check celiac sprue tests. Patient will be allowed to eat as he is not having any significant pain. Quite possibly, he just has a lot of irritation and does not absorb things well and this is why he gets the diarrhea. We will be checking some stool studies. He does not need any GI imaging at this time asthis was performed only 2 months ago. 4. Hypertension, likely related to his alcohol use. During hislast hospitalization he was actually hypotensive so he was not put on any medications when he was discharged. Will just continue to follow his blood pressures while he is here in the hospital. He is borderline elevated at this time. Likely this will get better when he cuts down on his alcohol use. 5. Alcohol use/abuse. The patient denies having any withdrawal symptoms. He was discharged from the [facility] in July of 2006 and was advised to decrease his drinking. When he was abstinent for 2 weeks, hedid not have any problems with shaking or being delirious. This is strange given the fact that he drinks hard liquor on a daily basis. I do feel that a lot of his symptoms are related to his alcohol use, probably because he is not taking in as many vitamins as he really should be. We will need to discuss this with him and continue to discuss ways to cut down on his alcohol use, if not completely quit. 6. Hyperlipidemia. History of elevated cholesterol. He has not been taking his Lipitor for unknown reasons. Will check a fasting panel on 09/28 to see how serious his cholesterol is and see if he needsto continue with the statin. DISPOSITION: Dr. Egan will assume care on 09/28/06. The patient is anxious to be discharged soon and I feel that he would benefit from some IV hydration as well as having neurology see him because of the paresthesias. There seems to be something underlying here with this gentleman and it is difficult to determine exactly what it is. He does need at least one day for some of the blood work to be performed. He could be easily discharged on 09/28 if he is notably improved, but will need to follow up with neurology or with his primary care physician to further investigate the paresthesias. 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
--- OUTSIDE RECORDS SUMMARY | 2022-02-12 13:53 | XMS_ITS | Encounter Summary ---
:1960 Author Organization [facility] Address [address] [place] [address] Care Team Providers Name Role Phone Unavailable Primary Care Provider Unavailable Encounter Details Date Type Department Care Team Description 08/02/2006 Historic Results [facility] Tabitha Welsh MD [address] [phone] ([place]) [phone] Social History Tobacco Use Types Packs/Day Years [...] Diagnosis Comme nts EKG 12 LEAD Routine 08/02/2006 6:52 PM Results f or this CDT procedure are i n the results section . documented in this encounter Results EKG 12 LEAD (08/02/2006 6:52 PM CDT) Component Value Ref Range Test Analysis Performed Pathologis t Method Time At Signature Ventricular Rate 82 BPM RADIOLOGY RESULTS Atrial Rate 82 BPM RADIOLOGY RESULTS TX Interval 132 ms RADIOLOGY RESULTS QRS Duration 94 ms RADIOLOGY RESULTS QT 382 ms RADIOLOGY RESULTS QTc 446 ms RADIOLOGY RESULTS P [place] 33 degrees RADIOLOGY RESULTS R AXIS 1 degrees RADIOLOGY RESULTS T [place] 30 degrees RADIOLOGY RESULTS Interpretation Sinus rhythm RADIOLOGY ECG Nonspecific ST abnormality RES ULTS Abnormal ECG Unconfirmed report - interpretation of this ECG is compute r generated - see medical record for final interpretation Specimen Anatomical Collection Method Collection Time Receive d Time (Source) Location / / Volume Laterality 08/02/2006 6:52 PM 7 5:40 CDT PM CDT Julius Welsh MD ECG ORDERABLES Performing Organization Address City/State/ZIP Code Phon e Number RADIOLOGY RESULTS documented in this encounter Visit Diagnoses Not on filedocumented in this encounter Additional Health Concerns Infection Onset Date Last Indicated Resolved Time MRSA-Contact IsolationComment: 0 04/26/2021 11:03 AM 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
--- OUTSIDE RECORDS SUMMARY | 2022-02-12 13:53 | XMS_ITS | Encounter Summary ---
:1960 Author Organization [place] Address [address] [place] [address] Care Team Providers Name Role Phone Unavailable Primary Care Provider Unavailable Encounter Details Date Type Department Care Team Description 08/02/2006 Discharge Summary [facility] Amna Austin (Hydrochloric Acid Operator) Clinic [place] MD [place] [address] [facility] [phone] [phone] [place] [address] (Wo rk) Social History Tobacco Use Types Packs/Day Years Used Date Smoking Tobacco: Never Alcohol Use Standard Drinks/Week Comments Yes 0 (1 standard drink = 0.6 oz pure alcoho l) socially approx 5 drinks/wk Sex Assigned at Date Recorded Not on file documented as of this encounter Progress Notes Amna Austin - 08/26/2006 9:56 PM CDT FINAL DATE OF ADMISSION: 08/02/2006 DATE OF DISCHARGE: 08/04/2006 DISCHARGE DIAGNOSES: 1. Acute blood loss anemia. 2. Acute renal insufficiency secondary to dehydration. 3. Pancreatitis. 4. Fatty liver disease. PROCEDURES: 1. Endoscopy performed on 08/03/06. 2. Colonoscopy performed on 08/03/06. 3. The patient was transfused 4 units of packed red blood cells over 08/02 on 08/03. 4. CT scan was performed on 08/03/06. DISCHARGE MEDICATIONS: 1. Omeprazole 40 mg q.a.m. 2. Iron sulfate one tab daily. 3. Multivitamin 1 tab daily. 4. The patient was instructed to hold his lisinopril. I did discuss the importance of the Lipitor to help with the cholesterol but he would rather wait until he follows up in the clinic. HOSPITAL COURSE: This is a 45-year-old male who presented to the clinic on 07/31/06, with a very bad symptoms of lightheadedness, nausea and diarrhea. He also had significant amount of weight loss. The patient did have a relatively low blood pressure and was recently started on lisinopril. He was foundto be anemic with hemoglobin of 6.5 and normal on CVA at 98 and white count of 6.8. Reticulocyte count was done which was slightly elevated, indicating that this was probably an acute process. The patient did have a Hemoccult done in the clinic which also was positive. The patient was also showing some hyponatremia at that time. The patient agreed to admission on 08/02/06 from the clinic. The patient was admitted for management of his anemia as well as for evaluation to see if there heber active cause. He was transfused 2 units of packed red blood cells overnight on 08/02/06, and his hemoglobin came up to 7.3. He did get 2 more units prior to his endoscopy. He stabilized in the 9s. His hemoglobin at the time of discharge was 9.9. GI was consulted and they agreed to do an upper GI as well as a colonoscopy to look for a possible cause. Story was not convincing because the patient did not have any melena or bright red blood per rectum, however, his anemia and hypotension was concerning. Colonoscopy was performed which showed some erythematous mucosa in the cecum, but otherwise normal. He should have another colonoscopy done in ten years. His endoscopy was significant for some mild stenosis in the esophagitis that was insignificant. He did have some nonbleeding erosive gastropathy as well. He also had some erosive duodenopathy. There were also some mucosal changes consistent with Flores's esophagus. These were biopsied. The patient tolerated that those procedures well, then actually tolerated p.o. incredibly well after the procedure. He did not have any diarrhea or abdominal pain after this. Of note, his admission labs showed calcium of 6.9. This was markedly decreased. Ionized calcium wasobtained and this was also low at 3.5. Given the patient's story about drinking five to six drinks aweek and an elevated AST, rather than an elevated ALT, lipase and amylase were checked. His lipase was 3259 and amylase was 166. This certainly could explain the significant dehydration and problems with intravascular hypotension. It could also explain the low calcium as well as the anemia. CT scan was done without IV contrast because of the elevated creatinine. Oral contrast was done. He was found to have some right nephrolithiasis as well as some fatty infiltration of the liver. There were a few scattered diverticula in the sigmoid colon. There was also some mild perinephric stranding, which was nonspecific. The pancreas was unremarkable. No fluid collections around it. As for the patient's fluid status he was found to be severely hypotensive when he came in. They were having a very hard time keeping his blood pressures about 80. Fluids were changed from half normal saline to normal saline and his rate was increased to 150 ml an hour. His creatinine did decrease from 2.26 on 08/03/06, to 1.68 at the day of discharge. The patient had good urine output and his blood pressures were in the 100s to 1-teens over 70s. He was found to be stable. DISPOSITION: The patient was found to be stable on 08/04/06, and was eager to go home. I did discussthe findings with him as well as the importance of decreasing alcohol intake. We also discussed thattriglycerides could cause some bad pancreatitis. The patient was urged to follow up with us next week to have a repeat lipase level checked as well as repeat hemoglobin. The other thing I would consider would be repeating his renal function as well as obtaining a qualitative stool fat specimen. If he does have some spasm in his stool he may be having some malabsorption because of a sick pancreas. Thepatient also need follow-up to get the biopsy results. He will be discharged on the medications described above. TOTAL DISCHARGE TIME: Total amount of time spent with this discharge management was 30 minutes. 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
--- OUTSIDE RECORDS SUMMARY | 2022-02-12 13:53 | XMS_ITS | Encounter Summary ---
:1960 Author Organization [facility] Address [address] [place] [address] Care Team Providers Name Role Phone No Ref-Primary, Physician Primary Care Provider Juan Farias MD Unavailable Edilia Trejo APRN CAR INSPECTOR Unavailable Glendy vailable Juan Farias MD Unavailable Denise Connell-C Unavailable [phone] Edilia Trejo APRN CAR INSPECTOR Unavailable Glendy vailable Denise Connell-C Unavailable [phone] Juan Farias MD Primary Care Provider Dana Barry PA-C Unavailable [phone] Encounter Details Date Type Department Care Team Description 08/21/2002 Office Visit-[facility] Heart Unknown, Iva lockett MD [address] [address] Social History Tobacco Use Types Packs/Day Years Used Date Smoking Tobacco: Never Assessed Sex Assigned at Date Recorded Not on file documented as of this encounter Progress Notes Unknown, DoctorMD - 08/27/2002 10:20 AM CDT DATE: 08/21/2002 SARAH BETH BROWN DATE OF : 1960 AGE: [age] years old Referring Physician: JEROME MORENO CURRENT DIAGNOSES 1. - Hypertension, benign, 401.1 ALLERGIES NKA MEDICATIONS 1. Lisinopril 20 mg, 1 p.o. q.d. 2. Vitamin and Mineral Supplement Multiple Vitamins with Minerals, 1 p.o. q.d. CHIEF COMPLAINTS F/u HISTORY OF PRESENT ILLNESS I had the opportunity to see Mr. Sarah Beth Brown in cardiology clinic today for reevaluation of hypertension and cardiac risk factors. I have seen Mr. Brown since December of 1999 at which time he hada normal stress echocardiogram but significant hypertension which would not be controlled by diet and exercise. I initiated him on lisinopril and increased the dose to 20mg per day with effective control of his blood pressure since that time. He comes in today without any cardiac related complaints but does have some questions regarding his allergy medications and their effect on his cardiac status. I have answered his questions for him. He specifically denies chest pain, shortness of breath, lower extremity edema and palpitations. He has no light-headedness, near-syncope or syncope. On examination, his blood pressure is 126/86, heart rate 64 beats per minute and weight 171 pounds. His lungs are clear. His heart rhythm is regular. He has no cardiac murmurs or lower extremity edema. 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 Weight- 171.00 lbs. Height- 69.00 Temperature- .00 CONSTITUTIONAL cooperative, [...] time, person and place. MEDICATIONS UPDATED TODAY: Lisinopril 20 mg, 1 p.o. q.d., 0 MEDICATION STOPPED TODAY: Zestril 20 Mg IMPRESSIONS/PLAN Mr. Sarah Beth Brown is a 41-year-old gentleman with mild essential hypertension controlled well on lisinopril at this time. It has been several years since we have elevated his cholesterol panel and he wishes to proceed with that today and is fasting. I have ordered that for him. In addition, I will check a fasting glucose level as well. I will inform him of the results and initiate treatment if necessary. He has no other cardiac risk factors such as a family history of coronary artery disease, smoking or diabetes. TODAYS ORDERS 1. Lipid profile/ALT Today 2. Fasting Glucose Today 3. Return Visit 1 year Juan Farias M.D. Electronically signed by [facility], [facility] Data Conversion at 09/06/2013 4:44 AM CDT documented in this encounter Plan of Treatment Not on filedocumented as of this encounter Visit Diagnoses Not on filedocumented in this encounter Additional Health Concerns Infection Onset Date Last Indicated Resolved Time MRSA-Contact IsolationComment: 0 04/26/2021 11:03 AM SWEATBAND DRUMMER Infection erroneous MRSA 05/13/2021 05/13/2021 Rule Out C-difficile 12/06/2021 12/06/2021 12/07/2021 8:46 AM CDT documented as of this encounter Care Teams Plant Reliability Engineer Relationship Specialty Start Date End Date No Ref-Primary, PCP - General 07/03/14 12/03/21 Physician Juan Farias MD PCP - General Cardiovascular Disease 12/04/[address] [place], [place] [id number] Juan Farias MD Assigned Heart and 02/14/20 10/03/[address] Vascular Provider [address] [place], [place] [address] Maya, Assigned Heart and 10/04/20 Edilia Chapman APRN Vascular Provider CAR INSPECTOR NO INFO AVAILABLE 02/10/2022 Juan Farias MD Assigned Heart and 04/04/21 07/31/[address] Vascular Provider [address] [place] [address] Denise Connell Physician Stopboard Assembler Cardiovascular Disease 08/12/21 MARIETTA Watson [address] [place] [address] Maya, Assigned Heart and 08/01/21 2 Edilia Chapman APRN Vascular Provider CAR INSPECTOR NO INFO AVAILABLE 02/10/2022 Denise Connell Assigned Heart and 08/22/21 01/14/22 MARIETTA Watson Vascular Provider [address] [place] [address] Dana Barry Assigned Heart and 01/15/22 MARIETTA Teague Vascular Provider [address] [place] [id number] documented as of this encounter
--- OUTSIDE RECORDS SUMMARY | 2022-02-12 13:53 | XMS_ITS | Encounter Summary ---
:1960 Author Organization [facility] Address [address] [place] [address] Care Team Providers Name Role Phone Unavailable Primary Care Provider Unavailable Encounter Details Date Type Department Care Team Description 08/02/2006 Consultation Isaak Bustillos MD [place] [facility] [place] [address] [place], [place] [id number] (Wo rk) Social History Tobacco Use Types Packs/Day Years Used Date Smoking Tobacco: Never Alcohol Use Standard Drinks/Week Comments Yes 0 (1 standard drink = 0.6 oz pure alcoho l) socially approx 5 drinks/wk Sex Assigned at Date Recorded Not on file documented as of this encounter Progress Notes Isaak Bustillos MD - 08/31/2006 3:22 PM CDT FINAL REASON FOR CONSULTATION: Anemia. HISTORY OF PRESENT ILLNESS: We were asked to see this patient by Dr. Julius Welsh for anemia and to evaluate for GI bleeding. Sarah Beth Brown is a 45-year-old male who for the past two weeks has complained of malaise, weakness, dizziness, and nausea. He eventually went to his primary care physician's office and a CBC was checked and he was found to have a very low hemoglobin and so he was sent to the hospital. Upon admission his hemoglobin was found to be 6.4. The patient states he has never had any problems in the past with acid reflux, peptic ulcer disease, or any reason to be bleeding from a lower GI source. The patient states his bowel movements have been normal. He has not noticed any melena or red blood in his stools. He also has not noticed any abdominal pain and has not been vomiting. He denies heavy NSAID use. In fact, he states he will take an Ibuprofen once every two weeks for an occasional headache. The patient does admit to drinking hard alcoholic beverages about 5-6 times a week, sometimes more on the weekends. He states he has been doing this for the past 15 years. The only other medical conditions he has are hypertension and high cholesterol. The patient also mentions that he haslost about 10 pounds over the past two weeks, and he thinks this is most likely due to decreased p.o. intake from not feeling well. PAST MEDICAL HISTORY: 1. Hypertension. 2. Hyperlipidemia. PAST SURGICAL HISTORY: None. FAMILY HISTORY: The patient denies any colon cancer or colon polyps, liver, gallbladder, pancreaticdisease, peptic ulcer disease or inflammatory bowel disease. SOCIAL HISTORY: The patient denies tobacco use. He does admit to alcohol use as stated in the HPI. REVIEW OF SYSTEMS: Per HPI. Otherwise the patient denies fever, chills, night sweats, shortness of breath, chest pain, abdominal pain, vomiting, diarrhea, constipation, hematemesis, hematochezia or melena, yellowing of the skin or eyes, skin rashes, arthralgias or myalgias. ALLERGIES: No known drug allergies. MEDICATIONS: 1. Iron sulfate 325 mg p.o. b.i.d. This was started on 08/01/06. 2. Lipitor 20 mg daily. 3. Lisinopril 20 mg in the morning. PHYSICAL EXAMINATION: VITAL SIGNS: Blood pressure 83/52, pulse 74, temperature 99. GENERAL: This is a well developed, well nourished 45-year-old white male in no acute distress, alert and oriented x3. SKIN: Pale, warm, dry. No rashes, no jaundice. No spider angiomas. HEENT: Eyes have no scleral icterus. NECK: Supple. No thyromegaly or lymphadenopathy. LUNGS: Clear to auscultation bilaterally. HEART: Regular rate and rhythm, no murmurs, rubs, gallops or clicks. ABDOMEN: Normal active bowel sounds, soft, nontender, nondistended. Liver is normal in size. Spleenis not palpable. No other masses, guarding or rebound. EXTREMITIES: No edema. No palmar erythema. NEUROLOGIC: No asterixis, no focal abnormalities. LABORATORY DATA: Significant for hemoglobin of 6.5 on 07/31/06. Hemoglobin dated 08/03/06 after receiving two units of blood is 7.3. These labs are also dated 08/03/06: WBC 7.8, MCV 92, platelets 281, sodium 131, potassium 3.5, BUN 44, creatinine 2.26, calcium 6.9. Iron studies dated 08/01/06 show normaliron level, TIBC and iron saturation. Ferritin is elevated at 1671. Dated 07/31/06 ALT is 60 and an AST is 149. TSH was normal at 3.66. IMPRESSION/PLAN: Mr. Brown is a 45-year-old white male who was found to be profoundly anemic withan initial hemoglobin of 6.4 and after aggressive IV hydration and two units of blood the patient's hemoglobin is now 7.3. He doesn't really have any obvious source of GI bleeding, but looking at the patient's labs and discussing his alcohol use with him it seems that alcohol is an issue here and we need to evaluate the patient for esophageal varices, portal hypertensive gastropathy or other etiologies of his anemia. According to the nurse the patient has been n.p.o. and has already taken the colonoscopy prep. In light of this after speaking with Dr. Travis Bustillos, we will proceed with doing an EGD and colonoscopy later this afternoon. Also it appears an INR has never been checked during this admission so we will check that just to make sure that he does not have an increased level. Obviously we need to watch the patient for any withdrawal symptoms of alcohol and further recommendations will be made following the procedures this afternoon. I discussed all of this with the patient and he agrees to proceed. 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
--- OUTSIDE RECORDS SUMMARY | 2022-02-12 13:53 | XMS_ITS | Encounter Summary ---
:1960 Author Organization [facility] Address [address] [place] [address] Care Team Providers Name Role Phone Unavailable Primary Care Provider Unavailable Encounter Details Date Type Department Care Team Description 08/03/[address] [facility] Results MD Fina [facility] [address] [place], [place] [address] (Wo rk) Social History [...] Procedure Name Priority Date/Time Associated Diagnosis Comme [facility] CT ABDOMEN W/O Routine 08/03/2006 11:22 PM Res ults for this CONTRAST CDT procedure are i n the results section. documented in this encounter Results CT SCAN ABDOMEN (08/03/2006 11:22 PM CDT) Anatomical Region Laterality Modality Other Specimen (Source) Anatomical Collection Method Collection Time Re ceived Time Location / / Volume Laterality 08/03/2006 11:22 PM CDT Impressions 08/04/2006 9:03 AM CDT EXAM: ??CT ABDOMEN/PELVIS W/O CONT* ??Ap r 2006 11:22:00 PM HISTORY: ??GI bleed. Renal failure. Panc reatitis. TECHNIQUE: Scans were obtained from the diaphragm through the pelvis without IV contrast. FINDINGS: ??Scattered fibrosis or atelec tasis right lung base. Diffuse fatty infiltration of both lobes of the liver. Liver and spleen are otherwise normal. Pancreas is within nor mal limits in size without significant peripancreatic inflammation. Gallbladder is contracted. 2 mm calcification in the right kidney con sistent with nephrolithiasis. Both kidneys are otherwise normal withou t evidence of mass or hydronephrosis. Mild perinephric strandi ng bilaterally. Scattered diverticula in the sigmoid colon without evidence of diverticulitis. Small bowel is unremarkable. Remainder t he scan is negative. IMPRESSION: ?? 1. Right nephrolithiasis. 2. Mild perinephric stranding which is n onspecific. Both kidneys are otherwise normal. 3. Fatty infiltration of the liver. 4. Scattered diverticula sigmoid colon. Liudmila Austin MD [employer] documented in this encounter Visit Diagnoses Not on filedocumented in this encounter Additional Health Concerns Infection Onset Date Last Indicated Resolved Time MRSA-Contact IsolationComment: 0 04/26/2021 11:03 AM CHEMICAL EDUCATOR Infection 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
--- OUTSIDE RECORDS SUMMARY | 2022-02-12 13:53 | XMS_ITS | Encounter Summary ---
:1960 Author Organization [facility] Address [address] [place] [address] Care Team Providers Name Role Phone Unavailable Primary Care Provider Unavailable Encounter Details Date Type Department Care Team Description 07/25/2005 Orders Only [facility] Tristan Egan SIS NOT YET Clinic Plummer MD Navin DEFINED (Primary Dx) [id number] [place] [id number] [phone] Social History Tobacco Use Types Packs/Day Years Used Date Smoking Tobacco: Never Assessed Sex Assigned at Date Recorded Not on file documented as of this encounter Plan of Treatment Not on filedocumented as of this encounter Procedures Procedure Name Priority Date/Time Associated Diagnosis Comme nts HCL LDL-CHOLESTEROL Routine 07/25/2005 DIAGNOSIS NOT YET Res ults for this DEFINED procedure are i n the results section . HCL TRIGLYCERIDES Routine 07/25/2005 DIAGNOSIS NOT YET Resul ts for this DEFINED procedure are i n the results section . HCL HDL CHOLESTEROL Routine 07/25/2005 DIAGNOSIS NOT YET Res ults for this DEFINED procedure are i n the results section . HCL CHOLESTEROL Routine 07/25/2005 DIAGNOSIS NOT YET Results for this DEFINED procedure are i n the results section . documented in this encounter Results TRIGLYCERIDES [[id number]] (07/25/2005) athologist Signature Triglycerides 95 mg/dL [facility] Tristan Egan MD LABORATORY Performing Organization Address City/State/ZIP Code Phon e Number [facility] LDL-CHOLESTEROL [[id number]] (07/25/2005) athologist Signature LDL Cholesterol 111 mg/dL [facility] Calculated Tristan Egan MD LABORATORY Performing Organization Address [facility] Phon e Number [facility] HDL CHOLESTEROL [[id number]] (07/25/2005) P athologist Signature HDL Cholesterol 93 mg/dL [facility] Tirstan Egan MD LABORATORY Performing Organization Address [facility] Phon e Number [facility] (ABNORMAL) CHOLESTEROL [[id number]] (07/25/2005) athologist Signature Cholesterol 223 (A) 115 - 199 [facility] mg/dL Tristan Egan MD LABORATORY Performing Organization Address [facility] Phon e Number [facility] documented in this encounter Visit Diagnoses Diagnosis DIAGNOSIS NOT YET DEFINED - Primary documented in this encounter Additional Health Concerns Infection Onset Date Last Indicated Resolved Time MRSA-Contact IsolationComment: 0 04/26/2021 11:03 AM SPARES SCHEDULER Infection 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
--- OUTSIDE RECORDS SUMMARY | 2022-02-12 13:53 | XMS_ITS | Encounter Summary ---
:1960 Author Organization [facility] Address [address] [place] [address] Care Team Providers Name Role Phone No Ref-Primary, Physician Primary Care Provider [phone] Encounter Details Date Type Department Care Team Description 07/05/[address] [facility] Heart Unknown, [facility] ider [address] [place] [address] Social History Tobacco Use Types Packs/Day Years Used Date Smoking Tobacco: Never Assessed Sex Assigned at Date Recorded Not on file documented as of this encounter Plan of Treatment Not on filedocumented as of this encounter Procedures Procedure Name Priority Date/Time Associated Diagnosis Comme nts ECHO CARDIAC - HIM SCAN 07/05/2001 12:00 AM SCADA TECHNICIAN - ARCHIVE documented in this encounter Results ECHO CARDIAC - HIM SCAN - ARCHIVE (07/05/2001 12:00 AM SCADA TECHNICIAN) Anatomical Region Laterality Modality Echocardiography Specimen (Source) Anatomical Location Collection Method / Collectio n Time Received Time / Laterality Volume 07/05/2001 Narrative This result has an attachment that is no t available. Provider Scan CV ECHO ORDERABLES documented in this encounter Visit Diagnoses Not on filedocumented in this encounter Additional Health Concerns Infection Onset Date Last Indicated Resolved Time MRSA-Contact IsolationComment: 0 04/26/2021 11:03 AM SCADA TECHNICIAN Infection 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 Care Teams Customs And Border Protection Inspector Relationship Specialty Start Date End Date No Ref-Primary, Physician PCP - General 07/03/14 12/03/21 documented as of this encounter
--- OUTSIDE RECORDS SUMMARY | 2022-02-12 13:53 | XMS_ITS | Encounter Summary ---
:1960 Author Organization [facility] Address [address] [place] [address] Care Team Providers Name Role Phone Unavailable Primary Care Provider Unavailable Encounter Details Date Type Department Care Team Description 08/03/2006 Historic Results [facility] Nany Austin [place] MD Fina [address] [place], [place] CLINIC [address] [phone] [place], [place] [address] (Wo rk) Social History [...] Name Priority Date/Time Associated Comments Diagnosis HEMOGLOBIN Timed 08/03/2006 7:55 PM Results f or this CDT procedure are i n the results section. CALCIUM IONIZED Timed 08/03/2006 7:55 PM Result s for this CDT procedure are i n the results section. TRANSFUSE RBC Routine 08/03/2006 11:18 Results fo r this AM CDT procedure are i n the results section. INR STAT 08/03/2006 10:45 Results for this AM CDT procedure are i n the results section. TRANSFUSE RBC Routine 08/03/2006 10:41 Results fo r this AM CDT procedure are i n the results section. LIPASE Timed 08/03/2006 9:55 AM Results f or this CDT procedure are i n the results section. AMYLASE Timed 08/03/2006 9:55 AM Results f or this CDT procedure are i n the results section. HEMOGRAM DIFFERENTIAL Routine 08/03/2006 5:55 AM Results for this AND PLATELET CDT procedure are i n the results section. BASIC METABOLIC PANEL Routine 08/03/2006 5:55 AM Results for this CDT procedure are i n the results section. HISTOPATHOLOGY Routine 08/03/2006 12:00 Results f or this AM CDT procedure are i n the results section. documented in this encounter Results (ABNORMAL) Hemoglobin (08/03/2006 7:55 PM CDT) athologist Signature Hemoglobin 9.5 (L) 13.3 - 17.7 MISYS g/dL Specimen Anatomical Collection Method Collection Time Receive d Time (Source) Location / / Volume Laterality 08/03/2006 7:55 PM 7 8:00 CDT PM CDT Liudmila Austin MD LAB - BLOOD ORDERABLES Performing Organization Address City/[facility] Phon e Number MISYS (ABNORMAL) Calcium ionized (08/03/2006 7:55 PM CDT) athologist Signature Calcium 3.5 (L) 4.4 - 5.2 MISYS Ionized mg/dL Specimen Anatomical Collection Method Collection Time Receive d Time (Source) Location / / Volume Laterality 08/03/2006 7:55 PM 7 8:00 CDT PM CDT Liudmila Austin MD LAB - BLOOD ORDERABLES Performing Organization Address [facility] Phon e Number MISYS Transfuse RBC (08/03/2006 11:18 AM CDT) [facility] Method Time Signature RED BLOOD CELL Order MISYS ORDER received Comment: Check for Allocated/OK to Umanzor sfuse units Specimen Anatomical Collection Method Collection Time Receive d Time (Source) Location / / Volume Laterality 08/03/2006 11:18 08/03/2006 AM CDT 11:22 AM CDT Liudmila Austin MD LAB - BLOOD BANK PRODUCT O RDER Performing Organization Address [facility] Phon e Number MISYS INR (08/03/2006 10:45 AM CDT) athologist Signature INR 1.01 0.86 - 1.14 MISYS Specimen Anatomical Collection Method Collection Time Receive d Time (Source) Location / / Volume Laterality 08/03/2006 10:45 08/03/2006 AM CDT 10:25 AM CDT Parminder Cade PA-C LAB - BLOOD ORDERABLES Performing Organization Address [facility] Phon e Number MISYS Transfuse RBC (08/03/2006 10:41 AM CDT) [facility] gist Method Time Signature RED BLOOD CELL Order MISYS ORDER received Comment: Check for Allocated/OK to Umanzor sfuse units Specimen Anatomical Collection Method Collection Time Receive d Time (Source) Location / / Volume Laterality 08/03/2006 10:41 08/03/2006 6:37 AM CDT AM CDT Julius Welsh MD LAB - BLOOD BANK PRODUCT ORD ER Performing Organization Address [facility] Phon e Number MISYS (ABNORMAL) Lipase (08/03/2006 9:55 AM CDT) P athologist Signature Lipase 3259 (H) 20 - 250 MISYS U/L Comment: Specimen run with a dilution Specimen Anatomical Collection Method Collection Time Receive d Time (Source) Location / / Volume Laterality 08/03/2006 9:55 AM 7 CDT 10:00 AM CDT Liudmila Austin MD LAB - BLOOD ORDERABLES Performing Organization Address [facility] Phon e Number MISYS (ABNORMAL) Amylase (08/03/2006 9:55 AM CDT) P athologist Signature Amylase 166 (H) 30 - 110 MISYS U/L Specimen Anatomical Collection Method Collection Time Receive d Time (Source) Location / / Volume Laterality 08/03/2006 9:55 AM 7 CDT 10:00 AM CDT Liudmila Austin MD LAB - BLOOD ORDERABLES Performing Organization Address [facility] Phon e Number MISYS (ABNORMAL) Hemogram differential and platelet (08/03/2006 5:55 AM CDT) P athologist Signature MCV 92 78 - 100 fl MISYS MCH 30.4 26.5 - 33.0 MISYS pg MCHC 33.2 31.5 - 36.5 MISYS g/dL RDW 18.8 (H) 10.0 - 15.0 MISYS % WBC 7.8 4.0 - 11.0 MISYS 10e9/L RBC Count 2.40 (L) 4.4 - 5.9 MISYS 10e12/L Hemoglobin 7.3 (LL) 13.3 - 17.7 MISYS g/dL Comment: Results confirmed by repeat test Critical Value called to and read back by GARRET RUTH ON 08/03/06 AT 0622 BY TAYLOR Hematocrit 22.0 (L) 40.0 - 53.0 % MISYS % Neutrophils 67 40 - 75 % MISYS % Lymphocytes 18 (L) 20 - 48 % MISYS % Monocytes 11 0 - 12 % MISYS % Eosinophils 4 0 - 6 % MISYS % Basophils 0 0 - 2 % MISYS Platelet Count 281 150 - 450 10e9/L MISYS Absolute Neutrophil 5.3 1.6 - 8.3 10e9/L MIS YS Absolute Lymphocytes 1.4 0.8 - 5.3 10e9/L DE SYS Absolute Monocytes 0.8 0.0 - 1.3 10e9/L MISY S Absolute Eosinophils 0.3 0.0 - 0.7 10e9/L DE SYS Absolute Basophils 0.0 0.0 - 0.2 10e9/L MISY S Diff Method Automated Method MISYS Specimen (Source) Anatomical Collection Method Collection Time Re ceived Time Location / / Volume Laterality 08/03/2006 5:55 AM 7 CDT Julius Welsh MD LAB - BLOOD ORDERABLES Performing Organization Address City/State/ZIP Code Phon e Number MISYS (ABNORMAL) Basic metabolic panel (08/03/2006 5:55 AM CDT) P athologist Signature Sodium 131 (L) 133 - 144 MISYS mmol/L Potassium 3.5 3.4 - 5.3 MISYS mmol/L Chloride 91 (L) 94 - 109 MISYS mmol/L Carbon Dioxide 26 20 - 32 MISYS mmol/L Glucose 108 60 - 110 MISYS mg/dL Urea Nitrogen 44 (H) 5 - 24 MISYS mg/dL Comment: Reviewed, acceptable Creatinine 2.26 (H) 0.80 - 1.50 mg/dL MISYS GFR Estimate 34 (L) >60 mL/min/1.7m2 MISYS GFR Estimate If Black 41 (L) >60 mL/min/1.7m2 M ISYS Calcium 6.9 (LL) 8.5 - 10.4 mg/dL MISYS Comment: Critical Value called to and read back jessica COMBS(RN) ON MS3 @ 0732 ON 08.03.06 KA Anion Gap 13 6 - 17 mmol/L MISYS Specimen (Source) Anatomical Collection Method Collection Time Re ceived Time Location / / Volume Laterality 08/03/2006 5:55 AM 7 CDT Julius Welsh MD LAB - BLOOD ORDERABLES Performing Organization Address City/State/ZIP Code Phon e Number MISYS Histopathology (08/03/2006 12:00 AM CDT) Component Value Ref Test Analysis Performed At [facility] gist Range Method Time Signature Copath CASE: [id number] ^ COPATH Report Patient Name: SARAH BETH BROWN MR#: [id number] Specimen #: [id number] Collected: 08/03/2006 Received: 08/03/2006 Reported: 08/04/2006 15:09 Ordering Phy(s): CLAUDIA BUSTILLOS Additional Phy(s): JULIUS WELSH SPECIMEN(S): A: Duodenal biopsy B: Gastric antrum biopsy for helicobacter C: Gastroesophageal junction biopsy, 38cm FINAL DIAGNOSIS: A. ??Duodenum, biopsies - No histologic evidence of sprue. ? ?No specific findings. ??No evidence of malignancy. ??See microscopic brooke cription. B. ??Gastric biopsies - Focal minimal congestion and reactiv e changes suggesting minimal reactive gastropathy. ??No evidence of ma lignancy. Helicobacter not identified. C. ??Gastroesophageal junction, biopsy - Glandular gastric a ppearing mucosa with mild chronic and focal minimal acute inflammatio n. ??No intestinal goblet cell metaplasia present. ??No evidence of dysplasia or malignancy. Electronically signed out by: Augustin Morris M.D. CLINICAL HISTORY: Anemia. ??Rule out sprue. ??Rule out Helicobacter. ??Rule ou t Flores' s. GROSS: A. ??The specimen, labeled duodenum, rule out duodenitis, consists of four friable pink-woodruff fragments aggregating to 0.3 x 0.3 x 0 .1 cm. Entirely submitted. B. ??Thespecimen, labeled gastric biopsies, consists of ap proximately five friable pink-woodruff fragments aggregating to 0.4 x 0.3 x l ess than 0.1 cm. ??Entirely submitted. C. ??The specimen, labeled gastroesophageal biopsy at 38 cm , consists of a 0.2 x 0.2 x 0.1 cm pink-woodruff fragment of tissue. ??Audier sabiha submitted. ??TJK/patrizia MICROSCOPIC: A. ??Where the villi are well oriented, there is no histolog ic blunting. No significant inflammation is seen within the villous tips. ??There is no histologic evidence of untreated sprue. ??According to e endoscopy report, biopsies were taken from the duodenal bulb for an er osion although the requisition sheet request is to rule out sprue. ??This biopsy location may explain the various villous height and c hanges histologically seen in the sample. ??Generally, biopsies arjun en distal to the duodenal bulb are recommended to evaluate for sprue as t he bulb can show various non specific histologic changes. ??Clinical and serologic correlation for sprue is suggested. ??No evidence of erosion or ulceration is seen in the biopsy sample. ??No specific acosta es are present. B. ??There is patchy minimal congestion. ??No significant in flammation is present. ??No ulceration is seen. ??Some of the foveolar and surface areas show slight reactive change. ??The findings are histological ly non-specific, but suggest minimal reactive gastropathy which can be associated with chemical and/or reflux type gastritis in the proper clinical and endoscopic setting. ??Helicobacter is not ident ified on Warthin-Starry stained section. C. ??There is a single fragment of glandular - gastric appea ring epithelium present with mild chronic and focal acute inflamm ation. ??Some of the foveolar cells are plump and reactive. ??No intestina l goblet cell metaplasia is identified to diagnose Flores's esophagus. ?? No squamous epithelium is present. KARLEE/kalina 08-04-06 TESTING LAB LOCATION: [facility] [address] [place] ??[address] COLLECTION SITE: Client: 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
--- OUTSIDE RECORDS SUMMARY | 2022-02-12 13:53 | XMS_ITS | Encounter Summary ---
:1960 Author Organization [facility] Address [address] [place] [address] Care Team Providers Name Role Phone Unavailable Primary Care Provider Unavailable Encounter Details Date Type Department Care Team Description 08/02/2006 Historic Results [facility] Tabitha Welsh MD [address] [phone] ([place]) [address] [phone] Social History Tobacco Use Types Packs/Day Years [...] Name Priority Date/Time Associated Diagnosis Comme nts TRANSFUSE RBC STAT 08/02/2006 6:00 PM Results for this CDT procedure are i n the results section. TROPONIN I STAT 08/02/2006 5:58 PM Results f or this CDT procedure are i n the results section. ABO/RH TYPE AND STAT 08/02/2006 5:58 PM Result s for this SCREEN CDT procedure are i n the results section. documented in this encounter Results Transfuse RBC (08/02/2006 6:00 PM CDT) [facility] Method Time Signature RED BLOOD CELL Order MISYS ORDER received Comment: Check for Allocated/OK to Umanzor sfuse units Specimen Anatomical Collection Method Collection Time Receive d Time (Source) Location / / Volume Laterality 08/02/2006 6:00 PM 7 5:44 CDT PM CDT Julius Welsh MD LAB - BLOOD BANK PRODUCT ORD ER Performing Organization Address [facility] Phon e Number MISYS Troponin I (08/02/2006 5:58 PM CDT) P athologist Signature Troponin I <0.04 0.00 - 0.40 MISYS ug/L Specimen Anatomical Collection Method Collection Time Receive d Time (Source) Location / / Volume Laterality 08/02/2006 5:58 PM 7 5:44 CDT PM CDT Julius Welsh MD LAB - BLOOD ORDERABLES Performing Organization Address [facility] Phon e Number MISYS ABO/Rh type and screen (08/02/2006 5:58 PM CDT) [facility] gist Method Time Signature ABO AB MISYS RH(D) Pos MISYS Antibody Neg MISYS Screen Units Ordered 6 MISYS Crossmatch Red Blood MISYS Cells Specimen 08/05/2006 MISYS Expires Unit Number [id number] MISYS Blood Red Blood MISYS Component Type Cells Leukocyte Reduced Status of Unit ISSUED,FINAL MISYS Unit Number [id number] MISYS Blood Red Blood MISYS Component Type Cells Leukocyte Reduced Status of Unit ISSUED,FINAL MISYS Unit Number [id number] MISYS Blood Red Blood MISYS Component Type Cells Leukocyte Reduced Status of Unit ISSUED,FINAL MISYS Unit Number [id number] MISYS Blood Red Blood MISYS Component Type Cells Leukocyte Reduced Status of Unit ISSUED,FINAL MISYS Unit Number [id number] MISYS Blood Red Blood MISYS Component Type Cells Leukocyte Reduced Status of Unit REL FROM MISYS ALLOC Unit Number [id number] MISYS Blood Red Blood MISYS Component Type Cells Leukocyte Reduced Status of Unit REL FROM MISYS ALLOC Specimen Anatomical Collection Method Collection Time Receive d Time (Source) Location / / Volume Laterality 08/02/2006 5:58 PM 7 5:44 CDT PM CDT Julius Welsh MD LAB - BLOOD BANK TEST ORDER Performing Organization Address City/[facility] Phon e Number MISYS documented in this encounter Visit Diagnoses Not on filedocumented in this encounter Additional Health Concerns Infection Onset Date Last Indicated Resolved Time MRSA-Contact IsolationComment: 0 04/26/2021 11:03 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
--- OUTSIDE RECORDS SUMMARY | 2022-02-12 13:53 | XMS_ITS | Encounter Summary ---
:1960 Author Organization [facility] Address [address] [place] [address] Care Team Providers Name Role Phone Unavailable Primary Care Provider Unavailable Reason for Referral Specialty Diagnoses / Procedures Referred By Contact Refer red To Contact Tristan Egan ph, [place] [id number] [place] [address] [phone] Referral ID Status Reason Start Date Expiration Date Visits Requ ested Visits Authorized Encounter Details Date Type Department Care Team Description 08/19/2004 Orders Only [facility] Tristan Egan SIS NOT YET Clinic [place] MD DEFINED (Primary Dx) [address] [facility] [address] [place] [address] [phone] Social History Tobacco Use Types Packs/Day Years Used Date Smoking Tobacco: Never Assessed Sex Assigned at Date Recorded Not on file documented as of this encounter Plan of Treatment Not on filedocumented as of this encounter Procedures Procedure Name Priority Date/Time Associated Diagnosis Comme nts [facility] Routine 08/19/2004 DIAGNOSIS NOT YET DEFINED documented in this encounter Results [facility]ART (08/19/2004) Specimen (Source) Anatomical Location Collection Method / Collectio n Time Received Time / Laterality Volume 08/19/2004 Narrative This result has an attachment that is no t available. 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
--- OUTSIDE RECORDS SUMMARY | 2022-02-12 13:53 | XMS_ITS | Encounter Summary ---
:1960 Author Organization [facility] Address [address] [place] [address] Care Team Providers Name Role Phone Unavailable Primary Care Provider Unavailable Encounter Details Date Type Department Care Team Description 08/03/2006 Historic Notes INTERFACED REPORT Interface, Transcript on, Social History Tobacco Use Types Packs/Day Years Used Date Smoking Tobacco: Never Alcohol Use Standard Drinks/Week Comments Yes 0 (1 standard drink = 0.6 oz pure alcoho l) socially approx 5 drinks/wk Sex Assigned at Date Recorded Not on file documented as of this encounter Progress Notes Interface, Solar Thermal Technician - 07/12/2010 5:37 PM CDT Hgb 7.3, 2 units of packed cells ordered and started after available from lab. At 1230 pt. to endo.via stretcher, blood infusing(2nd unit). [Signature] Author:PAULO LOERA (OZZIE) [Signed 16:08] documented in this encounter Plan of Treatment Not on filedocumented as of this encounter Visit Diagnoses Not on filedocumented in this encounter Additional Health Concerns Infection Onset Date Last Indicated Resolved Time MRSA-Contact IsolationComment: 0 04/26/2021 11:03 AM TAX RECORD CLERK Infection 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
--- OUTSIDE RECORDS SUMMARY | 2022-02-12 13:53 | XMS_ITS | Encounter Summary ---
:1960 Author Organization [facility] Address [address] [place] [address] Care Team Providers Name Role Phone No Ref-Primary, Physician Primary Care Provider [phone] Juan Farias MD Unavailable Edilia Trejo APRN WINE FERMENTER Unavailable Glendy vailable Juan Farias MD Unavailable Denise Connell-C Unavailable [phone] Edilia Trejo APRN WINE FERMENTER Unavailable Glendy vailable Denise Connell-C Unavailable [phone] Juan Farias MD Primary Care Provider Dana Barry PA-C Unavailable [phone] Encounter Details Date Type Department Care Team Description 08/17/2001 Office Visit-[facility] Heart Unknown, Iva lockett MD [address] [address] Social History Tobacco Use Types Packs/Day Years Used Date Smoking Tobacco: Never Assessed Sex Assigned at Date Recorded Not on file documented as of this encounter Progress Notes Unknown, DoctorMD - 08/29/2001 11:17 AM CDT DATE: 08/03/2001 SARAH BETH BROWN DATE OF : 1960 AGE: [age] years old CURRENT DIAGNOSES 1. - Hypertension, benign, 401.1 ALLERGIES MEDICATIONS 1. Vitamin and Mineral Supplement Multiple Vitamins with Minerals, 1 p.o. q.d. 2. Zestril 20 Mg, 1 p.o. q.d. CHIEF COMPLAINTS HISTORY OF PRESENT ILLNESS I had the opportunity to see Mr. Sarah Beth Brown in Cardiology Clinic today for evaluation of hypertension. Mr. Brown is a 40-year-old gentleman who has had elevated blood pressures in the past which did not respond to suggestions for diet and exercise modifications. Since that time he has been on Zestril, initially at 10 and subsequently at 20 mg per day with very good blood pressure control. At this time he continues to be asymptomatic. He denies chest pain, lightheadedness, shortness of breath, and other complaints. His blood pressure has been consistently good when he checks this at local drug stores. Today his blood pressure is 124/74, heart rate 76. He is comfortable for the examination and has a normal examination otherwise. 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 ABDOMINAL denies change in bowel habits, dyspepsia, [...] hayfever PHYSICAL EXAMINATION VITAL SIGNS: Blood Pressure: CONSTITUTIONAL cooperative, alert and oriented,well developed, well nourished, in no acute distress. SKIN warm and dry to touch, no apparent skin lesions, or masses noted. HEAD normocephalic, atraumatic EYES Pupils equal and round, conjunctivae and lids unremarkable, sclera white, no xanthalasma ENT no pallor or cyanosis, dentition good NECK carotid pulses are full and equal [...] time, person and place. MEDICATIONS UPDATED TODAY: IMPRESSIONS/PLAN Mr. Sarah Beth Brown is a 40-year-old gentleman with mild essential hypertension and no other significant cardiac risk factors. He has undergone a stress echocardiogram in the past which was normal. He requests a fasting lipid panel be drawn because this has not been done in several years. I certainly feel this is reasonable for assessment of cardiac risks. I will refill his Zestril today and see him again in one year. Referring Physician: JAX Farias M.D. 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 Infection erroneous MRSA 05/13/2021 05/13/2021 Rule Out C-difficile 12/06/2021 12/06/2021 12/07/2021 8:46 AM CDT documented as of this encounter Care Teams Oil Well Cable Tool Driller Relationship Specialty Start Date End Date No Ref-Primary, PCP - General 07/03/14 12/03/21 Physician Juan Farias MD PCP - General Cardiovascular Disease 12/04/21 [address] [place] [address] Juan Farias MD Assigned Heart and 02/14/20 10/03/[address] Vascular Provider [address] [place] [id number] Maya, Assigned Heart and 10/04/20 Edilia Chapman APRN Vascular Provider GUILHERME NO INFO AVAILABLE 02/10/2022 Juan Farias MD Assigned Heart and 04/04/21 07/31/21 [address] Vascular Provider [address] [place], [place] [address] Denise Connell Physician Director Of Outpatient Services Cardiovascular Disease 08/12/21 MARIETTA Watson [address] [place], [place] [address] Maya, Assigned Heart and 08/01/21 2 Edilia Chapman APRN Vascular Provider WINE FERMENTER NO INFO AVAILABLE 02/10/2022 Denise Connell Assigned Heart and 08/22/21 01/14/22 MARIETTA Watson Vascular Provider [address] [place], [place] [id number] Dana Barry Assigned Heart and 01/15/22 MARIETTA Teague Vascular Provider [address] [place], [place] [id number] documented as of this encounter
--- OUTSIDE RECORDS SUMMARY | 2022-02-12 13:53 | XMS_ITS | Encounter Summary ---
:1960 Author Organization [facility] Address [address] [place] [id number] Care Team Providers Name Role Phone No Ref-Primary, Physician Primary Care Provider [phone] Juan Farias MD Unavailable Edilia Trejo APRN WORT EXTRACTOR Unavailable Glendy vailable Juan Farias MD Unavailable Denise Connell-C Unavailable [phone] Edilia Trejo APRN WORT EXTRACTOR Unavailable Glendy vailable Denise Connell-C Unavailable [phone] Juan Farias MD Primary Care Provider Dana Barry PA-C Unavailable [phone] Encounter Details Date Type Department Care Team Description 07/29/2005 Office Visit-[facility] Heart Unknown, Iva lockett MD [address] [id number] Social History Tobacco Use Types Packs/Day Years Used Date Smoking Tobacco: Never Assessed Sex Assigned at Date Recorded Not on file documented as of this encounter Progress Notes Unknown, DoctorMD - 08/02/2005 5:56 AM CDT Progress Note Created by: Juan Farias M.D. DATE: 07/29/2005 SARAH BETH BROWN DATE OF : 1960 AGE: [age] years old Referring Physician: JEROME MORENO Referring Clinic: [facility] CURRENT DIAGNOSES 1. - Hypercholesterolemia, 272.0 2. - Hypertension, benign, 401.1 ALLERGIES NKA MEDICATIONS (including any changes made today) 1. Lisinopril 20 Mg, 1 p.o. q.d. 2. Calcium 600 mg, 1 p.o. q.d. 3. Lipitor 40 mg, 1 p.o. q.d. 4. Vitamin and Mineral Supplement Multiple Vitamins with Minerals, 1 p.o. q.d. CHIEF COMPLAINTS Review labs HISTORY OF PRESENT ILLNESS I had the opportunity to see Mr. Sarah Beth Brown in Cardiology Clinic today for reevaluation of hypertension and dyslipidemia. He has no known coronary artery disease. He has no concerning cardiac symptoms of heart disease at this time. He has tolerated his medications reasonably well, although he says from time to time he does have some nausea and vomiting, especially after eating more healthy meals in the morning. This would include eating a salad, at which time he sometimes has some nausea and vomiting around noon. He is seemingly adjusting to the Lipitor and has no muscle aching pains. His most recent laboratory studies on 07/25/05 showed a total cholesterol of 223, HDL 93, LDL 111, and triglycerides 95, with a ratio of 2.4. On examination today his blood pressure was 134/94, heart rate 100, and weight 180 pounds. His lungsare clear. Heart rhythm is regular. He has no cardiac murmurs. 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 Weight- 180.00 lbs. Height- 69.00 Temperature- .00 CONSTITUTIONAL cooperative, [...] UPDATED TODAY: Calcium 600 mg, 1 p.o. q.d., 0 Lipitor 40 mg, 1 p.o. q.d., #30 MEDICATION STOPPED TODAY: Calcium 600 mg IMPRESSIONS/PLAN IMPRESSION: Mr. Sarah Beth Brown is a 44-year-old gentleman whom I am seeing for primary prevention of coronary artery disease. He has a history of hypertension and dyslipidemia. He has perhaps some intolerance of Lipitor, although it is unclear to me. He has some occasional nausea and vomiting for unknown reasons. He wishes to continue his Lipitor at this point and does not wish to switch medications. His liver function tests look okay, and Lipitor is doing the job for his cholesterol so I think it isreasonable to stick with that as long as he wishes to do so. If he continues to have problems I would switch him to Crestor 10 mg q.d. I did give him a prescription for Lipitor 40 mg and he will be taking 1/2 tablet q.d. His blood pressure is a little on the high side today in the office, although hisheart rate is also quite high and I suspect it is situational. His blood pressure outside the doctor's office has been excellent. I will plan to see him back again in one year and have him repeat a lipid panel in six months and twelve months. TODAYS ORDERS 1. Return Visit 1 year 2. Lipid profile/ALT 6 months 3. Lipid profile/ALT 1 year Juan Farias M.D. documented in this encounter Plan of Treatment Not on filedocumented as of this encounter Visit Diagnoses Not on filedocumented in this encounter Additional Health Concerns Infection Onset Date Last Indicated Resolved Time MRSA-Contact IsolationComment: 0 04/26/2021 11:03 AM WOMEN'S STUDIES LECTURER Infection erroneous MRSA 05/13/2021 05/13/2021 Rule Out C-difficile 12/06/2021 12/06/2021 12/07/2021 8:46 AM CDT documented as of this encounter Care Teams Patternmaker Pressure Cast Relationship Specialty Start Date End Date No Ref-Primary, PCP - General 07/03/14 12/03/21 Physician Juan Farias MD PCP - General Cardiovascular Disease 12/04/[address] [place] [id number] Juan Farias MD Assigned Heart and 02/14/20 10/03/[address] Vascular Provider [address] [place] [id number] Maya, Assigned Heart and 10/04/20 Edilia Chapman APRN Vascular Provider WORT EXTRACTOR NO INFO AVAILABLE 02/10/2022 Juan Farias MD Assigned Heart and 04/04/21 07/31/[address] Vascular Provider [address] [place] [id number] Denise Connell Physician Auto Design Checker Cardiovascular Disease 08/12/21 [place] Watson [address] [place] [id number] Maya Assigned Heart and 08/01/21 2 Edilia Chapman APRN Vascular Provider WORT EXTRACTOR NO INFO AVAILABLE 02/10/2022 Denise Connell Assigned Heart and 08/22/21 01/14/22 [place] Watson Vascular Provider [address] [place] [id number] Dana Barry Assigned Heart and 01/15/22 [place] Teague Vascular Provider [address] [place] [id number] documented as of this encounter
--- NOTE | 2022-02-12 14:16 | ED.NURSE ---
wants ro go home. 02 sats lowered when [id number]%. sats to 97% when awake and talking. dr del toro was in to talk to him about his alcohol intake-reports that he had a glass of wine today. lives with his parents. states that his boss will pick him up.
--- NOTE | 2022-02-17 13:27 | ED.NURSE ---
Pt's manager alliance, Kellee Rousseau, at [employer] called to request work note be faxed to her. Forwarded call to medical records.
== END 2022-02-12 14:47 | disposition home or self-care (01) ==
PROVIDERS: Emergency Provider Family Medicine
DX: S50.02XA Contusion of left elbow, initial encounter (principal); S60.212A Contusion of left wrist, initial encounter; S00.83XA Contusion of other part of head, initial encounter; W01.0XXA Fall on same level from slipping, tripping and stumbling without subsequent striking against object, initial encounter; Y93.9 Activity, unspecified; Y92.9 Unspecified place or not applicable; Y99.9 Unspecified external cause status; F10.129 Alcohol abuse with intoxication, unspecified
CPT/HCPCS: 36415; 70486; 73080; 80048; 80076; 82077; 85025; 99284

== ENCOUNTER 2022-03-22 12:45 | Inpatient (IN) | payer BC, SELFPAY ==
[2022-03-22] VITALS (19 sets, daily range): BP systolic 117–153; BP diastolic 81–106; PULSE 13–153; RESP 18–132; TEMP 36.5–38.8; O2SAT 92–97; BMI 29.6
--- NOTE | 2022-03-22 13:32 | ED.CHESTPAIN ---
HPI - Chest Pain General Chief Complaint: Chest Pain <Dontrell Lawrence MD - Last Filed: 03/25/22 11:46> Stated Complaint: Chest pain <Dontrell Lawrence MD - Last Filed: 03/25/22 11:46> Time Seen by Provider: 03/22/22 13:25 <Dontrell Lawrence MD - Last Filed: 03/25/22 11:46> Related Data Home Medications: Home Medications Medication Instructions Recorded Confirmed amlodipine 10 mg tablet 10 mg PO DAILY 02/12/22 03/22/22 metoprolol succinate 50 mg 50 mg PO DAILY 02/12/22 03/22/22 tablet,extended release 24 hr aspirin 81 mg tablet,delayed 81 mg PO DAILY 03/22/22 03/22/22 release (Adult Aspirin Regimen) atorvastatin 40 mg tablet 40 mg PO HS 03/22/22 03/22/22 magnesium oxide 400 mg (241.3 mg 400 mg PO BID 03/22/22 03/22/22 magnesium) tablet omeprazole 40 mg capsule,delayed 40 mg PO DAILY 03/22/22 03/22/22 release <Dontrell Lawrence MD - Last Filed: 03/25/22 11:46> Allergies/Adverse Reactions: Allergies Allergy/AdvReac Type Severity Reaction Status Date / Time lisinopril Allergy Verified 03/23/22 07:41 <Dontrell Lawrence MD - Last Filed: 03/25/22 11:46> [facility] Medical History: Medical History (Updated 03/24/22 @ 09:53 by Stephanie Gooden MD) Alcohol withdrawal delirium Alcoholic gastritis Alcoholic ketoacidosis Anemia Gout Hyperlipidemia Hypertension Pancreatitis <Dontrell Lawrence MD - Last Filed: 03/25/22 11:46> Family History: Family History (Updated 03/22/22 @ 20:26 by Adela Westfall MD) Father Diabetes High blood pressure <Dontrell Lawrence MD - Last Filed: 03/25/22 11:46> Social History: Social History (Updated 03/22/22 @ 20:27 by Adela Westfall MD) Narrative: Nonsmoker. Drinks 6-7 three ounce glasses of noreen per day. Was sober for about 12 years starting around 2009. Denies recreational drugs. FULL CODE. Highest level of school completed/degree received: high school graduate Smoking Status: Never smoker Do you use any of these nicotine containing products: None Second hand tobacco smoke exposure: No How often do you have a drink containing alcohol: 4 or more times a week Alcohol type: hard liquor Alcohol type details: bashirchito How many standard drinks containing alcohol do you have on a typical day: 7 to 9 How often do you have six or more drinks on one occasion: Daily or almost daily AUDIT-C Alcohol total score: 11 Non-prescribed substance use: denies use Caffeine: Yes (3-4cups coffee daily) service: No <Dontrell Lawrence MD - Last Filed: 03/25/22 11:46> Exam Const Vital Signs, click to edit/add: Vital Signs - 24 hr 03/22/22 13:19 03/22/22 14:43 03/22/22 15:00 Temperature 97.7 F Pulse Rate [Left Apical] Pulse Rate [Right Pulse Oximeter] 143 H 128 H 13 L Respiratory Rate 18 20 26 H Blood Pressure [Right Arm] Blood Pressure [Right Upper Arm] 120/85 146/106 H 153/98 H Pulse Oximetry 97 96 97 Oxygen Delivery Method Room Air Room Air Room Air 03/22/22 15:30 03/22/22 17:00 03/22/22 16:11 Temperature Pulse Rate [Left Apical] Pulse Rate [Right Pulse Oximeter] 130 H 135 H Respiratory Rate 24 19 132 H Blood Pressure [Right Arm] Blood Pressure [Right Upper Arm] 141/93 H 130/87 Pulse Oximetry 97 96 97 Oxygen Delivery Method Room Air Room Air Room Air 03/22/22 16:30 03/22/22 18:30 03/22/22 19:00 Temperature Pulse Rate [Left Apical] Pulse Rate [Right Pulse Oximeter] 127 H 140 H 142 H Respiratory Rate 22 21 30 H Blood Pressure [Right Arm] Blood Pressure [Right Upper Arm] 117/92 H 141/92 H 151/92 H Pulse Oximetry 95 96 95 Oxygen Delivery Method Room Air Room Air 03/22/22 17:30 03/22/22 18:11 03/22/22 20:00 Temperature 100.7 F H Pulse Rate [Left Apical] 143 H Pulse Rate [Right Pulse Oximeter] 149 H 141 H Respiratory Rate 31 H 24 28 H Blood Pressure [Right Arm] 129/102 H Blood Pressure [Right Upper Arm] 144/100 H 140/89 H Pulse Oximetry 96 96 96 Oxygen Delivery Method Room Air Room Air Room Air 03/22/22 20:04 03/22/22 20:05 03/22/22 20:33 Temperature 100.7 F H 100.7 F H Pulse Rate [Left Apical] 143 H 143 H Pulse Rate [Right Pulse Oximeter] Respiratory Rate 28 H 28 H Blood Pressure [Right Arm] 129/102 H 129/102 H Blood Pressure [Right Upper Arm] Pulse Oximetry 96 96 96 Oxygen Delivery Method Room Air Room Air 03/22/22 21:05 Temperature 100.5 F H Pulse Rate [Left Apical] 149 H Pulse Rate [Right Pulse Oximeter] Respiratory Rate 28 H Blood Pressure [Right Arm] 146/95 H Blood Pressure [Right Upper Arm] Pulse Oximetry 96 Oxygen Delivery Method Room Air <Dontrell Lawrence MD - Last Filed: 03/25/22 11:46> Vital Signs - 24 hr 03/22/22 13:19 03/22/22 14:43 03/22/22 15:00 Temperature 97.7 F Pulse Rate [Left Apical] Pulse Rate [Right Pulse Oximeter] 143 H 128 H 13 L Respiratory Rate 18 20 26 H Blood Pressure [Right Arm] Blood Pressure [Right Upper Arm] 120/85 146/106 H 153/98 H Pulse Oximetry 97 96 97 Oxygen Delivery Method Room Air Room Air Room Air 03/22/22 15:30 03/22/22 17:00 03/22/22 16:11 Temperature Pulse Rate [Left Apical] Pulse Rate [Right Pulse Oximeter] 130 H 135 H Respiratory Rate 24 19 132 H Blood Pressure [Right Arm] Blood Pressure [Right Upper Arm] 141/93 H 130/87 Pulse Oximetry 97 96 97 Oxygen Delivery Method Room Air Room Air Room Air 03/22/22 16:30 03/22/22 18:30 03/22/22 19:00 Temperature Pulse Rate [Left Apical] Pulse Rate [Right Pulse Oximeter] 127 H 140 H 142 H Respiratory Rate 22 21 30 H Blood Pressure [Right Arm] Blood Pressure [Right Upper Arm] 117/92 H 141/92 H 151/92 H Pulse Oximetry 95 96 95 Oxygen Delivery Method Room Air Room Air 03/22/22 17:30 03/22/22 18:11 03/22/22 20:00 Temperature 100.7 F H Pulse Rate [Left Apical] 143 H Pulse Rate [Right Pulse Oximeter] 149 H 141 H Respiratory Rate 31 H 24 28 H Blood Pressure [Right Arm] 129/102 H Blood Pressure [Right Upper Arm] 144/100 H 140/89 H Pulse Oximetry 96 96 96 Oxygen Delivery Method Room Air Room Air Room Air 03/22/22 20:04 03/22/22 20:05 03/22/22 20:33 Temperature 100.7 F H 100.7 F H Pulse Rate [Left Apical] 143 H 143 H Pulse Rate [Right Pulse Oximeter] Respiratory Rate 28 H 28 H Blood Pressure [Right Arm] 129/102 H 129/102 H Blood Pressure [Right Upper Arm] Pulse Oximetry 96 96 96 Oxygen Delivery Method Room Air Room Air 03/22/22 21:05 Temperature 100.5 F H Pulse Rate [Left Apical] 149 H Pulse Rate [Right Pulse Oximeter] Respiratory Rate 28 H Blood Pressure [Right Arm] 146/95 H Blood Pressure [Right Upper Arm] Pulse Oximetry 96 Oxygen Delivery Method Room Air <Korina Sevilla MD - Last Filed: 03/22/22 21:46> Course Course Hospital Course: Discussed with the patient his D-dimer is elevated, we will get a chest CT, I am also worried about this being were in a keys, with the gait abnormalities any does have some fine nystagmus when I recheck him here now. 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 I spoke to my ER colleague will be taking over care, I had already communicated this with the inpatient physician that he may require admission and IV thiamine. <Dontrell Lawrence MD - Last Filed: 03/25/22 11:46> Reevaluation(s) Reevaluation #1: Patient did have his CT scan with contrast of the chest, by my review this did show pulmonary embolism on the right. I did look with the ultrasound, he had hyperdynamic heart, I did not see evidence of dilation of the right ventricle or atrium. His troponins were negative. The final radiology report is as follows: IMPRESSION: 1. Positive for acute pulmonary emboli involving segmental and subsegmental branches of the right upper lobe and right lower lobe. No evidence of right heart strain or pulmonary infarct. 2. 2 mm noncalcified pulmonary nodule in the left upper lobe. Please see follow-up guidelines below. 3. Severe hepatic steatosis. 4. Multiple bilateral renal cysts suggestive of polycystic kidney disease. 5. Findings discussed with Korina Sevilla at 5:50 p.m. on 03/22/2022. Patient was started on Xarelto orally here. He did have continued tachycardia, and shaking consistent with withdrawal symptoms. I had talked with Dr. Westfall about a withdrawal protocol and she had initially suggested phenobarbital, however, we were not able to get that from the pharmacy in a timely manner so he did receive another mg of Ativan instead. I also ordered another L of normal saline given ongoing tachycardia. He received his thiamine IV per Dr. Lawrence given concerns about Wernicke's. His course was otherwise uncomplicated while here in the emergency department. Will be admitted to the floor for further care. <Korina Sevilla MD - Last Filed: 03/22/22 21:46> Vital Signs Vital signs: Initial Vital Signs Temperature 97.7 F 03/22/22 13:19 Temperature Source Temporal Artery Scan 03/22/22 13:19 Pulse Rate 143 H 03/22/22 13:19 Respiratory Rate 18 03/22/22 13:19 Blood Pressure 120/85 03/22/22 13:19 Blood Pressure Mean 96 03/22/22 13:19 Blood Pressure Position Sitting 03/22/22 13:19 Pulse Oximetry 97 03/22/22 13:19 Oxygen Delivery Method 03/22/22 13:19 Vital Signs Temperature 97.7 F 03/22/22 13:19 Pulse Rate 143 H 03/22/22 13:19 Respiratory Rate 18 03/22/22 13:19 Blood Pressure 120/85 03/22/22 13:19 Pulse Oximetry 97 03/22/22 13:19 Oxygen Delivery Method 03/22/22 13:19 Temperature 98 F 03/24/22 10:30 Pulse Rate 80 03/24/22 10:30 Respiratory Rate 22 03/24/22 10:30 Blood Pressure 104/84 03/24/22 10:30 Pulse Oximetry 100 03/24/22 10:30 Oxygen Delivery Method 03/24/22 10:30 Oxygen Flow Rate 4 03/24/22 08:00 Fraction of Inspired Oxygen 45 03/24/22 08:53 <Dontrell Lawrence MD - Last Filed: 03/25/22 11:46> Initial Vital Signs Temperature 97.7 F 03/22/22 13:19 Temperature Source Temporal Artery Scan 03/22/22 13:19 Pulse Rate 143 H 03/22/22 13:19 Respiratory Rate 18 03/22/22 13:19 Blood Pressure 120/85 03/22/22 13:19 Blood Pressure Mean 96 03/22/22 13:19 Blood Pressure Position Sitting 03/22/22 13:19 Pulse Oximetry 97 03/22/22 13:19 Oxygen Delivery Method 03/22/22 13:19 Vital Signs Temperature 97.7 F 03/22/22 13:19 Pulse Rate 143 H 03/22/22 13:19 Respiratory Rate 18 03/22/22 13:19 Blood Pressure 120/85 03/22/22 13:19 Pulse Oximetry 97 03/22/22 13:19 Oxygen Delivery Method 03/22/22 13:19 Temperature 98 F 03/24/22 10:30 Pulse Rate 80 03/24/22 10:30 Respiratory Rate 22 03/24/22 10:30 Blood Pressure 104/84 03/24/22 10:30 Pulse Oximetry 100 03/24/22 10:30 Oxygen Delivery Method 03/24/22 10:30 Oxygen Flow Rate 4 03/24/22 08:00 Fraction of Inspired Oxygen 45 03/24/22 08:53 <Korina Sevilla MD - Last Filed: 03/22/22 21:46> MDM - Chest Pain MDM Narrative Medical decision making narrative: During the evaluation of this patient I considered multiple differential diagnosis is. The life-threatening differential diagnosis include coronary disease/[place], pulmonary embolism, pneumothorax, pneumonia, and aortic dissection. Other differential diagnosis included but were not limited to pericarditis, myocarditis, chest wall pain, GERD, esophageal rupture, rib fracture contusion, pleurisy, as well as other etiologies. <Dontrell Lawrence MD - Last Filed: 03/25/22 11:46> Medical Records Data Attestation: I reviewed the patient's medical records. <Dontrell Lawrence MD - Last Filed: 03/25/22 11:46> Lab Data Attestation: I reviewed the patient's lab results. <Dontrell Lawrence MD - Last Filed: 03/25/22 11:46> Labs: Lab Results 03/22/22 03/22/22 03/22/22 Range/Units 13:43 14:05 14:15 WBC 4.78 (4.50-11.00) K/uL RBC 4.21 L (4.30-5.90) m/uL Hgb 13.1 L (13.5-17.5) gm/dL Hct 39.0 (37.0-53.0) % MCV 93 (80-100) fL MCH 31 (26-34) pg MCHC 34 (32-36) gm/dL RDW Coeff of Chantel 15.3 (11.5-15.5) % Plt Count 164 (140-440) K/uL Neut % (Auto) 73.4 H (42.0-72.0) % Lymph % (Auto) 13.0 L (20-44) % [place] % (Auto) 12.6 H (0.0-11.0) % Eos % (Auto) 0.0 (0.0-7.0) % Baso % (Auto) 0.6 (0.0-3.0) % Neut # (Auto) 3.50 (1.7-7.0) K/uL Lymph # (Auto) 0.60 L (0.90-2.90) K/uL [place] # (Auto) 0.60 (0.00-0.90) K/UL Eos # (Auto) 0.00 (0.00-0.50) K/uL Baso # (Auto) 0.03 (0.00-0.30) K/uL Abs Immat Gran (auto) 0.02 (0.00-0.30) K/uL Imm/Tot Granulo (auto) 0.4 % INR (0.91-1.10) APTT (23-33) Seconds D-Dimer Quant (PE/DVT) (0.00-0.50) ug/ml Sodium (135-149) mmol/L Potassium (3.6-5.1) mmol/L Chloride (96-114) mmol/L Carbon Dioxide (20-32) mmol/L BUN (7-30) mg/dL Creatinine (0.5-1.5) mg/dL Estimated Creat Clear Estimated GFR ml/min Glucose (60-115) mg/dL Calcium (8.4-10.6) mg/dL Total Bilirubin (0.1-1.5) mg/dL Direct Bilirubin (0.0-0.5) mg/dL AST (12-35) U/L ALT (4-50) U/L Alkaline Phosphatase (40-150) U/L Total Protein (6.0-8.3) g/dL Albumin (3.3-5.0) g/dL Urine Color (Yellow) Urine Appearance (Clear) Urine pH (5.0-8.5) Ur Specific [place] (1.000-1.030) Urine Protein (Negative) Urine Glucose (UA) (Negative) Urine Ketones (Negative) Urine Blood (Negative) Urine Nitrite (Negative) Urine Bilirubin (Negative) Urine Urobilinogen (0.2-1.0) Ur Leukocyte Esterase (Negative) Urine RBC (0-2) Urine WBC (0-5) Ur Squamous Epith Cells (None-Few) Urine Bacteria (None) Urine Mucus (None) Urine Opiates Screen (Negative) Ur Oxycodone Screen (Negative) Urine Methadone Screen (Negative) Ur Propoxyphene Screen (Negative) Ur Barbiturates Screen (Negative) U Tricyclic Antidepress (Negative) Ur Phencyclidine Scrn (Negative) Ur Amphetamines Screen (Negative) U Methamphetamines Scrn (Negative) U Benzodiazepines Scrn (Negative) Urine Cocaine Screen (Negative) U Marijuana (THC) Screen (Negative) Ur Drug Screen Comment Ethyl Alcohol (0.01-0.03) % SARS-CoV-2 (PCR) Negative SARS-CoV-2 (Negative) Influenza Type A (PCR) Negative PCR FLU A (Negative) Influenza Type B (PCR) Negative PCR FLU B (Negative) RSV (PCR) Negative PCR RSV (Negative) POC Troponin I 0.02 (0.01-0.04) ng/ml 03/22/22 03/22/22 03/22/22 Range/Units 14:15 14:15 14:15 WBC (4.50-11.00) K/uL RBC (4.30-5.90) m/uL Hgb (13.5-17.5) gm/dL Hct (37.0-53.0) % MCV (80-100) fL MCH (26-34) pg MCHC (32-36) gm/dL RDW Coeff of Chantel (11.5-15.5) % Plt Count (140-440) K/uL Neut % (Auto) (42.0-72.0) % Lymph % (Auto) (20-44) % [place] % (Auto) (0.0-11.0) % Eos % (Auto) (0.0-7.0) % Baso % (Auto) (0.0-3.0) % Neut # (Auto) (1.7-7.0) K/uL Lymph # (Auto) (0.90-2.90) K/uL [place] # (Auto) (0.00-0.90) K/UL Eos # (Auto) (0.00-0.50) K/uL Baso # (Auto) (0.00-0.30) K/uL Abs Immat Gran (auto) (0.00-0.30) K/uL Imm/Tot Granulo (auto) % INR 0.94 (0.91-1.10) APTT 27 (23-33) Seconds D-Dimer Quant (PE/DVT) 3.48 H (0.00-0.50) ug/ml Sodium 142 (135-149) mmol/L Potassium 4.0 (3.6-5.1) mmol/L Chloride 101 (96-114) mmol/L Carbon Dioxide 18 L (20-32) mmol/L BUN 16 (7-30) mg/dL Creatinine 1.1 (0.5-1.5) mg/dL Estimated Creat Clear 69.95 Estimated GFR 77 ml/min Glucose 126 H (60-115) mg/dL Calcium 7.8 L (8.4-10.6) mg/dL Total Bilirubin 1.0 (0.1-1.5) mg/dL Direct Bilirubin 0.4 (0.0-0.5) mg/dL AST 206 H (12-35) U/L ALT 51 H (4-50) U/L Alkaline Phosphatase 103 (40-150) U/L Total Protein 8.0 (6.0-8.3) g/dL Albumin 4.6 (3.3-5.0) g/dL Urine Color (Yellow) Urine Appearance (Clear) Urine pH (5.0-8.5) Ur Specific [place] (1.000-1.030) Urine Protein (Negative) Urine Glucose (UA) (Negative) Urine Ketones (Negative) Urine Blood (Negative) Urine Nitrite (Negative) Urine Bilirubin (Negative) Urine Urobilinogen (0.2-1.0) Ur Leukocyte Esterase (Negative) Urine RBC (0-2) Urine WBC (0-5) Ur Squamous Epith Cells (None-Few) Urine Bacteria (None) Urine Mucus (None) Urine Opiates Screen (Negative) Ur Oxycodone Screen (Negative) Urine Methadone Screen (Negative) Ur Propoxyphene Screen (Negative) Ur Barbiturates Screen (Negative) U Tricyclic Antidepress (Negative) Ur Phencyclidine Scrn (Negative) Ur Amphetamines Screen (Negative) U Methamphetamines Scrn (Negative) U Benzodiazepines Scrn (Negative) Urine Cocaine Screen (Negative) U Marijuana (THC) Screen (Negative) Ur Drug Screen Comment Ethyl Alcohol 0.23 H (0.01-0.03) % SARS-CoV-2 (PCR) (Negative) Influenza Type A (PCR) (Negative) Influenza Type B (PCR) (Negative) RSV (PCR) (Negative) POC Troponin I (0.01-0.04) ng/ml 03/22/22 03/22/22 03/22/22 Range/Units 15:25 16:01 20:00 WBC (4.50-11.00) K/uL RBC (4.30-5.90) m/uL Hgb (13.5-17.5) gm/dL Hct (37.0-53.0) % MCV (80-100) fL MCH (26-34) pg MCHC (32-36) gm/dL RDW Coeff of Chantel (11.5-15.5) % Plt Count (140-440) K/uL Neut % (Auto) (42.0-72.0) % Lymph % (Auto) (20-44) % [place] % (Auto) (0.0-11.0) % Eos % (Auto) (0.0-7.0) % Baso % (Auto) (0.0-3.0) % Neut # (Auto) (1.7-7.0) K/uL Lymph # (Auto) (0.90-2.90) K/uL [place] # (Auto) (0.00-0.90) K/UL Eos # (Auto) (0.00-0.50) K/uL Baso # (Auto) (0.00-0.30) K/uL Abs Immat Gran (auto) (0.00-0.30) K/uL Imm/Tot Granulo (auto) % INR (0.91-1.10) APTT (23-33) Seconds D-Dimer Quant (PE/DVT) (0.00-0.50) ug/ml Sodium (135-149) mmol/L Potassium (3.6-5.1) mmol/L Chloride (96-114) mmol/L Carbon Dioxide (20-32) mmol/L BUN (7-30) mg/dL Creatinine (0.5-1.5) mg/dL Estimated Creat Clear Estimated GFR ml/min Glucose (60-115) mg/dL Calcium (8.4-10.6) mg/dL Total Bilirubin (0.1-1.5) mg/dL Direct Bilirubin (0.0-0.5) mg/dL AST (12-35) U/L ALT (4-50) U/L Alkaline Phosphatase (40-150) U/L Total Protein (6.0-8.3) g/dL Albumin (3.3-5.0) g/dL Urine Color Yellow (Yellow) Urine Appearance Clear (Clear) Urine pH 5.5 (5.0-8.5) Ur Specific [place] 1.025 (1.000-1.030) Urine Protein 3+ A (Negative) Urine Glucose (UA) Negative (Negative) Urine Ketones 1+ A (Negative) Urine Blood 1+ A (Negative) Urine Nitrite Negative (Negative) Urine Bilirubin 2+ A (Negative) Urine Urobilinogen 1.0 (0.2-1.0) Ur Leukocyte Esterase Negative (Negative) Urine RBC 10-25 A (0-2) Urine WBC 0-2 (0-5) Ur Squamous Epith Cells Few (None-Few) Urine Bacteria None (None) Urine Mucus Few A (None) Urine Opiates Screen Negative (Negative) Ur Oxycodone Screen Negative (Negative) Urine Methadone Screen Negative (Negative) Ur Propoxyphene Screen Negative (Negative) Ur Barbiturates Screen Negative (Negative) U Tricyclic Antidepress Negative (Negative) Ur Phencyclidine Scrn Negative (Negative) Ur Amphetamines Screen Negative (Negative) U Methamphetamines Scrn Negative (Negative) U Benzodiazepines Scrn POSITIVE A* (Negative) Urine Cocaine Screen Negative (Negative) U Marijuana (THC) Screen Negative (Negative) Ur Drug Screen Comment See Note Ethyl Alcohol (0.01-0.03) % SARS-CoV-2 (PCR) (Negative) Influenza Type A (PCR) (Negative) Influenza Type B (PCR) (Negative) RSV (PCR) (Negative) POC Troponin I 0.03 (0.01-0.04) ng/ml <Dontrell Lawrence MD - Last Filed: 03/25/22 11:46> Lab Results 03/22/22 03/22/22 03/22/22 Range/Units 13:43 14:05 14:15 WBC 4.78 (4.50-11.00) K/uL RBC 4.21 L (4.30-5.90) m/uL Hgb 13.1 L (13.5-17.5) gm/dL Hct 39.0 (37.0-53.0) % MCV 93 (80-100) fL MCH 31 (26-34) pg MCHC 34 (32-36) gm/dL RDW Coeff of Chantel 15.3 (11.5-15.5) % Plt Count 164 (140-440) K/uL Neut % (Auto) 73.4 H (42.0-72.0) % Lymph % (Auto) 13.0 L (20-44) % [place] % (Auto) 12.6 H (0.0-11.0) % Eos % (Auto) 0.0 (0.0-7.0) % Baso % (Auto) 0.6 (0.0-3.0) % Neut # (Auto) 3.50 (1.7-7.0) K/uL Lymph # (Auto) 0.60 L (0.90-2.90) K/uL [place] # (Auto) 0.60 (0.00-0.90) K/UL Eos # (Auto) 0.00 (0.00-0.50) K/uL Baso # (Auto) 0.03 (0.00-0.30) K/uL Abs Immat Gran (auto) 0.02 (0.00-0.30) K/uL Imm/Tot Granulo (auto) 0.4 % INR (0.91-1.10) APTT (23-33) Seconds D-Dimer Quant (PE/DVT) (0.00-0.50) ug/ml Sodium (135-149) mmol/L Potassium (3.6-5.1) mmol/L Chloride (96-114) mmol/L Carbon Dioxide (20-32) mmol/L BUN (7-30) mg/dL Creatinine (0.5-1.5) mg/dL Estimated Creat Clear Estimated GFR ml/min Glucose (60-115) mg/dL Calcium (8.4-10.6) mg/dL Total Bilirubin (0.1-1.5) mg/dL Direct Bilirubin (0.0-0.5) mg/dL AST (12-35) U/L ALT (4-50) U/L Alkaline Phosphatase (40-150) U/L Total Protein (6.0-8.3) g/dL Albumin (3.3-5.0) g/dL Urine Color (Yellow) Urine Appearance (Clear) Urine pH (5.0-8.5) Ur Specific [place] (1.000-1.030) Urine Protein (Negative) Urine Glucose (UA) (Negative) Urine Ketones (Negative) Urine Blood (Negative) Urine Nitrite (Negative) Urine Bilirubin (Negative) Urine Urobilinogen (0.2-1.0) Ur Leukocyte Esterase (Negative) Urine RBC (0-2) Urine WBC (0-5) Ur Squamous Epith Cells (None-Few) Urine Bacteria (None) Urine Mucus (None) Urine Opiates Screen (Negative) Ur Oxycodone Screen (Negative) Urine Methadone Screen (Negative) Ur Propoxyphene Screen (Negative) Ur Barbiturates Screen (Negative) U Tricyclic Antidepress (Negative) Ur Phencyclidine Scrn (Negative) Ur Amphetamines Screen (Negative) U Methamphetamines Scrn (Negative) U Benzodiazepines Scrn (Negative) Urine Cocaine Screen (Negative) U Marijuana (THC) Screen (Negative) Ur Drug Screen Comment Ethyl Alcohol (0.01-0.03) % SARS-CoV-2 (PCR) Negative SARS-CoV-2 (Negative) Influenza Type A (PCR) Negative PCR FLU A (Negative) Influenza Type B (PCR) Negative PCR FLU B (Negative) RSV (PCR) Negative PCR RSV (Negative) POC Troponin I 0.02 (0.01-0.04) ng/ml 03/22/22 03/22/22 03/22/22 Range/Units 14:15 14:15 14:15 WBC (4.50-11.00) K/uL RBC (4.30-5.90) m/uL Hgb (13.5-17.5) gm/dL Hct (37.0-53.0) % MCV (80-100) fL MCH (26-34) pg MCHC (32-36) gm/dL RDW Coeff of Chantel (11.5-15.5) % Plt Count (140-440) K/uL Neut % (Auto) (42.0-72.0) % Lymph % (Auto) (20-44) % [place] % (Auto) (0.0-11.0) % Eos % (Auto) (0.0-7.0) % Baso % (Auto) (0.0-3.0) % Neut # (Auto) (1.7-7.0) K/uL Lymph # (Auto) (0.90-2.90) K/uL [place] # (Auto) (0.00-0.90) K/UL Eos # (Auto) (0.00-0.50) K/uL Baso # (Auto) (0.00-0.30) K/uL Abs Immat Gran (auto) (0.00-0.30) K/uL Imm/Tot Granulo (auto) % INR 0.94 (0.91-1.10) APTT 27 (23-33) Seconds D-Dimer Quant (PE/DVT) 3.48 H (0.00-0.50) ug/ml Sodium 142 (135-149) mmol/L Potassium 4.0 (3.6-5.1) mmol/L Chloride 101 (96-114) mmol/L Carbon Dioxide 18 L (20-32) mmol/L BUN 16 (7-30) mg/dL Creatinine 1.1 (0.5-1.5) mg/dL Estimated Creat Clear 69.95 Estimated GFR 77 ml/min Glucose 126 H (60-115) mg/dL Calcium 7.8 L (8.4-10.6) mg/dL Total Bilirubin 1.0 (0.1-1.5) mg/dL Direct Bilirubin 0.4 (0.0-0.5) mg/dL AST 206 H (12-35) U/L ALT 51 H (4-50) U/L Alkaline Phosphatase 103 (40-150) U/L Total Protein 8.0 (6.0-8.3) g/dL Albumin 4.6 (3.3-5.0) g/dL Urine Color (Yellow) Urine Appearance (Clear) Urine pH (5.0-8.5) Ur Specific [place] (1.000-1.030) Urine Protein (Negative) Urine Glucose (UA) (Negative) Urine Ketones (Negative) Urine Blood (Negative) Urine Nitrite (Negative) Urine Bilirubin (Negative) Urine Urobilinogen (0.2-1.0) Ur Leukocyte Esterase (Negative) Urine RBC (0-2) Urine WBC (0-5) Ur Squamous Epith Cells (None-Few) Urine Bacteria (None) Urine Mucus (None) Urine Opiates Screen (Negative) Ur Oxycodone Screen (Negative) Urine Methadone Screen (Negative) Ur Propoxyphene Screen (Negative) Ur Barbiturates Screen (Negative) U Tricyclic Antidepress (Negative) Ur Phencyclidine Scrn (Negative) Ur Amphetamines Screen (Negative) U Methamphetamines Scrn (Negative) U Benzodiazepines Scrn (Negative) Urine Cocaine Screen (Negative) U Marijuana (THC) Screen (Negative) Ur Drug Screen Comment Ethyl Alcohol 0.23 H (0.01-0.03) % SARS-CoV-2 (PCR) (Negative) Influenza Type A (PCR) (Negative) Influenza Type B (PCR) (Negative) RSV (PCR) (Negative) POC Troponin I (0.01-0.04) ng/ml 03/22/22 03/22/22 03/22/22 Range/Units 15:25 16:01 20:00 WBC (4.50-11.00) K/uL RBC (4.30-5.90) m/uL Hgb (13.5-17.5) gm/dL Hct (37.0-53.0) % MCV (80-100) fL MCH (26-34) pg MCHC (32-36) gm/dL RDW Coeff of Chantel (11.5-15.5) % Plt Count (140-440) K/uL Neut % (Auto) (42.0-72.0) % Lymph % (Auto) (20-44) % [place] % (Auto) (0.0-11.0) % Eos % (Auto) (0.0-7.0) % Baso % (Auto) (0.0-3.0) % Neut # (Auto) (1.7-7.0) K/uL Lymph # (Auto) (0.90-2.90) K/uL [place] # (Auto) (0.00-0.90) K/UL Eos # (Auto) (0.00-0.50) K/uL Baso # (Auto) (0.00-0.30) K/uL Abs Immat Gran (auto) (0.00-0.30) K/uL Imm/Tot Granulo (auto) % INR (0.91-1.10) APTT (23-33) Seconds D-Dimer Quant (PE/DVT) (0.00-0.50) ug/ml Sodium (135-149) mmol/L Potassium (3.6-5.1) mmol/L Chloride (96-114) mmol/L Carbon Dioxide (20-32) mmol/L BUN (7-30) mg/dL Creatinine (0.5-1.5) mg/dL Estimated Creat Clear Estimated GFR ml/min Glucose (60-115) mg/dL Calcium (8.4-10.6) mg/dL Total Bilirubin (0.1-1.5) mg/dL Direct Bilirubin (0.0-0.5) mg/dL AST (12-35) U/L ALT (4-50) U/L Alkaline Phosphatase (40-150) U/L Total Protein (6.0-8.3) g/dL Albumin (3.3-5.0) g/dL Urine Color Yellow (Yellow) Urine Appearance Clear (Clear) Urine pH 5.5 (5.0-8.5) Ur Specific [place] 1.025 (1.000-1.030) Urine Protein 3+ A (Negative) Urine Glucose (UA) Negative (Negative) Urine Ketones 1+ A (Negative) Urine Blood 1+ A (Negative) Urine Nitrite Negative (Negative) Urine Bilirubin 2+ A (Negative) Urine Urobilinogen 1.0 (0.2-1.0) Ur Leukocyte Esterase Negative (Negative) Urine RBC 10-25 A (0-2) Urine WBC 0-2 (0-5) Ur Squamous Epith Cells Few (None-Few) Urine Bacteria None (None) Urine Mucus Few A (None) Urine Opiates Screen Negative (Negative) Ur Oxycodone Screen Negative (Negative) Urine Methadone Screen Negative (Negative) Ur Propoxyphene Screen Negative (Negative) Ur Barbiturates Screen Negative (Negative) U Tricyclic Antidepress Negative (Negative) Ur Phencyclidine Scrn Negative (Negative) Ur Amphetamines Screen Negative (Negative) U Methamphetamines Scrn Negative (Negative) U Benzodiazepines Scrn POSITIVE A* (Negative) Urine Cocaine Screen Negative (Negative) U Marijuana (THC) Screen Negative (Negative) Ur Drug Screen Comment See Note Ethyl Alcohol (0.01-0.03) % SARS-CoV-2 (PCR) (Negative) Influenza Type A (PCR) (Negative) Influenza Type B (PCR) (Negative) RSV (PCR) (Negative) POC Troponin I 0.03 (0.01-0.04) ng/ml <Korina Sevilla MD - Last Filed: 03/22/22 21:46> Imaging Data CT scan - head: Attestation: I have reviewed the pertinent imaging results. <Dontrell Lawrence MD - Last Filed: 03/25/22 11:46> My impression: Negative acute large ventricle ventricular atrophy <Dontrell Lawrence MD - Last Filed: 03/25/22 11:46> Radiologist's impression: atient: [facility] Facility:?[facility] Patient ID:?[id number] Site Patient ID:?[id number]. Site :?1960 Study:?CT Head W/O-03/22/2022 2:34:02 PM Ordering Physician:Chica Jon Final Report: The INDICATION: Dizziness, falls. TECHNIQUE: CT head without contrast. COMPARISON: None. FINDINGS: CSF spaces: Mildly dilated lateral ventricles and 3rd ventricle. No obstructing lesion identified. Brain parenchyma and extra-axial spaces: The brain parenchymal volume is within normal limits for age. The rubalcava-white differentiation is normal. No sign of mass effect, hemorrhage, or midline shift. No extra-axial fluid collection. Skull base and calvarium: Small air-fluid level in the right maxillary sinus. The mastoid air cells are clear. The visualized orbits are grossly unremarkable. No skull fractures. IMPRESSION: No evidence of an acute intracranial abnormality. Mildly dilated lateral ventricles and 3rd ventricle, which does not appear commensurate with the patient`s brain parenchymal volume. No obstructing lesion identified. Recommend correlation for normal pressure hydrocephalus. Routine MRI may be helpful for further evaluation. Please note that all CT scans at this facility use dose modulation, iterative reconstruction, and/or weight-based dosing when appropriate to reduce radiation dose to as low as reasonably achievable. Dictated by Tod Chavez MD @ 03/22/2022 3:14:47 PM (Electronic Signature) <Dontrell Lawrence MD - Last Filed: 03/25/22 11:46> ECG Data Attestation: I personally reviewed and interpreted this ECG as follows: <Dontrell Lawrence MD - Last Filed: 03/25/22 11:46> ECG interpretation date: 03/22/22 <Dontrell Lawrence MD - Last Filed: 03/25/22 11:46> Interpretation: Sinus tachycardia with a ventricular rate of 124, small complexes are noted, otherwise normal EKG. <Dontrell Lawrence MD - Last Filed: 03/25/22 11:46> Discharge Plan Discharge Clinical Impression: Bilateral leg weakness, Chest pain <Dontrell Lawrence MD - Last Filed: 03/25/22 11:46> Diet Detail: NPO <Dontrell Lawrence MD - Last Filed: 03/25/22 11:46> NPO <Korina Sevilla MD - Last Filed: 03/22/22 21:46> Prescriptions: No Action metoprolol succinate 50 mg tablet extended release 24 hr 50 mg PO DAILY Label Comments: TAKE 1 TABLET BY MOUTH EVERY DAY amlodipine 10 mg tablet 10 mg PO DAILY Label Comments: TAKE 1 TABLET (10 MG) BY MOUTH DAILY. atorvastatin 40 mg tablet 40 mg PO HS Label Comments: TAKE 1 TABLET BY MOUTH EVERY DAY aspirin [Adult Aspirin Regimen] 81 mg tablet,delayed release (DR/EC) 81 mg PO DAILY omeprazole 40 mg capsule,delayed release(DR/EC) 40 mg PO DAILY magnesium oxide 400 mg (241.3 mg magnesium) tablet 400 mg PO BID Label Comments: TAKE 1 TABLET BY MOUTH TWICE DAILY <Dontrell Lawrence MD - Last Filed: 03/25/22 11:46> Follow Up/Referrals: Provider,Not a Local [Primary Care Provider] - <Dontrell Lawrence MD - Last Filed: 03/25/22 11:46>
--- NOTE | 2022-03-22 13:42 | CRLHL7_ITS ---
For Patients: As a result of the Century Cures Act, medical imaging exams and procedure reports are released immediately into your electronic medical record. You may view this report before your referring provider. If you have questions, please contact your health care provider. INDICATION: Dizziness and falls. TECHNIQUE: Chest 2 views. COMPARISON: Chest x-ray from 07/20/2021. FINDINGS: Lungs: Clear lungs. No consolidation. Pleura: No pleural effusion or pneumothorax. Heart and Mediastinum: The cardiomediastinal silhouette is normal. The vessels are unremarkable. Bones: Unremarkable. IMPRESSION: No acute cardiopulmonary disease. Dictated by Geraldo Quiroz MD @ 03/22/2022 3:11:12 PM (Electronically Signed)
--- NOTE | 2022-03-22 13:42 | CRLHL7_ITS ---
For Patients: As a result of the Century Cures Act, medical imaging exams and procedure reports are released immediately into your electronic medical record. You may view this report before your referring provider. If you have questions, please contact your health care provider. The INDICATION: Dizziness, falls. TECHNIQUE: CT head without contrast. COMPARISON: None. FINDINGS: CSF spaces: Mildly dilated lateral ventricles and 3rd ventricle. No obstructing lesion identified. Brain parenchyma and extra-axial spaces: The brain parenchymal volume is within normal limits for age. The rubalcava-white differentiation is normal. No sign of mass effect, hemorrhage, or midline shift. No extra-axial fluid collection. Skull base and calvarium: Small air-fluid level in the right maxillary sinus. The mastoid air cells are clear. The visualized orbits are grossly unremarkable. No skull fractures. IMPRESSION: No evidence of an acute intracranial abnormality. Mildly dilated lateral ventricles and 3rd ventricle, which does not appear commensurate with the patient`s brain parenchymal volume. No obstructing lesion identified. Recommend correlation for normal pressure hydrocephalus. Routine MRI may be helpful for further evaluation. Please note that all CT scans at this facility use dose modulation, iterative reconstruction, and/or weight-based dosing when appropriate to reduce radiation dose to as low as reasonably achievable. Dictated by Tod Chavez MD @ 03/22/2022 3:14:47 PM (Electronically Signed)
--- OUTSIDE RECORDS SUMMARY | 2022-03-22 13:55 | XMS_ITS | Clinical Summary ---
:1960 Author Organization [facility] Address [address] [place] [address] Care Team Providers Name Role Phone Marydebra Denise Watson PA-C Unavailable [phone] Juan Farias MD Primary Care Provider Dana Barry PA-C Unavailable [phone] Allergies Active Allergy Reactions Severity Noted [...] 1 tablet by 0 Active mouth daily Vnwjuntnl-Hdomyweajke-N Take 1 tablet by 0 Active it [...] Team Description 01/05/2022 Office Visit Cardiology Juan Farias MD Mixed hyperlipidemia; Dana Barry Esse ntial hypertension PA-C 01/05/2022 Travel 01/03/2022 Travel from Last 3 Months Immunizations Name Administration Dates Next Due COVID-19 Vaccine 12+ (Pfizer) 12/11/2020, 11/20/2020 TD (ADULT, 7+) 04/22/2003 Family [...] patient 's age to complete this topic Additional Health Concerns Infection Onset Date Last 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 05/13/2021 Insurance Payer Benefit Plan / Subscriber ID Effective Phone Address T ype Group Dates [place] [id number] 2021-Pres [phone] [address] [address] Medicaid ent 00 [place] [id number] (Home) [place] [id number] Advance Directives For more information, please contact: [phone] Latest Code Status on File Code Status Date Activated Date Inactivated Comments Full Code 12/04/2021 3:46 PM 2021 1:02 PM All basic an d advanced life-sustaining interventions are performed as alexandru ropriate Question Answer Comments Code status determined by: Discussion with patient/ legal de cision maker Care Teams Forensic Structural Engineer Relationship Specialty Start Date End Date Juan Farias, PCP - General Cardiovascular Disease 12/04/21 [address] [place] [id number] Denise Connell Physician Commercial Loan Analyst Cardiovascular Disease 08/12/21 MARIETTA Watson [address] [place] [id number] Dana Barry Assigned Heart and 01/15/22 MARIETTA Teague Vascular Provider [address] [place] [id number]
--- OUTSIDE RECORDS SUMMARY | 2022-03-22 13:55 | XMS_ITS | Encounter Summary ---
:1960 Author Organization [facility] Address [address] [place] [address] Care Team Providers Name Role Phone Denise Connell PA-C Unavailable [phone] Denise Connell PA-C Unavailable [phone] Juan Farias MD Primary Care Provider Reason for Visit Reason Onset Date Comments Refill Request 12/17/2021 lipitor Encounter Details Date Type Department Care Team Description 12/17/2021 Refill [facility] Heart Denise Connell Re fill Request (lipitor) Clinic Annika Watson PA-C [address] [facility] [address] [place] [address] [address] [place] [id number] [place] [address] (Wo rk) Social History [...] Weiner RN - 12/17/2021 9:10 AM CDT [facility] Cardiology Refill Guideline reviewed. Refill meets criteria. documented in this encounter Plan of Treatment Not on filedocumented as of this encounter Visit Diagnoses Diagnosis Mixed hyperlipidemia documented in this encounter Additional Health Concerns Infection Onset Date Last Indicated Resolved Time MRSA 05/13/2021 05/13/2021 documented as of this encounter Care Teams Paint Formulator Relationship Specialty Start Date End Date Juan Farias, PCP - General Cardiovascular Disease 12/04/21 [address] [place] [id number] Denise Connell Physician Assistant Professor Of History Cardiovascular Disease 08/12/21 MARIETTA Watson [address] [place] [id number] Denise Connell Assigned Heart and 08/22/21 01/14/22 MARIETTA Watson Vascular Provider [address] [place] [id number] documented as of this encounter
--- OUTSIDE RECORDS SUMMARY | 2022-03-22 13:55 | XMS_ITS | Encounter Summary ---
:1960 Author Organization [facility] Address [address] [place] [address] Care Team Providers Name Role Phone Denise Connell PA-C Unavailable [phone] Denise Connell PA-C Unavailable [phone] Juan Farias MD Primary Care Provider Encounter [...] documented as of this encounter Care Teams Barn Hand Relationship Specialty Start Date End Date Juan Farias, PCP - General Cardiovascular Disease 12/04/21 [address] [place] [id number] Denise Connell Physician Employment Law Specialist Cardiovascular Disease 08/12/21 MARIETTA Watson [address] [place] [address]80[address] Liegl, Denise Assigned Heart and 08/22/21 01/14/22 MARIETTA Watson Vascular Provider [address] [place] [id number] documented as of this encounter
--- OUTSIDE RECORDS SUMMARY | 2022-03-22 13:55 | XMS_ITS | Encounter Summary ---
:1960 Author Organization [place] Address [address] [place] [address] Care Team Providers Name Role Phone Denise Connell PA-C Unavailable [phone] Denise Connell PA-C Unavailable [phone] Juan Farias MD Primary Care Provider Encounter [...] documented as of this encounter Care Teams Senior Bioinformatics Scientist Relationship Specialty Start Date End Date Juan Farias, PCP - General Cardiovascular Disease 12/04/21 [address] [place] [id number] Denise Connell Physician Manager Internship Cardiovascular Disease 08/12/21 MARIETTA Watson [address] [place] [address]70[address] Liegl, Denise Assigned Heart and 08/22/21 01/14/22 MARIETTA Watson Vascular Provider [address] [place] [id number] documented as of this encounter
--- OUTSIDE RECORDS SUMMARY | 2022-03-22 13:55 | XMS_ITS | Encounter Summary ---
:1960 Author Organization [facility] Address [address] [place] [address] Care Team Providers Name Role Phone Denise Connell PA-C Unavailable [phone] Denise Connell PA-C Unavailable [phone] Juan Farias MD Primary Care Provider Reason for Referral Consultation (Routine: Next available opening) - Pending Review Specialty Diagnoses / Procedures Referred By Contact Refer red To Contact Cardiovascular Disease Diagnoses Essential hypertension Dana Barry PA-C [address] [employer] [facility] [address] [place] [address] Referral ID Status Reason Start Date Expiration Date Visits V isits Requested Authorized [id number] Pending 01/05/2022 01/05/2023 1 1 Review Consultation (Routine: Next available opening) - Pending Review Specialty Diagnoses / Procedures Referred By Contact Refer red To Contact Cardiovascular Disease Diagnoses Essential hypertension Dana Barry PA-C [address] [place] [address] Referral ID Status Reason Start Date Expiration Date Visits V isits Requested Authorized [id number] Pending 01/05/2022 01/05/2023 1 1 Review Reason for Visit Reason Comments Follow Up Follow up with EAN Huynh for work release form per scheduling [facility] for alcohol gastritis (Routine) - Closed Specialty Diagnoses / Procedures Referred By Contact Refer red To Contact Diagnoses Mixed hyperlipidemia Juan Farias MD [address] [place] [address] Referral ID Status Reason Start Date Expiration Date Visits Requ ested Visits Authorized [id number] Closed 01/30/2020 01/29/2021 1 1 Encounter Details Date Type Department Care Team Description 01/05/2022 Office Visit [facility] Juan Farias MD [address] [place] [id number] Mixed hyperlipidemia; Heart Clinic Dana Barry PA-C [address] [place] [address] Essential hypertension [address] [address] Social History Tobacco Use Types [...] 3:15 PM CDT .Thanks for coming into [facility] Heart clinic today. We discussed: our goal [...] Connell PA-C in about a month in [place] for a blood pressure check. We'll have you see Dr. Farias in 6 months. Please call my nurse Mai at Reminder: Please bring in all current medications, over the counter supplements and vitamin bottles to your next appointment. documented in this encounter Progress Notes Dana Barry PA-C - 01/05/2022 3:15 PM CDT [id number] HPI and Plan: See dictation Orders this [...] by mouth daily 90 tablet 2 ??? Mezxofkeo-Fottlhvvhxc-Jkw D (OSTEO BI-FLEX ONE PER DAY PO) [...] Other Topics Concern ??? Parent/sibling w/ CABG, [place] or angioplasty before 65F 55M? No ??? [...] (H) 03/14/2009 CC Juan Farias MD [address] [facility] [address] [place] [address] Dana Barry PA-C - 01/05/2022 2:52 PM CDT Service Date: 01/05/2022 PRIMARY CASTABLES WORKER: Juan Farias MD REASON FOR VISIT: Hypertension. [...] with last LDL 86, HDL 50, total [id number]. 3. Recent acute pancreatitis, resolved per primary care provider. Thank you for allowing me to participate in this patient's care. I completed the paperwork for his employer and I would be happy to work with him to get his blood pressure to goal. To make sure that happens, we will have him follow up in 1 month with Ms. Connell in [place] where he typically sees her and will work on getting him back in with his primary doctor, Dr. Farias, in the spring. Dana Barry PA-C MT: JOELLE Name: ELIJAH BROWN Account: [id number] : 1960 Service Date: 01/05/2022 Document: [id number] documented in this encounter Plan of Treatment [...] as of this encounter Care Teams Marketing Finance Manager Relationship Specialty Start Date End Date Juan Farias, PCP - General Cardiovascular Disease 12/04/21 [address] [place] [phone] Denise Connell Physician Transactional Attorney Cardiovascular Disease 08/12/21 MARIETTA Watson [address] [place] [address] Denise Connell Assigned Heart and 08/22/21 01/14/22 MARIETTA Watson Vascular Provider [address] [place] [address] documented as of this encounter
--- OUTSIDE RECORDS SUMMARY | 2022-03-22 13:55 | XMS_ITS | Encounter Summary ---
:1960 Author Organization [place] Address [facility] [place] [address] Care Team Providers Name Role Phone No Ref-Primary, Physician Primary Care Provider [phone] Denise Connell PA-C Unavailable [phone] Reason for Referral Consultation (Routine: Next available opening) - Pending Review Specialty Diagnoses / Procedures Referred By Contact Refer red To Contact Cardiovascular Disease Diagnoses Essential hypertension Mixed hyperlipidemia Denise Connell Eric Ryan, Catherine, PA-C MD [address] [place] [address] [place] [address] Phone: Fax: Referral ID Status Reason Start Date Expiration Date Visits V isits Requested Authorized [id number] Pending 08/16/2021 08/16/2022 1 1 Review Reason for Visit Reason Comments Follow Up Follow up for HLD, and Htn r eview labs Encounter Details Date Type Department Care Team Description 08/16/2021 Office Visit [facility] Denise Connell hypertension (Primary Dx); Heart Clinic Annika Watson PA-C Mixed hyperlipidemia [address] [place] [address] [place] [address] [phone] Social History Tobacco Use Types Packs/Day Years [...] vitamin bottles to your next appointment. Important [facility] telephone numbers for your reference: Cardiology Scheduling - [phone] Cardiology Clinic RN- [phone] [facility] HEART CARE Component Latest Ref Rng & [...] in follow up of: hypertension, dyslipidemia Primary senior net developer architect: Dr. Farias HPI: Juan Pablo Brown is [...] for further refills 90 tablet 3 ??? Khvqxdkoj-Epmiijlcpqj-Tfm D (OSTEO BI-FLEX ONE PER DAY PO) [...] Other Topics Concern ??? Parent/sibling w/ CABG, [place] or angioplasty before 65F 55M? No ??? [...] documented as of this encounter Care Teams Computer Systems Information Director Relationship Specialty Start Date End Date No Ref-Primary, PCP - General 07/03/14 12/03/21 Physician Denise Connell Physician Welding Machine Operator Arc Cardiovascular Disease 08/12/21 MARIETTA Watson [address] [facility] [address] [place] [address] documented as of this encounter
--- OUTSIDE RECORDS SUMMARY | 2022-03-22 13:55 | XMS_ITS | Encounter Summary ---
:1960 Author Organization [facility] Address [address] [place] [address] Care Team Providers Name Role Phone No Ref-Primary, Physician Primary Care Provider [phone] Denise Connell PA-C Unavailable [phone] Encounter Details Date Type Department Care Team [...] documented as of this encounter Care Teams Magician/Illusionist Relationship Specialty Start Date End Date No Ref-Primary, PCP - General 07/03/14 12/03/21 Physician Denise Connell Physician Trial Management Associate Cardiovascular Disease 08/12/21 MARIETTA Watson [address] [facility] [address] [place] [address] documented as of this encounter
--- OUTSIDE RECORDS SUMMARY | 2022-03-22 13:55 | XMS_ITS | Encounter Summary ---
:1960 Author Organization [facility] [facility] Address [address] [place] [address] Care Team Providers Name Role Phone Denise Connell PA-C Unavailable [phone] Denise Connell PA-C Unavailable [phone] Juan Farias MD Primary Care Provider Encounter [...] documented as of this encounter Care Teams Hand Coke Drawer Relationship Specialty Start Date End Date Juan Farias, PCP - General Cardiovascular Disease 12/04/21 [address] [place] [id number] Denise Connell Physician Tooler Cardiovascular Disease 08/12/21 MARIETTA Watson [address] [place] [address] Liegl, Denise Assigned Heart and 08/22/21 01/14/22 MARIETTA Watson Vascular Provider [address] [place] [address] documented as of this encounter
--- OUTSIDE RECORDS SUMMARY | 2022-03-22 13:55 | XMS_ITS | Encounter Summary ---
:1960 Author Organization [facility] Address [address] [place] [address] Care Team Providers Name Role Phone No Ref-Primary, Physician Primary Care Provider [phone] Denise Connell PA-C Unavailable [phone] Encounter Details Date Type Department Care Team [...] documented as of this encounter Care Teams Aircraft Engine Cylinder Mechanic Relationship Specialty Start Date End Date No Ref-Primary, PCP - General 07/03/14 12/03/21 Physician Denise Connell Physician Authorization Manager Cardiovascular Disease 08/12/21 MARIETTA Watson [address] [email or web address] [address] [place] [address] documented as of this encounter
--- OUTSIDE RECORDS SUMMARY | 2022-03-22 13:55 | XMS_ITS | Encounter Summary ---
:1960 Author Organization [facility] Address [address] [place] [address] Care Team Providers Name Role Phone Denise Connell PA-C Unavailable Denise Connell PA-C Unavailable [phone] Juan Farias MD Primary Care Provider Reason for Visit Reason Comments Chest Pain Auth/Cert Specialty Diagnoses / Procedures Referred By Contact Refer red To Contact Med Surg Diagnoses Alcoholic ketoacidosis Alcoholic ketoacidosis 5 [facility] [address] [place], [place] [address] Phone: Fax: Referral ID Status Reason Start Date Expiration Date Visits Requ ested Visits Authorized [id number] 1 1 Encounter Details Date Type Department Care Team Description 12/04/2021 - [facility] Jason Orozco MD [facility] [address] [place] [address] Alcoholic gastritis without bleeding, un specified chronicity (Primary Dx); 2021 Encounter [facility] Rodger Mantilla MD [address] [place] [address] Alcoholic ketoacidosis; Surgical Sprain of left ankle, unspec ified ligament, initial encounter [address] [place] [phone] Social History Tobacco Use Types Packs/Day Years [...] Ceballos MD - 2021 9:19 AM CDT [facility] Discharge Summary Name: Juan Pablo Brown Date of : 1960 Age: [age] year old Date of Discharge: 2021 Date of Admission: 12/04/2021 Primary Care Provider: Juan Farias Discharge Physician: Ronnie Ceballos MD Discharging Service: Hospitalist Hospital Course/Discharge Diagnoses: Juan Pablo Brown is a 60 year old male with past medical history including alcohol abuse, hypertension, hypercholesteremia who presented to [facility] on 12/04/2021 with abdominal pain associated with [...] your medicines These medications were sent to [facility] [id number] [address] ?? omeprazole [address] capsule Some [...] EXAM: CT ABDOMEN PELVIS W CONTRAST LOCATION: [facility] DATE/TIME: 12/04/2021 9:52 AM INDICATION: [...] Take 81 mg by mouth 0 daily Uazkwjnto-Pzzrzlheapv-Oyo Take 1 tablet by 0 D (OSTEO BI-FLEX ONE PER mouth daily DAY PO) MULTI-VITAMIN OR Take 1 tablet by 0 TABSIndications: mouth daily Hemorrhage of gastrointestinal tract, unspecified VITAMIN E PO Take 1 tablet by 0 mouth daily acetaminophen (TYLENOL) Take 2 tablets (650 0 325 MG tabletIndications: mg) by mouth every Sprain of left ankle, 4 hours as needed unspecified ligament, for mild pain, initial encounter fever or headaches magnesium oxide (MAG-OX) Take 400 mg by 0 022 400 MG tablet mouth 2 times daily omeprazole (PRILOSEC) 40 Take 1 capsule ([address] capsuleIndications: mg) by mouth daily Alcoholic gastritis without bleeding, unspecified chronicity atorvastatin (LIPITOR) 40 Take 1 tablet (40 90 tablet 3 12/17/2021 MG tabletIndications: mg) by mouth daily Mixed hyperlipidemia Appointment required for further refills metoprolol succinate ER Take 1 tablet (25 90 tablet 3 08/1601/05/2022 (TOPROL-XL) 25 MG 24 hr mg) by mouth daily tabletIndications: Essential hypertension amLODIPine (NORVASC) 10 Take 1 tablet (10 90 tablet 3 10/2601/05/2022 MG tabletIndications: mg) by mouth daily Essential hypertension amLODIPine (NORVASC) 5 MG Take 5 mg by mouth 0 01/05/2022 tablet daily documented as of this encounter Progress Notes Restricted notes were excluded Viktoriya Staples, PT - 12/07/2021 2:09 PM CDT 12/07/21 [...] 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 General Information Onset of Illness/Injury or Date of Surgery 12/04/21 Referring Physician Rodger Mantilla MD Patient/Family Therapy Goals Statement (PT) return home with parents Pertinent History of Current Problem (include personal factors and/or comorbidities that impact the POC) per chart: 60 year old male with past medical history including alcohol abuse, hypertension, hypercholesteremia who presented to [facility] on 12/04/2021 with abdominal pain associatedwith nausea [...] 11:09 AM CDT Hospitalist Medicine Progress Note [facility] Kelvin Ceballos MD 12/07/2021 Juan Pablo Brown is a 60 year old male with past medical history including alcohol abuse, hypertension, hypercholesteremia who presented to [facility] on 12/04/2021 with abdominal pain associated with [...] Patient . 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 Private pay costs [...] available as needed until discharge. 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 - Supplements: none - Chewing/swallowing difficulty: none [...] Dosing Weight 83.2 kg Estimated Energy Needs: 3102-0318 kcals (25-30 Kcal/Kg) Justification: maintenance Estimated Protein [...] Dover RD, ELLIOTT Clinical Dietitian 3rd floor/ICU: [phone] All other floors: [phone] Weekend/holiday: [phone] Office: [phone] Rodger Mantilla MD - 12/05/2021 12:23 PM CDT Hospitalist Medicine Progress Note [facility] Juan Pablo Brown is a 60 year old gentleman with alcohol abuse, hypertension, hypercholesteremia whocame in with abdominal pain associated with nausea and vomiting and was diagnosed with acute pancreatitis with elevated lipase of 411 CT scan showing thickness of the visualized distal esophagus, stranding around the pancreatic head primary care sales representative of acute pancreatitis. There was diffuse hepatic [...] discomfort ECG shows changes nonspecific for acute LA nevertheless there is progressive loss of R [...] Chips, Meds DVT Prophylaxis: Enoxaparin (Lovenox) SQ Tillmna Catheter: Not present Code Status: Full Code The patient's care was discussed with the Patient . 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 Rodger Mantilla MD Hospitalist Service [facility] Securely message with the Myngle Console (learn more here) Text page via Elo7 Paging/Directory Chief Complaint Chest and abdominal pain [...] Prescriptions Last Dose Informant Patient Reported? Taking? 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 Pt reports he has BCBS through his previous employer [employer]? He did not have any insurance cards with him for me to verify. But then he also mentioned he would need to contact [facility] to pay for this hospital stay, even though he is reporting he does not receive any services through the [facility]. I LVM for financial counselors to look [...] SW if other needs/cocnerns arise. Miriam STEVENSON, [facility] Inpatient Care Coordination [facility] [phone] documented in this encounter ED Notes Saira Tapia RN - 12/04/2021 10:36 AM CDT [facility] ED Nurse Handoff Report Juan Pablo Brown is a 60 year old male ED Chief complaint: Chest Pain . ED Diagnosis: Final diagnoses: Alcoholic ketoacidosis Allergies: Allergies Allergen Reactions ??? Lisinopril Kidney dysfunction and hyperkalemia Code Status: Full Code Activity level - Baseline/Home: Independent. Activity Level - Current: Stand by Assist. Lift room needed: No. Bariatric: No Watchguard Needed: No Isolation: No. Infection: Not Applicable. [...] his baseline. Emesis x2 days. Stay at [facility] 6. EKG SR. 4 mg ODT zofran [...] shortness of breath. He stays at a [facility] 6. EMS gave him Jackie. Review of Systems Respiratory: Negative for shortness of breath. Cardiovascular: Positive for chest pain. Gastrointestinal: Positive for abdominal distention and vomiting. All other systems reviewed and are negative. Allergies: Lisinopril Medications: amLODIPine (NORVASC) 10 MG tablet aspirin 81 MG tablet atorvastatin (LIPITOR) 40 MG tablet Kvssvxkve-Rkoclyyigan-Yxd D (OSTEO BI-FLEX ONE PER DAY PO) [...] Pressure Ventricular Rate 119 Atrial Rate 117 WA Interval 122 QRS Duration 94 QT 328 QTc 461 P [place] 35 R AXIS -19 T [place] 77 Interpretation ECG Sinus tachycardia with frequent [...] Outcome Evaluation: Assumed care of pt from 1408-3601. AVSS. A&Ox4. Apical pulse regular. Lungs CTA. [...] Pertinent assessments: Assumed care of pt from 1441-7394. AVSS. A&Ox4. Apical pulse regular. Lungs CTA. [...] goal(s). See goals on Care Plan in [facility] electronic health record for goal details. Goals [...] Pertinent assessments: Assumed care of pt from 4693-3095. VSS. A&O but forgettful. Apical pulse regular. [...] even water for the past 2-3 days OFFICE MANAGER EXECUTIVE ASSISTANT. Plan to follow peripherally for diet advancement. Kenzie Real. CORRINE Dover, LD Clinical Dietitian 3rd floor/ICU: [phone] All other floors: [phone] Weekend/holiday: [phone] Office: [phone] Plan of Care - Kassandra Gillette RN [...] distal esophagus, stranding around the pancreatic head primary care sales representative of acute pancreatitis. Patient requires inpatient admission [...] section 70.4. Sincerely, NOA CHAPARRO MD System Commercial Lines ManagerPublic Health [facility]. Plan of Care - Kassandra Gillette RN [...] withdrawal. Pharmacy-Admission Medication History - Debbie Alicea [facility] - 12/04/2021 5:27 PM CDT Admission medication history interview status for this patient is complete. See [facility] admission navigator for allergy information, prior to admission medications and immunization status. Medication history interview done, indicate source(s): Patient Medication history resources (including written lists, pill bottles, clinic record):None Pharmacy: [facility] pharmacy Changes made to OFFICE MANAGER EXECUTIVE ASSISTANT medication list: Added: none Changed: omeprazole Reported as Not Taking: none Removed: magnesium Actions taken by pharmacist (provider contacted, etc):None Additional medication history information:None Medication reconciliation/reorder completed by provider prior to medication history? Y (Y/N) Prior to Admission medications Medication Sig Last Dose Taking? Auth Provider Intermediate End Date amLODIPine (NORVASC) 10 MG tablet [...] Unknown time Yes Denise Connell PA-C Yes Artyjnzgl-Njktjdridlt-Orh D (OSTEO BI-FLEX ONE PER DAY PO) [...] LAB - BLOOD ORDERABLES Performing Organization Address City/[facility]/[place] [phone] Care Lab [address] Lab (1st floor, no room number) [...] Organization Address City/State/[place] [address] Care Lab [address] Lab (1st floor, no room number) [...] Address City/State/ZIP Code [place] [address] Care Lab [address] Lab (1st floor, no room number) [...] LAB - BLOOD ORDERABLES Performing Organization Address City/[facility]/ZIP Code [place] [address] Care Lab [address] Lab (1st floor, no room number) [...] Address City/State/ZIP Code [place] [phone] Care Lab [address] Lab (1st floor, no room number) (ABNORMAL) CBC with platelets (12/07/2021 5:37 AM CDT) [facility] gist Method Time Signature WBC [...] Address City/State/ZIP Code [place] [phone] Care Lab [address] Lab (1st floor, no room number) (ABNORMAL) Comprehensive metabolic panel (12/07/2021 5:37 AM CDT) [facility] Method Time Signature Sodium 135 (L) [...] and gender (Yuli et al., NEJM, DOI: 10.1056/[id number]) Specimen Anatomical Collection Method / Collection Time Recei rehana Time (Source) Location / Volume Laterality Blood STRUCTURE OF LEFT Venipuncture / 12/07/2021 5:37 12/07 5:43 UPPER LIMB / Unknown AM CDT AM CDT Unknown Rodger Mantilla MD LAB - BLOOD ORDERABLES Performing Organization Address City/[facility]/[place] [address] Care Lab [address] Lab (1st floor, no room number) [...] LAB - BLOOD ORDERABLES Performing Organization Address City/[facility]/[place] [address] Care Lab [address] Lab (1st floor, no room number) [...] LAB - BLOOD ORDERABLES Performing Organization Address City/[facility]/[place] [address] Care Lab [address] Lab (1st floor, no room number) [...] Address City/State/ZIP Code [place] [address] Care Lab [address] Lab (1st floor, no room number) [...] Address City/State/ZIP Code [place] [address] [facility] [address] [facility], no room number) (ABNORMAL) [...] and gender (Yuli et al., NE, DOI: 10.1056/[id number]) Specimen Anatomical Collection Method / Collection Time Recei rehana Time (Source) Location / Volume Laterality Blood STRUCTURE OF RIGHT Venipuncture / 12/06/2021 6:26 11/22 7:05 HAND / Unknown Unknown AM CDT AM CDT Rodger Mantilla MD LAB - BLOOD ORDERABLES Performing Organization Address City/State/[place] [address] Care Lab [address] Lab (1st floor, no room number) [...] Organization Address City/State/ZIP Code Phon e Number [facility] [place] [address] Care Lab [address] Lab (1st floor, no room number) [...] LAB - BLOOD ORDERABLES Performing Organization Address City/[facility]/ZIP Code [place] [address] Care Lab [address] Lab (1st floor, no room number) [...] Address City/State/ZIP Code [place] [address] Care Lab [address] Lab (1st floor, no room number) [...] LAB - BLOOD ORDERABLES Performing Organization Address City/[facility]/[place] [address] Care Lab [address] Lab (1st floor, no room number) [...] LAB - BLOOD ORDERABLES Performing Organization Address City/[facility]/[place] [address] Care Lab [address] Lab (1st floor, no room number) [...] LAB - BLOOD ORDERABLES Performing Organization Address City/[facility]/[place] [address] Care Lab [address] Lab (1st floor, no room number) [...] LAB - BLOOD ORDERABLES Performing Organization Address City/[facility]/ZIP [facility] [place] [address] Care Lab [address] Lab (1st floor, no room number) [...] LAB - BLOOD ORDERABLES Performing Organization Address [facility] [place] [address] Care Lab [address] Lab (1st floor, no room number) [...] LAB - BLOOD ORDERABLES Performing Organization Address City/[facility]/ZIP Code Phon [place] [address] Care Lab [address] Lab (1st floor, no room number) (ABNORMAL) CBC with platelets (12/05/2021 6:51 AM CDT) [facility] Method Time Signature WBC Count 7.0 4.0 [...] Address City/State/ZIP Code [place] [address] Care Lab [address] Lab (1st floor, no room number) (ABNORMAL) Comprehensive metabolic panel (12/05/2021 6:51 AM CDT) [facility] Method Time Signature Sodium 136 136 - [...] and gender (Yuli et al., NEJM, DOI: 10.1056/[id number]) Specimen Anatomical Collection Method / Collection Time Recei rehana Time (Source) Location / Volume Laterality Blood STRUCTURE OF RIGHT Venipuncture / 12/05/2021 6:51 11/22 6:55 HAND / Unknown Unknown AM CDT AM CDT Rodger Mantilla MD LAB - BLOOD ORDERABLES Performing Organization Address City/[facility]/[place] [address] Care Lab [address] Lab (1st floor, no room number) [...] LAB - BLOOD ORDERABLES Performing Organization Address City/[facility]/[place] [address] Care Lab [address] Lab (1st floor, no room number) [...] LAB - BLOOD ORDERABLES Performing Organization Address City/[facility]/[place] [address] Care Lab [address] Lab (1st floor, no room number) [...] City/State/ZIP Code Ph[place] [address] Care Lab [address] Lab (1st floor, no room number) [...] 12/04/2021 LABORATORY mg/dL 11:34 PM CDT Specific [place] 1.023 1.003 - 12/04/2021 RH LABORATOR Y [...] Organization Address City/State/[place] [address] Care Lab [address] Lab (1st floor, no room number) [...] LAB - URINE ORDERABLES Performing Organization Address City/[facility]/[place] [address] Care Lab [address] Lab (1st floor, no room number) [...] LAB - BLOOD ORDERABLES Performing Organization Address City/[facility]/[place] [address] Care Lab [address] Lab (1st floor, no room number) [...] LAB - BLOOD ORDERABLES Performing Organization Address City/[facility]/[place] [address] Care Lab [address] Lab (1st floor, no room number) [...] es age and gender (Yuli et al., [facility], DOI: 10.[facility]6/[id number]) Calcium 8.5 (L) 8.6 - 10.0 mg/dL 12/04/2021 8:12 PM CDT [facility] LABORATORY Specimen Anatomical Collection Method / Collection Time Recei rehana Time (Source) Location / Volume Laterality Blood STRUCTURE OF RIGHT Venipuncture / 12/04/2021 7:44 08/06/2021 7:47 UPPER LIMB / Unknown PM CDT PM CDT Unknown Rodger Mantilla MD LAB - BLOOD ORDERABLES Performing Organization Address City/State/ZIP Code [place] [phone] Care Lab [address] Lab (1st floor, no room number) [...] Address City/State/ZIP Code [place] [address] Care Lab [address] Lab (1st floor, no room number) [...] City/State/ZIP Code Phon e Number [place] [address] Lab [address] [facility] [address] Building, Room 3-580 (ABNORMAL) Creatinine (12/04/2021 4:13 PM CDT) athologist Signature Creatinine 1.22 (H) 0.67 - 12/04/2021 LABORATORY 1.17 mg/dL 4:48 PM CDT GFR Estimate 69 >60 12/04/2021 LABORATORY mL/min/1.7 4:48 PM CDT 3m2 Comment: Effective April 13, 2021 eGF Rcr in adults is calculated using the 2020 CKD-EPI creatinine equation which includ es age and gender (Yuli et al., [facility], DOI: 10.1056/[id number]) Specimen Anatomical Collection Method / Collection Time Recei rehana Time (Source) Location / Volume Laterality Blood STRUCTURE OF RIGHT Venipuncture / 12/04/2021 4:13 11/22 4:24 UPPER LIMB / Unknown PM CDT PM CDT Unknown Rodger Mantilla MD LAB - BLOOD ORDERABLES Performing Organization Address City/State/ZIP Code [place] [address] Care Lab [address] Lab (1st floor, no room number) [...] EXAM: CT ABDOMEN PELVIS W CONTRAST LOCATION: [facility] DATE/TIME: 12/04/2021 9:52 AM INDICATION: abdominal pain [...] EXAM: CT ABDOMEN PELVIS W CONTRAST LOCATION: [facility] DATE/TIME: 12/04/2021 9:52 AM INDICATION: abdominal pain [...] the Xpert Xpress SARS-CoV-2 Assay on the [employer]. A dditional information about this [...] COVID-19. This test was validated by the [facility]. This laboratory is certified under the Clinical Laboratory Improvement Amendments of 1988 (CLIA-88) as qualified to perform high complexity laboratory testing. Jason Orozco MD LAB - MICRO GENERAL ORDERABL ES Performing Organization Address City/State/ZIP Code [place] [address] Care Lab [address] Lab (1st floor, no room number) [...] LAB - BLOOD ORDERABLES Performing Organization Address [facility]/[place] [address] Care Lab [address] Lab (1st floor, no room number) [...] Address City/State/ZIP Code [place] [address] Care Lab [address] Lab (1st floor, no room number) [...] LAB - BLOOD ORDERABLES Performing Organization Address City/[facility]/ZIP Code [place] [address] Care Lab [address] Lab (1st floor, no room number) [...] City/State/ZIP Code [place] [address] Care Lab [address] Lab (1st floor, no room number) [...] City/State/ZIP Code [place] [address] Care Lab [address] Lab (1st floor, no room number) [...] LAB - BLOOD ORDERABLES Performing Organization Address City/[facility]/ZIP Code [place] [address] Care Lab [address] Lab (1st floor, no room number) [...] LAB - BLOOD ORDERABLES Performing Organization Address City/[facility]/[place] [address] Care Lab [address] Lab (1st floor, no room number) [...] LAB - BLOOD ORDERABLES Performing Organization Address [facility]/[place] [address] Care Lab [address] Lab (1st floor, no room number) [...] LAB - BLOOD ORDERABLES Performing Organization Address City/[facility]/[place] [address] Care Lab [address] Lab (1st floor, no room number) [...] and gender (Yuli et al., NEJM, DOI: 10.1056/[id number]) Specimen Anatomical Collection Method / Collection Time Recei rehana Time (Source) Location / Volume Laterality Blood VENOUS LINE / Venipuncture / 12/04/2021 8:14 2 8:22 Unknown Unknown AM CDT AM CDT Jason Orozco MD LAB - BLOOD ORDERABLES Performing Organization Address City/State/ZIP Code [place] [address] Care Lab [address] Lab (1st floor, no room number) EKG 12-lead, tracing only (12/04/2021 8:01 AM CDT) Component Value Ref Range Test Analysis Performed Pathologis t Method Time At Signature Systolic Blood mmHg RADIOLOGY Pressure RESULTS Diastolic Blood mmHg RADIOLOGY Pressure RESULTS Ventricular Rate 119 BPM RADIOLOGY RESULTS Atrial Rate 117 BPM RADIOLOGY RESULTS WA Interval 122 ms RADIOLOGY RESULTS QRS Duration 94 ms RADIOLOGY RESULTS QT 328 ms RADIOLOGY RESULTS QTc 461 ms RADIOLOGY RESULTS P [place] 35 degrees RADIOLOGY RESULTS R AXIS -19 degrees RADIOLOGY RESULTS T [place] 77 degrees RADIOLOGY RESULTS Interpretation Undetermined rhythm [...] by - EMERGENCY TARUN Mora, PHYSICIAN ([id number]), supervising editor news reel TATA ROMERO ([id number]) on 12/05/2021 9:26:19 AM Specimen Anatomical Collection [...] gel Topical, EVERY 6 HOURS PRN, moderate pain (4-6), Starting on 12/05/21 at 2145, Apply to [...] 40 mEq 40 mEq, Oral, ONCE, On 12/07/21 at 0900, For 1 dose, Potassium level [...] 08 (Given - Provider: Mable Valdez RN) 08 [...] RN) 0803 (Given - Provider: Mable Valdez, OZZIE) 40 mg, Oral, 2 TIMES DAILY BEFORE MEALS, First dose on Mon12/07/21 at 1630, DO NOT CRUSH. pantoprazole (PROTONIX) IV push injection 40 mg (CANCE LED) 08 (Given - Provider: Mable Valdez, OZZIE)1999 (Given - Provider: Sharifa Sunshine RN) 08 (Given - Provider: Mable Valdez RN) 40 mg, Intravenous, 2 TIMES DAILY, First dose on Mon at 2100, Irritant. potassium chloride 10 mEq in 100 mL ster ile water intermittent infusion (premix) (COMPLETED) 0047 (New Bag - Provider: Kassandra nova RN)0201 (New Bag - Provider: Kassandra Gillette, OZZIE)0317 [...] (COMPLET ED) 1100 (Given - Provider: Mable Valdez RN) 20 [...] (COMPLET ED) 1820 (Given - Provider: Mable Valdez, OZZIE) 20 mEq, Oral, ONCE, On Mon12/07/21 at 18 00, For 1 dose, Potassium level 3.5-3.8 mmol/L Ordered from the Potassium replacement order set. DO NOT CRUSH, Potassium Replacement: Potassium level 3.5-3.8 mmol/L, Recheck: Potassium level next AM potassium chloride ER (KLOR-CON M) CR tablet 40 mEq ([facility] ED) 0828 (Given - Provider: Mable Valdez, OZZIE) 40 mEq, Oral, ONCE, On Mon12/07/21 at [...] (COMPLETED) 0831 (New Bag - Provider: Mable Valdez, OZZIE) 15 mmol, Intravenous, ONCE, Administer o domenico [...] (COMPLETED) 1022 (New Bag - Provider: Mable Valdez, OZZIE)1313 (New Bag - Provider: Mable Valdez, OZZIE) [...] Gillette RN)1956 (New Bag - Provider: Sharifa Sunshine RN)2003 (Rate/Dose Verify - Provider: Sharifa Sunshine RN) 0236 (New Bag - Provider: Sharifa Sunshine RN)0845 (Rate/Dose Change - Provider: Mable Valdez, RN)211 (New Bag - Provider: Sharifa Sunshine RN) 0753 (Stopped - Provider: Mable Valdez RN) at 75 mL/hr, Intravenous, CONTINUOUS, St arting on 12/04/21 at 1600, Until 12/08/21 at 0744 PRN Medication Order 12/06/2021 12/07/2021 [...] gel 0622 (Given - Provider: Kassandra Gillette, RN)4 (Given - Provider: Sharifa Sunshine, OZZIE) Topical, [...] OZZIE) 0458 (Given - Provider: Sharifa Sunshine, RN)1407 (Given - Provider: Mable Valdez RN)2111 (Given - Provider: Sharifa Belarde, RN) 0803 (Given - Provider: Mable Valdez [...] after each naloxone dose. Consider transfer to [facility] if patient respiratory parameters hav e not [...] documented as of this encounter Care Teams Green Chainer Relationship Specialty Start Date End Date Juan Farias, PCP - General Cardiovascular Disease 12/04/21 [address] [place] [id number] Denise Connell Physician Geological Drafter Cardiovascular Disease 08/12/21 MARIETTA Watson [address] [place] [id number] Denise Connell Assigned Heart and 08/22/21 01/14/22 MARIETTA Watson Vascular Provider [address] [place] [id number] documented as of this encounter
--- OUTSIDE RECORDS SUMMARY | 2022-03-22 13:56 | XMS_ITS | Encounter Summary ---
:1960 Author Organization [place] Address [address] [place] [address] Care Team Providers Name Role Phone No Ref-Primary, Physician Primary Care Provider [phone] Juan Farias MD Unavailable Encounter Details Date Type Department Care Team Description 03/11/[address] [facility] Mixed hyperlipidemia [address] [place] [address] Social History Tobacco Use [...] with No / Unsure 03/11/2020 2:39 PM HIGH MAN someone who was confirmed or suspected to have Coronavirus / COVID-19? documented as of this encounter Plan of Treatment Not on filedocumented as of this encounter Procedures Procedure Name Priority Date/Time Associated Diagnosis Comme nts LIPID PROFILE Routine 03/11/2020 2:45 PM Mixed hyperlipidemia Results for this HIGH MAN procedure are i n the results section . ALT Routine 03/11/2020 2:45 PM Mixed hyperlipidemia R esults for this HIGH MAN procedure are i n the results section . documented in this encounter Results (ABNORMAL) Lipid Profile (03/11/2020 2:45 PM HIGH MAN) P athologist Signature Cholesterol 213 (H) <200 mg/dL 03/11/2020 [place] 3:46 PM [facility] Comment: Desirable: <200 mg/dl Triglycerides 134 <150 mg/dL 03/11/2020 3:46 PM HIGH MAN [facility] Comment: Fasting specimen HDL Cholesterol 70 >39 mg/dL 03/11/2020 3:49 PM [facility] LDL Cholesterol 116 (H) <100 mg/dL 03/11/2020 3:49 PM [facility] Comment: Above desirable: ??100-129 mg/dl Borderline High: ??130-159 mg/dL High: ? 160-189 mg/dL Very high: ? >189 mg/dl Non HDL Cholesterol 143 (H) <130 mg/dL 03/11/2020 3:49 PM [facility] Comment: Above Desirable: ??130-159 mg/dl Borderline high: ??160-189 mg/dl High: ? 190-219 mg/dl Very high: ? >219 mg/dl Specimen Anatomical Collection Method Collection Time Receive d Time (Source) Location / / Volume Laterality Blood specimen 03/11/2020 2:45 PM 020 2:48 (specimen) HIGH MAN PM HIGH MAN Juan Farias MD LAB - BLOOD ORDERABLES Performing Organization Address City/[facility]/ZIP Code Phon e Number M [facility] [address] [address] [facility] [address] [address], [facility] [phone] ALT (03/11/2020 2:45 PM HIGH MAN) P athologist Signature ALT 41 0 - 70 U/L 03/11/2020 [facility] 3:45 PM [facility] Specimen Anatomical Collection Method Collection Time Receive d Time (Source) Location / / Volume Laterality Blood specimen 03/11/2020 2:45 PM 020 2:48 (specimen) HIGH MAN PM HIGH MAN Juan Farias MD LAB - BLOOD ORDERABLES Performing Organization Address City/[facility]/ZIP Code Phon e Number M [facility] [address] [place], [place] [address] [facility] [address] [address], [facility] [phone] documented in this encounter Visit Diagnoses Diagnosis Mixed hyperlipidemia documented in this encounter Additional Health Concerns Infection Onset Date Last Indicated Resolved Time MRSA-Contact IsolationComment: 0 04/26/2021 11:03 AM HIGH MAN Infection 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 Care Teams Lawyer Criminal Relationship Specialty Start Date End Date No Ref-Primary, Physician PCP - General 07/03/14 12/03/21 Juan Farias MD Assigned Heart and Vascular 02/14/2010/03 [address] Provider [place] [id number] documented as of this encounter
--- OUTSIDE RECORDS SUMMARY | 2022-03-22 13:56 | XMS_ITS | Encounter Summary ---
:1960 Author Organization [place] Address [address] [place] [address] Care Team Providers Name Role Phone No Ref-Primary, Physician Primary Care Provider [phone] Juan Farias MD Unavailable Reason for Visit Reason Onset Date Comments Clinic Care Coordination - Follow-up 06/30/2021 Encounter Details Date Type Department Care Team Description 06/30/2021 Telephone [facility] [place] Care Coordination Clinic Annika Bell RN - Follow-up [address] [facility] [address] [place] [address] Social History Tobacco Use Types [...] [place] RN on 06/30/2021 at 10:50 AM CE SECRETARY documented in this encounter Plan of Treatment Not on filedocumented as of this encounter Visit Diagnoses Not on filedocumented in this encounter Additional Health Concerns Infection Onset Date Last Indicated Resolved Time MRSA 05/13/2021 05/13/2021 documented as of this encounter Care Teams Ski Patrol Officer Relationship Specialty Start Date End Date No Ref-Primary, Physician PCP - General 07/03/14 12/03/21 Juan Farias MD Assigned Heart and Vascular 04/04/21 [address] Provider [place] [id number] documented as of this encounter
--- OUTSIDE RECORDS SUMMARY | 2022-03-22 13:56 | XMS_ITS | Encounter Summary ---
:1960 Author Organization [place] Address [address] [place] [address] Care Team Providers Name Role Phone No Ref-Primary, Physician Primary Care Provider [phone] Juan Farias MD Unavailable Encounter Details [...] Time MRSA-Contact IsolationComment: 0 04/26/2021 11:03 AM FEED PROJECT ENGINEER Infection 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 Care Teams Quality Internship Relationship Specialty Start Date End Date No Ref-Primary, Physician PCP - General 07/03/14 12/03/21 Juan Farias MD Assigned Heart and Vascular 02/14/2010/03 [address] Provider [place] [phone] documented as of this encounter
--- OUTSIDE RECORDS SUMMARY | 2022-03-22 13:56 | XMS_ITS | Encounter Summary ---
:1960 Author Organization [place] Address [address] [place] [address] Care Team Providers Name Role Phone No Ref-Primary, Physician Primary Care Provider [phone] Reason for Visit Reason Onset Date Comments Refill Request 04/29/2019 Amlodipine Encounter Details Date Type Department Care Team Description 04/29/2019 Refill M [facility] Heart [place], Juan Alegre, Refill Request Clinic Annika HERBERT (Amlodipine) [address] [facility] [address] [facility] [address] [place] [address] [place] [id number] ( rk) Social History Tobacco Use Types [...] Time MRSA-Contact IsolationComment: 0 04/26/2021 11:03 AM VICE PRESIDENT OF NEWS Infection erroneous documented as of this encounter Care Teams General Internal Medicine Physician Relationship Specialty Start Date End Date No Ref-Primary, Physician PCP - General 07/03/14 12/03/21 documented as of this encounter
--- OUTSIDE RECORDS SUMMARY | 2022-03-22 13:56 | XMS_ITS | Encounter Summary ---
:1960 Author Organization [place] Address [address] [place] [address] Care Team Providers Name Role Phone No Ref-Primary, Physician Primary Care Provider [phone] Denise Connell PA-C Unavailable Encounter Details Date Type Department Care [...] documented as of this encounter Care Teams Jewel Hole Finish Opener Relationship Specialty Start Date End Date No Ref-Primary, PCP - General 07/03/14 12/03/21 Physician Denise Connell Physician Recreation Center Director Cardiovascular Disease 08/12/21 MARIETTA Watson [address] [facility] [address] [place] [address] documented as of this encounter
--- OUTSIDE RECORDS SUMMARY | 2022-03-22 13:56 | XMS_ITS | Encounter Summary ---
:1960 Author Organization [place] Address [address] [place] [address] Care Team Providers Name Role Phone No Ref-Primary, Physician Primary Care Provider [phone] Juan Farias MD Unavailable Encounter Details [...] with No / Unsure 03/11/2020 2:39 PM MANAGER FIBER someone who was confirmed or suspected to have Coronavirus / COVID-19? documented as of this encounter Plan of Treatment Not on filedocumented as of this encounter Visit Diagnoses Not on filedocumented in this encounter Additional Health Concerns Infection Onset Date Last Indicated Resolved Time MRSA-Contact IsolationComment: 0 04/26/2021 11:03 AM MANAGER FIBER Infection erroneous documented as of this encounter Care Teams Signals Collection Technician Relationship Specialty Start Date End Date No Ref-Primary, Physician PCP - General 07/03/14 12/03/21 Juan Farias MD Assigned Heart and Vascular 02/14/2010/03 [address] Provider [place] [phone] documented as of this encounter
--- OUTSIDE RECORDS SUMMARY | 2022-03-22 13:56 | XMS_ITS | Encounter Summary ---
:1960 Author Organization [place] Address [address] [place] [address] Care Team Providers Name Role Phone No Ref-Primary, Physician Primary Care Provider [phone] Juan Farias MD Unavailable Reason for Visit Reason Comments Results Encounter Details Date Type Department Care Team Description 03/12/2020 Care Coordination [facility] Heart Sabrina Montes, Results Clinic [place] RN [address] [facility] [address] [place] [address] Social History Tobacco Use Types [...] with No / Unsure 03/11/2020 2:39 PM FLAT SPRING ASSEMBLER someone who was confirmed or suspected to [...] BP update. Ashish HORNE February, 4:26 PM SPRING ASSEMBLER Larisa Montes RN - 03/12/2020 11:50 AM [...] Ashish HORNE March 17, 2020, 2:03 PM SPRING ASSEMBLER documented in this encounter Miscellaneous Notes Telephone Encounter - Juan Farias MD - 03/17/2020 10:51 AM CST Hi Larisa, as usual, I agree with you. I would recommend that he increase atorvastatin to 80 mg daily and Metoprolol Succinate to 50 mg daily. Recheck FLP in 3 months. Juan Farias SPRING ASSEMBLER Addendum Note - Larisa Montes RN - 03/12/2020 11:50 AM FLAT SPRING ASSEMBLER Addended by: LARISA MONTES on: 03/17/2020 02:06 PM Modules accepted: Orders, SmartSet SPRING ASSEMBLER documented in this encounter Plan of Treatment Not on filedocumented as of this encounter Visit Diagnoses Diagnosis Essential hypertension - Primary Unspecified essential hypertension Mixed hyperlipidemia documented in this encounter Additional Health Concerns Infection Onset Date Last Indicated Resolved Time MRSA-Contact IsolationComment: 0 04/26/2021 11:03 AM FLAT SPRING ASSEMBLER Infection erroneous documented as of this encounter Care Teams Vending Machine Attendant Relationship Specialty Start Date End Date No Ref-Primary, Physician PCP - General 07/03/14 12/03/21 Juan Farias MD Assigned Heart and Vascular 02/14/2010/03 [address] Provider [place] [address] documented as of this encounter
--- OUTSIDE RECORDS SUMMARY | 2022-03-22 13:56 | XMS_ITS | Encounter Summary ---
:1960 Author Organization [place] Address [address] [place] [address] Care Team Providers Name Role Phone No Ref-Primary, Physician Primary Care Provider [phone] Juan Farias MD Unavailable Encounter Details Date Type Department Care Team Description 02/21/2020 Orders Only [facility] [place] [address] [place] [address] [address] [place] [address] Social History Tobacco Use [...] Signature Sodium 134 133 - 144 02/21/2020 [place] mmol/L 3:51 PM [facility] Potassium 3.4 3.4 - 5.3 02/21/2020 [place] mmol/L 3:51 PM [facility] Chloride 100 94 - 109 02/21/2020 [place] mmol/L 3:51 PM [facility] Carbon Dioxide 26 20 - 32 02/21/2020 [place] mmol/L 3:57 PM [facility] Anion Gap 8 3 - 14 02/21/2020 [place] mmol/L 3:57 PM [facility] Glucose 95 70 - 99 02/21/2020 [place] mg/dL 3:57 PM [facility] Urea Nitrogen 13 7 - 30 02/21/2020 [place] mg/dL 3:57 PM [facility] Creatinine 1.04 0.66 - 02/21/2020 [place] 1.25 mg/dL 3:57 PM [facility] GFR Estimate 79 >60 02/21/2020 [place] mL/min/{1. 3:57 PM [facility] 73_m2} [facility]OSPITAL Comment: Non GFR Calc Starting 04/10/2018, serum creatinine ba sed estimated GFR (eGFR) will be calculated using the Chronic Kidney Dise [facility] Epidemiology Collaboration (CKD-EPI) equation. GFR Estimate If >90 >60 mL/min/{1.73_m2} 02/21/2020 3: 57 PM [facility] Comment: GFR Calc Starting 04/10/2018, serum creatinine ba sed estimated GFR (eGFR) will be calculated using the Chronic Kidney Dise [facility] Epidemiology Collaboration (CKD-EPI) equation. Calcium 8.8 8.5 - 10.1 mg/dL 02/21/2020 3:57 PM [facility] Specimen Anatomical Collection Method Collection Time Receive d Time (Source) Location / / Volume Laterality Blood specimen 02/21/2020 2:52 PM 020 2:57 (specimen) CDT PM CDT Edilia Trejo APRN HEAT TREAT OPERATOR LAB - BLOOD ORDERA BLES Performing Organization Address City/State/ZIP Code Phon e Number M [facility] [address] [place], [place] [address] [facility] [address] [address] [phone] documented in this encounter Visit Diagnoses Diagnosis Essential hypertension Unspecified essential hypertension documented in this encounter Additional Health Concerns Infection Onset Date Last Indicated Resolved Time MRSA-Contact IsolationComment: 0 04/26/2021 11:03 AM FIELD TECHNICIAN Infection erroneous documented as of this encounter Care Teams Uniform Room Attendant Relationship Specialty Start Date End Date No Ref-Primary, Physician PCP - General 07/03/14 12/03/21 Juan Farias MD Assigned Heart and Vascular 02/14/2010/03 [address] Provider [place] [address] documented as of this encounter
--- OUTSIDE RECORDS SUMMARY | 2022-03-22 13:56 | XMS_ITS | Encounter Summary ---
:1960 Author Organization [place] Address [address] [place] [address] Care Team Providers Name Role Phone No Ref-Primary, Physician Primary Care Provider [phone] Encounter Details Date Type Department Care Team Description 11/29/[address] [facility] Heart Hype rlipidemia LDL goal <100; Clinic [facility] Elevated fasting glucose [address] [facility] [address] [place] [address] Social History Tobacco Use Types Packs/Day Years [...] 6.1 (H) 0 - 5.6 % 11/29/2018 [place] 11:22 AM CDT [facility] Comment: Normal <5.7% Prediabetes 5.7-6.4% ??Diab etes 6.5% or higher - adopted from ADA consensus guidelines. Specimen Anatomical Collection Method Collection Time Receive d Time (Source) Location / / Volume Laterality Blood specimen 11/29/2018 10:00 9 (specimen) AM CDT 10:01 AM CDT Juan Farias MD LAB - BLOOD ORDERABLES Performing Organization Address City/State/ZIP Code Phon e Number M [facility] [address] [place] [address] [facility] [address] [place] [address], [place] [phone] (ABNORMAL) Basic metabolic panel (11/29/2018 9:59 AM CDT) P athologist Signature Sodium 137 136 - 145 11/29/2018 [facility] mmol/L 10:49 AM T MICHAELTeleSign CorporationIDRIS Potassium 4.0 3.5 - 5.1 11/29/2018 [facility] mmol/L 10:49 AM T [facility] Chloride 102 98 - 107 11/29/2018 [facility] mmol/L 10:49 AM [facility] [place] Carbon Dioxide 27 23 - 29 11/29/2018 [facility] mmol/L 10:49 AM [facility] MICHAELTeleSign CorporationIDRIS Anion Gap 12 6 - 17 11/29/2018 [facility] mmol/L 10:49 AM [facility] MICHAELTele[facility] CorporationIDR[facility] Glucose 120 (H) 70 - 105 11/29/2018 [facility] mg/dL 10:49 AM [facility] MICHAELTele[facility] CorporationIDRIS Comment: Fasting specimen Urea Nitrogen 15 7 - 30 mg/dL 11/29/2018 10:49 AM [facility]ITALTele[facility] CorporationIDR[facility] Creatinine 1.11 0.70 - 1.30 11/29/2018 10:49 AM [facility] AT mg/dL T MIC[facility]ELTele[employer] CorporationIDR[facility] GFR Estimate 69 >60 11/29/2018 10:49 AM [facility] AT mL/min/{1.73_m T MICHAELTeleSign CorporationIDRIS 2} GFR Estimate If 83 >60 11/29/2018 10:49 AM [facility] Black mL/min/{1.73_m [facility] 2} Calcium 9.7 8.5 - 10.5 11/29/2018 10:49 AM [facility] AT mg/dL [facility] Specimen Anatomical Collection Method Collection Time Receive d Time (Source) Location / / Volume Laterality Blood specimen 11/29/2018 9:59 AM 019 (specimen) CDT 10:00 AM CDT Juan Farias MD LAB - BLOOD ORDERABLES Performing Organization Address City/State/ZIP Code Phon e Number [facility] [address] [place] [address] [address] (ABNORMAL) Lipid Profile (11/29/2018 9:59 AM CDT) P athologist Signature Cholesterol 145 <200 mg/dL 11/29/2018 [facility] AT 10:49 AM [facility] Triglycerides 152 (H) <150 mg/dL 11/29/2018 [facility] 10:49 AM [facility] Comment: Fasting specimen Borderline high: ??150-199 mg/dl High: ? 200-499 mg/dl Very high: ? >499 mg/dl HDL Cholesterol 43 >39 mg/dL 11/29/2018 10:49 AM [facility] LDL Cholesterol 72 <100 mg/dL 11/29/2018 10:49 AM [facility] Calculated [facility] Comment: Desirable: <100 mg/dl Non HDL Cholesterol 102 <130 mg/dL 11/29/2018 10:49 AM [facility] Specimen Anatomical Collection Method Collection Time Receive d Time (Source) Location / / Volume Laterality Blood specimen 11/29/2018 9:59 AM 019 (specimen) CDT 10:00 AM CDT Juan Farias MD LAB - BLOOD ORDERABLES Performing Organization Address City/[facility]/ZIP Code Phon e Number [facility] [address] [place] [address] [address] ALT (11/29/2018 9:59 AM CDT) P athologist Signature ALT 13 5 - 30 U/L 11/29/2018 [facility] AT 10:49 AM CDT [facility] Specimen Anatomical Collection Method Collection Time Receive d Time (Source) Location / / Volume Laterality Blood specimen 11/29/2018 9:59 AM 019 (specimen) CDT 10:00 AM CDT Juan Farias MD LAB - BLOOD ORDERABLES Performing Organization Address City/State/ZIP Code Phon e Number [facility] AT [facility] [address] [place] [address] [address] documented in this encounter Visit Diagnoses Diagnosis Hyperlipidemia LDL goal <100 Other and unspecified hyperlipidemia Elevated fasting glucose Impaired fasting glucose documented in this encounter Additional Health Concerns Infection Onset Date Last Indicated Resolved Time MRSA-Contact IsolationComment: 0 04/26/2021 11:03 AM TUMBLING AND ROLLING SUPERVISOR Infection erroneous documented as of this encounter Care Teams Credit Risk Modeler Relationship Specialty Start Date End Date No Ref-Primary, Physician PCP - General 07/03/14 12/03/21 documented as of this encounter
--- OUTSIDE RECORDS SUMMARY | 2022-03-22 13:56 | XMS_ITS | Encounter Summary ---
:1960 Author Organization [place] Address [address] [place] [address] Care Team Providers Name Role Phone No Ref-Primary, Physician Primary Care Provider Juan Farias MD Unavailable Reason for Visit Reason Onset Date Comments Refill Request 05/12/2021 amlodipine Encounter Details Date Type Department Care Team Description 05/12/2021 Refill M [facility] Heart Juan Farias, Refill Request Clinic Annika HERBERT (amlodipine) [address] [address] [address] [place] [phone] [place] [phone] (Wo rk) Social History Tobacco Use Types [...] hypertension documented in this encounter Care Teams Mailmaster Relationship Specialty Start Date End Date No Ref-Primary, Physician PCP - General 07/03/14 12/03/21 Juan Farias MD Assigned Heart and Vascular 04/04/21 [address] Provider [place] [phone] documented as of this encounter
--- OUTSIDE RECORDS SUMMARY | 2022-03-22 13:56 | XMS_ITS | Encounter Summary ---
:1960 Author Organization [place] Address [address] [place] [address] Care Team Providers Name Role Phone No Ref-Primary, Physician Primary Care Provider [phone] Juan Farias MD Unavailable Reason for Visit Reason Onset Date Comments Refill Request 06/30/2021 Atorvastatin Encounter Details Date Type Department Care Team Description 06/30/2021 Refill [facility] Heart Juan Farias, Refill Request Clinic Annika HERBERT (Atorvastatin) [address] [place] [address] [place] 132885 (Wo rk) Social History Tobacco Use Types Packs/Day Years Used Date Smoking Tobacco: Never Smokeless Tobacco: Never Alcohol Use Standard Drinks/Week Comments No 0 (1 standard drink = 0.6 oz pure alcoho l) quit 5 years ago Sex Assigned at Date Recorded Not on file documented as of this encounter Miscellaneous Notes Telephone Encounter - Sloane Berumen LPN - 06/30/2021 9:18 AM CST [facility] Refill Guideline reviewed. Medication does not meet criteria for refill due to JOEL 02/05/20, Last refill on 05/05/21 letter was sent. no appt is made. . Messaged to providers team for further review. OL PSYCHOMETRIST documented in this encounter Plan of Treatment Not on filedocumented as of this encounter Visit Diagnoses Diagnosis Mixed hyperlipidemia documented in this encounter Additional Health Concerns Infection Onset Date Last Indicated Resolved Time MRSA 05/13/2021 05/13/2021 documented as of this encounter Care Teams Scrap Drop Operator Relationship Specialty Start Date End Date No Ref-Primary, Physician PCP - General 07/03/14 12/03/21 Juan Farias MD Assigned Heart and Vascular 04/04/21 [address] Provider [place] [id number] documented as of this encounter
--- OUTSIDE RECORDS SUMMARY | 2022-03-22 13:56 | XMS_ITS | Encounter Summary ---
:1960 Author Organization [place] Address [address] [place] [address] Care Team Providers Name Role Phone No Ref-Primary, Physician Primary Care Provider [phone] Reason for Visit Reason Onset Date Comments Refill Request 01/01/2020 Amlodipine Encounter Details Date Type Department Care Team Description 01/01/2020 Refill [facility] Jarrett, Juan Alegre, Refill Request Clinic Annika HERBERT (Amlodipine) 6405 [facility] 6405 [facility] [address] [place] [address] [place] [id number] ( rk) Social History Tobacco Use Types [...] Time MRSA-Contact IsolationComment: 0 04/26/2021 11:03 AM GRAIN COMMODITY MANAGER Infection erroneous documented as of this encounter Care Teams Circuit Tester Relationship Specialty Start Date End Date No Ref-Primary, Physician PCP - General 07/03/14 12/03/21 documented as of this encounter
--- OUTSIDE RECORDS SUMMARY | 2022-03-22 13:56 | XMS_ITS | Encounter Summary ---
:1960 Author Organization [place] Address [address] [place] [address] Care Team Providers Name Role Phone No Ref-Primary, Physician Primary Care Provider [phone] Juan Farias MD Unavailable Encounter Details [...] MRSA-Contact IsolationComment: 0 04/26/2021 11:03 AM CERTIFIED ORTHOTIST Infection erroneous documented as of this encounter Care Teams Wagon Driller Relationship Specialty Start Date End Date No Ref-Primary, Physician PCP - General 07/03/14 12/03/21 Juan Farias MD Assigned Heart and Vascular 02/14/2010/03 [address] Provider [place] [id number] documented as of this encounter
--- OUTSIDE RECORDS SUMMARY | 2022-03-22 13:56 | XMS_ITS | Encounter Summary ---
:1960 Author Organization [place] Address [address] [place] [address] Care Team Providers Name Role Phone No Ref-Primary, Physician Primary Care Provider [phone] Denise Connell-C Unavailable [phone] Denise Cnonell-C Unavailable [phone] Juan Farias MD Primary Care Provider Dana Barry PA-C Unavailable [phone] Reason for Visit Reason Onset Date Comments Patient/info Update 08/12/2021 Pt asked to come in sooner Encounter Details Date Type Department Care Team Description 08/12/2021 Telephone [facility] Juan Farias, Patient/info Update (Pt Clinic Annika HERBERT asked to come in [address] [facility] [address] [facility] soon er) [facility] [address] [place]GERA [address] [place] [address] Social History Tobacco Use [...] is schedule for his labs Monday at [facility] and a FUw/ RAN per patient request. He stated he needs to be seen BUNNY & Dr Farias is out until Dec at [place]; his BP is 3 points too high [...] documented as of this encounter Care Teams Registered Nurse Bone Marrow Transplant Relationship Specialty Start Date End Date No Ref-Primary, PCP - General 07/03/14 12/03/21 Physician Juan Farias, PCP - General Cardiovascular Disease 12/04/21 [address] [place] [id number] Denise Connell Physician Mixing Machine Attendant Cardiovascular Disease 08/12/21 MARIETTA Watson [address] [place] [address] Denise Connell Assigned Heart and 08/22/21 01/14/22 MARIETTA Watson Vascular Provider [address] [place] [address] Dana Barry Assigned Heart and 01/15/22 MARIETTA Teague Vascular Provider [address] [place] [id number] documented as of this encounter
--- OUTSIDE RECORDS SUMMARY | 2022-03-22 13:56 | XMS_ITS | Encounter Summary ---
:1960 Author Organization [place] Address [address] [place] [address] Care Team Providers Name Role Phone No Ref-Primary, Physician Primary Care Provider [phone] Encounter Details Date Type Department Care [...] Time MRSA-Contact IsolationComment: 0 04/26/2021 11:03 AM CONE MACHINE FEEDER Infection erroneous documented as of this encounter Care Teams Agricultural Engineering Technician Relationship Specialty Start Date End Date No Ref-Primary, Physician PCP - General 07/03/14 12/03/21 documented as of this encounter
--- OUTSIDE RECORDS SUMMARY | 2022-03-22 13:56 | XMS_ITS | Encounter Summary ---
:1960 Author Organization [place] Address [address] [place] [address] Care Team Providers Name Role Phone No Ref-Primary, Physician Primary Care Provider [phone] Juan Farias MD Unavailable Reason for Visit Reason Onset Date Comments Refill Request 03/12/2020 Atorvastatin Encounter Details Date Type Department Care Team Description 03/12/2020 Refill [facility] Heart Juan Farias, Refill Request Clinic Idris HERBERT (Atorvastatin) [address] [place] [address] [place] [phone] (Wo rk) Social History Tobacco Use Types [...] with No / Unsure 03/11/2020 2:39 PM CUTTER BRAKE LINING someone who was confirmed or suspected to have Coronavirus / COVID-19? documented as of this encounter Plan of Treatment Not on filedocumented as of this encounter Visit Diagnoses Diagnosis Mixed hyperlipidemia documented in this encounter Additional Health Concerns Infection Onset Date Last Indicated Resolved Time MRSA-Contact IsolationComment: 0 04/26/2021 11:03 AM CUTTER BRAKE LINING Infection erroneous documented as of this encounter Care Teams Correctional Officer Lieutenant Relationship Specialty Start Date End Date No Ref-Primary, Physician PCP - General 07/03/14 12/03/21 Juan Farias MD Assigned Heart and Vascular 02/14/2010/03 [address] Provider [place] [id number] documented as of this encounter
--- OUTSIDE RECORDS SUMMARY | 2022-03-22 13:56 | XMS_ITS | Encounter Summary ---
:1960 Author Organization [place] Address [address] [place] [address] Care Team Providers Name Role Phone No Ref-Primary, Physician Primary Care Provider [phone] Juan Farias MD Unavailable Reason for Visit Reason Comments Results 02/14/20 renal US Encounter Details Date Type Department Care Team Description 02/17/2020 Care Coordination [facility] Kenzie Kenney (02/14/20 Heart Clinic Annika Hernández RN renal US) [address] [facility] [address] [place] [address] Social History Tobacco Use Types [...] with No / Unsure 02/24/2020 3:19 PM PRECISION MARKET INSIGHTS someone who was confirmed or suspected to [...] to GUILHERME Morales RN 5:18 PM 02/17/2020 ISION MARK[employer] INSIGHTS Edilia Trejo - 02/17/2020 5:10 PM CDT Sounds good [employer] MARKET INS[employer]S Kenzie Kenney RN - 02/17/2020 5:10 PM [...] understands instructions. OZZIE Cook 9:56 AM 02/18/2020 ISION MARKET INSIGHTS documented in this encounter Plan of Treatment Not on filedocumented as of this encounter Results Basic metabolic panel (02/21/2020 2:52 PM CDT) P athologist Signature Sodium 134 133 - 144 02/21/2020 [facility] mmol/L 3:51 PM CDT [facility] Potassium 3.4 3.4 - 5.3 02/21/2020 [facility] mmol/L 3:51 PM [facility] Chloride 100 94 - 109 02/21/2020 [facility] [facility] mmol/L 3:51 PM [facility] Carbon Dioxide 26 20 - 32 02/21/2020 [place] mmol/L 3:57 PM [facility] Anion Gap 8 3 - 14 02/21/2020 [place] mmol/L 3:57 PM [facility] Glucose 95 70 - 99 02/21/2020 [place] mg/dL 3:57 PM [facility] Urea Nitrogen 13 7 - 30 02/21/2020 [place] mg/dL 3:57 PM [facility] Creatinine 1.04 0.66 - 02/21/2020 [place] 1.25 mg/dL 3:57 PM [facility] GFR Estimate 79 >60 02/21/2020 [place] mL/min/{1. 3:57 PM [facility] 73_m2} HOSPITAL Comment: Non GFR Calc Starting 04/10/2018, serum creatinine ba sed estimated GFR (eGFR) will be calculated using the Chronic Kidney Dise [facility] Epidemiology Collaboration (CKD-EPI) equation. GFR Estimate If >90 >60 mL/min/{1.73_m2} 02/21/2020 3: 57 PM [facility] Comment: GFR Calc Starting 04/10/2018, serum creatinine ba sed estimated GFR (eGFR) will be calculated using the Chronic Kidney Dise [facility] Epidemiology Collaboration (CKD-EPI) equation. Calcium 8.8 8.5 - 10.1 mg/dL 02/21/2020 3:57 PM [facility] Specimen Anatomical Collection Method Collection Time Receive d Time (Source) Location / / Volume Laterality Blood specimen 02/21/2020 2:52 PM 020 2:57 (specimen) CDT PM CDT Edilia Trejo APRN COUNTY COURT JUDGE LAB - BLOOD ORDERA BLES Performing Organization Address City/State/ZIP Code Phon e Number M [facility] [address] [place], [place] [address] [facility] [address] [place], [place] [address] [facility] [phone] documented in this encounter Visit Diagnoses Diagnosis Essential hypertension - Primary Unspecified essential hypertension documented in this encounter Additional Health Concerns Infection Onset Date Last Indicated Resolved Time MRSA-Contact IsolationComment: 0 04/26/2021 11:03 AM PRECISION MARKET INSIGHTS Infection erroneous documented as of this encounter Care Teams Claim Representative Relationship Specialty Start Date End Date No Ref-Primary, Physician PCP - General 07/03/14 12/03/21 Juan Farias MD Assigned Heart and Vascular 02/14/2010/03 [address] Provider [place] [id number] documented as of this encounter
--- OUTSIDE RECORDS SUMMARY | 2022-03-22 13:56 | XMS_ITS | Encounter Summary ---
:1960 Author Organization [place] Address [address] [place] [address] Care Team Providers Name Role Phone No Ref-Primary, Physician Primary Care Provider [phone] Reason for Visit Reason Onset Date Comments Refill Request 12/23/2019 Atorvastatin Encounter Details Date Type Department Care Team Description 12/23/2019 Refill [facility] [place], Juan Alegre, Refill Request Clinic Annika HERBERT (Atorvastatin) 6405 [facility] 6405 [facility] [address] [place] [address] [place] [phone] ( rk) Social History Tobacco Use Types [...] Time MRSA-Contact IsolationComment: 0 04/26/2021 11:03 AM SOFTWARE BUILD ENGINEER Infection erroneous documented as of this encounter Care Teams Dewaterer Operator Relationship Specialty Start Date End Date No Ref-Primary, Physician PCP - General 07/03/14 12/03/21 documented as of this encounter
--- OUTSIDE RECORDS SUMMARY | 2022-03-22 13:56 | XMS_ITS | Encounter Summary ---
:1960 Author Organization [place] Address [address] [place] [address]. [place] [address] Care Team Providers Name Role Phone No Ref-Primary, Physician Primary Care Provider [phone] Feliz Roy MD Unavailable Reason for Visit Reason Comments Follow Up 1 month FU Cardiac testing US 02/05/2020 Results lab 02/05/2020 Encounter Details Date Type Department Care Team Description 02/24/2020 Virtual Visit [facility] Feliz Roy Essential hypertension (Primary Dx); Heart Clinic Annika Alegre MD Mixed hyperlipidemia 6405 [facility] 6405 [facility] [address] [place] [address] [place] [id number] Social History Tobacco Use Types Packs/Day Years [...] with No / Unsure 02/24/2020 3:19 PM WATER PROOFER someone who was confirmed or suspected to have Coronavirus / COVID-19? documented as of this encounter Last Filed Vital Signs Vital Sign Reading Time Taken Comments Blood Pressure 133/89 02/24/2020 3:21 PM patient repor jacques WATER PROOFER Pulse 79 02/24/2020 3:21 PM patient repor jacques WATER PROOFER Temperature - - Respiratory Rate - - Oxygen Saturation - - Inhaled Oxygen Concentration - - Weight 88.5 kg (195 lb) 02/24/2020 3:21 PM patient repo rted WATER PROOFER Height 172.7 cm (5' 7.99) 02/24/2020 3:21 PM WATER PROOFER Body Mass Index 29.66 02/24/2020 3:21 PM WATER PROOFER documented in this encounter Progress Notes Feliz Roy MD - 02/24/2020 4:42 PM CST Service Date: 02/24/2020 VIDEO VISIT HISTORY OF PRESENT ILLNESS: I had the opportunity to see Mr. Elijah Brown in Cardiology Clinic today at [facility]iology in [place] for reevaluation of hypertension and dyslipidemia. I [...] a day if needed. FELIZ ROY MD, [facility] MT: JOELLE Name: ELIJAH BROWN Account: [id number] : 1960 Service Date: 02/24/2020 Document: [id number] R PROOFER Feliz Roy MD - 02/24/2020 4:00 PM [...] be resent to: Text to cell phone: [phone] Will anyone else be joining your video [...] usual. DORA Goldsmith Telephone number of patient: [phone] Video-Visit Details Type of service: Video Visit DOX Video Start Time: 4:22 PM Video End Time: 4:43 PM Originating Location (pt. Location): Home Distant Location (provider location): [facility] Platform used for Video Visit: FELIZ [...] by mouth daily 90 tablet 0 ??? Vgiqneezq-Norzxehixax-Nlc D (OSTEO BI-FLEX ONE PER DAY PO) [...] Other Topics Concern ??? Parent/sibling w/ CABG, MO or angioplasty before 65F 55M? No ??? [...] No referring provider defined for this encounter. R PROOFER documented in this encounter Plan of Treatment Not on filedocumented as of this encounter Visit Diagnoses Diagnosis Essential hypertension - Primary Unspecified essential hypertension Mixed hyperlipidemia documented in this encounter Additional Health Concerns Infection Onset Date Last Indicated Resolved Time MRSA-Contact IsolationComment: 0 04/26/2021 11:03 AM WATER PROOFER Infection erroneous documented as of this encounter Care Teams Property Economist Relationship Specialty Start Date End Date No Ref-Primary, Physician PCP - General 07/03/14 12/03/21 Feliz Roy MD Assigned Heart and Vascular 02/14/2010/03 [address] Provider [place] [address] documented as of this encounter
--- OUTSIDE RECORDS SUMMARY | 2022-03-22 13:56 | XMS_ITS | Encounter Summary ---
:1960 Author Organization [place] Address [address] [place] [address] Care Team Providers Name Role Phone No [...] MRSA-Contact IsolationComment: 0 04/26/2021 11:03 AM DIRECTOR ACUTE Infection erroneous documented as of this encounter Care Teams Vest Busheler Relationship Specialty Start Date End Date No Ref-Primary, Physician PCP - General 07/03/14 12/03/21 documented as of this encounter
--- OUTSIDE RECORDS SUMMARY | 2022-03-22 13:56 | XMS_ITS | Encounter Summary ---
:1960 Author Organization [place] Address [address] [place] [address] Care Team Providers Name Role Phone No Ref-Primary, Physician Primary Care Provider [phone] Reason for Referral Diagnostic Imaging Ultrasound (Routine) - Closed Specialty Diagnoses / Procedures Referred By Contact Refer red To Contact Radiology. Diagnoses Essential hypertension Radha Trejo Rh Ultrasound [facility] Procedures US Renal Complete w Doppler Complete ROOSEVELT Chapman AWS ARCHITECT [address] [facility] NO INFO AVAILABLE [address] 02/10/2022 [place] [address] Phone: Fax: Referral ID Status Reason Start Date Expiration Date Visits Requ ested Visits Authorized [id number] Closed 02/05/2020 02/04/2021 1 1 Reason for Visit Reason Comments Follow Up Hypertension Encounter Details Date Type Department Care Team Description 02/05/2020 Virtual Visit [facility] Ghada Trejo [facility] Heart Clinic Annika Chapman APRN hypertension (Primary [address] [facility] AWS ARCHITECT Dx) [address] NO INFO [place] [address] AVAILABLE [phone] 02/10/2022 Social History Tobacco Use Types Packs/Day [...] be resent to: Text to cell phone: [phone] Will anyone else be joining your video [...] used for Video Visit: Clotilde Trejo APRN AWS ARCHITECT documented in this encounter Plan of Treatment [...] hydronephrosis. GILMA BANG MD Rad[facility] Trejo [facility] ORDERABLES documented in this encounter Visit Diagnoses Diagnosis Essential hypertension - Primary Unspecified essential hypertension Essential hypertension Unspecified essential hypertension documented in this encounter Additional Health Concerns Infection Onset Date Last Indicated Resolved Time MRSA-Contact IsolationComment: 0 04/26/2021 11:03 AM BRIM CUTTER Infection erroneous documented as of this encounter Care Teams Profile Trimmer Relationship Specialty Start Date End Date No Ref-Primary, Physician PCP - General 07/03/14 12/03/21 documented as of this encounter
--- OUTSIDE RECORDS SUMMARY | 2022-03-22 13:56 | XMS_ITS | Encounter Summary ---
:1960 Author Organization [place] Address [address] [place] [address] Care Team Providers Name Role Phone No Ref-Primary, Physician Primary Care Provider Encounter Details Date Type Department Care Team Description 01/27/2020 Orders Only [facility] Heart Elev ated fasting glucose; [facility] Hyperlipidemia LDL goal <100 ; [address] [facility] hypertension [address] [place] [address] Social History Tobacco Use Types [...] Signature Sodium 133 133 - 144 01/27/2020 [facility] mmol/L 3:46 PM [facility] Potassium 3.7 3.4 - 5.3 01/27/2020 [facility] mmol/L 3:46 PM [facility] Chloride 101 94 - 109 01/27/2020 [facility] mmol/L 3:46 PM [facility] Carbon Dioxide 24 20 - 32 01/27/2020 [facility] mmol/L 3:54 PM [facility] Anion Gap 8 3 - 14 01/27/2020 [facility] mmol/L 3:54 PM [facility] Glucose 85 70 - 99 01/27/2020 [facility] mg/dL 3:54 PM [facility] Comment: Fasting specimen Urea Nitrogen 13 7 - 30 mg/dL 01/27/2020 3:54 PM [facility] Creatinine 1.10 0.66 - 1.25 mg/dL 01/27/2020 3:54 PM [facility] GFR Estimate 74 >60 01/27/2020 3:54 PM [facility] mL/min/{1.73_m2} [facility] Comment: Non GFR Calc Starting 04/10/2018, serum creatinine ba sed estimated GFR (eGFR) will be calculated using the Chronic Kidney Dise [facility] Epidemiology Collaboration (CKD-EPI) equation. GFR Estimate If 86 >60 mL/min/{1.73_m2} 01/27/2020 3: 54 PM [facility] Comment: GFR Calc Starting 04/10/2018, serum creatinine ba sed estimated GFR (eGFR) will be calculated using the Chronic Kidney Dise [facility] Epidemiology Collaboration (CKD-EPI) equation. Calcium 8.8 8.5 - 10.1 mg/dL 01/27/2020 3:54 PM [facility] Specimen Anatomical Collection Method Collection Time Receive d Time (Source) Location / / Volume Laterality Blood specimen 01/27/2020 2:58 PM 020 3:03 (specimen) CDT PM CDT Juan Farias MD LAB - BLOOD ORDERABLES Performing Organization Address City/State/ZIP Code Phon e Number M [place] [address] [place], [place] [address] [facility] [address] [place], [place] [address], [facility] [phone] (ABNORMAL) Lipid Profile (01/27/2020 2:58 PM CDT) athologist Signature Cholesterol 222 (H) <200 mg/dL 01/27/2020 [place] 3:54 PM T [facility] Comment: Desirable: <200 mg/dl Triglycerides 99 <150 mg/dL 01/27/2020 3:54 PM CDT [facility] Comment: Fasting specimen HDL Cholesterol 87 >39 mg/dL 01/27/2020 3:[address] [facility] LDL Cholesterol 115 (H) <100 mg/dL 01/27/2020 3:54 PM [facility] Comment: Above desirable: ??100-129 mg/dl Borderline High: ??130-159 mg/dL High: ? 160-189 mg/dL Very high: ? >189 mg/dl Non HDL Cholesterol 135 (H) <130 mg/dL 01/27/2020 3:54 PM CDT [facility] Comment: Above Desirable: ??130-159 mg/dl Borderline high: ??160-189 mg/dl High: ? 190-219 mg/dl Very high: ? >219 mg/dl Specimen Anatomical Collection Method Collection Time Receive d Time (Source) Location / / Volume Laterality Blood specimen 01/27/2020 2:58 PM 020 3:03 (specimen) CDT PM CDT Juan Farias MD LAB - BLOOD ORDERABLES Performing Organization Address City/State/ZIP Code Phon e Number [facility] [address] [place], [place] [address] HOSP[facility] [address] [place], [place] [address], [facility] [phone] ALT (01/27/2020 2:58 PM CDT) athologist Signature ALT 46 0 - 70 U/L 01/27/2020 [facility] 3:54 PM CDT HOSPITAL Specimen Anatomical Collection Method Collection Time Receive d Time (Source) Location / / Volume Laterality Blood specimen 01/27/2020 2:58 PM 020 3:03 (specimen) CDT PM CDT Juan Farias MD LAB - BLOOD ORDERABLES Performing Organization Address City/State/ZIP Code Phon e Number M [facility] [address] [place], [place] [address] [facility] [address] [place], [place] [address] [facility] [phone] (ABNORMAL) Hemoglobin A1c (01/27/2020 2:58 PM CDT) P athologist Signature Hemoglobin A1C 5.7 (H) 0 - 5.6 % 01/27/2020 [facility] 4:[address] [facility] Comment: Normal <5.7% Prediabetes 5.7-6.4% ??Diab etes 6.5% or higher - adopted from ADA consensus guidelines. Specimen Anatomical Collection Method Collection Time Receive d Time (Source) Location / / Volume Laterality Blood specimen 01/27/2020 2:58 PM 020 3:03 (specimen) CDT PM CDT Juan Farias MD LAB - BLOOD ORDERABLES Performing Organization Address City/[facility]/ZIP Code Phon e Number M [facility] [address] [place] [address] [phone] [facility] [address] [place] [address], [facility] [phone] documented in this encounter Visit Diagnoses Diagnosis Elevated fasting glucose Impaired fasting glucose Hyperlipidemia LDL goal <100 Other and unspecified hyperlipidemia Essential hypertension Unspecified essential hypertension documented in this encounter Additional Health Concerns Infection Onset Date Last Indicated Resolved Time MRSA-Contact IsolationComment: 0 04/26/2021 11:03 AM WEIGHT INSPECTOR Infection erroneous documented as of this encounter Care Teams Commercial Loan Specialist Relationship Specialty Start Date End Date No Ref-Primary, Physician PCP - General 07/03/14 12/03/21 documented as of this encounter
--- OUTSIDE RECORDS SUMMARY | 2022-03-22 13:56 | XMS_ITS | Encounter Summary ---
:1960 Author Organization [place] Address [address] [place] [address] Care Team Providers Name Role Phone No Ref-Primary, Physician Primary Care Provider Juan Farias MD Unavailable Reason for Referral Diagnostic Imaging Ultrasound (Routine) - Closed Specialty Diagnoses / Procedures Referred By Contact Refer red To Contact Radiology. Diagnoses Essential hypertension Edilia Trejo Ultrasound Rscc Procedures US Renal Complete w Doppler Complete ROOSEVELT Chapman CNP [address] [employer] NO INFO AV[address] 02/10/2022 [place] [address] Phone: Fax: Referral ID Status Reason Start Date Expiration Date Visits Requ ested Visits Authorized [id number] Closed 02/05/2020 02/04/2021 1 1 Reason for Visit Diagnostic Imaging Ultrasound (Routine) - Closed Specialty Diagnoses / Procedures Referred By Contact Refer red To Contact Radiology. Diagnoses Essential hypertension Edilia Trejo Ultrasound Rscc Procedures US Renal Complete w Doppler Complete ROOSEVELT Chapman DIRECTOR VETERINARY [address] [employer] NO INFO AVAIL[address] 02/10/2022 [place] [address] Phone: Fax: Referral ID Status Reason Start Date Expiration Date Visits Requ ested Visits Authorized [id number] Closed 02/05/2020 02/04/2021 1 1 Encounter Details Date Type Department Care Team Description 02/14/2020 [facility] Special[facility] Edilia Chapman APRN [facility] Imaging DIRECTOR VETERINARY [address] [place] [address] AVAILABLE [place], [place] 02/10/2022 [address] Social History Tobacco Use [...] Take 81 mg by 0 mouth daily Chrpspwsc-Vsqpkwziqvi-Paa D Take 1 tablet by 0 (OSTEO BI-FLEX ONE PER DAY mouth daily PO) MULTI-VITAMIN OR Take 1 tablet by 0 TABSIndications: Hemorrhage mouth daily of gastrointestinal tract, unspecified VITAMIN E PO Take 1 tablet by 0 mouth daily MAGNESIUM CR ORIndications: None Entered 0 12/04/2021 Anemia, unspecified omeprazole (PRILOSEC) 20 MG Take 20 mg by [address] capsule mouth daily amLODIPine (NORVASC) 10 MG Take 1 tablet (10 90 tablet 0 03/23/2020 tabletIndications: mg) by mouth daily Essential hypertension atorvastatin (LIPITOR) 40 Take 1 tablet (40 90 tablet 0 03/12/2020 MG tabletIndications: Mixed mg) by mouth daily hyperlipidemia indapamide (LOZOL) 1.25 MG Take 1 tablet 30 tablet 3 201902/24/2020 tabletIndications: (1.25 mg) by mouth Essential hypertension every morning documented as of this encounter Plan of Treatment Not on filedocumented as of this encounter Procedures Procedure Name Priority Date/Time Associated Diagnosis Comme nts US RENAL COMPLETE Routine 02/14/2020 3:42 PM Essential Resu lts for this WITH ARTERIAL CDT hypertension procedure are in DUPLEX the results section. documented in this encounter [...] hydronephrosis. JASON BANG MD Edilia Trejo APRN DIRECTOR VETERINARY IMG ORDERABLES documented in this encounter Visit Diagnoses Diagnosis Essential hypertension Unspecified essential hypertension documented in this encounter Additional Health Concerns Infection Onset Date Last Indicated Resolved Time MRSA-Contact IsolationComment: 0 04/26/2021 11:03 AM RADIOCOMMUNICATIONS TECHNICIAN Infection erroneous documented as of this encounter Care Teams Distillery Supervisor Relationship Specialty Start Date End Date No Ref-Primary, Physician PCP - General 07/03/14 12/03/21 Juan Farias MD Assigned Heart and Vascular 02/14/2010/03 [address] Provider [place] [address] documented as of this encounter
--- OUTSIDE RECORDS SUMMARY | 2022-03-22 13:56 | XMS_ITS | Encounter Summary ---
:1960 Author Organization [facility] Address [address] [place] [address] Care Team Providers Name Role Phone No Ref-Primary, Physician Primary Care Provider Reason for Visit Reason Onset Date Comments Refill Request 07/18/2019 atorvastatin Encounter Details Date Type Department Care Team Description 07/18/2019 Refill [facility] Jarrett, Juan Alegre, Refill Request Clinic Annika HERBERT (atorvastatin) [address] [facility] [address] [facility] [address] [place] [address] [place] [phone] ( rk) Social History Tobacco Use Types [...] Time MRSA-Contact IsolationComment: 0 04/26/2021 11:03 AM OUTBOARD MOTORBOAT OPERATOR Infection erroneous documented as of this encounter Care Teams Office Helper Clerical Relationship Specialty Start Date End Date No Ref-Primary, Physician PCP - General 07/03/14 12/03/21 documented as of this encounter
--- OUTSIDE RECORDS SUMMARY | 2022-03-22 13:56 | XMS_ITS | Encounter Summary ---
:1960 Author Organization [facility] Address [address] [place] [address] Care Team Providers Name Role Phone No Ref-Primary, Physician Primary Care Provider [phone] Juan Farias MD Unavailable Reason for Visit Reason Onset Date Comments Refill Request 05/05/2021 atorvastatin Encounter Details Date Type Department Care Team Description 05/05/2021 Refill [facility] Juan Farias, Refill Request Clinic Annika HERBERT (atorvastatin) [address] [place] [address] [place] [address] [place] [phone] (Wo rk) Social History Tobacco Use Types [...] hyperlipidemia documented in this encounter Care Teams Crocheter Relationship Specialty Start Date End Date No Ref-Primary, Physician PCP - General 07/03/14 12/03/21 Juan Farias MD Assigned Heart and Vascular 04/04/[address] Provider [place] [phone] documented as of this encounter
--- OUTSIDE RECORDS SUMMARY | 2022-03-22 13:56 | XMS_ITS | Encounter Summary ---
:1960 Author Organization [place] Address [address] [place] [address] Care Team Providers Name Role Phone No Ref-Primary, Physician Primary Care Provider [phone] Encounter Details Date Type Department Care [...] Time MRSA-Contact IsolationComment: 0 04/26/2021 11:03 AM SAP BPC ARCHITECT Infection erroneous documented as of this encounter Care Teams Disability Advocate Relationship Specialty Start Date End Date No Ref-Primary, Physician PCP - General 07/03/14 12/03/21 documented as of this encounter
--- OUTSIDE RECORDS SUMMARY | 2022-03-22 13:56 | XMS_ITS | Encounter Summary ---
:1960 Author Organization [place] Address [address] [place] [address] Care Team Providers Name Role Phone No Ref-Primary, Physician Primary Care Provider [phone] Denise Connell PA-C Unavailable [phone] Encounter Details Date Type Department Care Team Description 08/13/2021 Lab [facility] Heart Mixe d hyperlipidemia; Clinic [place] Essential hypertension; [address] [place] [address] 2 diabetes mellitus without complication, without long-term current use of insulin (H) [address] [place] [address] Social History Tobacco Use [...] Address City/State/ZIP Code [place] [address] Care Lab [address] Lab (1st floor, no room number) [...] and gender (Yuli et al., NE, DOI: [id number]/[id number]) Specimen Anatomical Collection Method / Collection Time Recei rehana Time (Source) Location / Volume Laterality Blood STRUCTURE OF RIGHT Venipuncture / 08/13/2021 7:57 07/24 7:58 HAND / Unknown Unknown AM CDT AM CDT Juan Farias MD LAB - BLOOD ORDERABLES Performing Organization Address City/[facility]/[place] [address] Care Lab [address] Lab (1st floor, no room number) [...] BLOOD ORDERABLES Performing Organization Address City/[facility]/[place] [address] Care Lab [address] Lab (1st floor, no room number) [...] Address City/State/ZIP Code [place] [phone] Care Lab [address] Lab (1st floor, no room number) documented in this encounter Visit Diagnoses Diagnosis Mixed hyperlipidemia Essential hypertension Unspecified essential hypertension Type 2 diabetes mellitus without complic ation, without long-term current use of insulin (H) documented in this encounter Additional Health Concerns Infection Onset Date Last Indicated Resolved Time MRSA 05/13/2021 05/13/2021 documented as of this encounter Care Teams Braiding Machine Operator Relationship Specialty Start Date End Date No Ref-Primary, PCP - General 07/03/14 12/03/21 Physician Denise Connell Physician Critical Power Technician Cardiovascular Disease 08/12/21 MARIETTA Watson [address] [place] [address] documented as of this encounter
--- OUTSIDE RECORDS SUMMARY | 2022-03-22 13:56 | XMS_ITS | Encounter Summary ---
:1960 Author Organization [place] Address [facility] [place] [address] Care Team Providers Name Role Phone No Ref-Primary, Physician Primary Care Provider Reason for Referral (Routine) - Closed Specialty Diagnoses / Procedures Referred By Contact Refer red To Contact Diagnoses Mixed hyperlipidemia Feliz Roy MD [address] [place] [address] Referral ID Status Reason Start Date Expiration Date Visits Requ ested Visits Authorized [id number] Closed 01/30/2020 01/29/2021 1 1 Reason for Visit Reason Comments Annual Visit Results lab Encounter Details Date Type Department Care Team Description 01/30/[address] [facility] Feliz Roy Essen tial hypertension (Primary Dx); Heart Clinic Idris HERBERT Mixed hyperlipidemia; [address] [facility] [address] Type 2 diabetes mellitus without complication, without long-term current use of insulin (H) [facility] [address] [place] [address] [place] [address] [phone] Social History Tobacco Use Types Packs/Day Years [...] Elijah Brown in Cardiology Clinic today at [facility] Cardiology in [place] for reevaluation of hypertension and dyslipidemia. He [...] office in a year. FELIZ ROY MD, [facility] [place]: Name: ELIJAH BROWN Account: [id number] : 1960 Service Date: 01/30/2020 Document: [id number] Feliz Roy MD - 01/30/2020 2:15 PM CDT HPI and Plan: See dictation Orders Placed This Encounter Procedures ??? Lipid Profile ??? ALT ??? Lipid Profile ??? ALT ??? Basic metabolic panel ??? Hemoglobin A1c ??? Follow-Up with Physician Practice Administrator Orders Placed This Encounter Medications ??? VITAMIN [...] on phone: None Gets together: None Attends methodist service: None Active member of club or organization: None Attends meetings of clubs or organizations: None Relationship status: None ??? Intimate partner violence Fear of current or ex partner: None Emotionally abused: None Physically abused: None Forced sexual activity: None Other Topics Concern ??? Parent/sibling w/ CABG, CO or angioplasty before 65F 55M? No ??? [...] Referral Routine Mixed hyperlipidemia Expec jacques: 11/30/2021 Physician Practice Administrator (Approximate), Expires: 2022 documented as of this [...] Address City/State/ZIP Code Ph[place] [address] Care Lab [address] Lab (1st floor, no room number) [...] and gender (Yuli et al., NEJM, DOI: [id number]) Specimen Anatomical Collection Method / Collection Time Recei rehana Time (Source) Location / Volume Laterality Blood STRUCTURE OF RIGHT Venipuncture / 08/13/2021 7:57 04/05/2021 7:58 HAND / Unknown Unknown AM CDT AM CDT Feliz Roy MD LAB - BLOOD ORDERABLES Performing Organization Address City/State/ZIP Code Phon e Number [place] [phone] Care Lab [address] Lab (1st floor, no room number) [...] City/State/ZIP Code Phon e [place] [phone] Care Lab [address] Lab (1st floor, no room number) [...] Address City/State/ZIP [place] [address] Care Lab [address] [facility] Lab (1st floor, no room number) ALT (03/11/2020 2:45 PM QUALITY CONTROL OPERATOR) athologist Signature ALT 41 0 - 70 U/L 03/11/[address] [facility] 3:45 PM [facility] Specimen Anatomical Collection Method Collection Time Receive d Time (Source) Location / / Volume Laterality Blood specimen 03/11/2020 2:45 PM 020 2:48 (specimen) QUALITY CONTROL OPERATOR PM QUALITY CONTROL OPERATOR Feliz Roy MD LAB - BLOOD ORDERABLES Performing Organization Address City/[facility]/ZIP [facility] Phon e Number M [facility] [address] [place], [place] [address] [facility] [address] [place] [address] [facility] [phone] (ABNORMAL) Lipid Profile (03/11/2020 2:45 PM QUALITY CONTROL OPERATOR) athologist Signature Cholesterol 213 (H) <200 mg/dL 03/11/2020 [place] 3:46 PM [facility] Comment: Desirable: <200 mg/dl Triglycerides 134 <150 mg/dL 03/11/2020 3:46 PM QUALITY CONTROL OPERATOR [facility] Comment: Fasting specimen HDL Cholesterol 70 >39 mg/dL 03/11/2020 3:49 PM [facility] LDL Cholesterol 116 (H) <100 mg/dL 03/11/2020 3:49 PM [facility] QUALITY CONTROL OPERATOR [facility]OSPITAL Comment: Above desirable: ??100-129 mg/dl Borderline High: ??130-159 mg/dL High: ? 160-189 mg/dL Very high: ? >189 mg/dl Non HDL Cholesterol 143 (H) <130 mg/dL 03/11/2020 3:49 PM QUALITY CONTROL OPERATOR [facility] Comment: Above Desirable: ??130-159 mg/dl Borderline high: ??160-189 mg/dl High: ? 190-219 mg/dl Very high: ? >219 mg/dl Specimen Anatomical Collection Method Collection Time Receive d Time (Source) Location / / Volume Laterality Blood specimen 03/11/2020 2:45 PM 020 2:48 (specimen) QUALITY CONTROL OPERATOR PM QUALITY CONTROL OPERATOR Feliz Roy MD LAB - BLOOD ORDERABLES Performing Organization Address City/State/ZIP Code Phon e Number [facility] [address] [place] [address] [facility] [address] [phone] documented in this encounter Visit Diagnoses Diagnosis Essential hypertension - Primary Unspecified essential hypertension Mixed hyperlipidemia Type 2 diabetes mellitus without complic ation, without long-term current use of insulin (H) documented in this encounter Additional Health Concerns Infection Onset Date Last Indicated Resolved Time MRSA-Contact IsolationComment: 0 04/26/2021 11:03 AM QUALITY CONTROL OPERATOR Infection erroneous documented as of this encounter Care Teams Acetylene Torch Solderer Relationship Specialty Start Date End Date No Ref-Primary, Physician PCP - General 07/03/14 12/03/21 documented as of this encounter
--- OUTSIDE RECORDS SUMMARY | 2022-03-22 13:56 | XMS_ITS | Encounter Summary ---
:1960 Author Organization [place] Address [address] [place] [address] Care Team Providers Name Role Phone No Ref-Primary, Physician Primary Care Provider [phone] Juan Farias MD Unavailable Encounter Details [...] with No / Unsure 02/24/2020 3:19 PM ORNAMENTAL IRON ERECTOR someone who was confirmed or suspected to have Coronavirus / COVID-19? documented as of this encounter Plan of Treatment Not on filedocumented as of this encounter Visit Diagnoses Not on filedocumented in this encounter Additional Health Concerns Infection Onset Date Last Indicated Resolved Time MRSA-Contact IsolationComment: 0 04/26/2021 11:03 AM ORNAMENTAL IRON ERECTOR Infection erroneous documented as of this encounter Care Teams Final Inspector Truck Trailer Relationship Specialty Start Date End Date No Ref-Primary, Physician PCP - General 07/03/14 12/03/21 Juan Farias MD Assigned Heart and Vascular 02/14/2010/03 [address] Provider [place] [address] documented as of this encounter
--- OUTSIDE RECORDS SUMMARY | 2022-03-22 13:57 | XMS_ITS | Encounter Summary ---
:1960 Author Organization [facility] Address [address] [place] [address] Care Team Providers Name Role Phone No Ref-Primary, Physician Primary Care Provider [phone] Encounter Details Date Type Department Care Team Description 08/12/2016 Orders Only [facility] Heart De[place] gn essential Clinic [place] hypertension [address] [facility] [address] [place] [address] Social History Tobacco Use [...] Time Signature Sodium 137 133 - 144 [place] mmol/L [facility] Potassium 4.0 3.4 - 5.3 [place] mmol/L [facility] Chloride 104 94 - 109 [place] mmol/L [facility] Carbon Dioxide 26 20 - 32 [place] mmol/L [facility] Anion Gap 7 3 - 14 [place] mmol/L [facility] Glucose 88 70 - 99 [place] mg/dL [facility] Urea Nitrogen 19 7 - 30 [place] mg/dL [facility] Creatinine 1.31 (H) 0.66 - [facility] 1.25 mg/dL [facility] GFR Estimate 57 (L) >60 [place] mL/min/1.7 [facility] m2 [facility] Comment: Non GFR Calc GFR Estimate If Black 69 >60 mL/min/1.7m2 F [facility] Comment: GFR Calc Calcium 9.0 8.5 - 10.1 mg/dL [facility] Specimen Anatomical Collection Method Collection Time Receive d Time (Source) Location / / Volume Laterality Blood specimen 08/12/2016 3:03 PM 017 3:04 (specimen) CDT PM CDT Juan Farias MD LAB - BLOOD ORDERABLES Performing Organization Address City/State/ZIP Code Phon e Number [place] [address] [address] [place] [address] [facility] [address] [phone] documented in this encounter Visit Diagnoses Diagnosis Benign essential hypertension Essential hypertension, benign documented in this encounter Additional Health Concerns Infection Onset Date Last Indicated Resolved Time MRSA-Contact IsolationComment: 0 04/26/2021 11:03 AM DIGITAL PUBLISHING SPECIALIST Infection erroneous documented as of this encounter Care Teams Senior Cytogenetics Laboratory Director Relationship Specialty Start Date End Date No Ref-Primary, Physician PCP - General 07/03/14 12/03/21 documented as of this encounter
--- OUTSIDE RECORDS SUMMARY | 2022-03-22 13:57 | XMS_ITS | Encounter Summary ---
:1960 Author Organization [place] Address [address] [place] [address] Care Team Providers Name Role Phone Unavailable Primary Care Provider Unavailable Reason for Visit Reason Onset Date Comments Previsit 06/26/2014 07/03/[address] Farias Encounter Details Date Type Department Care Team Description 06/26/2014 PRE VISIT [facility] Juan Farias, Previsit (07/03/14 OV Clinic Idris HERBERT with Dr. Farias) 6[address] [facility] 6[address] [facility] [address] [place] [address] [place] [address] Social History Tobacco Use Types Packs/Day Years [...] Time MRSA-Contact IsolationComment: 0 04/26/2021 11:03 AM EMERGENCY VETERINARIAN Infection erroneous documented as of this encounter
--- OUTSIDE RECORDS SUMMARY | 2022-03-22 13:57 | XMS_ITS | Encounter Summary ---
:1960 Author Organization [place] Address [address] [place] [address] Care Team Providers Name Role Phone No Ref-Primary, Physician Primary Care Provider Encounter Details Date Type Department Care Team Description 09/15/2017 Orders Only [facility] Heart Mixe d hyperlipidemia; Clinic Victor Anna mcmullen Benign essential hypertensio n [address] [facility] [address] [place] [address] Social History Tobacco Use Types Packs/Day Years [...] [facility] mmol/L 9:16 AM CDT [facility] Potassium 4.1 3.5 - 5.1 09/15/2017 [facility] mmol/L 9:16 AM CDT [facility] Chloride 103 98 - 107 09/15/2017 [facility] mmol/L 9:16 AM CDT [facility] Carbon Dioxide 25 23 - 29 09/15/2017 [facility] mmol/L 9:16 AM T [facility] Anion Gap 14.1 6 - 17 09/15/2017 [facility] mmol/L 9:16 AM T [facility] Glucose 126 (H) 70 - 105 09/15/2017 [facility] mg/dL 9:16 AM T [facility] Comment: Fasting specimen Urea Nitrogen 14 7 - 30 mg/dL 09/15/2017 9:16 AM [facility] Creatinine 1.22 0.70 - 1.30 09/15/2017 9:16 AM [facility] T AT mg/dL T [facility] GFR Estimate 62 >60 09/15/2017 9:16 AM [facility] T AT mL/min/1.7m2 T [facility] GFR Estimate If 75 >60 09/15/2017 9:16 AM [facility] EART AT Black mL/min/1.7m2 T [facility] Calcium 9.7 8.5 - 10.5 09/15/2017 9:16 AM [facility] mg/dL T [facility] Specimen Anatomical Collection Method Collection Time Receive d Time (Source) Location / / Volume Laterality Blood specimen 09/15/2017 8:20 AM 018 8:21 (specimen) CDT AM CDT Juan Farias MD LAB - BLOOD ORDERABLES Performing Organization Address City/State/ZIP Code Phon e Number [facility] [address] [place] [address] [address] ALT (09/15/2017 8:20 AM CDT) P athologist Signature ALT 8 5 - 30 U/L 09/15/2017 [facility] 9:16 AM T [facility] Specimen Anatomical Collection Method Collection Time Receive d Time (Source) Location / / Volume Laterality Blood specimen 09/15/2017 8:20 AM 018 8:21 (specimen) CDT AM CDT Juan Farias MD LAB - BLOOD ORDERABLES Performing Organization Address City/State/ZIP Code Phon e Number [facility] [address] [address] [address] Lipid Profile (09/15/2017 8:20 AM CDT) P athologist Signature Cholesterol 163 <200 mg/dL 09/15/2017 [facility] 9:16 AM CDT [facility] Triglycerides 119 <150 mg/dL 09/15/2017 [facility] 9:16 AM T [facility] Comment: Fasting specimen HDL Cholesterol 46 >39 mg/dL 09/15/2017 9:16 AM [facility] LDL Cholesterol 93 <100 mg/dL 09/15/2017 9:16 AM [facility] Calculated [facility] Comment: Desirable: <100 mg/dl Non HDL Cholesterol 117 <130 mg/dL 09/15/2017 9:16 AM [facility] AT [facility] Specimen Anatomical Collection Method Collection Time Receive d Time (Source) Location / / Volume Laterality Blood specimen 09/15/2017 8:20 AM 018 8:21 (specimen) CDT AM CDT Juan Farias MD LAB - BLOOD ORDERABLES Performing Organization Address City/State/ZIP Code Phon e Number [facility] [address] [address] [address] documented in this encounter Visit Diagnoses Diagnosis Mixed hyperlipidemia Benign essential hypertension Essential hypertension, benign documented in this encounter Additional Health Concerns Infection Onset Date Last Indicated Resolved Time MRSA-Contact IsolationComment: 0 04/26/2021 11:03 AM EMPLOYMENT COORDINATOR Infection erroneous documented as of this encounter Care Teams Labor Relations Officer Relationship Specialty Start Date End Date No Ref-Primary, Physician PCP - General 07/03/14 12/03/21 documented as of this encounter
--- OUTSIDE RECORDS SUMMARY | 2022-03-22 13:57 | XMS_ITS | Encounter Summary ---
:1960 Author Organization [place] Address [address] [place] [address] Care Team Providers Name Role Phone No Ref-Primary, Physician Primary Care Provider Reason for Visit Reason Onset Date Comments Results 08/12/2016 BMP Encounter Details Date Type Department Care Team Description 08/12/2016 Telephone [facility] Raghu Shultz, Results (BMP) Clinic Annika HORNE [address] [facility] [address] [place] [address] Social History Tobacco Use Types Packs/Day [...] Time MRSA-Contact IsolationComment: 0 04/26/2021 11:[address] SUPERVISOR Infection erroneous documented as of this encounter Care Teams Quality Assurance Calibrator Relationship Specialty Start Date End Date No Ref-Primary, Physician PCP - General 07/03/14 12/03/21 documented as of this encounter
--- OUTSIDE RECORDS SUMMARY | 2022-03-22 13:57 | XMS_ITS | Encounter Summary ---
:1960 Author Organization [place] Address [address] [place] [address] Care Team Providers Name Role Phone No Ref-Primary, Physician Primary Care Provider Encounter Details Date Type Department Care Team Description 08/04/2016 Orders Only [facility] Juan Farias, Mixed hyperlipidemia; Heart Clinic [place] HERBERT Essential hypertension Laboratory [address] [facility] [id number] [facility] [address] [place] [address] [place] [address] [phone] Social History Tobacco Use Types Packs/Day Years [...] 136 - 145 [facility] mmol/L [facility] A Potassium 5.2 (H) 3.5 - 5.1 [facility] mmol/L [facility] A Chloride 105 98 - 107 [facility] mmol/L [facility] A Carbon Dioxide 26 23 - 29 [facility] mmol/L [facility] A Anion Gap 12.2 6 - 17 [facility] mmol/L [facility] A Glucose 118 (H) 70 - 105 [facility] mg/dL [facility] A Urea Nitrogen 22 7 - 30 [facility] mg/dL [facility] A Creatinine 1.57 (H) 0.70 - [facility] 1.30 mg/dL [facility] A GFR Estimate 46 (L) >60 [facility] mL/min/1.7 [facility] m2 A GFR Estimate If 56 (L) >60 [facility] Black mL/min/1.7 [facility] m2 A Calcium 9.4 8.5 - 10.5 [facility] mg/dL [facility] A Specimen Anatomical Collection Method Collection Time Receive d Time (Source) Location / / Volume Laterality Blood specimen 08/04/2016 7:15 AM 017 8:38 (specimen) CDT AM CDT Juan Farias MD LAB - BLOOD ORDERABLES Performing Organization Address City/[facility]/ZIP Code Phon e Number [facility] [address] [place] [address] [address] ALT (08/04/2016 7:15 AM CDT) P athologist Signature ALT 9 5 - 30 U/L [facility] Specimen Anatomical Collection Method Collection Time Receive d Time (Source) Location / / Volume Laterality Blood specimen 08/04/2016 7:15 AM 017 7:16 (specimen) CDT AM CDT Juan Farias MD LAB - BLOOD ORDERABLES Performing Organization Address City/[facility]/ZIP Code Phon e Number [facility] [address] [address] [address] Lipid Profile (08/04/2016 7:15 AM CDT) athologist Signature Cholesterol 146 <200 mg/dL [facility] HEART AT [facility] Triglycerides 64 <150 mg/dL [facility] HEART AT [facility] Comment: Fasting specimen HDL Cholesterol 43 >39 mg/dL [facility] HEART AT [facility] LDL Cholesterol Calculated 90 <100 mg/dL [facility] Comment: Desirable: <100 mg/dl Non HDL Cholesterol 103 <130 mg/dL [facility] HEART AT [facility] Specimen Anatomical Collection Method Collection Time Receive d Time (Source) Location / / Volume Laterality Blood specimen 08/04/2016 7:15 AM 017 7:16 (specimen) CDT AM CDT Juan Farias MD LAB - BLOOD ORDERABLES Performing Organization Address City/State/ZIP Code Phon e Number [facility] AT [facility] [address] [address] [address] documented in this encounter Visit Diagnoses Diagnosis Mixed hyperlipidemia Essential hypertension Unspecified essential hypertension documented in this encounter Additional Health Concerns Infection Onset Date Last Indicated Resolved Time MRSA-Contact IsolationComment: 0 04/26/2021 11:03 AM NETWORK ADMIN Infection erroneous documented as of this encounter Care Teams Wagon Washer Relationship Specialty Start Date End Date No Ref-Primary, Physician PCP - General 07/03/14 12/03/21 documented as of this encounter
--- OUTSIDE RECORDS SUMMARY | 2022-03-22 13:57 | XMS_ITS | Encounter Summary ---
:1960 Author Organization [address] [address] Care Team Providers Name Role Phone Unavailable Primary Care Provider Unavailable Encounter Details Date Type Department Care Team Description 07/15/2011 Historic Results [facility] Heart Unknown, Doct or, Clinic [id number] [place] [address] Social History Tobacco Use Types Packs/Day Years [...] GEMMS Historical Results (07/15/2011 12:00 AM CDT) [facility] gist Method Time Signature Triglycerides 149 0 [...] Time MRSA-Contact IsolationComment: 0 04/26/2021 11:[address] TRAFFIC CONTROL TECHNICIAN Infection erroneous documented as of this encounter
--- OUTSIDE RECORDS SUMMARY | 2022-03-22 13:57 | XMS_ITS | Encounter Summary ---
:1960 Author Organization [place] Address [address] [place] [address] Care Team Providers Name Role Phone Unavailable Primary Care Provider Unavailable Encounter Details Date Type Department Care Team Description 04/25/2012 Historic Results [facility] Heart Unknown, Doct or, Clinic [address] [place] [address] Social History Tobacco Use Types Packs/Day Years [...] 12:00 AM Resu lts for this RESULTS CABIN OUTFITTER procedure are i n the results section. documented in this encounter Results (ABNORMAL) GEMMS Historical Results (04/25/2012 12:00 AM CABIN OUTFITTER) [facility] gist Method Time Signature Triglycerides 167 (H) [...] Time MRSA-Contact IsolationComment: 0 04/26/2021 11:03 AM CABIN OUTFITTER Infection erroneous documented as of this encounter
--- OUTSIDE RECORDS SUMMARY | 2022-03-22 13:57 | XMS_ITS | Encounter Summary ---
:1960 Author Organization [place] Address [address] [place] [address] Care Team Providers Name Role Phone No Ref-Primary, Physician Primary Care Provider Encounter Details Date Type Department Care Team Description 09/27/2017 Orders Only [facility] Heart Elev ated fasting glucose Clinic [address] [place] [address] Social History Tobacco Use [...] 6.1 (H) 0 - 5.6 % 09/27/2017 HOPE 3:55 PM T [facility] Comment: Normal <5.7% Prediabetes 5.7-6.4% ??Diab etes 6.5% or higher - adopted from ADA consensus guidelines. Specimen Anatomical Collection Method Collection Time Receive d Time (Source) Location / / Volume Laterality Blood specimen 09/27/2017 3:21 PM 018 3:26 (specimen) CDT PM CDT Juan Farias MD LAB - BLOOD ORDERABLES Performing Organization Address City/State/ZIP Code Phon e Number [facility] [address] [place], [place] [address] [facility] [address] [phone] documented in this encounter Visit Diagnoses Diagnosis Elevated fasting glucose Impaired fasting glucose documented in this encounter Additional Health Concerns Infection Onset Date Last Indicated Resolved Time MRSA-Contact IsolationComment: 0 04/26/2021 11:03 AM REGIONAL WILDLIFE AGENT Infection erroneous documented as of this encounter Care Teams Senior Restaurant Manager Relationship Specialty Start Date End Date No Ref-Primary, Physician PCP - General 07/03/14 12/03/21 documented as of this encounter
--- OUTSIDE RECORDS SUMMARY | 2022-03-22 13:57 | XMS_ITS | Encounter Summary ---
:1960 Author Organization [place] Address [address] [place] [address] Care Team Providers Name Role Phone No Ref-Primary, Physician Primary Care Provider [phone] Reason for Visit Reason Onset Date Comments Refill Request 11/30/2017 continues on atorvas tatin 40mg Encounter Details Date Type Department Care Team Description 11/30/2017 Refill [facility] Jarrett, Juan Alegre, Refill Request (continues Clinic Annika HERBERT on atorvastatin 40mg) [address] [facility] [address] [facility] [address] [place] [address] [place] [address] (Wo rk) Social History Tobacco Use Types [...] Time MRSA-Contact IsolationComment: 0 04/26/2021 11:03 AM AUDIOVISUAL PRODUCTION SPECIALIST Infection erroneous documented as of this encounter Care Teams Russian History Professor Relationship Specialty Start Date End Date No Ref-Primary, Physician PCP - General 07/03/14 12/03/21 documented as of this encounter
--- OUTSIDE RECORDS SUMMARY | 2022-03-22 13:57 | XMS_ITS | Encounter Summary ---
:1960 Author Organization [place] Address [address] [place] [address] Care Team Providers Name Role Phone No Ref-Primary, Physician Primary Care Provider Encounter Details Date Type Department Care Team Description 08/29/2016 Telephone [facility] Heart Clinic Daryl Medina RN [place] [id number] [facility] [address] [place] [address] Social History Tobacco Use Types [...] Time MRSA-Contact IsolationComment: 0 04/26/2021 11:03 AM ROLL FORMING MACHINE SET UP MECHANIC Infection erroneous documented as of this encounter Care Teams Continuous Miner Operator Relationship Specialty Start Date End Date No Ref-Primary, Physician PCP - General 07/03/14 12/03/21 documented as of this encounter
--- OUTSIDE RECORDS SUMMARY | 2022-03-22 13:57 | XMS_ITS | Encounter Summary ---
:1960 Author Organization [place] Address [facility] [place] [address] Care Team Providers Name Role Phone No Ref-Primary, Physician Primary Care Provider Reason for Referral - Closed Specialty Diagnoses / Procedures Referred By Contact Refer red To Contact Diagnoses Mixed hyperlipidemia Feliz Roy MD [address] [place] [address] Referral ID Status Reason Start Date Expiration Date Visits Requ ested Visits Authorized [id number] Closed 07/03/2015 12/30/2015 1 1 Reason for Visit Reason Comments Heart Problem annual f/u with Dr. Roy. H X of HTN, hypercholesterolemia Results labs today Encounter Details Date Type Department Care Team Description 07/03/2014 Office Visit [facility] Feliz Roy Mixed hype rlipidemia (Primary Dx); Heart Clinic Annika Alegre MD Hyperlipidemia LDL goal <100; [address] ANEMIA N[place]; [address] Unspecified essential hypertension [place] [address] [place] [address] [phone] Social History Tobacco Use Types Packs/Day Years [...] Lipid Profile ??? ALT ??? Follow-Up with Cutter Wet Machine Orders Placed This Encounter Medications ??? aspirin [...] FACC MT: GF Name: ELIJAH BROWN Account: [id number] : 1960 Service Date: 07/03/2014 Document: [id number] documented in this encounter Plan of Treatment Scheduled Referrals Name Type Priority Associated Diagnoses Order S chedule Follow-Up with Referral Routine Mixed Hyperlipidemia Expec jacques: 08/05/2015 Cutter Wet Machine (Approximate), Expires: 2015 documented as of this encounter Results ALT (08/05/2015 3:11 PM CDT) athologist Signature ALT 6 5 - 30 U/L [facility] Specimen Anatomical Collection Method Collection Time Receive d Time (Source) Location / / Volume Laterality Blood specimen 08/05/2015 3:11 PM 016 3:12 (specimen) CDT PM CDT Feliz Roy MD LAB - BLOOD ORDERABLES Performing Organization Address City/[facility]/ZIP Code Phon e Number [facility] [address] [place] [address] [address] (ABNORMAL) Lipid Profile (08/05/2015 3:11 PM CDT) athologist Signature Cholesterol 163 <200 mg/dL [facility] Triglycerides 145 <150 mg/dL [facility] AT [facility] Comment: Fasting specimen HDL Cholesterol 39 (L) >39 mg/dL [facility] LDL Cholesterol Calculated 95 <100 mg/dL [facility] Comment: Desirable: <100 mg/dl Non HDL Cholesterol 124 <130 mg/dL [facility]ART AT [facility] Specimen Anatomical Collection Method Collection Time Receive d Time (Source) Location / / Volume Laterality Blood specimen 08/05/2015 3:11 PM 016 3:12 (specimen) CDT PM CDT Feliz Roy MD LAB - BLOOD ORDERABLES Performing Organization Address City/State/ZIP Code Phon e Number [facility] [address] [place] [address] [address] documented in this encounter Visit Diagnoses Diagnosis Mixed hyperlipidemia - Primary Hyperlipidemia LDL goal <100 Other and unspecified hyperlipidemia ANEMIA NOS Anemia, unspecified Unspecified essential hypertension documented in this encounter Additional Health Concerns Infection Onset Date Last Indicated Resolved Time MRSA-Contact IsolationComment: 0 04/26/2021 11:03 AM ICHTHYOLOGIST Infection erroneous documented as of this encounter Care Teams Cloth Winder Relationship Specialty Start Date End Date No Ref-Primary, Physician PCP - General 07/03/14 12/03/21 documented as of this encounter
--- OUTSIDE RECORDS SUMMARY | 2022-03-22 13:57 | XMS_ITS | Encounter Summary ---
:1960 Author Organization [place] Address [address] [place] [address] Care Team Providers Name Role Phone No Ref-Primary, Physician Primary Care Provider Reason for Referral - Closed Specialty Diagnoses / Procedures Referred By Contact Refer red To Contact Diagnoses Mixed hyperlipidemia Feliz Roy MD [address] [place] [address] Referral ID Status Reason Start Date Expiration Date Visits Requ ested Visits Authorized [id number] Closed 08/04/2017 08/04/2018 1 1 Reason for Visit Reason Comments Hyperlipidemia - Closed Specialty Diagnoses / Procedures Referred By Contact Refer red To Contact Diagnoses Mixed hyperlipidemia Feliz Roy MD [address] [facility] [address] [place] [address] Referral ID Status Reason Start Date Expiration Date Visits Requ ested Visits Authorized [id number] Closed 08/04/2016 08/04/2017 1 1 Encounter Details Date Type Department Care Team Description 08/04/2016 Office Visit [facility] Feliz Roy Essential hypertension (Primary Dx); Heart Clinic Annika Alegre MD Mixed hyperlipidemia 6[address] [facility] [address] [facility] [address] [place] [address] [place] [address] [phone] Social History Tobacco Use Types Packs/Day Years [...] back in Cardiology Clinic today at the [facility] in [place] for reevaluation of hypertension and dyslipidemia. Mr. [...] have refilled his medications. FELIZ ROY MD, [facility] MT: Name: ELIJAH BROWN Account: [id number] : 1960 Service Date: 08/04/2016 Document: [id number] Feliz Roy MD - 08/04/2016 8:15 AM CDT HPI and Plan: See dictation Orders Placed This Encounter Procedures ??? Basic metabolic panel ??? Lipid Profile ??? ALT ??? Follow-Up with Integrated Circuit Design Engineer Orders Placed This Encounter Medications ??? omeprazole [...] [facility] [address] [place] [address] documented in this encounter Plan of Treatment Scheduled Referrals Name Type Priority Associated Diagnoses Order S chedule Follow-Up with Referral Routine Mixed hyperlipidemia Expec jacques: 08/04/2017 Integrated Circuit Design Engineer (Approximate), Expires: 2017 documented as of this encounter Results (ABNORMAL) Basic metabolic panel (08/04/2016 7:15 AM CDT) [facility] Signature Sodium 138 136 - 145 [facility] mmol/L [facility] A Potassium 5.2 (H) 3.5 - 5.1 [facility] mmol/L [facility] A Chloride 105 98 - 107 [facility] mmol/L [facility] A Carbon Dioxide 26 23 - 29 [facility] mmol/L [facility] A Anion Gap 12.2 6 - 17 [facility] mmol/L [facility] A Glucose 118 (H) 70 - 105 [facility] mg/dL [facility] A Urea Nitrogen 22 7 - 30 [facility] mg/dL [facility] A Creatinine 1.57 (H) 0.70 - [facility] 1.30 mg/dL [facility] A GFR Estimate 46 (L) >60 [facility] mL/min/1.7 [facility] m2 A GFR Estimate If 56 (L) >60 [facility] Black mL/min/1.7 [facility] m2 A Calcium 9.4 8.5 - 10.5 [facility] mg/dL [facility] A Specimen Anatomical Collection Method Collection Time Receive d Time (Source) Location / / Volume Laterality Blood specimen 08/04/2016 7:15 AM 017 8:38 (specimen) CDT AM CDT Feliz Roy MD LAB - BLOOD ORDERABLES Performing Organization Address City/State/ZIP Code Phon e Number [facility] [address] [address] [address] documented in this encounter Visit Diagnoses Diagnosis Essential hypertension - Primary Unspecified essential hypertension Mixed hyperlipidemia documented in this encounter Additional Health Concerns Infection Onset Date Last Indicated Resolved Time MRSA-Contact IsolationComment: 0 04/26/2021 11:03 AM 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
--- OUTSIDE RECORDS SUMMARY | 2022-03-22 13:57 | XMS_ITS | Encounter Summary ---
:1960 Author Organization [place] Address On license of [facility] [place] [address] Care Team Providers Name Role Phone No Ref-Primary, Physician Primary Care Provider [phone] Juan Farias MD Unavailable Edilia Trejo APRN APIARIST Unavailable Glendy vailable Juan Farias MD Unavailable Denise Connell-C Unavailable [phone] Ed[address] Trejo APRN APIARIST Unavailable Glendy vailable Denise Connell-C Unavailable [phone] Juan Farisa MD Primary Care Provider Dana Barry PA-C Unavailable [phone] Encounter Details Date Type Department Care Team Description 04/25/2012 Office Visit-[facility] Heart Juan Farias MD [address] [place] [address] [place] [address] [phone] Social History Tobacco Use Types Packs/Day Years [...] old Referring Physician: JEROME MORENO Referring Clinic: [facility] CURRENT DIAGNOSES 1. 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 Infection erroneous MRSA 05/13/2021 05/13/2021 Rule Out C-difficile 12/06/2021 12/06/2021 12/07/2021 8:46 AM CDT documented as of this encounter Care Teams Sports Lawyer Relationship Specialty Start Date End Date No Ref-Primary, PCP - General 07/03/14 12/03/21 Physician Juan Farias MD PCP - General Cardiovascular Disease 12/04/21 [address] [place] [address] Juan Farias MD Assigned Heart and 02/14/20 10/03/20 [address] Vascular Provider [address] [place], [place] [address] Maya, Assigned Heart and 10/04/20 Edilia Chapman APRN Vascular Provider GUILHERME NO INFO AVAILABLE 02/10/2022 Juan Farias MD Assigned Heart and 04/04/21 07/31/[address] Vascular Provider [address] [place] [address] Denise Connell Physician Embedded Software Development Engineer Cardiovascular Disease 08/12/21 MARIETTA Watson [address] [place], [place] [id number] Maya, Assigned Heart and 08/01/21 2 Edilia Chapman APRN Vascular Provider APIARIST NO INFO AVAILABLE 02/10/2022 Denise Connell Assigned Heart and 08/22/21 01/14/22 MARIETTA Watson Vascular Provider [address] [place], [place] [address] Dana Barry Assigned Heart and 01/15/22 MARIETTA Teague Vascular Provider [address] [place], [place] [address] documented as of this encounter
--- OUTSIDE RECORDS SUMMARY | 2022-03-22 13:57 | XMS_ITS | Encounter Summary ---
:1960 Author Organization [place] Address [address] [place] [address]. [place] [address] Care Team Providers Name Role Phone Unavailable Primary Care Provider Unavailable Encounter Details Date Type Department Care Team Description 07/02/2014 Orders Only [facility] Juan Farias, Mixed hyperlipidemia Heart Clinic Annika HERBERT (Primary Dx) Laboratory [address] [facility] [address] [facility] [address] [place] [address] [place] [address] [phone] Social History Tobacco Use Types Packs/Day Years [...] 5 - 30 U/L [facility] Specimen Anatomical Collection Method Collection Time Receive d Time (Source) Location / / Volume Laterality Blood specimen 07/03/2014 8:59 AM 015 9:00 (specimen) CDT AM CDT Juan Farias MD LAB - BLOOD ORDERABLES Performing Organization Address City/State/ZIP Code Phon e Number [facility] [address] [facility] [place] [address] [address] (ABNORMAL) Lipid Profile (07/03/2014 8:59 AM CDT) athologist Signature Cholesterol 157 0 - 200 [facility] mg/dL [facility] Comment: LDL Cholesterol is the primary guide to therapy. The NCEP recommends further evaluation of: patients with cholesterol greater than 200 mg/dL if additional risk facto rs are present, cholesterol greater than 240 mg/dL, triglycerides greater than 1 50 mg/dL, or HDL less than 40 mg/dL. Triglycerides 129 0 - 150 mg/dL [facility] Comment: Fasting specimen HDL Cholesterol 39 (L) 40 - 118 mg/dL [facility] LDL Cholesterol Calculated 92 70 - 160 mg/dL [facility] Comment: LDL Cholesterol is the primary guide to therapy: LDL-cholesterol goal in high risk patients is <100 mg/dL and in very high risk patients is <70 mg/dL. VLDL-Cholesterol 26 <40 mg/dL [facility] Cholesterol/HDL Ratio 4.0 <4.4 [facility] T [facility] Specimen Anatomical Collection Method Collection Time Receive d Time (Source) Location / / Volume Laterality Blood specimen 07/03/2014 8:59 AM 015 9:00 (specimen) CDT AM CDT Juan Farias MD LAB - BLOOD ORDERABLES Performing Organization Address City/State/ZIP Code Phon e Number [facility] AT [facility] [address] [address] [address] documented in this encounter Visit Diagnoses Diagnosis Mixed hyperlipidemia - Primary documented in this encounter Additional Health Concerns Infection Onset Date Last Indicated Resolved Time MRSA-Contact IsolationComment: 0 04/26/2021 11:03 AM 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
--- OUTSIDE RECORDS SUMMARY | 2022-03-22 13:57 | XMS_ITS | Encounter Summary ---
:1960 Author Organization [place] Address [address] [place] [address] Care Team Providers Name Role Phone No Ref-Primary, Physician Primary Care Provider Reason for Referral - Closed Specialty Diagnoses / Procedures Referred By Contact Refer red To Contact Diagnoses Mixed hyperlipidemia Feliz Roy MD [address] [place] [address] Referral ID Status Reason Start Date Expiration Date Visits Requ ested Visits Authorized [id number] Closed 08/04/2016 08/04/2017 1 1 Reason for Visit Reason Comments Hypertension Annual FU Hyperlipidemia - Closed Specialty Diagnoses / Procedures Referred By Contact Refer red To Contact Diagnoses Mixed hyperlipidemia Feliz Roy MD [address] [place] [address] Referral ID Status Reason Start Date Expiration Date Visits Requ ested Visits Authorized [id number] Closed 07/03/2015 12/30/2015 1 1 Encounter Details Date Type Department Care Team Description 08/05/2015 Office Visit [facility] Feliz Roy, Mixed hyperlipidemia Heart Clinic Annika HERBERT [address] [facility] [address] [place] [address] [place] [address] [phone] Social History Tobacco Use Types Packs/Day Years [...] Lipid Profile ??? ALT ??? Follow-Up with Print Traffic Manager No orders of the defined types were [...] [facility] [address] [place] [address] Feliz Roy MD - 08/05/2015 4:44 PM CDT I had the opportunity to see Mr. Kayden Brown in Cardiology Clinic today at the [facility] in [place] for reevaluation of hypertension and dyslipidemia. Fortunately, [...] will contact me sooner. FELIZ ROY MD, [facility] MT: keke Name: ELIJAH BROWN MRN: [id number] Account: [id number] : 1960 Service Date: 08/05/2015 Document: [id number] documented in this encounter Plan of Treatment Scheduled Referrals Name Type Priority Associated Diagnoses Order S chedule Follow-Up with Referral Routine Mixed hyperlipidemia Expec jacques: 08/04/2016 Print Traffic Manager (Approximate), Expires: 2016 documented as of this encounter Results ALT (08/04/2016 7:15 AM CDT) athologist Signature ALT 9 5 - 30 U/L [facility] [[email or web address] Specimen Anatomical Collection Method Collection Time Receive d Time (Source) Location / / Volume Laterality Blood specimen 08/04/2016 7:15 AM 017 7:16 (specimen) CDT AM CDT Feliz Roy MD LAB - BLOOD ORDERABLES Performing Organization Address City/[facility]/ZIP Code Phon e Number [facility] [[email or web address] [address] [place] [address] [address] Lipid Profile (08/04/2016 7:15 AM CDT) athologist Signature Cholesterol 146 <200 mg/dL [facility] [[email or web address] Triglycerides 64 <150 mg/dL [facility] [[email or web address] Comment: Fasting specimen HDL Cholesterol 43 >39 mg/dL [facility] [[email or web address] AT [facility] LDL Cholesterol Calculated 90 <100 mg/dL [facility] Comment: Desirable: <100 mg/dl Non HDL Cholesterol 103 <130 mg/dL [facility] [[email or web address] Specimen Anatomical Collection Method Collection Time Receive d Time (Source) Location / / Volume Laterality Blood specimen 08/04/2016 7:15 AM 017 7:16 (specimen) CDT AM CDT Feliz Ryo MD LAB - BLOOD ORDERABLES Performing Organization Address City/[facility]/ZIP Code Phon e Number [facility] [[email or web address] [address] [address] [address] documented in this encounter Visit Diagnoses Diagnosis Mixed hyperlipidemia documented in this encounter Additional Health Concerns Infection Onset Date Last Indicated Resolved Time MRSA-Contact IsolationComment: 0 04/26/2021 11:03 AM ORGANISATION AND METHODS ANALYST Infection erroneous documented as of this encounter Care Teams Hardwood Floor Refinisher Relationship Specialty Start Date End Date No Ref-Primary, Physician PCP - General 07/03/14 12/03/21 documented as of this encounter
--- OUTSIDE RECORDS SUMMARY | 2022-03-22 13:57 | XMS_ITS | Encounter Summary ---
:1960 Author Organization [place] Address [address] [place] [address] Care Team Providers Name Role Phone No Ref-Primary, Physician Primary Care Provider [phone] Encounter Details Date Type Department Care Team Description 09/14/2017 Orders Only [facility] Kenzie Kenney h yperlipidemia (Primary Dx); Heart Clinic Annika Hernández RN Benign essential hypertensio n [address] [facility] [address] [place] [address] Social History Tobacco Use Types [...] mg/dL 09/15/2017 9:16 AM [facility] Creatinine 1.22 0.70 - 1.30 09/15/2017 9:16 AM [facility] HEAR T AT mg/dL [facility] GFR Estimate 62 >60 09/15/2017 9:16 AM [facility] HEAR T AT mL/min/1.7m2 [facility] GFR Estimate If 75 >60 09/15/2017 9:16 AM [facility] H EART AT Black mL/min/1.7m2 [facility] Calcium 9.7 8.5 - 10.5 09/15/2017 9:16 AM [facility] HEART AT mg/dL [facility] Specimen Anatomical Collection Method Collection Time Receive d Time (Source) Location / / Volume Laterality Blood specimen 09/15/2017 8:20 AM 018 8:21 (specimen) CDT AM CDT Juan Farias MD LAB - BLOOD ORDERABLES Performing Organization Address City/State/ZIP Code Phon e Number [facility] [address] [place] [address] [address] ALT (09/15/2017 8:20 AM CDT) P athologist Signature ALT 8 5 - 30 U/L 09/15/2017 [facility] HE[facility] AT 9:16 AM [facility] Specimen Anatomical Collection Method Collection Time Receive d Time (Source) Location / / Volume Laterality Blood specimen 09/15/2017 8:20 AM 018 8:21 (specimen) CDT AM CDT Juan Farias MD LAB - BLOOD ORDERABLES Performing Organization Address City/State/ZIP Code Phon e Number [facility] [address] [place] [address] [address] Lipid Profile (09/15/2017 8:20 AM CDT) P athologist Signature Cholesterol 163 <200 mg/dL 09/15/2017 [facility] HEART AT 9:16 AM [facility] Triglycerides 119 <150 mg/dL 09/15/2017 [facility] HEART AT 9:16 AM [facility] Comment: Fasting specimen HDL Cholesterol 46 >39 mg/dL 09/15/2017 9:16 AM P H EART AT [facility] LDL Cholesterol 93 <100 mg/dL 09/15/2017 9:16 AM [facility] HEART AT Calculated [facility] Comment: Desirable: <100 mg/dl Non HDL Cholesterol 117 <130 mg/dL 09/15/2017 9:16 AM P HEART AT [facility] Specimen Anatomical Collection Method Collection Time Receive d Time (Source) Location / / Volume Laterality Blood specimen 09/15/2017 8:20 AM 018 8:21 (specimen) [facility] F[facility] MD LAB - BLOOD ORDERABLES Performing Organization Address City/State/ZIP Code Phon e Number [facility] AT [facility] [address] [address] [address] documented in this encounter Visit Diagnoses Diagnosis Mixed hyperlipidemia - Primary Benign essential hypertension Essential hypertension, benign documented in this encounter Additional Health Concerns Infection Onset Date Last Indicated Resolved Time MRSA-Contact IsolationComment: 0 04/26/2021 11:03 AM 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
--- OUTSIDE RECORDS SUMMARY | 2022-03-22 13:57 | XMS_ITS | Encounter Summary ---
:1960 Author Organization [place] Address [address] [place] [address]. [place] [address] Care Team Providers Name Role Phone No Ref-Primary, Physician Primary Care Provider [phone] Reason for Visit Reason Comments Annual Visit FU Cardiac testing lab Encounter Details Date Type Department Care Team Description 11/29/2018 Office Visit [facility] Feliz Roy Hyperlipid emia LDL goal <100 (Primary Dx); Heart Clinic Annika Alegre MD Essential hypertension; [address] [facility] [address] [facility] Elev ed fasting glucose [place] [address] [place] [address] [place] [address] Social History Tobacco Use Types Packs/Day Years [...] Brown in Cardiology Clinic today at the [facility] in [place] for reevaluation of hypertension and dyslipidemia. In [...] of coronary artery disease. FELIZ ROY MD, [facility] MT: JOELLE Name: ELIJAH BROWN MRN: [id number] Account: [id number] : 1960 Service Date: 11/29/2018 Document: [id number] Feliz Roy MD - 11/29/2018 11:15 AM CDT HPI and Plan: See dictation Orders Placed This Encounter Procedures ??? Basic metabolic panel ??? Lipid Profile ??? ALT ??? Hemoglobin A1c ??? Follow-Up with River Expedition Guide No orders of the defined types were [...] on phone: None Gets together: None Attends bahai service: None Active member of club or organization: None Attends meetings of clubs or organizations: None Relationship status: None ??? Intimate partner violence: Fear of current or ex partner: None Emotionally abused: None Physically abused: None Forced sexual activity: None Other Topics Concern ??? Parent/sibling w/ CABG, MD or angioplasty before 65F 55M? No ??? [...] 5.7 (H) 0 - 5.6 % 01/27/2020 [place] 4:00 PM CDT [facility] Comment: Normal <5.7% Prediabetes 5.7-6.4% ??Diab etes 6.5% or higher - adopted from ADA consensus guidelines. Specimen Anatomical Collection Method Collection Time Receive d Time (Source) Location / / Volume Laterality Blood specimen 01/27/2020 2:58 PM 020 3:03 (specimen) CDT PM CDT Feliz Roy MD LAB - BLOOD ORDERABLES Performing Organization Address City/State/ZIP Code Phon e Number M [facility] [address] [place] [address] [phone] [facility] [address] [place] [address], U [phone] ALT (01/27/2020 2:58 PM CDT) athologist Signature ALT 46 0 - 70 U/L 01/27/2020 [facility] 3:54 PM CDT HOSPITAL Specimen Anatomical Collection Method Collection Time Receive d Time (Source) Location / / Volume Laterality Blood specimen 01/27/2020 2:58 PM 020 3:03 (specimen) CDT PM CDT Feliz Roy MD LAB - BLOOD ORDERABLES Performing Organization Address City/State/ZIP Code Phon e Number M [facility] [address] [place], [place] [address] [facility] [address] [place], [place] [address], [facility] [phone] (ABNORMAL) Lipid Profile (01/27/2020 2:58 PM CDT) athologist Signature Cholesterol 222 (H) <200 mg/dL 01/27/2020 [place] 3:54 PM [facility] Comment: Desirable: <200 mg/dl Triglycerides 99 <150 mg/dL 01/27/2020 3:54 PM CDT [facility] Comment: Fasting specimen HDL Cholesterol 87 >39 mg/dL 01/27/2020 3:54 PM [facility] LDL Cholesterol 115 (H) <100 mg/dL 01/27/2020 3:54 PM [facility] Comment: Above desirable: ??100-129 mg/dl Borderline High: ??130-159 mg/dL High: ? 160-189 mg/dL Very high: ? >189 mg/dl Non HDL Cholesterol 135 (H) <130 mg/dL 01/27/2020 3:54 PM CDT [facility] Comment: Above Desirable: ??130-159 mg/dl Borderline high: ??160-189 mg/dl High: ? 190-219 mg/dl Very high: ? >219 mg/dl Specimen Anatomical Collection Method Collection Time Receive d Time (Source) Location / / Volume Laterality Blood specimen 01/27/2020 2:58 PM 020 3:03 (specimen) CDT PM CDT Feliz Roy MD LAB - BLOOD ORDERABLES Performing Organization Address City/State/ZIP Code Phon e Number M [facility] [address] [place] [address] [facility] [address] [place] [address], [facility] [phone] Basic metabolic panel (01/27/2020 2:58 PM CDT) athologist Signature Sodium 133 133 - 144 01/27/2020 [place] mmol/L 3:46 PM [facility] Potassium 3.7 3.4 - 5.3 01/27/2020 [place] mmol/L 3:46 PM [facility] Chloride 101 94 - 109 01/27/2020 [place] mmol/L 3:46 PM [facility] Carbon Dioxide 24 20 - 32 01/27/2020 [place] mmol/L 3:54 PM [facility] Anion Gap 8 3 - 14 01/27/2020 [place] mmol/L 3:54 PM [facility] Glucose 85 70 - 99 01/27/2020 [place] mg/dL 3:54 PM [facility] Comment: Fasting specimen Urea Nitrogen 13 7 - 30 mg/dL 01/27/2020 3:54 PM [facility] Creatinine 1.10 0.66 - 1.25 mg/dL 01/27/2020 3:54 PM [facility] GFR Estimate 74 >60 01/27/2020 3:54 PM [facility] mL/min/{1.73_m2} HOSPITAL Comment: Non GFR Calc Starting 04/10/2018, serum creatinine ba sed estimated GFR (eGFR) will be calculated using the Chronic Kidney Dise [facility] Epidemiology Collaboration (CKD-EPI) equation. GFR Estimate If 86 >60 mL/min/{1.73_m2} 01/27/2020 3: 54 PM [facility] Comment: GFR Calc Starting 04/10/2018, serum creatinine ba sed estimated GFR (eGFR) will be calculated using the Chronic Kidney Dise [facility] Epidemiology Collaboration (CKD-EPI) equation. Calcium 8.8 8.5 - 10.1 mg/dL 01/27/2020 3:54 PM [facility] Specimen Anatomical Collection Method Collection Time Receive d Time (Source) Location / / Volume Laterality Blood specimen 01/27/2020 2:58 PM 020 3:03 (specimen) CDT PM CDT Feliz Roy MD LAB - BLOOD ORDERABLES Performing Organization Address City/State/ZIP Code Phon e Number M [facility] [address] [place], [place] [address] [facility] [address] [phone] documented in this encounter Visit Diagnoses Diagnosis Hyperlipidemia LDL goal <100 - Primary Other and unspecified hyperlipidemia Essential hypertension Unspecified essential hypertension Elevated fasting glucose Impaired fasting glucose documented in this encounter Additional Health Concerns Infection Onset Date Last Indicated Resolved Time MRSA-Contact IsolationComment: 0 04/26/2021 11:03 AM 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
--- OUTSIDE RECORDS SUMMARY | 2022-03-22 13:57 | XMS_ITS | Encounter Summary ---
:1960 Author Organization [place] Address [address] [place] [address] Care Team Providers Name Role Phone No Ref-Primary, Physician Primary Care Provider [phone] Reason for Visit Reason Onset Date Comments Refill Request 12/06/2017 amlodipine Encounter Details Date Type Department Care Team Description 12/06/2017 Refill [facility] Heart Jarrett, Juan Alegre, Refill Request Clinic Annika HERBERT (amlodipine) [address] [facility] [address] [facility] [address] [place] [address] [place] [address] ( rk) Social History Tobacco Use Types [...] Time MRSA-Contact IsolationComment: 0 04/26/2021 11:03 AM 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
--- OUTSIDE RECORDS SUMMARY | 2022-03-22 13:57 | XMS_ITS | Encounter Summary ---
:1960 Author Organization [place] Address [facility] [place] [address] Care Team Providers Name Role Phone No Ref-Primary, Physician Primary Care Provider [phone] Reason for Visit Reason Comments Annual Visit hypertension and dyslipidem ia FU Cardiac testing lab - Closed Specialty Diagnoses / Procedures Referred By Contact Refer red To Contact Diagnoses Mixed hyperlipidemia Feliz Roy MD [address] [place] [address] Referral ID Status Reason Start Date Expiration Date Visits Requ ested Visits Authorized [id number] Closed 08/04/2017 08/04/2018 1 1 Encounter Details Date Type Department Care Team Description 09/15/[address] [facility] Feliz Roy Mixed hype rlipidemia (Primary Dx); Heart Clinic Idris Alegre MD Benign essential hypertension; [address] [facility] [address] Elevat ed fasting glucose [facility] [address] [place] [address] [place] [id number] Social History Tobacco Use Types Packs/Day Years [...] Brown in Cardiology Clinic today at the [facility] in [place] for re-evaluation of hypertension and dyslipidemia. In [...] A1c level in 1 month in the [facility] and get back to him about [...] again in 1 year. FELIZ ROY MD, [facility] MT: NARESH Name: ELIJAH BROWN Account: [id number] : 1960 Service Date: 09/15/2017 Document: [id number] Feliz Roy MD - 09/15/2017 9:45 AM CDT HPI and Plan: See dictation Orders Placed This Encounter Procedures ??? Basic metabolic panel ??? Lipid Profile ??? ALT ??? Hemoglobin A1c ??? Hemoglobin A1c ??? Follow-Up with Solutions Sales Consultant No orders of the defined types were [...] Roy MD [address] [place] [address] documented in this encounter Plan of Treatment Not on filedocumented as of this encounter Results (ABNORMAL) Hemoglobin A1c (11/29/2018 10:00 AM CDT) athologist Signature Hemoglobin A1C 6.1 (H) 0 - 5.6 % 11/29/2018 [place] 11:22 AM CDT [facility] Comment: Normal <5.7% Prediabetes 5.7-6.4% ??Diab etes 6.5% or higher - adopted from ADA consensus guidelines. Specimen Anatomical Collection Method Collection Time Receive d Time (Source) Location / / Volume Laterality Blood specimen 11/29/2018 10:00 9 (specimen) AM CDT 10:01 AM CDT Feliz Roy MD LAB - BLOOD ORDERABLES Performing Organization Address City/State/ZIP Code Phon e Number M [facility] [address] [place] [address] [phone] [facility] [address] [place] [address], [facility] [phone] (ABNORMAL) Hemoglobin A1c (09/27/2017 3:21 PM CDT) athologist Signature Hemoglobin A1C 6.1 (H) 0 - 5.6 % 09/27/2017 [place] 3:55 PM CDT [facility] Comment: Normal <5.7% Prediabetes 5.7-6.4% ??Diab etes 6.5% or higher - adopted from ADA consensus guidelines. Specimen Anatomical Collection Method Collection Time Receive d Time (Source) Location / / Volume Laterality Blood specimen 09/27/2017 3:21 PM 018 3:26 (specimen) CDT PM CDT Feliz Roy MD LAB - BLOOD ORDERABLES Performing Organization Address City/State/ZIP Code Phon e Number M [facility] [address] [place], [place] [address] [facility] [address] [place], [place] [address] [facility] [phone] documented in this encounter Visit Diagnoses Diagnosis Mixed hyperlipidemia - Primary Benign essential hypertension Essential hypertension, benign Elevated fasting glucose Impaired fasting glucose documented in this encounter Additional Health Concerns Infection Onset Date Last Indicated Resolved Time MRSA-Contact IsolationComment: 0 04/26/2021 11:03 AM CORSAGE MAKER Infection erroneous documented as of this encounter Care Teams Mailer Apprentice Relationship Specialty Start Date End Date No Ref-Primary, Physician PCP - General 07/03/14 12/03/21 documented as of this encounter"
--- OUTSIDE RECORDS SUMMARY | 2022-03-22 13:57 | XMS_ITS | Encounter Summary ---
:1960 Author Organization [place] Address [address] [place] [address]. [place] [address] Care Team Providers Name Role Phone No Ref-Primary, Physician Primary Care Provider Reason for Visit Reason Onset Date Comments Refill Request 06/01/2015 Lipitor, Lisinopril OV 08/05/2015 Encounter Details Date Type Department Care Team Description 06/01/2015 Refill [facility] Heart JarrettJuan ceron, Refill Request (Lipitor, Clinic Annika HERBERT Lisinopril OV 08/05/2015) [address] [place] [address] [place], [place] [address] (Wo rk) Social History Tobacco Use Types [...] Time MRSA-Contact IsolationComment: 0 04/26/2021 11:03 AM 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
--- OUTSIDE RECORDS SUMMARY | 2022-03-22 13:57 | XMS_ITS | Encounter Summary ---
:1960 Author Organization [place] Address [facility] [place] [address] Care Team Providers Name Role Phone No Ref-Primary, Physician Primary Care Provider [phone] Juan Farias MD Unavailable Edilia Trejo APRN CAPABILITY LEAD Unavailable Glendy vailable Juan Farias MD Unavailable Denise Connell-C Unavailable [phone] Edilia Trejo APRN CAPABILITY LEAD Unavailable Glendy vailable Denise Connell-C Unavailable [phone] Juan Farias MD Primary Care Provider Dana Barry PA-C Unavailable [phone] Encounter Details Date Type Department Care Team Description 06/05/2013 Office Visit-[facility] Heart Juan Farias MD [address] [place] [address] [place] [address] [phone] Social History Tobacco Use Types Packs/Day Years [...] old Referring Physician: JEROME MORENO Referring Clinic: [facility] CURRENT DIAGNOSES 1. - Hypertension, benign, 401.1 [...] with female partner; Place of - [place]; Job Description - makes [employer]; Hours Worked - 50 hours per week; [...] MRSA-Contact IsolationComment: 0 04/26/2021 11:03 AM DAIRY DEPARTMENT MANAGER Infection erroneous MRSA 05/13/2021 05/13/2021 Rule Out C-difficile 12/06/2021 12/06/2021 12/07/2021 8:46 AM CDT documented as of this encounter Care Teams Tobacco Blender Relationship Specialty Start Date End Date No Ref-Primary, PCP - General 07/03/14 12/03/21 Physician Juan Farias MD PCP - General Cardiovascular Disease 12/04/21 [address] [place] [address] Juan Farias MD Assigned Heart and 02/14/20 10/03/20 [address] Vascular Provider [address] [place] [address] Maya, Assigned Heart and 10/04/20 Edilia Chapman APRN Vascular Provider CAPABILITY LEAD NO INFO AVAILABLE 02/10/2022 Juan Farias MD Assigned Heart and 04/04/21 07/31/21 [address] Vascular Provider [address] [place], [place] [address] Denise Connell Physician Pill Machine Operator Cardiovascular Disease 08/12/21 MARIETTA Watson [address] [place], [place] [address] Maya, Assigned Heart and 08/01/21 2 Edilia Chapman APRN Vascular Provider GUILHERME NO INFO AVAILABLE 02/10/2022 Denise Connell Assigned Heart and 08/22/21 01/14/22 MARIETTA Watson Vascular Provider [address] [place], [place] [address] Dana Barry Assigned Heart and 01/15/22 MARIETTA Teague Vascular Provider [address] [place], [place] [address] documented as of this encounter
--- OUTSIDE RECORDS SUMMARY | 2022-03-22 13:57 | XMS_ITS | Encounter Summary ---
:1960 Author Organization [place] Address [address] [place] [address] Care Team Providers Name Role Phone Unavailable Primary Care Provider Unavailable Reason for Visit Reason Onset Date Comments Refill Request 05/16/2014 Lipitor, Lisinopril/ Refill letter Encounter Details Date Type Department Care Team Description 05/16/2014 Refill [facility] Heart Juan Farias, Refill Request (Lipitor, Clinic Annika HERBERT Lisinopril/Refill [address] [facility] [address] letter) [address] [place] [address] [place] [address] (Wo rk) Social History Tobacco Use Types [...] Time MRSA-Contact IsolationComment: 0 04/26/2021 11:03 AM DENTAL CERAMIST Infection erroneous documented as of this encounter
--- OUTSIDE RECORDS SUMMARY | 2022-03-22 13:57 | XMS_ITS | Encounter Summary ---
:1960 Author Organization [place] Address [address] [place] [address] Care Team Providers Name Role Phone Unavailable Primary Care Provider Unavailable Encounter Details Date Type Department Care Team Description 06/05/2013 Historic Results [facility] Heart Unknown, Doct or, Clinic [address] [place] [address] Social History Tobacco Use Types Packs/Day Years [...] 12:00 AM Resu lts for this RESULTS TELEGRAPH SERVICE CLERK procedure are i n the results section. documented in this encounter Results GEMMS Historical Results (06/05/2013 12:00 AM TELEGRAPH SERVICE CLERK) [facility] gist Method Time Signature Triglycerides 63 [...] Time MRSA-Contact IsolationComment: 0 04/26/2021 11:03 AM TELEGRAPH SERVICE CLERK Infection erroneous documented as of this encounter
--- OUTSIDE RECORDS SUMMARY | 2022-03-22 13:57 | XMS_ITS | Encounter Summary ---
:1960 Author Organization [place] Address [address] [place] [address] Care Team Providers Name Role Phone No Ref-Primary, Physician Primary Care Provider Encounter Details Date Type Department Care Team Description 08/05/2015 Orders Only [facility] Heart [facility] Mixed hyperlipidemia Index Laboratory [address] [facility] [address] [place] [address] Social History Tobacco Use Types Packs/Day Years [...] 5 - 30 U/L [facility] Specimen Anatomical Collection Method Collection Time Receive d Time (Source) Location / / Volume Laterality Blood specimen 08/05/2015 3:11 PM 016 3:12 (specimen) CDT PM CDT Juan Farias MD LAB - BLOOD ORDERABLES Performing Organization Address City/State/ZIP Code Phon e Number [facility] [address] [facility] [place] [address] [address] (ABNORMAL) Lipid Profile (08/05/2015 3:11 PM CDT) P athologist Signature Cholesterol 163 <200 mg/dL [facility] Triglycerides 145 <150 mg/dL [facility] Comment: Fasting specimen HDL Cholesterol 39 (L) >39 mg/dL [facility] LDL Cholesterol Calculated 95 <100 mg/dL [facility] Comment: Desirable: <100 mg/dl Non HDL Cholesterol 124 <130 mg/dL [facility] Specimen Anatomical Collection Method Collection Time Receive d Time (Source) Location / / Volume Laterality Blood specimen 08/05/2015 3:11 PM 016 3:12 (specimen) CDT PM CDT Juan Farias MD LAB - BLOOD ORDERABLES Performing Organization Address City/State/ZIP Code Phon e Number [facility] [address] [place] [address] [address] documented in this encounter Visit Diagnoses Diagnosis Mixed hyperlipidemia documented in this encounter Additional Health Concerns Infection Onset Date Last Indicated Resolved Time MRSA-Contact IsolationComment: 0 04/26/2021 11:03 AM OPTICAL MECHANIC Infection erroneous documented as of this encounter Care Teams Unit Trust Manager Relationship Specialty Start Date End Date No Ref-Primary, Physician PCP - General 07/03/14 12/03/21 documented as of this encounter
--- OUTSIDE RECORDS SUMMARY | 2022-03-22 13:57 | XMS_ITS | Encounter Summary ---
:1960 Author Organization [place] Address [address] [place] [address] Care Team Providers Name Role Phone No Ref-Primary, Physician Primary Care Provider Reason for Visit Reason Onset Date Comments Results 08/04/2016 BMP Encounter Details Date Type Department Care Team Description 08/04/2016 Telephone [facility] Heart Raghu Pandey, Results (BMP) Clinic Annika HORNE [address] [facility] [address] [place] [id number] Social History Tobacco Use Types Packs/Day Years [...] showed a K+ of 5.2 and a Computer Designer of 1.57. Per Dr. Farias , he [...] Time Signature Sodium 137 133 - 144 [place] mmol/L [facility] Potassium 4.0 3.4 - 5.3 [place] mmol/L [facility] Chloride 104 94 - 109 [place] mmol/L [facility] Carbon Dioxide 26 20 - 32 [place] mmol/L [facility] Anion Gap 7 3 - 14 [place] mmol/L [facility] Glucose 88 70 - 99 [place] mg/dL [facility] Urea Nitrogen 19 7 - 30 [place] mg/dL [facility] Creatinine 1.31 (H) 0.66 - [place] 1.25 mg/dL [facility] GFR Estimate 57 (L) >60 [place] mL/min/1.[address] Comment: Non GFR Calc GFR Estimate If Black 69 >60 mL/min/1.7m2 F [facility] Comment: GFR Calc Calcium 9.0 8.5 - 10.1 mg/dL [facility] Specimen Anatomical Collection Method Collection Time Receive d Time (Source) Location / / Volume Laterality Blood specimen 08/12/2016 3:03 PM 017 3:04 (specimen) CDT PM CDT Juan Fraias MD LAB - BLOOD ORDERABLES Performing Organization Address City/State/ZIP Code Phon e Number [facility] [address] [place] [address] [facility] [address] [phone] documented in this encounter Visit Diagnoses Diagnosis Benign essential hypertension - Primary Essential hypertension, benign documented in this encounter Additional Health Concerns Infection Onset Date Last Indicated Resolved Time MRSA-Contact IsolationComment: 0 04/26/2021 11:03 AM QUALITY CONTROL ASSOCIATE Infection erroneous documented as of this encounter Care Teams Underwater Photographer Relationship Specialty Start Date End Date No Ref-Primary, Physician PCP - General 07/03/14 12/03/21 documented as of this encounter
--- OUTSIDE RECORDS SUMMARY | 2022-03-22 13:57 | XMS_ITS | Encounter Summary ---
:1960 Author Organization [place] Address [address] [place] [address]. [place] [address] Care Team Providers Name Role Phone No Ref-Primary, Physician Primary Care Provider Reason for Visit Reason Onset Date Comments Refill Request 09/02/2015 Lipitor, Lisinopril OV 07/2015 Encounter Details Date Type Department Care Team Description 09/02/2015 Refill [facility] Heart Juan Farias, Refill Request (Lipitor, Clinic Idris HERBERT Lisinopril OV 07/2015) [address] [place] [address] [place] [id number] (Wo rk) Social History Tobacco Use Types [...] Time MRSA-Contact IsolationComment: 0 04/26/2021 11:03 AM LAUNDRY FOLDER Infection erroneous documented as of this encounter Care Teams Structural Steel Detailer Relationship Specialty Start Date End Date No Ref-Primary, Physician PCP - General 07/03/14 12/03/21 documented as of this encounter
--- OUTSIDE RECORDS SUMMARY | 2022-03-22 13:57 | XMS_ITS | Encounter Summary ---
:1960 Author Organization [place] Address [address] [place] [address] Care Team Providers Name Role Phone No Ref-Primary, Physician Primary Care Provider Encounter Details Date Type Department Care Team Description 07/03/2014 Orders Only [facility] Heart [facility] Mixed hyperlipidemia [facility] [address] [facility] [address] [place] [address] Social History Tobacco Use Types Packs/Day Years [...] 5 - 30 U/L [facility] Specimen Anatomical Collection Method Collection Time Receive d Time (Source) Location / / Volume Laterality Blood specimen 07/03/2014 8:59 AM 015 9:00 (specimen) CDT AM CDT Juan Farias MD LAB - BLOOD ORDERABLES Performing Organization Address City/State/ZIP Code Phon e Number [facility] [address] [facility] [place] [address] [address] (ABNORMAL) Lipid Profile (07/03/2014 8:59 AM CDT) P athologist Signature Cholesterol 157 0 - 200 [facility] mg/dL [facility] Comment: LDL Cholesterol is the primary guide to therapy. The NCEP recommends further evaluation of: patients with cholesterol greater than 200 mg/dL if additional risk facto rs are present, cholesterol greater than 240 mg/dL, triglycerides greater than 1 50 mg/dL, or HDL less than 40 mg/dL. Triglycerides 129 0 - 150 mg/dL [facility] Comment: Fasting specimen HDL Cholesterol 39 (L) 40 - 118 mg/dL [facility] LDL Cholesterol Calculated 92 70 - 160 mg/dL [facility] Comment: LDL Cholesterol is the primary guide to therapy: LDL-cholesterol goal in high risk patients is <100 mg/dL and in very high risk patients is <70 mg/dL. VLDL-Cholesterol 26 <40 mg/dL [facility] Cholesterol/HDL Ratio 4.0 <4.4 [facility] Specimen Anatomical Collection Method Collection Time Receive d Time (Source) Location / / Volume Laterality Blood specimen 07/03/2014 8:59 AM 015 9:00 (specimen) CDT AM CDT Juan Farias MD LAB - BLOOD ORDERABLES Performing Organization Address City/State/ZIP Code Phon e Number [facility] [address] [place] [address] [address] documented in this encounter Visit Diagnoses Diagnosis Mixed hyperlipidemia documented in this encounter Additional Health Concerns Infection Onset Date Last Indicated Resolved Time MRSA-Contact IsolationComment: 0 04/26/2021 11:03 AM RN CRITICAL CARE Infection erroneous documented as of this encounter Care Teams Painter Rough Relationship Specialty Start Date End Date No Ref-Primary, Physician PCP - General 07/03/14 12/03/21 documented as of this encounter
--- OUTSIDE RECORDS SUMMARY | 2022-03-22 13:58 | XMS_ITS | Encounter Summary ---
:1960 Author Organization [place] Address [address] [place] [address] Care Team Providers Name Role Phone Unavailable [...] Time MRSA-Contact IsolationComment: 0 04/26/2021 11:03 AM OYSTER CULTIVATOR Infection erroneous documented as of this encounter
--- OUTSIDE RECORDS SUMMARY | 2022-03-22 13:58 | XMS_ITS | Encounter Summary ---
:1960 Author Organization [place] Address [address] [place] [address] Care Team Providers Name Role Phone Unavailable [...] as of this encounter Progress Notes Interface, Supervisor Machining - 07/10/2010 2:34 PM CDT Discharge Summary - Reason for Discharge All goals and outcomes met, no further needs identified - Progress toward Goals met achieving short term goals/grants officer goals - Comments FOUNDRY WORKER goals to be met by 03/26/09. 1. [...] Time MRSA-Contact IsolationComment: 0 04/26/2021 11:03 AM IT CONSULTING DIRECTOR Infection erroneous documented as of this encounter
--- OUTSIDE RECORDS SUMMARY | 2022-03-22 13:58 | XMS_ITS | Encounter Summary ---
:1960 Author Organization [place] Address [address] [place] [address] Care Team Providers Name Role Phone Unavailable Primary Care Provider Unavailable Encounter Details Date Type Department Care Team Description 06/30/2009 Results Only [facility] Rina Shin MD Hospital Results EMERGENCY [facility]YSI CECILIO MCKOY [address] [place], [place] [address] (Wo rk) Social History [...] 06/30/2009 11:31 AM Results for this CONTRAST CONSULTING TECHNICAL MANAGER procedure are i n the results section. documented in this encounter Results CT SCAN HEAD/BRAIN (06/30/2009 11:31 AM CONSULTING TECHNICAL MANAGER) Anatomical Region Laterality Modality Other Specimen (Source) Anatomical Collection Method Collection Time Re ceived Time Location / / Volume Laterality 06/30/2009 11:31 AM CONSULTING TECHNICAL MANAGER Impressions 07/01/2009 12:[address] HEAD WITHOUT CONTRAST June 30, 2009 [...] Time MRSA-Contact IsolationComment: 0 04/26/2021 11:03 AM CONSULTING TECHNICAL MANAGER Infection erroneous documented as of this encounter
--- OUTSIDE RECORDS SUMMARY | 2022-03-22 13:58 | XMS_ITS | Encounter Summary ---
:1960 Author Organization [place] Address [facility] [place] [address] Care Team Providers Name Role Phone Unavailable Primary Care Provider Unavailable Encounter Details Date Type Department Care Team Description 03/20/2009 Historic Notes INTERFACED REPORT Eloina Alford, PT MS BELL[facility] C [facility]TER [address] [facility] [address] [place], [place] [address] (Wo rk) Social History Tobacco [...] Bed Mobility: Rolling/Turning - Level of independent Amoret: Bed Mobility: Scooting/Bridging - Level of independent Amoret: Bed Mobility: Sit to Supine - Level of independent Amoret: Bed Mobility: Supine to Sit - Level of independent Amoret: Transfer: Sit to Stand - Level of stand-by assist Amoret: - Weight-Bearing full weight-bearing Restrictions: - Assistive Device: pt held onto IV pole Transfer: Stand to Sit - Level of stand-by assist Amoret: - Physical verbal cues; for safe hand placement Assist/Nonphysical Assist: - Weight-Bearing full weight-bearing Restrictions: - Assistive Device: no AD - pt used IV pole Sit/Stand Transfer Safety Analysis - Impairments impaired balance Contributing to Impaired Transfers: Gait Skills - Level of minimum assist (75% patients effort) Amoret: - Assistive Device: no AD - held [...] LE Dynamic: activities seated at EOB - Tlb-yi-Uleud Balance: stand-by assist - Standing Balance: minimum [...] Time MRSA-Contact IsolationComment: 0 04/26/2021 11:03 AM SYSTEMS ANALYST DEVELOPER Infection erroneous documented as of this encounter
--- OUTSIDE RECORDS SUMMARY | 2022-03-22 13:58 | XMS_ITS | Encounter Summary ---
:1960 Author Organization [place] Address [address] [place] [address] Care Team Providers Name Role Phone Unavailable [...] as of this encounter Progress Notes Interface, Scientific Advisor - 07/10/2010 8:27 AM CDT Patient Status - Diagnosis/Procedure Alcohol Withdrawl - Physical status Stable (s/s of potential complications absent or manageable) - Psychosocial status Stable Discharge Planning - Discharge From: [facility] - Patient Care Unit: Med Surg 5 [...] Other Education, Rule 25 for CD evaluation: [facility], and [facility] in [facility] Instructions: [phone] 1. You must apply in person at [facility] in [facility] / 3rd floor 2. First come first served - be there by 9:00am 3. THEY ARE CLOSED ON WED[facility]S Follow Up Care - Physician/clinician [facility] CD Evaluation name: - When to see [facility] physician/clinician: Debi Mcdonald (RN)[Signed 12:54] Authored: Patient Status, Discharge Planning, Discharge Information, Medications and Prescriptions, Support Services, Special Care Needs and Instructions, Follow Up Care Ester Berumen (REAL ESTATE FIRM MANAGER)[Signed 12:20] Authored: Other Discharge Education, Materials, and Instructions Interface, Scientific Advisor - 07/10/2010 8:27 AM CDT SARAH ESCOBAR [...] and gave pt the phone number of [facility] in [facility] ([phone]) and directions to the facility. He was informed that the [facility] does not take applications on Mon'. It [...] other needs identified [Signature] Author: Ester Berumen (REAL ESTATE FIRM MANAGER) [Signed 12:32] Interface, Scientific Advisor - 07/10/2010 8:27 AM CDT Discharge Summary - Reason for Discharge Discharge from facility, home with CD resources - Progress toward Goals not met achieving short term goals/termite inspector goals - Barriers to achieving Early discharge [...] Time MRSA-Contact IsolationComment: 0 04/26/2021 11:03 AM FRUIT LOADER Infection erroneous documented as of this encounter
--- OUTSIDE RECORDS SUMMARY | 2022-03-22 13:58 | XMS_ITS | Encounter Summary ---
:1960 Author Organization [place] Address [address] [place] [address] Care Team Providers Name Role Phone Unavailable Primary Care Provider Unavailable Encounter Details Date Type Department Care Team Description 07/03/2009 Historic Results [facility] Josue Crain, Hospitalists DO [address] [place], [place] [address] [phone] Social History Tobacco Use Types Packs/Day Years [...] lts for this AND B (QUEST) AM MACHINE SHOP LEAD MAN procedure are in the results section. C DIFFICILE CULTURE Routine 07/03/2009 11:20 Resu lts for this AM MACHINE SHOP LEAD MAN procedure are i n the results section. TSH Timed 07/03/2009 9:54 AM Results f or this MACHINE SHOP LEAD MAN procedure are i n the results section. T4 FREE Timed 07/03/2009 9:54 AM Results f or this MACHINE SHOP LEAD MAN procedure are i n the results section. COMPREHENSIVE Routine 07/03/2009 5:45 AM Results for this METABOLIC PANEL MACHINE SHOP LEAD MAN procedure ar e in the results section. CBC WITH PLATELETS Routine 07/03/2009 5:45 AM Res ults for this MACHINE SHOP LEAD MAN procedure are i n the results section. documented in this encounter Results C difficile culture (07/03/2009 11:20 AM MACHINE SHOP LEAD MAN) [facility] Method Time Signature Specimen Feces MISYS Descrip C Difficile Light growth MISYS Culture Clostridium difficile Specimen Anatomical Collection Method Collection Time Receive d Time (Source) Location / / Volume Laterality 07/03/2009 11:20 07/03/2009 AM MACHINE SHOP LEAD MAN 12:24 PM MACHINE SHOP LEAD MAN Josue Crain DO LAB - MICRO GENERAL ORDERABL ES Performing Organization Address [facility] Phon e Number MISYS C difficile toxin A and B (07/03/2009 11:20 AM MACHINE SHOP LEAD MAN) [facility] Method Time Signature Specimen Feces MISYS [...] / Volume Laterality 07/03/2009 11:20 07/03/2009 AM MACHINE SHOP LEAD MAN 12:25 PM MACHINE SHOP LEAD MAN Josue Crain DO LAB - BLOOD ORDERABLES Performing Organization Address [facility] Phon e Number MISYS T4 free (07/03/2009 9:54 AM MACHINE SHOP LEAD MAN) athologist Signature T4 Free 1.75 0.70 - 1.85 [facility] ng/dL Specimen Anatomical Collection Method Collection Time Receive d Time (Source) Location / / Volume Laterality 07/03/2009 9:54 AM 0 MACHINE SHOP LEAD MAN 10:00 AM MACHINE SHOP LEAD MAN Sharifa Barr MD LAB - BLOOD ORDERABLES Performing Organization Address [facility] Phon e Number MISYS TSH (07/03/2009 9:54 AM MACHINE SHOP LEAD MAN) athologist Signature TSH 2.71 0.4 - 5.0 M[facility] mU/L Specimen Anatomical Collection Method Collection Time Receive d Time (Source) Location / / Volume Laterality 07/03/2009 9:54 AM 03/12/201 0 MACHINE SHOP LEAD MAN 10:00 AM MACHINE SHOP LEAD MAN Sharifa Barr MD LAB - BLOOD ORDERABLES Performing Organization Address City/State/ZIP Code Phon e Number [facility] (ABNORMAL) Comprehensive metabolic panel (07/03/2009 5:45 AM MACHINE SHOP LEAD MAN) P athologist Signature Sodium 136 133 - [...] Volume Laterality 07/03/2009 5:45 AM 0 7:53 MACHINE SHOP LEAD MAN AM MACHINE SHOP LEAD MAN Harvey Dang MD LAB - BLOOD ORDERABLES Performing Organization Address City/State/ZIP Code Phon e Number [facility] (ABNORMAL) CBC with platelets (07/03/2009 5:45 AM MACHINE SHOP LEAD MAN) Analysis Performed At Patho logist Time Signature [...] Volume Laterality 07/03/2009 5:45 AM 0 7:53 MACHINE SHOP LEAD MAN AM MACHINE SHOP LEAD MAN Harvey Dang MD LAB - BLOOD ORDERABLES Performing Organization Address City/State/ZIP Code Phon e Number [facility] documented in this encounter Visit Diagnoses Not on filedocumented in this encounter Additional Health Concerns Infection Onset Date Last Indicated Resolved Time MRSA-Contact IsolationComment: 0 04/26/2021 11:03 AM MACHINE SHOP LEAD MAN Infection erroneous documented as of this encounter
--- OUTSIDE RECORDS SUMMARY | 2022-03-22 13:58 | XMS_ITS | Encounter Summary ---
:1960 Author Organization [place] Address [address] [place] [address] Care Team Providers Name Role Phone Unavailable Primary Care Provider Unavailable Encounter Details Date Type Department Care Team Description 03/21/2009 Discharge Summary [facility] Kristen, (Art Gallery Director) [facility] Kevin Lee DO Results [address] [place] [address] (Wo rk) Social History Tobacco Use Types Packs/Day Years Used Date Smoking Tobacco: Never Alcohol Use Standard Drinks/Week Comments Yes 0 (1 standard drink = 0.6 oz pure alcoho l) socially approx 5 drinks/wk Sex Assigned at Date Recorded Not on file documented as of this encounter Progress Notes Kevin Peterson - 03/24/2009 10:04 PM PRESS MACHINE OPERATOR FINAL DISCHARGE DIAGNOSES: 1. Acute rhabdomyolysis, resolved. [...] up with his primary care provider at [facility] within 2 weeks for hospital followup [...] DO MT: [id number] Name: ELIJAH BROWN Account: [id number] : 1960 Admit Date: Discharge Date: 03/21/2009 Document: [id number] cc: [facility] S MACHINE OPERATOR documented in this encounter Plan of Treatment Not on filedocumented as of this encounter Visit Diagnoses Not on filedocumented in this encounter Additional Health Concerns Infection Onset Date Last Indicated Resolved Time MRSA-Contact IsolationComment: 0 04/26/2021 11:03 AM PRESS 

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
--- OUTSIDE RECORDS SUMMARY | 2022-03-22 13:58 | XMS_ITS | Encounter Summary ---
:1960 Author Organization [place] Address [address] [place] [address] Care Team Providers Name Role Phone Unavailable [...] as of this encounter Progress Notes Interface, Sign Poster - 07/10/2010 3:09 PM CDT Nutrition Diagnosis - Nutrition diagnosis: PREVIOUS (03/16): Inadequtate oral food/beverage intake related to intubation AEB pt need for TF. Anthropometrics - Admission weight: 86kg - Current weight: 84.2kg - Dosing weight: 86kg Nutrition Prescription/Intake Tolerance - Nutrition CLear Liquid Prescription: HTL - Comments:: TF d/c'd on 03/18. - Intake/tolerance: Per MINE ANALYST, pt was drinking thin liquids last night [...] toxins A and B negative ARF improved MINE ANALYST following + Temp Estimated Needs - Needs based on: Admit wt: 86kg - Energy needs: 8263-9158 kcal (25-30kcal/kg) - wt maintenance - Protein needs: 85-100 g pro (1.2-1.4g/kg) - repletion - Fluid needs: 2174-9057 mL fluid (25-30mL/kg) Evaluation - Progress toward [...] kcal/pro needs. Interventions - Interventions: Spoke with MINE ANALYST regarding diet order. Pt on CLear liquids, HTL. WIll send frosty thick/resource shake with meals TID once diet adv beyond clears. Encourage intake. - Goals: Pt to consume >50% of meals. - Follow-up: Monitor po intake, diet adv per MINE ANALYST. Monitor labs - protein labs, electrolytes. Monitor stooling. - Recommendations: Rec imodium. Rec diet adv per MINE ANALYST. Signatures NIRMALA LAND (RD, LD)[Signed 10:07] Authored: Nutrition Diagnosis, Anthropometrics, Nutrition Prescription/Intake Tolerance, Labs/Medications, Procedures, Physical Findings, Estimated Needs, Evaluation, Current Nutrition Diagnosis, Interventions Interface, Sign Poster - 07/10/2010 3:09 PM CDT General Information [...] Scale: Thin Liquid Trial Results VFSS Evaluation: [place]-Thick Texture Trial - Mode of Presentation cup; spoon - Order of Presentation 4, 5, 6, - Preparatory Phase WFL - Oral Phase WFL - Rosenbek's (1) no aspiration, contrast does not enter Penetration airway Aspiration Scale: [place]-Thick Liquid Trial Results VFSS Evaluation: Honey-Thick Texture [...] Evaluation: Thin Liquid Texture Trial, VFSS Evaluation: [place]-Thick Texture Trial, VFSS Evaluation: Honey-Thick Texture Trial, VFSS Evaluation: Pudding-Thick Texture Trial, VFSS Evaluation: Semisolid Texture Trial, Swallowing Compensations, Impression Interface, Sign Poster - 07/10/2010 3:08 PM CDT General Information [...] Mobility: Rolling/Turning - Level of stand-by assist [place]: Bed Mobility: Scooting/Bridging - Level of stand-by assist [place]: Bed Mobility: Sit to Supine - Level of stand-by assist [place]: Bed Mobility: Supine to Sit - Level of stand-by assist [place]: Bed Mobility Analysis - Impairments impaired balance Contributing to Impaired Bed Mobility: Transfer: Sit to Stand - Level of stand-by assist [place]: Transfer: Stand to Sit - Level of stand-by assist [place]: Toilet Transfer - Level of stand-by assist [place]: Toilet Transfer Analysis - Impairments impaired balance Contributing to Impaired Transfers: Grooming - Level of stand-by assist, not very complete with shaving, [place]: but unaware of this - Physical supervision Assist/Nonphysical Assist: Lower Body Dressing - Level of stand-by assist [place]: Treatment Plan - Treatments: ADL Retraining, Functional [...] Body Dressing, Treatment Plan, Clinical Impression Interface, Sign Poster - 07/10/2010 3:08 PM CDT SH--Ongoing spiritual/emotional [...] this time. Following. [Signature] Author: Luciana Rose (Outboard Motor Mechanic) [Signed 14:32] Interface, Sign Poster - 07/10/2010 3:08 PM CDT Attempted to meet with pt today. He was in the bathroom during the first attempt and out of the room on the second attempt. SWS will continue to try to meet with pt regarding CD resources. [Signature] Author: GELACIO MARTIN ([facility]) [Signed 14:48] Interface, Sign Poster - 07/10/2010 3:08 PM CDT [employer]. A. Met with the pt to discuss the consult order. Pt reports that he has struggled with alcohol use. He has not had treatment. He was not interested in treatment at this time. He explained how this hospitalization has helped him to understand the importance of not drinking. I did discuss outpt [employer] health evals/screenings through [facility] with him and provided him wiht a handout for future use. I also discussed AA meetings and such with the pt as well. Information to connect with these programs was also in the handout. P. Pt provided with CD service information. [Signature] Author: GELACIO MARTIN ([facility]) [Signed 16:20] documented in this encounter Plan of Treatment Not on filedocumented as of this encounter Visit Diagnoses Not on filedocumented in this encounter Additional Health Concerns Infection Onset Date Last Indicated Resolved Time MRSA-Contact IsolationComment: 0 04/26/2021 11:03 AM CORK PAINTER AND GRADER Infection erroneous documented as of this encounter
--- OUTSIDE RECORDS SUMMARY | 2022-03-22 13:58 | XMS_ITS | Encounter Summary ---
:1960 Author Organization [place] Address [address] [place] [address] Care Team Providers Name Role Phone Unavailable Primary Care Provider Unavailable Encounter Details Date Type Department Care Team Description 07/05/2009 Historic Notes INTERFACED REPORT Scarlett Adams , OTR [address] [place], [place] [address] (Wo rk) Social History [...] 3/5 items. See below. - Comment: Blessed Tbuioczksey-Nnnlef-Jqwzcdkbnopke Test (Short Blessed Test). Total Weighted Error [...] minimum assist (75% patients effort) Dynamic: - Kuc-ly-Tfqcx Balance: minimum assist (75% patients effort), mod [...] Mobility: Rolling/Turning - Level of stand-by assist Ray: - Physical 1 person assist Assist/Nonphysical Assist: Bed Mobility: Sit to Supine - Level of minimum assist (75% patients effort) Ray: - Physical 1 person assist Assist/Nonphysical Assist: - Assistive Device: bed rails Bed Mobility: Supine to Sit - Level of minimum assist (75% patients effort) Ray: - Physical 1 person assist Assist/Nonphysical Assist: Bed Mobility Analysis - Impairments impaired balance; cognition impaired; decreased Contributing to strength Impaired Bed Mobility: Transfer: Sit to Stand - Level of minimum assist (75% patients effort) Ray: - Physical 1 person assist Assist/Nonphysical Assist: - Assistive Device: rolling walker Transfer: Stand to Sit - Level of moderate assist (50% patients effort) Ray: - Physical 1 person assist Assist/Nonphysical Assist: - Assistive Device: rolling walker Transfer: Sit/Stand Safety Analysis - Transfer Safety decreased balance during turns; losing balance Concerns Noted: backward; with transfers leans posteriorly - Impairments impaired balance; cognition impaired; decreased Contributing to strength Impaired Transfers: Transfer: Bed to Chair/Chair to Bed - Level of minimum assist (75% patients effort) Ray: - Physical 1 person assist Assist/Nonphysical Assist: - Assistive Device: rolling walker Transfer: Bed to Chair Analysis - Transfer Safety losing balance backward Concerns Noted: - Impairments impaired balance; cognition impaired; decreased Contributing to strength Impaired Transfers: Toilet Transfer - Level of moderate assist (50% patients effort) Ray: - Physical 1 person assist Assist/Nonphysical Assist: - Assistive Device: rolling walker; grab bars; with comfort height toilet. Toilet Transfer Analysis - Transfer Safety decreased balance during turns; losing balance Concerns Noted: backward - Impairments cognition impaired; impaired balance; decreased Contributing to strength Impaired Transfers: Toilet Hygiene - Level of moderate assist (50% patients effort), to manage Ray: depends after toileting, losing balance backwards, leaning posteriorly - Physical 1 person assist Assist/Nonphysical Assist: Tub/Shower Transfer Safety Analysis - Comments: To be assessed. Has walk in shower and tub/shower. Upper Body Dressing - Level of minimum assist (75% patients effort) Ray: - Physical 1 person assist Assist/Nonphysical Assist: Lower Body Dressing - Level of moderate assist (50% patients effort) Ray: - Physical 1 person assist Assist/Nonphysical Assist: [...] goals Potential: - Demonstrates need for PT; NATURAL GAS TRADER referral to another service: - Predicted Duration [...] Time MRSA-Contact IsolationComment: 0 04/26/2021 11:03 AM ELECTRIC MOTOR REPAIR SUPERVISOR Infection erroneous documented as of this encounter
--- OUTSIDE RECORDS SUMMARY | 2022-03-22 13:58 | XMS_ITS | Encounter Summary ---
:1960 Author Organization [place] Address [address] [place] [address] Care Team Providers Name Role Phone Unavailable Primary Care Provider Unavailable Encounter Details Date Type Department Care Team Description 06/30/2009 Historic Results INTERFACED REPORT Rina Shin MD [facility] [address] [place], [place] [address] (Wo rk) Social History [...] esults for this URINE (FL, RH, SH) REFINERY OPERATOR CRUDE UNIT procedure are in the results section. CBC WITH PLATELETS & STAT 06/30/2009 11:10 Res ults for this DIFFERENTIAL AM REFINERY OPERATOR CRUDE UNIT procedure are i n the results section. ETHYL ALCOHOL LEVEL STAT 06/30/2009 11:10 Resu lts for this AM REFINERY OPERATOR CRUDE UNIT procedure are i n the results section. BASIC METABOLIC PANEL STAT 06/30/2009 11:10 Re sults for this AM REFINERY OPERATOR CRUDE UNIT procedure are i n the results section. documented in this encounter Results Drug abuse screen 77 urine (FL, RH, SH) (06/30/2009 1:15 PM REFINERY OPERATOR CRUDE UNIT) [facility] Method Time Signature Amphetamine Qual Negative [...] / Volume Laterality 06/30/2009 1:15 PM 0 REFINERY OPERATOR CRUDE UNIT 10:49 AM REFINERY OPERATOR CRUDE UNIT Rina Shin MD LAB - URINE ORDERABLES Performing Organization Address City/State/ZIP Code Phon e Number MISYS (ABNORMAL) CBC with platelets differential (06/30/2009 11:10 AM REFINERY OPERATOR CRUDE UNIT) [facility] gist Method Time Signature MCV 94 78 [...] / Volume Laterality 06/30/2009 11:10 06/30/2009 AM REFINERY OPERATOR CRUDE UNIT 10:49 AM REFINERY OPERATOR CRUDE UNIT Rina Shin MD LAB - BLOOD ORDERABLES Performing Organization Address City/State/ZIP Code Phon e Number MISYS (ABNORMAL) Basic metabolic panel (06/30/2009 11:10 AM REFINERY OPERATOR CRUDE UNIT) P athologist Signature Sodium 135 133 - [...] / Volume Laterality 06/30/2009 11:10 06/30/2009 AM REFINERY OPERATOR CRUDE UNIT 10:49 AM REFINERY OPERATOR CRUDE UNIT Rina Shin MD LAB - BLOOD ORDERABLES Performing Organization Address City/State/ZIP Code Phon e Number MISYS (ABNORMAL) Alcohol ethyl (06/30/2009 11:10 AM REFINERY OPERATOR CRUDE UNIT) P athologist Signature Ethanol g/dL 0.37 (HH) 0.01 g/dL MISYS Comment: Specimen run with a dilution Critical Value called to and read back by KAPIL) ON 06.30.09 AT 1142 BY MARY Specimen Anatomical Collection Method Collection Time Receive d Time (Source) Location / / Volume Laterality 06/30/2009 11:10 06/30/2009 AM REFINERY OPERATOR CRUDE UNIT 10:49 AM REFINERY OPERATOR CRUDE UNIT Rina Shin MD LAB - BLOOD ORDERABLES Performing Organization Address City/State/ZIP Code Phon e Number MISYS documented in this encounter Visit Diagnoses Not on filedocumented in this encounter Additional Health Concerns Infection Onset Date Last Indicated Resolved Time MRSA-Contact IsolationComment: 0 04/26/2021 11:03 AM REFINERY OPERATOR CRUDE UNIT Infection erroneous documented as of this encounter
--- OUTSIDE RECORDS SUMMARY | 2022-03-22 13:58 | XMS_ITS | Encounter Summary ---
:1960 Author Organization [place] Address [address] [place] [address] Care Team Providers Name Role Phone Unavailable Primary Care Provider Unavailable Encounter Details Date Type Department Care Team Description 07/02/2009 [facility] [address] [place], [place] [id number] [phone] Social History Tobacco Use Types Packs/Day Years [...] AM Results f or this METHICILLIN RESISTANT MANUFACTURING SUPERVISOR proced ure are in PCR (RW) the results section. REFERRAL SENSITIVITY Routine 07/02/2009 8:45 AM R esults for this MANUFACTURING SUPERVISOR procedure are i n the results section. COMPREHENSIVE Routine 07/02/2009 7:05 AM Results for this METABOLIC PANEL MANUFACTURING SUPERVISOR procedure ar e in the results section. CBC WITH PLATELETS Routine 07/02/2009 7:05 AM Res ults for this MANUFACTURING SUPERVISOR procedure are i n the results section. documented in this encounter Results Staph aureus methicillin resistant PCR (07/02/2009 8:45 AM MANUFACTURING SUPERVISOR) [facility] Method Time Signature Specimen Nares MISYS Description Methicillin Positive: MISYS Resist/Sens S. 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 Comment: FDA approved assay performed using [employer] GeneXpert(R) real-time PCR with amplification of a sequence in a casset te inserted in the S.aureus chromosome. Specimen Anatomical Collection Method Collection Time Receive d Time (Source) Location / / Volume Laterality 07/02/2009 8:45 AM 0 3:04 MANUFACTURING SUPERVISOR PM MANUFACTURING SUPERVISOR Harvey Dang MD LAB - MICRO GENERAL ORDERABL ES Performing Organization Address City/State/ZIP Code Phon e Number MISYS Referral sensitivity (07/02/2009 8:45 AM MANUFACTURING SUPERVISOR) Component Value Ref Test Analysis Performed Pathologis t Range Method Time At Signature Specimen Nares MISYS Description Culture Micro No MRSA isolated: MISYS susceptibilities not available. PCR assay is more sensitive Comment: than culture. Micro Report Status FINAL 07/05/2009 MIS YS Specimen Anatomical Collection Method Collection Time Receive d Time (Source) Location / / Volume Laterality 07/02/2009 8:45 AM 0 4:22 MANUFACTURING SUPERVISOR PM MANUFACTURING SUPERVISOR Josue Crain DO LAB - MICRO GENERAL ORDERABL ES Performing Organization Address City/State/ZIP Code Phon e Number MISYS (ABNORMAL) Comprehensive metabolic panel (07/02/2009 7:05 AM MANUFACTURING SUPERVISOR) P athologist Signature Sodium 137 133 - [...] / Volume Laterality 07/02/2009 7:05 AM 0 MANUFACTURING SUPERVISOR 10:54 AM MANUFACTURING SUPERVISOR Harvey Dang MD LAB - BLOOD ORDERABLES Performing Organization Address City/State/ZIP Code Phon e Number MISYS (ABNORMAL) CBC with platelets (07/02/2009 7:05 AM MANUFACTURING SUPERVISOR) Analysis Performed At Patho logist Time [...] Volume Laterality 07/02/2009 7:05 AM 0 7:52 MANUFACTURING SUPERVISOR AM MANUFACTURING SUPERVISOR Harvey Dang MD LAB - BLOOD ORDERABLES Performing Organization Address City/State/ZIP Code Phon e Number MISYS documented in this encounter Visit Diagnoses Not on filedocumented in this encounter Additional Health Concerns Infection Onset Date Last Indicated Resolved Time MRSA-Contact IsolationComment: 0 04/26/2021 11:03 AM MANUFACTURING SUPERVISOR Infection erroneous documented as of this encounter
--- OUTSIDE RECORDS SUMMARY | 2022-03-22 13:58 | XMS_ITS | Encounter Summary ---
:1960 Author Organization [place] Address [address] [place] [address] Care Team Providers Name Role Phone Unavailable Primary Care Provider Unavailable Encounter Details Date Type Department Care Team Description 07/01/2009 Historic Notes INTERFACED REPORT Cali Dang MD [address] [place], [place] [address] (Wo rk) Social History [...] to correctly state year, president, and location ([place]) HEART: Normal S1, S2 with no edema. [...] this time. needs ICU care. d/w nursing occupational health nurse supervisor; ICU is full, but they will transfer [...] Time MRSA-Contact IsolationComment: 0 04/26/2021 11:03 AM FACILITIES OPERATOR Infection erroneous documented as of this encounter
--- OUTSIDE RECORDS SUMMARY | 2022-03-22 13:58 | XMS_ITS | Encounter Summary ---
:1960 Author Organization [place] Address [facility] [place] [address] Care Team Providers Name Role Phone No Ref-Primary, Physician Primary Care Provider [phone] Juan Farias MD Unavailable Edilia Trejo APRN REMOTE SENSING RESEARCH SCIENTIST Unavailable Glendy vailable Juan Farias MD Unavailable Denise Connell-C Unavailable [phone] Edilia Trejo APRN REMOTE SENSING RESEARCH SCIENTIST Unavailable Glendy vailable Denise Connell-C Unavailable [phone] Jaun Farias MD Primary Care Provider Dana Barry PA-C Unavailable [phone] Encounter Details Date Type Department Care Team Description 08/20/2010 Office Visit-[facility] Heart Juan Farias MD [address] [place] [address] [place] [address] [phone] Social History Tobacco Use Types Packs/Day Years [...] old Referring Physician: JEROME MORENO Referring Clinic: [facility] CURRENT DIAGNOSES 1. - Hypercholesterolemia, 272.0 2. [...] in June,, when he was hospitalized at [facility] for alcohol withdrawal issues. On examination today [...] lives with female partner; Place of - [place]; Job Description - makes [employer]; Hours Worked - 60 hours per week; [...] Time MRSA-Contact IsolationComment: 0 04/26/2021 11:03 AM NEON INSTALLER Infection erroneous MRSA 05/13/2021 05/13/2021 Rule Out C-difficile 12/06/2021 12/06/202112/0712/07/2021 8:46 AM CDT documented as of this encounter Care Teams Network Applications Specialist Relationship Specialty Start Date End Date No Ref-Primary, PCP - General 07/03/14 12/03/21 Physician Juan Farias MD PCP - General Cardiovascular Disease 12/04/[address] [place] [address] Juan Farias MD Assigned Heart and 02/14/20 10/03/[address] Vascular Provider [address] [place] [address] Maya, Assigned Heart and 10/04/20 Edilia Chapman APRN Vascular Provider REMOTE SENSING RESEARCH SCIENTIST NO INFO AVAILABLE 02/10/2022 Juan Farias MD Assigned Heart and 04/04/21 07/31/[address] Vascular Provider [address] [place] [address] Denise Connell Physician Fruit I Farmworker Cardiovascular Disease 08/12/21 MARIETTA Watson [address] [place] [address] Maya, Assigned Heart and 08/01/21 2 Edilia Chapman APRN Vascular Provider REMOTE SENSING RESEARCH SCIENTIST NO INFO AVAILABLE 02/10/2022 Denise Connell Assigned Heart and 08/22/21 01/14/22 MARIETTA Watson Vascular Provider [address] [place], [place] [id number] Dana Barry Assigned Heart and 01/15/22 MARIETTA Teague Vascular Provider [address] [place], [place] [phone] documented as of this encounter
--- OUTSIDE RECORDS SUMMARY | 2022-03-22 13:58 | XMS_ITS | Encounter Summary ---
:1960 Author Organization [place] Address [address] [place] [address] Care Team Providers Name Role Phone Unavailable Primary Care Provider Unavailable Encounter Details Date Type Department Care Team Description 08/20/2010 Orders Only [facility] Tristan Eagn, [facility] [id number] [place] [phone] [place] [address] (Wo rk) Social History Tobacco [...] this encounter Results (ABNORMAL) Lipid Profile (08/20/2010) [facility] Method Time Signature Cholesterol 254 (A) [...] Time MRSA-Contact IsolationComment: 0 04/26/2021 11:03 AM PRODUCT OWNER Infection erroneous documented as of this encounter
--- OUTSIDE RECORDS SUMMARY | 2022-03-22 13:58 | XMS_ITS | Encounter Summary ---
:1960 Author Organization [place] Address [address] [place] [address] Care Team Providers Name Role Phone Unavailable Primary Care Provider Unavailable Encounter Details Date Type Department Care Team Description 03/21/2009 Historic Results [facility] MD Hospitalists [address] [place], [place] [address] (Wo rk) Social History Tobacco Use Types [...] 03/21/2009 11:52 AM Resu lts for this FRUIT FARMER procedure are i n the results section. PHOSPHORUS Routine 03/21/2009 6:22 AM Results f or this FRUIT FARMER procedure are i n the results section. MAGNESIUM Routine 03/21/2009 6:22 AM Results f or this FRUIT FARMER procedure are i n the results section. BASIC METABOLIC Routine 03/21/2009 6:22 AM Result s for this PANEL FRUIT FARMER procedure are i n the results section. documented in this encounter Results (ABNORMAL) Glucose by meter (03/21/2009 11:52 AM FRUIT FARMER) P athologist Signature Glucose 128 (H) 60 - 99 MISYS mg/dL Specimen Anatomical Collection Method Collection Time Receive d Time (Source) Location / / Volume Laterality 03/21/2009 11:52 03/21/2009 AM FRUIT FARMER 12:10 PM FRUIT FARMER Kaiden REHMAN - BEAKER POCT Performing Organization Address City/State/[facility] Phon e Number MISYS (ABNORMAL) Basic metabolic panel (03/21/2009 6:22 AM FRUIT FARMER) P athologist Signature Sodium 139 133 - [...] / Volume Laterality 03/21/2009 6:22 AM 9 FRUIT FARMER Liam Traylor MD LAB - BLOOD ORDERABLES Performing Organization Address [facility] Phon e Number MISYS Phosphorus (03/21/2009 6:22 AM FRUIT FARMER) athologist Signature Phosphorus 2.7 2.5 - 4.5 MISYS mg/dL Specimen Anatomical Collection Method Collection Time Receive d Time (Source) Location / / Volume Laterality 03/21/2009 6:22 AM 9 6:30 FRUIT FARMER AM FRUIT FARMER Liam Traylor MD LAB - BLOOD ORDERABLES Performing Organization Address City/[facility] Phon e Number MISYS (ABNORMAL) Magnesium (03/21/2009 6:22 AM FRUIT FARMER) athologist Signature Magnesium 1.5 (L) 1.6 - 2.3 MISYS mg/dL Comment: Reviewed, acceptable Specimen Anatomical Collection Method Collection Time Receive d Time (Source) Location / / Volume Laterality 03/21/2009 6:22 AM 9 6:42 FRUIT FARMER AM FRUIT FARMER Liam Traylor MD LAB - BLOOD ORDERABLES Performing Organization Address City/[facility]/ZIP Code Phon e Number MISYS documented in this encounter Visit Diagnoses Not on filedocumented in this encounter Additional Health Concerns Infection Onset Date Last Indicated Resolved Time MRSA-Contact IsolationComment: 0 04/26/2021 11:03 AM FRUIT FARMER Infection erroneous documented as of this encounter
--- OUTSIDE RECORDS SUMMARY | 2022-03-22 13:58 | XMS_ITS | Encounter Summary ---
:1960 Author Organization [place] Address [address] [place] [address] Care Team Providers Name Role Phone Unavailable Primary Care Provider Unavailable Encounter Details Date Type Department Care Team Description 08/20/2010 Historic Results [facility] Heart Unknown, Doct or, Clinic [address] [place] [address] Social History Tobacco Use Types Packs/Day Years [...] GEMMS Historical Results (08/20/2010 12:00 AM CDT) [facility] gist Method Time Signature Triglycerides 146 0 [...] Time MRSA-Contact IsolationComment: 0 04/26/2021 11:03 AM AUTOMATIC GLUING 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
--- OUTSIDE RECORDS SUMMARY | 2022-03-22 13:58 | XMS_ITS | Encounter Summary ---
:1960 Author Organization [place] Address [address] [place] [address] Care Team Providers Name Role Phone Unavailable Primary Care Provider Unavailable Encounter Details Date Type Department Care Team Description 07/01/2009 Historic Results [facility] Helton MD Hospitalists [address] [facility] [place] [place] [address] (Wo rk) Social History [...] 07/01/2009 7:01 PM Resul ts for this MECHANICAL TEST ENGINEER procedure are i n the results section. INR AND PTT PANEL Timed 07/01/2009 11:10 Result s for this AM MECHANICAL TEST ENGINEER procedure are i n the results section. ROUTINE UA WITH Routine 07/01/2009 10:40 Results for this MICROSCOPIC AM MECHANICAL TEST ENGINEER procedure are i n the results section. URINE CULTURE Routine 07/01/2009 10:40 Results fo r this AM MECHANICAL TEST ENGINEER procedure are i n the results section. CBC WITH PLATELETS Timed 07/01/2009 10:40 Resul ts for this AM MECHANICAL TEST ENGINEER procedure are i n the results section. BLOOD CULTURE STAT 07/01/2009 8:20 AM Results for this MECHANICAL TEST ENGINEER procedure are i n the results section. BLOOD CULTURE STAT 07/01/2009 8:05 AM Results for this MECHANICAL TEST ENGINEER procedure are i n the results section. HEPATIC FUNCTION Routine 07/01/2009 6:20 AM Resul ts for this PANEL MECHANICAL TEST ENGINEER procedure are i n the results section. BASIC METABOLIC PANEL Routine 07/01/2009 6:20 AM Results for this MECHANICAL TEST ENGINEER procedure are i n the results section. documented in this encounter Results (ABNORMAL) Glucose by meter (07/01/2009 7:01 PM MECHANICAL TEST ENGINEER) athologist Signature Glucose 217 (H) 60 - 99 MISYS mg/dL Specimen Anatomical Collection Method Collection Time Receive d Time (Source) Location / / Volume Laterality 07/01/2009 7:01 PM 0 7:05 MECHANICAL TEST ENGINEER PM MECHANICAL TEST ENGINEER Josue Crain DO LAB - BEAKER POCT Performing Organization Address City/State/ZIP Code Phon e Number MISYS INR AND PTT PANEL (07/01/2009 11:10 AM MECHANICAL TEST ENGINEER) athologist Signature INR 0.95 0.86 - 1.14 MISYS PTT 26 22 - 37 sec MISYS Specimen Anatomical Collection Method Collection Time Receive d Time (Source) Location / / Volume Laterality 07/01/2009 11:10 07/01/2009 AM MECHANICAL TEST ENGINEER 10:50 AM MECHANICAL TEST ENGINEER Harvey Dang MD LAB - BLOOD ORDERABLES Performing Organization Address City/State/ZIP Code Phon e Number MISYS (ABNORMAL) Routine UA with microscopic (07/01/2009 10:40 AM MECHANICAL TEST ENGINEER) Component Value Ref Test Analysis Performed At [facility] gist Range Method Time Signature Source Catheterized MISYS Urine Color Urine Yellow MISYS Appearance Urine Clear MISYS Glucose Urine Negative NEG MISYS mg/dL Bilirubin Urine Negative NEG MISYS Ketones Urine 10 (A) NEG MISYS mg/dL Specific [place] 1.010 1.003 - MISYS Urine 1.035 Blood [...] Volume Laterality 07/01/2009 10:40 07/01/2009 8:01 AM MECHANICAL TEST ENGINEER AM MECHANICAL TEST ENGINEER Harvey Dang MD LAB - URINE ORDERABLES Performing Organization Address City/[facility]/ZIP Code Phon e Number MISYS (ABNORMAL) CBC with platelets (07/01/2009 10:40 AM MECHANICAL TEST ENGINEER) Analysis Performed At Patho logist Time Signature [...] / Volume Laterality 07/01/2009 10:40 07/01/2009 AM MECHANICAL TEST ENGINEER 10:30 AM MECHANICAL TEST ENGINEER Harvey Dang MD LAB - BLOOD ORDERABLES Performing Organization Address City/[facility] Phon e Number MISYS Urine culture (07/01/2009 10:40 AM MECHANICAL TEST ENGINEER) Component Value Ref Test Analysis Performed At [facility] [employer] Range Method Time Signature Specimen Catheterized MISYS Description Urine Culture Micro No growth MISYS Micro Report FINAL 07/02/2009 MISYS Status Specimen Anatomical Collection Method Collection Time Receive d Time (Source) Location / / Volume Laterality 07/01/2009 10:40 07/01/2009 8:01 AM MECHANICAL TEST ENGINEER AM MECHANICAL TEST ENGINEER Harvey Dang MD LAB - MICRO GENERAL ORDERABL ES Performing Organization Address City/[facility] Phon e Number MISYS Blood culture (07/01/2009 8:20 AM MECHANICAL TEST ENGINEER) [facility] [employer] Method Time Signature Specimen Blood Left MISYS Description Hand Culture Micro No growth MISYS after 6 days Micro Report FINAL MISYS Status [id number] Specimen Anatomical Collection Method Collection Time Receive d Time (Source) Location / / Volume Laterality 07/01/2009 8:20 AM 0 8:02 MECHANICAL TEST ENGINEER AM MECHANICAL TEST ENGINEER Harvey Dang MD LAB - MICRO GENERAL ORDERABL ES Performing Organization Address City/[facility] Phon e Number MISYS Blood culture (07/01/2009 8:05 AM MECHANICAL TEST ENGINEER) Patholo gist Method Time Signature Specimen Blood Right MISYS Description Arm Culture Micro No growth MISYS after 6 days Micro Report FINAL MISYS Status [id number] Specimen Anatomical Collection Method Collection Time Receive d Time (Source) Location / / Volume Laterality 07/01/2009 8:05 AM 0 8:02 MECHANICAL TEST ENGINEER AM MECHANICAL TEST ENGINEER Harvey Dang MD LAB - MICRO GENERAL ORDERABL ES Performing Organization Address City/State/ZIP Code Phon e Number MISYS (ABNORMAL) Basic metabolic panel (07/01/2009 6:20 AM MECHANICAL TEST ENGINEER) P athologist Signature Sodium 135 133 - [...] Volume Laterality 07/01/2009 6:20 AM 0 2:28 MECHANICAL TEST ENGINEER PM MECHANICAL TEST ENGINEER Harvey Dang MD LAB - BLOOD ORDERABLES Performing Organization Address City/State/ZIP Code Phon e Number MISYS (ABNORMAL) Hepatic panel (07/01/2009 6:20 AM MECHANICAL TEST ENGINEER) Analysis Performed At Patho logist Time Signature [...] / Volume Laterality 07/01/2009 6:20 AM 0 MECHANICAL TEST ENGINEER 10:21 AM MECHANICAL TEST ENGINEER Harvey Dang MD LAB - BLOOD ORDERABLES Performing Organization Address City/State/ZIP Code Phon e Number MISYS documented in this encounter Visit Diagnoses Not on filedocumented in this encounter Additional Health Concerns Infection Onset Date Last Indicated Resolved Time MRSA-Contact IsolationComment: 0 04/26/2021 11:03 AM MECHANICAL TEST ENGINEER Infection erroneous documented as of this encounter
--- OUTSIDE RECORDS SUMMARY | 2022-03-22 13:58 | XMS_ITS | Encounter Summary ---
:1960 Author Organization [facility] Address [address] [place] [address] Care Team Providers Name Role Phone Unavailable Primary Care Provider Unavailable Encounter Details Date Type Department Care Team Description 03/21/2009 Historic Notes INTERFACED REPORT Scarlett Adams , OTR [address] [place], [place] [address] (Wo rk) Social History [...] toward Goals not met achieving short term goals/adjunct faculty for medical terminology goals - Barriers to achieving Early discharge [...] Time MRSA-Contact IsolationComment: 0 04/26/2021 11:03 AM WIRE COMMUNICATIONS ENGINEER Infection erroneous documented as of this encounter
--- OUTSIDE RECORDS SUMMARY | 2022-03-22 13:58 | XMS_ITS | Encounter Summary ---
:1960 Author Organization [place] Address [address] [place] [address] Care Team Providers Name Role Phone Unavailable Primary Care Provider Unavailable Encounter Details Date Type Department Care Team Description 07/04/2009 Historic Results [facility] Sharifa Barr MD Hospitalists [address] [facility] [address] [place] [address] [place], [place] [phone] (Wo rk) [address] [phone] Social History Tobacco Use Types Packs/Day Years [...] 4:15 PM Result s for this MICROSCOPIC GANG TAILER procedure are i n the results section. documented in this encounter Results (ABNORMAL) Routine UA with microscopic (07/04/2009 4:15 PM GANG TAILER) Component Value Ref Test Analysis Performed At [facility] Range Method Time Signature Source Unspecified MISYS Urine Color Urine Yellow MISYS Appearance Urine Clear MISYS Glucose Urine Negative NEG MISYS mg/dL Bilirubin Urine Negative NEG MISYS Ketones Urine Negative NEG MISYS mg/dL Specific [place] 1.005 1.003 - MISYS Urine 1.035 Blood [...] Volume Laterality 07/04/2009 4:15 PM 0 9:33 GANG TAILER AM GANG TAILER Sharifa Barr MD LAB - URINE ORDERABLES Performing Organization Address City/State/ZIP Code Phon e Number MISYS documented in this encounter Visit Diagnoses Not on filedocumented in this encounter Additional Health Concerns Infection Onset Date Last Indicated Resolved Time MRSA-Contact IsolationComment: 0 04/26/2021 11:03 AM GANG TAILER Infection erroneous documented as of this encounter
--- OUTSIDE RECORDS SUMMARY | 2022-03-22 13:58 | XMS_ITS | Encounter Summary ---
:1960 Author Organization [facility] Address [address] [place] [address] Care Team Providers Name Role Phone Unavailable Primary Care Provider Unavailable Encounter Details Date Type Department Care Team Description 03/20/2009 Historic Notes INTERFACED REPORT Deep Alston MD [address] [place], [place] [address] (Wo rk) Social History [...] Time MRSA-Contact IsolationComment: 0 04/26/2021 11:03 AM VINYL CUTTER Infection erroneous documented as of this encounter
--- OUTSIDE RECORDS SUMMARY | 2022-03-22 13:58 | XMS_ITS | Encounter Summary ---
:1960 Author Organization [facility] Address [address] [place] [address] Care Team Providers Name Role Phone Unavailable [...] 07/01/2009 9:22 AM Results f or this FIRE PRODUCTION OPERATOR procedure are i n the results section . documented in this encounter Results EKG 12 LEAD (07/01/2009 9:22 AM FIRE PRODUCTION OPERATOR) Component Value Ref Range Test Analysis Performed Pathologis t Method Time At Signature Ventricular Rate 130 BPM RADIOLOGY RESULTS Atrial Rate 130 BPM RADIOLOGY RESULTS VT Interval 124 ms RADIOLOGY RESULTS QRS Duration 86 ms RADIOLOGY RESULTS QT 296 ms RADIOLOGY RESULTS QTc 435 ms RADIOLOGY RESULTS P [place] 20 degrees RADIOLOGY RESULTS R AXIS -2 degrees RADIOLOGY RESULTS T [place] 25 degrees RADIOLOGY RESULTS Interpretation Sinus tachycardia [...] Volume Laterality 07/01/2009 9:22 AM 0 7:31 FIRE PRODUCTION OPERATOR AM FIRE PRODUCTION OPERATOR Transcripton Interface ECG ORDERABLES Performing Organization Address City/State/ZIP Code Phon e Number RADIOLOGY RESULTS documented in this encounter Visit Diagnoses Not on filedocumented in this encounter Additional Health Concerns Infection Onset Date Last Indicated Resolved Time MRSA-Contact IsolationComment: 0 04/26/2021 11:03 AM FIRE PRODUCTION OPERATOR Infection erroneous documented as of this encounter
--- OUTSIDE RECORDS SUMMARY | 2022-03-22 13:58 | XMS_ITS | Encounter Summary ---
:1960 Author Organization [facility] Address [address] [place] [address] Care Team Providers Name Role Phone Unavailable [...] as of this encounter Progress Notes Interface, Rivet Hammer Machine Operator - 07/10/2010 8:46 AM CDT Progress Note - :: Pt scores etoh scores 7-11. medicated with 6 iv and po 1 mg ativan. Inc of urine and stool, rondon palced. Attempts to climb out of bed. See order to transfer to ICU T max 100.1, [id number]'s. Started Metroprolol IV. Transfering to unit at 1230 Signatures SHRUTI BREWER (OZZIE)[Signed 12:09] Authored: Progress Note Interface, Rivet Hammer Machine Operator - 07/10/2010 8:45 AM CDT Call from [...] pt as able. [Signature] Author: Fina Mayfield ([facility]) [Signed 13:32] documented in this encounter Plan of Treatment Not on filedocumented as of this encounter Visit Diagnoses Not on filedocumented in this encounter Additional Health Concerns Infection Onset Date Last Indicated Resolved Time MRSA-Contact IsolationComment: 0 04/26/2021 11:03 AM SUPERVISOR PROCESS TESTING Infection erroneous documented as of this encounter
--- OUTSIDE RECORDS SUMMARY | 2022-03-22 13:58 | XMS_ITS | Encounter Summary ---
:1960 Author Organization [facility] Address [address] [place] [address] Care Team Providers Name Role Phone Unavailable Primary Care Provider Unavailable Encounter Details Date Type Department Care Team Description 07/04/2009 Historic Notes INTERFACED REPORT Junior Amaya MD [address], [place] [address] (Wo rk) Social History [...] the president, knows Lisa played for the [employer] last year, had previously been with the [...] some kind. sister already discussing it with [facility] 2. alcohol withdrawal: mostly resolved 3. cognitive [...] MRSA-Contact IsolationComment: 0 04/26/2021 11:03 AM MANAGER SIGN Infection erroneous documented as of this encounter
--- OUTSIDE RECORDS SUMMARY | 2022-03-22 13:58 | XMS_ITS | Encounter Summary ---
:1960 Author Organization [place] Address [address] [place] [address] Care Team Providers Name Role Phone Unavailable [...] as of this encounter Progress Notes Interface, Hydroelectric Mechanic - 07/10/2010 8:33 AM CDT General Information [...] Mobility: Rolling/Turning - Level of stand-by assist [place]: Bed Mobility: Scooting/Bridging - Level of stand-by assist [place]: Bed Mobility: Sit to Supine - Level of stand-by assist [place]: Bed Mobility: Supine to Sit - Level of stand-by assist [place]: Transfer: Bed to Chair/Chair to Bed - Level of moderate assist (50% patients effort) [place]: - Physical 2 persons Assist/Nonphysical Assist: - Weight-Bearing full weight-bearing Restrictions: - Assistive Device: rolling walker Bed/Chair Transfer Safety Analysis - Transfer Safety losing balance backward; decreased balance Concerns Noted: during turns - Impairments impaired balance; decreased strength Contributing to Impaired Transfers: Transfer: Sit to Stand - Level of moderate assist (50% patients effort) [place]: - Physical 2 persons Assist/Nonphysical Assist: - Weight-Bearing full weight-bearing Restrictions: - Assistive Device: rolling walker Transfer: Stand to Sit - Level of moderate assist (50% patients effort) [place]: - Physical 2 persons Assist/Nonphysical Assist: - Weight-Bearing full weight-bearing Restrictions: - Assistive Device: rolling walker Sit/Stand Transfer Safety Analysis - Transfer Safety decreased balance during turns; losing balance Concerns Noted: backward - Impairments impaired balance; decreased strength Contributing to Impaired Transfers: Gait Skills - Level of moderate assist (50% patients effort) [place]: - Physical 1 person + 1 person [...] minimum assist (75% patients effort) Dynamic: - [id number] Balance: moderate assist (50% patients effort) - [...] closely Potential: - Demonstrates need for OT; SNUFF BOX FINISHER referral to another service: - Predicted Duration [...] MRSA-Contact IsolationComment: 0 04/26/2021 11:03 AM SUPERVISOR REMELT Infection erroneous documented as of this encounter
--- OUTSIDE RECORDS SUMMARY | 2022-03-22 13:58 | XMS_ITS | Encounter Summary ---
:1960 Author Organization [facility] [facility] Address [address] [place] [address] Care Team Providers Name Role Phone Unavailable [...] as of this encounter Progress Notes Interface, Tire Recapping Machine Operator - 07/10/2010 8:49 AM CDT General Information - How to be Addressed navarro - Patient Belongings clothing - personal shopper #1: Shalonda - Relationship to girlfriend patient #1: - Contact Location: Home Local - Phone 1: [phone] - personal shopper #2: Chantal Woods - Relationship to sister patient #2: - Contact Location: Home Local - Phone 1: [phone] - Cell - personal shopper #3: Perlita & elida - Relationship to mom & dad patient #3: - Phone 1: [phone] - Patient's spoken language; Kuwaiti or Bilingual communication style Advance Directive - [...] abuse, self neglect, lack of adequate food, nursing home, medical care, or financial exploitation)? Values/Beliefs/Spiritual Care [...] none Considerations - Developmental none Considerations - Spiritism none Considerations Mutuality/Individual Preferences - What information [...] Time MRSA-Contact IsolationComment: 0 04/26/2021 11:03 AM CODING CLERK Infection erroneous documented as of this encounter
--- OUTSIDE RECORDS SUMMARY | 2022-03-22 13:58 | XMS_ITS | Encounter Summary ---
:1960 Author Organization [facility] Address [address] [place] [address] Care Team Providers Name Role Phone Unavailable Primary Care Provider Unavailable Encounter Details Date Type Department Care Team Description 07/02/2009 Historic Notes INTERFACED REPORT Cali Dang MD [address] [place], [place] [address] (Wo rk) Social History [...] done IMPRESSION AND PLAN: Mr. Juan Pablo rBown is a 48-year-old male with a history [...] Time MRSA-Contact IsolationComment: 0 04/26/2021 11:03 AM BRIDGE MAINTENANCE WORKER Infection erroneous documented as of this encounter
--- OUTSIDE RECORDS SUMMARY | 2022-03-22 13:58 | XMS_ITS | Encounter Summary ---
:1960 Author Organization [place] Address [address] [place] [address] Care Team Providers Name Role Phone Unavailable [...] as of this encounter Progress Notes Interface, Mash Tub Cooker Operator - 07/10/2010 3:05 PM CDT Patient Status - Physical status Stable (s/s of potential complications absent or manageable) - Psychosocial status Stable Discharge Planning - Discharge From: [facility] - Patient Care Unit: MS3 - PCU - Discharge To: Home - Phone number after [phone] discharge: - Method of discharge: Wheel Chair [...] Primary Md call: - Phone number of [facility] [phone] patient should call: - Is patient going home No with IV Catheter?: Follow Up Care - Physician/clinician Primary MD name: - - When to see 1-2 weeks physician/clinician: Lucero Mccauley (RN)[Signed 12:31] Authored: Patient Status, Discharge Planning, Discharge Information, Medications and Prescriptions, Support Services, Special Care Needs and Instructions, Follow Up Care Interface, Mash Tub Cooker Operator - 07/10/2010 3:05 PM CDT Discharge Summary - Reason for Discharge Discharge from facility - Progress toward Goals partially met, Did not meet goal of amb achieving short term endurance/assist/stairs goals/terminal operator goals - Barriers to achieving Limited tolerance [...] Time MRSA-Contact IsolationComment: 0 04/26/2021 11:03 AM WORKERS' COMPENSATION CLAIMS EXAMINER Infection erroneous documented as of this encounter
--- OUTSIDE RECORDS SUMMARY | 2022-03-22 13:58 | XMS_ITS | Encounter Summary ---
:1960 Author Organization [facility] Address [address] [place] [address] Care Team Providers Name Role Phone Unavailable Primary Care Provider Unavailable Encounter Details Date Type Department Care Team Description 06/30/2009 Emergency room [facility] Rina Shin MD Hospital Results [facility]ERG[facility] [address] [place], [place] [address] (Wo rk) Social History Tobacco Use Types Packs/Day Years Used Date Smoking Tobacco: Never Alcohol Use Standard Drinks/Week Comments Yes 0 (1 standard drink = 0.6 oz pure alcoho l) socially approx 5 drinks/wk Sex Assigned at Date Recorded Not on file documented as of this encounter Progress Notes Rina Shin - 07/04/2009 2:40 AM LINE DRIVER FINAL CHIEF COMPLAINT: Fall. HISTORY OF PRESENT [...] MD MT: [id number] Name: ELIJAH BROWN Account: [id number] : 1960 Visit Date: 06/30/2009 Document: [id number] DRIVER documented in this encounter Plan of Treatment Not on filedocumented as of this encounter Visit Diagnoses Not on filedocumented in this encounter Additional Health Concerns Infection Onset Date Last Indicated Resolved Time MRSA-Contact IsolationComment: 0 04/26/2021 11:03 AM LINE DRIVER Infection erroneous documented as of this encounter
--- OUTSIDE RECORDS SUMMARY | 2022-03-22 13:59 | XMS_ITS | Encounter Summary ---
:1960 Author Organization [facility] Address [address] [place] [address] Care Team Providers Name Role Phone Unavailable Primary Care Provider Unavailable Encounter Details Date Type Department Care Team Description 03/20/2009 Results Only [facility] Liam Traylor MD Hospital Results [address] [place], [place] [address] (Wo rk) Social History [...] 10:43 AM Resul ts for this EVALUATION BUS PERSON procedure are i n the results section. documented in this encounter Results SPEECH EVALUATION, COMPLEX (03/20/2009 10:43 AM BUS PERSON) Anatomical Region Laterality Modality Other Specimen (Source) Anatomical Collection Method Collection Time Re ceived Time Location / / Volume Laterality 03/20/2009 10:43 AM BUS PERSON Impressions 03/20/2009 11:20 AM BUS PERSON VIDEO SPEECH EVALUATION Mar 20, 2009 10: [...] MRSA-Contact IsolationComment: 0 04/26/2021 11:03 AM BUS PERSON Infection erroneous documented as of this encounter
--- OUTSIDE RECORDS SUMMARY | 2022-03-22 13:59 | XMS_ITS | Encounter Summary ---
:1960 Author Organization [facility] Address [address] [place] [address] Care Team Providers Name Role Phone Unavailable Primary Care Provider Unavailable Encounter Details Date Type Department Care Team Description 03/17/2009 Historic Notes INTERFACED REPORT Deep Alston MD [address] [place], [place] [address] (Wo rk) Social History [...] above. Stable. On vent. Vent mgmt per it instructor. Check daily cxr while on vent. More [...] Time MRSA-Contact IsolationComment: 0 04/26/2021 11:03 AM NATIONAL ACCOUNT REPRESENTATIVE Infection erroneous documented as of this encounter
--- OUTSIDE RECORDS SUMMARY | 2022-03-22 13:59 | XMS_ITS | Encounter Summary ---
:1960 Author Organization [place] Address [address] [place] [address] Care Team Providers Name Role Phone Unavailable Primary Care Provider Unavailable Encounter Details Date Type Department Care Team Description 03/20/[address] [facility]-Gianni Church MD Hospitalists [address] [place], [place] [address] (Wo rk) Social History Tobacco Use Types [...] 03/20/2009 8:39 PM Resul ts for this CHANNELER procedure are i n the results section. GLUCOSE BY METER Routine 03/20/2009 4:06 PM Resul ts for this CHANNELER procedure are i n the results section. MAGNESIUM Timed 03/20/2009 3:33 PM Results f or this CHANNELER procedure are i n the results section. GLUCOSE BY METER Routine 03/20/2009 11:45 AM Resu lts for this CHANNELER procedure are i n the results section. GLUCOSE BY METER Routine 03/20/2009 7:25 AM Resul ts for this CHANNELER procedure are i n the results section. MAGNESIUM Routine 03/20/2009 5:04 AM Results f or this CHANNELER procedure are i n the results section. BASIC METABOLIC Routine 03/20/2009 5:04 AM Result s for this PANEL CHANNELER procedure are i n the results section. GLUCOSE BY METER Routine 03/20/2009 4:25 AM Resul ts for this CHANNELER procedure are i n the results section. GLUCOSE BY METER Routine 03/20/2009 12:04 AM Resu lts for this CHANNELER procedure are i n the results section. documented in this encounter Results Glucose by meter (03/20/2009 8:39 PM CHANNELER) athologist Signature Glucose 94 60 - 99 MISYS mg/dL Specimen Anatomical Collection Method Collection Time Receive d Time (Source) Location / / Volume Laterality 03/20/2009 8:39 PM 9 7:30 CHANNELER AM CHANNELER Kaiden Carpenter MD LAB - BEAKER POCT Performing Organization Address City/[facility] Phon e Number MISYS (ABNORMAL) Glucose by meter (03/20/2009 4:06 PM CHANNELER) athologist Signature Glucose 142 (H) 60 - 99 MISYS mg/dL Specimen Anatomical Collection Method Collection Time Receive d Time (Source) Location / / Volume Laterality 03/20/2009 4:06 PM 7:30 CHANNELER AM CHANNELER Kaiden REHMAN - JESICA POCT Performing Organization Address [facility] Phon e Number MISYS (ABNORMAL) Magnesium (03/20/2009 3:33 PM CHANNELER) athologist Signature Magnesium 2.7 (H) 1.6 - 2.3 MISYS mg/dL Comment: Results confirmed by repeat patricia t Specimen Anatomical Collection Method Collection Time Receive d Time (Source) Location / / Volume Laterality 03/20/2009 3:33 PM 9 4:00 CHANNELER PM CHANNELER Kaiden Carpenter MD LAB - BLOOD ORDERABLES Performing Organization Address City/[facility]/ZIP Code Phon e Number MISYS (ABNORMAL) Glucose by meter (03/20/2009 11:45 AM CHANNELER) athologist Signature Glucose 154 (H) 60 - 99 MISYS mg/dL Specimen Anatomical Collection Method Collection Time Receive d Time (Source) Location / / Volume Laterality 03/20/2009 11:45 03/21/2009 7:30 AM CHANNELER AM CHANNELER Kaiden Carpenter MD LAB - BEJAZ POCT Performing Organization Address City/State/ZIP Code Phon e Number MISYS (ABNORMAL) Glucose by meter (03/20/2009 7:25 AM CHANNELER) P athologist Signature Glucose 145 (H) 60 - 99 MISYS mg/dL Specimen Anatomical Collection Method Collection Time Receive d Time (Source) Location / / Volume Laterality 03/20/2009 7:25 AM 9 7:30 CHANNELER AM CHANNELER Kaiden Carpenter MD LAB - BEAKER POCT Performing Organization Address [facility] Code Phon e Number MISYS (ABNORMAL) Magnesium (03/20/2009 5:04 AM CHANNELER) athologist Signature Magnesium 1.2 (L) 1.6 - 2.3 MISYS mg/dL Specimen (Source) Anatomical Collection Method Collection Time Re ceived Time Location / / Volume Laterality 03/20/2009 5:04 AM 9 CHANNELER Brian Turner MD LAB - BLOOD ORDERABLES Performing Organization Address [facility] Phon e Number MISYS (ABNORMAL) Basic metabolic panel (03/20/2009 5:04 AM CHANNELER) athologist Signature Sodium 142 133 - 144 [...] / Volume Laterality 03/20/2009 5:04 AM 9 CHANNELER Liam Traylor MD LAB - BLOOD ORDERABLES Performing Organization Address City/[facility]/ZIP Code Phon e Number MISYS (ABNORMAL) Glucose by meter (03/20/2009 4:25 AM CHANNELER) P athologist Signature Glucose 149 (H) 60 - 99 MISYS mg/dL Specimen Anatomical Collection Method Collection Time Receive d Time (Source) Location / / Volume Laterality 03/20/2009 4:25 AM 9 4:35 CHANNELER AM CHANNELER Kaiden REHMAN - JESICA POCT Performing Organization Address City/State/ZIP Code Phon e Number MISYS (ABNORMAL) Glucose by meter (03/20/2009 12:04 AM CHANNELER) P athologist Signature Glucose 155 (H) 60 - 99 MISYS mg/dL Specimen Anatomical Collection Method Collection Time Receive d Time (Source) Location / / Volume Laterality 03/20/2009 12:04 03/20/2009 AM CHANNELER 12:10 AM CHANNELER Kaiden REHMAN - JESICA POCT Performing Organization Address City/State/ZIP Code Phon e Number MISYS documented in this encounter Visit Diagnoses Not on filedocumented in this encounter Additional Health Concerns Infection Onset Date Last Indicated Resolved Time MRSA-Contact IsolationComment: 0 04/26/2021 11:03 AM CHANNELER Infection erroneous documented as of this encounter
--- OUTSIDE RECORDS SUMMARY | 2022-03-22 13:59 | XMS_ITS | Encounter Summary ---
:1960 Author Organization [place] Address [address] [place] [id number] Care Team Providers Name Role Phone Unavailable Primary Care Provider Unavailable Encounter Details Date Type Department Care Team Description 03/19/2009 Historic Notes INTERFACED REPORT Deep Alston MD [address] [place], [place] [address] (Wo rk) Social History [...] MRSA-Contact IsolationComment: 0 04/26/2021 11:03 AM SENIOR NAVAL PARACHUTIST Infection erroneous documented as of this encounter
--- OUTSIDE RECORDS SUMMARY | 2022-03-22 13:59 | XMS_ITS | Encounter Summary ---
:1960 Author Organization [place] Address [address] [place] [address] Care Team Providers Name Role Phone Unavailable Primary Care Provider Unavailable Encounter Details Date Type Department Care Team Description 03/19/2009 Historic Results [facility]Gianni Church MD Hospitalists [address] [place], [place] [address] (Wo rk) Social History [...] 03/19/2009 10:05 PM Resu lts for this AUTOMOBILE UPHOLSTERER procedure are i n the results section. GLUCOSE BY METER Routine 03/19/2009 6:26 PM Resul ts for this AUTOMOBILE UPHOLSTERER procedure are i n the results section. GLUCOSE BY METER Routine 03/19/2009 11:57 AM Resu lts for this AUTOMOBILE UPHOLSTERER procedure are i n the results section. GLUCOSE BY METER Routine 03/19/2009 8:21 AM Resul ts for this AUTOMOBILE UPHOLSTERER procedure are i n the results section. PHOSPHORUS Routine 03/19/2009 6:20 AM Results f or this AUTOMOBILE UPHOLSTERER procedure are i n the results section. MAGNESIUM Routine 03/19/2009 6:20 AM Results f or this AUTOMOBILE UPHOLSTERER procedure are i n the results section. BASIC METABOLIC Routine 03/19/2009 6:20 AM Result s for this PANEL AUTOMOBILE UPHOLSTERER procedure are i n the results section. CBC WITH PLATELETS Routine 03/19/2009 6:20 AM Res ults for this AUTOMOBILE UPHOLSTERER procedure are i n the results section. C DIFFICILE TOXIN A Routine 03/19/2009 6:10 AM Re sults for this AND B ([facility]) AUTOMOBILE UPHOLSTERER procedure are in the results section. C DIFFICILE CULTURE Routine 03/19/2009 6:10 AM Re sults for this AUTOMOBILE UPHOLSTERER procedure are i n the results section. GLUCOSE BY METER Routine 03/19/2009 3:59 AM Resul ts for this AUTOMOBILE UPHOLSTERER procedure are i n the results section. GLUCOSE BY METER Routine 03/19/2009 12:37 AM Resu lts for this AUTOMOBILE UPHOLSTERER procedure are i n the results section. documented in this encounter Results (ABNORMAL) Glucose by meter (03/19/2009 10:05 PM AUTOMOBILE UPHOLSTERER) P athologist Signature Glucose 145 (H) 60 - 99 MISYS mg/dL Specimen Anatomical Collection Method Collection Time Receive d Time (Source) Location / / Volume Laterality 03/19/2009 10:05 03/19/2009 PM AUTOMOBILE UPHOLSTERER 10:11 PM AUTOMOBILE UPHOLSTERER Kaiden REHMAN - JESICA POCT Performing Organization Address City/[facility] Phon e Number MISYS (ABNORMAL) Glucose by meter (03/19/2009 6:26 PM AUTOMOBILE UPHOLSTERER) P athologist Signature Glucose 157 (H) 60 - 99 MISYS mg/dL Specimen Anatomical Collection Method Collection Time Receive d Time (Source) Location / / Volume Laterality 03/19/2009 6:26 PM 9 8:55 AUTOMOBILE UPHOLSTERER PM AUTOMOBILE UPHOLSTERER Kaiden REHMAN - JESICA POCT Performing Organization Address [facility] Phon e Number MISYS (ABNORMAL) Glucose by meter (03/19/2009 11:57 AM AUTOMOBILE UPHOLSTERER) P athologist Signature Glucose 214 (H) 60 - 99 MISYS mg/dL Comment: RN/Dr notified Specimen Anatomical Collection Method Collection Time Receive d Time (Source) Location / / Volume Laterality 03/19/2009 11:57 03/19/2009 5:26 AM AUTOMOBILE UPHOLSTERER PM AUTOMOBILE UPHOLSTERER Kaiden Carpenter MD LAB - BEJAZ POCT Performing Organization Address [facility] Phon e Number MISYS (ABNORMAL) Glucose by meter (03/19/2009 8:21 AM AUTOMOBILE UPHOLSTERER) P athologist Signature Glucose 176 (H) 60 - 99 MISYS mg/dL Comment: RN/Dr notified Specimen Anatomical Collection Method Collection Time Receive d Time (Source) Location / / Volume Laterality 03/19/2009 8:21 AM 9 5:25 AUTOMOBILE UPHOLSTERER PM AUTOMOBILE UPHOLSTERER Kaiden Carpenter MD LAB - BEAKER POCT Performing Organization Address City/State/ZIP Code Phon e Number MISYS (ABNORMAL) Basic metabolic panel (03/19/2009 6:20 AM AUTOMOBILE UPHOLSTERER) Analysis Performed At Patho logist Time Signature [...] / Volume Laterality 03/19/2009 6:20 AM 9 AUTOMOBILE UPHOLSTERER Brian Turner MD LAB - BLOOD ORDERABLES Performing Organization Address City/State/ZIP Code Phon e Number MISYS (ABNORMAL) Magnesium (03/19/2009 6:20 AM AUTOMOBILE UPHOLSTERER) athologist Signature Magnesium 1.3 (L) 1.6 - 2.3 MISYS mg/dL Specimen (Source) Anatomical Collection Method Collection Time Re ceived Time Location / / Volume Laterality 03/19/2009 6:20 AM 9 AUTOMOBILE UPHOLSTERER Brian Turner MD LAB - BLOOD ORDERABLES Performing Organization Address City/State/ZIP Code Phon e Number MISYS Phosphorus (03/19/2009 6:20 AM AUTOMOBILE UPHOLSTERER) P athologist Signature Phosphorus 2.5 2.5 - 4.5 MISYS mg/dL Specimen (Source) Anatomical Collection Method Collection Time Re ceived Time Location / / Volume Laterality 03/19/2009 6:20 AM 9 AUTOMOBILE UPHOLSTERER Brian Turner MD LAB - BLOOD ORDERABLES Performing Organization Address City/State/ZIP Code Phon e Number MISYS (ABNORMAL) CBC with platelets (03/19/2009 6:20 AM AUTOMOBILE UPHOLSTERER) Analysis Performed At Patho logist Time Signature [...] / Volume Laterality 03/19/2009 6:20 AM 9 AUTOMOBILE UPHOLSTERER Brian Turner MD LAB - BLOOD ORDERABLES Performing Organization Address City/State/ZIP Code Phon e Number MISYS C difficile culture (03/19/2009 6:10 AM AUTOMOBILE UPHOLSTERER) [facility] Method Time Signature Specimen Feces MISYS Descrip C Difficile No Clostridium MISYS Culture difficile isolated Specimen Anatomical Collection Method Collection Time Receive d Time (Source) Location / / Volume Laterality 03/19/2009 6:10 AM 9 6:14 AUTOMOBILE UPHOLSTERER AM AUTOMOBILE UPHOLSTERER Kaiden Carpenter MD LAB - MICRO GENERAL ORDERABL ES Performing Organization Address City/State/ZIP Code Phon e Number MISYS C difficile toxin A and B (03/19/2009 6:10 AM AUTOMOBILE UPHOLSTERER) [facility] Method Time Signature Specimen Feces MISYS Description [...] / Volume Laterality 03/19/2009 6:10 AM 6:14 AUTOMOBILE UPHOLSTERER AM AUTOMOBILE UPHOLSTERER Kaiden Carpenter MD LAB - BLOOD ORDERABLES Performing Organization Address City/[facility] Phon e Number MISYS (ABNORMAL) Glucose by meter (03/19/2009 3:59 AM AUTOMOBILE UPHOLSTERER) P athologist Signature Glucose 166 (H) 60 - 99 MISYS mg/dL Specimen Anatomical Collection Method Collection Time Receive d Time (Source) Location / / Volume Laterality 03/19/2009 3:59 AM 9 5:25 AUTOMOBILE UPHOLSTERER PM AUTOMOBILE UPHOLSTERER Kaiden REHMAN - BEJAZ POCT Performing Organization Address [facility] Phon e Number MISYS (ABNORMAL) Glucose by meter (03/19/2009 12:37 AM AUTOMOBILE UPHOLSTERER) P athologist Signature Glucose 174 (H) 60 - 99 MISYS mg/dL Specimen Anatomical Collection Method Collection Time Receive d Time (Source) Location / / Volume Laterality 03/19/2009 12:37 03/19/2009 5:25 AM AUTOMOBILE UPHOLSTERER PM AUTOMOBILE UPHOLSTERER Kaiden MOONEY POCT Performing Organization Address [facility] Phon e Number MISYS documented in this encounter Visit Diagnoses Not on filedocumented in this encounter Additional Health Concerns Infection Onset Date Last Indicated Resolved Time MRSA-Contact IsolationComment: 0 04/26/2021 11:03 AM AUTOMOBILE UPHOLSTERER Infection erroneous documented as of this encounter
--- OUTSIDE RECORDS SUMMARY | 2022-03-22 13:59 | XMS_ITS | Encounter Summary ---
:1960 Author Organization [place] Address [address] [place] [address] Care Team Providers Name Role Phone Unavailable [...] as of this encounter Progress Notes Interface, Packer Fuser - 07/10/2010 3:15 PM CDT SWS-Attempted again to assess pt and pt continues to be sleeping. Will try again. [Signature] Author: Janeen Bai (MECHANIC WELDER TRUCK DRIVER) [Signed 14:05] documented in this encounter Plan of Treatment Not on filedocumented as of this encounter Visit Diagnoses Not on filedocumented in this encounter Additional Health Concerns Infection Onset Date Last Indicated Resolved Time MRSA-Contact IsolationComment: 0 04/26/2021 11:03 AM BACKHAUL DRIVER Infection erroneous documented as of this encounter
--- OUTSIDE RECORDS SUMMARY | 2022-03-22 13:59 | XMS_ITS | Encounter Summary ---
:1960 Author Organization [place] Address [address] [place] [address] Care Team Providers Name Role Phone Unavailable Primary Care Provider Unavailable Encounter Details Date Type Department Care Team Description 03/18/2009 Historic Notes INTERFACED REPORT Deep Alston MD [address] [place], [place] [address] (Wo rk) Social History [...] Time MRSA-Contact IsolationComment: 0 04/26/2021 11:03 AM PLATE GRINDER Infection erroneous documented as of this encounter
--- OUTSIDE RECORDS SUMMARY | 2022-03-22 13:59 | XMS_ITS | Encounter Summary ---
:1960 Author Organization [place] Address [address] [place] [address] Care Team Providers Name Role Phone Unavailable Primary Care Provider Unavailable Encounter Details Date Type Department Care Team Description 03/18/2009 Historic Results [facility]-Gianni Church MD Hospitalists [address] [place], [place] [address] (Wo rk) Social History [...] 03/18/2009 8:23 PM Resul ts for this PRINTED CIRCUIT BOARD PCB DESIGNER procedure are i n the results section. GLUCOSE BY METER Routine 03/18/2009 4:03 PM Resul ts for this PRINTED CIRCUIT BOARD PCB DESIGNER procedure are i n the results section. POTASSIUM Routine 03/18/2009 2:45 PM Results f or this PRINTED CIRCUIT BOARD PCB DESIGNER procedure are i n the results section. PHOSPHORUS Routine 03/18/2009 2:45 PM Results f or this PRINTED CIRCUIT BOARD PCB DESIGNER procedure are i n the results section. MAGNESIUM Routine 03/18/2009 2:45 PM Results f or this PRINTED CIRCUIT BOARD PCB DESIGNER procedure are i n the results section. GLUCOSE BY METER Routine 03/18/2009 12:00 Results for this PM PRINTED CIRCUIT BOARD PCB DESIGNER procedure are i n the results section. CBC WITH PLATELETS & Routine 03/18/2009 7:45 AM R esults for this DIFFERENTIAL PRINTED CIRCUIT BOARD PCB DESIGNER procedure are i n the results section. PHOSPHORUS Routine 03/18/2009 7:45 AM Results f or this PRINTED CIRCUIT BOARD PCB DESIGNER procedure are i n the results section. MAGNESIUM Routine 03/18/2009 7:45 AM Results f or this PRINTED CIRCUIT BOARD PCB DESIGNER procedure are i n the results section. BASIC METABOLIC PANEL Routine 03/18/2009 7:45 AM Results for this PRINTED CIRCUIT BOARD PCB DESIGNER procedure are i n the results section. GLUCOSE BY METER Routine 03/18/2009 7:36 AM Resul ts for this PRINTED CIRCUIT BOARD PCB DESIGNER procedure are i n the results section. GLUCOSE BY METER Routine 03/18/2009 3:47 AM Resul ts for this PRINTED CIRCUIT BOARD PCB DESIGNER procedure are i n the results section. GLUCOSE BY METER Routine 03/18/2009 12:08 Results for this AM PRINTED CIRCUIT BOARD PCB DESIGNER procedure are i n the results section. documented in this encounter Results (ABNORMAL) Glucose by meter (03/18/2009 8:23 PM PRINTED CIRCUIT BOARD PCB DESIGNER) P athologist Signature Glucose 139 (H) 60 - 99 MISYS mg/dL Specimen Anatomical Collection Method Collection Time Receive d Time (Source) Location / / Volume Laterality 03/18/2009 8:23 PM 9 8:35 PRINTED CIRCUIT BOARD PCB DESIGNER PM PRINTED CIRCUIT BOARD PCB DESIGNER Kaiden REHMAN - JESICA POCT Performing Organization Address City/[facility]/ZIP Code Phon e Number MISYS (ABNORMAL) Glucose by meter (03/18/2009 4:03 PM PRINTED CIRCUIT BOARD PCB DESIGNER) P athologist Signature Glucose 213 (H) 60 - 99 MISYS mg/dL Specimen Anatomical Collection Method Collection Time Receive d Time (Source) Location / / Volume Laterality 03/18/2009 4:03 PM 9 4:15 PRINTED CIRCUIT BOARD PCB DESIGNER PM PRINTED CIRCUIT BOARD PCB DESIGNER Kaiden REHMAN - JESICA POCT Performing Organization Address City/[facility] Code Phon e Number MISYS (ABNORMAL) Phosphorus (03/18/2009 2:45 PM PRINTED CIRCUIT BOARD PCB DESIGNER) P athologist Signature Phosphorus 2.3 (L) 2.5 - 4.5 MISYS mg/dL Specimen Anatomical Collection Method Collection Time Receive d Time (Source) Location / / Volume Laterality 03/18/2009 2:45 PM 9 2:51 PRINTED CIRCUIT BOARD PCB DESIGNER PM PRINTED CIRCUIT BOARD PCB DESIGNER Brian Turner MD LAB - BLOOD ORDERABLES Performing Organization Address City/[facility]/ZIP [facility] Phon e Number MISYS Magnesium (03/18/2009 2:45 PM PRINTED CIRCUIT BOARD PCB DESIGNER) P athologist Signature Magnesium 1.9 1.6 - 2.3 MISYS mg/dL Specimen Anatomical Collection Method Collection Time Receive d Time (Source) Location / / Volume Laterality 03/18/2009 2:45 PM 9 2:52 PRINTED CIRCUIT BOARD PCB DESIGNER PM PRINTED CIRCUIT BOARD PCB DESIGNER Brian Turner MD LAB - BLOOD ORDERABLES Performing Organization Address [facility] Phon e Number MISYS Potassium (03/18/2009 2:45 PM PRINTED CIRCUIT BOARD PCB DESIGNER) athologist Signature Potassium 4.4 3.4 - 5.3 MISYS mmol/L Comment: Results confirmed by repeat patricia t Specimen Anatomical Collection Method Collection Time Receive d Time (Source) Location / / Volume Laterality 03/18/2009 2:45 PM 9 2:52 PRINTED CIRCUIT BOARD PCB DESIGNER PM PRINTED CIRCUIT BOARD PCB DESIGNER Brian Turner MD LAB - BLOOD ORDERABLES Performing Organization Address [facility] Phon e Number MISYS (ABNORMAL) Glucose by meter (03/18/2009 12:00 PM PRINTED CIRCUIT BOARD PCB DESIGNER) athologist Signature Glucose 172 (H) 60 - 99 MISYS mg/dL Specimen Anatomical Collection Method Collection Time Receive d Time (Source) Location / / Volume Laterality 03/18/2009 12:00 03/18/2009 PM PRINTED CIRCUIT BOARD PCB DESIGNER 12:35 PM PRINTED CIRCUIT BOARD PCB DESIGNER Kaiden Carpenter MD LAB - BEAKER POCT Performing Organization Address [facility] Phon e Number MISYS (ABNORMAL) Magnesium (03/18/2009 7:45 AM PRINTED CIRCUIT BOARD PCB DESIGNER) athologist Signature Magnesium 1.5 (L) 1.6 - 2.3 MISYS mg/dL Specimen (Source) Anatomical Collection Method Collection Time Re ceived Time Location / / Volume Laterality 03/18/2009 7:45 AM 9 PRINTED CIRCUIT BOARD PCB DESIGNER Brian Turner MD LAB - BLOOD ORDERABLES Performing Organization Address [facility] Phon e Number MISYS (ABNORMAL) Basic metabolic panel (03/18/2009 7:45 AM PRINTED CIRCUIT BOARD PCB DESIGNER) Analysis Performed At Patho logist Time Signature [...] / Volume Laterality 03/18/2009 7:45 AM 9 PRINTED CIRCUIT BOARD PCB DESIGNER Brian Turner MD LAB - BLOOD ORDERABLES Performing Organization Address City/State/ZIP Code Phon e Number MISYS (ABNORMAL) Phosphorus (03/18/2009 7:45 AM PRINTED CIRCUIT BOARD PCB DESIGNER) P athologist Signature Phosphorus 1.6 (L) 2.5 - 4.5 MISYS mg/dL Specimen (Source) Anatomical Collection Method Collection Time Re ceived Time Location / / Volume Laterality 03/18/2009 7:45 AM 9 PRINTED CIRCUIT BOARD PCB DESIGNER Brian Turner MD LAB - BLOOD ORDERABLES Performing Organization Address City/State/ZIP Code Phon e Number MISYS (ABNORMAL) CBC with platelets differential (03/18/2009 7:45 AM PRINTED CIRCUIT BOARD PCB DESIGNER) Component Value Ref Test Analysis Performed At [...] / Volume Laterality 03/18/2009 7:45 AM 9 PRINTED CIRCUIT BOARD PCB DESIGNER Liam Traylor MD LAB - BLOOD ORDERABLES Performing Organization Address City/[facility]/ZIP Code Phon e Number MISYS (ABNORMAL) Glucose by meter (03/18/2009 7:36 AM PRINTED CIRCUIT BOARD PCB DESIGNER) athologist Signature Glucose 221 (H) 60 - 99 MISYS mg/dL Specimen Anatomical Collection Method Collection Time Receive d Time (Source) Location / / Volume Laterality 03/18/2009 7:36 AM 9 8:21 PRINTED CIRCUIT BOARD PCB DESIGNER AM PRINTED CIRCUIT BOARD PCB DESIGNER Kaiden Carpenter MD LAB - BEAKER POCT Performing Organization Address City/State/ZIP Code Phon e Number MISYS (ABNORMAL) Glucose by meter (03/18/2009 3:47 AM PRINTED CIRCUIT BOARD PCB DESIGNER) P athologist Signature Glucose 206 (H) 60 - 99 MISYS mg/dL Specimen Anatomical Collection Method Collection Time Receive d Time (Source) Location / / Volume Laterality 03/18/2009 3:47 AM 9 4:05 PRINTED CIRCUIT BOARD PCB DESIGNER AM PRINTED CIRCUIT BOARD PCB DESIGNER Kaiden Carpenter MD LAB - JESICA POCT Performing Organization Address City/State/ZIP Code Phon e Number MISYS (ABNORMAL) Glucose by meter (03/18/2009 12:08 AM PRINTED CIRCUIT BOARD PCB DESIGNER) P athologist Signature Glucose 188 (H) 60 - 99 MISYS mg/dL Specimen Anatomical Collection Method Collection Time Receive d Time (Source) Location / / Volume Laterality 03/18/2009 12:08 03/18/2009 3:15 AM PRINTED CIRCUIT BOARD PCB DESIGNER AM PRINTED CIRCUIT BOARD PCB DESIGNER Kaiden MOONEY POCT Performing Organization Address City/State/ZIP [facility] Phon e Number MISYS documented in this encounter Visit Diagnoses Not on filedocumented in this encounter Additional Health Concerns Infection Onset Date Last Indicated Resolved Time MRSA-Contact IsolationComment: 0 04/26/2021 11:03 AM PRINTED CIRCUIT BOARD PCB DESIGNER Infection erroneous documented as of this encounter
--- OUTSIDE RECORDS SUMMARY | 2022-03-22 13:59 | XMS_ITS | Encounter Summary ---
:1960 Author Organization [place] Address [address] [place] [address] Care Team Providers Name Role Phone Unavailable [...] as of this encounter Progress Notes Interface, Co Founder And Director - 07/10/2010 3:20 PM CDT NUTRITION NOTE: Pts renal fx improving. Protein needs increased to 1.0-1.2g/kg. Able to change TF formula to Fibersource HN. New TF formula order: Fibersource HN @ 75mL/hr = 2160 kcal (25kcal/kg), 96g pro (1.1g/kg), 18 g fiber, and 1458mL fluid. This meets 100% of pts nutritional needs. [Signature] Author: NIRMALA LAND (RD, LD) [Signed 10:32] Interface, Co Founder And Director - 07/10/2010 3:18 PM CDT SH--Routine visit. Introduced myself to patient, who was vented but awake. No family members were present. Provided reassurance, caring touch, and emotional care and support. Also, offered prayer, which he declined. Will follow. [Signature] Author: Luciana Rose (Washer Off) [Signed 18:30] documented in this encounter Plan of Treatment Not on filedocumented as of this encounter Visit Diagnoses Not on filedocumented in this encounter Additional Health Concerns Infection Onset Date Last Indicated Resolved Time MRSA-Contact IsolationComment: 0 04/26/2021 11:03 AM POWER DRIVEN BRUSH MAKER Infection erroneous documented as of this encounter
--- OUTSIDE RECORDS SUMMARY | 2022-03-22 13:59 | XMS_ITS | Encounter Summary ---
:1960 Author Organization [place] Address [address] [place] [address] Care Team Providers Name Role Phone Unavailable Primary Care Provider Unavailable Encounter Details Date Type Department Care Team Description 03/19/2009 Historic Notes INTERFACED REPORT Bill Palomares, ATHLETIC COACH [facility] [address] [facility] [address] [place] [place] [address] Social History Tobacco Use [...] MRSA-Contact IsolationComment: 0 04/26/2021 11:03 AM SUPERVISOR DEHYDROGENATION Infection erroneous documented as of this encounter
--- OUTSIDE RECORDS SUMMARY | 2022-03-22 13:59 | XMS_ITS | Encounter Summary ---
:1960 Author Organization [place] Address [address] [place] [address] Care Team Providers Name Role Phone Unavailable Primary Care Provider Unavailable Encounter Details Date Type Department Care Team Description 03/18/2009 Historic Notes INTERFACED REPORT Xu Wyatt MD [address] [facility] [address] [place] [address] (Wo rk) Social History Tobacco [...] coarse BS Abd: soft Ext: no edema Manager Contact 1.6, Na 145, WBC 8.8, Hgb 9.9, K: 3.1, PO4 1.6, Mg 1.5 Pt passed CPAP trial A/P: Respiratory failure: exubated, agressive pulm toilet, mobilize. DC narcs and ativan Recovering ATN with Na 145: change to 1/2 NS Severe hypokalemia, hypomagnesemia, hypophosphatemia: replace D/C NG, swallow study tomorrow [phone] [Signature] Author: BRIAN WYATT) [Signed 08:45] documented in this encounter Plan of Treatment Not on filedocumented as of this encounter Visit Diagnoses Not on filedocumented in this encounter Additional Health Concerns Infection Onset Date Last Indicated Resolved Time MRSA-Contact IsolationComment: 0 04/26/2021 11:03 AM ACCOUNT INFORMATION CLERK Infection erroneous documented as of this encounter
--- OUTSIDE RECORDS SUMMARY | 2022-03-22 13:59 | XMS_ITS | Encounter Summary ---
:1960 Author Organization [place] Address [address] [place] [address] Care Team Providers Name Role Phone Unavailable Primary Care Provider Unavailable Encounter Details Date Type Department Care Team Description 03/19/2009 Historic Notes INTERFACED REPORT Xu Wyatt MD [address] [facility] [address] [place], [place] [phone] (Wo rk) Social History Tobacco Use Types [...] Chest: CTA Abd: soft Ext: no edema Pole Climber 1.5 I/Os balanced A/P: Renal failure; recovering [...] Time MRSA-Contact IsolationComment: 0 04/26/2021 11:03 AM PACKING MACHINE INSPECTOR Infection erroneous documented as of this encounter
--- OUTSIDE RECORDS SUMMARY | 2022-03-22 13:59 | XMS_ITS | Encounter Summary ---
:1960 Author Organization [place] Address [address] [place] [address] Care Team Providers Name Role Phone Unavailable Primary Care Provider Unavailable Encounter Details Date Type Department Care Team Description 03/17/2009 Historic Notes INTERFACED REPORT Xu Wyatt MD 420 [facility] 195 [place], [place] [address] (Wo rk) Social History Tobacco Use Types [...] 475 K: 2.9, Na 141, Bicarb 37, Lard Bleacher 2.2, WBC 6.3 A/P: Acute renal failure: resolving. Now with alkalosis. Folloow Na closely. May need to switch to 1/2 NS if Na increases. Respitratory failure: Pt much more awake today. Hold dexmetatomidine, Pt on cpap trial now: will evaluate for extubation Malnutrition: TFs Hypokalemia, Hypomagnesemia: replace GB [phone] [Signature] Author: BRIAN WYATT) [Signed 08:48] documented in this encounter Plan of Treatment Not on filedocumented as of this encounter Visit Diagnoses Not on filedocumented in this encounter Additional Health Concerns Infection Onset Date Last Indicated Resolved Time MRSA-Contact IsolationComment: 0 04/26/2021 11:03 AM TRENCH TRIMMER FINE Infection erroneous documented as of this encounter
--- OUTSIDE RECORDS SUMMARY | 2022-03-22 14:00 | XMS_ITS | Encounter Summary ---
:1960 Author Organization [place] Address [address] [place] [address] Care Team Providers Name Role Phone Unavailable [...] Routine 03/14/2009 12:11 AM Results for this HAT BRIM AND CROWN LAMINATING OPERATOR procedure are i n the results section . documented in this encounter Results EKG 12 LEAD (03/14/2009 12:11 AM HAT BRIM AND CROWN LAMINATING OPERATOR) Component Value Ref Range Test Analysis Performed Pathologis t Method Time At Signature Ventricular Rate 131 BPM RADIOLOGY RESULTS Atrial Rate 131 BPM RADIOLOGY RESULTS [place] Interval 142 ms RADIOLOGY RESULTS QRS Duration 90 ms RADIOLOGY RESULTS QT 278 ms RADIOLOGY RESULTS QTc 410 ms RADIOLOGY RESULTS P [place] 36 degrees RADIOLOGY RESULTS R AXIS -6 degrees RADIOLOGY RESULTS T [place] 28 degrees RADIOLOGY RESULTS Interpretation AGE AND [...] / Volume Laterality 03/14/2009 12:11 03/16/2009 AM HAT BRIM AND CROWN LAMINATING OPERATOR 10:46 AM HAT BRIM AND CROWN LAMINATING OPERATOR Transcripton Interface ECG ORDERABLES Performing Organization Address City/State/ZIP Code Phon e Number RADIOLOGY RESULTS documented in this encounter Visit Diagnoses Not on filedocumented in this encounter Additional Health Concerns Infection Onset Date Last Indicated Resolved Time MRSA-Contact IsolationComment: 0 04/26/2021 11:03 AM HAT BRIM AND CROWN LAMINATING OPERATOR Infection erroneous documented as of this encounter
--- OUTSIDE RECORDS SUMMARY | 2022-03-22 14:00 | XMS_ITS | Encounter Summary ---
:1960 Author Organization [place] Address [address] [place] [address] Care Team Providers Name Role Phone Unavailable Primary Care Provider Unavailable Encounter Details Date Type Department Care Team Description 03/15/2009 Historic Notes INTERFACED REPORT Deep Alston MD [address] [place], [place] [address] (Wo rk) Social History [...] Time MRSA-Contact IsolationComment: 0 04/26/2021 11:03 AM CARE TRANSITION MGR Infection erroneous documented as of this encounter
--- OUTSIDE RECORDS SUMMARY | 2022-03-22 14:00 | XMS_ITS | Encounter Summary ---
:1960 Author Organization [facility] Address [address] [place] [address] Care Team Providers Name Role Phone Unavailable Primary Care Provider Unavailable Encounter Details Date Type Department Care Team Description 03/16/2009 Historic Results [facility] Liam Traylor [facility] [address] [place], [place] [address] (Wo rk) Social History [...] Routine 03/16/2009 11:58 Results for this PM WATER TREATMENT PLANT OPERATOR procedure are i n the results section. GLUCOSE BY METER Routine 03/16/2009 8:09 PM Resul ts for this WATER TREATMENT PLANT OPERATOR procedure are i n the results section. ROUTINE UA WITH Routine 03/16/2009 5:10 PM Result s for this MICROSCOPIC WATER TREATMENT PLANT OPERATOR procedure are i n the results section. BLOOD CULTURE STAT 03/16/2009 5:10 PM Results for this WATER TREATMENT PLANT OPERATOR procedure are i n the results section. BLOOD CULTURE STAT 03/16/2009 5:10 PM Results for this WATER TREATMENT PLANT OPERATOR procedure are i n the results section. URINE CULTURE Routine 03/16/2009 5:10 PM Results for this WATER TREATMENT PLANT OPERATOR procedure are i n the results section. GLUCOSE BY METER Routine 03/16/2009 4:17 PM Resul ts for this WATER TREATMENT PLANT OPERATOR procedure are i n the results section. GLUCOSE BY METER Routine 03/16/2009 12:00 Results for this PM WATER TREATMENT PLANT OPERATOR procedure are i n the results section. GLUCOSE BY METER Routine 03/16/2009 7:56 AM Resul ts for this WATER TREATMENT PLANT OPERATOR procedure are i n the results section. CBC WITH PLATELETS & Routine 03/16/2009 6:15 AM R esults for this DIFFERENTIAL WATER TREATMENT PLANT OPERATOR procedure are i n the results section. PROTEIN TOTAL Routine 03/16/2009 6:15 AM Results for this WATER TREATMENT PLANT OPERATOR procedure are i n the results section. PREALBUMIN Routine 03/16/2009 6:15 AM Results f or this WATER TREATMENT PLANT OPERATOR procedure are i n the results section. PHOSPHORUS Routine 03/16/2009 6:15 AM Results f or this WATER TREATMENT PLANT OPERATOR procedure are i n the results section. MAGNESIUM Routine 03/16/2009 6:15 AM Results f or this WATER TREATMENT PLANT OPERATOR procedure are i n the results section. BILIRUBIN TOTAL Routine 03/16/2009 6:15 AM Result s for this WATER TREATMENT PLANT OPERATOR procedure are i n the results section. AST Routine 03/16/2009 6:15 AM Results f or this WATER TREATMENT PLANT OPERATOR procedure are i n the results section. ALT Routine 03/16/2009 6:15 AM Results f or this WATER TREATMENT PLANT OPERATOR procedure are i n the results section. ALKALINE PHOSPHATASE Routine 03/16/2009 6:15 AM R esults for this WATER TREATMENT PLANT OPERATOR procedure are i n the results section. ALBUMIN LEVEL Routine 03/16/2009 6:15 AM Results for this WATER TREATMENT PLANT OPERATOR procedure are i n the results section. BASIC METABOLIC PANEL Routine 03/16/2009 6:15 AM Results for this WATER TREATMENT PLANT OPERATOR procedure are i n the results section. GLUCOSE BY METER Routine 03/16/2009 4:18 AM Resul ts for this WATER TREATMENT PLANT OPERATOR procedure are i n the results section. GLUCOSE BY METER Routine 03/16/2009 12:05 Results for this AM WATER TREATMENT PLANT OPERATOR procedure are i n the results section. documented in this encounter Results (ABNORMAL) Glucose by meter (03/16/2009 11:58 PM WATER TREATMENT PLANT OPERATOR) P athologist Signature Glucose 185 (H) 60 - 99 MISYS mg/dL Specimen Anatomical Collection Method Collection Time Receive d Time (Source) Location / / Volume Laterality 03/16/2009 11:58 03/17/2009 8:15 PM WATER TREATMENT PLANT OPERATOR AM WATER TREATMENT PLANT OPERATOR Kaiden Carpenter MD [facility] Performing Organization Address City/State/ZIP Code Phon e Number MISYS (ABNORMAL) Glucose by meter (03/16/2009 8:09 PM WATER TREATMENT PLANT OPERATOR) P athologist Signature Glucose 160 (H) 60 - 99 MISYS mg/dL Specimen Anatomical Collection Method Collection Time Receive d Time (Source) Location / / Volume Laterality 03/16/2009 8:09 PM 9 WATER TREATMENT PLANT OPERATOR 11:21 PM WATER TREATMENT PLANT OPERATOR Kaiden Carpenter MD LAB - [place] POCT Performing Organization Address City/State/ZIP Code Phon e Number MISYS (ABNORMAL) Routine UA with microscopic (03/16/2009 5:10 PM WATER TREATMENT PLANT OPERATOR) Component Value Ref Test Analysis Performed At [facility] Range Method Time Signature Source Catheterized MISYS Urine Color Urine Straw MISYS Appearance Urine Clear MISYS Glucose Urine 150 (A) NEG MISYS mg/dL Bilirubin Urine Negative NEG MISYS Ketones Urine 5 (A) NEG MISYS mg/dL Specific [place] 1.008 1.003 - MISYS Urine 1.035 Blood [...] Volume Laterality 03/16/2009 5:10 PM 9 4:53 WATER TREATMENT PLANT OPERATOR PM WATER TREATMENT PLANT OPERATOR Liam Traylor MD LAB - URINE ORDERABLES Performing Organization Address City/[facility]/ZIP Code Phon e Number MISYS Urine culture (03/16/2009 5:10 PM WATER TREATMENT PLANT OPERATOR) Component Value Ref Test Analysis Performed At [facility] Range Method Time Signature Specimen Catheterized MISYS Description Urine Culture Micro 50 to 100,000 MISYS colonies/mL Coagulase negative Staphylococcus Comment: Sent final report to printer on 03.19.09 Micro Report Status FINAL 03/19/2009 MIS YS Specimen Anatomical Collection Method Collection Time Receive d Time (Source) Location / / Volume Laterality 03/16/2009 5:10 PM 9 4:53 WATER TREATMENT PLANT OPERATOR PM WATER TREATMENT PLANT OPERATOR Organism Antibiotic Method Susceptibility 50 to 100,000 [...] coagulase negative Vancomycin 2 Susceptible staphylococcus (toy) Liam Traylor MD LAB - MICRO GENERAL ORDERABL ES Performing Organization Address City/[facility] Phon e Number MISYS Blood culture (03/16/2009 5:10 PM WATER TREATMENT PLANT OPERATOR) [facility] [place] Method Time Signature Specimen PICC MISYS Description Culture Micro No growth MISYS after 6 days Micro Report FINAL MISYS Status [id number] Specimen Anatomical Collection Method Collection Time Receive d Time (Source) Location / / Volume Laterality 03/16/2009 5:10 PM 9 4:54 WATER TREATMENT PLANT OPERATOR PM WATER TREATMENT PLANT OPERATOR Liam Traylor MD LAB - MICRO GENERAL ORDERABL ES Performing Organization Address City/[facility] Phon e Number MISYS Blood culture (03/16/2009 5:10 PM WATER TREATMENT PLANT OPERATOR) [facility] [place] Method Time Signature Specimen Right Arm MISYS Description Culture Micro No growth MISYS after 6 days Micro Report FINAL MISYS Status [id number] Specimen Anatomical Collection Method Collection Time Receive d Time (Source) Location / / Volume Laterality 03/16/2009 5:10 PM 9 4:54 WATER TREATMENT PLANT OPERATOR PM WATER TREATMENT PLANT OPERATOR Liam Traylor MD LAB - MICRO GENERAL ORDERABL ES Performing Organization Address City/[facility] Phon e Number MISYS (ABNORMAL) Glucose by meter (03/16/2009 4:17 PM WATER TREATMENT PLANT OPERATOR) athologist Signature Glucose 159 (H) 60 - 99 MISYS mg/dL Specimen Anatomical Collection Method Collection Time Receive d Time (Source) Location / / Volume Laterality 03/16/2009 4:17 PM 9 5:25 WATER TREATMENT PLANT OPERATOR PM WATER TREATMENT PLANT OPERATOR Kaiden REHMAN - [place] POCT Performing Organization Address [facility] Phon e Number MISYS (ABNORMAL) Glucose by meter (03/16/2009 12:00 PM WATER TREATMENT PLANT OPERATOR) athologist Signature Glucose 156 (H) 60 - 99 MISYS mg/dL Specimen Anatomical Collection Method Collection Time Receive d Time (Source) Location / / Volume Laterality 03/16/2009 12:00 03/16/2009 PM WATER TREATMENT PLANT OPERATOR 12:20 PM WATER TREATMENT PLANT OPERATOR Kaiden MOONEY POCT Performing Organization Address [facility] Phon e Number MISYS (ABNORMAL) Glucose by meter (03/16/2009 7:56 AM WATER TREATMENT PLANT OPERATOR) athologist Signature Glucose 157 (H) 60 - 99 MISYS mg/dL Specimen Anatomical Collection Method Collection Time Receive d Time (Source) Location / / Volume Laterality 03/16/2009 7:56 AM 9 9:20 WATER TREATMENT PLANT OPERATOR AM WATER TREATMENT PLANT OPERATOR Kaiden MOONEY POCT Performing Organization Address [facility] Phon e Number MISYS (ABNORMAL) Basic metabolic panel (03/16/2009 6:15 AM WATER TREATMENT PLANT OPERATOR) athologist Signature Sodium 136 133 - 144 [...] / Volume Laterality 03/16/2009 6:15 AM 9 WATER TREATMENT PLANT OPERATOR Liam Traylor MD LAB - BLOOD ORDERABLES Performing Organization Address City/State/ZIP Code Phon e Number MISYS (ABNORMAL) CBC with platelets differential (03/16/2009 6:15 AM WATER TREATMENT PLANT OPERATOR) [facility] gist Method Time Signature MCV 93 [...] / Volume Laterality 03/16/2009 6:15 AM 9 WATER TREATMENT PLANT OPERATOR Liam Traylor MD LAB - BLOOD ORDERABLES Performing Organization Address [facility] Phon e Number MISYS Magnesium (03/16/2009 6:15 AM WATER TREATMENT PLANT OPERATOR) athologist Signature Magnesium 1.8 1.6 - 2.3 MISYS mg/dL Comment: Specimen hemolyzed Specimen (Source) Anatomical Collection Method Collection Time Re ceived Time Location / / Volume Laterality 03/16/2009 6:15 AM 9 WATER TREATMENT PLANT OPERATOR Brian Turner MD LAB - BLOOD ORDERABLES Performing Organization Address [facility] Phon e Number MISYS Phosphorus (03/16/2009 6:15 AM WATER TREATMENT PLANT OPERATOR) athologist Signature Phosphorus 3.7 2.5 - 4.5 MISYS mg/dL Comment: Specimen hemolyzed Specimen (Source) Anatomical Collection Method Collection Time Re ceived Time Location / / Volume Laterality 03/16/2009 6:15 AM 9 WATER TREATMENT PLANT OPERATOR Brian Turner MD LAB - BLOOD ORDERABLES Performing Organization Address [facility] Phon e Number MISYS (ABNORMAL) Prealbumin (03/16/2009 6:15 AM WATER TREATMENT PLANT OPERATOR) athologist Signature Prealbumin 10 (L) 15 - 45 MISYS mg/dL Specimen Anatomical Collection Method Collection Time Receive d Time (Source) Location / / Volume Laterality 03/16/2009 6:15 AM 9 1:43 WATER TREATMENT PLANT OPERATOR PM WATER TREATMENT PLANT OPERATOR Liam Traylor MD LAB - BLOOD ORDERABLES Performing Organization Address [facility] Phon e Number MISYS (ABNORMAL) Albumin level (03/16/2009 6:15 AM WATER TREATMENT PLANT OPERATOR) P athologist Signature Albumin 2.9 (L) 3.9 - 5.1 MISYS g/dL Specimen Anatomical Collection Method Collection Time Receive d Time (Source) Location / / Volume Laterality 03/16/2009 6:15 AM 9 2:07 WATER TREATMENT PLANT OPERATOR PM WATER TREATMENT PLANT OPERATOR Liam Traylor MD LAB - BLOOD ORDERABLES Performing Organization Address City/State/ZIP Code Phon e Number MISYS Alkaline phosphatase (03/16/2009 6:15 AM WATER TREATMENT PLANT OPERATOR) P athologist Signature Alkaline 142 40 - 150 MISYS Phosphatase U/L Specimen Anatomical Collection Method Collection Time Receive d Time (Source) Location / / Volume Laterality 03/16/2009 6:15 AM 9 2:07 WATER TREATMENT PLANT OPERATOR PM WATER TREATMENT PLANT OPERATOR Liam Traylor MD LAB - BLOOD ORDERABLES Performing Organization Address City/State/ZIP Code Phon e Number MISYS ALT (03/16/2009 6:15 AM WATER TREATMENT PLANT OPERATOR) P athologist Signature ALT 42 0 - 70 U/L MISYS Specimen Anatomical Collection Method Collection Time Receive d Time (Source) Location / / Volume Laterality 03/16/2009 6:15 AM 9 2:07 WATER TREATMENT PLANT OPERATOR PM WATER TREATMENT PLANT OPERATOR Liam Traylor MD LAB - BLOOD ORDERABLES Performing Organization Address City/[facility]/ZIP Code Phon e Number MISYS (ABNORMAL) AST (03/16/2009 6:15 AM WATER TREATMENT PLANT OPERATOR) P athologist Signature AST 106 (H) 0 - 55 U/L MISYS Specimen Anatomical Collection Method Collection Time Receive d Time (Source) Location / / Volume Laterality 03/16/2009 6:15 AM 9 2:07 WATER TREATMENT PLANT OPERATOR PM WATER TREATMENT PLANT OPERATOR Liam Traylor MD LAB - BLOOD ORDERABLES Performing Organization Address City/[facility]/ZIP Code Phon e Number MISYS Bilirubin total (03/16/2009 6:15 AM WATER TREATMENT PLANT OPERATOR) P athologist Signature Bilirubin Total 1.3 0.2 - 1.3 MISYS mg/dL Specimen Anatomical Collection Method Collection Time Receive d Time (Source) Location / / Volume Laterality 03/16/2009 6:15 AM 9 2:07 WATER TREATMENT PLANT OPERATOR PM WATER TREATMENT PLANT OPERATOR Liam Traylor MD LAB - BLOOD ORDERABLES Performing Organization Address City/State/ZIP Code Phon e Number MISYS (ABNORMAL) Protein total (03/16/2009 6:15 AM WATER TREATMENT PLANT OPERATOR) athologist Signature Protein Total 6.5 (L) 6.8 - 8.8 MISYS g/dL Specimen Anatomical Collection Method Collection Time Receive d Time (Source) Location / / Volume Laterality 03/16/2009 6:15 AM 9 2:07 WATER TREATMENT PLANT OPERATOR PM WATER TREATMENT PLANT OPERATOR Liam Traylor MD LAB - BLOOD ORDERABLES Performing Organization Address City/[facility] Code Phon e Number MISYS (ABNORMAL) Glucose by meter (03/16/2009 4:18 AM WATER TREATMENT PLANT OPERATOR) athologist Signature Glucose 189 (H) 60 - 99 MISYS mg/dL Specimen Anatomical Collection Method Collection Time Receive d Time (Source) Location / / Volume Laterality 03/16/2009 4:18 AM 9 9:20 WATER TREATMENT PLANT OPERATOR AM WATER TREATMENT PLANT OPERATOR Kaiden REHMAN - [place] POCT Performing Organization Address City/[facility] Phon e Number MISYS (ABNORMAL) Glucose by meter (03/16/2009 12:05 AM WATER TREATMENT PLANT OPERATOR) athologist Signature Glucose 187 (H) 60 - 99 MISYS mg/dL Specimen Anatomical Collection Method Collection Time Receive d Time (Source) Location / / Volume Laterality 03/16/2009 12:05 03/16/2009 9:20 AM WATER TREATMENT PLANT OPERATOR AM WATER TREATMENT PLANT OPERATOR Kaiden REHMAN - [place] POCT Performing Organization Address City/[facility] Phon e Number MISYS documented in this encounter Visit Diagnoses Not on filedocumented in this encounter Additional Health Concerns Infection Onset Date Last Indicated Resolved Time MRSA-Contact IsolationComment: 0 04/26/2021 11:03 AM WATER TREATMENT PLANT OPERATOR Infection erroneous documented as of this encounter
--- OUTSIDE RECORDS SUMMARY | 2022-03-22 14:00 | XMS_ITS | Encounter Summary ---
:1960 Author Organization [facility] Address [address] [place] [address] Care Team Providers Name Role Phone Unavailable Primary Care Provider Unavailable Encounter Details Date Type Department Care Team Description 03/17/2009 Results Only [facility] Liam Traylor MD Hospital Results [address] [place], [place] [address] (Wo rk) Social History [...] Name Priority Date/Time Associated Diagnosis Comme [facility] CHEST ONE VIEW Routine 03/17/2009 1:26 PM Resu lts for this SPORTS PHYSICAL THERAPIST procedure are i n the results section. documented in this encounter Results CHEST X-RAY 1 VW (03/17/2009 1:26 PM SPORTS PHYSICAL THERAPIST) Anatomical Region Laterality Modality Other Specimen (Source) Anatomical Collection Method Collection Time Re ceived Time Location / / Volume Laterality 03/17/2009 1:26 PM SPORTS PHYSICAL THERAPIST Impressions 03/18/2009 5:29 PM SPORTS PHYSICAL THERAPIST CHEST ONE VIEW PORTABLE ??March 17 009 [...] Time MRSA-Contact IsolationComment: 0 04/26/2021 11:03 AM SPORTS PHYSICAL THERAPIST Infection erroneous documented as of this encounter
--- OUTSIDE RECORDS SUMMARY | 2022-03-22 14:00 | XMS_ITS | Encounter Summary ---
:1960 Author Organization [facility] Address [address] [place] [id number] Care Team Providers Name Role Phone Unavailable [...] 03/13/2009 9:41 PM Results f or this SENIOR INTERNAL AUDITOR procedure are i n the results section . documented in this encounter Results EKG 12 LEAD (03/13/2009 9:41 PM SENIOR INTERNAL AUDITOR) Component Value Ref Range Test Analysis Performed Pathologis t Method Time At Signature Ventricular Rate 122 BPM RADIOLOGY RESULTS Atrial Rate 122 BPM RADIOLOGY RESULTS MA Interval 134 ms RADIOLOGY RESULTS QRS Duration 96 ms RADIOLOGY RESULTS QT 290 ms RADIOLOGY RESULTS QTc 413 ms RADIOLOGY RESULTS P [place] 43 degrees RADIOLOGY RESULTS R AXIS 1 degrees RADIOLOGY RESULTS T [place] -2 degrees RADIOLOGY RESULTS Interpretation AGE AND GENDER SPECIFIC ECG ANALYSIS RADIOLOGY ECG Sinus tachycardia RESULTS Otherwise normal ECG Unconfirmed report - interpretation of this ECG is compute r generated - see medical record for final interpretation Specimen Anatomical Collection Method Collection Time Receive d Time (Source) Location / / Volume Laterality 03/13/2009 9:41 PM 9 SENIOR INTERNAL AUDITOR 10:45 AM SENIOR INTERNAL AUDITOR Transcripton Interface ECG ORDERABLES Performing Organization Address City/State/ZIP Code Phon e Number RADIOLOGY RESULTS documented in this encounter Visit Diagnoses Not on filedocumented in this encounter Additional Health Concerns Infection Onset Date Last Indicated Resolved Time MRSA-Contact IsolationComment: 0 04/26/2021 11:03 AM SENIOR INTERNAL AUDITOR Infection erroneous documented as of this encounter
--- OUTSIDE RECORDS SUMMARY | 2022-03-22 14:00 | XMS_ITS | Encounter Summary ---
:1960 Author Organization [facility] Address [address] [place] [id number] Care Team Providers Name Role Phone Unavailable Primary Care Provider Unavailable Encounter Details Date Type Department Care Team Description 03/15/2009 Results Only [facility] Liam Traylor MD Hospital Results [address] [place], [place] [address] (Wo rk) Social History [...] Procedure Name Priority Date/Time Associated Diagnosis Comme [facility] CHEST ONE VIEW Routine 03/15/2009 8:38 AM Resu lts for this MID WIFE procedure are i n the results section. documented in this encounter Results CHEST X-RAY 1 VW (03/15/2009 8:38 AM MID WIFE) Anatomical Region Laterality Modality Other Specimen (Source) Anatomical Collection Method Collection Time Re ceived Time Location / / Volume Laterality 03/15/2009 8:38 AM MID WIFE Impressions 03/15/2009 12:28 PM MID WIFE CHEST, ONE VIEW PORTABLE ?? Mar 15, [...] Time MRSA-Contact IsolationComment: 0 04/26/2021 11:03 AM MID WIFE Infection erroneous documented as of this encounter
--- OUTSIDE RECORDS SUMMARY | 2022-03-22 14:00 | XMS_ITS | Encounter Summary ---
:1960 Author Organization [facility] Address [address] [place] [id number] Care Team Providers Name Role Phone Unavailable Primary Care Provider Unavailable Encounter Details Date Type Department Care Team Description 03/15/2009 Historic Results [facility] MD Hospitalists [address] [place], [place] [address] (Wo rk) Social History [...] 03/15/2009 7:49 PM Resul ts for this UNEMPLOYMENT EXAMINER procedure are i n the results section. GLUCOSE BY METER Routine 03/15/2009 4:01 PM Resul ts for this UNEMPLOYMENT EXAMINER procedure are i n the results section. GLUCOSE BY METER Routine 03/15/2009 11:58 AM Resu lts for this UNEMPLOYMENT EXAMINER procedure are i n the results section. BLOOD GAS ARTERIAL Routine 03/15/2009 8:45 AM Res ults for this AND OXYHGB UNEMPLOYMENT EXAMINER procedure are i n the results section. PHOSPHORUS Routine 03/15/2009 5:30 AM Results f or this UNEMPLOYMENT EXAMINER procedure are i n the results section. MAGNESIUM Routine 03/15/2009 5:30 AM Results f or this UNEMPLOYMENT EXAMINER procedure are i n the results section. CK TOTAL Routine 03/15/2009 5:30 AM Results f or this UNEMPLOYMENT EXAMINER procedure are i n the results section. BASIC METABOLIC Routine 03/15/2009 5:30 AM Result s for this PANEL UNEMPLOYMENT EXAMINER procedure are i n the results section. CBC WITH PLATELETS Routine 03/15/2009 5:30 AM Res ults for this UNEMPLOYMENT EXAMINER procedure are i n the results section. BLOOD GAS ARTERIAL Routine 03/15/2009 4:20 AM Res ults for this AND OXYHGB UNEMPLOYMENT EXAMINER procedure are i n the results section. GLUCOSE BY METER Routine 03/15/2009 4:01 AM Resul ts for this UNEMPLOYMENT EXAMINER procedure are i n the results section. documented in this encounter Results (ABNORMAL) Glucose by meter (03/15/2009 7:49 PM UNEMPLOYMENT EXAMINER) athologist Signature Glucose 160 (H) 60 - 99 MISYS mg/dL Specimen Anatomical Collection Method Collection Time Receive d Time (Source) Location / / Volume Laterality 03/15/2009 7:49 PM 9 8:20 UNEMPLOYMENT EXAMINER PM UNEMPLOYMENT EXAMINER Kaiden REHMAN - [place] POCT Performing Organization Address [facility] Phon e Number MISYS (ABNORMAL) Glucose by meter (03/15/2009 4:01 PM UNEMPLOYMENT EXAMINER) athologist Signature Glucose 159 (H) 60 - 99 MISYS mg/dL Specimen Anatomical Collection Method Collection Time Receive d Time (Source) Location / / Volume Laterality 03/15/2009 4:01 PM 9 4:25 UNEMPLOYMENT EXAMINER PM UNEMPLOYMENT EXAMINER Kaiden REHMAN - [place] POCT Performing Organization Address [facility] Phon e Number MISYS (ABNORMAL) Glucose by meter (03/15/2009 11:58 AM UNEMPLOYMENT EXAMINER) athologist Signature Glucose 127 (H) 60 - 99 MISYS mg/dL Specimen Anatomical Collection Method Collection Time Receive d Time (Source) Location / / Volume Laterality 03/15/2009 11:58 03/15/2009 AM UNEMPLOYMENT EXAMINER 12:20 PM UNEMPLOYMENT EXAMINER Kaiden MOONEY POCT Performing Organization Address [facility] Phon e Number MISYS (ABNORMAL) Blood gas arterial and oxyhgb (03/15/2009 8:45 AM UNEMPLOYMENT EXAMINER) [facility] Signature pH Arterial 7.44 [...] Volume Laterality 03/15/2009 8:45 AM 9 5:04 UNEMPLOYMENT EXAMINER AM UNEMPLOYMENT EXAMINER Provider Unknown LAB - BLOOD ORDERABLES Performing Organization Address City/State/ZIP Code Phon e Number MISYS (ABNORMAL) Basic metabolic panel (03/15/2009 5:30 AM UNEMPLOYMENT EXAMINER) Analysis Performed At [facility] Time Signature Sodium 134 133 - [...] / Volume Laterality 03/15/2009 5:30 AM 9 UNEMPLOYMENT EXAMINER Brian Turner MD LAB - BLOOD ORDERABLES Performing Organization Address City/State/ZIP Code Phon e Number MISYS (ABNORMAL) CBC with platelets (03/15/2009 5:30 AM UNEMPLOYMENT EXAMINER) Analysis Performed At [facility] Time Signature MCV 94 78 - [...] / Volume Laterality 03/15/2009 5:30 AM 9 UNEMPLOYMENT EXAMINER Brian Turner MD LAB - BLOOD ORDERABLES Performing Organization Address City/State/ZIP Code Phon e Number MISYS (ABNORMAL) CK total (03/15/2009 5:30 AM UNEMPLOYMENT EXAMINER) P athologist Signature CK Total 705 (H) 45 - 300 MISYS U/L Specimen (Source) Anatomical Collection Method Collection Time Re ceived Time Location / / Volume Laterality 03/15/2009 5:30 AM 9 UNEMPLOYMENT EXAMINER Brian Turner MD LAB - BLOOD ORDERABLES Performing Organization Address City/[facility]/ZIP Code Phon e Number MISYS Magnesium (03/15/2009 5:30 AM UNEMPLOYMENT EXAMINER) athologist Signature Magnesium 1.8 1.6 - 2.3 MISYS mg/dL Specimen (Source) Anatomical Collection Method Collection Time Re ceived Time Location / / Volume Laterality 03/15/2009 5:30 AM 9 UNEMPLOYMENT EXAMINER Brian Turner MD LAB - BLOOD ORDERABLES Performing Organization Address City/State/ZIP Code Phon e Number MISYS Phosphorus (03/15/2009 5:30 AM UNEMPLOYMENT EXAMINER) P athologist Signature Phosphorus 4.4 2.5 - 4.5 MISYS mg/dL Specimen (Source) Anatomical Collection Method Collection Time Re ceived Time Location / / Volume Laterality 03/15/2009 5:30 AM 9 UNEMPLOYMENT EXAMINER Brian Turner MD LAB - BLOOD ORDERABLES Performing Organization Address City/State/ZIP Code Phon e Number MISYS (ABNORMAL) Blood gas arterial and oxyhgb (03/15/2009 4:20 AM UNEMPLOYMENT EXAMINER) Patholo gist Method Time Signature pH Arterial [...] / Volume Laterality 03/15/2009 4:20 AM 9 UNEMPLOYMENT EXAMINER Brian Turner MD LAB - BLOOD ORDERABLES Performing Organization Address City/State/ZIP Code Phon e Number MISYS (ABNORMAL) Glucose by meter (03/15/2009 4:01 AM UNEMPLOYMENT EXAMINER) P athologist Signature Glucose 173 (H) 60 - 99 MISYS mg/dL Specimen Anatomical Collection Method Collection Time Receive d Time (Source) Location / / Volume Laterality 03/15/2009 4:01 AM 9 5:15 UNEMPLOYMENT EXAMINER AM UNEMPLOYMENT EXAMINER Kaiden Carpenter MD LAB - BEAKER POCT Performing Organization Address City/State/ZIP Code Phon e Number MISYS documented in this encounter Visit Diagnoses Not on filedocumented in this encounter Additional Health Concerns Infection Onset Date Last Indicated Resolved Time MRSA-Contact IsolationComment: 0 04/26/2021 11:03 AM UNEMPLOYMENT EXAMINER Infection erroneous documented as of this encounter
--- OUTSIDE RECORDS SUMMARY | 2022-03-22 14:00 | XMS_ITS | Encounter Summary ---
:1960 Author Organization [facility] Address [address] [place] [address] Care Team Providers Name Role Phone Unavailable [...] 03/14/2009 2:09 AM Results f or this BATCHER OPERATOR procedure are i n the results section . documented in this encounter Results EKG 12 LEAD (03/14/2009 2:09 AM BATCHER OPERATOR) Component Value Ref Range Test Analysis Performed Pathologis t Method Time At Signature Ventricular Rate 126 BPM RADIOLOGY RESULTS Atrial Rate 126 BPM RADIOLOGY RESULTS DE Interval 148 ms RADIOLOGY RESULTS QRS Duration 104 ms RADIOLOGY RESULTS QT 282 ms RADIOLOGY RESULTS QTc 408 ms RADIOLOGY RESULTS P [place] 44 degrees RADIOLOGY RESULTS R AXIS -3 degrees RADIOLOGY RESULTS T [place] 3 degrees RADIOLOGY RESULTS Interpretation AGE AND GENDER SPECIFIC ECG ANALYSIS RADIOLOGY ECG Sinus tachycardia RESULTS Otherwise normal ECG Unconfirmed report - interpretation of this ECG is compute r generated - see medical record for final interpretation Specimen Anatomical Collection Method Collection Time Receive d Time (Source) Location / / Volume Laterality 03/14/2009 2:09 AM 9 BATCHER OPERATOR 10:47 AM BATCHER OPERATOR Transcripton Interface ECG ORDERABLES Performing Organization Address City/State/ZIP Code Phon e Number RADIOLOGY RESULTS documented in this encounter Visit Diagnoses Not on filedocumented in this encounter Additional Health Concerns Infection Onset Date Last Indicated Resolved Time MRSA-Contact IsolationComment: 0 04/26/2021 11:03 AM BATCHER OPERATOR Infection erroneous documented as of this encounter
--- OUTSIDE RECORDS SUMMARY | 2022-03-22 14:00 | XMS_ITS | Encounter Summary ---
:1960 Author Organization [facility] Address [address] [place] [address] Care Team Providers Name Role Phone Unavailable [...] as of this encounter Progress Notes Interface, Self Propelled Mining Machine Operator - 07/10/2010 3:24 PM CDT SWS D: SW received order to assist pt. w/ discharge planning. A: Pt. is currently on a vent and is not arousable. P: SW will continue to follow and meet w/ pt. once he is awake and able to be interviewed. [Signature] Author: Mai Orosco (SUPERVISOR PIG MACHINE) [Signed 10:30] Interface, Self Propelled Mining Machine Operator - 07/10/2010 3:24 PM CDT Tube Feeding Consult: Medications reviewed for drug/nutrient interaction and administration by feeding tube. No changes recommended at this time. [Signature] Author: Brian Hoyos (Pharmacist) [Signed 10:44] Interface, Self Propelled Mining Machine Operator - 07/10/2010 3:23 PM CDT Pt remains intubated on ventilator. cmv 8/650/30%/+5, wean attempted today on PS +7/+5. weaning failed due to increased RR and decreased Vt and sats. Sx thick yellow sputum. Oral sx bloody. Sats 98-100%, HR 62-74, [Signature] Author: Eloina Andrews ([facility]) [Signed 13:20] Interface, Self Propelled Mining Machine Operator - 07/10/2010 3:23 PM CDT Nutrition Assessment - Reason for assessment Tube feeding Anthropometrics - Height: 70 - Admission weight: 86kg - IBW ([place] body 75.5kg weight): - % IBW ([place] body 114% weight): - Dosing weight: 86kg [...] on: Admit wt: 86kg - Energy needs: 9126-9755 kcal (25-30kcal/kg) - Protein needs: 50-70g pro (.6-.8g/kg) - renal failure, no further dialysis planned at this time - Fluid needs: 5318-3198 mL fluid (25-30mL/kg) Nutrition Diagnosis - Nutrition [...] Time MRSA-Contact IsolationComment: 0 04/26/2021 11:03 AM FILM LABORATORY TECHNICIAN Infection erroneous documented as of this encounter
--- OUTSIDE RECORDS SUMMARY | 2022-03-22 14:00 | XMS_ITS | Encounter Summary ---
:1960 Author Organization [employer] Address [address] [place] [id number] Care Team Providers Name Role Phone Unavailable Primary Care Provider Unavailable Encounter Details Date Type Department Care Team Description 03/14/[address] [facility]Gianni Church MD Hospitalists [address] [place], [place] [id number] (Wo rk) Social History [...] 03/14/2009 8:03 PM Resul ts for this B[employer] VA[employer] CUSTODIAN procedure are i n the results section. GLUCOSE BY METER Routine 03/14/2009 3:54 PM Resul ts for this [employer] VA[employer] CUSTODIAN procedure are i n the results section. BLOOD GAS ARTERIAL AND Routine 03/14/2009 11:25 R esults for this OXYHGB AM [employer] VAULT CUSTODIAN procedure are i n the results section. CK TOTAL Timed 03/14/2009 10:50 Results for this AM [employer] C[employer]ODIAN procedure are i n the results section. BASIC METABOLIC PANEL Timed 03/14/2009 10:50 Re sults for this AM [employer] CUSTODIAN procedure are i n the results section. FRACTIONAL EXCRETION OF STAT 03/14/2009 9:00 AM Results for this SODIUM [employer]ODIAN procedure are i n the results section. GLUCOSE BY METER Routine 03/14/2009 7:51 AM Resul ts for this [employer]ODIAN procedure are i n the results section. BLOOD GAS ARTERIAL AND STAT 03/14/2009 5:05 AM Results for this OXYHGB [employer] C[employer]ODIAN procedure are i n the results section. SEND OUTS MISC TEST Routine 03/14/2009 4:45 AM Re sults for this [employer]ODIAN procedure are i n the results section. SEND OUTS MISC TEST Routine 03/14/2009 4:45 AM Re sults for this [employer] CUSTODIAN procedure are i n the results section. STAPH AUREUS Routine 03/14/2009 4:40 AM Results f or this METHICILLIN RESISTANT [employer] CUSTODIAN proced ure are in PCR (RW) the results section. REFERRAL SENSITIVITY Routine 03/14/2009 4:40 AM R esults for this [employer] C[employer]ODIAN procedure are i n the results section. SALICYLATE LEVEL STAT 03/14/2009 4:30 AM Resul ts for this [employer]ODIAN procedure are i n the results section. PHOSPHORUS Routine 03/14/2009 4:30 AM Results f or this [employer]ODIAN procedure are i n the results section. MAGNESIUM Routine 03/14/2009 4:30 AM Results f or this [employer]ODIAN procedure are i n the results section. COMPREHENSIVE METABOLIC Routine 03/14/2009 4:30 AM Results for this PANEL [employer]IAN procedure are i n the results section. ACETAMINOPHEN LEVEL STAT 03/14/2009 4:30 AM Re sults for this [employer] CUSTODIAN procedure are i n the results section. GLUCOSE BY METER Routine 03/14/2009 4:29 AM Resul ts for this [employer]ODIAN procedure are i n the results section. BLOOD GAS ARTERIAL AND Routine 03/14/2009 2:50 AM Results for this OXYHGB [employer]ODIAN procedure are i n the results section. TROPONIN I Routine 03/14/2009 1:49 AM Results f or this [employer]ODIAN procedure are i n the results section. INR Routine 03/14/2009 1:49 AM Results f or this [employer]ODIAN procedure are i n the results section. POTASSIUM Routine 03/14/2009 1:49 AM Results f or this [employer]ODIAN procedure are i n the results section. PARTIAL THROMBOPLASTIN Routine 03/14/2009 1:49 AM Results for this TIME [employer]ODIAN procedure are i n the results section. MAGNESIUM Routine 03/14/2009 1:49 AM Results f or this [employer]ODIAN procedure are i n the results section. BASIC METABOLIC PANEL Routine 03/14/2009 1:49 AM Results for this [employer]ODIAN procedure are i n the results section. BLOOD GAS ARTERIAL AND Routine 03/14/2009 12:32 R esults for this OXYHGB AM [employer]ODIAN procedure are i n the results section. ROUTINE UA WITH STAT 03/14/2009 12:24 Results for this MICROSCOPIC AM [employer]ODIAN procedure are i n the results section. documented in this encounter Results (ABNORMAL) Glucose by meter (03/14/2009 8:03 PM B[employer] VAULT CUSTODIAN) athologist Signature Glucose 162 (H) 60 - 99 MISYS mg/dL Specimen Anatomical Collection Method Collection Time Receive d Time (Source) Location / / Volume Laterality 03/14/2009 8:03 PM 9 8:20 [employer]ODIAN PM B[employer] VAULT CUSTODIAN Kaiden REHMAN - BEAKER POCT Performing Organization Address City/State/[facility] Code Phon e Number MISYS (ABNORMAL) Glucose by meter (03/14/2009 3:54 PM B[employer] VA[employer] CUSTODIAN) athologist Signature Glucose 152 (H) 60 - 99 MISYS mg/dL Specimen Anatomical Collection Method Collection Time Receive d Time (Source) Location / / Volume Laterality 03/14/2009 3:54 PM 9 4:00 B[employer] C[employer]ODIAN PM [employer] VAULT CUSTODIAN Kaiden REHMAN - JESICA POCT Performing Organization Address City/[facility] Code Phon e Number MISYS (ABNORMAL) Blood gas arterial and oxyhgb (03/14/2009 11:25 AM B[employer] VAULT CUSTODIAN) [facility] gist Method Time Signature pH Arterial [...] Volume Laterality 03/14/2009 11:25 03/14/2009 8:51 AM B[employer] VAULT CUSTODIAN AM B[employer] VAULT CUSTODIAN Brian Turner MD LAB - BLOOD ORDERABLES Performing Organization Address City/[facility] Phon e Number MISYS (ABNORMAL) CK total (03/14/2009 10:50 AM B[employer] VAULT CUSTODIAN) athologist Signature CK Total 1564 (HH) 45 - 300 MISYS U/L Comment: Critical Value called to and read back jessica MEDEIROS IN ICU AT 1133 ON 03/14/09 JAB Specimen Anatomical Collection Method Collection Time Receive d Time (Source) Location / / Volume Laterality 03/14/2009 10:50 03/14/2009 AM [employer] VA[employer] CUSTODIAN 11:00 AM [employer] VAULT CUSTODIAN Brian Turner MD LAB - BLOOD ORDERABLES Performing Organization Address City/State/ZIP Code Phon e Number MISYS (ABNORMAL) Basic metabolic panel (03/14/2009 10:50 AM B[employer] VAULT CUSTODIAN) athologist Signature Sodium 136 133 - 144 [...] / Volume Laterality 03/14/2009 10:50 03/14/2009 AM [employer] VAULT CUSTODIAN 11:00 AM B[employer] VAULT CUSTODIAN Brian Turner MD LAB - BLOOD ORDERABLES Performing Organization Address City/State/ZIP Code Phon e Number MISYS Fractional excretion of sodium (03/14/2009 9:00 AM B[employer] VAULT CUSTODIAN) P athologist Signature Creatinine Urine 226 mg/dL [...] Volume Laterality 03/14/2009 9:00 AM 9 2:59 [employer] CUSTODIAN AM [employer] VA[employer] CUSTODIAN Richard Shirley MD LAB - URINE ORDERABLES Performing Organization Address City/State/ZIP Code Phon e Number MISYS (ABNORMAL) Glucose by meter (03/14/2009 7:51 AM B[employer] VAULT CUSTODIAN) athologist Signature Glucose 151 (H) 60 - 99 MISYS mg/dL Specimen Anatomical Collection Method Collection Time Receive d Time (Source) Location / / Volume Laterality 03/14/2009 7:51 AM 9 [employer]ODIAN 12:50 PM [employer] VA[employer] CUSTODIAN Kaiden Carpenter MD LAB - BEAKER POCT Performing Organization Address City/State/ZIP Code Phon e Number MISYS (ABNORMAL) Blood gas arterial and oxyhgb (03/14/2009 5:05 AM B[employer] VAULT CUSTODIAN) P athologist Signature pH Arterial 7.21 (L) [...] Volume Laterality 03/14/2009 5:05 AM 9 5:09 [employer] CUSTODIAN AM B[employer] VAULT CUSTODIAN Kaiden Carpenter MD LAB - BLOOD ORDERABLES Performing Organization Address [facility] Code Phon e Number MISYS Send outs misc test (03/14/2009 4:45 AM BANK VAULT CUSTODIAN) [facility] Method Time Signature Test Name VOLATILES MISYS SCREEN Send Outs Whole Blood MISYS Misc Test Specimen Result (Note) MISYS Comment: VOLATILES SCREEN: POSITIVE ACETONE: POSITIVE Volatiles screen includes: acetone, ethy l alcohol, isopropyl alcohol, and methyl alcohol. Normal Range for Send Outs Misc Test Negative MISYS Comment: Assayed at [facility] ,[employer] [address] [address] [place] [address] Specimen Anatomical Collection Method Collection Time Receive d Time (Source) Location / / Volume Laterality 03/14/2009 4:45 AM 9 5:01 B[employer] VAULT CUSTODIAN AM B[employer] VAULT CUSTODIAN Kaiden Carpenter MD LAB - BLOOD ORDERABLES Performing Organization Address [facility] Phon e Number MISYS Send outs misc test (03/14/2009 4:45 AM BANK VAULT CUSTODIAN) [facility] Method Time Signature Test Name ETHYLENE MISYS GLYCOL Send Outs Misc Whole Blood MISYS Test Specimen Result Negative MISYS Normal Range Negative MISYS for Send Outs Misc Test Comment: Assayed at [facility] [place] [id number] Specimen Anatomical Collection Method Collection Time Receive d Time (Source) Location / / Volume Laterality 03/14/2009 4:45 AM 9 5:05 [employer] VAULT CUSTODIAN AM B[employer] VAULT CUSTODIAN Kaiden Carpenter MD LAB - BLOOD ORDERABLES Performing Organization Address [facility] Phon e Number MISYS Staph aureus methicillin resistant PCR (03/14/2009 4:40 AM B[employer] VAULT CUSTODIAN) [facility] Method Time Signature Specimen Nares MISYS [...] Volume Laterality 03/14/2009 4:40 AM 9 1:10 [employer] CUSTODIAN AM B[employer] VAULT CUSTODIAN Kaiden Carpenter MD LAB - MICRO GENERAL ORDERABL ES Performing Organization Address City/State/ZIP Code Phon e Number MISYS Referral sensitivity (03/14/2009 4:40 AM BANK VAULT CUSTODIAN) Component Value Ref Test Analysis Performed Pathologis t Range Method Time At Signature Specimen Nares MISYS Description Culture Micro No MRSA isolated: MISYS susceptibilities not available. PCR assay is more sensitive Comment: than culture. Micro Report Status FINAL 03/20/2009 MIS YS Specimen Anatomical Collection Method Collection Time Receive d Time (Source) Location / / Volume Laterality 03/14/2009 4:40 AM 9 3:03 B[employer] VA[employer] CUSTODIAN PM B[employer] VAULT CUSTODIAN Kaiden Carpenter MD LAB - MICRO GENERAL ORDERABL ES Performing Organization Address City/State/ZIP Code Phon e Number MISYS (ABNORMAL) Comprehensive metabolic panel (03/14/2009 4:30 AM BANK VAULT CUSTODIAN) P athologist Signature Sodium 127 (L) 133 [...] Volume Laterality 03/14/2009 4:30 AM 9 2:57 B[employer] VAULT CUSTODIAN AM B[employer] VAULT CUSTODIAN Richard Shirley MD LAB - BLOOD ORDERABLES Performing Organization Address [facility] Phon e Number MISYS (ABNORMAL) Phosphorus (03/14/2009 4:30 AM B[employer] VAULT CUSTODIAN) P athologist Signature Phosphorus 8.4 (H) 2.5 - 4.5 MISYS mg/dL Specimen Anatomical Collection Method Collection Time Receive d Time (Source) Location / / Volume Laterality 03/14/2009 4:30 AM 9 2:57 B[employer] VA[employer] CUSTODIAN AM [employer] VAULT CUSTODIAN Richard Shirley MD LAB - BLOOD ORDERABLES Performing Organization Address [facility] Phon e Number MISYS Magnesium (03/14/2009 4:30 AM B[employer] VAULT CUSTODIAN) athologist Signature Magnesium 2.1 1.6 - 2.3 MISYS mg/dL Specimen Anatomical Collection Method Collection Time Receive d Time (Source) Location / / Volume Laterality 03/14/2009 4:30 AM 9 2:57 [employer] VAULT CUSTODIAN AM B[employer] VAULT CUSTODIAN Richard Shirley MD LAB - BLOOD ORDERABLES Performing Organization Address [facility] Code Phon e Number MISYS Acetaminophen level (03/14/2009 4:30 AM BANK VAULT CUSTODIAN) Analysis Performed At Patho logist Time Signature Acetaminophen <10 mg/L MISYS Level Specimen Anatomical Collection Method Collection Time Receive d Time (Source) Location / / Volume Laterality 03/14/2009 4:30 AM 9 2:59 B[employer] VA[employer] CUSTODIAN AM B[employer] VAULT CUSTODIAN Richard Shirley MD LAB - BLOOD ORDERABLES Performing Organization Address [facility] Phon e Number MISYS Salicylate level (03/14/2009 4:30 AM BANK VAULT CUSTODIAN) P athologist Signature Salicylate Level <1 mg/dL MISYS Comment: Therapeutic: ?<20 Anti inflammatory: ??15-30 Specimen Anatomical Collection Method Collection Time Receive d Time (Source) Location / / Volume Laterality 03/14/2009 4:30 AM 9 2:59 B[employer] VAULT CUSTODIAN AM B[employer] VAULT CUSTODIAN Richard Shirley MD LAB - BLOOD ORDERABLES Performing Organization Address City/[facility] Code Phon e Number MISYS (ABNORMAL) Glucose by meter (03/14/2009 4:29 AM BANK VAULT CUSTODIAN) P athologist Signature Glucose 156 (H) 60 - 99 MISYS mg/dL Specimen Anatomical Collection Method Collection Time Receive d Time (Source) Location / / Volume Laterality 03/14/2009 4:29 AM 9 [employer] VAULT CUSTODIAN 12:50 PM B[employer] VAULT CUSTODIAN Kaiden Carpenter MD LAB - BEAKER POCT Performing Organization Address City/[facility] Code Phon e Number MISYS (ABNORMAL) Blood gas arterial and oxyhgb (03/14/2009 2:50 AM BANK VAULT CUSTODIAN) Patholo gist Method Time Signature pH Arterial [...] Volume Laterality 03/14/2009 2:50 AM 9 2:38 B[employer] VAULT CUSTODIAN AM B[employer] VAULT CUSTODIAN Haroldo Arnold MD LAB - BLOOD ORDERABLES Performing Organization Address City/[facility]/ZIP Code Phon e Number MISYS (ABNORMAL) INR (03/14/2009 1:49 AM B[employer] VAULT CUSTODIAN) athologist Signature INR 1.19 (H) 0.86 - 1.14 MISYS Specimen Anatomical Collection Method Collection Time Receive d Time (Source) Location / / Volume Laterality 03/14/2009 1:49 AM 9 2:00 B[employer] VAULT CUSTODIAN AM BANK VAULT CUSTODIAN [facility] LAB - BLOOD ORDERABLES Performing Organization Address City/State/[facility] Phon e Number MISYS (ABNORMAL) Potassium (03/14/2009 1:49 AM BANK VAULT CUSTODIAN) athologist Signature Potassium 6.0 (H) 3.4 - 5.3 MISYS mmol/L Specimen Anatomical Collection Method Collection Time Receive d Time (Source) Location / / Volume Laterality 03/14/2009 1:49 AM 9 2:00 B[employer] VAULT CUSTODIAN AM B[employer] VAULT CUSTODIAN [facility] LAB - BLOOD ORDERABLES Performing Organization Address [facility] Phon e Number MISYS Partial thromboplastin time (03/14/2009 1:49 AM BANK VAULT CUSTODIAN) athologist Signature PTT 32 22 - 37 sec MISYS Specimen Anatomical Collection Method Collection Time Receive d Time (Source) Location / / Volume Laterality 03/14/2009 1:49 AM 9 2:00 B[employer] VAULT CUSTODIAN AM B[employer] VAULT CUSTODIAN Authorizing Provider Result [facility] LAB - BLOOD ORDERABLES Performing Organization Address [facility] Phon e Number MISYS (ABNORMAL) Troponin I (03/14/2009 1:49 AM BANK VAULT CUSTODIAN) Analysis Performed At Patho logist Time Signature Troponin I ES 0.163 (HH) 0.000 - MISYS 0.034 ug/L Comment: Critical Value called to and read back jessica SLATER (ICU) ON 03.14.09 AT 0246 BY Specimen Anatomical Collection Method Collection Time Receive d Time (Source) Location / / Volume Laterality 03/14/2009 1:49 AM 9 2:19 B[employer] VAULT CUSTODIAN AM B[employer] VAULT CUSTODIAN Authorizing Provider Result [facility] LAB - BLOOD ORDERABLES Performing Organization Address [facility] Phon e Number MISYS (ABNORMAL) Basic metabolic panel (03/14/2009 1:49 AM BANK VAULT CUSTODIAN) Patholo gist Method Time Signature Sodium 128 [...] Volume Laterality 03/14/2009 1:49 AM 9 2:20 B[employer] VAULT CUSTODIAN AM B[employer] VAULT CUSTODIAN [facility] LAB - BLOOD ORDERABLES Performing Organization Address City/[facility] Code Phon e Number MISYS Magnesium (03/14/2009 1:49 AM B[employer] VAULT CUSTODIAN) athologist Signature Magnesium 2.3 1.6 - 2.3 MISYS mg/dL Specimen Anatomical Collection Method Collection Time Receive d Time (Source) Location / / Volume Laterality 03/14/2009 1:49 AM 9 2:20 B[employer] VAULT CUSTODIAN AM B[employer] VAULT CUSTODIAN [facility] LAB - BLOOD ORDERABLES Performing Organization Address City/[facility]/ZIP Code Phon e Number MISYS (ABNORMAL) Blood gas arterial and oxyhgb (03/14/2009 12:32 AM BANK VAULT CUSTODIAN) [facility] gist Method Time Signature pH Arterial [...] / Volume Laterality 03/14/2009 12:32 03/14/2009 AM B[employer] VAULT CUSTODIAN 12:34 AM B[employer] VAULT CUSTODIAN Haroldo Arnold MD LAB - BLOOD ORDERABLES Performing Organization Address City/State/ZIP [facility] Phon e Number MISYS (ABNORMAL) Routine UA with microscopic (03/14/2009 12:24 AM BANK VAULT CUSTODIAN) Component Value Ref Test Analysis Performed At [facility] Range Method Time Signature Source Catheterized MISYS Urine Color Urine Straw MISYS Appearance Urine Slightly Cloudy MISYS Glucose Urine Negative NEG MISYS mg/dL Bilirubin Urine Negative NEG MISYS Ketones Urine 5 (A) NEG MISYS mg/dL Specific [place] 1.017 1.003 - MISYS Urine 1.035 Blood [...] / Volume Laterality 03/14/2009 12:24 03/14/2009 AM B[employer] VAULT CUSTODIAN 12:25 AM B[employer] VAULT CUSTODIAN Haroldo Arnold MD LAB - URINE ORDERABLES Performing Organization Address [facility] Phon e Number MISYS documented in this encounter Visit Diagnoses Not on filedocumented in this encounter Additional Health Concerns Infection Onset Date Last Indicated Resolved Time MRSA-Contact IsolationComment: 0 04/26/2021 11:03 AM BANK VAULT CUSTODIAN Infection erroneous documented as of this encounter
--- OUTSIDE RECORDS SUMMARY | 2022-03-22 14:00 | XMS_ITS | Encounter Summary ---
:1960 Author Organization [place] Address [address] [place] [address] Care Team Providers Name Role Phone Unavailable Primary Care Provider Unavailable Encounter Details Date Type Department Care Team Description 03/13/2009 Historic Results INTERFACED REPORT [facility] Social History Tobacco Use Types [...] STAT 03/13/2009 11:03 PM Results for this SCREW SUPERVISOR procedure are i n the results section. N TERMINAL PRO BNP STAT 03/13/2009 11:03 PM Re sults for this OUTPATIENT SCREW SUPERVISOR procedure are i n the results section. MYOGLOBIN Routine 03/13/2009 11:03 PM Results for this SCREW SUPERVISOR procedure are i n the results section. MAGNESIUM STAT 03/13/2009 11:03 PM Results for this SCREW SUPERVISOR procedure are i n the results section. HEPATIC FUNCTION STAT 03/13/2009 11:03 PM Resu lts for this PANEL SCREW SUPERVISOR procedure are i n the results section. CK TOTAL Routine 03/13/2009 11:03 PM Results for this SCREW SUPERVISOR procedure are i n the results section. ETHYL ALCOHOL LEVEL STAT 03/13/2009 11:03 PM R esults for this SCREW SUPERVISOR procedure are i n the results section. BASIC METABOLIC STAT 03/13/2009 11:03 PM Resul ts for this PANEL SCREW SUPERVISOR procedure are i n the results section. TROPONIN I STAT 03/13/2009 8:58 PM Results f or this SCREW SUPERVISOR procedure are i n the results section. NT PROBNP INPATIENT Routine 03/13/2009 8:58 PM Re sults for this SCREW SUPERVISOR procedure are i n the results section. CBC WITH PLATELETS STAT 03/13/2009 8:58 PM Res ults for this SCREW SUPERVISOR procedure are i n the results section. documented in this encounter Results (ABNORMAL) Hepatic panel (03/13/2009 11:03 PM SCREW SUPERVISOR) Analysis Performed At Patho logist Time [...] / Volume Laterality 03/13/2009 11:03 03/13/2009 PM SCREW SUPERVISOR 11:09 PM SCREW SUPERVISOR [facility] LAB - BLOOD ORDERABLES Performing Organization Address City/State/ZIP Code Phon e Number MISYS (ABNORMAL) Basic metabolic panel (03/13/2009 11:03 PM SCREW SUPERVISOR) P athologist Signature Sodium 127 (L) 133 [...] to DIGNA ERB @ 2352 ON [facility] Creatinine 18.05 (H) 0.66 - 1.25 mg/dL MISYS Comment: New IDMS-traceable calibration ??rosalva oliver 08/23/07 Results confirmed by repeat test Specimen grossly lipemic Called to DIGNA VIVIANA @ 1152 ON [id number] BY [facility] GFR Estimate Not Calculated >60 mL/min/1.7m2 MISYS GFR Estimate If Black Not Calculated >60 mL/min/1.7m2 MISYS Calcium 8.4 (L) 8.5 - 10.4 mg/dL MISYS Anion Gap 39 (H) 6 - 17 mmol/L MISYS Specimen Anatomical Collection Method Collection Time Receive d Time (Source) Location / / Volume Laterality 03/13/2009 11:03 03/13/2009 PM SCREW SUPERVISOR 11:09 PM SCREW SUPERVISOR [facility] LAB - BLOOD ORDERABLES Performing Organization Address City/[facility] Phon e Number MISYS Alcohol ethyl (03/13/2009 11:03 PM SCREW SUPERVISOR) athologist Signature Ethanol g/dL <0.01 0.01 g/dL MISYS Specimen Anatomical Collection Method Collection Time Receive d Time (Source) Location / / Volume Laterality 03/13/2009 11:03 03/13/2009 PM SCREW SUPERVISOR 11:09 PM SCREW SUPERVISOR [facility] LAB - BLOOD ORDERABLES Performing Organization Address [facility] Code Phon e Number MISYS (ABNORMAL) Magnesium (03/13/2009 11:03 PM SCREW SUPERVISOR) P athologist Signature Magnesium 1.4 (L) 1.6 - 2.3 MISYS mg/dL Specimen Anatomical Collection Method Collection Time Receive d Time (Source) Location / / Volume Laterality 03/13/2009 11:03 03/13/2009 PM SCREW SUPERVISOR 11:09 PM SCREW SUPERVISOR [facility] LAB - BLOOD ORDERABLES Performing Organization Address City/[facility] Phon e Number MISYS (ABNORMAL) N terminal pro BNP outpatient (03/13/2009 11:03 PM SCREW SUPERVISOR) P athologist Signature N-Terminal Pro 5480 (H) [...] / Volume Laterality 03/13/2009 11:03 03/13/2009 PM SCREW SUPERVISOR 11:09 PM SCREW SUPERVISOR Authorizing Provider Result [facility] [place][Note 2] LAB - BLOOD ORDERABLES Performing Organization Address City/[facility] Phon e Number MISYS (ABNORMAL) Troponin I (03/13/2009 11:03 PM SCREW SUPERVISOR) Analysis Performed At Patho logist Time Signature Troponin I ES 0.189 (HH) 0.000 - MISYS 0.034 ug/L Comment: Called to DIGNA MICHELLE @ 3713 ON [id number] [facility] Specimen Anatomical Collection Method Collection Time Receive d Time (Source) Location / / Volume Laterality 03/13/2009 11:03 03/13/2009 PM SCREW SUPERVISOR 11:09 PM SCREW SUPERVISOR Authorizing Provider Result [facility] [place][Note 2] LAB - BLOOD ORDERABLES Performing Organization Address City/[facility] Phon e Number MISYS (ABNORMAL) CK total (03/13/2009 11:03 PM SCREW SUPERVISOR) P athologist Signature CK Total 2596 (HH) 45 - 300 MISYS U/L Comment: Critical Value called to and read back jessica [email or web address],AR Specimen Anatomical Collection Method Collection Time Receive d Time (Source) Location / / Volume Laterality 03/13/2009 11:03 03/14/2009 1:47 PM SCREW SUPERVISOR AM SCREW SUPERVISOR Authorizing Provider Result [facility] [place][Note 2] LAB - BLOOD ORDERABLES Performing Organization Address City/[facility] Phon e Number MISYS (ABNORMAL) Myoglobin (03/13/2009 11:03 PM SCREW SUPERVISOR) athologist Signature Myoglobin 8032 (H) <120 ug/L MISYS Specimen Anatomical Collection Method Collection Time Receive d Time (Source) Location / / Volume Laterality 03/13/2009 11:03 03/14/2009 1:47 PM SCREW SUPERVISOR AM SCREW SUPERVISOR Authorizing Provider Result [facility] [place][Note 2] LAB - BLOOD ORDERABLES Performing Organization Address City/[facility]/ZIP Code Phon e Number MISYS (ABNORMAL) CBC with platelets (03/13/2009 8:58 PM SCREW SUPERVISOR) [facility] Time Signature MCV 95 78 - [...] Volume Laterality 03/13/2009 8:58 PM 9 9:33 SCREW SUPERVISOR PM SCREW SUPERVISOR Haroldo Arnold MD LAB - BLOOD ORDERABLES Performing Organization Address [facility]/ZIP Code Phon e Number MISYS Troponin I (03/13/2009 8:58 PM SCREW SUPERVISOR) [facility] Method Time Signature Troponin I ES Results 0.000 - MISYS questioned - 0.034 new specimen ug/L has been requested Comment: Charge credited NOTIFIED TO DIGNA ON ERB AT 2220 CORRECTED ON 03/13 AT 2317: PREVIOUSLY R EPORTED 0.218 Critical Value called to and read back by DIGNA (ERB) ON 05.13.08 AT 2224 BY [facility] Specimen Anatomical Collection Method Collection Time Receive d Time (Source) Location / / Volume Laterality 03/13/2009 8:58 PM 9 9:33 SCREW SUPERVISOR PM SCREW SUPERVISOR Haroldo Arnold MD LAB - BLOOD ORDERABLES Performing Organization Address [facility]/ZIP Code Phon e Number MISYS Nt probnp inpatient (03/13/2009 8:58 PM SCREW SUPERVISOR) [facility] Method Time Signature N-Terminal Results 0 - [...] / Volume Laterality 03/13/2009 8:58 PM 9 SCREW SUPERVISOR 10:34 PM SCREW SUPERVISOR Haroldo Arnold MD LAB - BLOOD ORDERABLES Performing Organization Address City/State/ZIP Code Phon e Number MISYS documented in this encounter Visit Diagnoses Not on filedocumented in this encounter Additional Health Concerns Infection Onset Date Last Indicated Resolved Time MRSA-Contact IsolationComment: 0 04/26/2021 11:03 AM SCREW SUPERVISOR Infection erroneous documented as of this encounter
--- OUTSIDE RECORDS SUMMARY | 2022-03-22 14:00 | XMS_ITS | Encounter Summary ---
:1960 Author Organization [place] Address [address] [place] [address] Care Team Providers Name Role Phone Unavailable [...] 03/14/2009 1:21 AM Results f or this STAVE CUTTER procedure are i n the results section . documented in this encounter Results EKG 12 LEAD (03/14/2009 1:21 AM STAVE CUTTER) Component Value Ref Range Test Analysis Performed Pathologis t Method Time At Signature Ventricular Rate 178 BPM RADIOLOGY RESULTS Atrial Rate 197 BPM RADIOLOGY RESULTS QRS Duration 100 ms RADIOLOGY RESULTS QT 274 ms RADIOLOGY RESULTS QTc 471 ms RADIOLOGY RESULTS R AXIS -2 degrees RADIOLOGY RESULTS T [place] -154 degrees RADIOLOGY RESULTS Interpretation AGE AND [...] / Volume Laterality 03/14/2009 1:21 AM 9 STAVE CUTTER 10:47 AM STAVE CUTTER Transcripton Interface ECG ORDERABLES Performing Organization Address City/State/ZIP Code Phon e Number RADIOLOGY RESULTS documented in this encounter Visit Diagnoses Not on filedocumented in this encounter Additional Health Concerns Infection Onset Date Last Indicated Resolved Time MRSA-Contact IsolationComment: 0 04/26/2021 11:03 AM STAVE CUTTER Infection erroneous documented as of this encounter
--- OUTSIDE RECORDS SUMMARY | 2022-03-22 14:00 | XMS_ITS | Encounter Summary ---
:1960 Author Organization [place] Address [address] [place] [address] Care Team Providers Name Role Phone Unavailable Primary Care Provider Unavailable Encounter Details Date Type Department Care Team Description 03/16/2009 Historic Notes INTERFACED REPORT Xu Wyatt MD [address] [facility] [address] [place] [address] (Wo rk) Social History Tobacco [...] to pain, intubated A/P: Renal failure, nonoliguric, Item Repair Manager improving. Doubt that we will need dialysis today. Decrease IV rate Hypomagnesemia: replace Resp failure: not ready to extubate yet due to MS EtOH withdrawal. Continue dexmetatomidine, decrease ativan Malnutrition: Begin TFs via NG Hypokalemia: replace 45 min ICU time GB [phone] [Signature] Author: BRIAN WYATT) [Signed 09:09] documented in this encounter Plan of Treatment Not on filedocumented as of this encounter Visit Diagnoses Not on filedocumented in this encounter Additional Health Concerns Infection Onset Date Last Indicated Resolved Time MRSA-Contact IsolationComment: 0 04/26/2021 11:03 AM OILER AND GREASER Infection erroneous documented as of this encounter
--- OUTSIDE RECORDS SUMMARY | 2022-03-22 14:00 | XMS_ITS | Encounter Summary ---
:1960 Author Organization [place] Address [address] [facility] [place] [address] Care Team Providers Name Role Phone Unavailable Primary Care Provider Unavailable Encounter Details Date Type Department Care Team Description 03/14/2009 Operative Report [facility] Jamaal Tyler (Blow Pit Operator) [facility] MD Danie Results [facility] [address] [facility] [facility] [address] [place] [phone] (Wo rk) Social History Tobacco Use Types Packs/Day Years Used Date Smoking Tobacco: Never Alcohol Use Standard Drinks/Week Comments Yes 0 (1 standard drink = 0.6 oz pure alcoho l) socially approx 5 drinks/wk Sex Assigned at Date Recorded Not on file documented as of this encounter Progress Notes Jamaal Tyler - 03/30/2009 8:06 AM BUSBOY FINAL INDICATIONS: Acute renal failure with hyperkalemia [...] EM#[id number] Name: ELIJAH AMADOR MRN: [id number] Account: [id number] : 1960 Procedure Date: 03/14/2009 Document: [id number] OY documented in this encounter Plan of Treatment Not on filedocumented as of this encounter Visit Diagnoses Not on filedocumented in this encounter Additional Health Concerns Infection Onset Date Last Indicated Resolved Time MRSA-Contact IsolationComment: 0 04/26/2021 11:03 AM BUSBOY Infection erroneous documented as of this encounter
--- OUTSIDE RECORDS SUMMARY | 2022-03-22 14:00 | XMS_ITS | Encounter Summary ---
:1960 Author Organization [place] Address [address] [place] [address] Care Team Providers Name Role Phone Unavailable Primary Care Provider Unavailable Encounter Details Date Type Department Care Team Description 03/14/2009 Results Only [facility] Haroldo Sandoval MD Hospital Results [facility] [address] [place], [place] [phone] (Wo rk) Social History Tobacco Use Types [...] 03/14/2009 1:37 AM Resu lts for this SHAG TRUCK DRIVER procedure are i n the results section. HC CHEST ONE VIEW Routine 03/14/2009 1:00 AM Resu lts for this SHAG TRUCK DRIVER procedure are i n the results section. documented in this encounter Results CHEST X-RAY 1 VW (03/14/2009 1:37 AM SHAG TRUCK DRIVER) Anatomical Region Laterality Modality Other Specimen (Source) Anatomical Collection Method Collection Time Re ceived Time Location / / Volume Laterality 03/14/2009 1:37 AM SHAG TRUCK DRIVER Impressions 03/14/2009 9:51 PM SHAG TRUCK DRIVER CHEST, ONE VIEW PORTABLE ??Mar 14, 2009, [...] CHEST X-RAY 1 VW (03/14/2009 1:00 AM SHAG TRUCK DRIVER) Anatomical Region Laterality Modality Other Specimen (Source) Anatomical Collection Method Collection Time Re ceived Time Location / / Volume Laterality 03/14/2009 1:00 AM SHAG TRUCK DRIVER Impressions 03/14/2009 9:51 PM SHAG TRUCK DRIVER CHEST, ONE VIEW PORTABLE ??Mar 14, 2009, [...] Time MRSA-Contact IsolationComment: 0 04/26/2021 11:03 AM SHAG TRUCK DRIVER Infection erroneous documented as of this encounter
--- OUTSIDE RECORDS SUMMARY | 2022-03-22 14:00 | XMS_ITS | Encounter Summary ---
:1960 Author Organization [place] Address [address] [place] [address] Care Team Providers Name Role Phone Unavailable Primary Care Provider Unavailable Encounter Details Date Type Department Care Team Description 03/16/2009 Results Only [facility] Liam Traylor MD Hospital Results [address] [place], [place] [address] (Wo rk) Social History [...] Name Priority Date/Time Associated Diagnosis Comme [facility] CHEST ONE VIEW Routine 03/16/2009 4:50 AM Resu lts for this FIELD SERVICE SPECIALIST procedure are i n the results section. documented in this encounter Results CHEST X-RAY 1 VW (03/16/2009 4:50 AM FIELD SERVICE SPECIALIST) Anatomical Region Laterality Modality Other Specimen (Source) Anatomical Collection Method Collection Time Re ceived Time Location / / Volume Laterality 03/16/2009 4:50 AM FIELD SERVICE SPECIALIST Impressions 03/16/2009 9:53 AM FIELD SERVICE SPECIALIST CHEST 1VIEW PORTABLE Mar 16, 2009 4:50:0 [...] MRSA-Contact IsolationComment: 0 04/26/2021 11:03 AM FIELD SERVICE SPECIALIST Infection erroneous documented as of this encounter
--- OUTSIDE RECORDS SUMMARY | 2022-03-22 14:00 | XMS_ITS | Encounter Summary ---
:1960 Author Organization [place] Address [address] [place] [address]. [place] [address] Care Team Providers Name Role Phone Unavailable Primary Care Provider Unavailable Encounter Details Date Type Department Care Team Description 03/15/2009 Emergency room [facility] Je Mendes MD [facility] Results [facility] [address] [place] [address] [place] [id number] (Wo rk) Social History Tobacco Use Types Packs/Day Years Used Date Smoking Tobacco: Never Alcohol Use Standard Drinks/Week Comments Yes 0 (1 standard drink = 0.6 oz pure alcoho l) socially approx 5 drinks/wk Sex Assigned at Date Recorded Not on file documented as of this encounter Progress Notes Haroldo Mendes - 05/01/2009 6:26 AM COSMETIC DENTIST FINAL CHIEF COMPLAINT: Shortness of breath and [...] was cardioverted, Dr. Carpenter noted that the clam shovel operator thought that the patient was likely in rhabdo and was unlikely to require emergent dialysis tonight. He recommended fluid and stabilization resuscitation and that he would be seen in the morning. This greatly concern me as I felt that Mr. Brown met multiple criteria for emergent dialysis tonight. I, therefore, called the clam shovel operator back and explained to him my great [...] EM#[id number] Name: ELIJAH BROWN MRN: [id number] Account: [id number] : 1960 Visit Date: Document: [id number] ETIC DENTIST documented in this encounter Plan of Treatment Not on filedocumented as of this encounter Visit Diagnoses Not on filedocumented in this encounter Additional Health Concerns Infection Onset Date Last Indicated Resolved Time MRSA-Contact IsolationComment: 0 04/26/2021 11:03 AM COSMETIC DENTIST Infection erroneous documented as of this encounter
--- OUTSIDE RECORDS SUMMARY | 2022-03-22 14:00 | XMS_ITS | Encounter Summary ---
:1960 Author Organization [place] Address [address] [place] [address] Care Team Providers Name Role Phone Unavailable Primary Care Provider Unavailable Encounter Details Date Type Department Care Team Description 03/17/2009 Historic Results [facility]ianni Church MD Hospitalists [address] [place], [place] [address] (Wo rk) Social History [...] 03/17/2009 8:24 PM Resul ts for this STUNT PERFORMER procedure are i n the results section. GLUCOSE BY METER Routine 03/17/2009 4:02 PM Resul ts for this STUNT PERFORMER procedure are i n the results section. GLUCOSE BY METER Routine 03/17/2009 12:17 PM Resu lts for this STUNT PERFORMER procedure are i n the results section. GLUCOSE BY METER Routine 03/17/2009 8:10 AM Resul ts for this STUNT PERFORMER procedure are i n the results section. C DIFFICILE TOXIN A Routine 03/17/2009 5:50 AM Re sults for this AND B (QUEST) STUNT PERFORMER procedure are in the results section. C DIFFICILE CULTURE Routine 03/17/2009 5:50 AM Re sults for this STUNT PERFORMER procedure are i n the results section. PHOSPHORUS Routine 03/17/2009 5:25 AM Results f or this STUNT PERFORMER procedure are i n the results section. MAGNESIUM Routine 03/17/2009 5:25 AM Results f or this STUNT PERFORMER procedure are i n the results section. HEPATIC FUNCTION Routine 03/17/2009 5:25 AM Resul ts for this PANEL STUNT PERFORMER procedure are i n the results section. CK TOTAL Routine 03/17/2009 5:25 AM Results f or this STUNT PERFORMER procedure are i n the results section. BASIC METABOLIC Routine 03/17/2009 5:25 AM Result s for this PANEL STUNT PERFORMER procedure are i n the results section. CBC WITH PLATELETS Routine 03/17/2009 5:25 AM Res ults for this STUNT PERFORMER procedure are i n the results section. GLUCOSE BY METER Routine 03/17/2009 4:05 AM Resul ts for this STUNT PERFORMER procedure are i n the results section. documented in this encounter Results (ABNORMAL) Glucose by meter (03/17/2009 8:24 PM STUNT PERFORMER) P athologist Signature Glucose 206 (H) 60 - 99 MISYS mg/dL Specimen Anatomical Collection Method Collection Time Receive d Time (Source) Location / / Volume Laterality 03/17/2009 8:24 PM 9 8:40 STUNT PERFORMER PM STUNT PERFORMER Kaiden REHMAN - JESICA POCT Performing Organization Address [facility] Phon e Number MISYS (ABNORMAL) Glucose by meter (03/17/2009 4:02 PM STUNT PERFORMER) athologist Signature Glucose 175 (H) 60 - 99 MISYS mg/dL Specimen Anatomical Collection Method Collection Time Receive d Time (Source) Location / / Volume Laterality 03/17/2009 4:02 PM 9 4:15 STUNT PERFORMER PM STUNT PERFORMER Kaiden REHMAN - JESICA POCT Performing Organization Address [facility] Phon e Number MISYS (ABNORMAL) Glucose by meter (03/17/2009 12:17 PM STUNT PERFORMER) athologist Signature Glucose 163 (H) 60 - 99 MISYS mg/dL Comment: RN/Dr notified Specimen Anatomical Collection Method Collection Time Receive d Time (Source) Location / / Volume Laterality 03/17/2009 12:17 03/17/2009 1:15 PM STUNT PERFORMER PM STUNT PERFORMER Kaiden MOONEY POCT Performing Organization Address [facility] Phon e Number MISYS (ABNORMAL) Glucose by meter (03/17/2009 8:10 AM STUNT PERFORMER) P athologist Signature Glucose 185 (H) 60 - 99 MISYS mg/dL Specimen Anatomical Collection Method Collection Time Receive d Time (Source) Location / / Volume Laterality 03/17/2009 8:10 AM 9 8:16 STUNT PERFORMER AM STUNT PERFORMER Kaiden Carpenter MD LAB - BEAKER POCT Performing Organization Address [facility] Phon e Number MISYS C difficile culture (03/17/2009 5:50 AM STUNT PERFORMER) Patholo gist Method Time Signature Specimen Feces MISYS Descrip C Difficile Light growth MISYS Culture Clostridium difficile Specimen Anatomical Collection Method Collection Time Receive d Time (Source) Location / / Volume Laterality 03/17/2009 5:50 AM 9 5:59 STUNT PERFORMER AM STUNT PERFORMER Kaiden Carpenter MD LAB - MICRO GENERAL ORDERABL ES Performing Organization Address [facility] Phon e Number MISYS C difficile toxin A and B (03/17/2009 5:50 AM STUNT PERFORMER) Patholo gist Method Time Signature Specimen Feces [...] Volume Laterality 03/17/2009 5:50 AM 9 6:10 STUNT PERFORMER AM STUNT PERFORMER Kaiden Carpenter MD LAB - BLOOD ORDERABLES Performing Organization Address [facility] Phon e Number MISYS (ABNORMAL) CBC with platelets (03/17/2009 5:25 AM STUNT PERFORMER) Analysis Performed At Patho logist Time Signature [...] / Volume Laterality 03/17/2009 5:25 AM 9 STUNT PERFORMER Brian Turner MD LAB - BLOOD ORDERABLES Performing Organization Address City/State/ZIP Code Phon e Number MISYS (ABNORMAL) Basic metabolic panel (03/17/2009 5:25 AM STUNT PERFORMER) Analysis Performed At Patho logist Time Signature [...] / Volume Laterality 03/17/2009 5:25 AM 9 STUNT PERFORMER Brian Turner MD LAB - BLOOD ORDERABLES Performing Organization Address City/State/ZIP Code Phon e Number MISYS Magnesium (03/17/2009 5:25 AM STUNT PERFORMER) P athologist Signature Magnesium 1.6 1.6 - 2.3 MISYS mg/dL Specimen (Source) Anatomical Collection Method Collection Time Re ceived Time Location / / Volume Laterality 03/17/2009 5:25 AM 9 STUNT PERFORMER Brian Turner MD LAB - BLOOD ORDERABLES Performing Organization Address [facility] Phon e Number MISYS Phosphorus (03/17/2009 5:25 AM STUNT PERFORMER) athologist Signature Phosphorus 2.7 2.5 - 4.5 MISYS mg/dL Specimen (Source) Anatomical Collection Method Collection Time Re ceived Time Location / / Volume Laterality 03/17/2009 5:25 AM 9 STUNT PERFORMER Brian Turner MD LAB - BLOOD ORDERABLES Performing Organization Address [facility] Phon e Number MISYS (ABNORMAL) CK total (03/17/2009 5:25 AM STUNT PERFORMER) athologist Signature CK Total 475 (H) 45 - 300 MISYS U/L Specimen (Source) Anatomical Collection Method Collection Time Re ceived Time Location / / Volume Laterality 03/17/2009 5:25 AM 9 STUNT PERFORMER Brian Turner MD LAB - BLOOD ORDERABLES Performing Organization Address [facility] Phon e Number MISYS (ABNORMAL) Hepatic panel (03/17/2009 5:25 AM STUNT PERFORMER) Analysis Performed At Patho logist Time Signature [...] / Volume Laterality 03/17/2009 5:25 AM 9 STUNT PERFORMER Richard Shirley MD LAB - BLOOD ORDERABLES Performing Organization Address City/State/ZIP Code Phon e Number MISYS (ABNORMAL) Glucose by meter (03/17/2009 4:05 AM STUNT PERFORMER) P athologist Signature Glucose 203 (H) 60 - 99 MISYS mg/dL Specimen Anatomical Collection Method Collection Time Receive d Time (Source) Location / / Volume Laterality 03/17/2009 4:05 AM 9 8:16 STUNT PERFORMER AM STUNT PERFORMER Kaiden Carpenter MD LAB - BEAKER POCT Performing Organization Address City/State/[facility] Code Phon e Number MISYS documented in this encounter Visit Diagnoses Not on filedocumented in this encounter Additional Health Concerns Infection Onset Date Last Indicated Resolved Time MRSA-Contact IsolationComment: 0 04/26/2021 11:03 AM STUNT PERFORMER Infection erroneous documented as of this encounter
--- OUTSIDE RECORDS SUMMARY | 2022-03-22 14:00 | XMS_ITS | Encounter Summary ---
:1960 Author Organization [place] Address [address] [place] [address] Care Team Providers Name Role Phone Unavailable [...] 03/14/2009 2:09 AM Results f or this DRAW FRAME OPERATOR procedure are i n the results section . documented in this encounter Results EKG 12 LEAD (03/14/2009 2:09 AM DRAW FRAME OPERATOR) Component Value Ref Range Test Analysis Performed Pathologis t Method Time At Signature Ventricular Rate 125 BPM RADIOLOGY RESULTS Atrial Rate 125 BPM RADIOLOGY RESULTS AK Interval 148 ms RADIOLOGY RESULTS QRS Duration 104 ms RADIOLOGY RESULTS QT 300 ms RADIOLOGY RESULTS QTc 433 ms RADIOLOGY RESULTS P [place] 43 degrees RADIOLOGY RESULTS R AXIS -4 degrees RADIOLOGY RESULTS T [place] 13 degrees RADIOLOGY RESULTS Interpretation AGE AND GENDER SPECIFIC ECG ANALYSIS RADIOLOGY ECG Sinus tachycardia RESULTS Otherwise normal ECG Unconfirmed report - interpretation of this ECG is compute r generated - see medical record for final interpretation Specimen Anatomical Collection Method Collection Time Receive d Time (Source) Location / / Volume Laterality 03/14/2009 2:09 AM 9 DRAW FRAME OPERATOR 10:47 AM DRAW FRAME OPERATOR Transcripton Interface ECG ORDERABLES Performing Organization Address City/State/ZIP Code Phon e Number RADIOLOGY RESULTS documented in this encounter Visit Diagnoses Not on filedocumented in this encounter Additional Health Concerns Infection Onset Date Last Indicated Resolved Time MRSA-Contact IsolationComment: 0 04/26/2021 11:03 AM DRAW FRAME OPERATOR Infection erroneous documented as of this encounter
--- OUTSIDE RECORDS SUMMARY | 2022-03-22 14:00 | XMS_ITS | Encounter Summary ---
:1960 Author Organization [place] Address [address] [place] [address] Care Team Providers Name Role Phone Unavailable Primary Care Provider Unavailable Encounter Details Date Type Department Care Team Description 03/14/2009 Historic Notes INTERFACED REPORT Xu Wyatt MD [address] [facility] [address] [place] [address] (Wo rk) Social History Tobacco [...] Respiratory failure: continue current vent support. GB [phone] [Signature] Author: BRIAN WYATT) [Signed 08:53] documented in this encounter Plan of Treatment Not on filedocumented as of this encounter Visit Diagnoses Not on filedocumented in this encounter Additional Health Concerns Infection Onset Date Last Indicated Resolved Time MRSA-Contact IsolationComment: 0 04/26/2021 11:03 AM CONCRETE BLOCK MAKER Infection erroneous documented as of this encounter
--- OUTSIDE RECORDS SUMMARY | 2022-03-22 14:00 | XMS_ITS | Encounter Summary ---
:1960 Author Organization [place] Address [address] [place] [address] Care Team Providers Name Role Phone Unavailable Primary Care Provider Unavailable Encounter Details Date Type Department Care Team Description 03/15/2009 Historic Notes INTERFACED REPORT Xu Wyatt MD [address] [facility] [address] [place] [address] (Wo rk) Social History Tobacco [...] soft Ext: no edema 7.5/28/177 K 4.3, Firebreak Cutter 8.4, Mg 1.8, CK 705 A/P: Alcohol [...] consider TFs if pt still intubated tomorrow [phone] [Signature] Author: BRIAN WYATT) [Signed 09:48] documented in this encounter Plan of Treatment Not on filedocumented as of this encounter Visit Diagnoses Not on filedocumented in this encounter Additional Health Concerns Infection Onset Date Last Indicated Resolved Time MRSA-Contact IsolationComment: 0 04/26/2021 11:03 AM QUALITY CONTROL AUDITOR Infection erroneous documented as of this encounter
--- OUTSIDE RECORDS SUMMARY | 2022-03-22 14:00 | XMS_ITS | Encounter Summary ---
:1960 Author Organization [place] Address [address] [place] [address] Care Team Providers Name Role Phone Unavailable [...] as of this encounter Progress Notes Interface, Syrup Mixer - 07/10/2010 3:30 PM CDT Pt. placed on 10/5 bipap, rate of 8, 40%. SpO2 97%. Pt. found off bipap per RN at 0015. [Signature] Author: Flora Siddiqui (SALES SUPPORT ASSOCIATE) [Signed 00:34] Interface, Syrup Mixer - 07/10/2010 3:30 PM CDT Notification - [...] SUZANNE OBREGON (RN)[Signed 07:50] Authored: Notification Interface, Syrup Mixer - 07/10/2010 3:29 PM CDT General Information - How to be Addressed navarro - Temporary Family none required Living Arrangements - Source of Information family; significant other - Arrived From emergency department - auto parts counter person #1: Shalonda - Relationship to girlfriend patient #1: - Contact Location: Home Local - Phone 1: [phone] - auto parts counter person #2: Chantal Woods - Relationship to sister patient #2: - Contact Location: Home Local - Phone 1: [phone] - Cell - auto parts counter person #3: Juan Pablo - Relationship to mom & dad patient #3: - Phone 1: [phone] - Patient's spoken language; Australian or Bilingual communication style Advance Directive - [...] abuse, self neglect, lack of adequate food, residential, medical care, or financial exploitation)? Values/Beliefs/Spiritual Care - C: Community: In pt/family will contact support of your spiritual health, is there someone we may contact for you? (identify all that apply) Learning Assessment - Factors Influencing acuteness of illness Readiness to Learn - Factors that Impact unresponsive Ability to Learn - Learning Preferences unable - Cultural none Considerations - Developmental none Considerations - Voodoo none Considerations Mutuality/Individual Preferences - What information [...] Time MRSA-Contact IsolationComment: 0 04/26/2021 11:03 AM TOOLMAKER HELPER Infection erroneous documented as of this encounter
--- OUTSIDE RECORDS SUMMARY | 2022-03-22 14:01 | XMS_ITS | Encounter Summary ---
:1960 Author Organization [place] Address [address] [place] [address] Care Team Providers Name Role Phone Unavailable Primary Care Provider Unavailable Encounter Details Date Type Department Care Team Description 09/15/2008 Emergency room [facility] Results MD [place] [address] Social History Tobacco Use Types Packs/Day Years Used Date Smoking Tobacco: Never Alcohol Use Standard Drinks/Week Comments Yes 0 (1 standard drink = 0.6 oz pure alcoho l) socially approx 5 drinks/wk Sex Assigned at Date Recorded Not on file documented as of this encounter Progress Notes Interface, Technical Professional - 09/27/2008 2:16 PM CDT FINAL CHIEF [...] AND SOCIAL HISTORY: 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 He does have ahistory [...] ROSHNI#[id number] Name: ELIJAH AMADOR MRN: [id number] Account: [id number] : 1960 Visit Date: 09/15/2008 Document: [id number] cc: Julius Welsh MD documented in this encounter Plan of Treatment Not on filedocumented as of this encounter Visit Diagnoses Not on filedocumented in this encounter Additional Health Concerns Infection Onset Date Last Indicated Resolved Time MRSA-Contact IsolationComment: 0 04/26/2021 11:03 AM TIRE SHOP MECHANIC Infection erroneous documented as of this encounter
--- OUTSIDE RECORDS SUMMARY | 2022-03-22 14:01 | XMS_ITS | Encounter Summary ---
:1960 Author Organization [place] Address [address] [place] [address] Care Team Providers Name Role Phone Unavailable Primary Care Provider Unavailable Encounter Details Date Type Department Care Team Description 07/17/2008 Historic Results [facility] Yrn Voss, [facility] [address] [place], [place] [address] [address] [address] [place] [address] (Wo rk) Social History Tobacco Use Types [...] Component Value Ref Test Analysis Performed At [facility] myinfoQ Range Method Time Signature Source Unspecified MISYS Urine Color Urine Yellow MISYS Appearance Urine Clear MISYS Glucose Urine Negative NEG MISYS mg/dL Bilirubin Urine Negative NEG MISYS Ketones Urine Negative NEG MISYS mg/dL Specific [place] 1.014 1.003 - MISYS Urine 1.035 Blood [...] - URINE ORDERABLES Performing Organization Address City/[facility]/ZIP Code Phon e Number MISYS Urine culture (07/17/2008 12:45 PM CDT) [facility] gist Method Time Signature Specimen Unspecified MISYS [...] - BLOOD ORDERABLES Performing Organization Address City/[facility]/ZIP Code Phon e Number MISYS Alcohol ethyl (07/17/2008 7:05 AM CDT) P athologist Signature Ethanol g/dL <0.01 0.01 g/dL MISYS Specimen (Source) Anatomical Collection Method Collection Time Re ceived Time Location / / Volume Laterality 07/17/2008 7:05 AM 9 CDT Gila Voss MD LAB - BLOOD ORDERABLES Performing Organization Address [facility] Phon e Number MISYS (ABNORMAL) Magnesium (07/17/2008 7:05 AM CDT) P athologist Signature Magnesium 1.2 (L) 1.6 - 2.3 MISYS mg/dL Specimen (Source) Anatomical Collection Method Collection Time Re ceived Time Location / / Volume Laterality 07/17/2008 7:05 AM 9 CDT Gila Voss MD LAB - BLOOD ORDERABLES Performing Organization Address [facility] Phon e Number MISYS documented in this encounter Visit Diagnoses Not on filedocumented in this encounter Additional Health Concerns Infection Onset Date Last Indicated Resolved Time MRSA-Contact IsolationComment: 0 04/26/2021 11:03 AM BROADCAST MAINTENANCE ENGINEER Infection erroneous documented as of this encounter
--- OUTSIDE RECORDS SUMMARY | 2022-03-22 14:01 | XMS_ITS | Encounter Summary ---
:1960 Author Organization [place] Address [facility] [place] [address] Care Team Providers Name Role Phone Unavailable Primary Care Provider Unavailable Encounter Details Date Type Department Care Team Description 07/16/2008 Results Only [facility] Ruben Anderson MD [address] [facility] [address] [place], [place] [address] [place] [address] [phone] (Wo rk) Social History Tobacco Use Types [...] procedure are i n the results section. [facility] ECHO HEART Routine 07/16/2008 1:32 PM Results [...] of the neck were obtained using 2-dimensional jtct-ta-wefpzo before cont rast and three dimensional ohwu-js-rdklwy after the uneventful admi nistration of gadolinium [...] ??eval high gr ottoniel stenosis, TECHNIQUE: ??3D fjai-zq-bzfcqu MR angiog herve of the head without contrast. COMPARISON: None. FINDINGS: The visualized portions of the distal internal carotid and vertebral arteries, the basilar artery, [place], and the proximal anterior, middle [...] XTHORACIC,COMPLETE, W/O DOPPLER (07/16/2008 1:32 PM CDT) [facility] Method Time Signature XCELERA RADIOLOGY Interpretation [...] MRSA-Contact IsolationComment: 0 04/26/2021 11:03 AM IT APPLICATION ARCHITECT Infection erroneous documented as of this encounter
--- OUTSIDE RECORDS SUMMARY | 2022-03-22 14:01 | XMS_ITS | Encounter Summary ---
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 He states the next thing he knows is that paramedics were putting him into an ambulance. The details of what happened are unclear. He apparently was unresponsive at work, but no indicationof seizure activity. The maintenance team member report indicates that he was alert. There are no apparent neurologic abnormalities. His initial blood pressure was 130/palpable. Pulse was 90 beats per minute. I do not see that blood sugar was checked. He was transported to [facility] Emergency Room, where he was evaluated. Laboratory [...] other. As noted above, he works in [employer] in [employer]. He states does not smoke but, as [...] MD MT: [id number] Name: ELIJAH BROWN Account: [id number] : 1960 Consult Date: 07/16/2008 Document: [id number] cc: Liudmila Austin MD documented in this encounter Plan of Treatment Not on filedocumented as of this encounter Visit Diagnoses Not on filedocumented in this encounter Additional Health Concerns Infection Onset Date Last Indicated Resolved Time MRSA-Contact IsolationComment: 0 04/26/2021 11:03 AM PRODUCTION SHIFT SUPERVISOR Infection erroneous documented as of this encounter
--- OUTSIDE RECORDS SUMMARY | 2022-03-22 14:01 | XMS_ITS | Encounter Summary ---
:1960 Author Organization [place] Address [address] [place] [address] Care Team Providers Name Role Phone Unavailable [...] as of this encounter Progress Notes Interface, Centerless Grinder Set Up Operator - 07/11/2010 6:11 AM CDT General Information - How to be addressed Kayden - Source of reliable Patient; Chart(s) information - Arrived from Emergency department - crew person #1: Perlita - Contact Location: Home Local - Phone 1: [phone] - Patient's spoken language; Swedish or Bilingual communication style Advance Directive - [...] Considerations - Developmental None Learning Considerations - Protestant Learning None Considerations Activity-Exercise/Self Care - Ambulation [...] life Values/Beliefs/Spiritual Care - F: Enedina: Does Judaism culture/spirituality/ church play an important part in your life? - Would you like Does not wish to have anyone contacted pastoral care/clergy/comfort advisor notified? Mutuality/Individual Preferences - What information [...] Cognitive Perceptual, Activity-Exercise/Self Care, Role Relationships Interface, Centerless Grinder Set Up Operator - 07/11/2010 6:11 AM CDT RX: Fall [...] Time MRSA-Contact IsolationComment: 0 04/26/2021 11:03 AM TICKET COUNTER Infection erroneous documented as of this encounter
--- OUTSIDE RECORDS SUMMARY | 2022-03-22 14:01 | XMS_ITS | Encounter Summary ---
:1960 Author Organization [place] Address [address] [place] [address] Care Team Providers Name Role Phone Unavailable Primary Care Provider Unavailable Encounter Details Date Type Department Care Team Description 09/08/2008 Emergency room [facility] [place], Hospital Results EMERGENCY PHYSIC CARMEN MCKOY [address] [place], [place] [address] (Wo rk) Social History [...] He was seen by a chemical dependency senior bookkeeper, he was felt to be a vulnerable [...] ROSHNI#[id number] Name: ELIJAH BROWN MRN: [id number] Account: [id number] : 1960 Visit Date: 09/08/2008 Document: [id number] documented in this encounter Plan of Treatment Not on filedocumented as of this encounter Visit Diagnoses Not on filedocumented in this encounter Additional Health Concerns Infection Onset Date Last Indicated Resolved Time MRSA-Contact IsolationComment: 0 04/26/2021 11:03 AM IT SECURITY ARCHITECT Infection erroneous documented as of this encounter
--- OUTSIDE RECORDS SUMMARY | 2022-03-22 14:01 | XMS_ITS | Encounter Summary ---
:1960 Author Organization [place] Address [address] [place] [address] Care Team Providers Name Role Phone Unavailable Primary Care Provider Unavailable Encounter Details Date Type Department Care Team Description 09/19/2008 Orders Only [facility] Tristan Egan SIS NOT YET Clinic [place] MD Navin [address] [address] [phone] Social History Tobacco Use Types Packs/Day Years [...] . documented in this encounter Results LDL-CHOLESTEROL [84419.001] (09/19/2008) P athologist Signature LDL Cholesterol 57 mg/dL MISYS Calculated Tristan Egan MD LABORATORY Performing Organization Address City/State/ZIP Code Phon e Number MISYS HDL CHOLESTEROL [76138.000] (09/19/2008) P athologist Signature HDL Cholesterol 43 mg/dL MISYS Tristan Egan MD LABORATORY Performing Organization Address [facility] [address] [facility] Code Phon e Number MISYS TRIGLYCERIDES [20922.000] (09/19/2008) P athologist Signature Triglycerides 131 mg/dL MISYS Tristan Egan MD LABORATORY Performing Organization Address [facility] [address]/[facility] Phon e Number MISYS CHOLESTEROL [19520.000] (09/19/2008) P athologist Signature Cholesterol 126 115 - 199 MISYS mg/dL Tristan Egan MD LABORATORY Performing Organization Address [facility] [address]/[facility] Phon e Number MISYS documented in this encounter Visit Diagnoses Diagnosis DIAGNOSIS NOT YET DEFINED documented in this encounter Additional Health Concerns Infection Onset Date Last Indicated Resolved Time MRSA-Contact IsolationComment: 0 04/26/2021 11:03 AM EDGE SETTER Infection erroneous documented as of this encounter
--- OUTSIDE RECORDS SUMMARY | 2022-03-22 14:01 | XMS_ITS | Encounter Summary ---
:1960 Author Organization [facility] Address [address] [place] [address] Care Team Providers Name Role Phone Unavailable Primary Care Provider Unavailable Reason for Visit Reason Comments Arthritis seen in er 09/15/08 for gout, improving Encounter Details Date Type Department Care Team Description 09/18/2008 Office Visit [facility] Julius Welsh MD Gout (Primary Dx); Clinic [place] [address] [address] [place] [address] [place] [address] (Wo rk) Social History Tobacco Use Types [...] 3 days after visit to ER at [facility] for first time dx of gout. [...] 09/18/2008 8:30 AM CDT >> SAMMI AGUILAR [facility] September 18, 2008 8:32 AM Patient presents with: Arthritis - seen in er 09/15/08 for gout, improving Initial BP 122/78 Ht 5' 8 (1.727 m) Wt 190 lb (86.183 kg) Body mass index is 28.89 kg/(m^2).. BP completed using cuff size large - [place]. Sammi Aguilar, [employer] Internship documented in this encounter Plan of Treatment Not on filedocumented as of this encounter Visit Diagnoses Diagnosis Gout - Primary Gout, unspecified ANEMIA NOS Anemia, unspecified documented in this encounter Additional Health Concerns Infection Onset Date Last Indicated Resolved Time MRSA-Contact IsolationComment: 0 04/26/2021 11:03 AM FUR PLUCKER Infection erroneous documented as of this encounter
--- OUTSIDE RECORDS SUMMARY | 2022-03-22 14:01 | XMS_ITS | Encounter Summary ---
:1960 Author Organization [place] Address [address] [place] [address] Care Team Providers Name Role Phone Unavailable Primary Care Provider Unavailable Encounter Details Date Type Department Care Team Description 09/15/2008 Results Only [facility] Adriane, Andrea [place], Hospital Results [place] [address] Social History Tobacco Use Types Packs/Day Years Used Date Smoking Tobacco: Never Alcohol Use Standard Drinks/Week Comments Yes 0 (1 standard drink = 0.6 oz pure alcoho l) socially approx 5 drinks/wk Sex Assigned at Date Recorded Not on file documented as of this encounter Plan of Treatment Not on filedocumented as of this encounter Procedures Procedure Name Priority Date/Time Associated Diagnosis Comme [facility] X-RAY FOOT Routine 09/15/2008 4:48 PM [...] Time MRSA-Contact IsolationComment: 0 04/26/2021 11:03 AM TEACHING SUPERVISOR Infection erroneous documented as of this encounter
--- OUTSIDE RECORDS SUMMARY | 2022-03-22 14:01 | XMS_ITS | Encounter Summary ---
:1960 Author Organization [place] Address [address] [place] [address] Care Team Providers Name Role Phone Unavailable Primary Care Provider Unavailable Encounter Details Date Type Department Care Team Description 07/16/2008 Orders Only [facility] Amna Austin DIAGNOS IS NOT YET Clinic [place] MD Fina DEFINED (Primary Dx) [address] [place], [place] CLINIC [address] [phone] [place], [place] [address] Social History Tobacco Use [...] REPORT (07/16/2008) Impressions MISYS - 07/16/2008 CASE: [id number] Patient Name: ELIJAH BROWN MR#: [id number] Specimen #: [id number] Collected: 07/16/2008 Received: 07/16/2008 Reported: 07/16/2008 11:00 [...] seen. There is relative monocytosis, but absol [place] numbers are within normal limits. ??There is [...] is required. KARLEE/kalina /07-16-08 TESTING LAB LOCATION: [address] ??[address] COLLECTION SITE: Client: ??[facility] Location: ??MS3 (R) Electronically filed by Joan Jessica ??07/17/2008 ??9:06 AM Amna Austin MD LABORATORY Performing Organization Address City/State/ZIP Code Phon e Number MISYS documented in this encounter Visit Diagnoses Diagnosis DIAGNOSIS NOT YET DEFINED - Primary documented in this encounter Additional Health Concerns Infection Onset Date Last Indicated Resolved Time MRSA-Contact IsolationComment: 0 04/26/2021 11:03 AM BOBBIN DISKER Infection erroneous documented as of this encounter
--- OUTSIDE RECORDS SUMMARY | 2022-03-22 14:01 | XMS_ITS | Encounter Summary ---
:1960 Author Organization [place] Address [address] [place] [address] Care Team Providers Name Role Phone Unavailable Primary Care Provider Unavailable Encounter Details Date Type Department Care Team Description 07/16/2008 Historic Results [facility] Nany Austin Merrill MD Fina [address] [place], [place] CLINIC [address] [phone] [place], [place] [address] (Wo rk) Social History [...] (07/16/2008 6:55 AM CDT) Analysis Performed At [facility] Time Signature MCV 97 78 - 100 [...] AM 9 8:17 CDT PM CDT Amna Ausitn MD LAB - BLOOD ORDERABLES Performing Organization Address City/State/ZIP Code Phon e Number MISYS (ABNORMAL) Comprehensive metabolic panel (07/16/2008 6:55 AM CDT) Analysis Performed At [facility] Time Signature Sodium 141 133 - 144 [...] LAB - BLOOD ORDERABLES Performing Organization Address City/[facility] Phon e Number MISYS Blood smear morphology (07/16/2008 6:55 AM CDT) [facility] Embue Method Time Signature Blood See MISYS Morphology Pathologist Smear 's Report Specimen (Source) Anatomical Collection Method Collection Time Re ceived Time Location / / Volume Laterality 07/16/2008 6:55 AM 9 CDT Amna Austin MD LAB - BLOOD ORDERABLES Performing Organization Address [facility] Phon e Number MISYS (ABNORMAL) Differential (07/16/2008 6:55 AM CDT) [facility] Embue Method Time Signature % Neutrophils 61 40 [...] LAB - BLOOD ORDERABLES Performing Organization Address [facility] Phon e Number MISYS (ABNORMAL) [...] Value Ref Test Analysis Performed At [facility] gist Range Method Time Signature Copath CASE: [id number] ^ COPATH Report Patient Name: ELIJAH BROWN MR#: [id number] Specimen #: [id number] Collected: 07/16/2008 Received: 07/16/2008 Reported: 07/16/2008 11:00 [...] equired. JOSE RAMONK/kalina 07-16-08 TESTING LAB LOCATION: [facility] [address] [id number] COLLECTION SITE: Client: ??[facility] Location: ??MS3 (R) Specimen (Source) Anatomical Collection [...] Time MRSA-Contact IsolationComment: 0 04/26/2021 11:03 AM TELECOMMUNICATIONS OPERATOR Infection erroneous documented as of this encounter
--- OUTSIDE RECORDS SUMMARY | 2022-03-22 14:01 | XMS_ITS | Encounter Summary ---
:1960 Author Organization [place] Address [address] [place] [address] Care Team Providers Name Role Phone Unavailable Primary Care Provider Unavailable Encounter Details Date Type Department Care Team Description 07/18/2008 Results Only [facility] Denys Bangura MD [facility] Results [facility] OF NEUROLOGY [address] [facility] [address] [place], [place] [address] (Wo rk) Social History Tobacco Use Types Packs/Day Years Used Date Smoking Tobacco: Never Alcohol Use Standard Drinks/Week Comments Yes 0 (1 standard drink = 0.6 oz pure alcoho l) socially approx 5 drinks/wk Sex Assigned at Date Recorded Not on file documented as of this encounter Procedure Notes Denys Bangura - 07/21/2008 10:59 AM CDTAssociated Order(s): EEG AWAKE,SLEEP W STIMULATN FINAL ELECTROENCEPHALOGRAM ORDERING PHYSICIAN: Dr. Ruben Willis #: 09 - 84 LOCATION: [address] TYPE: routine CONDITION OF PATIENT: normal/tense. [...] recording with photic stimulation, or hyperventilation. The retail marketing executive is recording a regular, approximately 90 beat per minute heart rate. IMPRESSION: Normal awake EEG. Electronically signed on 08/22/2008 09:44 by DENYS SAENZ MD MT: lsd Name: ELIJAH BROWN Account: [id number] : 1960 Procedure Date: 07/18/2008 Document: [id number] cc: Ruben Austin MD documented in this [...] Ruben MondragonEG #: 09 - 84 LOCATION: [address] TYPE: routine CONDITION OF PATIENT: normal/tense. [...] recording with photic stimulation, or hyperventilation. The retail marketing executive is recording a regular, appr oximately 90 beat per minute heart rate. IMPRESSION: Normal awake EEG. Electronically signed on 08/22/2008 09: 44 by DENYS SAENZ MD MT: lsd Name: ELIJAH BROWN MRN: [id number] Account: [id number] : 1960 Procedure Date: 009 Document: [id number] cc: Ruben Austin MD Denys Bangura MD PROCEDURES documented in this encounter Visit Diagnoses Not on filedocumented in this encounter Additional Health Concerns Infection Onset Date Last Indicated Resolved Time MRSA-Contact IsolationComment: 0 04/26/2021 11:03 AM SOIL BIOLOGY TEACHER Infection erroneous documented as of this encounter
--- OUTSIDE RECORDS SUMMARY | 2022-03-22 14:01 | XMS_ITS | Encounter Summary ---
:1960 Author Organization [place] Address [address] [place] [address] Care Team Providers Name Role Phone Unavailable Primary Care Provider Unavailable Encounter Details Date Type Department Care Team Description 09/19/2008 Historic Results [facility] Heart Unknown, Doct or, Clinic [address] [place] [address] Social History Tobacco Use Types Packs/Day Years [...] GEMMS Historical Results (09/19/2008 12:00 AM CDT) [facility] gist Method Time Signature Triglycerides 131 [...] Time MRSA-Contact IsolationComment: 0 04/26/2021 11:03 AM RECRUITING TEAM LEAD Infection erroneous documented as of this encounter
--- OUTSIDE RECORDS SUMMARY | 2022-03-22 14:01 | XMS_ITS | Encounter Summary ---
:1960 Author Organization [place] Address [address] [place] [address] Care Team Providers Name Role Phone Unavailable Primary Care Provider Unavailable Encounter Details Date Type Department Care Team Description 03/13/2009 Results Only [facility] Haroldo Sandoval MD Hospital Results [facility] CECILIO MCKOY [address] [facility] [address] [place], [place] [address] (Wo rk) Social History Tobacco Use Types [...] 10:27 PM R esults for this FRONT/LAT BABY FORMULA WORKER procedure are i n the results section. documented in this encounter Results CHEST X-RAY 2 VW (03/13/2009 10:27 PM BABY FORMULA WORKER) Anatomical Region Laterality Modality Other Specimen (Source) Anatomical Collection Method Collection Time Re ceived Time Location / / Volume Laterality 03/13/2009 10:27 PM BABY FORMULA WORKER Impressions 03/14/2009 2:27 PM BABY FORMULA WORKER CHEST, TWO VIEWS ??03/13/2009, 10:27 PM INDICATION: [...] IsolationComment: 0 04/26/2021 11:03 AM BABY FORMULA WORKER Infection erroneous documented as of this encounter
--- OUTSIDE RECORDS SUMMARY | 2022-03-22 14:01 | XMS_ITS | Encounter Summary ---
:1960 Author Organization [place] Address [address] [place] [address] Care Team Providers Name Role Phone Unavailable Primary Care Provider Unavailable Encounter Details Date Type Department Care Team Description 07/15/2008 Historic Results INTERFACED REPORT Jace Forrest [place] [address] Social History Tobacco Use Types Packs/Day Years [...] (FL, RH, SH) (07/15/2008 7:20 PM CDT) [facility] Method Time Signature Amphetamine Qual Negative [...] 7:20 PM 9 5:11 CDT PM CDT Andrea Forrest MD LAB - URINE ORDERABLES Performing Organization Address City/State/ZIP Code Phon e Number MISYS (ABNORMAL) CBC with platelets differential (07/15/2008 5:25 PM CDT) [facility] Method Time Signature MCV 96 78 [...] LAB - BLOOD ORDERABLES Performing Organization Address City/[facility] Code Phon e Number MISYS Acetaminophen level [...] Time MRSA-Contact IsolationComment: 0 04/26/2021 11:03 AM CASING TIER Infection erroneous documented as of this encounter
--- OUTSIDE RECORDS SUMMARY | 2022-03-22 14:01 | XMS_ITS | Encounter Summary ---
:1960 Author Organization [place] Address [address] [place] [address] Care Team Providers Name Role Phone Unavailable [...] as of this encounter Progress Notes Interface, Research Phlebotomist - 07/11/2010 5:57 AM CDT Patient Status - Physical status Stable (s/s of potential complications absent or manageable) - Psychosocial status Stable Discharge Planning - Discharge From: [facility] - Patient Care Unit: MS 3 - [...] MRSA-Contact IsolationComment: 0 04/26/2021 11:03 AM SENIOR MARKET INTELLIGENCE CONSULTANT Infection erroneous documented as of this encounter
--- OUTSIDE RECORDS SUMMARY | 2022-03-22 14:01 | XMS_ITS | Encounter Summary ---
:1960 Author Organization [place] Address [address] [place] [address] Care Team Providers Name Role Phone No Ref-Primary, Physician Primary Care Provider Encounter Details Date Type Department Care Team Description 07/16/[address] [facility] Heart Unknown, [facility] ider [address] [place] [address] Social History Tobacco Use Types [...] Time MRSA-Contact IsolationComment: 0 04/26/2021 11:03 AM MEAT AND SEAFOOD CLERK Infection erroneous documented as of this encounter Care Teams Modeling And Simulation Analyst Relationship Specialty Start Date End Date No Ref-Primary, Physician PCP - General 07/03/14 12/03/21 documented as of this encounter
--- OUTSIDE RECORDS SUMMARY | 2022-03-22 14:01 | XMS_ITS | Encounter Summary ---
:1960 Author Organization [place] Address [address] [place] [address] Care Team Providers Name Role Phone Unavailable [...] RESULTS Atrial Rate 111 BPM RADIOLOGY RESULTS MS Interval 158 ms RADIOLOGY RESULTS QRS Duration 102 ms RADIOLOGY RESULTS QT 344 ms RADIOLOGY RESULTS QTc 467 ms RADIOLOGY RESULTS P [place] 55 degrees RADIOLOGY RESULTS R AXIS -7 degrees RADIOLOGY RESULTS T [place] 56 degrees RADIOLOGY RESULTS Interpretation AGE AND [...] Time MRSA-Contact IsolationComment: 0 04/26/2021 11:03 AM VENTILATOR SPECIALIST Infection erroneous documented as of this encounter
--- OUTSIDE RECORDS SUMMARY | 2022-03-22 14:01 | XMS_ITS | Encounter Summary ---
:1960 Author Organization [place] Address [facility] [place] [address] Care Team Providers Name Role Phone No Ref-Primary, Physician Primary Care Provider [phone] Juan Farias MD Unavailable Edilia Trejo APRN RAIL DIRECTOR Unavailable Glendy vailable Juan Farias MD Unavailable Denise Connell-C Unavailable [phone] Edilia Trejo APRN RAIL DIRECTOR Unavailable Glendy vailable Denise Connell-C Unavailable [phone] Juan Farias MD Primary Care Provider Dana Barry PA-C Unavailable [phone] Encounter Details Date Type Department Care Team Description 09/19/2008 Office Visit-[facility] Heart Juan Farias MD [address] [place] [address] [place] [address] [phone] Social History Tobacco Use Types Packs/Day Years [...] Physician: JEROME MORENO Referring Clinic: [facility] CURRENT DIAGNOSES 1. - Hypercholesterolemia, 272.0 2. 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; Sexual Activity - sexually active; Residence - lives with female partner; Place of - [place]; Hours Worked - 40 hours per week [...] Time MRSA-Contact IsolationComment: 0 04/26/2021 11:03 AM FRAME SAMPLE AND PATTERN SUPERVISOR Infection erroneous MRSA 05/13/2021 05/13/2021 Rule Out C-difficile 12/06/2021 12/06/2021 12/07/2021 8:46 AM CDT documented as of this encounter Care Teams Centerless Grinder Operator Relationship Specialty Start Date End Date No Ref-Primary, PCP - General 07/03/14 12/03/21 Physician Juan Farias MD PCP - General Cardiovascular Disease 12/04/21 [address] [place] [address] Juan Farias MD Assigned Heart and 02/14/20 10/03/20 [address] Vascular Provider [address] [place] [address] Maya, Assigned Heart and 10/04/20 Edilia Chapman APRN Vascular Provider RAIL DIRECTOR NO INFO AVAILABLE 02/10/2022 Juan Farias MD Assigned Heart and 04/04/21 07/31/21 [address] Vascular Provider [address] [place] [id number] Denise Connell Physician Mental Health Nurse Practitioner Cardiovascular Disease 08/12/21 MARIETTA Watson [address] [place] [phone] Maya, Assigned Heart and 08/01/21 2 Edilia Chapman APRN Vascular Provider RAIL DIRECTOR NO INFO AVAILABLE 02/10/2022 Denise Connell Assigned Heart and 08/22/21 01/14/22 MARIETTA Watson Vascular Provider [address] [place] [address] Dana Barry Assigned Heart and 01/15/22 MARIETTA Teague Vascular Provider [address] [place] [address] documented as of this encounter
--- OUTSIDE RECORDS SUMMARY | 2022-03-22 14:01 | XMS_ITS | Encounter Summary ---
:1960 Author Organization [place] Address [address] [place] [address] Care Team Providers Name Role Phone Unavailable Primary Care Provider Unavailable Encounter Details Date Type Department Care Team Description 09/08/2008 Historic Results INTERFACED REPORT Marie Orozco MD EMERGENCY PHYSIC IARACHEL MCKOY [address] [place], [place] [address] (Wo rk) Social History [...] (FL, RH, SH) (09/08/2008 6:48 PM CDT) [facility] Method Time Signature Amphetamine Qual Negative [...] with platelets differential (09/08/2008 6:40 PM CDT) [facility] gist Method Time Signature MCV 99 [...] Time MRSA-Contact IsolationComment: 0 04/26/2021 11:03 AM COOK SPECIALTY FOREIGN FOOD Infection erroneous documented as of this encounter
--- OUTSIDE RECORDS SUMMARY | 2022-03-22 14:01 | XMS_ITS | Encounter Summary ---
:1960 Author Organization [place] Address [address] [place] [address] Care Team Providers Name Role Phone Unavailable Primary Care Provider Unavailable Encounter Details Date Type Department Care Team Description 09/15/2008 Historic Results INTERFACED REPORT Jace Forrest MD [place] [address] Social History Tobacco Use Types Packs/Day Years [...] with platelets differential (09/15/2008 4:18 PM CDT) [facility] Method Time Signature MCV 100 78 - [...] BLOOD ORDERABLES Performing Organization Address City/[facility] Phon e Number MISYS (ABNORMAL) Comprehensive metabolic [...] BLOOD ORDERABLES Performing Organization Address City/[facility] Phon e Number MISYS documented in this encounter Visit Diagnoses Not on filedocumented in this encounter Additional Health Concerns Infection Onset Date Last Indicated Resolved Time MRSA-Contact IsolationComment: 0 04/26/2021 11:03 AM GAS METER MECHANIC Infection erroneous documented as of this encounter
--- OUTSIDE RECORDS SUMMARY | 2022-03-22 14:01 | XMS_ITS | Encounter Summary ---
:1960 Author Organization [place] Address [address] [place] [address] Care Team Providers Name Role Phone Unavailable [...] as of this encounter Progress Notes Interface, Benefits Coordinator - 07/11/2010 6:10 AM CDT SW: Met [...] if he chooses to do so. x [phone] [Signature] Author: Mai López (MOLD FILLING OPERATOR) [Signed 09:41] Interface, Benefits Coordinator - 07/11/2010 6:08 AM CDT BRIEF NUTRITION ASSESSMENT REASON FOR ASSESSMENT: NUTRITION SCREEN N/V/D No nutrition problem identified at this time. Ht: 69 Wt: 81.6kg IBW: 72.7kg Weight stable Tolerating Regular diet. Intake good. Reviewed labs; Cr 2.09 -elevated, likely d/t dehydration Nutritional status does not appear to be compromised. Will re-evaluate in 7 days (or sooner if condition changes). [Signature] Author: NIRMALA LAND (RD, LD) [Signed 14:34] documented in this encounter Plan of Treatment Not on filedocumented as of this encounter Visit Diagnoses Not on filedocumented in this encounter Additional Health Concerns Infection Onset Date Last Indicated Resolved Time MRSA-Contact IsolationComment: 0 04/26/2021 11:03 AM MOTORCYCLE DESIGNER Infection erroneous documented as of this encounter
--- OUTSIDE RECORDS SUMMARY | 2022-03-22 14:01 | XMS_ITS | Encounter Summary ---
:1960 Author Organization [place] Address [address] [place] [address]. [place] [address] Care Team Providers Name Role Phone Unavailable Primary Care Provider Unavailable Encounter Details Date Type Department Care Team Description 07/15/2008 Consultation [facility] Flakita Walls, Hospital Results [facility] [place] [address] (Wo rk) Social History Tobacco Use Types [...] DEPENDENCY ASSESSMENT EVALUATION COUNSELOR: CHRISTIE Ruiz. ADDRESS: [address] [place] [address] 10/28/2006. PHONE: [phone] STATISTICS: Age: 47. Sex: Male. Marital Status: Single. REFERRAL: [facility] MS3. REASON FOR EVALUATION: An evaluation [...] is a functional vulnerable adult according to [place] statute 626.5572, subdivision 21, due to his hospitalization. IMPRESSION: AXIS I: 303.9. AXIS II: Deferred. AXIS III: Deferred. AXIS IV: Most of his friends use. [place] V: 47. LEVEL OF CARE: 1. Intoxication [...] he do outpatient chemical dependency treatment in [place]. He is refusing treatment at this time. INITIAL PROBLEM LIST: He lacks understanding and coping skills. Chemical dependency issues. Electronically signed on 07/23/2008 16:09 by CHRISTIE RUIZ MT: [id number] Name: ELIJAH BROWN MRN: [id number] Account: [id number] : 1960 Consult Date: 07/15/2008 Document: [id number] documented in this encounter Plan of Treatment Not on filedocumented as of this encounter Visit Diagnoses Not on filedocumented in this encounter Additional Health Concerns Infection Onset Date Last Indicated Resolved Time MRSA-Contact IsolationComment: 0 04/26/2021 11:03 AM RECRUITER SPECIALIST Infection erroneous documented as of this encounter
--- OUTSIDE RECORDS SUMMARY | 2022-03-22 14:01 | XMS_ITS | Encounter Summary ---
:1960 Author Organization [place] Address [address] [place] [address] Care Team Providers Name Role Phone Unavailable [...] as of this encounter Progress Notes Interface, Concrete Laborer - 07/11/2010 5:59 AM CDT Routine EEG completed on an adult in patient. [facility] has been notified to read. [Signature] Author: Kia Le (Tech) [Signed 16:01] documented in this encounter Plan of Treatment Not on filedocumented as of this encounter Visit Diagnoses Not on filedocumented in this encounter Additional Health Concerns Infection Onset Date Last Indicated Resolved Time MRSA-Contact IsolationComment: 0 04/26/2021 11:03 AM BUS GREASER Infection erroneous documented as of this encounter
--- OUTSIDE RECORDS SUMMARY | 2022-03-22 14:01 | XMS_ITS | Encounter Summary ---
:1960 Author Organization [place] Address [address] [place] [address] Care Team Providers Name Role Phone Unavailable [...] RESULTS Atrial Rate 81 BPM RADIOLOGY RESULTS [place] Interval 142 ms RADIOLOGY RESULTS QRS Duration 112 ms RADIOLOGY RESULTS QT 342 ms RADIOLOGY RESULTS QTc 397 ms RADIOLOGY RESULTS P [place] 38 degrees RADIOLOGY RESULTS R AXIS -8 degrees RADIOLOGY RESULTS T [place] 42 degrees RADIOLOGY RESULTS Interpretation AGE AND [...] Time MRSA-Contact IsolationComment: 0 04/26/2021 11:03 AM ENDOSCOPY REGISTERED NURSE Infection erroneous documented as of this encounter
--- OUTSIDE RECORDS SUMMARY | 2022-03-22 14:01 | XMS_ITS | Encounter Summary ---
:1960 Author Organization [place] Address [address] [place] [address] Care Team Providers Name Role Phone Unavailable Primary Care Provider Unavailable Encounter Details Date Type Department Care Team Description 07/19/2008 Discharge Summary [facility] Kendall Garcia (Garage Mechanic) [facility] MD Raghu Results [facility] [address] [facility] [address] [place], [place] [address] Social History Tobacco Use [...] MD MT: [id number] Name: ELIJAH BROWN Account: [id number] : 1960 Admit Date: Discharge Date: 07/19/2008 Document: [id number] documented in this encounter Plan of Treatment Not on filedocumented as of this encounter Visit Diagnoses Not on filedocumented in this encounter Additional Health Concerns Infection Onset Date Last Indicated Resolved Time MRSA-Contact IsolationComment: 0 04/26/2021 11:03 AM CURAM DEVELOPER Infection erroneous documented as of this encounter
--- OUTSIDE RECORDS SUMMARY | 2022-03-22 14:01 | XMS_ITS | Encounter Summary ---
:1960 Author Organization [place] Address [address] [place] [address] Care Team Providers Name Role Phone Unavailable Primary Care Provider Unavailable Encounter Details Date Type Department Care Team Description 03/13/2009 Admission [facility]P [facility] Kaiden Weaver (Crepe Maker) [facility] MD Ranjit Results [address] [place] [address] (Wo rk) Social History Tobacco Use Types Packs/Day Years Used Date Smoking Tobacco: Never Alcohol Use Standard Drinks/Week Comments Yes 0 (1 standard drink = 0.6 oz pure alcoho l) socially approx 5 drinks/wk Sex Assigned at Date Recorded Not on file documented as of this encounter Progress Notes Kaiden Weaver - 03/14/2009 7:20 AM SPRINKLER IRRIGATION EQUIPMENT MECHANIC FINAL CHIEF COMPLAINT: Generalized weakness. HISTORY OF [...] requested and he was evaluated by a policy manager. The patient was started on IV fluid [...] oxygen saturation 99% on assisted control. HEENT: [place] conjunctivae, nonicteric sclerae. Atraumatic, normocephalic. NECK: Supple. [...] ROSHNI#[id number] Name: ELIJAH BROWN MRN: [id number] Account: [id number] : 1960 Admitted: [id number] Document: [id number] NKLER IRRIGATION EQUIPMENT MECHANIC documented in this encounter Plan of Treatment Not on filedocumented as of this encounter Visit Diagnoses Not on filedocumented in this encounter Additional Health Concerns Infection Onset Date Last Indicated Resolved Time MRSA-Contact IsolationComment: 0 04/26/2021 11:03 AM SPRINKLER IRRIGATION EQUIPMENT MECHANIC Infection erroneous documented as of this encounter
--- OUTSIDE RECORDS SUMMARY | 2022-03-22 14:01 | XMS_ITS | Encounter Summary ---
:1960 Author Organization [place] Address [address] [place] [address] Care Team Providers Name Role Phone Unavailable Primary Care Provider Unavailable Encounter Details Date Type Department Care Team Description 07/18/2008 Historic Results [facility] Yrn Voss, [facility] [address] [place], [place] [address] [address] [address] [place] [address] (Wo rk) Social History Tobacco Use Types [...] Time MRSA-Contact IsolationComment: 0 04/26/2021 11:03 AM FISH FRYER Infection erroneous documented as of this encounter
--- OUTSIDE RECORDS SUMMARY | 2022-03-22 14:02 | XMS_ITS | Encounter Summary ---
:1960 Author Organization [place] Address [address] [place] [address] Care Team Providers Name Role Phone Unavailable Primary Care Provider Unavailable Reason for Visit Reason Onset Date Comments Refill Request 12/06/2006 Lisinopril Encounter Details Date Type Department Care Team Description 12/06/2006 Refill [facility] Julius Welsh MD Refill Request Clinic [address] (Lisinopril) [address] [place] [address] [phone] Social History Tobacco Use Types Packs/Day Years Used Date Smoking Tobacco: Never Alcohol Use Standard Drinks/Week Comments Yes 0 (1 standard drink = 0.6 oz pure alcoho l) socially approx 5 drinks/wk Sex Assigned at Date Recorded Not on file documented as of this encounter Miscellaneous Notes Telephone Encounter - Meghan Ballard - 12/06/2006 3:58 PM CDT Last office visit: [id number] Reason for visit: hemorrhoid Date last filled: [id number] Last 2 BP Readings: Date: BP: 08/10/2006 [...] Time MRSA-Contact IsolationComment: 0 04/26/2021 11:03 AM CENTER DIRECTOR LEAD TEACHER Infection erroneous documented as of this encounter
--- OUTSIDE RECORDS SUMMARY | 2022-03-22 14:02 | XMS_ITS | Encounter Summary ---
:1960 Author Organization [place] Address [address] [place] [address] Care Team Providers Name Role Phone Unavailable Primary Care Provider Unavailable Encounter Details Date Type Department Care Team Description 09/27/2006 Admission H&P M [facility] Amna Austin (Critical Care Physician) Clinic [place] MD Fina [address] [place], [place] CLINIC [address] [phone] [place], [place] [address] (Wo rk) Social History [...] [place] in [place] area and did not have any problems [...] food intolerance that he notices is with Chinese food. Over the weekend he was drinking beer as well as hard liquor. He was drinking more than he usually does. When he got back from the fishing trip, he said that he felt shaky. He says that he does normally drink 2-3 drinks of hard liquor daily. He denies requiring an e ye coding consultant. He did try to cut back after [...] withdrawal symptoms. He was discharged from the [facility] July of 2006 and was advised [...] MD MT: [id number] Name: ELIJAH BROWN Account: [id number] : 1960 Admitted: [id number] Document: [id number] documented in this encounter Plan of Treatment Not on filedocumented as of this encounter Visit Diagnoses Not on filedocumented in this encounter Additional Health Concerns Infection Onset Date Last Indicated Resolved Time MRSA-Contact IsolationComment: 0 04/26/2021 11:03 AM SENIOR CUSTOMER SERVICE REPRESENTATIVE Infection erroneous documented as of this encounter
--- OUTSIDE RECORDS SUMMARY | 2022-03-22 14:02 | XMS_ITS | Encounter Summary ---
:1960 Author Organization [place] Address [address] [place] [address] Care Team Providers Name Role Phone Unavailable Primary Care Provider Unavailable Reason for Referral Specialty Diagnoses / Procedures Referred By Contact Refer red To Contact Tristan Egan ph, [place] [id number] [place] [address] Referral ID Status Reason Start Date Expiration Date Visits Requ ested Visits Authorized Encounter Details Date Type Department Care Team Description 11/03/2006 Orders Only [facility] Tristan Egan SIS NOT YET Clinic [place] MD DEFINED (Primary Dx) [address] [facility] [place] [address] [place] [address] [phone] Social History Tobacco Use Types Packs/Day Years [...] Time MRSA-Contact IsolationComment: 0 04/26/2021 11:03 AM TEXTILE WORKER Infection erroneous documented as of this encounter
--- OUTSIDE RECORDS SUMMARY | 2022-03-22 14:02 | XMS_ITS | Encounter Summary ---
:1960 Author Organization [place] Address [address] [place] [address] Care Team Providers Name Role Phone Unavailable Primary Care Provider Unavailable Reason for Visit Reason Onset Date Comments Refill Request 05/08/2007 omeprazole Encounter Details Date Type Department Care Team Description 05/08/2007 Refill [facility] Julius Welsh MD Refill Request Clinic [address] (omeprazole) [address] [place] [address] [phone] Social History Tobacco Use Types Packs/Day Years [...] Medication approved per standing orders/Leatha Lua RN TRICAL AND INSTRUMENT TECHNICIAN documented in this encounter Plan of Treatment Not on filedocumented as of this encounter Visit Diagnoses Diagnosis Hemorrhage of gastrointestinal tract, un specified documented in this encounter Additional Health Concerns Infection Onset Date Last Indicated Resolved Time MRSA-Contact IsolationComment: 0 04/26/2021 11:03 AM ELECTRICAL AND INSTRUMENT TECHNICIAN Infection erroneous documented as of this encounter
--- OUTSIDE RECORDS SUMMARY | 2022-03-22 14:02 | XMS_ITS | Encounter Summary ---
:1960 Author Organization [place] Address [address] [place] [address] Care Team Providers Name Role Phone Unavailable Primary Care Provider Unavailable Reason for Visit Reason Comments RECHECK Patient here for recheck and refill on omeprozole and has some questions about the valium and how its working Encounter Details Date Type Department Care Team Description 01/17/[address] [facility] Julius Welsh, Unspecif ied, Hemorrhage of Gastrointestinal Tract; Clinic [place] Delirium Tremens, Alcohol Withdrawal Ind ed [address] [place] [address] [place] [address] [place], [place] [phone] [address] Social History Tobacco Use Types Packs/Day Years [...] 01/17/2008 1:00 PM CDT >> TC OMER [facility] Jan 17, 2008 1:11 PM Patient [...] Time MRSA-Contact IsolationComment: 0 04/26/2021 11:03 AM PARIMUTUEL CLERK Infection erroneous documented as of this encounter
--- OUTSIDE RECORDS SUMMARY | 2022-03-22 14:02 | XMS_ITS | Encounter Summary ---
:1960 Author Organization [place] Address [address] [place] [address] Care Team Providers Name Role Phone Unavailable Primary Care Provider Unavailable Reason for Visit Reason Onset Date Comments Refill Request 11/13/2006 OMEPRAZOLE Encounter Details Date Type Department Care Team Description 11/13/2006 Refill [facility] Ref ill Request (OMEPRAZOLE) [place] [phone] Social History Tobacco Use Types Packs/Day [...] Time MRSA-Contact IsolationComment: 0 04/26/2021 11:03 AM CAPACITY ANALYST Infection erroneous documented as of this encounter
--- OUTSIDE RECORDS SUMMARY | 2022-03-22 14:02 | XMS_ITS | Encounter Summary ---
:1960 Author Organization [place] Address [address] [place] [address] Care Team Providers Name Role Phone Unavailable Primary Care Provider Unavailable Reason for Visit Reason Onset Date Comments Medication Question 11/09/2007 omeprazole dosing Encounter Details Date Type Department Care Team Description 11/09/2007 Telephone [facility] Julius Welsh MD Medication Question Clinic [address] (omeprazole dosing) [address] [place] [phone] (Wo rk) Social History Tobacco [...] Time MRSA-Contact IsolationComment: 0 04/26/2021 11:03 AM FLASK FITTER Infection erroneous documented as of this encounter
--- OUTSIDE RECORDS SUMMARY | 2022-03-22 14:02 | XMS_ITS | Encounter Summary ---
:1960 Author Organization [place] Address [address] [place] [address] Care Team Providers Name Role Phone Unavailable Primary Care Provider Unavailable Encounter Details Date Type Department Care Team Description 09/27/2006 Results Only [facility] Liudmila Austin [facility] Results MD Fina [facility] [address] [place], [place] [address] (Wo rk) Social History [...] Time MRSA-Contact IsolationComment: 0 04/26/2021 11:03 AM UNSTACKER Infection erroneous documented as of this encounter
--- OUTSIDE RECORDS SUMMARY | 2022-03-22 14:02 | XMS_ITS | Encounter Summary ---
:1960 Author Organization [place] Address [address] [place] [address] Care Team Providers Name Role Phone Unavailable [...] as of this encounter Progress Notes Interface, Golf Club Assembler - 07/12/2010 2:39 PM CDT SWS D: received MD order to see regarding discharge planning. Chart reviewed, noted hx ETOH use and CD evaluation pending. Noted MD note from today anticipating out-pt CD services. SWS to continue to follow, assist as needed with services arrangemnets a based on CD evaluation. [Signature] Author:Angela Berumen (PSYCH ASSISTANT) [Signed 29-Sep-2006 13:11] Interface, Golf Club Assembler - 07/12/2010 2:38 PM CDT Patient Status Patient Status - Physical status Stable (s/s of potential complications absent or manageable) - Psychosocial status Stable Discharge Planning - Discharge From: [facility] - Patient Care Unit: Med-Surg 2 - [...] Egan - Phone number of who patient [phone] should call: - Other Special Care Needs: Follow up with outpatient chemical dependency treatment. Follow Up Care - Physician name: Dr. Anderson ([phone]) - When to see physician: 2-3 weeks Signatures Sis Hernandez (RN) Authored: Patient Status, Discharge Planning, Discharge Information, Medications and Prescriptions, Support Services, Special Care Needs and Instructions, Follow Up Care Interface, Golf Club Assembler - 07/12/2010 2:38 PM CDT SWS D: Spoke with RN who informs that CD records and tape recordings engineer has not been here to consult with pt. Per her discussion with MD it was requested that SWS talk with pt about CD resources, out-pt services prior to his dicsharge. SWS visit with pt was brief, pt standing at the door of his room waiting to leave, I am already an hour late. SWS presented pt with the information ( [employer] CD out-pt brochure and #, community resources) and strongly encouraged his follow-up. Pt accepted information and quickly left the unit. A: With brief intervention due to pt's desire to leave, unable to fully assess additional needs, support. P: No further SWS. [Signature] Author:Angela Berumen (FLOR) [Signed 29-Sep-2006 16:11] Interface, Golf Club Assembler - 07/12/2010 2:37 PM CDT Patient restless [...] eval was order 09/28/06 at 9AM. This singer songwriter attempted to contact the office of the asphalt mixer by both phone and pager for total of 6 attempts. environmental services floor tech also had the intake office try to contact the asphalt mixer. Patient appeared to be about to leave AMA due to the lateness or the day and the CD eval not completed yet. Dr. Egan notified and order received to give patient outpatient CD treatment resources. environmental services floor tech was informed and completed referral. Patient abruptly [...] Time MRSA-Contact IsolationComment: 0 04/26/2021 11:03 AM BEVELER Infection erroneous documented as of this encounter
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
--- OUTSIDE RECORDS SUMMARY | 2022-03-22 14:02 | XMS_ITS | Encounter Summary ---
:1960 Author Organization [place] Address [address] [place] [address] Care Team Providers Name Role Phone Unavailable Primary Care Provider Unavailable Encounter Details Date Type Department Care Team Description 08/03/2006 Historic Results [facility] Nany Austin Sagamore [place] [address] [place], [place] CLINIC [address] [phone] [place], [place] [address] (Wo rk) Social History [...] LAB - BLOOD ORDERABLES Performing Organization Address [facility] Phon e Number MISYS (ABNORMAL) Calcium ionized (08/03/2006 7:55 PM CDT) athologist Signature Calcium 3.5 (L) 4.4 - 5.2 MISYS Ionized mg/dL Specimen Anatomical Collection Method Collection Time Receive d Time (Source) Location / / Volume Laterality 08/03/2006 7:55 PM 7 8:00 CDT PM CDT Liudmila Austin MD LAB - BLOOD ORDERABLES Performing Organization Address [facility] Phon e Number MISYS Transfuse RBC (08/03/2006 11:18 AM CDT) [facility] Method Time Signature RED BLOOD CELL Order MISYS ORDER received Comment: Check for Allocated/OK to Umanzor sfuse units Specimen Anatomical Collection Method Collection Time Receive d Time (Source) Location / / Volume Laterality 08/03/2006 11:18 08/03/2006 AM CDT 11:22 AM CDT Liudmila Austin MD LAB - BLOOD BANK PRODUCT O RDER Performing Organization Address [facility] Phon e Number MISYS INR (08/03/2006 10:45 AM CDT) athologist Signature INR 1.01 0.86 - 1.14 MISYS Specimen Anatomical Collection Method Collection Time Receive d Time (Source) Location / / Volume Laterality 08/03/2006 10:45 08/03/2006 AM CDT 10:25 AM CDT Parminder Cade PA-C LAB - BLOOD ORDERABLES Performing Organization Address [facility] Phon e Number MISYS Transfuse RBC (08/03/2006 10:41 AM CDT) [facility] gist Method Time Signature RED BLOOD CELL Order MISYS ORDER received Comment: Check for Allocated/OK to Umanzor sfuse units Specimen Anatomical Collection Method Collection Time Receive d Time (Source) Location / / Volume Laterality 08/03/2006 10:41 08/03/2006 6:37 AM CDT AM CDT Julius Welsh MD LAB - BLOOD BANK PRODUCT ORD ER Performing Organization Address [facility] Phon e Number MISYS (ABNORMAL) Lipase (08/03/2006 9:55 AM CDT) P athologist Signature Lipase 3259 (H) 20 - 250 MISYS U/L Comment: Specimen run with a dilution Specimen Anatomical Collection Method Collection Time Receive d Time (Source) Location / / Volume Laterality 08/03/2006 9:55 AM 7 CDT 10:00 AM CDT Liudmila Austin MD LAB - BLOOD ORDERABLES Performing Organization Address [facility] Phon e Number MISYS (ABNORMAL) Amylase (08/03/2006 9:55 AM CDT) P athologist Signature Amylase 166 (H) 30 - 110 MISYS U/L Specimen Anatomical Collection Method Collection Time Receive d Time (Source) Location / / Volume Laterality 08/03/2006 9:55 AM 7 CDT 10:00 AM CDT Liudmila Austin MD LAB - BLOOD ORDERABLES Performing Organization Address [facility] Phon e Number MISYS (ABNORMAL) Hemogram [...] Absolute Lymphocytes 1.4 0.8 - 5.3 10e9/L [place] SYS Absolute Monocytes 0.8 0.0 - 1.3 10e9/L MISY S Absolute Eosinophils 0.3 0.0 - 0.7 10e9/L [place] SYS Absolute Basophils 0.0 0.0 - 0.2 [...] read back jessica COMBS(RN) ON MS3 @ 0757 ON 08.03.06 KA Anion Gap 13 6 - 17 mmol/L MISYS Specimen (Source) Anatomical Collection Method Collection Time Re ceived Time Location / / Volume Laterality 08/03/2006 5:55 AM 7 CDT Julius Welsh MD LAB - BLOOD ORDERABLES Performing Organization Address City/State/ZIP Code Phon e Number MISYS Histopathology (08/03/2006 12:00 AM CDT) Component Value Ref Test Analysis Performed At [facility] gist Range Method Time Signature Copath CASE: [id number] ^ COPATH Report Patient Name: SARAH BETH BROWN MR#: [id number] Specimen #: [id number] Collected: 08/03/2006 Received: 08/03/2006 Reported: 08/04/2006 15:09 [...] is present. KARLEE/kalina 08-04-06 TESTING LAB LOCATION: [facility] [address] [place] [place], [place] ??[address] COLLECTION SITE: Client: [facility] Location: MS3 (R) Specimen (Source) Anatomical Collection [...] Time MRSA-Contact IsolationComment: 0 04/26/2021 11:03 AM SAIL CUTTER Infection erroneous documented as of this encounter
--- OUTSIDE RECORDS SUMMARY | 2022-03-22 14:02 | XMS_ITS | Encounter Summary ---
:1960 Author Organization [facility] Address [address] [place] [address] Care Team Providers Name Role Phone Unavailable Primary Care Provider Unavailable Encounter Details Date Type Department Care Team Description 07/15/2008 Results Only [facility] Andrea Forrest, Hospital Results [place] [address] Social History Tobacco Use Types Packs/Day Years [...] Time MRSA-Contact IsolationComment: 0 04/26/2021 11:03 AM BANQUET PILOT Infection erroneous documented as of this encounter
--- OUTSIDE RECORDS SUMMARY | 2022-03-22 14:02 | XMS_ITS | Encounter Summary ---
:1960 Author Organization [place] Address [address] [place] [address] Care Team Providers Name Role Phone Unavailable Primary Care Provider Unavailable Encounter Details Date Type Department Care Team Description 09/27/2006 Emergency room [facility] [address] [place] [address] Social History Tobacco Use Types Packs/Day Years Used Date Smoking Tobacco: Never Alcohol Use Standard Drinks/Week Comments Yes 0 (1 standard drink = 0.6 oz pure alcoho l) socially approx 5 drinks/wk Sex Assigned at Date Recorded Not on file documented as of this encounter Progress Notes Interface, Applications Developer - 09/30/2006 8:16 AM CDT FINAL CHIEF [...] MD MT: [id number] Name: ELIJAH BROWN Account: [id number] : 1960 Visit Date: 09/27/2006 Document: [id number] cc: Tristan Ferrera MD documented in this encounter Plan of Treatment Not on filedocumented as of this encounter Visit Diagnoses Not on filedocumented in this encounter Additional Health Concerns Infection Onset Date Last Indicated Resolved Time MRSA-Contact IsolationComment: 0 04/26/2021 11:03 AM SPOOL SANDER Infection erroneous documented as of this encounter
--- OUTSIDE RECORDS SUMMARY | 2022-03-22 14:02 | XMS_ITS | Encounter Summary ---
:1960 Author Organization [place] Address [address] [place] [address] Care Team Providers Name Role Phone Unavailable [...] as of this encounter Progress Notes Interface, Beef Breaker - 07/12/2010 5:37 PM CDT Hgb 7.3, [...] 11:03 AM CORRECTIONAL CASE MANAGER Infection erroneous documented as of this encounter
--- OUTSIDE RECORDS SUMMARY | 2022-03-22 14:02 | XMS_ITS | Encounter Summary ---
:1960 Author Organization [place] Address [address] [place] [address] Care Team Providers Name Role Phone Unavailable Primary Care Provider Unavailable Encounter Details Date Type Department Care Team Description 09/28/2006 Results Only [facility] Ruben Anderson MD Hospital Results XXX RETIRED XXX [address] [place], [place] [address] (Wo rk) Social History [...] Time MRSA-Contact IsolationComment: 0 04/26/2021 11:03 AM CLOTH PACKER Infection erroneous documented as of this encounter
--- OUTSIDE RECORDS SUMMARY | 2022-03-22 14:02 | XMS_ITS | Encounter Summary ---
:1960 Author Organization [place] Address [address] [place] [address] Care Team Providers Name Role Phone Unavailable [...] as of this encounter Progress Notes Interface, Ethylene Oxide Panelboard Operator - 07/12/2010 5:34 PM CDT Patient Status Patient Status Physical status - Stable (s/s of potential complications absent or manageable) Psychosocial status - Stable Discharge Planning Discharge From [facility] Patient Care Unit - MS3 PCU Phone Number - [phone] Discharge To - Home Phone number after discharge - [phone] Method of discharge - Wheel Chair Transportation [...] Instructions Diet Instructions - As instructed by post hole digger-follow diet sheet Activity Instructions - as tolerated make sure to rest Report temp if greater than degrees F - 101 degrees F Signs or symptoms to call the physician - bloody stools, black stools, increased abdominal pain, emesis Follow Up Care Physician name - Dr. Welsh or Dr. Austin When to see physician - next week Signatures PALUO LOERA (RN) Author: - Patient Status, Discharge [...] MRSA-Contact IsolationComment: 0 04/26/2021 11:03 AM SENIOR LICENSING MANAGER Infection erroneous documented as of this encounter
--- OUTSIDE RECORDS SUMMARY | 2022-03-22 14:02 | XMS_ITS | Encounter Summary ---
:1960 Author Organization [facility] Address [address] [place] [address] Care Team Providers Name Role Phone Unavailable Primary Care Provider Unavailable Encounter Details Date Type Department Care Team Description 08/04/2006 Historic Results [facility] Nany Austin Glenvil MD [place] [address] [place], [place] CLINIC [address] [phone] [place], [place] [address] (Wo rk) Social History [...] (08/04/2006 6:45 AM CDT) [facility] Time Signature Sodium 141 133 - [...] Time MRSA-Contact IsolationComment: 0 04/26/2021 11:03 AM BILLING TYPIST Infection erroneous documented as of this encounter
--- OUTSIDE RECORDS SUMMARY | 2022-03-22 14:02 | XMS_ITS | Encounter Summary ---
:1960 Author Organization [place] Address [address] [place] [address] Care Team Providers Name Role Phone Unavailable Primary Care Provider Unavailable Encounter Details Date Type Department Care Team Description 09/27/2006 Historic Results [facility] Horace Egan [place] MD Navin [address] [place] [id number] [phone] (Wo rk) Social History Tobacco Use Types [...] LAB - URINE ORDERABLES Performing Organization Address [facility] Code Phon e Number MISYS (ABNORMAL) Routine UA with microscopic (09/27/2006 11:20 AM CDT) [facility] Method Time Signature Source Midstream MISYS Urine Color Urine Yellow MISYS Appearance Urine Clear MISYS Glucose Urine Negative NEG mg/dL MISYS Bilirubin Urine Negative NEG MISYS Ketones Urine 5 (A) NEG mg/dL MISYS Specific Quail 1.011 1.003 - MISYS Urine 1.035 Blood [...] LAB - URINE ORDERABLES Performing Organization Address [facility] Phon e Number MISYS C difficile culture (09/27/2006 11:20 AM CDT) [facility] Method Time Signature Specimen Feces MISYS Descrip C Difficile No Clostridium MISYS Culture difficile isolated Specimen Anatomical Collection Method Collection Time Receive d Time (Source) Location / / Volume Laterality 09/27/2006 11:20 09/27/2006 AM CDT 11:58 AM CDT Tristan Egan MD LAB - MICRO GENERAL ORDERABL ES Performing Organization Address [facility]/ZIP Code Phon e Number MISYS C differential toxin A (09/27/2006 11:20 AM CDT) [facility] Method Time Signature Specimen Feces MISYS Description C difficile Negative for MISYS Toxin A Clostridium Toxin A Specimen Anatomical Collection Method Collection Time Receive d Time (Source) Location / / Volume Laterality 09/27/2006 11:20 09/27/2006 AM CDT 11:58 AM CDT Tristan Egan MD LAB - STOOLS ORDERABLES Performing Organization Address [facility] Phon e Number MISYS Ova and parasites (09/27/2006 11:20 AM CDT) Component Value Ref Test Analysis Performed At [facility] gist Range Method Time Signature Specimen Feces MISYS Description Micro Report FINAL [id number] MISYS Status Parasite Routine MISYS Routine parasitology exam negative Comment: Rare PMNs seen Specimen received in preservative Specimen Anatomical Collection Method Collection Time Receive d Time (Source) Location / / Volume Laterality 09/27/2006 11:20 09/27/2006 AM CDT 11:58 AM CDT Tristan Egan MD LAB - MICRO GENERAL ORDERABL ES Performing Organization Address [facility] Phon e Number MISYS Stool culture SSCE (09/27/2006 11:20 AM CDT) Component Value Ref Test Analysis Performed At [facility] gist Range Method Time Signature Specimen Feces MISYS Description Culture Micro No Salmonella, MISYS Shigella, Campylobacter or E coli 0:157 isolated. Micro Report FINAL [id number] MISYS Status Specimen Anatomical Collection Method Collection Time Receive d Time (Source) Location / / Volume Laterality 09/27/2006 11:20 09/27/2006 AM CDT 11:58 AM CDT Tristan Egan MD LAB - MICRO GENERAL ORDERABL ES Performing Organization Address [facility] Phon e Number MISYS Vitamin B12 [...] LAB - BLOOD ORDERABLES Performing Organization Address [facility] Phon e Number MISYS IgA (09/27/2006 9:50 AM CDT) athologist Signature IGA 198 70 - 380 MISYS mg/dL Specimen Anatomical Collection Method Collection Time Receive d Time (Source) Location / / Volume Laterality 09/27/2006 9:50 AM 7 CDT 10:00 AM CDT Liudmila Austin MD LAB - BLOOD ORDERABLES Performing Organization Address [facility]/ZIP Code Phon e Number MISYS Gliadin antibody [...] LAB - BLOOD ORDERABLES Performing Organization Address [facility] Phon e Number MISYS Tissue transglutaminase bharat IgA and IgG (09/27/2006 9:50 AM CDT) [facility] Method Time Signature Tissue <0.5 U/mL MISYS Transglutaminase Antibody IgA Comment: Interpretation: Negative Tissue Transglutaminase Bharat IgG 0.8 U/mL MISYS Comment: Interpretation: Negative Specimen Anatomical Collection Method Collection Time Receive d Time (Source) Location / / Volume Laterality 09/27/2006 9:50 AM 7 CDT 10:00 AM CDT Liudmila Austin MD LAB - BLOOD ORDERABLES Performing Organization Address [facility] Code Phon e Number MISYS TSH with free T4 reflex (09/27/2006 9:50 AM CDT) P athologist Signature TSH 1.88 0.4 - 5.0 MISYS mU/L Specimen Anatomical Collection Method Collection Time Receive d Time (Source) Location / / Volume Laterality 09/27/2006 9:50 AM 7 CDT 10:30 AM CDT Liudmila Austin MD LAB - BLOOD ORDERABLES Performing Organization Address [facility]/ZIP Code Phon e Number MISYS HIV 1 [...] LAB - BEAKER POCT Performing Organization Address City/[facility]/ZIP Code Phon e Number MISYS (ABNORMAL) Hemogram differential and platelet (09/27/2006 5:12 AM CDT) [facility] gist Method Time Signature MCV 99 [...] LAB - BLOOD ORDERABLES Performing Organization Address [facility] Phon e Number MISYS (ABNORMAL) Basic metabolic panel (09/27/2006 5:12 AM CDT) [facility] Time Signature Sodium 142 133 - 144 [...] LAB - BLOOD ORDERABLES Performing Organization Address [facility] Phon e Number MISYS (ABNORMAL) Hepatic panel (09/27/2006 5:12 AM CDT) Analysis Performed At [facility] Time Signature AST 111 (H) 0 - [...] Time MRSA-Contact IsolationComment: 0 04/26/2021 11:03 AM MOUSE BREEDER Infection erroneous documented as of this encounter
--- OUTSIDE RECORDS SUMMARY | 2022-03-22 14:02 | XMS_ITS | Encounter Summary ---
:1960 Author Organization [place] Address [address] [place] [address] Care Team Providers Name Role Phone Unavailable Primary Care Provider Unavailable Reason for Visit Reason Onset Date Comments Refill Request 11/08/2007 Omeprazole Encounter Details Date Type Department Care Team Description 11/08/2007 Refill [facility] Julius Welsh MD Refill Request Clinic [place] [address] (Omeprazole) [address] [place], [place] [address] [address] [phone] Social History Tobacco Use Types Packs/Day Years [...] MRSA-Contact IsolationComment: 0 04/26/2021 11:03 AM MANAGER CREDIT COLLECTIONS Infection erroneous documented as of this encounter
--- OUTSIDE RECORDS SUMMARY | 2022-03-22 14:02 | XMS_ITS | Encounter Summary ---
:1960 Author Organization [place] Address [address] [place] [address] Care Team Providers Name Role Phone Unavailable Primary Care Provider Unavailable Encounter Details Date Type Department Care Team Description 07/15/2008 Admission [facility] Amna Austin (Director Of Hemophilia) [facility] MD Fina Results [facility] [address] [place], [place] [address] (Wo rk) Social History [...] at work this evening. He works in [employer] and felt that he was working normally [...] rest. This past weekend, he was in [place] visiting with some high school buddies. He [...] in treatment. He denies needing an eye infection control preventionist in the morning to calm the shakes. [...] MD MT: [id number] Name: ELIJAH BROWN Account: [id number] : 1960 Admitted: [id number] Document: [id number] documented in this encounter Plan of Treatment Not on filedocumented as of this encounter Visit Diagnoses Not on filedocumented in this encounter Additional Health Concerns Infection Onset Date Last Indicated Resolved Time MRSA-Contact IsolationComment: 0 04/26/2021 11:03 AM LACQUER COATER Infection erroneous documented as of this encounter
--- OUTSIDE RECORDS SUMMARY | 2022-03-22 14:02 | XMS_ITS | Encounter Summary ---
:1960 Author Organization [place] Address [address] [place] [address] Care Team Providers Name Role Phone Unavailable Primary Care Provider Unavailable Reason for Visit Reason Onset Date Comments Erroneous encounter-disregard 01/14/2008 Encounter Details Date Type Department Care Team Description 01/14/2008 [place] [facility] Chase Dodd MD Erroneous Clinic [place] XXX RESIGNED XXX encounter-disregard [address] [place] [id number] (Wo rk) Social History Tobacco Use [...] Time MRSA-Contact IsolationComment: 0 04/26/2021 11:03 AM LAW FIRM RECEPTIONIST Infection erroneous documented as of this encounter
--- OUTSIDE RECORDS SUMMARY | 2022-03-22 14:02 | XMS_ITS | Encounter Summary ---
:1960 Author Organization [place] Address [address] [place] [address] Care Team Providers Name Role Phone Unavailable [...] as of this encounter Progress Notes Interface, Security Attendant - 07/12/2010 2:46 PM CDT General Information General Information - <R> How to be addressed Kayden - <R> Instructor Of Sociology Needed No - Source of reliable Patient information - Arrived from Home Patient Contact Information - <R> backshoe person to Selina Wells (Significant other) notify: - Contact Location: Home Local - <R> Phone 1: [phone] - Cell Advance Directive [facility] [...] Care Values/Beliefs/Spiritual Care - F: Enedina: Does Hinduism culture/spirituality/ alevism play an important part in your life? - <R> Would you like pastoral Does not wish to have anyone contacted care/clergy/financial planning advisor notified? Mutuality/Individual Preferences Mutuality/Preferences - <R> [...] Kristina erance, Values/Beliefs/Spiritual Care, Mutuality/Individual Preferences Interface, Security Attendant - 07/12/2010 2:45 PM CDT Nutrition Assessment Nutrition Assessment - Reason for assessment Admission screen Anthropometrics - Height: 5'8 1/2 - Admission weight: 77.7 kg - BMI: 26 - IBW ([place] body weight): 71.4 kg - % IBW ([place] body weight): 109% - Dosing weight: 77.7 [...] Estimated Needs Estimated Needs - Energy needs: 3828-0270 kcal (25-30 kcal/kg) - Protein needs: 78-94 gms protein (1-1.2 gm/kg) - Fluid needs: 7754-5688 mL fluid (30-35 mL/kg) Nutrition Diagnosis Nutrition [...] Time MRSA-Contact IsolationComment: 0 04/26/2021 11:03 AM COMMUNITY ENGAGEMENT SPECIALIST Infection erroneous documented as of this encounter
--- OUTSIDE RECORDS SUMMARY | 2022-03-22 14:02 | XMS_ITS | Encounter Summary ---
:1960 Author Organization [place] Address [facility] [place] [address] Care Team Providers Name Role Phone No Ref-Primary, Physician Primary Care Provider [phone] Juan Farias MD Unavailable Edilia Trejo APRN DOCK OPERATOR Unavailable Glendy vailable Juan Farias MD Unavailable Denise Connell-C Unavailable [phone] Edilia Trejo APRN DOCK OPERATOR Unavailable Glendy vailable Denise Connell-C Unavailable [phone] Juan Farias MD Primary Care Provider Dana Barry PA-C Unavailable [phone] Encounter Details Date Type Department Care Team Description 05/11/2007 Office Visit-[facility] Heart Juan Farias MD [address] [place] [address] [place] [address] [phone] Social History Tobacco Use Types Packs/Day Years [...] old Referring Physician: JEROME MORENO Referring Clinic: [facility] CURRENT DIAGNOSES 1. - Hypercholesterolemia, 272.0 2. 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 <FONT COLOR=#[id number]><FONT POINT=10>EXTREMITIES & BACK no deformities, clubbing, cyanosis, [...] Mg 1 p.o. q.d. #30 Refill <FONT COLOR=#[id number]><FONT POINT=10> IMPRESSIONS: I had the opportunity to [...] fasting lipidpanel prior to my visit. <FONT COLOR=#[id number]><FONT POINT=10> TODAYS ORDERS 1. Lipid profile/ALT 1 day 2. Return Visit 1 year 3. Lipid profile/ALT 1 year Juan Farias M.D. documented in this encounter Plan of Treatment Not on filedocumented as of this encounter Visit Diagnoses Not on filedocumented in this encounter Additional Health Concerns Infection Onset Date Last Indicated Resolved Time MRSA-Contact IsolationComment: 0 04/26/2021 11:03 AM TAG WRITER Infection erroneous MRSA 05/13/2021 05/13/2021 Rule Out C-difficile 12/06/2021 12/06/2021 12/07/2021 8:46 AM CDT documented as of this encounter Care Teams Astronomy Department Chair Relationship Specialty Start Date End Date No Ref-Primary, PCP - General 07/03/14 12/03/21 Physician Juan Farias MD PCP - General Cardiovascular Disease 12/04/21 [address] [place] [address] Juan Farias MD Assigned Heart and 02/14/20 10/03/20 [address] Vascular Provider [address] [place] [address] Maya, Assigned Heart and 10/04/20 Edilia [place] APRN Vascular Provider DOCK OPERATOR NO INFO AVAILABLE 02/10/2022 Juan Farias MD Assigned Heart and 04/04/21 07/31/21 [address] Vascular Provider [address] [place] [id number] Denise Connell Physician Manager Valuation Cardiovascular Disease 08/12/21 MARIETTA Watson [address] [place] [id number] Maya Assigned Heart and 08/01/21 2 Edilia [place] APRN Vascular Provider DOCK OPERATOR NO INFO AVAILABLE 02/10/2022 Denise Connell Assigned Heart and 08/22/21 01/14/22 MARIETTA Watson Vascular Provider [address] [place] [id number] Dana Barry Assigned Heart and 01/15/22 MARIETTA Teague Vascular Provider [address] [place] [id number] documented as of this encounter
--- OUTSIDE RECORDS SUMMARY | 2022-03-22 14:02 | XMS_ITS | Encounter Summary ---
:1960 Author Organization [place] Address [address] [place] [address] Care Team Providers Name Role Phone Unavailable Primary Care Provider Unavailable Reason for Visit Reason Onset Date Comments Refill Request 03/13/2007 lisinopril Encounter Details Date Type Department Care Team Description 03/13/2007 Refill [facility] Tristan Egan Refill Request Clinic [place] MD Navin (lisinopril) [address] [place] [phone] (Wo rk) Social History Tobacco Use Types [...] check. Ok'd PSO Korina Villasenor, RN, BSN ITIONAL CHEMIST documented in this encounter Plan of Treatment Not on filedocumented as of this encounter Visit Diagnoses Diagnosis Unspecified essential hypertension documented in this encounter Additional Health Concerns Infection Onset Date Last Indicated Resolved Time MRSA-Contact IsolationComment: 0 04/26/2021 11:03 AM NUTRITIONAL CHEMIST Infection erroneous documented as of this encounter
--- OUTSIDE RECORDS SUMMARY | 2022-03-22 14:02 | XMS_ITS | Encounter Summary ---
:1960 Author Organization [place] Address [facility] [place] [address] Care Team Providers Name Role Phone Unavailable Primary Care Provider Unavailable Encounter Details Date Type Department Care Team Description 09/28/2006 Historic Results [place] [facility] Ruben Anderson [facility] [address] [facility] RETIRED XXX [address] [place], [place] [address] [place] [address] [phone] (Wo rk) Social History Tobacco Use Types [...] to 2500 Unit: mg/d (Note) Performed by [facility], [address] [place] [address] [email or web address], ??Martin Frazier MD - Lab. Director Lead [...] LAB - BLOOD ORDERABLES Performing Organization Address [facility] Phon e Number MISYS (ABNORMAL) Hemogram differential and platelet (09/28/2006 7:03 AM CDT) [facility] Method Time Signature MCV 99 [...] Organization Address City/[facility]/ZIP Code Phon e Number MISYS (ABNORMAL) Vitamin B1 plasma (09/28/2006 7:03 AM CDT) athologist Signature Vitamin B1 4.2 (H) MISYS Comment: Reference range: 0.2 to 2.0 Unit: ug/dL (Note) Performed by [facility], [address] [place] [address] [email or web address], ??Martin Frazier MD - Lab. Director Specimen [...] and IgM screen (09/28/2006 7:03 AM CDT) [facility] Method Time Signature Specimen Serum MISYS Description [...] Time MRSA-Contact IsolationComment: 0 04/26/2021 11:03 AM SECONDS INSPECTOR Infection erroneous documented as of this encounter
--- OUTSIDE RECORDS SUMMARY | 2022-03-22 14:02 | XMS_ITS | Encounter Summary ---
:1960 Author Organization [place] Address [address] [place] [address] Care Team Providers Name Role Phone Unavailable Primary Care Provider Unavailable Reason for Visit Reason Comments Hospital F/U Encounter Details Date Type Department Care Team Description 08/10/2006 Office Visit [facility] Julius Welsh MD GASTROINTEST HEMORR NOS; Clinic [place] [address]LIP[place]EMIA [address] [facility] [place] [address] [phone] Social History Tobacco Use Types Packs/Day Years [...] Time MRSA-Contact IsolationComment: 0 04/26/2021 11:03 AM CIRCUS ROUSTABOUT Infection erroneous documented as of this encounter
--- OUTSIDE RECORDS SUMMARY | 2022-03-22 14:03 | XMS_ITS | Encounter Summary ---
:1960 Author Organization [place] Address [address] [place] [address] Care Team Providers Name Role Phone Unavailable Primary Care Provider Unavailable Reason for Visit Reason Comments Trauma eye injury Encounter Details Date Type Department Care Team Description 04/22/2003 Office Visit [facility] Tristan EganUS ION FACE/SCALP/NCK; Clinic [place] MD Navin [facility] [address] [address] [phone] Social History Tobacco Use Types Packs/Day Years Used Date Smoking Tobacco: Never Assessed Sex Assigned at Date Recorded Not on file documented as of this encounter Last Filed Vital Signs Vital Sign Reading Time Taken Comments Blood Pressure 120/78 04/22/2003 11:00 AM DEVELOPMENT ADVISOR Pulse - - Temperature - - Respiratory Rate - - Oxygen Saturation - - Inhaled Oxygen Concentration - - Weight - - Height - - Body Mass Index - - documented in this encounter Progress Notes 04/22/2003 11:00 AM DEVELOPMENT ADVISOR Puncture wound near eye with echymosis of [...] Time MRSA-Contact IsolationComment: 0 04/26/2021 11:03 AM DEVELOPMENT ADVISOR Infection erroneous documented as of this encounter
--- OUTSIDE RECORDS SUMMARY | 2022-03-22 14:03 | XMS_ITS | Encounter Summary ---
:1960 Author Organization [place] Address [address] [place] [address] Care Team Providers Name Role Phone No Ref-Primary, Physician Primary Care Provider [phone] Juan Farias MD Unavailable Edilia Trejo APRN COMMUTER TRAIN OPERATOR Unavailable Glendy vailable Juan Farias MD Unavailable Denise Connell-C Unavailable [phone] Edilia Trejo APRN COMMUTER TRAIN OPERATOR Unavailable Glendy vailable Denise Connell-C Unavailable [phone] Juan Farias MD Primary Care Provider Dana Barry PA-C Unavailable [phone] Encounter Details Date Type Department Care Team Description 08/19/2003 Office Visit-[facility] Heart Unknown, Iva lockett MD [address] [address] Social History Tobacco Use Types Packs/Day Years Used Date Smoking Tobacco: Never Assessed Sex Assigned at Date Recorded Not on file documented as of this encounter Progress Notes Unknown, DoctorMD - 08/21/2003 2:20 PM CDT Progress Note Created by: Juan Farias M.D. DATE: 08/19/2003 SARAH BETH BROWN DATE OF : 1960 AGE: [age] years old Referring Physician: JEROME MORENO Referring Clinic: [facility] CURRENT DIAGNOSES 1. 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 Electronically signed by [facility], [facility] Data Conversion at 09/06/2013 4:44 AM CDT documented in this encounter Plan of Treatment Not on filedocumented as of this encounter Visit Diagnoses Not on filedocumented in this encounter Additional Health Concerns Infection Onset Date Last Indicated Resolved Time MRSA-Contact IsolationComment: 0 04/26/2021 11:03 AM CLAIMS COLLECTOR Infection erroneous MRSA 05/13/2021 05/13/2021 Rule Out C-difficile 12/06/2021 12/06/2021 12/07/2021 8:46 AM CDT documented as of this encounter Care Teams Solderer Electronic Relationship Specialty Start Date End Date No Ref-Primary, PCP - General 07/03/14 12/03/21 Physician Juan Farias MD PCP - General Cardiovascular Disease 12/04/[address] [place] [address] Juan Farias MD Assigned Heart and 02/14/20 10/03/[address] Vascular Provider [address] [place] [address] Maya, Assigned Heart and 10/04/20 Edilia [place] APRN Vascular Provider COMMUTER TRAIN OPERATOR NO INFO AVAILABLE 02/10/2022 Juan Farias MD Assigned Heart and 04/04/21 07/31/[address] Vascular Provider [address] [place] [address] Denise Connell Physician Activated Sludge Operator Cardiovascular Disease 08/12/21 MARIETTA Watson [address] [place] [address] Maya, Assigned Heart and 08/01/21 2 Edilia [place] APRN Vascular Provider COMMUTER TRAIN OPERATOR NO INFO AVAILABLE 02/10/2022 Denise Connell Assigned Heart and 08/22/21 01/14/22 MARIETTA Watson Vascular Provider [address] [place] [id number] Dana Barry Assigned Heart and 01/15/22 MARIETTA Teague Vascular Provider [address] [place] [id number] documented as of this encounter
--- OUTSIDE RECORDS SUMMARY | 2022-03-22 14:03 | XMS_ITS | Encounter Summary ---
:1960 Author Organization [place] Address [address] [place] [address] Care Team Providers Name Role Phone Unavailable Primary Care Provider Unavailable Encounter Details Date Type Department Care Team Description 08/02/2006 Historic Results [facility] Tabitha Welsh MD [address] [phone] (W ork) [address] [phone] Social History Tobacco Use Types Packs/Day Years [...] RESULTS Atrial Rate 82 BPM RADIOLOGY RESULTS AL Interval 132 ms RADIOLOGY RESULTS QRS Duration 94 ms RADIOLOGY RESULTS QT 382 ms RADIOLOGY RESULTS QTc 446 ms RADIOLOGY RESULTS P [place] 33 degrees RADIOLOGY RESULTS R AXIS 1 degrees RADIOLOGY RESULTS T [place] 30 degrees RADIOLOGY RESULTS Interpretation Sinus rhythm [...] MRSA-Contact IsolationComment: 0 04/26/2021 11:03 AM COMMERCIAL HVAC TECHNICIAN Infection erroneous documented as of this encounter
--- OUTSIDE RECORDS SUMMARY | 2022-03-22 14:03 | XMS_ITS | Encounter Summary ---
:1960 Author Organization [place] Address [address] [place] [address] Care Team Providers Name Role Phone Unavailable Primary Care Provider Unavailable Encounter Details Date Type Department Care Team Description 08/02/2006 Consultation Isaak Bustillos MD [place] GASTROENTEROL [place] [address] [place], [place] [id number] (Wo rk) Social History Tobacco Use Types [...] GUPTA PA-C MT: [id number] Name: SARAH BETH BROWN Account: [id number] : 1960 Consult Date: 08/02/2006 Document: [id number] documented in this encounter Plan of Treatment Not on filedocumented as of this encounter Visit Diagnoses Not on filedocumented in this encounter Additional Health Concerns Infection Onset Date Last Indicated Resolved Time MRSA-Contact IsolationComment: 0 04/26/2021 11:03 AM SEWING MACHINE TESTER Infection erroneous documented as of this encounter
--- OUTSIDE RECORDS SUMMARY | 2022-03-22 14:03 | XMS_ITS | Encounter Summary ---
:1960 Author Organization [place] Address [address] [place] [address] Care Team Providers Name Role Phone No Ref-Primary, Physician Primary Care Provider [phone] Juan Farias MD Unavailable Edilia Trejo APRN WOOD TANK ERECTOR Unavailable Glendy vailable Juan Farias MD Unavailable Denise Connell-C Unavailable [phone] Edilia Trejo APRN WOOD TANK ERECTOR Unavailable Glendy vailable Denise Connell-C Unavailable [phone] Juan Farias MD Primary Care Provider Dana Barry PA-C Unavailable [phone] Encounter Details Date Type Department Care Team Description 07/29/2005 Office Visit-[facility] Heart Unknown, Iva lockett MD [address] [address] Social History Tobacco Use Types [...] Referring Physician: JEROME MORENO Referring Clinic: [facility] CURRENT DIAGNOSES 1. - Hypercholesterolemia, 272.0 2. [...] is regular. He has no cardiac murmurs. 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 Electronically signed by [facility], Em[facility] Data Conversion at 09/06/2013 4:44 AM CDT documented in this encounter Plan of Treatment Not on filedocumented as of this encounter Visit Diagnoses Not on filedocumented in this encounter Additional Health Concerns Infection Onset Date Last Indicated Resolved Time MRSA-Contact IsolationComment: 0 04/26/2021 11:03 AM ALTITUDE CHAMBER TECHNICIAN Infection erroneous MRSA 05/13/2021 05/13/2021 Rule Out C-difficile 12/06/2021 12/06/2021 12/07/2021 8:46 AM CDT documented as of this encounter Care Teams Marine Steward Relationship Specialty Start Date End Date No Ref-Primary, PCP - General 07/03/14 12/03/21 Physician Juan Farias MD PCP - General Cardiovascular Disease 12/04/[address] [place] [id number] Juan Farias MD Assigned Heart and 02/14/20 10/03/[address] Vascular Provider [address] [place] [address] Maya, Assigned Heart and 10/04/20 Edilia Chapman APRN Vascular Provider WOOD TANK ERECTOR NO INFO AVAILABLE 02/10/2022 Juan Farias MD Assigned Heart and 04/04/21 07/31/[address] Vascular Provider [address] [place] [address] Denise Connell Physician [employer] Medical Sergeant Cardiovascular Disease 08/12/21 [place] Watson [address] [place] [address] Maya Assigned Heart and 08/01/21 2 Edilia Chapman APRN Vascular Provider WOOD TANK ERECTOR NO INFO AVAILABLE 02/10/2022 Denise Connell Assigned Heart and 08/22/21 01/14/22 [place] Watson Vascular Provider [address] [place] [address] Dana Barry Assigned Heart and 01/15/22 [place] Teague Vascular Provider [address] [place] [id number] documented as of this encounter
--- OUTSIDE RECORDS SUMMARY | 2022-03-22 14:03 | XMS_ITS | Encounter Summary ---
:1960 Author Organization [place] Address [address] [place] [address] Care Team Providers Name Role Phone No Ref-Primary, Physician Primary Care Provider [phone] Juan Farias MD Unavailable Edilia Trejo APRN ASSET CARD CLERK Unavailable Glendy vailable Juan Farias MD Unavailable Denise Connell-C Unavailable [phone] Edilia Trejo APRN ASSET CARD CLERK Unavailable Glendy vailable Denise Connell-C Unavailable [phone] Juan Farias MD Primary Care Provider Dana Barry PA-C Unavailable [phone] Encounter Details Date Type Department Care Team Description 08/19/2004 Office Visit-[facility] Heart Unknown, Iva lockett MD [address] [address] Social History Tobacco Use Types Packs/Day Years Used Date Smoking Tobacco: Never Assessed Sex Assigned at Date Recorded Not on file documented as of this encounter Progress Notes Unknown, MD sEtella - 08/26/2004 5:34 PM CDT Progress Note Created by: Juan Farias M.D. DATE: 08/19/2004 SARAH BETH BROWN DATE OF : 1960 AGE: [age] years old Referring Physician: JEROME MORENO Referring Clinic: [facility] CURRENT DIAGNOSES 1. - Hypercholesterolemia, 272.0 2. 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 Return Visit 1 year documented in this encounter Plan of Treatment Not on filedocumented as of this encounter Visit Diagnoses Not on filedocumented in this encounter Additional Health Concerns Infection Onset Date Last Indicated Resolved Time MRSA-Contact IsolationComment: 0 04/26/2021 11:03 AM AIRCRAFT DE ICER INSTALLER Infection erroneous MRSA 05/13/2021 05/13/2021 Rule Out C-difficile 12/06/2021 12/06/2021 12/07/2021 8:46 AM CDT documented as of this encounter Care Teams Recruiting Team Lead Relationship Specialty Start Date End Date No Ref-Primary, PCP - General 07/03/14 12/03/21 Physician Juan Farias MD PCP - General Cardiovascular Disease 12/04/[address] [place], [place] [address] Juan Farias MD Assigned Heart and 02/14/20 10/03/[address] Vascular Provider [address] [place], [place] [address] Maya, Assigned Heart and 10/04/20 Edilia Chapman APRN Vascular Provider ASSET CARD CLERK NO INFO AVAILABLE 02/10/2022 Juan Farias MD Assigned Heart and 04/04/21 07/31/[address] Vascular Provider [address] [place] [address] Denise Connell Physician Retail Project Merchandiser Cardiovascular Disease 08/12/21 MARI[place] Watson [address] [place] [address] Maya, Assigned Heart and 08/01/21 2 Edilia Chapman APRN Vascular Provider ASSET CARD CLERK NO INFO AVAILABLE 02/10/2022 Denise Connell Assigned Heart and 08/22/21 01/14/22 [place] Watson Vascular Provider [address] [place] [address] Dana Barry Assigned Heart and 01/15/22 [place] Teague Vascular Provider [address] [place] [address] documented as of this encounter
--- OUTSIDE RECORDS SUMMARY | 2022-03-22 14:03 | XMS_ITS | Encounter Summary ---
:1960 Author Organization [place] Address [address] [place] [address] Care Team Providers Name Role Phone Unavailable Primary Care Provider Unavailable Reason for Referral Specialty Diagnoses / Procedures Referred By Contact Refer red To Contact Tristan [place] ph, [place] [id number] [place] [address] [phone] Referral ID Status Reason Start Date Expiration Date Visits Requ ested Visits Authorized Encounter Details Date Type Department Care Team Description 08/19/2004 Orders Only [facility] Tristan Egan SIS NOT YET Clinic TracyMau Holden MD DEFINED (Primary Dx) [address] [facility] [id number] [place] [phone] Social History Tobacco Use Types Packs/Day Years Used Date Smoking Tobacco: Never Assessed Sex Assigned at Date Recorded Not on file documented as of this encounter Plan of Treatment Not on filedocumented as of this encounter Procedures Procedure Name Priority Date/Time Associated Diagnosis Comme nts [facility] Routine 08/19/2004 DIAGNOSIS NOT YET DEFINED documented in this encounter Results CONSULT [facility] (08/19/2004) Specimen (Source) Anatomical Location Collection [...] Time MRSA-Contact IsolationComment: 0 04/26/2021 11:03 AM CITY EDITOR Infection erroneous documented as of this encounter
--- OUTSIDE RECORDS SUMMARY | 2022-03-22 14:03 | XMS_ITS | Clinical Summary ---
:1960 Author Organization [employer] Address [address] [address] Phone Care Team Providers Name Role Phone Unavailable Primary Care Provider Unavailable Allergies Active Allergy Reactions Severity Noted Date Comments Lisinopril Unknown 09/21/2021 Pt unsure Medications Medication Sig Dispensed Refills Start Date End Date Status unknown medication 1 Each by SEE ADMIN 0 Active INSTRUCTIONS route every morning. One Blood Pressure med and One Cholesterol med aspirin EC 81 MG Take 81 mg by mouth 0 Active tablet one time a day. Do not split or crush. Active Problems Problem Noted Date Alcohol withdrawal seizure without complication 2021 Alcohol abuse 09/22/2021 Hypokalemia 09/22/2021 Hypophosphatemia 09/22/2021 Hypomagnesemia 09/22/2021 Essential hypertension 09/22/2021 Mixed hyperlipidemia 09/22/2021 Medical History Medical History Date Comments Essential (primary) hypertension Mixed hyperlipidemia Uncomplicated alcohol abuse Family History Medical History Relation Comments Addiction Negative Family Hx Social History Tobacco Use Types Packs/Day Years Used Date Smoking Tobacco: Never Smokeless Tobacco: Never Alcohol Use Standard Drinks/Week Comments Yes 70 (1 standard drink = 0.6 oz pure alcoh ol) Sex Assigned at Date Recorded Not on file Job Start Date Occupation Industry Not on file Not on file Not on file Obstetrics History Last Filed Vital Signs Vital Sign Reading Time Taken Comments Blood Pressure 125/89 09/26/2021 12:59 PM CDT Pulse 118 09/26/2021 12:59 PM CDT Temperature 37 ??C (98.6 ??F) 09/26/2021 12:59 PM CDT Respiratory Rate 16 09/26/2021 12:59 PM CDT Oxygen Saturation 98% 09/26/2021 12:59 PM CDT Inhaled Oxygen Concentration - - Weight 83.3 kg (183 lb 10.3 oz) 09/22/2021 11:26 AM CDT Height 175.3 cm (5' 9) 09/22/2021 11:26 AM CDT Body Mass Index 27.12 09/22/2021 11:26 AM CDT Plan of Treatment Not on file Insurance Payer Benefit Plan Subscriber ID Effective Phone Address Typ e / Group Dates PA MEDICAL PA MEDICAL [id number] 2021-Prese [phone] [place]PT [place] dicaid NISHA NISHA nt 11 HUMAN SERV/[employer] CLAIMS PROCESSING [address] [address] [place] [address] (Home) [place] [address] Advance Directives For more information, please contact: [phone] Latest Code Status on File Code Status Date Activated Date Inactivated Comments Full Code 09/22/2021 11:21 AM 09/26/2021 5:16 PM
--- OUTSIDE RECORDS SUMMARY | 2022-03-22 14:03 | XMS_ITS | Encounter Summary ---
:1960 Author Organization [place] Address [address] [place] [address] Care Team Providers Name Role Phone Unavailable Primary Care Provider Unavailable Encounter Details Date Type Department Care Team Description 08/02/2006 Historic Results [facility] Tabitha Welsh MD [address] [phone] (W ork) [address] [phone] Social History Tobacco Use Types Packs/Day Years [...] Transfuse RBC (08/02/2006 6:00 PM CDT) [facility] Method Time Signature RED BLOOD CELL Order MISYS ORDER received Comment: Check for Allocated/OK to Umanzor sfuse units Specimen Anatomical Collection Method Collection Time Receive d Time (Source) Location / / Volume Laterality 08/02/2006 6:00 PM 7 5:44 CDT PM CDT Julius Welsh MD LAB - BLOOD BANK PRODUCT ORD ER Performing Organization Address [facility] Phon e Number MISYS Troponin I (08/02/2006 5:58 PM CDT) P athologist Signature Troponin I <0.04 0.00 - 0.40 MISYS ug/L Specimen Anatomical Collection Method Collection Time Receive d Time (Source) Location / / Volume Laterality 08/02/2006 5:58 PM 7 5:44 CDT PM CDT Julius Welsh MD LAB - BLOOD ORDERABLES Performing Organization Address [facility] Phon e Number MISYS ABO/Rh type and screen (08/02/2006 5:58 PM CDT) [facility] gist Method Time Signature ABO AB MISYS RH(D) Pos MISYS Antibody Neg MISYS Screen Units Ordered 6 MISYS Crossmatch Red Blood MISYS Cells Specimen 08/05/2006 MISYS Expires Unit Number [id number] MISYS Blood Red Blood MISYS Component Type Cells Leukocyte Reduced Status of Unit ISSUED,FINAL MISYS Unit Number [id number] MISYS Blood Red Blood MISYS Component Type Cells Leukocyte Reduced Status of Unit ISSUED,FINAL MISYS Unit Number [id number] MISYS Blood Red Blood MISYS Component Type Cells Leukocyte Reduced Status of Unit ISSUED,FINAL MISYS Unit Number [id number] MISYS Blood Red Blood MISYS Component Type Cells Leukocyte Reduced Status of Unit ISSUED,FINAL MISYS Unit Number [id number] MISYS Blood Red Blood MISYS Component Type Cells Leukocyte Reduced Status of Unit REL FROM MISYS ALLOC Unit Number [id number] MISYS Blood Red Blood MISYS Component Type Cells Leukocyte Reduced Status of Unit REL FROM MISYS ALLOC Specimen Anatomical Collection Method Collection Time Receive d Time (Source) Location / / Volume Laterality 08/02/2006 5:58 PM 7 5:44 CDT PM CDT Julius Welsh MD LAB - BLOOD BANK TEST ORDER Performing Organization Address City/[facility] Phon e Number MISYS documented in this encounter Visit Diagnoses Not on filedocumented in this encounter Additional Health Concerns Infection Onset Date Last Indicated Resolved Time MRSA-Contact IsolationComment: 0 04/26/2021 11:03 AM COMMUNITY FACILITATOR Infection erroneous documented as of this encounter
--- OUTSIDE RECORDS SUMMARY | 2022-03-22 14:03 | XMS_ITS | Encounter Summary ---
:1960 Author Organization [place] Address [address] [place] [address] Care Team Providers Name Role Phone No Ref-Primary, Physician Primary Care Provider [phone] Juan Farias MD Unavailable Edilia Trejo APRN X RAY EQUIPMENT TESTER Unavailable Glendy vailable Juan Farias MD Unavailable Denise Connell-C Unavailable [phone] Edilia Trejo APRN X RAY EQUIPMENT TESTER Unavailable Glendy vailable Denise Connell-C Unavailable [phone] Juan Farias MD Primary Care Provider Dana Barry PA-C Unavailable [phone] Encounter Details Date Type Department Care Team Description 08/17/2001 Office Visit-[facility] Heart Unknown, Iva lockett MD [address] [address] Social History Tobacco Use Types [...] Seat Belt Use - always; 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; Sexual Activity - sexually active; Residence - lives with female partner; Place of - [place]; Hours Worked - 40 hours per week [...] Time MRSA-Contact IsolationComment: 0 04/26/2021 11:03 AM SLIDE FASTENERS INSPECTOR Infection erroneous MRSA 05/13/2021 05/13/2021 Rule Out C-difficile 12/06/2021 12/06/2021 12/07/2021 8:46 AM CDT documented as of this encounter Care Teams Real Estate Financial Analyst Relationship Specialty Start Date End Date No Ref-Primary, PCP - General 07/03/14 12/03/21 Physician Juan Farisa MD PCP - General Cardiovascular Disease 12/04/21 [address] [place] [address] Juan Farias MD Assigned Heart and 02/14/20 10/03/[address] Vascular Provider [address] [place] [address] Maya, Assigned Heart and 10/04/20 Edilia Chapman APRN Vascular Provider GUILHERME NO INFO AVAILABLE 02/10/2022 Juan Farias MD Assigned Heart and 04/04/21 07/31/21 [address] Vascular Provider [address] [place], [place] [id number] Denise Connell Physician Printing Machine Operator Cardiovascular Disease 08/12/21 MARI[place] Watson [address] [place], [place] [address] Maya, Assigned Heart and 08/01/21 2 Edilia Chapman APRN Vascular Provider X RAY EQUIPMENT TESTER NO INFO AVAILABLE 02/10/2022 Denise Connell Assigned Heart and 08/22/21 01/14/22 MARIET[place] Watson Vascular Provider [address] [place], [place] [address] Dana Barry Assigned Heart and 01/15/22 MARIET[place] Teague Vascular Provider [address] [place], [place] [address] documented as of this encounter
--- OUTSIDE RECORDS SUMMARY | 2022-03-22 14:03 | XMS_ITS | Encounter Summary ---
:1960 Author Organization [place] Address [address] [place] [address] Care Team Providers Name Role Phone Unavailable Primary Care Provider Unavailable Reason for Visit Reason Comments Dizziness x 1 wk, diarrhea,cough, N&V, weakness, Encounter Details Date Type Department Care Team Description 07/31/2006 Office Visit [facility] Julius Welsh MD HYPERTENSION NOS; [facility] [place] [address] MIXED HYPERLIPIDEMIA; [address] [facility] [place] [address] Social History Tobacco Use [...] CDT) athologist Signature CRP Cardiac 10.6 mg/L [facility] LABS Comment: Reference Values: Low Risk: ? <1.0 mg/L Average Risk: ? 1.0-3.0 mg/L High Risk: ?>3.0 mg/L Acute Inflammation: >8.0 mg/L Specimen Anatomical Collection Method Collection Time Receive d Time (Source) Location / / Volume Laterality 07/31/2006 4:22 PM 200 7 4:24 CDT PM CDT Julius Welsh MD LABORATORY Performing Organization Address City/State/[facility] Code Phon e Number [facility] [address] [place], [place] [id number] [place] [address] LABS (ABNORMAL) CBC WITH PLATELETS, DIFF (07/31/2006 4:22 PM CDT) athologist Signature WBC 6.8 4.0 - 11.0 [facility] CEDAR 10e9/L [facility] LAB RBC Count 2.06 (L) 4.4 - 5.9 [facility] Comment: Results confirmed by repeat patricia t Hemoglobin 6.5 (LL) 13.3 - 17.7 g/dL [facility] Comment: Results confirmed by repeat patricia t Hematocrit 20.1 (L) 40.0 - 53.0 % [facility] MCV 98 78 - 100 fl [facility] MCH 31.6 26.5 - 33.0 pg [facility] MCHC 32.3 31.5 - 36.5 g/dL [facility] RDW 15.3 (H) 10.0 - 15.0 % [facility] Platelet Count 352 150 - 450 10e9/L [facility] Diff Method Automated Method [facility] % Lymphocytes 30 20 - 48 % [facility] % Monocytes 8 0 - 12 % [facility] % Granulocytes 62 40 - 75 % [facility] Absolute Lymphocytes 2.1 0.8 - 5.3 10e9/L [facility] Absolute Monocytes 0.5 0.0 - 1.3 10e9/L [facility] Absolute Granulocytes 4.2 1.6 - 8.3 10e9/L F [facility] LAB Specimen Anatomical Collection Method Collection Time Receive d Time (Source) Location / / Volume Laterality 07/31/2006 4:22 PM 7 4:24 CDT PM CDT Julius Welsh MD LABORATORY Performing Organization Address City/State/ZIP Code Phon e Number [facility] [address] [place] [address] [facility] TSH W/FREE T4 REFLEX (07/31/2006 4:22 PM CDT) athologist Signature TSH 3.66 0.4 - 5.0 [facility] mU/L [facility] LAB Specimen Anatomical Collection Method Collection Time Receive d Time (Source) Location / / Volume Laterality 07/31/2006 4:22 PM 7 4:24 CDT PM CDT Julius Welsh MD LABORATORY Performing Organization Address City/[facility]/ZIP Code Phon e Number [facility] [address] [place] [phone] [facility] LAB (ABNORMAL) HEMOGLOBIN A1C (07/31/2006 4:22 PM CDT) athologist Signature Hemoglobin A1C 6.8 (H) 4.3 - 6.0 [facility] % [facility] LAB Specimen Anatomical Collection Method Collection Time Receive d Time (Source) Location / / Volume Laterality 07/31/2006 4:22 PM 7 4:24 CDT PM CDT Julius Welsh MD LABORATORY Performing Organization Address City/[facility]/ZIP Code Phon e Number [facility] [address] [place] [phone] [facility] LAB (ABNORMAL) AST (07/31/2006 4:22 PM CDT) P athologist Signature AST 149 (H) 0 - 55 U/L [facility] LAB Specimen Anatomical Collection Method Collection Time Receive d Time (Source) Location / / Volume Laterality 07/31/2006 4:22 PM 7 4:24 CDT PM CDT Julius Welsh MD LABORATORY Performing Organization Address City/[facility]/ZIP Code Phon e Number [facility] [address] [facility] [address] [phone] [facility] LAB (ABNORMAL) A.M.A. LIPID PANEL (07/31/2006 4:22 PM CDT) athologist Signature Cholesterol 267 (H) 0 - 200 [facility] mg/dL CLINIC LAB Comment: LDL Cholesterol is [...] Triglycerides 492 (H) 0 - 150 mg/dL [facility] LAB Comment: Results confirmed by repeat patricia t HDL Cholesterol 16 (L) 40 - 110 mg/dL [facility] LAB LDL Cholesterol Cannot estimate LDL 0 - 129 mg/dL [facility] Calculated when triglyceride CLINIC LAB exceeds 400 mg/dL VLDL-Cholesterol Cannot estimate VLDL 0 - 30 mg/dL [facility] when triglyceride CLINIC LAB exceeds 400 mg/dL. Cholesterol/HDL Ratio 16.4 (H) 0.0 - 5.0 [facility] LAB Specimen Anatomical Collection Method Collection Time Receive d Time (Source) Location / / Volume Laterality 07/31/2006 4:22 PM 7 4:24 CDT PM CDT Julius Welsh MD LABORATORY Performing Organization Address City/[facility] Code Phon e Number [facility] [address] [place] [address] [phone] [facility] LAB ALANINE AMINO (ALT) (SGPT) (07/31/2006 4:22 PM CDT) athologist Signature ALT 60 0 - 70 U/L [facility] LAB Specimen Anatomical Collection Method Collection Time Receive d Time (Source) Location / / Volume Laterality 07/31/2006 4:22 PM 7 4:24 CDT PM CDT Julius Welsh MD LABORATORY Performing Organization Address [facility]/ZIP Code Phon e Number [facility] [address] [place] [address] [phone] [facility] LAB (ABNORMAL) A.M.A. BASIC METABOLIC PANEL (07/31/2006 4:22 PM CDT) athologist Signature Sodium 132 (L) 133 - 144 [facility] mmol/L [facility] Potassium 3.8 3.4 - 5.3 [facility] SHAKEEL mmol/L CLINIC LAB Chloride 88 (L) 94 - 109 [facility] SHAKE[place] mmol/L CLINIC LAB Carbon Dioxide 26 20 - 32 [facility] SHAKEEL mmol/L [facility] Anion Gap 18 (H) 6 - 17 [facility] mmol/L [facility] Glucose 114 (H) 60 - 110 [facility] mg/dL [facility] Urea Nitrogen 79 (H) 5 - 24 [facility] mg/dL CLIN[facility] LAB Comment: Results confirmed by repeat patricia t Creatinine 3.20 (H) 0.80 - 1.50 mg/dL [facility] EA [facility] GFR Estimate 23 (L) >60 mL/min/1.7m2 [facility] E AGAN [facility] GFR Estimate If Black 27 (L) >60 mL/min/1.7m2 F [facility] Calcium 8.2 (L) 8.5 - 10.4 mg/dL [facility] N [facility] Specimen Anatomical Collection Method Collection Time Receive d Time (Source) Location / / Volume Laterality 07/31/2006 4:22 PM 7 4:24 CDT PM CDT Julius Welsh MD LABORATORY Performing Organization Address City/[facility]/ZIP Code Phon e Number [address] [place] [address] [phone] [facility] LAB documented in this encounter Visit Diagnoses Diagnosis Unspecified essential hypertension Mixed hyperlipidemia Dizziness and giddiness documented in this encounter Additional Health Concerns Infection Onset Date Last Indicated Resolved Time MRSA-Contact IsolationComment: 0 04/26/2021 11:03 AM EXECUTIVE MANAGER Infection erroneous documented as of this encounter
--- OUTSIDE RECORDS SUMMARY | 2022-03-22 14:03 | XMS_ITS | Encounter Summary ---
:1960 Author Organization [place] Address [address] [place] [address] Care Team Providers Name Role Phone Unavailable Primary Care Provider Unavailable Reason for Visit Reason Comments RECHECK PT feels very weak, his feet feel like they're asleep- he's had diarrhea all day and little or nothing to eat- he did take his iron pill with orange juice and some ensure Encounter Details Date Type Department Care Team Description 08/02/2006 Office Visit [facility] Julius Welsh MD ANEMIA NOS; [facility] [place] [address] [place] [address] MIXED HYPERLIPIDEMIA; [address] [place] [address] [place] HYPERTENSION NOS [place], [place] [address] [phone] Social History Tobacco Use Types Packs/Day Years [...] wishes to accept offer of admission into [facility]. Histories Updated through 08.02.2006: Past Medical History [...] A/P: 1- Subacute GI bleed. Admmit to [facility] Med/Surg. T&C x 2 units and transfuse. [...] Time MRSA-Contact IsolationComment: 0 04/26/2021 11:03 AM JUDO INSTRUCTOR Infection erroneous documented as of this encounter
--- OUTSIDE RECORDS SUMMARY | 2022-03-22 14:03 | XMS_ITS | Encounter Summary ---
:1960 Author Organization [place] Address [address] [place] [address] Care Team Providers Name Role Phone Unavailable Primary Care Provider Unavailable Encounter Details Date Type Department Care Team Description 08/02/2006 Admission [facility] Julius Welsh MD (Windows Infrastructure Engineer) [address] [address] [phone] (Wo rk) Social History Tobacco Use Types [...] primary patient of Dr. Julius Welsh of [facility], who presented to Dr. Welsh on [...] and admission through the emergency room at [facility]. The patient deferred this, preferring to return [...] Wiseman strongly recommended the patient's admission to [facility] for a blood transfusion and subsequent evaluation [...] The patient will now accept admission to [facility] directly from clinic. As he is hemodynamically [...] Name: SARAH BETH BROWN MRN: [id number] Account: [id number] : 1960 Admitted: [id number] Document: [id number] cc: Parminder Wiseman MD documented in this encounter Plan of Treatment Not on filedocumented as of this encounter Visit Diagnoses Not on filedocumented in this encounter Additional Health Concerns Infection Onset Date Last Indicated Resolved Time MRSA-Contact IsolationComment: 0 04/26/2021 11:03 AM REAL ESTATE TRANSACTION COORDINATOR Infection erroneous documented as of this encounter
--- OUTSIDE RECORDS SUMMARY | 2022-03-22 14:03 | XMS_ITS | Encounter Summary ---
:1960 Author Organization [place] Address [address] [place] [address] Care Team Providers Name Role Phone Unavailable Primary Care Provider Unavailable Encounter Details Date Type Department Care Team Description 08/03/[address] [facility] Julius Welsh MD None Endoscopy [address] Alejandrina [address] [place] [address] [place] [address] [phone] Social History Tobacco Use Types Packs/Day Years [...] Component Value Ref Test Analysis Performed At [facility] Method Time Signature Upper GI [...] RADIOLOGY RESULTS COLONOSCOPY (08/03/2006 1:45 PM CDT) [facility] gist Method Time Signature COLONOSCOPY Endoscopy RADIOLOGY [...] saturations were monitored ?cont inuously. [id number] through ?the anus and advanced [...] MRSA-Contact IsolationComment: 0 04/26/2021 11:03 AM HOME ECONOMIST CONSUMER SERVICE Infection erroneous documented as of this encounter
--- OUTSIDE RECORDS SUMMARY | 2022-03-22 14:03 | XMS_ITS | Encounter Summary ---
:1960 Author Organization [place] Address [address] [place] [address] Care Team Providers Name Role Phone No Ref-Primary, Physician Primary Care Provider [phone] Encounter Details Date Type Department Care Team Description 07/05/2001 Historic Results [facility] Heart Unknown, [facility] ider [address] [place] [address] Social History Tobacco Use Types Packs/Day Years Used Date Smoking Tobacco: Never Assessed Sex Assigned at Date Recorded Not on file documented as of this encounter Plan of Treatment Not on filedocumented as of this encounter Procedures Procedure Name Priority Date/Time Associated Diagnosis Comme nts ECHO CARDIAC - HIM SCAN 07/05/2001 12:00 AM CUSTOMER SERVICE OFFICER - ARCHIVE documented in this encounter Results ECHO CARDIAC - HIM SCAN - ARCHIVE (07/05/2001 12:00 AM CUSTOMER SERVICE OFFICER) Anatomical Region Laterality Modality Echocardiography Specimen (Source) [...] MRSA-Contact IsolationComment: 0 04/26/2021 11:03 AM CUSTOMER SERVICE OFFICER Infection erroneous documented as of this encounter Care Teams Brim Pouncer Relationship Specialty Start Date End Date No Ref-Primary, Physician PCP - General 07/03/14 12/03/21 documented as of this encounter
--- OUTSIDE RECORDS SUMMARY | 2022-03-22 14:03 | XMS_ITS | Encounter Summary ---
:1960 Author Organization [place] Address [address] [place] [address] Care Team Providers Name Role Phone Unavailable Primary Care Provider Unavailable Encounter Details Date Type Department Care Team Description 08/03/2006 Results Only [facility] Results MD Fina [facility] [address] [place], [place] [address] (Wo rk) Social History [...] Procedure Name Priority Date/Time Associated Diagnosis Comme [facility] CT ABDOMEN W/O Routine 08/03/2006 11:22 PM [...] MRSA-Contact IsolationComment: 0 04/26/2021 11:03 AM EMPLOYMENT MANAGER Infection erroneous documented as of this encounter
--- OUTSIDE RECORDS SUMMARY | 2022-03-22 14:03 | XMS_ITS | Encounter Summary ---
:1960 Author Organization [place] Address [address] [place] [address] Care Team Providers Name Role Phone Unavailable Primary Care Provider Unavailable Encounter Details Date Type Department Care Team Description 07/25/2005 Orders Only [facility] Tristan Egan SIS NOT YET Clinic [place] MD Navin DEFINED (Primary Dx) [address] [place] [address] [phone] Social History Tobacco Use Types Packs/Day Years [...] . documented in this encounter Results TRIGLYCERIDES [58972.000] (07/25/2005) athologist Signature Triglycerides 95 mg/dL [facility] Tristan Egan MD LABORATORY Performing Organization Address City/State/ZIP Code Phon e Number [facility] LDL-CHOLESTEROL [17602.001] (07/25/2005) athologist Signature LDL Cholesterol 111 mg/dL [facility] Calculated Tristan Egan MD LABORATORY Performing Organization Address [facility] Phon e Number [facility] HDL CHOLESTEROL [12416.000] (07/25/2005) P athologist Signature HDL Cholesterol 93 mg/dL [facility] Tristan Egan MD LABORATORY Performing Organization Address [facility] Phon e Number [facility] (ABNORMAL) CHOLESTEROL [83208.000] (07/25/2005) athologist Signature Cholesterol 223 (A) 115 - 199 [facility] mg/dL Tristan Egan MD LABORATORY Performing Organization Address [facility] Phon e Number [facility] documented in this encounter Visit Diagnoses Diagnosis DIAGNOSIS NOT YET DEFINED - Primary documented in this encounter Additional Health Concerns Infection Onset Date Last Indicated Resolved Time MRSA-Contact IsolationComment: 0 04/26/2021 11:03 AM CLINICAL NURSING DIRECTOR Infection erroneous documented as of this encounter
--- OUTSIDE RECORDS SUMMARY | 2022-03-22 14:03 | XMS_ITS | Encounter Summary ---
:1960 Author Organization [place] Address [address] [place] [address] Care Team Providers Name Role Phone Unavailable Primary Care Provider Unavailable Encounter Details Date Type Department Care Team Description 08/03/2006 Orders Only [facility] Julius Welsh MD DIAGNOSIS NOT YET Clinic [place] [address] [place] [address] DEFINED (Primary Dx) [address] [place] [address] [phone] Social History Tobacco Use Types Packs/Day Years [...] PATHOLOGY (08/03/2006) Impressions [facility] - 08/03/2006 CASE: [id number] Patient Name: SARAH BETH BROWN MR#: [id number] Specimen #: [id number] Collected: 08/03/2006 Received: 08/03/2006 Reported: 08/04/2006 15:09 [...] is present. KARLEE/kalina 08-04-06 TESTING LAB LOCATION: [facility] [address], [place] ??[id number] COLLECTION SITE: Client: [facility] Location: MS3 (R) Electronically filed by Joan Jessica ??08/07/2006 ??8:41 AM Julius Welsh MD LABORATORY Performing Organization Address City/State/ZIP Code Phon e Number [facility] documented in this encounter Visit Diagnoses Diagnosis DIAGNOSIS NOT YET DEFINED - Primary documented in this encounter Additional Health Concerns Infection Onset Date Last Indicated Resolved Time MRSA-Contact IsolationComment: 0 04/26/2021 11:03 AM COMPOUNDING ASSISTANT Infection erroneous documented as of this encounter
--- OUTSIDE RECORDS SUMMARY | 2022-03-22 14:03 | XMS_ITS | Encounter Summary ---
:1960 Author Organization [place] Address [address] [place] [address] Care Team Providers Name Role Phone Unavailable Primary Care Provider Unavailable Reason for Referral (Routine) - Closed Specialty Diagnoses / Procedures Referred By Contact Refer red To Contact Diagnoses Anemia, unspecified Parminder Wiseman MD [facility] [address] [place] [address] Referral ID Status Reason Start Date Expiration Date Visits V isits Requested Authorized [id number] Closed Consult Only 08/01/2006 01/31/2007 1 1 (Routine) - Closed Specialty Diagnoses / Procedures Referred By Contact Refer red To Contact Diagnoses Anemia, unspecified Parminder Wiseman MD [facility] [address] [place] [address] Referral ID Status Reason Start Date Expiration Date Visits V isits Requested Authorized [id number] Closed Consult Only 08/01/2006 05/03/2007 1 1 Reason for Visit Reason Comments RECHECK f/u abnormal lab results on 07/31/2006 Encounter Details Date Type Department Care Team Description 08/01/2006 Office Visit [facility] Parminder Wiseman (Primary Dx); [facility] [place] Kavon Rabago MD DIZZINESS AND GIDDINESS; [address] [facility] GRACE ALVAREZ MELE[place], BLOOD IN STOOL [place], [place] [address] [address] [phone] YAMINI [address] [place], [place] [address] (Wo rk) Social History [...] 325 MG OR, IMMUNOS OCCULT BLOOD, CONSULT [facility], BLOOD SMEAR, PERIPHERAL, INTERPRETATION, PHYSICIAN W/ [...] which will need evaluation. Parminder Wiseman MD [facility] documented in this encounter Nursing Notes 08/01/2006 [...] REPORT documented in this encounter Results CONSULT [facility] (08/30/2006) Narrative This result has an attachment that is no t available. Parminder Wiseman MD REFERRAL (ABNORMAL) CBC WITH PLATELETS, DIFF (08/01/2006 12:16 PM CDT) P athologist Signature WBC 9.2 4.0 - 11.0 [facility] 10e9/L [facility] RBC Count 2.07 (L) 4.4 - 5.9 [place] 10e12/L [facility] Hemoglobin 6.4 (LL) 13.3 - 17.7 [place] g/dL [facility] Comment: Results confirmed by repeat patricia t Hematocrit 19.9 (L) 40.0 - 53.0 % [facility] MCV 96 78 - 100 fl [facility] MCH 30.9 26.5 - 33.0 pg [facility] MCHC 32.2 31.5 - 36.5 [facility] g/dL [facility] RDW 14.4 10.0 - 15.0 % [facility] Platelet Count 337 150 - [address] LAB % Neutrophils 62 40 - 75 % [facility] % Lymphocytes 24 20 - 48 % [facility] % Monocytes 11 0 - 12 % [facility] % Eosinophils 3 0 - 6 % [facility] Absolute Neutrophil 5.7 1.6 - 8.3 [facility] 10e9[facility] Absolute Lymphocytes 2.2 0.8 - 5.3 [facility] 10e9[facility] Absolute Monocytes 1.0 0.0 - 1.3 [place] [facility] 10e9/[facility] Absolute Eosinophils 0.3 0.0 - 0.7 [facility] 10e9[facility] Anisocytosis Slight [facility] Basophilic Stipling Present [facility] RBC Morphology Slide to be reviewed by [facility] Pathologist [facility] Platelet Estimate Normal [facility] Diff Method Manual Differential [facility] CORRECTED ON 08/01 AT 1945: PREVIOUSLY REPORTED Manual Method HOSPITAL LAB Specimen Anatomical Collection Method Collection Time Receive d Time (Source) Location / / Volume Laterality 08/01/2006 12:16 08/01/2006 PM CDT 12:18 PM CDT Parminder Wiseman MD LABORATORY Performing Organization Address City/[facility]/ZIP Code Phon e Number M [facility] [address] [place], [place] [address] [facility] (ABNORMAL) IMMUNOS OCCULT BLOOD (08/01/2006 12:15 PM CDT) [facility] Signature Occult Blood Positive (A) NEG [place] Slide 1 [facility] Slide 1 Date 08/01/06 [facility] Occult Blood NOT DONE NEG [place] Slide 2 [facility] Slide [address] [facility] Occult Blood NOT DONE NEG [place] Slide 3 [facility] Slide [address] [facility] Specimen Anatomical Collection Method Collection Time Receive d Time (Source) Location / / Volume Laterality 08/01/2006 12:15 08/01/2006 PM CDT 12:17 PM CDT Parminder Wiseman MD LABORATORY Performing Organization Address City/[facility]/ZIP Code Phon e Number [facility] [address] [place] [address] [facility] BLOOD SMEAR, PERIPHERAL, INTERPRETATION, PHYSICIAN W/ WRITTEN REPORT (08/01/2006 12:15 PM CDT) [facility] Signature Blood Slide to be [place] Morphology reviewed by [facility] Smear Pathologist [facility] Specimen Anatomical Collection Method Collection Time Receive d Time (Source) Location / / Volume Laterality 08/01/2006 12:15 08/01/2006 PM CDT 12:17 PM CDT Parminder Wiseman MD LABORATORY Performing Organization Address City/State/ZIP Code Phon e Number M [facility] [address] [place], [place] [address] [facility] (ABNORMAL) RETICULOCYTE COUNT (08/01/2006 12:15 PM CDT) [facility] Time Signature % Retic 2.6 (H) 0.5 - 2.0 [place] % [facility] Absolute 50.4 25 - 95 [place] Retic 10e9/L [facility] Method [facility]ated [facility] Specimen Anatomical Collection Method Collection Time Receive d Time (Source) Location / / Volume Laterality 08/01/2006 12:15 08/01/2006 PM CDT 12:17 PM CDT Parminder Wiseman MD LABORATORY Performing Organization Address City/State/ZIP Code Phon e Number [facility] [address] [place], [place] [address] [facility] (ABNORMAL) IRON & TIBC (08/01/2006 12:15 PM CDT) athologist Signature Iron 119 35 - 180 [facility] ug/dL [facility] Iron Binding 242 240 - 430 [place] Cap ug/dL [facility] Iron Saturation 49 (H) 15 - 46 % [facility] Specimen Anatomical Collection Method Collection Time Receive d Time (Source) Location / / Volume Laterality 08/01/2006 12:15 08/01/2006 PM CDT 12:17 PM CDT Parminder Wiseman MD LABORATORY Performing Organization Address City/State/ZIP Code Phon e Number [facility] [address], [place] [address] [facility] (ABNORMAL) FERRITIN (08/01/2006 12:15 PM CDT) athologist Signature Ferritin 1671 (H) 20 - 300 [facility] ng/mL [facility] Specimen Anatomical Collection Method Collection Time Receive d Time (Source) Location / / Volume Laterality 08/01/2006 12:15 08/01/2006 PM CDT 12:17 PM CDT Parminder Wiseman MD LABORATORY Performing Organization Address City/State/ZIP Code Phon e Number [facility] [address] [place] [address] [facility] BLOOD SMEAR, PERIPHERAL, INTERPRETATION, PHYSICIAN W/ WRITTEN REPORT (08/01/2006 12:00 AM CDT) Component Value Ref Test Analysis Performed At [facility] gist Range Method Time Signature Copath Report Patient Name: SARAH BETH BROWN MR#: [id number] Specimen #: [id number] Collected: 08/01/2006 Received: 08/02/2006 Reported: 08/02/2006 16:00 Ordering Phy(s): PARMINDER WISEMAN TEST(S): Morphology Exam ([facility]) FINAL DIAGNOSIS: Peripheral blood - Normochromic, normocytic [...] seen; occasional fine basophilic sti ppling; no Boyle-Grundy bodies seen; rouleaux appears increased. PLATELETS: ??The [...] ?? 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
--- OUTSIDE RECORDS SUMMARY | 2022-03-22 14:03 | XMS_ITS | Encounter Summary ---
:1960 Author Organization [place] Address [address] [place] [address] Care Team Providers Name Role Phone No Ref-Primary, Physician Primary Care Provider [phone] Juan Farias MD Unavailable Edilia Trejo APRN CARE SERVICES MANAGER Unavailable Glendy vailable Juan Farias MD Unavailable Denise Connell-C Unavailable [phone] Edilia Trejo APRN CARE SERVICES MANAGER Unavailable Glendy vailable Denise Connell-C Unavailable [phone] Juan Farias MD Primary Care Provider Dana Barry PA-C Unavailable [phone] Encounter Details Date Type Department Care Team Description 08/21/2002 Office Visit-[facility] Heart Unknown, Iva lockett MD [address] [address] Social History Tobacco Use Types [...] Seat Belt Use - always; 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; Sexual Activity - sexually active; Residence - [...] MRSA-Contact IsolationComment: 0 04/26/2021 11:03 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 Infection erroneous MRSA 05/13/2021 05/13/2021 Rule Out C-difficile 12/06/2021 12/06/2021 12/07/2021 8:46 AM CDT documented as of this encounter Care Teams Emergency Management Program Specialist Relationship Specialty Start Date End Date No Ref-Primary, PCP - General 07/03/14 12/03/21 Physician Juan Farias MD PCP - General Cardiovascular Disease 12/04/[address] [place], [place] [address] Juan Farias MD Assigned Heart and 02/14/20 10/03/[address] Vascular Provider [address] [place], [place] [address] Maya, Assigned Heart and 10/04/20 Edilia Chapman APRN Vascular Provider CARE SERVICES MANAGER NO INFO AVAILABLE 02/10/2022 Juan Farias MD Assigned Heart and 04/04/21 07/31/[address] Vascular Provider [address] [place] [address] Denise Connell Physician Carrier Loader Cardiovascular Disease 08/12/21 MARIETTA Watson [address] [place] [address] Maya, Assigned Heart and 08/01/21 2 Edilia Chapman APRN Vascular Provider CARE SERVICES MANAGER NO INFO AVAILABLE 02/10/2022 Denise Connell Assigned Heart and 08/22/21 01/14/22 MARIETTA Watson Vascular Provider [address] [place] [address] Dana Barry Assigned Heart and 01/15/22 MARIETTA Teague Vascular Provider [address] [place] [address] documented as of this encounter
--- OUTSIDE RECORDS SUMMARY | 2022-03-22 14:03 | XMS_ITS | Encounter Summary ---
:1960 Author Organization [place] Address [address] [place] [address] Care Team Providers Name Role Phone Unavailable [...] as of this encounter Progress Notes Interface, Undercover Operator - 07/12/2010 5:40 PM CDT General Information General Information <R> How to be addressed - Kayden <R> Infrastructure Director Needed - No Source of reliable information - Patient Patient Contact Information <R> wagon person to notify: - Selina Wells Sig other <R> Phone 1: - [phone] Cell Phone: - [phone] Advance Directive Advanced Health Care Directive Information <R> Do you have a Advance Health Care Directive? - No Can patient name a Surrogate Decision Maker? (Not legally binding) - Yes Surrogate Name: - Selina Wells Surrogate Home Phone Number: - [phone] <R> Would you like to receive information [...] Care Values/Beliefs/Spiritual Care F: Enedina: Does culture/spirituality/ judaism play an important part in your life? - Episcopal <R> Would you like pastoral care/clergy/automobile service advisor notified? - Does not wish to [...] Time MRSA-Contact IsolationComment: 0 04/26/2021 11:03 AM UG DESIGNER Infection erroneous documented as of this encounter
--- OUTSIDE RECORDS SUMMARY | 2022-03-22 14:04 | XMS_ITS | Encounter Summary ---
:1960 Author Organization [facility] Address [address] [address] Phone Care Team Providers Name Role Phone Unavailable Primary Care Provider Unavailable Encounter Details Date Type Department Care Team Description 09/21/2021 Travel Social History Tobacco Use Types Packs/Day Years Used Date Smoking Tobacco: Never Assessed Sex Assigned at Date Recorded Not on file Job Start Date Occupation Industry Not on file Not on file Not on file COVID-19 Exposure Response Date Recorded In the last 10 days, have you been in contact with No / Unsu re 09/21/2021 10:51 PM CDT someone who was confirmed or suspected to have Coronavirus/COVID-19? documented as of this encounter Plan of Treatment Not on filedocumented as of this encounter Visit Diagnoses Not on filedocumented in this encounter
--- OUTSIDE RECORDS SUMMARY | 2022-03-22 14:04 | XMS_ITS | Encounter Summary ---
:1960 Author Organization [employer] Address [address] [place] [id number] Phone Care Team Providers Name Role Phone Unavailable Primary Care Provider Unavailable Reason for Referral Office Visit (Routine) - Pending Review Specialty Diagnoses / Procedures Referred By Contact Refer red To Contact Diagnoses Hospital discharge follow-up Miquel Mckeon MD [address] [place] [address] Referral ID Status Reason Start Date Expiration Date Visits V isits Requested Authorized [id number] Pending 09/26/2021 03/28/2022 1 1 Review Question Answer Follow-up With: Primary Care Referral Type: Hospital Follow-up Follow-up Time Frame: 3 Days Diagnosis supporting this Referral: Hospital discharge follow-up [[id number]] Reason for Visit Reason Comments Seizures Withdrawal- Alcohol Auth/Cert Specialty Diagnoses / Procedures Referred By Contact Refer red To Contact Diagnoses Hypokalemia Hypomagnesemia Hypophosphatemia Tachycardia Alcohol withdrawal seizure with complication (HCC) Alcohol withdrawal seizure without complication (HCC) [facility] [address] [place] [address] [place] [address] Referral ID Status Reason Start Date Expiration Date Visits Requ ested Visits Authorized [id number] 1 1 Encounter Details Date Type Department Care Team Description 09/21/2021 - Hospital Encounter [facility] Dago Henriquez DO [address] [facility] [place] [id number] Alcohol withdrawal seizure with complica tion (HCC) (Primary Dx); 09/26/2021 [facility] Miquel Mckeon MD [address] [place] [id number] Tachycardia; [address] [place] [address] N Liam Rodriguez MD [address] [place] [address] [id number] Hypomagnesemia; [place] [address] Hypokalemia; [phone] Hypophosphatemi a; Alcohol withdra wal seizure without complication (HCC) Social History Tobacco Use Types Packs/Day Years [...] Mass Index 27.12 09/22/2021 11:26 AM CDT documented in this encounter Functional Status Functional Status Response Date of Assessment Patient's Vision Adequate to Safely Complete Daily Yes 09/22/2021 Activities Patient's Memory Adequate to Safely Complete Daily Yes 09/22/2021 Activities Cognitive Status Response Date of Assessment Patient's Judgment Adequate to Safely Complete Daily Yes 09/22/2021 Activities documented as of this encounter Discharge Summaries Miquel Mckeon MD - 09/26/2021 12:33 PM CDT Images from the original note were not included. 09/26/2021 DISCHARGE SUMMARY Miquel Mckeon MD Patient Name: Juan Pablo Brown Date of : 1960 Age: [age] year old Primary Physician: No primary care provider on file. Admission Date: 09/21/2021 Discharge Date: 09/26/2021 Primary admitting diagnosis: Hypokalemia [E87.6] Hypomagnesemia [E83.42] Hypophosphatemia [E83.39] Tachycardia [R00.0] Alcohol withdrawal seizure with complication (HCC) [F10.239, R56.9] Alcohol withdrawal seizure without complication (HCC) [F10.230, R56.9] Discharge Diagnoses: Active Hospital Problems Alcohol withdrawal seizure without complication (HCC) Alcohol abuse Hypokalemia Hypophosphatemia Hypomagnesemia Essential hypertension Mixed hyperlipidemia Consults: CD consult He will be discharged from [facility] to home Discharge Medications: Current Discharge Medication List New Prescriptions Details amLODIPine 5 MG tablet Commonly known as: Norvasc Dose: 5 mg Start taking on: September 27, 2021 5 mg, Oral, ONCE DAILY folic acid 1 MG tablet Dose: 1 mg Start taking on: September 27, 2021 1 mg, Oral, ONCE DAILY pantoprazole 40 MG delayed-release tablet Commonly known as: Protonix Dose: 40 mg 40 mg, Oral, DAILY AT 1700, Do not crush. * PHENobarbital 64.8 MG tablet Commonly known as: Luminal Dose: 64.8 mg 64.8 mg, Oral, EVERY 12 HOURS * PHENobarbital 32.4 MG tablet Commonly known as: Luminal Dose: 32.4 mg Start taking on: September 27, 2021 32.4 mg, Oral, EVERY 12 HOURS Thiamine Mononitrate 250 MG Tablet Dose: 500 mg Start taking on: September 27, 2021 500 mg, Oral, ONCE DAILY * This list has 2 medication(s) that are the same as other medications prescribed for you. Read thedirections carefully, and ask your doctor or other care provider to review them with you. Continued Details aspirin EC 81 MG tablet Dose: 81 mg 81 mg, Oral, ONCE DAILY, Do not split or crush. unknown medication Dose: 1 Each 1 Each, SEE ADMIN INSTRUCTIONS, EVERY MORNING, One Blood Pressure med and One Cholesterol med You might also be taking other medications not listed above. If you have questions about any of your other medications, talk to the person who prescribed them or your Primary Care Provider. Discharge Instructions: Take medications as prescribed. Follow-up with primary care physician. Continue alcohol rehab program Hospital Summary: (Copied from H&P) HPI: Juan Pablo Brown is a 60 year old male with a history of alcohol abuse who presents with seizure. He states he usually drinks about 10 ounces of alcohol per day. He tried quitting two days ago and then this evening some friends were over and he had just had two shots of whiskey and then had a seizure estimated to have lasted about 4 minutes. He is looking for help with his drinking. He had been sober for about 10 years and started drinking about 4 years ago. ?? Hospital course and problems addressed during hospital stay; Alcohol withdrawal syndrome with associated seizure -Patient had a witnessed seizure and was brought to the emergency room. Seizure reportedly lasted several minutes. -No additional seizures since admission -Patient was seen by CD and was agreeable to outpatient intervention. -Thiamine and folic acid -Continue phenobarbital taper -Patient has not required benzodiazepines in over 24 hours ?? Essential hypertension -Blood pressure elevated but better controlled -Continue amlodipine 5 mg Hyperlipidemia Labs: No results found for this or any previous visit (from the past 24 hour(s)). All of the discharge instructions were discussed with the patient who verbalizes understanding and all of the questions were addressed at this time. The office information was given to the patient and was advised to contact the office with any further questions/concerns. Greater than 30 Minutes time spent with patient. Miquel Mckeon MD documented in this encounter Discharge Instructions Ana M Terry RN - 09/24/2021 10:34 AM CDT Patient Discharge Instructions Medications: Keep a written list of the medicines you take, the amounts, and when and why you take them. Bring the list of your medications or the pill bottles when you see your caregivers. Learn why you take each medicine. Ask your caregiver for information about your medicine. Do not use any medicines, ujjo-yhe-mchauok drugs, vitamins, herbs, or food supplements without first talking to caregivers. Always take your medicines as directed by caregivers. Call your caregiver if you think your medicineare not helping or if you feel you are having side effects. Do not quit taking your medicines until you discuss it with your caregiver. If you are taking medicines that makes you drowsy, do not drive or use heavy equipment. Patients taking Coumadin or Lovenox - please see Anticoagulate Home Instructions. Home Education Information Influenza Vaccine (seasonal only): N/A (Not influenza vaccination season) Pneumonia Vaccine (year round): Declined. Immunization record has been reviewed and updated. No, none on file. TOBACCO CESSATION COUNSELING If you smoke, please quit. Avoid exposure to second hand smoke. Smoking cessation support is available at [employer] (5-325-476-TNMY(2624) or [employer]). Juan Pablo Brown does not smoke. We are concerned about your emotional health after discharge. If you are feeling alone, sad, or hopeless, a 24 hour suicide crisis and referral hotline is available at [employer] (8703) or toll-free at Instructions for Care: If you had an IV in place during your stay, please continue to monitor the site for the next 48 hours. Report any redness, swelling, drainage, or fever to your primary care physician. Follow-up appointment and/or referrals Card Given: Not applicable Keep all appointments. Write down any questions you may have. This way you will remember to ask these questions during your next visit. Questions / Concerns after Discharge: Contact your primary care provider with any questions you may have. Valuables in Safe: No Home Medications (Inhalers,Ointments, Insulins) Returned to Patient: Not applicable Vitals Signs BP: 119/82, Temp: 37 ??C (98.6 ??F) Oral, Pulse: 95, Resp: 18, SpO2: 97 % Supplies/equipment given or has at home: documented in this encounter Medications at Time of Discharge Medication Sig Dispensed Refills Start Date End Date unknown medication 1 Each by SEE ADMIN 0 INSTRUCTIONS route every morning. One Blood Pressure med and One Cholesterol med aspirin EC 81 MG tablet Take 81 mg by mouth 0 one time a day. Do not split or crush. pantoprazole (Protonix) Take 1 Tablet by mouth 30 Tablet 0 09/26/2021 10/26/2021 40 MG delayed-release every evening for 30 tablet days. Do not crush. PHENobarbital (Luminal) Take 1 Tablet by mouth 2 Tablet 0 09/26/2021 09/27/2021 64.8 MG tablet every 12 hours for 2 doses. PHENobarbital (Luminal) Take 1 Tablet by mouth 4 Tablet 0 09/27/2021 09/29/2021 32.4 MG tablet every 12 hours for 4 doses. Thiamine Mononitrate Take 500 mg by mouth 10 Tablet 0 09/2710/07/2021 250 MG Tablet one time a day for 10 days. amLODIPine (Norvasc) 5 Take 1 Tablet by mouth 30 Tablet 0 0 09/27/2021 10/27/2021 MG tablet one time a day for 30 days. folic acid 1 MG tablet Take 1 Tablet by mouth 10 Tablet 0 0 09/27/2021 10/07/2021 one time a day for 10 days. documented as of this encounter Ordered Prescriptions Prescription Sig Dispensed Refills Start Date End Date folic acid 1 MG tablet Take 1 Tablet by 10 Tablet 0 09/27/ 022 10/07/2021 mouth one time a day for 10 days. amLODIPine (Norvasc) 5 MG Take 1 Tablet by 30 Tablet 0 06/0 09/202110/27/2021 tablet mouth one time a day for 30 days. Thiamine Mononitrate 250 Take 500 mg by 10 Tablet 0 09/27/ 022 10/07/2021 MG Tablet mouth one time a day for 10 days. PHENobarbital (Luminal) Take 1 Tablet by 4 Tablet 0 202109/29/2021 32.4 MG tablet mouth every 12 hours for 4 doses. PHENobarbital (Luminal) Take 1 Tablet by 2 Tablet 0 202109/27/2021 64.8 MG tablet mouth every 12 hours for 2 doses. pantoprazole (Protonix) 40 Take 1 Tablet by 30 Tablet 0 2 10/26/2021 MG delayed-release tablet mouth every evening for 30 days. Do not crush. thiamine 250 MG Tablet Take 500 mg by 10 Tablet 0 2 09/26/2021 mouth one time a day for 10 days. PHENobarbital (Luminal) Take 1 Tablet by 4 Tablet 0 202109/26/2021 32.4 MG tablet mouth every 12 hours for 4 doses. PHENobarbital (Luminal) Take 1 Tablet by 2 Tablet 0 2 09/26/2021 64.8 MG tablet mouth every 12 hours for 1 day. pantoprazole (Protonix) 40 Take 1 Tablet by 30 Tablet 0 08/202109/26/2021 MG delayed-release tablet mouth every evening for 30 days. Do not crush. folic acid 1 MG tablet Take 1 Tablet by 10 Tablet 0 022 09/26/2021 mouth one time a day for 10 days. amLODIPine (Norvasc) 5 MG Take 1 Tablet by 30 Tablet 0 09/202109/26/2021 tablet mouth one time a day for 30 days. documented in this encounter Discharge Disposition Disposition Code Departure Means Destination Comments Home and/or Self Half-Way documented in this encounter Progress Notes Ana M Jackson RN - 09/26/2021 1:15 PM CDT Nursing Discharge Note Vitals: BP: 125/89, Temp: 37 ??C (98.6 ??F) Oral, Pulse: 118, Resp: 16, SpO2: 98 % Patient discharged to home at 1:41 PM via ambulating. Copy of AVS given to patient: yes. Patient accompanied by Friend. Valuables, personal belongings, medical equipment and medications returned to patient at discharge: Yes. Escorted to the hospital exit by OZZIE Viramontes and assisted to their vehicle. Ana M Jackson RN Miquel Mckeon MD - 09/25/2021 10:52 AM CDT Hospital Medicine Service Hospital Course Juan Pablo Brown is a 60 year old male with a history of alcohol abuse who presents with seizures. He states he usually drinks about 10 ounces of alcohol per day. He tried quitting two days ago and then this evening some friends were over and he had just had two shots of whiskey and then had a seizure estimated to have lasted about 4 minutes. He is looking for help with his drinking. He had beensober for about 10 years and started drinking about 4 years ago. Assessment/Plan Alcohol withdrawal syndrome with associated seizure -Patient had a witnessed seizure and was brought to the emergency room. Seizure reportedly lasted several minutes. -Patient was seen by CD and was agreeable to outpatient intervention. -Seizure precautions -Thiamine and folic acid -CIWA protocol with phenobarbital taper -Patient has not required benzodiazepines in over 24 hours -Electrolyte replacement protocol including magnesium, potassium and phosphorus Essential hypertension -Blood pressure elevated -Continue amlodipine 5 mg -Clonidine 0.1 mg twice a day as needed for systolic blood pressure greater than 180 and diastolic greater than 105 Hyperlipidemia -Stable DVT Prophylaxis Measures: Leonard VTE risk score <4, VTE prophylaxis not generally indicated Active anticoagulants: Transfer / Discharge plans: Expected Discharge Date: In am Code Status & Serious Illness Conversations (ACP Navigator): Full Code Family Communications: Primary Emergency Contact: Mihir Zapien Subjective Patient appears closer to baseline today but not quite there yet. He is able to answer most questions appropriately but still remains a bit disoriented. We will continue phenobarbital taper and continue CIWA. Anticipated discharge in a.m. Objective Vitals T: 37.3 ??C (99.2 ??F) BP: (!) 130/90 HR: 109 RR: 18 SpO2: 99 % Weights:83.3 kg (183 lb 10.3 oz) BMI: 27.18 Admit Wt: 86.2 kg (190 lb) (Graphs) Chart Review ICU Labs Micro Rad AntiCoag Mar(Hx) Glu / DM I/O Graph I/O (BM) Pain Blood Home Meds PDMP Lab/Path Telemetry: All lines/tubes etc other than PIV's: Physical Exam HENT: Head: Normocephalic. Nose: Nose normal. Mouth/Throat: Mouth: Mucous membranes are moist. Eyes: Pupils: Pupils are equal, round, and reactive to light. Cardiovascular: Rate and Rhythm: Regular rhythm. Tachycardia present. Pulses: Normal pulses. Pulmonary: Effort: Pulmonary effort is normal. Abdominal: General: Abdomen is flat. Palpations: Abdomen is soft. Musculoskeletal: Cervical back: Normal range of motion. Skin: General: Skin is warm. Capillary Refill: Capillary refill takes less than 2 seconds. Neurological: General: No focal deficit present. Mental Status: He is oriented to person, place, and time and easily aroused. Psychiatric: Mood and Affect: Mood normal. Behavior: Behavior normal. Miquel Mckeon MD Miquel Mckeon MD - 09/24/2021 11:[address] [facility] Course Juan Pablo Brown is a 60 year old male with a history of alcohol abuse who presents with seizures. He states he usually drinks about 10 ounces of alcohol per day. He tried quitting two days ago and then this evening some friends were over and he had just had two shots of whiskey and then had a seizure estimated to have lasted about 4 minutes. He is looking for help with his drinking. He had beensober for about 10 years and started drinking about 4 years ago. Assessment/Plan Alcohol withdrawal syndrome with associated seizure -Patient had a witnessed seizure and was brought to the emergency room. Seizure reportedly lasted several minutes. -Patient was seen by CD and was agreeable to outpatient intervention. -Seizure precautions -Thiamine and folic acid -CIWA protocol with phenobarbital. Use Ativan as needed -Electrolyte replacement protocol including magnesium, potassium and phosphorus -Potassium replaced today Essential hypertension -Blood pressure elevated -Amlodipine 5 mg started -Clonidine 0.1 mg twice a day as needed for systolic blood pressure greater than 180 and diastolic greater than 105 Hyperlipidemia -Stable DVT Prophylaxis Measures: Leonard VTE risk score <4, VTE prophylaxis not generally indicated Active anticoagulants: Transfer / Discharge plans: Expected Discharge Date: Code Status & Serious Illness Conversations (ACP Navigator): Full Code Family Communications: Primary Emergency Contact: Mihir Zapien Subjective No acute events yesterday. Patient received 2 mg of Ativan and slept most of the day yesterday. On waking up he was given p.o. phenobarbital and is slowly improving. He remains mildly tachycardic and drowsy but improving. Objective Vitals T: 37.3 ??C (99.2 ??F) BP: 122/73 HR: 101 RR: 18 SpO2: 98 % Weights:83.3 kg (183 lb 10.3 oz) BMI: 27.18 Admit Wt: 86.2 kg (190 lb) (Graphs) Chart Review ICU Labs Micro Rad AntiCoag Mar(Hx) Glu / DM I/O Graph I/O (BM) Pain Blood Home Meds PDMP Lab/Path Telemetry: All lines/tubes etc other than PIV's: Physical Exam HENT: Head: Normocephalic. Nose: Nose normal. Mouth/Throat: Mouth: Mucous membranes are moist. Eyes: Pupils: Pupils are equal, round, and reactive to light. Cardiovascular: Rate and Rhythm: Regular rhythm. Tachycardia present. Pulses: Normal pulses. Pulmonary: Effort: Pulmonary effort is normal. Abdominal: General: Abdomen is flat. Palpations: Abdomen is soft. Musculoskeletal: Cervical back: Normal range of motion. Skin: General: Skin is warm. Capillary Refill: Capillary refill takes less than 2 seconds. Neurological: General: No focal deficit present. Mental Status: He is oriented to person, place, and time and easily aroused. Psychiatric: Mood and Affect: Mood normal. Behavior: Behavior normal. Miquel Mckeon MD Denae Dickens LGSW - 09/24/2021 11:30 AM CDT Spoke with title i teacher and chart reviewed, pt on tele-sitter, pulling at IV. No plans to dc at this time. Will continue to follow. Ana M Jackson RN - 09/24/2021 10:05 AM CDT Received verbal consent from patient to update his brother Brian via phone. Chandu Gifford RN - 09/23/2021 3:54 PM CDT Brother, Brian Brown, called and was already aware of patient's admission to the hospital - Brian was informed that we cannot share any information about the patient's care until the patient gives us consent. Brian understood this and just wanted staff to know that the two friends in town (Curry and Jace)are leaving tomorrow and the parents are unable to help in their old age, so he is the only one available. If the patient becomes alert enough to ask: Brian's # is Addendum: Patient became more alert and gave verbal consent to update brother, Biran. YT Chandu Gifford RN - 09/23/2021 12:35 PM CDT Patient's friend, Curry, updated as he was the only contact for the patient and patient remains confused at this time. Curry reported to curriculum writer that the patient did not want his parents aware of the situation. Curry and another friend, Jace, will be in the relative area until the patient is ready for discharge and they can pick him up or patient's disposition is secured. Curry also reported that the patient has a brother. Denae Dickens LGSW - 09/23/2021 10:58 AM CDT EMR reviewed. Pt seen by CD counselor yesterday and is not interested in chemical dependency services at this time. Attempted to see pt. Pt noted to be sleeping in chair. Spoke with 1:1, pt just received ativan due to agitation. Case Management will continue to follow and assist with discharge needs. Miquel Mckeon MD - 09/23/2021 10:[address] [facility] Course Juan Pablo Brown is a 60 year old male with a history of alcohol abuse who presents with seizures. He states he usually drinks about 10 ounces of alcohol per day. He tried quitting two days ago and then this evening some friends were over and he had just had two shots of whiskey and then had a seizure estimated to have lasted about 4 minutes. He is looking for help with his drinking. He had beensober for about 10 years and started drinking about 4 years ago. Assessment/Plan Alcohol withdrawal syndrome with associated seizure -Patient had a witnessed seizure and was brought to the emergency room. Seizure reportedly lasted several minutes. -Patient was seen by CD and was agreeable to outpatient intervention. -Seizure precautions -Thiamine and folic acid -CIWA protocol initiated with benzodiazepines initially however switched to phenobarbital. Patient slowly improving -Electrolyte replacement protocol including magnesium, potassium and phosphorus Essential hypertension -Blood pressure elevated -Amlodipine 5 mg started -Clonidine 0.1 mg twice a day as needed for systolic blood pressure greater than 180 and diastolic greater than 105 Hyperlipidemia -Stable DVT Prophylaxis Measures: Leonard VTE risk score <4, VTE prophylaxis not generally indicated Active anticoagulants: Transfer / Discharge plans: Expected Discharge Date: Code Status & Serious Illness Conversations (ACP Navigator): Full Code Family Communications: Subjective Juan Pablo Brown was very agitated yesterday and not responding adequately to benzodiazepines. He was switched to phenobarbital with some response however still needs as needed Ativan when agitated. He was agreeable for the most part to CD intervention and outpatient rehab and follow-up. Objective Vitals T: 37 ??C (98.6 ??F) BP: 115/78 HR: 101 RR: 20 SpO2: 97 % Weights:83.3 kg (183 lb 10.3 oz) BMI: 27.18 Admit Wt: 86.2 kg (190 lb) (Graphs) Chart Review ICU Labs Micro Rad AntiCoag Mar(Hx) Glu / DM I/O Graph I/O (BM) Pain Blood Home Meds PDMP Lab/Path Telemetry: All lines/tubes etc other than PIV's: Physical Exam HENT: Head: Normocephalic. Nose: Nose normal. Mouth/Throat: Mouth: Mucous membranes are dry. Eyes: Pupils: Pupils are equal, round, and reactive to light. Cardiovascular: Rate and Rhythm: Regular rhythm. Tachycardia present. Pulses: Normal pulses. Pulmonary: Effort: Pulmonary effort is normal. Abdominal: General: Abdomen is flat. Palpations: Abdomen is soft. Musculoskeletal: Cervical back: Normal range of motion. Skin: General: Skin is warm. Capillary Refill: Capillary refill takes less than 2 seconds. Neurological: General: No focal deficit present. Mental Status: He is alert and oriented to person, place, and time. Psychiatric: Mood and Affect: Mood normal. Behavior: Behavior normal. Miquel Mckeon MD Pavan Martinez RN - 09/22/2021 11:20 AM CDT Juan Pablo Brown admitted to 6013/1 unit from emergency department. Transported via wheelchair with IV Pump escorted by Luke. Notification of admission: no one. Handoff received from OZZIE Bartholomew. Belongings verified: Yes See belongings flowsheet. Pavan Martinez RN Miquel Mckeon MD - 09/22/2021 9:23 AM CDT [facility] Medicine Service Hospital Course Juan Pablo Brown is a 60 year old male with a history of alcohol abuse who presents with seizure. He states he usually drinks about 10 ounces of alcohol per day. He tried quitting two days ago andthen this evening some friends were over and he had just had two shots of whiskey and then had a seizure estimated to have lasted about 4 minutes. He is looking for help with his drinking. He had been sober for about 10 years and started drinking about 4 years ago. Assessment/Plan : Alcohol withdrawal syndrome with associated seizure -Patient had a witnessed seizure and was brought to the emergency room. Seizure reportedly lasted around 5 minutes. -Patient has expressed interest in assistance regarding his alcohol use disorder. -Seizure precautions -Chemical dependency consulted -Thiamine and folic acid -CIWA protocol initiated with benzodiazepines -Electrolyte replacement including magnesium, potassium and phosphorus Essential hypertension -Blood pressure elevated -Amlodipine 5 mg started -Clonidine 0.1 mg twice a day as needed for systolic blood pressure greater than 180 and diastolic greater than 105 Hyperlipidemia -Stable DVT Prophylaxis Measures: Active anticoagulants: Transfer / Discharge plans: Expected Discharge Date: Code Status & Serious Illness Conversations (ACP Navigator): No Order Family Communications: Subjective Patient feels okay reportedly. He has no recollection of what happened yesterday and what brought him to the hospital. He has had no further seizure episodes since arriving in the emergency room. He has expressed interest in assistance to quit drinking. Objective Vitals T: 36.7 ??C (98.1 ??F) BP: (!) 140/102 HR: 102 RR: 24 SpO2: 94 % Weights:86.2 kg (190 lb) BMI: Admit Wt: 86.2 kg (190 lb) (Graphs) Chart Review ICU Labs Micro Rad AntiCoag Mar(Hx) Glu / DM I/O Graph I/O (BM) Pain Blood Home Meds PDMP Lab/Path Telemetry: All lines/tubes etc other than PIV's: Physical Exam HENT: Head: Normocephalic. Nose: Nose normal. Mouth/Throat: Mouth: Mucous membranes are dry. Eyes: Pupils: Pupils are equal, round, and reactive to light. Cardiovascular: Rate and Rhythm: Regular rhythm. Tachycardia present. Pulses: Normal pulses. Pulmonary: Effort: Pulmonary effort is normal. Abdominal: General: Abdomen is flat. Palpations: Abdomen is soft. Musculoskeletal: Cervical back: Normal range of motion. Skin: General: Skin is warm. Capillary Refill: Capillary refill takes less than 2 seconds. Neurological: General: No focal deficit present. Mental Status: He is alert and oriented to person, place, and time. Psychiatric: Mood and Affect: Mood normal. Behavior: Behavior normal. Miquel Mckeon MD documented in this encounter H&P Notes Liam Rodriguez MD - 09/22/2021 2:10 AM CDT 09/22/2021 HOSPITALIST ADMISSION NOTE Liam Rodriguez MD [facility] 60 year old male Admission Date & Time: 09/21/2021 10:50 PM Code Status: No Order Primary Care Provider / Referring Physician: No primary care provider on file. Chief Complaint: Seizure HPI: Juan Pablo Brown is a 60 year old male with a history of alcohol abuse who presents with seizure. He states he usually drinks about 10 ounces of alcohol per day. He tried quitting two days ago and then this evening some friends were over and he had just had two shots of whiskey and then hada seizure estimated to have lasted about 4 minutes. He is looking for help with his drinking. He hadbeen sober for about 10 years and started drinking about 4 years ago. Allergies Allergen Reactions ??? Lisinopril Unknown Pt unsure Past Medical History: Diagnosis Date ??? Essential (primary) hypertension ??? Mixed hyperlipidemia ??? Uncomplicated alcohol abuse Prior to Admission medications Not on File Family History Problem Relation Age of Onset ??? Addiction Negative Family Hx Social history: non smoker, drinks 10 ounces of alcohol daily ROS: Complete review of symptoms negative except as noted Physical Exam: Vitals: 09/22/21 0115 BP: 128/85 Pulse: 108 Temp: TempSrc: Resp: 25 Weight: SpO2: 93% There is no height or weight on file to calculate BMI. General- not in distress Head: normocephalic, atraumatic Eyes: EOMI, PERRL Ears: No visible abnormalities and no drainage Nose: no septal deviation, no trauma, no drainage Throat: clear on inspection Neck: no JVD, no bruits Lungs: CTA throughout CVS: tachycardic but regular without murmur, rub or gallop Abdomen: +BS, soft, non tender,no guarding, no rigidity. No palpable masses or hepatosplenomegaly Ext: no edema feet Skin: no new rash LN: No cervical, axillary or inguinal lymphadenopathy Musculoskeletal- no major jt tenderness Neuro: AAO times 3, cranial nerves 2-12 intact, strength 5/5 with pocket cutter strength and dorsi and plantar flexion of the feet bilaterally, normal sensation to light touch throughout Psych: normal affect Diagnostics: Recent Labs 09/21/21 2322 WBC 7.6 HGB 12.3* PLTS 163 Recent Labs 09/21/21 2322 NA 135 K 3.2* CL 93* BUN 10 CREAT 0.98 GLUC 120* CA 8.4 PHOS 2.2* Imaging: Recent Results (from the past 24 hour(s)) BASIC METABOLIC PANEL Result Value Ref Range Sodium 135 134 - 143 mEq/L Potassium 3.2 (L) 3.4 - 5.1 mEq/L Chloride 93 (L) 99 - 110 mEq/L Carbon Dioxide 16 (L) 19 - 29 mEq/L Anion Gap 26.0 (H) 3.0 - 15.0 mEq/L Blood Urea Nitrogen 10 5 - 24 mg/dL Creatinine 0.98 0.70 - 1.20 mg/dL Glomerular Filtration Rate >60 >60 mL/min/1.73 m*2 Calcium 8.4 8.4 - 10.5 mg/dL Glucose 120 (H) 70 - 99 mg/dL Narrative Current ADA criteria for Glucose: Normal: 70-99 mg/dL Impaired Fasting Glucose: 100-125 mg/dL Diabetes Mellitus: at or above 126 mg/dL The diagnosis of diabetes must be confirmed on a subsequent day by measuring Fasting Plasma Glucose,2-hr PG or random plasma glucose (if symptoms are present). HEMOGRAM/DIFFERENTIAL Result Value Ref Range WBC 7.6 3.2 - 11.0 10*9/L RBC 3.85 (L) 4.14 - 5.76 10*12/L HGB 12.3 (L) 12.9 - 16.9 g/dL HCT 34.9 (L) 38.4 - 49.7 % MCV 90.6 81.4 - 99.0 fL MCH 31.9 26.7 - 33.1 pg MCHC 35.2 31.6 - 35.5 g/dL RDW 13.0 11.3 - 14.6 % PLT 163 130 - 375 10*9/L Neutrophils % 75.8 % Lymphocytes % 8.7 % Monocytes % 11.5 % Eosinophils % 2.8 % Basophils % 0.7 % Immature Granulocytes % 0.5 % Neutrophils Absolute 5.7 1.5 - 7.6 10*9/L Lymphocytes Absolute 0.7 (L) 0.8 - 3.3 10*9/L Monocytes Absolute 0.9 0.2 - 0.9 10*9/L Eosinophils Absolute 0.2 0.0 - 0.4 10*9/L Basophils Absolute 0.1 0.0 - 0.1 10*9/L Immature Granulocytes Absolute 0.04 0.00 - 0.06 10*9/L PHOSPHORUS Result Value Ref Range Phosphorus 2.2 (L) 2.5 - 4.6 mg/dL MAGNESIUM Result Value Ref Range Magnesium 0.8 (LL) 1.8 - 2.7 mg/dL ALCOHOL Result Value Ref Range Alcohol 29.0 (H) <=10.0 mg/dL EKG 12-LEAD Result Value Ref Range Ventricular Rate 116 BPM Atrial Rate 116 BPM P-R Interval 130 ms QRS Duration 90 ms QT 352 ms QTc 489 ms P [place] 10 degrees R [place] -13 degrees T [place] 33 degrees Narrative Confirming Doc Sinus tachycardia Minimal voltage criteria for LVH, may be normal variant ( R in aVL ) Inferior infarct ,age indeterminate Cannot rule out Anterior infarct ,age indeterminate Abnormal ECG No previous ECGs available Reviewed independently by myself RAPID SARS-COV-2 RNA (COVID-19), MOLECULAR DETECTION Specimen: Nasal; Swab Result Value Ref Range SARS-CoV-2 RNA (COVID-19) Negative Negative/Not Detected Narrative Test detects target RNA by real-time polymerase chain reaction (PCR) on the [employer] GeneXpert System. Results should be used in combination with clinical observations, patient history and epidemiological information. Results from this test should not be used as the sole basis for treatment or other patient management decisions. The SARS-CoV-2 test is currently only for use under the Food and Drug Administration's Emergency UseAuthorization. Additional information about conditions of authorization for this test can be found at: https://www.fda.gov/medical-devices/gsqqdngay-fwgejgmvxd-mdzudwg-devices/emergen jp-xnw-dqmtbnlpnabpqx Assessment AND Plan: Active Hospital Problems Alcohol withdrawal seizure without complication (HCC): presents with witnessed seizure activity in the context of trying to quit drinking. Will assign to observation, CIWA, seizure precautions, chemical dependency consult, thiamine. Will keep NPO for now Alcohol abuse: as above Hypokalemia: will replace with IV fluids and replace his phosphorus with the potassium salt Hypophosphatemia; replace and follow Hypomagnesemia: replace and follow Essential hypertension: monitor BP for now Mixed hyperlipidemia: will hold meds for now I expect patient will be in hospital for less than 2 nights Brian Rodriguez M.D. documented in this encounter Consult Notes Amari Lee - 09/22/2021 1:40 PM CDTAssociated Order(s): IP CONSULT TO CHEMICAL DEPENDENCY Juan Pablo agreed to the [facility] chemical dependency consultation, 10 minutes. Patient was pleasant and cooperative. However, immediately after introducing myself, patient stated I am already with a program and indicated he does not need or want additional chemical dependency services. I asked patient what program he is already enrolled with and it took him a bit of time to remember, then stated [facility]. Patient states the program offers 3 days per week of outpatient. Hegoes on to say that he has experienced 10 years of sobriety in the past, so I know how to stay sober. Patient is recommended to let his program in [facility] know about his recent alcohol use and severealcohol withdrawal complications. Patient is also recommended to attend 12 step support group meetings. Patient verbally complied regarding reporting his status to the outpatient program but states he is not interested in AA. Patient also accepted my [facility] contact information. I also did a program search in [facility], finding one outpatient program called [facility] that does provide outpatient chemical dependency services, so hopefully patient is enrolled in the program, given the fact he is currently in [place]. Kenzie Kohli PharmD - 09/22/2021 3:10 AM CDT ACCOUNTING METHODS ANALYST Medication History obtained by: Kenzie Kohli PharmD Home medication list updated using: patient Spoke with the patient? Yes Number of medications added to profile: 3 Name of medications added: Unknown blood pressure med Unknown cholesterol med Aspirin Number of minutes for this reconciliation: 10 Recommendations/other information: Patient reports poor compliance with Aspirin as well as one unknown blood pressure medication and one unknown cholesterol medication. Prior to Admission Medications Prescriptions Last Dose Informant Patient Reported? Taking? aspirin EC 81 MG tablet Past Week at Unknown time Patient Yes Yes Sig: Take 81 mg by mouth one time a day. Do not split or crush. unknown medication Past Week at Unknown time Patient Yes Yes Si Each by SEE ADMIN INSTRUCTIONS route every morning. One Blood Pressure med and One Cholesterol med Facility-Administered Medications: None If questions arise, please call the central pharmacy. Thank you, Kenzie Kohli PharmD 09/22/2021, 3:10 AM documented in this encounter ED Notes [place] Alas RN - 09/22/2021 10:55 AM CDT Admitted report called. Mostly resting at this tme [place] Alas RN - 09/22/2021 10:00 AM CDT Helped use the urinal. Has been resting. Lights dimmed. [place] Alas RN - 09/22/2021 9:15 AM CDT Seems to be dozing [place] Alas RN - 09/22/2021 8:55 AM CDT Restless more tremors ativan repeated. Helped patient make a couple phone calls Florida Alas RN - 09/22/2021 8:45 AM CDT Restless voided some in the urinal dumped some on the bed. Somehow at this time also pulled iv out. Bed changed iv restarted. [place] Alas RN - 09/22/2021 8:15 AM CDT Seems to be dozing [place] Alas RN - 09/22/2021 7:45 AM CDT Did void again did use the urinal. Plan explained. Anna Ramos HUC - 09/22/2021 7:20 AM CDT Bed placement paged at 7:20. YT Mary Cummings RN - 09/22/2021 7:18 AM CDT Verbal report received from off-going RN. Florida Alas RN - 09/22/2021 7:17 AM CDT Incontinent of urine tried to use the urinal but missed. Patient changed bed changed Anna Ramos HUC - 09/22/2021 7:15 AM CDT Called for bed assignment , no bed available. Nidia Kennedy RN - 09/22/2021 3:33 AM CDT Bed alarm on for safety. YT Nidia Kennedy RN - 09/22/2021 3:22 AM CDT Pt walking halls before going to bed. IV's infusing. YT Ernst Black HUC - 09/22/2021 1:35 AM CDT Stat Doc put pt on the waitlist Ernst Black [facility] - 09/22/2021 1:15 AM CDT Called Stat Doc Ernst Black [facility] - 09/22/2021 1:14 AM CDT [facility] is on a case by case, and they have no ICU beds Ernst Black [facility] - 09/22/2021 1:04 AM CDT Called [facility] transferline Nidia Kennedy RN - 09/22/2021 12:45 AM CDT Emesis x2 Nidia Kennedy RN - 09/22/2021 12:40 AM CDT Emesis Abdirahman Henriquez DO - 09/21/2021 11:21 PM CDT Patient: Juan Pablo Brown Means of Arrival: Ambulance Chief Complaint: Seizures and Withdrawal- Alcohol History of Present Illness: Juan Pablo Brown is a 60 year old male who presents to [facility] for Patient presents with: Seizures Withdrawal- Alcohol Reports that he normally drinks around 10 ounces of whiskey daily. States that he has been doing this for years. He denies any other substance abuse. He reports that today, while with friends, they stated that he had a seizure for under 5 minutes. Reports that his arms and legs were shaking. He statesthat he has not had any whiskey for the past couple of days as he wanted to stop drinking cold turkey. He believes he has had 1 alcohol withdrawal seizure in the past but does not remember when. He reports that while with his friends, about an hour ago, he did have 2 shots of whiskey. He presently denies any headache, sensation of head fullness, chest pain, shortness of breath, recent viral illnesses, fever/chills, formication, anxiety. Review of Systems: Review of Systems Constitutional: Negative for chills and fever. HENT: Negative for congestion and voice change. Eyes: Negative for discharge. Respiratory: Negative for cough, chest tightness and shortness of breath. Cardiovascular: Negative for chest pain and leg swelling. Gastrointestinal: Negative for abdominal pain, nausea and vomiting. Genitourinary: Negative for dysuria, flank pain and frequency. Musculoskeletal: Negative for back pain and gait problem. Skin: Negative for color change and rash. Neurological: Positive for seizures. Negative for dizziness, light-headedness and numbness. Allergies Allergen Reactions ??? Lisinopril Unknown Pt unsure Prior to Admission Medication List No Medications Reported Past Medical History: No past medical history on file. Past Surgical History: No past surgical history on file. Family History: No family history on file. Social History: Social History Substance Use Topics ??? Alcohol use: Yes Social History Substance and Sexual Activity Drug Use Not on file Exam: Initial Vitals Most Recent Vitals Temp: 98.1 ??F (36.7 ??C) (09/21/212251) Temp: 98.1 ??F (36.7 ??C) (09/21/212251) Pulse: 115 (09/21/212251) Pulse: 108 (09/22/21114) Resp: 16 (09/21/212251) Resp: 25 (09/22/21114) BP: (!) 157/113 (09/21/212251) BP: 128/85 (09/22/21114) SpO2: 98 % (09/21/212251) SpO2: 93 % (09/22/21114) Weight: 86.2 kg (190 lb) (09/21/212251) Physical Exam: Physical Exam Constitutional: Appearance: Normal appearance. HENT: Head: Normocephalic and atraumatic. Right Ear: External ear normal. Left Ear: External ear normal. Nose: Nose normal. Mouth/Throat: Mouth: Mucous membranes are moist. Pharynx: Oropharynx is clear. Eyes: Conjunctiva/sclera: Conjunctivae normal. Pupils: Pupils are equal, round, and reactive to light. Cardiovascular: Rate and Rhythm: Normal rate and regular rhythm. Pulmonary: Effort: No respiratory distress. Abdominal: General: There is no distension. Palpations: Abdomen is soft. Musculoskeletal: General: No swelling. Normal range of motion. Cervical back: Normal range of motion and neck supple. Skin: General: Skin is warm and dry. Neurological: Mental Status: He is alert. Mental status is at baseline. Cranial Nerves: No cranial nerve deficit. Sensory: No sensory deficit. Motor: No weakness. Coordination: Coordination normal. Psychiatric: Mood and Affect: Mood normal. Mood is not anxious. Thought Content: Thought content normal. Lab Results: Results for orders placed or performed during the hospital encounter of 09/21/21 RAPID SARS-COV-2 RNA (COVID-19), MOLECULAR DETECTION Collection Time: 09/22/21 12:45 AM Specimen: Nasal; Swab Result Value Ref Range SARS-CoV-2 RNA (COVID-19) Negative Negative/Not Detected BASIC METABOLIC PANEL Collection Time: 09/21/21 11:22 PM Result Value Ref Range Sodium 135 134 - 143 mEq/L Potassium 3.2 (L) 3.4 - 5.1 mEq/L Chloride 93 (L) 99 - 110 mEq/L Carbon Dioxide 16 (L) 19 - 29 mEq/L Anion Gap 26.0 (H) 3.0 - 15.0 mEq/L Blood Urea Nitrogen 10 5 - 24 mg/dL Creatinine 0.98 0.70 - 1.20 mg/dL Glomerular Filtration Rate >60 >60 mL/min/1.73 m*2 Calcium 8.4 8.4 - 10.5 mg/dL Glucose 120 (H) 70 - 99 mg/dL HEMOGRAM/DIFFERENTIAL Collection Time: 09/21/21 11:22 PM Result Value Ref Range WBC 7.6 3.2 - 11.0 10*9/L RBC 3.85 (L) 4.14 - 5.76 10*12/L HGB 12.3 (L) 12.9 - 16.9 g/dL HCT 34.9 (L) 38.4 - 49.7 % MCV 90.6 81.4 - 99.0 fL MCH 31.9 26.7 - 33.1 pg MCHC 35.2 31.6 - 35.5 g/dL RDW 13.0 11.3 - 14.6 % PLT 163 130 - 375 10*9/L Neutrophils % 75.8 % Lymphocytes % 8.7 % Monocytes % 11.5 % Eosinophils % 2.8 % Basophils % 0.7 % Immature Granulocytes % 0.5 % Neutrophils Absolute 5.7 1.5 - 7.6 10*9/L Lymphocytes Absolute 0.7 (L) 0.8 - 3.3 10*9/L Monocytes Absolute 0.9 0.2 - 0.9 10*9/L Eosinophils Absolute 0.2 0.0 - 0.4 10*9/L Basophils Absolute 0.1 0.0 - 0.1 10*9/L Immature Granulocytes Absolute 0.04 0.00 - 0.06 10*9/L MAGNESIUM Collection Time: 09/21/21 11:22 PM Result Value Ref Range Magnesium 0.8 (LL) 1.8 - 2.7 mg/dL ALCOHOL Collection Time: 09/21/21 11:22 PM Result Value Ref Range Alcohol 29.0 (H) <=10.0 mg/dL PHOSPHORUS Collection Time: 09/21/21 11:22 PM Result Value Ref Range Phosphorus 2.2 (L) 2.5 - 4.6 mg/dL Imaging Results: Imaging Results None Emergency Department Course: ED Course as of 09/22/21 0146 MonSep 22, [id number] EKG (my interpretation): ST 116bpm, poor R wave progression, non specific TWI III, no acute YAMINI/STD, QTC 489 [LH] ED Course User Index [LH] Abdirahman Henriquez, DO Medications magnesium sulfate in water infusion 4 g (4 g Intravenous New Bag 09/22/21 0020) Followed by magnesium sulfate 2 g in 50 mL water for infusion (pre-mix) (has no administration in time range) diazePAM (Valium) tablet 5 mg (5 mg Oral Given 09/21/212334) LORazepam (Ativan) injection 1 mg (1 mg IV Push Given 09/21/212336) sodium chloride 0.9% (NS) infusion 1,000 mL (1,000 mL Intravenous New Bag 09/21/212344) therapeutic multivitamin tablet 1 Tablet (1 Tablet Oral Given 09/21/214) thiamine (B-1) injection 200 mg (200 mg IV Push Given 09/21/216) folic acid tablet 1 mg (1 mg Oral Given 09/21/212334) famotidine (PF) (Pepcid) injection 20 mg (20 mg IV Push Given 09/21/212336) ondansetron (ZOFRAN) injection 4 mg (4 mg IV Push Given 09/22/21 0001) potassium chloride (Klor-Con) packet 40 mEq (40 mEq Oral Given 09/22/21 0038) prochlorperazine (COMPAZINE) injection 10 mg (10 mg IV Push Given 09/22/214) Procedures: Procedures Assessment: Alcohol withdrawal seizure with complication (HCC) (primary encounter diagnosis) Tachycardia Hypomagnesemia Hypokalemia Hypophosphatemia Plan: Discharge Prescriptions None MDM Number of Diagnoses or Management Options Alcohol withdrawal seizure with complication (HCC) Hypokalemia Hypomagnesemia Hypophosphatemia Tachycardia Diagnosis management comments: Juan Pablo Brown is a 60 year old male presenting to [facility] with: Patient presents with: Seizures Withdrawal- Alcohol (ED Course may have additional information) Presents emergency department from home for likely alcohol withdrawal seizure Reports that he has a remote history of a seizure which she believes was due to alcohol cessation Presently drinks about 10 ounces of whiskey daily Volunteers that he has not had alcohol for a couple days: States that he did have 2 shots of whiskeylate this evening with friends and did have a seizure soon after taking the shots of whiskey, it would appear that the alcohol is not yet in his system and that his seizure was 2/2 withdrawal as he is slightly diaphoretic and tachycardic on arrival. Labs consistent with chronic alcohol use/abuse: for his hypomagnesemia he will receive 6 g of magnesium, 20 mill equivalents of potassium was attempted in the ED but he did vomit this up Heart rate improving with fluid administration Additionally he was given 1 of IV Ativan and 5 of oral Valium in anticipation of withdrawal symptoms Thiamine, folate, multivitamin administered to the ED He will be placed on a hold at [facility] as we are presently out of beds, in the meantime hewill be an ED border at our institution Amount and/or Complexity of Data Reviewed Clinical lab tests: reviewed Tests in the medicine section of CPT??: reviewed Disposition: ED Disposition ED Disposition Admit Condition -- Comment -- Abdirahman Henriquez DO 09/22/21 0721 Nidia Kennedy RN - 09/21/2021 11:08 PM CDT Pt does not recall seizure incident. Stated he has had seizures in the past but does not take medications for seizures. Suzanne Barone RN - 09/21/2021 10:51 PM CDT Pt had a witnessed seizure, friends who were intoxicated thought it lasted 4 minutes. Pt states he is attempting to cut back on his drinking. He had two shots of alcohol prior to the seizure tonight. He states usually he drinks 10 ounces of whisky a day. He is alert and oriented on arrival. States heshad one seizure in the past. Pascale Lawrence HUC - 09/21/2021 10:50 PM CDT Bed: 19 Expected date: Expected time: Means of arrival: Comments: documented in this encounter Miscellaneous Notes Care Plan - Ana M Jackson RN - 09/26/2021 1:15 PM CDT VSS. HR slightly elevated with the highest being 118 bpm. Remains on RA. Denies pain. Oriented x4. Denies N/V. CIWAs remain at 0. No significant changes with neuro assessments. Up IND. Frequently walking IND in the halls. Repositions IND. Discharge orders placed and completed. IV removed upon discharge with no complications. Discharging home with friends. Problem: Discharge Planning Goal: No barriers to discharge Outcome: Progressing Flowsheets (Taken 09/26/2021 1209) Discharge Planning Care Plan: ??? Identify discharge barriers ??? Patient/family/caregiver participation promotion ??? Assess need for help at home ??? Collaboration with State Federal Relations Deputy Director/Case Management Problem: Skin Goal: Skin integrity within defined limits Outcome: Maintaining Flowsheets (Taken 09/26/2021 0827) Skin Integrity Care Plan: Ongoing surveillance of impaired skin Problem: Risk of Pressure Injury Goal: Absence of new pressure injury Outcome: Maintaining Flowsheets (Taken 09/26/2021 0827) Sensory Activity Mobility Friction Care Plan: ??? Encourage activity as tolerated ??? Elevate heels off bed ??? Moisturize skin daily ??? HOB at 30 degrees or less unless contraindicated ??? Keep skin clean Moisture Care Plan: ??? Address cause of moisture ??? Linen changes as needed to keep skin dry Nutrition Care Plan: ??? Encourage intake ??? Assess oral care needs and assist as needed Problem: Fall Risk Goal: Absence of falls Outcome: Maintaining Flowsheets (Taken 09/26/2021 0832) Fall Risk Care Plan/Interventions: ??? Mobilize patient ??? Fall risk charm for high fall risk ??? Utilize assistive devices as indicated Patient Goals: The patient centered goal for this shift:: to go home (09/26/21 0832). Evaluation of patient goal progress: met Patient Education - Ana M Jackson RN - 09/26/2021 12:44 PM CDT [id number] Phenobarbital Oral Tablet Uses This medicine is used for the following purposes: ?? jaundice ?? seizures Instructions This medicine may be taken with or without food. You may take with food to prevent stomach upset. Store at room temperature in a dry place. Do not keep in the bathroom. Keep the medicine away from heat and light. If you are using this medicine regularly, it is important to take each dose of medicine on time. Keep taking the medicine even if you feel well. If you forget to take a dose on time, take it as soon as you remember. If it is almost time for the next dose, do not take the missed dose. Return to your normal dosing schedule. Do not take 2 doses ofthis medicine at one time. Please tell your doctor and pharmacist about all the medicines you take. Include both prescription and [id number] medicines. Also tell them about any vitamins, herbal medicines, or anything else you take for your health. Contact your doctor if your seizures do not improve or worsen while on this medicine. If your symptoms do not improve or they worsen while on this medicine, contact your doctor. Do not suddenly stop taking this medicine. Check with your doctor before stopping. This medicine may decrease the effectiveness of some controls which use hormones (such as control pills and patches). Use an extra form of control, such as condoms, while on this medicine. Use effective control to avoid . It is very important that you follow your doctor's instructions for all blood tests. It is very important that you keep all appointments for medical exams and tests while on this medicine. Cautions This medicine can be habit-forming. If you use this medicine regularly for a long time, it can lead to withdrawal symptoms when you stop. Please use this medicine only as directed. Tell your doctor and pharmacist if you ever had an allergic reaction to a medicine. Symptoms of an allergic reaction can include trouble breathing, skin rash, itching, swelling, or severe dizziness. Do not use the medication any more than instructed. Your ability to stay alert or to react quickly may be impaired by this medicine. Do not drive or operate machinery until you know how this medicine will affect you. Please check with your doctor before drinking alcohol while on this medicine. Family should check on the patient often. Call the doctor if patient becomes more depressed, has thoughts of suicide, or shows changes in behavior. Call the doctor if there are any signs of confusion or unusual changes in behavior. Tell the doctor or pharmacist if you are , planning to be , or . Do not use this medicine if you are . If you become while on this medicine, contactyour doctor immediately. Do not take Sharpes's wort while on this medicine. Ask your pharmacist if this medicine can interact with any of your other medicines. Be sure to tell them about all the medicines you take. Please tell all your doctors and dentists that you are on this medicine before they provide care. Do not start or stop any other medicines without first speaking to your doctor or pharmacist. Call your doctor right away if you notice slow or shallow breathing. Do not share this medicine with anyone who has not been prescribed this medicine. Side Effects The following is a list of some common side effects from this medicine. Please speak with your doctor about what you should do if you experience these or other side effects. ?? decreased appetite ?? dizziness ?? drowsiness or sedation ?? lack of energy and tiredness ?? headaches ?? nausea ?? vomiting Call your doctor or get medical help right away if you notice any of these more serious side effects: ?? loss of balance ?? shallow, irregular breathing ?? confusion ?? fainting ?? slow heartbeat ?? mood changes ?? pale or blue skin, lips or fingernails ?? shortness of breath ?? slurred speech ?? suicidal thoughts ?? unusual or unexplained tiredness or weakness ?? blurring or changes of vision A few people may have an allergic reaction to this medicine. Symptoms can include difficulty breathing, skin rash, itching, swelling, or severe dizziness. If you notice any of these symptoms, seek medical help quickly. Extra Please speak with your doctor, nurse, or pharmacist if you have any questions about this medicine. [email or web address] IMPORTANT NOTE: This document tells you briefly how to take your medicine, but it does not tell you all there is to know about it. Your doctor or pharmacist may give you other documents about your medicine. Please talk to them if you have any questions. Always follow their advice. There is a more complete description of this medicine available in [place]. Scan this code on your smartphone or tablet or use the web address below. You can also ask your pharmacist for a printout. If you have any questions, please ask your pharmacist. ?? 2020 [employer]. ?? [id number] [employer]. All rights reserved. This information is not intended as a substitute for professional medical care. Always follow your healthcare professional's instructions. Patient Education - Ana M Jackson RN - 09/26/2021 12:44 PM CDT 47809-064 Vitamin B1 (thiamine) Oral Tablet Uses For vitamin replacement. Instructions This medicine may be taken with or without food. Store at room temperature in a dry place. Do not keep in the bathroom. Keep the medicine away from heat and light. Please tell your doctor and pharmacist about all the medicines you take. Include both prescription and fgsj-wnf-ishjndg medicines. Also tell them about any vitamins, herbal medicines, or anything else you take for your health. Speak with your doctor or pharmacist before starting any other vitamins. Cautions Tell your doctor and pharmacist if you ever had an allergic reaction to a medicine. Symptoms of an allergic reaction can include trouble breathing, skin rash, itching, swelling, or severe dizziness. Do not use the medication any more than instructed. Ask your pharmacist if this medicine can interact with any of your other medicines. Be sure to tell them about all the medicines you take. This medicine usually has no side effects. Side Effects A few people may have an allergic reaction to this medicine. Symptoms can include difficulty breathing, skin rash, itching, swelling, or severe dizziness. If you notice any of these symptoms, seek medical help quickly. Extra Please speak with your doctor, nurse, or pharmacist if you have any questions about this medicine. [email or web address] IMPORTANT NOTE: This document tells you briefly how to take your medicine, but it does not tell you all there is to know about it. Your doctor or pharmacist may give you other documents about your medicine. Please talk to them if you have any questions. Always follow their advice. There is a more complete description of this medicine available in [place]. Scan this code on your smartphone or tablet or use the web address below. You can also ask your pharmacist for a printout. If you have any questions, please ask your pharmacist. ?? 2020 [employer]. ?? [id number] [employer]. All rights reserved. This information is not intended as a substitute for professional medical care. Always follow your healthcare professional's instructions. Patient Education - Ana M Jackson RN - 09/26/2021 12:43 PM CDT [address] Pantoprazole Delayed Release Oral Tablet Protonix Uses This medicine is used for the following purposes: ?? indigestion ?? inflammation of stomach ?? inflammation of the esophagus ?? stomach acid ?? stomach acid reflux ?? ulcers in stomach or intestines ?? ulcers in stomach or intestines Instructions Swallow the medicine without crushing or chewing it. This medicine may be taken with or without food. It is important that you keep taking each dose of this medicine on time even if you are feeling well. If you forget to take a dose on time, take it as soon as you remember. If it is almost time for the next dose, do not take the missed dose. Return to your normal dosing schedule. Do not take 2 doses ofthis medicine at one time. Please tell your doctor and pharmacist about all the medicines you take. Include both prescription and cetg-wcd-nbhqpqb medicines. Also tell them about any vitamins, herbal medicines, or anything else you take for your health. If your symptoms do not improve or they worsen while on this medicine, contact your doctor. This medicine may affect the strength of your bones. If you have or are at increased risk for developing osteoporosis (weakening of the bones), your doctor may recommend adding foods containing calciumand vitamin D while on this medicine. Please talk to your doctor for more information. You may need vitamin and mineral supplements while on this medicine. Please speak with your doctor or pharmacist. This medicine may interfere with some lab test results. Be sure to tell all your healthcare providers that you are taking this medicine. Cautions Tell your doctor and pharmacist if you ever had an allergic reaction to a medicine. Symptoms of an allergic reaction can include trouble breathing, skin rash, itching, swelling, or severe dizziness. Do not use the medication any more than instructed. Contact your doctor if you notice a change in the amount or darkening of your urine. Please tell your doctor if you have moderate to severe diarrhea while on this medicine. Do not treatthe diarrhea with fjfg-ewe-qljezjr diarrhea medicine. Tell the doctor or pharmacist if you are , planning to be , or . Ask your pharmacist if this medicine can interact with any of your other medicines. Be sure to tell them about all the medicines you take. Please tell all your doctors and dentists that you are on this medicine before they provide care. Do not start or stop any other medicines without first speaking to your doctor or pharmacist. Do not share this medicine with anyone who has not been prescribed this medicine. This medicine can cause serious side effects in some patients. Important information from the [place] Food and Drug Administration (FDA) is available from your pharmacist. Please review it carefully with your pharmacist to understand the risks associated with this medicine. Side Effects The following is a list of some common side effects from this medicine. Please speak with your doctor about what you should do if you experience these or other side effects. ?? diarrhea ?? headaches ?? stomach upset or abdominal pain Call your doctor or get medical help right away if you notice any of these more serious side effects: ?? abdominal cramps ?? severe or persistent abdominal pain ?? severe, watery or bloody diarrhea ?? fever ?? fast or irregular heart beats ?? pain in the joints ?? muscle aches, spasms or abnormal movements ?? feeling of numbness or tingling in your hands and feet ?? butterfly-shaped rash on nose and cheeks ?? seizures ?? blood in stool ?? unusual or unexplained tiredness or weakness A few people may have an allergic reaction to this medicine. Symptoms can include difficulty breathing, skin rash, itching, swelling, or severe dizziness. If you notice any of these symptoms, seek medical help quickly. Extra Please speak with your doctor, nurse, or pharmacist if you have any questions about this medicine. [email or web address] IMPORTANT NOTE: This document tells you briefly how to take your medicine, but it does not tell you all there is to know about it. Your doctor or pharmacist may give you other documents about your medicine. Please talk to them if you have any questions. Always follow their advice. There is a more complete description of this medicine available in [place]. Scan this code on your smartphone or tablet or use the web address below. You can also ask your pharmacist for a printout. If you have any questions, please ask your pharmacist. ?? 2020 [employer]. ?? [id number] [employer]. All rights reserved. This information is not intended as a substitute for professional medical care. Always follow your healthcare professional's instructions. Patient Education - Ana M Jackson Chi RN - 09/26/2021 12:43 PM CDT 63832-525 Folic Acid Oral Tablet Folacin Uses This medicine is used for the following purposes: ? vitamin deficiency Instructions This medicine may be taken with or without food. Keep the medicine at room temperature. Avoid heat and direct light. It is important that you keep taking each dose of this medicine on time even if you are feeling well. If you forget to take a dose on time, take it as soon as you remember. If it is almost time for the next dose, do not take the missed dose. Return to your normal dosing schedule. Do not take 2 doses ofthis medicine at one time. Please tell your doctor and pharmacist about all the medicines you take. Include both prescription and pihi-lnu-fjoznds medicines. Also tell them about any vitamins, herbal medicines, or anything else you take for your health. Speak with your doctor or pharmacist before starting any other vitamins. Cautions Ask your pharmacist if this medicine can interact with any of your other medicines. Be sure to tell them about all the medicines you take. Do not start or stop any other medicines without first speaking to your doctor or pharmacist. Do not share this medicine with anyone who has not been prescribed this medicine. Side Effects A few people may have an allergic reaction to this medicine. Symptoms can include difficulty breathing, skin rash, itching, swelling, or severe dizziness. If you notice any of these symptoms, seek medical help quickly. Extra Please speak with your doctor, nurse, or pharmacist if you have any questions about this medicine. [email or web address] IMPORTANT NOTE: This document tells you briefly how to take your medicine, but it does not tell you all there is to know about it. Your doctor or pharmacist may give you other documents about your medicine. Please talk to them if you have any questions. Always follow their advice. There is a more complete description of this medicine available in [place]. Scan this code on your smartphone or tablet or use the web address below. You can also ask your pharmacist for a printout. If you have any questions, please ask your pharmacist. ?? 2020 [employer]. ?? [id number] [employer]. All rights reserved. This information is not intended as a substitute for professional medical care. Always follow your healthcare professional's instructions. Patient Education - Ana M Jackson RN - 09/26/2021 12:42 PM CDT 9520-9194 Amlodipine Oral Tablet Norvas Uses This medicine is used for the following purposes: ?? angina ?? high blood pressure ?? Raynaud's disease Instructions This medicine may be taken with or without food. It is very important that you take the medicine at about the same time every day. It will work best if you do this. Keep the medicine at room temperature. Avoid heat and direct light. It is important that you keep taking each dose of this medicine on time even if you are feeling well. If you forget to take a dose on time, take it as soon as you remember. If it is almost time for the next dose, do not take the missed dose. Return to your normal dosing schedule. Do not take 2 doses ofthis medicine at one time. Please tell your doctor and pharmacist about all the medicines you take. Include both prescription and kncb-jaa-qrnmjkq medicines. Also tell them about any vitamins, herbal medicines, or anything else you take for your health. It is very important that you keep all appointments for medical exams and tests while on this medicine. Cautions Do not use the medication any more than instructed. If possible, avoid using with marijuana or other medicines that can cause dizziness or drowsiness. These include allergy/cold products, muscle relaxers, sleep aids, and pain relievers. Your ability to stay alert or to react quickly may be impaired by this medicine. Do not drive or operate machinery until you know how this medicine will affect you. Please check with your doctor before drinking alcohol while on this medicine. Tell the doctor or pharmacist if you are , planning to be , or . Ask your pharmacist if this medicine can interact with any of your other medicines. Be sure to tell them about all the medicines you take. Do not start or stop any other medicines without first speaking to your doctor or pharmacist. Do not share this medicine with anyone who has not been prescribed this medicine. Side Effects The following is a list of some common side effects from this medicine. Please speak with your doctor about what you should do if you experience these or other side effects. ?? dizziness ?? swelling of the legs, feet, and hands ?? lack of energy and tiredness ?? feeling of heat or flushing ?? low blood pressure Call your doctor or get medical help right away if you notice any of these more serious side effects: ?? worsening chest pain or crushing feeling ?? fainting ?? fast or irregular heart beats ?? jaw pain ?? shortness of breath A few people may have an allergic reaction to this medicine. Symptoms can include difficulty breathing, skin rash, itching, swelling, or severe dizziness. If you notice any of these symptoms, seek medical help quickly. Extra Please speak with your doctor, nurse, or pharmacist if you have any questions about this medicine. [email or web address] IMPORTANT NOTE: This document tells you briefly how to take your medicine, but it does not tell you all there is to know about it. Your doctor or pharmacist may give you other documents about your medicine. Please talk to them if you have any questions. Always follow their advice. There is a more complete description of this medicine available in [place]. Scan this code on your smartphone or tablet or use the web address below. You can also ask your pharmacist for a printout. If you have any questions, please ask your pharmacist. ?? 2020 [employer] ?? [id number] [employer]. All rights reserved. This information is not intended as a substitute for professional medical care. Always follow your healthcare professional's instructions. Patient Education - Ana M Jackson RN - 09/26/2021 12:42 PM CDT 47391 Understanding Tachycardia The heart has an electrical system that sends signals to control the heartbeat. Any abnormal change in the speed or pattern of the heartbeat is called an arrhythmia. If you have an arrhythmia that causes the heart to beat faster than normal, this is known as tachycardia. There are many types of tachycardia. They can affect the heart?s upper chambers (atria), the heart?s lower chambers (ventricles), or both. What causes tachycardia? Many things can cause tachycardia, including: ?? Damage to heart tissue from heart disease, past heart attack, or heart surgery ?? Abnormal electrical pathways in the heart ?? Problems with the heart?s structure that you are born with (congenital heart defect) ?? High blood pressure ?? Overactive thyroid ?? Use of certain medicines ?? Severe blood loss or anemia ?? Dehydration ?? Severe stress, fear, or anxiety ?? Smoking ?? Too much alcohol or caffeine ?? Abuse of certain street drugs, such as cocaine ?? Infections ?? Certain inflammatory conditions ?? Pain What are the symptoms of tachycardia? If you have tachycardia, you may notice a fast, pounding, or irregular heartbeat. Tachycardia can also make it harder for the heart to pump blood efficiently to the body. This may cause symptoms such as: ?? Shortness of breath ?? Tiredness ?? Dizziness or fainting ?? Chest pain Some people with tachycardia may have no symptoms at all. How is tachycardia treated? Treatment for tachycardia depends on the cause. It also depends on the type you have and how severe your symptoms are. Tachycardia in the ventricles is often more serious than in the atria. For this reason, it may need to be treated right away. Possible treatments include: ?? Treating the underlying cause. For instance, if a medicine is causing your tachycardia, changing the dosage or stopping the medicine with your healthcare provider?s guidance may correct the problem. ?? Lifestyle changes. These include getting enough sleep and reducing stress. They also include avoiding caffeine, alcohol, tobacco, and illegal drugs. ?? Vagal maneuvers. These are techniques that may help interrupt a fast heartbeat and slow it down. One example is to take a deep breath and bear down hard while holding your breath. ?? Medicines. These may be used to help slow down a fast heartbeat. They may also be used to regulate the pattern of the heartbeat. ?? Electrical cardioversion. Special pads or paddles are used to send one or more brief electrical shocks to the heart. This can help restore the heartbeat to normal. ?? Ablation. A long, thin tube called a catheter is inserted into a blood vessel and threaded to theheart. The catheter sends out hot or cold energy to the areas causing abnormal signals. This destroys tissue or cells where the abnormal electrical signal originates. This may stop certain types of tachycardia. ?? Pacemaker. This is a device that is placed just under the skin in the chest. It sends paced signals to make the heart beat at a predetermined rate and rhythm. While it can't slow your heart rate, some people may have both fast and slow heart rates. You may need a pacemaker if medicines used to treat tachycardia result in a heart rate that is too slow. ?? Implantable cardioverter defibrillator (ICD). This is a device that is placed just under the skinin the chest or below the armpit. The ICD monitors your heart rate. When needed, it sends a controlled burst of signals to the heart to overdrive a tachycardia in the ventricles. It can also send a single stronger shock to the heart to stop a life-threatening type of tachycardia, if needed. ?? Surgery. During surgery, different techniques may be used to create scar tissue in the areas of the heart causing abnormal signals. This may help stop certain types of tachycardia. ?? What are possible complications of tachycardia? These can include: ?? Blood clots or stroke ?? Heart failure. With this problem, the heart muscle is so weak it no longer pumps blood well. ?? Fainting ?? Sudden cardiac arrest. This is when the heart suddenly stops beating. When should I call my healthcare provider? Call your healthcare provider right away if you have any of these: ?? Symptoms that don?t get better with treatment, or get worse ?? New symptoms Last Reviewed Date: 2021 ?? [id number] [employer]. All rights reserved. This information is not intended as a substitute for professional medical care. Always follow your healthcare professional's instructions. Patient Education - Ana M Jackson RN - 09/26/2021 12:41 PM CDT 74922 Addiction: Getting Help Admitting that you have a problem with alcohol or drugs isn?t easy. You may hear this called addiction or a substance use disorder. Facing it takes courage and honesty. But once you?re ready to look atyour use, you?ve taken a big step toward getting over the problem. When you face your problem, you also accept that you?re responsible for your actions and for changing them. There are many programs and people who can help you. It?s OK to get help. It?s also the first step to getting your life back together. It was hard to admit that I had a problem. But when I did, I had to get help. Getting help and support Recovery doesn?t happen right away. It?s a long process. There are many steps along the way. During those steps, you?ll work on changing the things that were part of your problem. A counselor or other healthcare provider can help you. So can a head paper tester, wheat and oats flake miller, or rabbi who is trained in substance abuse counseling. Friends and family may also help once you are working with experts. Together you can make changes needed for success. This can help you to have a positive and rewarding life. To learn more ?? [facility] [employer], ?? National [place] on Alcoholism and Drug Dependence (NCADD), Last Reviewed Date: 2019 ?? 2013-1915 The [employer]. All rights reserved. This information is not intended as a substitute for professional medical care. Always follow your healthcare professional's instructions. Patient Education - Ana M Jackson RN - 09/26/2021 12:41 PM CDT [id number] Alcohol Withdrawal Alcohol withdrawal often starts after prolonged heavy drinking, and then you suddenly stop drinking.Or you cut down on your alcohol use. It is not one thing. It is a complex combination of signs and symptoms that often occur together and define a certain problem or condition. ?? Alcohol withdrawal is potentially life-threatening. It is a medical emergency. ?? It can start as early as a couple of hours after your last drink. Or it may take 1 to 3 days to develop. ?? It can last from days to a week or more. ?? It can worsen very quickly. Signs and symptoms There are several stages of alcohol withdrawal. But they overlap, as do their signs and symptoms. Inthe earlier stages, it most often includes: ?? Anxiety ?? Shakiness ?? Nausea and vomiting ?? Sweating ?? Insomnia ?? Headaches ?? Fever ?? Mood swings, irritability, agitation, restlessness Delirium tremens (DTs) DTs are a severe and life-threatening complication. If DTs happen, they often start about 3 to 5 days after your last drink. They are potentially life threatening, so medical care should be sought. Symptoms of DTs include: ?? Sudden and severe mental or nervous system changes ?? Uncontrollable tremors ?? Severe disorientation, confusion, hallucinations ?? Heart racing, or irregular heartbeat ?? High blood pressure ?? Seizures ?? Possible coma and Home care ?? You'll need plenty of rest and fluids over the next several days. Eat regular meals and drink plenty of fluids to prevent dehydration. Don't drink any more alcohol. During this time, it is best thatyou're not alone. Stay with family or friends who can help and support you. You can also admit yourself to a residential detox program. ?? Don't drive until all symptoms are gone and you are feeling better. If you've had a seizure, don't drive until you've been examined by a healthcare provider. ?? If you were given sedative medicine to reduce your symptoms, don't take it more often than prescribed. Never take it with alcohol. Follow-up care Once you've gone through the withdrawal symptoms, you've fought half of the curry. To avoid the risk of going back to your past drinking pattern, it's vital that you get follow-up support and treatment. ?? Alcoholics Anonymous (AA) offers support through a self-help fellowship. There are no dues or fees. Search the internet or go to the AA website at www.aa.org to find a local meeting place. ?? Al-Anon offers support to families of alcohol users. Go to the Al-Anon website at www.al-anon.org. ?? Residential alcohol detox programs are available. Search the internet for treatment centers in your area. Call 911 Call 911 if any of these occur: ?? Seizure ?? Trouble breathing or slow, irregular breathing ?? Chest pain ?? Sudden weakness on a side of the body or sudden trouble speaking ?? Heavy bleeding or vomiting blood ?? Very drowsy or trouble awakening ?? Fainting or loss of consciousness ?? Rapid heart rate When to get medical advice Call your healthcare provider right away if any of these occur: ?? Severe shakiness ?? Hallucinations ?? Fever over 100.4?? F (38.0?? C) ?? Headache, confusion, extreme drowsiness, inability to awaken ?? Increasing upper abdominal pain ?? Repeated vomiting Last Reviewed Date: 2021 ?? [id number] The [employer]. All rights reserved. This information is not intended as a substitute for professional medical care. Always follow your healthcare professional's instructions. Care Plan - Diane Cox RN - 09/26/2021 6:07 AM CDT A&Ox4. VSS. RA. Independent in room. Walks halls frequently. CIWA's scoring 0. Slept ok. Problem: Neurologic Goal: Neurological system functioning within defined limits Outcome: Maintaining Problem: Psychosocial Goal: Psychosocial system functioning within defined limits Outcome: Maintaining Patient Goals: The patient centered goal for this shift:: rest (09/25/21 3922). Evaluation of patient goal progress *Met. Care Plan - Ana M Jackson RN - 09/25/2021 6:58 PM CDT VSS. Afebrile. Remains on RA. LS clear. Denies pain. Has been up IND in room. Was SBA in the halls but later allowed pt to walk IND. Repositions IND. New IV placed due to past one leaking. Pt reported nausea and a few occurences of emesis; PRN Zofran administered per eMAR which was beneficial. Pt later reported an upset stomach again and heartburn; PRN Tums ordered and daily Protonix which were both administered per eMAR. Telesitter discontinued today. No significant changes with neuro assessment. No significant changes with CIWA scores; highest score was 7 due to nausea/vomitting. Phenobarbital being tapered per eMAR. MD states possible discharge tomorrow. Problem: Discharge Planning Goal: No barriers to discharge Outcome: Progressing Flowsheets (Taken 09/25/2021 1240) Discharge Planning Care Plan: ??? Identify discharge barriers ??? Patient/family/caregiver participation promotion ??? Assess need for help at home ??? Collaboration with State Federal Relations Deputy Director/Case Management Problem: Musculoskeletal Goal: Musculoskeletal system functioning within defined limits Outcome: Progressing Flowsheets (Taken 09/25/2021 0853) Musculoskeletal Care Plan: ??? Assess patient stability and activity tolerance for standing, transferring and ambulating w/ or w/o assistive devices ??? Assist with transfers and ambulation using safe patient handling equipment as needed ??? Progressive mobility ??? Physical activity promotion ??? Energy conservation management Problem: Neurologic Goal: Neurological system functioning within defined limits Outcome: Progressing Flowsheets (Taken 09/25/2021 0853) Neurological Care Plan: ??? Reduce environmental stimuli ??? Assess for and report changes in neurological status ??? Maintain blood pressure and fluid volume within ordered parameters to optimize cerebral perfusion and minimize risk of hemorrhage Problem: Risk of Violence Goal: Absence of violence Outcome: Progressing Flowsheets (Taken 09/24/2021 1051) Violence Care Plan: ??? Maintain calm, non threatening manner with patient ??? Manifest empathy if patient is agitated ??? Provide clear and consistent boundaries ??? Set limits on behavior ??? Encourage verbalization of feelings, perceptions, and fears ??? Establish rapport ??? Encourage use of coping skills ??? Identify early signs of agitation ??? Increase staff supervision/interaction Problem: Skin Goal: Skin integrity within defined limits Outcome: Maintaining Flowsheets (Taken 09/25/2021 0853) Skin Integrity Care Plan: Ongoing surveillance of impaired skin Problem: Risk of Pressure Injury Goal: Absence of new pressure injury Outcome: Maintaining Flowsheets (Taken 09/25/2021 08) Sensory Activity Mobility Friction Care Plan: ??? Encourage activity as tolerated ??? Elevate heels off bed ??? Moisturize skin daily ??? HOB at 30 degrees or less unless contraindicated ??? Keep skin clean Moisture Care Plan: ??? Address cause of moisture ??? Linen changes as needed to keep skin dry Nutrition Care Plan: ??? Encourage intake ??? Assess oral care needs and assist as needed Problem: Fall Risk Goal: Absence of falls Outcome: Maintaining Flowsheets (Taken 09/25/2021 0856) Fall Risk Care Plan/Interventions: ??? Fall risk charm for high fall risk ??? Mobilize patient Problem: Psychosocial Goal: Psychosocial system functioning within defined limits Outcome: Maintaining Flowsheets (Taken 09/24/2021 0913) Psychosocial Care Plan: ??? Coping Support - Patient/Caregiver ??? Patient/family/caregiver participation promotion ??? Discuss patient/family stressors Patient Goals: The patient centered goal for this shift:: Walk (09/25/21 0856). Evaluation of patient goal progress: met Care Plan - [place] Landry RN - 09/25/2021 7:22 AM CDT A&O x4. Ambulating around halls with SBA and front wheeled walker. IV SL sluggish flush. Very talkative requesting to socialize with staff numerous times. Independent in room without difficulty. Telesitter in place. Problem: Discharge Planning Goal: No barriers to discharge Outcome: Progressing Problem: Musculoskeletal Goal: Musculoskeletal system functioning within defined limits Outcome: Progressing Problem: Skin Goal: Skin integrity within defined limits Outcome: Progressing Problem: Neurologic Goal: Neurological system functioning within defined limits Outcome: Progressing Problem: Risk of Pressure Injury Goal: Absence of new pressure injury Outcome: Progressing Problem: Fall Risk Goal: Absence of falls Outcome: Progressing Problem: Psychosocial Goal: Psychosocial system functioning within defined limits Outcome: Progressing Problem: Risk of Violence Goal: Absence of violence Outcome: Progressing Patient Goals: The patient centered goal for this shift:: rest (09/24/21 2314). Evaluation of patient goal progress progressing. Care Plan - Ana M Jackson RN - 09/24/2021 7:05 PM CDT VSS. Afebrile. Remains on RA. Clear LS. Denies pain. Was disoriented to time earlier in the shift but later became oriented x4. Slight confusion noted. Up with an assist of 2 but could possibly be a 1 to the commode. Repositions IND. Continent this shift. No significant changes with Neuro shifts. Highest CIWA score was 4; no PRN ativan needed. Free of seizure activity. Potassium protocol was ordered;received 3 oral doses. Continues to receive continuous NS with potassium chloride added. Slight anxiety noted, and pt did become tearful once this shift. No plans to discharge at this time. Problem: Neurologic Goal: Neurological system functioning within defined limits Outcome: Progressing Flowsheets (Taken 09/24/2021912) Neurological Care Plan: Reduce environmental stimuli Assess for and report changes in neurological status Maintain blood pressure and fluid volume within ordered parameters to optimize cerebral perfusion and minimize risk of hemorrhage Problem: Psychosocial Goal: Psychosocial system functioning within defined limits Outcome: Progressing Flowsheets (Taken 09/24/2021912) Psychosocial Care Plan: Coping Support - Patient/Caregiver Patient/family/caregiver participation promotion Discuss patient/family stressors Problem: Risk of Violence Goal: Absence of violence Outcome: Progressing Flowsheets (Taken 09/24/2021 1051) Violence Care Plan: Maintain calm, non threatening manner with patient Manifest empathy if patient is agitated Provide clear and consistent boundaries Set limits on behavior Encourage verbalization of feelings, perceptions, and fears Establish rapport Encourage use of coping skills Identify early signs of agitation Increase staff supervision/interaction Problem: Discharge Planning Goal: No barriers to discharge Outcome: Maintaining Flowsheets (Taken 09/22/20212000 by Juan Alcala RN) Discharge Planning Care Plan: Identify discharge barriers Patient/family/caregiver participation promotion Collaboration with State Federal Relations Deputy Director/Case Management Problem: Musculoskeletal Goal: Musculoskeletal system functioning within defined limits Outcome: Maintaining Flowsheets (Taken 09/24/2021912) Musculoskeletal Care Plan: Assess patient stability and activity tolerance for standing, transferring and ambulating w/ or w/oassistive devices Assist with transfers and ambulation using safe patient handling equipment as needed Progressive mobility Physical activity promotion Energy conservation management Problem: Skin Goal: Skin integrity within defined limits Outcome: Maintaining Flowsheets (Taken 09/24/2021912) Skin Integrity Care Plan: Ongoing surveillance of impaired skin Problem: Risk of Pressure Injury Goal: Absence of new pressure injury Outcome: Maintaining Flowsheets (Taken 09/24/2021912) Sensory Activity Mobility Friction Care Plan: Encourage activity as tolerated Elevate heels off bed Moisturize skin daily HOB at 30 degrees or less unless contraindicated Keep skin clean Moisture Care Plan: Address cause of moisture Linen changes as needed to keep skin dry Nutrition Care Plan: Encourage intake Assess oral care needs and assist as needed Problem: Fall Risk Goal: Absence of falls Outcome: Maintaining Flowsheets (Taken 09/24/2021 0907) Fall Risk Care Plan/Interventions: Fall risk charm for high fall risk Utilize bed/chair alarm [place] socks/Within arm's reach Mobilize patient Utilize assistive devices as indicated 1:1 Continuous Observer (sitter) Patient Goals: The patient centered goal for this shift:: Comfort and safety (09/24/21 0906). Evaluation of patient goal progres: met Care Plan - Mat Meraz RN - 09/24/2021 5:02 AM CDT Pt A&Ox2. VSS. Pt denies any pain. Neuros done. CIWAS done throughout shift. Pt received 1 mg oral ativan for restlessness/anxiousness & CIWA score. 1:1 in room with patient. Pt rested well throughout the night. Voiding adequately. Tolerating general diet. No new skin issues noted. Free from falls this shift. Remained safe on unit. Problem: Discharge Planning Goal: No barriers to discharge Outcome: Maintaining Flowsheets (Taken 09/22/20212000 by Juan Alcala, RN) Discharge Planning Care Plan: Identify discharge barriers Patient/family/caregiver participation promotion Collaboration with State Federal Relations Deputy Director/Case Management Problem: Musculoskeletal Goal: Musculoskeletal system functioning within defined limits Outcome: Maintaining Flowsheets (Taken 09/23/20212203) Musculoskeletal Care Plan: Assess patient stability and activity tolerance for standing, transferring and ambulating w/ or w/oassistive devices Assist with transfers and ambulation using safe patient handling equipment as needed Collaboration with PT/OT Instruct patient/family in ordered activity level Progressive mobility Physical activity promotion Passive/active range of motion Energy conservation management Problem: Skin Goal: Skin integrity within defined limits Outcome: Maintaining Flowsheets (Taken 09/23/20212203) Skin Integrity Care Plan: Ongoing surveillance of impaired skin Problem: Neurologic Goal: Neurological system functioning within defined limits Outcome: Maintaining Flowsheets (Taken 09/23/20212203) Neurological Care Plan: Reduce environmental stimuli Assess for and report changes in neurological status Problem: Risk of Pressure Injury Goal: Absence of new pressure injury Outcome: Maintaining Flowsheets (Taken 09/23/20212203) Sensory Activity Mobility Friction Care Plan: Encourage activity as tolerated Keep skin clean Moisture Care Plan: Address cause of moisture Linen changes as needed to keep skin dry Nutrition Care Plan: Encourage intake Problem: Fall Risk Goal: Absence of falls Outcome: Maintaining Flowsheets (Taken 09/23/2021 0747 by Lucero Demarco, OZZIE) Fall Risk Care Plan/Interventions: [place] socks/Within arm's reach Utilize bed/chair alarm 1:1 Continuous Observer (sitter) Problem: Psychosocial Goal: Psychosocial system functioning within defined limits Outcome: Maintaining Flowsheets (Taken 09/23/2021 1513 by Lucero Demarco, OZZIE) Psychosocial Care Plan: 1:1 Patient Goals: The patient centered goal for this shift:: sleep (09/24/21 0003). Evaluation of patient goal progress met. Care Plan - Lucero Demarco RN - 09/23/2021 6:36 PM CDT Pt alert to self. Restless and agitated this AM, Standing at bedside and attempting to leave, MD updated with orders for IV ativan, 2mg given, pt has been resting well after. Became agitated at 1715, attempted to give oral medications, pt refused, new orders for 0.5-1mg IV ativan. 1:[address] for pt safety. Received IV mag. Fluids infusing. Problem: Discharge Planning Goal: No barriers to discharge Outcome: Progressing Problem: Musculoskeletal Goal: Musculoskeletal system functioning within defined limits Outcome: Progressing Problem: Skin Goal: Skin integrity within defined limits Outcome: Progressing Problem: Neurologic Goal: Neurological system functioning within defined limits Outcome: Progressing Problem: Risk of Pressure Injury Goal: Absence of new pressure injury Outcome: Progressing Problem: Fall Risk Goal: Absence of falls Outcome: Progressing Problem: Psychosocial Goal: Psychosocial system functioning within defined limits Outcome: Progressing Patient Goals: The patient centered goal for this shift:: safety (09/23/214). Evaluation of patient goal progress : met Care Plan - Mat Meraz RN - 09/23/2021 5:42 AM CDT Pt A&Ox3. VSS. Pt denies any pain. CIWAS continued throughout shift. Neuro checks done. Voiding adequately. Incontinent x1. Remained restless throughout shift. Minimal sleep. One time dose of ativan given - pt fell asleep around 430 AM. IV remains intact. No new skin issues noted. Free from falls this shift. Remained safe on unit. Problem: Discharge Planning Goal: No barriers to discharge Outcome: Maintaining Flowsheets (Taken 09/22/20212000 by Juan Alcala RN) Discharge Planning Care Plan: ??? Identify discharge barriers ??? Patient/family/caregiver participation promotion ??? Collaboration with State Federal Relations Deputy Director/Case Management Problem: Musculoskeletal Goal: Musculoskeletal system functioning within defined limits Outcome: Maintaining Flowsheets (Taken 09/22/20212035) Musculoskeletal Care Plan: ??? Assess patient stability and activity tolerance for standing, transferring and ambulating w/ or w/o assistive devices ??? Assist with transfers and ambulation using safe patient handling equipment as needed ??? Collaboration with PT/OT ??? Instruct patient/family in ordered activity level ??? Progressive mobility ??? Physical activity promotion ??? Energy conservation management ??? Passive/active range of motion Problem: Skin Goal: Skin integrity within defined limits Outcome: Maintaining Flowsheets (Taken 09/22/20212035) Skin Integrity Care Plan: Ongoing surveillance of impaired skin Problem: Neurologic Goal: Neurological system functioning within defined limits Outcome: Maintaining Flowsheets (Taken 09/22/20212035) Neurological Care Plan: ??? Reduce environmental stimuli ??? Assess for and report changes in neurological status Problem: Risk of Pressure Injury Goal: Absence of new pressure injury Outcome: Maintaining Flowsheets (Taken 09/22/20212056) Sensory Activity Mobility Friction Care Plan: ??? Encourage activity as tolerated ??? Keep skin clean Moisture Care Plan: ??? Address cause of moisture ??? Linen changes as needed to keep skin dry Problem: Fall Risk Goal: Absence of falls Outcome: Maintaining Flowsheets (Taken 09/22/20212056) Fall Risk Care Plan/Interventions: ??? [place] socks/Within arm's reach ??? Utilize bed/chair alarm Patient Goals: The patient centered goal for this shift:: sleep (09/22/212057). Evaluation of patient goal progress met. Care Plan - Juan Alcala RN - 09/22/2021 8:01 PM CDT Problem: Discharge Planning Goal: No barriers to discharge Outcome: Progressing Flowsheets (Taken 09/22/20212000) Discharge Planning Care Plan: ??? Identify discharge barriers ??? Patient/family/caregiver participation promotion ??? Collaboration with State Federal Relations Deputy Director/Case Management IVF running. CIWA assessments. IVPB phenobarbital per EMAR. Had CD consult early afternoon. Using urinal and up to the bathroom. Assisting patient with the phone as needed. Problem: Musculoskeletal Goal: Musculoskeletal system functioning within defined limits Outcome: Progressing Flowsheets (Taken 09/22/20212000) Musculoskeletal Care Plan: ??? Assess patient stability and activity tolerance for standing, transferring and ambulating w/ or w/o assistive devices ??? Assist with transfers and ambulation using safe patient handling equipment as needed ??? Progressive mobility ??? Physical activity promotion A x 1-2 SBA with FWW. Problem: Skin Goal: Skin integrity within defined limits Outcome: Progressing Flowsheets (Taken 09/22/2021 1152) Skin Integrity Care Plan: Ongoing surveillance of impaired skin Redness outlined to RUE, bruising to right elbow. Photo in chart. Bruising to left shoulder. Problem: Neurologic Goal: Neurological system functioning within defined limits Outcome: Progressing Flowsheets (Taken 09/22/2021 1152) Neurological Care Plan: Assess for and report changes in neurological status Neuro checks q shift. Bed/chair alarm in place. PRN ativan administered 1x early afternoon. CIWA protocol. As shift progressed patient showed signs of increasing withdrawal symptoms, beyond restlessness andanxiety. Patient sometimes utilizes call light, but has been impulsive and very frequently trying toget out of bed, with difficulty following direction. Made statements that they needed to go up to the other floor, tried to walk toward the door and stated they needed to leave and get things done athome. Reminded of their need to stay at the hospital, which patient accepted. Displaying confusion and poor safety awareness. Dr. Mckeon updated on status and IVPB phenobarbital initiated. Before shift change patient was unable to remember the date or where he was. Pulled one of IVs out. Placed on 1:1 observation for safety. Patient Goals: The patient centered goal for this shift:: admission (09/22/21 1130). Evaluation of patient goal progress met. documented in this encounter Plan of Treatment Scheduled Referrals Name Type Priority Associated Diagnoses Order S chedule IP DISCHARGE FOLLOW-UP REFERRAL Routine Hospital discharge Ordered: 09/26/2021 APPOINTMENTS follow-up documented as of this encounter Procedures Procedure Name Priority Date/Time Associated Comments Diagnosis POTASSIUM Timed 09/24/2021 9:39 PM Results f or this CDT procedure are i n the results section. MAGNESIUM Routine 09/24/2021 6:17 AM Results f or this CDT procedure are i n the results section. RENAL PROFILE STAT 09/23/2021 8:20 AM Results for this CDT procedure are i n the results section. MAGNESIUM Routine 09/23/2021 8:20 AM Results f or this CDT procedure are i n the results section. HEMOGRAM Routine 09/23/2021 8:19 AM Results f or this CDT procedure are i n the results section. COMPREHENSIVE Timed 09/22/2021 5:59 AM Results for this METABOLIC PANEL CDT procedure ar e in the results section. MAGNESIUM Timed 09/22/2021 5:59 AM Results f or this CDT procedure are i n the results section. RAPID SARS-COV-2 RNA STAT 09/22/2021 12:45 Res ults for this (COVID-19), MOLECULAR AM CDT proced ure are in DETECTION the results section. EKG 12-LEAD STAT 09/21/2021 11:23 Results for this PM CDT procedure are i n the results section. BASIC METABOLIC PANEL STAT 09/21/2021 11:22 Re sults for this PM CDT procedure are i n the results section. HEMOGRAM/DIFF STAT 09/21/2021 11:22 Results fo r this PM CDT procedure are i n the results section. MAGNESIUM STAT 09/21/2021 11:22 Results for this PM CDT procedure are i n the results section. ALCOHOL Add on 09/21/2021 11:22 Results for this PM CDT procedure are i n the results section. PHOSPHORUS STAT 09/21/2021 11:22 Results for this PM CDT procedure are i n the results section. documented in this encounter Results POTASSIUM (09/24/2021 9:39 PM CDT) athologist Signature Potassium 4.3 3.4 - 5.1 09/24/[address] [facility] mEq/L 9:57 PM CDT [facility] Specimen Anatomical Collection Method / Collection Time Recei rehana Time (Source) Location / Volume Laterality Blood BLOOD SPECIMEN / Venipuncture / 09/24/2021 9:39 2021 9:44 Unknown Unknown PM CDT PM CDT Miquel Mckeon MD EC CHEMISTRY ORDERABLES Performing Organization Address City/[facility] Phon e Number [address] [address] LABORATORY MAGNESIUM (09/24/2021 6:17 AM CDT) athologist Signature Magnesium 1.8 1.8 - 2.7 09/24/2021 [facility] mg/dL 8:07 AM T [facility] Specimen Anatomical Collection Method / Collection Time Recei rehana Time (Source) Location / Volume Laterality Blood BLOOD SPECIMEN / Venipuncture / 09/24/2021 6:17 2021 6:24 Unknown Unknown AM CDT AM CDT Miquel Mckeon MD EC CHEMISTRY ORDERABLES Performing Organization Address City/State/[facility] Phon e Number [address] [address] LABORATORY (ABNORMAL) MAGNESIUM (09/23/2021 8:20 AM CDT) athologist Signature Magnesium 1.4 (L) 1.8 - 2.7 09/23/[address] [facility] mg/dL 8:49 AM CDT [facility] Specimen Anatomical Collection Method / Collection Time Recei rehana Time (Source) Location / Volume Laterality Blood BLOOD SPECIMEN / Venipuncture / 09/23/2021 8:20 2021 8:24 Unknown Unknown AM CDT AM T Miquel Mckeon MD EC CHEMISTRY ORDERABLES Performing Organization Address City/State/ZIP Code Phon e Number [facility] [address] [address] LABORATORY (ABNORMAL) RENAL FUNCTION PANEL (09/23/2021 8:20 AM CDT) Analysis Performed At Patho logist Time Signature Sodium 138 134 - 143 09/23/2021 ST. mEq/L 8:49 AM [facility] Potassium 3.2 (L) 3.4 - 5.1 09/23/2021 ST. mEq/L 8:49 AM [facility] Chloride 101 99 - 110 09/23/2021 ST. mEq/L 8:49 AM [facility] Carbon Dioxide 26 19 - 29 09/23/2021 ST. mEq/L 8:49 AM [facility] Anion Gap 11.0 3.0 - 15.0 09/23/2021 ST. mEq/L 8:49 AM [facility] Glucose 107 (H) 70 - 99 09/23/2021 ST. mg/dL 8:49 AM [facility] Creatinine 0.77 0.70 - 09/23/2021 ST. 1.20 mg/dL 8:49 AM [facility] Glomerular >60 >60 09/23/2021 ST. Filtration Rate mL/min/1.7 8:49 AM [facility] 3 *2 [facility] Comment: Complications of CKD and risk o f cardiovascular disease increase when GFR is below 60ml.min/1.73m2. A persistently re duced GFR is a specific indication of Chronic Kidney Disease. The eGFR calculation has not been validated in patients >70yrs. Blood Urea Nitrogen 4 (L) 5 - 24 mg/dL 09/23/2021 8:49 A M [facility] Albumin 3.0 (L) 3.5 - 5.0 g/dL 09/23/2021 8:[address] [facility] Phosphorus 1.8 (L) 2.5 - 4.6 mg/dL 09/23/2021 8:49 AM [facility] Calcium 7.6 (L) 8.4 - 10.5 09/23/2021 8:[address] [facility] [facility] mg/dL [facility] Specimen Anatomical Collection Method / Collection Time Recei rehana Time (Source) Location / Volume Laterality Blood BLOOD SPECIMEN / Venipuncture / 09/23/2021 8:20 2021 8:24 Unknown Unknown AM CDT AM CDT Narrative [facility] Y - 09/23/2021 8:49 AM CDT Current ADA criteria for Glucose: ?Normal: 70-99 mg/dL ?Impaired Fasting Glucose: 100-125 mg/dL ?Diabetes Mellitus: at or above 126 mg/dL The diagnosis of diabetes must be confir med on a subsequent day by measuring Fasting Plasma Glucose, 2-hr PG or random plasma glucose (if symptoms are present). Miquel Mckeon MD EC CHEMISTRY ORDERABLES Performing Organization Address City/State/ZIP Code Phon e Number [place] [id number] [place] [address] LABORATORY (ABNORMAL) HEMOGRAM (09/23/2021 8:19 AM CDT) P athologist Signature WBC 5.4 3.2 - 11.0 09/23/2021 [facility] 10*9/L 8:30 AM [facility] RBC 3.98 (L) 4.14 - 5.76 09/23/2021 [facility] 10*12/L 8:30 AM [facility] HGB 12.8 (L) 12.9 - 16.9 09/23/2021 [facility] g/dL 8:30 AM [facility] HCT 36.3 (L) 38.4 - 49.7 09/23/2021 [facility] % 8:30 AM [facility] MCV 91.2 81.4 - 99.0 09/23/[address] [facility] fL 8:30 AM [facility] MCH 32.2 26.7 - 33.1 09/23/2021 [facility] pg 8:30 AM [facility] MCHC 35.3 31.6 - 35.5 09/23/2021 [facility] g/dL 8:30 AM [facility] RDW 13.0 11.3 - 14.6 09/23/2021 [facility] % 8:30 AM [facility] PLT 161 130 - 375 09/23/2021 [facility] 10*9/L 8:30 AM [facility] Specimen Anatomical Collection Method / Collection Time Recei rehana Time (Source) Location / Volume Laterality Blood BLOOD SPECIMEN / Venipuncture / 09/23/2021 8:19 2021 8:24 Unknown Unknown AM CDT AM CDT Miquel Mckeon MD EC HEMATOLOGY ORDERABLES Performing Organization Address City/State/ZIP Code Phon e Number [facility] [address] [place] [address] LABORATORY (ABNORMAL) COMPREHENSIVE METABOLIC PANEL (09/22/2021 5:59 AM CDT) P athologist Signature Sodium 136 134 - 143 09/22/2021 ST. mEq/L 6:30 AM [facility] Potassium 3.5 3.4 - 5.1 09/22/2021 ST. mEq/L 6:30 AM [facility] Chloride 96 (L) 99 - 110 09/22/2021 ST. mEq/L 6:30 AM [facility] Carbon Dioxide 25 19 - 29 09/22/2021 ST. mEq/L 6:30 AM [facility] Anion Gap 15.0 3.0 - 15.0 09/22/2021 ST. mEq/L 6:30 AM [facility] Blood Urea 8 5 - 24 09/22/2021 ST. Nitrogen mg/dL 6:30 AM [facility] Creatinine 0.89 0.70 - 09/22/2021 ST. 1.20 mg/dL 6:30 AM [facility] Glomerular >60 >60 09/22/2021 [facility]. Filtration Rate mL/min/1.7 6:30 AM [facility] 3 m*2 [facility] Comment: Complications of CKD and risk o f cardiovascular disease increase when GFR is below 60ml.min/1.73m2. A persistently re duced GFR is a specific indication of Chronic Kidney Disease. The eGFR calculation has not been validated in patients >70yrs. Calcium 8.2 (L) 8.4 - 10.5 09/22/2021 6:[address] [facility] mg/dL [facility] Glucose 141 (H) 70 - 99 mg/dL 09/22/2021 6:30 AM [facility] Protein, Total 7.0 6.0 - 8.0 09/22/2021 6:[address] [facility] g/dL [facility] Albumin 3.7 3.5 - 5.0 09/22/2021 6:30 AM [facility]Dianna [facility] g/dL [facility] Alkaline Phosphatase 63 40 - 150 IU/L 09/22/2021 6:30 AM [facility] Aspartate 159 (H) 10 - 40 IU/L 09/22/2021 6:30 AM STDianna [facility] Aminotransferase [facility] Alanine Aminotransferase 66 (H) 6 - 40 IU/L 09/22/2021 6: 30 AM [facility] Bilirubin, Total 2.3 (H) 0.2 - 1.2 09/22/2021 6:30 AM [facility] mg/dL [facility] Specimen Anatomical Collection Method / Collection Time Recei rehana Time (Source) Location / Volume Laterality Blood BLOOD SPECIMEN / Venipuncture / 09/22/2021 5:59 2021 6:02 Unknown Unknown AM CDT AM T Narrative [facility] Y - 09/22/2021 6:30 AM T Current ADA criteria for Glucose: ?Normal: 70-99 mg/dL ?Impaired Fasting Glucose: 100-125 mg/dL ?Diabetes Mellitus: at or above 126 mg/dL The diagnosis of diabetes must be confir med on a subsequent day by measuring Fasting Plasma Glucose, 2-hr PG or random plasma glucose (if symptoms are present). Liam Rodriguez MD EC CHEMISTRY ORDERABLES Performing Organization Address City/[facility]/ZIP Code Phon e Number [facility] [address] [place] [phone] LABORATORY MAGNESIUM (09/22/2021 5:59 AM CDT) athologist Signature Magnesium 2.7 1.8 - 2.7 09/22/2021 [facility] mg/dL 6:48 AM CDT [facility] Specimen Anatomical Collection Method / Collection Time Recei rehana Time (Source) Location / Volume Laterality Blood BLOOD SPECIMEN / Venipuncture / 09/22/2021 5:59 2021 6:02 Unknown Unknown AM CDT AM CDT Liam Rodriguez MD EC CHEMISTRY ORDERABLES Performing Organization Address City/[facility] Code Phon e Number [facility] [address] [place] [address] LABORATORY RAPID SARS-COV-2 RNA (COVID-19), MOLECULAR DETECTION (09/22/2021 12:45 AM CDT) [facility] gist Method Time Signature SARS-CoV-2 Negative Negative/Not 09/22/2021 ST. RNA Detected 1:29 AM CDT [facility] (COVID-19) [facility] Comment: SARS-CoV-2 (COVID-19) target nu cleic acids are not detected. COVID-19 can not be completely ruled out as sensitivi ty of the test depends on the timing of specimen collection and quality of the s pecimen. Specimen Anatomical Collection Method Collection Time Receive d Time (Source) Location / / Volume Laterality Swab NASAL / Unknown COVID-19 09/22/2021 12:45 09/23/19 22 Collection / AM CDT 12:49 AM CDT Unknown Narrative [facility] Y - 09/22/2021 1:29 AM CDT Test detects target RNA by real-time polymerase chain reaction (PCR) on the [employer] GeneXpert System. Results should be used in combination wi th clinical observations, patient history and epidemiological information. Results from this test should not be use d as the sole basis for treatment or other patient management decisions. The SARS-CoV-2 test is currently only fo r use under the Food and Drug Administration's Emergency Use Authorization. ??Additional information about conditions of authorization for this test can be found at: https://www.fda.gov/medical-devices/fdkhktnoy-yjowlkacxs-uoxouft-devices/emergen su-dbw-tcxmkwuexmdsge Abdirahman Henriquez DO EC MICROBIOLOGY - GENERAL OR DERABLES Performing Organization Address City/[facility]/ZIP Code Phon e Number [place] [phone] LABORATORY EKG 12-LEAD (09/21/2021 11:23 PM CDT) P athologist Signature Ventricular Rate 116 BPM MUSE Atrial Rate 116 BPM MUSE P-R Interval 130 ms MUSE QRS Duration 90 ms MUSE QT 352 ms MUSE QTc 489 ms MUSE P [place] 10 degrees MUSE R [place] -13 degrees MUSE T [place] 33 degrees MUSE Specimen (Source) Anatomical Collection Method Collection Time Re ceived Time Location / / Volume Laterality 09/21/2021 11:23 PM CDT Narrative MUSE - 09/22/2021 8:16 AM CDT Confirming Doc Leo Fred Sinus tachycardia Minimal voltage criteria for LVH, may be normal variant ( R in aVL ) Inferior infarct ,age indeterminate Cannot rule out Anterior infarct ,age in determinate Abnormal ECG No previous ECGs available Procedure Note Leo Ibarra MD - 09/22/2021Formatt ing of this note might be different from the original. Confirming Doc Leo Fred Sinus tachycardia Minimal voltage criteria for LVH, may be normal variant ( R in aVL ) Inferior infarct ,age indeterminate Cannot rule out Anterior infarct ,age in determinate Abnormal ECG No previous ECGs available Katrinahéctor Valentine Henriquez DO IP ECG ORDERABLES Performing Organization Address City/[facility]/ZIP Code Phon e Number MUSE (ABNORMAL) ALCOHOL (09/21/2021 11:22 PM CDT) P athologist Signature Alcohol 29.0 (H) <=10.0 09/21/[address] [facility] mg/dL 11:42 PM CDT [facility] Specimen Anatomical Collection Method / Collection Time Recei rehana Time (Source) Location / Volume Laterality Blood BLOOD SPECIMEN / Venipuncture / 09/21/2021 11:22 09/21 Unknown Unknown PM CDT 11:25 PM CDT Abdirahman Henriquez DO EC CHEMISTRY ORDERABLES Performing Organization Address [facility] Phon e Number [facility] [address] [address] LABORATORY (ABNORMAL) MAGNESIUM (09/21/2021 11:22 PM CDT) P athologist Signature Magnesium 0.8 (LL) 1.8 - 2.7 09/22/[address] [facility] [facility] mg/dL 12:02 AM CDT [facility] Specimen Anatomical Collection Method / Collection Time Recei rehana Time (Source) Location / Volume Laterality Blood BLOOD SPECIMEN / Venipuncture / 09/21/2021 11:22 09/21 Unknown Unknown PM CDT 11:25 PM CDT Abdirahman Rigginsas DO EC CHEMISTRY ORDERABLES Performing Organization Address [facility] Phon e Number [facility] [address] [address] LABORATORY (ABNORMAL) PHOSPHORUS (09/21/2021 11:22 PM CDT) P athologist Signature Phosphorus 2.2 (L) 2.5 - 4.6 09/21/[address] [facility] [facility] mg/dL 11:46 PM CDT [facility] Specimen Anatomical Collection Method / Collection Time Recei rehana Time (Source) Location / Volume Laterality Blood BLOOD SPECIMEN / Venipuncture / 09/21/2021 11:22 09/21 Unknown Unknown PM CDT 11:25 PM CDT Abdirahman T Henriquez DO EC CHEMISTRY ORDERABLES Performing Organization Address City/[facility] Phon e Number [facility] [address] [address] LABORATORY (ABNORMAL) HEMOGRAM/DIFFERENTIAL (09/21/2021 11:22 PM CDT) Patholo gist Method Time Signature WBC 7.6 3.2 - 09/21/[address]21 ST. 11.0 11:28 PM [facility] 10*9/L [facility] RBC 3.85 (L) 4.14 - 09/21/[address] 5.76 11:28 PM [facility] 10*12/L [facility] HGB 12.3 (L) 12.9 - 09/21/[address] 16.9 g/dL 11:28 PM [facility] HCT 34.9 (L) 38.4 - 09/21/[address] 49.7 % 11:28 PM [facility] MCV 90.6 81.4 - 09/21/[address]21 ST[address] 99.0 fL 11:28 PM [facility] MCH 31.9 26.7 - 09/21/[address]21 ST. 33.1 pg 11:28 PM [facility] MCHC 35.2 31.6 - 09/21/2021 ST. 35.5 g/dL 11:28 PM [facility] RDW 13.0 11.3 - 09/21/[address] 14.6 % 11:28 PM [facility] PLT 163 130 - 375 09/21/2021 ST. 10*9/L 11:28 PM [facility] Neutrophils % 75.8 % 09/21/2021 ST. 11:28 PM [facility] Lymphocytes % 8.7 % 09/21/2021 ST. 11:28 PM [facility] Monocytes % 11.5 % 09/21/2021 ST. 11:28 PM [facility] Eosinophils % 2.8 % 09/21/2021 ST. 11:28 PM [facility] Basophils % 0.7 % 09/21/2021 ST. 11:28 PM [facility] Immature 0.5 % 09/21/2021 ST. Granulocytes % 11:28 PM [facility] Neutrophils 5.7 1.5 - 7.6 09/21/2021 ST. Absolute 10*9/L 11:28 PM [facility] Lymphocytes 0.7 (L) 0.8 - 3.3 09/21/2021 ST[facility] 10*9/L 11:28 PM [facility] Monocytes 0.9 0.2 - 0.9 09/21/2021 ST[facility] Absolute 10*9/L 11:28 PM [facility] Eosinophils 0.2 0.0 - 0.4 09/21/2021 ST[facility] 10*9/L 11:28 PM [facility] Basophils 0.1 0.0 - 0.1 09/21/2021 ST[facility] 10*9/L 11:28 PM [facility] Immature 0.04 0.00 - 09/21/[address]21 ST. Granulocytes 0.06 11:28 PM [facility] Absolute 10*9/L [facility] Specimen Anatomical Collection Method / Collection Time Recei rehana Time (Source) Location / Volume Laterality Blood BLOOD SPECIMEN / Venipuncture / 09/21/2021 11:22 09/21 Unknown Unknown PM CDT 11:25 PM CDT Abdirahman SCHULTZ HEMATOLOGY ORDERABLES Performing Organization Address City/State/ZIP Code Phon e Number [facility] [address] [place] [address] LABORATORY (ABNORMAL) BASIC METABOLIC PANEL (09/21/2021 11:22 PM CDT) [facility] Method Time Signature Sodium 135 134 - 143 09/21/2021 ST. mEq/L 11:46 PM [facility] Potassium 3.2 (L) 3.4 - 5.1 09/21/2021 ST. mEq/L 11:46 PM [facility] Chloride 93 (L) 99 - 110 09/21/2021 ST. mEq/L 11:46 PM [facility] Carbon Dioxide 16 (L) 19 - 29 09/21/2021 ST. mEq/L 11:46 PM [facility] Anion Gap 26.0 (H) 3.0 - 15.0 09/21/2021 ST. mEq/L 11:46 PM [facility] Blood Urea 10 5 - 24 09/21/2021 ST. Nitrogen mg/dL 11:46 PM [facility] Creatinine 0.98 0.70 - 09/21/2021 ST. 1.20 mg/dL 11:46 PM [facility] Glomerular >60 >60 09/21/2021 ST. Filtration Rate mL/min/1.7 11:46 PM [facility] 3 m*2 [facility] Comment: Complications of CKD and risk o f cardiovascular disease increase when GFR is below 60ml.min/1.73m2. A persistently re duced GFR is a specific indication of Chronic Kidney Disease. The eGFR calculation has not been validated in patients >70yrs. Calcium 8.4 8.4 - 10.5 mg/dL 09/21/2021 11:46 PM [facility] Glucose 120 (H) 70 - 99 mg/dL 09/21/2021 11:46 PM [facility] Specimen Anatomical Collection Method / Collection Time Recei rehana Time (Source) Location / Volume Laterality Blood BLOOD SPECIMEN / Venipuncture / 09/21/2021 11:22 09/21 Unknown Unknown PM CDT 11:25 PM CDT Narrative [facility] Y - 09/21/2021 11:46 PM CDT Current ADA criteria for Glucose: ?Normal: 70-99 mg/dL ?Impaired Fasting Glucose: 100-125 mg/dL ?Diabetes Mellitus: at or above 126 mg/dL The diagnosis of diabetes must be confir med on a subsequent day by measuring Fasting Plasma Glucose, 2-hr PG or random plasma glucose (if symptoms are present). Abdirahman Henriquez DO EC CHEMISTRY ORDERABLES Performing Organization Address City/State/ZIP Code Phon e Number [facility] [address] [place] [phone] LABORATORY documented in this encounter Visit Diagnoses Diagnosis Alcohol withdrawal seizure with complica tion (HCC) - Primary Tachycardia Tachycardia, unspecified Hypomagnesemia Disorders of magnesium metabolism Hypokalemia Hypopotassemia Hypophosphatemia Disorders of phosphorus metabolism Alcohol withdrawal seizure without compl ication (HCC) Alcohol withdrawal seizure without compl ication (HCC) Alcohol abuse Alcohol abuse, unspecified Hypokalemia Hypopotassemia Hypophosphatemia Disorders of phosphorus metabolism Hypomagnesemia Disorders of magnesium metabolism Essential hypertension Unspecified essential hypertension Mixed hyperlipidemia documented in this encounter Administered Medications Inactive Administered Medications Medication Order MAR Action Action Date Dose Rate Site acetaminophen (Tylenol) 160 MG/5ML suspe nsion 650 mg 650 mg, Oral, EVERY 4 HOURS NEEDED, S tarting on Mon09/22/21 at 0217, Until 09/26/21 at 1716, Mild Pain (1-3), Fever acetaminophen (Tylenol) suppository 650 mg 650 mg, Rectal, EVERY 4 HOURS NEEDED, Starting on Mon09/22/21 at 0217, Until 09/26/21 at 1716, Mild Pain (1-3), Fever acetaminophen (TYLENOL) tablet 650 mg 650 mg, Oral, EVERY 4 HOURS NEEDED, S tarting on Mon09/22/21 at 0217, Until 09/26/21 at 1716, Mild Pain (1-3), Fever amLODIPine (Norvasc) tablet 5 mg Given 09/26/2021 8:29 AM CDT 5 mg 5 mg, Oral, ONCE DAILY, First dose on Mon09/22/21 at 1130, Until Discontinued Given 09/25/2021 8:59 AM CDT 5 mg Given 09/24/2021 9:22 AM CDT 5 mg Given 09/22/2021 12:08 PM CDT 5 mg calcium carbonate (Tums) chewable tablet 500 Given 07/2021 6:40 PM CDT 500 mg mg 500 mg, Chew, NEEDED, Starting on 09/25/21 at 1822, Until 09/26/21 at 1716, Heartburn, with meals cloNIDine (Catapres) tablet 0.2 mg 0.2 mg, Oral, 2 TIMES DAILY NEEDED, S tarting on Mon09/22/21 at 1121, Until 09/26/21 at 1716, Withdrawal, For systolic blood pressur e greater than 180 or diastolic greater than 105 dextrose 5 % and 0.9% NaCl 1,000 mL with New Bag 09/23/2021 5: 40 AM CDT 75 mL/hr potassium chloride 20 mEq infusion Intravenous, at 75 mL/hr, CONTINUOUS, Starting on Mon09/22/21 at 0300, Until Mon09/23/21 at 0838 New Bag 09/22/2021 4:12 PM CDT 75 mL/hr New Bag 09/22/2021 3:11 AM CDT 75 mL/hr dextrose 5 % and 0.9% NaCl 1,000 mL with New Bag 09/24/2021 4: 56 PM CDT 75 mL/hr potassium chloride 20 mEq infusion Intravenous, at 75 mL/hr, CONTINUOUS, Starting on Mon09/23/21 at 0900, Until Mon09/24/21 at 1714 New Bag 09/24/2021 1:39 AM CDT 75 mL/hr New Bag 09/23/2021 3:15 PM CDT 75 mL/hr diazePAM (Valium) tablet 5 mg Given 09/21/2021 11:35 PM CDT 5 mg 5 mg, Oral, ONCE, 1 dose, On Mon09/21/21 at 2320 famotidine (PF) (Pepcid) injection 20 mg Given 09/21/2021 11:37 PM CDT 20 mg 20 mg, IV Push, ONCE, 1 dose, On Mon09/21/21 at 2325 folic acid tablet 1 mg Given 09/21/2021 11:35 PM CDT 1 mg 1 mg, Oral, ONCE, 1 dose, On Mon09/21/21 at 2320 folic acid tablet 1 mg Given 09/26/2021 8:29 AM CDT 1 mg 1 mg, Oral, ONCE DAILY, First dose on Mon09/22/21 at 1200, Until Discontinued Given 09/25/2021 8:59 AM CDT 1 mg Given 09/24/2021 9:22 AM CDT 1 mg Given 09/22/2021 12:08 PM CDT 1 mg LORazepam (Ativan) injection 0.5-1 mg Given 09/23/2021 6:41 PM CDT 1 mg 0.5-1 mg, IV Push, EVERY 4 HOURS NEEDED, Starting on Mon09/23/21 at 1825, Until Mon09/26/21 at 1716, Withdrawal, Agitation, Anxiety, Seizures LORazepam (Ativan) injection 1 mg Given 09/21/2021 11:37 PM CDT 1 mg 1 mg, IV Push, ONCE, 1 dose, On Mon09/21/21 at 2320 LORazepam (Ativan) injection 1-4 mg Given 09/22/2021 8:54 AM CDT 1 mg 1-4 mg, IV Push, EVERY 1 HOUR NEEDED, Starting on Mon09/22/21 at 0217, Until Mon09/22/21 at 1650, Withdrawal LORazepam (Ativan) injection 2 mg Given 09/23/2021 9:27 AM CDT 2 mg 2 mg, IV Push, EVERY 4 HOURS NEEDED, Starting on Mon09/23/21 at 0923, Until Mon09/23/21 at 1809, Agitation, Withdrawal, Seizures, Anxiety LORazepam (Ativan) tablet 1 mg Given 09/23/2021 11:16 PM CDT 1 mg 1 mg, Oral, EVERY 4 HOURS NEEDED, Starting on Mon09/23/21 at 1800, Until Mon09/26/21 at 1716, Anxiety LORazepam (Ativan) tablet 1-4 mg Given 09/22/2021 2:44 PM CDT 1 mg 1-4 mg, Oral, EVERY 1 HOUR NEEDED, Starting on Mon09/22/21 at 0217, Until Mon09/22/21 at 1650, Withdrawal Given 09/22/2021 4:16 AM CDT 1 mg LORazepam (Ativan) tablet 2 mg Given 09/23/2021 2:37 AM CDT 2 mg 2 mg, Oral, ONCE, 1 dose, On Mon09/23/21 at 0230 magnesium sulfate 2 g in 50 mL water New Bag 09/22/2021 3:19 A M CDT 2 g 33.3 mL/hr for infusion (pre-mix) 2 g, Intravenous, at 33.3 mL/hr, ONCE, 1 dose, On Mon09/22/21 at 0300 magnesium sulfate in water infusion 4 New Bag 09/22/2021 12:20 AM CDT 4 g 40 mL/hr g 4 g, Intravenous, at 40 mL/hr, ONCE, 1 dose, On Mon09/22/21 at 0030 magnesium sulfate in water infusion 4 New Bag 09/23/2021 10:37 AM CDT 4 g 25 mL/hr g 4 g, Intravenous, at 25 mL/hr, ONCE, 1 dose, On Mon09/23/21 at 1100 ondansetron (Zofran ODT) disintegrating tablet Given 0 09/25/2021 10:41 AM CDT 4 mg 4 mg 4 mg, Oral, EVERY 6 HOURS NEEDED, Starting on Mon09/22/21 at 0217, Until Mon09/26/21 at 1716, Nausea, Vomiting ondansetron (ZOFRAN) injection 4 mg Given 09/22/2021 12:01 AM CDT 4 mg 4 mg, IV Push, ONCE, 1 dose, On Mon09/21/21 at 2350 ondansetron (ZOFRAN) injection 4 mg 4 mg, IV Push, EVERY 6 HOURS NEEDED, Starting on Mon09/22/21 at 0217, Until Mon09/26/21 at 1716, Nausea, Vomiting pantoprazole (Protonix) tablet 40 mg Given 09/25/2021 6:40 PM CDT 40 mg 40 mg, Oral, DAILY AT 1700, First dose on Mon09/25/21 at 1830, Until Discontinued PHENobarbital (Luminal) tablet 32.4 mg 32.4 mg, Oral, EVERY 12 HOURS, 4 doses, First dose on Mon09/27/21 at 0900, Last dose on Mon09/28/21 at 2100 PHENobarbital (Luminal) tablet 64.8 mg Given 09/26/2021 8:29 AM CDT 64.8 mg 64.8 mg, Oral, EVERY 12 HOURS, 4 doses, First dose on Mon09/25/21 at 0900, Last dose on Mon09/26/21 at 2100 Given 09/25/2021 8:43 PM CDT 64.8 mg Given 09/25/2021 9:04 AM CDT 64.8 mg PHENobarbital (Luminal) tablet 97.2 mg Given 09/24/2021 9:13 PM CDT 97.2 mg 97.2 mg, Oral, EVERY 12 HOURS, 4 doses, First dose on Mon09/23/21 at 1130, Last dose on Mon09/24/21 at 2100 Given 09/24/2021 9:22 AM CDT 97.2 mg Given 09/23/2021 10:08 PM CDT 97.2 mg PHENobarbital Sodium (LUMINAL) New Bag 09/22/2021 10:33 PM CDT 286 mg 208.8 mL/hr 286 mg in sodium chloride 0.9% (NS) IVPB 286 mg (rounded from 282.8 mg = 4 mg/kg ? 70.7 kg Tat[place] weight), Intravenous, at 208.8 mL/hr, ONCE, 1 dose, On Mon09/22/21 at 2100 PHENobarbital Sodium (LUMINAL) New Bag 09/23/2021 1:03 AM CDT 286 mg 208.8 mL/hr 286 mg in sodium chloride 0.9% (NS) IVPB 286 mg (rounded from 282.8 mg = 4 mg/kg ? 70.7 kg [place] weight), Intravenous, at 208.8 mL/hr, ONCE, 1 dose, On Na 09/23/21 at 0000 PHENobarbital Sodium (LUMINAL) New Bag 09/22/2021 6:20 PM CDT 494 mg 215.2 mL/hr 494 mg in sodium chloride 0.9% (NS) IVPB 494 mg (rounded from 494.9 mg = 7 mg/kg ? 70.7 kg [place] weight), Intravenous, at 215.2 mL/hr, ONCE, 1 dose, On Mon09/22/21 at 1800 potassium chloride (Klor-Con) packet 20 mEq Given 09/24/2021 5:43 PM CDT 20 mEq 20 mEq, Oral, EVERY 3 HOURS, 3 doses, First dose on Mon09/24/21 at 1200, Last dose on Mon09/24/21 at 1800 Given 09/24/2021 3:29 PM CDT 20 mEq Given 09/24/2021 12:53 PM CDT 20 mEq potassium chloride (Klor-Con) packet 40 mEq Given 09/22/2021 12:38 AM CDT 40 mEq 40 mEq, Oral, ONCE, 1 dose, On Mon09/22/21 at 0005 potassium chloride CR (K-Dur, Klor-Con M) Given 09/26/2021 8:29 AM CDT 20 mEq tablet 20 mEq 20 mEq, Oral, ONCE DAILY, 3 doses, First dose on Mon09/25/21 at 0900, Last dose on Mon09/27/21 at 0900 Given 09/25/2021 8:58 AM CDT 20 mEq potassium phosphates 15 mmol in Restarted 09/22/2021 4:46 AM CDT 63.8 mL/hr sodium chloride 0.9% (NS) 250 mL IVPB 15 mmol, Intravenous, at 63.8 mL/hr, ONCE, 1 dose, On Mon09/22/21 at 0300 New Bag 09/22/2021 3:15 AM CDT 15 mmol 63.8 mL/hr prochlorperazine (COMPAZINE) injection 1 0 mg Given 09/22/2021 12:54 AM CDT 10 mg 10 mg, IV Push, ONCE, 1 dose, On Mon09/22/21 at 0045 sodium chloride 0.9% (NS) New Bag 09/21/2021 11:45 PM CDT 1,000 mL 500 mL/hr infusion 1,000 mL 1,000 mL, Intravenous, at 500 mL/hr, ONCE, 1 dose, On Mon09/21/21 at 2320 sodium chloride 0.9% IV FLUSH (NS) SYRIN GE 3 mL Given 09/26/2021 8:34 AM CDT 3 mL 3 mL, IV Flush, EVERY 8 HOURS, First dose on Mon09/22/21 at 0600, Until Discontinued Given 09/25/2021 8:44 PM CDT 3 mL Given 09/25/2021 2:43 PM CDT 3 mL Given 09/25/2021 8:59 AM CDT 3 mL Given 09/24/2021 9:27 PM CDT 3 mL sodium chloride 0.9% IV LINE FLUSH (NS) BAG 30 Given 0 09/22/2021 7:19 PM CDT 30 mL mL 30 mL, IV Flush, SEE ADMINISTRATION INSTRUCTIONS, Starting on Mon09/22/21 at 0217, Until Mon09/26/21 at 1716, Other, priming/flush fluid therapeutic multivitamin tablet 1 Tablet Given 09/21/2021 11:34 PM CDT 1 Tablet 1 Tablet, Oral, ONCE, 1 dose, On Mon09/21/21 at 2320 thiamine (B-1) injection 200 mg Given 09/21/2021 11:36 PM CDT 200 mg 200 mg, IV Push, ONCE, 1 dose, On Mon09/21/21 at 2320 thiamine (B-1) injection 400 mg Given 09/24/2021 9:21 AM CDT 400 mg 400 mg, IV Push, ONCE DAILY, 3 doses, First dose on Mon09/22/21 at 0800, Last dose on Mon09/24/21 at 0800 Given 09/23/2021 8:03 AM CDT 400 mg Given 09/22/2021 9:10 AM CDT 400 mg thiamine (Vitamin B-1) tablet 500 mg Given 09/26/2021 8:29 AM CDT 500 mg 500 mg, Oral, ONCE DAILY, First dose on Mon09/25/21 at 0800, Until Discontinued Given 09/25/2021 8:58 AM CDT 500 mg documented in this encounter Discontinued Medications Medication Sig Discontinue Reason Start Date End Date amLODIPine (Norvasc) 5 MG Take 1 Tablet by Reorder 09/27/2021 09/26/2021 tablet mouth one time a day for 30 days. folic acid 1 MG tablet Take 1 Tablet by Reorder 09/27/2021 0 09/26/2021 mouth one time a day for 10 days. pantoprazole (Protonix) Take 1 Tablet by Reorder 09/26/2021 09/26/2021 40 MG delayed-release mouth every evening tablet for 30 days. Do not crush. PHENobarbital (Luminal) Take 1 Tablet by Reorder 09/26/2021 09/26/2021 64.8 MG tablet mouth every 12 hours for 1 day. PHENobarbital (Luminal) Take 1 Tablet by Reorder 09/27/2021 09/26/2021 32.4 MG tablet mouth every 12 hours for 4 doses. thiamine 250 MG Tablet Take 500 mg by Reorder 09/27/202108/2021 mouth one time a day for 10 days. documented as of this encounter Historical Medications This list may reflect changes made after this encounter. Medication Sig Dispensed Refills Start Date End Date aspirin EC 81 MG tablet Take 81 mg by mouth one 0 time a day. Do not split or crush. unknown medication 1 Each by SEE ADMIN 0 INSTRUCTIONS route every morning. One Blood Pressure med and One Cholesterol med added in this encounter Active and Recently Administered Medications Times are shown in CDT. Scheduled Medication Order 09/24/2021 09/25/2021 09/26/2021 amLODIPine (Norvasc) tablet 5 mg 0922 (Given - Provider: Lainey Jackson RN) 0859 (Given - Provider: Ana M Jackson RN) 0829 (Given - Provider: Ana M Jackson RN ) 5 mg, Oral, ONCE DAILY, First dose on Mon09/22/21 at 1130, Until Discontinued folic acid tablet 1 mg 0922 (Given - Provider: Ana M Jackson RN) 0859 (Given - Provider: Ana M Jackson RN) 08 (Given - Provider: Ana M Jackson RN ) 1 mg, Oral, ONCE DAILY, First dose on Mon09/22/21 at 1200, Until Discontinued pantoprazole (Protonix) tablet 40 mg 1840 (Given - Provider: Ana M Jackson RN) 40 mg, Oral, DAILY AT 1700, First dose o n 09/25/21 at 1830, Until Discontinued PHENobarbital (Luminal) tablet 32.4 mg(Linked Group 1) 32.4 mg, Oral, EVERY 12 HOURS, 4 doses, First dose on Mon09/27/21 at 0900, Last dose on Mon09/28/21 at 2100 PHENobarbital (Luminal) tablet 64.8 mg(Linked Group 1) 09 (Given - Provider: Ana M Jackson RN - Comment: last order was completed and discontinued. Dose is being tapered down per orders/JUN.)2042 (Given - Provider: Diane Cox RN) 08 (Given - Provider: Ana M Jackson RN - Comment: tappering dose) 64.8 mg, Oral, EVERY 12 HOURS, 4 doses, First dose on 09/25/21 at 0900, Last dose on Mon09/26/21 at 2100 PHENobarbital (Luminal) tablet 97.2 mg ()(Linke d Group 1) 921 (Given - Provider: Ana M Jackson RN)2112 (Given - Provider: Florida Landry RN) 97.2 mg, Oral, EVERY 12 HOURS, 4 doses, First dose on Na 09/23/21 at 1130, Last dose on Mon09/24/21 at 2100 potassium chloride (Klor-Con) packet 20 mEq (COMPLETED ) 1253 (Given - Provider: Ana M Jackson RN)1529 (Given - Provider: Ana M Jackson RN)1743 (Given - Provider: Ana M Jackson, OZZIE) 20 mEq, Oral, EVERY 3 HOURS, 3 doses, Fi rst dose on Mon09/24/21 at 1200, Last dose on Mon09/24/21 at 1800 potassium chloride CR (K-Dur, Klor-Con M) tablet 20 mEq 0858 (Given - Provider: Ana M Jackson RN) 0829 (Given - Provider: Ana M Jackson RN ) 20 mEq, Oral, ONCE DAILY, 3 doses, First dose on Mon09/25/21 at 0900, Last dose on Mon09/27/21 at 0900 sodium chloride 0.9% IV FLUSH (NS) SYRINGE 3 mL 0501 ( Not Given - Provider: Mat Meraz RN - Reason: IV Infusing)1301 (Not Given - Provider: Ana M Jackson RN - Reason: IV Infusing)2127 (Given - Provider: Florida Landry, OZZIE) 0859 (Given - Provider: Ana M Jackson RN)1443 (Given - Provider: Ana M Jackson RN)2044 (Given - Provider: Diane Cox RN) 0834 (Given - Provider: Ana M Jackson RN) 3 mL, IV Flush, EVERY 8 HOURS, First dos e on Mon09/22/21 at 0600, Until Discontinued thiamine (B-1) injection 400 mg (COMPLETED) 920 (Give n - Provider: Ana M Jackson RN) 400 mg, IV Push, ONCE DAILY, 3 doses, Fi rst dose on Mon09/22/21 at 0800, Last dose on Mon09/24/21 at 0800 thiamine (Vitamin B-1) tablet 500 mg 0858 (Given - Provider: Ana M Jackson RN) 08 (Given - Provider: Ana M Jackson RN) 500 mg, Oral, ONCE DAILY, First dose on Mon09/25/21 at 0800, Until Discontinued Continuous Medication Order 09/24/2021 09/25/2021 09/26/2021 dextrose 5 % and 0.9% NaCl 1,000 mL with potassium chloride 20 mEq infusion () 0139 (New Bag - Provider: Mat Meraz RN)1656 (New Bag - Provider: Yamil Ramires RN)2128 (Stopped - Provider: Florida Landry, OZZIE) Intravenous, at 75 mL/hr, CONTINUOUS, St arting on Mon09/23/21 at 0900, Until Mon09/24/21 at 1714 PRN Medication Order 09/24/2021 09/25/2021 09/26/2021 acetaminophen (Tylenol) 160 MG/5ML suspension 650 mg(Linked Grou p 2) 650 mg, Oral, EVERY 4 HOURS NEEDED, S tarting on Mon09/22/21 at 0217, Until 09/26/21 at 1716, Mild Pain (1-3), Fever acetaminophen (Tylenol) suppository 650 mg(Linked Group 2) 650 mg, Rectal, EVERY 4 HOURS NEEDED, Starting on Mon09/22/21 at 0217, Until 09/26/21 at 1716, Mild Pain (1-3), Fever acetaminophen (TYLENOL) tablet 650 mg(Linked Group 2) 650 mg, Oral, EVERY 4 HOURS NEEDED, S tarting on Mon09/22/21 at 0217, Until 09/26/21 at 1716, Mild Pain (1-3), Fever calcium carbonate (Tums) chewable tablet 500 mg 1840 (Given - Provider: Ana M Jackson RN) 500 mg, Chew, NEEDED, Starting on 09/25/21 at 1822, Until 09/26/21 at 1716, Heartburn, with meals cloNIDine (Catapres) tablet 0.2 mg 0.2 mg, Oral, 2 TIMES DAILY NEEDED, S tarting on Mon09/22/21 at 1121, Until 09/26/21 at 1716, Withdrawal, For systolic blood pressure greater than 180 or diastolic greater than 105 LORazepam (Ativan) injection 0.5-1 mg 0.5-1 mg, IV Push, EVERY 4 HOURS NEED ED, Starting on Mon09/23/21 at 1825, Until 09/26/21 at 1716, Withdrawal, Agitation, Anxiety, Seizures LORazepam (Ativan) tablet 1 mg 1 mg, Oral, EVERY 4 HOURS NEEDED, Sta rting on Mon09/23/21 at 1800, Until 09/26/21 at 1716, Anxiety ondansetron (Zofran ODT) disintegrating tablet 4 mg(Linked G roup 3) 1041 (Given - Provider: Ana M Jackson RN) 4 mg, Oral, EVERY 6 HOURS NEEDED, Sta rting on Mon09/22/21 at 0217, Until Sun 5/22 at 1716, Nausea, Vomiting ondansetron (ZOFRAN) injection 4 mg(Linked Group 3) 1041 (See Alternative - Provider: Ana M Jackson RN) 4 mg, IV Push, EVERY 6 HOURS NEEDED, Starting on Mon09/22/21 at 0217, Until 09/26/21 at 1716, Nausea, Vomiting sodium chloride 0.9% IV FLUSH (NS) SYRINGE 3 mL 3 mL, IV Flush, NEEDED, Starting on W ed 09/22/21 at 0217, Until 09/26/21 at 1716, Other, flushes sodium chloride 0.9% IV LINE FLUSH (NS) BAG 30 mL 30 mL, IV Flush, SEE ADMINISTRATION INST RUCTIONS, Starting on Mon09/22/21 at 0217, Until Mon09/26/21 at 1716, Other, priming/flush fluid Linked Groups Order Group 1: PHENobarbital (Luminal) tablet 97.2 mg ()Jump to med 97.2 mg, Oral, EVERY 12 HOURS, 4 doses, First dose on Na 09/23/21 at 1130, Last dose on Mon09/24/21 at 2100 Followed by PHENobarbital (Luminal) tablet 64.8 mgJump to med 64.8 mg, Oral, EVERY 12 HOURS, 4 doses, First dose on Mon09/25/21 at 0900, Last dose on Mon09/26/21 at 2100 Followed by PHENobarbital (Luminal) tablet 32.4 mgJump to med 32.4 mg, Oral, EVERY 12 HOURS, 4 doses, First dose on Mon09/27/21 at 0900, Last dose on Mon09/28/21 at 2100 Group 2: acetaminophen (TYLENOL) tablet 650 mgJump to med 650 mg, Oral, EVERY 4 HOURS NEEDED, S tarting on Mon09/22/21 at 0217, Until 09/26/21 at 1716, Mild Pain (1-3), Fever Or acetaminophen (Tylenol) 160 MG/5ML suspension 650 mgJump to med 650 mg, Oral, EVERY 4 HOURS NEEDED, S tarting on Mon09/22/21 at 0217, Until 09/26/21 at 1716, Mild Pain (1-3), Fever Or acetaminophen (Tylenol) suppository 650 mgJump to med 650 mg, Rectal, EVERY 4 HOURS NEEDED, Starting on Mon09/22/21 at 0217, Until Mon09/26/21 at 1716, Mild Pain (1-3), Fever Group 3: ondansetron (ZOFRAN) injection 4 mgJump to med 4 mg, IV Push, EVERY 6 HOURS NEEDED, Starting on Mon09/22/21 at 0217, Until Mon09/26/21 at 1716, Nausea, Vomiting Or ondansetron (Zofran ODT) disintegrating tablet 4 mgJump to med 4 mg, Oral, EVERY 6 HOURS NEEDED, Sta rting on Mon09/22/21 at 0217, Until Mon09/26/21 at 1716, Nausea, Vomiting documented in this encounter Orders Medications Ordered That Might Not Have Count Last Ord ered Date First Ordered Date Been Administered Electrolyte Protocol MAR Message 1 Each 1 09/25/19 acetaminophen (Tylenol) 160 MG/5ML 1 09/22/2021 suspension 650 mg acetaminophen (Tylenol) suppository 650 mg 09/22 acetaminophen (TYLENOL) tablet 650 mg 09/22/2021 cloNIDine (Catapres) tablet 0.2 mg 1 09/22/2021 LORazepam (Ativan) injection 1-4 mg 1 09/22/2021 magnesium sulfate 6 g in sodium chloride 1 022 0.9% (NS) 250 mL IVPB ondansetron (ZOFRAN) injection 4 mg 1 09/22/2021 PHENobarbital (Luminal) tablet 32.4 mg 1 sodium chloride 0.9% IV FLUSH (NS) SYRINGE 1 09/22 3 mL Admission Count Last Ordered Date First Ordered Date ADMIT TO INPATIENT 1 09/23/2021 Transfer Count Last Ordered Date First Ordered Date ED BED REQUEST 09/22/2021 Discharge Count Last Ordered Date First Ordered Date DISCHARGE PATIENT 1 09/26/2021 Diet Count Last Ordered Date First Ordered Date DIET/NPO STATUS ESS 09/26/2021 Nursing Count Last Ordered Date First Ordered Date ACTIVITY TOLERATED 1 09/26/2021 DISCHARGE CODE STATUS 09/26/2021 INSERT PERIPHERAL IV 1 09/21/2021 Consult Count Last Ordered Date First Ordered Date IP CONSULT TO CHEMICAL DEPENDENCY 1 09/22/2021 PHARMACIST MEDICATION RECONCILIATION 09/22/2021 documented in this encounter
[2022-03-22 14:29] LABS: Basophils Absolute Auto 0.03 K/uL (0.00-0.30); Basophils Percent Auto 0.6 % (0.0-3.0); Hemoglobin* 13.1 gm/dL (13.5-17.5); Immature Granulocytes Abs Auto 0.02 K/uL (0.00-0.30); Immature Granulocytes Pct Auto 0.4 %; Mean Corpuscular HGB Conc 34 gm/dL (32-36); Mean Corpuscular Hemoglobin 31 pg (26-34); Mean Corpuscular Volume 93 fL (80-100); Monocytes Percent Auto 12.6 % (0.0-11.0); Neutrophils Percent Auto 73.4 % (42.0-72.0); Platelet Count* 164 K/uL (140-440); RDW Coefficient of Variation % 15.3 % (11.5-15.5); Red Blood Count 4.21 m/uL (4.30-5.90); White Blood Count* 4.78 K/uL (4.50-11.00)
[2022-03-22 14:38] LABS: Troponin, Point-of-Care* 0.02 ng/ml (0.01-0.04)
[2022-03-22 14:42] LABS: Albumin* 4.6 g/dL (3.3-5.0)
[2022-03-22 14:43] LABS: Chloride* 101 mmol/L (96-114); Sodium* 142 mmol/L (135-149)
[2022-03-22 14:44] LABS: INR 0.94 (0.91-1.10); Prothrombin Time 13.2 Seconds
[2022-03-22] MEDS: 0.9 % SODIUM CHLORIDE 1000 ml 1,000 ML IV ×4 (14:44→23:54)
[2022-03-22 14:45] LABS: Aspartate Amino Transferase* 206 U/L (12-35); Bilirubin Direct* 0.4 mg/dL (0.0-0.5); Blood Urea Nitrogen* 16 mg/dL (7-30); Carbon Dioxide* 18 mmol/L (20-32); Creatinine* 1.1 mg/dL (0.5-1.5); Est. Creatinine Clearance* 69.95; Estimated Glomerular Filt Rate 77 ml/min; Partial Thromboplastin Time* 27 Seconds (23-33)
[2022-03-22 14:46] LABS: Alanine Aminotransferase* 51 U/L (4-50); Alkaline Phosphatase* 103 U/L (40-150); Calcium* 7.8 mg/dL (8.4-10.6); Ethanol* 0.23 % (0.01-0.03); Glucose* 126 mg/dL (60-115)
[2022-03-22] MEDS: ONDANSETRON 2 MG/ML inj 4 MG IVP (14:46)
[2022-03-22 14:48] LABS: Slide Review Reflex No
[2022-03-22] MEDS: LORazepam 2 MG/ML inj 1 MG IV ×2 (14:50→16:20)
[2022-03-22] MEDS: MULTIVITAMIN/MINERALS 1 TABLET 1 TAB PO (14:51)
[2022-03-22] MEDS: THIAMINE 100 MG TABLET PO (14:51)
[2022-03-22] MEDS: FOLIC ACID 1 MG TABLET PO (14:51)
[2022-03-22 15:24] LABS: PCR FLU A Negative PCR FLU A (Negative); PCR FLU B Negative PCR FLU B (Negative); PCR RSV Negative PCR RSV (Negative); SARS PCR* Negative SARS-CoV-2 (Negative)
[2022-03-22 15:48] LABS: Appearance Urine Clear (Clear); Bilirubin Urine 2+ (Negative); Blood Urine 1+ (Negative); Color Urine Yellow (Yellow); Glucose Urine Negative (Negative); Ketones Urine 1+ (Negative); Leukocyte Esterase Urine Negative (Negative); Nitrite Urine Negative (Negative); Protein Urine 3+ (Negative); Specific Gravity Urine 1.025 (1.000-1.030); pH Urine 5.5 (5.0-8.5)
[2022-03-22 16:06] LABS: D Dimer Quantitative* 3.48 ug/ml (0.00-0.50)
[2022-03-22 16:07] LABS: Mucus Urine Few; Squamous Epithelial Cell Urine Few (None-Few); WBC Urine 0-2 (0-5)
--- NOTE | 2022-03-22 16:09 | ED.NURSE ---
asking for more anxiety med. dr henley informed and he wants him to wait.
--- NOTE | 2022-03-22 16:12 | CRLHL7_ITS ---
For Patients: As a result of the Century Cures Act, medical imaging exams and procedure reports are released immediately into your electronic medical record. You may view this report before your referring provider. If you have questions, please contact your health care provider. INDICATION: Chest pain, elevated D-dimer. COMPARISON: Chest radiograph 03/22/2022. TECHNIQUE: CT of the chest with 95 cc of Isovue 370 IV contrast. Coronal and sagittal reconstructions. FINDINGS: Normal heart size. Normal caliber thoracic aorta and central pulmonary arteries. There are acute pulmonary emboli within segmental and subsegmental branches of the right lower lobe and subsegmental branches of the posterior right upper lobe. No evidence of right heart strain. The RV/LV ratio measures 0.75. No pericardial effusion. No thoracic lymphadenopathy. Bilateral gynecomastia. The thyroid gland is normal in appearance. No focal consolidation, pleural effusion, or pneumothorax. No evidence of pulmonary infarct. 2 mm noncalcified pulmonary nodule in the posterior left upper lobe (series 5 image 46). No central endobronchial lesion or bronchial wall thickening. Severe hepatic steatosis. Multiple bilateral renal cysts suggestive of polycystic kidney disease. The visualized upper abdomen is otherwise unremarkable. The bones are within normal limits. IMPRESSION: 1. Positive for acute pulmonary emboli involving segmental and subsegmental branches of the right upper lobe and right lower lobe. No evidence of right heart strain or pulmonary infarct. 2. 2 mm noncalcified pulmonary nodule in the left upper lobe. Please see follow-up guidelines below. 3. Severe hepatic steatosis. 4. Multiple bilateral renal cysts suggestive of polycystic kidney disease. 5. Findings discussed with Korina Sevilla at 5:50 p.m. on 03/22/2022. [employer] GUIDELINES - SOLID NODULES: : SINGLE LOW RISK - nodule less than 6 mm: No routine follow-up. - nodule 6-8 mm: CT at 6-12 months, then consider CT at 18-24 months. - nodule greater than 8 mm: Consider CT at 3 months, PET/CT or tissue sampling. SINGLE HIGH RISK - nodule less than 6 mm: Optional CT at 12 months. - nodule 6-8 mm: CT at 6-12 months, then CT at 18-24 months. - nodule greater than 8 mm: Consider CT at 3 months, PET/CT or tissue sampling. Please note that all CT scans at this facility use dose modulation, iterative reconstruction, and/or weight-based dosing when appropriate to reduce radiation dose to as low as reasonably achievable. Dictated by Lyla Mazariegos MD @ 03/22/2022 5:49:26 PM (Electronically Signed)
[2022-03-22 16:15] LABS: Troponin, Point-of-Care* 0.03 ng/ml (0.01-0.04)
[2022-03-22] MEDS: THIAMINE 500 MG in 0.9 % SODIUM CHLORIDE 100 ml 100 ML 105 MG IVPB (17:08)
--- NOTE | 2022-03-22 17:12 | ED.NURSE ---
was asking for coke. ankur hs aware of admission. has had ct scan. does have fine motor tremors.
[2022-03-22] MEDS: RIVAROXABAN 10 MG TABLET 15 MG PO (18:42)
[2022-03-22] MEDS: LORazepam 2 MG/ML inj 1 MG IVP (18:55)
[2022-03-22] MEDS: PHENobarbitaL 130 MG in 0.9 % SODIUM CHLORIDE 100 ml 100 ML 204 MG IVPB (19:18)
--- NOTE | 2022-03-22 19:59 | PM.IMHP1 ---
Hospitalist- H&P: HPI History of Present Illness Time Seen by Provider: 19:15 Date Seen: 03/22/22 Chief complaint: Chest pain Narrative: Juan Pablo Brown is a 61 year old male with alcohol dependence who started having pain in the center of his chest this morning. It is not associated with SOB. The pain radiates down both legs. He recalls having something like this about 8 months ago that was self-limited. This pain has been constant and is a little bit less now than it was this morning. He has a history of alcoholism and continues to drink noreen every day. He tells me his last drink was last night around 8:00 p.m. and he feels like he is starting to go through withdrawal already. Review of Systems Status of ROS: Reports: 10 or more systems reviewed and unremarkable except as noted in History and below [facility] Medical History (Updated 03/22/22 @ 20:35 by Adela Westfall MD) Alcohol withdrawal delirium Alcoholic gastritis Alcoholic ketoacidosis Anemia Gout Hyperlipidemia Hypertension Pancreatitis Family History (Updated 03/22/22 @ 20:26 by Adela Westfall MD) Father Diabetes High blood pressure Social History (Updated 03/22/22 @ 20:27 by Adela Westfall MD) Narrative: Nonsmoker. Drinks 6-7 three ounce glasses of noreen per day. Was sober for about 12 years starting around 2009. Denies recreational drugs. FULL CODE. Smoking Status: Never smoker Do you use any of these nicotine containing products: None Second hand tobacco smoke exposure: No How often do you have a drink containing alcohol: 4 or more times a week How many standard drinks containing alcohol do you have on a typical day: 7 to 9 How often do you have six or more drinks on one occasion: Daily or almost daily AUDIT-C Alcohol total score: 11 Non-prescribed substance use: denies use service: No Meds Home Medications and Allergies Home Medications Medication Instructions Recorded Confirmed Type amlodipine 10 mg tablet 10 mg PO DAILY 02/12/22 03/22/22 History metoprolol succinate 50 mg 50 mg PO DAILY 02/12/22 03/22/22 History tablet,extended release 24 hr aspirin 81 mg tablet,delayed 81 mg PO DAILY 03/22/22 03/22/22 History release (Adult Aspirin Regimen) atorvastatin 40 mg tablet 40 mg PO HS 03/22/22 03/22/22 History magnesium oxide 400 mg (241.3 mg 400 mg PO BID 03/22/22 03/22/22 History magnesium) tablet omeprazole 40 mg capsule,delayed 40 mg PO DAILY 03/22/22 03/22/22 History release Allergies Allergy/AdvReac Type Severity Reaction Status Date / Time lisinopril Allergy Verified 02/12/22 12:55 Exam Narrative: Exam Narrative: General: Diaphoretic, tremulous, active alcohol withdrawal. Awake alert oriented x3. HEENT: Normocephalic atraumatic, pupils equally round and reactive to light and accommodation. Oropharynx with the exception that he has some dried blood on his lips, I am finding no open areas or bleeding in the mouth. Mucous membranes are dry. No cervical lymphadenopathy, thyromegaly or carotid bruits. No JVD. Cardiovascular: Tachycardic, regular. No murmurs, gallops, or rubs. Chest: A little tachypneic without distress or use of accessory muscles. Clear to auscultation bilaterally. No crackles or wheezes. Abdomen: Bowel sounds present. Soft, protuberant, nontender. No masses. Extremities: 1+ bilateral pretibial edema, no cyanosis or clubbing. Skin: No jaundice, no pallor, no rashes. Const: Vital Signs, click to edit/add: Vital Signs - 24 hr 03/22/22 13:19 03/22/22 14:43 03/22/22 15:00 Temperature 97.7 F Pulse Rate [Right Pulse Oximeter] 143 H 128 H 13 L Respiratory Rate 18 20 26 H Blood Pressure [Ri ght Upper Arm] 120/85 146/106 H 153/98 H Pulse Oximetry 97 96 97 Oxygen Delivery Ri thod Room Air Room Air Room Air 03/22/22 15:30 03/22/22 17:00 03/22/22 16:11 Temperature Pulse Rate [Right Pulse Oximeter] 130 H 135 H Respiratory Rate 24 19 132 H Blood Pressure [Ri ght Upper Arm] 141/93 H 130/87 Pulse Oximetry 97 96 97 [facility] 03/22/22 16:30 03/22/22 18:30 03/22/22 19:00 Temperature Pulse Rate [Right Pulse Oximeter] 127 H 140 H 142 H Respiratory Rate 22 21 30 H Blood Pressure [Ri ght Upper Arm] 117/92 H 141/92 H 151/92 H Pulse Oximetry 95 96 95 Oxygen Delivery Me thod Room Air Room Air 03/22/22 17:30 03/22/22 18:11 Temperature Pulse Rate [Right Pulse Oximeter] 149 H 141 H Respiratory Rate 31 H 24 Blood Pressure [Ri ght Upper Arm] 144/100 H 140/89 H Pulse Oximetry 96 96 Oxygen Delivery Me thod Room Air Room Air Hospitalist - H&P: Result Labs Labs: Short CBC 03/22/22 Range/Units 14:15 WBC 4.78 (4.50-11.00) K/uL Hgb 13.1 L (13.5-17.5) gm/dL Hct 39.0 (37.0-53.0) % Plt Count 164 (140-440) K/uL BMP 03/22/22 14:15 Sodium 142 Potassium 4.0 Chloride 101 Carbon Dioxide 18 L BUN 16 Creatinine 1.1 Glucose 126 H Calcium 7.8 L Liver Function 03/22/22 Range/Units 14:15 Total Bilirubin 1.0 (0.1-1.5) mg/dL Direct Bilirubin 0.4 (0.0-0.5) mg/dL AST 206 H (12-35) U/L ALT 51 H (4-50) U/L Alkaline Phosphatase 103 (40-150) U/L Albumin 4.6 (3.3-5.0) g/dL Urine 03/22/22 Range/Units 15:25 Urine Color Yellow (Yellow) Urine Appearance Clear (Clear) Urine pH 5.5 (5.0-8.5) Ur Specific [place] 1.025 (1.000-1.030) Urine Protein 3+ A (Negative) Urine Glucose (UA) Negative (Negative) Assessment and Plan Assessment and plan (1) Pulmonary embolism: Status: Acute Assessment and Plan: Treat with Xarelto. Not hypoxic. Obtain ECHO tomorrow to look for evidence of right heart strain. (2) Alcohol dependence: Status: Acute Assessment and Plan: Going through withdrawal already. Give phenobarbital and start CIWA. SW consult. 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 Consult PT and OT. (4) Chest pain: Status: Acute Assessment and Plan: Secondary to PE (5) Volume depletion: Status: Acute Assessment and Plan: Give 1 L normal saline IV bolus. Encourage oral fluid. (6) Alcoholic gastritis: Status: Chronic Assessment and Plan: Continue omeprazole (7) Hyperlipidemia: Status: Chronic Assessment and Plan: Continue Lipitor (8) Hypertension: Status: Chronic Assessment and Plan: Continue amlodipine and metoprolol. (9) Hypocalcemia: Status: Acute Assessment and Plan: Give IV calcium tonight and start oral calcium replacement. (10) Acute urinary retention: Status: Acute Assessment and Plan: Place Tillman catheter and start Flomax.
[2022-03-22] MEDS: LORazepam 2 MG/ML inj IVP ×2 (21:03→23:33)
[2022-03-22] MEDS: THIAMINE 100 MG TABLET 250 MG PO (21:13)
[2022-03-22] MEDS: ATORVASTATIN CALCIUM 40 MG TABLET PO (21:15)
[2022-03-22] MEDS: MAGNESIUM OXIDE 400 MG TABLET PO (21:15)
[2022-03-22 22:07] LABS: Amphetamine Screen Urine Negative (Negative); Barbiturate Screen Urine Negative (Negative); Cannabinoid Screen Urine Negative (Negative); Cocaine Screen Urine Negative (Negative); Methadone Screen Urine Negative (Negative); Methamphetamines Screen Urine Negative (Negative); Opiate Screen Urine Negative (Negative); Oxycodone Screen Urine Negative (Negative); Phencyclidine Screen Urine Negative (Negative); Tricyclic Antidepressant Urine Negative (Negative)
[2022-03-22] MEDS: PHENobarbitaL 260 MG in 0.9 % SODIUM CHLORIDE 100 ml 100 ML 208 MG IVPB (22:08)
[2022-03-22 22:20] LABS: Benzodiazepines Screen Urine POSITIVE (Negative)
[2022-03-22] MEDS: 0.9 % SODIUM CHLORIDE 250 ml IV (23:26)
[2022-03-23] VITALS (30 sets, daily range): BP systolic 92–157; BP diastolic 66–108; PULSE 88–138; RESP 20–42; TEMP 36.4–38.6; O2SAT 90–98
--- NOTE | 2022-03-23 | CRLHL7_ITS ---
For Patients: As a result of the Century Cures Act, medical imaging exams and procedure reports are released immediately into your electronic medical record. You may view this report before your referring provider. If you have questions, please contact your health care provider. DATE: 03/23/2022. CLINICAL HISTORY: Left-sided weakness and facial droop. TECHNIQUE: Standard helical CT image acquisition through the head and neck was performed after intravenous contrast bolus enhancement. Multiplanar reconstructed images were performed and interpreted. COMPARISON: None available. FINDINGS: The origins of the great vessels from the aortic arch are patent. The origins of the right and left vertebral arteries are patent. The common carotid arteries are patent. Mild (less than 50 percent) atherosclerotic stenosis of the proximal left ICA by NASCET criteria. No significant stenosis of the proximal right ICA by NASCET criteria. There is a dissection of the proximal vertical petrous segment of the left internal carotid artery just below the level of the skullbase, with a medially projecting pseudoaneurysm measuring approximately 10mm, and less than 50 percent stenosis of the true lumen. The more distal cervical segment of the right internal carotid artery is patent. The cervical segments of the vertebral arteries are patent. No intracranial proximal large vessel occlusion. Moderate atherosclerotic stenosis of the proximal P2 segment of the right posterior cerebral artery. No evidence of cerebral aneurysm or findings to suggest an arteriovenous shunting lesion. Partial visualization of the known right-sided pulmonary emboli. IMPRESSION: 1. No intracranial proximal large vessel occlusion. 2. Moderate atherosclerotic stenosis of the proximal P2 segment of the right posterior cerebral artery. 3. 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 4. Mild (<50%) atherosclerotic stenosis of the proximal left ICA by NASCET criteria. 5. Partial visualization of the known right-sided pulmonary emboli. Please note that all CT scans at this facility use dose modulation, iterative reconstruction, and/or weight-based dosing when appropriate to reduce radiation dose to as low as reasonably achievable. Dictated by Vince Vaughn MD @ 03/23/2022 10:00:27 AM (Electronically Signed)
[2022-03-23] MEDS: PIPERACILLIN/TAZOBACTAM 3.375 GM in 0.9 % SODIUM CHLORIDE Mini-bag 100 ML IVPB ×4 (01:18→19:54)
[2022-03-23] MEDS: LORazepam 2 MG/ML inj IVP ×7 (01:18→22:08)
[2022-03-23 01:24] LABS: Lactate* 1.2 mmol/L (0.5-1.9)
--- NOTE | 2022-03-23 05:27 | PC.NURSE ---
[id number]: patient turn and repo in bed as tolerated, Tillman patent and draining. CIWAs as charted, Ativan per protocol. patient at start of shift tachy into 150s, febrile, and hypertensive. Dr Westfall updated, see new orders. throughout shift patient has remained tachy 118-130, continues to be febrile but this is trending down, BPs also trending down. patient inc. of bowel X1 this shift.
--- NOTE | 2022-03-23 07:27 | CRLHL7_ITS ---
For Patients: As a result of the Century Cures Act, medical imaging exams and procedure reports are released immediately into your electronic medical record. You may view this report before your referring provider. If you have questions, please contact your health care provider. INDICATION: Left-sided weakness and facial droop. TECHNIQUE: CT head without contrast. COMPARISON: 03/22/2022. FINDINGS: CSF spaces: Within normal limits for age. Brain parenchyma and extra-axial spaces: Moderate atrophy. The rubalcava-white differentiation is normal. No sign of mass, hemorrhage, or midline shift. No extra-axial fluid collection. Skull base and calvarium: The visualized paranasal sinuses and mastoid air cells demonstrate no acute or significant findings. The visualized orbits are grossly unremarkable. No skull fractures. IMPRESSION: No acute findings and no changes from yesterday`s exam. No signs of ischemia, intracranial hemorrhage, or other significant abnormality. Please note that all CT scans at this facility use dose modulation, iterative reconstruction, and/or weight-based dosing when appropriate to reduce radiation dose to as low as reasonably achievable. Dictated by Raphael Regalado MD @ 03/23/2022 8:17:06 AM (Electronically Signed)
--- NOTE | 2022-03-23 07:31 | PC.NURSE ---
patient L sided weakness noted approx. 0600 with CIWA check, L sided facial droop. charge nurse updated. Dr Gooden updated. last known well time with out arm weakness 0200 CIWA check.
[2022-03-23 07:47] LABS: Ionized Calcium* 0.84 mmol/L (1.11-1.30)
[2022-03-23 07:51] LABS: Basophils Absolute Auto 0.04 K/uL (0.00-0.30); Basophils Percent Auto 0.9 % (0.0-3.0); Eosinophils Absolute Auto 0.02 K/uL (0.00-0.50); Eosinophils Percent Auto 0.4 % (0.0-7.0); Hematocrit 30.5 % (37.0-53.0); Hemoglobin* 10.3 gm/dL (13.5-17.5); Immature Granulocytes Abs Auto 0.02 K/uL (0.00-0.30); Immature Granulocytes Pct Auto 0.4 %; Mean Corpuscular HGB Conc 34 gm/dL (32-36); Mean Corpuscular Hemoglobin 32 pg (26-34); Mean Corpuscular Volume 94 fL (80-100); Monocytes Percent Auto 11.5 % (0.0-11.0); Neutrophils Absolute Auto 3.19 K/uL (1.7-7.0); Neutrophils Percent Auto 70.8 % (42.0-72.0); Platelet Count* 104 K/uL (140-440); RDW Coefficient of Variation % 15.7 % (11.5-15.5); Red Blood Count 3.25 m/uL (4.30-5.90); White Blood Count* 4.51 K/uL (4.50-11.00)
[2022-03-23 07:57] LABS: Slide Review Reflex No
[2022-03-23 08:07] LABS: Albumin* 3.6 g/dL (3.3-5.0); Chloride* 101 mmol/L (96-114); Potassium* 3.4 mmol/L (3.6-5.1); Sodium* 136 mmol/L (135-149)
[2022-03-23 08:09] LABS: Aspartate Amino Transferase* 157 U/L (12-35); Bilirubin Total* 1.9 mg/dL (0.1-1.5); Carbon Dioxide* 24 mmol/L (20-32); Creatinine* 0.9 mg/dL (0.5-1.5); Estimated Glomerular Filt Rate 98 ml/min
[2022-03-23 08:10] LABS: Alanine Aminotransferase* 38 U/L (4-50); Alkaline Phosphatase* 71 U/L (40-150); Blood Urea Nitrogen* 11 mg/dL (7-30); Calcium* 6.6 mg/dL (8.4-10.6); Glucose* 108 mg/dL (60-115); Total Protein* 6.4 g/dL (6.0-8.3)
[2022-03-23] MEDS: METOPROLOL SUCCINATE (XL) 50 MG TAB PO (09:03)
[2022-03-23] MEDS: THIAMINE 100 MG TABLET 250 MG PO ×2 (09:03→20:09)
[2022-03-23] MEDS: AMLODIPINE 10 MG TABLET PO (09:04)
[2022-03-23] MEDS: MAGNESIUM OXIDE 400 MG TABLET PO ×2 (09:04→20:08)
[2022-03-23] MEDS: ASPIRIN 81 MG TABLET EC PO (09:04)
[2022-03-23] MEDS: TAMSULOSIN HCL 0.4 MG CAPSULE PO (09:04)
[2022-03-23] MEDS: RIVAROXABAN 10 MG TABLET 15 MG PO ×2 (09:04→20:07)
[2022-03-23] MEDS: OMEPRAZOLE 20 MG CAPSULE DR 40 MG PO (09:05)
[2022-03-23] MEDS: MULTIVITAMIN/MINERALS 1 TABLET 1 TAB PO (09:05)
[2022-03-23] MEDS: FOLIC ACID 1 MG TABLET PO (09:06)
--- NOTE | 2022-03-23 09:21 | PM.IMPN1 ---
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 No intraluminal filling defect or critical stenosis. - reviewed with Dr. 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 He was given Xarelto last night and this morning. He is actively withdrawing from alcohol, intermittently confused, + tachycardia and hypertension. He is not requiring supplemental oxygen. He received phenobarbital at 2:00 a.m., Ativan at 8:30 this morning. Called to see patient upon arrival to the hospital this morning given neuro status change upon awakening. Last known well was 2am, then patient slept throughout the night. At approximately 6am., nursing staff noted L-sided facial droop. Also noted to have L-sided upper extremity weakness, pronator drift. CT and CTA head obtained, exhibiting a left-sided distal cervical ICA pseudoaneurysm just below the skull base with short dissection flap. Reviewed the case with Dr. Schneider, neurologist at [facility]. After reviewing the images he felt that this was likely an incidental/chronic finding, in particular given that symptoms are ipsilateral to imaging abnormality. He recommends continuing daily aspirin, does not recommend acute transfer. We will also obtain a TTE today. Exam Narrative: Exam Narrative: GEN: Laying in bed, alert but confused HEENT: Normal external ears, EOMIs bilaterally, no scleral icterus CV: Sinus tachycardia R: Intermittent tachypnea, rate in the low 20s during my exam, no concerning wheezing or rales Neuro: Left facial droop noted, also noted to have pronator drift to the left upper extremity Psych: Confused but able to tell me that he has no pain, able to tell me the name of his girlfriend Const: Vital Signs, click to edit/add: Vital Signs - 24 hr 03/22/22 13:19 03/22/22 14:43 03/22/22 15:00 Temperature 97.7 F Pulse Rate Pulse Rate [Left A pical] Pulse Rate [Right Pulse Oximeter] 143 H 128 H 13 L Respiratory Rate 18 20 26 H Blood Pressure [Ri ght Arm] Blood Pressure [Ri ght Upper Arm] 120/85 146/106 H 153/98 H Pulse Oximetry 97 96 97 Oxygen Delivery Me thod Room Air Room Air Room Air 03/22/22 15:30 03/22/22 17:00 03/22/22 16:11 Temperature Pulse Rate Pulse Rate [Left A pical] Pulse Rate [Right Pulse Oximeter] 130 H 135 H Respiratory Rate 24 19 132 H Blood Pressure [Ri ght Arm] Blood Pressure [Ri ght Upper Arm] 141/93 H 130/87 Pulse Oximetry 97 96 97 Oxygen Delivery Me thod Room Air Room Air Room Air 03/22/22 16:30 03/22/22 18:30 03/22/22 19:00 Temperature Pulse Rate Pulse Rate [Left A pical] Pulse Rate [Right Pulse Oximeter] 127 H 140 H 142 H Respiratory Rate 22 21 30 H Blood Pressure [Ri ght Arm] Blood Pressure [Ri ght Upper Arm] 117/92 H 141/92 H 151/92 H Pulse Oximetry 95 96 95 Oxygen Delivery Me thod Room Air Room Air 03/22/22 17:30 03/22/22 18:11 11/29/22 20:00 Temperature 100.7 F H Pulse Rate Pulse Rate [Left A pical] 143 H Pulse Rate [Right Pulse Oximeter] 149 H 141 H Respiratory Rate 31 H 24 28 H Blood Pressure [Ri ght Arm] 129/102 H Blood Pressure [Ri ght Upper Arm] 144/100 H 140/89 H Pulse Oximetry 96 96 96 Oxygen Delivery Me thod Room Air Room Air Room Air 03/22/22 20:04 03/22/22 20:05 03/22/22 20:33 Temperature 100.7 F H 100.7 F H Pulse Rate Pulse Rate [Left A pical] 143 H 143 H Pulse Rate [Right Pulse Oximeter] Respiratory Rate 28 H 28 H Blood Pressure [Ri ght Arm] 129/102 H 129/102 H Blood Pressure [Ri ght Upper Arm] Pulse Oximetry 96 96 96 Oxygen Delivery Me thod Room Air Room Air 03/22/22 21:05 03/22/22 21:18 03/22/22 20:04 Temperature 100.5 F H Pulse Rate 147 H Pulse Rate [Left A pical] 149 H Pulse Rate [Right Pulse Oximeter] Respiratory Rate 28 H Blood Pressure [Ri ght Arm] 146/95 H Blood Pressure [Ri ght Upper Arm] Pulse Oximetry 96 96 Oxygen Delivery Me thod Room Air Room Air 03/22/22 22:00 03/22/22 23:00 03/22/22 23:00 Temperature 100.5 F H 101.9 F H Pulse Rate Pulse Rate [Left A pical] 153 H 153 H Pulse Rate [Right Pulse Oximeter] Respiratory Rate 22 20 20 Blood Pressure [Ri ght Arm] 146/95 H 142/81 H Blood Pressure [Ri ght Upper Arm] Pulse Oximetry 96 93 Oxygen Delivery Me thod Room Air Room Air 03/22/22 23:00 03/23/22 00:00 03/23/22 01:00 Temperature 101.4 F H Pulse Rate Pulse Rate [Left A pical] 133 H 136 H Pulse Rate [Right Pulse Oximeter] Respiratory Rate 20 20 20 Blood Pressure [Ri ght Arm] 135/80 Blood Pressure [Ri ght Upper Arm] Pulse Oximetry 93 93 96 Oxygen Delivery Me thod Room Air Room Air Room Air 03/23/22 01:21 03/23/22 02:00 03/23/22 02:35 Temperature 100.7 F H Pulse Rate Pulse Rate [Left A pical] 132 H 127 H 130 H Pulse Rate [Right Pulse Oximeter] Respiratory Rate 22 20 24 Blood Pressure [Ri ght Arm] 142/87 H Blood Pressure [Ri ght Upper Arm] Pulse Oximetry 95 96 93 Oxygen Delivery Me thod Room Air Room Air Room Air 03/22/22 23:00 03/22/22 23:00 03/23/22 03:06 Temperature 100.7 F H 100 F H Pulse Rate Pulse Rate [Left A pical] 124 H 126 H Pulse Rate [Right Pulse Oximeter] Respiratory Rate 24 20 Blood Pressure [Ri ght Arm] 142/87 H 132/75 Blood Pressure [Ri ght Upper Arm] Pulse Oximetry 92 93 92 Oxygen Delivery [place]v thod Room Air Room Air 03/23/22 04:00 03/23/22 06:00 03/23/22 08:00 Temperature 100.4 F H 99.3 F 100.2 F H Pulse Rate Pulse Rate [Left A pical] 118 H 124 H 127 H Pulse Rate [Right Pulse Oximeter] Respiratory Rate 22 24 22 Blood Pressure [Ri ght Arm] 125/71 148/96 H 157/101 H Blood Pressure [Ri ght Upper Arm] Pulse Oximetry 95 96 98 Oxygen Delivery [place]v thod Room Air Room Air Room Air Labs Labs: Laboratory Results - last 24 hr 03/22/22 03/22/22 03/22/22 13:43 14:05 14:15 WBC 4.78 RBC 4.21 L Hgb 13.1 L Hct 39.0 MCV 93 MCH 31 MCHC 34 RDW Coeff of Chantel 15.3 Plt Count 164 Neut % (Auto) 73.4 H Lymph % (Auto) 13.0 L [place] % (Auto) 12.6 H Eos % (Auto) 0.0 Baso % (Auto) 0.6 Neut # (Auto) 3.50 Lymph # (Auto) 0.60 L [place] # (Auto) 0.60 Eos # (Auto) 0.00 Baso # (Auto) 0.03 Abs Immat Gran (auto) 0.02 Imm/Tot Granulo (auto) 0.4 INR APTT D-Dimer Quant (PE/DVT) Sodium Potassium Chloride Carbon Dioxide BUN Creatinine Estimated Creat Clear Estimated GFR Glucose Lactate Calcium Ionized Calcium Rosenda Total Bilirubin Direct Bilirubin AST ALT Alkaline Phosphatase Total Protein Albumin Urine Color Urine Appearance Urine pH Ur Specific [place] Urine Protein Urine Glucose (UA) Urine Ketones Urine Blood Urine Nitrite Urine Bilirubin Urine Urobilinogen Ur Leukocyte Esterase Urine RBC Urine WBC Ur Squamous Epith Cells Urine Bacteria Urine Mucus Urine Opiates Screen Ur Oxycodone Screen Urine Methadone Screen Ur Propoxyphene Screen Ur Barbiturates Screen U Tricyclic Antidepress Ur Phencyclidine Scrn Ur Amphetamines Screen U Methamphetamines Scrn U Benzodiazepines Scrn Urine Cocaine Screen U Marijuana (THC) Screen Ur Drug Screen Comment Ethyl Alcohol SARS-CoV-2 (PCR) Negative SARS-CoV-2 Influenza Type A (PCR) Negative PCR FLU A Influenza Type B (PCR) Negative PCR FLU B RSV (PCR) Negative PCR RSV POC Troponin I 0.02 03/22/22 03/22/22 03/22/22 14:15 14:15 14:15 WBC RBC Hgb Hct MCV MCH MCHC RDW Coeff of Chantel Plt Count Neut % (Auto) Lymph % (Auto) [place] % (Auto) Eos % (Auto) Baso % (Auto) Neut # (Auto) Lymph # (Auto) [place] # (Auto) Eos # (Auto) Baso # (Auto) Abs Immat Gran (auto) Imm/Tot Granulo (auto) INR 0.94 APTT 27 D-Dimer Quant (PE/DVT) 3.48 H Sodium 142 Potassium 4.0 Chloride 101 Carbon Dioxide 18 L BUN 16 Creatinine 1.1 Estimated Creat Clear 69.95 Estimated GFR 77 Glucose 126 H Lactate Calcium 7.8 L Ionized Calcium Rosenda Total Bilirubin 1.0 Direct Bilirubin 0.4 AST 206 H ALT 51 H Alkaline Phosphatase 103 Total Protein 8.0 Albumin 4.6 Urine Color Urine Appearance Urine pH Ur Specific [place] Urine Protein Urine Glucose (UA) Urine Ketones Urine Blood Urine Nitrite Urine Bilirubin Urine Urobilinogen Ur Leukocyte Esterase Urine RBC Urine WBC Ur Squamous Epith Cells Urine Bacteria Urine Mucus Urine Opiates Screen Ur Oxycodone Screen Urine Methadone Screen Ur Propoxyphene Screen Ur Barbiturates Screen U Tricyclic Antidepress Ur Phencyclidine Scrn Ur Amphetamines Screen U Methamphetamines Scrn U Benzodiazepines Scrn Urine Cocaine Screen U Marijuana (THC) Screen Ur Drug Screen Comment Ethyl Alcohol 0.23 H SARS-CoV-2 (PCR) Influenza Type A (PCR) Influenza Type B (PCR) RSV (PCR) POC Troponin I 03/22/22 03/22/22 03/22/22 15:25 16:01 20:00 WBC RBC Hgb Hct MCV MCH MCHC RDW Coeff of Chantel Plt Count Neut % (Auto) Lymph % (Auto) [place] % (Auto) Eos % (Auto) Baso % (Auto) Neut # (Auto) Lymph # (Auto) [place] # (Auto) Eos # (Auto) Baso # (Auto) Abs Immat Gran (auto) Imm/Tot Granulo (auto) INR APTT D-Dimer Quant (PE/DVT) Sodium Potassium Chloride Carbon Dioxide BUN Creatinine Estimated Creat Clear Estimated GFR Glucose Lactate Calcium Ionized Calcium Rosenda Total Bilirubin Direct Bilirubin AST ALT Alkaline Phosphatase Total Protein Albumin Urine Color Yellow Urine Appearance Clear Urine pH 5.5 Ur Specific [place] 1.025 Urine Protein 3+ A Urine Glucose (UA) Negative Urine Ketones 1+ A Urine Blood 1+ A Urine Nitrite Negative Urine Bilirubin 2+ A Urine Urobilinogen 1.0 Ur Leukocyte Esterase Negative Urine RBC 10-25 A Urine WBC 0-2 Ur Squamous Epith Cells Few Urine Bacteria None Urine Mucus Few A Urine Opiates Screen Negative Ur Oxycodone Screen Negative Urine Methadone Screen Negative Ur Propoxyphene Screen Negative Ur Barbiturates Screen Negative U Tricyclic Antidepress Negative Ur Phencyclidine Scrn Negative Ur Amphetamines Screen Negative U Methamphetamines Scrn Negative U Benzodiazepines Scrn POSITIVE A* Urine Cocaine Screen Negative U Marijuana (THC) Screen Negative Ur Drug Screen Comment See Note Ethyl Alcohol SARS-CoV-2 (PCR) Influenza Type A (PCR) Influenza Type B (PCR) RSV (PCR) POC Troponin I 0.03 03/23/22 03/23/22 03/23/22 01:15 07:37 07:37 WBC 4.51 RBC 3.25 L Hgb 10.3 L Hct 30.5 L MCV 94 MCH 32 MCHC 34 RDW Coeff of Chantel 15.7 H Plt Count 104 L Neut % (Auto) 70.8 Lymph % (Auto) 16.0 L [place] % (Auto) 11.5 H Eos % (Auto) 0.4 Baso % (Auto) 0.9 Neut # (Auto) 3.19 Lymph # (Auto) 0.70 L [place] # (Auto) 0.50 Eos # (Auto) 0.02 Baso # (Auto) 0.04 Abs Immat Gran (auto) 0.02 Imm/Tot Granulo (auto) 0.4 INR APTT D-Dimer Quant (PE/DVT) Sodium 136 Potassium 3.4 L Chloride 101 Carbon Dioxide 24 BUN 11 Creatinine 0.9 Estimated Creat Clear 85.50 Estimated GFR 98 Glucose 108 Lactate 1.2 Calcium 6.6 L Ionized Calcium Rosenda Total Bilirubin 1.9 H Direct Bilirubin AST 157 H ALT 38 Alkaline Phosphatase 71 Total Protein 6.4 Albumin 3.6 Urine Color Urine Appearance Urine pH Ur Specific [place] Urine Protein Urine Glucose (UA) Urine Ketones Urine Blood Urine Nitrite Urine Bilirubin Urine Urobilinogen Ur Leukocyte Esterase Urine RBC Urine WBC Ur Squamous Epith Cells Urine Bacteria Urine Mucus Urine Opiates Screen Ur Oxycodone Screen Urine Methadone Screen Ur Propoxyphene Screen Ur Barbiturates Screen U Tricyclic Antidepress Ur Phencyclidine Scrn Ur Amphetamines Screen U Methamphetamines Scrn U Benzodiazepines Scrn Urine Cocaine Screen U Marijuana (THC) Screen Ur Drug Screen Comment Ethyl Alcohol SARS-CoV-2 (PCR) Influenza Type A (PCR) Influenza Type B (PCR) RSV (PCR) POC Troponin I 03/23/22 07:37 WBC RBC Hgb Hct MCV MCH MCHC RDW Coeff of Chantel Plt Count Neut % (Auto) Lymph % (Auto) [place] % (Auto) Eos % (Auto) Baso % (Auto) Neut # (Auto) Lymph # (Auto) [place] # (Auto) Eos # (Auto) Baso # (Auto) Abs Immat Gran (auto) Imm/Tot Granulo (auto) INR APTT D-Dimer Quant (PE/DVT) Sodium Potassium Chloride Carbon Dioxide BUN Creatinine Estimated Creat Clear Estimated GFR Glucose Lactate Calcium Ionized Calcium Rosenda 0.84 L Total Bilirubin Direct Bilirubin AST ALT Alkaline Phosphatase Total Protein Albumin Urine Color Urine Appearance Urine pH Ur Specific [place] Urine Protein Urine Glucose (UA) Urine Ketones Urine Blood Urine Nitrite Urine Bilirubin Urine Urobilinogen Ur Leukocyte Esterase Urine RBC Urine WBC Ur Squamous Epith Cells Urine Bacteria Urine Mucus Urine Opiates Screen Ur Oxycodone Screen Urine Methadone Screen Ur Propoxyphene Screen Ur Barbiturates Screen U Tricyclic Antidepress Ur Phencyclidine Scrn Ur Amphetamines Screen U Methamphetamines Scrn U Benzodiazepines Scrn Urine Cocaine Screen U Marijuana (THC) Screen Ur Drug Screen Comment Ethyl Alcohol SARS-CoV-2 (PCR) Influenza Type A (PCR) Influenza Type B (PCR) RSV (PCR) POC Troponin I
--- NOTE | 2022-03-23 10:44 | REH.PT ---
PT/OT held today per MD.
[2022-03-23] MEDS: ACETAMINOPHEN 325 MG TABLET 650 MG PO (11:34)
[2022-03-23 13:27] LABS: Lactate* 1.2 mmol/L (0.5-1.9)
[2022-03-23 13:41] LABS: Lipase* 1101 U/L (23-300)
[2022-03-23 13:59] LABS: Procalcitonin* 0.78 ng/mL (<0.50)
[2022-03-23] MEDS: SODIUM CHLORIDE 0.9 % (FLUSH) 10 ML SYRINGE 5 ML IVF ×3 (13:59→18:24)
[2022-03-23] MEDS: 0.9 % SODIUM CHLORIDE 1000 ml 1,000 ML IV (14:00)
[2022-03-23] MEDS: PHENobarbitaL 260 MG in 0.9 % SODIUM CHLORIDE 100 ml 100 ML 204 MG IVPB (15:43)
--- NOTE | 2022-03-23 15:56 | PC.NURSE ---
Pt CIWA scores hourly throughout the day, see charting and MAR for Ativan administration per CIWA protocol. Pt sleepy but arousable. Is able to answer place, month, birthday. Denies pain. Swallows pills with water, no issues with swallowing. Denies appetite, no food, only water throughout shift. Tillman patent and draining. Incontinent of bowel x1. CT of head/neck complete, see Dr. Gooden note. ECHO currently in process.
[2022-03-23] MEDS: LORazepam 2 MG/ML inj 1 MG IV (16:09)
--- NOTE | 2022-03-23 16:15 | RESP.RT ---
Monitoring pt's respiratory status and airway protections throughout the day.
--- NOTE | 2022-03-23 16:16 | CRLHL7_ITS ---
For Patients: As a result of the Century Cures Act, medical imaging exams and procedure reports are released immediately into your electronic medical record. You may view this report before your referring provider. If you have questions, please contact your health care provider. HISTORY: Evaluate for pancreatitis. COMPARISON: None. TECHNIQUE: Axial images were obtained the abdomen and pelvis following 94 cc of Isovue-370 intravenous contrast. FINDINGS: There is motion artifact in the lower lungs. Hepatic steatosis. The pancreas demonstrates normal enhancement. No biliary dilation. Increased attenuation of the gallbladder. No visible gallstones. Multiple renal cysts. No hydronephrosis. The spleen is normal in size. The bowel is normal in caliber. No lymphadenopathy. There is mild perirenal stranding. No abnormal fluid collection. Tillman catheter within the bladder. No lymphadenopathy. Degenerative changes in the spine. Motion artifact present which degrades the images. Impression : No specific findings for pancreatitis. Please note that all CT scans at this facility use dose modulation, iterative reconstruction, and/or weight-based dosing when appropriate to reduce radiation dose to as low as reasonably achievable. Dictated by Dana Larson MD @ 03/23/2022 7:51:49 PM (Electronically Signed)
[2022-03-23] MEDS: 0.9 % SODIUM CHLORIDE 1000 ml 1,000 ML 500 ML IV (16:38)
[2022-03-23 17:02] LABS: Ionized Calcium* 0.85 mmol/L (1.11-1.30)
[2022-03-23 17:48] LABS: Troponin I* 0.41 ng/mL (0.01-0.04)
--- NOTE | 2022-03-23 18:56 | CRLHL7_ITS ---
For Patients: As a result of the Century Cures Act, medical imaging exams and procedure reports are released immediately into your electronic medical record. You may view this report before your referring provider. If you have questions, please contact your health care provider. INDICATION: tachypnea, resp failure, suspect pulmonary edema TECHNIQUE: Chest 1 views. COMPARISON: Chest x-ray 03/22/2022 FINDINGS: Cardiomegaly with central vascular congestion interstitial prominence which is new and most compatible with pulmonary edema. Bibasilar atelectasis. No evidence of effusion or pneumothorax. No acute osseous abnormality. IMPRESSION: Cardiomegaly with central vascular congestion interstitial prominence which is new and most compatible with pulmonary edema. Dictated by Codey Lee MD @ 03/23/2022 7:35:45 PM (Electronically Signed)
[2022-03-23] MEDS: PERFLUTREN LIPID MICROSPHERES 2 ML VIAL IV (19:13)
[2022-03-23] MEDS: FUROSEMIDE 10 MG/ML inj 40 MG IVP (19:52)
[2022-03-23 19:57] LABS: Troponin I* 0.34 ng/mL (0.01-0.04)
[2022-03-23] MEDS: ATORVASTATIN CALCIUM 40 MG TABLET PO (20:09)
[2022-03-23] MEDS: ASPIRIN 81 MG TAB.CHEW 324 MG PO (21:36)
[2022-03-23] MEDS: 0.9 % SODIUM CHLORIDE 250 ml IV (22:10)
--- NOTE | 2022-03-23 22:20 | PC.NURSE ---
Shift Note [id number]: Pt confused. Will respond with touch and calling of his name, giving short responses that are mostly appropriate. Pt did require PO medications to be crushed and placed in applesauce. Denies pain. He has been hypotensive and tachycardic, MD aware. LS initially clear/diminished throughout. Around 1800 commercial insurance underwriter observed pt with increased WOB, desaturations to 86% on RA, and bibasilar crackles on auscultation, RR=40's. Pt placed on 4L/O2 via NC and Lasix given per MD. Abd/pelvic CT done, see report for details. CIWA's continue to score anywhere from 9-17, Ativan given PRN. EKG per MD= sinus tachycardia, Trop found to be 0.41. Repeat labs trending down. Pt placed on Bipap per MD order, he is tolerating it at this time. Oral cares thoroughly done with NARs. Medium incontinent BM.
--- NOTE | 2022-03-23 23:56 | P.IMPN_ITS ---
Progress Note: A&P Assessment and plan (1) Acute hypoxemic respiratory failure: Problem details: multifactorial: PE and pulmonary edema Status: Acute Assessment and Plan: May have thrown another PE causing hypotensive change and now in respiratory failure as well. I spoke with Dr. Aniyah Garcia, stripper apprentice at [place] around 2100. She recommended transfer for respiratory failure, PE with hypotension. We spoke with [facility], [facility], [facility], [facility], [facility], [facility], [facility], [facility] and [facility] and there were no beds available at any of these facilities. (2) Pulmonary edema with congestive heart failure with reduced LV function: Status: Acute Assessment and Plan: Diurese as blood pressure will allow. Started BiPAP. He is respoding well to BiPAP and diuresis. About 1 L urine out so far and respirations have come down from 45 to 28. Unable to manage mechanical ventillation at this facility. Continue to look for bed at an ICU in case patient should need intubation/pressors. (3) Hypotension: Status: Acute Assessment and Plan: May have thrown another PE causing hypotension vs NH. EKG showed sinus tachycardia. LV function reduced, unclear if this is old or new. Hypervolemic and in pulm edema, so avoid extra fluids. May need to start levophed if persistently hypotensive. (4) Abnormal echocardiogram: Problem details: mod-severely reduced LV systolic function Status: Acute Assessment and Plan: Await final read. Consult with cardiology tomorrow if unable to transfer. (5) Pulmonary embolism: Problem details: - no acute hypoxia - continue Xarelto Status: Acute (6) Elevated troponin: Problem details: Peak 0.41 Status: Acute Assessment and Plan: Gave aspirin 324 mg. Continue atorvastatin. Will need to hold antihypertensives including metoprolol due to hypotension. (7) Fever: Problem details: - empirically started on Vanco and Zosyn 03/22 - blood cultures NGTD - lipase mildly elevated, no pancreatitis seen on CT abd - No source identified. 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 No intraluminal filling defect or critical stenosis. - reviewed with Dr. Schneider of [facility], who felt that this was likely an incidental/chronic finding, in particular given ipsilateral symptoms - continue neuro checks and aspirin - MRI with any worsening symptoms or deficits; MRI will be difficult given patient's current withdrawal symptoms Status: Acute (9) Alcohol withdrawal delirium, acute, hyperactive: Problem details: - continue CIWA protocol and treatment with phenobarbital and Ativan - last drink 03/21 @ 8pm Status: Acute (10) Hypocalcemia: Status: Acute Assessment and Plan: Continue IV replacement. Check magnesium level. (11) Sinus tachycardia: Status: Acute Assessment and Plan: Improving now on bipap and CIWA. Subjective Time Seen by Provider: 17:00 Date Seen: 03/23/22 Interval history: This afternoon/evening I have been in Kayden's room multiple times to help his nurses manage pulmonary edema, hypotension, alcohol withdrawal, elevated troponin, etc. Kayden is sleepy but does wake to take pills and has no complaints. I spoke with ehospitalist (Helio) doctor at 23:50 to give signout and they will do cross cover on this patient overnight. Exam Narrative: Exam Narrative: General: Sleepy, arouses to name, confused. Diaphoretic at times. No jaundice. Cardiovascular: Tachycardic, regular. No murmurs, gallops, or rubs. Respiratory: Tachypneic, no wheezes. Abdomen: Bowel sounds present. Soft, nondistended, nontender. Extremities: No mottling. Const: Vital Signs, click to edit/add: Vital Signs - 24 hr 03/23/22 00:00 03/23/22 01:00 03/23/22 01:21 Temperature 101.4 F H Pulse Rate Pulse Rate [Left A pical] 133 H 136 H 132 H Respiratory Rate 20 20 22 Blood Pressure [Ri ght Arm] 135/80 Pulse Oximetry 93 96 95 Oxygen Delivery Me thod Room Air Room Air Room Air Oxygen Flow Rate Fraction of Inspir ed Oxygen 03/23/22 02:00 03/23/22 02:35 03/23/22 03:06 Temperature 100.7 F H 100 F H Pulse Rate Pulse Rate [Left A pical] 127 H 130 H 126 H Respiratory Rate 20 24 20 Blood Pressure [Ri ght Arm] 142/87 H 132/75 Pulse Oximetry 96 93 92 Oxygen Delivery Me thod Room Air Room Air Room Air Oxygen Flow Rate Fraction of Inspir ed Oxygen 03/23/22 04:00 03/23/22 06:00 03/23/22 08:00 Temperature 100.4 F H 99.3 F 100.2 F H Pulse Rate Pulse Rate [Left A pical] 118 H 124 H 127 H Respiratory Rate 22 24 22 Blood Pressure [Ri ght Arm] 125/71 148/96 H 157/101 H Pulse Oximetry 95 96 98 Oxygen Delivery Me thod Room Air Room Air Room Air Oxygen Flow Rate Fraction of Inspir ed Oxygen 03/23/22 09:00 03/23/22 07:00 03/23/22 07:00 Temperature 100.1 F H Pulse Rate Pulse Rate [Left A pical] 138 H 127 H Respiratory Rate 22 22 22 Blood Pressure [Ri ght Arm] 145/108 H Pulse Oximetry 97 98 Oxygen Delivery Me thod Room Air Room Air Oxygen Flow Rate Fraction of Inspir ed Oxygen 03/23/22 10:00 03/23/22 07:00 03/23/22 07:40 Temperature 100.0 F H Pulse Rate 122 H Pulse Rate [Left A pical] 116 H Respiratory Rate 28 H Blood Pressure [Ri ght Arm] 123/84 Pulse Oximetry 95 98 Oxygen Delivery Me thod Room Air Oxygen Flow Rate Fraction of Inspir ed Oxygen 03/23/22 11:34 03/23/22 11:00 03/23/22 11:00 Temperature 100.5 F H 100.5 F H 100.5 F H Pulse Rate Pulse Rate [Left A pical] 126 H 126 H Respiratory Rate 28 H 28 H Blood Pressure [Ri ght Arm] 124/88 124/88 Pulse Oximetry 94 94 Oxygen Delivery Me thod Room Air Room Air Oxygen Flow Rate Fraction of Inspir ed Oxygen 03/23/22 12:00 03/23/22 12:56 03/23/22 13:00 Temperature 100.1 F H 99.4 F 99.4 F Pulse Rate Pulse Rate [Left A pical] 124 H 112 H Respiratory Rate 36 H 32 H Blood Pressure [Ri ght Arm] 117/78 104/71 Pulse Oximetry 95 94 Oxygen Delivery Me thod Room Air Room Air Oxygen Flow Rate Fraction of Inspir ed Oxygen 03/23/22 14:00 03/23/22 16:00 03/23/22 15:00 Temperature 98.6 F 97.7 F Pulse Rate Pulse Rate [Left A pical] 103 H 115 H Respiratory Rate 28 H 30 H Blood Pressure [Ri ght Arm] 96/66 101/74 Pulse Oximetry 95 94 97 Oxygen Delivery Me thod Room Air Room Air Oxygen Flow Rate Fraction of Inspir ed Oxygen 03/23/22 15:00 03/23/22 15:00 03/23/22 15:00 Temperature 97.7 F Pulse Rate Pulse Rate [Left A pical] 97 97 Respiratory Rate 30 H 30 H 30 H Blood Pressure [Ri ght Arm] 92/69 Pulse Oximetry 97 97 Oxygen Delivery Me thod Nasal Cannula Nasal Cannula Oxygen Flow Rate 1 1 Fraction of Inspir ed Oxygen 03/23/22 15:00 03/23/22 17:00 03/23/22 18:00 Temperature 97.7 F 99.2 F Pulse Rate 111 H Pulse Rate [Left A pical] 111 H 122 H Respiratory Rate 30 H 30 H Blood Pressure [Ri ght Arm] 96/68 129/88 Pulse Oximetry 96 90 Oxygen Delivery Me thod Room Air Nasal Cannula Oxygen Flow Rate 1 Fraction of Inspir ed Oxygen 03/23/22 19:00 03/23/22 20:00 03/23/22 21:00 Temperature 98.5 F 98.7 F 98.9 F Pulse Rate Pulse Rate [Left A pical] 131 H 118 H 107 H Respiratory Rate 38 H 42 H 35 H Blood Pressure [Ri ght Arm] 117/76 121/92 H 95/69 Pulse Oximetry 92 90 96 Oxygen Delivery Me thod Nasal Cannula Nasal Cannula BiPAP Oxygen Flow Rate 4 4 Fraction of Inspir ed Oxygen 45 03/23/22 22:00 03/23/22 23:47 03/23/22 23:49 Temperature 98.7 F 97.6 F 97.6 F Pulse Rate Pulse Rate [Left A pical] 122 H 90 90 Respiratory Rate 36 H 28 H 28 H Blood Pressure [Ri ght Arm] 123/80 92/69 92/69 Pulse Oximetry 96 96 96 Oxygen Delivery Me thod BiPAP BiPAP BiPAP Oxygen Flow Rate Fraction of Inspir ed Oxygen 45 Documenting provider has reviewed patient's vital signs: yes Labs Labs: Laboratory Results - last 24 hr 03/23/22 03/23/22 03/23/22 01:15 07:37 07:37 WBC 4.51 RBC 3.25 L Hgb 10.3 L Hct 30.5 L MCV 94 MCH 32 MCHC 34 RDW Coeff of Chantel 15.7 H Plt Count 104 L Neut % (Auto) 70.8 Lymph % (Auto) 16.0 L [place] % (Auto) 11.5 H Eos % (Auto) 0.4 Baso % (Auto) 0.9 Neut # (Auto) 3.19 Lymph # (Auto) 0.70 L [place] # (Auto) 0.50 Eos # (Auto) 0.02 Baso # (Auto) 0.04 Abs Immat Gran (auto) 0.02 Imm/Tot Granulo (auto) 0.4 Sodium 136 Potassium 3.4 L Chloride 101 Carbon Dioxide 24 BUN 11 Creatinine 0.9 Estimated Creat Clear 85.50 Estimated GFR 98 Glucose 108 Lactate 1.2 Calcium 6.6 L Ionized Calcium [place] Total Bilirubin 1.9 H AST 157 H ALT 38 Alkaline Phosphatase 71 Troponin I Total Protein 6.4 Albumin 3.6 Lipase 1101 H Procalcitonin 0.78 H 03/23/22 03/23/22 03/23/22 07:37 16:58 16:58 WBC RBC Hgb Hct MCV MCH MCHC RDW Coeff of Chantel Plt Count Neut % (Auto) Lymph % (Auto) [place] % (Auto) Eos % (Auto) Baso % (Auto) Neut # (Auto) Lymph # (Auto) [place] # (Auto) Eos # (Auto) Baso # (Auto) Abs Immat Gran (auto) Imm/Tot Granulo (auto) Sodium Potassium Chloride Carbon Dioxide BUN Creatinine Estimated Creat Clear Estimated GFR Glucose Lactate 1.2 Calcium Ionized Calcium [place] 0.84 L 0.85 L Total Bilirubin AST ALT Alkaline Phosphatase Troponin I 0.41 H* Total Protein Albumin Lipase Procalcitonin 03/23/22 19:18 WBC RBC Hgb Hct MCV MCH MCHC RDW Coeff of Chantel Plt Count Neut % (Auto) Lymph % (Auto) [place] % (Auto) Eos % (Auto) Baso % (Auto) Neut # (Auto) Lymph # (Auto) [place] # (Auto) Eos # (Auto) Baso # (Auto) Abs Immat Gran (auto) Imm/Tot Granulo (auto) Sodium Potassium Chloride Carbon Dioxide BUN Creatinine Estimated Creat Clear Estimated GFR Glucose Lactate Calcium Ionized Calcium [place] Total Bilirubin AST ALT Alkaline Phosphatase Troponin I 0.34 H* Total Protein Albumin Lipase Procalcitonin
[2022-03-24] VITALS (14 sets, daily range): BP systolic 83–112; BP diastolic 58–95; PULSE 77–96; RESP 20–30; TEMP 36.3–36.9; O2SAT 95–100
[2022-03-24] MEDS: PIPERACILLIN/TAZOBACTAM 3.375 GM in 0.9 % SODIUM CHLORIDE Mini-bag 100 ML IVPB ×2 (01:56→08:20)
--- NOTE | 2022-03-24 02:07 | PM.IMPN1 ---
Progress Note: A&P Assessment and plan (1) Pulmonary edema with congestive heart failure with reduced LV function: Status: Acute (2) Acute hypoxemic respiratory failure: Problem details: multifactorial: PE and pulmonary edema Status: Acute (3) Alcohol withdrawal delirium: Status: Acute (4) Elevated troponin: Problem details: Peak 0.41 Status: Acute (5) Hypotension: Status: Acute Plan E hospitalist collaboration: Nursing called and bp 95/69, HR 84. Earlier I had discussed with Dr. Westfall. Patient on bipap and awaiting transfer and may require pressor support Levophed. Had pulm edema and IV diuresis today. Will give 1 time dose Albumin recognizing cautious with fluid balance, if bp not improve will need to start Levophed and peripheral IV short term. Subjective Date Seen: 03/24/22 Exam Const: Vital Signs, click to edit/add: Vital Signs - 24 hr 03/23/22 02:35 03/23/22 03:06 03/23/22 04:00 Temperature 100 F H 100.4 F H Pulse Rate Pulse Rate [Left A pical] 130 H 126 H 118 H Respiratory Rate 24 20 22 Blood Pressure [Ri ght Arm] 132/75 125/71 Pulse Oximetry 93 92 95 Oxygen Delivery Me thod Room Air Room Air Room Air Oxygen Flow Rate Fraction of Inspir ed Oxygen 03/23/22 06:00 03/23/22 08:00 03/23/22 09:00 Temperature 99.3 F 100.2 F H 100.1 F H Pulse Rate Pulse Rate [Left A pical] 124 H 127 H 138 H Respiratory Rate 24 22 22 Blood Pressure [Ri ght Arm] 148/96 H 157/101 H 145/108 H Pulse Oximetry 96 98 97 Oxygen Delivery Me thod Room Air Room Air Room Air Oxygen Flow Rate Fraction of Inspir ed Oxygen 03/23/22 07:00 03/23/22 07:00 03/23/22 10:00 Temperature 100.0 F H Pulse Rate Pulse Rate [Left A pical] 127 H 116 H Respiratory Rate 22 22 28 H Blood Pressure [Ri ght Arm] 123/84 Pulse Oximetry 98 95 Oxygen Delivery Me thod Room Air Room Air Oxygen Flow Rate Fraction of Inspir ed Oxygen 03/23/22 07:00 03/23/22 07:40 03/23/22 11:34 Temperature 100.5 F H Pulse Rate 122 H Pulse Rate [Left A pical] Respiratory Rate Blood Pressure [Ri ght Arm] Pulse Oximetry 98 Oxygen Delivery Me thod Oxygen Flow Rate Fraction of Inspir ed Oxygen 03/23/22 11:00 03/23/22 11:00 03/23/22 12:00 Temperature 100.5 F H 100.5 F H 100.1 F H Pulse Rate Pulse Rate [Left A pical] 126 H 126 H 124 H Respiratory Rate 28 H 28 H 36 H Blood Pressure [Ri ght Arm] 124/88 124/88 117/78 Pulse Oximetry 94 94 95 Oxygen Delivery Me thod Room Air Room Air Room Air Oxygen Flow Rate Fraction of Inspir ed Oxygen 03/23/22 12:56 03/23/22 13:00 03/23/22 14:00 Temperature 99.4 F 99.4 F 98.6 F Pulse Rate Pulse Rate [Left A pical] 112 H 103 H Respiratory Rate 32 H 28 H Blood Pressure [Ri ght Arm] 104/71 96/66 Pulse Oximetry 94 95 Oxygen Delivery Me thod Room Air Room Air Oxygen Flow Rate Fraction of Inspir ed Oxygen 03/23/22 16:00 03/23/22 15:00 03/23/22 15:00 Temperature 97.7 F Pulse Rate Pulse Rate [Left A pical] 115 H 97 Respiratory Rate 30 H 30 H Blood Pressure [Ri ght Arm] 101/74 Pulse Oximetry 94 97 Oxygen Delivery Me thod Room Air Oxygen Flow Rate Fraction of Inspir ed Oxygen 03/23/22 15:00 03/23/22 15:00 03/23/22 15:00 Temperature 97.7 F Pulse Rate 111 H Pulse Rate [Left A pical] 97 Respiratory Rate 30 H 30 H Blood Pressure [Ri ght Arm] 92/69 Pulse Oximetry 97 97 Oxygen Delivery Me thod Nasal Cannula Nasal Cannula Oxygen Flow Rate 1 1 Fraction of Inspir ed Oxygen 03/23/22 17:00 03/23/22 18:00 03/23/22 19:00 Temperature 97.7 F 99.2 F 98.5 F Pulse Rate Pulse Rate [Left A pical] 111 H 122 H 131 H Respiratory Rate 30 H 30 H 38 H Blood Pressure [Ri ght Arm] 96/68 129/88 117/76 Pulse Oximetry 96 90 92 Oxygen Delivery Me thod Room Air Nasal Cannula Nasal Cannula Oxygen Flow Rate 1 4 Fraction of Inspir ed Oxygen 03/23/22 20:00 03/23/22 21:00 03/23/22 22:00 Temperature 98.7 F 98.9 F 98.7 F Pulse Rate Pulse Rate [Left A pical] 118 H 107 H 122 H Respiratory Rate 42 H 35 H 36 H Blood Pressure [Ri ght Arm] 121/92 H 95/69 123/80 Pulse Oximetry 90 96 96 Oxygen Delivery Me thod Nasal Cannula BiPAP BiPAP Oxygen Flow Rate 4 Fraction of Inspir ed Oxygen 45 45 03/23/22 23:47 03/23/22 23:49 03/24/22 00:00 Temperature 97.6 F 97.6 F 97.6 F Pulse Rate Pulse Rate [Left A pical] 90 90 89 Respiratory Rate 28 H 28 H 23 Blood Pressure [Ri ght Arm] 92/69 92/69 91/68 Pulse Oximetry 96 96 95 Oxygen Delivery Me thod BiPAP BiPAP BiPAP Oxygen Flow Rate Fraction of Inspir ed Oxygen 03/23/22 23:30 03/23/22 23:30 03/23/22 23:30 Temperature Pulse Rate 88 Pulse Rate [Left A pical] 89 Respiratory Rate 23 Blood Pressure [Ri ght Arm] Pulse Oximetry 95 Oxygen Delivery Me thod Oxygen Flow Rate Fraction of Inspir ed Oxygen 03/23/22 23:30 03/24/22 01:00 03/24/22 02:00 Temperature 97.6 F 97.4 F L Pulse Rate Pulse Rate [Left A pical] 84 89 Respiratory Rate 23 30 H 21 Blood Pressure [Ri ght Arm] 95/79 90/66 Pulse Oximetry 96 99 98 Oxygen Delivery Me thod BiPAP BiPAP BiPAP Oxygen Flow Rate Fraction of Inspir ed Oxygen Labs Labs: Laboratory Results - last 24 hr 03/23/22 03/23/22 03/23/22 07:37 07:37 07:37 WBC 4.51 RBC 3.25 L Hgb 10.3 L Hct 30.5 L MCV 94 MCH 32 MCHC 34 RDW Coeff of Chantel 15.7 H Plt Count 104 L Neut % (Auto) 70.8 Lymph % (Auto) 16.0 L [place] % (Auto) 11.5 H Eos % (Auto) 0.4 Baso % (Auto) 0.9 Neut # (Auto) 3.19 Lymph # (Auto) 0.70 L [place] # (Auto) 0.50 Eos # (Auto) 0.02 Baso # (Auto) 0.04 Abs Immat Gran (auto) 0.02 Imm/Tot Granulo (auto) 0.4 Sodium 136 Potassium 3.4 L Chloride 101 Carbon Dioxide 24 BUN 11 Creatinine 0.9 Estimated Creat Clear 85.50 Estimated GFR 98 Glucose 108 Lactate 1.2 Calcium 6.6 L Ionized Calcium [place] 0.84 L Total Bilirubin 1.9 H AST 157 H ALT 38 Alkaline Phosphatase 71 Troponin I Total Protein 6.4 Albumin 3.6 Lipase 1101 H Procalcitonin 0.78 H 03/23/22 03/23/22 03/23/22 16:58 16:58 19:18 WBC RBC Hgb Hct MCV MCH MCHC RDW Coeff of Chantel Plt Count Neut % (Auto) Lymph % (Auto) [place] % (Auto) Eos % (Auto) Baso % (Auto) Neut # (Auto) Lymph # (Auto) [place] # (Auto) Eos # (Auto) Baso # (Auto) Abs Immat Gran (auto) Imm/Tot Granulo (auto) Sodium Potassium Chloride Carbon Dioxide BUN Creatinine Estimated Creat Clear Estimated GFR Glucose Lactate Calcium Ionized Calcium [place] 0.85 L Total Bilirubin AST ALT Alkaline Phosphatase Troponin I 0.41 H* 0.34 H* Total Protein Albumin Lipase Procalcitonin
[2022-03-24] MEDS: ALBUMIN HUMAN 25% 100 ML VIAL IV (02:41)
[2022-03-24] MEDS: PHENobarbitaL 260 MG in 0.9 % SODIUM CHLORIDE 100 ml 100 ML 204 MG IVPB (03:24)
--- NOTE | 2022-03-24 06:24 | PC.NURSE ---
Shift note: CIWA score is 8 throughout this shift. Pt is resting in bed, with no changes in LOC. BPs in 90ies, with MAP in 70ies. Pt tolerating BiPAP with no increase in agitation level, sats 95-99%, afebrile, HR 70-80ies. Pt opens his eyes to name and touch, but falls back to sleep right away. He responds yes and no, but does not speak to nurse. He understands simple directions such as raise your arm, squeeze my fingers..., etc., and even able partially preform the task.
[2022-03-24 06:36] LABS: Ionized Calcium* 0.86 mmol/L (1.11-1.30)
[2022-03-24 06:52] LABS: Basophils Absolute Auto 0.04 K/uL (0.00-0.30); Basophils Percent Auto 0.7 % (0.0-3.0); Eosinophils Absolute Auto 0.13 K/uL (0.00-0.50); Eosinophils Percent Auto 2.2 % (0.0-7.0); Hematocrit 29.5 % (37.0-53.0); Hemoglobin* 9.7 gm/dL (13.5-17.5); Immature Granulocytes Abs Auto 0.02 K/uL (0.00-0.30); Immature Granulocytes Pct Auto 0.3 %; Lymphocytes Percent Auto 13.1 % (20-44); Mean Corpuscular HGB Conc 33 gm/dL (32-36); Mean Corpuscular Hemoglobin 32 pg (26-34); Mean Corpuscular Volume 96 fL (80-100); Monocytes Percent Auto 6.6 % (0.0-11.0); Neutrophils Percent Auto 77.1 % (42.0-72.0); Platelet Count* 101 K/uL (140-440); RDW Coefficient of Variation % 15.3 % (11.5-15.5); Red Blood Count 3.07 m/uL (4.30-5.90); White Blood Count* 6.04 K/uL (4.50-11.00)
[2022-03-24 06:55] LABS: Slide Review Reflex No
[2022-03-24 07:06] LABS: INR 1.22 (0.91-1.10); Prothrombin Time 16.2 Seconds
--- NOTE | 2022-03-24 07:12 | P.IMPN_ITS ---
Progress Note: A&P Assessment and plan (1) Acute hypoxemic respiratory failure: Problem details: - multifactorial: PE and pulmonary edema, in addition to ETOH withdrawal encephalopathy Status: Acute (2) Hypotension: Problem details: - new finding as of 03/23/22 afternoon; presumably infectious in nature, could also be related to intracranial process, CHF - map has remained above 65, no pressors have been required at this time Status: Acute (3) Alcohol withdrawal delirium: Problem details: - on admission, patient states last drink was 8pm on 03/21/22 Status: Acute (4) Dissection of cervical artery: Problem details: - per 03/23 imaging: 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 No intraluminal filling defect or critical stenosis. - reviewed with Dr. Schneider of [facility], who felt that this was likely an incidental/chronic finding, in particular given ipsilateral symptoms - continue neuro checks and aspirin - MRI with any worsening symptoms or deficits; MRI will be difficult given patient's current withdrawal symptoms Status: Acute (5) Elevated troponin: Problem details: - Peak 0.41 Status: Acute (6) Pulmonary embolism: Problem details: - acute - Xarelto initiated 03/22/22 Status: Acute (7) Fever: Problem details: - Tmax in the last 24 hours 100.5 (noon on 03/23/2022) - empirically started on Vanco and Zosyn 03/22 - blood cultures NGTD - lipase mildly elevated, no pancreatitis seen on CT abd - No source identified Status: Acute (8) Electrolyte abnormality: Problem details: - patient has hypocalcemia, hypomagnesemia, hypokalemia - replacing IV Status: Acute Plan - given patient's significant decompensation last 24 hours, reviewed the case with Dr. Whitney, mat man at [facility], who agrees to accept the patient in transfer - defer intubation at this time given reassuring VBG Subjective Date Seen: 03/24/22 Interval history: Yesterday afternoon, patient began having hypotension, remained tachycardic. Procalcitonin noted to be elevated, treated with IV fluid boluses and vancomycin/Zosyn continued. Later in the afternoon, his respiratory status declined, and BiPAP was initiated. TTE exhibited moderate to severe decreased left ventricular systolic function, CT of abdomen pelvis did not reveal pancreatitis or other infectious process. Patient continues to withdraw from alcohol in is unable to provide me any dash ningful history this morning. Exam Narrative: Exam Narrative: GEN: Patient laying in bed, wearing BiPAP, does not respond to verbal stimulation CV: Heart rate regular in the 80s R: Rales bilateral bases Skin: No concerning skin lesions or rashes on exposed skin Neuro: Unable to obtain a meaningful neuro exam Const: Vital Signs, click to edit/add: Vital Signs - 24 hr 03/23/22 08:00 03/23/22 09:00 03/23/22 10:00 Temperature 100.2 F H 100.1 F H 100.0 F H Pulse Rate Pulse Rate [Left A pical] 127 H 138 H 116 H Respiratory Rate 22 22 28 H Blood Pressure [Ri ght Arm] 157/101 H 145/108 H 123/84 Pulse Oximetry 98 97 95 Oxygen Delivery Me thod Room Air Room Air Room Air Oxygen Flow Rate Fraction of Inspir ed Oxygen 03/23/22 07:40 03/23/22 11:34 03/23/22 11:00 Temperature 100.5 F H 100.5 F H Pulse Rate 122 H Pulse Rate [Left A pical] 126 H Respiratory Rate 28 H Blood Pressure [Ri ght Arm] 124/88 Pulse Oximetry 94 Oxygen Delivery Me thod Room Air Oxygen Flow Rate Fraction of Inspir ed Oxygen 03/23/22 11:00 03/23/22 12:00 03/23/22 12:56 Temperature 100.5 F H 100.1 F H 99.4 F Pulse Rate Pulse Rate [Left A pical] 126 H 124 H Respiratory Rate 28 H 36 H Blood Pressure [Ri ght Arm] 124/88 117/78 Pulse Oximetry 94 95 Oxygen Delivery Me thod Room Air Room Air Oxygen Flow Rate Fraction of Inspir ed Oxygen 03/23/22 13:00 03/23/22 14:00 03/23/22 16:00 Temperature 99.4 F 98.6 F 97.7 F Pulse Rate Pulse Rate [Left A pical] 112 H 103 H 115 H Respiratory Rate 32 H 28 H 30 H Blood Pressure [Ri ght Arm] 104/71 96/66 101/74 Pulse Oximetry 94 95 94 Oxygen Delivery Me thod Room Air Room Air Room Air Oxygen Flow Rate Fraction of Inspir ed Oxygen 03/23/22 15:00 03/23/22 15:00 03/23/22 15:00 Temperature Pulse Rate Pulse Rate [Left A pical] 97 Respiratory Rate 30 H 30 H Blood Pressure [Ri ght Arm] Pulse Oximetry 97 97 Oxygen Delivery Me thod Nasal Cannula Oxygen Flow Rate 1 Fraction of Inspir ed Oxygen 03/23/22 15:00 03/23/22 15:00 03/23/22 17:00 Temperature 97.7 F 97.7 F Pulse Rate 111 H Pulse Rate [Left A pical] 97 111 H Respiratory Rate 30 H 30 H Blood Pressure [Ri ght Arm] 92/69 96/68 Pulse Oximetry 97 96 Oxygen Delivery Me thod Nasal Cannula Room Air Oxygen Flow Rate 1 Fraction of Inspir ed Oxygen 03/23/22 18:00 03/23/22 19:00 03/23/22 20:00 Temperature 99.2 F 98.5 F 98.7 F Pulse Rate Pulse Rate [Left A pical] 122 H 131 H 118 H Respiratory Rate 30 H 38 H 42 H Blood Pressure [Ri ght Arm] 129/88 117/76 121/92 H Pulse Oximetry 90 92 90 Oxygen Delivery Me thod Nasal Cannula Nasal Cannula Nasal Cannula Oxygen Flow Rate 1 4 4 Fraction of Inspir ed Oxygen 03/23/22 21:00 03/23/22 22:00 03/23/22 23:47 Temperature 98.9 F 98.7 F 97.6 F Pulse Rate Pulse Rate [Left A pical] 107 H 122 H 90 Respiratory Rate 35 H 36 H 28 H Blood Pressure [Ri ght Arm] 95/69 123/80 92/69 Pulse Oximetry 96 96 96 Oxygen Delivery Me thod BiPAP BiPAP BiPAP Oxygen Flow Rate Fraction of Inspir ed Oxygen 45 45 03/23/22 23:49 03/24/22 00:00 03/23/22 23:30 Temperature 97.6 F 97.6 F Pulse Rate 88 Pulse Rate [Left A pical] 90 89 Respiratory Rate 28 H 23 Blood Pressure [Ri ght Arm] 92/69 91/68 Pulse Oximetry 96 95 Oxygen Delivery Me thod BiPAP BiPAP Oxygen Flow Rate Fraction of Inspir ed Oxygen 03/23/22 23:30 03/23/22 23:30 03/23/22 23:30 Temperature Pulse Rate Pulse Rate [Left A pical] 89 Respiratory Rate 23 23 Blood Pressure [Ri ght Arm] Pulse Oximetry 95 96 Oxygen Delivery Me thod BiPAP Oxygen Flow Rate Fraction of Inspir ed Oxygen 03/24/22 01:00 03/24/22 02:00 03/24/22 03:00 Temperature 97.6 F 97.4 F L 97.8 F Pulse Rate Pulse Rate [Left A pical] 84 89 83 Respiratory Rate 30 H 21 20 Blood Pressure [Ri ght Arm] 95/79 90/66 93/73 Pulse Oximetry 99 98 95 Oxygen Delivery Me thod BiPAP BiPAP BiPAP Oxygen Flow Rate Fraction of Inspir ed Oxygen 03/24/22 03:00 03/24/22 03:40 03/24/22 04:00 Temperature 97.8 F 97.4 F L 97.6 F Pulse Rate Pulse Rate [Left A pical] 83 86 79 Respiratory Rate 20 26 H 22 Blood Pressure [Ri ght Arm] 93/73 97/63 89/63 L Pulse Oximetry 95 97 97 Oxygen Delivery Me thod BiPAP BiPAP BiPAP Oxygen Flow Rate Fraction of Inspir ed Oxygen 03/24/22 05:00 03/24/22 06:00 Temperature 97.6 F 97.6 F Pulse Rate Pulse Rate [Left A pical] 77 83 Respiratory Rate 20 20 Blood Pressure [Ri ght Arm] 83/58 L 91/71 Pulse Oximetry 99 95 Oxygen Delivery Me thod BiPAP BiPAP Oxygen Flow Rate Fraction of Inspir ed Oxygen Labs Labs: Laboratory Results - last 24 hr 03/23/22 03/23/22 03/23/22 07:37 07:37 07:37 WBC 4.51 RBC 3.25 L Hgb 10.3 L Hct 30.5 L MCV 94 MCH 32 MCHC 34 RDW Coeff of Chantel 15.7 H Plt Count 104 L Neut % (Auto) 70.8 Lymph % (Auto) 16.0 L [place] % (Auto) 11.5 H Eos % (Auto) 0.4 Baso % (Auto) 0.9 Neut # (Auto) 3.19 Lymph # (Auto) 0.70 L [place] # (Auto) 0.50 Eos # (Auto) 0.02 Baso # (Auto) 0.04 Abs Immat Gran (auto) 0.02 Imm/Tot Granulo (auto) 0.4 INR Sodium 136 Potassium 3.4 L Chloride 101 Carbon Dioxide 24 BUN 11 Creatinine 0.9 Estimated Creat Clear 85.50 Estimated GFR 98 Glucose 108 Lactate 1.2 Calcium 6.6 L Ionized Calcium Rosenda 0.84 L Total Bilirubin 1.9 H AST 157 H ALT 38 Alkaline Phosphatase 71 Troponin I Total Protein 6.4 Albumin 3.6 Lipase 1101 H Procalcitonin 0.78 H 03/23/22 03/23/22 03/23/22 16:58 16:58 19:18 WBC RBC Hgb Hct MCV MCH MCHC RDW Coeff of Chantel Plt Count Neut % (Auto) Lymph % (Auto) [place] % (Auto) Eos % (Auto) Baso % (Auto) Neut # (Auto) Lymph # (Auto) [place] # (Auto) Eos # (Auto) Baso # (Auto) Abs Immat Gran (auto) Imm/Tot Granulo (auto) INR Sodium Potassium Chloride Carbon Dioxide BUN Creatinine Estimated Creat Clear Estimated GFR Glucose Lactate Calcium Ionized Calcium Rosenda 0.85 L Total Bilirubin AST ALT Alkaline Phosphatase Troponin I 0.41 H* 0.34 H* Total Protein Albumin Lipase Procalcitonin 03/24/22 03/24/22 03/24/22 06:27 06:27 06:27 WBC 6.04 RBC 3.07 L Hgb 9.7 L Hct 29.5 L MCV 96 MCH 32 MCHC 33 RDW Coeff of Chantel 15.3 Plt Count 101 L Neut % (Auto) 77.1 H Lymph % (Auto) 13.1 L [place] % (Auto) 6.6 Eos % (Auto) 2.2 Baso % (Auto) 0.7 Neut # (Auto) 4.70 Lymph # (Auto) 0.80 L [place] # (Auto) 0.40 Eos # (Auto) 0.13 Baso # (Auto) 0.04 Abs Immat Gran (auto) 0.02 Imm/Tot Granulo (auto) 0.3 INR 1.22 H Sodium Potassium Chloride Carbon Dioxide BUN Creatinine Estimated Creat Clear Estimated GFR Glucose Lactate 1.0 Calcium Ionized Calcium Rosenda 0.86 L Total Bilirubin AST ALT Alkaline Phosphatase Troponin I Total Protein Albumin Lipase Procalcitonin
[2022-03-24 07:14] LABS: Albumin* 3.3 g/dL (3.3-5.0); Chloride* 103 mmol/L (96-114)
[2022-03-24 07:15] LABS: Sodium* 138 mmol/L (135-149)
[2022-03-24 07:17] LABS: Alkaline Phosphatase* 44 U/L (40-150); Aspartate Amino Transferase* 106 U/L (12-35); Bilirubin Total* 1.8 mg/dL (0.1-1.5); Blood Urea Nitrogen* 9 mg/dL (7-30); Carbon Dioxide* 25 mmol/L (20-32); Creatinine* 0.9 mg/dL (0.5-1.5); Estimated Glomerular Filt Rate 98 ml/min
[2022-03-24 07:18] LABS: Alanine Aminotransferase* 28 U/L (4-50); Calcium* 6.4 mg/dL (8.4-10.6); Glucose* 90 mg/dL (60-115); Lipase* 899 U/L (23-300)
[2022-03-24 07:25] LABS: PCO2 VBG 43 mmHG (40-50)
[2022-03-24 07:26] LABS: HCO3 VBG 27 mmol/L (21-28); pH VBG 7.39 (7.32-7.43)
[2022-03-24 07:27] LABS: Potassium* 2.9 mmol/L (3.6-5.1)
[2022-03-24 07:28] LABS: Magnesium* 0.6 mg/dL (1.5-2.6)
--- NOTE | 2022-03-24 07:35 | PC.NURSE ---
Critical lab results given to Dr. Gooden. K+ 2.9 and Mag 0.6.
[2022-03-24] MEDS: POTASSIUM CHLORIDE 10 MEQ/100 ML PIGGYBACK 100 MEQ IVPB ×2 (08:19→09:47)
[2022-03-24] MEDS: MAGNESIUM IV 2 GM/50 ML PIGGYBACK IVPB (08:56)
[2022-03-24] MEDS: LORazepam 2 MG/ML inj IVP (09:00)
--- NOTE | 2022-03-24 11:01 | REH.PT ---
PT/OT held per .
--- NOTE | 2022-03-24 12:35 | PC.NURSE ---
Pt remains on bipap, somnolent and unresponsive. Awakens to light touch. Small sips of water. Eval by Dr. Gooden and Lawrence from RT. Critical potassium and critical magnesium reported to Dr. Gooden. Pt received Magnesium IVPB over 2 hours. Zosyn ATB and 2 bumps of 10 MeQ of IV potassium each over 1 hour. AM oral meds not given d/to high risk for aspiration. Report called to LINDA @ [facility] per protocol. BED 2052 at [facility]. Transfer paperwork, VS and information completed by myself and Baudilio valle RN. Report to EMS by Stephanie Gooden & primary RN. RT present to oversee transfer via stretcher on BIPAP. Pt discharged at 10:50 am per ambulance.
--- NOTE | 2022-03-24 12:47 | PC.NURSE ---
Pt received 2mg of IV ativan to decrease moderately fidgety behavior to prevent loss of 3 IV sites this morning, hx of ETOH abuse.
[2022-03-27 12:21] LABS: Vitamin B1, Whole Blood 66 nmol/L (70-180)
== END 2022-03-24 10:50 | disposition short-term general hospital (02) | DRG 134 ==
LOC: ED 16:43 → MEDSURG 20:08
PROVIDERS: Family Medicine; Admitting Provider Family Medicine; Emergency Provider Family Medicine; Visit Provider Family Medicine
DX: I26.99 Other pulmonary embolism without acute cor pulmonale (principal); F10.239 Alcohol dependence with withdrawal, unspecified; J96.01 Acute respiratory failure with hypoxia; I50.21 Acute systolic (congestive) heart failure; F10.231 Alcohol dependence with withdrawal delirium; G31.2 Degeneration of nervous system due to alcohol; K29.20 Alcoholic gastritis without bleeding; F10.229 Alcohol dependence with intoxication, unspecified; Y90.7 Blood alcohol level of 200-239 mg/100 ml; R77.8 Other specified abnormalities of plasma proteins; I11.0 Hypertensive heart disease with heart failure; R50.9 Fever, unspecified; I95.9 Hypotension, unspecified; E83.51 Hypocalcemia; R53.1 Weakness; I77.79 Dissection of other specified artery; E83.42 Hypomagnesemia; E87.6 Hypokalemia; K70.0 Alcoholic fatty liver; R91.1 Solitary pulmonary nodule; E86.9 Volume depletion, unspecified; R00.0 Tachycardia, unspecified; R33.9 Retention of urine, unspecified; M10.9 Gout, unspecified; Q61.02 Congenital multiple renal cysts; E78.5 Hyperlipidemia, unspecified
CPT/HCPCS: 36415; 36600; 70450; 70496; 70498; 71045; 71046; 71260; 74177; 80048; 80053; 80076; 80306; 81001; 82077; 82330; 82803; 83605; 83690; 83735; 84145; 84425; 84484; 85025; 85379; 85610; 85730; 87040; 87502; 87634; 87635; 93005; 93306; 94660; 94761; 97166; 99285; G0378; A9153; A9270; J0610; J1940; J2060; J2405; J2543; J2560; J3370; J3411; J3475; J3480; J7030; J7050; J7120; P9047; Q9957; Q9967

== ENCOUNTER 2022-03-24 10:31 | Outpatient (CLI) | payer BC, SELFPAY ==
--- OUTSIDE RECORDS SUMMARY | 2022-04-01 12:32 | XMS_ITS | Encounter Summary ---
:1960 Author Organization [place] Address [address] [place] [address] Care Team Providers Name Role Phone Denise Connell PA-C Unavailable [phone] Denise Connell PA-C Unavailable [phone] Juan Farias MD Primary Care Provider Encounter [...] as of this encounter Care Teams Technical Service Representative Relationship Specialty Start Date End Date Juan Farias, PCP - General Cardiovascular Disease 12/04/21 [address] [place] [id number] Denise Connell Physician School Age Lead Teacher Cardiovascular Disease 08/12/21 MARIETTA Watson [address] [place] [id number] [place], Denise Assigned Heart and 08/22/21 01/14/22 MARIETTA Watson Vascular Provider [address] [place] [id number] documented as of this encounter
--- OUTSIDE RECORDS SUMMARY | 2022-04-01 12:32 | XMS_ITS | Encounter Summary ---
:1960 Author Organization [place] Address [address] [place] [address] Care Team Providers Name Role Phone Denise Connell PA-C Unavailable [phone] Denise Connell PA-C Unavailable [phone] Juan Farias MD Primary Care Provider Reason for Referral Consultation (Routine: Next available opening) - Pending Review Specialty Diagnoses / Procedures Referred By Contact Refer red To Contact Cardiovascular Disease Diagnoses Essential hypertension Dana Barry PA-C [address] [employer] [address] [place] [address] Referral ID Status Reason Start Date Expiration Date Visits V isits Requested Authorized [id number] Pending 01/05/2022 01/05/2023 1 1 Review Consultation (Routine: Next available opening) - Pending Review Specialty Diagnoses / Procedures Referred By Contact Refer red To Contact Cardiovascular Disease Diagnoses Essential hypertension Dana Barry PA-C [address] [place] [address] Referral ID Status Reason Start Date Expiration Date Visits V isits Requested Authorized [id number] Pending 01/05/2022 01/05/2023 1 1 Review Reason for Visit Reason Comments Follow Up Follow up with EAN Huynh for work release form per scheduling [facility] for alcohol gastritis (Routine) - Closed Specialty Diagnoses / Procedures Referred By Contact Refer red To Contact Diagnoses Mixed hyperlipidemia Juan Farias MD [address] [place] [address] Referral ID Status Reason Start Date Expiration Date Visits Requ ested Visits Authorized [id number] Closed 01/30/2020 01/29/2021 1 1 Encounter Details Date Type Department Care Team Description 01/05/[address] [facility] Juan Farias MD [address] [place] [id number] Mixed hyperlipidemia; Heart Clinic Dana Barry PA-C [address] [place] [address] Essential hypertension [address] [address] Social History Tobacco Use Types [...] 3:15 PM CDT .Thanks for coming into [facility] Heart clinic today. We discussed: our [...] Connell PA-C in about a month in [place] for a blood pressure check. We'll have you see Dr. Farias in 6 months. Please call my nurse Mai at Reminder: Please bring in all current medications, over the counter supplements and vitamin bottles to your next appointment. documented in this encounter Progress Notes Dana Barry PA-C - 01/05/2022 3:15 PM CDT [id number] HPI and Plan: See dictation Orders this [...] by mouth daily 90 tablet 2 ??? Nfytklbhu-Fycmrtwawxo-Vgw D (OSTEO BI-FLEX ONE PER DAY PO) [...] Other Topics Concern ??? Parent/sibling w/ CABG, NC or angioplasty before 65F 55M? No ??? [...] (H) 03/14/2009 CC Juan Farias MD [address] [facility] [address] [place] [address] Dana Barry PA-C - 01/05/2022 2:52 PM CDT Service Date: 01/05/2022 PRIMARY DETAIL MANAGER: Juan Farias MD REASON FOR VISIT: Hypertension. [...] with last LDL 86, HDL 50, total [id number]. 3. Recent acute pancreatitis, resolved per primary care provider. Thank you for allowing me to participate in this patient's care. I completed the paperwork for his employer and I would be happy to work with him to get his blood pressure to goal. To make sure that happens, we will have him follow up in 1 month with Ms. Connell in [place] where he typically sees her and will work on getting him back in with his primary doctor, Dr. Farias, in the spring. Dana Barry PA-C MT: JOELLE Name: ELIJAH BROWN Account: [id number] : 1960 Service Date: 01/05/2022 Document: [id number] documented in this encounter Plan of Treatment [...] as of this encounter Care Teams Insurance Sales Assistant Relationship Specialty Start Date End Date Juan Farias, PCP - General Cardiovascular Disease 12/04/21 [address] [place] [id number] Denise Connell Physician Auto Machinist Cardiovascular Disease 08/12/21 MARIETTA Watson [address] [place] [address] Denise Connell Assigned Heart and 08/22/21 01/14/22 MARIETTA Watson Vascular Provider [address] [place] [address] documented as of this encounter
--- OUTSIDE RECORDS SUMMARY | 2022-04-01 12:32 | XMS_ITS | Clinical Summary ---
:1960 Author Organization [place] Address [address] [place] [address] Care Team Providers Name Role Phone Marydebra Denise Watson PA-C Unavailable [phone] Juan Farias MD Primary Care Provider Dana Barry PA-C Unavailable [phone] Allergies Active Allergy Reactions Severity Noted [...] 1 tablet by 0 Active mouth daily Rokxkguhv-Renslmaayxl-L Take 1 tablet by 0 Active it [...] ype Group Dates [place] [id number] 2021-Pres [phone] [address] [address] Medicaid ent 00 [place] [id number] (Home) [place] [address] Advance Directives For more information, please contact: [phone] Latest Code Status on File Code Status Date Activated Date Inactivated Comments Full Code 12/04/2021 3:46 PM 2021 1:02 PM All basic an d advanced life-sustaining interventions are performed as alexandru ropriate Question Answer Comments Code status determined by: Discussion with patient/ legal de cision maker Care Teams Substation Operator Automatic Relationship Specialty Start Date End Date Juan Farias, PCP - General Cardiovascular Disease 12/04/21 [address] [place] [address] Denise Connell Physician Cut Off Man Cardiovascular Disease 08/12/21 MARIETTA Watson [address] [place] [phone] Dana Barry Assigned Heart and 01/15/22 MARIETTA Teague Vascular Provider [address] [place] [id number]
--- OUTSIDE RECORDS SUMMARY | 2022-04-01 12:33 | XMS_ITS | Encounter Summary ---
:1960 Author Organization [place] Address [address] [place] [address] Care Team Providers Name Role Phone No Ref-Primary, Physician Primary Care Provider [phone] Juan Farias MD Unavailable Reason for Visit Reason Onset Date Comments Clinic Care Coordination - Follow-up 06/30/2021 Encounter Details Date Type Department Care Team Description 06/30/[address] 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
--- OUTSIDE RECORDS SUMMARY | 2022-04-01 12:33 | XMS_ITS | Encounter Summary ---
:1960 Author Organization [place] Address [address] [place] [address] Care Team Providers Name Role Phone No Ref-Primary, Physician Primary Care Provider [phone] Denise Connell-C Unavailable [phone] Denise Connell-C Unavailable [phone] Juan Farias MD Primary Care Provider Dana Barry PA-C Unavailable [phone] Reason for Visit Reason Onset Date Comments Patient/info Update 08/12/2021 Pt asked to come in sooner Encounter Details Date Type Department Care Team Description 08/12/2021 Telephone [facility] Juan Farias, Patient/info Update (Pt Clinic Annika HERBERT asked to come in [address] [facility] [address] [facility] soon er) [facility] [address] [place] [address] [place] [address] Social History Tobacco Use [...] is schedule for his labs Monday at [facility] and a FUw/ RAN per patient request. He stated he needs to be seen BUNNY & Dr Farias is out until Dec at [place]; his BP is 3 points too high [...] as of this encounter Care Teams Supervisor Heading Relationship Specialty Start Date End Date No Ref-Primary, PCP - General 07/03/14 12/03/21 Physician Juan Farias, PCP - General Cardiovascular Disease 12/04/21 [address] [place] [address] Denise Connell Physician Boat Oar Maker Cardiovascular Disease 08/12/21 MARIETTA Watson [address] [place] [address] Denise Connell Assigned Heart and 08/22/21 01/14/22 MARIETTA Watson Vascular Provider [address] [place] [address] Dana Barry Assigned Heart and 01/15/22 MARIETTA Teague Vascular Provider [address] [place] [address] documented as of this encounter
--- OUTSIDE RECORDS SUMMARY | 2022-04-01 12:33 | XMS_ITS | Encounter Summary ---
:1960 Author Organization [place] Address [address] [place] [address] Care Team Providers Name Role Phone No Ref-Primary, Physician Primary Care Provider [phone] Denise Connell PA-C Unavailable [phone] Encounter Details Date Type Department Care Team [...] documented as of this encounter Care Teams Construction Carpenter Relationship Specialty Start Date End Date No Ref-Primary, PCP - General 07/03/14 12/03/21 Physician Denise Connell Physician Personnel Associate Cardiovascular Disease 08/12/21 MARIETTA Watson [address] [facility] [address] [place] [address] documented as of this encounter
--- OUTSIDE RECORDS SUMMARY | 2022-04-01 12:33 | XMS_ITS | Encounter Summary ---
:1960 Author Organization [place] Address [address] [place] [address] Care Team Providers Name Role Phone No Ref-Primary, Physician Primary Care Provider [phone] Denise Connell PA-C Unavailable [phone] Encounter Details Date Type Department Care Team [...] documented as of this encounter Care Teams Product Safety Technician Relationship Specialty Start Date End Date No Ref-Primary, PCP - General 07/03/14 12/03/21 Physician Denise Connell Physician Proof Press Operator Cardiovascular Disease 08/12/21 MARIETTA Watson [address] [facility] [address] [place] [address] documented as of this encounter
--- OUTSIDE RECORDS SUMMARY | 2022-04-01 12:33 | XMS_ITS | Encounter Summary ---
:1960 Author Organization [place] Address [address] [place] [address] Care Team Providers Name Role Phone Denise Connell PA-C Unavailable [phone] Denise Connell PA-C Unavailable [phone] Juan Farias MD Primary Care Provider Reason for Visit Reason Comments Chest Pain Auth/Cert Specialty Diagnoses / Procedures Referred By Contact Refer red To Contact Med Surg Diagnoses Alcoholic ketoacidosis Alcoholic ketoacidosis 5 [facility] [address] [place], [place] [address] Phone: Fax: Referral ID Status Reason Start Date Expiration Date Visits Requ ested Visits Authorized [id number] 1 1 Encounter Details Date Type Department Care Team Description 12/04/2021 - [facility] Jason Orozco MD [facility] [address] [place] [address] Alcoholic gastritis without bleeding, un specified chronicity (Primary Dx); 2021 Encounter [facility] Rodger Mantilla MD [address] [place] [address] Alcoholic ketoacidosis; Surgical Sprain of left ankle, unspec ified ligament, initial encounter [address] [place] [phone] Social History Tobacco Use Types Packs/Day Years [...] CDT documented in this encounter Discharge Summaries Klevin Ceballos MD - 2021 9:19 AM CDT [facility] Discharge Summary Name: Juan Pablo Brown Date of : 1960 Age: [age] year old Date of Discharge: 2021 Date of Admission: 12/04/2021 Primary Care Provider: Juan Farias Discharge Physician: Ronnie Ceballos MD Discharging Service: Hospitalist Hospital Course/Discharge Diagnoses: Juan Pablo Brown is a 60 year old male with past medical history including alcohol abuse, hypertension, hypercholesteremia who presented to [facility] on 12/04/2021 with abdominal pain associated with [...] your medicines These medications were sent to [facility] [address] [address] ?? omeprazole [address] capsule Some [...] EXAM: CT ABDOMEN PELVIS W CONTRAST LOCATION: [facility] DATE/TIME: 12/04/2021 9:52 AM INDICATION: abdominal [...] Take 81 mg by mouth 0 daily Hroulkjwg-Helirdjiyhm-Uqg Take 1 tablet by 0 D (OSTEO [...] with mobility and cares and works making [employer] General Information Onset of Illness/Injury or Date of Surgery 12/04/21 Referring Physician Rdoger Mantilla MD Patient/Family Therapy Goals Statement (PT) return home with parents Pertinent History of Current Problem (include personal factors and/or comorbidities that impact the POC) per chart: 60 year old male with past medical history including alcohol abuse, hypertension, hypercholesteremia who presented to [facility] on 12/04/2021 with abdominal pain associatedwith nausea [...] 11:09 AM CDT Hospitalist Medicine Progress Note [facility] Kelvin Ceballos MD 12/07/2021 Juan Pablo Brown is a 60 year old male with past medical history including alcohol abuse, hypertension, hypercholesteremia who presented to [facility] on 12/04/2021 with abdominal pain associated with [...] Patient . Kelvin Ceballos MD Hospitalist Service [facility] Interval History I assumed care today, [...] Left ankle tender laterally with inward rotation ASSISTANT EDITOR: Alert, Oriented x 3, Moving all the [...] - pt will take a taxi to [place] [address] in [place] where his car is. Private pay costs [...] available as needed until discharge. ELVA Conklin, [facility] Inpatient Care Coordination [facility] [phone], LD - 12/06/2021 9:30 [...] home: regular diet - Typical food/fluid intake MOLDER MEAT: pt reports being unable to consume much for the past 1 week, endorses nausea and vomiting and inability to consume even water for the past 2-3 days MOLDER MEAT. - Supplements: none - Chewing/swallowing difficulty: none [...] Dosing Weight 83.2 kg Estimated Energy Needs: 3933-4186 kcals (25-30 Kcal/Kg) Justification: maintenance Estimated Protein [...] Dover RD, ELLIOTT Clinical Dietitian 3rd floor/ICU: [phone] All other floors: [phone] Weekend/holiday: [phone] Office: [phone] Rodger Mantilla MD - 12/05/2021 12:23 PM CDT Hospitalist Medicine Progress Note [facility] Juan Pablo Brown is a 60 year old gentleman with alcohol abuse, hypertension, hypercholesteremia whocame in with abdominal pain associated with nausea and vomiting and was diagnosed with acute pancreatitis with elevated lipase of 411 CT scan showing thickness of the visualized distal esophagus, stranding around the pancreatic head entry level marketing representative of acute pancreatitis. There was diffuse [...] discomfort ECG shows changes nonspecific for acute FL nevertheless there is progressive loss of R [...] Patient . Rodger Mantilla MD Hospitalist Service [facility] Interval History Symptoms Patient's abdominal pain [...] decreased LOWER LIMBS: no Pedal Edema Bilaterally ASSISTANT EDITOR: Alert, Oriented x 3, Moving all the [...] Mantilla MD - 12/04/2021 10:44 AM CDT [facility] History and Physical - Hospitalist Service [...] discomfort ECG shows changes nonspecific for acute FL nevertheless there is progressive loss of R [...] the Patient. Rodger Mantilla MD Hospitalist Service [facility] Securely message with the Hacker[employer] Console (learn more here) Text page via DocSend Paging/Directory Chief Complaint Chest and abdominal pain [...] Prescriptions Last Dose Informant Patient Reported? Taking? Zxbwkgwye-Gejolckxpwb-Afi D (OSTEO BI-FLEX ONE PER DAY PO) [...] Positive LOWER LIMBS: no Pedal Edema Bilaterally ASSISTANT EDITOR: Alert, Oriented x 3, Moving all the [...] EXAM: CT ABDOMEN PELVIS W CONTRAST LOCATION: [facility] DATE/TIME: 12/04/2021 9:52 AM INDICATION: abdominal [...] Communication Assessment Patient's communication style: spoken language (Arabic or Bilingual) Hearing Difficulty or Deaf: no [...] Status: Current Concern Values/Beliefs: Spiritual, Cultural Beliefs, Hinduism Practices, Values that affect care: Additional Information: Met with pt to introduce self/role. Pt reports he has BCBS through his previous employer [employer]? He did not have any insurance cards with him for me to verify. But then he also mentioned he would need to contact [facility] to pay for this hospital stay, even though he is reporting he does not receive any services through the [facility]. I LVM for financial counselors to look [...] SW if other needs/cocnerns arise. Miriam STEVENSON, [facility] Inpatient Care Coordination [facility] [phone] documented in this encounter ED Notes Saira Tapia RN - 12/04/2021 10:36 AM CDT [facility] ED Nurse Handoff Report Juan Pablo Brown is a 60 year old male ED Chief complaint: Chest Pain . ED Diagnosis: Final diagnoses: Alcoholic ketoacidosis Allergies: Allergies Allergen Reactions ??? Lisinopril Kidney dysfunction and hyperkalemia Code Status: Full Code Activity level - Baseline/Home: Independent. Activity Level - Current: Stand by Assist. Lift room needed: No. Bariatric: No Model Maker Plaster Needed: No Isolation: No. Infection: Not Applicable. [...] his baseline. Emesis x2 days. Stay at [facility] 6. EKG SR. 4 mg ODT zofran [...] shortness of breath. He stays at a [facility] 6. EMS gave him Jackie. Review of Systems Respiratory: Negative for shortness of breath. Cardiovascular: Positive for chest pain. Gastrointestinal: Positive for abdominal distention and vomiting. All other systems reviewed and are negative. Allergies: Lisinopril Medications: amLODIPine (NORVASC) 10 MG tablet aspirin 81 MG tablet atorvastatin (LIPITOR) 40 MG tablet Crbnigrtp-Vhpmdsbvhxz-Uou D (OSTEO BI-FLEX ONE PER DAY PO) [...] Pressure Ventricular Rate 119 Atrial Rate 117 NE Interval 122 QRS Duration 94 QT 328 QTc 461 P [place] 35 R AXIS -19 T [place] 77 Interpretation ECG Sinus tachycardia with frequent [...] Outcome Evaluation: Assumed care of pt from 6433-2671. AVSS. A&Ox4. Apical pulse regular. Lungs CTA. [...] Pertinent assessments: Assumed care of pt from 1284-2028. AVSS. A&Ox4. Apical pulse regular. Lungs CTA. [...] goal(s). See goals on Care Plan in [facility] electronic health record for goal details. [...] Pertinent assessments: Assumed care of pt from 8779-3610. VSS. A&O but forgettful. Apical pulse regular. [...] even water for the past 2-3 days MOLDER MEAT. Plan to follow peripherally for diet advancement. Kenzie Real. CORRINE [place], LD Clinical Dietitian 3rd floor/ICU: [phone] All other floors: [phone] Weekend/holiday: [phone] Office: [phone] Plan of Care - Kassandra Gillette RN [...] distal esophagus, stranding around the pancreatic head entry level marketing representative of acute pancreatitis. Patient requires inpatient [...] section 70.4. Sincerely, NOA CHAPARRO MD System Cold Mill OperatorWarehouse Operator [facility]. Plan of Care - Kassandra Gillette RN [...] withdrawal. Pharmacy-Admission Medication History - Debbie Alicea [facility] - 12/04/2021 5:27 PM CDT Admission medication history interview status for this patient is complete. See [facility] admission navigator for allergy information, prior to admission medications and immunization status. Medication history interview done, indicate source(s): Patient Medication history resources (including written lists, pill bottles, clinic record):None Pharmacy: [facility] pharmacy Changes made to MOLDER MEAT medication list: Added: none Changed: omeprazole Reported as Not Taking: none Removed: magnesium Actions taken by pharmacist (provider contacted, etc):None Additional medication history information:None Medication reconciliation/reorder completed by provider prior to medication history? Y (Y/N) Prior to Admission medications Medication Sig Last Dose Taking? Auth Provider [facility] Date amLODIPine (NORVASC) 10 MG tablet [...] Unknown time Yes Denise Connell PA-C Yes Bggpndjnz-Ecumjzcqgmd-Ljg D (OSTEO BI-FLEX ONE PER DAY PO) [...] - BLOOD ORDERABLES Performing Organization Address City/[facility]/[place]IP [place] [phone] Care Lab [address] Lab (1st floor, no room [...] Organization Address City/State/[place] [address] Care [address] Lab (1st floor, no room [...] Address City/State/ZIP Code [place] [address] Care Lab [address] Lab (1st floor, no room [...] - BLOOD ORDERABLES Performing Organization Address City/[facility]/ZIP Code [place] [address] Care Lab [address] Lab (1st floor, no room [...] Address City/State/ZIP Code [place] [phone] Care Lab [address] Lab (1st floor, no room number) (ABNORMAL) CBC with platelets (12/07/2021 5:37 AM CDT) [facility] gist Method Time Signature WBC Count [...] Address City/State/ZIP Code [place] [phone] Care Lab [address] Lab (1st floor, no room number) (ABNORMAL) Comprehensive metabolic panel (12/07/2021 5:37 AM CDT) [facility] Method Time Signature Sodium 135 (L) [...] and gender (Yuli et al., NEJM, DOI: 10.1056/[id number]) Specimen Anatomical Collection Method / Collection Time Recei rehana Time (Source) Location / Volume Laterality Blood STRUCTURE OF LEFT Venipuncture / 12/07/2021 5:37 12/07 5:43 UPPER LIMB / Unknown AM CDT AM CDT Unknown Rodger Mantilla MD LAB - BLOOD ORDERABLES Performing Organization Address City/[facility]/[place] [address] Care Lab [address] Lab (1st floor, no room [...] - BLOOD ORDERABLES Performing Organization Address City/[facility]/[place] [address] Care Lab [address] Lab (1st floor, no room [...] - BLOOD ORDERABLES Performing Organization Address City/[facility]/[place] [address] Care Lab [address] Lab (1st floor, no room [...] Address City/State/ZIP Code [place] [address] Care Lab [address] Lab (1st floor, no room [...] Address City/State/ZIP Code [place] [address] [facility] [address] [facility] ([facility], no room [...] and gender (Yuli et al., NE, DOI: 10.1056/[id number]) Specimen Anatomical Collection Method / Collection Time Recei rehana Time (Source) Location / Volume Laterality Blood STRUCTURE OF RIGHT Venipuncture / 12/06/2021 6:26 11/22 7:05 HAND / Unknown Unknown AM CDT AM CDT Rodger Mantilla MD LAB - BLOOD ORDERABLES Performing Organization Address City/State/[place] [address] Care [address] Lab (1st floor, no room [...] Organization Address City/State/ZIP Code [place] [address] Care Lab [address] Lab (1st floor, no room [...] - BLOOD ORDERABLES Performing Organization Address City/[facility]/ZIP Code [place] [address] Care Lab [address] Lab (1st floor, no room [...] Address City/State/ZIP Code [place] [address] Care Lab [address] Lab (1st floor, no room [...] - BLOOD ORDERABLES Performing Organization Address City/[facility]/[place] [address] Care Lab [address] Lab (1st floor, no room [...] - BLOOD ORDERABLES Performing Organization Address City/[facility]/[place] [address] Care Lab [address] Lab (1st floor, no room [...] - BLOOD ORDERABLES Performing Organization Address City/[facility]/[place] [address] Care Lab [address] Lab (1st floor, no room [...] - BLOOD ORDERABLES Performing Organization Address City/[facility]/ZIP [facility] [place] [address] Care Lab [address] Lab (1st floor, no room [...] LAB - BLOOD ORDERABLES Performing Organization Address [facility] [place] [address] Care Lab [address] Lab (1st floor, no room [...] - BLOOD ORDERABLES Performing Organization Address City/[facility]/ZIP Code Ph[place] [address] Care Lab [address] Lab (1st floor, no room number) (ABNORMAL) CBC with platelets (12/05/2021 6:51 AM CDT) [facility] Method Time Signature WBC Count 7.0 [...] Address City/State/ZIP Code [place] [address] Care Lab [address] Lab (1st floor, no room number) (ABNORMAL) Comprehensive metabolic panel (12/05/2021 6:51 AM CDT) [facility] Method Time Signature Sodium 136 136 [...] and gender (Yuli et al., NEJM, DOI: 10.1056/[id number]) Specimen Anatomical Collection Method / Collection Time Recei rehana Time (Source) Location / Volume Laterality Blood STRUCTURE OF RIGHT Venipuncture / 12/05/2021 6:51 11/22 6:55 HAND / Unknown Unknown AM CDT AM CDT Rodger Mantilla MD LAB - BLOOD ORDERABLES Performing Organization Address City/[facility]/[place] [address] Care Lab [address] Lab (1st floor, no room [...] - BLOOD ORDERABLES Performing Organization Address City/[facility]/[place] [address] Care Lab [address] Lab (1st floor, no room [...] - BLOOD ORDERABLES Performing Organization Address City/[facility]/[place] [address] Care Lab [address] Lab (1st floor, no room [...] City/State/ZIP Code [place] [address] Care Lab [address] Lab (1st floor, no room [...] 12/04/2021 LABORATORY mg/dL 11:34 PM CDT Specific [place] 1.023 1.003 - 12/04/2021 [facility] LABORATOR Y [...] Organization Address City/State/[place] [address] Care Lab [address] Lab (1st floor, no room [...] LAB - URINE ORDERABLES Performing Organization Address City/[facility]/[place] [address] Care Lab [address] Lab (1st floor, no room [...] - BLOOD ORDERABLES Performing Organization Address City/[facility]/[place] [address] Care Lab [address] Lab (1st floor, no room [...] - BLOOD ORDERABLES Performing Organization Address City/[facility]/[place] [address] Care Lab [address] Lab (1st floor, no room [...] es age and gender (Yuli et al., [facility], DOI: 10.[facility]6/[id number]) Calcium 8.5 (L) 8.6 - 10.0 mg/dL 12/04/2021 8:12 PM CDT [facility] Specimen Anatomical Collection Method / Collection Time Recei rehana Time (Source) Location / Volume Laterality Blood STRUCTURE OF RIGHT Venipuncture / 12/04/2021 7:44 08/06/2021 7:47 UPPER LIMB / Unknown PM CDT PM CDT Unknown Rodger Mantilla MD LAB - BLOOD ORDERABLES Performing Organization Address City/State/ZIP Code [place] [phone] Care Lab [address] Lab (1st floor, no room [...] Address City/State/ZIP Code [place] [address] Care Lab [address] Lab (1st floor, no room [...] apply to non- f emales only. Rodger Mnatilla MD LAB - BLOOD ORDERABLES Performing Organization Address City/State/ZIP Code Phon [place] [address] Lab [address] [facility] [address], Room 3-580 [...] es age and gender (Yuli et al., [facility], DOI: 10.1056/[id number]) Specimen Anatomical Collection Method / Collection Time Recei rehana Time (Source) Location / Volume Laterality Blood STRUCTURE OF RIGHT Venipuncture / 12/04/2021 4:13 11/22 4:24 UPPER LIMB / Unknown PM CDT PM CDT Unknown Rodger Mantilla MD LAB - BLOOD ORDERABLES Performing Organization Address City/State/ZIP Code [place] [address] Care Lab [address] Lab (1st floor, no room [...] EXAM: CT ABDOMEN PELVIS W CONTRAST LOCATION: [facility] DATE/TIME: 12/04/2021 9:52 AM INDICATION: abdominal [...] EXAM: CT ABDOMEN PELVIS W CONTRAST LOCATION: [facility] DATE/TIME: 12/04/2021 9:52 AM INDICATION: abdominal [...] the Xpert Xpress SARS-CoV-2 Assay on the [employer]. A dditional information about this [...] target RNA in concentration below the li anedrson of detection for the assay. The possibility of a false negati ve should be considered if the patient's recent exposure or clinica l presentation suggests COVID-19. This test was validated by the [facility]. This laboratory is certified under the Clinical Laboratory Improvement Amendments of 1988 (CLIA-88) as qualified to perform high complexity laboratory testing. Jason Orozco MD LAB - MICRO GENERAL ORDERABL ES Performing Organization Address City/State/ZIP Code [place] [address] Care Lab [address] Lab (1st floor, no room [...] LAB - BLOOD ORDERABLES Performing Organization Address [facility]/[place] [address] Care Lab [address] Lab (1st floor, no room number) Magnesium (12/04/2021 9:18 AM CDT) P athologist Signature Magnesium 1.7 1.7 - 2.3 12/04/2021 [facility] mg/dL 9:41 AM CDT Specimen Anatomical Collection Method / Collection Time Recei rehana Time (Source) Location / Volume Laterality Blood STRUCTURE OF RIGHT Venipuncture / 12/04/2021 9:18 11/22 9:24 UPPER LIMB / Unknown AM CDT AM CDT Unknown Jason Oorzco MD LAB - BLOOD ORDERABLES Performing Organization Address City/State/ZIP Code [place] [address] Care Lab [address] Lab (1st floor, no room [...] - BLOOD ORDERABLES Performing Organization Address City/[facility]/ZIP Code [place] [phone] Care Lab [address] Lab (1st floor, no room [...] City/State/ZIP Code [place] [address] Care Lab [address] Lab (1st floor, no room [...] City/State/ZIP Code [place] [address] Care Lab [address] Lab (1st floor, no room [...] - BLOOD ORDERABLES Performing Organization Address City/[facility]/ZIP Code [place] [address] Care Lab [address] Lab (1st floor, no room [...] - BLOOD ORDERABLES Performing Organization Address City/[facility]/[place] [address] Care Lab [address] Lab (1st floor, no room [...] LAB - BLOOD ORDERABLES Performing Organization Address [facility]/Z[place] [address] Care Lab [address] Lab (1st floor, no room [...] - BLOOD ORDERABLES Performing Organization Address City/[facility]/[place] [address] Care Lab [address] Lab (1st floor, no room [...] and gender (Yuli et al., NEJM, DOI: 10.1056/[id number]) Specimen Anatomical Collection Method / Collection Time Recei rehana Time (Source) Location / Volume Laterality Blood VENOUS LINE / Venipuncture / 12/04/2021 8:14 2 8:22 Unknown Unknown AM CDT AM CDT Jason Orzoco MD LAB - BLOOD ORDERABLES Performing Organization Address City/State/ZIP Code [place] [address] Care Lab [address] Lab (1st floor, no room number) EKG 12-lead, tracing only (12/04/2021 8:01 AM CDT) Component Value Ref Range Test Analysis Performed Pathologis t Method Time At Signature Systolic Blood mmHg RADIOLOGY Pressure RESULTS Diastolic Blood mmHg RADIOLOGY Pressure RESULTS Ventricular Rate 119 BPM RADIOLOGY RESULTS Atrial Rate 117 BPM RADIOLOGY RESULTS NE Interval 122 ms RADIOLOGY RESULTS QRS Duration 94 ms RADIOLOGY RESULTS QT 328 ms RADIOLOGY RESULTS QTc 461 ms RADIOLOGY RESULTS P [place] 35 degrees RADIOLOGY RESULTS R AXIS -19 degrees RADIOLOGY RESULTS T [place] 77 degrees RADIOLOGY RESULTS Interpretation Undetermined rhythm [...] by - EMERGENCY TARUN Mora, PHYSICIAN ([id number]), editorial clerk TATA ROMERO ([id number]) on 12/05/2021 9:26:19 AM Specimen Anatomical Collection [...] ER (KLOR-CON M) CR tablet 40 mEq ([facility] ED) 0828 (Given - Provider: Mable Valdez, OZZIE) 40 mEq, Oral, ONCE, On Mon12/07/21 at 09 00, For 1 dose, Potassium level 2.7 - 3 mmol/L Ordered from the Potassium replacement order set. DO NOT CRUSH, Potassium Replacement: Potassium level 2.7-3 mmol/L , Recheck: Potassium level 4 hours AFTER last oral dose sodium chloride (PF) 0.9% PF flush 3 mL 0715 (z Missed (do not use) - Provider: Mable Valdez RN - Reason: IV Infusing)1531 (z Missed (do not use) - Provider: Mable Valdez RN - Reason: IV Infusing) 0004 (Given - Provider: Sharifa Sunshine RN)0720 (z Missed (do not use) - Provider: Mable Valdez RN - Reason: IV Infusing)0827 (Given - Provider: Mable Valdez, OZZIE)1507 (z Missed (do not use) - Provider: Mable Valdez RN - Reason: IV Infusing) 0718 (z Missed (do not use) - Provider: Mable Valdez RN - Reason: IV Infusing) 3 mL, Intracatheter, EVERY 8 HOURS, Firs t dose on Mon12/04/21 at 1600, to lock peripheral IV dormant line 2315 (z Missed (do not use) - Provider: Sharifa Sunshine RN - Reason: [...] (COMPLETED) 0413 (New Bag - Provider: Kassandra Gillette, OZZIE)0621 (New Bag - Provider: Kassandra Gillette RN) [...] Valdez RN)1313 (New Bag - Provider: Mable Valdez RN) 9 mmol, Intravenous, EVERY 2 HOURS, [...] (New Bag - P rovider: Kassandra Gillette RN)195 (New Bag - Provider: Sharifa Sunshine, OZZIE)2003 (Rate/Dose Verify - Provider: Sharifa Sunshine, RN) 0236 (New Bag - Provider: Sharifa Sunshine, RN)0845 (Rate/Dose Change - Provider: Mable Valdez RN)211 (New Bag - Provider: Sharifa Sunshine RN) 0753 (Stopped - Provider: Mable Valdez , OZZIE) at 75 mL/hr, Intravenous, CONTINUOUS, St arting on 12/04/21 at 1600, Until Mon12/08/21 at 0744 PRN Medication Order 12/06/2021 12/07/2021 2021 acetaminophen (TYLENOL) tablet 650 mg 0005 (Given - Pr ovider: Kassandra Gillette RN)0621 (Given - Provider: Kassandra Gillette RN)1629 (Given - Provider: Mable Valdez RN)202 (Given - Provider: Sharifa Sunshine, OZZIE) 0828 (Given - Provider: Mable Valdez, OZZIE)1820 (Given - Provider: Mable Valdez RN) 0222 (Given - Provider: Sharifa Sunshine RN) [...] VANISHING SCE NT) 2.5 % topical gel 621 (Given - Provider: Kassandra Gillette RN)2203 (Given - Provider: Sharifa Sunshine RN) Topical, EVERY 6 HOURS PRN, moderate chey [...] Sunshine, OZZIE) 0458 (Given - Provider: Sharifa Sunshine RN)1407 (Given - Provider: Mable Valdez, RN)2111 (Given - Provider: Sharifa Sunshine, RN) 0803 (Given - Provider: Mable Valdez, RN) 1 tablet, Oral, EVERY 4 HOURS [...] after each naloxone dose. Consider transfer to [facility] if patient respiratory parameters hav e [...] documented as of this encounter Care Teams Civil Engineering Professor Relationship Specialty Start Date End Date Juan Farias, PCP - General Cardiovascular Disease 12/04/21 [address] [place] [id number] Denise Connell Physician Special Makeup Fx Artist Instructor Cardiovascular Disease 08/12/21 MARIETTA Watson [address] [place] [id number] Denise Connell Assigned Heart and 08/22/21 01/14/22 MARIETTA Watson Vascular Provider [address] [place] [id number] documented as of this encounter
--- OUTSIDE RECORDS SUMMARY | 2022-04-01 12:33 | XMS_ITS | Encounter Summary ---
:1960 Author Organization [place] Address [address] [place] [address] Care Team Providers Name Role Phone No Ref-Primary, Physician Primary Care Provider [phone] Denise Connell PA-C Unavailable [phone] Encounter Details Date Type Department Care Team Description 08/13/2021 Lab [facility] Heart Mixe d hyperlipidemia; [facility] [place] Essential hypertension; [address] diabetes mellitus without complication, without long-term current use of insulin (H) [address] [place] [address] Social History Tobacco Use [...] Address City/State/ZIP Code [place] [address] Care Lab [address] Lab (1st floor, no room number) [...] and gender (Yuli et al., [place], DOI: [id number]/[id number]) Specimen Anatomical Collection Method / Collection Time Recei rehana Time (Source) Location / Volume Laterality Blood STRUCTURE OF RIGHT Venipuncture / 08/13/2021 7:57 07/24 7:58 HAND / Unknown Unknown AM CDT AM CDT Juan Farias MD LAB - BLOOD ORDERABLES Performing Organization Address City/[facility]/[place] [address] Care Lab [address] Lab (1st floor, no room number) [...] LAB - BLOOD ORDERABLES Performing Organization Address City/[facility]/[place] [address] Care Lab [address] Lab (1st floor, no room number) [...] Address City/State/ZIP Code [place] [phone] Care Lab [address] Lab (1st floor, no room number) documented in this encounter Visit Diagnoses Diagnosis Mixed hyperlipidemia Essential hypertension Unspecified essential hypertension Type 2 diabetes mellitus without complic ation, without long-term current use of insulin (H) documented in this encounter Additional Health Concerns Infection Onset Date Last Indicated Resolved Time 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
--- OUTSIDE RECORDS SUMMARY | 2022-04-01 12:33 | XMS_ITS | Encounter Summary ---
:1960 Author Organization [place] Address [address] [place] [address] Care Team Providers Name Role Phone No Ref-Primary, Physician Primary Care Provider [phone] Juan Farias MD Unavailable Reason for Visit Reason Onset Date Comments Refill Request 05/05/2021 atorvastatin Encounter Details Date Type Department Care Team Description 05/05/2021 Refill [facility] Heart Juan Farias, Refill Request Clinic Annika HERBERT (atorvastatin) [address] [place] [address] [place] [id number] (Wo rk) Social History Tobacco Use Types [...] hyperlipidemia documented in this encounter Care Teams Budget Accountant Relationship Specialty Start Date End Date No Ref-Primary, Physician PCP - General 07/03/14 12/03/21 Juan Farias MD Assigned Heart and Vascular 04/04/[address] Provider [place] [id number] documented as of this encounter
--- OUTSIDE RECORDS SUMMARY | 2022-04-01 12:33 | XMS_ITS | Encounter Summary ---
:1960 Author Organization [place] Address [address] [place] [address] Care Team Providers Name Role Phone No Ref-Primary, Physician Primary Care Provider [phone] Juan Farias MD Unavailable Reason for Visit Reason Onset Date Comments Refill Request 05/12/2021 amlodipine Encounter Details Date Type Department Care Team Description 05/12/2021 Refill M [facility] Heart Juan Farias, Refill Request Clinic Annika HERBERT (amlodipine) [address] [place] [address] [place] [phone] (Wo rk) Social History Tobacco Use Types [...] hypertension documented in this encounter Care Teams Photo Tech Relationship Specialty Start Date End Date No Ref-Primary, Physician PCP - General 07/03/14 12/03/21 Juan Farias MD Assigned Heart and Vascular 04/04/21 [address] Provider [place] [id number] documented as of this encounter
--- OUTSIDE RECORDS SUMMARY | 2022-04-01 12:33 | XMS_ITS | Encounter Summary ---
:1960 Author Organization [place] Address [address] [place] [address] Care Team Providers Name Role Phone No Ref-Primary, Physician Primary Care Provider [phone] Denise Connell PA-C Unavailable [phone] Encounter Details Date Type Department Care Team [...] as of this encounter Care Teams Computer Networker Relationship Specialty Start Date End Date No Ref-Primary, PCP - General 07/03/14 12/03/21 Physician Denise Connell Physician Roofing Sales Representative Cardiovascular Disease 08/12/21 MARIETTA Watson [address] [facility] [address] [place] [address] documented as of this encounter
--- OUTSIDE RECORDS SUMMARY | 2022-04-01 12:33 | XMS_ITS | Encounter Summary ---
:1960 Author Organization [place] Address [address] [place] [address] Care Team Providers Name Role Phone No Ref-Primary, Physician Primary Care Provider [phone] Denise Connell PA-C Unavailable [phone] Denise Connell PA-C Unavailable [phone] Encounter Details Date Type Department Care Team Description 10/26/2021 [facility] Belia Bearden hypertension Heart Clinic Annika Bennett RN [address] [facility] [address] [place], [place] [address] Social History Tobacco Use Types [...] documented as of this encounter Care Teams Pipelines Manager Relationship Specialty Start Date End Date No Ref-Primary, PCP - General 07/03/14 12/03/21 Physician Denise Connell Physician Toolman Cardiovascular Disease 08/12/21 MARIETTA Watson [address] [facility] [address] [place] [id number] Denise Connell Assigned Heart and 08/22/21 01/14/22 MARIETTA Watson Vascular Provider [address] [place] [address] documented as of this encounter
--- OUTSIDE RECORDS SUMMARY | 2022-04-01 12:33 | XMS_ITS | Encounter Summary ---
:1960 Author Organization [place] Address [facility] [place] [address] Care Team Providers Name Role Phone No Ref-Primary, Physician Primary Care Provider [phone] Denise Connell PA-C Unavailable [phone] Reason for Referral Consultation (Routine: Next available opening) - Pending Review Specialty Diagnoses / Procedures Referred By Contact Refer red To Contact Cardiovascular Disease Diagnoses Essential hypertension Mixed hyperlipidemia Denise Connell Eric Ryan, Catherine, PA-C MD [address] [place] [address] [place] [address] Phone: Fax: Referral ID Status Reason Start Date Expiration Date Visits V isits Requested Authorized [id number] Pending 08/16/2021 08/16/2022 1 1 Review Reason for Visit Reason Comments Follow Up Follow up for HLD, and Htn r eview labs Encounter Details Date Type Department Care Team Description 08/16/2021 Office Visit [facility] Denise Connell hypertension (Primary Dx); Heart Clinic Annika Watson PA-C Mixed hyperlipidemia [address] [place] [place] [address] [place] [address] [phone] Social History Tobacco Use Types Packs/Day Years [...] vitamin bottles to your next appointment. Important [facility] telephone numbers for your reference: Cardiology Scheduling - [phone] Cardiology Clinic RN- [phone] [facility] Component Latest Ref Rng & [...] in follow up of: hypertension, dyslipidemia Primary experienced truck driver: Dr. Farias HPI: Juan Pablo Brown is [...] January of 2020 showed no evidence of LAEX by US. He remained hypertensive despite 10 [...] for further refills 90 tablet 3 ??? Vgwcdlmyd-Gpgmoupwdqi-Wvr D (OSTEO BI-FLEX ONE PER DAY PO) [...] Other Topics Concern ??? Parent/sibling w/ CABG, [place] or angioplasty before 65F 55M? No ??? [...] documented as of this encounter Care Teams On Car Supervisor Relationship Specialty Start Date End Date No Ref-Primary, PCP - General 07/03/14 12/03/21 Physician Denise Connell Physician Newsroom Intern Cardiovascular Disease 08/12/21 MARIETTA Watson [address] [facility] [address] [place] [address] documented as of this encounter
--- OUTSIDE RECORDS SUMMARY | 2022-04-01 12:33 | XMS_ITS | Encounter Summary ---
:1960 Author Organization [place] Address [address] [place] [address] Care Team Providers Name Role Phone No Ref-Primary, Physician Primary Care Provider [phone] Juan Farias MD Unavailable Reason for Visit Reason Onset Date Comments Refill Request 03/12/2020 Atorvastatin Encounter Details Date Type Department Care Team Description 03/12/2020 Refill M [facility] Juan Farias, Refill Request Clinic Idris HERBERT (Atorvastatin) [address] [place] [address] [place] [id number] (Wo rk) Social History Tobacco Use Types [...] with No / Unsure 03/11/2020 2:39 PM AUTOMOTIVE GLASS SPECIALIST someone who was confirmed or suspected to have Coronavirus / COVID-19? documented as of this encounter Plan of Treatment Not on filedocumented as of this encounter Visit Diagnoses Diagnosis Mixed hyperlipidemia documented in this encounter Additional Health Concerns Infection Onset Date Last Indicated Resolved Time MRSA-Contact IsolationComment: 0 04/26/2021 11:03 AM AUTOMOTIVE GLASS SPECIALIST Infection erroneous documented as of this encounter Care Teams Senior Physician Relationship Specialty Start Date End Date No Ref-Primary, Physician PCP - General 07/03/14 12/03/21 Juan Farias MD Assigned Heart and Vascular 02/14/2010/03 [address] Provider [place] [id number] documented as of this encounter
--- OUTSIDE RECORDS SUMMARY | 2022-04-01 12:33 | XMS_ITS | Encounter Summary ---
:1960 Author Organization [place] Address [address] [place] [address] Care Team Providers Name Role Phone Denise Connell PA-C Unavailable [phone] Denise Connell PA-C Unavailable [phone] Juan Farias MD Primary Care Provider Reason for Visit Reason Onset Date Comments Refill Request 12/17/2021 lipitor Encounter Details Date Type Department Care Team Description 12/17/2021 Refill [facility] Heart Denise Connell Re fill Request (lipitor) Clinic Annika Watson PA-C [address] [facility] [address] [place] [address] [address] [place] [address] [place] [address] [place] [address] (Wo rk) Social History [...] Weiner RN - 12/17/2021 9:10 AM CDT [facility] Cardiology Refill Guideline reviewed. Refill meets criteria. documented in this encounter Plan of Treatment Not on filedocumented as of this encounter Visit Diagnoses Diagnosis Mixed hyperlipidemia documented in this encounter Additional Health Concerns Infection Onset Date Last Indicated Resolved Time MRSA 05/13/2021 05/13/2021 documented as of this encounter Care Teams News Videographer Relationship Specialty Start Date End Date Juan Farias, PCP - General Cardiovascular Disease 12/04/21 [address] [place] [id number] Denise Connell Physician Library Sales Consultant Cardiovascular Disease 08/12/21 MARIETTA Watson [address] [place] [phone] Denise Connell Assigned Heart and 08/22/21 01/14/22 MARIETTA Watson Vascular Provider [address] [place] [phone] documented as of this encounter
--- OUTSIDE RECORDS SUMMARY | 2022-04-01 12:34 | XMS_ITS | Encounter Summary ---
:1960 Author Organization [place] Address [address] [place] [address] Care Team Providers Name Role Phone No Ref-Primary, Physician Primary Care Provider [phone] Juan Farias MD Unavailable Reason for Visit Reason Comments Results Encounter Details Date Type Department Care Team Description 03/12/2020 Care Coordination [facility] Heart Sabrina Montes, Results Clinic Lapaz RN [address] [facility] [address] [place] [address] Social History Tobacco Use Types [...] with No / Unsure 03/11/2020 2:39 PM STUDENT MINISTRY PASTOR someone who was confirmed or suspected to [...] BP update. Ashish HORNE February, 4:26 PM ENT MINISTRY PASTOR Larisa Montes RN - 03/12/2020 11:50 AM [...] Ashish HORNE March 17, 2020, 2:03 PM ENT MINISTRY PASTOR documented in this encounter Miscellaneous Notes Telephone Encounter - Juan Farias MD - 03/17/2020 10:51 AM CST Hi Larisa, as usual, I agree with you. I would recommend that he increase atorvastatin to 80 mg daily and Metoprolol Succinate to 50 mg daily. Recheck FLP in 3 months. Juan Farias ENT MINISTRY PASTOR Addendum Note - Larisa Montes RN - 03/12/2020 11:50 AM STUDENT MINISTRY PASTOR Addended by: LARISA MONTES on: 03/17/2020 02:06 PM Modules accepted: Orders, SmartSet ENT MINISTRY PASTOR documented in this encounter Plan of Treatment Not on filedocumented as of this encounter Visit Diagnoses Diagnosis Essential hypertension - Primary Unspecified essential hypertension Mixed hyperlipidemia documented in this encounter Additional Health Concerns Infection Onset Date Last Indicated Resolved Time MRSA-Contact IsolationComment: 0 04/26/2021 11:03 AM STUDENT MINISTRY PASTOR Infection erroneous documented as of this encounter Care Teams Claims Service Adjustor Relationship Specialty Start Date End Date No Ref-Primary, Physician PCP - General 07/03/14 12/03/21 Juan Farias MD Assigned Heart and Vascular 02/14/2010/03 [address] Provider [place] [address] documented as of this encounter
--- OUTSIDE RECORDS SUMMARY | 2022-04-01 12:34 | XMS_ITS | Encounter Summary ---
:1960 Author Organization [place] Address [address] [place] [address] Care Team Providers Name Role Phone No [...] with No / Unsure 02/24/2020 3:19 PM SALON SUPERVISOR someone who was confirmed or suspected to have Coronavirus / COVID-19? documented as of this encounter Plan of Treatment Not on filedocumented as of this encounter Visit Diagnoses Not on filedocumented in this encounter Additional Health Concerns Infection Onset Date Last Indicated Resolved Time MRSA-Contact IsolationComment: 0 04/26/2021 11:03 AM SALON SUPERVISOR Infection erroneous documented as of this encounter Care Teams Disaster Recovery Analyst Relationship Specialty Start Date End Date No Ref-Primary, Physician PCP - General 07/03/14 12/03/21 Juan Farias MD Assigned Heart and Vascular 02/14/2010/03 [address] Provider [place] [id number] documented as of this encounter
--- OUTSIDE RECORDS SUMMARY | 2022-04-01 12:34 | XMS_ITS | Encounter Summary ---
:1960 Author Organization [place] Address [address] [place] [address] Care Team Providers Name Role Phone No Ref-Primary, Physician Primary Care Provider [phone] Juan Farias MD Unavailable Encounter Details [...] Time MRSA-Contact IsolationComment: 0 04/26/2021 11:03 AM SALESPERSON FLORIST SUPPLIES Infection erroneous documented as of this encounter Care Teams Implementation Project Coordinator Relationship Specialty Start Date End Date No Ref-Primary, Physician PCP - General 07/03/14 12/03/21 Juan Farias MD Assigned Heart and Vascular 02/14/2010/03 [address] Provider [place] [id number] documented as of this encounter
--- OUTSIDE RECORDS SUMMARY | 2022-04-01 12:34 | XMS_ITS | Encounter Summary ---
:1960 Author Organization [place] Address [address] [place] [address] Care Team Providers Name Role Phone No Ref-Primary, Physician Primary Care Provider [phone] Juan Farias MD Unavailable Reason for Visit Reason Comments Results 02/14/20 renal US Encounter Details Date Type Department Care Team Description 02/17/2020 Care Coordination [facility] Kenzie Kenney (02/14/20 Heart Clinic Annika Hernández RN renal US) [address] [facility] [address] [place] [address] Social History Tobacco Use Types [...] with No / Unsure 02/24/2020 3:19 PM LOGGING ENGINEER someone who was confirmed or suspected to [...] to GUILHERME Morales RN 5:18 PM 02/17/2020 ING ENGINEER Edilia Trejo - 02/17/2020 5:10 PM CDT Sounds good ING ENGINEER Kenzie Kenney RN - 02/17/2020 5:10 PM [...] understands instructions. OZZ[place] Cook 9:56 AM 02/18/2020 ING ENGINEER documented in this encounter Plan of Treatment Not on filedocumented as of this encounter Results Basic metabolic panel (02/21/2020 2:52 PM CDT) P athologist Signature Sodium 134 133 - 144 02/21/2020 [facility] mmol/L 3:51 PM CDT [facility] Potassium 3.4 3.4 - 5.3 02/21/2020 [facility] mmol/L 3:51 PM [facility] Chloride 100 94 - 109 02/21/2020 [facility] mmol/L 3:51 PM [facility] Carbon Dioxide 26 20 - 32 02/21/2020 [facility] mmol/L 3:57 PM [facility] Anion Gap 8 3 - 14 02/21/2020 [facility] mmol/L 3:57 PM [facility] Glucose 95 70 - 99 02/21/2020 [facility] mg/dL 3:57 PM [facility] Urea Nitrogen 13 7 - 30 02/21/2020 [facility] mg/dL 3:57 PM [facility] Creatinine 1.04 0.66 - 02/21/2020 [facility] 1.25 mg/dL 3:57 PM [facility] GFR Estimate 79 >60 02/21/2020 [facility] mL/min/{1. 3:57 PM COUNT INCLUDES THE [facility] 73_m2} HOSPITAL Comment: Non GFR Calc Starting 04/10/2018, serum creatinine ba sed estimated GFR (eGFR) will be calculated using the Chronic Kidney Dise [facility] Epidemiology Collaboration (CKD-EPI) equation. GFR Estimate If >90 >60 mL/min/{1.73_m2} 02/21/2020 3: 57 PM [facility] Comment: GFR Calc Starting 04/10/2018, serum creatinine ba sed estimated GFR (eGFR) will be calculated using the Chronic Kidney Dise [facility] Epidemiology Collaboration (CKD-EPI) equation. Calcium 8.8 8.5 - 10.1 mg/dL 02/21/2020 3:57 PM [facility] Specimen Anatomical Collection Method Collection Time Receive d Time (Source) Location / / Volume Laterality Blood specimen 02/21/2020 2:52 PM 020 2:57 (specimen) CDT PM CDT Edilia Trejo APRN PACKING ROOM WORKER LAB - BLOOD ORDERA BLES Performing Organization Address City/State/ZIP Code Phon e Number M [facility] [address] [place], [place] [address] [employer] [address] [place], [place] [address] [facility] [phone] documented in this encounter Visit Diagnoses Diagnosis Essential hypertension - Primary Unspecified essential hypertension documented in this encounter Additional Health Concerns Infection Onset Date Last Indicated Resolved Time MRSA-Contact IsolationComment: 0 04/26/2021 11:03 AM LOGGING ENGINEER Infection erroneous documented as of this encounter Care Teams Electromatic Typist Relationship Specialty Start Date End Date No Ref-Primary, Physician PCP - General 07/03/14 12/03/21 Juan Farias MD Assigned Heart and Vascular 02/14/2010/03 [address] Provider [place] [id number] documented as of this encounter
--- OUTSIDE RECORDS SUMMARY | 2022-04-01 12:34 | XMS_ITS | Encounter Summary ---
:1960 Author Organization [place] Address [address] [place] [address] Care Team Providers Name Role Phone No Ref-Primary, Physician Primary Care Provider [phone] Reason for Visit Reason Onset Date Comments Refill Request 01/01/2020 Amlodipine Encounter Details Date Type Department Care Team Description 01/01/2020 Refill M [facility] Heart Jarrett, Juan Alegre, Refill Request Clinic Annika HERBERT (Amlodipine) [address] [facility] [address] [facility] [address] [place] [address] [place] [phone] ( rk) Social History Tobacco Use Types [...] Time MRSA-Contact IsolationComment: 0 04/26/2021 11:03 AM STOCK CONTROLLER Infection erroneous documented as of this encounter Care Teams Electrical Appliance Mechanic Relationship Specialty Start Date End Date No Ref-Primary, Physician PCP - General 07/03/14 12/03/21 documented as of this encounter
--- OUTSIDE RECORDS SUMMARY | 2022-04-01 12:34 | XMS_ITS | Encounter Summary ---
:1960 Author Organization [place] Address [address] [place] [address] Care Team Providers Name Role Phone No Ref-Primary, Physician Primary Care Provider [phone] Juan Farias MD Unavailable Encounter Details [...] Time MRSA-Contact IsolationComment: 0 04/26/2021 11:03 AM METER AND REGULATOR SHOP SUPERVISOR Infection erroneous documented as of this encounter Care Teams Social Service Technician Relationship Specialty Start Date End Date No Ref-Primary, Physician PCP - General 07/03/14 12/03/21 Juan Farias MD Assigned Heart and Vascular 02/14/2010/03 [address] Provider [place] [id number] documented as of this encounter
--- OUTSIDE RECORDS SUMMARY | 2022-04-01 12:34 | XMS_ITS | Encounter Summary ---
:1960 Author Organization [place] Address [address] [place] [address] Care Team Providers Name Role Phone No Ref-Primary, Physician Primary Care Provider [phone] Juan Farias MD Unavailable Encounter Details Date Type Department Care Team Description 03/11/2020 Orders Only [facility] Mixed hyperlipidemia [address] [place] [address] Social History Tobacco Use [...] with No / Unsure 03/11/2020 2:39 PM QUALITY CONTROL ASSISTANT someone who was confirmed or suspected to have Coronavirus / COVID-19? documented as of this encounter Plan of Treatment Not on filedocumented as of this encounter Procedures Procedure Name Priority Date/Time Associated Diagnosis Comme nts LIPID PROFILE Routine 03/11/2020 2:45 PM Mixed hyperlipidemia Results for this QUALITY CONTROL ASSISTANT procedure are i n the results section . ALT Routine 03/11/2020 2:45 PM Mixed hyperlipidemia R esults for this QUALITY CONTROL ASSISTANT procedure are i n the results section . documented in this encounter Results (ABNORMAL) Lipid Profile (03/11/2020 2:45 PM QUALITY CONTROL ASSISTANT) P athologist Signature Cholesterol 213 (H) <200 mg/dL 03/11/2020 [place] 3:46 PM [facility] Comment: Desirable: <200 mg/dl Triglycerides 134 <150 mg/dL 03/11/2020 3:46 PM QUALITY CONTROL ASSISTANT [facility] Comment: Fasting specimen HDL Cholesterol 70 >39 mg/dL 03/11/2020 3:49 PM [facility] LDL Cholesterol 116 (H) <100 mg/dL 03/11/2020 3:49 PM [facility] Comment: Above desirable: ??100-129 mg/dl Borderline High: ??130-159 mg/dL High: ? 160-189 mg/dL Very high: ? >189 mg/dl Non HDL Cholesterol 143 (H) <130 mg/dL 03/11/2020 3:49 PM [facility] Comment: Above Desirable: ??130-159 mg/dl Borderline high: ??160-189 mg/dl High: ? 190-219 mg/dl Very high: ? >219 mg/dl Specimen Anatomical Collection Method Collection Time Receive d Time (Source) Location / / Volume Laterality Blood specimen 03/11/2020 2:45 PM 020 2:48 (specimen) QUALITY CONTROL ASSISTANT PM QUALITY CONTROL ASSISTANT Juan Farias MD LAB - BLOOD ORDERABLES Performing Organization Address City/[facility]/ZIP Code Phon e Number M [facility] [address] [address] [facility] [address] [address], [facility] [phone] ALT (03/11/2020 2:45 PM QUALITY CONTROL ASSISTANT) P athologist Signature ALT 41 0 - 70 U/L 03/11/2020 [facility] 3:45 PM [facility] Specimen Anatomical Collection Method Collection Time Receive d Time (Source) Location / / Volume Laterality Blood specimen 03/11/2020 2:45 PM 020 2:48 (specimen) QUALITY CONTROL ASSISTANT PM QUALITY CONTROL ASSISTANT Juan Farias MD LAB - BLOOD ORDERABLES Performing Organization Address City/[facility]/ZIP Code Phon e Number M [facility] [address] [place], [place] [address] [facility] [address] [address] 7, [facility] [phone] documented in this encounter Visit Diagnoses Diagnosis Mixed hyperlipidemia documented in this encounter Additional Health Concerns Infection Onset Date Last Indicated Resolved Time MRSA-Contact IsolationComment: 0 04/26/2021 11:03 AM QUALITY CONTROL ASSISTANT Infection erroneous documented as of this encounter Care Teams Tar Heater Operator Relationship Specialty Start Date End Date No Ref-Primary, Physician PCP - General 07/03/14 12/03/21 Juan Farias MD Assigned Heart and Vascular 02/14/2010/03 [address] Provider [place] [address] documented as of this encounter
--- OUTSIDE RECORDS SUMMARY | 2022-04-01 12:34 | XMS_ITS | Encounter Summary ---
:1960 Author Organization [place] Address [address] [place] [address] Care Team Providers Name Role Phone No Ref-Primary, Physician Primary Care Provider Encounter Details Date Type Department Care Team Description 11/29/2018 Orders Only [facility] Heart Hype rlipidemia LDL goal <100; Clinic [facility] Elevated fasting glucose [address] [facility] [address] [place] [address] Social History Tobacco Use Types Packs/Day Years [...] 6.1 (H) 0 - 5.6 % 11/29/2018 [place] 11:22 AM CDT [facility] Comment: Normal <5.7% Prediabetes 5.7-6.4% ??Diab etes 6.5% or higher - adopted from ADA consensus guidelines. Specimen Anatomical Collection Method Collection Time Receive d Time (Source) Location / / Volume Laterality Blood specimen 11/29/2018 10:00 9 (specimen) AM CDT 10:01 AM CDT Juan Farias MD LAB - BLOOD ORDERABLES Performing Organization Address City/State/ZIP Code Phon e Number M [facility] [address] [place] [address] [facility] [address] [place] [place] [address], [place] [phone] (ABNORMAL) Basic metabolic panel (11/29/2018 9:59 AM CDT) P athologist Signature Sodium 137 136 - 145 11/29/2018 [facility] mmol/L 10:49 AM T [facility] [employer] [facility] Potassium 4.0 3.5 - 5.1 11/29/2018 [facility] mmol/L 10:49 AM T [email or web address] Chloride 102 98 - 107 11/29/2018 [facility] mmol/L 10:49 AM T [email or web address] Carbon Dioxide 27 23 - 29 11/29/2018 [facility] mmol/L 10:49 AM [facility] [employer] [facility] Anion Gap 12 6 - 17 11/29/2018 [facility] mmol/L 10:49 AM [facility] [employer] Glucose 120 (H) 70 - 105 11/29/2018 [facility] mg/dL 10:49 AM [facility] [employer] [facility] Comment: Fasting specimen Urea Nitrogen 15 7 - 30 mg/dL 11/29/2018 10:49 AM [facility] Creatinine 1.11 0.70 - 1.30 11/29/2018 10:49 AM [facility] mg/dL T [employer] GFR Estimate 69 >60 11/29/2018 10:49 AM [facility] mL/min/{1.73_m [employer] 2} GFR Estimate If 83 >60 11/29/2018 10:49 AM [facility] Black mL/min/{1.73_m [facility] 2} Calcium 9.7 8.5 - 10.5 11/29/2018 10:49 AM [facility] mg/dL [facility] Specimen Anatomical Collection Method Collection Time Receive d Time (Source) Location / / Volume Laterality Blood specimen 11/29/2018 9:59 AM 019 (specimen) CDT 10:00 AM CDT Juan Farias MD LAB - BLOOD ORDERABLES Performing Organization Address City/State/ZIP Code Phon e Number [facility] [address] [place] [address] [address] (ABNORMAL) Lipid Profile (11/29/2018 9:59 AM CDT) P athologist Signature Cholesterol 145 <200 mg/dL 11/29/2018 [facility] AT 10:49 AM [facility] Triglycerides 152 (H) <150 mg/dL 11/29/2018 [facility] 10:49 AM [facility] Comment: Fasting specimen Borderline high: ??150-199 mg/dl High: ? 200-499 mg/dl Very high: ? >499 mg/dl HDL Cholesterol 43 >39 mg/dL 11/29/2018 10:49 AM [facility] LDL Cholesterol 72 <100 mg/dL 11/29/2018 10:49 AM [facility] Calculated [facility] Comment: Desirable: <100 mg/dl Non HDL Cholesterol 102 <130 mg/dL 11/29/2018 10:49 AM [facility] Specimen Anatomical Collection Method Collection Time Receive d Time (Source) Location / / Volume Laterality Blood specimen 11/29/2018 9:59 AM 019 (specimen) CDT 10:00 AM CDT Juan Farias MD LAB - BLOOD ORDERABLES Performing Organization Address City/[facility]/ZIP Code Phon e Number [facility] [address] [place] [address] [address] ALT (11/29/2018 9:59 AM CDT) P athologist Signature ALT 13 5 - 30 U/L 11/29/2018 [facility] AT 10:49 AM CDT [facility] Specimen Anatomical Collection Method Collection Time Receive d Time (Source) Location / / Volume Laterality Blood specimen 11/29/2018 9:59 AM 019 (specimen) CDT 10:00 AM CDT Juan Farias MD LAB - BLOOD ORDERABLES Performing Organization Address City/State/ZIP Code Phon e Number [facility] [address] [place] [address] [address] documented in this encounter Visit Diagnoses Diagnosis Hyperlipidemia LDL goal <100 Other and unspecified hyperlipidemia Elevated fasting glucose Impaired fasting glucose documented in this encounter Additional Health Concerns Infection Onset Date Last Indicated Resolved Time MRSA-Contact IsolationComment: 0 04/26/2021 11:03 AM CHEMICAL SALES REPRESENTATIVE Infection erroneous documented as of this encounter Care Teams Brick Extruder Operator Relationship Specialty Start Date End Date No Ref-Primary, Physician PCP - General 07/03/14 12/03/21 documented as of this encounter
--- OUTSIDE RECORDS SUMMARY | 2022-04-01 12:34 | XMS_ITS | Encounter Summary ---
:1960 Author Organization [place] Address [address] [place] [address] Care Team Providers Name Role Phone No Ref-Primary, Physician Primary Care Provider Encounter Details Date Type Department Care Team Description 09/27/2017 Orders Only [facility] Heart Elev ated fasting glucose Clinic [address] [place] [address] Social History Tobacco Use [...] 6.1 (H) 0 - 5.6 % 09/27/2017 [place] 3:55 PM T [facility] Comment: Normal <5.7% Prediabetes 5.7-6.4% ??Diab etes 6.5% or higher - adopted from ADA consensus guidelines. Specimen Anatomical Collection Method Collection Time Receive d Time (Source) Location / / Volume Laterality Blood specimen 09/27/2017 3:21 PM 018 3:26 (specimen) CDT PM CDT Juan Farias MD LAB - BLOOD ORDERABLES Performing Organization Address City/State/ZIP Code Phon e Number [facility] [address] [place], [place] [address] [facility] [address] [phone] documented in this encounter Visit Diagnoses Diagnosis Elevated fasting glucose Impaired fasting glucose documented in this encounter Additional Health Concerns Infection Onset Date Last Indicated Resolved Time MRSA-Contact IsolationComment: 0 04/26/2021 11:03 AM GANG LEADER Infection erroneous documented as of this encounter Care Teams Deckhand Engineer Relationship Specialty Start Date End Date No Ref-Primary, Physician PCP - General 07/03/14 12/03/21 documented as of this encounter
--- OUTSIDE RECORDS SUMMARY | 2022-04-01 12:34 | XMS_ITS | Encounter Summary ---
:1960 Author Organization [place] Address [address] [place] [address]. [place] [address] Care Team Providers Name Role Phone No Ref-Primary, Physician Primary Care Provider [phone] Reason for Visit Reason Comments Hypertension Encounter Details Date Type Department Care Team Description 02/04/2020 Care Coordination [facility] Brian Madrid, Hypertension Clinic Annkia HORNE [address] [facility] [address] [place] [address] Social History Tobacco Use Types [...] get his blood pressure reading from today. rAabella Madrid RN on 02/04/2020 at 12:25 PM BP Received: Today Message Contents Deysi Milton RN P [facility] Heart Team 7 ?? Dr. Max spoke [...] Time MRSA-Contact IsolationComment: 0 04/26/2021 11:03 AM DECK LID FITTER Infection erroneous documented as of this encounter Care Teams Sweatband Maker Relationship Specialty Start Date End Date No Ref-Primary, Physician PCP - General 07/03/14 documented as of this encounter
--- OUTSIDE RECORDS SUMMARY | 2022-04-01 12:34 | XMS_ITS | Encounter Summary ---
:1960 Author Organization [place] Address [address] [place] [address] Care Team Providers Name Role Phone No Ref-Primary, Physician Primary Care Provider [phone] Encounter Details Date Type Department Care [...] Time MRSA-Contact IsolationComment: 0 04/26/2021 11:03 AM WINDOW FRAMER Infection erroneous documented as of this encounter Care Teams Set Up Mechanic Stamping Machines Relationship Specialty Start Date End Date No Ref-Primary, Physician PCP - General 07/03/14 12/03/21 documented as of this encounter
--- OUTSIDE RECORDS SUMMARY | 2022-04-01 12:34 | XMS_ITS | Encounter Summary ---
:1960 Author Organization [place] Address [address] [place] [address]. [place] [address] Care Team Providers Name Role Phone No Ref-Primary, Physician Primary Care Provider [phone] Reason for Visit Reason Comments Annual Visit FU Cardiac testing lab Encounter Details Date Type Department Care Team Description 11/29/2018 Office Visit [facility] Feliz Roy Hyperlipid emia LDL goal <100 (Primary Dx); Heart Clinic Annika Alegre MD Essential hypertension; [address] [facility] [address] [facility] Elev ed fasting glucose [address] [place] [address] [place] [address] Social History Tobacco Use Types Packs/Day Years [...] Brown in Cardiology Clinic today [facility] the [facility] Heart [facility] in [place] for reevaluation of hypertension and dyslipidemia. In [...] of coronary artery disease. FELIZ ROY MD, [facility] [place]: JOELLE Name: ELIJAH BROWN MRN: [id number] Account: [id number] : 1960 Service Date: 11/29/2018 Document: [id number] Feliz Roy MD - 11/29/2018 11:15 AM CDT HPI and Plan: See dictation Orders Placed This Encounter Procedures ??? Basic metabolic panel ??? Lipid Profile ??? ALT ??? Hemoglobin A1c ??? Follow-Up with Talent Acquisition Assistant No orders of the defined types were [...] on phone: None Gets together: None Attends jainism service: None Active member of club or organization: None Attends meetings of clubs or organizations: None Relationship status: None ??? Intimate partner violence: Fear of current or ex partner: None Emotionally abused: None Physically abused: None Forced sexual activity: None Other Topics Concern ??? Parent/sibling w/ CABG, SC or angioplasty before 65F 55M? No ??? [...] 5.7 (H) 0 - 5.6 % 01/27/2020 [place] 4:00 PM CDT [facility] Comment: Normal <5.7% Prediabetes 5.7-6.4% ??Diab etes 6.5% or higher - adopted from ADA consensus guidelines. Specimen Anatomical Collection Method Collection Time Receive d Time (Source) Location / / Volume Laterality Blood specimen 01/27/2020 2:58 PM 020 3:03 (specimen) CDT PM CDT Feliz Roy MD LAB - BLOOD ORDERABLES Performing Organization Address City/State/ZIP Code Phon e Number M [facility] [address] [place] [address] [phone] [facility] [address] [place] [address], [place] [phone] ALT (01/27/2020 2:58 PM CDT) athologist Signature ALT 46 0 - 70 U/L 01/27/2020 [facility] 3:54 PM CDT HOSPITAL Specimen Anatomical Collection Method Collection Time Receive d Time (Source) Location / / Volume Laterality Blood specimen 01/27/2020 2:58 PM 020 3:03 (specimen) CDT PM CDT Feliz Roy MD LAB - BLOOD ORDERABLES Performing Organization Address City/State/ZIP Code Phon e Number M [facility] [address] [place], [place] [address] [facility] [address] [place], [place] [address], [facility] [phone] (ABNORMAL) Lipid Profile (01/27/2020 2:58 PM CDT) athologist Signature Cholesterol 222 (H) <200 mg/dL 01/27/2020 [place] 3:54 PM [facility] Comment: Desirable: <200 mg/dl Triglycerides 99 <150 mg/dL 01/27/2020 3:54 PM CDT [facility] Comment: Fasting specimen HDL Cholesterol 87 >39 mg/dL 01/27/2020 3:54 PM [facility] LDL Cholesterol 115 (H) <100 mg/dL 01/27/2020 3:54 PM [facility] Comment: Above desirable: ??100-129 mg/dl Borderline High: ??130-159 mg/dL High: ? 160-189 mg/dL Very high: ? >189 mg/dl Non HDL Cholesterol 135 (H) <130 mg/dL 01/27/2020 3:54 PM CDT [facility] Comment: Above Desirable: ??130-159 mg/dl Borderline high: ??160-189 mg/dl High: ? 190-219 mg/dl Very high: ? >219 mg/dl Specimen Anatomical Collection Method Collection Time Receive d Time (Source) Location / / Volume Laterality Blood specimen 01/27/2020 2:58 PM 020 3:03 (specimen) CDT PM CDT Feliz Roy MD LAB - BLOOD ORDERABLES Performing Organization Address City/State/ZIP Code Phon e Number M [facility] [address] [address] [facility] [address] [address], [facility] [phone] Basic metabolic panel (01/27/2020 2:58 PM CDT) athologist Signature Sodium 133 133 - 144 01/27/2020 [place] mmol/L 3:46 PM [facility] Potassium 3.7 3.4 - 5.3 01/27/2020 [place] mmol/L 3:46 PM [facility] Chloride 101 94 - 109 01/27/2020 [place] mmol/L 3:46 PM [facility] Carbon Dioxide 24 20 - 32 01/27/2020 [place] mmol/L 3:54 PM [facility] Anion Gap 8 3 - 14 01/27/2020 [place] mmol/L 3:54 PM [facility] Glucose 85 70 - 99 01/27/2020 [place] mg/dL 3:54 PM [facility] Comment: Fasting specimen Urea Nitrogen 13 7 - 30 mg/dL 01/27/2020 3:54 PM [facility] Creatinine 1.10 0.66 - 1.25 mg/dL 01/27/2020 3:54 PM [facility] GFR Estimate 74 >60 01/27/2020 3:54 PM [facility] mL/min/{1.73_m2} HOSPITAL Comment: Non GFR Calc Starting 04/10/2018, serum creatinine ba sed estimated GFR (eGFR) will be calculated using the Chronic Kidney Dise [facility] Epidemiology Collaboration (CKD-EPI) equation. GFR Estimate If 86 >60 mL/min/{1.73_m2} 01/27/2020 3: 54 PM [facility] Comment: GFR Calc Starting 04/10/2018, serum creatinine ba sed estimated GFR (eGFR) will be calculated using the Chronic Kidney Dise [facility] Epidemiology Collaboration (CKD-EPI) equation. Calcium 8.8 8.5 - 10.1 mg/dL 01/27/2020 3:54 PM [facility] Specimen Anatomical Collection Method Collection Time Receive d Time (Source) Location / / Volume Laterality Blood specimen 01/27/2020 2:58 PM 020 3:03 (specimen) CDT PM CDT Feliz Roy MD LAB - BLOOD ORDERABLES Performing Organization Address City/State/ZIP Code Phon e Number M [facility] [address] [place], [place] [address] [facility] [address] [phone] documented in this encounter Visit Diagnoses Diagnosis Hyperlipidemia LDL goal <100 - Primary Other and unspecified hyperlipidemia Essential hypertension Unspecified essential hypertension Elevated fasting glucose Impaired fasting glucose documented in this encounter Additional Health Concerns Infection Onset Date Last Indicated Resolved Time MRSA-Contact IsolationComment: 0 04/26/2021 11:03 AM GLOVE MAKER Infection erroneous documented as of this encounter Care Teams Motor Grader Operator Relationship Specialty Start Date End Date No Ref-Primary, Physician PCP - General 07/03/14 12/03/21 documented as of this encounter
--- OUTSIDE RECORDS SUMMARY | 2022-04-01 12:34 | XMS_ITS | Encounter Summary ---
:1960 Author Organization [place] Address [address] [place] [address] Care Team Providers Name Role Phone No Ref-Primary, Physician Primary Care Provider [phone] Juan Farias MD Unavailable Encounter Details [...] with No / Unsure 03/11/2020 2:39 PM ANIMAL ATTENDANT someone who was confirmed or suspected to have Coronavirus / COVID-19? documented as of this encounter Plan of Treatment Not on filedocumented as of this encounter Visit Diagnoses Not on filedocumented in this encounter Additional Health Concerns Infection Onset Date Last Indicated Resolved Time MRSA-Contact IsolationComment: 0 04/26/2021 11:03 AM ANIMAL ATTENDANT Infection erroneous documented as of this encounter Care Teams Director Of Patient Financial Services Relationship Specialty Start Date End Date No Ref-Primary, Physician PCP - General 07/03/14 12/03/21 Juan Farias MD Assigned Heart and Vascular 02/14/2010/03 [address] Provider [place] [id number] documented as of this encounter
--- OUTSIDE RECORDS SUMMARY | 2022-04-01 12:34 | XMS_ITS | Encounter Summary ---
:1960 Author Organization [place] Address [address] [place] [address] Care Team Providers Name Role Phone No Ref-Primary, Physician Primary Care Provider [phone] Juan Farias MD Unavailable Encounter Details Date Type Department Care Team Description 02/21/[address] [facility] [place] [id number] [place] [address] [address] [place] [address] Social History Tobacco Use [...] Signature Sodium 134 133 - 144 02/21/2020 [place] mmol/L 3:51 PM [facility] Potassium 3.4 3.4 - 5.3 02/21/2020 [place] mmol/L 3:51 PM [facility] Chloride 100 94 - 109 02/21/2020 [place] mmol/L 3:51 PM [facility] Carbon Dioxide 26 20 - 32 02/21/2020 [place] mmol/L 3:57 PM [facility] Anion Gap 8 3 - 14 02/21/2020 [place] mmol/L 3:57 PM [facility] Glucose 95 70 - 99 02/21/2020 [place] mg/dL 3:57 PM [facility] Urea Nitrogen 13 7 - 30 02/21/2020 [place] mg/dL 3:57 PM [facility] Creatinine 1.04 0.66 - 02/21/2020 [place] 1.25 mg/dL 3:57 PM [facility] GFR Estimate 79 >60 02/21/2020 [place] mL/min/{1. 3:57 PM [facility] 73_m2} HOSPITAL Comment: Non GFR Calc Starting 04/10/2018, serum creatinine ba sed estimated GFR (eGFR) will be calculated using the Chronic Kidney Dise [facility] Epidemiology Collaboration (CKD-EPI) equation. GFR Estimate If >90 >60 mL/min/{1.73_m2} 02/21/2020 3: 57 PM [facility] Comment: GFR Calc Starting 04/10/2018, serum creatinine ba sed estimated GFR (eGFR) will be calculated using the Chronic Kidney Dise [facility] Epidemiology Collaboration (CKD-EPI) equation. Calcium 8.8 8.5 - 10.1 mg/dL 02/21/2020 3:57 PM [facility] Specimen Anatomical Collection Method Collection Time Receive d Time (Source) Location / / Volume Laterality Blood specimen 02/21/2020 2:52 PM 020 2:57 (specimen) CDT PM CDT Edilia Trejo APRN LOGISTICS SUPERVISOR LAB - BLOOD ORDERA BLES Performing Organization Address City/State/ZIP Code Phon e Number M [facility] [address] [place], [place] [address] [facility] [address] [address] [phone] documented in this encounter Visit Diagnoses Diagnosis Essential hypertension Unspecified essential hypertension documented in this encounter Additional Health Concerns Infection Onset Date Last Indicated Resolved Time MRSA-Contact IsolationComment: 0 04/26/2021 11:03 AM IMPLEMENTATION DIRECTOR Infection erroneous documented as of this encounter Care Teams Digital Retoucher Relationship Specialty Start Date End Date No Ref-Primary, Physician PCP - General 07/03/14 12/03/21 Juan Farias MD Assigned Heart and Vascular 02/14/2010/03 [address] Provider [place] [id number] documented as of this encounter
--- OUTSIDE RECORDS SUMMARY | 2022-04-01 12:34 | XMS_ITS | Encounter Summary ---
:1960 Author Organization [place] Address [address] [place] [address] Care Team Providers Name Role Phone No Ref-Primary, Physician Primary Care Provider [phone] Reason for Visit Reason Onset Date Comments Refill Request 11/30/2017 continues on atorvas tatin 40mg Encounter Details Date Type Department Care Team Description 11/30/2017 Refill [facility] [place], Juan Alegre, Refill Request (continues Clinic Annika HERBERT on atorvastatin 40mg) [address] [facility] [address] [facility] [address] [place] [phone] [place] [phone] (Wo rk) Social History Tobacco Use Types [...] MRSA-Contact IsolationComment: 0 04/26/2021 11:03 AM ENVIRONMENTAL AIR SPECIALIST Infection erroneous documented as of this encounter Care Teams Bus Aide Relationship Specialty Start Date End Date No Ref-Primary, Physician PCP - General 07/03/14 12/03/21 documented as of this encounter
--- OUTSIDE RECORDS SUMMARY | 2022-04-01 12:34 | XMS_ITS | Encounter Summary ---
:1960 Author Organization [place] Address [address] [place] [address]. [place] [address] Care Team Providers Name Role Phone No Ref-Primary, Physician Primary Care Provider [phone] Encounter Details Date Type Department Care Team Description 11/27/2018 Orders Only [facility] Rafaela Florentino Hyperl ipidemia LDL goal Heart [facility] Idris Mora RN <100 (Primary Dx) [address] [facility] [address] [place] [address] Social [...] ALT 13 5 - 30 U/L 11/29/2018 [facility] HEART AT 10:49 AM CDT [facility] Specimen Anatomical Collection Method Collection Time Receive d Time (Source) Location / / Volume Laterality Blood specimen 11/29/2018 9:59 AM 019 (specimen) CDT 10:00 AM CDT Juan Farias MD LAB - BLOOD ORDERABLES Performing Organization Address City/State/ZIP Code Phon e Number [facility] HEART AT [facility] [address] [facility] [place] [address] [address] (ABNORMAL) Lipid Profile (11/29/2018 9:59 AM CDT) athologist Signature Cholesterol 145 <200 mg/dL 11/29/2018 [facility] HEART AT 10:49 AM CDT [facility] Triglycerides 152 (H) <150 mg/dL 11/29/2018 [facility] AT 10:49 AM [facility] Comment: Fasting specimen Borderline high: ??150-199 mg/dl High: ? 200-499 mg/dl Very high: ? >499 mg/dl HDL Cholesterol 43 >39 mg/dL 11/29/2018 10:49 AM [facility] AT [facility] LDL Cholesterol 72 <100 mg/dL 11/29/2018 10:49 AM [facility] AT Calculated [facility] Comment: Desirable: <100 mg/dl Non HDL Cholesterol 102 <130 mg/dL 11/29/2018 10:49 AM P HEART AT [facility] Specimen Anatomical Collection Method Collection Time Receive d Time (Source) Location / / Volume Laterality Blood specimen 11/29/2018 9:59 AM 019 (specimen) CDT 10:00 AM CDT Juan Farias MD LAB - BLOOD ORDERABLES Performing Organization Address City/State/ZIP Code Phon e Number [facility] AT [facility] [address] [place] [address] [address] (ABNORMAL) Basic metabolic panel (11/29/2018 9:59 AM CDT) P athologist Signature Sodium 137 136 - 145 11/29/2018 [facility] AT mmol/L 10:49 AM [facility] Potassium 4.0 3.5 - 5.1 11/29/2018 [facility] AT mmol/L 10:49 AM T [facility] Chloride 102 98 - 107 11/29/2018 [facility] AT mmol/L 10:49 AM T [facility] Carbon Dioxide 27 23 - 29 11/29/2018 [facility] AT mmol/L 10:49 AM T [facility] Anion Gap 12 6 - 17 11/29/2018 [facility] AT mmol/L 10:49 AM [facility] Glucose 120 (H) 70 - 105 11/29/2018 [facility] AT mg/dL 10:49 AM [facility] Comment: Fasting specimen Urea Nitrogen 15 7 - 30 mg/dL 11/29/2018 10:49 AM [facility] Creatinine 1.11 0.70 - 1.30 11/29/2018 10:49 AM [facility] RT AT mg/dL T [facility] GFR Estimate 69 >60 11/29/2018 10:49 AM [facility] RT AT mL/min/{1.73_m T [facility] 2} GFR Estimate If 83 >60 11/29/2018 10:49 AM [facility] AT Black mL/min/{1.73_m [facility]} Calcium 9.7 8.5 - 10.5 11/29/2018 10:49 AM [facility] AT mg/dL [facility] Specimen Anatomical Collection Method Collection Time Receive d Time (Source) Location / / Volume Laterality Blood specimen 11/29/2018 9:59 AM 019 (specimen) CDT 10:00 AM CDT Juan Farias MD LAB - BLOOD ORDERABLES Performing Organization Address City/State/ZIP Code Phon e Number [facility] [address] [place] [address] [address] documented in this encounter Visit Diagnoses Diagnosis Hyperlipidemia LDL goal <100 - Primary Other and unspecified hyperlipidemia documented in this encounter Additional Health Concerns Infection Onset Date Last Indicated Resolved Time MRSA-Contact IsolationComment: 0 04/26/2021 11:03 AM NETWORK ENGINEER ADMINISTRATOR Infection erroneous documented as of this encounter Care Teams Pin Machine Operator Relationship Specialty Start Date End Date No Ref-Primary, Physician PCP - General 07/03/14 12/03/21 documented as of this encounter
--- OUTSIDE RECORDS SUMMARY | 2022-04-01 12:34 | XMS_ITS | Encounter Summary ---
:1960 Author Organization [place] Address [address] [place] [address] Care Team Providers Name Role Phone No Ref-Primary, Physician Primary Care Provider [phone] Reason for Visit Reason Onset Date Comments Refill Request 12/23/2019 Atorvastatin Encounter Details Date Type Department Care Team Description 12/23/2019 Refill [facility] Jarrett, Juan Alegre, Refill Request Clinic Annika HERBERT (Atorvastatin) [address] [facility] [address] [facility] [address] [place] [address] [place] [address] ( rk) Social History Tobacco Use Types [...] Time MRSA-Contact IsolationComment: 0 04/26/2021 11:03 AM CAMPUS AIDE Infection erroneous documented as of this encounter Care Teams Wire Communications Engineer Relationship Specialty Start Date End Date No Ref-Primary, Physician PCP - General 07/03/14 12/03/21 documented as of this encounter
--- OUTSIDE RECORDS SUMMARY | 2022-04-01 12:34 | XMS_ITS | Encounter Summary ---
:1960 Author Organization [place] Address [address] [place] [address] Care Team Providers Name Role Phone No Ref-Primary, Physician Primary Care Provider Encounter Details Date Type Department Care Team Description 09/15/2017 Orders Only [facility] Heart Mixe d hyperlipidemia; [facility] [place] Anna mcmullen Benign essential hypertensio n [address] [facility] [address] [place] [address] Social History Tobacco Use Types Packs/Day Years [...] [facility] mmol/L 9:16 AM CDT [facility] Potassium 4.1 3.5 - 5.1 09/15/2017 [facility] AT mmol/L 9:16 AM CDT [facility] Chloride 103 98 - 107 09/15/2017 [facility] AT mmol/L 9:16 AM CDT [facility] Carbon Dioxide 25 23 - 29 09/15/2017 [facility] AT mmol/L 9:16 AM T [facility] Anion Gap 14.1 6 - 17 09/15/2017 [facility] AT mmol/L 9:16 AM T [facility] Glucose 126 (H) 70 - 105 09/15/2017 [facility] AT mg/dL 9:16 AM T [facility] Comment: Fasting specimen Urea Nitrogen 14 7 - 30 mg/dL 09/15/2017 9:16 AM [facility] AT [facility] Creatinine 1.22 0.70 - 1.30 09/15/2017 9:16 AM [facility] HEAR T AT mg/dL T [facility] GFR Estimate 62 >60 09/15/2017 9:16 AM [facility] HEAR T AT mL/min/1.7m2 T [facility] GFR Estimate If 75 >60 09/15/2017 9:16 AM [facility] H EART AT Black mL/min/1.7m2 T [facility] Calcium 9.7 8.5 - 10.5 09/15/2017 9:16 AM [facility] AT mg/dL T [facility] Specimen Anatomical Collection Method Collection Time Receive d Time (Source) Location / / Volume Laterality Blood specimen 09/15/2017 8:20 AM 018 8:21 (specimen) CDT AM CDT Juan Farisa MD LAB - BLOOD ORDERABLES Performing Organization Address City/State/ZIP Code Phon e Number [facility] AT [facility] [address] [place] [address] [address] ALT (09/15/2017 8:20 AM CDT) P athologist Signature ALT 8 5 - 30 U/L 09/15/2017 [facility] AT 9:16 AM T [facility] Specimen Anatomical Collection Method Collection Time Receive d Time (Source) Location / / Volume Laterality Blood specimen 09/15/2017 8:20 AM 018 8:21 (specimen) CDT AM CDT Juan Farias MD LAB - BLOOD ORDERABLES Performing Organization Address City/State/ZIP Code Phon e Number [facility] [address] [place] [address] [address] Lipid Profile (09/15/2017 8:20 AM CDT) P athologist Signature Cholesterol 163 <200 mg/dL 09/15/2017 [facility] AT 9:16 AM CDT [facility] Triglycerides 119 <150 mg/dL 09/15/2017 [facility] AT 9:16 AM T [facility] Comment: Fasting specimen HDL Cholesterol 46 >39 mg/dL 09/15/2017 9:16 AM [facility] EART AT [facility] LDL Cholesterol 93 <100 mg/dL 09/15/2017 9:16 AM [facility] AT Calculated [facility] Comment: Desirable: <100 mg/dl Non HDL Cholesterol 117 <130 mg/dL 09/15/2017 9:16 AM [facility] HEART AT [facility] Specimen Anatomical Collection Method Collection Time Receive d Time (Source) Location / / Volume Laterality Blood specimen 09/15/2017 8:20 AM 018 8:21 (specimen) CDT AM CDT Juan Farias MD LAB - BLOOD ORDERABLES Performing Organization Address City/State/ZIP Code Phon e Number [facility] [address] [place] [address] [address] documented in this encounter Visit Diagnoses Diagnosis Mixed hyperlipidemia Benign essential hypertension Essential hypertension, benign documented in this encounter Additional Health Concerns Infection Onset Date Last Indicated Resolved Time MRSA-Contact IsolationComment: 0 04/26/2021 11:03 AM CASH APPLICATION CLERK Infection erroneous documented as of this encounter Care Teams Securities Sales Associate Relationship Specialty Start Date End Date No Ref-Primary, Physician PCP - General 07/03/14 12/03/21 documented as of this encounter
--- OUTSIDE RECORDS SUMMARY | 2022-04-01 12:34 | XMS_ITS | Encounter Summary ---
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
--- OUTSIDE RECORDS SUMMARY | 2022-04-01 12:34 | XMS_ITS | Encounter Summary ---
:1960 Author Organization [facility] Address [address] [place] [address] Care Team Providers Name Role Phone No Ref-Primary, Physician Primary Care Provider [phone] Reason for Visit Reason Onset Date Comments Refill Request 04/23/2019 Amlodipine 10mg Encounter Details Date Type Department Care Team Description 04/23/2019 Refill [facility] Heart Jarrett, Juan Alegre, Refill Request Clinic Annika HERBERT (Amlodipine 10mg) [address] [facility] [address] [facility] [address] [place] [address] [place] [id number] ([facility]) Social History Tobacco Use Types Packs/Day [...] MRSA-Contact IsolationComment: 0 04/26/2021 11:03 AM CHIEF KNOWLEDGE OFFICER Infection erroneous documented as of this encounter Care Teams Soda Drier Feeder Relationship Specialty Start Date End Date No Ref-Primary, Physician PCP - General 07/03/14 12/03/21 documented as of this encounter
--- OUTSIDE RECORDS SUMMARY | 2022-04-01 12:34 | XMS_ITS | Encounter Summary ---
:1960 Author Organization [place] Address [address] [place] [address] Care Team Providers Name Role Phone No Ref-Primary, Physician Primary Care Provider [phone] Reason for Visit Reason Onset Date Comments Refill Request 07/18/2019 atorvastatin Encounter Details Date Type Department Care Team Description 07/18/2019 Refill [facility] Jarrett, Juan Alegre, Refill Request Clinic Annika HERBERT (atorvastatin) [address] [facility] [address] [facility] [address] [place] [address] [place] [id number] ( rk) Social History Tobacco Use Types [...] Time MRSA-Contact IsolationComment: 0 04/26/2021 11:03 AM 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
--- OUTSIDE RECORDS SUMMARY | 2022-04-01 12:34 | XMS_ITS | Encounter Summary ---
:1960 Author Organization [place] Address [facility] [place] [address] Care Team Providers Name Role Phone No Ref-Primary, Physician Primary Care Provider [phone] Reason for Referral (Routine) - Closed Specialty Diagnoses / Procedures Referred By Contact Refer red To Contact Diagnoses Mixed hyperlipidemia Feliz Roy MD [address] [place] [address] Referral ID Status Reason Start Date Expiration Date Visits Requ ested Visits Authorized [id number] Closed 01/30/2020 01/29/2021 1 1 Reason for Visit Reason Comments Annual Visit Results lab Encounter Details Date Type Department Care Team Description 01/30/2020 Office Visit [facility] Feliz Roy Essen tial hypertension (Primary Dx); Heart Clinic Idris HEBRERT Mixed hyperlipidemia; [address] [facility] [address] Type 2 diabetes mellitus without complication, without long-term current use of insulin (H) [facility] [address] [place] [address] [place] [address] [phone] Social History Tobacco Use Types Packs/Day Years [...] Elijah Brown in Cardiology Clinic today at [facility] Cardiology in [place] for reevaluation of hypertension and dyslipidemia. He [...] office in a year. FELIZ ROY MD, [facility] [place]: Name: ELIJAH BROWN Account: [id number] : 1960 Service Date: 01/30/2020 Document: [id number] Feliz Roy MD - 01/30/2020 2:15 PM CDT HPI and Plan: See dictation Orders Placed This Encounter Procedures ??? Lipid Profile ??? ALT ??? Lipid Profile ??? ALT ??? Basic metabolic panel ??? Hemoglobin A1c ??? Follow-Up with Food Service Coordinator Orders Placed This Encounter Medications ??? VITAMIN [...] on phone: None Gets together: None Attends zoroastrian service: None Active member of club or [...] Referral Routine Mixed hyperlipidemia Expec jacques: 11/30/2021 Food Service Coordinator (Approximate), Expires: 2022 documented as of this [...] Address City/State/ZIP Code [place] [address] Care Lab [address] Lab (1st floor, no room number) [...] and gender (Yuli et al., NEJM, DOI: 10.1056/[id number]) Specimen Anatomical Collection Method / Collection Time Recei rehana Time (Source) Location / Volume Laterality Blood STRUCTURE OF RIGHT Venipuncture / 08/13/2021 7:57 04/05/2021 7:58 HAND / Unknown Unknown AM CDT AM CDT Feliz Roy MD LAB - BLOOD ORDERABLES Performing Organization Address City/State/ZIP Code Ph[place] [phone] Care Lab [address] Lab (1st floor, no room number) [...] City/State/ZIP Code Ph[place] [phone] Care Lab [address] Lab (1st floor, no room number) [...] Address City/State/ZIP [place] [address] Care Lab [address] [facility] Lab (1st floor, no room number) ALT (03/11/2020 2:45 PM EDGER TECHNICIAN) athologist Signature ALT 41 0 - 70 U/L 03/11/2020 [facility] 3:[address] [facility] Specimen Anatomical Collection Method Collection Time Receive d Time (Source) Location / / Volume Laterality Blood specimen 03/11/2020 2:45 PM 020 2:48 (specimen) EDGER TECHNICIAN PM EDGER TECHNICIAN Feliz Roy MD LAB - BLOOD ORDERABLES Performing Organization Address City/[facility]/ZIP [facility] Phon e Number [facility] [address] [place], [place] [address] [facility] [address] [place] [address] [facility] [phone] (ABNORMAL) Lipid Profile (03/11/2020 2:45 PM EDGER TECHNICIAN) athologist Signature Cholesterol 213 (H) <200 mg/dL 03/11/2020 [place] 3:46 PM [facility] Comment: Desirable: <200 mg/dl Triglycerides 134 <150 mg/dL 03/11/2020 3:46 PM EDGER TECHNICIAN [facility] Comment: Fasting specimen HDL Cholesterol 70 >39 mg/dL 03/11/2020 3:[address] [facility] LDL Cholesterol 116 (H) <100 mg/dL 03/11/2020 3:49 PM [facility] Comment: Above desirable: ??100-129 mg/dl Borderline High: ??130-159 mg/dL High: ? 160-189 mg/dL Very high: ? >189 mg/dl Non HDL Cholesterol 143 (H) <130 mg/dL 03/11/2020 3:49 PM EDGER TECHNICIAN [facility] Comment: Above Desirable: ??130-159 mg/dl Borderline high: ??160-189 mg/dl High: ? 190-219 mg/dl Very high: ? >219 mg/dl Specimen Anatomical Collection Method Collection Time Receive d Time (Source) Location / / Volume Laterality Blood specimen 03/11/2020 2:45 PM 020 2:48 (specimen) EDGER TECHNICIAN PM EDGER TECHNICIAN Feliz Roy MD LAB - BLOOD ORDERABLES Performing Organization Address City/State/ZIP Code Phon e Number M [facility] [address] [place] [address] [facility] [address] [phone] documented in this encounter Visit Diagnoses Diagnosis Essential hypertension - Primary Unspecified essential hypertension Mixed hyperlipidemia Type 2 diabetes mellitus without complic ation, without long-term current use of insulin (H) documented in this encounter Additional Health Concerns Infection Onset Date Last Indicated Resolved Time MRSA-Contact IsolationComment: 0 04/26/2021 11:03 AM EDGER TECHNICIAN Infection erroneous documented as of this encounter Care Teams Care Transport Nurse Relationship Specialty Start Date End Date No Ref-Primary, Physician PCP - General 07/03/14 12/03/21 documented as of this encounter
--- OUTSIDE RECORDS SUMMARY | 2022-04-01 12:34 | XMS_ITS | Encounter Summary ---
:1960 Author Organization [place] Address [address] [place] [address] Care Team Providers Name Role Phone No Ref-Primary, Physician Primary Care Provider [phone] Juan Farias MD Unavailable Reason for Referral Diagnostic Imaging Ultrasound (Routine) - Closed Specialty Diagnoses / Procedures Referred By Contact Refer red To Contact Radiology. Diagnoses Essential hypertension Edilia Trejo Ultrasound [facility] Procedures US Renal Complete w Doppler Complete ROOSEVELT Chapman CNP [address] [address] NO INFO AVAILABLE [address] 02/10/2022 [place] [address] Phone: Fax: Referral ID Status Reason Start Date Expiration Date Visits Requ ested Visits Authorized [id number] Closed 02/05/2020 02/04/2021 1 1 Reason for Visit Diagnostic Imaging Ultrasound (Routine) - Closed Specialty Diagnoses / Procedures Referred By Contact Refer red To Contact Radiology. Diagnoses Essential hypertension Edilia Trejo Ultrasound Rs[facility] Procedures US Renal Complete w Doppler Complete ROOSEVELT Chapman SHAREPOINT DESIGNER DEVELOPER [address] [address] NO INFO AVAILABLE [address] 02/10/2022 [place] [address] Phone: Fax: Referral ID Status Reason Start Date Expiration Date Visits Requ ested Visits Authorized [id number] Closed 02/05/2020 02/04/2021 1 1 Encounter Details Date Type Department Care Team Description 02/14/[address] [facility] Specialty Edilia Chapman APRN [facility] Imaging SHAREPOINT DESIGNER DEVELOPER [address] [place] [address] AVAILABLE [place], [place] 02/10/2022 [address] Social History Tobacco Use [...] Take 81 mg by 0 mouth daily Odrnnjpyv-Nkdwtplzeae-Nqp D Take 1 tablet by 0 (OSTEO [...] hydronephrosis. JASON BANG MD Edilia Trejo APRN SHAREPOINT DESIGNER DEVELOPER IMG ORDERABLES documented in this encounter Visit Diagnoses Diagnosis Essential hypertension Unspecified essential hypertension documented in this encounter Additional Health Concerns Infection Onset Date Last Indicated Resolved Time MRSA-Contact IsolationComment: 0 04/26/2021 11:03 AM STILE RIPSAW OPERATOR Infection erroneous documented as of this encounter Care Teams Director Of Sports Medicine Relationship Specialty Start Date End Date No Ref-Primary, Physician PCP - General 07/03/14 12/03/21 Juan Farias MD Assigned Heart and Vascular 02/14/2010/03 [address] Provider [place] [address] documented as of this encounter
--- OUTSIDE RECORDS SUMMARY | 2022-04-01 12:34 | XMS_ITS | Encounter Summary ---
:1960 Author Organization [place] Address [address] [place] [address] Care Team Providers Name Role Phone No Ref-Primary, Physician Primary Care Provider [phone] Encounter Details Date Type Department Care Team Description 01/27/2020 Orders Only [facility] Heart Elev ated fasting glucose; [facility] Hyperlipidemia LDL goal <100 ; [address] [facility] [address] [place] [address] Social History Tobacco Use Types [...] Signature Sodium 133 133 - 144 01/27/2020 [place] mmol/L 3:46 PM [facility] Potassium 3.7 3.4 - 5.3 01/27/2020 [place] mmol/L 3:46 PM [facility] Chloride 101 94 - 109 01/27/2020 [place] mmol/L 3:46 PM [facility] Carbon Dioxide 24 20 - 32 01/27/2020 [place] mmol/L 3:54 PM [facility] Anion Gap 8 3 - 14 01/27/2020 [place] mmol/L 3:54 PM [facility] Glucose 85 70 - 99 01/27/2020 [place] mg/dL 3:54 PM [facility] Comment: Fasting specimen Urea Nitrogen 13 7 - 30 mg/dL 01/27/2020 3:54 PM [facility] Creatinine 1.10 0.66 - 1.25 mg/dL 01/27/2020 3:54 PM [facility] GFR Estimate 74 >60 01/27/2020 3:54 PM [facility] mL/min/{1.73_m2} [facility] Comment: Non GFR Calc Starting 04/10/2018, serum creatinine ba sed estimated GFR (eGFR) will be calculated using the Chronic Kidney Dise [facility] Epidemiology Collaboration (CKD-EPI) equation. GFR Estimate If 86 >60 mL/min/{1.73_m2} 01/27/2020 3: 54 PM [facility] Comment: GFR Calc Starting 04/10/2018, serum creatinine ba sed estimated GFR (eGFR) will be calculated using the Chronic Kidney Dise [facility] Epidemiology Collaboration (CKD-EPI) equation. Calcium 8.8 8.5 - 10.1 mg/dL 01/27/2020 3:54 PM [facility] Specimen Anatomical Collection Method Collection Time Receive d Time (Source) Location / / Volume Laterality Blood specimen 01/27/2020 2:58 PM 020 3:03 (specimen) CDT PM CDT Juan Farias MD LAB - BLOOD ORDERABLES Performing Organization Address City/State/ZIP Code Phon e Number M [place] [address] [place], [place] [address] [facility] [address] [place], [place] [address], [place] [phone] (ABNORMAL) Lipid Profile (01/27/2020 2:58 PM CDT) athologist Signature Cholesterol 222 (H) <200 mg/dL 01/27/2020 [place] 3:54 PM [facility] Comment: Desirable: <200 mg/dl Triglycerides 99 <150 mg/dL 01/27/2020 3:54 PM CDT [facility] Comment: Fasting specimen HDL Cholesterol 87 >39 mg/dL 01/27/2020 3:54 PM [facility] LDL Cholesterol 115 (H) <100 mg/dL 01/27/2020 3:54 PM [facility] Comment: Above desirable: ??100-129 mg/dl Borderline High: ??130-159 mg/dL High: ? 160-189 mg/dL Very high: ? >189 mg/dl Non HDL Cholesterol 135 (H) <130 mg/dL 01/27/2020 3:[address] [facility] Comment: Above Desirable: ??130-159 [...] City/State/ZIP Code Phon e Number [facility] [address] [place], [place] [address] [facility] [address] [place], [place] [address], [place] [phone] ALT (01/27/2020 2:58 PM CDT) athologist Signature ALT 46 0 - 70 U/L 01/27/2020 [facility] 3:54 PM [facility] Specimen Anatomical Collection Method Collection Time Receive d Time (Source) Location / / Volume Laterality Blood specimen 01/27/2020 2:58 PM 020 3:03 (specimen) CDT PM CDT Juan Farias MD LAB - BLOOD ORDERABLES Performing Organization Address City/State/ZIP Code Phon e Number M [facility] [address] [place], [place] [address] [facility] [address] [place], [place] [address] [facility] [phone] (ABNORMAL) Hemoglobin A1c (01/27/2020 2:58 PM CDT) P athologist Signature Hemoglobin A1C 5.7 (H) 0 - 5.6 % 01/27/2020 [place] 4:00 PM CDT [facility] Comment: Normal <5.7% Prediabetes 5.7-6.4% ??Diab etes 6.5% or higher - adopted from ADA consensus guidelines. Specimen Anatomical Collection Method Collection Time Receive d Time (Source) Location / / Volume Laterality Blood specimen 01/27/2020 2:58 PM 020 3:03 (specimen) CDT PM CDT Juan Farias MD LAB - BLOOD ORDERABLES Performing Organization Address City/[facility]/ZIP Code Phon e Number M [facility] [address] [address] [phone] [facility] [address] [address], [facility] [phone] documented in this encounter Visit Diagnoses Diagnosis Elevated fasting glucose Impaired fasting glucose Hyperlipidemia LDL goal <100 Other and unspecified hyperlipidemia Essential hypertension Unspecified essential hypertension documented in this encounter Additional Health Concerns Infection Onset Date Last Indicated Resolved Time MRSA-Contact IsolationComment: 0 04/26/2021 11:03 AM OR ASSISTANT Infection erroneous documented as of this encounter Care Teams Sequins Stringer Relationship Specialty Start Date End Date No Ref-Primary, Physician PCP - General 07/03/14 12/03/21 documented as of this encounter
--- OUTSIDE RECORDS SUMMARY | 2022-04-01 12:34 | XMS_ITS | Encounter Summary ---
:1960 Author Organization [place] Address [address] [place] [address] Care Team Providers Name Role Phone No Ref-Primary, Physician Primary Care Provider [phone] Reason for Visit Reason Onset Date Comments Refill Request 04/29/2019 Amlodipine Encounter Details Date Type Department Care Team Description 04/29/2019 Refill M [facility] Jarrett, Juan Alegre, Refill Request Clinic Annika HERBERT (Amlodipine) [address] [facility] [address] [facility] [address] [place] [address] [place] [id number] ( rk) Social History Tobacco Use Types [...] IsolationComment: 0 04/26/2021 11:03 AM CLINICAL LABORATORY MANAGER Infection erroneous documented as of this encounter Care Teams Base Filler Operator Relationship Specialty Start Date End Date No Ref-Primary, Physician PCP - General 07/03/14 12/03/21 documented as of this encounter
--- OUTSIDE RECORDS SUMMARY | 2022-04-01 12:34 | XMS_ITS | Encounter Summary ---
:1960 Author Organization [place] Address [address] [place] [address] Care Team Providers Name Role Phone No Ref-Primary, Physician Primary Care Provider [phone] Reason for Referral Diagnostic Imaging Ultrasound (Routine) - Closed Specialty Diagnoses / Procedures Referred By Contact Refer red To Contact Radiology. Diagnoses Essential hypertension Radha Trejo Rh Ultrasound [facility] Procedures US Renal Complete w Doppler Complete ROOSEVELT Chapman FLEET OPERATIONS MANAGER [address] [facility] NO INFO AVAILABLE [address] 02/10/2022 [place] [address] Phone: Fax: Referral ID Status Reason Start Date Expiration Date Visits Requ ested Visits Authorized [id number] Closed 02/05/2020 02/04/2021 1 1 Reason for Visit Reason Comments Follow Up Hypertension Encounter Details Date Type Department Care Team Description 02/05/2020 Virtual Visit [facility] Ghada Trejo [facility] Heart Clinic Annika Chapman APRN hypertension (Primary [address] [facility] FLEET OPERATIONS MANAGER Dx) [address] NO INFO [place] [address] AVAILABLE [phone] 02/10/2022 Social History Tobacco Use Types Packs/Day [...] be resent to: Text to cell phone: [phone] Will anyone else be joining your video [...] used for Video Visit: Clotilde Trejo APRN FLEET OPERATIONS MANAGER documented in this encounter Plan of [...] hydronephrosis. GILMA BANG MD Radha Trejo [facility]N [facility] ORDERABLES documented in this encounter Visit Diagnoses Diagnosis Essential hypertension - Primary Unspecified essential hypertension Essential hypertension Unspecified essential hypertension documented in this encounter Additional Health Concerns Infection Onset Date Last Indicated Resolved Time MRSA-Contact IsolationComment: 0 04/26/2021 11:03 AM RAILROAD COMMISSIONER Infection erroneous documented as of this encounter Care Teams Biochemical Development Engineer Relationship Specialty Start Date End Date No Ref-Primary, Physician PCP - General 07/03/14 12/03/21 documented as of this encounter
--- OUTSIDE RECORDS SUMMARY | 2022-04-01 12:34 | XMS_ITS | Encounter Summary ---
:1960 Author Organization [place] Address [address] [place] [address] Care Team Providers Name Role Phone No Ref-Primary, Physician Primary Care Provider [phone] Reason for Visit Reason Onset Date Comments Refill Request 12/06/2017 amlodipine Encounter Details Date Type Department Care Team Description 12/06/2017 Refill M [facility] Heart Jarrett, Juan Alegre, Refill Request Clinic Annika HERBERT (amlodipine) 6[address] [facility] 6[address] [facility] [address] [place] [address] [place] [id number] ( rk) Social History Tobacco Use Types [...] Time MRSA-Contact IsolationComment: 0 04/26/2021 11:03 AM PASTRY ASSISTANT Infection erroneous documented as of this encounter Care Teams Property Administrator Relationship Specialty Start Date End Date No Ref-Primary, Physician PCP - General 07/03/14 12/03/21 documented as of this encounter
--- OUTSIDE RECORDS SUMMARY | 2022-04-01 12:34 | XMS_ITS | Encounter Summary ---
:1960 Author Organization [place] Address [address] [place] [address] Care Team Providers Name Role Phone No Ref-Primary, Physician Primary Care Provider [phone] Encounter Details Date Type Department Care [...] Time MRSA-Contact IsolationComment: 0 04/26/2021 11:03 AM NURSERY SCHOOL TEACHER Infection erroneous documented as of this encounter Care Teams Design Manager Relationship Specialty Start Date End Date No Ref-Primary, Physician PCP - General 07/03/14 12/03/21 documented as of this encounter
--- OUTSIDE RECORDS SUMMARY | 2022-04-01 12:35 | XMS_ITS | Encounter Summary ---
:1960 Author Organization [place] Address [address] [place] [address] Care Team Providers Name Role Phone No Ref-Primary, Physician Primary Care Provider Reason for Visit Reason Onset Date Comments Results 08/04/2016 BMP Encounter Details Date Type Department Care Team Description 08/04/2016 Telephone [facility] Raghu Pandey, Results (BMP) Clinic Annika HORNE [address] [facility] [address] [place] [address] Social History Tobacco Use Types Packs/Day Years [...] showed a K+ of 5.2 and a Paint Coating Machine Operator of 1.57. Per Dr. Farias , [...] Time Signature Sodium 137 133 - 144 [place] mmol/L [facility] Potassium 4.0 3.4 - 5.3 [place] mmol/L [facility] Chloride 104 94 - 109 [place] mmol/L [facility] Carbon Dioxide 26 20 - 32 [place] mmol/L [facility] Anion Gap 7 3 - 14 [place] mmol/L [facility] Glucose 88 70 - 99 [place] mg/dL [facility] Urea Nitrogen 19 7 - 30 [place] mg/dL [facility] Creatinine 1.31 (H) 0.66 - [place] 1.25 mg/dL [facility] GFR Estimate 57 (L) >60 [place] mL/min/1.[address] Comment: Non GFR Calc GFR Estimate If Black 69 >60 mL/min/1.7m2 F [facility] Comment: GFR Calc Calcium 9.0 8.5 - 10.1 mg/dL [facility] Specimen Anatomical Collection Method Collection Time Receive d Time (Source) Location / / Volume Laterality Blood specimen 08/12/2016 3:03 PM 017 3:04 (specimen) CDT PM CDT Juan Farias MD LAB - BLOOD ORDERABLES Performing Organization Address City/State/ZIP Code Phon e Number M [facility] [address] [place] [address] [facility] [address] [phone] documented in this encounter Visit Diagnoses Diagnosis Benign essential hypertension - Primary Essential hypertension, benign documented in this encounter Additional Health Concerns Infection Onset Date Last Indicated Resolved Time MRSA-Contact IsolationComment: 0 04/26/2021 11:03 AM PROCESS TANK TENDER Infection erroneous documented as of this encounter Care Teams Costume Designer Relationship Specialty Start Date End Date No Ref-Primary, Physician PCP - General 07/03/14 12/03/21 documented as of this encounter
--- OUTSIDE RECORDS SUMMARY | 2022-04-01 12:35 | XMS_ITS | Encounter Summary ---
:1960 Author Organization [place] Address [address] [place] [address]. [place] [address] Care Team Providers Name Role Phone No Ref-Primary, Physician Primary Care Provider [phone] Reason for Visit Reason Onset Date Comments Refill Request 06/01/2015 Lipitor, Lisinopril OV 08/05/2015 Encounter Details Date Type Department Care Team Description 06/01/2015 Refill [facility] Heart JarrettJuan ceron, Refill Request (Lipitor, Clinic Annika HERBERT Lisinopril OV 08/05/2015) [address] [place] [address] [place], [place] [address] (Wo rk) Social History Tobacco Use Types [...] Time MRSA-Contact IsolationComment: 0 04/26/2021 11:03 AM TENTER FRAME BACK TENDER Infection erroneous documented as of this encounter Care Teams Wire Photo Operator News Relationship Specialty Start Date End Date No Ref-Primary, Physician PCP - General 07/03/14 12/03/21 documented as of this encounter
--- OUTSIDE RECORDS SUMMARY | 2022-04-01 12:35 | XMS_ITS | Encounter Summary ---
:1960 Author Organization [place] Address [facility] [place] [address] Care Team Providers Name Role Phone No Ref-Primary, Physician Primary Care Provider [phone] Reason for Visit Reason Comments Annual Visit hypertension and dyslipidem ia FU Cardiac testing lab - Closed Specialty Diagnoses / Procedures Referred By Contact Refer red To Contact Diagnoses Mixed hyperlipidemia Feliz Roy MD [address] [place] [address] Referral ID Status Reason Start Date Expiration Date Visits Requ ested Visits Authorized [id number] Closed 08/04/2017 08/04/2018 1 1 Encounter Details Date Type Department Care Team Description 09/15/[address] [facility] Feliz Roy Mixed hype rlipidemia (Primary Dx); Heart Clinic [place] Alegre MD Benign essential hypertension; [address] [facility] [address] Elevat ed fasting glucose [facility] [address] [place] [address] [place] [id number] Social History Tobacco Use Types Packs/Day Years [...] Brown in Cardiology Clinic today at the [facility] in [place] for re-evaluation of hypertension and dyslipidemia. In [...] A1c level in 1 month in the [facility] and get back to him about [...] again in 1 year. FELIZ ROY MD, [facility] MT: [place] Name: ELIJAH BROWN Account: [id number] : 1960 Service Date: 09/15/2017 Document: [id number] Feliz Roy MD - 09/15/2017 9:45 AM CDT HPI and Plan: See dictation Orders Placed This Encounter Procedures ??? Basic metabolic panel ??? Lipid Profile ??? ALT ??? Hemoglobin A1c ??? Hemoglobin A1c ??? Follow-Up with Hearing Care Practitioner No orders of the defined types were [...] Roy MD [address] [place] [address] documented in this encounter Plan of Treatment Not on filedocumented as of this encounter Results (ABNORMAL) Hemoglobin A1c (11/29/2018 10:00 AM CDT) athologist Signature Hemoglobin A1C 6.1 (H) 0 - 5.6 % 11/29/2018 [place] 11:22 AM CDT [facility] Comment: Normal <5.7% [...] Phon e Number M [facility] [address] [place] [place] [address] [phone] [facility] [address] [place] [address] [address], [facility] [phone] (ABNORMAL) Hemoglobin A1c (09/27/2017 3:21 PM CDT) athologist Signature Hemoglobin A1C 6.1 (H) 0 - 5.6 % 09/27/2017 [place] 3:55 PM CDT [facility] Comment: Normal <5.7% Prediabetes 5.7-6.4% ??Diab etes 6.5% or higher - adopted from ADA consensus guidelines. Specimen Anatomical Collection Method Collection Time Receive d Time (Source) Location / / Volume Laterality Blood specimen 09/27/2017 3:21 PM 018 3:26 (specimen) CDT PM CDT Feliz Roy MD LAB - BLOOD ORDERABLES Performing Organization Address City/State/ZIP Code Phon e Number M 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
--- OUTSIDE RECORDS SUMMARY | 2022-04-01 12:35 | XMS_ITS | Encounter Summary ---
:1960 Author Organization [place] Address [address] [place] [address] Care Team Providers Name Role Phone No Ref-Primary, Physician Primary Care Provider Encounter Details Date Type Department Care Team Description 08/29/2016 Telephone [facility] Heart Clinic Daryl Medina RN [place] [id number] [facility] [address] [place] [address] Social History Tobacco Use Types [...] Time MRSA-Contact IsolationComment: 0 04/26/2021 11:03 AM LAWN SERVICE SUPERVISOR Infection erroneous documented as of this encounter Care Teams Senior Business Manager Relationship Specialty Start Date End Date No Ref-Primary, Physician PCP - General 07/03/14 12/03/21 documented as of this encounter
--- OUTSIDE RECORDS SUMMARY | 2022-04-01 12:35 | XMS_ITS | Encounter Summary ---
:1960 Author Organization [place] Address [address] [place] [address] Care Team Providers Name Role Phone No Ref-Primary, Physician Primary Care Provider Encounter Details Date Type Department Care Team Description 08/04/2016 Orders Only [facility] Juan Farias, Mixed hyperlipidemia; Heart Clinic [place] HERBERT Essential hypertension Laboratory [address] [facility] [address] [place] [id number] [facility] [place] [address] [place] [address] [place] [address] [phone] Social History Tobacco Use Types Packs/Day Years [...] 136 - 145 [facility] mmol/L [facility] Potassium 5.2 (H) 3.5 - 5.1 [facility] mmol/L [facility] Chloride 105 98 - 107 [facility] mmol/L [facility] Carbon Dioxide 26 23 - 29 [facility] mmol/L [facility] Anion Gap 12.2 6 - 17 [facility] mmol/L [facility] Glucose 118 (H) 70 - 105 [facility] mg/dL [facility] Urea Nitrogen 22 7 - 30 [facility] mg/dL [facility] A Creatinine 1.57 (H) 0.70 - [facility] 1.30 mg/dL [facility] GFR Estimate 46 (L) >60 [facility] mL/min/1.7 [facility] m2 A GFR Estimate If 56 (L) >60 [facility] [place] mL/min/1.7 [facility] m2 A Calcium 9.4 8.5 - 10.5 [facility] mg/dL [facility] A Specimen Anatomical Collection Method Collection Time Receive d Time (Source) Location / / Volume Laterality Blood specimen 08/04/2016 7:15 AM 017 8:38 (specimen) CDT AM CDT Juan Farias MD LAB - BLOOD ORDERABLES Performing Organization Address City/[facility]/ZIP Code Phon e Number [facility] [address] [place] [address] [address] ALT (08/04/2016 7:15 AM CDT) [...] City/[facility]/ZIP Code Phon e Number [facility] [address] [place] [address] [address] Lipid Profile (08/04/2016 7:15 AM CDT) athologist Signature Cholesterol 146 <200 mg/dL [facility] AT [facility] Triglycerides 64 <150 mg/dL [facility] Comment: Fasting specimen HDL Cholesterol 43 >39 mg/dL [facility] AT [facility] LDL Cholesterol Calculated 90 <100 mg/dL [facility] Comment: Desirable: <100 mg/dl Non HDL Cholesterol 103 <130 mg/dL [facility] AT [facility] Specimen Anatomical Collection Method Collection Time Receive d Time (Source) Location / / Volume Laterality Blood specimen 08/04/2016 7:15 AM 017 7:16 (specimen) CDT AM CDT Juan Farias MD LAB - BLOOD ORDERABLES Performing Organization Address City/State/ZIP Code Phon e Number [facility] [address] [place] [address] [address] documented in this encounter Visit Diagnoses Diagnosis Mixed hyperlipidemia Essential hypertension Unspecified essential hypertension documented in this encounter Additional Health Concerns Infection Onset Date Last Indicated Resolved Time MRSA-Contact IsolationComment: 0 04/26/2021 11:03 AM 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
--- OUTSIDE RECORDS SUMMARY | 2022-04-01 12:35 | XMS_ITS | Encounter Summary ---
:1960 Author Organization [place] Address [address] [place] [address] Care Team Providers Name Role Phone No Ref-Primary, Physician Primary Care Provider Reason for Referral - Closed Specialty Diagnoses / Procedures Referred By Contact Refer red To Contact Diagnoses Mixed hyperlipidemia Feliz Roy MD [address] [place] [address] Referral ID Status Reason Start Date Expiration Date Visits Requ ested Visits Authorized [id number] Closed 08/04/2017 08/04/2018 1 1 Reason for Visit Reason Comments Hyperlipidemia - Closed Specialty Diagnoses / Procedures Referred By Contact Refer red To Contact Diagnoses Mixed hyperlipidemia Feliz Roy MD [address] [place] [address] Referral ID Status Reason Start Date Expiration Date Visits Requ ested Visits Authorized [id number] Closed 08/04/2016 08/04/2017 1 1 Encounter Details Date Type Department Care Team Description 08/04/2016 Office Visit [facility] Feliz Roy Essential hypertension (Primary Dx); Heart Clinic Annika Alegre MD Mixed hyperlipidemia [address] [facility] [address] [facility] [address] [place] [address] [place] [address] [phone] Social History Tobacco Use Types Packs/Day Years [...] back in Cardiology Clinic today at the [facility] in [place] for reevaluation of hypertension and dyslipidemia. Mr. [...] have refilled his medications. FELIZ ROY MD, [facility] MT: Name: ELIJAH BROWN Account: [id number] : 1960 Service Date: 08/04/2016 Document: [id number] Feliz Roy MD - 08/04/2016 8:15 AM CDT HPI and Plan: See dictation Orders Placed This Encounter Procedures ??? Basic metabolic panel ??? Lipid Profile ??? ALT ??? Follow-Up with Ticketing Agent Orders Placed This Encounter Medications ??? omeprazole [...] [facility] [address] [place] [address] documented in this encounter Plan of Treatment Scheduled Referrals Name Type Priority Associated Diagnoses Order S chedule Follow-Up with Referral Routine Mixed hyperlipidemia Expec jacques: 08/04/2017 Ticketing Agent (Approximate), Expires: 2017 documented as of this encounter Results (ABNORMAL) Basic metabolic panel (08/04/2016 7:15 AM CDT) [facility] Signature Sodium 138 136 - 145 [facility] mmol/L [facility] A Potassium 5.2 (H) 3.5 - 5.1 [facility] mmol/L [facility] A Chloride 105 98 - 107 [facility] mmol/L [facility] A Carbon Dioxide 26 23 - 29 [facility] mmol/L [facility] A Anion Gap 12.2 6 - 17 [facility] mmol/L [facility] A Glucose 118 (H) 70 - 105 [facility] mg/dL [facility] A Urea Nitrogen 22 7 - 30 [facility] mg/dL [facility] A Creatinine 1.57 (H) 0.70 - [facility] 1.30 mg/dL [facility] A GFR Estimate 46 (L) >60 [facility] mL/min/1.7 [facility] m2 A GFR Estimate If 56 (L) >60 [facility] Black mL/min/1.7 [facility] m2 A Calcium 9.4 8.5 - 10.5 [facility] mg/dL [facility] A Specimen Anatomical Collection Method Collection Time Receive d Time (Source) Location / / Volume Laterality Blood specimen 08/04/2016 7:15 AM 017 8:38 (specimen) CDT AM CDT Feliz Roy MD LAB - BLOOD ORDERABLES Performing Organization Address City/State/ZIP Code Phon e Number [facility] [address] [place] [address] [address] documented in this encounter Visit Diagnoses Diagnosis Essential hypertension - Primary Unspecified essential hypertension Mixed hyperlipidemia documented in this encounter Additional Health Concerns Infection Onset Date Last Indicated Resolved Time MRSA-Contact IsolationComment: 0 04/26/2021 11:03 AM PSYCHOLOGICAL ASSISTANT Infection erroneous documented as of this encounter Care Teams Rn Advice Relationship Specialty Start Date End Date No Ref-Primary, Physician PCP - General 07/03/14 12/03/21 documented as of this encounter
--- OUTSIDE RECORDS SUMMARY | 2022-04-01 12:35 | XMS_ITS | Encounter Summary ---
:1960 Author Organization [place] Address [address] [place] [address] Care Team Providers Name Role Phone No Ref-Primary, Physician Primary Care Provider Reason for Visit Reason Onset Date Comments Results 08/12/2016 BMP Encounter Details Date Type Department Care Team Description 08/12/2016 Telephone [facility] Heart Raghu Shultz, Results (BMP) Clinic Annika HORNE [address] [place] [address] Social History Tobacco Use Types Packs/Day [...] Time MRSA-Contact IsolationComment: 0 04/26/2021 11:03 AM LOCKER PLANT ATTENDANT Infection erroneous documented as of this encounter Care Teams Database Report Writer Relationship Specialty Start Date End Date No Ref-Primary, Physician PCP - General 07/03/14 12/03/21 documented as of this encounter
--- OUTSIDE RECORDS SUMMARY | 2022-04-01 12:35 | XMS_ITS | Encounter Summary ---
:1960 Author Organization [place] Address [address] [place] [address] Care Team Providers Name Role Phone No Ref-Primary, Physician Primary Care Provider [phone] Encounter Details Date Type Department Care Team Description 09/14/2017 Orders Only [facility] Keznie Kenney h yperlipidemia (Primary Dx); Heart Clinic Annika Hernández RN Benign essential hypertensio n [address] [facility] [address] [place] [address] Social History Tobacco Use Types [...] mg/dL 09/15/2017 9:16 AM [facility] Creatinine 1.22 0.70 - 1.30 09/15/2017 9:16 AM [facility] mg/dL [facility] GFR Estimate 62 >60 09/15/2017 9:16 AM [facility] AT mL/min/1.7m2 [facility] GFR Estimate If 75 >60 09/15/2017 9:16 AM [facility] AT Black mL/min/1.7m2 [facility] Calcium 9.7 8.5 - 10.5 09/15/2017 9:16 AM [facility] mg/dL [facility] Specimen Anatomical Collection Method Collection Time Receive d Time (Source) Location / / Volume Laterality Blood specimen 09/15/2017 8:20 AM 018 8:21 (specimen) CDT AM CDT Juan Farias MD LAB - BLOOD ORDERABLES Performing Organization Address City/State/ZIP Code Phon e Number [facility] [address] [place] [address] [address] ALT (09/15/2017 8:20 AM CDT) P athologist Signature ALT 8 5 - 30 U/L 09/15/2017 [facility] 9:16 AM [facility] Specimen Anatomical Collection Method Collection Time Receive d Time (Source) Location / / Volume Laterality Blood specimen 09/15/2017 8:20 AM 018 8:21 (specimen) CDT AM CDT Juan Farias MD LAB - BLOOD ORDERABLES Performing Organization Address City/State/ZIP Code Phon e Number [facility] [address] [place] [address] [address] Lipid Profile (09/15/2017 8:20 AM CDT) P athologist Signature Cholesterol 163 <200 mg/dL 09/15/2017 [facility] 9:16 AM [facility] Triglycerides 119 <150 mg/dL 09/15/2017 [facility] 9:16 AM [facility] Comment: Fasting specimen HDL Cholesterol 46 >39 mg/dL 09/15/2017 9:16 AM P H EART AT [facility] LDL Cholesterol 93 <100 mg/dL 09/15/2017 9:16 AM [facility] Calculated [facility] Comment: Desirable: <100 mg/dl Non HDL Cholesterol 117 <130 mg/dL 09/15/2017 9:16 AM P [facility]ART AT [facility] Specimen Anatomical Collection Method Collection Time Receive d Time (Source) Location / / Volume Laterality Blood specimen 09/15/2017 8:20 AM 018 8:21 (specimen) [facility] Juan [facility] MD LAB - BLOOD ORDERABLES Performing Organization Address City/State/ZIP Code Phon e Number [facility] [address] [address] [address] documented in this encounter Visit Diagnoses Diagnosis Mixed hyperlipidemia - Primary Benign essential hypertension Essential hypertension, benign documented in this encounter Additional Health Concerns Infection Onset Date Last Indicated Resolved Time MRSA-Contact IsolationComment: 0 04/26/2021 11:03 AM OIL FURNACE INSTALLER Infection erroneous documented as of this encounter Care Teams Dye Tank Tender Relationship Specialty Start Date End Date No Ref-Primary, Physician PCP - General 07/03/14 12/03/21 documented as of this encounter
--- OUTSIDE RECORDS SUMMARY | 2022-04-01 12:35 | XMS_ITS | Encounter Summary ---
:1960 Author Organization [place] Address [address] [place] [address] Care Team Providers Name Role Phone No Ref-Primary, Physician Primary Care Provider Encounter Details Date Type Department Care Team Description 08/05/[address] [facility] Heart [facility] Mixed hyperlipidemia [facility] [address] [facility] [address] [place] [address] Social History Tobacco Use Types Packs/Day Years [...] 5 - 30 U/L [facility] Specimen Anatomical Collection Method Collection Time Receive d Time (Source) Location / / Volume Laterality Blood specimen 08/05/2015 3:11 PM 016 3:12 (specimen) CDT PM CDT Juan Farias MD LAB - BLOOD ORDERABLES Performing Organization Address City/State/ZIP Code Phon e Number [facility] [address] [facility] [place] [address] [address] (ABNORMAL) Lipid Profile (08/05/2015 3:11 PM CDT) P athologist Signature Cholesterol 163 <200 mg/dL [facility] Triglycerides 145 <150 mg/dL [facility] Comment: Fasting specimen HDL Cholesterol 39 (L) >39 mg/dL [facility] LDL Cholesterol Calculated 95 <100 mg/dL [facility] Comment: Desirable: <100 mg/dl Non HDL Cholesterol 124 <130 mg/dL [facility] Specimen Anatomical Collection Method Collection Time Receive d Time (Source) Location / / Volume Laterality Blood specimen 08/05/2015 3:11 PM 016 3:12 (specimen) CDT PM CDT Juan Farias MD LAB - BLOOD ORDERABLES Performing Organization Address City/State/ZIP Code Phon e Number [facility] AT [facility] [address] [address] [address] documented in this encounter Visit Diagnoses Diagnosis Mixed hyperlipidemia documented in this encounter Additional Health Concerns Infection Onset Date Last Indicated Resolved Time MRSA-Contact IsolationComment: 0 04/26/2021 11:03 AM SUPERVISOR LAMP SHADES Infection erroneous documented as of this encounter Care Teams Control Systems Developer Relationship Specialty Start Date End Date No Ref-Primary, Physician PCP - General 07/03/14 12/03/21 documented as of this encounter
--- OUTSIDE RECORDS SUMMARY | 2022-04-01 12:35 | XMS_ITS | Encounter Summary ---
:1960 Author Organization [place] Address [address] [place] [address] Care Team Providers Name Role Phone No Ref-Primary, Physician Primary Care Provider Encounter Details Date Type Department Care Team Description 07/03/[address] [facility] Heart [facility] Mixed hyperlipidemia [facility] [address] [facility] [address] [place] [address] Social History Tobacco Use Types Packs/Day Years [...] 5 - 30 U/L [facility] Specimen Anatomical Collection Method Collection Time Receive d Time (Source) Location / / Volume Laterality Blood specimen 07/03/2014 8:59 AM 015 9:00 (specimen) CDT AM CDT Juan Farias MD LAB - BLOOD ORDERABLES Performing Organization Address City/State/ZIP Code Phon e Number [facility] [address] [facility] [place] [address] [address] (ABNORMAL) Lipid Profile (07/03/2014 8:59 AM CDT) P athologist Signature Cholesterol 157 0 - 200 [facility] mg/dL [facility] Comment: LDL Cholesterol is the primary guide to therapy. The NCEP recommends further evaluation of: patients with cholesterol greater than 200 mg/dL if additional risk facto rs are present, cholesterol greater than 240 mg/dL, triglycerides greater than 1 50 mg/dL, or HDL less than 40 mg/dL. Triglycerides 129 0 - 150 mg/dL [facility] AT [facility] Comment: Fasting specimen HDL Cholesterol 39 (L) 40 - 118 mg/dL [facility] AT [facility] LDL Cholesterol Calculated 92 70 - 160 mg/dL [facility] AT [facility] Comment: LDL Cholesterol is the primary guide to therapy: LDL-cholesterol goal in high risk patients is <100 mg/dL and in very high risk patients is <70 mg/dL. VLDL-Cholesterol 26 <40 mg/dL [facility] AT [facility] Cholesterol/HDL Ratio 4.0 <4.4 [facility] T AT [facility] Specimen Anatomical Collection Method Collection Time Receive d Time (Source) Location / / Volume Laterality Blood specimen 07/03/2014 8:59 AM 015 9:00 (specimen) CDT AM CDT Juan Farias MD LAB - BLOOD ORDERABLES Performing Organization Address City/State/ZIP Code Phon e Number [facility] AT [facility] [address] [place] [address] [address] documented in this encounter Visit Diagnoses Diagnosis Mixed hyperlipidemia documented in this encounter Additional Health Concerns Infection Onset Date Last Indicated Resolved Time MRSA-Contact IsolationComment: 0 04/26/2021 11:03 AM IMPORT CUSTOMER SERVICE MANAGER Infection erroneous documented as of this encounter Care Teams Snowboard Designer Relationship Specialty Start Date End Date No Ref-Primary, Physician PCP - General 07/03/14 12/03/21 documented as of this encounter
--- OUTSIDE RECORDS SUMMARY | 2022-04-01 12:35 | XMS_ITS | Encounter Summary ---
:1960 Author Organization [place] Address [address] [place] [address] Care Team Providers Name Role Phone No Ref-Primary, Physician Primary Care Provider [phone] Encounter Details Date Type Department Care Team Description 08/12/2016 Orders Only [facility] gn essential Clinic [place] hypertension [address] [facility] [address] [place] [address] Social History Tobacco Use [...] Time Signature Sodium 137 133 - 144 [place] mmol/L [facility] Potassium 4.0 3.4 - 5.3 [place] mmol/L [facility] Chloride 104 94 - 109 [place] mmol/L [facility] Carbon Dioxide 26 20 - 32 [place] mmol/L [facility] Anion Gap 7 3 - 14 [place] mmol/L [facility] Glucose 88 70 - 99 [place] mg/dL [facility] Urea Nitrogen 19 7 - 30 [place] mg/dL [facility] Creatinine 1.31 (H) 0.66 - [facility] 1.25 mg/dL [facility] GFR Estimate 57 (L) >60 [place] mL/min/1.7 [facility] m2 [facility] Comment: Non GFR Calc GFR Estimate If Black 69 >60 mL/min/1.7m2 F [facility] Comment: GFR Calc Calcium 9.0 8.5 - 10.1 mg/dL [facility] Specimen Anatomical Collection Method Collection Time Receive d Time (Source) Location / / Volume Laterality Blood specimen 08/12/2016 3:03 PM 017 3:04 (specimen) CDT PM CDT Juan Farias MD LAB - BLOOD ORDERABLES Performing Organization Address City/State/ZIP Code Phon e Number [place] [address] [address] [place] [address] [facility] [address] [phone] documented in this encounter Visit Diagnoses Diagnosis Benign essential hypertension Essential hypertension, benign documented in this encounter Additional Health Concerns Infection Onset Date Last Indicated Resolved Time MRSA-Contact IsolationComment: 0 04/26/2021 11:03 AM 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
--- OUTSIDE RECORDS SUMMARY | 2022-04-01 12:35 | XMS_ITS | Encounter Summary ---
:1960 Author Organization [place] Address [address] [place] [address] Care Team Providers Name Role Phone No Ref-Primary, Physician Primary Care Provider [phone] Reason for Visit Reason Onset Date Comments Refill Request 09/05/2017 amlodipine Encounter Details Date Type Department Care Team Description 09/05/2017 Refill [facility] Heart DucomLisseth yoo, Refill Request Clinic Annika HORNE (amlodipine) [address] [facility] [address] [place] [address] Social History Tobacco [...] MRSA-Contact IsolationComment: 0 04/26/2021 11:03 AM WIRE STRANDER Infection erroneous documented as of this encounter Care Teams Maori Physiotherapist Relationship Specialty Start Date End Date No Ref-Primary, Physician PCP - General 07/03/14 12/03/21 documented as of this encounter
--- OUTSIDE RECORDS SUMMARY | 2022-04-01 12:35 | XMS_ITS | Encounter Summary ---
:1960 Author Organization [place] Address [address] [place] [address]. 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
--- OUTSIDE RECORDS SUMMARY | 2022-04-01 12:35 | XMS_ITS | Encounter Summary ---
:1960 Author Organization [place] Address [facility] [place] [address] Care Team Providers Name Role Phone No Ref-Primary, Physician Primary Care Provider [phone] Reason for Referral - Closed Specialty Diagnoses / Procedures Referred By Contact Refer red To Contact Diagnoses Mixed hyperlipidemia Feliz Roy MD [address] [place] [address] Referral ID Status Reason Start Date Expiration Date Visits Requ ested Visits Authorized [id number] Closed 07/03/2015 12/30/2015 1 1 Reason for Visit Reason Comments Heart Problem annual f/u with Dr. Roy. H X of HTN, hypercholesterolemia Results labs today Encounter Details Date Type Department Care Team Description 07/03/2014 Office Visit [facility] Feliz Roy Mixed hype rlipidemia (Primary Dx); Heart Clinic Annika Alegre MD Hyperlipidemia LDL goal <100; [address] [place]EM[place] [address]; [address] Unspecified essential hypertension [place] [address] [place] [address] [phone] Social History Tobacco Use Types Packs/Day Years [...] Lipid Profile ??? ALT ??? Follow-Up with Veterans Service Officer Orders Placed This Encounter Medications ??? aspirin [...] FACC MT: GF Name: ELIJAH BROWN Account: [id number] : 1960 Service Date: 07/03/2014 Document: [id number] documented in this encounter Plan of Treatment Scheduled Referrals Name Type Priority Associated Diagnoses Order S chedule Follow-Up with Referral Routine Mixed Hyperlipidemia Expec jacques: 08/05/2015 Veterans Service Officer (Approximate), Expires: 2015 documented as of this encounter Results ALT (08/05/2015 3:11 PM CDT) athologist Signature ALT 6 5 - 30 U/L [facility] Specimen Anatomical Collection Method Collection Time Receive d Time (Source) Location / / Volume Laterality Blood specimen 08/05/2015 3:11 PM 016 3:12 (specimen) CDT PM CDT Feliz Roy MD LAB - BLOOD ORDERABLES Performing Organization Address City/[facility]/ZIP Code Phon e Number [facility] [address] [place] [address] [address] (ABNORMAL) Lipid Profile (08/05/2015 3:11 PM CDT) athologist Signature Cholesterol 163 <200 mg/dL [facility] Triglycerides 145 <150 mg/dL [facility] Comment: Fasting specimen HDL Cholesterol 39 (L) >39 mg/dL [facility] LDL Cholesterol Calculated 95 <100 mg/dL [facility] Comment: Desirable: <100 mg/dl Non HDL Cholesterol 124 <130 mg/dL [facility] Specimen Anatomical Collection Method Collection Time Receive d Time (Source) Location / / Volume Laterality Blood specimen 08/05/2015 3:11 PM 016 3:12 (specimen) CDT PM CDT Feliz Roy MD LAB - BLOOD ORDERABLES Performing Organization Address City/State/ZIP Code Phon e Number [facility] [address] [place] [address] [address] documented in this encounter Visit Diagnoses Diagnosis Mixed hyperlipidemia - Primary Hyperlipidemia LDL goal <100 Other and unspecified hyperlipidemia [place]EM[place] NOS Anemia, unspecified Unspecified essential hypertension documented in this encounter Additional Health Concerns Infection Onset Date Last Indicated Resolved Time MRSA-Contact IsolationComment: 0 04/26/2021 11:03 AM 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
--- OUTSIDE RECORDS SUMMARY | 2022-04-01 12:35 | XMS_ITS | Encounter Summary ---
:1960 Author Organization [place] Address [address] [place] [address] Care Team Providers Name Role Phone No Ref-Primary, Physician Primary Care Provider Reason for Referral - Closed Specialty Diagnoses / Procedures Referred By Contact Refer red To Contact Diagnoses Mixed hyperlipidemia Feliz Roy MD [address] [place] [address] Referral ID Status Reason Start Date Expiration Date Visits Requ ested Visits Authorized [id number] Closed 08/04/2016 08/04/2017 1 1 Reason for Visit Reason Comments Hypertension Annual FU Hyperlipidemia - Closed Specialty Diagnoses / Procedures Referred By Contact Refer red To Contact Diagnoses Mixed hyperlipidemia Feliz Roy MD [address] [place] [address] Referral ID Status Reason Start Date Expiration Date Visits Requ ested Visits Authorized [id number] Closed 07/03/2015 12/30/2015 1 1 Encounter Details Date Type Department Care Team Description 08/05/2015 Office Visit [facility] Feliz Roy, Mixed hyperlipidemia [facility] Annika HERBERT [address] [place] [address] [facility] [address] [place] [address] [place] [address] [phone] Social History Tobacco Use Types Packs/Day Years [...] Lipid Profile ??? ALT ??? Follow-Up with Laboratory Technologist No orders of the defined types [...] [facility] [address] [place] [address] Feliz Roy MD - 08/05/2015 4:44 PM CDT I had the opportunity to see Mr. Kayden Brown in Cardiology Clinic today at the [facility] in [place] for reevaluation of hypertension and dyslipidemia. Fortunately, [...] will contact me sooner. FELIZ ROY MD, [facility] MT: keke Name: ELIJAH BROWN MRN: [id number] Account: [id number] : 1960 Service Date: 08/05/2015 Document: [id number] documented in this encounter Plan of Treatment Scheduled Referrals Name Type Priority Associated Diagnoses Order S chedule Follow-Up with Referral Routine Mixed hyperlipidemia Expec jacques: 08/04/2016 Laboratory Technologist (Approximate), Expires: 2016 documented as of this encounter Results ALT (08/04/2016 7:15 AM CDT) athologist Signature ALT 9 5 - 30 U/L [facility] Specimen Anatomical Collection Method Collection Time Receive d Time (Source) Location / / Volume Laterality Blood specimen 08/04/2016 7:15 AM 017 7:16 (specimen) CDT AM CDT Feliz Roy MD LAB - BLOOD ORDERABLES Performing Organization Address City/[facility]/ZIP Code Phon e Number [facility] [address] [place] [place] [address] [address] Lipid Profile (08/04/2016 7:15 AM CDT) athologist Signature Cholesterol 146 <200 mg/dL [facility] Triglycerides 64 <150 mg/dL [facility] Comment: Fasting specimen HDL Cholesterol 43 >39 mg/dL [facility] LDL Cholesterol Calculated 90 <100 mg/dL [facility] Comment: Desirable: <100 mg/dl Non HDL Cholesterol 103 <130 mg/dL [facility] Specimen Anatomical Collection Method Collection Time Receive d Time (Source) Location / / Volume Laterality Blood specimen 08/04/2016 7:15 AM 017 7:16 (specimen) CDT AM CDT Feliz Roy MD LAB - BLOOD ORDERABLES Performing Organization Address City/[facility]/ZIP Code Phon e Number [facility] [address] [address] [address] documented in this encounter Visit Diagnoses Diagnosis Mixed hyperlipidemia documented in this encounter Additional Health Concerns Infection Onset Date Last Indicated Resolved Time MRSA-Contact IsolationComment: 0 04/26/2021 11:03 AM WATER METER READER Infection erroneous documented as of this encounter Care Teams Fabricator Artificial Breast Relationship Specialty Start Date End Date No Ref-Primary, Physician PCP - General 07/03/14 12/03/21 documented as of this encounter
--- OUTSIDE RECORDS SUMMARY | 2022-04-01 12:36 | XMS_ITS | Encounter Summary ---
:1960 Author Organization [place] Address [address] [place] [address] Care Team Providers Name Role Phone Unavailable [...] as of this encounter Progress Notes Interface, Transition Assistant - 07/10/2010 8:49 AM CDT General Information - How to be Addressed navarro - Patient Belongings clothing - stereo equipment salesperson #1: Shalonda - Relationship to girlfriend patient #1: - Contact Location: Home Local - Phone 1: [phone] - stereo equipment salesperson #2: Chantal Woods - Relationship to sister patient #2: - Contact Location: Home Local - Phone 1: [phone] - Cell - stereo equipment salesperson #3: Perlita & elida - Relationship to mom & dad patient #3: - Phone 1: [phone] - Patient's spoken language; Paraguayan or Bilingual communication style Advance Directive - [...] abuse, self neglect, lack of adequate food, fpc, medical care, or financial exploitation)? Values/Beliefs/Spiritual Care [...] none Considerations - Developmental none Considerations - Congregational none Considerations Mutuality/Individual Preferences - What information [...] MRSA-Contact IsolationComment: 0 04/26/2021 11:03 AM MECHANICAL EQUIPMENT TEST ENGINEER Infection erroneous documented as of this encounter
--- OUTSIDE RECORDS SUMMARY | 2022-04-01 12:36 | XMS_ITS | Encounter Summary ---
:1960 Author Organization [place] Address [address] [place] [address] Care Team Providers Name Role Phone Unavailable [...] as of this encounter Progress Notes Interface, Visual Educator - 07/10/2010 8:33 AM CDT General Information [...] Mobility: Rolling/Turning - Level of stand-by assist [place]: Bed Mobility: Scooting/Bridging - Level of stand-by assist [place]: Bed Mobility: Sit to Supine - Level of stand-by assist [place]: Bed Mobility: Supine to Sit - Level of stand-by assist [place]: Transfer: Bed to Chair/Chair to Bed - Level of moderate assist (50% patients effort) [place]: - Physical 2 persons Assist/Nonphysical Assist: - Weight-Bearing full weight-bearing Restrictions: - Assistive Device: rolling walker Bed/Chair Transfer Safety Analysis - Transfer Safety losing balance backward; decreased balance Concerns Noted: during turns - Impairments impaired balance; decreased strength Contributing to Impaired Transfers: Transfer: Sit to Stand - Level of moderate assist (50% patients effort) [place]: - Physical 2 persons Assist/Nonphysical Assist: - Weight-Bearing full weight-bearing Restrictions: - Assistive Device: rolling walker Transfer: Stand to Sit - Level of moderate assist (50% patients effort) [place]: - Physical 2 persons Assist/Nonphysical Assist: - Weight-Bearing full weight-bearing Restrictions: - Assistive Device: rolling walker Sit/Stand Transfer Safety Analysis - Transfer Safety decreased balance during turns; losing balance Concerns Noted: backward - Impairments impaired balance; decreased strength Contributing to Impaired Transfers: Gait Skills - Level of moderate assist (50% patients effort) [place]: - Physical 1 person + 1 person [...] minimum assist (75% patients effort) Dynamic: - Bca-nl-Trvnu Balance: moderate assist (50% patients effort) - [...] closely Potential: - Demonstrates need for OT; INVENTORY CONTROL CLERK referral to another service: - Predicted Duration [...] Time MRSA-Contact IsolationComment: 0 04/26/2021 11:03 AM WINCHER Infection erroneous documented as of this encounter
--- OUTSIDE RECORDS SUMMARY | 2022-04-01 12:36 | XMS_ITS | Encounter Summary ---
:1960 Author Organization [place] Address [address] [place] [address] Care Team Providers Name Role Phone Unavailable Primary Care Provider Unavailable Encounter Details Date Type Department Care Team Description 07/02/2009 Historic Notes INTERFACED REPORT Cali Dang MD [address] [place], [place] [address] (Wo rk) Social History [...] Time MRSA-Contact IsolationComment: 0 04/26/2021 11:03 AM GUARD DANCE HALL Infection erroneous documented as of this encounter
--- OUTSIDE RECORDS SUMMARY | 2022-04-01 12:36 | XMS_ITS | Encounter Summary ---
:1960 Author Organization [place] Address [address] [place] [address] Care Team Providers Name Role Phone Unavailable Primary Care Provider Unavailable Encounter Details Date Type Department Care Team Description 07/02/2009 [facility] DO [address] [place], [place] [address] [phone] Social History Tobacco Use Types Packs/Day Years [...] AM Results f or this METHICILLIN RESISTANT MACHINE TRY OUT SETTER proced ure are in PCR (RW) the results section. REFERRAL SENSITIVITY Routine 07/02/2009 8:45 AM R esults for this MACHINE TRY OUT SETTER procedure are i n the results section. COMPREHENSIVE Routine 07/02/2009 7:05 AM Results for this METABOLIC PANEL MACHINE TRY OUT SETTER procedure ar e in the results section. CBC WITH PLATELETS Routine 07/02/2009 7:05 AM Res ults for this MACHINE TRY OUT SETTER procedure are i n the results section. documented in this encounter Results Staph aureus methicillin resistant PCR (07/02/2009 8:45 AM MACHINE TRY OUT SETTER) [facility] Method Time Signature Specimen Nares MISYS Description Methicillin Positive: MISYS Resist/Sens S. 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 Comment: FDA approved assay performed using YOHO GeneXpert(R) real-time PCR with amplification of a sequence in a casset te inserted in the S.aureus chromosome. Specimen Anatomical Collection Method Collection Time Receive d Time (Source) Location / / Volume Laterality 07/02/2009 8:45 AM 0 3:04 MACHINE TRY OUT SETTER PM MACHINE TRY OUT SETTER Harvey Dang MD LAB - MICRO GENERAL ORDERABL ES Performing Organization Address City/State/ZIP Code Phon e Number MISYS Referral sensitivity (07/02/2009 8:45 AM MACHINE TRY OUT SETTER) Component Value Ref Test Analysis Performed Pathologis t Range Method Time At Signature Specimen Nares MISYS Description Culture Micro No MRSA isolated: MISYS susceptibilities not available. PCR assay is more sensitive Comment: than culture. Micro Report Status FINAL 07/05/2009 MIS YS Specimen Anatomical Collection Method Collection Time Receive d Time (Source) Location / / Volume Laterality 07/02/2009 8:45 AM 0 4:22 MACHINE TRY OUT SETTER PM MACHINE TRY OUT SETTER Josue Crain DO LAB - MICRO GENERAL ORDERABL ES Performing Organization Address City/State/ZIP Code Phon e Number MISYS (ABNORMAL) Comprehensive metabolic panel (07/02/2009 7:05 AM MACHINE TRY OUT SETTER) P athologist Signature Sodium 137 133 - [...] / Volume Laterality 07/02/2009 7:05 AM 0 MACHINE TRY OUT SETTER 10:54 AM MACHINE TRY OUT SETTER Harvey Dang MD LAB - BLOOD ORDERABLES Performing Organization Address City/State/ZIP Code Phon e Number MISYS (ABNORMAL) CBC with platelets (07/02/2009 7:05 AM MACHINE TRY OUT SETTER) Analysis Performed At Patho logist Time Signature [...] Volume Laterality 07/02/2009 7:05 AM 0 7:52 MACHINE TRY OUT SETTER AM MACHINE TRY OUT SETTER Harvey Dang MD LAB - BLOOD ORDERABLES Performing Organization Address City/State/ZIP Code Phon e Number MISYS documented in this encounter Visit Diagnoses Not on filedocumented in this encounter Additional Health Concerns Infection Onset Date Last Indicated Resolved Time MRSA-Contact IsolationComment: 0 04/26/2021 11:03 AM MACHINE TRY OUT SETTER Infection erroneous documented as of this encounter
--- OUTSIDE RECORDS SUMMARY | 2022-04-01 12:36 | XMS_ITS | Encounter Summary ---
:1960 Author Organization [address] [address] Care Team Providers Name Role Phone Unavailable Primary Care Provider Unavailable Encounter Details Date Type Department Care Team Description 07/15/2011 Historic Results [facility] Unknown, Doct or, Clinic [place] [id number] [place] [address] Social History Tobacco Use Types Packs/Day Years [...] GEMMS Historical Results (07/15/2011 12:00 AM CDT) [facility] gist Method Time Signature Triglycerides 149 [...] Time MRSA-Contact IsolationComment: 0 04/26/2021 11:03 AM TELLER MANAGER Infection erroneous documented as of this encounter
--- OUTSIDE RECORDS SUMMARY | 2022-04-01 12:36 | XMS_ITS | Encounter Summary ---
:1960 Author Organization [place] Address [address] [place] [address]. [place] [address] Care Team Providers Name Role Phone Unavailable Primary Care Provider Unavailable Encounter Details Date Type Department Care Team Description 07/02/2014 Orders Only [facility] Juan Farias, Mixed hyperlipidemia Heart Clinic Annika HERBERT (Primary Dx) Laboratory [address] [facility] [address] [facility] [address] [place] [address] [place] [address] [phone] Social History Tobacco Use Types Packs/Day Years [...] 5 - 30 U/L [facility] Specimen Anatomical Collection Method Collection Time Receive d Time (Source) Location / / Volume Laterality Blood specimen 07/03/2014 8:59 AM 015 9:00 (specimen) CDT AM CDT Juan Farias MD LAB - BLOOD ORDERABLES Performing Organization Address City/State/ZIP Code Phon e Number [facility] [address] [facility] [place] [address] [address] (ABNORMAL) Lipid Profile (07/03/2014 8:59 AM CDT) athologist Signature Cholesterol 157 0 - 200 [facility] mg/dL [facility] Comment: LDL Cholesterol is the primary guide to therapy. The NCEP recommends further evaluation of: patients with cholesterol greater than 200 mg/dL if additional risk facto rs are present, cholesterol greater than 240 mg/dL, triglycerides greater than 1 50 mg/dL, or HDL less than 40 mg/dL. Triglycerides 129 0 - 150 mg/dL [facility] Comment: Fasting specimen HDL Cholesterol 39 (L) 40 - 118 mg/dL [facility] LDL Cholesterol Calculated 92 70 - 160 mg/dL [facility] Comment: LDL Cholesterol is the primary guide to therapy: LDL-cholesterol goal in high risk patients is <100 mg/dL and in very high risk patients is <70 mg/dL. VLDL-Cholesterol 26 <40 mg/dL [facility] Cholesterol/HDL Ratio 4.0 <4.4 [facility] T [facility] Specimen Anatomical Collection Method Collection Time Receive d Time (Source) Location / / Volume Laterality Blood specimen 07/03/2014 8:59 AM 015 9:00 (specimen) CDT AM CDT Juan Farias MD LAB - BLOOD ORDERABLES Performing Organization Address City/State/ZIP Code Phon e Number [facility] [address] [place] [address] [address] documented in this encounter Visit Diagnoses Diagnosis Mixed hyperlipidemia - Primary documented in this encounter Additional Health Concerns Infection Onset Date Last Indicated Resolved Time MRSA-Contact IsolationComment: 0 04/26/2021 11:03 AM FRENCH FOLDING 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
--- OUTSIDE RECORDS SUMMARY | 2022-04-01 12:36 | XMS_ITS | Encounter Summary ---
:1960 Author Organization [place] Address [address] [place] [address] Care Team Providers Name Role Phone Unavailable Primary Care Provider Unavailable Encounter Details Date Type Department Care Team Description 04/25/2012 Historic Results [facility] Unknown, Doct or, Clinic [place] [address] [place] [address] Social History Tobacco Use Types Packs/Day Years [...] 12:00 AM Resu lts for this RESULTS CHEMICAL CHECKER procedure are i n the results section. documented in this encounter Results (ABNORMAL) GEMMS Historical Results (04/25/2012 12:00 AM CHEMICAL CHECKER) [facility] gist Method Time Signature Triglycerides 167 [...] MRSA-Contact IsolationComment: 0 04/26/2021 11:03 AM CHEMICAL CHECKER Infection erroneous documented as of this encounter
--- OUTSIDE RECORDS SUMMARY | 2022-04-01 12:36 | XMS_ITS | Encounter Summary ---
:1960 Author Organization [place] Address [address] [place] [address] Care Team Providers Name Role Phone Unavailable Primary Care Provider Unavailable Encounter Details Date Type Department Care Team Description 08/20/2010 Historic Results [facility] Heart Unknown, Doct or, Clinic [address] [place] [address] Social History Tobacco Use Types Packs/Day Years [...] GEMMS Historical Results (08/20/2010 12:00 AM CDT) [facility] gist Method Time Signature Triglycerides 146 0 [...] Time MRSA-Contact IsolationComment: 0 04/26/2021 11:03 AM INVESTIGATOR CLAIMS Infection erroneous documented as of this encounter
--- OUTSIDE RECORDS SUMMARY | 2022-04-01 12:36 | XMS_ITS | Encounter Summary ---
:1960 Author Organization [place] Address [address] [place] [address] Care Team Providers Name Role Phone Unavailable Primary Care Provider Unavailable Encounter Details Date Type Department Care Team Description 07/06/[address] [facility] Luisa Carrillo M D (Line Maintenance Technician) [facility] [address] [place] [address] (Wo rk) Social History Tobacco Use Types [...] fell while going up stairs. Per the perioperative tech notes, a breathalyzer at the scene revealed [...] his use if he fails to quit. cemetery workers supervisor was involved. In addition, his sister is [...] DISPOSITION: Discharge to home with his fiancee. cemetery workers supervisor was actively involved with his case this admission and did give him the CD resources for Rule 25 assessment to be done at [facility] the following morning after discharge. Electronically signed on 07/31/2009 14:20 by LUISA CARRILLO MD MT: [id number] Name: ELIJAH BROWN Account: [id number] : 1960 Admit Date: Discharge Date: 07/06/2009 Document: [id number] documented in this encounter Plan of Treatment Not on filedocumented as of this encounter Visit Diagnoses Not on filedocumented in this encounter Additional Health Concerns Infection Onset Date Last Indicated Resolved Time MRSA-Contact IsolationComment: 0 04/26/2021 11:03 AM SEED CLEANER Infection erroneous documented as of this encounter
--- OUTSIDE RECORDS SUMMARY | 2022-04-01 12:36 | XMS_ITS | Encounter Summary ---
:1960 Author Organization [place] Address [address] [place] [address] Care Team Providers Name Role Phone Unavailable [...] Time MRSA-Contact IsolationComment: 0 04/26/2021 11:03 AM CUSTOMS COLLECTOR Infection erroneous documented as of this encounter
--- OUTSIDE RECORDS SUMMARY | 2022-04-01 12:36 | XMS_ITS | Encounter Summary ---
:1960 Author Organization [place] Address [address] [place] [address] Care Team Providers Name Role Phone Unavailable Primary Care Provider Unavailable Encounter Details Date Type Department Care Team Description 07/04/2009 Historic Results [facility] Sharifa Barr MD Hospitalists [address] [facility] [address] [place] [address] [place], [place] [phone] (Wo rk) [address] [phone] Social History Tobacco Use Types Packs/Day Years [...] 4:15 PM Result s for this MICROSCOPIC CREDIT RISK ASSOCIATE procedure are i n the results section. documented in this encounter Results (ABNORMAL) Routine UA with microscopic (07/04/2009 4:15 PM CREDIT RISK ASSOCIATE) Component Value Ref Test Analysis Performed At [facility] Range Method Time Signature Source Unspecified MISYS Urine Color Urine Yellow MISYS Appearance Urine Clear MISYS Glucose Urine Negative NEG MISYS mg/dL Bilirubin Urine Negative NEG MISYS Ketones Urine Negative NEG MISYS mg/dL Specific [place] 1.005 1.003 - MISYS Urine 1.035 Blood [...] Volume Laterality 07/04/2009 4:15 PM 0 9:33 CREDIT RISK ASSOCIATE AM CREDIT RISK ASSOCIATE Sharifa Barr MD LAB - URINE ORDERABLES Performing Organization Address City/State/ZIP Code Phon e Number MISYS documented in this encounter Visit Diagnoses Not on filedocumented in this encounter Additional Health Concerns Infection Onset Date Last Indicated Resolved Time MRSA-Contact IsolationComment: 0 04/26/2021 11:03 AM CREDIT RISK ASSOCIATE Infection erroneous documented as of this encounter
--- OUTSIDE RECORDS SUMMARY | 2022-04-01 12:36 | XMS_ITS | Encounter Summary ---
:1960 Author Organization [place] Address [address] [place] [address] Care Team Providers Name Role Phone Unavailable Primary Care Provider Unavailable Encounter Details Date Type Department Care Team Description 07/01/2009 Historic Results [facility]ianni Helton MD Hospitalists [address] [facility] [place] [place] [address] (Wo rk) Social History [...] 07/01/2009 7:01 PM Resul ts for this STUBBER procedure are i n the results section. INR AND PTT PANEL Timed 07/01/2009 11:10 Result s for this AM STUBBER procedure are i n the results section. ROUTINE UA WITH Routine 07/01/2009 10:40 Results for this MICROSCOPIC AM STUBBER procedure are i n the results section. URINE CULTURE Routine 07/01/2009 10:40 Results fo r this AM STUBBER procedure are i n the results section. CBC WITH PLATELETS Timed 07/01/2009 10:40 Resul ts for this AM STUBBER procedure are i n the results section. BLOOD CULTURE STAT 07/01/2009 8:20 AM Results for this STUBBER procedure are i n the results section. BLOOD CULTURE STAT 07/01/2009 8:05 AM Results for this STUBBER procedure are i n the results section. HEPATIC FUNCTION Routine 07/01/2009 6:20 AM Resul ts for this PANEL STUBBER procedure are i n the results section. BASIC METABOLIC PANEL Routine 07/01/2009 6:20 AM Results for this STUBBER procedure are i n the results section. documented in this encounter Results (ABNORMAL) Glucose by meter (07/01/2009 7:01 PM STUBBER) athologist Signature Glucose 217 (H) 60 - 99 MISYS mg/dL Specimen Anatomical Collection Method Collection Time Receive d Time (Source) Location / / Volume Laterality 07/01/2009 7:01 PM 0 7:05 STUBBER PM STUBBER Josue Crain DO LAB - BEAKER POCT Performing Organization Address City/State/ZIP Code Phon e Number MISYS INR AND PTT PANEL (07/01/2009 11:10 AM STUBBER) athologist Signature INR 0.95 0.86 - 1.14 MISYS PTT 26 22 - 37 sec MISYS Specimen Anatomical Collection Method Collection Time Receive d Time (Source) Location / / Volume Laterality 07/01/2009 11:10 07/01/2009 AM STUBBER 10:50 AM STUBBER Harvey Dang MD LAB - BLOOD ORDERABLES Performing Organization Address City/State/ZIP Code Phon e Number MISYS (ABNORMAL) Routine UA with microscopic (07/01/2009 10:40 AM STUBBER) Component Value Ref Test Analysis Performed At [facility] gist Range Method Time Signature Source Catheterized MISYS Urine Color Urine Yellow MISYS Appearance Urine Clear MISYS Glucose Urine Negative NEG MISYS mg/dL Bilirubin Urine Negative NEG MISYS Ketones Urine 10 (A) NEG MISYS mg/dL Specific [place] 1.010 1.003 - MISYS Urine 1.035 Blood [...] Volume Laterality 07/01/2009 10:40 07/01/2009 8:01 AM STUBBER AM STUBBER Harvey Dang MD LAB - URINE ORDERABLES Performing Organization Address City/[facility]/ZIP Code Phon e Number MISYS (ABNORMAL) CBC with platelets (07/01/2009 10:40 AM STUBBER) Analysis Performed At Patho logist Time Signature [...] / Volume Laterality 07/01/2009 10:40 07/01/2009 AM STUBBER 10:30 AM STUBBER Harvey Dang MD LAB - BLOOD ORDERABLES Performing Organization Address City/[facility] Phon e Number MISYS Urine culture (07/01/2009 10:40 AM STUBBER) Component Value Ref Test Analysis Performed At [facility] [employer] Range Method Time Signature Specimen Catheterized MISYS Description Urine Culture Micro No growth MISYS Micro Report FINAL 07/02/2009 MISYS Status Specimen Anatomical Collection Method Collection Time Receive d Time (Source) Location / / Volume Laterality 07/01/2009 10:40 07/01/2009 8:01 AM STUBBER AM STUBBER Harvey Dang MD LAB - MICRO GENERAL ORDERABL ES Performing Organization Address City/[facility] Phon e Number MISYS Blood culture (07/01/2009 8:20 AM STUBBER) [facility] Method Time Signature Specimen Blood Left MISYS Description Hand Culture Micro No growth MISYS after 6 days Micro Report FINAL MISYS Status [id number] Specimen Anatomical Collection Method Collection Time Receive d Time (Source) Location / / Volume Laterality 07/01/2009 8:20 AM 0 8:02 STUBBER AM STUBBER Harvey Dang MD LAB - MICRO GENERAL ORDERABL ES Performing Organization Address City/[facility] Phon e Number MISYS Blood culture (07/01/2009 8:05 AM STUBBER) Patholo gist Method Time Signature Specimen Blood Right MISYS Description Arm Culture Micro No growth MISYS after 6 days Micro Report FINAL MISYS Status [id number] Specimen Anatomical Collection Method Collection Time Receive d Time (Source) Location / / Volume Laterality 07/01/2009 8:05 AM 0 8:02 STUBBER AM STUBBER Harvey Dang MD LAB - MICRO GENERAL ORDERABL ES Performing Organization Address City/State/ZIP Code Phon e Number MISYS (ABNORMAL) Basic metabolic panel (07/01/2009 6:20 AM STUBBER) P athologist Signature Sodium 135 133 - [...] Volume Laterality 07/01/2009 6:20 AM 0 2:28 STUBBER PM STUBBER Harvey Dang MD LAB - BLOOD ORDERABLES Performing Organization Address City/State/ZIP Code Phon e Number MISYS (ABNORMAL) Hepatic panel (07/01/2009 6:20 AM STUBBER) Analysis Performed At Patho logist Time Signature [...] / Volume Laterality 07/01/2009 6:20 AM 0 STUBBER 10:21 AM STUBBER Harvey Dang MD LAB - BLOOD ORDERABLES Performing Organization Address City/State/ZIP Code Phon e Number MISYS documented in this encounter Visit Diagnoses Not on filedocumented in this encounter Additional Health Concerns Infection Onset Date Last Indicated Resolved Time MRSA-Contact IsolationComment: 0 04/26/2021 11:03 AM STUBBER Infection erroneous documented as of this encounter
--- OUTSIDE RECORDS SUMMARY | 2022-04-01 12:36 | XMS_ITS | Encounter Summary ---
:1960 Author Organization [place] Address [address] [place] [address] Care Team Providers Name Role Phone Unavailable Primary Care Provider Unavailable Encounter Details Date Type Department Care Team Description 07/03/2009 Historic Results [facility] Josue Crain, Hospitalists DO [address] [place], [place] [address] [phone] Social History Tobacco Use Types Packs/Day Years [...] lts for this AND B (QUEST) AM AUTO JOB ESTIMATOR procedure are in the results section. C DIFFICILE CULTURE Routine 07/03/2009 11:20 Resu lts for this AM AUTO JOB ESTIMATOR procedure are i n the results section. TSH Timed 07/03/2009 9:54 AM Results f or this AUTO JOB ESTIMATOR procedure are i n the results section. T4 FREE Timed 07/03/2009 9:54 AM Results f or this AUTO JOB ESTIMATOR procedure are i n the results section. COMPREHENSIVE Routine 07/03/2009 5:45 AM Results for this METABOLIC PANEL AUTO JOB ESTIMATOR procedure ar e in the results section. CBC WITH PLATELETS Routine 07/03/2009 5:45 AM Res ults for this AUTO JOB ESTIMATOR procedure are i n the results section. documented in this encounter Results C difficile culture (07/03/2009 11:20 AM AUTO JOB ESTIMATOR) [facility] Method Time Signature Specimen Feces MISYS Descrip C Difficile Light growth MISYS Culture Clostridium difficile Specimen Anatomical Collection Method Collection Time Receive d Time (Source) Location / / Volume Laterality 07/03/2009 11:20 07/03/2009 AM AUTO JOB ESTIMATOR 12:24 PM AUTO JOB ESTIMATOR Josue Crain DO LAB - MICRO GENERAL ORDERABL ES Performing Organization Address [facility] Phon e Number MISYS C difficile toxin A and B (07/03/2009 11:20 AM AUTO JOB ESTIMATOR) [facility] Method Time Signature Specimen Feces MISYS [...] / Volume Laterality 07/03/2009 11:20 07/03/2009 AM AUTO JOB ESTIMATOR 12:25 PM AUTO JOB ESTIMATOR Josue Crain DO LAB - BLOOD ORDERABLES Performing Organization Address [facility] Phon e Number MISYS T4 free (07/03/2009 9:54 AM AUTO JOB ESTIMATOR) athologist Signature T4 Free 1.75 0.70 - 1.85 MISYS ng/dL Specimen Anatomical Collection Method Collection Time Receive d Time (Source) Location / / Volume Laterality 07/03/2009 9:54 AM 0 AUTO JOB ESTIMATOR 10:00 AM AUTO JOB ESTIMATOR Sharifa Barr MD LAB - BLOOD ORDERABLES Performing Organization Address [facility] Phon e Number MISYS TSH (07/03/2009 9:54 AM AUTO JOB ESTIMATOR) athologist Signature TSH 2.71 0.4 - 5.0 MISYS mU/L Specimen Anatomical Collection Method Collection Time Receive d Time (Source) Location / / Volume Laterality 07/03/2009 9:54 AM 03/12/201 0 AUTO JOB ESTIMATOR 10:00 AM AUTO JOB ESTIMATOR Sharifa Barr MD LAB - BLOOD ORDERABLES Performing Organization Address City/State/ZIP Code Phon e Number MISYS (ABNORMAL) Comprehensive metabolic panel (07/03/2009 5:45 AM AUTO JOB ESTIMATOR) P athologist Signature Sodium 136 133 - [...] Volume Laterality 07/03/2009 5:45 AM 0 7:53 AUTO JOB ESTIMATOR AM AUTO JOB ESTIMATOR Harvey Dang MD LAB - BLOOD ORDERABLES Performing Organization Address City/State/ZIP Code Phon e Number MISYS (ABNORMAL) CBC with platelets (07/03/2009 5:45 AM AUTO JOB ESTIMATOR) Analysis Performed At Patho logist Time Signature [...] Volume Laterality 07/03/2009 5:45 AM 0 7:53 AUTO JOB ESTIMATOR AM AUTO JOB ESTIMATOR Harvey Dang MD LAB - BLOOD ORDERABLES Performing Organization Address City/State/ZIP Code Phon e Number MISYS documented in this encounter Visit Diagnoses Not on filedocumented in this encounter Additional Health Concerns Infection Onset Date Last Indicated Resolved Time MRSA-Contact IsolationComment: 0 04/26/2021 11:03 AM AUTO JOB ESTIMATOR Infection erroneous documented as of this encounter
--- OUTSIDE RECORDS SUMMARY | 2022-04-01 12:36 | XMS_ITS | Encounter Summary ---
:1960 Author Organization [place] Address [facility] [place] [address] Care Team Providers Name Role Phone No Ref-Primary, Physician Primary Care Provider [phone] Juan Farias MD Unavailable Eidlia Trejo APRN CYLINDER MACHINE OPERATOR Unavailable Glendy vailable Juan Farias MD Unavailable Denise Connell-C Unavailable [phone] Edilia Trejo APRN CYLINDER MACHINE OPERATOR Unavailable Glendy vailable Denise Connell-C Unavailable [phone] Juan Farias MD Primary Care Provider Dana Barry PA-C Unavailable [phone] Encounter Details Date Type Department Care Team Description 04/25/2012 Office Visit-[facility] Heart Juan Farias MD [address] [place] [address] [place] [address] [phone] Social History Tobacco Use Types Packs/Day Years [...] Physician: JEROME MORENO Referring Clinic: [facility] CURRENT DIAGNOSES 1. - Hypertension, benign, 401.1 [...] lives with female partner; Place of - [place]; Job Description - makes [employer]; Hours Worked - 60 hours per week; [...] MRSA-Contact IsolationComment: 0 04/26/2021 11:03 AM CONCRETE CRAFTSMAN Infection erroneous MRSA 05/13/2021 05/13/2021 Rule Out C-difficile 12/06/2021 12/06/2021 12/07/2021 8:46 AM CDT documented as of this encounter Care Teams Nurse Case Management Relationship Specialty Start Date End Date No Ref-Primary, PCP - General 07/03/14 12/03/21 Physician Juan Farias MD PCP - General Cardiovascular Disease 12/04/21 [address] [place] [address] Juan Farias MD Assigned Heart and 02/14/20 10/03/20 [address] Vascular Provider [address] [place], [place] [id number] Maya, Assigned Heart and 10/04/20 Edilia Chapman APRN Vascular Provider GUILHERME NO INFO AVAILABLE 02/10/2022 Juan Farias MD Assigned Heart and 04/04/21 07/31/[address] Vascular Provider [address] [place] [address] Denise Connell Physician Production Supv Cardiovascular Disease 08/12/21 MARIETTA Watson [address] [place], [place] [address] Maya, Assigned Heart and 08/01/21 2 Edilia Chapman APRN Vascular Provider CYLINDER MACHINE OPERATOR NO INFO AVAILABLE 02/10/2022 Denise Connell Assigned Heart and 08/22/21 01/14/22 MARIETTA Watson Vascular Provider [address] [place], [place] [address] Dana Barry Assigned Heart and 01/15/22 MARIETTA Teague Vascular Provider [address] [place], [place] [phone] documented as of this encounter
--- OUTSIDE RECORDS SUMMARY | 2022-04-01 12:36 | XMS_ITS | Encounter Summary ---
:1960 Author Organization [place] Address [address] [place] [address] Care Team Providers Name Role Phone Unavailable Primary Care Provider Unavailable Encounter Details Date Type Department Care Team Description 03/21/2009 Historic Notes INTERFACED REPORT Scarlett Adams , OTR [address] [place], [place] [address] (Wo rk) Social History [...] toward Goals not met achieving short term goals/parole agent goals - Barriers to achieving Early discharge [...] MRSA-Contact IsolationComment: 0 04/26/2021 11:03 AM MARKETING PROGRAM MANAGER Infection erroneous documented as of this encounter
--- OUTSIDE RECORDS SUMMARY | 2022-04-01 12:36 | XMS_ITS | Encounter Summary ---
:1960 Author Organization [place] Address [address] [place] [address] Care Team Providers Name Role Phone Unavailable Primary Care Provider Unavailable Encounter Details Date Type Department Care Team Description 08/20/2010 Orders Only [facility] Tristan Egan, [facility] [address] [place] [phone] [place] [address] (Wo rk) Social History Tobacco [...] this encounter Results (ABNORMAL) Lipid Profile (08/20/2010) [facility] Method Time Signature Cholesterol 254 (A) [...] Time MRSA-Contact IsolationComment: 0 04/26/2021 11:03 AM BARREL COOPER Infection erroneous documented as of this encounter
--- OUTSIDE RECORDS SUMMARY | 2022-04-01 12:36 | XMS_ITS | Encounter Summary ---
:1960 Author Organization [place] Address [address] [place] [address] Care Team Providers Name Role Phone Unavailable Primary Care Provider Unavailable Encounter Details Date Type Department Care Team Description 07/01/[address] [facility] Harvey Dang, Hospital Results [address] [place], [place] [address] (Wo rk) Social History [...] 07/01/2009 2:18 PM Results for this COMPLETE MOBILE PHONE SALESPERSON procedure are i n the results section. HC CHEST ONE VIEW Routine 07/01/2009 8:34 AM Resu lts for this MOBILE PHONE SALESPERSON procedure are i n the results section. documented in this encounter Results SONO ABDOMEN COMPLETE (07/01/2009 2:18 PM MOBILE PHONE SALESPERSON) Anatomical Region Laterality Modality Other Specimen (Source) Anatomical Collection Method Collection Time Re ceived Time Location / / Volume Laterality 07/01/2009 2:18 PM MOBILE PHONE SALESPERSON Impressions 07/01/2009 3:45 PM MOBILE PHONE SALESPERSON ULTRASOUND ABDOMEN COMPLETE PORTABLE ?? arch 2009 2:18 PM HISTORY: Elevated liver function tests. FINDINGS: Liver is increased in [facility] without focal lesions. Gallbladder is normal without [...] CHEST X-RAY 1 VW (07/01/2009 8:34 AM MOBILE PHONE SALESPERSON) Anatomical Region Laterality Modality Other Specimen (Source) Anatomical Collection Method Collection Time Re ceived Time Location / / Volume Laterality 07/01/2009 8:34 AM MOBILE PHONE SALESPERSON Impressions 07/01/2009 9:20 AM MOBILE PHONE SALESPERSON CHEST 1VIEW PORTABLE Jul 01, 2009 8:34:0 0 AM HISTORY: Fever. FINDINGS: Negative. Harvey Dang MD GENERAL IMAGING documented in this encounter Visit Diagnoses Not on filedocumented in this encounter Additional Health Concerns Infection Onset Date Last Indicated Resolved Time MRSA-Contact IsolationComment: 0 04/26/2021 11:03 AM MOBILE PHONE SALESPERSON Infection erroneous documented as of this encounter
--- OUTSIDE RECORDS SUMMARY | 2022-04-01 12:36 | XMS_ITS | Encounter Summary ---
:1960 Author Organization [place] Address [address] [place] [address] Care Team Providers Name Role Phone Unavailable Primary Care Provider Unavailable Encounter Details Date Type Department Care Team Description 06/30/2009 Historic Results INTERFACED REPORT Rina Shin MD [facility] [address] [place], [place] [address] (Wo rk) Social History [...] esults for this URINE (FL, RH, SH) CREDIT FRONT OFFICE DEVELOPER procedure are in the results section. CBC WITH PLATELETS & STAT 06/30/2009 11:10 Res ults for this DIFFERENTIAL AM CREDIT FRONT OFFICE DEVELOPER procedure are i n the results section. ETHYL ALCOHOL LEVEL STAT 06/30/2009 11:10 Resu lts for this AM CREDIT FRONT OFFICE DEVELOPER procedure are i n the results section. BASIC METABOLIC PANEL STAT 06/30/2009 11:10 Re sults for this AM CREDIT FRONT OFFICE DEVELOPER procedure are i n the results section. documented in this encounter Results Drug abuse screen 77 urine (FL, RH, SH) (06/30/2009 1:15 PM CREDIT FRONT OFFICE DEVELOPER) [facility] Method Time Signature Amphetamine Qual Negative [...] / Volume Laterality 06/30/2009 1:15 PM 0 CREDIT FRONT OFFICE DEVELOPER 10:49 AM CREDIT FRONT OFFICE DEVELOPER Rina Shin MD LAB - URINE ORDERABLES Performing Organization Address City/State/ZIP Code Phon e Number MISYS (ABNORMAL) CBC with platelets differential (06/30/2009 11:10 AM CREDIT FRONT OFFICE DEVELOPER) [facility] gist Method Time Signature MCV [...] / Volume Laterality 06/30/2009 11:10 06/30/2009 AM CREDIT FRONT OFFICE DEVELOPER 10:49 AM CREDIT FRONT OFFICE DEVELOPER Rina Shin MD LAB - BLOOD ORDERABLES Performing Organization Address City/State/ZIP Code Phon e Number MISYS (ABNORMAL) Basic metabolic panel (06/30/2009 11:10 AM CREDIT FRONT OFFICE DEVELOPER) P athologist Signature Sodium 135 133 - [...] / Volume Laterality 06/30/2009 11:10 06/30/2009 AM CREDIT FRONT OFFICE DEVELOPER 10:49 AM CREDIT FRONT OFFICE DEVELOPER Rina Shin MD LAB - BLOOD ORDERABLES Performing Organization Address City/State/ZIP Code Phon e Number MISYS (ABNORMAL) Alcohol ethyl (06/30/2009 11:10 AM CREDIT FRONT OFFICE DEVELOPER) P athologist Signature Ethanol g/dL 0.37 (HH) 0.01 g/dL MISYS Comment: Specimen run with a dilution Critical Value called to and read back by KAPIL) ON 06.30.09 AT 1142 BY MARY Specimen Anatomical Collection Method Collection Time Receive d Time (Source) Location / / Volume Laterality 06/30/2009 11:10 06/30/2009 AM CREDIT FRONT OFFICE DEVELOPER 10:49 AM CREDIT FRONT OFFICE DEVELOPER Rina Shin MD LAB - BLOOD ORDERABLES Performing Organization Address City/State/ZIP Code Phon e Number MISYS documented in this encounter Visit Diagnoses Not on filedocumented in this encounter Additional Health Concerns Infection Onset Date Last Indicated Resolved Time MRSA-Contact IsolationComment: 0 04/26/2021 11:03 AM CREDIT FRONT OFFICE DEVELOPER Infection erroneous documented as of this encounter
--- OUTSIDE RECORDS SUMMARY | 2022-04-01 12:36 | XMS_ITS | Encounter Summary ---
:1960 Author Organization [place] Address [address] [place] [address] Care Team Providers Name Role Phone Unavailable Primary Care Provider Unavailable Encounter Details Date Type Department Care Team Description 06/05/2013 Historic Results [facility] Heart Unknown, Doct or, Clinic [address] [place] [address] Social History Tobacco Use Types Packs/Day Years [...] 12:00 AM Resu lts for this RESULTS REPAIRER SHOE STICKS procedure are i n the results section. documented in this encounter Results GEMMS Historical Results (06/05/2013 12:00 AM REPAIRER SHOE STICKS) [facility] gist Method Time Signature Triglycerides 63 [...] Time MRSA-Contact IsolationComment: 0 04/26/2021 11:03 AM REPAIRER SHOE STICKS Infection erroneous documented as of this encounter
--- OUTSIDE RECORDS SUMMARY | 2022-04-01 12:36 | XMS_ITS | Encounter Summary ---
:1960 Author Organization [place] Address [address] [place] [address] Care Team Providers Name Role Phone Unavailable Primary Care Provider Unavailable Reason for Visit Reason Onset Date Comments Previsit 06/26/2014 07/03/[address] Farias Encounter Details Date Type Department Care Team Description 06/26/2014 PRE VISIT [facility] Heart Juan Farias, Previsit (07/03/14 OV Clinic Idris HERBERT with Dr. Farias) [address] [facility] [address] [facility] [address] [place] [address] [place] [id number] Social History Tobacco Use Types Packs/Day Years [...] Time MRSA-Contact IsolationComment: 0 04/26/2021 11:03 AM CENTRIFUGAL SPINNER Infection erroneous documented as of this encounter
--- OUTSIDE RECORDS SUMMARY | 2022-04-01 12:36 | XMS_ITS | Encounter Summary ---
:1960 Author Organization [place] Address [address] [place] [address] Care Team Providers Name Role Phone Unavailable [...] 07/01/2009 9:22 AM Results f or this PIPE FOREMAN procedure are i n the results section . documented in this encounter Results EKG 12 LEAD (07/01/2009 9:22 AM PIPE FOREMAN) Component Value Ref Range Test Analysis Performed Pathologis t Method Time At Signature Ventricular Rate 130 BPM RADIOLOGY RESULTS Atrial Rate 130 BPM RADIOLOGY RESULTS WV Interval 124 ms RADIOLOGY RESULTS QRS Duration 86 ms RADIOLOGY RESULTS QT 296 ms RADIOLOGY RESULTS QTc 435 ms RADIOLOGY RESULTS P [place] 20 degrees RADIOLOGY RESULTS R AXIS -2 degrees RADIOLOGY RESULTS T [place] 25 degrees RADIOLOGY RESULTS Interpretation Sinus tachycardia [...] Volume Laterality 07/01/2009 9:22 AM 0 7:31 PIPE FOREMAN AM PIPE FOREMAN Transcripton Interface ECG ORDERABLES Performing Organization Address City/State/ZIP Code Phon e Number RADIOLOGY RESULTS documented in this encounter Visit Diagnoses Not on filedocumented in this encounter Additional Health Concerns Infection Onset Date Last Indicated Resolved Time MRSA-Contact IsolationComment: 0 04/26/2021 11:03 AM PIPE FOREMAN Infection erroneous documented as of this encounter
--- OUTSIDE RECORDS SUMMARY | 2022-04-01 12:36 | XMS_ITS | Encounter Summary ---
:1960 Author Organization [place] Address [address] [place] [address] Care Team Providers Name Role Phone Unavailable Primary Care Provider Unavailable Reason for Visit Reason Onset Date Comments Refill Request 05/16/2014 Lipitor, Lisinopril/ Refill letter Encounter Details Date Type Department Care Team Description 05/16/2014 Refill [facility] Heart Juan Farias, Refill Request (Lipitor, Clinic Annika HERBERT Lisinopril/Refill [address] [facility] [address] [address] [address] letter) [address] [place] [address] [place] [id number] (Wo rk) Social History Tobacco Use Types [...] Time MRSA-Contact IsolationComment: 0 04/26/2021 11:03 AM AREA CLEANER Infection erroneous documented as of this encounter
--- OUTSIDE RECORDS SUMMARY | 2022-04-01 12:36 | XMS_ITS | Encounter Summary ---
:1960 Author Organization [place] Address [address] [place] [address] Care Team Providers Name Role Phone Unavailable [...] as of this encounter Progress Notes Interface, Fish Warden - 07/10/2010 8:22 AM CDT Discharge Summary - Reason for Discharge Discharge from facility, To home - Progress toward Goals met, see daily notes for details. pt not achieving short term seen by documenting therapist. Info per chart. goals/senior living goals Signatures Kimberly Braden (PT)[Signed 07:36] Authored: Discharge Summary Co Signer: Discharge Summary Joan Blackburn (PT Educator Senior Clinical)[Signed 15:41] Authored: Discharge Summary documented in this encounter Plan of Treatment Not on filedocumented as of this encounter Visit Diagnoses Not on filedocumented in this encounter Additional Health Concerns Infection Onset Date Last Indicated Resolved Time MRSA-Contact IsolationComment: 0 04/26/2021 11:03 AM CONTENT DESIGNER Infection erroneous documented as of this encounter
--- OUTSIDE RECORDS SUMMARY | 2022-04-01 12:36 | XMS_ITS | Encounter Summary ---
:1960 Author Organization [place] Address [address] [place] [address] Care Team Providers Name Role Phone Unavailable Primary Care Provider Unavailable Encounter Details Date Type Department Care Team Description 06/30/2009 Results Only [facility] Rina Shin MD Hospital Results EMERGENCY PHYSI CECILIO MCKOY [address] [place], [place] [address] (Wo rk) Social History [...] 06/30/2009 11:31 AM Results for this CONTRAST FILBERT GROWER procedure are i n the results section. documented in this encounter Results CT SCAN HEAD/BRAIN (06/30/2009 11:31 AM FILBERT GROWER) Anatomical Region Laterality Modality Other Specimen (Source) Anatomical Collection Method Collection Time Re ceived Time Location / / Volume Laterality 06/30/2009 11:31 AM FILBERT GROWER Impressions 07/01/2009 12:[address] HEAD WITHOUT CONTRAST June 30, 2009 [...] Time MRSA-Contact IsolationComment: 0 04/26/2021 11:03 AM FILBERT GROWER Infection erroneous documented as of this encounter
--- OUTSIDE RECORDS SUMMARY | 2022-04-01 12:36 | XMS_ITS | Encounter Summary ---
:1960 Author Organization [place] Address [address] [place] [address] Care Team Providers Name Role Phone Unavailable Primary Care Provider Unavailable Encounter Details Date Type Department Care Team Description 07/04/2009 Historic Notes INTERFACED REPORT Junior Amaya MD [address] [place], [place] [address] (Wo rk) Social History [...] the president, knows Lisa played for the [employer] last year, had previously been with the [...] some kind. sister already discussing it with [facility] 2. alcohol withdrawal: mostly resolved 3. [...] Time MRSA-Contact IsolationComment: 0 04/26/2021 11:03 AM COMBINATION BUILDING INSPECTOR Infection erroneous documented as of this encounter
--- OUTSIDE RECORDS SUMMARY | 2022-04-01 12:36 | XMS_ITS | Encounter Summary ---
:1960 Author Organization [place] Address [facility] [place] [address] Care Team Providers Name Role Phone No Ref-Primary, Physician Primary Care Provider [phone] Juan Farias MD Unavailable Edilia Trejo APRN GEAR REPAIR SUPERVISOR Unavailable Glendy vailable Juan Farias MD Unavailable Denise Connell-C Unavailable [phone] Edilia Trejo APRN GEAR REPAIR SUPERVISOR Unavailable Glendy vailable Denise Connell-C Unavailable [phone] Juan Farias MD Primary Care Provider Dana Barry PA-C Unavailable [phone] Encounter Details Date Type Department Care Team Description 06/05/2013 Office Visit-[facility] Heart Juan Farias MD [address] [place] [address] [place] [address] [phone] Social History Tobacco Use Types Packs/Day Years [...] old Referring Physician: JEROME MORENO Referring Clinic: [facility] CURRENT DIAGNOSES 1. - Hypertension, benign, 401.1 [...] with female partner; Place of - [place]; Job Description - makes [employer]; Hours Worked - 50 hours per week; [...] Time MRSA-Contact IsolationComment: 0 04/26/2021 11:03 AM DITCH CLEANER Infection erroneous MRSA 05/13/2021 05/13/2021 Rule Out C-difficile 12/06/2021 12/06/2021 12/07/2021 8:46 AM CDT documented as of this encounter Care Teams Painting Technician Relationship Specialty Start Date End Date No Ref-Primary, PCP - General 07/03/14 12/03/21 Physician Juan Farias MD PCP - General Cardiovascular Disease 12/04/21 [address] [place] [address] Juan Farias MD Assigned Heart and 02/14/20 10/03/20 [address] Vascular Provider [address] [place] [address] Maya, Assigned Heart and 10/04/20 Edilia Chapman APRN Vascular Provider GEAR REPAIR SUPERVISOR NO INFO AVAILABLE 02/10/2022 Juan Farias MD Assigned Heart and 04/04/21 07/31/21 [address] Vascular Provider [address] [place], [place] [address] Denise Connell Physician Mixer Lever Operator Cardiovascular Disease 08/12/21 MARIET[place] Watson [address] [place], [place] [address] Maya, Assigned Heart and 08/01/21 2 Edilia Chapman APRN Vascular Provider GUILHERME NO INFO AVAILABLE 02/10/2022 Denise Connell Assigned Heart and 08/22/21 01/14/22 MARIETTA Watson Vascular Provider [address] [place], [place] [address] Dana Barry Assigned Heart and 01/15/22 MARIETTA Teague Vascular Provider [address] [place], [place] [address] documented as of this encounter
--- OUTSIDE RECORDS SUMMARY | 2022-04-01 12:36 | XMS_ITS | Encounter Summary ---
:1960 Author Organization [place] Address [facility] [place] [address] Care Team Providers Name Role Phone No Ref-Primary, Physician Primary Care Provider [phone] Juan Farias MD Unavailable Edilia Trejo APRN INSTRUCTOR ADJUNCT PHARMACY TECHNICIAN Unavailable Glendy vailable Juan Farias MD Unavailable Denise Connell-C Unavailable [phone] Edilia Trejo APRN INSTRUCTOR ADJUNCT PHARMACY TECHNICIAN Unavailable Glendy vailable Denise Connell-C Unavailable [phone] Juan Farias MD Primary Care Provider Dana Barry PA-C Unavailable [phone] Encounter Details Date Type Department Care Team Description 08/20/2010 Office Visit-[facility] Heart Juan Farias MD [address] [place] [address] [place] [address] [phone] Social History Tobacco Use Types Packs/Day Years [...] old Referring Physician: JEROME MORENO Referring Clinic: [facility] CURRENT DIAGNOSES 1. - Hypercholesterolemia, 272.0 2. [...] in June,, when he was hospitalized at [facility] for alcohol withdrawal issues. On examination today [...] lives with female partner; Place of - [place]; Job Description - makes [employer]; Hours Worked - 60 hours per week; [...] MRSA-Contact IsolationComment: 0 04/26/2021 11:03 AM VP RESEARCH Infection erroneous MRSA 05/13/2021 05/13/2021 Rule Out C-difficile 12/06/2021 12/06/202112/0712/07/2021 8:46 AM CDT documented as of this encounter Care Teams Hot Packer Relationship Specialty Start Date End Date No Ref-Primary, PCP - General 07/03/14 12/03/21 Physician Juan Farias MD PCP - General Cardiovascular Disease 12/04/[address] [place] [address] Juan Farias MD Assigned Heart and 02/14/20 10/03/[address] Vascular Provider [address] [place] [address] Maya, Assigned Heart and 10/04/20 Edilia Chapman APRN Vascular Provider INSTRUCTOR ADJUNCT PHARMACY TECHNICIAN NO INFO AVAILABLE 02/10/2022 Juan Farias MD Assigned Heart and 04/04/21 07/31/[address] Vascular Provider [address] [place] [address] Denise Connell Physician Auto Painter Helper Cardiovascular Disease 08/12/21 MARIET[place] Watson [address] [place] [address] Maya, Assigned Heart and 08/01/21 2 Edilia Chapman APRN Vascular Provider INSTRUCTOR ADJUNCT PHARMACY TECHNICIAN NO INFO AVAILABLE 02/10/2022 Denise Connell Assigned Heart and 08/22/21 01/14/22 MARIETTA Watson Vascular Provider [address] [place], [place] [address] Dana Barry Assigned Heart and 01/15/22 MARIETTA Teague Vascular Provider [address] [place], [place] [address] documented as of this encounter
--- OUTSIDE RECORDS SUMMARY | 2022-04-01 12:36 | XMS_ITS | Encounter Summary ---
:1960 Author Organization [place] Address [address] [place] [address] Care Team Providers Name Role Phone Unavailable Primary Care Provider Unavailable Encounter Details Date Type Department Care Team Description 06/30/2009 Admission [facility] Cali Dang (Wood Club Neck Whipper) [facility] MD Danie Results [address] [place] [address] (Wo rk) Social History Tobacco Use Types Packs/Day Years Used Date Smoking Tobacco: Never Alcohol Use Standard Drinks/Week Comments Yes 0 (1 standard drink = 0.6 oz pure alcoho l) socially approx 5 drinks/wk Sex Assigned at Date Recorded Not on file documented as of this encounter Progress Notes Cali Dang - 07/03/2009 8:19 PM PILING CUTTER FINAL CHIEF COMPLAINT: Fall. HISTORY OF PRESENT [...] symptoms related to the fall. Per our joiner notes, breathalyzer at the scene revealed an [...] Lipitor 20 mg daily. 4. Multivitamin. 5. Aguq-xjy-undhtnd magnesium supplement. DRUG ALLERGIES: No known drug [...] upper and lower extremities bilaterally. Strength including emergency response officer, biceps, triceps, dorsi and plantar flexion are [...] MD MT: [id number] Name: ELIJAH AMADOR Account: [id number] : 1960 Admitted: [id number] Document: [id number] NG CUTTER documented in this encounter Plan of Treatment Not on filedocumented as of this encounter Visit Diagnoses Not on filedocumented in this encounter Additional Health Concerns Infection Onset Date Last Indicated Resolved Time MRSA-Contact IsolationComment: 0 04/26/2021 11:03 AM PILING CUTTER Infection erroneous documented as of this encounter
--- OUTSIDE RECORDS SUMMARY | 2022-04-01 12:36 | XMS_ITS | Encounter Summary ---
:1960 Author Organization [place] Address [address] [place] [address] Care Team Providers Name Role Phone Unavailable [...] as of this encounter Progress Notes Interface, Job Training Specialist - 07/10/2010 8:46 AM CDT Progress Note - :: Pt scores etoh scores 7-11. medicated with 6 iv and po 1 mg ativan. Inc of urine and stool, rondon palced. Attempts to climb out of bed. See order to transfer to ICU T max 100.1, [id number]'s. Started Metroprolol IV. Transfering to unit at 1230 Signatures SHRUTI BREWER (OZZIE)[Signed 12:09] Authored: Progress Note Interface, Job Training Specialist - 07/10/2010 8:45 AM CDT Call from [...] pt as able. [Signature] Author: Fina Mayfield ([facility]) [Signed 13:32] documented in this encounter Plan of Treatment Not on filedocumented as of this encounter Visit Diagnoses Not on filedocumented in this encounter Additional Health Concerns Infection Onset Date Last Indicated Resolved Time MRSA-Contact IsolationComment: 0 04/26/2021 11:03 AM HOME ADMINISTRATOR Infection erroneous documented as of this encounter
--- OUTSIDE RECORDS SUMMARY | 2022-04-01 12:36 | XMS_ITS | Encounter Summary ---
:1960 Author Organization [place] Address [address] [place] [address] Care Team Providers Name Role Phone Unavailable Primary Care Provider Unavailable Encounter Details Date Type Department Care Team Description 07/01/2009 Historic Notes INTERFACED REPORT Cali Dang MD [address] [place], [place] [address] (Wo rk) Social History [...] to correctly state year, president, and location ([place]) HEART: Normal S1, S2 with no edema. [...] time. needs ICU care. d/w nursing supervisor real estate office; ICU is full, but they will transfer [...] MRSA-Contact IsolationComment: 0 04/26/2021 11:03 AM SPACE PHYSICIST Infection erroneous documented as of this encounter
--- OUTSIDE RECORDS SUMMARY | 2022-04-01 12:36 | XMS_ITS | Encounter Summary ---
:1960 Author Organization [place] Address [address] [place] [address] Care Team Providers Name Role Phone Unavailable [...] 3/5 items. See below. - Comment: Blessed Zcontpgrrxl-Gvxpbi-Pydrgihkwnyhx Test (Short Blessed Test). Total Weighted Error [...] minimum assist (75% patients effort) Dynamic: - Ylv-bb-Dxcic Balance: minimum assist (75% patients effort), mod [...] Mobility: Rolling/Turning - Level of stand-by assist [place]: - Physical 1 person assist Assist/Nonphysical Assist: Bed Mobility: Sit to Supine - Level of minimum assist (75% patients effort) [place]: - Physical 1 person assist Assist/Nonphysical Assist: - Assistive Device: bed rails Bed Mobility: Supine to Sit - Level of minimum assist (75% patients effort) [place]: - Physical 1 person assist Assist/Nonphysical Assist: Bed Mobility Analysis - Impairments impaired balance; cognition impaired; decreased Contributing to strength Impaired Bed Mobility: Transfer: Sit to Stand - Level of minimum assist (75% patients effort) [place]: - Physical 1 person assist Assist/Nonphysical Assist: - Assistive Device: rolling walker Transfer: Stand to Sit - Level of moderate assist (50% patients effort) [place]: - Physical 1 person assist Assist/Nonphysical Assist: - Assistive Device: rolling walker Transfer: Sit/Stand Safety Analysis - Transfer Safety decreased balance during turns; losing balance Concerns Noted: backward; with transfers leans posteriorly - Impairments impaired balance; cognition impaired; decreased Contributing to strength Impaired Transfers: Transfer: Bed to Chair/Chair to Bed - Level of minimum assist (75% patients effort) [place]: - Physical 1 person assist Assist/Nonphysical Assist: - Assistive Device: rolling walker Transfer: Bed to Chair Analysis - Transfer Safety losing balance backward Concerns Noted: - Impairments impaired balance; cognition impaired; decreased Contributing to strength Impaired Transfers: Toilet Transfer - Level of moderate assist (50% patients effort) [place]: - Physical 1 person assist Assist/Nonphysical Assist: - Assistive Device: rolling walker; grab bars; with comfort height toilet. Toilet Transfer Analysis - Transfer Safety decreased balance during turns; losing balance Concerns Noted: backward - Impairments cognition impaired; impaired balance; decreased Contributing to strength Impaired Transfers: Toilet Hygiene - Level of moderate assist (50% patients effort), to manage Harlan: depends after toileting, losing balance backwards, leaning posteriorly - Physical 1 person assist Assist/Nonphysical Assist: Tub/Shower Transfer Safety Analysis - Comments: To be assessed. Has walk in shower and tub/shower. Upper Body Dressing - Level of minimum assist (75% patients effort) Harlan: - Physical 1 person assist Assist/Nonphysical Assist: Lower Body Dressing - Level of moderate assist (50% patients effort) Harlan: - Physical 1 person assist Assist/Nonphysical Assist: [...] goals Potential: - Demonstrates need for PT; ASPHALT DAUBER referral to another service: - Predicted Duration [...] MRSA-Contact IsolationComment: 0 04/26/2021 11:03 AM HEALTH INSURANCE AGENT Infection erroneous documented as of this encounter
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
--- OUTSIDE RECORDS SUMMARY | 2022-04-01 12:36 | XMS_ITS | Encounter Summary ---
:1960 Author Organization [place] Address [address] [place] [address] Care Team Providers Name Role Phone Unavailable Primary Care Provider Unavailable Encounter Details Date Type Department Care Team Description 06/30/2009 Emergency room [facility] Rina Shin MD Hospital Results EMERGENCY PHYSI CECILIO MCKOY [address] [place], [place] [address] (Wo rk) Social History Tobacco Use Types Packs/Day Years Used Date Smoking Tobacco: Never Alcohol Use Standard Drinks/Week Comments Yes 0 (1 standard drink = 0.6 oz pure alcoho l) socially approx 5 drinks/wk Sex Assigned at Date Recorded Not on file documented as of this encounter Progress Notes Rnia Shin - 07/04/2009 2:40 AM TUBE MACHINE OPERATOR FINAL CHIEF COMPLAINT: Fall. HISTORY OF PRESENT [...] MD MT: [id number] Name: ELIJAH BROWN Account: [id number] : 1960 Visit Date: 06/30/2009 Document: [id number] MACHINE OPERATOR documented in this encounter Plan of Treatment Not on filedocumented as of this encounter Visit Diagnoses Not on filedocumented in this encounter Additional Health Concerns Infection Onset Date Last Indicated Resolved Time MRSA-Contact IsolationComment: 0 04/26/2021 11:03 AM TUBE 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
--- OUTSIDE RECORDS SUMMARY | 2022-04-01 12:37 | XMS_ITS | Encounter Summary ---
:1960 Author Organization [place] Address [address] [place] [address] Care Team Providers Name Role Phone Unavailable Primary Care Provider Unavailable Encounter Details Date Type Department Care Team Description 03/19/2009 Historic Notes INTERFACED REPORT Deep Alston MD [address] [place], [place] [address] (Wo rk) Social History [...] MRSA-Contact IsolationComment: 0 04/26/2021 11:03 AM STUDENT SUCCESS COACH Infection erroneous documented as of this encounter
--- OUTSIDE RECORDS SUMMARY | 2022-04-01 12:37 | XMS_ITS | Encounter Summary ---
:1960 Author Organization [place] Address [address] [place] [address] Care Team Providers Name Role Phone Unavailable Primary Care Provider Unavailable Encounter Details Date Type Department Care Team Description 03/15/2009 Historic Notes INTERFACED REPORT Deep Alston MD [address] [place], [place] [address] (Wo rk) Social [...] Time MRSA-Contact IsolationComment: 0 04/26/2021 11:03 AM SWIMMER Infection erroneous documented as of this encounter
--- OUTSIDE RECORDS SUMMARY | 2022-04-01 12:37 | XMS_ITS | Encounter Summary ---
:1960 Author Organization [place] Address [address] [place] [address] Care Team Providers Name Role Phone Unavailable [...] as of this encounter Progress Notes Interface, Global Marketing Operations Manager - 07/10/2010 3:09 PM CDT Nutrition Diagnosis - Nutrition diagnosis: PREVIOUS (03/16): Inadequtate oral food/beverage intake related to intubation AEB pt need for TF. Anthropometrics - Admission weight: 86kg - Current weight: 84.2kg - Dosing weight: 86kg Nutrition Prescription/Intake Tolerance - Nutrition CLear Liquid Prescription: HTL - Comments:: TF d/c'd on 03/18. - Intake/tolerance: Per HEATING UNIT MECHANIC, pt was drinking thin liquids last night [...] toxins A and B negative ARF improved HEATING UNIT MECHANIC following + Temp Estimated Needs - Needs based on: Admit wt: 86kg - Energy needs: 3562-9893 kcal (25-30kcal/kg) - wt maintenance - Protein needs: 85-100 g pro (1.2-1.4g/kg) - repletion - Fluid needs: 8129-7737 mL fluid (25-30mL/kg) Evaluation - Progress toward [...] kcal/pro needs. Interventions - Interventions: Spoke with HEATING UNIT MECHANIC regarding diet order. Pt on CLear liquids, HTL. WIll send frosty thick/resource shake with meals TID once diet adv beyond clears. Encourage intake. - Goals: Pt to consume >50% of meals. - Follow-up: Monitor po intake, diet adv per HEATING UNIT MECHANIC. Monitor labs - protein labs, electrolytes. Monitor stooling. - Recommendations: Rec imodium. Rec diet adv per HEATING UNIT MECHANIC. Signatures NIRMALA LAND (RD, LD)[Signed 10:07] Authored: Nutrition Diagnosis, Anthropometrics, Nutrition Prescription/Intake Tolerance, Labs/Medications, Procedures, Physical Findings, Estimated Needs, Evaluation, Current Nutrition Diagnosis, Interventions Interface, Global Marketing Operations Manager - 07/10/2010 3:09 PM CDT General Information [...] Scale: Thin Liquid Trial Results VFSS Evaluation: [place]-Thick Texture Trial - Mode of Presentation cup; spoon - Order of Presentation 4, 5, 6, - Preparatory Phase WFL - Oral Phase WFL - Rosenbek's (1) no aspiration, contrast does not enter Penetration airway Aspiration Scale: [place]-Thick Liquid Trial Results VFSS Evaluation: Honey-Thick Texture [...] Evaluation: Thin Liquid Texture Trial, VFSS Evaluation: [place]-Thick Texture Trial, VFSS Evaluation: Honey-Thick Texture Trial, VFSS Evaluation: Pudding-Thick Texture Trial, VFSS Evaluation: Semisolid Texture Trial, Swallowing Compensations, Impression Interface, Global Marketing Operations Manager - 07/10/2010 3:08 PM CDT General Information [...] Mobility: Rolling/Turning - Level of stand-by assist [place]: Bed Mobility: Scooting/Bridging - Level of stand-by assist [place]: Bed Mobility: Sit to Supine - Level of stand-by assist [place]: Bed Mobility: Supine to Sit - Level of stand-by assist [place]: Bed Mobility Analysis - Impairments impaired balance Contributing to Impaired Bed Mobility: Transfer: Sit to Stand - Level of stand-by assist [place]: Transfer: Stand to Sit - Level of stand-by assist [place]: Toilet Transfer - Level of stand-by assist [place]: Toilet Transfer Analysis - Impairments impaired balance Contributing to Impaired Transfers: Grooming - Level of stand-by assist, not very complete with shaving, [place]: but unaware of this - Physical supervision Assist/Nonphysical Assist: Lower Body Dressing - Level of stand-by assist [place]: Treatment Plan - Treatments: ADL Retraining, Functional [...] Body Dressing, Treatment Plan, Clinical Impression Interface, Global Marketing Operations Manager - 07/10/2010 3:08 PM CDT SH--Ongoing spiritual/emotional [...] this time. Following. [Signature] Author: Luciana Rose (Community Educator) [Signed 14:32] Interface, Global Marketing Operations Manager - 07/10/2010 3:08 PM CDT Attempted to meet with pt today. He was in the bathroom during the first attempt and out of the room on the second attempt. SWS will continue to try to meet with pt regarding CD resources. [Signature] Author: GELACIO MARTIN ([facility]) [Signed 14:48] Interface, Global Marketing Operations Manager - 07/10/2010 3:08 PM CDT [facility]. A. Met with the pt to discuss the consult order. Pt reports that he has struggled with alcohol use. He has not had treatment. He was not interested in treatment at this time. He explained how this hospitalization has helped him to understand the importance of not drinking. I did discuss outpt [employer] health evals/screenings through [facility] with him and provided him wiht a handout for future use. I also discussed AA meetings and such with the pt as well. Information to connect with these programs was also in the handout. P. Pt provided with CD service information. [Signature] Author: GELACIO MARTIN ([facility]) [Signed 16:20] documented in this encounter Plan of Treatment Not on filedocumented as of this encounter Visit Diagnoses Not on filedocumented in this encounter Additional Health Concerns Infection Onset Date Last Indicated Resolved Time MRSA-Contact IsolationComment: 0 04/26/2021 11:03 AM DIVERSIONAL THERAPIST Infection erroneous documented as of this encounter
--- OUTSIDE RECORDS SUMMARY | 2022-04-01 12:37 | XMS_ITS | Encounter Summary ---
:1960 Author Organization [facility] Address [address] [place] [address] Care Team Providers Name Role Phone Unavailable [...] as of this encounter Progress Notes Interface, Cattle Rancher - 07/10/2010 3:24 PM CDT SWS D: SW received order to assist pt. w/ discharge planning. A: Pt. is currently on a vent and is not arousable. P: SW will continue to follow and meet w/ pt. once he is awake and able to be interviewed. [Signature] Author: Mai Orosco (IRRADIATED FUEL HANDLER) [Signed 10:30] Interface, Cattle Rancher - 07/10/2010 3:24 PM CDT Tube Feeding Consult: Medications reviewed for drug/nutrient interaction and administration by feeding tube. No changes recommended at this time. [Signature] Author: Brian Hoyos (Pharmacist) [Signed 10:44] Interface, Cattle Rancher - 07/10/2010 3:23 PM CDT Pt remains intubated on ventilator. cmv 8/650/30%/+5, wean attempted today on PS +7/+5. weaning failed due to increased RR and decreased Vt and sats. Sx thick yellow sputum. Oral sx bloody. Sats 98-100%, HR 62-74, [Signature] Author: Eloina Andrews ([facility]) [Signed 13:20] Interface, Cattle Rancher - 07/10/2010 3:23 PM CDT Nutrition Assessment - Reason for assessment Tube feeding Anthropometrics - Height: 70 - Admission weight: 86kg - IBW (Lima body 75.5kg weight): - % IBW (Lima body 114% weight): - Dosing weight: 86kg [...] on: Admit wt: 86kg - Energy needs: 9312-1716 kcal (25-30kcal/kg) - Protein needs: 50-70g pro (.6-.8g/kg) - renal failure, no further dialysis planned at this time - Fluid needs: 6202-1981 mL fluid (25-30mL/kg) Nutrition Diagnosis - Nutrition [...] Time MRSA-Contact IsolationComment: 0 04/26/2021 11:03 AM GEOLOGICAL SURVEY FIELD ASSISTANT Infection erroneous documented as of this encounter
--- OUTSIDE RECORDS SUMMARY | 2022-04-01 12:37 | XMS_ITS | Encounter Summary ---
:1960 Author Organization [facility] Address [address] [place] [address] Care Team Providers Name Role Phone Unavailable Primary Care Provider Unavailable Encounter Details Date Type Department Care Team Description 03/21/2009 Discharge Summary [facility] Kristen, (Mobility Scooter Repairer) [facility] Kevin Lee DO Results [address] [place] [address] (Wo rk) Social History Tobacco Use Types Packs/Day Years Used Date Smoking Tobacco: Never Alcohol Use Standard Drinks/Week Comments Yes 0 (1 standard drink = 0.6 oz pure alcoho l) socially approx 5 drinks/wk Sex Assigned at Date Recorded Not on file documented as of this encounter Progress Notes Kevin Peterson - 03/24/2009 10:04 PM AOC AIRSPACE CONTROL OFFICER FINAL DISCHARGE DIAGNOSES: 1. Acute rhabdomyolysis, resolved. [...] up with his primary care provider at [facility] within 2 weeks for hospital followup and [...] DO MT: [id number] Name: ELIJAH BROWN Account: [id number] : 1960 Admit Date: Discharge Date: 03/21/2009 Document: [id number] cc: [facility] AIRSPACE CONTROL OFFICER documented in this encounter Plan of Treatment Not on filedocumented as of this encounter Visit Diagnoses Not on filedocumented in this encounter Additional Health Concerns Infection Onset Date Last Indicated Resolved Time MRSA-Contact IsolationComment: 0 04/26/2021 11:03 AM AOC AIRSPACE CONTROL OFFICER Infection erroneous documented as of this encounter
--- OUTSIDE RECORDS SUMMARY | 2022-04-01 12:37 | XMS_ITS | Encounter Summary ---
:1960 Author Organization [facility] Address [address] [place] [address] Care Team Providers Name Role Phone Unavailable Primary Care Provider Unavailable Encounter Details Date Type Department Care Team Description 03/17/2009 Results Only [facility] Liam Traylor MD Hospital Results [address] [place], [place] [address] (Wo rk) Social History [...] Procedure Name Priority Date/Time Associated Diagnosis Comme [facility] CHEST ONE VIEW Routine 03/17/2009 1:26 PM Resu lts for this MOTEL KEEPER procedure are i n the results section. documented in this encounter Results CHEST X-RAY 1 VW (03/17/2009 1:26 PM MOTEL KEEPER) Anatomical Region Laterality Modality Other Specimen (Source) Anatomical Collection Method Collection Time Re ceived Time Location / / Volume Laterality 03/17/2009 1:26 PM MOTEL KEEPER Impressions 03/18/2009 5:29 PM MOTEL KEEPER CHEST ONE VIEW PORTABLE ??March 17 009 [...] MRSA-Contact IsolationComment: 0 04/26/2021 11:03 AM MOTEL KEEPER Infection erroneous documented as of this encounter
--- OUTSIDE RECORDS SUMMARY | 2022-04-01 12:37 | XMS_ITS | Encounter Summary ---
:1960 Author Organization [facility] Address [address] [place] [address] Care Team Providers Name Role Phone Unavailable Primary Care Provider Unavailable Encounter Details Date Type Department Care Team Description 03/21/2009 Historic Results [facility] MD Hospitalists [address] [place], [place] [address] (Wo rk) Social History Tobacco Use Types [...] 03/21/2009 11:52 AM Resu lts for this CLASSROOM PARAPROFESSIONAL procedure are i n the results section. PHOSPHORUS Routine 03/21/2009 6:22 AM Results f or this CLASSROOM PARAPROFESSIONAL procedure are i n the results section. MAGNESIUM Routine 03/21/2009 6:22 AM Results f or this CLASSROOM PARAPROFESSIONAL procedure are i n the results section. BASIC METABOLIC Routine 03/21/2009 6:22 AM Result s for this PANEL CLASSROOM PARAPROFESSIONAL procedure are i n the results section. documented in this encounter Results (ABNORMAL) Glucose by meter (03/21/2009 11:52 AM CLASSROOM PARAPROFESSIONAL) P athologist Signature Glucose 128 (H) 60 - 99 MISYS mg/dL Specimen Anatomical Collection Method Collection Time Receive d Time (Source) Location / / Volume Laterality 03/21/2009 11:52 03/21/2009 AM CLASSROOM PARAPROFESSIONAL 12:10 PM CLASSROOM PARAPROFESSIONAL Kaiden REHMAN - BEAKER POCT Performing Organization Address City/State/[facility] Phon e Number MISYS (ABNORMAL) Basic metabolic panel (03/21/2009 6:22 AM CLASSROOM PARAPROFESSIONAL) P athologist Signature Sodium 139 133 - [...] / Volume Laterality 03/21/2009 6:22 AM 9 CLASSROOM PARAPROFESSIONAL Liam Traylor MD LAB - BLOOD ORDERABLES Performing Organization Address [facility] Phon e Number MISYS Phosphorus (03/21/2009 6:22 AM CLASSROOM PARAPROFESSIONAL) athologist Signature Phosphorus 2.7 2.5 - 4.5 MISYS mg/dL Specimen Anatomical Collection Method Collection Time Receive d Time (Source) Location / / Volume Laterality 03/21/2009 6:22 AM 9 6:30 CLASSROOM PARAPROFESSIONAL AM CLASSROOM PARAPROFESSIONAL Liam Traylor MD LAB - BLOOD ORDERABLES Performing Organization Address City/[facility] Phon e Number MISYS (ABNORMAL) Magnesium (03/21/2009 6:22 AM CLASSROOM PARAPROFESSIONAL) athologist Signature Magnesium 1.5 (L) 1.6 - 2.3 MISYS mg/dL Comment: Reviewed, acceptable Specimen Anatomical Collection Method Collection Time Receive d Time (Source) Location / / Volume Laterality 03/21/2009 6:22 AM 9 6:42 CLASSROOM PARAPROFESSIONAL AM CLASSROOM PARAPROFESSIONAL Liam Traylor MD LAB - BLOOD ORDERABLES Performing Organization Address City/[facility]/ZIP Code Phon e Number MISYS documented in this encounter Visit Diagnoses Not on filedocumented in this encounter Additional Health Concerns Infection Onset Date Last Indicated Resolved Time MRSA-Contact IsolationComment: 0 04/26/2021 11:03 AM CLASSROOM PARAPROFESSIONAL Infection erroneous documented as of this encounter
--- OUTSIDE RECORDS SUMMARY | 2022-04-01 12:37 | XMS_ITS | Encounter Summary ---
:1960 Author Organization [facility] Address [address] [place] [address] Care Team Providers Name Role Phone Unavailable Primary Care Provider Unavailable Encounter Details Date Type Department Care Team Description 03/19/2009 Historic Results [facility]ni Church MD Hospitalists [address] [place], [place] [address] (Wo rk) Social History [...] 03/19/2009 10:05 PM Resu lts for this RUSTIC TERRAZZO SETTER procedure are i n the results section. GLUCOSE BY METER Routine 03/19/2009 6:26 PM Resul ts for this RUSTIC TERRAZZO SETTER procedure are i n the results section. GLUCOSE BY METER Routine 03/19/2009 11:57 AM Resu lts for this RUSTIC TERRAZZO SETTER procedure are i n the results section. GLUCOSE BY METER Routine 03/19/2009 8:21 AM Resul ts for this RUSTIC TERRAZZO SETTER procedure are i n the results section. PHOSPHORUS Routine 03/19/2009 6:20 AM Results f or this RUSTIC TERRAZZO SETTER procedure are i n the results section. MAGNESIUM Routine 03/19/2009 6:20 AM Results f or this RUSTIC TERRAZZO SETTER procedure are i n the results section. BASIC METABOLIC Routine 03/19/2009 6:20 AM Result s for this PANEL RUSTIC TERRAZZO SETTER procedure are i n the results section. CBC WITH PLATELETS Routine 03/19/2009 6:20 AM Res ults for this RUSTIC TERRAZZO SETTER procedure are i n the results section. C DIFFICILE TOXIN A Routine 03/19/2009 6:10 AM Re sults for this AND B (QUEST) RUSTIC TERRAZZO SETTER procedure are in the results section. C DIFFICILE CULTURE Routine 03/19/2009 6:10 AM Re sults for this RUSTIC TERRAZZO SETTER procedure are i n the results section. GLUCOSE BY METER Routine 03/19/2009 3:59 AM Resul ts for this RUSTIC TERRAZZO SETTER procedure are i n the results section. GLUCOSE BY METER Routine 03/19/2009 12:37 AM Resu lts for this RUSTIC TERRAZZO SETTER procedure are i n the results section. documented in this encounter Results (ABNORMAL) Glucose by meter (03/19/2009 10:05 PM RUSTIC TERRAZZO SETTER) P athologist Signature Glucose 145 (H) 60 - 99 MISYS mg/dL Specimen Anatomical Collection Method Collection Time Receive d Time (Source) Location / / Volume Laterality 03/19/2009 10:05 03/19/2009 PM RUSTIC TERRAZZO SETTER 10:11 PM RUSTIC TERRAZZO SETTER Kaiden REHMAN - JESICA POCT Performing Organization Address City/[facility] Phon e Number MISYS (ABNORMAL) Glucose by meter (03/19/2009 6:26 PM RUSTIC TERRAZZO SETTER) P athologist Signature Glucose 157 (H) 60 - 99 MISYS mg/dL Specimen Anatomical Collection Method Collection Time Receive d Time (Source) Location / / Volume Laterality 03/19/2009 6:26 PM 9 8:55 RUSTIC TERRAZZO SETTER PM RUSTIC TERRAZZO SETTER Kaiden REHMAN - JESICA POCT Performing Organization Address [facility] Phon e Number MISYS (ABNORMAL) Glucose by meter (03/19/2009 11:57 AM RUSTIC TERRAZZO SETTER) P athologist Signature Glucose 214 (H) 60 - 99 MISYS mg/dL Comment: RN/Dr notified Specimen Anatomical Collection Method Collection Time Receive d Time (Source) Location / / Volume Laterality 03/19/2009 11:57 03/19/2009 5:26 AM RUSTIC TERRAZZO SETTER PM RUSTIC TERRAZZO SETTER Kaiden Carpenter MD LAB - BEJAZ POCT Performing Organization Address [facility] Phon e Number MISYS (ABNORMAL) Glucose by meter (03/19/2009 8:21 AM RUSTIC TERRAZZO SETTER) P athologist Signature Glucose 176 (H) 60 - 99 MISYS mg/dL Comment: RN/Dr notified Specimen Anatomical Collection Method Collection Time Receive d Time (Source) Location / / Volume Laterality 03/19/2009 8:21 AM 9 5:25 RUSTIC TERRAZZO SETTER PM RUSTIC TERRAZZO SETTER Kaiden Carpenter MD LAB - BEAKER POCT Performing Organization Address City/State/ZIP Code Phon e Number MISYS (ABNORMAL) Basic metabolic panel (03/19/2009 6:20 AM RUSTIC TERRAZZO SETTER) Analysis Performed At Patho logist Time [...] / Volume Laterality 03/19/2009 6:20 AM 9 RUSTIC TERRAZZO SETTER Brian Turner MD LAB - BLOOD ORDERABLES Performing Organization Address City/State/ZIP Code Phon e Number MISYS (ABNORMAL) Magnesium (03/19/2009 6:20 AM RUSTIC TERRAZZO SETTER) athologist Signature Magnesium 1.3 (L) 1.6 - 2.3 MISYS mg/dL Specimen (Source) Anatomical Collection Method Collection Time Re ceived Time Location / / Volume Laterality 03/19/2009 6:20 AM 9 RUSTIC TERRAZZO SETTER Brian Turner MD LAB - BLOOD ORDERABLES Performing Organization Address City/State/ZIP Code Phon e Number MISYS Phosphorus (03/19/2009 6:20 AM RUSTIC TERRAZZO SETTER) P athologist Signature Phosphorus 2.5 2.5 - 4.5 MISYS mg/dL Specimen (Source) Anatomical Collection Method Collection Time Re ceived Time Location / / Volume Laterality 03/19/2009 6:20 AM 9 RUSTIC TERRAZZO SETTER Brian Turner MD LAB - BLOOD ORDERABLES Performing Organization Address City/State/ZIP Code Phon e Number MISYS (ABNORMAL) CBC with platelets (03/19/2009 6:20 AM RUSTIC TERRAZZO SETTER) Analysis Performed At Patho logist Time [...] / Volume Laterality 03/19/2009 6:20 AM 9 RUSTIC TERRAZZO SETTER Brian Turner MD LAB - BLOOD ORDERABLES Performing Organization Address City/State/ZIP Code Phon e Number MISYS C difficile culture (03/19/2009 6:10 AM RUSTIC TERRAZZO SETTER) [facility] Method Time Signature Specimen Feces MISYS Descrip C Difficile No Clostridium MISYS Culture difficile isolated Specimen Anatomical Collection Method Collection Time Receive d Time (Source) Location / / Volume Laterality 03/19/2009 6:10 AM 9 6:14 RUSTIC TERRAZZO SETTER AM RUSTIC TERRAZZO SETTER Kaiden Carpenter MD LAB - MICRO GENERAL ORDERABL ES Performing Organization Address City/State/ZIP Code Phon e Number MISYS C difficile toxin A and B (03/19/2009 6:10 AM RUSTIC TERRAZZO SETTER) [facility] [place] Method Time Signature Specimen Feces MISYS Description [...] / Volume Laterality 03/19/2009 6:10 AM 6:14 RUSTIC TERRAZZO SETTER AM RUSTIC TERRAZZO SETTER Kaiden Carpenter MD LAB - BLOOD ORDERABLES Performing Organization Address City/[facility] Phon e Number MISYS (ABNORMAL) Glucose by meter (03/19/2009 3:59 AM RUSTIC TERRAZZO SETTER) P athologist Signature Glucose 166 (H) 60 - 99 MISYS mg/dL Specimen Anatomical Collection Method Collection Time Receive d Time (Source) Location / / Volume Laterality 03/19/2009 3:59 AM 9 5:25 RUSTIC TERRAZZO SETTER PM RUSTIC TERRAZZO SETTER Kaiden REHMAN - BEJAZ POCT Performing Organization Address [facility] Phon e Number MISYS (ABNORMAL) Glucose by meter (03/19/2009 12:37 AM RUSTIC TERRAZZO SETTER) P athologist Signature Glucose 174 (H) 60 - 99 MISYS mg/dL Specimen Anatomical Collection Method Collection Time Receive d Time (Source) Location / / Volume Laterality 03/19/2009 12:37 03/19/2009 5:25 AM RUSTIC TERRAZZO SETTER PM RUSTIC TERRAZZO SETTER Kaiden MOONEY POCT Performing Organization Address [facility] Phon e Number MISYS documented in this encounter Visit Diagnoses Not on filedocumented in this encounter Additional Health Concerns Infection Onset Date Last Indicated Resolved Time MRSA-Contact IsolationComment: 0 04/26/2021 11:03 AM RUSTIC TERRAZZO SETTER Infection erroneous documented as of this encounter
--- OUTSIDE RECORDS SUMMARY | 2022-04-01 12:37 | XMS_ITS | Encounter Summary ---
:1960 Author Organization [facility] Address [address] [place] [address] Care Team Providers Name Role Phone Unavailable Primary Care Provider Unavailable Encounter Details Date Type Department Care Team Description 03/19/2009 Historic Notes INTERFACED REPORT Bill Palomares, PROJECT DIRECTOR [facility] [address] [facility] [place] [place] [address] Social History Tobacco Use [...] Time MRSA-Contact IsolationComment: 0 04/26/2021 11:03 AM TURNING SANDER OPERATOR Infection erroneous documented as of this encounter
--- OUTSIDE RECORDS SUMMARY | 2022-04-01 12:37 | XMS_ITS | Encounter Summary ---
:1960 Author Organization [facility] Address [address] [place] [address] Care Team Providers Name Role Phone Unavailable Primary Care Provider Unavailable Encounter Details Date Type Department Care Team Description 03/18/2009 Historic Notes INTERFACED REPORT Xu Wyatt MD [address] [facility] [address] [place] [address] (Wo rk) Social History Tobacco [...] coarse BS Abd: soft Ext: no edema Wrapper Rewinder 1.6, Na 145, WBC 8.8, Hgb 9.9, K: 3.1, PO4 1.6, Mg 1.5 Pt passed CPAP trial A/P: Respiratory failure: exubated, agressive pulm toilet, mobilize. DC narcs and ativan Recovering ATN with Na 145: change to 1/2 NS Severe hypokalemia, hypomagnesemia, hypophosphatemia: replace D/C NG, swallow study tomorrow 008-786-2011 [Signature] Author: BRIAN WYATT) [Signed 08:45] documented in this encounter Plan of Treatment Not on filedocumented as of this encounter Visit Diagnoses Not on filedocumented in this encounter Additional Health Concerns Infection Onset Date Last Indicated Resolved Time MRSA-Contact IsolationComment: 0 04/26/2021 11:03 AM CEMENT CAR DUMPER Infection erroneous documented as of this encounter
--- OUTSIDE RECORDS SUMMARY | 2022-04-01 12:37 | XMS_ITS | Encounter Summary ---
:1960 Author Organization [facility] Address [address] [place] [address] Care Team Providers Name Role Phone Unavailable Primary Care Provider Unavailable Encounter Details Date Type Department Care Team Description 03/18/2009 Historic Notes INTERFACED REPORT Deep Alston MD [address] [place], [place] [address] (Wo rk) Social History [...] Time MRSA-Contact IsolationComment: 0 04/26/2021 11:03 AM DOUBLER OPERATOR Infection erroneous documented as of this encounter
--- OUTSIDE RECORDS SUMMARY | 2022-04-01 12:37 | XMS_ITS | Encounter Summary ---
:1960 Author Organization [facility] Address [address] [place] [address] Care Team Providers Name Role Phone Unavailable Primary Care Provider Unavailable Encounter Details Date Type Department Care Team Description 03/18/2009 Historic Results [facility] Church MD Hospitalists [address] [place], [place] [address] (Wo rk) Social History [...] 03/18/2009 8:23 PM Resul ts for this STAFF ANESTHETIST procedure are i n the results section. GLUCOSE BY METER Routine 03/18/2009 4:03 PM Resul ts for this STAFF ANESTHETIST procedure are i n the results section. POTASSIUM Routine 03/18/2009 2:45 PM Results f or this STAFF ANESTHETIST procedure are i n the results section. PHOSPHORUS Routine 03/18/2009 2:45 PM Results f or this STAFF ANESTHETIST procedure are i n the results section. MAGNESIUM Routine 03/18/2009 2:45 PM Results f or this STAFF ANESTHETIST procedure are i n the results section. GLUCOSE BY METER Routine 03/18/2009 12:00 Results for this PM STAFF ANESTHETIST procedure are i n the results section. CBC WITH PLATELETS & Routine 03/18/2009 7:45 AM R esults for this DIFFERENTIAL STAFF ANESTHETIST procedure are i n the results section. PHOSPHORUS Routine 03/18/2009 7:45 AM Results f or this STAFF ANESTHETIST procedure are i n the results section. MAGNESIUM Routine 03/18/2009 7:45 AM Results f or this STAFF ANESTHETIST procedure are i n the results section. BASIC METABOLIC PANEL Routine 03/18/2009 7:45 AM Results for this STAFF ANESTHETIST procedure are i n the results section. GLUCOSE BY METER Routine 03/18/2009 7:36 AM Resul ts for this STAFF ANESTHETIST procedure are i n the results section. GLUCOSE BY METER Routine 03/18/2009 3:47 AM Resul ts for this STAFF ANESTHETIST procedure are i n the results section. GLUCOSE BY METER Routine 03/18/2009 12:08 Results for this AM STAFF ANESTHETIST procedure are i n the results section. documented in this encounter Results (ABNORMAL) Glucose by meter (03/18/2009 8:23 PM STAFF ANESTHETIST) P athologist Signature Glucose 139 (H) 60 - 99 MISYS mg/dL Specimen Anatomical Collection Method Collection Time Receive d Time (Source) Location / / Volume Laterality 03/18/2009 8:23 PM 9 8:35 STAFF ANESTHETIST PM STAFF ANESTHETIST Kaiden REHMAN - JESICA POCT Performing Organization Address City/[facility]/ZIP Code Phon e Number MISYS (ABNORMAL) Glucose by meter (03/18/2009 4:03 PM STAFF ANESTHETIST) P athologist Signature Glucose 213 (H) 60 - 99 MISYS mg/dL Specimen Anatomical Collection Method Collection Time Receive d Time (Source) Location / / Volume Laterality 03/18/2009 4:03 PM 9 4:15 STAFF ANESTHETIST PM STAFF ANESTHETIST Kaiden ERHMAN - JESICA POCT Performing Organization Address City/[facility] Code Phon e Number MISYS (ABNORMAL) Phosphorus (03/18/2009 2:45 PM STAFF ANESTHETIST) P athologist Signature Phosphorus 2.3 (L) 2.5 - 4.5 MISYS mg/dL Specimen Anatomical Collection Method Collection Time Receive d Time (Source) Location / / Volume Laterality 03/18/2009 2:45 PM 9 2:51 STAFF ANESTHETIST PM STAFF ANESTHETIST Brian Turner MD LAB - BLOOD ORDERABLES Performing Organization Address City/[facility]/ZIP [facility] Phon e Number MISYS Magnesium (03/18/2009 2:45 PM STAFF ANESTHETIST) P athologist Signature Magnesium 1.9 1.6 - 2.3 MISYS mg/dL Specimen Anatomical Collection Method Collection Time Receive d Time (Source) Location / / Volume Laterality 03/18/2009 2:45 PM 9 2:52 STAFF ANESTHETIST PM STAFF ANESTHETIST Brian Turner MD LAB - BLOOD ORDERABLES Performing Organization Address [facility] Phon e Number MISYS Potassium (03/18/2009 2:45 PM STAFF ANESTHETIST) athologist Signature Potassium 4.4 3.4 - 5.3 MISYS mmol/L Comment: Results confirmed by repeat patricia t Specimen Anatomical Collection Method Collection Time Receive d Time (Source) Location / / Volume Laterality 03/18/2009 2:45 PM 9 2:52 STAFF ANESTHETIST PM STAFF ANESTHETIST Brian Turner MD LAB - BLOOD ORDERABLES Performing Organization Address [facility] Phon e Number MISYS (ABNORMAL) Glucose by meter (03/18/2009 12:00 PM STAFF ANESTHETIST) athologist Signature Glucose 172 (H) 60 - 99 MISYS mg/dL Specimen Anatomical Collection Method Collection Time Receive d Time (Source) Location / / Volume Laterality 03/18/2009 12:00 03/18/2009 PM STAFF ANESTHETIST 12:35 PM STAFF ANESTHETIST Kaiden Carpenter MD LAB - BEAKER POCT Performing Organization Address [facility] Phon e Number MISYS (ABNORMAL) Magnesium (03/18/2009 7:45 AM STAFF ANESTHETIST) athologist Signature Magnesium 1.5 (L) 1.6 - 2.3 MISYS mg/dL Specimen (Source) Anatomical Collection Method Collection Time Re ceived Time Location / / Volume Laterality 03/18/2009 7:45 AM 9 STAFF ANESTHETIST Brian Turner MD LAB - BLOOD ORDERABLES Performing Organization Address [facility] Phon e Number MISYS (ABNORMAL) Basic metabolic panel (03/18/2009 7:45 AM STAFF ANESTHETIST) Analysis Performed At Patho logist Time Signature [...] / Volume Laterality 03/18/2009 7:45 AM 9 STAFF ANESTHETIST Brian Turner MD LAB - BLOOD ORDERABLES Performing Organization Address City/State/ZIP Code Phon e Number MISYS (ABNORMAL) Phosphorus (03/18/2009 7:45 AM STAFF ANESTHETIST) P athologist Signature Phosphorus 1.6 (L) 2.5 - 4.5 MISYS mg/dL Specimen (Source) Anatomical Collection Method Collection Time Re ceived Time Location / / Volume Laterality 03/18/2009 7:45 AM 9 STAFF ANESTHETIST Brian Turner MD LAB - BLOOD ORDERABLES Performing Organization Address City/State/ZIP Code Phon e Number MISYS (ABNORMAL) CBC with platelets differential (03/18/2009 7:45 AM STAFF ANESTHETIST) Component Value Ref Test Analysis Performed At [...] / Volume Laterality 03/18/2009 7:45 AM 9 STAFF ANESTHETIST Liam Traylor MD LAB - BLOOD ORDERABLES Performing Organization Address City/[facility]/ZIP Code Phon e Number MISYS (ABNORMAL) Glucose by meter (03/18/2009 7:36 AM STAFF ANESTHETIST) athologist Signature Glucose 221 (H) 60 - 99 MISYS mg/dL Specimen Anatomical Collection Method Collection Time Receive d Time (Source) Location / / Volume Laterality 03/18/2009 7:36 AM 9 8:21 STAFF ANESTHETIST AM STAFF ANESTHETIST Kaiden Carpenter MD LAB - BEAKER POCT Performing Organization Address City/State/ZIP Code Phon e Number MISYS (ABNORMAL) Glucose by meter (03/18/2009 3:47 AM STAFF ANESTHETIST) P athologist Signature Glucose 206 (H) 60 - 99 MISYS mg/dL Specimen Anatomical Collection Method Collection Time Receive d Time (Source) Location / / Volume Laterality 03/18/2009 3:47 AM 9 4:05 STAFF ANESTHETIST AM STAFF ANESTHETIST Kaiden Carpenter MD LAB - JESICA POCT Performing Organization Address City/State/ZIP Code Phon e Number MISYS (ABNORMAL) Glucose by meter (03/18/2009 12:08 AM STAFF ANESTHETIST) P athologist Signature Glucose 188 (H) 60 - 99 MISYS mg/dL Specimen Anatomical Collection Method Collection Time Receive d Time (Source) Location / / Volume Laterality 03/18/2009 12:08 03/18/2009 3:15 AM STAFF ANESTHETIST AM STAFF ANESTHETIST Kaiden MOONEY POCT Performing Organization Address City/State/ZIP [facility] Phon e Number MISYS documented in this encounter Visit Diagnoses Not on filedocumented in this encounter Additional Health Concerns Infection Onset Date Last Indicated Resolved Time MRSA-Contact IsolationComment: 0 04/26/2021 11:03 AM STAFF ANESTHETIST Infection erroneous documented as of this encounter
--- OUTSIDE RECORDS SUMMARY | 2022-04-01 12:37 | XMS_ITS | Encounter Summary ---
:1960 Author Organization [facility] Address [address] [place] [address] Care Team Providers Name Role Phone Unavailable Primary Care Provider Unavailable Encounter Details Date Type Department Care Team Description 03/16/2009 Historic Notes INTERFACED REPORT Xu Wyatt MD [address] [facility] [address] [place] [address] (Wo rk) Social History Tobacco [...] to pain, intubated A/P: Renal failure, nonoliguric, Spine Specialist improving. Doubt that we will need dialysis today. Decrease IV rate Hypomagnesemia: replace Resp failure: not ready to extubate yet due to MS EtOH withdrawal. 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
--- OUTSIDE RECORDS SUMMARY | 2022-04-01 12:37 | XMS_ITS | Encounter Summary ---
:1960 Author Organization [facility] Address [address] [place] [address] Care Team Providers Name Role Phone Unavailable Primary Care Provider Unavailable Encounter Details Date Type Department Care Team Description 03/17/2009 Historic Notes INTERFACED REPORT Deep Alston MD [address] [place], [place] [address] (Wo rk) Social History [...] above. Stable. On vent. Vent mgmt per radiologic technologist mammogram. Check daily cxr while on vent. More [...] Time MRSA-Contact IsolationComment: 0 04/26/2021 11:03 AM DEVULCANIZER TENDER Infection erroneous documented as of this encounter
--- OUTSIDE RECORDS SUMMARY | 2022-04-01 12:37 | XMS_ITS | Encounter Summary ---
:1960 Author Organization [facility] Address [address] [place] [address] Care Team Providers Name Role Phone Unavailable Primary Care Provider Unavailable Encounter Details Date Type Department Care Team Description 03/16/2009 Results Only [facility] Liam Traylor MD Hospital Results [address] [place], [place] [address] (Wo rk) Social History [...] Procedure Name Priority Date/Time Associated Diagnosis Comme [facility] CHEST ONE VIEW Routine 03/16/2009 4:50 AM Resu lts for this [facility] procedure are i n the results section. documented in this encounter Results CHEST X-RAY 1 VW (03/16/2009 4:50 AM [facility]) Anatomical Region Laterality Modality Other Specimen (Source) Anatomical Collection Method Collection Time Re ceived Time Location / / Volume Laterality 03/16/2009 4:50 AM [facility] Impressions 03/16/2009 9:53 AM [facility] CHEST 1VIEW PORTABLE Mar 16, 2009 4:50:0 [...] Time MRSA-Contact IsolationComment: 0 04/26/2021 11:03 AM [facility]ICS Infection erroneous documented as of this encounter
--- OUTSIDE RECORDS SUMMARY | 2022-04-01 12:37 | XMS_ITS | Encounter Summary ---
:1960 Author Organization [facility] Address [address] [place] [address] Care Team Providers Name Role Phone Unavailable [...] as of this encounter Progress Notes Interface, Sampler Pickup - 07/10/2010 3:15 PM CDT SWS-Attempted again to assess pt and pt continues to be sleeping. Will try again. [Signature] Author: Janeen Bai (ROCK CRUSHER) [Signed 14:05] documented in this encounter Plan of Treatment Not on filedocumented as of this encounter Visit Diagnoses Not on filedocumented in this encounter Additional Health Concerns Infection Onset Date Last Indicated Resolved Time MRSA-Contact IsolationComment: 0 04/26/2021 11:03 AM ART SALES CONSULTANT Infection erroneous documented as of this encounter
--- OUTSIDE RECORDS SUMMARY | 2022-04-01 12:37 | XMS_ITS | Encounter Summary ---
:1960 Author Organization [facility] Address [address] [place] [address] Care Team Providers Name Role Phone Unavailable Primary Care Provider Unavailable Encounter Details Date Type Department Care Team Description 03/16/2009 Historic Notes INTERFACED REPORT Deep Alston MD [address] [place], [place] [address] (Wo rk) Social History [...] Time MRSA-Contact IsolationComment: 0 04/26/2021 11:03 AM HARDENING MACHINE OPERATOR HELPER Infection erroneous documented as of this encounter
--- OUTSIDE RECORDS SUMMARY | 2022-04-01 12:37 | XMS_ITS | Encounter Summary ---
:1960 Author Organization [facility] Address [address] [place] [address] Care Team Providers Name Role Phone Unavailable Primary Care Provider Unavailable Encounter Details Date Type Department Care Team Description 03/20/2009 Results Only [facility] Liam Traylor MD Hospital Results [address] [place], [place] [address] (Wo rk) Social History [...] 10:43 AM Resul ts for this EVALUATION MASTIC SPRAYER procedure are i n the results section. documented in this encounter Results SPEECH EVALUATION, COMPLEX (03/20/2009 10:43 AM MASTIC SPRAYER) Anatomical Region Laterality Modality Other Specimen (Source) Anatomical Collection Method Collection Time Re ceived Time Location / / Volume Laterality 03/20/2009 10:43 AM MASTIC SPRAYER Impressions 03/20/2009 11:20 AM MASTIC SPRAYER VIDEO SPEECH EVALUATION Mar 20, 2009 10: [...] Time MRSA-Contact IsolationComment: 0 04/26/2021 11:03 AM MASTIC SPRAYER Infection erroneous documented as of this encounter
--- OUTSIDE RECORDS SUMMARY | 2022-04-01 12:37 | XMS_ITS | Encounter Summary ---
:1960 Author Organization [facility] Address [address] [place] [address] Care Team Providers Name Role Phone Unavailable [...] as of this encounter Progress Notes Interface, Soliciting Freight Agent - 07/10/2010 3:20 PM CDT NUTRITION NOTE: Pts renal fx improving. Protein needs increased to 1.0-1.2g/kg. Able to change TF formula to Fibersource HN. New TF formula order: Fibersource HN @ 75mL/hr = 2160 kcal (25kcal/kg), 96g pro (1.1g/kg), 18 g fiber, and 1458mL fluid. This meets 100% of pts nutritional needs. [Signature] Author: NIRMALA LAND (RD, LD) [Signed 10:32] Interface, Soliciting Freight Agent - 07/10/2010 3:18 PM CDT SH--Routine visit. Introduced myself to patient, who was vented but awake. No family members were present. Provided reassurance, caring touch, and emotional care and support. Also, offered prayer, which he declined. Will follow. [Signature] Author: Luciana Rose (Bender Helper) [Signed 18:30] documented in this encounter Plan of Treatment Not on filedocumented as of this encounter Visit Diagnoses Not on filedocumented in this encounter Additional Health Concerns Infection Onset Date Last Indicated Resolved Time MRSA-Contact IsolationComment: 0 04/26/2021 11:03 AM ELL TEACHER Infection erroneous documented as of this encounter
--- OUTSIDE RECORDS SUMMARY | 2022-04-01 12:37 | XMS_ITS | Encounter Summary ---
:1960 Author Organization [facility] Address [address] [place] [address] Care Team Providers Name Role Phone Unavailable Primary Care Provider Unavailable Encounter Details Date Type Department Care Team Description 03/20/2009 Historic Notes INTERFACED REPORT Deep Alston MD [address] [place], [place] [address] (Wo rk) Social History [...] Time MRSA-Contact IsolationComment: 0 04/26/2021 11:03 AM MULTIMEDIA DEVELOPER Infection erroneous documented as of this encounter
--- OUTSIDE RECORDS SUMMARY | 2022-04-01 12:37 | XMS_ITS | Encounter Summary ---
:1960 Author Organization [facility] Address [address] [place] [address] Care Team Providers Name Role Phone Unavailable Primary Care Provider Unavailable Encounter Details Date Type Department Care Team Description 03/19/2009 Historic Notes INTERFACED REPORT Xu Wyatt MD [facility] [address] [place], [place] [phone] (Wo rk) Social History Tobacco Use Types [...] Chest: CTA Abd: soft Ext: no edema Radiologic Technology Program Director 1.5 I/Os balanced A/P: Renal failure; recovering [...] Time MRSA-Contact IsolationComment: 0 04/26/2021 11:03 AM BODY CARE MANAGER Infection erroneous documented as of this encounter
--- OUTSIDE RECORDS SUMMARY | 2022-04-01 12:37 | XMS_ITS | Encounter Summary ---
:1960 Author Organization [facility] Address [address] [place] [address] Care Team Providers Name Role Phone Unavailable [...] as of this encounter Progress Notes Interface, Pharmaceutical Development Technician - 07/10/2010 3:05 PM CDT Patient Status - Physical status Stable (s/s of potential complications absent or manageable) - Psychosocial status Stable Discharge Planning - Discharge From: [facility] - Patient Care Unit: MS3 - PCU - Discharge To: Home - Phone number after [phone] discharge: - Method of discharge: Wheel Chair [...] Primary Md call: - Phone number of [facility] [phone] patient should call: - Is patient going home No with IV Catheter?: Follow Up Care - Physician/clinician Primary MD name: - - When to see 1-2 weeks physician/clinician: Lucero Mccauley (RN)[Signed 12:31] Authored: Patient Status, Discharge Planning, Discharge Information, Medications and Prescriptions, Support Services, Special Care Needs and Instructions, Follow Up Care Interface, Pharmaceutical Development Technician - 07/10/2010 3:05 PM CDT Discharge Summary - Reason for Discharge Discharge from facility - Progress toward Goals partially met, Did not meet goal of amb achieving short term endurance/assist/stairs goals/terminal block assembler goals - Barriers to achieving Limited tolerance [...] MRSA-Contact IsolationComment: 0 04/26/2021 11:03 AM HAND SINGER Infection erroneous documented as of this encounter
--- OUTSIDE RECORDS SUMMARY | 2022-04-01 12:37 | XMS_ITS | Encounter Summary ---
:1960 Author Organization [place] Address [address] [place] [id number] Care Team Providers Name Role Phone Unavailable Primary Care Provider Unavailable Encounter Details Date Type Department Care Team Description 03/17/2009 Historic Results [facility] MD Hospitalists [address] [place], [place] [address] (Wo rk) Social History [...] 03/17/2009 8:24 PM Resul ts for this ORCHESTRATOR procedure are i n the results section. GLUCOSE BY METER Routine 03/17/2009 4:02 PM Resul ts for this ORCHESTRATOR procedure are i n the results section. GLUCOSE BY METER Routine 03/17/2009 12:17 PM Resu lts for this ORCHESTRATOR procedure are i n the results section. GLUCOSE BY METER Routine 03/17/2009 8:10 AM Resul ts for this ORCHESTRATOR procedure are i n the results section. C DIFFICILE TOXIN A Routine 03/17/2009 5:50 AM Re sults for this AND B (QUEST) ORCHESTRATOR procedure are in the results section. C DIFFICILE CULTURE Routine 03/17/2009 5:50 AM Re sults for this ORCHESTRATOR procedure are i n the results section. PHOSPHORUS Routine 03/17/2009 5:25 AM Results f or this ORCHESTRATOR procedure are i n the results section. MAGNESIUM Routine 03/17/2009 5:25 AM Results f or this ORCHESTRATOR procedure are i n the results section. HEPATIC FUNCTION Routine 03/17/2009 5:25 AM Resul ts for this PANEL ORCHESTRATOR procedure are i n the results section. CK TOTAL Routine 03/17/2009 5:25 AM Results f or this ORCHESTRATOR procedure are i n the results section. BASIC METABOLIC Routine 03/17/2009 5:25 AM Result s for this PANEL ORCHESTRATOR procedure are i n the results section. CBC WITH PLATELETS Routine 03/17/2009 5:25 AM Res ults for this ORCHESTRATOR procedure are i n the results section. GLUCOSE BY METER Routine 03/17/2009 4:05 AM Resul ts for this ORCHESTRATOR procedure are i n the results section. documented in this encounter Results (ABNORMAL) Glucose by meter (03/17/2009 8:24 PM ORCHESTRATOR) P athologist Signature Glucose 206 (H) 60 - 99 MISYS mg/dL Specimen Anatomical Collection Method Collection Time Receive d Time (Source) Location / / Volume Laterality 03/17/2009 8:24 PM 9 8:40 ORCHESTRATOR PM ORCHESTRATOR Kaiden REHMAN - JESICA POCT Performing Organization Address [facility] Phon e Number MISYS (ABNORMAL) Glucose by meter (03/17/2009 4:02 PM ORCHESTRATOR) athologist Signature Glucose 175 (H) 60 - 99 MISYS mg/dL Specimen Anatomical Collection Method Collection Time Receive d Time (Source) Location / / Volume Laterality 03/17/2009 4:02 PM 9 4:15 ORCHESTRATOR PM ORCHESTRATOR Kaiden REHMAN - JESICA POCT Performing Organization Address [facility] Phon e Number MISYS (ABNORMAL) Glucose by meter (03/17/2009 12:17 PM ORCHESTRATOR) athologist Signature Glucose 163 (H) 60 - 99 MISYS mg/dL Comment: RN/Dr notified Specimen Anatomical Collection Method Collection Time Receive d Time (Source) Location / / Volume Laterality 03/17/2009 12:17 03/17/2009 1:15 PM ORCHESTRATOR PM ORCHESTRATOR Kaiden MOONEY POCT Performing Organization Address [facility] Phon e Number MISYS (ABNORMAL) Glucose by meter (03/17/2009 8:10 AM ORCHESTRATOR) P athologist Signature Glucose 185 (H) 60 - 99 MISYS mg/dL Specimen Anatomical Collection Method Collection Time Receive d Time (Source) Location / / Volume Laterality 03/17/2009 8:10 AM 9 8:16 ORCHESTRATOR AM ORCHESTRATOR Kaiden Carpenter MD LAB - BEAKER POCT Performing Organization Address [facility] Phon e Number MISYS C difficile culture (03/17/2009 5:50 AM ORCHESTRATOR) Patholo gist Method Time Signature Specimen Feces MISYS Descrip C Difficile Light growth MISYS Culture Clostridium difficile Specimen Anatomical Collection Method Collection Time Receive d Time (Source) Location / / Volume Laterality 03/17/2009 5:50 AM 9 5:59 ORCHESTRATOR AM ORCHESTRATOR Kaiden Carpenter MD LAB - MICRO GENERAL ORDERABL ES Performing Organization Address [facility] Phon e Number MISYS C difficile toxin A and B (03/17/2009 5:50 AM ORCHESTRATOR) Patholo gist Method Time Signature Specimen Feces [...] Volume Laterality 03/17/2009 5:50 AM 9 6:10 ORCHESTRATOR AM ORCHESTRATOR Kaiden Carpenter MD LAB - BLOOD ORDERABLES Performing Organization Address [facility] Phon e Number MISYS (ABNORMAL) CBC with platelets (03/17/2009 5:25 AM ORCHESTRATOR) Analysis Performed At Patho logist Time Signature [...] / Volume Laterality 03/17/2009 5:25 AM 9 ORCHESTRATOR Brian Turner MD LAB - BLOOD ORDERABLES Performing Organization Address City/State/ZIP Code Phon e Number MISYS (ABNORMAL) Basic metabolic panel (03/17/2009 5:25 AM ORCHESTRATOR) Analysis Performed At Patho logist Time Signature [...] / Volume Laterality 03/17/2009 5:25 AM 9 ORCHESTRATOR Brian Turner MD LAB - BLOOD ORDERABLES Performing Organization Address City/State/ZIP Code Phon e Number MISYS Magnesium (03/17/2009 5:25 AM ORCHESTRATOR) P athologist Signature Magnesium 1.6 1.6 - 2.3 MISYS mg/dL Specimen (Source) Anatomical Collection Method Collection Time Re ceived Time Location / / Volume Laterality 03/17/2009 5:25 AM 9 ORCHESTRATOR Brian Turner MD LAB - BLOOD ORDERABLES Performing Organization Address [facility] Phon e Number MISYS Phosphorus (03/17/2009 5:25 AM ORCHESTRATOR) athologist Signature Phosphorus 2.7 2.5 - 4.5 MISYS mg/dL Specimen (Source) Anatomical Collection Method Collection Time Re ceived Time Location / / Volume Laterality 03/17/2009 5:25 AM 9 ORCHESTRATOR Brian Turner MD LAB - BLOOD ORDERABLES Performing Organization Address [facility] Phon e Number MISYS (ABNORMAL) CK total (03/17/2009 5:25 AM ORCHESTRATOR) athologist Signature CK Total 475 (H) 45 - 300 MISYS U/L Specimen (Source) Anatomical Collection Method Collection Time Re ceived Time Location / / Volume Laterality 03/17/2009 5:25 AM 9 ORCHESTRATOR Brian Turner MD LAB - BLOOD ORDERABLES Performing Organization Address [facility] Phon e Number MISYS (ABNORMAL) Hepatic panel (03/17/2009 5:25 AM ORCHESTRATOR) Analysis Performed At Patho logist Time Signature [...] / Volume Laterality 03/17/2009 5:25 AM 9 ORCHESTRATOR Richard Shirley MD LAB - BLOOD ORDERABLES Performing Organization Address City/State/ZIP Code Phon e Number MISYS (ABNORMAL) Glucose by meter (03/17/2009 4:05 AM ORCHESTRATOR) P athologist Signature Glucose 203 (H) 60 - 99 MISYS mg/dL Specimen Anatomical Collection Method Collection Time Receive d Time (Source) Location / / Volume Laterality 03/17/2009 4:05 AM 9 8:16 ORCHESTRATOR AM ORCHESTRATOR Kaiden Carpenter MD LAB - BEAKER POCT Performing Organization Address City/State/[facility] Code Phon e Number MISYS documented in this encounter Visit Diagnoses Not on filedocumented in this encounter Additional Health Concerns Infection Onset Date Last Indicated Resolved Time MRSA-Contact IsolationComment: 0 04/26/2021 11:03 AM ORCHESTRATOR Infection erroneous documented as of this encounter
--- OUTSIDE RECORDS SUMMARY | 2022-04-01 12:37 | XMS_ITS | Encounter Summary ---
:1960 Author Organization [place] Address [address] [place] [address] Care Team Providers Name Role Phone Unavailable Primary Care Provider Unavailable Encounter Details Date Type Department Care Team Description 03/17/2009 Historic Notes INTERFACED REPORT Xu Wyatt MD [address] [facility] [address] [place], [place] [phone] (Wo rk) Social History Tobacco Use Types [...] 475 K: 2.9, Na 141, Bicarb 37, Therapist'S Assistant 2.2, WBC 6.3 A/P: Acute renal failure: resolving. Now with alkalosis. Folloow Na closely. May need to switch to 1/2 NS if Na increases. Respitratory failure: Pt much more awake today. Hold dexmetatomidine, Pt on cpap trial now: will evaluate for extubation Malnutrition: TFs Hypokalemia, Hypomagnesemia: replace GB [phone] [Signature] Author: BRIAN WYATT) [Signed 08:48] documented in this encounter Plan of Treatment Not on filedocumented as of this encounter Visit Diagnoses Not on filedocumented in this encounter Additional Health Concerns Infection Onset Date Last Indicated Resolved Time MRSA-Contact IsolationComment: 0 04/26/2021 11:03 AM SCRAP IRON CUTTER Infection erroneous documented as of this encounter
--- OUTSIDE RECORDS SUMMARY | 2022-04-01 12:37 | XMS_ITS | Encounter Summary ---
:1960 Author Organization [place] Address [facility] [place] [address] Care Team Providers Name Role Phone Unavailable Primary Care Provider Unavailable Encounter Details Date Type Department Care Team Description 03/20/2009 Historic Notes INTERFACED REPORT Eloina Alford, PT MS BELLA C [facility] [address] [facility] [address] [place], [place] [address] (Wo rk) Social History Tobacco [...] Bed Mobility: Rolling/Turning - Level of independent [place]: Bed Mobility: Scooting/Bridging - Level of independent [place]: Bed Mobility: Sit to Supine - Level of independent [place]: Bed Mobility: Supine to Sit - Level of independent [place]: Transfer: Sit to Stand - Level of stand-by assist [place]: - Weight-Bearing full weight-bearing Restrictions: - Assistive Device: pt held onto IV pole Transfer: Stand to Sit - Level of stand-by assist [place]: - Physical verbal cues; for safe hand placement Assist/Nonphysical Assist: - Weight-Bearing full weight-bearing Restrictions: - Assistive Device: no AD - pt used IV pole Sit/Stand Transfer Safety Analysis - Impairments impaired balance Contributing to Impaired Transfers: Gait Skills - Level of minimum assist (75% patients effort) [place]: - Assistive Device: no AD - held [...] LE Dynamic: activities seated at EOB - [id number] Balance: stand-by assist - Standing Balance: minimum [...] Time MRSA-Contact IsolationComment: 0 04/26/2021 11:03 AM DISC PAD GRINDING MACHINE FEEDER Infection erroneous documented as of this encounter
--- OUTSIDE RECORDS SUMMARY | 2022-04-01 12:37 | XMS_ITS | Encounter Summary ---
:1960 Author Organization [place] Address [address] [place] [address] Care Team Providers Name Role Phone Unavailable Primary Care Provider Unavailable Encounter Details Date Type Department Care Team Description 03/18/2009 Results Only [facility] Liam Traylor MD Hospital Results [address] [place], [place] [address] (Wo rk) Social History [...] Procedure Name Priority Date/Time Associated Diagnosis Comme [facility] CHEST ONE VIEW Routine 03/18/2009 5:25 AM Resu lts for this VARIOUS EXCEPTIONALITIES TEACHER procedure are i n the results section. documented in this encounter Results CHEST X-RAY 1 VW (03/18/2009 5:25 AM VARIOUS EXCEPTIONALITIES TEACHER) Anatomical Region Laterality Modality Other Specimen (Source) Anatomical Collection Method Collection Time Re ceived Time Location / / Volume Laterality 03/18/2009 5:25 AM VARIOUS EXCEPTIONALITIES TEACHER Impressions 03/18/2009 2:37 PM VARIOUS EXCEPTIONALITIES TEACHER PORTAL AP SUPINE CHEST March 18, 2009 [...] Time MRSA-Contact IsolationComment: 0 04/26/2021 11:03 AM VARIOUS EXCEPTIONALITIES TEACHER Infection erroneous documented as of this encounter
--- OUTSIDE RECORDS SUMMARY | 2022-04-01 12:37 | XMS_ITS | Encounter Summary ---
:1960 Author Organization [place] Address [address] [place] [address] Care Team Providers Name Role Phone Unavailable Primary Care Provider Unavailable Encounter Details Date Type Department Care Team Description 03/16/2009 Historic Results [facility] Liam Traylor [facility]ists [address] [place], [place] [address] (Wo rk) Social History [...] Routine 03/16/2009 11:58 Results for this PM WATERWORKS SUPERVISOR procedure are i n the results section. GLUCOSE BY METER Routine 03/16/2009 8:09 PM Resul ts for this WATERWORKS SUPERVISOR procedure are i n the results section. ROUTINE UA WITH Routine 03/16/2009 5:10 PM Result s for this MICROSCOPIC WATERWORKS SUPERVISOR procedure are i n the results section. BLOOD CULTURE STAT 03/16/2009 5:10 PM Results for this WATERWORKS SUPERVISOR procedure are i n the results section. BLOOD CULTURE STAT 03/16/2009 5:10 PM Results for this WATERWORKS SUPERVISOR procedure are i n the results section. URINE CULTURE Routine 03/16/2009 5:10 PM Results for this WATERWORKS SUPERVISOR procedure are i n the results section. GLUCOSE BY METER Routine 03/16/2009 4:17 PM Resul ts for this WATERWORKS SUPERVISOR procedure are i n the results section. GLUCOSE BY METER Routine 03/16/2009 12:00 Results for this PM WATERWORKS SUPERVISOR procedure are i n the results section. GLUCOSE BY METER Routine 03/16/2009 7:56 AM Resul ts for this WATERWORKS SUPERVISOR procedure are i n the results section. CBC WITH PLATELETS & Routine 03/16/2009 6:15 AM R esults for this DIFFERENTIAL WATERWORKS SUPERVISOR procedure are i n the results section. PROTEIN TOTAL Routine 03/16/2009 6:15 AM Results for this WATERWORKS SUPERVISOR procedure are i n the results section. PREALBUMIN Routine 03/16/2009 6:15 AM Results f or this WATERWORKS SUPERVISOR procedure are i n the results section. PHOSPHORUS Routine 03/16/2009 6:15 AM Results f or this WATERWORKS SUPERVISOR procedure are i n the results section. MAGNESIUM Routine 03/16/2009 6:15 AM Results f or this WATERWORKS SUPERVISOR procedure are i n the results section. BILIRUBIN TOTAL Routine 03/16/2009 6:15 AM Result s for this WATERWORKS SUPERVISOR procedure are i n the results section. AST Routine 03/16/2009 6:15 AM Results f or this WATERWORKS SUPERVISOR procedure are i n the results section. ALT Routine 03/16/2009 6:15 AM Results f or this WATERWORKS SUPERVISOR procedure are i n the results section. ALKALINE PHOSPHATASE Routine 03/16/2009 6:15 AM R esults for this WATERWORKS SUPERVISOR procedure are i n the results section. ALBUMIN LEVEL Routine 03/16/2009 6:15 AM Results for this WATERWORKS SUPERVISOR procedure are i n the results section. BASIC METABOLIC PANEL Routine 03/16/2009 6:15 AM Results for this WATERWORKS SUPERVISOR procedure are i n the results section. GLUCOSE BY METER Routine 03/16/2009 4:18 AM Resul ts for this WATERWORKS SUPERVISOR procedure are i n the results section. GLUCOSE BY METER Routine 03/16/2009 12:05 Results for this AM WATERWORKS SUPERVISOR procedure are i n the results section. documented in this encounter Results (ABNORMAL) Glucose by meter (03/16/2009 11:58 PM WATERWORKS SUPERVISOR) P athologist Signature Glucose 185 (H) 60 - 99 MISYS mg/dL Specimen Anatomical Collection Method Collection Time Receive d Time (Source) Location / / Volume Laterality 03/16/2009 11:58 03/17/2009 8:15 PM WATERWORKS SUPERVISOR AM WATERWORKS SUPERVISOR Kaiden Carpenter MD [facility] POCT Performing Organization Address City/State/ZIP Code Phon e Number MISYS (ABNORMAL) Glucose by meter (03/16/2009 8:09 PM WATERWORKS SUPERVISOR) P athologist Signature Glucose 160 (H) 60 - 99 MISYS mg/dL Specimen Anatomical Collection Method Collection Time Receive d Time (Source) Location / / Volume Laterality 03/16/2009 8:09 PM 9 WATERWORKS SUPERVISOR 11:21 PM WATERWORKS SUPERVISOR Kaiden Carpenter MD LAB - BEAKER POCT Performing Organization Address City/State/ZIP Code Phon e Number MISYS (ABNORMAL) Routine UA with microscopic (03/16/2009 5:10 PM WATERWORKS SUPERVISOR) Component Value Ref Test Analysis Performed At [facility] Range Method Time Signature Source Catheterized MISYS Urine Color Urine Straw MISYS Appearance Urine Clear MISYS Glucose Urine 150 (A) NEG MISYS mg/dL Bilirubin Urine Negative NEG MISYS Ketones Urine 5 (A) NEG MISYS mg/dL Specific Man[place] 1.008 1.003 - MISYS Urine 1.035 Blood [...] Volume Laterality 03/16/2009 5:10 PM 9 4:53 WATERWORKS SUPERVISOR PM WATERWORKS SUPERVISOR Liam Traylor MD LAB - URINE ORDERABLES Performing Organization Address City/[facility]/ZIP Code Phon e Number MISYS Urine culture (03/16/2009 5:10 PM WATERWORKS SUPERVISOR) Component Value Ref Test Analysis Performed At [facility] Range Method Time Signature Specimen Catheterized MISYS Description Urine Culture Micro 50 to 100,000 MISYS colonies/mL Coagulase negative Staphylococcus Comment: Sent final report to printer on 03.19.09 Micro Report Status FINAL 03/19/2009 MIS YS Specimen Anatomical Collection Method Collection Time Receive d Time (Source) Location / / Volume Laterality 03/16/2009 5:10 PM 9 4:53 WATERWORKS SUPERVISOR PM WATERWORKS SUPERVISOR Organism Antibiotic Method Susceptibility 50 to 100,000 [...] MICRO GENERAL ORDERABL ES Performing Organization Address City/[facility] Phon e Number MISYS Blood culture (03/16/2009 5:10 PM WATERWORKS SUPERVISOR) [facility] Anhelo Method Time Signature Specimen PICC MISYS Description Culture Micro No growth MISYS after 6 days Micro Report FINAL MISYS Status [id number] Specimen Anatomical Collection Method Collection Time Receive d Time (Source) Location / / Volume Laterality 03/16/2009 5:10 PM 9 4:54 WATERWORKS SUPERVISOR PM WATERWORKS SUPERVISOR Liam Traylor MD LAB - MICRO GENERAL ORDERABL ES Performing Organization Address City/[facility] Phon e Number MISYS Blood culture (03/16/2009 5:10 PM WATERWORKS SUPERVISOR) [facility] Anhelo Method Time Signature Specimen Right Arm MISYS Description Culture Micro No growth MISYS after 6 days Micro Report FINAL MISYS Status [id number] Specimen Anatomical Collection Method Collection Time Receive d Time (Source) Location / / Volume Laterality 03/16/2009 5:10 PM 9 4:54 WATERWORKS SUPERVISOR PM WATERWORKS SUPERVISOR Liam Traylor MD LAB - MICRO GENERAL ORDERABL ES Performing Organization Address City/[facility] Phon e Number MISYS (ABNORMAL) Glucose by meter (03/16/2009 4:17 PM WATERWORKS SUPERVISOR) athologist Signature Glucose 159 (H) 60 - 99 MISYS mg/dL Specimen Anatomical Collection Method Collection Time Receive d Time (Source) Location / / Volume Laterality 03/16/2009 4:17 PM 9 5:25 WATERWORKS SUPERVISOR PM WATERWORKS SUPERVISOR Kaiden REHMAN - JES[place] POCT Performing Organization Address [facility] Phon e Number MISYS (ABNORMAL) Glucose by meter (03/16/2009 12:00 PM WATERWORKS SUPERVISOR) athologist Signature Glucose 156 (H) 60 - 99 MISYS mg/dL Specimen Anatomical Collection Method Collection Time Receive d Time (Source) Location / / Volume Laterality 03/16/2009 12:00 03/16/2009 PM WATERWORKS SUPERVISOR 12:20 PM WATERWORKS SUPERVISOR Kaiden MOONEY POCT Performing Organization Address [facility] Phon e Number MISYS (ABNORMAL) Glucose by meter (03/16/2009 7:56 AM WATERWORKS SUPERVISOR) athologist Signature Glucose 157 (H) 60 - 99 MISYS mg/dL Specimen Anatomical Collection Method Collection Time Receive d Time (Source) Location / / Volume Laterality 03/16/2009 7:56 AM 9 9:20 WATERWORKS SUPERVISOR AM WATERWORKS SUPERVISOR Kaiden MOONEY POCT Performing Organization Address [facility] Phon e Number MISYS (ABNORMAL) Basic metabolic panel (03/16/2009 6:15 AM WATERWORKS SUPERVISOR) athologist Signature Sodium 136 133 - 144 [...] / Volume Laterality 03/16/2009 6:15 AM 9 WATERWORKS SUPERVISOR Liam Traylor MD LAB - BLOOD ORDERABLES Performing Organization Address City/State/ZIP Code Phon e Number MISYS (ABNORMAL) CBC with platelets differential (03/16/2009 6:15 AM WATERWORKS SUPERVISOR) [facility] gist Method Time Signature MCV 93 [...] / Volume Laterality 03/16/2009 6:15 AM 9 WATERWORKS SUPERVISOR Liam Traylor MD LAB - BLOOD ORDERABLES Performing Organization Address [facility] Phon e Number MISYS Magnesium (03/16/2009 6:15 AM WATERWORKS SUPERVISOR) athologist Signature Magnesium 1.8 1.6 - 2.3 MISYS mg/dL Comment: Specimen hemolyzed Specimen (Source) Anatomical Collection Method Collection Time Re ceived Time Location / / Volume Laterality 03/16/2009 6:15 AM 9 WATERWORKS SUPERVISOR Brian Turner MD LAB - BLOOD ORDERABLES Performing Organization Address [facility] Phon e Number MISYS Phosphorus (03/16/2009 6:15 AM WATERWORKS SUPERVISOR) athologist Signature Phosphorus 3.7 2.5 - 4.5 MISYS mg/dL Comment: Specimen hemolyzed Specimen (Source) Anatomical Collection Method Collection Time Re ceived Time Location / / Volume Laterality 03/16/2009 6:15 AM 9 WATERWORKS SUPERVISOR Brian Turner MD LAB - BLOOD ORDERABLES Performing Organization Address [facility] Phon e Number MISYS (ABNORMAL) Prealbumin (03/16/2009 6:15 AM WATERWORKS SUPERVISOR) athologist Signature Prealbumin 10 (L) 15 - 45 MISYS mg/dL Specimen Anatomical Collection Method Collection Time Receive d Time (Source) Location / / Volume Laterality 03/16/2009 6:15 AM 9 1:43 WATERWORKS SUPERVISOR PM WATERWORKS SUPERVISOR Liam Traylor MD LAB - BLOOD ORDERABLES Performing Organization Address [facility] Phon e Number MISYS (ABNORMAL) Albumin level (03/16/2009 6:15 AM WATERWORKS SUPERVISOR) P athologist Signature Albumin 2.9 (L) 3.9 - 5.1 MISYS g/dL Specimen Anatomical Collection Method Collection Time Receive d Time (Source) Location / / Volume Laterality 03/16/2009 6:15 AM 9 2:07 WATERWORKS SUPERVISOR PM WATERWORKS SUPERVISOR Liam Traylor MD LAB - BLOOD ORDERABLES Performing Organization Address City/State/ZIP Code Phon e Number MISYS Alkaline phosphatase (03/16/2009 6:15 AM WATERWORKS SUPERVISOR) P athologist Signature Alkaline 142 40 - 150 MISYS Phosphatase U/L Specimen Anatomical Collection Method Collection Time Receive d Time (Source) Location / / Volume Laterality 03/16/2009 6:15 AM 9 2:07 WATERWORKS SUPERVISOR PM WATERWORKS SUPERVISOR Liam Traylor MD LAB - BLOOD ORDERABLES Performing Organization Address City/State/ZIP Code Phon e Number MISYS ALT (03/16/2009 6:15 AM WATERWORKS SUPERVISOR) P athologist Signature ALT 42 0 - 70 U/L MISYS Specimen Anatomical Collection Method Collection Time Receive d Time (Source) Location / / Volume Laterality 03/16/2009 6:15 AM 9 2:07 WATERWORKS SUPERVISOR PM WATERWORKS SUPERVISOR Liam Traylor MD LAB - BLOOD ORDERABLES Performing Organization Address City/[facility]/ZIP Code Phon e Number MISYS (ABNORMAL) AST (03/16/2009 6:15 AM WATERWORKS SUPERVISOR) P athologist Signature AST 106 (H) 0 - 55 U/L MISYS Specimen Anatomical Collection Method Collection Time Receive d Time (Source) Location / / Volume Laterality 03/16/2009 6:15 AM 9 2:07 WATERWORKS SUPERVISOR PM WATERWORKS SUPERVISOR Liam Traylor MD LAB - BLOOD ORDERABLES Performing Organization Address City/[facility]/ZIP Code Phon e Number MISYS Bilirubin total (03/16/2009 6:15 AM WATERWORKS SUPERVISOR) P athologist Signature Bilirubin Total 1.3 0.2 - 1.3 MISYS mg/dL Specimen Anatomical Collection Method Collection Time Receive d Time (Source) Location / / Volume Laterality 03/16/2009 6:15 AM 9 2:07 WATERWORKS SUPERVISOR PM WATERWORKS SUPERVISOR Liam Traylor MD LAB - BLOOD ORDERABLES Performing Organization Address City/State/ZIP Code Phon e Number MISYS (ABNORMAL) Protein total (03/16/2009 6:15 AM WATERWORKS SUPERVISOR) athologist Signature Protein Total 6.5 (L) 6.8 - 8.8 MISYS g/dL Specimen Anatomical Collection Method Collection Time Receive d Time (Source) Location / / Volume Laterality 03/16/2009 6:15 AM 9 2:07 WATERWORKS SUPERVISOR PM WATERWORKS SUPERVISOR Liam Traylor MD LAB - BLOOD ORDERABLES Performing Organization Address City/[facility] Code Phon e Number MISYS (ABNORMAL) Glucose by meter (03/16/2009 4:18 AM WATERWORKS SUPERVISOR) athologist Signature Glucose 189 (H) 60 - 99 MISYS mg/dL Specimen Anatomical Collection Method Collection Time Receive d Time (Source) Location / / Volume Laterality 03/16/2009 4:18 AM 9 9:20 WATERWORKS SUPERVISOR AM WATERWORKS SUPERVISOR Kaiden REHMAN - [place]ES[place] POCT Performing Organization Address City/[facility] Phon e Number MISYS (ABNORMAL) Glucose by meter (03/16/2009 12:05 AM WATERWORKS SUPERVISOR) athologist Signature Glucose 187 (H) 60 - 99 MISYS mg/dL Specimen Anatomical Collection Method Collection Time Receive d Time (Source) Location / / Volume Laterality 03/16/2009 12:05 03/16/2009 9:20 AM WATERWORKS SUPERVISOR AM WATERWORKS SUPERVISOR Kaiden REHMAN - BEJAZ POCT Performing Organization Address City/[facility] Phon e Number MISYS documented in this encounter Visit Diagnoses Not on filedocumented in this encounter Additional Health Concerns Infection Onset Date Last Indicated Resolved Time MRSA-Contact IsolationComment: 0 04/26/2021 11:03 AM WATERWORKS SUPERVISOR Infection erroneous documented as of this encounter
--- OUTSIDE RECORDS SUMMARY | 2022-04-01 12:37 | XMS_ITS | Encounter Summary ---
:1960 Author Organization [place] Address [address] [place] [address] Care Team Providers Name Role Phone Unavailable Primary Care Provider Unavailable Encounter Details Date Type Department Care Team Description 03/20/[address] [facility]ianni Church MD Hospitalists [address] [place], [place] [address] (Wo rk) Social History Tobacco Use Types [...] 03/20/2009 8:39 PM Resul ts for this MAILING SECTION CLERK procedure are i n the results section. GLUCOSE BY METER Routine 03/20/2009 4:06 PM Resul ts for this MAILING SECTION CLERK procedure are i n the results section. MAGNESIUM Timed 03/20/2009 3:33 PM Results f or this MAILING SECTION CLERK procedure are i n the results section. GLUCOSE BY METER Routine 03/20/2009 11:45 AM Resu lts for this MAILING SECTION CLERK procedure are i n the results section. GLUCOSE BY METER Routine 03/20/2009 7:25 AM Resul ts for this MAILING SECTION CLERK procedure are i n the results section. MAGNESIUM Routine 03/20/2009 5:04 AM Results f or this MAILING SECTION CLERK procedure are i n the results section. BASIC METABOLIC Routine 03/20/2009 5:04 AM Result s for this PANEL MAILING SECTION CLERK procedure are i n the results section. GLUCOSE BY METER Routine 03/20/2009 4:25 AM Resul ts for this MAILING SECTION CLERK procedure are i n the results section. GLUCOSE BY METER Routine 03/20/2009 12:04 AM Resu lts for this MAILING SECTION CLERK procedure are i n the results section. documented in this encounter Results Glucose by meter (03/20/2009 8:39 PM MAILING SECTION CLERK) athologist Signature Glucose 94 60 - 99 MISYS mg/dL Specimen Anatomical Collection Method Collection Time Receive d Time (Source) Location / / Volume Laterality 03/20/2009 8:39 PM 9 7:30 MAILING SECTION CLERK AM MAILING SECTION CLERK Kaiden Carpenter MD LAB - BEAKER POCT Performing Organization Address City/[facility] Phon e Number MISYS (ABNORMAL) Glucose by meter (03/20/2009 4:06 PM MAILING SECTION CLERK) athologist Signature Glucose 142 (H) 60 - 99 MISYS mg/dL Specimen Anatomical Collection Method Collection Time Receive d Time (Source) Location / / Volume Laterality 03/20/2009 4:06 PM 7:30 MAILING SECTION CLERK AM MAILING SECTION CLERK Kaiden REHMAN - JESICA POCT Performing Organization Address [facility] Phon e Number MISYS (ABNORMAL) Magnesium (03/20/2009 3:33 PM MAILING SECTION CLERK) athologist Signature Magnesium 2.7 (H) 1.6 - 2.3 MISYS mg/dL Comment: Results confirmed by repeat patricia t Specimen Anatomical Collection Method Collection Time Receive d Time (Source) Location / / Volume Laterality 03/20/2009 3:33 PM 9 4:00 MAILING SECTION CLERK PM MAILING SECTION CLERK Kaiden Carpenter MD LAB - BLOOD ORDERABLES Performing Organization Address City/[facility]/ZIP Code Phon e Number MISYS (ABNORMAL) Glucose by meter (03/20/2009 11:45 AM MAILING SECTION CLERK) athologist Signature Glucose 154 (H) 60 - 99 MISYS mg/dL Specimen Anatomical Collection Method Collection Time Receive d Time (Source) Location / / Volume Laterality 03/20/2009 11:45 03/21/2009 7:30 AM MAILING SECTION CLERK AM MAILING SECTION CLERK Kaiden Carpenter MD LAB - BEJAZ POCT Performing Organization Address City/State/ZIP Code Phon e Number MISYS (ABNORMAL) Glucose by meter (03/20/2009 7:25 AM MAILING SECTION CLERK) P athologist Signature Glucose 145 (H) 60 - 99 MISYS mg/dL Specimen Anatomical Collection Method Collection Time Receive d Time (Source) Location / / Volume Laterality 03/20/2009 7:25 AM 9 7:30 MAILING SECTION CLERK AM MAILING SECTION CLERK Kaiden Carpenter MD LAB - BEAKER POCT Performing Organization Address [facility] Code Phon e Number MISYS (ABNORMAL) Magnesium (03/20/2009 5:04 AM MAILING SECTION CLERK) athologist Signature Magnesium 1.2 (L) 1.6 - 2.3 MISYS mg/dL Specimen (Source) Anatomical Collection Method Collection Time Re ceived Time Location / / Volume Laterality 03/20/2009 5:04 AM 9 MAILING SECTION CLERK Brian Turner MD LAB - BLOOD ORDERABLES Performing Organization Address [facility] Phon e Number MISYS (ABNORMAL) Basic metabolic panel (03/20/2009 5:04 AM MAILING SECTION CLERK) athologist Signature Sodium 142 133 - 144 [...] / Volume Laterality 03/20/2009 5:04 AM 9 MAILING SECTION CLERK Liam Traylor MD LAB - BLOOD ORDERABLES Performing Organization Address City/[facility]/ZIP Code Phon e Number MISYS (ABNORMAL) Glucose by meter (03/20/2009 4:25 AM MAILING SECTION CLERK) P athologist Signature Glucose 149 (H) 60 - 99 MISYS mg/dL Specimen Anatomical Collection Method Collection Time Receive d Time (Source) Location / / Volume Laterality 03/20/2009 4:25 AM 9 4:35 MAILING SECTION CLERK AM MAILING SECTION CLERK Kaiden REHMAN - JES[place] POCT Performing Organization Address City/State/ZIP Code Phon e Number MISYS (ABNORMAL) Glucose by meter (03/20/2009 12:04 AM MAILING SECTION CLERK) P athologist Signature Glucose 155 (H) 60 - 99 MISYS mg/dL Specimen Anatomical Collection Method Collection Time Receive d Time (Source) Location / / Volume Laterality 03/20/2009 12:04 03/20/2009 AM MAILING SECTION CLERK 12:10 AM MAILING SECTION CLERK Kaiden REHMAN - JESICA POCT Performing Organization Address City/State/ZIP Code Phon e Number MISYS documented in this encounter Visit Diagnoses Not on filedocumented in this encounter Additional Health Concerns Infection Onset Date Last Indicated Resolved Time MRSA-Contact IsolationComment: 0 04/26/2021 11:03 AM MAILING SECTION CLERK Infection erroneous documented as of this encounter
--- OUTSIDE RECORDS SUMMARY | 2022-04-01 12:38 | XMS_ITS | Encounter Summary ---
:1960 Author Organization [facility] Address [address] [place] [address] Care Team Providers Name Role Phone Unavailable Primary Care Provider Unavailable Encounter Details Date Type Department Care Team Description 03/14/2009 Historic Results [facility]ianni Church MD Hospitalists [address] [place], [place] [address] (Wo rk) Social History [...] 03/14/2009 8:03 PM Resul ts for this JEWELER APPRENTICE procedure are i n the results section. GLUCOSE BY METER Routine 03/14/2009 3:54 PM Resul ts for this JEWELER APPRENTICE procedure are i n the results section. BLOOD GAS ARTERIAL AND Routine 03/14/2009 11:25 R esults for this OXYHGB AM JEWELER APPRENTICE procedure are i n the results section. CK TOTAL Timed 03/14/2009 10:50 Results for this AM JEWELER APPRENTICE procedure are i n the results section. BASIC METABOLIC PANEL Timed 03/14/2009 10:50 Re sults for this AM JEWELER APPRENTICE procedure are i n the results section. FRACTIONAL EXCRETION OF STAT 03/14/2009 9:00 AM Results for this SODIUM JEWELER APPRENTICE procedure are i n the results section. GLUCOSE BY METER Routine 03/14/2009 7:51 AM Resul ts for this JEWELER APPRENTICE procedure are i n the results section. BLOOD GAS ARTERIAL AND STAT 03/14/2009 5:05 AM Results for this OXYHGB JEWELER APPRENTICE procedure are i n the results section. SEND OUTS MISC TEST Routine 03/14/2009 4:45 AM Re sults for this JEWELER APPRENTICE procedure are i n the results section. SEND OUTS MISC TEST Routine 03/14/2009 4:45 AM Re sults for this JEWELER APPRENTICE procedure are i n the results section. STAPH AUREUS Routine 03/14/2009 4:40 AM Results f or this METHICILLIN RESISTANT JEWELER APPRENTICE proced ure are in PCR (RW) the results section. REFERRAL SENSITIVITY Routine 03/14/2009 4:40 AM R esults for this JEWELER APPRENTICE procedure are i n the results section. SALICYLATE LEVEL STAT 03/14/2009 4:30 AM Resul ts for this JEWELER APPRENTICE procedure are i n the results section. PHOSPHORUS Routine 03/14/2009 4:30 AM Results f or this JEWELER APPRENTICE procedure are i n the results section. MAGNESIUM Routine 03/14/2009 4:30 AM Results f or this JEWELER APPRENTICE procedure are i n the results section. COMPREHENSIVE METABOLIC Routine 03/14/2009 4:30 AM Results for this PANEL JEWELER APPRENTICE procedure are i n the results section. ACETAMINOPHEN LEVEL STAT 03/14/2009 4:30 AM Re sults for this JEWELER APPRENTICE procedure are i n the results section. GLUCOSE BY METER Routine 03/14/2009 4:29 AM Resul ts for this JEWELER APPRENTICE procedure are i n the results section. BLOOD GAS ARTERIAL AND Routine 03/14/2009 2:50 AM Results for this OXYHGB JEWELER APPRENTICE procedure are i n the results section. TROPONIN I Routine 03/14/2009 1:49 AM Results f or this JEWELER APPRENTICE procedure are i n the results section. INR Routine 03/14/2009 1:49 AM Results f or this JEWELER APPRENTICE procedure are i n the results section. POTASSIUM Routine 03/14/2009 1:49 AM Results f or this JEWELER APPRENTICE procedure are i n the results section. PARTIAL THROMBOPLASTIN Routine 03/14/2009 1:49 AM Results for this TIME JEWELER APPRENTICE procedure are i n the results section. MAGNESIUM Routine 03/14/2009 1:49 AM Results f or this JEWELER APPRENTICE procedure are i n the results section. BASIC METABOLIC PANEL Routine 03/14/2009 1:49 AM Results for this JEWELER APPRENTICE procedure are i n the results section. BLOOD GAS ARTERIAL AND Routine 03/14/2009 12:32 R esults for this OXYHGB AM JEWELER APPRENTICE procedure are i n the results section. ROUTINE UA WITH STAT 03/14/2009 12:24 Results for this MICROSCOPIC AM JEWELER APPRENTICE procedure are i n the results section. documented in this encounter Results (ABNORMAL) Glucose by meter (03/14/2009 8:03 PM JEWELER APPRENTICE) athologist Signature Glucose 162 (H) 60 - 99 MISYS mg/dL Specimen Anatomical Collection Method Collection Time Receive d Time (Source) Location / / Volume Laterality 03/14/2009 8:03 PM 9 8:20 JEWELER APPRENTICE PM JEWELER APPRENTICE Kaiden REHMAN - BEAKER POCT Performing Organization Address City/State/[facility] Code Phon e Number MISYS (ABNORMAL) Glucose by meter (03/14/2009 3:54 PM JEWELER APPRENTICE) athologist Signature Glucose 152 (H) 60 - 99 MISYS mg/dL Specimen Anatomical Collection Method Collection Time Receive d Time (Source) Location / / Volume Laterality 03/14/2009 3:54 PM 9 4:00 JEWELER APPRENTICE PM JEWELER APPRENTICE Kaiden REHMAN - JESICA POCT Performing Organization Address City/[facility] Code Phon e Number MISYS (ABNORMAL) Blood gas arterial and oxyhgb (03/14/2009 11:25 AM JEWELER APPRENTICE) [facility] gist Method Time Signature pH Arterial [...] Volume Laterality 03/14/2009 11:25 03/14/2009 8:51 AM JEWELER APPRENTICE AM JEWELER APPRENTICE Brian Turner MD LAB - BLOOD ORDERABLES Performing Organization Address City/[facility] Phon e Number MISYS (ABNORMAL) CK total (03/14/2009 10:50 AM JEWELER APPRENTICE) athologist Signature CK Total 1564 (HH) 45 - 300 MISYS U/L Comment: Critical Value called to and read back jessica MEDEIROS IN ICU AT 1133 ON 03/14/09 JAB Specimen Anatomical Collection Method Collection Time Receive d Time (Source) Location / / Volume Laterality 03/14/2009 10:50 03/14/2009 AM JEWELER APPRENTICE 11:00 AM JEWELER APPRENTICE Brian Turner MD LAB - BLOOD ORDERABLES Performing Organization Address City/State/ZIP Code Phon e Number MISYS (ABNORMAL) Basic metabolic panel (03/14/2009 10:50 AM JEWELER APPRENTICE) athologist Signature Sodium 136 133 - 144 [...] / Volume Laterality 03/14/2009 10:50 03/14/2009 AM JEWELER APPRENTICE 11:00 AM JEWELER APPRENTICE Brian Turner MD LAB - BLOOD ORDERABLES Performing Organization Address City/State/ZIP Code Phon e Number MISYS Fractional excretion of sodium (03/14/2009 9:00 AM JEWELER APPRENTICE) P athologist Signature Creatinine Urine 226 mg/dL [...] Volume Laterality 03/14/2009 9:00 AM 9 2:59 JEWELER APPRENTICE AM JEWELER APPRENTICE Richard Shirley MD LAB - URINE ORDERABLES Performing Organization Address City/State/ZIP Code Phon e Number MISYS (ABNORMAL) Glucose by meter (03/14/2009 7:51 AM JEWELER APPRENTICE) athologist Signature Glucose 151 (H) 60 - 99 MISYS mg/dL Specimen Anatomical Collection Method Collection Time Receive d Time (Source) Location / / Volume Laterality 03/14/2009 7:51 AM 9 JEWELER APPRENTICE 12:50 PM JEWELER APPRENTICE Kaiden Carpenter MD LAB - BEAKER POCT Performing Organization Address City/State/ZIP Code Phon e Number MISYS (ABNORMAL) Blood gas arterial and oxyhgb (03/14/2009 5:05 AM JEWELER APPRENTICE) P athologist Signature pH Arterial 7.21 (L) [...] Volume Laterality 03/14/2009 5:05 AM 9 5:09 JEWELER APPRENTICE AM JEWELER APPRENTICE Kaiden Carpenter MD LAB - BLOOD ORDERABLES Performing Organization Address [facility] Code Phon e Number MISYS Send outs misc test (03/14/2009 4:45 AM JEWELER APPRENTICE) [facility] Method Time Signature Test Name VOLATILES MISYS SCREEN Send Outs Whole Blood MISYS Misc Test Specimen Result (Note) MISYS Comment: VOLATILES SCREEN: POSITIVE ACETONE: POSITIVE Volatiles screen includes: acetone, ethy l alcohol, isopropyl alcohol, and methyl alcohol. Normal Range for Send Outs Misc Test Negative MISYS Comment: Assayed at [facility] ,[employer] [place] [address] Specimen Anatomical Collection Method Collection Time Receive d Time (Source) Location / / Volume Laterality 03/14/2009 4:45 AM 9 5:01 JEWELER APPRENTICE AM JEWELER APPRENTICE Kaiden Carpenter MD LAB - BLOOD ORDERABLES Performing Organization Address [facility] Phon e Number MISYS Send outs misc test (03/14/2009 4:45 AM JEWELER APPRENTICE) [facility] Method Time Signature Test Name ETHYLENE MISYS GLYCOL Send Outs Misc Whole Blood MISYS Test Specimen Result Negative MISYS Normal Range Negative MISYS for Send Outs Misc Test Comment: Assayed at [employer] [place] [id number] Specimen Anatomical Collection Method Collection Time Receive d Time (Source) Location / / Volume Laterality 03/14/2009 4:45 AM 9 5:05 JEWELER APPRENTICE AM JEWELER APPRENTICE Kaiden Carpenter MD LAB - BLOOD ORDERABLES Performing Organization Address [facility] Phon e Number MISYS Staph aureus methicillin resistant PCR (03/14/2009 4:40 AM JEWELER APPRENTICE) [facility] Method Time Signature Specimen Nares [...] Volume Laterality 03/14/2009 4:40 AM 9 1:10 JEWELER APPRENTICE AM JEWELER APPRENTICE Kaiden Carpenter MD LAB - MICRO GENERAL ORDERABL ES Performing Organization Address City/State/ZIP Code Phon e Number MISYS Referral sensitivity (03/14/2009 4:40 AM JEWELER APPRENTICE) Component Value Ref Test Analysis Performed Pathologis t Range Method Time At Signature Specimen Nares MISYS Description Culture Micro No MRSA isolated: MISYS susceptibilities not available. PCR assay is more sensitive Comment: than culture. Micro Report Status FINAL 03/20/2009 MIS YS Specimen Anatomical Collection Method Collection Time Receive d Time (Source) Location / / Volume Laterality 03/14/2009 4:40 AM 9 3:03 JEWELER APPRENTICE PM JEWELER APPRENTICE Kaiden Carpenter MD LAB - MICRO GENERAL ORDERABL ES Performing Organization Address City/State/ZIP Code Phon e Number MISYS (ABNORMAL) Comprehensive metabolic panel (03/14/2009 4:30 AM JEWELER APPRENTICE) P athologist Signature Sodium 127 (L) 133 [...] Volume Laterality 03/14/2009 4:30 AM 9 2:57 JEWELER APPRENTICE AM JEWELER APPRENTICE Richard Shirley MD LAB - BLOOD ORDERABLES Performing Organization Address [facility] Phon e Number MISYS (ABNORMAL) Phosphorus (03/14/2009 4:30 AM JEWELER APPRENTICE) P athologist Signature Phosphorus 8.4 (H) 2.5 - 4.5 MISYS mg/dL Specimen Anatomical Collection Method Collection Time Receive d Time (Source) Location / / Volume Laterality 03/14/2009 4:30 AM 9 2:57 JEWELER APPRENTICE AM JEWELER APPRENTICE Richard Shirley MD LAB - BLOOD ORDERABLES Performing Organization Address [facility] Phon e Number MISYS Magnesium (03/14/2009 4:30 AM JEWELER APPRENTICE) athologist Signature Magnesium 2.1 1.6 - 2.3 MISYS mg/dL Specimen Anatomical Collection Method Collection Time Receive d Time (Source) Location / / Volume Laterality 03/14/2009 4:30 AM 9 2:57 JEWELER APPRENTICE AM JEWELER APPRENTICE Richard Shirley MD LAB - BLOOD ORDERABLES Performing Organization Address [facility] Code Phon e Number MISYS Acetaminophen level (03/14/2009 4:30 AM JEWELER APPRENTICE) Analysis Performed At Patho logist Time Signature Acetaminophen <10 mg/L MISYS Level Specimen Anatomical Collection Method Collection Time Receive d Time (Source) Location / / Volume Laterality 03/14/2009 4:30 AM 9 2:59 JEWELER APPRENTICE AM JEWELER APPRENTICE Richard Shirley MD LAB - BLOOD ORDERABLES Performing Organization Address [facility] Phon e Number MISYS Salicylate level (03/14/2009 4:30 AM JEWELER APPRENTICE) P athologist Signature Salicylate Level <1 mg/dL MISYS Comment: Therapeutic: ?<20 Anti inflammatory: ??15-30 Specimen Anatomical Collection Method Collection Time Receive d Time (Source) Location / / Volume Laterality 03/14/2009 4:30 AM 9 2:59 JEWELER APPRENTICE AM JEWELER APPRENTICE Richard Shirley MD LAB - BLOOD ORDERABLES Performing Organization Address City/[facility] Code Phon e Number MISYS (ABNORMAL) Glucose by meter (03/14/2009 4:29 AM JEWELER APPRENTICE) P athologist Signature Glucose 156 (H) 60 - 99 MISYS mg/dL Specimen Anatomical Collection Method Collection Time Receive d Time (Source) Location / / Volume Laterality 03/14/2009 4:29 AM 9 JEWELER APPRENTICE 12:50 PM JEWELER APPRENTICE Kaiden Carpenter MD LAB - BEAKER POCT Performing Organization Address City/[facility] Code Phon e Number MISYS (ABNORMAL) Blood gas arterial and oxyhgb (03/14/2009 2:50 AM JEWELER APPRENTICE) Patholo gist Method Time Signature pH Arterial [...] Volume Laterality 03/14/2009 2:50 AM 9 2:38 JEWELER APPRENTICE AM JEWELER APPRENTICE Haroldo Arnold MD LAB - BLOOD ORDERABLES Performing Organization Address City/[facility]/ZIP Code Phon e Number MISYS (ABNORMAL) INR (03/14/2009 1:49 AM JEWELER APPRENTICE) athologist Signature INR 1.19 (H) 0.86 - 1.14 MISYS Specimen Anatomical Collection Method Collection Time Receive d Time (Source) Location / / Volume Laterality 03/14/2009 1:49 AM 9 2:00 JEWELER APPRENTICE AM JEWELER APPRENTICE [facility] LAB - BLOOD ORDERABLES Performing Organization Address City/State/[facility] Phon e Number MISYS (ABNORMAL) Potassium (03/14/2009 1:49 AM JEWELER APPRENTICE) athologist Signature Potassium 6.0 (H) 3.4 - 5.3 MISYS mmol/L Specimen Anatomical Collection Method Collection Time Receive d Time (Source) Location / / Volume Laterality 03/14/2009 1:49 AM 9 2:00 JEWELER APPRENTICE AM JEWELER APPRENTICE [facility] LAB - BLOOD ORDERABLES Performing Organization Address [facility] Phon e Number MISYS Partial thromboplastin time (03/14/2009 1:49 AM JEWELER APPRENTICE) athologist Signature PTT 32 22 - 37 sec MISYS Specimen Anatomical Collection Method Collection Time Receive d Time (Source) Location / / Volume Laterality 03/14/2009 1:49 AM 9 2:00 JEWELER APPRENTICE AM JEWELER APPRENTICE Authorizing Provider Result [facility] LAB - BLOOD ORDERABLES Performing Organization Address [facility] Phon e Number MISYS (ABNORMAL) Troponin I (03/14/2009 1:49 AM JEWELER APPRENTICE) Analysis Performed At Patho logist Time Signature Troponin I ES 0.163 (HH) 0.000 - MISYS 0.034 ug/L Comment: Critical Value called to and read back jessica SLATER (ICU) ON 03.14.09 AT 0246 BY Specimen Anatomical Collection Method Collection Time Receive d Time (Source) Location / / Volume Laterality 03/14/2009 1:49 AM 9 2:19 JEWELER APPRENTICE AM JEWELER APPRENTICE Authorizing Provider Result [facility] LAB - BLOOD ORDERABLES Performing Organization Address [facility] Phon e Number MISYS (ABNORMAL) Basic metabolic panel (03/14/2009 1:49 AM JEWELER APPRENTICE) Patholo gist Method Time Signature Sodium 128 [...] Volume Laterality 03/14/2009 1:49 AM 9 2:20 JEWELER APPRENTICE AM JEWELER APPRENTICE [facility] LAB - BLOOD ORDERABLES Performing Organization Address City/[facility] Code Phon e Number MISYS Magnesium (03/14/2009 1:49 AM JEWELER APPRENTICE) athologist Signature Magnesium 2.3 1.6 - 2.3 MISYS mg/dL Specimen Anatomical Collection Method Collection Time Receive d Time (Source) Location / / Volume Laterality 03/14/2009 1:49 AM 9 2:20 JEWELER APPRENTICE AM JEWELER APPRENTICE [facility] LAB - BLOOD ORDERABLES Performing Organization Address City/[facility]/ZIP Code Phon e Number MISYS (ABNORMAL) Blood gas arterial and oxyhgb (03/14/2009 12:32 AM JEWELER APPRENTICE) [facility] gist Method Time Signature pH Arterial [...] / Volume Laterality 03/14/2009 12:32 03/14/2009 AM JEWELER APPRENTICE 12:34 AM JEWELER APPRENTICE Haroldo Arnold MD LAB - BLOOD ORDERABLES Performing Organization Address City/State/ZIP [facility] Phon e Number MISYS (ABNORMAL) Routine UA with microscopic (03/14/2009 12:24 AM JEWELER APPRENTICE) Component Value Ref Test Analysis Performed At [facility] Range Method Time Signature Source Catheterized MISYS Urine Color Urine Straw MISYS Appearance Urine Slightly Cloudy MISYS Glucose Urine Negative NEG MISYS mg/dL Bilirubin Urine Negative NEG MISYS Ketones Urine 5 (A) NEG MISYS mg/dL Specific [place] 1.017 1.003 - MISYS Urine 1.035 Blood [...] / Volume Laterality 03/14/2009 12:24 03/14/2009 AM JEWELER APPRENTICE 12:25 AM JEWELER APPRENTICE Haroldo Arnold MD LAB - URINE ORDERABLES Performing Organization Address [facility] Phon e Number MISYS documented in this encounter Visit Diagnoses Not on filedocumented in this encounter Additional Health Concerns Infection Onset Date Last Indicated Resolved Time MRSA-Contact IsolationComment: 0 04/26/2021 11:03 AM JEWELER APPRENTICE Infection erroneous documented as of this encounter
--- OUTSIDE RECORDS SUMMARY | 2022-04-01 12:38 | XMS_ITS | Encounter Summary ---
:1960 Author Organization [facility] Address [address] [place] [address] Care Team Providers Name Role Phone Unavailable [...] 03/14/2009 2:10 AM Results f or this BUNG DRIVER procedure are i n the results section . documented in this encounter Results EKG 12 LEAD (03/14/2009 2:10 AM BUNG DRIVER) Component Value Ref Range Test Analysis Performed Pathologis t Method Time At Signature Ventricular Rate 124 BPM RADIOLOGY RESULTS Atrial Rate 124 BPM RADIOLOGY RESULTS VA Interval 146 ms RADIOLOGY RESULTS QRS Duration 104 ms RADIOLOGY RESULTS QT 302 ms RADIOLOGY RESULTS QTc 433 ms RADIOLOGY RESULTS P [place] 47 degrees RADIOLOGY RESULTS R AXIS -3 degrees RADIOLOGY RESULTS T [place] 8 degrees RADIOLOGY RESULTS Interpretation AGE AND GENDER SPECIFIC ECG ANALYSIS RADIOLOGY ECG Sinus tachycardia RESULTS Otherwise normal ECG Unconfirmed report - interpretation of this ECG is compute r generated - see medical record for final interpretation Specimen Anatomical Collection Method Collection Time Receive d Time (Source) Location / / Volume Laterality 03/14/2009 2:10 AM 9 BUNG DRIVER 10:47 AM BUNG DRIVER Transcripton Interface ECG ORDERABLES Performing Organization Address City/State/ZIP Code Phon e Number RADIOLOGY RESULTS documented in this encounter Visit Diagnoses Not on filedocumented in this encounter Additional Health Concerns Infection Onset Date Last Indicated Resolved Time MRSA-Contact IsolationComment: 0 04/26/2021 11:03 AM BUNG DRIVER Infection erroneous documented as of this encounter
--- OUTSIDE RECORDS SUMMARY | 2022-04-01 12:38 | XMS_ITS | Encounter Summary ---
:1960 Author Organization [facility] Address [address] [place] [id number] Care Team Providers Name Role Phone Unavailable [...] as of this encounter Progress Notes Interface, Broker - 07/10/2010 3:30 PM CDT Pt. placed on 10/5 bipap, rate of 8, 40%. SpO2 97%. Pt. found off bipap per RN at 0015. [Signature] Author: Flora Siddiqui (BULK PICKER) [Signed 00:34] Interface, Broker - 07/10/2010 3:30 PM CDT Notification - [...] SUZANNE OBREGON (RN)[Signed 07:50] Authored: Notification Interface, Broker - 07/10/2010 3:29 PM CDT General Information - How to be Addressed navarro - Temporary Family none required Living Arrangements - Source of Information family; significant other - Arrived From emergency department - storeperson #1: Shalonda - Relationship to girlfriend patient #1: - Contact Location: Home Local - Phone 1: [phone] - storeperson #2: Chantal Woods - Relationship to sister patient #2: - Contact Location: Home Local - Phone 1: [phone] - Cell - storeperson #3: Juan Pablo - Relationship to mom & dad patient #3: - Phone 1: [phone] - Patient's spoken language; Syrian or Bilingual communication style Advance Directive - [...] abuse, self neglect, lack of adequate food, usp, medical care, or financial exploitation)? Values/Beliefs/Spiritual Care - C: Community: In pt/family will contact support of your spiritual health, is there someone we may contact for you? (identify all that apply) Learning Assessment - Factors Influencing acuteness of illness Readiness to Learn - Factors that Impact unresponsive Ability to Learn - Learning Preferences unable - Cultural none Considerations - Developmental none Considerations - Confucianist none Considerations Mutuality/Individual Preferences - What information [...] Time MRSA-Contact IsolationComment: 0 04/26/2021 11:03 AM APARTMENT HOTEL MANAGER Infection erroneous documented as of this encounter
--- OUTSIDE RECORDS SUMMARY | 2022-04-01 12:38 | XMS_ITS | Encounter Summary ---
:1960 Author Organization [place] Address [address] [place] [address] Care Team Providers Name Role Phone Unavailable Primary Care Provider Unavailable Encounter Details Date Type Department Care Team Description 03/14/2009 Historic Notes INTERFACED REPORT Xu Wyatt MD [address] [facility] [address] [place] [address] (Wo rk) Social History Tobacco [...] Respiratory failure: continue current vent support. GB [phone] [Signature] Author: BRIAN WYATT) [Signed 08:53] documented in this encounter Plan of Treatment Not on filedocumented as of this encounter Visit Diagnoses Not on filedocumented in this encounter Additional Health Concerns Infection Onset Date Last Indicated Resolved Time MRSA-Contact IsolationComment: 0 04/26/2021 11:03 AM CONCRETE SMOOTHER Infection erroneous documented as of this encounter
--- OUTSIDE RECORDS SUMMARY | 2022-04-01 12:38 | XMS_ITS | Encounter Summary ---
:1960 Author Organization [place] Address [address] [place] [address] Care Team Providers Name Role Phone Unavailable Primary Care Provider Unavailable Encounter Details Date Type Department Care Team Description 03/15/2009 Historic Results [facility]Gianni Church MD Hospitalists [address] [place], [place] [address] (Wo rk) Social History [...] 03/15/2009 7:49 PM Resul ts for this MAINTENANCE DIRECTOR procedure are i n the results section. GLUCOSE BY METER Routine 03/15/2009 4:01 PM Resul ts for this MAINTENANCE DIRECTOR procedure are i n the results section. GLUCOSE BY METER Routine 03/15/2009 11:58 AM Resu lts for this MAINTENANCE DIRECTOR procedure are i n the results section. BLOOD GAS ARTERIAL Routine 03/15/2009 8:45 AM Res ults for this AND OXYHGB MAINTENANCE DIRECTOR procedure are i n the results section. PHOSPHORUS Routine 03/15/2009 5:30 AM Results f or this MAINTENANCE DIRECTOR procedure are i n the results section. MAGNESIUM Routine 03/15/2009 5:30 AM Results f or this MAINTENANCE DIRECTOR procedure are i n the results section. CK TOTAL Routine 03/15/2009 5:30 AM Results f or this MAINTENANCE DIRECTOR procedure are i n the results section. BASIC METABOLIC Routine 03/15/2009 5:30 AM Result s for this PANEL MAINTENANCE DIRECTOR procedure are i n the results section. CBC WITH PLATELETS Routine 03/15/2009 5:30 AM Res ults for this MAINTENANCE DIRECTOR procedure are i n the results section. BLOOD GAS ARTERIAL Routine 03/15/2009 4:20 AM Res ults for this AND OXYHGB MAINTENANCE DIRECTOR procedure are i n the results section. GLUCOSE BY METER Routine 03/15/2009 4:01 AM Resul ts for this MAINTENANCE DIRECTOR procedure are i n the results section. documented in this encounter Results (ABNORMAL) Glucose by meter (03/15/2009 7:49 PM MAINTENANCE DIRECTOR) athologist Signature Glucose 160 (H) 60 - 99 MISYS mg/dL Specimen Anatomical Collection Method Collection Time Receive d Time (Source) Location / / Volume Laterality 03/15/2009 7:49 PM 9 8:20 MAINTENANCE DIRECTOR PM MAINTENANCE DIRECTOR Kaiden REHMAN - JESICA POCT Performing Organization Address [facility] Phon e Number MISYS (ABNORMAL) Glucose by meter (03/15/2009 4:01 PM MAINTENANCE DIRECTOR) athologist Signature Glucose 159 (H) 60 - 99 MISYS mg/dL Specimen Anatomical Collection Method Collection Time Receive d Time (Source) Location / / Volume Laterality 03/15/2009 4:01 PM 9 4:25 MAINTENANCE DIRECTOR PM MAINTENANCE DIRECTOR Kaiden REHMAN - JESICA POCT Performing Organization Address [facility] Phon e Number MISYS (ABNORMAL) Glucose by meter (03/15/2009 11:58 AM MAINTENANCE DIRECTOR) athologist Signature Glucose 127 (H) 60 - 99 MISYS mg/dL Specimen Anatomical Collection Method Collection Time Receive d Time (Source) Location / / Volume Laterality 03/15/2009 11:58 03/15/2009 AM MAINTENANCE DIRECTOR 12:20 PM MAINTENANCE DIRECTOR Kaiden MOONEY POCT Performing Organization Address [facility] Phon e Number MISYS (ABNORMAL) Blood gas arterial and oxyhgb (03/15/2009 8:45 AM MAINTENANCE DIRECTOR) [facility] Method Time Signature pH [...] Volume Laterality 03/15/2009 8:45 AM 9 5:04 MAINTENANCE DIRECTOR AM MAINTENANCE DIRECTOR Provider Unknown LAB - BLOOD ORDERABLES Performing Organization Address City/State/ZIP Code Phon e Number MISYS (ABNORMAL) Basic metabolic panel (03/15/2009 5:30 AM MAINTENANCE DIRECTOR) Analysis Performed At [facility] Time Signature Sodium 134 133 - [...] / Volume Laterality 03/15/2009 5:30 AM 9 MAINTENANCE DIRECTOR Brian Turner MD LAB - BLOOD ORDERABLES Performing Organization Address City/State/ZIP Code Phon e Number MISYS (ABNORMAL) CBC with platelets (03/15/2009 5:30 AM MAINTENANCE DIRECTOR) Analysis Performed At [facility] Time Signature MCV 94 78 - [...] / Volume Laterality 03/15/2009 5:30 AM 9 MAINTENANCE DIRECTOR Brian Turner MD LAB - BLOOD ORDERABLES Performing Organization Address City/State/ZIP Code Phon e Number MISYS (ABNORMAL) CK total (03/15/2009 5:30 AM MAINTENANCE DIRECTOR) P athologist Signature CK Total 705 (H) 45 - 300 MISYS U/L Specimen (Source) Anatomical Collection Method Collection Time Re ceived Time Location / / Volume Laterality 03/15/2009 5:30 AM 9 MAINTENANCE DIRECTOR Brian Turner MD LAB - BLOOD ORDERABLES Performing Organization Address City/[facility]/ZIP Code Phon e Number MISYS Magnesium (03/15/2009 5:30 AM MAINTENANCE DIRECTOR) athologist Signature Magnesium 1.8 1.6 - 2.3 MISYS mg/dL Specimen (Source) Anatomical Collection Method Collection Time Re ceived Time Location / / Volume Laterality 03/15/2009 5:30 AM 9 MAINTENANCE DIRECTOR Brian Turner MD LAB - BLOOD ORDERABLES Performing Organization Address City/State/ZIP Code Phon e Number MISYS Phosphorus (03/15/2009 5:30 AM MAINTENANCE DIRECTOR) P athologist Signature Phosphorus 4.4 2.5 - 4.5 MISYS mg/dL Specimen (Source) Anatomical Collection Method Collection Time Re ceived Time Location / / Volume Laterality 03/15/2009 5:30 AM 9 MAINTENANCE DIRECTOR Brian Turner MD LAB - BLOOD ORDERABLES Performing Organization Address City/State/ZIP Code Phon e Number MISYS (ABNORMAL) Blood gas arterial and oxyhgb (03/15/2009 4:20 AM MAINTENANCE DIRECTOR) Patholo gist Method Time Signature pH Arterial [...] / Volume Laterality 03/15/2009 4:20 AM 9 MAINTENANCE DIRECTOR Brian Turner MD LAB - BLOOD ORDERABLES Performing Organization Address City/State/ZIP Code Phon e Number MISYS (ABNORMAL) Glucose by meter (03/15/2009 4:01 AM MAINTENANCE DIRECTOR) P athologist Signature Glucose 173 (H) 60 - 99 MISYS mg/dL Specimen Anatomical Collection Method Collection Time Receive d Time (Source) Location / / Volume Laterality 03/15/2009 4:01 AM 9 5:15 MAINTENANCE DIRECTOR AM MAINTENANCE DIRECTOR Kaiden [place] MD LAB - BEAKER POCT Performing Organization Address City/State/ZIP Code Phon e Number MISYS documented in this encounter Visit Diagnoses Not on filedocumented in this encounter Additional Health Concerns Infection Onset Date Last Indicated Resolved Time MRSA-Contact IsolationComment: 0 04/26/2021 11:03 AM MAINTENANCE DIRECTOR Infection erroneous documented as of this encounter
--- OUTSIDE RECORDS SUMMARY | 2022-04-01 12:38 | XMS_ITS | Encounter Summary ---
:1960 Author Organization [place] Address [address] [place] [address] Care Team Providers Name Role Phone Unavailable [...] 03/14/2009 2:09 AM Results f or this SHAPER HAND procedure are i n the results section . documented in this encounter Results EKG 12 LEAD (03/14/2009 2:09 AM SHAPER HAND) Component Value Ref Range Test Analysis Performed Pathologis t Method Time At Signature Ventricular Rate 125 BPM RADIOLOGY RESULTS Atrial Rate 125 BPM RADIOLOGY RESULTS SC Interval 148 ms RADIOLOGY RESULTS QRS Duration 104 ms RADIOLOGY RESULTS QT 300 ms RADIOLOGY RESULTS QTc 433 ms RADIOLOGY RESULTS P [place] 43 degrees RADIOLOGY RESULTS R AXIS -4 degrees RADIOLOGY RESULTS T [place] 13 degrees RADIOLOGY RESULTS Interpretation AGE AND GENDER SPECIFIC ECG ANALYSIS RADIOLOGY ECG Sinus tachycardia RESULTS Otherwise normal ECG Unconfirmed report - interpretation of this ECG is compute r generated - see medical record for final interpretation Specimen Anatomical Collection Method Collection Time Receive d Time (Source) Location / / Volume Laterality 03/14/2009 2:09 AM 9 SHAPER HAND 10:47 AM SHAPER HAND Transcripton Interface ECG ORDERABLES Performing Organization Address City/State/ZIP Code Phon e Number RADIOLOGY RESULTS documented in this encounter Visit Diagnoses Not on filedocumented in this encounter Additional Health Concerns Infection Onset Date Last Indicated Resolved Time MRSA-Contact IsolationComment: 0 04/26/2021 11:03 AM SHAPER HAND Infection erroneous documented as of this encounter
--- OUTSIDE RECORDS SUMMARY | 2022-04-01 12:38 | XMS_ITS | Encounter Summary ---
:1960 Author Organization [place] Address [address] [place] [address] Care Team Providers Name Role Phone Unavailable Primary Care Provider Unavailable Encounter Details Date Type Department Care Team Description 03/15/2009 Historic Notes INTERFACED REPORT Xu Wyatt MD [address] [facility] [address] [place] [address] (Wo rk) Social History Tobacco [...] soft Ext: no edema 7.5/28/177 K 4.3, Clinical Cytogeneticist Scientist 8.4, Mg 1.8, CK 705 A/P: Alcohol [...] consider TFs if pt still intubated tomorrow [phone] [Signature] Author: BRIAN WYATT) [Signed 09:48] documented in this encounter Plan of Treatment Not on filedocumented as of this encounter Visit Diagnoses Not on filedocumented in this encounter Additional Health Concerns Infection Onset Date Last Indicated Resolved Time MRSA-Contact IsolationComment: 0 04/26/2021 11:03 AM FLATWORK SUPERVISOR Infection erroneous documented as of this encounter
--- OUTSIDE RECORDS SUMMARY | 2022-04-01 12:38 | XMS_ITS | Encounter Summary ---
:1960 Author Organization [place] Address [address] [place] [address] Care Team Providers Name Role Phone Unavailable [...] Routine 03/14/2009 12:11 AM Results for this SOLUTION SPECIALIST procedure are i n the results section . documented in this encounter Results EKG 12 LEAD (03/14/2009 12:11 AM SOLUTION SPECIALIST) Component Value Ref Range Test Analysis Performed Pathologis t Method Time At Signature Ventricular Rate 131 BPM RADIOLOGY RESULTS Atrial Rate 131 BPM RADIOLOGY RESULTS TX Interval 142 ms RADIOLOGY RESULTS QRS Duration 90 ms RADIOLOGY RESULTS QT 278 ms RADIOLOGY RESULTS QTc 410 ms RADIOLOGY RESULTS P [place] 36 degrees RADIOLOGY RESULTS R AXIS -6 degrees RADIOLOGY RESULTS T [place] 28 degrees RADIOLOGY RESULTS Interpretation AGE AND [...] / Volume Laterality 03/14/2009 12:11 03/16/2009 AM SOLUTION SPECIALIST 10:46 AM SOLUTION SPECIALIST Transcripton Interface ECG ORDERABLES Performing Organization Address City/State/ZIP Code Phon e Number RADIOLOGY RESULTS documented in this encounter Visit Diagnoses Not on filedocumented in this encounter Additional Health Concerns Infection Onset Date Last Indicated Resolved Time MRSA-Contact IsolationComment: 0 04/26/2021 11:03 AM SOLUTION SPECIALIST Infection erroneous documented as of this encounter
--- OUTSIDE RECORDS SUMMARY | 2022-04-01 12:38 | XMS_ITS | Encounter Summary ---
:1960 Author Organization [place] Address [address] [place] [address]. [place] [address] Care Team Providers Name Role Phone Unavailable Primary Care Provider Unavailable Encounter Details Date Type Department Care Team Description 03/15/2009 Emergency room [facility] Je Mendes MD [facility] Results [facility] [address] [place] [address] [place] [id number] (Wo rk) Social History Tobacco Use Types Packs/Day Years Used Date Smoking Tobacco: Never Alcohol Use Standard Drinks/Week Comments Yes 0 (1 standard drink = 0.6 oz pure alcoho l) socially approx 5 drinks/wk Sex Assigned at Date Recorded Not on file documented as of this encounter Progress Notes Haroldo Mendes - 05/01/2009 6:26 AM BUSINESS MANAGEMENT MANAGER FINAL CHIEF COMPLAINT: Shortness of breath and [...] was cardioverted, Dr. [place] noted that the composition professor thought that the patient was likely in rhabdo and was unlikely to require emergent dialysis tonight. He recommended fluid and stabilization resuscitation and that he would be seen in the morning. This greatly concern me as I felt that Mr. Brown met multiple criteria for emergent dialysis tonight. I, therefore, called the composition professor back and explained to him my great [...] [id number] Name: ELIJAH BROWN MRN: [id number] Account: [id number] : 1960 Visit Date: Document: [id number] NESS MANAGEMENT MANAGER documented in this encounter Plan of Treatment Not on filedocumented as of this encounter Visit Diagnoses Not on filedocumented in this encounter Additional Health Concerns Infection Onset Date Last Indicated Resolved Time MRSA-Contact IsolationComment: 0 04/26/2021 11:03 AM BUSINESS MANAGEMENT MANAGER Infection erroneous documented as of this encounter
--- OUTSIDE RECORDS SUMMARY | 2022-04-01 12:38 | XMS_ITS | Encounter Summary ---
:1960 Author Organization [place] Address [address] [place] [address] Care Team Providers Name Role Phone Unavailable [...] 03/14/2009 2:09 AM Results f or this DIET CLERK procedure are i n the results section . documented in this encounter Results EKG 12 LEAD (03/14/2009 2:09 AM DIET CLERK) Component Value Ref Range Test Analysis Performed Pathologis t Method Time At Signature Ventricular Rate 126 BPM RADIOLOGY RESULTS Atrial Rate 126 BPM RADIOLOGY RESULTS [place] Interval 148 ms RADIOLOGY RESULTS QRS Duration 104 ms RADIOLOGY RESULTS QT 282 ms RADIOLOGY RESULTS QTc 408 ms RADIOLOGY RESULTS P [place] 44 degrees RADIOLOGY RESULTS R AXIS -3 degrees RADIOLOGY RESULTS T [place] 3 degrees RADIOLOGY RESULTS Interpretation AGE AND GENDER SPECIFIC ECG ANALYSIS RADIOLOGY ECG Sinus tachycardia RESULTS Otherwise normal ECG Unconfirmed report - interpretation of this ECG is compute r generated - see medical record for final interpretation Specimen Anatomical Collection Method Collection Time Receive d Time (Source) Location / / Volume Laterality 03/14/2009 2:09 AM 9 DIET CLERK 10:47 AM DIET CLERK Transcripton Interface ECG ORDERABLES Performing Organization Address City/State/ZIP Code Phon e Number RADIOLOGY RESULTS documented in this encounter Visit Diagnoses Not on filedocumented in this encounter Additional Health Concerns Infection Onset Date Last Indicated Resolved Time MRSA-Contact IsolationComment: 0 04/26/2021 11:03 AM DIET CLERK Infection erroneous documented as of this encounter
--- OUTSIDE RECORDS SUMMARY | 2022-04-01 12:38 | XMS_ITS | Encounter Summary ---
:1960 Author Organization [place] Address [address] [place] [address] Care Team Providers Name Role Phone Unavailable [...] 03/14/2009 1:21 AM Results f or this PHYSICIAN RELATIONS REPRESENTATIVE procedure are i n the results section . documented in this encounter Results EKG 12 LEAD (03/14/2009 1:21 AM PHYSICIAN RELATIONS REPRESENTATIVE) Component Value Ref Range Test Analysis Performed Pathologis t Method Time At Signature Ventricular Rate 178 BPM RADIOLOGY RESULTS Atrial Rate 197 BPM RADIOLOGY RESULTS QRS Duration 100 ms RADIOLOGY RESULTS QT 274 ms RADIOLOGY RESULTS QTc 471 ms RADIOLOGY RESULTS R AXIS -2 degrees RADIOLOGY RESULTS T [place] -154 degrees RADIOLOGY RESULTS Interpretation AGE AND [...] / Volume Laterality 03/14/2009 1:21 AM 9 PHYSICIAN RELATIONS REPRESENTATIVE 10:47 AM PHYSICIAN RELATIONS REPRESENTATIVE Transcripton Interface ECG ORDERABLES Performing Organization Address City/State/ZIP Code Phon e Number RADIOLOGY RESULTS documented in this encounter Visit Diagnoses Not on filedocumented in this encounter Additional Health Concerns Infection Onset Date Last Indicated Resolved Time MRSA-Contact IsolationComment: 0 04/26/2021 11:03 AM PHYSICIAN RELATIONS REPRESENTATIVE Infection erroneous documented as of this encounter
--- OUTSIDE RECORDS SUMMARY | 2022-04-01 12:38 | XMS_ITS | Encounter Summary ---
:1960 Author Organization [place] Address [address] [place] [address] Care Team Providers Name Role Phone Unavailable Primary Care Provider Unavailable Encounter Details Date Type Department Care Team Description 03/15/2009 Results Only [facility] Liam Traylor MD Hospital Results [address] [place], [place] [address] (Wo rk) Social History [...] Name Priority Date/Time Associated Diagnosis Comme [facility] CHEST ONE VIEW Routine 03/15/2009 8:38 AM Resu lts for this ESTABLISHMENT GUIDE procedure are i n the results section. documented in this encounter Results CHEST X-RAY 1 VW (03/15/2009 8:38 AM ESTABLISHMENT GUIDE) Anatomical Region Laterality Modality Other Specimen (Source) Anatomical Collection Method Collection Time Re ceived Time Location / / Volume Laterality 03/15/2009 8:38 AM ESTABLISHMENT GUIDE Impressions 03/15/2009 12:28 PM ESTABLISHMENT GUIDE CHEST, ONE VIEW PORTABLE ?? Mar 15, [...] Time MRSA-Contact IsolationComment: 0 04/26/2021 11:03 AM ESTABLISHMENT GUIDE Infection erroneous documented as of this encounter
--- OUTSIDE RECORDS SUMMARY | 2022-04-01 12:39 | XMS_ITS | Encounter Summary ---
:1960 Author Organization [place] Address [address] [place] [address] Care Team Providers Name Role Phone Unavailable Primary Care Provider Unavailable Encounter Details Date Type Department Care Team Description 09/19/2008 Historic Results [facility] Heart Unknown, Doct or, Clinic [address] [place] [address] Social History Tobacco Use Types Packs/Day Years [...] GEMMS Historical Results (09/19/2008 12:00 AM CDT) [facility] gist Method Time Signature Triglycerides 131 [...] Time MRSA-Contact IsolationComment: 0 04/26/2021 11:03 AM VOTING MACHINE REPAIRER Infection erroneous documented as of this encounter
--- OUTSIDE RECORDS SUMMARY | 2022-04-01 12:39 | XMS_ITS | Encounter Summary ---
:1960 Author Organization [place] Address [address] [place] [address] Care Team Providers Name Role Phone Unavailable Primary Care Provider Unavailable Encounter Details Date Type Department Care Team Description 09/08/2008 Historic Results INTERFACED REPORT Marie Orozco MD EMERGENCY PHYSIC IARACHEL MCKOY [address] [place], [place] [address] (Wo rk) Social History [...] (FL, RH, SH) (09/08/2008 6:48 PM CDT) [facility] Method Time Signature Amphetamine Qual [...] with platelets differential (09/08/2008 6:40 PM CDT) [facility] gist Method Time Signature MCV [...] Time MRSA-Contact IsolationComment: 0 04/26/2021 11:03 AM TERMITE EXTERMINATOR Infection erroneous documented as of this encounter
--- OUTSIDE RECORDS SUMMARY | 2022-04-01 12:39 | XMS_ITS | Encounter Summary ---
:1960 Author Organization [place] Address [address] [place] [address] Care Team Providers Name Role Phone Unavailable Primary Care Provider Unavailable Encounter Details Date Type Department Care Team Description 07/18/2008 Historic Results [facility] Yrn Voss, [facility] [address] [place], [place] [address] [id number] [address] [place] [address] (Wo rk) Social History Tobacco Use Types [...] MRSA-Contact IsolationComment: 0 04/26/2021 11:03 AM GRINDER OPERATOR AUTOMATIC Infection erroneous documented as of this encounter
--- OUTSIDE RECORDS SUMMARY | 2022-04-01 12:39 | XMS_ITS | Encounter Summary ---
:1960 Author Organization [place] Address [facility] [place] [address] Care Team Providers Name Role Phone Unavailable Primary Care Provider Unavailable Encounter Details Date Type Department Care Team Description 07/16/2008 Results Only [place] [facility] Ruben Anderson MD [address] [facility] [address] [place], [place] [address] [address] [place] [address] [phone] (Wo rk) Social History Tobacco Use Types [...] procedure are i n the results section. [facility] ECHO HEART Routine 07/16/2008 1:32 PM Results [...] of the neck were obtained using 2-dimensional [id number]-kr-[id number] before cont rast and three dimensional [id number]-[id number] after the uneventful admi nistration of gadolinium [...] ??eval high gr ottoniel stenosis, TECHNIQUE: ??3D nulh-pz-fdhnth MR angiog herve of the head without contrast. COMPARISON: None. FINDINGS: The visualized portions of the distal internal carotid and vertebral arteries, the basilar artery, [place], and the proximal anterior, middle [...] XTHORACIC,COMPLETE, W/O DOPPLER (07/16/2008 1:32 PM CDT) [facility] Method Time Signature XCELERA RADIOLOGY Interpretation [...] MRSA-Contact IsolationComment: 0 04/26/2021 11:03 AM FUR FLOOR WORKER Infection erroneous documented as of this encounter
--- OUTSIDE RECORDS SUMMARY | 2022-04-01 12:39 | XMS_ITS | Encounter Summary ---
:1960 Author Organization [place] Address [address] [place] [address] Care Team Providers Name Role Phone Unavailable [...] RESULTS Atrial Rate 111 BPM RADIOLOGY RESULTS [place] Interval 158 ms RADIOLOGY RESULTS QRS Duration 102 ms RADIOLOGY RESULTS QT 344 ms RADIOLOGY RESULTS QTc 467 ms RADIOLOGY RESULTS P [place] 55 degrees RADIOLOGY RESULTS R AXIS -7 degrees RADIOLOGY RESULTS T [place] 56 degrees RADIOLOGY RESULTS Interpretation AGE AND [...] Time MRSA-Contact IsolationComment: 0 04/26/2021 11:03 AM SHIELD CLEANER Infection erroneous documented as of this encounter
--- OUTSIDE RECORDS SUMMARY | 2022-04-01 12:39 | XMS_ITS | Encounter Summary ---
:1960 Author Organization [place] Address [address] [place] [address] Care Team Providers Name Role Phone Unavailable Primary Care Provider Unavailable Encounter Details Date Type Department Care Team Description 07/19/2008 Historic Results [facility] Yrn Voss, [facility] [address] [place], [place] [address] [id number] [address] [place] [address] (Wo rk) Social History Tobacco Use Types [...] Time MRSA-Contact IsolationComment: 0 04/26/2021 11:03 AM VASCULAR ULTRASOUND TECHNOLOGIST Infection erroneous documented as of this encounter
--- OUTSIDE RECORDS SUMMARY | 2022-04-01 12:39 | XMS_ITS | Encounter Summary ---
:1960 Author Organization [place] Address [address] [place] [address] Care Team Providers Name Role Phone Unavailable Primary Care Provider Unavailable Encounter Details Date Type Department Care Team Description 09/08/2008 Emergency room [facility] [place] Results EMERGENCY PHYSIC CARMEN MCKOY [address] [place], [place] [address] (Wo rk) Social History [...] He was seen by a chemical dependency dev ops engineer, he was felt to be a vulnerable [...] ROSHNI#[id number] Name: ELIJAH BROWN MRN: [id number] Account: [id number] : 1960 Visit Date: 09/08/2008 Document: [id number] documented in this encounter Plan of Treatment Not on filedocumented as of this encounter Visit Diagnoses Not on filedocumented in this encounter Additional Health Concerns Infection Onset Date Last Indicated Resolved Time MRSA-Contact IsolationComment: 0 04/26/2021 11:03 AM SWORD SWALLOWER Infection erroneous documented as of this encounter
--- OUTSIDE RECORDS SUMMARY | 2022-04-01 12:39 | XMS_ITS | Encounter Summary ---
:1960 Author Organization [place] Address [address] [place] [address] Care Team Providers Name Role Phone Unavailable Primary Care Provider Unavailable Encounter Details Date Type Department Care Team Description 03/13/2009 Admission H&P M [facility] Kaiden Weaver (Antique Furniture Restorer) [facility] MD Ranjit Results [address] [place] [address] (Wo rk) Social History Tobacco Use Types Packs/Day Years Used Date Smoking Tobacco: Never Alcohol Use Standard Drinks/Week Comments Yes 0 (1 standard drink = 0.6 oz pure alcoho l) socially approx 5 drinks/wk Sex Assigned at Date Recorded Not on file documented as of this encounter Progress Notes Kaiden Weaver - 03/14/2009 7:20 AM GREEN BUILDING MATERIALS DESIGNER FINAL CHIEF COMPLAINT: Generalized weakness. HISTORY OF [...] requested and he was evaluated by a barrel endshake adjuster. The patient was started on IV fluid [...] oxygen saturation 99% on assisted control. HEENT: [place] conjunctivae, nonicteric sclerae. Atraumatic, normocephalic. NECK: Supple. [...] ROSHNI#[id number] Name: ELIJAH BROWN MRN: [id number] Account: [id number] : 1960 Admitted: [id number] Document: [id number] N BUILDING MATERIALS DESIGNER documented in this encounter Plan of Treatment Not on filedocumented as of this encounter Visit Diagnoses Not on filedocumented in this encounter Additional Health Concerns Infection Onset Date Last Indicated Resolved Time MRSA-Contact IsolationComment: 0 04/26/2021 11:03 AM GREEN BUILDING MATERIALS DESIGNER Infection erroneous documented as of this encounter
--- OUTSIDE RECORDS SUMMARY | 2022-04-01 12:39 | XMS_ITS | Encounter Summary ---
:1960 Author Organization [place] Address [address] [place] [address] Care Team Providers Name Role Phone Unavailable Primary Care Provider Unavailable Encounter Details Date Type Department Care Team Description 03/14/2009 Results Only [facility] Haroldo Sandoval MD Hospital Results EMERGENCY [facility]YSI CECILIO MCKOY [address] [place], [place] [id number] (Wo rk) Social History Tobacco Use Types [...] 03/14/2009 1:37 AM Resu lts for this MOTOR VEHICLES SUPERVISOR procedure are i n the results section. HC CHEST ONE VIEW Routine 03/14/2009 1:00 AM Resu lts for this MOTOR VEHICLES SUPERVISOR procedure are i n the results section. documented in this encounter Results CHEST X-RAY 1 VW (03/14/2009 1:37 AM MOTOR VEHICLES SUPERVISOR) Anatomical Region Laterality Modality Other Specimen (Source) Anatomical Collection Method Collection Time Re ceived Time Location / / Volume Laterality 03/14/2009 1:37 AM MOTOR VEHICLES SUPERVISOR Impressions 03/14/2009 9:51 PM MOTOR VEHICLES SUPERVISOR CHEST, ONE VIEW PORTABLE ??Mar 14, 2009, [...] CHEST X-RAY 1 VW (03/14/2009 1:00 AM MOTOR VEHICLES SUPERVISOR) Anatomical Region Laterality Modality Other Specimen (Source) Anatomical Collection Method Collection Time Re ceived Time Location / / Volume Laterality 03/14/2009 1:00 AM MOTOR VEHICLES SUPERVISOR Impressions 03/14/2009 9:51 PM MOTOR VEHICLES SUPERVISOR CHEST, ONE VIEW PORTABLE ??Mar 14, 2009, [...] Time MRSA-Contact IsolationComment: 0 04/26/2021 11:03 AM MOTOR VEHICLES SUPERVISOR Infection erroneous documented as of this encounter
--- OUTSIDE RECORDS SUMMARY | 2022-04-01 12:39 | XMS_ITS | Encounter Summary ---
:1960 Author Organization [place] Address [address] [place] [address] Care Team Providers Name Role Phone Unavailable [...] as of this encounter Progress Notes Interface, Bead Wire Insulator - 07/11/2010 6:10 AM CDT SW: Met [...] if he chooses to do so. x [phone] [Signature] Author: Mai López (FUR NAILER) [Signed 09:41] Interface, Bead Wire Insulator - 07/11/2010 6:08 AM CDT BRIEF NUTRITION [...] MRSA-Contact IsolationComment: 0 04/26/2021 11:03 AM CARE PROCESS MANAGER Infection erroneous documented as of this encounter
--- OUTSIDE RECORDS SUMMARY | 2022-04-01 12:39 | XMS_ITS | Encounter Summary ---
:1960 Author Organization [place] Address [address] [place] [address] Care Team Providers Name Role Phone Unavailable Primary Care Provider Unavailable Reason for Visit Reason Comments Arthritis seen in er 09/15/08 for gout, improving Encounter Details Date Type Department Care Team Description 09/18/2008 Office Visit [facility] Julius Welsh MD Gout (Primary Dx); Clinic [place] [address] [address] [place] [address] [place] [address] [id number] (Wo rk) Social History Tobacco Use Types [...] 3 days after visit to ER at [facility] for first time dx of gout. He [...] Nursing Notes 09/18/2008 8:30 AM CDT >> SAMIM AGUILAR [facility] September 18, 2008 8:32 AM Patient presents with: Arthritis - seen in er 09/15/08 for gout, improving Initial BP 122/78 Ht 5' 8 (1.727 m) Wt 190 lb (86.183 kg) Body mass index is 28.89 kg/(m^2).. BP completed using cuff size large - [place]. Sammi Aguilar, Tourist Guide documented in this encounter Plan of Treatment Not on filedocumented as of this encounter Visit Diagnoses Diagnosis Gout - Primary Gout, unspecified ANEMIA NOS Anemia, unspecified documented in this encounter Additional Health Concerns Infection Onset Date Last Indicated Resolved Time MRSA-Contact IsolationComment: 0 04/26/2021 11:03 AM RANGE MECHANIC Infection erroneous documented as of this encounter
--- OUTSIDE RECORDS SUMMARY | 2022-04-01 12:39 | XMS_ITS | Encounter Summary ---
:1960 Author Organization [place] Address [address] [place] [address] Care Team Providers Name Role Phone Unavailable Primary Care Provider Unavailable Encounter Details Date Type Department Care Team Description 07/16/2008 Historic Results [facility] Nany Austin [place] MD Fina [address] [place], [place] CLINIC [address] [phone] [place], [place] [address] (Wo rk) Social History [...] (07/16/2008 6:55 AM CDT) Analysis Performed At [facility] Time Signature MCV 97 78 - [...] (07/16/2008 6:55 AM CDT) Analysis Performed At [facility] Time Signature Sodium 141 133 - [...] BLOOD ORDERABLES Performing Organization Address City/[facility] Phon e Number MISYS Blood smear morphology (07/16/2008 6:55 AM CDT) [facility] Sopogy Method Time Signature Blood See MISYS Morphology Pathologist Smear 's Report Specimen (Source) Anatomical Collection Method Collection Time Re ceived Time Location / / Volume Laterality 07/16/2008 6:55 AM 9 CDT Amna Austin MD LAB - BLOOD ORDERABLES Performing Organization Address [facility] Phon e Number MISYS (ABNORMAL) Differential (07/16/2008 6:55 AM CDT) [facility] Sopogy Method Time Signature % Neutrophils 61 40 [...] LAB - BLOOD ORDERABLES Performing Organization Address [facility] Phon e Number MISYS (ABNORMAL) Reticulocyte count [...] Component Value Ref Test Analysis Performed At [facility] gist Range Method Time Signature Copath CASE: [id number] ^ COPATH Report Patient Name: ELIJAH BROWN MR#: [id number] Specimen #: [id number] Collected: 07/16/2008 Received: 07/16/2008 Reported: 07/16/2008 11:00 [...] equired. JOSE RAMONK/kalina 07-16-08 TESTING LAB LOCATION: [facility] [address] [place] ??[id number] COLLECTION SITE: Client: ??[facility] Location: ??MS3 (R) Specimen (Source) Anatomical Collection [...] Time MRSA-Contact IsolationComment: 0 04/26/2021 11:03 AM POLE LIFT OPERATOR Infection erroneous documented as of this encounter
--- OUTSIDE RECORDS SUMMARY | 2022-04-01 12:39 | XMS_ITS | Encounter Summary ---
:1960 Author Organization [place] Address Count includes the [facility] [place] [address] Care Team Providers Name Role Phone No Ref-Primary, Physician Primary Care Provider [phone] Juan Farias MD Unavailable Edilia Trejo APRN MEN'S CUSTOM HAIR PIECE CONSULTANT Unavailable Glendy vailable Juan Farias MD Unavailable Denise Connell-C Unavailable [phone] Edilia Trejo APRN MEN'S CUSTOM HAIR PIECE CONSULTANT Unavailable Glendy vailable Denise Connell-C Unavailable [phone] Juan Farias MD Primary Care Provider Dana Barry PA-C Unavailable [phone] Encounter Details Date Type Department Care Team Description 09/19/2008 Office Visit-[facility] Heart Juan Farias MD [address] [place] [address] [place] [address] [phone] Social History Tobacco Use Types Packs/Day Years [...] old Referring Physician: JEROME MORENO Referring Clinic: [facility] CURRENT DIAGNOSES 1. - Hypercholesterolemia, 272.0 2. 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; Sexual Activity - sexually active; Residence - lives with female partner; Place of - [place]; Hours Worked - 40 hours per week [...] Time MRSA-Contact IsolationComment: 0 04/26/2021 11:03 AM MERCHANDISING STOCK ASSOCIATE Infection erroneous MRSA 05/13/2021 05/13/2021 Rule Out C-difficile 12/06/2021 12/06/2021 12/07/2021 8:46 AM CDT documented as of this encounter Care Teams Vice President Pharmacy Relationship Specialty Start Date End Date No Ref-Primary, PCP - General 07/03/14 12/03/21 Physician Juan Farias MD PCP - General Cardiovascular Disease 12/04/21 [address] [place] [address] Juan Farias MD Assigned Heart and 02/14/20 10/03/20 [address] Vascular Provider [address] [place] [address] Maya, Assigned Heart and 10/04/20 Edilia Chapman APRN Vascular Provider MEN'S CUSTOM HAIR PIECE CONSULTANT NO INFO AVAILABLE 02/10/2022 Juan Farias MD Assigned Heart and 04/04/21 07/31/21 [address] Vascular Provider [address] [place] [address] Denise Connell Physician Blintze Roller Cardiovascular Disease 08/12/21 MARIETTA Watson [address] [place] [id number] Maya, Assigned Heart and 08/01/21 2 Edilia Chapman APRN Vascular Provider MEN'S CUSTOM HAIR PIECE CONSULTANT NO INFO AVAILABLE 02/10/2022 Denise Connell Assigned Heart and 08/22/21 01/14/22 MARIETTA Watson Vascular Provider [address] [place] [id number] Dana Barry Assigned Heart and 01/15/22 MARIETTA Teague Vascular Provider [address] [place] [id number] documented as of this encounter
--- OUTSIDE RECORDS SUMMARY | 2022-04-01 12:39 | XMS_ITS | Encounter Summary ---
:1960 Author Organization [place] Address [address] [place] [address] Care Team Providers Name Role Phone Unavailable [...] 03/13/2009 9:41 PM Results f or this SUPERVISOR BUILDING MAINTENANCE procedure are i n the results section . documented in this encounter Results EKG 12 LEAD (03/13/2009 9:41 PM SUPERVISOR BUILDING MAINTENANCE) Component Value Ref Range Test Analysis Performed Pathologis t Method Time At Signature Ventricular Rate 122 BPM RADIOLOGY RESULTS Atrial Rate 122 BPM RADIOLOGY RESULTS LA Interval 134 ms RADIOLOGY RESULTS QRS Duration 96 ms RADIOLOGY RESULTS QT 290 ms RADIOLOGY RESULTS QTc 413 ms RADIOLOGY RESULTS P [place] 43 degrees RADIOLOGY RESULTS R AXIS 1 degrees RADIOLOGY RESULTS T [place] -2 degrees RADIOLOGY RESULTS Interpretation AGE AND GENDER SPECIFIC ECG ANALYSIS RADIOLOGY ECG Sinus tachycardia RESULTS Otherwise normal ECG Unconfirmed report - interpretation of this ECG is compute r generated - see medical record for final interpretation Specimen Anatomical Collection Method Collection Time Receive d Time (Source) Location / / Volume Laterality 03/13/2009 9:41 PM 9 SUPERVISOR BUILDING MAINTENANCE 10:45 AM SUPERVISOR BUILDING MAINTENANCE Transcripton Interface ECG ORDERABLES Performing Organization Address City/State/ZIP Code Phon e Number RADIOLOGY RESULTS documented in this encounter Visit Diagnoses Not on filedocumented in this encounter Additional Health Concerns Infection Onset Date Last Indicated Resolved Time MRSA-Contact IsolationComment: 0 04/26/2021 11:03 AM SUPERVISOR BUILDING MAINTENANCE Infection erroneous documented as of this encounter
--- OUTSIDE RECORDS SUMMARY | 2022-04-01 12:39 | XMS_ITS | Encounter Summary ---
:1960 Author Organization [place] Address [address] [place] [address] Care Team Providers Name Role Phone Unavailable Primary Care Provider Unavailable Encounter Details Date Type Department Care Team Description 07/16/2008 Orders Only [facility] Amna Austin DIAGNOS IS NOT YET Clinic [place] MD Fina DEFINED (Primary Dx) [address] [place], [place] CLINIC [address] [phone] [place], [place] [address] Social History Tobacco Use [...] REPORT (07/16/2008) Impressions MISYS - 07/16/2008 CASE: [id number] Patient Name: ELIJAH BROWN MR#: [id number] Specimen #: [id number] Collected: 07/16/2008 Received: 07/16/2008 Reported: 07/16/2008 11:00 [...] seen. There is relative monocytosis, but absol [place] numbers are within normal limits. ??There is [...] is required. KARLEE/kalina /07-16-08 TESTING LAB LOCATION: [address] ??[phone] COLLECTION SITE: Client: ??[facility] Location: ??MS3 (R) Electronically filed by Joan Jessica ??07/17/2008 ??9:06 AM Amna Austin MD LABORATORY Performing Organization Address City/State/ZIP Code Phon e Number MISYS documented in this encounter Visit Diagnoses Diagnosis DIAGNOSIS NOT YET DEFINED - Primary documented in this encounter Additional Health Concerns Infection Onset Date Last Indicated Resolved Time MRSA-Contact IsolationComment: 0 04/26/2021 11:03 AM RADIO MESSAGE ROUTER Infection erroneous documented as of this encounter
--- OUTSIDE RECORDS SUMMARY | 2022-04-01 12:39 | XMS_ITS | Encounter Summary ---
:1960 Author Organization [place] Address [address] [place] [address] Care Team Providers Name Role Phone Unavailable Primary Care Provider Unavailable Encounter Details Date Type Department Care Team Description 09/15/2008 Results Only [facility] Adriane, Andrea de luna, Hospital [place] [address] Social History Tobacco Use Types Packs/Day Years Used Date Smoking Tobacco: Never Alcohol Use Standard Drinks/Week Comments Yes 0 (1 standard drink = 0.6 oz pure alcoho l) socially approx 5 drinks/wk Sex Assigned at Date Recorded Not on file documented as of this encounter Plan of Treatment Not on filedocumented as of this encounter Procedures Procedure Name Priority Date/Time Associated Diagnosis Comme [facility] RT X-RAY FOOT Routine 09/15/2008 4:48 PM [...] Time MRSA-Contact IsolationComment: 0 04/26/2021 11:03 AM SECTION CUTTER Infection erroneous documented as of this encounter
--- OUTSIDE RECORDS SUMMARY | 2022-04-01 12:39 | XMS_ITS | Encounter Summary ---
:1960 Author Organization [place] Address [address] [place] [address] Care Team Providers Name Role Phone Unavailable Primary Care Provider Unavailable Encounter Details Date Type Department Care Team Description 07/18/2008 Results Only [facility] Denys Bangura MD [facility] Results [facility] [address] [facility] [address] [place], [place] [address] (Wo rk) Social History [...] Ruben Willis #: 09 - 84 LOCATION: [address] TYPE: routine CONDITION OF PATIENT: normal/tense. [...] recording with photic stimulation, or hyperventilation. The literacy education professor is recording a regular, approximately 90 beat per minute heart rate. IMPRESSION: Normal awake EEG. Electronically signed on 08/22/2008 09:44 by DENYS SAENZ MD MT: lsd Name: ELIJAH BROWN Account: [id number] : 1960 Procedure Date: 07/18/2008 Document: [id number] cc: Ruben Austin MD documented in this [...] Ruben MondragonEG #: 09 - 84 LOCATION: [address] TYPE: routine CONDITION OF PATIENT: normal/tense. [...] recording with photic stimulation, or hyperventilation. The literacy education professor is recording a regular, appr oximately 90 beat per minute heart rate. IMPRESSION: Normal awake EEG. Electronically signed on 08/22/2008 09: 44 by DENYS SAENZ MD MT: lsd Name: ELIJAH BROWN MRN: [id number] Account: [id number] : 1960 Procedure Date: 009 Document: [id number] cc: Ruben Austin MD Denys Bangura MD PROCEDURES documented in this encounter Visit Diagnoses Not on filedocumented in this encounter Additional Health Concerns Infection Onset Date Last Indicated Resolved Time MRSA-Contact IsolationComment: 0 04/26/2021 11:03 AM BOOM MAN Infection erroneous documented as of this encounter
--- OUTSIDE RECORDS SUMMARY | 2022-04-01 12:39 | XMS_ITS | Encounter Summary ---
:1960 Author Organization [place] Address [address] [facility] [place] [address] Care Team Providers Name Role Phone Unavailable Primary Care Provider Unavailable Encounter Details Date Type Department Care Team Description 03/13/2009 Consultation [facility] Jamaal Tyler, Hospital Results [facility] CONSULT ANTS [address] [facility] [address] [place] [address] (Wo rk) Social History Tobacco Use Types Packs/Day Years Used Date Smoking Tobacco: Never Alcohol Use Standard Drinks/Week Comments Yes 0 (1 standard drink = 0.6 oz pure alcoho l) socially approx 5 drinks/wk Sex Assigned at Date Recorded Not on file documented as of this encounter Progress Notes Jamaal [place] - 03/30/2009 8:06 AM MANAGER PLANNING FINAL RENAL CONSULTATION: Requesting physician: Hospitalist Service [...] MD MT: ROSHNI#[id number] Name: ELIJAH BROWN Account: [id number] : 1960 Consult Date: 03/13/2009 Document: [id number] GER PLANNING documented in this encounter Plan of Treatment Not on filedocumented as of this encounter Visit Diagnoses Not on filedocumented in this encounter Additional Health Concerns Infection Onset Date Last Indicated Resolved Time MRSA-Contact IsolationComment: 0 04/26/2021 11:03 AM MANAGER PLANNING Infection erroneous documented as of this encounter
--- OUTSIDE RECORDS SUMMARY | 2022-04-01 12:39 | XMS_ITS | Encounter Summary ---
:1960 Author Organization [place] Address [address] [place] [address] Care Team Providers Name Role Phone Unavailable Primary Care Provider Unavailable Encounter Details Date Type Department Care Team Description 03/13/2009 Historic Results INTERFACED REPORT [facility] Social History Tobacco Use Types Packs/Day Years [...] STAT 03/13/2009 11:03 PM Results for this SALT CUTTER procedure are i n the results section. N TERMINAL PRO BNP STAT 03/13/2009 11:03 PM Re sults for this OUTPATIENT SALT CUTTER procedure are i n the results section. MYOGLOBIN Routine 03/13/2009 11:03 PM Results for this SALT CUTTER procedure are i n the results section. MAGNESIUM STAT 03/13/2009 11:03 PM Results for this SALT CUTTER procedure are i n the results section. HEPATIC FUNCTION STAT 03/13/2009 11:03 PM Resu lts for this PANEL SALT CUTTER procedure are i n the results section. CK TOTAL Routine 03/13/2009 11:03 PM Results for this SALT CUTTER procedure are i n the results section. ETHYL ALCOHOL LEVEL STAT 03/13/2009 11:03 PM R esults for this SALT CUTTER procedure are i n the results section. BASIC METABOLIC STAT 03/13/2009 11:03 PM Resul ts for this PANEL SALT CUTTER procedure are i n the results section. TROPONIN I STAT 03/13/2009 8:58 PM Results f or this SALT CUTTER procedure are i n the results section. NT PROBNP INPATIENT Routine 03/13/2009 8:58 PM Re sults for this SALT CUTTER procedure are i n the results section. CBC WITH PLATELETS STAT 03/13/2009 8:58 PM Res ults for this SALT CUTTER procedure are i n the results section. documented in this encounter Results (ABNORMAL) Hepatic panel (03/13/2009 11:03 PM SALT CUTTER) Analysis Performed At Patho logist Time [...] / Volume Laterality 03/13/2009 11:03 03/13/2009 PM SALT CUTTER 11:09 PM SALT CUTTER Clinic [facility] LAB - BLOOD ORDERABLES Performing Organization Address City/State/ZIP Code Phon e Number MISYS (ABNORMAL) Basic metabolic panel (03/13/2009 11:03 PM SALT CUTTER) P athologist Signature Sodium 127 (L) 133 [...] to DIGNA ERB @ 2352 ON BY [facility] Creatinine 18.05 (H) 0.66 - 1.25 mg/dL MISYS Comment: New IDMS-traceable calibration ??rosalva oliver 08/23/07 Results confirmed by repeat test Specimen grossly lipemic Called to DIGNA VIVIANA @ 1152 ON [id number] BY [facility] GFR Estimate Not Calculated >60 mL/min/1.7m2 MISYS GFR Estimate If Black Not Calculated >60 mL/min/1.7m2 MISYS Calcium 8.4 (L) 8.5 - 10.4 mg/dL MISYS Anion Gap 39 (H) 6 - 17 mmol/L MISYS Specimen Anatomical Collection Method Collection Time Receive d Time (Source) Location / / Volume Laterality 03/13/2009 11:03 03/13/2009 PM SALT CUTTER 11:09 PM SALT CUTTER [facility] LAB - BLOOD ORDERABLES Performing Organization Address City/[facility] Phon e Number MISYS Alcohol ethyl (03/13/2009 11:03 PM SALT CUTTER) athologist Signature Ethanol g/dL <0.01 0.01 g/dL MISYS Specimen Anatomical Collection Method Collection Time Receive d Time (Source) Location / / Volume Laterality 03/13/2009 11:03 03/13/2009 PM SALT CUTTER 11:09 PM SALT CUTTER [facility] LAB - BLOOD ORDERABLES Performing Organization Address [facility] Code Phon e Number MISYS (ABNORMAL) Magnesium (03/13/2009 11:03 PM SALT CUTTER) P athologist Signature Magnesium 1.4 (L) 1.6 - 2.3 MISYS mg/dL Specimen Anatomical Collection Method Collection Time Receive d Time (Source) Location / / Volume Laterality 03/13/2009 11:03 03/13/2009 PM SALT CUTTER 11:09 PM SALT CUTTER [facility] LAB - BLOOD ORDERABLES Performing Organization Address City/[facility] Phon e Number MISYS (ABNORMAL) N terminal pro BNP outpatient (03/13/2009 11:03 PM SALT CUTTER) P athologist Signature N-Terminal Pro 5480 (H) [...] / Volume Laterality 03/13/2009 11:03 03/13/2009 PM SALT CUTTER 11:09 PM SALT CUTTER Authorizing Provider Result [facility] LAB - BLOOD ORDERABLES Performing Organization Address City/[facility] Phon e Number MISYS (ABNORMAL) Troponin I (03/13/2009 11:03 PM SALT CUTTER) Analysis Performed At Patho logist Time Signature Troponin I ES 0.189 (HH) 0.000 - MISYS 0.034 ug/L Comment: Called to DIGNA MICHELLE @ 9443 ON [id number] BY [facility] Specimen Anatomical Collection Method Collection Time Receive d Time (Source) Location / / Volume Laterality 03/13/2009 11:03 03/13/2009 PM SALT CUTTER 11:09 PM SALT CUTTER Authorizing Provider Result [facility] LAB - BLOOD ORDERABLES Performing Organization Address City/[facility] Phon e Number MISYS (ABNORMAL) CK total (03/13/2009 11:03 PM SALT CUTTER) P athologist Signature CK Total 2596 (HH) 45 - 300 MISYS U/L Comment: Critical Value called to and read back jessica [email or web address],AR Specimen Anatomical Collection Method Collection Time Receive d Time (Source) Location / / Volume Laterality 03/13/2009 11:03 03/14/2009 1:47 PM SALT CUTTER AM SALT CUTTER Authorizing Provider Result [facility] LAB - BLOOD ORDERABLES Performing Organization Address City/[facility] Phon e Number MISYS (ABNORMAL) Myoglobin (03/13/2009 11:03 PM SALT CUTTER) athologist Signature Myoglobin 8032 (H) <120 ug/L MISYS Specimen Anatomical Collection Method Collection Time Receive d Time (Source) Location / / Volume Laterality 03/13/2009 11:03 03/14/2009 1:47 PM SALT CUTTER AM SALT CUTTER Authorizing Provider Result [facility] LAB - BLOOD ORDERABLES Performing Organization Address City/[facility]/ZIP Code Phon e Number MISYS (ABNORMAL) CBC with platelets (03/13/2009 8:58 PM SALT CUTTER) [facility] Signature MCV 95 78 - 100 [...] Volume Laterality 03/13/2009 8:58 PM 9 9:33 SALT CUTTER PM SALT CUTTER Haroldo Arnold MD LAB - BLOOD ORDERABLES Performing Organization Address [facility]/ZIP Code Phon e Number MISYS Troponin I (03/13/2009 8:58 PM SALT CUTTER) [facility] Method Time Signature Troponin I ES Results 0.000 - MISYS questioned - 0.034 new specimen ug/L has been requested Comment: Charge credited NOTIFIED TO DIGNA ON ERB AT 2220 CORRECTED ON 03/13 AT 2317: PREVIOUSLY R EPORTED 0.218 Critical Value called to and read back by DIGNA (ERB) ON 05.13.08 AT 2224 BY [place] Specimen Anatomical Collection Method Collection Time Receive d Time (Source) Location / / Volume Laterality 03/13/2009 8:58 PM 9 9:33 SALT CUTTER PM SALT CUTTER Haroldo Arnold MD LAB - BLOOD ORDERABLES Performing Organization Address [facility]/ZIP Code Phon e Number MISYS Nt probnp inpatient (03/13/2009 8:58 PM SALT CUTTER) [facility] Method Time Signature N-Terminal Results 0 - [...] / Volume Laterality 03/13/2009 8:58 PM 9 SALT CUTTER 10:34 PM SALT CUTTER Haroldo Arnold MD LAB - BLOOD ORDERABLES Performing Organization Address City/State/ZIP Code Phon e Number MISYS documented in this encounter Visit Diagnoses Not on filedocumented in this encounter Additional Health Concerns Infection Onset Date Last Indicated Resolved Time MRSA-Contact IsolationComment: 0 04/26/2021 11:03 AM SALT CUTTER Infection erroneous documented as of this encounter
--- OUTSIDE RECORDS SUMMARY | 2022-04-01 12:39 | XMS_ITS | Encounter Summary ---
:1960 Author Organization [place] Address [address] [place] [address] Care Team Providers Name Role Phone Unavailable Primary Care Provider Unavailable Encounter Details Date Type Department Care Team Description 09/15/2008 Historic Results INTERFACED REPORT Jace Forrest MD [place] [address] Social History Tobacco Use Types Packs/Day Years [...] with platelets differential (09/15/2008 4:18 PM CDT) [facility] Method Time Signature MCV 100 78 - [...] ORDERABLES Performing Organization Address City/[facility] Phon e Number MISYS (ABNORMAL) Comprehensive [...] ORDERABLES Performing Organization Address City/[facility] Phon e Number MISYS documented in this encounter Visit Diagnoses Not on filedocumented in this encounter Additional Health Concerns Infection Onset Date Last Indicated Resolved Time MRSA-Contact IsolationComment: 0 04/26/2021 11:03 AM QUILTING 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
--- OUTSIDE RECORDS SUMMARY | 2022-04-01 12:39 | XMS_ITS | Encounter Summary ---
:1960 Author Organization [place] Address [address] [place] [address] Care Team Providers Name Role Phone Unavailable Primary Care Provider Unavailable Encounter Details Date Type Department Care Team Description 07/17/2008 [facility] [address] [place] [address] (Wo rk) Social History Tobacco Use Types [...] Name Priority Date/Time Associated Diagnosis Comme [facility] CHEST TWO VIEWS, Routine 07/17/2008 [...] Time MRSA-Contact IsolationComment: 0 04/26/2021 11:03 AM THREE DIMENSIONAL MAP MODELER Infection erroneous documented as of this encounter
--- OUTSIDE RECORDS SUMMARY | 2022-04-01 12:39 | XMS_ITS | Encounter Summary ---
:1960 Author Organization [place] Address [address] [place] [address] Care Team Providers Name Role Phone Unavailable Primary Care Provider Unavailable Encounter Details Date Type Department Care Team Description 03/13/[address] [facility] Haroldo Sandoval MD Hospital Results [facility] [address] [place], [place] [address] (Wo rk) Social History Tobacco Use Types [...] 10:27 PM R esults for this FRONT/LAT GYNECOLOGIST procedure are i n the results section. documented in this encounter Results CHEST X-RAY 2 VW (03/13/2009 10:27 PM GYNECOLOGIST) Anatomical Region Laterality Modality Other Specimen (Source) Anatomical Collection Method Collection Time Re ceived Time Location / / Volume Laterality 03/13/2009 10:27 PM GYNECOLOGIST Impressions 03/14/2009 2:27 PM GYNECOLOGIST CHEST, TWO VIEWS ??03/13/2009, 10:27 PM INDICATION: [...] Time MRSA-Contact IsolationComment: 0 04/26/2021 11:03 AM GYNECOLOGIST Infection erroneous documented as of this encounter
--- OUTSIDE RECORDS SUMMARY | 2022-04-01 12:39 | XMS_ITS | Encounter Summary ---
:1960 Author Organization [place] Address [address] [place] [address] Care Team Providers Name Role Phone Unavailable [...] as of this encounter Progress Notes Interface, Manager Intel - 07/11/2010 5:57 AM CDT Patient Status - Physical status Stable (s/s of potential complications absent or manageable) - Psychosocial status Stable Discharge Planning - Discharge From: [facility] - Patient Care Unit: [place] 3 - [...] MRSA-Contact IsolationComment: 0 04/26/2021 11:03 AM NETWORK OPERATIONS SPECIALIST Infection erroneous documented as of this encounter
--- OUTSIDE RECORDS SUMMARY | 2022-04-01 12:39 | XMS_ITS | Encounter Summary ---
:1960 Author Organization [place] Address [address] [place] [address] Care Team Providers Name Role Phone Unavailable Primary Care Provider Unavailable Encounter Details Date Type Department Care Team Description 07/19/2008 Discharge Summary [facility] Kendall Garcia (Child Psychologist) [facility] MD Raghu Results [facility] [address] [facility] [address] [place], [place] [address] Social History Tobacco Use [...] MD MT: [id number] Name: ELIJAH BROWN Account: [id number] : 1960 Admit Date: Discharge Date: 07/19/2008 Document: [id number] documented in this encounter Plan of Treatment Not on filedocumented as of this encounter Visit Diagnoses Not on filedocumented in this encounter Additional Health Concerns Infection Onset Date Last Indicated Resolved Time MRSA-Contact IsolationComment: 0 04/26/2021 11:03 AM OUTSIDE COLLECTOR Infection erroneous documented as of this encounter
--- OUTSIDE RECORDS SUMMARY | 2022-04-01 12:39 | XMS_ITS | Encounter Summary ---
:1960 Author Organization [place] Address [address] [place] [address] Care Team Providers Name Role Phone No Ref-Primary, Physician Primary Care Provider Encounter Details Date Type Department Care Team Description 07/16/2008 Historic Results [facility] Heart Unknown, [facility] ider [address] [place] [address] Social History Tobacco Use Types [...] Time MRSA-Contact IsolationComment: 0 04/26/2021 11:03 AM SHIPYARD SUPERVISOR Infection erroneous documented as of this encounter Care Teams Living Advisor Relationship Specialty Start Date End Date No Ref-Primary, Physician PCP - General 07/03/14 12/03/21 documented as of this encounter
--- OUTSIDE RECORDS SUMMARY | 2022-04-01 12:39 | XMS_ITS | Encounter Summary ---
:1960 Author Organization [place] Address [address] [place] [address] Care Team Providers Name Role Phone Unavailable Primary Care Provider Unavailable Encounter Details Date Type Department Care Team Description 09/19/2008 Orders Only [facility] Tristan Egan SIS NOT YET Clinic [place] MD [place] [address] [address] [phone] Social History Tobacco Use Types Packs/Day Years [...] . documented in this encounter Results LDL-CHOLESTEROL [98674.001] (09/19/2008) P athologist Signature LDL Cholesterol 57 mg/dL MISYS Calculated Tristan Egan MD LABORATORY Performing Organization Address City/State/ZIP Code Phon e Number MISYS HDL CHOLESTEROL [59138.000] (09/19/2008) P athologist Signature HDL Cholesterol 43 mg/dL MISYS Tristan Eagn MD LABORATORY Performing Organization Address [facility] Code Phon e Number MISYS TRIGLYCERIDES [15721.000] (09/19/2008) P athologist Signature Triglycerides 131 mg/dL MISYS Tristan Egan MD LABORATORY Performing Organization Address [facility] Phon e Number MISYS CHOLESTEROL [40837.000] (09/19/2008) P athologist Signature Cholesterol 126 115 - 199 MISYS mg/dL Tristan Egan MD LABORATORY Performing Organization Address [facility] Phon e Number MISYS documented in this encounter Visit Diagnoses Diagnosis DIAGNOSIS NOT YET DEFINED documented in this encounter Additional Health Concerns Infection Onset Date Last Indicated Resolved Time MRSA-Contact IsolationComment: 0 04/26/2021 11:03 AM MANAGER CARDIAC CATH Infection erroneous documented as of this encounter
--- OUTSIDE RECORDS SUMMARY | 2022-04-01 12:39 | XMS_ITS | Encounter Summary ---
:1960 Author Organization [place] Address [address] [place] [address] Care Team Providers Name Role Phone Unavailable Primary Care Provider Unavailable Encounter Details Date Type Department Care Team Description 09/15/2008 Emergency room [facility] Results MD Augustin [place] [address] Social History Tobacco Use Types Packs/Day Years Used Date Smoking Tobacco: Never Alcohol Use Standard Drinks/Week Comments Yes 0 (1 standard drink = 0.6 oz pure alcoho l) socially approx 5 drinks/wk Sex Assigned at Date Recorded Not on file documented as of this encounter Progress Notes Interface, Parts Counter Sales Person - 09/27/2008 2:16 PM CDT FINAL CHIEF [...] SOCIAL HISTORY: 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 He does have ahistory [...] ROSHNI#[id number] Name: ELIJAH AMADOR MRN: [id number] Account: [id number] : 1960 Visit Date: 09/15/2008 Document: [id number] cc: Julius Welsh MD documented in this encounter Plan of Treatment Not on filedocumented as of this encounter Visit Diagnoses Not on filedocumented in this encounter Additional Health Concerns Infection Onset Date Last Indicated Resolved Time MRSA-Contact IsolationComment: 0 04/26/2021 11:03 AM REGRADER Infection erroneous documented as of this encounter
--- OUTSIDE RECORDS SUMMARY | 2022-04-01 12:39 | XMS_ITS | Encounter Summary ---
:1960 Author Organization [place] Address [address] [place] [address] Care Team Providers Name Role Phone Unavailable Primary Care Provider Unavailable Encounter Details Date Type Department Care Team Description 07/17/2008 Historic Results [facility] Yrn Voss, [facility] [address] [place], [place] [address] [address] [address] [place] [address] (Wo rk) Social History Tobacco Use Types [...] Component Value Ref Test Analysis Performed At [facility] Agilyx Range Method Time Signature Source Unspecified MISYS Urine Color Urine Yellow MISYS Appearance Urine Clear MISYS Glucose Urine Negative NEG MISYS mg/dL Bilirubin Urine Negative NEG MISYS Ketones Urine Negative NEG MISYS mg/dL Specific [place] 1.014 1.003 - MISYS Urine 1.035 Blood [...] LAB - URINE ORDERABLES Performing Organization Address City/[facility]/ZIP Code Phon e Number MISYS Urine culture (07/17/2008 12:45 PM CDT) [facility] gist Method Time Signature Specimen Unspecified MISYS [...] - BLOOD ORDERABLES Performing Organization Address City/[facility]/ZIP Code Phon e Number MISYS Alcohol ethyl (07/17/2008 7:05 AM CDT) P athologist Signature Ethanol g/dL <0.01 0.01 g/dL MISYS Specimen (Source) Anatomical Collection Method Collection Time Re ceived Time Location / / Volume Laterality 07/17/2008 7:05 AM 9 CDT Gila Voss MD LAB - BLOOD ORDERABLES Performing Organization Address [facility] Phon e Number MISYS (ABNORMAL) Magnesium (07/17/2008 7:05 AM CDT) P athologist Signature Magnesium 1.2 (L) 1.6 - 2.3 MISYS mg/dL Specimen (Source) Anatomical Collection Method Collection Time Re ceived Time Location / / Volume Laterality 07/17/2008 7:05 AM 9 CDT Gila Voss MD LAB - BLOOD ORDERABLES Performing Organization Address [facility] Phon e Number MISYS documented in this encounter Visit Diagnoses Not on filedocumented in this encounter Additional Health Concerns Infection Onset Date Last Indicated Resolved Time MRSA-Contact IsolationComment: 0 04/26/2021 11:03 AM PATIENT OBSERVATION ASSISTANT Infection erroneous documented as of this encounter
--- OUTSIDE RECORDS SUMMARY | 2022-04-01 12:39 | XMS_ITS | Encounter Summary ---
:1960 Author Organization [place] Address [address] [place] [address] Care Team Providers Name Role Phone Unavailable [...] of this encounter Progress Notes Interface, Marine Geologist - 07/11/2010 5:59 AM CDT Routine EEG completed on an adult in patient. [facility] has been notified to read. [Signature] Author: Kia Le (Tech) [Signed 16:01] documented in this encounter Plan of Treatment Not on filedocumented as of this encounter Visit Diagnoses Not on filedocumented in this encounter Additional Health Concerns Infection Onset Date Last Indicated Resolved Time MRSA-Contact IsolationComment: 0 04/26/2021 11:03 AM POULTRY HUSBANDRY TEACHER Infection erroneous documented as of this encounter
--- OUTSIDE RECORDS SUMMARY | 2022-04-01 12:39 | XMS_ITS | Encounter Summary ---
:1960 Author Organization [place] Address [address] [facility] [place] [address] Care Team Providers Name Role Phone Unavailable Primary Care Provider Unavailable Encounter Details Date Type Department Care Team Description 03/14/[address] [facility] Jamaal Tyler (Rehab Therapy Manager) [facility] MD Danie Results [facility] [address] [facility] [address] [facility] [address] [place] [phone] (Wo rk) Social History Tobacco Use Types Packs/Day Years Used Date Smoking Tobacco: Never Alcohol Use Standard Drinks/Week Comments Yes 0 (1 standard drink = 0.6 oz pure alcoho l) socially approx 5 drinks/wk Sex Assigned at Date Recorded Not on file documented as of this encounter Progress Notes Jamaal Tyler - 03/30/2009 8:06 AM SPECIAL EDUCATION TUTOR FINAL INDICATIONS: Acute renal failure with hyperkalemia [...] [id number] Name: ELIJAH AMADOR MRN: [id number] Account: [id number] : 1960 Procedure Date: 03/14/2009 Document: [id number] IAL EDUCATION TUTOR documented in this encounter Plan of Treatment Not on filedocumented as of this encounter Visit Diagnoses Not on filedocumented in this encounter Additional Health Concerns Infection Onset Date Last Indicated Resolved Time MRSA-Contact IsolationComment: 0 04/26/2021 11:03 AM SPECIAL EDUCATION TUTOR Infection erroneous documented as of this encounter
--- OUTSIDE RECORDS SUMMARY | 2022-04-01 12:40 | XMS_ITS | Encounter Summary ---
:1960 Author Organization [place] Address [facility] [place] [address] Care Team Providers Name Role Phone No Ref-Primary, Physician Primary Care Provider [phone] Juan Farias MD Unavailable Edilia Trejo APRN DIAGNOSTIC TECH Unavailable Glendy vailable Juan Farias MD Unavailable Denise Connell-C Unavailable [phone] Edilia Trejo APRN DIAGNOSTIC TECH Unavailable Glendy vailable Denise Connell-C Unavailable [phone] Juan Farias MD Primary Care Provider Dana Barry PA-C Unavailable [phone] Encounter Details Date Type Department Care Team Description 05/11/2007 Office Visit-[facility] Juan Farias MD [address] [place] [address] [place] [address] [phone] Social History Tobacco Use Types Packs/Day Years Used Date Smoking Tobacco: Never Alcohol Use Standard Drinks/Week Comments Yes 0 (1 standard drink = 0.6 oz pure alcoho l) socially approx 5 drinks/wk Sex Assigned at Date Recorded Not on file documented as of this encounter Progress Notes Juan Farias MD - 05/15/2007 12:01 PM CST Progress Note Created by: Juan Farais M.D. DATE: 05/11/2007 SARAH BETH BROWN DATE OF : 1960 AGE: [age] years old Referring Physician: JEROME MORENO Referring Clinic: [facility] CURRENT DIAGNOSES 1. - Hypercholesterolemia, 272.0 2. 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 <FONT COLOR=#[id number]><FONT POINT=10>EXTREMITIES & BACK no deformities, clubbing, cyanosis, [...] Mg 1 p.o. q.d. #30 Refill <FONT COLOR=#[id number]><FONT POINT=10> IMPRESSIONS: I had the opportunity to [...] fasting lipidpanel prior to my visit. <FONT COLOR=#[id number]><FONT POINT=10> TODAYS ORDERS 1. Lipid profile/ALT 1 day 2. Return Visit 1 year 3. Lipid profile/ALT 1 year Juan Farias M.D. documented in this encounter Plan of Treatment Not on filedocumented as of this encounter Visit Diagnoses Not on filedocumented in this encounter Additional Health Concerns Infection Onset Date Last Indicated Resolved Time MRSA-Contact IsolationComment: 0 04/26/2021 11:03 AM PNEUMATIC PRESS HAND Infection erroneous MRSA 05/13/2021 05/13/2021 Rule Out C-difficile 12/06/2021 12/06/2021 12/07/2021 8:46 AM CDT documented as of this encounter Care Teams Healthcare Or Medical Relationship Specialty Start Date End Date No Ref-Primary, PCP - General 07/03/14 12/03/21 Physician Juan Farias MD PCP - General Cardiovascular Disease 12/04/21 [address] [place] [address] Juan Farias MD Assigned Heart and 02/14/20 10/03/20 [address] Vascular Provider [address] [place] [id number] Maya, Assigned Heart and 10/04/20 Edilia Chapman APRN Vascular Provider DIAGNOSTIC TECH NO INFO AVAILABLE 02/10/2022 Juan Farias MD Assigned Heart and 04/04/21 07/31/21 [address] Vascular Provider [address] [place] [id number] Denise Connell Physician Horizontal Drill Operator Cardiovascular Disease 08/12/21 MARIETTA Watson [address] [place] [id number] Maya Assigned Heart and 08/01/21 2 Edilia Chapman APRN Vascular Provider DIAGNOSTIC TECH NO INFO AVAILABLE 02/10/2022 Denise Connell Assigned Heart and 08/22/21 01/14/22 MARIETTA Watson Vascular Provider [address] [place] [id number] Dana Barry Assigned Heart and 01/15/22 MARIETTA Teague Vascular Provider [address] [place] [id number] documented as of this encounter
--- OUTSIDE RECORDS SUMMARY | 2022-04-01 12:40 | XMS_ITS | Encounter Summary ---
:1960 Author Organization [place] Address [address] [place] [address]. [place] [address] Care Team Providers Name Role Phone Unavailable Primary Care Provider Unavailable Encounter Details Date Type Department Care Team Description 07/15/2008 Consultation [facility] Flakita Walls, Hospital Results [facility] [place] [id number] (Wo rk) Social History Tobacco Use Types [...] DEPENDENCY ASSESSMENT EVALUATION COUNSELOR: CHRISTIE Ruiz. ADDRESS: [id number] [place] [address] 10/28/2006. PHONE: [phone] STATISTICS: Age: 47. Sex: Male. Marital Status: Single. REFERRAL: [facility] MS3. REASON FOR EVALUATION: An evaluation [...] is a functional vulnerable adult according to [place] statute 626.5572, subdivision 21, due to his hospitalization. IMPRESSION: AXIS I: 303.9. AXIS II: Deferred. AXIS III: Deferred. AXIS IV: Most of his friends use. Sasser V: 47. LEVEL OF CARE: 1. Intoxication [...] he do outpatient chemical dependency treatment in [place]. He is refusing treatment at this time. INITIAL PROBLEM LIST: He lacks understanding and coping skills. Chemical dependency issues. Electronically signed on 07/23/2008 16:09 by CHRISTIE RUIZ MT: [id number] Name: ELIJAH BROWN MRN: [id number] Account: [id number] : 1960 Consult Date: 07/15/2008 Document: [id number] documented in this encounter Plan of Treatment Not on filedocumented as of this encounter Visit Diagnoses Not on filedocumented in this encounter Additional Health Concerns Infection Onset Date Last Indicated Resolved Time MRSA-Contact IsolationComment: 0 04/26/2021 11:03 AM CLOTHING AND TEXTILES TEACHER Infection erroneous documented as of this encounter
--- OUTSIDE RECORDS SUMMARY | 2022-04-01 12:40 | XMS_ITS | Encounter Summary ---
:1960 Author Organization [place] Address [address] [place] [address] Care Team Providers Name Role Phone Unavailable Primary Care Provider Unavailable Reason for Visit Reason Onset Date Comments Refill Request 01/14/2008 Omeprazole Slk Encounter Details Date Type Department Care Team Description 01/14/2008 Refill [facility] Julius Welsh MD Refill Request [facility] [address] [place] [address] (Omeprazole Slk) [address] [place] [address] [phone] Social History Tobacco Use Types Packs/Day Years [...] MRSA-Contact IsolationComment: 0 04/26/2021 11:03 AM VP REVENUE CYCLE Infection erroneous documented as of this encounter
--- OUTSIDE RECORDS SUMMARY | 2022-04-01 12:40 | XMS_ITS | Encounter Summary ---
:1960 Author Organization [place] Address [address] [place] [address] Care Team Providers Name Role Phone Unavailable Primary Care Provider Unavailable Reason for Visit Reason Onset Date Comments Refill Request 11/13/2006 OMEPRAZOLE Encounter Details Date Type Department Care Team Description 11/13/2006 Refill [facility] Ref ill Request (OMEPRAZOLE) [place] [phone] Social History Tobacco Use Types Packs/Day [...] Time MRSA-Contact IsolationComment: 0 04/26/2021 11:03 AM POPCORN VENDOR Infection erroneous documented as of this encounter
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
--- OUTSIDE RECORDS SUMMARY | 2022-04-01 12:40 | XMS_ITS | Encounter Summary ---
:1960 Author Organization [place] Address [address] [place] [address] Care Team Providers Name Role Phone Unavailable [...] as of this encounter Progress Notes Interface, Photonics Engineering Technologist - 07/12/2010 2:39 PM CDT SWS D: received MD order to see regarding discharge planning. Chart reviewed, noted hx ETOH use and CD evaluation pending. Noted MD note from today anticipating out-pt CD services. SWS to continue to follow, assist as needed with services arrangemnets a based on CD evaluation. [Signature] Author:Angela Berumen (COUNTRY PRINTER APPRENTICE) [Signed 29-Sep-2006 13:11] Interface, Photonics Engineering Technologist - 07/12/2010 2:38 PM CDT Patient Status Patient Status - Physical status Stable (s/s of potential complications absent or manageable) - Psychosocial status Stable Discharge Planning - Discharge From: [facility] - Patient Care Unit: Med-Surg [...] Egan - Phone number of who patient [phone] should call: - Other Special Care Needs: Follow up with outpatient chemical dependency treatment. Follow Up Care - Physician name: Dr. Anderson ([phone]) - When to see physician: 2-3 weeks Signatures Sis Hernandez (RN) Authored: Patient Status, Discharge Planning, Discharge Information, Medications and Prescriptions, Support Services, Special Care Needs and Instructions, Follow Up Care Interface, Photonics Engineering Technologist - 07/12/2010 2:38 PM CDT SWS D: Spoke with RN who informs that CD engineering production liaison has not been here to consult with pt. Per her discussion with MD it was requested that SWS talk with pt about CD resources, out-pt services prior to his dicsharge. SWS visit with pt was brief, pt standing at the door of his room waiting to leave, I am already an hour late. SWS presented pt with the information ( [employer] CD out-pt brochure and #, community resources) and strongly encouraged his follow-up. Pt accepted information and quickly left the unit. A: With brief intervention due to pt's desire to leave, unable to fully assess additional needs, support. P: No further SWS. [Signature] Author:Angela Berumen (FLOR) [Signed 29-Sep-2006 16:11] Interface, Photonics Engineering Technologist - 07/12/2010 2:37 PM CDT Patient restless [...] attempted to contact the office of the ld teacher by both phone and pager for total of 6 attempts. donor services team leader also had the intake office try to contact the ld teacher. Patient appeared to be about to leave AMA due to the lateness or the day and the CD eval not completed yet. Dr. Egan notified and order received to give patient outpatient CD treatment resources. donor services team leader was informed and completed referral. Patient abruptly [...] Time MRSA-Contact IsolationComment: 0 04/26/2021 11:03 AM VEST TAILOR Infection erroneous documented as of this encounter
--- OUTSIDE RECORDS SUMMARY | 2022-04-01 12:40 | XMS_ITS | Encounter Summary ---
:1960 Author Organization [facility] Address [address] [place] [address] Care Team Providers Name Role Phone Unavailable [...] as of this encounter Progress Notes Interface, Mixed Livestock Farm Worker - 07/12/2010 2:46 PM CDT General Information General Information - <R> How to be addressed Kayden - <R> Home Health Aid Needed No - Source of reliable Patient information - Arrived from Home Patient Contact Information - <R> personal security specialist to Selina Wells (Significant other) notify: - Contact Location: Home Local - <R> Phone 1: [phone] - Cell Advance Directive [facility] [...] Care Values/Beliefs/Spiritual Care - F: Enedina: Does Mandaen culture/spirituality/ advent play an important part in your life? - <R> Would you like pastoral Does not wish to have anyone contacted care/clergy/insurance advisor notified? Mutuality/Individual Preferences Mutuality/Preferences - <R> [...] Kristina erance, Values/Beliefs/Spiritual Care, Mutuality/Individual Preferences Interface, Mixed Livestock Farm Worker - 07/12/2010 2:45 PM CDT Nutrition Assessment Nutrition Assessment - Reason for assessment Admission screen Anthropometrics - Height: 5'8 1/2 - Admission weight: 77.7 kg - BMI: 26 - IBW ([place] body weight): 71.4 kg - % IBW ([place] body weight): 109% - Dosing weight: 77.7 [...] Estimated Needs Estimated Needs - Energy needs: 9381-4095 kcal (25-30 kcal/kg) - Protein needs: 78-94 gms protein (1-1.2 gm/kg) - Fluid needs: 1860-9860 mL fluid (30-35 mL/kg) Nutrition Diagnosis Nutrition [...] Time MRSA-Contact IsolationComment: 0 04/26/2021 11:03 AM HEDGE FUND MANAGER Infection erroneous documented as of this encounter
--- OUTSIDE RECORDS SUMMARY | 2022-04-01 12:40 | XMS_ITS | Encounter Summary ---
:1960 Author Organization [place] Address [facility] [place] [address] Care Team Providers Name Role Phone Unavailable Primary Care Provider Unavailable Encounter Details Date Type Department Care Team Description 09/28/2006 Historic Results [facility] Ruben Anderson MD [address] [facility] XXX [address] [place], [place] [address] [place] [address] [phone] (Wo rk) Social History Tobacco Use Types [...] to 2500 Unit: mg/d (Note) Performed by [facility], [address] [place] [id number] [email or web address], ??Martin Frazier MD - Lab. Director Lead [...] LAB - BLOOD ORDERABLES Performing Organization Address [facility] Phon e Number MISYS (ABNORMAL) Hemogram differential and platelet (09/28/2006 7:03 AM CDT) [facility] Method Time Signature [id number] [id number] [...] - BLOOD ORDERABLES Performing Organization Address City/[facility]/ZIP Code Phon e Number MISYS (ABNORMAL) Vitamin B1 plasma (09/28/2006 7:03 AM CDT) athologist Signature Vitamin B1 4.2 (H) MISYS Comment: Reference range: 0.2 to 2.0 Unit: ug/dL (Note) Performed by [facility], [address] [place] [address] [email or web address], ??Martin Frazier MD - Lab. Director Specimen [...] and IgM screen (09/28/2006 7:03 AM CDT) [facility] Method Time Signature Specimen Serum MISYS Description [...] Time MRSA-Contact IsolationComment: 0 04/26/2021 11:03 AM DUPLICATING MACHINE MECHANIC Infection erroneous documented as of this encounter
--- OUTSIDE RECORDS SUMMARY | 2022-04-01 12:40 | XMS_ITS | Encounter Summary ---
:1960 Author Organization [place] Address [address] [place] [address] Care Team Providers Name Role Phone Unavailable Primary Care Provider Unavailable Reason for Visit Reason Onset Date Comments Refill Request 02/05/2007 lisinopril Encounter Details Date Type Department Care Team Description 02/05/2007 Refill [facility] Ref ill Request (lisinopril) [place] [phone] Social History Tobacco Use Types Packs/Day [...] MRSA-Contact IsolationComment: 0 04/26/2021 11:03 AM ASSISTANT LIBRARIAN Infection erroneous documented as of this encounter
--- OUTSIDE RECORDS SUMMARY | 2022-04-01 12:40 | XMS_ITS | Encounter Summary ---
:1960 Author Organization [facility] Address [address] [place] [address] Care Team Providers Name Role Phone Unavailable Primary Care Provider Unavailable Encounter Details Date Type Department Care Team Description 07/15/2008 Results Only [facility] Andrea Forrest, Hospital Results [place] [address] Social History Tobacco Use Types Packs/Day Years [...] Time MRSA-Contact IsolationComment: 0 04/26/2021 11:03 AM VERIFY REP Infection erroneous documented as of this encounter
--- OUTSIDE RECORDS SUMMARY | 2022-04-01 12:40 | XMS_ITS | Encounter Summary ---
:1960 Author Organization [place] Address [address] [place] [address] Care Team Providers Name Role Phone Unavailable Primary Care Provider Unavailable Encounter Details Date Type Department Care Team Description 07/15/2008 Historic Results INTERFACED REPORT Jace Forrest MD [place] [address] Social History Tobacco Use Types Packs/Day Years [...] (FL, RH, SH) (07/15/2008 7:20 PM CDT) [facility] Method Time Signature Amphetamine Qual Negative [...] with platelets differential (07/15/2008 5:25 PM CDT) [facility] Method Time Signature MCV 96 [id number] [...] - BLOOD ORDERABLES Performing Organization Address City/[facility] Code Phon e Number MISYS [...] 5:25 PM 9 5:11 CDT PM CDT Adnrea Forrest MD LAB - BLOOD ORDERABLES Performing Organization Address City/State/ZIP Code Phon e Number MISYS documented in this encounter Visit Diagnoses Not on filedocumented in this encounter Additional Health Concerns Infection Onset Date Last Indicated Resolved Time MRSA-Contact IsolationComment: 0 04/26/2021 11:03 AM RISK ASSESSMENT ANALYST Infection erroneous documented as of this encounter
--- OUTSIDE RECORDS SUMMARY | 2022-04-01 12:40 | XMS_ITS | Encounter Summary ---
:1960 Author Organization [place] Address [address] [place] [address] Care Team Providers Name Role Phone Unavailable Primary Care Provider Unavailable Reason for Visit Reason Onset Date Comments Refill Request 05/08/2007 omeprazole Encounter Details Date Type Department Care Team Description 05/08/2007 Refill [facility] Julius Welsh MD Refill Request Clinic [address] (omeprazole) [address] [place] [address] [phone] Social History Tobacco Use Types Packs/Day Years [...] Medication approved per standing orders/Leatha Lua RN O TUBE ASSEMBLER documented in this encounter Plan of Treatment Not on filedocumented as of this encounter Visit Diagnoses Diagnosis Hemorrhage of gastrointestinal tract, un specified documented in this encounter Additional Health Concerns Infection Onset Date Last Indicated Resolved Time MRSA-Contact IsolationComment: 0 04/26/2021 11:03 AM PHOTO TUBE ASSEMBLER Infection erroneous documented as of this encounter
--- OUTSIDE RECORDS SUMMARY | 2022-04-01 12:40 | XMS_ITS | Encounter Summary ---
:1960 Author Organization [place] Address [address] [place] [address] Care Team Providers Name Role Phone Unavailable Primary Care Provider Unavailable Reason for Visit Reason Onset Date Comments Nurse Advice Line 01/15/2008 ETOH Encounter Details Date Type Department Care Team Description 01/15/2008 Telephone [facility] se Advice Line (ETOH) [place] [phone] Social History Tobacco Use Types Packs/Day [...] high priority, routed for call back @ [phone] (home) Mai Khoury RN documented in this encounter Plan of Treatment Not on filedocumented as of this encounter Visit Diagnoses Diagnosis Alcohol abuse - Primary Alcohol abuse, unspecified documented in this encounter Additional Health Concerns Infection Onset Date Last Indicated Resolved Time MRSA-Contact IsolationComment: 0 04/26/2021 11:03 AM MANAGER DATA WAREHOUSING Infection erroneous documented as of this encounter
--- OUTSIDE RECORDS SUMMARY | 2022-04-01 12:40 | XMS_ITS | Encounter Summary ---
:1960 Author Organization [place] Address [address] [place] [address] Care Team Providers Name Role Phone Unavailable Primary Care Provider Unavailable Reason for Visit Reason Comments RECHECK Patient here for recheck and refill on omeprozole and has some questions about the valium and how its working Encounter Details Date Type Department Care Team Description 01/17/2008 Office Visit [facility] Julius Welsh, Unspecif ied, Hemorrhage of Gastrointestinal Tract; Clinic [place] Delirium Tremens, Alcohol Withdrawal Ind ed [address] [place] [address] [place] [address] [place], [place] [phone] [address] Social History Tobacco Use Types Packs/Day Years [...] 01/17/2008 1:00 PM CDT >> TC OMER [facility] Jan 17, 2008 1:11 PM Patient presents [...] MRSA-Contact IsolationComment: 0 04/26/2021 11:03 AM MEDICAL CONSULTANT Infection erroneous documented as of this encounter
--- OUTSIDE RECORDS SUMMARY | 2022-04-01 12:40 | XMS_ITS | Encounter Summary ---
:1960 Author Organization [place] Address [address] [place] [address] Care Team Providers Name Role Phone Unavailable [...] as of this encounter Progress Notes Interface, Greenkeeper - 07/11/2010 6:11 AM CDT General Information - How to be addressed Kayden - Source of reliable Patient; Chart(s) information - Arrived from Emergency department - salesperson meats #1: [place] - Contact Location: Home Local - Phone 1: [phone] - Patient's spoken language; Korean or Bilingual communication style Advance Directive - [...] Considerations - Developmental None Learning Considerations - Buddhism Learning None Considerations Activity-Exercise/Self Care - Ambulation [...] life Values/Beliefs/Spiritual Care - F: Enedina: Does Muslim culture/spirituality/ sabianist play an important part in your life? - Would you like Does not wish to have anyone contacted pastoral care/clergy/lending advisor notified? Mutuality/Individual Preferences - What information [...] Cognitive Perceptual, Activity-Exercise/Self Care, Role Relationships Interface, Greenkeeper - 07/11/2010 6:11 AM CDT RX: Fall [...] Time MRSA-Contact IsolationComment: 0 04/26/2021 11:03 AM RAILROADER Infection erroneous documented as of this encounter
--- OUTSIDE RECORDS SUMMARY | 2022-04-01 12:40 | XMS_ITS | Encounter Summary ---
:1960 Author Organization [place] Address [address] [place] [address] Care Team Providers Name Role Phone Unavailable [...] RESULTS Atrial Rate 81 BPM RADIOLOGY RESULTS SC Interval 142 ms RADIOLOGY RESULTS QRS Duration 112 ms RADIOLOGY RESULTS QT 342 ms RADIOLOGY RESULTS QTc 397 ms RADIOLOGY RESULTS P [place] 38 degrees RADIOLOGY RESULTS R AXIS -8 degrees RADIOLOGY RESULTS T [place] 42 degrees RADIOLOGY RESULTS Interpretation AGE AND [...] Time MRSA-Contact IsolationComment: 0 04/26/2021 11:03 AM INVENTORY ACCOUNTANT Infection erroneous documented as of this encounter
--- OUTSIDE RECORDS SUMMARY | 2022-04-01 12:40 | XMS_ITS | Encounter Summary ---
:1960 Author Organization [place] Address [address] [place] [address] Care Team Providers Name Role Phone Unavailable Primary Care Provider Unavailable Reason for Visit Reason Onset Date Comments Refill Request 12/06/2006 Lisinopril Encounter Details Date Type Department Care Team Description 12/06/2006 Refill [facility] Julius Welsh MD Refill Request Clinic [address] (Lisinopril) [address] [place] [address] [phone] Social History Tobacco Use Types Packs/Day Years Used Date Smoking Tobacco: Never Alcohol Use Standard Drinks/Week Comments Yes 0 (1 standard drink = 0.6 oz pure alcoho l) socially approx 5 drinks/wk Sex Assigned at Date Recorded Not on file documented as of this encounter Miscellaneous Notes Telephone Encounter - Meghan Ballard - 12/06/2006 3:58 PM CDT Last office visit: [id number] Reason for visit: hemorrhoid Date last filled: [id number] Last 2 BP Readings: Date: BP: 08/10/2006 [...] Time MRSA-Contact IsolationComment: 0 04/26/2021 11:03 AM JOB PRINTER Infection erroneous documented as of this encounter
--- OUTSIDE RECORDS SUMMARY | 2022-04-01 12:40 | XMS_ITS | Encounter Summary ---
:1960 Author Organization [place] Address [address] [place] [address] Care Team Providers Name Role Phone Unavailable Primary Care Provider Unavailable Encounter Details Date Type Department Care Team Description 09/28/2006 Results Only [facility] Ruben Anderson MD Hospital Results XXX RETIRED XXX [address] [place], [place] [address] (Wo rk) Social [...] MRSA-Contact IsolationComment: 0 04/26/2021 11:03 AM SECTION GANG Infection erroneous documented as of this encounter
--- OUTSIDE RECORDS SUMMARY | 2022-04-01 12:40 | XMS_ITS | Encounter Summary ---
:1960 Author Organization [place] Address [address] [place] [address] Care Team Providers Name Role Phone Unavailable Primary Care Provider Unavailable Reason for Visit Reason Onset Date Comments Medication Question 11/09/2007 omeprazole dosing Encounter Details Date Type Department Care Team Description 11/09/2007 Telephone [facility] Julius Welsh MD Medication Question Clinic [address] (omeprazole dosing) [address] [place] [phone] (Wo rk) Social History Tobacco [...] Time MRSA-Contact IsolationComment: 0 04/26/2021 11:03 AM HAIRSPRING ADJUSTER Infection erroneous documented as of this encounter
--- OUTSIDE RECORDS SUMMARY | 2022-04-01 12:40 | XMS_ITS | Encounter Summary ---
:1960 Author Organization [place] Address [address] [place] [address] Care Team Providers Name Role Phone Unavailable Primary Care Provider Unavailable Encounter Details Date Type Department Care Team Description 09/27/2006 Results Only [facility] Liudmila Austin [facility] Results MD Fina [facility] [address] [place], [place] [address] (Wo rk) Social History [...] MRSA-Contact IsolationComment: 0 04/26/2021 11:03 AM FLEET ADMINISTRATIVE ASSISTANT Infection erroneous documented as of this encounter
--- OUTSIDE RECORDS SUMMARY | 2022-04-01 12:40 | XMS_ITS | Encounter Summary ---
:1960 Author Organization [place] Address [address] [place] [address] Care Team Providers Name Role Phone Unavailable Primary Care Provider Unavailable Reason for Visit Reason Onset Date Comments Refill Request 03/13/2007 lisinopril Encounter Details Date Type Department Care Team Description 03/13/2007 Refill [facility] Tristan Egan Refill Request Clinic [place] MD Navin (lisinopril) [address] [place] [phone] (Wo rk) Social History Tobacco Use Types [...] check. Ok'd PSO Korina Villasenor, RN, BSN STMAS BELL RINGER documented in this encounter Plan of Treatment Not on filedocumented as of this encounter Visit Diagnoses Diagnosis Unspecified essential hypertension documented in this encounter Additional Health Concerns Infection Onset Date Last Indicated Resolved Time MRSA-Contact IsolationComment: 0 04/26/2021 11:03 AM CHRISTMAS BELL RINGER Infection erroneous documented as of this encounter
--- OUTSIDE RECORDS SUMMARY | 2022-04-01 12:40 | XMS_ITS | Encounter Summary ---
:1960 Author Organization [place] Address [address] [place] [address] Care Team Providers Name Role Phone Unavailable Primary Care Provider Unavailable Reason for Visit Reason Onset Date Comments Refill Request 11/08/2007 Omeprazole Encounter Details Date Type Department Care Team Description 11/08/2007 Refill [facility] Julius Welsh MD Refill Request Clinic [place] [address] (Omeprazole) [address] [place], [place] [address] [phone] Social History Tobacco Use Types Packs/Day Years [...] Time MRSA-Contact IsolationComment: 0 04/26/2021 11:03 AM UNION STEWARD Infection erroneous documented as of this encounter
--- OUTSIDE RECORDS SUMMARY | 2022-04-01 12:40 | XMS_ITS | Encounter Summary ---
:1960 Author Organization [place] Address [address] [place] [address] Care Team Providers Name Role Phone Unavailable Primary Care Provider Unavailable Encounter Details Date Type Department Care Team Description 07/15/2008 Admission [facility] Amna Austin (Roll Grinder Operator) [facility] MD Fina Results [facility] [address] [place], [place] [address] (Wo rk) Social History [...] at work this evening. He works in [employer] and felt that he was working normally [...] rest. This past weekend, he was in [place] visiting with some high school buddies. He [...] in treatment. He denies needing an eye information security systems instructor in the morning to calm the shakes. [...] MD MT: [id number] Name: ELIJAH BROWN Account: [id number] : 1960 Admitted: [id number] Document: [id number] documented in this encounter Plan of Treatment Not on filedocumented as of this encounter Visit Diagnoses Not on filedocumented in this encounter Additional Health Concerns Infection Onset Date Last Indicated Resolved Time MRSA-Contact IsolationComment: 0 04/26/2021 11:03 AM TOPOLOGY PROFESSOR Infection erroneous documented as of this encounter
--- OUTSIDE RECORDS SUMMARY | 2022-04-01 12:40 | XMS_ITS | Encounter Summary ---
:1960 Author Organization [address] [address] Care Team Providers Name Role Phone Unavailable Primary Care Provider Unavailable Encounter Details Date Type Department Care Team Description 05/11/[address] [facility] Julius Welsh MD DIAGNOSIS NOT YET Clinic [address] DEFINED (Primary Dx) [address] [place] [address] [phone] Social History Tobacco Use Types Packs/Day Years [...] . documented in this encounter Results LDL-CHOLESTEROL [01527.001] (05/11/2007) P athologist Signature LDL Cholesterol 92 mg/dL MISYS Calculated Julius Welsh MD LABORATORY Performing Organization Address City/State/ZIP Code Phon e Number MISYS HDL CHOLESTEROL [28806.000] (05/11/2007) P athologist Signature HDL Cholesterol 43 mg/dL MISYS Julius Welsh MD LABORATORY Performing Organization Address [facility] Code Phon e Number MISYS TRIGLYCERIDES [83202.000] (05/11/2007) P athologist Signature Triglycerides 134 mg/dL MISYS Julius Welsh MD LABORATORY Performing Organization Address [facility] Phon e Number MISYS CHOLESTEROL [18311.000] (05/11/2007) P athologist Signature Cholesterol 162 115 - 199 MISYS mg/dL Julius Welsh MD LABORATORY Performing Organization Address [facility] Phon e Number MISYS documented in this encounter Visit Diagnoses Diagnosis DIAGNOSIS NOT YET DEFINED - Primary documented in this encounter Additional Health Concerns Infection Onset Date Last Indicated Resolved Time MRSA-Contact IsolationComment: 0 04/26/2021 11:03 AM ACCOUNT COORDINATOR Infection erroneous documented as of this encounter
--- OUTSIDE RECORDS SUMMARY | 2022-04-01 12:40 | XMS_ITS | Encounter Summary ---
:1960 Author Organization [place] Address [address] [place] [address] Care Team Providers Name Role Phone Unavailable Primary Care Provider Unavailable Encounter Details Date Type Department Care Team Description 09/27/2006 Historic Results [facility] Horace Egan Spearman MD Navin [address] [place] [phone] (Wo rk) Social History Tobacco Use Types [...] LAB - URINE ORDERABLES Performing Organization Address [facility] Code Phon e Number MISYS (ABNORMAL) Routine UA with microscopic (09/27/2006 11:20 AM CDT) [facility] Method Time Signature Source Midstream MISYS Urine Color Urine Yellow MISYS Appearance Urine Clear MISYS Glucose Urine Negative NEG mg/dL MISYS Bilirubin Urine Negative NEG MISYS Ketones Urine 5 (A) NEG mg/dL MISYS Specific Perry 1.011 1.003 - MISYS Urine 1.035 Blood [...] LAB - URINE ORDERABLES Performing Organization Address [facility] Phon e Number MISYS C difficile culture (09/27/2006 11:20 AM CDT) [facility] Method Time Signature Specimen Feces MISYS Descrip C Difficile No Clostridium MISYS Culture difficile isolated Specimen Anatomical Collection Method Collection Time Receive d Time (Source) Location / / Volume Laterality 09/27/2006 11:20 09/27/2006 AM CDT 11:58 AM CDT Tristan Egan MD LAB - MICRO GENERAL ORDERABL ES Performing Organization Address [facility]/ZIP Code Phon e Number MISYS C differential toxin A (09/27/2006 11:20 AM CDT) [facility] Method Time Signature Specimen Feces MISYS Description C difficile Negative for MISYS Toxin A Clostridium Toxin A Specimen Anatomical Collection Method Collection Time Receive d Time (Source) Location / / Volume Laterality 09/27/2006 11:20 09/27/2006 AM CDT 11:58 AM CDT Tristan Egan MD LAB - STOOLS ORDERABLES Performing Organization Address [facility] Phon e Number MISYS Ova and parasites (09/27/2006 11:20 AM CDT) Component Value Ref Test Analysis Performed At [facility] gist Range Method Time Signature Specimen Feces MISYS Description Micro Report FINAL [id number] MISYS Status Parasite Routine MISYS Routine parasitology exam negative Comment: Rare PMNs seen Specimen received in preservative Specimen Anatomical Collection Method Collection Time Receive d Time (Source) Location / / Volume Laterality 09/27/2006 11:20 09/27/2006 AM CDT 11:58 AM CDT Tristan Egan MD LAB - MICRO GENERAL ORDERABL ES Performing Organization Address [facility] Phon e Number MISYS Stool culture SSCE (09/27/2006 11:20 AM CDT) Component Value Ref Test Analysis Performed At [facility] gist Range Method Time Signature Specimen Feces MISYS Description Culture Micro No Salmonella, MISYS Shigella, Campylobacter or E coli 0:157 isolated. Micro Report FINAL [id number] MISYS Status Specimen Anatomical Collection Method Collection Time Receive d Time (Source) Location / / Volume Laterality 09/27/2006 11:20 09/27/2006 AM CDT 11:58 AM CDT Tristan Egan MD LAB - MICRO GENERAL ORDERABL ES Performing Organization Address [facility] Phon e Number MISYS Vitamin B12 and [...] LAB - BLOOD ORDERABLES Performing Organization Address [facility] Phon e Number MISYS IgA (09/27/2006 9:50 AM CDT) athologist Signature IGA 198 70 - 380 MISYS mg/dL Specimen Anatomical Collection Method Collection Time Receive d Time (Source) Location / / Volume Laterality 09/27/2006 9:50 AM 7 CDT 10:00 AM CDT Liudmila Austin MD LAB - BLOOD ORDERABLES Performing Organization Address [facility]/ZIP Code Phon e Number MISYS Gliadin [...] LAB - BLOOD ORDERABLES Performing Organization Address [facility] Phon e Number MISYS Tissue transglutaminase bharat IgA and IgG (09/27/2006 9:50 AM CDT) [facility] Method Time Signature Tissue <0.5 U/mL MISYS Transglutaminase Antibody IgA Comment: Interpretation: Negative Tissue Transglutaminase Bharat IgG 0.8 U/mL MISYS Comment: Interpretation: Negative Specimen Anatomical Collection Method Collection Time Receive d Time (Source) Location / / Volume Laterality 09/27/2006 9:50 AM 7 CDT 10:00 AM CDT Liudmila Austin MD LAB - BLOOD ORDERABLES Performing Organization Address [facility] Code Phon e Number MISYS TSH with free T4 reflex (09/27/2006 9:50 AM CDT) P athologist Signature TSH 1.88 0.4 - 5.0 MISYS mU/L Specimen Anatomical Collection Method Collection Time Receive d Time (Source) Location / / Volume Laterality 09/27/2006 9:50 AM 7 CDT 10:30 AM CDT Liudmila Austin MD LAB - BLOOD ORDERABLES Performing Organization Address [facility]/ZIP Code Phon e Number MISYS HIV [...] LAB - BEAKER POCT Performing Organization Address [facility]/ZIP Code Phon e Number MISYS (ABNORMAL) Hemogram differential and platelet (09/27/2006 5:12 AM CDT) [facility] gist Method Time Signature MCV 99 [...] LAB - BLOOD ORDERABLES Performing Organization Address [facility] Phon e Number MISYS (ABNORMAL) Basic metabolic panel (09/27/2006 5:12 AM CDT) Analysis [facility] Time Signature Sodium 142 133 [...] LAB - BLOOD ORDERABLES Performing Organization Address [facility] Phon e Number MISYS (ABNORMAL) Hepatic panel (09/27/2006 5:12 AM CDT) Analysis Performed At [facility] Time Signature AST 111 (H) 0 - [...] Time MRSA-Contact IsolationComment: 0 04/26/2021 11:03 AM TANKAGE SUPERVISOR Infection erroneous documented as of this encounter
--- OUTSIDE RECORDS SUMMARY | 2022-04-01 12:40 | XMS_ITS | Encounter Summary ---
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 He states the next thing he knows is that paramedics were putting him into an ambulance. The details of what happened are unclear. He apparently was unresponsive at work, but no indicationof seizure activity. The ball worker report indicates that he was alert. There are no apparent neurologic abnormalities. His initial blood pressure was 130/palpable. Pulse was 90 beats per minute. I do not see that blood sugar was checked. He was transported to [facility] Emergency Room, where he was [...] other. As noted above, he works in [employer] in [employer]. He states does not smoke but, as [...] MD MT: [id number] Name: ELIJAH BROWN Account: [id number] : 1960 Consult Date: 07/16/2008 Document: [id number] cc: Liudmila Austin MD documented in this encounter Plan of Treatment Not on filedocumented as of this encounter Visit Diagnoses Not on filedocumented in this encounter Additional Health Concerns Infection Onset Date Last Indicated Resolved Time MRSA-Contact IsolationComment: 0 04/26/2021 11:03 AM PREFABRICATOR Infection erroneous documented as of this encounter
--- OUTSIDE RECORDS SUMMARY | 2022-04-01 12:40 | XMS_ITS | Encounter Summary ---
:1960 Author Organization [place] Address [facility] [place] [address] Care Team Providers Name Role Phone Unavailable Primary Care Provider Unavailable Encounter Details Date Type Department Care Team Description 09/27/2006 Consultation [place] [facility] Albert Hawthorne [facility] XXX RETIRED XXX [address] [place], [place] [address] [place] [address] [phone] (Wo rk) Social History Tobacco Use Types [...] a 45-year-old right-handed white male admitted to [facility] for further evaluation of lower extremity symptoms [...] SOCIAL HISTORY: He is employed in a [employer] room. He denies any exposure to toxic [...] sign is mildly positive. On cerebellar testing, pucdfr-ul-ynsz is done well. On evaluation of his [...] MD MT: [id number] Name: ELIJAH BROWN Account: [id number] : 1960 Consult Date: 09/27/2006 Document: [id number] documented in this encounter Plan of Treatment Not on filedocumented as of this encounter Visit Diagnoses Not on filedocumented in this encounter Additional Health Concerns Infection Onset Date Last Indicated Resolved Time MRSA-Contact IsolationComment: 0 04/26/2021 11:03 AM POULTRY SCIENTIST Infection erroneous documented as of this encounter
--- OUTSIDE RECORDS SUMMARY | 2022-04-01 12:40 | XMS_ITS | Encounter Summary ---
:1960 Author Organization [place] Address [address] [place] [address] Care Team Providers Name Role Phone Unavailable Primary Care Provider Unavailable Encounter Details Date Type Department Care Team Description 09/27/2006 Admission [facility] Amna Austin (Senior Accounting Specialist) Clinic [place] MD Fina [address] [place], [place] CLINIC [address] [phone] [place], [place] [address] (Wo rk) Social History [...] [place] was [place] fishing in the [place] area and did not have any problems [...] food intolerance that he notices is with [place] food. Over the weekend he was drinking beer as well as hard liquor. He was drinking more than he usually does. When he got back from the fishing trip, he said that he felt shaky. He says that he does normally drink 2-3 drinks of hard liquor daily. He denies requiring an e ye photographer helper. He did try to cut back after [...] MD MT: [id number] Name: ELIJAH BROWN Account: [id number] : 1960 Admitted: [id number] Document: [id number] documented in this encounter Plan of Treatment Not on filedocumented as of this encounter Visit Diagnoses Not on filedocumented in this encounter Additional Health Concerns Infection Onset Date Last Indicated Resolved Time MRSA-Contact IsolationComment: 0 04/26/2021 11:03 AM MERCHANDISER SEASONAL Infection erroneous documented as of this encounter
--- OUTSIDE RECORDS SUMMARY | 2022-04-01 12:40 | XMS_ITS | Encounter Summary ---
:1960 Author Organization [place] Address [address] [place] [address] Care Team Providers Name Role Phone Unavailable Primary Care Provider Unavailable Reason for Visit Reason Onset Date Comments Erroneous encounter-disregard 01/14/2008 Encounter Details Date Type Department Care Team Description 01/14/2008 [facility] Chase Dodd MD Erroneous Clinic [place] XXX RESIGNED XXX encounter-disregard [address] [place] [phone] (Wo rk) Social History Tobacco Use [...] Time MRSA-Contact IsolationComment: 0 04/26/2021 11:03 AM 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
--- OUTSIDE RECORDS SUMMARY | 2022-04-01 12:40 | XMS_ITS | Encounter Summary ---
:1960 Author Organization [place] Address [address] [place] [address] Care Team Providers Name Role Phone Unavailable Primary Care Provider Unavailable Reason for Referral Specialty Diagnoses / Procedures Referred By Contact Refer red To Contact Tristan [place]gan [place], [place] [id number] [place] [phone] Referral ID Status Reason Start Date Expiration Date Visits Requ ested Visits Authorized Encounter Details Date Type Department Care Team Description 11/03/2006 Orders Only [facility] Tristan Egan SIS NOT YET Clinic [place] MD DEFINED (Primary Dx) [address] [facility] [address] [place] [address] [phone] Social History Tobacco Use Types Packs/Day Years [...] MRSA-Contact IsolationComment: 0 04/26/2021 11:03 AM FINANCIAL LEGAL ASSISTANT Infection erroneous documented as of this encounter
--- OUTSIDE RECORDS SUMMARY | 2022-04-01 12:41 | XMS_ITS | Encounter Summary ---
:1960 Author Organization [place] Address [address] [place] [address] Care Team Providers Name Role Phone Unavailable Primary Care Provider Unavailable Encounter Details Date Type Department Care Team Description 09/27/2006 Emergency room [facility] [address] [place] [address] Social History Tobacco Use Types Packs/Day Years Used Date Smoking Tobacco: Never Alcohol Use Standard Drinks/Week Comments Yes 0 (1 standard drink = 0.6 oz pure alcoho l) socially approx 5 drinks/wk Sex Assigned at Date Recorded Not on file documented as of this encounter Progress Notes Interface, Mandrel Maker - 09/30/2006 8:16 AM CDT FINAL CHIEF [...] MD MT: [id number] Name: ELIJAH BROWN Account: [id number] : 1960 Visit Date: 09/27/2006 Document: [id number] cc: Tristan Ferrera MD documented in this encounter Plan of Treatment Not on filedocumented as of this encounter Visit Diagnoses Not on filedocumented in this encounter Additional Health Concerns Infection Onset Date Last Indicated Resolved Time MRSA-Contact IsolationComment: 0 04/26/2021 11:03 AM CHOCOLATE DIPPER Infection erroneous documented as of this encounter
--- OUTSIDE RECORDS SUMMARY | 2022-04-01 12:41 | XMS_ITS | Encounter Summary ---
:1960 Author Organization [place] Address [address] [place] [address] Care Team Providers Name Role Phone Unavailable Primary Care Provider Unavailable Reason for Visit Reason Comments RECHECK PT feels very weak, his feet feel like they're asleep- he's had diarrhea all day and little or nothing to eat- he did take his iron pill with orange juice and some ensure Encounter Details Date Type Department Care Team Description 08/02/2006 Office Visit [facility] Julius Welsh MD ANEMIA NOS; [facility] [place] [address] [place] [address] MIXED HYPERLIPIDEMIA; [address] [place] [address] [place] HYPERTENSION N[place], [place] [address] [phone] Social History Tobacco Use Types Packs/Day Years [...] wishes to accept offer of admission into [facility]. Histories Updated through 08.02.2006: Past [...] A/P: 1- Subacute GI bleed. Admmit to [facility] Med/Surg. T&C x 2 units [...] Time MRSA-Contact IsolationComment: 0 04/26/2021 11:03 AM PRINT BUYER Infection erroneous documented as of this encounter
--- OUTSIDE RECORDS SUMMARY | 2022-04-01 12:41 | XMS_ITS | Encounter Summary ---
:1960 Author Organization [place] Address [address] [place] [address] Care Team Providers Name Role Phone Unavailable Primary Care Provider Unavailable Reason for Visit Reason Comments Hospital F/U Encounter Details Date Type Department Care Team Description 08/10/2006 Office Visit [facility] Julius Welsh MD GASTROINTEST HEMORR NOS; Clinic [place] [address] MIXED HYPERLIPIDEMIA [address] [facility] [place] [address] [phone] Social History Tobacco Use Types Packs/Day Years [...] IsolationComment: 0 04/26/2021 11:03 AM DIRECTOR OF PHYSICAL THERAPY Infection erroneous documented as of this encounter
--- OUTSIDE RECORDS SUMMARY | 2022-04-01 12:41 | XMS_ITS | Encounter Summary ---
:1960 Author Organization [place] Address [address] [place] [address] Care Team Providers Name Role Phone Unavailable Primary Care Provider Unavailable Encounter Details Date Type Department Care Team Description 08/02/2006 Discharge Summary [facility] Amna Austin (Conveyor Weigher Operator) Clinic [place] F[place] [address] [facility] [address] [phone] [place] [address] (Wo rk) Social History Tobacco Use Types [...] MT: [id number] Name: SARAH BETH BROWN Account: [id number] : 1960 Admit Date: [id number] Discharge Date: 08/04/2006 Document: [id number] documented in this encounter Plan of Treatment Not on filedocumented as of this encounter Visit Diagnoses Not on filedocumented in this encounter Additional Health Concerns Infection Onset Date Last Indicated Resolved Time MRSA-Contact IsolationComment: 0 04/26/2021 11:03 AM POT SANDER Infection erroneous documented as of this encounter
--- OUTSIDE RECORDS SUMMARY | 2022-04-01 12:41 | XMS_ITS | Encounter Summary ---
:1960 Author Organization [place] Address [address] [place] [address] Care Team Providers Name Role Phone Unavailable Primary Care Provider Unavailable Encounter Details Date Type Department Care Team Description 08/02/2006 Consultation Isaak Bustillos MD [place] [facility] [place] [address] [facility] [facility] [address] [place], [place] [id number] (Wo rk) Social History Tobacco Use Types [...] MT: [id number] Name: SARAH BETH BROWN Account: [id number] : 1960 Consult Date: 08/02/2006 Document: [id number] documented in this encounter Plan of Treatment Not on filedocumented as of this encounter Visit Diagnoses Not on filedocumented in this encounter Additional Health Concerns Infection Onset Date Last Indicated Resolved Time MRSA-Contact IsolationComment: 0 04/26/2021 11:03 AM RAIL CAR MAINTENANCE MECHANIC Infection erroneous documented as of this encounter
--- OUTSIDE RECORDS SUMMARY | 2022-04-01 12:41 | XMS_ITS | Encounter Summary ---
:1960 Author Organization [place] Address [address] [place] [address] Care Team Providers Name Role Phone Unavailable Primary Care Provider Unavailable Encounter Details Date Type Department Care Team Description 08/02/2006 Historic Results [facility] Tabitha Welsh MD [address] [phone] (W ork) [address] [phone] Social History Tobacco Use Types Packs/Day Years [...] Results Transfuse RBC (08/02/2006 6:00 PM CDT) [facility] Method Time Signature RED BLOOD CELL Order MISYS ORDER received Comment: Check for Allocated/OK to Umanzor sfuse units Specimen Anatomical Collection Method Collection Time Receive d Time (Source) Location / / Volume Laterality 08/02/2006 6:00 PM 7 5:44 CDT PM CDT Julius Welsh MD LAB - BLOOD BANK PRODUCT ORD ER Performing Organization Address [facility] Phon e Number MISYS Troponin I (08/02/2006 5:58 PM CDT) P athologist Signature Troponin I <0.04 0.00 - 0.40 MISYS ug/L Specimen Anatomical Collection Method Collection Time Receive d Time (Source) Location / / Volume Laterality 08/02/2006 5:58 PM 7 5:44 CDT PM CDT Julius Welsh MD LAB - BLOOD ORDERABLES Performing Organization Address [facility] Phon e Number MISYS ABO/Rh type and screen (08/02/2006 5:58 PM CDT) [facility] gist Method Time Signature ABO AB MISYS RH(D) Pos MISYS Antibody Neg MISYS Screen Units Ordered 6 MISYS Crossmatch Red Blood MISYS Cells Specimen 08/05/2006 MISYS Expires Unit Number [id number] MISYS Blood Red Blood MISYS Component Type Cells Leukocyte Reduced Status of Unit ISSUED,FINAL MISYS Unit Number [id number] MISYS Blood Red Blood MISYS Component Type Cells Leukocyte Reduced Status of Unit ISSUED,FINAL MISYS Unit Number [id number] MISYS Blood Red Blood MISYS Component Type Cells Leukocyte Reduced Status of Unit ISSUED,FINAL MISYS Unit Number [id number] MISYS Blood Red Blood MISYS Component Type Cells Leukocyte Reduced Status of Unit ISSUED,FINAL MISYS Unit Number [id number] MISYS Blood Red Blood MISYS Component Type Cells Leukocyte Reduced Status of Unit REL FROM MISYS ALLOC Unit Number [id number] MISYS Blood Red Blood MISYS Component Type Cells Leukocyte Reduced Status of Unit REL FROM MISYS ALLOC Specimen Anatomical Collection Method Collection Time Receive d Time (Source) Location / / Volume Laterality 08/02/2006 5:58 PM 7 5:44 CDT PM CDT Julius Welsh MD LAB - BLOOD BANK TEST ORDER Performing Organization Address City/[facility] Phon e Number MISYS documented in this encounter Visit Diagnoses Not on filedocumented in this encounter Additional Health Concerns Infection Onset Date Last Indicated Resolved Time MRSA-Contact IsolationComment: 0 04/26/2021 11:03 AM GRAPHIC PRE PRESS TRADES WORKER Infection erroneous documented as of this encounter
--- OUTSIDE RECORDS SUMMARY | 2022-04-01 12:41 | XMS_ITS | Encounter Summary ---
:1960 Author Organization [place] Address [address] [place] [address] Care Team Providers Name Role Phone Unavailable Primary Care Provider Unavailable Encounter Details Date Type Department Care Team Description 08/02/2006 Admission [facility] Julius Welsh MD (Geodetic Engineer) [address] [address] [phone] (Wo rk) Social History Tobacco Use Types [...] primary patient of Dr. Julius Welsh of [facility], who presented to Dr. Welsh [...] and admission through the emergency room at [facility]. The patient deferred this, preferring to return [...] Wiseman strongly recommended the patient's admission to [facility] for a blood transfusion and subsequent evaluation [...] The patient will now accept admission to [facility] directly from clinic. As he is hemodynamically [...] Name: SARAH BETH BROWN MRN: [id number] Account: [id number] : 1960 Admitted: [id number] Document: [id number] cc: Parminder Wiseman MD documented in this encounter Plan of Treatment Not on filedocumented as of this encounter Visit Diagnoses Not on filedocumented in this encounter Additional Health Concerns Infection Onset Date Last Indicated Resolved Time MRSA-Contact IsolationComment: 0 04/26/2021 11:03 AM HOTEL SUPERINTENDENT Infection erroneous documented as of this encounter
--- OUTSIDE RECORDS SUMMARY | 2022-04-01 12:41 | XMS_ITS | Encounter Summary ---
:1960 Author Organization [place] Address [address] [place] [address] Care Team Providers Name Role Phone Unavailable [...] as of this encounter Progress Notes Interface, Men'S Furnishings Salesperson - 07/12/2010 5:40 PM CDT General Information General Information <R> How to be addressed - Kayden <R> Superintendent Pier Needed - No Source of reliable information - Patient Patient Contact Information <R> salesperson floor coverings to notify: - Selina Wells Sig other <R> Phone 1: - [phone] Cell Phone: - [phone] Advance Directive Advanced Health Care Directive Information <R> Do you have a Advance Health Care Directive? - No Can patient name a Surrogate Decision Maker? (Not legally binding) - Yes Surrogate Name: - Selina Wells Surrogate Home Phone Number: - [phone] <R> Would you like to receive information [...] Care Values/Beliefs/Spiritual Care F: Enedina: Does culture/spirituality/ episcopalian play an important part in your life? - Oriental Orthodox <R> Would you like pastoral care/clergy/lending advisor notified? - Does not wish to [...] MRSA-Contact IsolationComment: 0 04/26/2021 11:03 AM LINE OUT WORKER Infection erroneous documented as of this encounter
--- OUTSIDE RECORDS SUMMARY | 2022-04-01 12:41 | XMS_ITS | Encounter Summary ---
:1960 Author Organization [place] Address [address] [place] [address] Care Team Providers Name Role Phone Unavailable Primary Care Provider Unavailable Encounter Details Date Type Department Care Team Description 08/02/2006 Historic Results [facility] Tabitha Welsh MD [address] [phone] (W ork) [address] [phone] Social History Tobacco Use Types Packs/Day Years [...] RESULTS Atrial Rate 82 BPM RADIOLOGY RESULTS [place] Interval 132 ms RADIOLOGY RESULTS QRS Duration 94 ms RADIOLOGY RESULTS QT 382 ms RADIOLOGY RESULTS QTc 446 ms RADIOLOGY RESULTS P Coats 33 degrees RADIOLOGY RESULTS R AXIS 1 degrees RADIOLOGY RESULTS T Coats 30 degrees RADIOLOGY RESULTS Interpretation Sinus rhythm [...] Time MRSA-Contact IsolationComment: 0 04/26/2021 11:03 AM STRIPPER APPRENTICE Infection erroneous documented as of this encounter
--- OUTSIDE RECORDS SUMMARY | 2022-04-01 12:41 | XMS_ITS | Encounter Summary ---
:1960 Author Organization [place] Address [address] [place] [address] Care Team Providers Name Role Phone Unavailable [...] as of this encounter Progress Notes Interface, Plate Painter Apprentice - 07/12/2010 5:34 PM CDT Patient Status Patient Status Physical status - Stable (s/s of potential complications absent or manageable) Psychosocial status - Stable Discharge Planning Discharge From [facility] Patient Care Unit - MS3 PCU Phone Number - [phone] Discharge To - Home Phone number after discharge - [phone] Method of discharge - Wheel Chair Transportation [...] Instructions Diet Instructions - As instructed by environmental protection economist-follow diet sheet Activity Instructions - as tolerated [...] MRSA-Contact IsolationComment: 0 04/26/2021 11:03 AM FOOD SAFETY DIRECTOR Infection erroneous documented as of this encounter
--- OUTSIDE RECORDS SUMMARY | 2022-04-01 12:41 | XMS_ITS | Encounter Summary ---
:1960 Author Organization [place] Address [address] [place] [address] Care Team Providers Name Role Phone Unavailable Primary Care Provider Unavailable Encounter Details Date Type Department Care Team Description 08/04/2006 Historic Results [facility] Nany Austin [place] F[place] [address] [place], [place] CLINIC [address] [phone] [place], [place] [address] (Wo rk) Social History [...] (08/04/2006 6:45 AM CDT) [facility] Time Signature Sodium 141 133 - [...] Time MRSA-Contact IsolationComment: 0 04/26/2021 11:03 AM ADDICTIONS COUNSELOR Infection erroneous documented as of this encounter
--- OUTSIDE RECORDS SUMMARY | 2022-04-01 12:41 | XMS_ITS | Encounter Summary ---
:1960 Author Organization [place] Address [address] [place] [address] Care Team Providers Name Role Phone Unavailable Primary Care Provider Unavailable Encounter Details Date Type Department Care Team Description 08/03/2006 Orders Only [facility] Julius Welsh MD DIAGNOSIS NOT YET Clinic [place] [address] [place] [address] DEFINED (Primary Dx) [address] [place] [address] [phone] Social History Tobacco Use Types Packs/Day Years [...] PATHOLOGY (08/03/2006) Impressions MISYS - 08/03/2006 CASE: [id number] Patient Name: SARAH BETH BROWN MR#: [id number] Specimen #: [id number] Collected: 08/03/2006 Received: 08/03/2006 Reported: 08/04/2006 15:09 [...] is present. KARLEE/kalina 08-04-06 TESTING LAB LOCATION: [facility] [address], [place] ??[phone] COLLECTION SITE: Client: [facility] Location: MS3 (R) Electronically filed by Joan Jessica ??08/07/2006 ??8:41 AM Julius Welsh MD LABORATORY Performing Organization Address City/State/ZIP Code Phon e Number MISYS documented in this encounter Visit Diagnoses Diagnosis DIAGNOSIS NOT YET DEFINED - Primary documented in this encounter Additional Health Concerns Infection Onset Date Last Indicated Resolved Time MRSA-Contact IsolationComment: 0 04/26/2021 11:03 AM INTERSTATE PLANNER Infection erroneous documented as of this encounter
--- OUTSIDE RECORDS SUMMARY | 2022-04-01 12:41 | XMS_ITS | Encounter Summary ---
:1960 Author Organization [place] Address [address] [place] [address] Care Team Providers Name Role Phone Unavailable Primary Care Provider Unavailable Encounter Details Date Type Department Care Team Description 08/03/2006 Historic Results [facility] Nany Austin [place] MD F[place] [address] [place], [place] CLINIC [address] [phone] [place], [place] [address] (Wo rk) Social History [...] - BLOOD ORDERABLES Performing Organization Address City/[facility] Phon e Number MISYS (ABNORMAL) Calcium ionized (08/03/2006 7:55 PM CDT) athologist Signature Calcium 3.5 (L) 4.4 - 5.2 MISYS Ionized mg/dL Specimen Anatomical Collection Method Collection Time Receive d Time (Source) Location / / Volume Laterality 08/03/2006 7:55 PM 7 8:00 CDT PM CDT Liudmila Austin MD LAB - BLOOD ORDERABLES Performing Organization Address [facility] Phon e Number MISYS Transfuse RBC (08/03/2006 11:18 AM CDT) [facility] Method Time Signature RED BLOOD CELL Order MISYS ORDER received Comment: Check for Allocated/OK to Umanzor sfuse units Specimen Anatomical Collection Method Collection Time Receive d Time (Source) Location / / Volume Laterality 08/03/2006 11:18 08/03/2006 AM CDT 11:22 AM CDT Liudmila Austin MD LAB - BLOOD BANK PRODUCT O RDER Performing Organization Address [facility] Phon e Number MISYS INR (08/03/2006 10:45 AM CDT) athologist Signature INR 1.01 0.86 - 1.14 MISYS Specimen Anatomical Collection Method Collection Time Receive d Time (Source) Location / / Volume Laterality 08/03/2006 10:45 08/03/2006 AM CDT 10:25 AM CDT Parminder Cade PA-C LAB - BLOOD ORDERABLES Performing Organization Address [facility] Phon e Number MISYS Transfuse RBC (08/03/2006 10:41 AM CDT) [facility] gist Method Time Signature RED BLOOD CELL Order MISYS ORDER received Comment: Check for Allocated/OK to Umanzor sfuse units Specimen Anatomical Collection Method Collection Time Receive d Time (Source) Location / / Volume Laterality 08/03/2006 10:41 08/03/2006 6:37 AM CDT AM CDT Julius Welsh MD LAB - BLOOD BANK PRODUCT ORD ER Performing Organization Address [facility] Phon e Number MISYS (ABNORMAL) Lipase (08/03/2006 9:55 AM CDT) P athologist Signature Lipase 3259 (H) 20 - 250 MISYS U/L Comment: Specimen run with a dilution Specimen Anatomical Collection Method Collection Time Receive d Time (Source) Location / / Volume Laterality 08/03/2006 9:55 AM 7 CDT 10:00 AM CDT Liudmila Austin MD LAB - BLOOD ORDERABLES Performing Organization Address [facility] Phon e Number MISYS (ABNORMAL) Amylase (08/03/2006 9:55 AM CDT) P athologist Signature Amylase 166 (H) 30 - 110 MISYS U/L Specimen Anatomical Collection Method Collection Time Receive d Time (Source) Location / / Volume Laterality 08/03/2006 9:55 AM 7 CDT 10:00 AM CDT Liudmila Austin MD LAB - BLOOD ORDERABLES Performing Organization Address [facility] Phon e Number MISYS (ABNORMAL) Hemogram [...] Absolute Lymphocytes 1.4 0.8 - 5.3 10e9/L [place] SYS Absolute Monocytes 0.8 0.0 - 1.3 10e9/L MISY S Absolute Eosinophils 0.3 0.0 - 0.7 10e9/L [place] SYS Absolute Basophils 0.0 0.0 - 0.2 [...] read back jessica COMBS(RN) ON MS3 @ 0747 ON 08.03.06 KA Anion Gap 13 6 - 17 mmol/L MISYS Specimen (Source) Anatomical Collection Method Collection Time Re ceived Time Location / / Volume Laterality 08/03/2006 5:55 AM 7 CDT Julius Welsh MD LAB - BLOOD ORDERABLES Performing Organization Address City/State/ZIP Code Phon e Number MISYS Histopathology (08/03/2006 12:00 AM CDT) Component Value Ref Test Analysis Performed At [facility] gist Range Method Time Signature Copath CASE: [id number] ^ COPATH Report Patient Name: SARAH BETH BROWN MR#: [id number] Specimen #: [id number] Collected: 08/03/2006 Received: 08/03/2006 Reported: 08/04/2006 15:09 [...] is present. KARLEE/kalina 08-04-06 TESTING LAB LOCATION: [facility] [address] [place] ??[address] COLLECTION SITE: Client: [facility] Location: MS3 (R) Specimen (Source) Anatomical Collection [...] Time MRSA-Contact IsolationComment: 0 04/26/2021 11:03 AM BUREAU CHIEF Infection erroneous documented as of this encounter
--- OUTSIDE RECORDS SUMMARY | 2022-04-01 12:41 | XMS_ITS | Encounter Summary ---
:1960 Author Organization [place] Address [address] [place] [address] Care Team Providers Name Role Phone Unavailable [...] as of this encounter Progress Notes Interface, Cotton Farmer - 07/12/2010 5:37 PM CDT Hgb 7.3, [...] MRSA-Contact IsolationComment: 0 04/26/2021 11:03 AM COMMERCIAL SPECIALIST Infection erroneous documented as of this encounter
--- OUTSIDE RECORDS SUMMARY | 2022-04-01 12:41 | XMS_ITS | Encounter Summary ---
:1960 Author Organization [place] Address [address] [place] [address] Care Team Providers Name Role Phone Unavailable Primary Care Provider Unavailable Encounter Details Date Type Department Care Team Description 08/03/2006 Results Only [facility] Results MD Fina [facility] [address] [place], [place] [address] (Wo rk) Social History [...] Name Priority Date/Time Associated Diagnosis Comme [facility] CT ABDOMEN W/O Routine 08/03/2006 11:22 PM [...] Time MRSA-Contact IsolationComment: 0 04/26/2021 11:03 AM REPORT SPECIALIST Infection erroneous documented as of this encounter
--- OUTSIDE RECORDS SUMMARY | 2022-04-01 12:41 | XMS_ITS | Encounter Summary ---
:1960 Author Organization [place] Address [address] [place] [address] Care Team Providers Name Role Phone Unavailable Primary Care Provider Unavailable Encounter Details Date Type Department Care Team Description 08/03/[address] [facility] Julius Welsh MD None Endoscopy [address] Alejandrina [address] [place] [address] [place] [address] [phone] Social History Tobacco Use Types Packs/Day Years [...] Component Value Ref Test Analysis Performed At [facility] Method Time Signature Upper GI Endoscopy RADIOLOGY [...] RADIOLOGY RESULTS COLONOSCOPY (08/03/2006 1:45 PM CDT) [facility] gist Method Time Signature COLONOSCOPY Endoscopy RADIOLOGY [...] oxygen saturations were monitored ?cont inuously. The [id number] #[id number] was introduced through ?the anus and advanced [...] MRSA-Contact IsolationComment: 0 04/26/2021 11:03 AM BUS DRIVER/MONITOR Infection erroneous documented as of this encounter
--- OUTSIDE RECORDS SUMMARY | 2022-04-01 12:42 | XMS_ITS | Encounter Summary ---
:1960 Author Organization [place] Address [address] [place] [address] Care Team Providers Name Role Phone No Ref-Primary, Physician Primary Care Provider [phone] Juan Farias MD Unavailable Edilia Trejo APRN CLINICAL EDUCATION COORDINATOR Unavailable Glendy vailable Juan Farias MD Unavailable Denise Connell-C Unavailable [phone] Edilia Trejo APRN CLINICAL EDUCATION COORDINATOR Unavailable Glendy vailable Denise Connell-C Unavailable [phone] Juan Farias MD Primary Care Provider Dana Barry PA-C Unavailable [phone] Encounter Details Date Type Department Care Team Description 08/19/2003 Office Visit-[facility] Heart Unknown, Iva lockett MD [address] [address] Social History Tobacco Use Types [...] JEROME MORENO Referring Clinic: [facility] CLIN CURRENT DIAGNOSES 1. 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; Sexual Activity - sexually active; Residence - lives with female partner; Place of - [place]; Hours Worked - 40 hours per week [...] Time MRSA-Contact IsolationComment: 0 04/26/2021 11:03 AM TILLER MAN Infection erroneous MRSA 05/13/2021 05/13/2021 Rule Out C-difficile 12/06/2021 12/06/2021 12/07/2021 8:46 AM CDT documented as of this encounter Care Teams Survey Chief Relationship Specialty Start Date End Date No Ref-Primary, PCP - General 07/03/14 12/03/21 Physician Juan Farias MD PCP - General Cardiovascular Disease 12/04/[address] [place] [address] Juan Farias MD Assigned Heart and 02/14/20 10/03/[address] Vascular Provider [address] [place] [address] Maya, Assigned Heart and 10/04/20 Edilia Chapman APRN Vascular Provider CLINICAL EDUCATION COORDINATOR NO INFO AVAILABLE 02/10/2022 Juan Farias MD Assigned Heart and 04/04/21 07/31/[address] Vascular Provider [address] [place] [address] Denise Connell Physician Reinforced Concrete Inspector Cardiovascular Disease 08/12/21 MARIETTA Watson [address] [place] [address] [place] [address] Maya, Assigned Heart and 08/01/21 2 Edilia Chapman APRN Vascular Provider CLINICAL EDUCATION COORDINATOR NO INFO AVAILABLE 02/10/2022 Denise Connell Assigned Heart and 08/22/21 01/14/22 MARIETTA Watson Vascular Provider [address] [place] [address] Dana Barry Assigned Heart and 01/15/22 MARIETTA Teague Vascular Provider [address] [place] [id number] documented as of this encounter
--- OUTSIDE RECORDS SUMMARY | 2022-04-01 12:42 | XMS_ITS | Encounter Summary ---
:1960 Author Organization [place] Address [address] [place] [address] Care Team Providers Name Role Phone No Ref-Primary, Physician Primary Care Provider [phone] Encounter Details Date Type Department Care Team Description 07/05/[address] [facility] Heart Unknown, [facility] ider [address] [place] [address] Social History Tobacco Use Types Packs/Day Years Used Date Smoking Tobacco: Never Assessed Sex Assigned at Date Recorded Not on file documented as of this encounter Plan of Treatment Not on filedocumented as of this encounter Procedures Procedure Name Priority Date/Time Associated Diagnosis Comme nts ECHO CARDIAC - HIM SCAN 07/05/2001 12:00 AM PARENTING SKILLS INSTRUCTOR - ARCHIVE documented in this encounter Results ECHO CARDIAC - HIM SCAN - ARCHIVE (07/05/2001 12:00 AM PARENTING SKILLS INSTRUCTOR) Anatomical Region Laterality Modality Echocardiography Specimen (Source) [...] Time MRSA-Contact IsolationComment: 0 04/26/2021 11:03 AM PARENTING SKILLS INSTRUCTOR Infection erroneous documented as of this encounter Care Teams Deputy Prosecuting Attorney Relationship Specialty Start Date End Date No Ref-Primary, Physician PCP - General 07/03/14 12/03/21 documented as of this encounter
--- OUTSIDE RECORDS SUMMARY | 2022-04-01 12:42 | XMS_ITS | Encounter Summary ---
:1960 Author Organization [facility] Address [address] [place] [address] Care Team Providers Name Role Phone No Ref-Primary, Physician Primary Care Provider Juan Farias MD Unavailable Edilia Trejo APRN BOAT RIGGER Unavailable Glendy vailable Juan Farias MD Unavailable Denise Connell-C Unavailable [phone] Edilia Trejo APRN BOAT RIGGER Unavailable Glendy vailable Denise Connell-C Unavailable [phone] Juan Farias MD Primary Care Provider Dana Barry PA-C Unavailable [phone] Encounter Details Date Type Department Care Team Description 08/21/2002 Office Visit-[facility] Heart Unknown, Iva lockett MD [address] [address] Social History Tobacco Use Types [...] Seat Belt Use - always; 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; Sexual Activity - sexually active; [...] MRSA-Contact IsolationComment: 0 04/26/2021 11:03 AM ACADEMIC SUPPORT ASSISTANT Infection erroneous MRSA 05/13/2021 05/13/2021 Rule Out C-difficile 12/06/2021 12/06/2021 12/07/2021 8:46 AM CDT documented as of this encounter Care Teams Cloth Feeder Relationship Specialty Start Date End Date No Ref-Primary, PCP - General 07/03/14 12/03/21 Physician Juan Farias MD PCP - General Cardiovascular Disease 12/04/[address] [place], [place] [address] Juan Farias MD Assigned Heart and 02/14/20 10/03/[address] Vascular Provider [address] [place], [place] [address] Maya, Assigned Heart and 10/04/20 Edilia Chapman APRN Vascular Provider BOAT RIGGER NO INFO AVAILABLE 02/10/2022 Juan Farias MD Assigned Heart and 04/04/21 07/31/[address] Vascular Provider [address] [place] [address] Denise Connell Physician Government Guard Cardiovascular Disease 08/12/21 MARIETTA Watson [address] [place] [address] Maya, Assigned Heart and 08/01/21 2 Edilia Chapman APRN Vascular Provider BOAT RIGGER NO INFO AVAILABLE 02/10/2022 Denise Connell Assigned Heart and 08/22/21 01/14/22 MARIETTA Watson Vascular Provider [address] [place] [address] Dana Barry Assigned Heart and 01/15/22 MARIETTA Teague Vascular Provider [address] [place] [id number] documented as of this encounter
--- OUTSIDE RECORDS SUMMARY | 2022-04-01 12:42 | XMS_ITS | Encounter Summary ---
:1960 Author Organization [facility] Address [address] [address] Phone Care Team Providers Name Role Phone [...]
--- OUTSIDE RECORDS SUMMARY | 2022-04-01 12:42 | XMS_ITS | Encounter Summary ---
:1960 Author Organization [facility] Address [address] [place] [address] Care Team Providers Name Role Phone Unavailable Primary Care Provider Unavailable Reason for Visit Reason Comments Dizziness x 1 wk, diarrhea,cough, N&V, weakness, Encounter Details Date Type Department Care Team Description 07/31/2006 Office Visit [facility] Julius Welsh MD HYPERTENSION NOS; Clinic [place] [address] MIXED HYPERLIPIDEMIA; [address] [facility] [place] [address] Social History Tobacco Use [...] CDT) athologist Signature CRP Cardiac 10.6 mg/L [facility] LABS Comment: Reference Values: Low Risk: ? <1.0 mg/L Average Risk: ? 1.0-3.0 mg/L High Risk: ?>3.0 mg/L Acute Inflammation: >8.0 mg/L Specimen Anatomical Collection Method Collection Time Receive d Time (Source) Location / / Volume Laterality 07/31/2006 4:22 PM 200 7 4:24 CDT PM CDT Julius Welsh MD LABORATORY Performing Organization Address City/State/[facility] Code Phon e Number [facility] [address] [place], [place] [phone] [place] [address] LABS (ABNORMAL) CBC WITH PLATELETS, DIFF (07/31/2006 4:22 PM CDT) athologist Signature WBC 6.8 4.0 - 11.0 [place] 10e9/L [facility] RBC Count 2.06 (L) 4.4 - 5.9 [facility] 10[facility]12[facility] Comment: Results confirmed by repeat patricia t Hemoglobin 6.5 (LL) 13.3 - 17.7 g/dL [facility] LAB Comment: Results confirmed by repeat patricia t Hematocrit 20.1 (L) 40.0 - 53.0 % [facility] MCV 98 78 - [address] [facility] MCH 31.6 26.5 - 33.0 pg [facility] MCHC 32.3 31.5 - 36.5 g/dL [facility] RDW 15.3 (H) 10.0 - 15.0 % [facility] Platelet Count 352 150 - 450 10e9/L [facility] Diff Method Automated Method [facility] % Lymphocytes 30 20 - 48 % [facility] % Monocytes 8 0 - 12 % [facility] % Granulocytes 62 40 - 75 % [facility] Absolute Lymphocytes 2.1 0.8 - 5.3 10e9/L [facility] Absolute Monocytes 0.5 0.0 - 1.3 10e9/L [facility] Absolute Granulocytes 4.2 1.6 - 8.3 10e9/L [facility] Specimen Anatomical Collection Method Collection Time Receive d Time (Source) Location / / Volume Laterality 07/31/2006 4:22 PM 7 4:24 CDT PM CDT Julius Welsh MD LABORATORY Performing Organization Address City/State/ZIP Code Phon e Number [facility] [address] [place] [address] [facility] TSH W/FREE T4 REFLEX (07/31/2006 4:22 PM CDT) athologist Signature TSH 3.66 0.4 - 5.0 [facility] mU/L [facility] Specimen Anatomical Collection Method Collection Time Receive d Time (Source) Location / / Volume Laterality 07/31/2006 4:22 PM 7 4:24 CDT PM CDT Julius Welsh MD LABORATORY Performing Organization Address City/[facility]/ZIP Code Phon e Number [facility] [address] [place] [phone] [facility] LAB (ABNORMAL) HEMOGLOBIN A1C (07/31/2006 4:22 PM CDT) athologist Signature Hemoglobin A1C 6.8 (H) 4.3 - 6.0 [place] % [facility] LAB Specimen Anatomical Collection Method Collection Time Receive d Time (Source) Location / / Volume Laterality 07/31/2006 4:22 PM 7 4:24 CDT PM CDT Julius Welsh MD LABORATORY Performing Organization Address City/[facility]/ZIP Code Phon e Number [facility] [address] [place] [address] [facility] LAB (ABNORMAL) AST (07/31/2006 4:22 PM CDT) P athologist Signature AST 149 (H) 0 - 55 U/L [facility] Specimen Anatomical Collection Method Collection Time Receive d Time (Source) Location / / Volume Laterality 07/31/2006 4:22 PM 7 4:24 CDT PM CDT Julius Welsh MD LABORATORY Performing Organization Address City/[facility]/ZIP Code Phon e Number [facility] [address] [facility] [place] [address] [phone] [facility] (ABNORMAL) A.M.A. LIPID PANEL (07/31/2006 [...] Triglycerides 492 (H) 0 - 150 mg/dL [facility] LAB Comment: Results confirmed by repeat patricia t HDL Cholesterol 16 (L) 40 - 110 mg/dL [facility] LDL Cholesterol Cannot estimate LDL 0 - 129 mg/dL [facility] Calculated when triglyceride CLINIC LAB exceeds 400 mg/dL VLDL-Cholesterol Cannot estimate VLDL 0 - 30 mg/dL [facility] when triglyceride CLINIC LAB exceeds 400 mg/dL. Cholesterol/HDL Ratio 16.4 (H) 0.0 - 5.0 [facility] Specimen Anatomical Collection Method Collection Time Receive d Time (Source) Location / / Volume Laterality 07/31/2006 4:22 PM 7 4:24 CDT PM CDT Julius Welsh MD LABORATORY Performing Organization Address City/[facility] Code Phon e Number [facility] [address] [facility] [place] [address] [phone] [facility] ALANINE AMINO (ALT) (SGPT) (07/31/2006 4:22 PM CDT) athologist Signature ALT 60 0 - 70 U/L [facility] Specimen Anatomical Collection Method Collection Time Receive d Time (Source) Location / / Volume Laterality 07/31/2006 4:22 PM 7 4:24 CDT PM CDT Julius Welsh MD LABORATORY Performing Organization Address [facility]/ZIP Code Phon e Number [facility] [address] [facility] [place] [address] [phone] [facility] (ABNORMAL) A.M.A. BASIC METABOLIC PANEL (07/31/2006 4:22 PM CDT) athologist Signature Sodium 132 (L) 133 - 144 [facility] mmol/L [facility] Potassium 3.8 3.4 - 5.3 [place] mmol/L CLINIC LAB Chloride 88 (L) 94 - 109 [place] mmol/L CLINIC LAB Carbon Dioxide 26 20 - 32 [place] mmol/L [facility] Anion Gap 18 (H) 6 - 17 [facility] mmol/L [facility] Glucose 114 (H) 60 - 110 [facility] mg/dL [facility] Urea Nitrogen 79 (H) 5 - 24 [facility] mg/dL CLIN[facility] LAB Comment: Results confirmed by repeat patricia t Creatinine 3.20 (H) 0.80 - 1.50 mg/dL [place] [facility] [facility] GFR Estimate 23 (L) >60 mL/min/1.7m2 [place] [facility] GFR Estimate If Black 27 (L) >60 mL/min/1.7m2 [facility] Calcium 8.2 (L) 8.5 - 10.4 mg/dL [facility] Specimen Anatomical Collection Method Collection Time Receive d Time (Source) Location / / Volume Laterality 07/31/2006 4:22 PM 7 4:24 CDT PM CDT Julius Welsh MD LABORATORY Performing Organization Address City/[facility]/ZIP Code Phon e Number [address] [place] [address] [phone] [facility] documented in this encounter Visit Diagnoses Diagnosis Unspecified essential hypertension Mixed hyperlipidemia Dizziness and giddiness documented in this encounter Additional Health Concerns Infection Onset Date Last Indicated Resolved Time MRSA-Contact IsolationComment: 0 04/26/2021 11:03 AM AIRLINE STATION AGENT Infection erroneous documented as of this encounter
--- OUTSIDE RECORDS SUMMARY | 2022-04-01 12:42 | XMS_ITS | Encounter Summary ---
:1960 Author Organization [facility] Address [address] [place] [address] Care Team Providers Name Role Phone No Ref-Primary, Physician Primary Care Provider [phone] Juan Farias MD Unavailable Edilia Trejo APRN VENTURE CAPITALIST Unavailable Glendy vailable Juan Farias MD Unavailable Denise Connell-C Unavailable [phone] Edilia Trejo APRN VENTURE CAPITALIST Unavailable Glendy vailable Denise Connell-C Unavailable [phone] Juan Farias MD Primary Care Provider Dana Barry PA-C Unavailable [phone] Encounter Details Date Type Department Care Team Description 08/19/2004 Office Visit-[facility] Heart Unknown, Iva lockett MD [address] [address] Social History Tobacco Use [...] old Referring Physician: JEROME MORENO Referring Clinic: [facility] CURRENT DIAGNOSES 1. 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; Sexual Activity - sexually active; Residence [...] Time MRSA-Contact IsolationComment: 0 04/26/2021 11:03 AM LANOLIN PLANT OPERATOR Infection erroneous MRSA 05/13/2021 05/13/2021 Rule Out C-difficile 12/06/2021 12/06/2021 12/07/2021 8:46 AM CDT documented as of this encounter Care Teams Fat Pressroom Worker Relationship Specialty Start Date End Date No Ref-Primary, PCP - General 07/03/14 12/03/21 Physician Juan Farias MD PCP - General Cardiovascular Disease 12/04/[address] [place], [place] [address] Juan Farias MD Assigned Heart and 02/14/20 10/03/[address] Vascular Provider [address] [place], [place] [address] Maya, Assigned Heart and 10/04/20 Edilia Chapman APRN Vascular Provider VENTURE CAPITALIST NO INFO AVAILABLE 02/10/2022 Juan Farias MD Assigned Heart and 04/04/21 07/31/[address] Vascular Provider [address] [place] [address] Denise Connell Physician Decorator Inspector Cardiovascular Disease 08/12/21 MARIETTA Watson [address] [place] [address] Maya, Assigned Heart and 08/01/21 2 Edilia Chapman APRN Vascular Provider VENTURE CAPITALIST NO INFO AVAILABLE 02/10/2022 Denise Connell Assigned Heart and 08/22/21 01/14/22 MARIETTA Watson Vascular Provider [address] [place] [address] Dana Barry Assigned Heart and 01/15/22 MARIETTA Teague Vascular Provider [address] [place] [address] documented as of this encounter
--- OUTSIDE RECORDS SUMMARY | 2022-04-01 12:42 | XMS_ITS | Encounter Summary ---
:1960 Author Organization [facility] Address [address] [place] [address] Care Team Providers Name Role Phone Unavailable Primary Care Provider Unavailable Encounter Details Date Type Department Care Team Description 07/25/2005 Orders Only [facility] Tristan Egan SIS NOT YET Clinic [place] MD Navin DEFINED (Primary Dx) [address] [place] [address] [phone] Social History Tobacco Use Types Packs/Day Years [...] . documented in this encounter Results TRIGLYCERIDES [09531.000] (07/25/2005) athologist Signature Triglycerides 95 mg/dL [facility] Tristan Egan MD LABORATORY Performing Organization Address City/State/ZIP Code Phon e Number [facility] LDL-CHOLESTEROL [29412.001] (07/25/2005) athologist Signature LDL Cholesterol 111 mg/dL [facility] Calculated Tristan Egan MD LABORATORY Performing Organization Address [facility] Phon e Number [facility] HDL CHOLESTEROL [[id number]] (07/25/2005) P athologist Signature HDL Cholesterol 93 mg/dL [facility] Tristan Egan MD LABORATORY Performing Organization Address [facility] Phon e Number [facility] (ABNORMAL) CHOLESTEROL [[id number]] (07/25/2005) athologist Signature Cholesterol 223 (A) 115 - 199 [facility] mg/dL Tristan Egan MD LABORATORY Performing Organization Address [facility] Phon e Number [facility] documented in this encounter Visit Diagnoses Diagnosis DIAGNOSIS NOT YET DEFINED - Primary documented in this encounter Additional Health Concerns Infection Onset Date Last Indicated Resolved Time MRSA-Contact IsolationComment: 0 04/26/2021 11:03 AM FRUIT OR NUT GROWER Infection erroneous documented as of this encounter
--- OUTSIDE RECORDS SUMMARY | 2022-04-01 12:42 | XMS_ITS | Clinical Summary ---
:1960 Author Organization [facility] Address [address] [address] Phone Care Team Providers Name Role Phone [...] Phone Address Typ e / Group Dates [place] MEDICAL [place] MEDICAL [id number] 2021-Prese [phone] [place]PT OF [place] NISHA NISHA nt 11 HUMAN SERV/MHCP CLAIMS PROCESSING [address] [address] [place] [address] (Home) [place] [address] Advance Directives For more information, please contact: [phone] Latest Code Status on File Code Status Date Activated Date Inactivated Comments Full Code 09/22/2021 11:21 AM 09/26/2021 5:16 PM
--- OUTSIDE RECORDS SUMMARY | 2022-04-01 12:42 | XMS_ITS | Encounter Summary ---
:1960 Author Organization [facility] Address [address] [place] [address] Care Team Providers Name Role Phone Unavailable Primary Care Provider Unavailable Reason for Visit Reason Comments Trauma eye injury Encounter Details Date Type Department Care Team Description 04/22/2003 Office Visit [facility] Tristan EganUS ION FACE/SCALP/NCK; Clinic [place] MD Navin [facility] [address] [address] [phone] Social History Tobacco Use Types Packs/Day Years Used Date Smoking Tobacco: Never Assessed Sex Assigned at Date Recorded Not on file documented as of this encounter Last Filed Vital Signs Vital Sign Reading Time Taken Comments Blood Pressure 120/78 04/22/2003 11:00 AM TELEGRAPH INSTALLER Pulse - - Temperature - - Respiratory Rate - - Oxygen Saturation - - Inhaled Oxygen Concentration - - Weight - - Height - - Body Mass Index - - documented in this encounter Progress Notes 04/22/2003 11:00 AM TELEGRAPH INSTALLER Puncture wound near eye with echymosis of [...] MRSA-Contact IsolationComment: 0 04/26/2021 11:03 AM TELEGRAPH INSTALLER Infection erroneous documented as of this encounter
--- OUTSIDE RECORDS SUMMARY | 2022-04-01 12:42 | XMS_ITS | Encounter Summary ---
:1960 Author Organization [facility] Address [address] [place] [address] Care Team Providers Name Role Phone No Ref-Primary, Physician Primary Care Provider [phone] Juan Farias MD Unavailable Edilia Trejo APRN MEDICATION SPECIALIST Unavailable Glendy vailable Juan Farias MD Unavailable Denise Connell-C Unavailable [phone] Edilia Trejo APRN MEDICATION SPECIALIST Unavailable Glendy vailable Denise Connell-C Unavailable [phone] Juan Farias MD Primary Care Provider Dana Barry PA-C Unavailable [phone] Encounter Details Date Type Department Care Team Description 08/17/2001 Office Visit-[facility] Heart Unknown, Iva lockett MD [address] [address] Social History Tobacco Use Types [...] Belt Use - always; 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; Sexual Activity - sexually active; Residence - lives with female partner; Place of - [place]; Hours Worked - 40 hours per week [...] MRSA-Contact IsolationComment: 0 04/26/2021 11:03 AM MEDICAL SUPERVISOR Infection erroneous MRSA 05/13/2021 05/13/2021 Rule Out C-difficile 12/06/2021 12/06/2021 12/07/2021 8:46 AM CDT documented as of this encounter Care Teams Fish Conservationist Relationship Specialty Start Date End Date No Ref-Primary, PCP - General 07/03/14 12/03/21 Physician Juan Farias MD PCP - General Cardiovascular Disease 12/04/21 [address] [place] [address] Juan Farias MD Assigned Heart and 02/14/20 10/03/[address] Vascular Provider [address] [place] [id number] Maya, Assigned Heart and 10/04/20 Edilia Chapman APRN Vascular Provider [place] NO INFO AVAILABLE 02/10/2022 Juan Farias MD Assigned Heart and 04/04/21 07/31/21 [address] Vascular Provider [address] [place], [place] [address] Denise Connell Physician Utility Assembler Cardiovascular Disease 08/12/21 MARIETTA Watson [address] [place], [place] [address] Maya, Assigned Heart and 08/01/21 2 Edilia Chapman APRN Vascular Provider MEDICATION SPECIALIST NO INFO AVAILABLE 02/10/2022 Denise Connell Assigned Heart and 08/22/21 01/14/22 MARIETTA Watson Vascular Provider [address] [place], [place] [address] Dana Barry Assigned Heart and 01/15/22 MARIETTA eTague Vascular Provider [address] [place], [place] [address] documented as of this encounter
--- OUTSIDE RECORDS SUMMARY | 2022-04-01 12:42 | XMS_ITS | Encounter Summary ---
:1960 Author Organization [facility] [facility] Address [address] [place] [address] Care Team Providers Name Role Phone Unavailable Primary Care Provider Unavailable Reason for Referral Specialty Diagnoses / Procedures Referred By Contact Refer red To Contact Tristan Egan ph, [place] [phone] [place] [address]30 53 Referral ID Status Reason Start Date Expiration Date Visits Requ ested Visits Authorized Encounter Details Date Type Department Care Team Description 08/19/2004 Orders Only [facility] Tristan Egan SIS NOT YET [facility] [place] MD DEFINED (Primary Dx) [address] [facility] [address] [place] [address] [phone] Social History Tobacco Use Types Packs/Day Years Used Date Smoking Tobacco: Never Assessed Sex Assigned at Date Recorded Not on file documented as of this encounter Plan of Treatment Not on filedocumented as of this encounter Procedures Procedure Name Priority Date/Time Associated Diagnosis Comme nts [facility] [place] [facility] RE[facility] Routine 08/19/2004 DIAGNOSIS NOT YET DEFINED documented in this encounter Results CONSULT [facility] HEART (08/19/2004) Specimen (Source) Anatomical Location Collection [...] MRSA-Contact IsolationComment: 0 04/26/2021 11:03 AM SUPERVISOR DRY CELL ASSEMBLY Infection erroneous documented as of this encounter
--- OUTSIDE RECORDS SUMMARY | 2022-04-01 12:42 | XMS_ITS | Encounter Summary ---
:1960 Author Organization [employer] Address [address] [place] [address] Phone Care Team Providers Name Role Phone Unavailable Primary Care Provider Unavailable Reason for Referral Office Visit (Routine) - Closed Specialty Diagnoses / Procedures Referred By Contact Refer red To Contact Diagnoses Hospital discharge follow-up Miquel Mckeon MD [address] [place] [address] Referral ID Status Reason Start Date Expiration Date Visits Requ ested Visits Authorized [id number] Closed 09/26/2021 03/28/2022 1 1 Question Answer Follow-up With: Primary Care Referral Type: Hospital Follow-up Follow-up Time Frame: 3 Days Diagnosis supporting this Referral: Hospital discharge follow-up [[id number]] Reason for Visit Reason Comments Seizures Withdrawal- Alcohol Auth/Cert Specialty Diagnoses / Procedures Referred By Contact Refer red To Contact Diagnoses Hypokalemia Hypomagnesemia Hypophosphatemia Tachycardia Alcohol withdrawal seizure with complication (HCC) Alcohol withdrawal seizure without complication (HCC[facility] [address] [facility] [place] [address] Referral ID Status Reason Start Date Expiration Date Visits Requ ested Visits Authorized [id number] 1 1 Encounter Details Date Type Department Care Team Description 09/21/2021 - Hospital Encounter [facility] Dago Henriquez DO [address] [facility] [place] [id number] Alcohol withdrawal seizure with complica tion (HCC) (Primary Dx); 09/26/2021 [facility] Miquel Mckeon MD [address] [place] [address] [phone] Tachycardia; [address] [place] [address] N Liam Rodriguez MD [address] [place] [phone] Hypomagnesemia; [place] [address] Hypokalemia; [phone] Hypophosphatemi a; Alcohol withdra wal seizure without [...] CD consult He will be discharged from [facility] to home Discharge Medications: Current Discharge Medication [...] your medicine. Do not use any medicines, vnxt-gqa-lhezziq drugs, vitamins, herbs, or food supplements without [...] smoke. Smoking cessation support is available at [employer] (3-145-568-XYRM([phone]) or [employer]). Juan Pablo Brown does not smoke. We are concerned about your emotional health after discharge. If you are feeling alone, sad, or hopeless, a 24 hour suicide crisis and referral hotline is available at [employer] (4902) or toll-free at Instructions for Care: If [...] Take 1 Tablet by 30 Tablet 0 08/202110/26/2021 MG delayed-release tablet mouth every evening for 30 days. Do not crush. thiamine 250 MG Tablet Take 500 mg by 10 Tablet 0 2 09/26/2021 mouth one time a day for 10 days. PHENobarbital (Luminal) Take 1 Tablet by 4 Tablet 0 2 09/26/2021 32.4 MG tablet mouth every 12 [...] Tablet by 10 Tablet 0 09/27/ 022 09/26/2021 mouth one time a day for 10 days. amLODIPine (Norvasc) 5 MG Take 1 Tablet by 30 Tablet 0 /09/202109/26/2021 tablet mouth one time a day for 30 days. documented in this encounter Discharge Disposition Disposition Code Departure Means Destination Comments Home and/or Self Alf documented in this encounter Progress Notes Ana [...] Mckeon MD - 09/25/2021 10:52 AM CDT [facility] Hospital Course Juan Pablo Brown is a [...] Mckeon MD - 09/24/2021 11:50 AM CDT [facility] Hospital Course Juan Pablo Brown is a [...] - 09/24/2021 11:30 AM CDT Spoke with charger operator and chart reviewed, pt on tele-sitter, pulling [...] confused at this time. 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 Results should be used in [...] for this test can be found at: https://www.fda.gov/medical-devices/ingovntej-fouwnvrpwz-jsltrft-devices/emergen bv-vih-pqwxwbnlpswbpl Assessment AND Plan: Active Hospital Problems Alcohol [...] bit of time to remember, then stated [place]. Patient states the program offers 3 days per week of outpatient. Hegoes on to say that he has experienced 10 years of sobriety in the past, so I know how to stay sober. Patient is recommended to let his program in [place] know about his recent alcohol use and severealcohol withdrawal complications. Patient is also recommended to attend 12 step support group meetings. Patient verbally complied regarding reporting his status to the outpatient program but states he is not interested in AA. Patient also accepted my [facility] contact information. I also did a program search in [place], finding one outpatient program called [facility] that does provide outpatient chemical dependency services, so hopefully patient is enrolled in the program, given the fact he is currently in [place]. YT Kenzie Kohli PharmD - 09/22/2021 3:10 AM CDT [facility] Medication History obtained by: Kenzie Kohli PharmD [...] AM CDT Seems to be dozing [place] Alsa RN - 09/22/2021 7:45 AM CDT Did [...] put pt on the waitlist Ernst Black [facility] - 09/22/2021 1:15 AM CDT Called Stat Doc Ernst Black [facility] - 09/22/2021 1:14 AM CDT [facility] a case by case, and they have no ICU beds Ernst Black [facility] - 09/22/2021 1:04 AM [...] 60 year old male who presents to [facility] for Patient presents with: Seizures Withdrawal- Alcohol [...] [LH] ED Course User Index [LH] Abdirahman Henriquez T, DO Medications magnesium sulfate in water infusion [...] tablet 1 Tablet (1 Tablet Oral Given 09/21/212333) thiamine (B-1) injection 200 mg (200 mg IV Push Given 09/21/212335) folic acid tablet 1 mg (1 mg [...] a 60 year old male presenting to [facility] with: Patient presents with: Seizures Withdrawal- [...] will be placed on a hold at [facility] as we are presently out of beds, [...] for help at home ??? Collaboration with Blood Bank Calendar Control Clerk/Case Management Problem: Skin Goal: Skin integrity within [...] Jackson RN - 09/26/2021 12:44 PM CDT 03841-361 Phenobarbital Oral Tablet Uses This medicine is [...] medicines you take. Include both prescription and ghyl-qvi-nwxvoyf medicines. Also tell them about any vitamins, [...] medicine, contactyour doctor immediately. Do not take Florence-Graham's wort while on this medicine. Ask your [...] you have any questions about this medicine. [email or web address] IMPORTANT NOTE: This document tells you briefly how to take your medicine, but it does not tell you all there is to know about it. Your doctor or pharmacist may give you other documents about your medicine. Please talk to them if you have any questions. Always follow their advice. There is a more complete description of this medicine available in [employer] [place]. Scan this code on your smartphone or tablet or use the web address below. You can also ask your pharmacist for a printout. If you have any questions, please ask your pharmacist. ?? 2020 [employer] ?? 1606-5256 The Striiv. All rights reserved. This information is not intended as a substitute for professional medical care. Always follow your healthcare professional's instructions. Patient Education - Ana M Jackson RN - 09/26/2021 12:44 PM CDT 79895-719 Vitamin B1 (thiamine) Oral Tablet Uses For vitamin replacement. Instructions This medicine may be taken with or without food. Store at room temperature in a dry place. Do not keep in the bathroom. Keep the medicine away from heat and light. Please tell your doctor and pharmacist about all the medicines you take. Include both prescription and ztht-dtc-jjvuwea medicines. Also tell them about any vitamins, [...] you have any questions about this medicine. [email or web address] IMPORTANT NOTE: This document tells you briefly how to take your medicine, but it does not tell you all there is to know about it. Your doctor or pharmacist may give you other documents about your medicine. Please talk to them if you have any questions. Always follow their advice. There is a more complete description of this medicine available in [facility] [place]. Scan this code on your smartphone or tablet or use the web address below. You can also ask your pharmacist for a printout. If you have any questions, please ask your pharmacist. ?? 2020 [employer], [employer] Me. ?? 7235-1305 The [employer]. All rights reserved. This information is not intended as a substitute for professional medical care. Always follow your healthcare professional's instructions. Patient Education - Ana M Jackson RN - 09/26/2021 12:43 PM CDT [address] Pantoprazole Delayed Release Oral Tablet Protonix Uses [...] medicines you take. Include both prescription and bjqr-iau-epcxqgo medicines. Also tell them about any vitamins, [...] this medicine. Do not treatthe diarrhea with yzps-kvb-olncawh diarrhea medicine. Tell the doctor or pharmacist [...] you have any questions about this medicine. [email or web address] IMPORTANT NOTE: This document tells you briefly how to take your medicine, but it does not tell you all there is to know about it. Your doctor or pharmacist may give you other documents about your medicine. Please talk to them if you have any questions. Always follow their advice. There is a more complete description of this medicine available in [employer] [place]. Scan this code on your smartphone or tablet or use the web address below. You can also ask your pharmacist for a printout. If you have any questions, please ask your pharmacist. ?? 2020 First Vision[employer]. ?? [phone] The [employer]. All rights reserved. This information is not intended as a substitute for professional medical care. Always follow your healthcare professional's instructions. Patient Education - Renetta Ana M Chi, RN - 09/26/2021 12:43 PM CDT 58960-715 Folic Acid Oral Tablet Folacin Uses This [...] medicines you take. Include both prescription and qzoj-jto-tjmtujl medicines. Also tell them about any vitamins, [...] complete description of this medicine available in [employer] [place]. Scan this code on your smartphone or tablet or use the web address below. You can also ask your pharmacist for a printout. If you have any questions, please ask your pharmacist. ?? 2020 Dwe[employer]. ?? Simple. All rights reserved. This information is not intended as a substitute for professional medical care. Always follow your healthcare professional's instructions. Patient Education - Ana M Jackson RN - 09/26/2021 12:42 PM CDT 3635-9842 Amlodipine Oral Tablet Norvas Uses This medicine [...] medicines you take. Include both prescription and hsch-wih-ayctdte medicines. Also tell them about any vitamins, [...] you have any questions about this medicine. [email or web address] IMPORTANT NOTE: This document tells you briefly how to take your medicine, but it does not tell you all there is to know about it. Your doctor or pharmacist may give you other documents about your medicine. Please talk to them if you have any questions. Always follow their advice. There is a more complete description of this medicine available in [employer] [place]. Scan this code on your smartphone or tablet or use the web address below. You can also ask your pharmacist for a printout. If you have any questions, please ask your pharmacist. ?? 2020 First [employer] Inc. ?? 9814-3016 The Striiv. All rights reserved. This information is not intended as a substitute for professional medical care. Always follow your healthcare professional's instructions. Patient Education - Ana M Jackson RN - 09/26/2021 12:42 PM CDT 82486 Understanding Tachycardia The heart has an electrical [...] New symptoms Last Reviewed Date: 2021 ?? [phone] The Striiv. All rights reserved. This information is not intended as a substitute for professional medical care. Always follow your healthcare professional's instructions. Patient Education - Ana M Jackson RN - 09/26/2021 12:41 PM CDT 91261 Addiction: Getting Help Admitting that you have [...] provider can help you. So can a door core assembler, transmission maintenance supervisor, or rabbi who is trained in substance abuse counseling. Friends and family may also help once you are working with experts. Together you can make changes needed for success. This can help you to have a positive and rewarding life. To learn more ?? [facility] Ad[employer]x Helpline, ?? National [place] on Alcoholism and Drug Dependence (NCADD), Last Reviewed Date: 2019 ?? 2802-5123 The Striiv. All rights reserved. This information is not intended as a substitute for professional medical care. Always follow your healthcare professional's instructions. Patient Education - Ana M Jackson RN - 09/26/2021 12:41 PM CDT [id number] Alcohol Withdrawal Alcohol withdrawal often starts after [...] Repeated vomiting Last Reviewed Date: 2021 ?? [id number] The Striiv. All rights reserved. This information is not [...] centered goal for this shift:: rest (09/25/21 9224). Evaluation of patient goal progress *Met. Care [...] to nausea/vomitting. Phenobarbital being tapered per eMAR. states possible discharge tomorrow. Problem: Discharge Planning Goal: No barriers to discharge Outcome: Progressing Flowsheets (Taken 09/25/2021 1240) Discharge Planning Care Plan: ??? Identify discharge barriers ??? Patient/family/caregiver participation promotion ??? Assess need for help at home ??? Collaboration with Blood Bank Calendar Control Clerk/Case Management Problem: Musculoskeletal Goal: Musculoskeletal system functioning [...] Maintaining Flowsheets (Taken 09/22/20212000 by Juan Alcala, OZZIE) Discharge Planning Care Plan: Identify discharge barriers Patient/family/caregiver participation promotion Collaboration with Blood Bank Calendar Control Clerk/Case Management Problem: Musculoskeletal Goal: Musculoskeletal system functioning [...] for high fall risk Utilize bed/chair alarm [place] socks/Within arm's reach Mobilize patient Utilize assistive [...] discharge barriers Patient/family/caregiver participation promotion Collaboration with Blood Bank Calendar Control Clerk/Case Management Problem: Musculoskeletal Goal: Musculoskeletal system functioning [...] Lucero Demarco, OZZIE) Fall Risk Care Plan/Interventions: [place] socks/Within arm's reach Utilize bed/chair alarm 1:1 [...] patient centered goal for this shift:: safety (09/23/21 1514). Evaluation of patient goal progress : met [...] ??? Patient/family/caregiver participation promotion ??? Collaboration with Blood Bank Calendar Control Clerk/Case Management Problem: Musculoskeletal Goal: Musculoskeletal system functioning [...] (Taken 09/22/20212056) Fall Risk Care Plan/Interventions: ??? [place] socks/Within arm's reach ??? Utilize bed/chair alarm Patient Goals: The patient centered goal for this shift:: sleep (09/22/212057). Evaluation of patient goal progress met. Care Plan - Juan Alcala RN - 09/22/2021 8:01 PM CDT Problem: Discharge Planning Goal: No barriers to discharge Outcome: Progressing Flowsheets (Taken 09/22/20212000) Discharge Planning Care Plan: ??? Identify discharge barriers ??? Patient/family/caregiver participation promotion ??? Collaboration with Blood Bank Calendar Control Clerk/Case Management IVF running. CIWA assessments. IVPB phenobarbital [...] [facility] mEq/L 9:57 PM CDT [facility] LABORATORY Specimen Anatomical Collection Method / Collection Time Recei rehana Time (Source) Location / Volume Laterality Blood BLOOD SPECIMEN / Venipuncture / 09/24/2021 9:39 2021 9:44 Unknown Unknown PM CDT PM CDT Miquel Mckeon MD EC CHEMISTRY ORDERABLES Performing Organization Address City/[facility] Phon e Number [address] [address] LABORATORY MAGNESIUM (09/24/2021 6:17 AM CDT) athologist Signature Magnesium 1.8 1.8 - 2.7 09/24/[address] [facility] mg/dL 8:07 AM CDT [facility] Specimen Anatomical Collection Method / Collection Time Recei rehana Time (Source) Location / Volume Laterality Blood BLOOD SPECIMEN / Venipuncture / 09/24/2021 6:17 2021 6:24 Unknown Unknown AM CDT AM CDT Miquel Mckeon MD EC CHEMISTRY ORDERABLES Performing Organization Address City/State/[facility] Phon e Number [facility] [address] [address] LABORATORY (ABNORMAL) MAGNESIUM (09/23/2021 8:20 AM CDT) athologist Signature Magnesium 1.4 (L) 1.8 - 2.7 09/23/[address] [facility] mg/dL 8:49 AM CDT [facility] LABOR[facility]ORY Specimen Anatomical Collection Method / Collection Time Recei rehana Time (Source) Location / Volume Laterality Blood BLOOD SPECIMEN / Venipuncture / 09/23/2021 8:20 2021 8:24 Unknown Unknown AM CDT AM T Miquel Mckeon MD EC CHEMISTRY ORDERABLES Performing Organization Address City/State/ZIP Code Phon e Number [facility] [address] [place] [address] LABORATORY (ABNORMAL) RENAL FUNCTION PANEL (09/23/2021 8:20 AM CDT) Analysis Performed At [facility] Time Signature Sodium 138 134 - 143 09/23/2021 ST. mEq/L 8:49 AM [facility] LABORATORY Potassium 3.2 (L) 3.4 - 5.1 09/23/2021 ST. mEq/L 8:49 AM [facility] LABOR[facility] Chloride 101 99 - 110 09/23/2021 ST. mEq/L 8:49 AM [facility] Carbon Dioxide 26 19 - 29 09/23/2021 ST. mEq/L 8:49 AM [facility] LAB[facility] Anion Gap 11.0 3.0 - 15.0 09/23/2021 ST. mEq/L 8:49 AM [facility] LAB[facility]ORY Glucose 107 (H) 70 - 99 09/23/2021 ST. mg/dL 8:49 AM [facility] Creatinine 0.77 0.70 - 09/23/2021 ST. 1.20 mg/dL 8:49 AM [facility] LABOR[facility]ORY Glomerular >60 >60 09/23/2021 ST. Filtration Rate mL/min/1.7 8:[address] [facility] 3 *2 [facility] LABORATORY Comment: Complications of CKD and risk o f cardiovascular disease increase when GFR is below 60ml.min/1.73m2. A persistently re duced GFR is a specific indication of Chronic Kidney Disease. The eGFR calculation has not been validated in patients >70yrs. Blood Urea Nitrogen 4 (L) 5 - 24 mg/dL 09/23/2021 8:[address] [facility] LABORATORY Albumin 3.0 (L) 3.5 - 5.0 g/dL 09/23/2021 8:[address] [facility] [facility] Phosphorus 1.8 (L) 2.5 - 4.6 mg/dL 09/23/2021 8:49 AM [facility] Calcium 7.6 (L) 8.4 - 10.5 09/23/2021 8:[address] [facility] mg/dL [facility] LABORATORY Specimen Anatomical Collection Method / Collection Time Recei rehana Time (Source) Location / Volume Laterality Blood BLOOD SPECIMEN / Venipuncture / 09/23/2021 8:20 2021 8:24 Unknown Unknown AM CDT AM CDT Narrative [facility] LABORATOR Y - 09/23/2021 8:49 AM [...] Organization Address City/State/ZIP Code Phon e Number [place] [id number] [place] [address] LABORATORY (ABNORMAL) HEMOGRAM (09/23/2021 8:19 AM CDT) P athologist Signature WBC 5.4 3.2 - 11.0 09/23/2021 [facility] 10*9/L 8:30 AM [facility] LABORATORY RBC 3.98 (L) 4.14 - 5.76 09/23/2021 [facility] 10*12/L 8:30 AM [facility] LABORATORY HGB 12.8 (L) 12.9 - 16.9 09/23/2021 [facility] g/dL 8:30 AM [facility] LABORATORY HCT 36.3 (L) 38.4 - 49.7 09/23/2021 [facility] % 8:30 AM [facility] LABORATORY MCV 91.2 81.4 - 99.0 09/23/2021 [facility] fL 8:30 AM [facility] LABORATORY MCH 32.2 26.7 - 33.1 09/23/2021 [facility] pg 8:30 AM [facility] LABORATORY MCHC 35.3 31.6 - 35.5 09/23/2021 [facility] g/dL 8:30 AM [facility] LABORATORY RDW 13.0 11.3 - 14.6 09/23/2021 [facility] % 8:30 AM [facility] LABORATORY PLT 161 130 - 375 09/23/2021 [facility] 10*9/L 8:30 AM [facility] LABORATORY Specimen Anatomical Collection Method / Collection Time Recei rehana Time (Source) Location / Volume Laterality Blood BLOOD SPECIMEN / Venipuncture / 09/23/2021 8:19 2021 8:24 Unknown Unknown AM CDT AM CDT Miquel Mckeon MD EC HEMATOLOGY ORDERABLES Performing Organization Address City/State/ZIP Code Phon e Number [facility] [address] [place] [address] LABORATORY (ABNORMAL) COMPREHENSIVE METABOLIC PANEL (09/22/2021 5:59 AM CDT) P athologist Signature Sodium 136 134 - 143 09/22/2021 ST. mEq/L 6:30 AM [facility] LABORATORY Potassium 3.5 3.4 - 5.1 09/22/2021 ST. mEq/L 6:30 AM [facility] LAB[facility]ORY Chloride 96 (L) 99 - 110 09/22/2021 ST. mEq/L 6:30 AM [facility] LAB[facility] Carbon Dioxide 25 19 - 29 09/22/2021 ST. mEq/L 6:30 AM [facility] LAB[facility] Anion Gap 15.0 3.0 - 15.0 09/22/2021 ST. mEq/L 6:30 AM [facility] LAB[facility] Blood Urea 8 5 - 24 09/22/2021 ST. Nitrogen mg/dL 6:30 AM [facility] LAB[facility] Creatinine 0.89 0.70 - 09/22/2021 ST. 1.20 mg/dL 6:30 AM [facility] LABORATORY Glomerular >60 >60 09/22/2021 [facility]. Filtration Rate mL/min/1.7 6:[address] [facility] 3 m*2 [facility] LABORATORY Comment: Complications of CKD and risk o f cardiovascular disease increase when GFR is below 60ml.min/1.73m2. A persistently re duced GFR is a specific indication of Chronic Kidney Disease. The eGFR calculation has not been validated in patients >70yrs. Calcium 8.2 (L) 8.4 - 10.5 09/22/2021 6:[address] [facility] [facility] mg/dL [facility] LABORATORY Glucose 141 (H) 70 - 99 mg/dL 09/22/2021 6:[address] [facility]ORAT[facility] Protein, Total 7.0 6.0 - 8.0 09/22/2021 6:[address] [facility] g/dL [facility] LAB[facility]ATORY Albumin 3.7 3.5 - 5.0 09/22/2021 6:[address] [facility] g/dL [facility] LABORATORY Alkaline Phosphatase 63 40 - 150 IU/L 09/22/2021 6:[address] [facility]ORATORY Aspartate 159 (H) 10 - 40 IU/L 09/22/2021 6:[address] [facility] Aminotransferase [facility] Alanine Aminotransferase 66 (H) 6 - 40 IU/L 09/22/2021 6: [address] [facility]ORATORY Bilirubin, Total 2.3 (H) 0.2 - 1.2 09/22/2021 6:30 AM [facility] mg/dL [facility] LAB[facility]ATORY Specimen Anatomical Collection Method / Collection Time Recei rehana Time (Source) Location / Volume Laterality Blood BLOOD SPECIMEN / Venipuncture / 09/22/2021 5:59 2021 6:02 Unknown Unknown AM T AM [facility] Narrative [facility] LABORATOR Y - 09/22/2021 6:30 AM [facility] Current ADA criteria for Glucose: ?Normal: 70-99 mg/dL ?Impaired Fasting Glucose: 100-125 mg/dL ?Diabetes Mellitus: at or above 126 mg/dL The diagnosis of diabetes must be confir med on a subsequent day by measuring Fasting Plasma Glucose, 2-hr PG or random plasma glucose (if symptoms are present). Liam Rodriguez MD EC CHEMISTRY ORDERABLES Performing Organization Address City/[facility]/ZIP Code Phon e Number [facility] [address] [address] LABORATORY MAGNESIUM (09/22/2021 5:59 AM CDT) athologist Signature Magnesium 2.7 1.8 - 2.7 09/22/2021 [facility] mg/dL 6:48 AM CDT [facility] Specimen Anatomical Collection Method / Collection Time Recei rehana Time (Source) Location / Volume Laterality Blood BLOOD SPECIMEN / Venipuncture / 09/22/2021 5:59 2021 6:02 Unknown Unknown AM CDT AM CDT Liam Rodriguez MD EC CHEMISTRY ORDERABLES Performing Organization Address City/[facility]/ZIP Code Phon e Number [facility] [address] [address] LABORATORY RAPID SARS-COV-2 RNA (COVID-19), MOLECULAR DETECTION (09/22/2021 12:45 AM CDT) [facility] gist Method Time Signature SARS-CoV-2 Negative Negative/Not 09/22/2021 [facility]. RNA Detected 1:29 AM CDT [facility] (COVID-19) [facility] Comment: SARS-CoV-2 (COVID-19) target [...] AM CDT 12:49 AM CDT Unknown Narrative [facility] LABOR[facility] Y - 09/22/2021 1:29 AM CDT Test detects target RNA by real-time polymerase chain reaction (PCR) on the [employer] GeneXpert System. Results should be used in [...] for this test can be found at: https://www.fda.gov/medical-devices/lrbuuxjev-ruhkuafvud-inipwez-devices/emergen lk-dck-lqregczzqclsor Abdirahman Henriquez DO EC MICROBIOLOGY - GENERAL OR DERABLES Performing Organization Address City/State/ZIP Code Phon e Number [place] [address] LABORATORY EKG 12-LEAD (09/21/2021 11:23 PM CDT) P athologist Signature Ventricular Rate 116 BPM MUSE Atrial Rate 116 BPM MUSE P-R Interval 130 ms MUSE QRS Duration 90 ms MUSE QT 352 ms MUSE QTc 489 ms MUSE P [place] 10 degrees MUSE R [place] -13 degrees MUSE T [place] 33 degrees MUSE Specimen (Source) Anatomical Collection [...] determinate Abnormal ECG No previous ECGs available Abdirahman Henriquez DO IP ECG ORDERABLES Performing Organization Address [facility]/ZIP Code Phon e Number MUSE (ABNORMAL) ALCOHOL (09/21/2021 11:22 PM CDT) P athologist Signature Alcohol 29.0 (H) <=10.0 09/21/[address] [facility] mg/dL 11:42 PM CDT [facility] Specimen Anatomical Collection Method / Collection Time Recei rehana Time (Source) Location / Volume Laterality Blood BLOOD SPECIMEN / Venipuncture / 09/21/2021 11:22 09/21 Unknown Unknown PM CDT 11:25 PM CDT Abdirahman Henriquez DO EC CHEMISTRY ORDERABLES Performing Organization Address [facility] Phon e Number [facility] [address] [address] LABORATORY (ABNORMAL) MAGNESIUM (09/21/2021 11:22 PM CDT) P athologist Signature Magnesium 0.8 (LL) 1.8 - 2.7 09/22/[address] [facility] mg/dL 12:02 AM CDT [facility] Specimen Anatomical Collection Method / Collection Time Recei rehana Time (Source) Location / Volume Laterality Blood BLOOD SPECIMEN / Venipuncture / 09/21/2021 11:22 09/21 Unknown Unknown PM CDT 11:25 PM CDT Katrinahéctor Rigginsas DO EC CHEMISTRY ORDERABLES Performing Organization Address [facility] Phon e Number [facility] [address] [address] LABORATORY (ABNORMAL) PHOSPHORUS (09/21/2021 11:22 PM CDT) P athologist Signature Phosphorus 2.2 (L) 2.5 - 4.6 09/21/2021 [facility] mg/dL 11:46 PM T [facility] Specimen Anatomical Collection Method / Collection Time Recei rehana Time (Source) Location / Volume Laterality Blood BLOOD SPECIMEN / Venipuncture / 09/21/2021 11:22 09/21 Unknown Unknown PM CDT 11:25 PM CDT Abdirahman T Henriquez DO EC CHEMISTRY ORDERABLES Performing Organization Address City/[facility] Phon e Number [facility] [address] [address] LABORATORY (ABNORMAL) HEMOGRAM/DIFFERENTIAL (09/21/2021 11:22 PM CDT) [facility] gist Method Time Signature WBC 7.6 3.2 - 09/21/[address] 11.0 11:[address] [facility] 10*9/L [facility] RBC 3.85 (L) 4.14 - 09/21/[address] 5.76 11:[address] [facility] 10*12/L [facility] HGB 12.3 (L) 12.9 - 09/21/[address] 16.9 g/dL 11:28 PM [facility] HCT 34.9 (L) 38.4 - 09/21/[address] 49.7 % 11:28 PM [facility] MCV 90.6 81.4 - 09/21/[address] 99.0 fL 11:28 PM [facility] MCH 31.9 26.7 - 09/21/[address] 33.1 pg 11:28 PM [facility] MCHC 35.2 31.6 - 09/21/[address] 35.5 g/dL 11:28 PM [facility] RDW 13.0 11.3 - 09/21/[address] 14.6 % 11:28 PM [facility] PLT 163 130 - 375 09/21/2021 ST. 10*9/L 11:28 PM [facility] Neutrophils % 75.8 % 09/21/2021 ST. 11:28 PM [facility] Lymphocytes % 8.7 % 09/21/2021 ST. 11:28 PM [facility] Monocytes % 11.5 % 09/21/[address] 11:28 PM [facility] Eosinophils % 2.8 % 09/21/2021 ST. 11:28 PM [facility] Basophils % 0.7 % 09/21/2021 ST. 11:28 PM [facility] Immature 0.5 % 09/21/2021 ST. Granulocytes % 11:28 PM [facility] Neutrophils 5.7 1.5 - 7.6 09/21/2021 ST. Absolute 10*9/L 11:28 PM [facility] Lymphocytes 0.7 (L) 0.8 - 3.3 09/21/2021 ST. Absolute 10*9/L 11:28 PM [facility] Monocytes 0.9 0.2 - 0.9 09/21/2021 ST. Absolute 10*9/L 11:28 PM [facility] Eosinophils 0.2 0.0 - 0.4 09/21/2021 ST. Absolute 10*9/L 11:28 PM [facility] Basophils 0.1 0.0 - 0.1 09/21/2021 ST. Absolute 10*9/L 11:28 PM [facility] Immature 0.04 0.00 - 09/21/2021 ST[address] Granulocytes 0.06 11:[address] [facility] Absolute 10*9/L [facility] Specimen Anatomical Collection Method / Collection Time Recei rehana Time (Source) Location / Volume Laterality Blood BLOOD SPECIMEN / Venipuncture / 09/21/2021 11:22 09/21 Unknown Unknown PM CDT 11:25 PM CDT Abdirahman SCHULTZ HEMATOLOGY ORDERABLES Performing Organization Address City/State/ZIP Code Phon e Number [facility] [address] [address] LABORATORY (ABNORMAL) BASIC METABOLIC PANEL (09/21/2021 11:22 PM CDT) [facility] Method Time Signature Sodium 135 134 - 143 09/21/2021 ST. mEq/L 11:46 PM [facility] Potassium 3.2 (L) 3.4 - 5.1 09/21/2021 ST. mEq/L 11:46 PM [facility] Chloride 93 (L) 99 - 110 09/21/2021 ST. mEq/L 11:46 PM [facility] Carbon Dioxide 16 (L) 19 - 29 09/21/2021 ST. mEq/L 11:46 PM [facility] Anion Gap 26.0 (H) 3.0 - 15.0 09/21/2021 ST. mEq/L 11:46 PM [facility] Blood Urea 10 5 - 24 09/21/2021 ST. Nitrogen mg/dL 11:46 PM [facility] Creatinine 0.98 0.70 - 09/21/2021 ST. 1.20 mg/dL 11:46 PM [facility] Glomerular >60 >60 09/21/2021 [facility]. Filtration Rate mL/min/1.7 11:[address] [facility] 3 *2 [facility] Comment: Complications of CKD and risk o f cardiovascular disease increase when GFR is below 60ml.min/1.73m2. A persistently re duced GFR is a specific indication of Chronic Kidney Disease. The eGFR calculation has not been validated in patients >70yrs. Calcium 8.4 8.4 - 10.5 mg/dL 09/21/2021 11:46 PM [facility] Glucose 120 (H) 70 - 99 mg/dL 09/21/2021 11:46 PM [facility] Specimen Anatomical Collection Method / Collection Time Recei rehana Time (Source) Location / Volume Laterality Blood BLOOD SPECIMEN / Venipuncture / 09/21/2021 11:22 09/21 Unknown Unknown PM CDT 11:25 PM CDT Narrative [facility] LAB[facility] Y - 09/21/2021 11:46 PM [...] Organization Address City/State/ZIP Code Phon e Number [facility] [address] [place] [address] LABORATORY documented in this encounter Visit Diagnoses [...] Mon09/26/21 at 1716, Mild Pain (1-3), Fever acetaminophen (TYLENOL) tablet 650 mg 650 mg, Oral, EVERY 4 HOURS NEEDED, S tarting on Mon09/22/21 at 0217, Until Mon09/26/21 at 1716, Mild Pain (1-3), Fever amLODIPine [...] S tarting on Mon09/22/21 at 1121, Until Mon09/26/21 at 1716, Withdrawal, For systolic blood pressur [...] mg = 4 mg/kg ? 70.7 kg [place] weight), Intravenous, at 208.8 mL/hr, ONCE, 1 dose, On Mon09/22/21 at 2100 PHENobarbital Sodium (LUMINAL) New Bag 09/23/2021 1:03 AM CDT 286 mg 208.8 mL/hr 286 mg in sodium chloride 0.9% (NS) IVPB 286 mg (rounded from 282.8 mg = 4 mg/kg ? 70.7 kg [place] weight), Intravenous, at 208.8 mL/hr, ONCE, 1 dose, On Na 09/23/21 at 0000 PHENobarbital Sodium (LUMINAL) New 09/22/2021 6:20 PM CDT 494 mg 215.2 mL/hr 494 mg in sodium chloride 0.9% (NS) IVPB 494 mg (rounded from 494.9 mg = 7 mg/kg ? 70.7 kg [place] weight), Intravenous, at 215.2 mL/hr, ONCE, 1 [...] mg, Oral, ONCE DAILY, First dose on 09/25/21 at 0800, Until Discontinued Given 09/25/2021 8:58 [...] PHENobarbital (Luminal) tablet 64.8 mg(Linked Group 1) 903 (Given - Provider: Ana M Jackson RN - Comment: last order was completed and discontinued. Dose is being tapered down per /JUN.)2042 (Given - Provider: Diane Cox RN) 828 (Given - Provider: Ana M Jackson RN [...] Jackson RN)1529 (Given - Provider: Ana M Jackson, OZZIE)1743 (Given - Provider: Ana M Jackson, OZZIE) 20 mEq, Oral, EVERY 3 HOURS, 3 doses, Fi rst dose on Mon09/24/21 at 1200, Last dose on Mon09/24/21 at 1800 potassium chloride CR (K-Dur, Klor-Con M) tablet 20 mEq 0858 (Given - Provider: Ana M Jackson, OZZIE) 0829 (Given - Provider: Ana M Jackson [...] IV Infusing)2127 (Given - Provider: [place] Landry, RN) 0859 (Given - Provider: Ana M Jackson RN)1443 (Given - Provider: Ana M Jackson RN)2044 (Given - Provider: Diane Cox RN) 0834 (Given - Provider: Ana M Jackson, OZZIE) 3 mL, IV Flush, EVERY 8 HOURS, [...] mg 0858 (Given - Provider: Ana M Jackson, OZZIE) 0829 (Given - Provider: Ana M Jackson RN) [...] S tarting on Mon09/22/21 at 1121, Until Mon09/26/21 at 1716, Withdrawal, For systolic blood pressure greater than 180 or diastolic greater than 105 LORazepam (Ativan) injection 0.5-1 mg 0.5-1 mg, IV Push, EVERY 4 HOURS NEED ED, Starting on Mon09/23/21 at 1825, Until 09/26/21 at 1716, Withdrawal, Agitation, Anxiety, Seizures LORazepam (Ativan) tablet 1 mg 1 mg, Oral, EVERY 4 HOURS NEEDED, Sta rting on Mon09/23/21 at 1800, Until Mon09/26/21 at 1716, Anxiety ondansetron (Zofran ODT) disintegrating [...] Each 1 09/25/19 acetaminophen (Tylenol) 160 MG/5ML 09/22/2021 suspension 650 mg acetaminophen (Tylenol) suppository 650 mg 09/22 acetaminophen (TYLENOL) tablet 650 mg 1 09/22/2021 cloNIDine (Catapres) tablet 0.2 mg 1 09/22/2021 LORazepam (Ativan) injection 1-4 mg 1 09/22/2021 magnesium sulfate 6 g in sodium chloride 1 022 0.9% (NS) 250 mL IVPB ondansetron (ZOFRAN) injection 4 mg 09/22/2021 PHENobarbital (Luminal) tablet 32.4 mg sodium chloride 0.9% IV FLUSH (NS) SYRINGE 1 09/22 3 mL Admission Count Last Ordered Date First Ordered Date ADMIT TO INPATIENT 1 09/23/2021 Transfer Count Last Ordered Date First Ordered Date ED BED REQUEST 09/22/2021 Discharge Count Last Ordered Date First Ordered Date DISCHARGE PATIENT 1 09/26/2021 Diet Count Last Ordered Date First Ordered Date DIET/NPO STATUS ESS 1 09/26/2021 Nursing Count Last Ordered Date First Ordered Date ACTIVITY TOLERATED 1 09/26/2021 DISCHARGE CODE STATUS 09/26/2021 INSERT PERIPHERAL IV 1 09/21/2021 Consult Count Last Ordered Date First Ordered Date IP CONSULT TO CHEMICAL DEPENDENCY 1 09/22/2021 PHARMACIST MEDICATION RECONCILIATION 1 09/22/2021 documented in this encounter
--- OUTSIDE RECORDS SUMMARY | 2022-04-01 12:42 | XMS_ITS | Encounter Summary ---
:1960 Author Organization [place] Address [address] [place] [address] Care Team Providers Name Role Phone No Ref-Primary, Physician Primary Care Provider [phone] Juan Farias MD Unavailable Edilia Trejo APRN AUTOMATIC LUMP MAKING MACHINE TENDER Unavailable Glendy vailable Juan Farias MD Unavailable Denise Connell-C Unavailable [phone] Edilia Trejo APRN AUTOMATIC LUMP MAKING MACHINE TENDER Unavailable Glendy vailable Denise Connell-C Unavailable [phone] Juan Farias MD Primary Care Provider Dana Barry PA-C Unavailable [phone] Encounter Details Date Type Department Care Team Description 07/29/2005 Office Visit-[facility] Heart Unknown, Iva lockett MD [address] [address] Social History Tobacco Use Types Packs/Day Years Used Date Smoking Tobacco: Never Assessed Sex Assigned at Date Recorded Not on file documented as of this encounter Progress Notes Unknown, DoctorMD - 08/02/2005 5:56 AM CDT Progress Note Created by: Juan Farias M.D. DATE: 07/29/2005 SARAH BETH BROWN DATE OF : 1960 AGE: [age] years old Referring Physician: JEROME MORENO Referring Clinic: [facility] CURRENT DIAGNOSES 1. - Hypercholesterolemia, [...] is regular. He has no cardiac murmurs. 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 Infection erroneous MRSA 05/13/2021 05/13/2021 Rule Out C-difficile 12/06/2021 12/06/2021 12/07/2021 8:46 AM CDT documented as of this encounter Care Teams Insurance Claims Analyst Relationship Specialty Start Date End Date No Ref-Primary, PCP - General 07/03/14 12/03/21 Physician Juan Farias MD PCP - General Cardiovascular Disease 12/04/[address] [place] [id number] Juan Farias MD Assigned Heart and 02/14/20 10/03/[address] Vascular Provider [address] [place] [id number] Maya, Assigned Heart and 10/04/20 Edilia Chapman APRN Vascular Provider AUTOMATIC LUMP MAKING MACHINE TENDER NO INFO AVAILABLE 02/10/2022 Juan Farias MD Assigned Heart and 04/04/21 07/31/[address] Vascular Provider [address] [place] [address] Denise Connell Physician Interior Design Program Chair Cardiovascular Disease 08/12/21 MARIETTA Watson [address] [place] [id number] Maya Assigned Heart and 08/01/21 2 Edilia Chapman APRN Vascular Provider AUTOMATIC LUMP MAKING MACHINE TENDER NO INFO AVAILABLE 02/10/2022 Denise Connell Assigned Heart and 08/22/21 01/14/22 MARIETTA Watson Vascular Provider [address] [place] [id number] Dana Barry Assigned Heart and 01/15/22 MARIETTA Teague Vascular Provider [address] [place] [id number] documented as of this encounter
--- OUTSIDE RECORDS SUMMARY | 2022-04-01 12:42 | XMS_ITS | Encounter Summary ---
:1960 Author Organization [place] Address [address] [place] [address] Care Team Providers Name Role Phone Unavailable Primary Care Provider Unavailable Reason for Referral (Routine) - Closed Specialty Diagnoses / Procedures Referred By Contact Refer red To Contact Diagnoses Anemia, unspecified Parminder Wiseman MD [facility] [address] [place] [address] Referral ID Status Reason Start Date Expiration Date Visits V isits Requested Authorized [id number] Closed Consult Only 08/01/2006 01/31/2007 1 1 (Routine) - Closed Specialty Diagnoses / Procedures Referred By Contact Refer red To Contact Diagnoses Anemia, unspecified Parminder Wiseman MD [facility] [address] [place] [address] Referral ID Status Reason Start Date Expiration Date Visits V isits Requested Authorized [id number] Closed Consult Only 08/01/2006 05/03/2007 1 1 Reason for Visit Reason Comments RECHECK f/u abnormal lab results on 07/31/2006 Encounter Details Date Type Department Care Team Description 08/01/[address] [facility] Parminder Wiseman (Primary Dx); Clinic [facility] Kavon Rabago MD DIZZINESS AND GIDDINESS; [address] [facility] GRACE ALVAREZ MELENA, BLOOD IN STOOL [place], [place] [address] [address] [phone] YAMINI Garcia [place], [place] [address] (Wo rk) Social History [...] 325 MG OR, IMMUNOS OCCULT BLOOD, CONSULT [facility], BLOOD SMEAR, PERIPHERAL, INTERPRETATION, [...] which will need evaluation. Parminder Wiseman MD [facility] documented in this encounter Nursing [...] REPORT documented in this encounter Results CONSULT [facility] (08/30/2006) Narrative This result has an attachment that is no t available. Parminder Wiseman MD REFERRAL (ABNORMAL) CBC WITH PLATELETS, DIFF (08/01/2006 12:16 PM CDT) P athologist Signature WBC 9.2 4.0 - 11.0 [place] 10e9/L [facility] RBC Count 2.07 (L) 4.4 - 5.9 [place] 10e12/L [facility] Hemoglobin 6.4 (LL) 13.3 - 17.7 [place] g/dL [facility] Comment: Results confirmed by repeat patricia t Hematocrit 19.9 (L) 40.0 - 53.0 % [facility] MCV 96 78 - 100 fl [facility] MCH 30.9 26.5 - 33.0 pg [facility] MCHC 32.2 31.5 - 36.5 [facility] g/dL [facility] RDW 14.4 10.0 - 15.0 % [facility] Platelet Count 337 150 - [address] LAB % Neutrophils 62 40 - 75 % [facility] % Lymphocytes 24 20 - 48 % [facility] % Monocytes 11 0 - 12 % [facility] % Eosinophils 3 0 - 6 % [facility] Absolute Neutrophil 5.7 1.6 - 8.3 [facility] 10e9[facility] Absolute Lymphocytes 2.2 0.8 - 5.3 [facility] 10e9[facility] Absolute Monocytes 1.0 0.0 - 1.3 [place] DGES 10e9/[facility] Absolute Eosinophils 0.3 0.0 - 0.7 [facility] 10e9[facility] Anisocytosis Slight [facility] Basophilic Stipling Present [facility] RBC Morphology Slide to be reviewed by F [facility] Pathologist [facility] Platelet Estimate Normal [facility] Diff Method Manual Differential [facility] CORRECTED ON 08/01 AT 1945: PREVIOUSLY REPORTED Manual Method HOSPITAL LAB Specimen Anatomical Collection Method Collection Time Receive d Time (Source) Location / / Volume Laterality 08/01/2006 12:16 08/01/2006 PM CDT 12:18 PM CDT Parminder Wiseman MD LABORATORY Performing Organization Address City/[facility]/ZIP Code Phon e Number M [facility] [address] [place], [place] [address] [facility] (ABNORMAL) IMMUNOS OCCULT BLOOD (08/01/2006 12:15 PM CDT) [facility] Signature Occult Blood Positive (A) NEG [place] Slide 1 [facility] Slide 1 Date 08/01/06 [facility] Occult Blood NOT DONE NEG [place] Slide 2 [facility] Slide 2 Date NOT DONE [facility] Occult Blood NOT DONE NEG [place] Slide 3 [facility] Slide 3 Date NOT DONE [facility] Specimen Anatomical Collection Method Collection Time Receive d Time (Source) Location / / Volume Laterality 08/01/2006 12:15 08/01/2006 PM CDT 12:17 PM CDT Parminder Wiseman MD LABORATORY Performing Organization Address City/[facility]/ZIP Code Phon e Number [facility] [address] [place] [address] [facility] BLOOD SMEAR, PERIPHERAL, INTERPRETATION, PHYSICIAN W/ WRITTEN REPORT (08/01/2006 12:15 PM CDT) [facility] Signature Blood Slide to be [place] Morphology reviewed by [facility] Smear Pathologist [facility] Specimen Anatomical Collection Method Collection Time Receive d Time (Source) Location / / Volume Laterality 08/01/2006 12:15 08/01/2006 PM CDT 12:17 PM CDT Parminder Wiseman MD LABORATORY Performing Organization Address City/State/ZIP Code Phon e Number M [facility] [address] [place], [place] [address] [facility] (ABNORMAL) RETICULOCYTE COUNT (08/01/2006 12:15 PM CDT) [facility] Time Signature % Retic 2.6 (H) 0.5 - 2.0 [place] % [facility] Absolute 50.4 25 - 95 [place] Retic 10e9/L [facility] Method Automated [facility] LAB Specimen Anatomical Collection Method Collection Time Receive d Time (Source) Location / / Volume Laterality 08/01/2006 12:15 08/01/2006 PM CDT 12:17 PM CDT Parminder Wiseman MD LABORATORY Performing Organization Address City/State/ZIP Code Phon e Number [facility] [address] [place], [place] [address] [facility] (ABNORMAL) IRON & TIBC (08/01/2006 12:15 PM CDT) athologist Signature Iron 119 35 - 180 [facility] ug/dL [facility] Iron Binding 242 240 - 430 [place] Cap ug/dL [facility] Iron Saturation 49 (H) 15 - 46 % [facility] LAB Specimen Anatomical Collection Method Collection Time Receive d Time (Source) Location / / Volume Laterality 08/01/2006 12:15 08/01/2006 PM CDT 12:17 PM CDT Parminder Wiseman MD LABORATORY Performing Organization Address City/State/ZIP Code Phon e Number [facility] [address], [place] [address] [facility] (ABNORMAL) FERRITIN (08/01/2006 12:15 PM CDT) athologist Signature Ferritin 1671 (H) 20 - 300 [facility] ng/mL [place] [facility] Specimen Anatomical Collection Method Collection Time Receive d Time (Source) Location / / Volume Laterality 08/01/2006 12:15 08/01/2006 PM CDT 12:17 PM CDT Parminder Wiseman MD LABORATORY Performing Organization Address City/State/ZIP Code Phon e Number [facility] [address] [place] [address] [facility] BLOOD SMEAR, PERIPHERAL, INTERPRETATION, PHYSICIAN W/ WRITTEN REPORT (08/01/2006 12:00 AM CDT) Component Value Ref Test Analysis Performed At [facility] gist Range Method Time Signature Copath Report Patient Name: SARAH BETH BROWN MR#: [id number] Specimen #: [id number] Collected: 08/01/2006 Received: 08/02/2006 Reported: 08/02/2006 16:00 Ordering Phy(s): PARMINDER WISEMAN TEST(S): Morphology Exam ([facility]) FINAL DIAGNOSIS: Peripheral blood - Normochromic, [...] seen; occasional fine basophilic sti ppling; no Boyle-Turley bodies seen; rouleaux appears increased. PLATELETS: ??The [...] ?? (0-2) JKW/kalina 08-02-06 TESTING LAB LOCATION: [address] ??[id number] COLLECTION SITE: Client: ??[facility] Location: ??CRFP (R) Specimen (Source) Anatomical [...] MRSA-Contact IsolationComment: 0 04/26/2021 11:03 AM PRODUCTION LEADER Infection erroneous documented as of this encounter
== END 2022-03-24 10:32 | disposition home or self-care (01) ==
PROVIDERS: Visit Provider Family Medicine
DX: F10.239 Alcohol dependence with withdrawal, unspecified (principal); R41.82 Altered mental status, unspecified
CPT/HCPCS: A0425; A0427